=== PATIENT | male | born 1965 | race Caucasian/White ===

== ENCOUNTER 2023-03-11 08:32 | Outpatient (OUT) | payer BC, SELFPAY ==
[2023-03-12 10:59] LABS: PSA, Free 0.81 ng/mL
== END 2023-03-11 08:33 ==
LOC: LAB 08:36
PROVIDERS: PCP Family Medicine; Visit Provider Urology
DX: R97.20 Elevated prostate specific antigen [PSA] (principal)
CPT/HCPCS: 36415; 84402; 84403

== ENCOUNTER 2023-06-19 10:22 | Outpatient (OUT) | payer BC, SELFPAY ==
--- NOTE | 2023-06-19 10:28 | ECG_ITS ---
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
--- NOTE | 2023-06-19 10:54 | PM.PRESUREVA ---
History of Present Illness History of Present Illness Chief complaint: elevated PSA Narrative: Patient presents for preadmission testing. Please see HPI from Dr. Craig dated 06/08/2023. 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 He states he had a follow-up PET scan and there was a suspicious area on his prostate and he had an elevated PSA. Review of Systems ROS Narrative Please see ROS from Dr. Craig dated 06/08/2023. PFSH PFS Medical History (Updated 06/19/23 @ 10:38 by Amee Lu NP) Surgical History (Updated 06/19/23 @ 10:38 by Amee Lu NP) Family History (Updated 06/19/23 @ 10:38 by Amee Lu NP) Other Family history of hypertension Family history of prostate cancer Social History (Updated 06/19/23 @ 10:33 by Amee Lu NP) Within the past year, how often did you have a drink containing alcohol: 2-4 times a month Smoking status: Former smoker Highest level of school completed/degree received: high school graduate Meds Home Medications and Allergies Home Medications Medication Instructions Recorded Confirmed Type amlodipine 10 mg tablet 10 mg PO DAILY 06/19/23 06/19/23 History lisinopril 40 mg tablet 40 mg PO DAILY 06/19/23 06/19/23 History pravastatin 20 mg tablet 20 mg PO DAILY 06/19/23 06/19/23 History tamsulosin 0.4 mg capsule (Flomax) 0.4 mg PO DAILY 06/19/23 06/19/23 History Allergies Allergy/AdvReac Type Severity Reaction Status Date / Time No Known Drug Allergies Allergy Verified 06/19/23 10:29 Exam Narrative Exam Narrative: Constitutional: Awake, alert, comfortable, well-appearing, Very pleasant, nontoxic, interactive, vital signs as charted Head: Normocephalic, atraumatic Neck: Supple, normal appearance, normal range of motion, no meningeal signs, no lymphadenopathy Respiratory: No respiratory distress, breath sounds clear Cardiovascular: Regular rate and rhythm, strong and regular heart tones Abdomen: Nontender, normal bowel sounds, soft, no CVA tenderness Musculoskeletal: Normal gait, no swelling or edema Skin: No rashes or induration, no lesions, only visible skin inspected Neuro: No neurological deficits, normal sensation Psychiatric: Oriented ?3, normal affect Assessment and Plan Assessment and Plan (1) Elevated PSA: Plan MRI fusion transperineal prostate biopsy scheduled with Dr. Craig 06/28/2023.
[2023-06-19 11:30] LABS: Basophils Percent Auto 0.5 % (0.2-2.0); Eosinophils Absolute Auto 0.4 10^3/uL (0.0-0.7); Eosinophils Percent Auto 5.9 % (0.9-7.0); Hemoglobin 13.6 g/dL (14.0-18.0); Immature Granulocytes Abs Auto 0.01 10^3/uL (0.00-0.03); Immature Granulocytes Pct Auto 0.2 % (0.0-0.5); Lymphocytes Absolute Auto 0.9 10^3/uL (1.2-3.8); Lymphocytes Percent Auto 13.3 % (20.5-60.0); Mean Corpuscular Volume 85.3 fL (80.0-94.0); Mean Platelet Volume 8.8 fL (9.5-13.5); Monocytes Absolute Auto 0.6 10^3/uL (0.3-0.8); Neutrophils Absolute Auto 4.5 10^3/uL (1.4-6.5); Neutrophils Percent Auto 70.1 % (43.0-75.0); Platelet Count 181 10^3/uL (150-450); Red Blood Count 4.69 10^6/uL (4.70-6.10); Red Cell Distribution Width 13.7 % (11.0-15.0); White Blood Count 6.4 10^3/uL (4.0-11.0)
[2023-06-19 11:48] LABS: BUN Creatinine Ratio 18.7; Calcium 9.3 mg/dL (8.5-10.1); Carbon Dioxide 29.4 mmol/L (21.0-32.0); Chloride 102 mmol/L (98-107); Estimated GFR (African America >60 (>=60); Estimated GFR (Non-African Ame >60 (>=60); Glucose 94 mg/dL (74-106); Potassium 4.4 mmol/L (3.5-5.1); Sodium 135 mmol/L (136-145)
== END 2023-06-19 10:23 | disposition home or self-care (01) ==
PROVIDERS: PCP Family Medicine; Visit Provider Urology
DX: Z01.810 Encounter for preprocedural cardiovascular examination (principal); Z01.812 Encounter for preprocedural laboratory examination; R97.20 Elevated prostate specific antigen [PSA]; I10 Essential (primary) hypertension
CPT/HCPCS: 36415; 80048; 85025; 93005; G0463

== ENCOUNTER 2023-06-28 11:25 | Day surgery (SDC) | payer BC, SELFPAY ==
[2023-06-19 10:51] VITALS: BP 125/79; PULSE 63; RESP 18; TEMP 36.5; O2SAT 98; BMI 26.0
[2023-06-28] VITALS (8 sets, daily range): BP systolic 127–177; BP diastolic 73–107; PULSE 49–68; RESP 12–22; TEMP 36.1–36.5; O2SAT 98–100
[2023-06-28] MEDS: LACTATED RINGER'S SOLUTION 1,000 ML 50 ML IV (12:08)
[2023-06-28] MEDS: CEFAZOLIN SODIUM/DEXTROSE,ISO 2 GM/50 ML PIGGYBACK IV (13:11)
[2023-06-28] MEDS: LIDOCAINE HCL 1% 100 MG/10 ML MDV INJ (13:34)
[2023-06-28] MEDS: BACITRACIN OINTMENT 28.4 GM TUBE 1 APPLIC TOPICAL (13:53)
--- NOTE | 2023-06-28 14:02 | PM.URSON ---
Urology Surgery Operative Note Operative Note Procedure Date: 06/28/23 Time Out Performed: yes Pre-op Diagnosis: 1. Elevated PSA 2. Abnormal MRI Post-op Diagnosis: same as pre-op Procedures performed: 1. MRI fusion prostate biopsy, transperineal approach 2. Ultrasound for needle prostate biopsy, transperineal approach 3. Transrectal ultrasound of prostate and seminal vesicles 4. Nerve block of prostate Anesthesia: MAC (Dr. Burgos) Primary Surgeon: Norma Craig Complications: none Estimated blood loss (mL): 1 Findings: Scattered prostate calcifications, small cysts in the anterior and transition zones, as well as SV bases. No discrete hypoechoic lesions. CHRISTIANNE benign. Uneventful biopsy per below. Specimens: 1. Right posterior medial (2 cores) 2. Right posterior lateral (2 cores) 3. Right base (2 cores) 4. Right anterior lateral (2 cores) 5. Right anterior medial (2 cores) 6. Left anterior medial (2 cores) 7. Left anterior lateral (2 cores) 8. Left base (2 cores) 9. Left posterior lateral (2 cores) 10. Left posterior medial (2 cores) 11. TOLU 1- left peripheral zone (4 cores) Indications for Procedures: 58 year old male with history of elevated PSA 3.8, 16% free on 04/20/2022, repeat on 03/11/23 was 3.0, 27% free, PSA density 0.06. However MP-MRI prostate 05/16/23 showed PIRADS 4 lesion at the left peripheral zone, mid gland. Prostate volume 53 ml. CHRISTIANNE benign. After discussion of risks/benefits of management options and biopsy approaches, he elected to proceed with MRI fusion transperineal prostate biopsy. Risks were discussed to include but not limited to bleeding, pain, infection, damage to surrounding structures, hematuria, difficulty urinating, ecchymosis, swelling, injury from positioning, and need for additional procedures. Detailed description of Procedure: After informed consent was obtained, the patient was brought to the operating suite and transferred onto the operating table in supine position. Sequential compression devices were placed on bilateral lower extremities. He received the appropriate dose of preoperative IV antibiotics (Cefazolin 2 g) and MAC was induced. He was positioned in the dorsal lithotomy position with scrotum secured out of the perineum with tape, and the appropriate pressure points padded, prepped and draped in the usual fashion for this procedure. An operative timeout was performed confirming the patient's identity, procedure and safety checks. A digital rectal exam was performed noting mildly enlarged prostate, no firm nodules. The [employer] MRI fusion biopsy system was set up on the patient's right side for transperineal approach of prostate biopsy. A well lubricated biplane transrectal ultrasound probe was inserted into the rectum and the prostate was aligned. The gland was visualized fully in axial and sagittal views to allow for identification of anatomy, volume and location of the urethra as noted in findings. The skin followed by periprostatic local anesthetic lidocaine 1% was delivered. The Precision Point device was placed on the ultrasound probe for transperineal approach. After rendering of real-time images with the preoperative MRI prostate, the UroNav fusion biopsy system was used to target the region of interest. Four core needle biopsies were obtained from the region of interest. Thereafter two biopsies were obtained in a systematic fashion from 10 regions of the prostate including the medial and lateral aspects of the anterior and posterior prostate, as well as base of the right and left lobes. The ultrasound probe was removed and the perineum was cleaned and dressed with antibiotic ointment, fluffs and scrotal support. The patient was awakened from anesthesia and sent to PACU in stable condition. Plan: Void prior to discharge home. Follow up in 1-2 weeks for pathology review. Other Provider present: No Post Operative care instructions: see discharge instructions
--- NOTE | 2023-06-28 14:20 | PC.NURSE ---
has mesh panties on over dressing; no drainage
--- NOTE | 2023-06-28 14:26 | PC.NURSE ---
Voided clear yellow urine in urinal; c/o burning and urgency
--- NOTE | 2023-06-28 14:38 | PC.NURSE ---
scant amount pinish/ red drainage noted on rectal dressing
--- NOTE | 2023-06-28 15:07 | PC.NURSE ---
4X4'S AND CLEAN MESH PANTIES ON; NO ACTIVE DRAINAGE NOTED
== END 2023-06-28 15:09 | disposition home or self-care (01) ==
PROVIDERS: PCP Family Medicine; Visit Provider Urology
PROC: (CPT 55700; principal; 2023-06-28 12:30)
DX: R97.20 Elevated prostate specific antigen [PSA] (principal); I10 Essential (primary) hypertension; Z87.891 Personal history of nicotine dependence; N40.1 Benign prostatic hyperplasia with lower urinary tract symptoms; E78.5 Hyperlipidemia, unspecified; R35.1 Nocturia; R39.12 Poor urinary stream; Z80.42 Family history of malignant neoplasm of prostate; H91.90 Unspecified hearing loss, unspecified ear; R31.21 Asymptomatic microscopic hematuria; Z85.89 Personal history of malignant neoplasm of other organs and systems
CPT/HCPCS: 55700; 36415; 88305; J2704

== ENCOUNTER 2023-08-11 08:30 | Outpatient (OUT) | payer BC, SELFPAY ==
[2023-08-11 08:55] LABS: Basophils Percent Auto 0.6 % (0.2-2.0); Eosinophils Absolute Auto 0.3 10^3/uL (0.0-0.7); Eosinophils Percent Auto 5.8 % (0.9-7.0); Hematocrit 42.3 % (42.0-54.0); Hemoglobin 14.5 g/dL (14.0-18.0); Immature Granulocytes Abs Auto 0.01 10^3/uL (0.00-0.03); Immature Granulocytes Pct Auto 0.2 % (0.0-0.5); Lymphocytes Percent Auto 20.7 % (20.5-60.0); Mean Corpuscular HGB Conc 34.3 g/dL (29.9-35.2); Mean Corpuscular Hemoglobin 29.5 pg (25.9-34.0); Mean Corpuscular Volume 86.2 fL (80.0-94.0); Mean Platelet Volume 8.2 fL (9.5-13.5); Monocytes Absolute Auto 0.5 10^3/uL (0.3-0.8); Monocytes Percent Auto 11.4 % (1.7-12.0); Neutrophils Absolute Auto 2.8 10^3/uL (1.4-6.5); Neutrophils Percent Auto 61.3 % (43.0-75.0); Platelet Count 166 10^3/uL (150-450); Red Blood Count 4.91 10^6/uL (4.70-6.10); Red Cell Distribution Width 12.6 % (11.0-15.0); White Blood Count 4.6 10^3/uL (4.0-11.0)
[2023-08-11 09:52] LABS: Estimated Average Glucose 100 mg/dL; Glycohemoglobin A1C 5.1 % (4.5-6.2)
[2023-08-11 10:45] LABS: Alanine Aminotransferase 27 U/L (16-63); Albumin Globulin Ratio 1.3; Albumin Level 4.2 g/dL (3.4-5.0); Alkaline Phosphatase 72 U/L (46-116); Anion Gap 11.6; Aspartate Amino Transferase 16 U/L (15-37); BUN Creatinine Ratio 16.3; Bilirubin Total 0.7 mg/dL (0.2-1.0); Calcium 9.3 mg/dL (8.5-10.1); Carbon Dioxide 28.5 mmol/L (21.0-32.0); Chloride 103 mmol/L (98-107); Chol HDL Ratio 2.8; Cholesterol 188 mg/dL (<=200); Estimated GFR (African America >60 (>=60); Estimated GFR (Non-African Ame 57 (>=60); Globulin 3.3 g/dL; Glucose 96 mg/dL (74-106); HDL Cholesterol 67 mg/dL (40-60); Potassium 4.1 mmol/L (3.5-5.1); Sodium 139 mmol/L (136-145); Total Protein 7.5 g/dL (6.4-8.2); Triglycerides 64 mg/dL (<=150); VLDL CHOLESTEROL 12.8 mg/dL
[2023-08-11 11:02] LABS: Prostate Specific Antigen Scrn 3.97 ng/mL (<=4.00)
== END 2023-08-11 08:31 | disposition home or self-care (01) ==
PROVIDERS: PCP Family Medicine; Visit Provider Family Medicine
DX: R53.83 Other fatigue (principal); Z79.899 Other long term (current) drug therapy; E78.5 Hyperlipidemia, unspecified; R73.09 Other abnormal glucose; Z12.5 Encounter for screening for malignant neoplasm of prostate
CPT/HCPCS: 36415; 80053; 80061; 83036; 85025; G0103

== ENCOUNTER 2024-06-01 09:04 | Outpatient (OUT) | payer OTHER, SELFPAY ==
--- OUTSIDE RECORDS SUMMARY | 2024-06-01 09:11 | XMS_ITS | CCD ---
Author Organization [facility] Care Team Providers Care [employer] Bi Consultant Name Role Phone Naty Burton Primary Care Physician Naty Burton MD Primary Care Provider [phone] Demi CHEN, Yadi Unavailable Rian ROUSSEAU, Chiqui Oneill Unavailable Indio KELLEY, Elizabeth Unavailable Jason VICK, Vanesa Dowling Unavailable July Vanessa Unavailable Unavailable JOSEPHINE ., DR ALFONSO Attending Unavailable HOY ., DR ALFONSO Admitting Unavailable HOY ., DR ALFONSO Primary Care Unavailable HOY ., DR ALFONSO Consulting Unavailable WEST, DR FRANCINE Moran Consulting Unavailable HOY ., DR ALFONSO Consulting Unavailable HOY ., DR ALFONSO Attending Unavailable HOY ., DR ALFONSO Admitting Unavailable HOY ., DR ALFONSO Primary Care Unavailable MARCO ANTONIO Longoria, DR NICOLA Tran Attending Unavaila scooby Longoria, DR NICOLA Tran Admitting Unavaila scooby Longoria, DR NICOLA Tran Consulting Unavaila ble HOEdgar ., DR ALFONSO Primary Care Unavailable TIMMIS, DR KEDNALL Admitting Unavailable TIMMIS, DR KENDALL Consulting Unavailable TIMMIS, DR KENDALL Attending Unavailable HOY ., DR ALFONSO Primary Care Unavailable ZISANTANA, DR JULIO Gay Consulting Unavailable HOY ., DR ALFONSO Attending Unavailable HOY ., DR ALFONSO Admitting Unavailable HOY ., DR ALFONSO Primary Care Unavailable HOY ., DR ALFONSO Consulting Unavailable WEST, DR FRANCINE Moran Consulting Unavailable TIMMIS, DR KENDALL Consulting Unavailable TIMMIS, DR KENDALL Attending Unavailable TIMMIS, DR KENDALL Admitting Unavailable HOY ., DR ALFONSO Primary Care Unavailable LIZETT MILLER Consulting Unavailable PJ BARDALES Consulting Unavailable Naty Burton MD Primary Care Provider [phone] Naty Burton MD Primary Care Provider [phone] Galo CHEN, Yadi Unavailable [phone] MD Lee Esposito Attending Provider MD Naty Burton Primary Care Provider [phone] Galo CHEN, Yadi Unavailable [phone] Rian ROUSSEAU, Chiqui Oneill Unavailable Norma Craig Attending Unavailable Lue, Norma MVon Attending Unavailable LueNorma MVon Attending Unavailable LueNorma MVon Attending Unavailable LueNorma MVon Attending Unavailable Norma Craig Attending Unavailable Naty Burton MD Primary Care Provider [phone] Naty Burton MD Primary Care Provider [phone] MD Naty Burton Primary Care Provider [phone] NICANOR Gomez Attending Provider Vanesa Gomez Admitting Unavailable Vanesa Gomez Attending Unavailable Josephine, Naty M Primary Care Unavailable Lee Esposito Admitting Unavailable Lee Esposito Attending Unavailable Josephine, Naty M Primary Care Unavailable TIMMIS, ENOCH H Attending Unavailable TIMMIS, ENOCH H Attending Unavailable TIMMIS, ENOCH H Attending Unavailable TIMMIS, ENOCH H Attending Unavailable TIMMIS, ENOCH H Attending Unavailable TIMMIS, ENOCH H Attending Unavailable TIMMIS, ENOCH H Attending Unavailable TIMMIS, ENOCH H Attending Unavailable JOSEPHINE, NATY M Primary Care Unavailable KARAMLOU, ELIZABETH Referring Unavailable VANESA GOMEZ Attending Unavailable JOSEPHINE, NATY M Primary Care Unavailable KARAMLOU, ELIZABETH Referring Unavailable HOEdgar, NATY M Primary Care Unavailable TOM MEDINA Attending VANESA Lott Referring Unavailable JOSEPHINE, NATY M Primary Care Unavailable KARAMLOU, ELIZABETH Referring Unavailable VANESA GOMEZ Attending Unavailable KARAMLOU, ELIZABETH Attending Unavailable KARAMLOU, ELIZABETH Referring Unavailable HOY, NATY M Primary Care Unavailable KARAMLOU, ELIZABETH Referring Unavailable HOY, NATY M Primary Care Unavailable HOY, NATY M Primary Care Unavailable KARAMLOU, ELIZABETH Referring Unavailable CELESTINA HALLMAN Attending Unavailable HOY, NATY M Primary Care Unavailable KARAMLOU, ELIZABETH Referring Unavailable HOY, NATY M Primary Care Unavailable HOY, NATY M Primary Care Unavailable KARAMLOU, ELIZABETH Referring Unavailable HOY, NATY M Primary Care Unavailable KARAMLOU, ELIZABETH Referring Unavailable HOY, NATY M Primary Care Unavailable HOY, NATY M Primary Care Unavailable JASON, VANESA M Referring Unavailable HOY, NATY M Primary Care Unavailable KARAMLOU, ELIZABETH Referring Unavailable KARAMLOU, ELIZABETH Attending Unavailable HOY, NATY M Primary Care Unavailable KARAMLOU, ELIZABETH Referring Unavailable LOW, SEE-JEYSON Attending Unavailable LOW, SEE-JEYSON Admitting Unavailable HOY, NATY M Primary Care Unavailable LOW, SEE-JEYSON Referring Unavailable HOY, NATY M Primary Care Unavailable HOY, NATY M Primary Care Unavailable KARAMLOU, ELIZABETH Attending Unavailable HOY, NATY M Primary Care Unavailable KARAMLOU, ELIZABETH Referring Unavailable HOY, NATY M Primary Care Unavailable HOY, NATY M Primary Care Unavailable KARAMLOU, ELIZABETH Attending Unavailable KARAMLOU, ELIZABETH Referring Unavailable HOY, NATY M Primary Care Unavailable KARAMLOU, ELIZABETH Referring Unavailable HOY, NATY M Primary Care Unavailable RAS STARR Referring Unavailable HOY, NATY M Primary Care Unavailable HOY, NATY M Primary Care Unavailable HOY, NATY M Primary Care Unavailable KARAMLOU, ELIZABETH Attending Unavailable KARAMLOU, ELIZABETH Referring Unavailable HOY, NATY M Primary Care Unavailable KARAMLOU, ELIZABETH Referring Unavailable HOY, NATY M Primary Care Unavailable KARAMLOU, ELIZABETH Referring Unavailable HOY, NATY M Primary Care Unavailable Nino ESPOSITO Attending Unavailable HOY, NATY M Primary Care Unavailable HOY, NATY M Primary Care Unavailable KARAMLOU, ELIZABETH Referring Unavailable HOY, NATY M Primary Care Unavailable KARAMLOU, ELIZABETH Referring Unavailable HOY, NATY M Primary Care Unavailable KARAMLOU, ELIZABETH Referring Unavailable HOY, NATY M Primary Care Unavailable HOY, NATY M Primary Care Unavailable SUYAPAIRAU, ELIZABETH Attending Unavailable SUYAPALOU, ELIZABETH Referring Unavailable LOW, SHAZIA-JEYSON Referring Unavailable HOY, NATY M Primary Care Unavailable CARISSA REYES Attending Unavailable HOY, NATY M Primary Care Unavailable KARAMLOU, ELIZABETH Referring Unavailable HOY, NATY M Primary Care Unavailable KARAMLOU, ELIZABETH Referring Unavailable HOY, NATY M Primary Care Unavailable KAROLINA CATALAN Attending Unavailable RAS STARR Admitting Unavailable RAS STARR Attending Unavailable HOY, NATY M Primary Care Unavailable Allergies Allergy Classification Reported Allergen(s) Allergy Type Date of Onset Reaction(s) Facility (1 source) No Known Medication Allergies; Translations: [No Known Medication Allergies] Propensity to adverse reactions (disorder) [facility] Repository Medications Current Medications Medication Drug Class(es) Dates Sig (Normalized) Sig (Original) amLODIPine 10 mg oral tablet (20 sources) Dihydropyridine Calcium Channel Magi Start: 11-27-2022 take 1 tablet by mouth once daily amLODIPine (NORVASC) 10 mg tablet Take 10 mg by mouth once daily. 11/27/2022 Active Start: 11-04-2022 End: 12-21-2022 take 2 tablets by mouth once daily amLODIPine (NORVASC) 5 mg tablet Take 10 mg by mouth once daily. 0 11/04/2022 12/21/2022 Discontinued Comment on above: Take 10 mg by mouth once daily. enteric contrast (will be provided with radiology test) (2 sources) Start: 2023 End: 2023 enteric contrast (will be provided with radiology test) For CT CHESTABD/PEL W IVCON Routine order Administer, As Directed One Time Only, via Oral, Rectal, both Oral and Rectal, Enteric Tube, Stoma or Indwelling Catheter, Enteric Contrast as designated per enteric contrast guidelines 1 Each 0 03/26/2024 03/27/2024 Active hydrocortisone 5 mg oral tablet (10 sources) Corticosteroid Start: 2023 hydrocortisone (CORTEF) 5 mg tablet Take 10 mg upon waking in the morning and 5 mg at night (4-6 hours before bed) 90 tablet 2 03/28/2024 Active ibuprofen 200 mg oral tablet (20 sources) Nonsteroidal Anti-inflammatory Drug take 1 tablet by mouth every six hours as needed ibuprofen (MOTRIN) 200 mg tablet Take 200 mg by mouth every 6 hours as needed. Active Comment on above: Take 200 mg by mouth every 6 hours as needed. iv contrast (will be provided with radiology test) (6 sources) Start: 2023 End: 2023 inject 1 dose intravenously once iv contrast (will be provided with radiology test) MRI Brain Inject, intravenously, once for 1 dose.No IV access, insert saline lock prior to beginning of sedation, infusion, injection of imaging exam.Discontinue saline lock post exam. If Pt. has a central line or IVAD, may access for administration according to line specific nursing protocol.Once exam is complete flush line and de-access according to line specific nursing protocol in the MR contrast administration guidelines link 1 Each 0 03/26/2024 03/27/2024 Active Start: 03-26-2024 End: 03-27-2024 iv contrast (will be provide d with radiology test) CT Chest ABD/PEL-Inject, intravenously, once for 1 dose.No IV access, insert saline lock prior to the beginning of sedation, infusion, injection of imaging exam. Discontinue saline lock post exam. If Pt. has a central line or IVAD, may access for administration according to line specific nursing protocol. Once exam is complete flush line and de-access according to line specific nursing protocol in the CT contrast administration guidelines link. 1 Each 0 03/26/2024 03/27/2024 Active Start: 11-14-2023 End: 11-15-2023 iv contrast (will be provide d with radiology test) CT Chest W -Inject, intravenously, once for 1 dose.No IV access, insert saline lock prior to the beginning of sedation, infusion, injection of imaging exam. Discontinue saline lock post exam. If Pt. has a central line or IVAD, may access for administration according to line specific nursing protocol. Once exam is complete flush line and de-access according to line specific nursing protocol in the CT contrast administration guidelines link. 1 Each 0 11/14/2023 11/15/2023 Active Start: 04-18-2023 End: 04-19-2023 iv contrast (will be provide d with radiology test) MRI Prostate Inject, intravenously, once for 1 dose. No IV access, insert saline lock prior to the beginning of sedation, infusion, injection of imaging exam. Discontinue saline lock post exam. If Pt. has a central line or IVAD, may access for administration according to line specific nursing protocol. Once exam is complete flush line and de-access according to line specific nursing protocol in the MR contrast administration guidelines link. 1 Each 0 04/18/2023 04/19/2023 Comment on above: MRI Prostate Inject, intravenously, once for 1 dose. No IV access, insert saline lock prior to the beginning of sedation, infusion, injection of imaging exam. Discontinue saline lock post exam. If Pt. has a central line or IVAD, may access for administration according to line specific nursing protocol. Once exam is complete flush line and de-access according to line specific nursing protocol in the MR contrast administration guidelines link. CT Chest W -Inject, intravenously, once for 1 dose.No IV access, insert saline lock prior to the beginning of sedation, infusion, injection of imaging exam. Discontinue saline lock post exam. If Pt. has a central line or IVAD, may access for administration according to line specific nursing protocol. Once exam is complete flush line and de-access according to line specific nursing protocol in the CT contrast administration guidelines link. levothyroxine sodium 0.05 mg oral tablet (17 sources) l-Thyroxine Start: 12-13-19 24 End: 03-12-20 24 take 1 tablet by mouth once daily levothyroxine (SYNTHROID) 50 mcg tablet TAKE 1 TABLET BY MOUTH EVERY DAY 90 tablet 1 01/04/2024 Active Comment on above: Take 1 tablet by rudy once daily. lisinopril 40 mg oral tablet (20 sources) Angiotensin Converting Enzyme Inhibitor Start: 12-18-19 21 take 1 tablet by mouth once daily lisinopril (ZESTRIL, PRINIVIL) 40 mg tablet Take 40 mg by mouth once daily. 12/17/2020 Active Comment on above: Take by mouth. Take 40 mg by mouth once daily. ondansetron 8 mg oral tablet (20 sources) Serotonin-3 Receptor Antagonist Start: 09-29-20 23 take 1 tablet by mouth every eight hours as needed ondansetron (ZOFRAN) 8 mg tablet Take 1 tablet by mouth every 8 hours as needed for nausea/vomiting. 90 tablet 2 09/29/2023 Active Start: 11-03-2022 End: 01-27-2023 take 1 tablet by mouth every eight hours as needed ondansetron (ZOFRAN) 8 mg tablet Take 1 tablet by mouth every 8 hours as needed for nausea/vomiting. 90 tablet 2 11/03/2022 01/27/2023 Discontinued (Discontinued by Patient) Comment on above: Take 1 tablet by rudy th every 8 hours as needed for nausea/vomiting. pravastatin sodium 20 mg oral tablet (20 sources) HMG-CoA Reductase Inhibitor Start: 2020 take 1 tablet by mouth once daily pravastatin (PRAVACHOL) 20 mg tablet Take 20 mg by mouth once daily. 12/17/2020 Active Comment on above: Take by mouth. Take 20 mg by mouth once daily. prochlorperazine 10 mg oral tablet (20 sources) Phenothiazine Start: 2022 take 1 tablet by mouth every six hours as needed prochlorperazine (COMPAZINE) 10 mg tablet Take 1 tablet by mouth every 6 hours as needed. 100 tablet 2 09/29/2023 Active Start: 11-03-2022 End: 01-27-2023 take 1 tablet by mouth every six hours as needed prochlorperazine (COMPAZINE) 10 mg tablet Take 1 tablet by mouth every 6 hours as needed. 100 tablet 2 11/03/2022 01/27/2023 Discontinued (Discontinued by Patient) Comment on above: Take 1 tablet by rudy th every 6 hours as needed. tamsulosin hydrochloride 0.4 mg oral capsule (20 sources) alpha-Adrenergic Magi Start: 03-17-2023 tamsulosin (FLOMAX) 0.4 mg Take 0.4 mg by mouth. 03/17/2023 Active take 1 capsule by mo [facility] every twenty-four hours in the morning tamsulosin (Flomax) 0.4 MG 24 hr capsule Take 0.4 mg by mouth in the morning. 0 Active Comment on above: Take 0.4 mg by mouth . Completed/Discontinued Medications Medication Drug Class(es) Dates Sig (Normalized) Sig (Original) acetaminophen 500 mg oral tablet (8 sources) End: 11-03-2022 take 2 tablets by mouth every six hours as needed acetaminophen (TYLENOL) 500 mg tablet Take 1,000 mg by mouth every 6 hours as needed. 0 11/03/2022 Discontinued Comment on above: Take 1,000 mg by rudy th every 6 hours as needed. acetaminophen 21.7 mg/ml / HYDROcodone bitartrate 0.5 mg/ml oral solution (20 sources) Opioid Agonist Start: 01-02-2023 End: 01-27-2023 take 10 mL by mouth every six hours as needed for pain HYDROcodone-acetami nophen (HYCET) 7.5-325 mg/15 mL oral liquid Indications: Oropharnyx cancer (HCC) , Cancer related pain Take 10 mL by mouth every 6 hours as needed for pain. Take with stool softener. 300 mL 0 01/02/2023 01/27/2023 Discontinued (Discontinued by another Health Care Provider) Start: 11-14-2022 End: 01-13-2023 take 1 tablet by mouth every eight hours as needed for pain HYDROcodone-acetaminophen (NORCO) 5-325 mg per tablet Indications: Oropharnyx cancer (HCC) Take 1 tablet by mouth every 8 hours as needed for pain. 16 tablet 0 11/14/2022 01/13/2023 Discontinued Comment on above: Take 1 tablet by rudy th every 8 hours as needed for pain. Take 10 mL by mouth every 6 hours as needed for pain. Take with stool softener. diphenhydrAMINE 12.5 mg/5 mL lidocaine visc 2% MAALOX 200-200-20 mg/5 mL nystatin prednisoLONE 15 mg/5 mL oral liquid 1:1:1:1:1 (CPD) (20 sources) Start: End: take 10 mL by mouth every six hours as needed diphenhydrAMINE 12.5 mg/5 mL lidocaine visc 2% MAALOX 200-200-20 mg/5 mL nystatin prednisoLONE 15 mg/5 mL oral liquid 1:1:1:1:1 (CPD) Swish and swallow 10 mL by mouth every 6 hours as needed. 300 mL 1 01/09/2023 01/27/2023 Discontinued (Discontinued by Patient) Start: 01-09-2023 take 10 mL by mouth every six hours as needed diphenhydrAMINE 12.5 mg/5 mL lidocaine visc 2% MAALOX 200-200-20 mg/5 mL nystatin prednisoLONE 15 mg/5 mL oral liquid 1:1:1:1:1 (CPD) Swish and swallow 10 mL by mouth every 6 hours as needed. 300 mL 1 01/09/2023 Active Start: 12-21-2022 End: 01-07-2023 take 10 mL by mouth every six hours as needed diphenhydrAMINE 12.5 mg/5 mL lidocaine visc 2% MAALOX 200-200-20 mg/5 mL nystatin prednisoLONE 15 mg/5 mL oral liquid 1:1:1:1:1 (CPD) Take 10 mL by mouth every 6 hours as needed. Swish and swallow 300 mL 1 12/21/2022 01/07/2023 Discontinued Start: 12-21-2022 take 10 mL by mouth every six hours as needed diphenhydrAMINE 12.5 mg/5 mL lidocaine visc 2% MAALOX 200-200-20 mg/5 mL nystatin prednisoLONE 15 mg/5 mL oral liquid 1:1:1:1:1 (CPD) Take 10 mL by mouth every 6 hours as needed. Swish and swallow 300 mL 1 12/21/2022 Active Start: 12-07-2022 End: 12-21-2022 take 10 mL by mouth every six hours as needed diphenhydrAMINE 12.5 mg/5 mL lidocaine visc 2% MAALOX 200-200-20 mg/5 mL nystatin prednisoLONE 15 mg/5 mL oral liquid 1:1:1:1:1 (CPD) Take 10 mL by mouth every 6 hours as needed. Swish and swallow 300 mL 1 12/07/2022 12/21/2022 Discontinued Start: 12-07-2022 take 10 mL by mouth every six hours as needed diphenhydrAMINE 12.5 mg/5 mL lidocaine visc 2% MAALOX 200-200-20 mg/5 mL nystatin prednisoLONE 15 mg/5 mL oral liquid 1:1:1:1:1 (CPD) Take 10 mL by mouth every 6 hours as needed. Swish and swallow 300 mL 1 12/07/2022 Active Comment on above: Take 10 mL by mouth every 6 hours as needed. Swish and swallow Swish and swallow 10 mL by mouth every 6 hours as needed. doxazosin 4 mg oral tablet (20 sources) alpha-Adrenergic Magi Start: 08-30-2022 End: 04-18-2023 take 1 tablet by mouth once daily doxazosin (CARDURA) 4 mg tablet Take 4 mg by mouth once daily. 0 08/30/2022 04/18/2023 Discontinued (Changing Therapy/Dosage Form) Start: 08-24-2021 doxazosin 4 mg Tab 4 mg = 1 tab(s), Refills(s) 0 Start Date: 08/24/21 Status: Ordered Comment on above: Take 4 mg by mouth o nce daily. NaCl 0.9% 500 mL (1 source) Start: 03-26-2024 End: 03-26-2024 NaCl 0.9% 500 mL pembrolizumab 400 mg in NaCl 0.9% 74 mL (KEYTRUDA) (3 sources) Start: 05-08-2024 End: 05-08-2024 pembrolizumab 400 mg in NaCl 0.9% 74 mL (KEYTRUDA) Start: 03-26-2024 End: 03-26-2024 pembrolizumab 400 mg in NaCl 0.9% 74 mL (KEYTRUDA) Start: 02-13-2024 End: 02-13-2024 pembrolizumab 400 mg in NaCl 0.9% 74 mL (KEYTRUDA) Problems Active Problems Problem Classification Problem Date Documented Date Episodic/Chronic Cancer of head and neck (20 sources) Malignant tumor of oropharynx; Translations: [Malignant neoplasm of oropharynx, unspecified] Onset: 10-16-2022 Chronic Chronic kidney disease (6 sources) Chronic kidney disease stage 3; Translations: [Stage 3 chronic kidney disease, unspecified whether stage 3a or 3b CKD (HCC)] Onset: 05-14-2024 05-14-2024 Chronic Disorders of lipid metabolism (11 sources) Hyperlipidemia; Translations: [Hyperlipidemia, unspecified] Onset: 04-09-2023 Resolved: 04-09-2023 12-22-2020 Chronic Esophageal disorders (2 sources) Esophagitis; Translations: [Esophagitis] Episodic Essential hypertension (12 sources) Hypertensive disorder; Translations: [Essential (primary) hypertension] Onset: 10-28-2022 12-17-2020 Chronic Headache; including migraine (4 sources) Thunderclap headache; Translations: [Primary thunderclap headache] Onset: 03-26-2024 03-26-2024 Episodic Lymphadenitis (4 sources) Lymphadenopathy; Translations: [Enlarged lymph nodes, unspecified] Onset: 05-16-2024 05-13-2024 Episodic Malaise and fatigue (6 sources) Malaise and fatigue; Translations: [Other malaise] Onset: 03-26-2024 09-22-2023 Episodic Nutritional deficiencies (20 sources) Deficiency of macronutrients; Translations: [Unspecified severe protein-calorie malnutrition] Onset: 12-19-2022 Resolved: 04-09-2023 Chronic Other diseases of kidney and ureters (1 source) Urinary tract obstruction; Translations: [Other obstructive and reflux uropathy] Onset: 06-10-2022 Episodic Other ear and sense organ disorders (5 sources) Hearing loss; Translations: [Unspecified hearing loss, unspecified ear] Onset: 04-09-2023 12-22-2020 Chronic Other endocrine disorders (7 sources) Hypoadrenalism; Translations: [Unspecified adrenocortical insufficiency] Onset: 05-14-2024 05-10-2024 Chronic Other endocrine disorders (1 source) Unspecified adrenocortical insufficiency; Translations: [Adrenal insufficiency (HCC)] Onset: 05-10-2024 Chronic Other lower respiratory disease (5 sources) Nodule of lung; Translations: [Solitary pulmonary nodule] 08-03-2023 Episodic Other nervous system disorders (1 source) Pain due to neoplastic disease; Translations: [Neoplasm related pain (acute) (chronic)] Chronic Other skin disorders (4 sources) Localized swelling, mass and lump, neck; Translations: [LOCALIZED SWELLING MASS AND LUMP NECK] Onset: 09-26-2022 Episodic Residual codes; unclassified (3 sources) Family history of cancer; Translations: [Family history of malignant neoplasm of prostate] Onset: 06-10-2022 Episodic Screening and history of mental health and substance abuse codes (6 sources) Ex-smoker; Translations: [Personal history of nicotine dependence] Onset: 05-14-2024 05-14-2024 Episodic Secondary malignancies (1 source) Secondary and unspecified malignant neoplasm of lymph nodes of head, face and neck; Translations: [SEC AND UNS MAL MARIA DE JESUS NODES HEAD AND NCK] Onset: 10-28-2022 Chronic Secondary malignancies (3 sources) Metastasis to head and neck lymph node; Translations: [Secondary and unspecified malignant neoplasm of lymph nodes of head, face and neck] Onset: 02-24-2023 02-24-2023 Chronic Substance-related disorders (1 source) Nicotine dependence, cigarettes, uncomplicated; Translations: [NICOTINE DEPEND CIGARETTES UNCOMP] Onset: 10-28-2022 Chronic Thyroid disorders (7 sources) Acquired hypothyroidism; Translations: [Hypothyroidism, unspecified] Onset: 05-14-2024 05-10-2024 Chronic Unclassified (3 sources) Asymptomatic microscopic hematuria 08-24-2021 Unclassified (1 source) CONTACT W/AND (SUSP) EXPOS COVID-19; Translations: [CONTACT W/AND (SUSP) EXPOS COVID-19] Onset: 10-16-2022 Unclassified (1 source) Encounter for observation for other suspected diseases and conditions ruled out; Translations: [Encounter for observation for other suspected diseases and conditions ruled out] Onset: 05-16-2023 Past or Other Problems Problem Classification Problem Date Documented Da te Episodic/Chronic Genitourinary symptoms and ill-defined conditions (10 sources) Nocturia; Translations: [Poor stream of urine] Onset: 04-09-2023 Resolved: 04-09-2023 06-10-2022 Episodic Hyperplasia of prostate (9 sources) Benign prostatic hypertrophy with outflow obstruction; Translations: [Benign prostatic hyperplasia with lower urinary tract symptoms] Onset: 04-21-2022 Resolved: 04-09-2023 Chronic Neoplasms of unspecified nature or uncertain behavior (2 sources) Neoplasm of lung ; Translations: [Neoplasm of unspecified behavior of respiratory system] Onset: 09-22-2023 09-06-2023 Episodic Osteoarthritis (5 sources) Arthritis; Translations: [Unspecified osteoarthritis, unspecified site] Onset: 04-09-2023 Resolved: 04-09-2023 12-22-2020 Chronic Other and unspecified benign neoplasm (5 sources) Adenomatous polyp of colon ; Translations: [Benign neoplasm of colon, unspecified] Onset: 04-09-2023 Resolved: 04-09-2023 12-17-2020 Episodic Other ear and sense organ disorders (2 sources) Acute otitis externa; Translations: [Swimmer's ear, right ear] Onset: 05-12-2023 05-12-2023 Episodic Other lower respiratory disease (1 source) Solitary pulmonary nodule; Translations: [Pulmonary nodule] Onset: 08-24-2023 Episodic Other screening for suspected conditions (not mental disorders or infectious disease) (15 sources) Raised prostate specific antigen; Translations: [Elevated prostate specific antigen [PSA]] Onset: 04-20-2022 Resolved: 04-09-2023 Episodic Other skin disorders (2 sources) Mass of neck; Translations: [Localized swelling, mass and lump, neck] Onset: 02-24-2023 Resolved: 02-24-2023 02-24-2023 Episodic Other upper respiratory disease (1 source) Other diseases of bronchus, not elsewhere classified; Translations: [Bronchiolar disease] Onset: 08-30-2023 Episodic Residual codes; unclassified (6 sources) Family history of prostate cancer; Translations: [Family history of malignant neoplasm of prostate] Onset: 04-09-2023 Resolved: 04-09-2023 08-24-2021 Episodic Residual codes; unclassified (1 source) Family history of malignant neoplasm of prostate; Translations: [FAMILY HX MALIG NEOPLASM PROSTATE] Onset: 04-21-2022 Episodic Results Test Name Value Interpretation Reference Range Facil ity ANES POSTPROC EVALon 024 ANES POSTPROC EVAL HNO ID: [id number] Author: SHAUN SCHWAB MD Service: ? Author Type: Physician Type: Anesthesia Postprocedure Evaluation Filed: 05/21/2024 15:20 Note Text: POST ANESTHESIA EVALUATION NOTE : 1965 Procedure Summary Date: 05/21/24 Room / Location: [facility] / [facility] Anesthesia Start: 1041 Anesthesia Stop: 1141 Procedure: BRONCHOSCOPY,RIGID/FLEX IBLE W/ FLUORO,W/ENDOBRONCHIAL ULTRASOUND (EBUS) GUIDED TRANSTRACHEAL/ TRANSBRONCHIAL ASPIRATION/BIOPSY,1 OR 2 MEDIASTINAL AND/OR HILAR LYMPH NODE STATIONS/STRUCTURES (Bronchus) Diagnosis: Adenopathy (Adenopathy [R59.9]) Surgeons: Ras Starr MD Responsible Provider: Shaun Schwab MD Anesthesia Type: general ASA Status: 3 Anesthesia Type: general Airway Type: ETT Last Vitals Vitals Value Taken Time BP 168/96 05/21/24 1209 Temp 36 ?C (96.8 ?F) 05/21/24 1209 HR SpO2 50 05/21/24 1204 Resp 18 08/13/24 1209 SpO2 100 % 05/21/24 1209 Vitals shown include unfiled device data. Post Anesthesia Patient Status Patient Evaluation: PACU. PACU/ICU Patient Condition: stable. Anticipated Disposition: phase 2 then home. Neurological Status: aware and responsive. Pulmonary Status: breathing comfortably on room air Airway Control: returned to baseline unsupported. Cardiovascular Status: stable. Pain Management: clinically adequate Postoperative Hydration: acceptable. Intraoperative Events: no significant anesthesia events Post Operative Nausea/Vomiting Status: no significant post operative nausea or vomiting Recommendation: continue current plan of care. Anesthesia Observations No Documentation SIGNATURE: Shaun Schwab MD PATIENT NAME: Caitlin Elmore DATE: May 21, 2024 TIME: 3:19 PM CSN: [id number] [facility] ANES PRE-OPon 05-21-2024 ANES PRE-OP HNO ID: [id number] Author: SHAUN SCHWAB MD Service: ? Author Type: Physician Type: Anesthesia Preprocedure Evaluation Filed: 05/21/2024 09:55 Note Text: ANESTHESIOLOGY DAY OF SURGERY NOTE : 1965 Procedure Information Date/Time: 05/21/24 1030 Procedure: BRONCHOSCOPY,RIGID/FLEX IBLE W/ FLUORO,W/ENDOBRONCHIAL ULTRASOUND (EBUS) GUIDED TRANSTRACHEAL/ TRANSBRONCHIAL ASPIRATION/BIOPSY,1 OR 2 MEDIASTINAL AND/OR HILAR LYMPH NODE STATIONS/STRUCTURES (Bronchus) [facility] Surgeons: Ras Starr MD Estimated body mass index is 29.01 kg/m? as calculated from the following: Height as of 05/14/24: 180.3 cm (5' 11 ). Weight as of 05/14/24: 94.3 kg (208 lb). Most recent hematocrit and potassium results: Hematocrit 43.7 05/08/2024 Potassium 4.4 05/08/2024 Relevant Problems No relevant active problems I - PHYSICAL EVALUATION AIRWAY Patient intubated: No. Tracheostomy tube not present Mallampati: II. TM distance: <3 FB. Neck ROM: full ROM without neurological symptoms. Mouth opening: adequate. Short neck: no. Thick neck: no DENTAL Dental findings: teeth intact, missing tooth/teeth and chipped. Additional exam findings: no II - ANESTHESIA PLAN ASA Score: 3 Anesthetic Plan: general Airway type: ETT The patient is not a current smoker. NPO Status: adequate Anesthetic plan additional comments: Patient had radiation to neck and decreased TO distance. Unsure if intubated with benton or flexible scope in past. Discussed poss difficult intubation.. Beta Magi Administration of chronic beta magi medication not planned. Reasons for not administering beta magi perioperatively: other Monitoring Plan Monitoring plan: standard ASA. Post Procedure Analgesic Plan Postoperative analgesic plan: parenteral or oral opioids. Informed Consent Anesthetic risks, benefits, alternatives, personnel and consent discussed: yes. Patient / Responsible Constitution Party agrees to proceed: yes Patient / Surrogate agrees to blood products: Yes DNR status not reviewed with patient and/or family prior to surgery. Significant changes in the patient condition since the History and Physical, not otherwise documented in primary service progress note: no. Potential Anesthesia issues that may suggest increased risk of complications or contraindication to planned procedure: potential difficult intubation. Vitals Value Taken Time BP 160/94 05/21/24 0946 Pulse 46 05/21/24 0946 Resp 17 05/21/24 0946 Temp 36.1 ?C (97 ?F) 05/21/24 0946 SpO2 100 % 05/21/24 0946 No current facility-administered medications on file as of 05/21/2024. Outpatient Medications as of 05/21/2024 Medication Sig hydrocortisone (CORTEF) 5 mg tablet Take 10 mg upon waking in the morning and 5 mg at night (4-6 hours before bed) levothyroxine (SYNTHROID) 50 mcg tablet TAKE 1 TABLET BY MOUTH EVERY DAY tamsulosin (FLOMAX) 0.4 mg Take 0.4 mg by mouth. amLODIPine (NORVASC) 10 mg tablet Take 10 mg by mouth once daily. lisinopril (ZESTRIL, PRINIVIL) 40 mg tablet Take 40 mg by mouth once daily. pravastatin (PRAVACHOL) 20 mg tablet Take 20 mg by mouth once daily. ondansetron (ZOFRAN) 8 mg tablet Take 1 tablet by mouth every 8 hours as needed for nausea/vomiting. prochlorperazine (COMPAZINE) 10 mg tablet Take 1 tablet by mouth every 6 hours as needed. ibuprofen (MOTRIN) 200 mg tablet Take 200 mg by mouth every 6 hours as needed. I have interviewed and examined the patient. I have reviewed the medical record and/or the pre-anesthesia evaluation, pertinent labs, and test results. This contains updated information obtained within 48 hours of Surgery/Procedure. SIGNATURE: Shaun Schwab MD PATIENT NAME: Caitlin Elmore DATE: May 21, 2024 TIME: 9:53 AM CSN: [id number] [facility] CYTOLOGY NON-GYNon 4 ADEQUACY INTERPRETATION Normal [facility] Comment on above: Order Comment: Speci men Type: SPECIMEN OBTAINED BY ASPIRATION Ordering Facility: [facility] Address: [address] [place] [address] Result Comment: A: # 1,2,3,4 Necrosis B: #1,2,3 Non-diagnostic C: #1 Limited lymphoid sample #[address] Dean French / Adin Guevara Each letter in the above intra-procedural assessment refers to a unique site. The specific site is indicated in the final diagnosis portion of the report. Each number in this assessment references a discrete evaluation episode. Intra-procedural assessment performed at [facility], [address] [place] [address] Performed By: #### C YTONON #### [facility] CLIA [id number] [address] [place] [address] [place] CASE REPORT Normal [facility] Comment on above: Order Comment: Speci men Type: SPECIMEN OBTAINED BY ASPIRATION Ordering Facility: [facility] Address: [address] [place] [address] Result Comment: [facility] Cytology Report Case: [id number] Authorizing Provider: Ras Starr MD Collected: 05/21/2024 10:22 AM Ordering Location: [facility] Received: 05/21/2024 11:32 AM Endoscopy - ENDO Pathologist: Jason French MD Specimens: A) - Lymph Node, Transbronchial, 10R B) - Lymph Node, Transbronchial, 4L C) - Lymph Node, Transbronchial, Station 7 Performed By: #### C YTONON #### [facility] CLIA [id number] [address] [place] [address] [place] CLINICAL HISTORY Normal [facility] Comment on above: Order Comment: Speci men Type: SPECIMEN OBTAINED BY ASPIRATION Ordering Facility: [facility] Address: [address] [place] [address] Result Comment: Pre- op diagnosis: Adenopathy [R59.9] 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 Performed By: #### C YTONON #### [facility] CLIA [id number] [address] [place] [address] DIAGNOSIS COMMENT Normal [facility] Comment on above: Order Comment: Speci men Type: SPECIMEN OBTAINED BY ASPIRATION Ordering Facility: [facility] Address: [address] [place] [address] Result Comment: A. H istochemical stains with appropriate controls for AFB and GMS performed on cell block A are negative for mycobacterial and fungal organisms, respectively. B. The limited benign lymphoid sample is present on the ThinPrep slide and in the cell block only, which explains the discrepancy between the GIULIA and final diagnoses for part B. Performed By: #### C YTONON #### [facility] CLIA [id number] [address] [place] [address] FINAL DIAGNOSIS [facility] Comment on above: Order Comment: Speci men Type: SPECIMEN OBTAINED BY ASPIRATION Ordering Facility: [facility] Address: [address] [place] [address] Result Comment: A - Lymph Node, Transbronchial, Aspirate/Fine Needle Aspirate - 10R Negative for malignant cells. Not a lymphoid sample. Necrosis present (see comment). B - Lymph Node, Transbronchial, Aspirate/Fine Needle Aspirate - 4L Negative for malignant cells. Limited benign lymphoid sample (see comment). C - Lymph Node, Transbronchial, Aspirate/Fine Needle Aspirate - Station 7 Negative for malignant cells. Benign lymphoid sample. The following cell blocks were associated with this case: A1 Cell Block, Alcohol Fixed B1 Cell Block, Alcohol Fixed C1 Cell Block, Alcohol Fixed Performed By: #### C YTONON #### [facility] CLIA [id number] [address] [place] [address] FINAL PERFORMING LAB Normal [facility] Comment on above: Order Comment: Speci men Type: SPECIMEN OBTAINED BY ASPIRATION Ordering Facility: [facility] Address: [address] [place] [address] Result Comment: Tech nical component, counseling program leader screening performed at [facility], [address] [place] [address] CLIA# [id number] Diagnostic interpretation performed at [facility], [address] [place] [address] CLIA# [id number] Surgical Orderly: Jason Frnech M.D. Performed By: #### C YTONON #### [facility] CLIA [id number] [address] [place] [address] [place] GROSS DESCRIPTION Normal [facility] Comment on above: Order Comment: Speci men Type: SPECIMEN OBTAINED BY ASPIRATION Ordering Facility: [facility] Address: [address] [place] [address] Result Comment: A. L ymph Node, Transbronchial 35 cc hazy red CytoLyt with material. ThinPrep and Cell Block prepared and 8 smears (4 air dried and 4 fixed). B. Lymph Node, Transbronchial 35 cc clear red CytoLyt with material. ThinPrep and Cell Block prepared and 6 smears (3 air dried and 3 fixed). C. Lymph Node, Transbronchial 35 cc clear colorless CytoLyt with scant particles. ThinPrep and Cell Block prepared and 4 smears (2 air dried and 2 fixed). Performed By: #### C YTONON #### [facility] CLIA [id number] [address] [place] [address] [place] ORDER COMMENT Normal [facility] Comment on above: Order Comment: Speci men Type: SPECIMEN OBTAINED BY ASPIRATION Ordering Facility: [facility] Address: [address] [place] [address] Result Comment: Pre- op diagnosis: Adenopathy [R59.9] Performed By: #### C YTONON #### [facility] CLIA [id number] [address] [address] [place] NURSING PROGon 05-21-2024 NURSING PROG HNO ID: [id number] Author: YUE WILSON RN Service: ? Author Type: Registered Nurse Type: Nursing Progress Note Filed: 05/21/2024 12:35 Note Text: PATIENT EDUCATION TOPIC: PROCEDURE / SURGERY: Procedure/Surgery: EBUS PATIENT NAME: Caitlin Elmore PATIENT LOCATION: [facility] PO[facility] PO[facility] READINESS TO LEARN COGNITIVE ABILITY: Alert and oriented MOTIVATION TO LEARN: Interested FAMILY SUPPORT: High - Very involved in pt care INSTRUCTION PROVIDED TO: Patient and Spouse PATIENT LEARNS BEST BY: Written Instruction - Hand-outs FACTORS AFFECTING LEARNING: None PHYSICAL LIMITATIONS AFFECTING LEARNING: None LEARNING RESPONSE DIAGNOSIS: ADULT: Lymph node bx PATIENT/FAMILY RESPONSE: Verbalizes understanding of: POST-PROCEDURE INSTRUCTIONS-Correct actions to take to reduce post procedure complications METHOD OF INSTRUCTION: Individual instruction FOLLOW-UP PLAN: Patient instructed to call with any further issues INSTRUCTIONAL AIDS USED: NA SUPPLEMENTAL MATERIAL PROVIDED TO PATIENT: None REFERRAL (RECOMMENDATION): None Electronically Signed By: YUE WILSON [facility] NURSING PROG HNO ID: [id number] Author: SUJIT CLIFFORD RN Service: Nursing Author Type: Registered Nurse Type: Nursing Progress Note Filed: 05/21/2024 09:35 Note Text: PATIENT EDUCATION TOPIC: PROCEDURE / SURGERY: Procedure/Surgery: EBUS PATIENT NAME: Caitlin Elmore PATIENT LOCATION: [facility] PO[facility] READINESS TO LEARN COGNITIVE ABILITY: Alert and oriented MOTIVATION TO LEARN: Interested FAMILY SUPPORT: High - Very involved in pt care INSTRUCTION PROVIDED TO: Patient PATIENT LEARNS BEST BY: Individual Instruction FACTORS AFFECTING LEARNING: None PHYSICAL LIMITATIONS AFFECTING LEARNING: None LEARNING RESPONSE DIAGNOSIS: ADULT: PATIENT/FAMILY RESPONSE: Verbalizes understanding of: PRE-PROCEDURE INSTRUCTIONS-Correct action to take to follow pre-procedure instructions METHOD OF INSTRUCTION: Individual instruction FOLLOW-UP PLAN: Complete - No need for follow-up INSTRUCTIONAL AIDS USED: NA SUPPLEMENTAL MATERIAL PROVIDED TO PATIENT: None REFERRAL (RECOMMENDATION): None Electronically Signed By: Sujit Clifford [facility] SURGICAL PATHOLOGYon 024 ADDENDUM 1: [facility] Comment on above: Order Comment: Speci men Type: TISSUE SPECIMENOrdering Facility: [facility] Address: [address] [place] [address] Result Comment: GMS and AFB/Melissa stains were performed on the biopsy; no fungal or mycobacterial organisms were identified. Addendum electronically signed by Ricki Canales MD on 05/27/2024 at 2:05 PM Performed By: #### S ####[facility] [id number] [address] OF [place] CASE REPORT Normal [facility] Comment on above: Order Comment: Speci men Type: TISSUE SPECIMENOrdering Facility: [facility] Address: [address] [place] [address] Result Comment: Surg ical Pathology Report Case: [id number] Authorizing Provider: Ras Starr MD Collected: 05/21/2024 11:20 AM Ordering Location: [facility] Received: 05/21/2024 11:46 AM Endoscopy - ENDO Pathologist: Ricki Canales MD Specimen: Lymph Node, Biopsy, 10R Performed By: #### S ####[facility]IA [id number] [address] OF [place] CLINICAL HISTORY Normal [facility] Comment on above: Order Comment: Specavery perez Type: TISSUE SPECIMENOrdering Facility: [facility] Address: [address] [place] [address] Result Comment: Pre- op diagnosis: Adenopathy [R59.9] Nodular opacities in right lung measuring up to 1.6 cm worrisome for metastases, increased in size since 12/08/23 2. Mild right hilar lymphadenopathy, either stable or slightly smaller. Performed By: #### S ####[facility]IA [id number] [address] OF [place] DIAGNOSIS COMMENT Normal [facility] Comment on above: Order Comment: Richard perez Type: TISSUE SPECIMENOrdering Facility: [facility] Address: [address] [place] [address] Result Comment: A mi nute cluster of epithelial cells is noted, without prominent atypia, favored to represent bronchial cells. No definite malignancy is identified. No definite lymph node tissue or granuloma is demonstrated. GMS and AFB/Melissa stains will be performed and results will be reported in an addendum. Laboratory Developed Test (LDT) Disclaimer: Performance characteristics of immunohistochemical, immunofluorescent and chromogenic in-situ hybridization tests have been determined by the performing laboratory within [facility]???s [facility] Rodriguez Pathology and Laboratory Medicine Department ([facility], [facility], [facility], [facility], [facility], [facility], or [facility]) in a manner consistent with CLIA requirements. One or more of these tests have not been cleared or approved by the FDA. [facility] is regulated under CLIA as qualified to perform high-complexity testing. These tests are used for clinical purposes. They should not be regarded as investigational or for research. Positive and negative controls stain appropriately. Performed By: #### S ####[facility] [id number] [place] [address] [place] FINAL DIAGNOSIS Normal [facility] Comment on above: Order Comment: Speci men Type: TISSUE SPECIMENOrdering Facility: [facility] Address: [address] [place] [address] Result Comment: Lymp h node, 10R, biopsy: -Necrotic material and minute cluster of bland epithelial cells (see comment). Performed By: #### S ####[facility] [id number] [address] [place] FINAL PERFORMING LAB Normal [facility] Comment on above: Order Comment: Speci men Type: TISSUE SPECIMENOrdering Facility: [facility] Address: [address] [place] [address] Result Comment: Diag nostic interpretation performed at [facility], [address] [place] [address] CLIA# [id number] Surgical Orderly: Yasir Woods M.D. Performed By: #### S ####[facility] [id number] [place] [address] [place] GROSS DESCRIPTION Normal [facility] Comment on above: Order Comment: Speci men Type: TISSUE SPECIMENOrdering Facility: [facility] Address: [address] [place] [address] Result Comment: A. L ymph Node, Biopsy Received in formalin, labeled 10R TB BX, are multiple melara-red, soft and friable cylindrical tissue segments aggregating to 2.8 x 0.2 x <0.1 cm. Totally submitted in one cassette. CL May 21, 2024 3:16 PM. Gross examination performed at [facility], [address] [place] [address] Performed By: #### S ####[facility] [id number] [place] [address] [place] BIOAVAILABLE TESTOSTERONE, A DULT MALEon 05-17-2024 Albumin [Mass/Vol] 4.6 g/dL Normal 3.9-4.9 [facility] Comment on above: Order Comment: Speci men Type: BLOOD SPECIMENOrdering Facility: [facility] Address: [address] [place] [address] Performed By: #### 1 0501-5, 17151-3, SQBTESTM ####[facility] [id number] [place] [address] [place] Sex hormone binding globulin [Moles/Vol] 45 nmol/L Normal 14-82 [facility] Comment on above: Order Comment: Speci men Type: BLOOD SPECIMENOrdering Facility: [facility] Address: [address] [place] [address] Performed By: #### 1 0501-5, 58223-0, SQBTESTM ####[facility] [id number] [place] [address] [place] Testosterone [Mass/Vol] 613 ng/dL Normal 193-824 [facility] Comment on above: Order Comment: Speci men Type: BLOOD SPECIMENOrdering Facility: [facility] Address: [address] [place] [address] Result Comment: A te stosterone level in the 193-320 ng/dL range with associated clinical symptoms is considered low and may indicate hypogonadism (from [facility] [phone]:123-135). Results >320 ng/dL are considered normal. Performed By: #### 1 0501-5, 53130-7, SQBTESTM ####[facility] [id number] [place] [id number] [place] TSTBIO 283.2 ng/dL Normal 105.0-324.0 [facility] Comment on above: Order Comment: Speci men Type: BLOOD SPECIMENOrdering Facility: [facility] Address: [address] [place] [address] Performed By: #### 1 0501-5, 29059-4, SQBTESTM ####[facility]IA [id number] [place] [address] [place] TSTFRC 98.4 pg/mL Normal 38.0-120.0 [facility] Comment on above: Order Comment: Speci men Type: BLOOD SPECIMENOrdering Facility: [facility] Address: [address] [place] [address] Performed By: #### 1 0501-5, 82452-2, SQBTESTM ####[facility]IA [id number] [place] [address] [place] TSTFRP 1.6 % Normal 1.1-2.6 [facility] Comment on above: Order Comment: Speci men Type: BLOOD SPECIMENOrdering Facility: [facility] Address: [address] [place] [address] Performed By: #### 1 0501-5, 51554-5, SQBTESTM ####[facility]IA [id number] [place] [id number] [place] Alayna Joneson 05-17-20 24 Cortisol [Mass/Vol] 10.6 ug/dL Normal 4.8-19.5 [facility] Comment on above: Order Comment: Speci men Type: BLOOD SPECIMENOrdering Facility: [facility] Address: [address] [place] [address] Result Comment: Prov ided reference range is from 6-10 AM sample collection time.Cortisol Reference Range: 6-10 AM = 4.8-19.5 ug/dL, 4-8 PM = 2.5-11.9 ug/dL Performed By: #### 3 024-7, 2842-3, 2143-6 ####[facility] LABIA [id number] [place] [address] [place] FSH SerPl-aCncon 05-17-2024 Follitropin Qn 22.3 m[IU]/mL High 1.5-12.4 [facility] Comment on above: Order Comment: Speci men Type: BLOOD SPECIMENOrdering Facility: [facility] Address: [address] [place] [address] Performed By: #### 1 0501-5, 78458-6, SQBTESTM ####[facility]IA [id number] [place] [address] [place] INSULIN LIK GR FAC Ion 05-17 INSULIN LIK GR FAC 1 187 ng/mL Normal 56-203 [facility] Comment on above: Order Comment: Speci men Type: BLOOD SPECIMENOrdering Facility: [facility] Address: [address] [place] [address] Performed By: #### I LGF1 ####[facility] LABIA [id number] [place] [address] [place] LH SerPl-aCncon 05-17-2024 Lutropin Qn 13.7 m[IU]/mL High 1.8-10.8 [facility] Comment on above: Order Comment: Speci men Type: BLOOD SPECIMENOrdering Facility: [facility] Address: [address] [place] [address] Performed By: #### 1 0501-5, 68110-0, SQBTESTM ####[facility]IA [id number] [place] [address] [place] Prolactin [facility] Prolactin [Mass/Vol] 14.4 ng/mL Normal 4.0-15.2 [facility] Comment on above: Order Comment: Speci men Type: BLOOD SPECIMENOrdering Facility: [facility] Address: [address] [place] [address] Result Comment: Prol actin test is performed using the [employer] Electrochemiluminescence Immunoassay method. Results obtained with different methods or kits cannot be used interchangeably. Performed By: #### 3 024-7, 2842-3, 6 ####[facility] LABIA [id number] [place] [address] [place] T4 Free [facility] 024 Free T4 [Mass/Vol] 1.2 ng/dL Normal 0.9-1.7 [facility] Comment on above: Order Comment: Speci men Type: BLOOD SPECIMENOrdering Facility: [facility] Address: [address] [place] [address] Performed By: #### 3 024-7, 2842-3, 2143-03 ####[facility] LABIA [id number] [place] [address] [place] THYROID PEROXIDASE ANTIBODYo n 05-17-2024 TPO Ab Qn [IU]/mL Normal <5.6 [facility] Comment on above: Order Comment: Speci men Type: BLOOD SPECIMENOrdering Facility: [facility] Address: [address] [place] [address] Result Comment: Thyr oid Peroxidase Antibody test is used as an aid in diagnosis of autoimmune thyroid disease. Clinical correlation is required. Performed By: #### M ICRO ####[facility] LABIA [id number] [place] [address] [place] CNNURSEon 05-16-2024 CNNURSE Normal [facility] HISTORY PHYSICALon HISTORY PHYSICAL Normal [facility] CNOVon 05-10-2024 CNOV Normal [facility] CBC W Auto Differential pane l (Bld)on 05-08-2024 Basophils (Bld) [#/Vol] 0.04 10*3/uL Normal <0.11 [facility] Comment on above: Order Comment: Speci men Type: BLOOD SPECIMENOrdering Facility: [facility] Address: [address] [place] [address] Performed By: #### 5 7021-8 ####[facility] LABCLIA [id number] [place] [address] Basophils/100 WBC (Bld) 0.6 % Normal [facility] Comment on above: Order Comment: Speci men Type: BLOOD SPECIMENOrdering Facility: [facility] Address: [address] [place] [address] Performed By: #### 5 7021-8 ####[facility] LABCLIA [id number] [place] [address] Differential cell count method Nom (Bld) Auto Normal [facility] Comment on above: Order Comment: Speci men Type: BLOOD SPECIMENOrdering Facility: [facility] Address: [address] [place] [address] Performed By: #### 5 7021-8 ####[facility] LABCLIA [id number] [place] [address] Eosinophils (Bld) [#/Vol] 0.42 10*3/uL Normal <0.46 [facility] Comment on above: Order Comment: Speci men Type: BLOOD SPECIMENOrdering Facility: [facility] Address: [address] [place] [address] Performed By: #### 5 7021-8 ####[facility] LABCLIA [id number] [place] [address] Eosinophils/100 WBC (Bld) 6.0 % Normal [facility] Comment on above: Order Comment: Speci men Type: BLOOD SPECIMENOrdering Facility: [facility] Address: [address] [place] [address] Performed By: #### 5 7021-8 ####[facility] LABCLIA [id number] [place] [address] Erythrocyte distribution width (RBC) [Ratio] 12.6 % Normal 11.5-15.0 [facility] Comment on above: Order Comment: Speci men Type: BLOOD SPECIMENOrdering Facility: [facility] Address: [address] [place] [address] Performed By: #### 5 7021-8 ####[facility] LABCLIA [id number] [place] [address] Hematocrit (Bld) [Volume fraction] 43.7 % Normal 39.0-51.0 [facility] Comment on above: Order Comment: Speci men Type: BLOOD SPECIMENOrdering Facility: [facility] Address: [address] [place] [address] Performed By: #### 5 7021-8 ####[facility] LABCLIA [id number] [place] [address] Hemoglobin (Bld) [Mass/Vol] 14.9 g/dL Normal 13.0-17.0 [facility] Comment on above: Order Comment: Speci men Type: BLOOD SPECIMENOrdering Facility: [facility] Address: [address] [place] [address] Performed By: #### 5 7021-8 ####[facility] LABCLIA [id number] [place] [address] Immature granulocytes (Bld) [#/Vol] 0.03 10*3/uL Normal <0.10 [facility] Comment on above: Order Comment: Speci men Type: BLOOD SPECIMENOrdering Facility: [facility] Address: [address] [place] [address] Performed By: #### 5 7021-8 ####[facility] LABCLIA [id number] [place] [address] Immature granulocytes/100 WBC (Bld) 0.4 % Normal [facility] Comment on above: Order Comment: Speci men Type: BLOOD SPECIMENOrdering Facility: [facility] Address: [address] [place] [address] Performed By: #### 5 7021-8 ####[facility] LABCLIA [id number] [place] [address] Lymphocytes (Bld) [#/Vol] 1.16 10*3/uL Normal 1.00-4.00 [facility] Comment on above: Order Comment: Speci men Type: BLOOD SPECIMENOrdering Facility: [facility] Address: [address] [place] [address] Performed By: #### 5 7021-8 ####[facility] LABIA [id number] [place] [address] Lymphocytes/100 WBC (Bld) 16.5 % Normal [facility] Comment on above: Order Comment: Speci men Type: BLOOD SPECIMENOrdering Facility: [facility] Address: [address] [place] [address] Performed By: #### 5 7021-8 ####[facility] LABCLIA [id number] [place] [address] MCH (RBC) [Entitic mass] 29.6 pg Normal 26.0-34.0 [facility] Comment on above: Order Comment: Speci men Type: BLOOD SPECIMENOrdering Facility: [facility] Address: [address] [place] [address] Performed By: #### 5 7021-8 ####[facility] LABIA [id number] [place] [address] MCHC (RBC) [Mass/Vol] 34.1 g/dL Normal 30.5-36.0 [facility] Comment on above: Order Comment: Speci men Type: BLOOD SPECIMENOrdering Facility: [facility] Address: [address] [place] [address] Performed By: #### 5 7021-8 ####[facility] LABCLIA [id number] [place] [address] MCV (RBC) [Entitic vol] 86.9 fL Normal 80.0-100.0 [facility] Comment on above: Order Comment: Speci men Type: BLOOD SPECIMENOrdering Facility: [facility] Address: [address] [place] [address] Performed By: #### 5 7021-8 ####[facility] LABCLIA [id number] [place] [address] Monocytes (Bld) [#/Vol] 0.53 10*3/uL Normal <0.87 [facility] Comment on above: Order Comment: Speci men Type: BLOOD SPECIMENOrdering Facility: [facility] Address: [address] [place] [address] Performed By: #### 5 7021-8 ####[facility] LABCLIA [id number] [place] [address] Monocytes/100 WBC (Bld) 7.5 % Normal [facility] Comment on above: Order Comment: Speci men Type: BLOOD SPECIMENOrdering Facility: [facility] Address: [address] [place] [address] Performed By: #### 5 7021-8 ####[facility] LABCLIA [id number] [place] [address] Neutrophils (Bld) [#/Vol] 4.85 10*3/uL Normal 1.45-7.50 [facility] Comment on above: Order Comment: Speci men Type: BLOOD SPECIMENOrdering Facility: [facility] Address: [address] [place] [address] Performed By: #### 5 7021-8 ####[facility] LABCLIA [id number] [place] [address] Neutrophils/100 WBC (Bld) 69.0 % Normal [facility] Comment on above: Order Comment: Speci men Type: BLOOD SPECIMENOrdering Facility: [facility] Address: [address] [place] [address] Performed By: #### 5 7021-8 ####[facility] LABCLIA [id number] [place] [address] Nucleated RBC (Bld) [#/Vol] 10*3/uL Normal <0.01 [facility] Comment on above: Order Comment: Speci men Type: BLOOD SPECIMENOrdering Facility: [facility] Address: [address] [place] [address] Performed By: #### 5 7021-8 ####[facility] LABCLIA [id number] [place] [address] Nucleated RBC/100 WBC (Bld) [Ratio] 0.0 /100 WBC Normal [facility] Comment on above: Order Comment: Speci men Type: BLOOD SPECIMENOrdering Facility: [facility] Address: [address] [place] [address] Performed By: #### 5 7021-8 ####[facility] LABCLIA [id number] [place] [address] Platelet mean volume (Bld) [Entitic vol] 8.1 fL Low 9.0-12.7 [facility] Comment on above: Order Comment: Speci men Type: BLOOD SPECIMENOrdering Facility: [facility] Address: [address] [place] [address] Performed By: #### 5 7021-8 ####[facility] LABCLIA [id number] [place] [address] Platelets (Bld) [#/Vol] 161 10*3/uL Normal 150-400 [facility] Comment on above: Order Comment: Speci men Type: BLOOD SPECIMENOrdering Facility: [facility] Address: [address] [place] [address] Performed By: #### 5 7021-8 ####[facility] LABCLIA [id number] [place] [address] RBC (Bld) [#/Vol] 5.03 10*6/uL Normal 4.20-6.00 [facility] Comment on above: Order Comment: Speci men Type: BLOOD SPECIMENOrdering Facility: [facility] Address: [address] [place] [address] Performed By: #### 5 7021-8 ####[facility] LABCLIA [id number] [place] [address] WBC (Bld) [#/Vol] 7.03 10*3/uL Normal 3.70-11.00 [facility] Comment on above: Order Comment: Speci men Type: BLOOD SPECIMENOrdering Facility: [facility] Address: [address] [place] [address] Performed By: #### 5 7021-8 ####[facility] LABCLIA [id number] [place] [address] CNOVSPon 05-08-2024 CNOVSP Normal [facility] CNPNon 05-08-2024 CNPN Normal [facility] Comprehensive metabolic 2000 panelon 05-08-2024 Albumin [Mass/Vol] 4.7 g/dL Normal 3.9-4.9 [facility] Comment on above: Order Comment: Speci men Type: BLOOD SPECIMENOrdering Facility: [facility] Address: [address] [place] [address] Performed By: #### 2 4323-8 ####[facility] LABCLIA [id number] [place] [address] ALP [Catalytic activity/Vol] 84 U/L Normal 38-113 [facility] Comment on above: Order Comment: Speci men Type: BLOOD SPECIMENOrdering Facility: [facility] Address: [address] [place] [address] Performed By: #### 2 4323-8 ####[facility] LABCLIA [id number] [place] [address] ALT [Catalytic activity/Vol] 20 U/L Normal 10-54 [facility] Comment on above: Order Comment: Speci men Type: BLOOD SPECIMENOrdering Facility: [facility] Address: [address] [place], [place] [address] Performed By: #### 2 4323-8 ####[facility] LABCLIA [id number] [place] [address] Anion gap [Moles/Vol] 12 mmol/L Normal 8-15 [facility] Comment on above: Order Comment: Speci men Type: BLOOD SPECIMENOrdering Facility: [facility] Address: [address] [place] [address] Performed By: #### 2 4323-8 ####[facility] LABCLIA [id number] [place] [address] AST [Catalytic activity/Vol] 15 U/L Normal 14-40 [facility] Comment on above: Order Comment: Speci men Type: BLOOD SPECIMENOrdering Facility: [facility] Address: [address] [place] [address] Performed By: #### 2 4323-8 ####[facility] LABCLIA [id number] [place] [address] Bilirubin [Mass/Vol] 0.4 mg/dL Normal 0.2-1.3 [facility] Comment on above: Order Comment: Speci men Type: BLOOD SPECIMENOrdering Facility: [facility] Address: [address] [place] [address] Performed By: #### 2 4323-8 ####[facility] LABCLIA [id number] [place] [address] Calcium [Mass/Vol] 10.3 mg/dL High 8.5-10.2 [facility] Comment on above: Order Comment: Speci men Type: BLOOD SPECIMENOrdering Facility: [facility] Address: [address] [place] [address] Performed By: #### 2 4323-8 ####[facility] LABCLIA [id number] [place] [address] Chloride [Moles/Vol] 104 mmol/L Normal 98-107 [facility] Comment on above: Order Comment: Speci men Type: BLOOD SPECIMENOrdering Facility: [facility] Address: [address] [place] [address] Performed By: #### 2 4323-8 ####[facility] LABCLIA [id number] [place] [address] CO2 [Moles/Vol] 23 mmol/L Normal 22-30 [facility] Comment on above: Order Comment: Speci men Type: BLOOD SPECIMENOrdering Facility: [facility] Address: [address] [place] [address] Performed By: #### 2 4323-8 ####[facility] LABCLIA [id number] [place] [address] Creatinine [Mass/Vol] 1.50 mg/dL High 0.73-1.22 [facility] Comment on above: Order Comment: Speci men Type: BLOOD SPECIMENOrdering Facility: [facility] Address: [address] [place] [address] Performed By: #### 2 4323-8 ####[facility] LABCLIA [id number] [place] [address] Creatinine and Glomerular filtration rate.predicted panel (S/P/Bld) 54 mL/min/1.73m??? Low >=60 [facility] Comment on above: Order Comment: Speci men Type: BLOOD SPECIMENOrdering Facility: [facility] Address: [address] [place] [address] Result Comment: Torri mated Glomerular Filtration Rate (eGFR) is calculated using the 2020 CKD-EPI creatinine equation. This equation utilizes serum creatinine, sex, and age as parameters. The creatinine assay has traceable calibration to isotope dilution-mass spectrometry. Refer to KDIGO guidelines for clinical interpretation. In patients with unstable renal function, e.g. those with acute kidney injury, the eGFR may not accurately reflect actual GFR. Performed By: #### 2 4323-8 ####[facility] LABCLIA [id number] [place] [address] Glucose [Mass/Vol] 111 mg/dL High 74-99 [facility] Comment on above: Order Comment: Richard perez Type: BLOOD SPECIMENOrdering Facility: [facility] Address: [address] [place], [place] [address] Result Comment: The [place] Diabetes [employer] (ADA) provides guidance for cutoff values for fasting glucose and random glucose. The ADA defines fasting as no caloric intake for at least 8 hours. Fasting plasma glucose results between 100 to 125 mg/dL indicate increased risk for diabetes (prediabetes).Fasting plasma glucose results greater than or equal to 126 mg/dL meet the criteria for diagnosis of diabetes. In the absence of unequivocal hyperglycemia, results should be confirmed by repeat testing. In a patient with classic symptoms of hyperglycemia or hyperglycemic crisis, random plasma glucose results greater than or equal to 200 mg/dL meet the criteria for diagnosis of diabetes.Reference: Standards of Medical Care in Diabetes 2016, [place] [employer]. Diabetes Care. 2016.39(Suppl 1). Performed By: #### 2 4323-8 ####[facility] LABCLIA [id number] [place] [address] Potassium [Moles/Vol] 4.4 mmol/L Normal 3.7-5.1 [facility] Comment on above: Order Comment: Richard perez Type: BLOOD SPECIMENOrdering Facility: [facility] Address: [address] [place] [address] Performed By: #### 2 4323-8 ####[facility] LABIA [id number] [place] [address] Protein [Mass/Vol] 7.2 g/dL Normal 6.3-8.0 [facility] Comment on above: Order Comment: Richard perez Type: BLOOD SPECIMENOrdering Facility: [facility] Address: [address] [place] [address] Performed By: #### 2 4323-8 ####[facility] LABCLIA [id number] [place] [address] Sodium [Moles/Vol] 139 mmol/L Normal 136-144 [facility] Comment on above: Order Comment: Speci men Type: BLOOD SPECIMENOrdering Facility: [facility] Address: [address] [place] [address] Performed By: #### 2 4323-8 ####[facility] LABCLIA [id number] [place] [address] Urea nitrogen [Mass/Vol] 20 mg/dL Normal 9-24 [facility] Comment on above: Order Comment: Speci men Type: BLOOD SPECIMENOrdering Facility: [facility] Address: [address] [place] [address] Performed By: #### 2 4323-8 ####[facility] LABCLIA [id number] [place] [address] TSH SerPl-aCncon 05-08-2024 TSH Qn 5.160 m[IU]/L High 0.270-4.200 [facility] Comment on above: Order Comment: Speci men Type: BLOOD SPECIMENOrdering Facility: [facility] Address: [address] [place], [place] [address] Performed By: #### 3 016-3 ####[facility] LABCLIA [id number] [facility] [id number] [place] [address] [place] [address] ABD/PEL W IVCONon 024 CT ABD/PEL W IVCON Normal [facility] CT CHEST W IVCONon 4 CT CHEST W IVCON Normal [facility] MR head/brain wo/w conon MR head/brain wo/w con [facility] [address] [place] [address] MRI Report Signed Patient: Caitlin Elmore MR#: [id number] : 1965 Acct:[id number] Age/Sex: 58 / M ADM Date: 04/12/24 Loc: MR Room: Type: [facility] Attending Dr: Vanesa Gomez PA-C Copies to: VANESA GOMEZ PA-C Ordering Provider: VANESA GOMEZ PA-C Date of Service: 04/12/24 MR/MR head/brain wo/w con: G44.53 MRI BRAIN WITHOUT AND WITH INTRAVENOUS CONTRAST CLINICAL DATA: Left posterior headache and fatigue. Patient has lung cancer. COMPARISON: None Multiecho, multiplanar imaging of the brain was performed before and after intravenous administration of 19 mL of ProHance. The ventricles are normal in size and position. There are a few nonspecific foci of increased T2 and FLAIR signal within the subcortical white matter in the frontal region bilaterally. This might be minor microvascular disease. There are no additional areas of abnormal signal intensity or enhancement within the supra or infratentorial brain. There is no restricted diffusion to suggest a recent ischemic event. No extra-axial collections or mass effect are seen. There are borderline low-lying cerebellar tonsils. There is minimal ethmoid mucosal thickening. The remaining imaged paranasal sinuses are clear. There are few mastoid air cells on the left with associated increased T2 signal. MR/MR head/brain wo/w con IMPRESSION: MINOR NONSPECIFIC WHITE MATTER CHANGE. NO ACUTE INTRACRANIAL FINDINGS OR METASTATIC DISEASE. Impression dictated by: Fior Gómez M.D.04/12/2024 10:29 AM Dictation Location: [place] [address] Transcribed By: [facility] 04/12/24 1029 Dictated By: Fior Gómez MD 04/12/24 1019 Signed By: 04/12/24 1029 Normal [facility] Corticotropin (P) [Mass/Vol] on 03-27-2024 Interpretation and review of laboratory results Normal [facility] - Chemistry and C hemistry - challengeon 03-27-2024 Corticotropin (P) [Mass/Vol] 10.6 pg/mL 7.2 - 63.3 pg/mL [facility] Comment on above: ACTH Reference Range : 7-10 am: 7.2 - 63.3 pg/mL [facility] Plas-mCncon 03-26-2024 Corticotropin (P) [Mass/Vol] 10.6 pg/mL Normal 7.2-63.3 [facility] Comment on above: Order Comment: Speci men Type: BLOOD SPECIMENOrdering Facility: [facility] Address: [address] [place] [address] Result Comment: ACTH Reference Range: 7-10 am: 7.2 - 63.3 pg/mL Performed By: #### 2 141-0 ####[facility] LABCLIA [id number] [address] [place] CBC W Auto Differential pane l (Bld)on 03-26-2024 Basophils (Bld) [#/Vol] 0.05 10*3/uL Normal <0.11 [facility] Comment on above: Order Comment: Speci men Type: BLOOD SPECIMENOrdering Facility: [facility] Address: [address] [place] [address] Performed By: #### 5 7021-8 ####[facility] LABCLIA [id number] [place] [address] Basophils/100 WBC (Bld) 0.7 % Normal [facility] Comment on above: Order Comment: Speci men Type: BLOOD SPECIMENOrdering Facility: [facility] Address: [address] [place] [address] Performed By: #### 5 7021-8 ####[facility] LABCLIA [id number] [place] [address] Differential cell count method Nom (Bld) Auto Normal [facility] Comment on above: Order Comment: Speci men Type: BLOOD SPECIMENOrdering Facility: [facility] Address: [address] [place] [address] Performed By: #### 5 7021-8 ####[facility] LABCLIA [id number] [place] [address] Eosinophils (Bld) [#/Vol] 0.59 10*3/uL High <0.46 [facility] Comment on above: Order Comment: Speci men Type: BLOOD SPECIMENOrdering Facility: [facility] Address: [address] [place] [address] Performed By: #### 5 7021-8 ####[facility] LABCLIA [id number] [place] [address] Eosinophils/100 WBC (Bld) 7.7 % Normal [facility] Comment on above: Order Comment: Speci men Type: BLOOD SPECIMENOrdering Facility: [facility] Address: [address] [place] [address] Performed By: #### 5 7021-8 ####[facility] LABCLIA [id number] [place] [address] Erythrocyte distribution width (RBC) [Ratio] 12.1 % Normal 11.5-15.0 [facility] Comment on above: Order Comment: Speci men Type: BLOOD SPECIMENOrdering Facility: [facility] Address: [address] [place] [address] Performed By: #### 5 7021-8 ####[facility] LABCLIA [id number] [place] [address] Hematocrit (Bld) [Volume fraction] 37.5 % Low 39.0-51.0 [facility] Comment on above: Order Comment: Speci men Type: BLOOD SPECIMENOrdering Facility: [facility] Address: [address] [place] [address] Performed By: #### 5 7021-8 ####[facility] LABCLIA [id number] [place] [address] Hemoglobin (Bld) [Mass/Vol] 13.0 g/dL Normal 13.0-17.0 [facility] Comment on above: Order Comment: Speci men Type: BLOOD SPECIMENOrdering Facility: [facility] Address: [address] [place] [address] Performed By: #### 5 7021-8 ####[facility] LABCLIA [id number] [place] [address] Immature granulocytes (Bld) [#/Vol] 0.03 10*3/uL Normal <0.10 [facility] Comment on above: Order Comment: Speci men Type: BLOOD SPECIMENOrdering Facility: [facility] Address: [address] [place] [address] Performed By: #### 5 7021-8 ####[facility] LABCLIA [id number] [place] [address] Immature granulocytes/100 WBC (Bld) 0.4 % Normal [facility] Comment on above: Order Comment: Speci men Type: BLOOD SPECIMENOrdering Facility: [facility] Address: [address] [place] [address] Performed By: #### 5 7021-8 ####[facility] LABCLIA [id number] [place] [address] Lymphocytes (Bld) [#/Vol] 1.41 10*3/uL Normal 1.00-4.00 [facility] Comment on above: Order Comment: Speci men Type: BLOOD SPECIMENOrdering Facility: [facility] Address: [address] [place] [address] Performed By: #### 5 7021-8 ####[facility] LABCLIA [id number] [place] [address] Lymphocytes/100 WBC (Bld) 18.3 % Normal [facility] Comment on above: Order Comment: Speci men Type: BLOOD SPECIMENOrdering Facility: [facility] Address: [address] [place] [address] Performed By: #### 5 7021-8 ####[facility] LABCLIA [id number] [place] [address] MCH (RBC) [Entitic mass] 30.3 pg Normal 26.0-34.0 [facility] Comment on above: Order Comment: Speci men Type: BLOOD SPECIMENOrdering Facility: [facility] Address: [address] [place] [address] Performed By: #### 5 7021-8 ####[facility] LABCLIA [id number] [place] [address] MCHC (RBC) [Mass/Vol] 34.7 g/dL Normal 30.5-36.0 [facility] Comment on above: Order Comment: Speci men Type: BLOOD SPECIMENOrdering Facility: [facility] Address: [address] [place] [address] Performed By: #### 5 7021-8 ####[facility] LABCLIA [id number] [place] [address] MCV (RBC) [Entitic vol] 87.4 fL Normal 80.0-100.0 [facility] Comment on above: Order Comment: Speci men Type: BLOOD SPECIMENOrdering Facility: [facility] Address: [address] [place] [address] Performed By: #### 5 7021-8 ####[facility] LABCLIA [id number] [place] [address] Monocytes (Bld) [#/Vol] 0.78 10*3/uL Normal <0.87 [facility] Comment on above: Order Comment: Speci men Type: BLOOD SPECIMENOrdering Facility: [facility] Address: [address] [place] [address] Performed By: #### 5 7021-8 ####[facility] LABCLIA [id number] [place] [address] Monocytes/100 WBC (Bld) 10.1 % Normal [facility] Comment on above: Order Comment: Speci men Type: BLOOD SPECIMENOrdering Facility: [facility] Address: [address] [place] [address] Performed By: #### 5 7021-8 ####[facility] LABCLIA [id number] [place] [address] Neutrophils (Bld) [#/Vol] 4.83 10*3/uL Normal 1.45-7.50 [facility] Comment on above: Order Comment: Speci men Type: BLOOD SPECIMENOrdering Facility: [facility] Address: [address] [place] [address] Performed By: #### 5 7021-8 ####[facility] LABCLIA [id number] [place] [address] Neutrophils/100 WBC (Bld) 62.8 % Normal [facility] Comment on above: Order Comment: Speci men Type: BLOOD SPECIMENOrdering Facility: [facility] Address: [address] [place] [address] Performed By: #### 5 7021-8 ####[facility] LABCLIA [id number] [place] [address] Nucleated RBC (Bld) [#/Vol] 10*3/uL Normal <0.01 [facility] Comment on above: Order Comment: Speci men Type: BLOOD SPECIMENOrdering Facility: [facility] Address: [address] [place] [address] Performed By: #### 5 7021-8 ####[facility] LABCLIA [id number] [place] [address] Nucleated RBC/100 WBC (Bld) [Ratio] 0.0 /100 WBC Normal [facility] Comment on above: Order Comment: Speci men Type: BLOOD SPECIMENOrdering Facility: [facility] Address: [address] [place] [address] Performed By: #### 5 7021-8 ####[facility] LABCLIA [id number] [place] [address] Platelet mean volume (Bld) [Entitic vol] 8.2 fL Low 9.0-12.7 [facility] Comment on above: Order Comment: Speci men Type: BLOOD SPECIMENOrdering Facility: [facility] Address: [address] [place] [address] Performed By: #### 5 7021-8 ####[facility] LABCLIA [id number] [place] [address] Platelets (Bld) [#/Vol] 150 10*3/uL Normal 150-400 [facility] Comment on above: Order Comment: Speci men Type: BLOOD SPECIMENOrdering Facility: [facility] Address: [address] [place] [address] Performed By: #### 5 7021-8 ####[facility] LABIA [id number] [place] [address] RBC (Bld) [#/Vol] 4.29 10*6/uL Normal 4.20-6.00 [facility] Comment on above: Order Comment: Speci men Type: BLOOD SPECIMENOrdering Facility: [facility] Address: [address] [place] [address] Performed By: #### 5 7021-8 ####[facility] [id number] [place] [address] WBC (Bld) [#/Vol] 7.69 10*3/uL Normal 3.70-11.00 [facility] Comment on above: Order Comment: Speci men Type: BLOOD SPECIMENOrdering Facility: [facility] Address: [address] [place] [address] Performed By: #### 5 7021-8 ####[facility] [id number] [place] [address] CNOVSPon 03-26-2024 CNOVSP Normal [facility] Comprehensive metabolic 2000 panelon 03-26-2024 Albumin [Mass/Vol] 4.6 g/dL Normal 3.9-4.9 [facility] Comment on above: Order Comment: Speci men Type: BLOOD SPECIMENOrdering Facility: [facility] Address: [address] [place] [address] Performed By: #### 2 4323-8 ####[facility] [id number] [place] [address] ALP [Catalytic activity/Vol] 74 U/L Normal 38-113 [facility] Comment on above: Order Comment: Speci men Type: BLOOD SPECIMENOrdering Facility: [facility] Address: [address] [place] [address] Performed By: #### 2 4323-8 ####[facility] LABCLIA [id number] [place] [address] ALT [Catalytic activity/Vol] 12 U/L Normal 10-54 [facility] Comment on above: Order Comment: Speci men Type: BLOOD SPECIMENOrdering Facility: [facility] Address: [address] [place] [address] Performed By: #### 2 4323-8 ####[facility] LABCLIA [id number] [place] [address] Anion gap [Moles/Vol] 7 mmol/L Low 8-15 [facility] Comment on above: Order Comment: Speci men Type: BLOOD SPECIMENOrdering Facility: [facility] Address: [address] [place] [address] Performed By: #### 2 4323-8 ####[facility] LABCLIA [id number] [place] [address] AST [Catalytic activity/Vol] 12 U/L Low 14-40 [facility] Comment on above: Order Comment: Speci men Type: BLOOD SPECIMENOrdering Facility: [facility] Address: [address] [place] [address] Performed By: #### 2 4323-8 ####[facility] LABCLIA [id number] [place] [address] Bilirubin [Mass/Vol] 0.5 mg/dL Normal 0.2-1.3 [facility] Comment on above: Order Comment: Speci men Type: BLOOD SPECIMENOrdering Facility: [facility] Address: [address] [place] [address] Performed By: #### 2 4323-8 ####[facility] LABCLIA [id number] [place] [address] Calcium [Mass/Vol] 10.2 mg/dL Normal 8.5-10.2 [facility] Comment on above: Order Comment: Speci men Type: BLOOD SPECIMENOrdering Facility: [facility] Address: [address] [place] [address] Performed By: #### 2 4323-8 ####[facility] LABCLIA [id number] [place] [address] Chloride [Moles/Vol] 101 mmol/L Normal 98-107 [facility] Comment on above: Order Comment: Speci men Type: BLOOD SPECIMENOrdering Facility: [facility] Address: [address] [place] [address] Performed By: #### 2 4323-8 ####[facility] LABCLIA [id number] [place] [address] CO2 [Moles/Vol] 28 mmol/L Normal 22-30 [facility] Comment on above: Order Comment: Speci men Type: BLOOD SPECIMENOrdering Facility: [facility] Address: [address] [place] [address] Performed By: #### 2 4323-8 ####[facility] LABCLIA [id number] [place] [address] Creatinine [Mass/Vol] 1.64 mg/dL High 0.73-1.22 [facility] Comment on above: Order Comment: Speci men Type: BLOOD SPECIMENOrdering Facility: [facility] Address: [address] [place], [place] [address] Performed By: #### 2 4323-8 ####[facility] LABCLIA [id number] [place] [address] Creatinine and Glomerular filtration rate.predicted panel (S/P/Bld) 48 mL/min/1.73m??? Low >=60 [facility] Comment on above: Order Comment: Speci men Type: BLOOD SPECIMENOrdering Facility: [facility] Address: [address] [place] [address] Result Comment: Torri mated Glomerular Filtration Rate (eGFR) is calculated using the 2020 CKD-EPI creatinine equation. This equation utilizes serum creatinine, sex, and age as parameters. The creatinine assay has traceable calibration to isotope dilution-mass spectrometry. Refer to KDIGO guidelines for clinical interpretation. In patients with unstable renal function, e.g. those with acute kidney injury, the eGFR may not accurately reflect actual GFR. Performed By: #### 2 4323-8 ####[facility] LABCLIA [id number] [place] [address] Glucose [Mass/Vol] 103 mg/dL High 74-99 [facility] Comment on above: Order Comment: Richard perez Type: BLOOD SPECIMENOrdering Facility: [facility] Address: [address] [place] [address] Result Comment: The [place] [employer] (ADA) provides guidance for cutoff values for fasting glucose and random glucose. The ADA defines fasting as no caloric intake for at least 8 hours. Fasting plasma glucose results between 100 to 125 mg/dL indicate increased risk for diabetes (prediabetes).Fasting plasma glucose results greater than or equal to 126 mg/dL meet the criteria for diagnosis of diabetes. In the absence of unequivocal hyperglycemia, results should be confirmed by repeat testing. In a patient with classic symptoms of hyperglycemia or hyperglycemic crisis, random plasma glucose results greater than or equal to 200 mg/dL meet the criteria for diagnosis of diabetes.Reference: Standards of Medical Care in Diabetes 2016, [place] [employer]. Diabetes Care. 2016.39(Suppl 1). Performed By: #### 2 4323-8 ####[facility] LABCLIA [id number] [place] [address] Potassium [Moles/Vol] 4.2 mmol/L Normal 3.7-5.1 [facility] Comment on above: Order Comment: Richard perez Type: BLOOD SPECIMENOrdering Facility: [facility] Address: [address] [id number] Performed By: #### 2 4323-8 ####[facility] LABCLIA [id number] [place] [address] Protein [Mass/Vol] 7.0 g/dL Normal 6.3-8.0 [facility] Comment on above: Order Comment: Speci men Type: BLOOD SPECIMENOrdering Facility: [facility] Address: [address] [place] [address] Performed By: #### 2 4323-8 ####[facility] LABCLIA [id number] [place] [address] Sodium [Moles/Vol] 136 mmol/L Normal 136-144 [facility] Comment on above: Order Comment: Speci men Type: BLOOD SPECIMENOrdering Facility: [facility] Address: [address] [place] [address] Performed By: #### 2 4323-8 ####[facility] LABCLIA [id number] [place] [address] Urea nitrogen [Mass/Vol] 27 mg/dL High 9-24 [facility] Comment on above: Order Comment: Speci men Type: BLOOD SPECIMENOrdering Facility: [facility] Address: [address] [place] [address] Performed By: #### 2 4323-8 ####[facility] LABCLIA [id number] [place] [address] Cortann Desireel-miladyson 03-26-20 24 Cortisol [Mass/Vol] 4.0 ug/dL Low 4.8-19.5 [facility] Comment on above: Order Comment: Speci men Type: BLOOD SPECIMENOrdering Facility: [facility] Address: [address] [place] [address] Result Comment: Prov ided reference range is from 6-10 AM sample collection time.Cortisol Reference Range: 6-10 AM = 4.8-19.5 ug/dL, 4-8 PM = 2.5-11.9 ug/dL Performed By: #### 2 143-6 ####[facility] LABCLIA [id number] [place] [address] [place] TSH SerPl-aCncon 03-26-2024 TSH Qn 4.480 m[IU]/L High 0.270-4.200 [facility] Comment on above: Order Comment: Speci men Type: BLOOD SPECIMENOrdering Facility: [facility] Address: [address] [place] [address] Performed By: #### 3 016-3 ####[facility] LABCLIA [id number] [address] [place] CNPNon 03-12-2024 CNPN Normal [facility] CBC W Auto Differential pane l (Bld)on 02-13-2024 Basophils (Bld) [#/Vol] 0.04 10*3/uL [facility] Basophils/100 WBC (Bld) 0.8 % [facility] Differential cell count method Nom (Bld) Auto [facility] Eosinophils (Bld) [#/Vol] 0.56 10*3/uL High [facility] Eosinophils/100 WBC (Bld) 10.6 % [facility] Erythrocyte distribution width (RBC) [Ratio] 12.9 % 11.5 - 15.0 % [facility] Hematocrit (Bld) [Volume fraction] 41.1 % 39.0 - 51.0 % [facility] Hemoglobin (Bld) [Mass/Vol] 14.1 g/dL 13.0 - 17.0 g/dL [facility] Immature granulocytes (Bld) [#/Vol] NINF [facility] Immature granulocytes/100 WBC (Bld) 0.4 % [facility] Interpretation and review of laboratory results Abnormal [facility] Lymphocytes (Bld) [#/Vol] 1.02 10*3/uL [facility] Lymphocytes/100 WBC (Bld) 19.3 % [facility] MCH (RBC) [Entitic mass] 29.6 pg 26.0 - 34.0 pg [facility] MCHC (RBC) [Mass/Vol] 34.3 g/dL 30.5 - 36.0 g/dL [facility] MCV (RBC) [Entitic vol] 86.3 fL 80.0 - 100.0 fL [facility] Monocytes (Bld) [#/Vol] 0.52 10*3/uL [facility] Monocytes/100 WBC (Bld) 9.8 % [facility] Neutrophils (Bld) [#/Vol] 3.12 10*3/uL [facility] Neutrophils/100 WBC (Bld) 59.1 % [facility] Nucleated RBC (Bld) [#/Vol] NINF [facility] Nucleated RBC/100 WBC (Bld) [Ratio] 0.0 % /100 WBC [facility] Platelet mean volume (Bld) [Entitic vol] 8.8 fL Low 9.0 - 12.7 fL [facility] Platelets (Bld) [#/Vol] 165 10*3/uL [facility] RBC (Bld) [#/Vol] 4.76 10*6/uL 4.20 - 6.00 m/uL [facility] WBC (Bld) [#/Vol] 5.28 10*3/uL [facility] Basophils (Bld) [#/Vol] 0.04 10*3/uL Normal <0.11 [facility] Comment on above: Order Comment: Speci men Type: BLOOD SPECIMENOrdering Facility: [facility] Address: [address] [place] [address] Performed By: #### 5 7021-8 ####[facility] LABCLIA [id number] [place] [address] Basophils/100 WBC (Bld) 0.8 % Normal [facility] Comment on above: Order Comment: Speci men Type: BLOOD SPECIMENOrdering Facility: [facility] Address: [address] [place] [address] Performed By: #### 5 7021-8 ####[facility] LABCLIA [id number] [place] [address] Differential cell count method Nom (Bld) Auto Normal [facility] Comment on above: Order Comment: Speci men Type: BLOOD SPECIMENOrdering Facility: [facility] Address: [address] [place] [address] Performed By: #### 5 7021-8 ####[facility] LABCLIA [id number] [place] [address] Eosinophils (Bld) [#/Vol] 0.56 10*3/uL High <0.46 [facility] Comment on above: Order Comment: Speci men Type: BLOOD SPECIMENOrdering Facility: [facility] Address: [address] [place] [address] Performed By: #### 5 7021-8 ####[facility] LABCLIA [id number] [place] [address] Eosinophils/100 WBC (Bld) 10.6 % Normal [facility] Comment on above: Order Comment: Speci men Type: BLOOD SPECIMENOrdering Facility: [facility] Address: [address] [place] [address] Performed By: #### 5 7021-8 ####[facility] LABCLIA [id number] [place] [address] Erythrocyte distribution width (RBC) [Ratio] 12.9 % Normal 11.5-15.0 [facility] Comment on above: Order Comment: Speci men Type: BLOOD SPECIMENOrdering Facility: [facility] Address: [address] [place] [address] Performed By: #### 5 7021-8 ####[facility] LABCLIA [id number] [place] [address] Hematocrit (Bld) [Volume fraction] 41.1 % Normal 39.0-51.0 [facility] Comment on above: Order Comment: Speci men Type: BLOOD SPECIMENOrdering Facility: [facility] Address: [address] [place] [address] Performed By: #### 5 7021-8 ####[facility] LABCLIA [id number] [place] [address] Hemoglobin (Bld) [Mass/Vol] 14.1 g/dL Normal 13.0-17.0 [facility] Comment on above: Order Comment: Speci men Type: BLOOD SPECIMENOrdering Facility: [facility] Address: [address] [place] [address] Performed By: #### 5 7021-8 ####[facility] LABCLIA [id number] [place] [address] Immature granulocytes (Bld) [#/Vol] 10*3/uL Normal <0.10 [facility] Comment on above: Order Comment: Speci men Type: BLOOD SPECIMENOrdering Facility: [facility] Address: [address] [place] [address] Performed By: #### 5 7021-8 ####[facility] LABCLIA [id number] [place] [address] Immature granulocytes/100 WBC (Bld) 0.4 % Normal [facility] Comment on above: Order Comment: Speci men Type: BLOOD SPECIMENOrdering Facility: [facility] Address: [address] [place] [address] Performed By: #### 5 7021-8 ####[facility] LABCLIA [id number] [place] [address] Lymphocytes (Bld) [#/Vol] 1.02 10*3/uL Normal 1.00-4.00 [facility] Comment on above: Order Comment: Speci men Type: BLOOD SPECIMENOrdering Facility: [facility] Address: [address] [place] [address] Performed By: #### 5 7021-8 ####[facility] LABCLIA [id number] [place] [address] Lymphocytes/100 WBC (Bld) 19.3 % Normal [facility] Comment on above: Order Comment: Speci men Type: BLOOD SPECIMENOrdering Facility: [facility] Address: [address] [place] [address] Performed By: #### 5 7021-8 ####[facility] LABCLIA [id number] [place] [address] MCH (RBC) [Entitic mass] 29.6 pg Normal 26.0-34.0 [facility] Comment on above: Order Comment: Speci men Type: BLOOD SPECIMENOrdering Facility: [facility] Address: [address] [place] [address] Performed By: #### 5 7021-8 ####[facility] LABCLIA [id number] [place] [address] MCHC (RBC) [Mass/Vol] 34.3 g/dL Normal 30.5-36.0 [facility] Comment on above: Order Comment: Speci men Type: BLOOD SPECIMENOrdering Facility: [facility] Address: [address] [place] [address] Performed By: #### 5 7021-8 ####[facility] LABCLIA [id number] [place] [address] MCV (RBC) [Entitic vol] 86.3 fL Normal 80.0-100.0 [facility] Comment on above: Order Comment: Speci men Type: BLOOD SPECIMENOrdering Facility: [facility] Address: [address] [place] [address] Performed By: #### 5 7021-8 ####[facility] LABCLIA [id number] [place] [address] Monocytes (Bld) [#/Vol] 0.52 10*3/uL Normal <0.87 [facility] Comment on above: Order Comment: Speci men Type: BLOOD SPECIMENOrdering Facility: [facility] Address: [address] [place] [address] Performed By: #### 5 7021-8 ####[facility] LABCLIA [id number] [place] [address] Monocytes/100 WBC (Bld) 9.8 % Normal [facility] Comment on above: Order Comment: Speci men Type: BLOOD SPECIMENOrdering Facility: [facility] Address: [address] [place] [address] Performed By: #### 5 7021-8 ####[facility] LABCLIA [id number] [place] [address] Neutrophils (Bld) [#/Vol] 3.12 10*3/uL Normal 1.45-7.50 [facility] Comment on above: Order Comment: Speci men Type: BLOOD SPECIMENOrdering Facility: [facility] Address: [address] [place] [address] Performed By: #### 5 7021-8 ####[facility] LABCLIA [id number] [place] [address] Neutrophils/100 WBC (Bld) 59.1 % Normal [facility] Comment on above: Order Comment: Speci men Type: BLOOD SPECIMENOrdering Facility: [facility] Address: [address] [place] [address] Performed By: #### 5 7021-8 ####[facility] LABCLIA [id number] [place] [address] Nucleated RBC (Bld) [#/Vol] 10*3/uL Normal <0.01 [facility] Comment on above: Order Comment: Speci men Type: BLOOD SPECIMENOrdering Facility: [facility] Address: [address] [place] [address] Performed By: #### 5 7021-8 ####[facility] LABCLIA [id number] [place] [address] Nucleated RBC/100 WBC (Bld) [Ratio] 0.0 /100 WBC Normal [facility] Comment on above: Order Comment: Speci men Type: BLOOD SPECIMENOrdering Facility: [facility] Address: [address] [place] [address] Performed By: #### 5 7021-8 ####[facility] LABIA [id number] [place] [address] Platelet mean volume (Bld) [Entitic vol] 8.8 fL Low 9.0-12.7 [facility] Comment on above: Order Comment: Speci men Type: BLOOD SPECIMENOrdering Facility: [facility] Address: [address] [place] [address] Performed By: #### 5 7021-8 ####[facility] LABCLIA [id number] [place] [address] Platelets (Bld) [#/Vol] 165 10*3/uL Normal 150-400 [facility] Comment on above: Order Comment: Speci men Type: BLOOD SPECIMENOrdering Facility: [facility] Address: [address] [place] [address] Performed By: #### 5 7021-8 ####[facility] LABIA [id number] [place] [address] RBC (Bld) [#/Vol] 4.76 10*6/uL Normal 4.20-6.00 [facility] Comment on above: Order Comment: Speci men Type: BLOOD SPECIMENOrdering Facility: [facility] Address: [address] [place] [address] Performed By: #### 5 7021-8 ####[facility] LABIA [id number] [place] [address] WBC (Bld) [#/Vol] 5.28 10*3/uL Normal 3.70-11.00 [facility] Comment on above: Order Comment: Speci men Type: BLOOD SPECIMENOrdering Facility: [facility] Address: [address] [place] [address] Performed By: #### 5 7021-8 ####[facility] LABCLIA [id number] [place] [address] Comprehensive metabolic 2000 panelOrdered By: Rosemarie Douglas on 02-13-2024 Albumin [Mass/Vol] 4.7 g/dL 3.9 - 4.9 g/dL [facility] ALP [Catalytic activity/Vol] 82 U/L 38 - 113 U/L [facility] ALT [Catalytic activity/Vol] 14 U/L 10 - 54 U/L [facility] Anion gap [Moles/Vol] 10 mmol/L 9 - 18 mmol/L [facility] AST [Catalytic activity/Vol] 14 U/L 14 - 40 U/L [facility] Bilirubin [Mass/Vol] 0.4 mg/dL 0.2 - 1.3 mg/dL [facility] Calcium [Mass/Vol] 9.9 mg/dL 8.5 - 10.2 mg/dL [facility] Chloride [Moles/Vol] 103 mmol/L 97 - 105 mmol/L [facility] CO2 [Moles/Vol] 25 mmol/L 22 - 30 mmol/L [facility] Creatinine [Mass/Vol] 1.26 mg/dL High 0.73 - 1.22 mg/dL [facility] GFR/1.73 sq M.predicted among non-blacks MDRD (S/P/Bld) [Vol rate/Area] 67 mL/min/{1.73_m2} - PINF [facility] Comment on above: Estimated Glomerular Filtration Rate (eGFR) is calculated using the 2020 CKD-EPI creatinine equation. This equation utilizes serum creatinine, sex, and age as parameters. The creatinine assay has traceable calibration to isotope dilution-mass spectrometry. Refer to KDIGO guidelines for clinical interpretation. In patients with unstable renal function, e.g. those with acute kidney injury, the eGFR may not accurately reflect actual GFR. Glucose [Mass/Vol] 105 mg/dL High 74 - 99 mg/dL [facility] Comment on above: The [place] Di[employer] Association (ADA) provides guidance for cutoff values for fasting glucose and random glucose. The ADA defines fasting as no caloric intake for at least 8 hours. Fasting plasma glucose results between 100 to 125 mg/dL indicate increased risk for diabetes (prediabetes). Fasting plasma glucose results greater than or equal to 126 mg/dL meet the criteria for diagnosis of diabetes. In the absence of unequivocal hyperglycemia, results should be confirmed by repeat testing. In a patient with classic symptoms of hyperglycemia or hyperglycemic crisis, random plasma glucose results greater than or equal to 200 mg/dL meet the criteria for diagnosis of diabetes. Reference: Standards of Medical Care in Diabetes 2016, [place] [employer]. Diabetes Care. 2016.39(Suppl 1). Interpretation and review of laboratory results Abnormal [facility] Potassium [Moles/Vol] 4.3 mmol/L 3.7 - 5.1 mmol/L [facility] Protein [Mass/Vol] 7.1 g/dL 6.3 - 8.0 g/dL [facility] Sodium [Moles/Vol] 138 mmol/L 136 - 144 mmol/L [facility] Urea nitrogen [Mass/Vol] 19 mg/dL 9 - 24 mg/dL [facility] Comprehensive metabolic 2000 panelon 02-13-2024 Albumin [Mass/Vol] 4.7 g/dL Normal 3.9-4.9 [facility] Comment on above: Order Comment: Speci men Type: BLOOD SPECIMENOrdering Facility: [facility] Address: [address] [place] [address] Performed By: #### 2 4323-8 ####[facility] LABCLIA [id number] [place] [address] ALP [Catalytic activity/Vol] 82 U/L Normal 38-113 [facility] Comment on above: Order Comment: Speci men Type: BLOOD SPECIMENOrdering Facility: [facility] Address: [address] [place] [address] Performed By: #### 2 4323-8 ####[facility] LABCLIA [id number] [place] [address] ALT [Catalytic activity/Vol] 14 U/L Normal 10-54 [facility] Comment on above: Order Comment: Speci men Type: BLOOD SPECIMENOrdering Facility: [facility] Address: [address] [place] [address] Performed By: #### 2 4323-8 ####[facility] LABCLIA [id number] [place] [address] Anion gap [Moles/Vol] 10 mmol/L Normal 9-18 [facility] Comment on above: Order Comment: Speci men Type: BLOOD SPECIMENOrdering Facility: [facility] Address: [address] [place] [address] Performed By: #### 2 4323-8 ####[facility] LABCLIA [id number] [place] [address] AST [Catalytic activity/Vol] 14 U/L Normal 14-40 [facility] Comment on above: Order Comment: Speci men Type: BLOOD SPECIMENOrdering Facility: [facility] Address: [address] [place] [address] Performed By: #### 2 4323-8 ####[facility] LABCLIA [id number] [place] [address] Bilirubin [Mass/Vol] 0.4 mg/dL Normal 0.2-1.3 [facility] Comment on above: Order Comment: Speci men Type: BLOOD SPECIMENOrdering Facility: [facility] Address: [address] [place] [address] Performed By: #### 2 4323-8 ####[facility] LABCLIA [id number] [place] [address] Calcium [Mass/Vol] 9.9 mg/dL Normal 8.5-10.2 [facility] Comment on above: Order Comment: Speci men Type: BLOOD SPECIMENOrdering Facility: [facility] Address: [address] [place] [address] Performed By: #### 2 4323-8 ####[facility] LABCLIA [id number] [place] [address] Chloride [Moles/Vol] 103 mmol/L Normal 97-105 [facility] Comment on above: Order Comment: Speci men Type: BLOOD SPECIMENOrdering Facility: [facility] Address: [address] [place] [address] Performed By: #### 2 4323-8 ####[facility] LABCLIA [id number] [place] [address] CO2 [Moles/Vol] 25 mmol/L Normal 22-30 [facility] Comment on above: Order Comment: Speci men Type: BLOOD SPECIMENOrdering Facility: [facility] Address: [address] [place] [address] Performed By: #### 2 4323-8 ####[facility] LABCLIA [id number] [place] [address] Creatinine [Mass/Vol] 1.26 mg/dL High 0.73-1.22 [facility] Comment on above: Order Comment: Richard perez Type: BLOOD SPECIMENOrdering Facility: [facility] Address: [address] [place] [address] Performed By: #### 2 4323-8 ####[facility] LABCLIA [id number] [place] [address] Creatinine and Glomerular filtration rate.predicted panel (S/P/Bld) 67 mL/min/1.73m??? Normal >=60 [facility] Comment on above: Order Comment: Richard perez Type: BLOOD SPECIMENOrdering Facility: [facility] Address: [address] [place] [address] Result Comment: Torri mated Glomerular Filtration Rate (eGFR) is calculated using the 2020 CKD-EPI creatinine equation. This equation utilizes serum creatinine, sex, and age as parameters. The creatinine assay has traceable calibration to isotope dilution-mass spectrometry. Refer to KDIGO guidelines for clinical interpretation. In patients with unstable renal function, e.g. those with acute kidney injury, the eGFR may not accurately reflect actual GFR. Performed By: #### 2 4323-8 ####[facility] LABCLIA [id number] [place] [address] Glucose [Mass/Vol] 105 mg/dL High 74-99 [facility] Comment on above: Order Comment: Richard perez Type: BLOOD SPECIMENOrdering Facility: [facility] Address: [address] [place] [address] Result Comment: The [place] Diabetes Association (ADA) provides guidance for cutoff values for fasting glucose and random glucose. The ADA defines fasting as no caloric intake for at least 8 hours. Fasting plasma glucose results between 100 to 125 mg/dL indicate increased risk for diabetes (prediabetes).Fasting plasma glucose results greater than or equal to 126 mg/dL meet the criteria for diagnosis of diabetes. In the absence of unequivocal hyperglycemia, results should be confirmed by repeat testing. In a patient with classic symptoms of hyperglycemia or hyperglycemic crisis, random plasma glucose results greater than or equal to 200 mg/dL meet the criteria for diagnosis of diabetes.Reference: Standards of Medical Care in Diabetes 2016, [place] [employer]. Diabetes Care. 2016.39(Suppl 1). Performed By: #### 2 4323-8 ####[facility] LABCLIA [id number] [place] [address] Potassium [Moles/Vol] 4.3 mmol/L Normal 3.7-5.1 [facility] Comment on above: Order Comment: Speci men Type: BLOOD SPECIMENOrdering Facility: [facility] Address: [address] [place] [address] Performed By: #### 2 4323-8 ####[facility] LABCLIA [id number] [place] [address] Protein [Mass/Vol] 7.1 g/dL Normal 6.3-8.0 [facility] Comment on above: Order Comment: Speci men Type: BLOOD SPECIMENOrdering Facility: [facility] Address: [address] [place] [address] Performed By: #### 2 4323-8 ####[facility] LABCLIA [id number] [place] [address] Sodium [Moles/Vol] 138 mmol/L Normal 136-144 [facility] Comment on above: Order Comment: Speci men Type: BLOOD SPECIMENOrdering Facility: [facility] Address: [address] [place] [address] Performed By: #### 2 4323-8 ####[facility] LABCLIA [id number] [place] [address] Urea nitrogen [Mass/Vol] 19 mg/dL Normal 9-24 [facility] Comment on above: Order Comment: Speci men Type: BLOOD SPECIMENOrdering Facility: [facility] Address: [address] [place] [address] Performed By: #### 2 4323-8 ####[facility] LABCLIA [id number] [place] [id number] TSH BLDon 02-13-2024 TSH Qn 4.720 m[IU]/L High [facility] TSH Qnon 02-13-2024 Interpretation and review of laboratory results Abnormal [facility] TSH SerPl-aCncon 02-13-2024 TSH Qn 4.720 m[IU]/L High 0.270-4.200 [facility] Comment on above: Order Comment: Speci men Type: BLOOD SPECIMENOrdering Facility: [facility] Address: [address] [place] [address] Performed By: #### 3 016-3 ####[facility] LABCLIA [id number] [place] [address] [place] CBC W Auto Differential pane l (Bld)on 01-02-2024 Basophils (Bld) [#/Vol] 0.04 10*3/uL Normal <0.11 [facility] Comment on above: Order Comment: Speci men Type: BLOOD SPECIMENOrdering Facility: [facility] Address: [address] [place] [address] Performed By: #### 5 7021-8 ####[facility] LABIA [id number] [place] [id number] Basophils/100 WBC (Bld) 0.9 % Normal [facility] Comment on above: Order Comment: Speci men Type: BLOOD SPECIMENOrdering Facility: [facility] Address: [address] [place] [address] Performed By: #### 5 7021-8 ####[facility] LABCLIA [id number] [place] [address] Differential cell count method Nom (Bld) Auto Normal [facility] Comment on above: Order Comment: Speci men Type: BLOOD SPECIMENOrdering Facility: [facility] Address: [address] [place] [address] Performed By: #### 5 7021-8 ####[facility] LABCLIA [id number] [place] [address] Eosinophils (Bld) [#/Vol] 0.22 10*3/uL Normal <0.46 [facility] Comment on above: Order Comment: Speci men Type: BLOOD SPECIMENOrdering Facility: [facility] Address: [address] [place] [address] Performed By: #### 5 7021-8 ####[facility] LABCLIA [id number] [place] [address] Eosinophils/100 WBC (Bld) 4.9 % Normal [facility] Comment on above: Order Comment: Speci men Type: BLOOD SPECIMENOrdering Facility: [facility] Address: [address] [place] [address] Performed By: #### 5 7021-8 ####[facility] LABCLIA [id number] [place] [address] Erythrocyte distribution width (RBC) [Ratio] 14.4 % Normal 11.5-15.0 [facility] Comment on above: Order Comment: Speci men Type: BLOOD SPECIMENOrdering Facility: [facility] Address: [address] [place] [address] Performed By: #### 5 7021-8 ####[facility] LABCLIA [id number] [place] [address] Hematocrit (Bld) [Volume fraction] 39.2 % Normal 39.0-51.0 [facility] Comment on above: Order Comment: Speci men Type: BLOOD SPECIMENOrdering Facility: [facility] Address: [address] [place] [address] Performed By: #### 5 7021-8 ####[facility] LABCLIA [id number] [place] [address] Hemoglobin (Bld) [Mass/Vol] 13.4 g/dL Normal 13.0-17.0 [facility] Comment on above: Order Comment: Speci men Type: BLOOD SPECIMENOrdering Facility: [facility] Address: [address] [place] [address] Performed By: #### 5 7021-8 ####[facility] LABCLIA [id number] [place] [address] Immature granulocytes (Bld) [#/Vol] 10*3/uL Normal <0.10 [facility] Comment on above: Order Comment: Speci men Type: BLOOD SPECIMENOrdering Facility: [facility] Address: [address] [place] [address] Performed By: #### 5 7021-8 ####[facility] LABCLIA [id number] [place] [address] Immature granulocytes/100 WBC (Bld) 0.4 % Normal [facility] Comment on above: Order Comment: Speci men Type: BLOOD SPECIMENOrdering Facility: [facility] Address: [address] [place] [address] Performed By: #### 5 7021-8 ####[facility] LABCLIA [id number] [place] [address] Lymphocytes (Bld) [#/Vol] 0.85 10*3/uL Low 1.00-4.00 [facility] Comment on above: Order Comment: Speci men Type: BLOOD SPECIMENOrdering Facility: [facility] Address: [address] [place] [address] Performed By: #### 5 7021-8 ####[facility] LABCLIA [id number] [place] [address] Lymphocytes/100 WBC (Bld) 19.0 % Normal [facility] Comment on above: Order Comment: Speci men Type: BLOOD SPECIMENOrdering Facility: [facility] Address: [address] [place] [address] Performed By: #### 5 7021-8 ####[facility] LABCLIA [id number] [place] [address] MCH (RBC) [Entitic mass] 29.3 pg Normal 26.0-34.0 [facility] Comment on above: Order Comment: Speci men Type: BLOOD SPECIMENOrdering Facility: [facility] Address: [address] [place] [address] Performed By: #### 5 7021-8 ####[facility] LABCLIA [id number] [place] [address] MCHC (RBC) [Mass/Vol] 34.2 g/dL Normal 30.5-36.0 [facility] Comment on above: Order Comment: Speci men Type: BLOOD SPECIMENOrdering Facility: [facility] Address: [address] [place] [address] Performed By: #### 5 7021-8 ####[facility] LABCLIA [id number] [place] [address] MCV (RBC) [Entitic vol] 85.6 fL Normal 80.0-100.0 [facility] Comment on above: Order Comment: Speci men Type: BLOOD SPECIMENOrdering Facility: [facility] Address: [address] [place] [address] Performed By: #### 5 7021-8 ####[facility] LABCLIA [id number] [place] [address] Monocytes (Bld) [#/Vol] 0.71 10*3/uL Normal <0.87 [facility] Comment on above: Order Comment: Speci men Type: BLOOD SPECIMENOrdering Facility: [facility] Address: [address] [place] [address] Performed By: #### 5 7021-8 ####[facility] LABCLIA [id number] [place] [address] Monocytes/100 WBC (Bld) 15.8 % Normal [facility] Comment on above: Order Comment: Speci men Type: BLOOD SPECIMENOrdering Facility: [facility] Address: [address] [place] [address] Performed By: #### 5 7021-8 ####[facility] LABCLIA [id number] [place] [address] Neutrophils (Bld) [#/Vol] 2.64 10*3/uL Normal 1.45-7.50 [facility] Comment on above: Order Comment: Speci men Type: BLOOD SPECIMENOrdering Facility: [facility] Address: [address] [place] [address] Performed By: #### 5 7021-8 ####[facility] LABCLIA [id number] [place] [address] Neutrophils/100 WBC (Bld) 59.0 % Normal [facility] Comment on above: Order Comment: Speci men Type: BLOOD SPECIMENOrdering Facility: [facility] Address: [address] [place] [address] Performed By: #### 5 7021-8 ####[facility] LABCLIA [id number] [place] [address] Nucleated RBC (Bld) [#/Vol] 10*3/uL Normal <0.01 [facility] Comment on above: Order Comment: Speci men Type: BLOOD SPECIMENOrdering Facility: [facility] Address: [address] [place] [address] Performed By: #### 5 7021-8 ####[facility] LABCLIA [id number] [place] [address] Nucleated RBC/100 WBC (Bld) [Ratio] 0.0 /100 WBC Normal [facility] Comment on above: Order Comment: Speci men Type: BLOOD SPECIMENOrdering Facility: [facility] Address: [address] [place] [address] Performed By: #### 5 7021-8 ####[facility] LABIA [id number] [place] [address] Platelet mean volume (Bld) [Entitic vol] 8.9 fL Low 9.0-12.7 [facility] Comment on above: Order Comment: Speci men Type: BLOOD SPECIMENOrdering Facility: [facility] Address: [address] [place] [address] Performed By: #### 5 7021-8 ####[facility] LABIA [id number] [place] [address] Platelets (Bld) [#/Vol] 119 10*3/uL Low 150-400 [facility] Comment on above: Order Comment: Speci men Type: BLOOD SPECIMENOrdering Facility: [facility] Address: [address] [place] [address] Performed By: #### 5 7021-8 ####[facility] LABIA [id number] [place] [address] RBC (Bld) [#/Vol] 4.58 10*6/uL Normal 4.20-6.00 [facility] Comment on above: Order Comment: Speci men Type: BLOOD SPECIMENOrdering Facility: [facility] Address: [address] [place] [address] Performed By: #### 5 7021-8 ####[facility] LABIA [id number] [place] [address] WBC (Bld) [#/Vol] 4.48 10*3/uL Normal 3.70-11.00 [facility] Comment on above: Order Comment: Speci men Type: BLOOD SPECIMENOrdering Facility: [facility] Address: [address] [place] [address] Performed By: #### 5 7021-8 ####[facility] LABIA [id number] [place] [address] CNOVSPon 01-02-2024 CNOVSP Normal [facility] Comprehensive metabolic 2000 panelon 01-02-2024 Albumin [Mass/Vol] 4.8 g/dL Normal 3.9-4.9 [facility] Comment on above: Order Comment: Speci men Type: BLOOD SPECIMENOrdering Facility: [facility] Address: [address] [place] [address] Performed By: #### 2 4323-8 ####[facility] LABCLIA [id number] [place] [address] ALP [Catalytic activity/Vol] 84 U/L Normal 38-113 [facility] Comment on above: Order Comment: Speci men Type: BLOOD SPECIMENOrdering Facility: [facility] Address: [address] [place] [address] Performed By: #### 2 4323-8 ####[facility] LABCLIA [id number] [place] [address] ALT [Catalytic activity/Vol] 15 U/L Normal 10-54 [facility] Comment on above: Order Comment: Speci men Type: BLOOD SPECIMENOrdering Facility: [facility] Address: [address] [place] [address] Performed By: #### 2 4323-8 ####[facility] LABCLIA [id number] [place] [address] Anion gap [Moles/Vol] 11 mmol/L Normal 9-18 [facility] Comment on above: Order Comment: Speci men Type: BLOOD SPECIMENOrdering Facility: [facility] Address: [address] [place] [address] Performed By: #### 2 4323-8 ####[facility] LABCLIA [id number] [place] [address] AST [Catalytic activity/Vol] 14 U/L Normal 14-40 [facility] Comment on above: Order Comment: Speci men Type: BLOOD SPECIMENOrdering Facility: [facility] Address: [address] [place] [address] Performed By: #### 2 4323-8 ####[facility] LABCLIA [id number] [place] [address] Bilirubin [Mass/Vol] 0.5 mg/dL Normal 0.2-1.3 [facility] Comment on above: Order Comment: Speci men Type: BLOOD SPECIMENOrdering Facility: [facility] Address: [address] [place] [address] Performed By: #### 2 4323-8 ####[facility] LABCLIA [id number] [place] [address] Calcium [Mass/Vol] 10.1 mg/dL Normal 8.5-10.2 [facility] Comment on above: Order Comment: Speci men Type: BLOOD SPECIMENOrdering Facility: [facility] Address: [address] [place] [address] Performed By: #### 2 4323-8 ####[facility] LABCLIA [id number] [place] [address] Chloride [Moles/Vol] 104 mmol/L Normal 97-105 [facility] Comment on above: Order Comment: Speci men Type: BLOOD SPECIMENOrdering Facility: [facility] Address: [address] [place] [address] Performed By: #### 2 4323-8 ####[facility] LABCLIA [id number] [place] [address] CO2 [Moles/Vol] 25 mmol/L Normal 22-30 [facility] Comment on above: Order Comment: Speci men Type: BLOOD SPECIMENOrdering Facility: [facility] Address: [address] [place] [address] Performed By: #### 2 4323-8 ####[facility] LABCLIA [id number] [place] [address] Creatinine [Mass/Vol] 1.39 mg/dL High 0.73-1.22 [facility] Comment on above: Order Comment: Speci men Type: BLOOD SPECIMENOrdering Facility: [facility] Address: [address] [place] [address] Performed By: #### 2 4323-8 ####[facility] LABCLIA [id number] [place] [address] Creatinine and Glomerular filtration rate.predicted panel (S/P/Bld) 59 mL/min/1.73m??? Low >=60 [facility] Comment on above: Order Comment: Richard perez Type: BLOOD SPECIMENOrdering Facility: [facility] Address: [address] [place] [address] Result Comment: Torri mated Glomerular Filtration Rate (eGFR) is calculated using the 2020 CKD-EPI creatinine equation. This equation utilizes serum creatinine, sex, and age as parameters. The creatinine assay has traceable calibration to isotope dilution-mass spectrometry. Refer to KDIGO guidelines for clinical interpretation. In patients with unstable renal function, e.g. those with acute kidney injury, the eGFR may not accurately reflect actual GFR. Performed By: #### 2 4323-8 ####[facility] LABCLIA [id number] [place] [address] Glucose [Mass/Vol] 72 mg/dL Low 74-99 [facility] Comment on above: Order Comment: Richard perez Type: BLOOD SPECIMENOrdering Facility: [facility] Address: [address] [place] [address] Result Comment: The [place] [employer] (ADA) provides guidance for cutoff values for fasting glucose and random glucose. The ADA defines fasting as no caloric intake for at least 8 hours. Fasting plasma glucose results between 100 to 125 mg/dL indicate increased risk for diabetes (prediabetes).Fasting plasma glucose results greater than or equal to 126 mg/dL meet the criteria for diagnosis of diabetes. In the absence of unequivocal hyperglycemia, results should be confirmed by repeat testing. In a patient with classic symptoms of hyperglycemia or hyperglycemic crisis, random plasma glucose results greater than or equal to 200 mg/dL meet the criteria for diagnosis of diabetes.Reference: Standards of Medical Care in Diabetes 2016, [place] [employer]. Diabetes Care. 2016.39(Suppl 1). Performed By: #### 2 4323-8 ####[facility] LABCLIA [id number] [place] [address] Potassium [Moles/Vol] 4.2 mmol/L Normal 3.7-5.1 [facility] Comment on above: Order Comment: Richard perez Type: BLOOD SPECIMENOrdering Facility: [facility] Address: [address] [place] [address] Performed By: #### 2 4323-8 ####[facility] LABCLIA [id number] [place] [address] Protein [Mass/Vol] 7.2 g/dL Normal 6.3-8.0 [facility] Comment on above: Order Comment: Speci men Type: BLOOD SPECIMENOrdering Facility: [facility] [facility] Address: [address] [place] [address] Performed By: #### 2 4323-8 ####[facility] LABCLIA [id number] [place] [address] Sodium [Moles/Vol] 140 mmol/L Normal 136-144 [facility] Comment on above: Order Comment: Speci men Type: BLOOD SPECIMENOrdering Facility: [facility] Address: [address] [place] [address] Performed By: #### 2 4323-8 ####[facility] LABCLIA [id number] [place] [address] Urea nitrogen [Mass/Vol] 17 mg/dL Normal 9-24 [facility] Comment on above: Order Comment: Speci men Type: BLOOD SPECIMENOrdering Facility: [facility] Address: [address] [place] [address] Performed By: #### 2 4323-8 ####[facility] LABCLIA [id number] [place] [address] TSH SerPl-aCncon 01-02-2024 TSH Qn 7.450 m[IU]/L High 0.270-4.200 [facility] Comment on above: Order Comment: Speci men Type: BLOOD SPECIMENOrdering Facility: [facility] Address: [address] [place] [address] Performed By: #### 3 016-3 ####[facility] LABCLIA [id number] [facility] [id number] STATES OF [facility] 12-13-2023 CNPN Normal [facility] CBC W Auto Differential pane l (Bld)on 12-12-2023 Basophils (Bld) [#/Vol] 0.04 10*3/uL Normal <0.11 [facility] Comment on above: Order Comment: Speci men Type: BLOOD SPECIMENOrdering Facility: [facility] Address: [address] [place] [address] Performed By: #### 5 7021-8 ####[facility] LABCLIA [id number] [place] [address] Basophils/100 WBC (Bld) 0.9 % Normal [facility] Comment on above: Order Comment: Speci men Type: BLOOD SPECIMENOrdering Facility: [facility] Address: [address] [place] [address] Performed By: #### 5 7021-8 ####[facility] LABCLIA [id number] [place] [address] Differential cell count method Nom (Bld) Auto Normal [facility] Comment on above: Order Comment: Speci men Type: BLOOD SPECIMENOrdering Facility: [facility] Address: [address] [place] [address] Performed By: #### 5 7021-8 ####[facility] LABCLIA [id number] [place] [address] Eosinophils (Bld) [#/Vol] 0.28 10*3/uL Normal <0.46 [facility] Comment on above: Order Comment: Speci men Type: BLOOD SPECIMENOrdering Facility: [facility] Address: [address] [place] [address] Performed By: #### 5 7021-8 ####[facility] LABCLIA [id number] [place] [address] Eosinophils/100 WBC (Bld) 6.0 % Normal [facility] Comment on above: Order Comment: Speci men Type: BLOOD SPECIMENOrdering Facility: [facility] Address: [address] [place] [address] Performed By: #### 5 7021-8 ####[facility] LABCLIA [id number] [place] [address] Erythrocyte distribution width (RBC) [Ratio] 15.0 % Normal 11.5-15.0 [facility] Comment on above: Order Comment: Speci men Type: BLOOD SPECIMENOrdering Facility: [facility] Address: [address] [place] [address] Performed By: #### 5 7021-8 ####[facility] LABCLIA [id number] [place] [address] Hematocrit (Bld) [Volume fraction] 38.8 % Low 39.0-51.0 [facility] Comment on above: Order Comment: Speci men Type: BLOOD SPECIMENOrdering Facility: [facility] Address: [address] [place] [address] Performed By: #### 5 7021-8 ####[facility] LABCLIA [id number] [place] [address] Hemoglobin (Bld) [Mass/Vol] 13.2 g/dL Normal 13.0-17.0 [facility] Comment on above: Order Comment: Speci men Type: BLOOD SPECIMENOrdering Facility: [facility] Address: [address] [place] [address] Performed By: #### 5 7021-8 ####[facility] LABCLIA [id number] [place] [address] Immature granulocytes (Bld) [#/Vol] 10*3/uL Normal <0.10 [facility] Comment on above: Order Comment: Speci men Type: BLOOD SPECIMENOrdering Facility: [facility] Address: [address] [place] [address] Performed By: #### 5 7021-8 ####[facility] LABIA [id number] [place] [address] Immature granulocytes/100 WBC (Bld) 0.2 % Normal [facility] Comment on above: Order Comment: Speci men Type: BLOOD SPECIMENOrdering Facility: [facility] Address: [address] [place] [address] Performed By: #### 5 7021-8 ####[facility] LABCLIA [id number] [place] [address] Lymphocytes (Bld) [#/Vol] 0.80 10*3/uL Low 1.00-4.00 [facility] Comment on above: Order Comment: Speci men Type: BLOOD SPECIMENOrdering Facility: [facility] Address: [address] [place] [address] Performed By: #### 5 7021-8 ####[facility] LABCLIA [id number] [place] [address] Lymphocytes/100 WBC (Bld) 17.1 % Normal [facility] Comment on above: Order Comment: Speci men Type: BLOOD SPECIMENOrdering Facility: [facility] Address: [address] [place] [address] Performed By: #### 5 7021-8 ####[facility] LABCLIA [id number] [place] [address] MCH (RBC) [Entitic mass] 29.6 pg Normal 26.0-34.0 [facility] Comment on above: Order Comment: Speci men Type: BLOOD SPECIMENOrdering Facility: [facility] Address: [address] [place] [address] Performed By: #### 5 7021-8 ####[facility] LABCLIA [id number] [place] [address] MCHC (RBC) [Mass/Vol] 34.0 g/dL Normal 30.5-36.0 [facility] Comment on above: Order Comment: Speci men Type: BLOOD SPECIMENOrdering Facility: [facility] Address: [address] [place] [address] Performed By: #### 5 7021-8 ####[facility] LABCLIA [id number] [place] [address] MCV (RBC) [Entitic vol] 87.0 fL Normal 80.0-100.0 [facility] Comment on above: Order Comment: Speci men Type: BLOOD SPECIMENOrdering Facility: [facility] Address: [address] [place] [address] Performed By: #### 5 7021-8 ####[facility] LABCLIA [id number] [place] [address] Monocytes (Bld) [#/Vol] 0.50 10*3/uL Normal <0.87 [facility] Comment on above: Order Comment: Speci men Type: BLOOD SPECIMENOrdering Facility: [facility] Address: [address] [place] [address] Performed By: #### 5 7021-8 ####[facility] LABCLIA [id number] [place] [address] Monocytes/100 WBC (Bld) 10.7 % Normal [facility] Comment on above: Order Comment: Speci men Type: BLOOD SPECIMENOrdering Facility: [facility] Address: [address] [place] [address] Performed By: #### 5 7021-8 ####[facility] LABCLIA [id number] [place] [address] Neutrophils (Bld) [#/Vol] 3.04 10*3/uL Normal 1.45-7.50 [facility] Comment on above: Order Comment: Speci men Type: BLOOD SPECIMENOrdering Facility: [facility] Address: [address] [place] [address] Performed By: #### 5 7021-8 ####[facility] LABCLIA [id number] [place] [address] Neutrophils/100 WBC (Bld) 65.1 % Normal [facility] Comment on above: Order Comment: Speci men Type: BLOOD SPECIMENOrdering Facility: [facility] Address: [address] [place] [address] Performed By: #### 5 7021-8 ####[facility] LABCLIA [id number] [place] [address] Nucleated RBC (Bld) [#/Vol] 10*3/uL Normal <0.01 [facility] Comment on above: Order Comment: Speci men Type: BLOOD SPECIMENOrdering Facility: [facility] Address: [address] [place] [address] Performed By: #### 5 7021-8 ####[facility] LABCLIA [id number] [place] [address] Nucleated RBC/100 WBC (Bld) [Ratio] 0.0 /100 WBC Normal [facility] Comment on above: Order Comment: Speci men Type: BLOOD SPECIMENOrdering Facility: [facility] Address: [address] [place] [address] Performed By: #### 5 7021-8 ####[facility] LABCLIA [id number] [place] [address] Platelet mean volume (Bld) [Entitic vol] 7.8 fL Low 9.0-12.7 [facility] Comment on above: Order Comment: Speci men Type: BLOOD SPECIMENOrdering Facility: [facility] Address: [address] [place] [address] Performed By: #### 5 7021-8 ####[facility] LABCLIA [id number] [place] [address] Platelets (Bld) [#/Vol] 144 10*3/uL Low 150-400 [facility] Comment on above: Order Comment: Speci men Type: BLOOD SPECIMENOrdering Facility: [facility] Address: [address] [place] [address] Performed By: #### 5 7021-8 ####[facility] LABCLIA [id number] [place] [address] RBC (Bld) [#/Vol] 4.46 10*6/uL Normal 4.20-6.00 [facility] Comment on above: Order Comment: Speci men Type: BLOOD SPECIMENOrdering Facility: [facility] Address: [address] [place] [address] Performed By: #### 5 7021-8 ####[facility] LABIA [id number] [place] [address] WBC (Bld) [#/Vol] 4.67 10*3/uL Normal 3.70-11.00 [facility] Comment on above: Order Comment: Speci men Type: BLOOD SPECIMENOrdering Facility: [facility] Address: [address] [place] [address] Performed By: #### 5 7021-8 ####[facility] LABIA [id number] [place] [address] CNOVSPon 12-12-2023 CNOVSP Normal [facility] Comprehensive metabolic 2000 panelon 12-12-2023 Albumin [Mass/Vol] 4.6 g/dL Normal 3.9-4.9 [facility] Comment on above: Order Comment: Speci men Type: BLOOD SPECIMENOrdering Facility: [facility] Address: [address] [place] [address] Performed By: #### 2 4323-8 ####[facility] LABIA [id number] [place] [address] ALP [Catalytic activity/Vol] 83 U/L Normal 38-113 [facility] Comment on above: Order Comment: Speci men Type: BLOOD SPECIMENOrdering Facility: [facility] Address: [address] [place] [address] Performed By: #### 2 4323-8 ####[facility] LABCLIA [id number] [place] [address] ALT [Catalytic activity/Vol] 16 U/L Normal 10-54 [facility] Comment on above: Order Comment: Speci men Type: BLOOD SPECIMENOrdering Facility: [facility] Address: [address] [place], [place] [address] Performed By: #### 2 4323-8 ####[facility] LABCLIA [id number] [place] [address] Anion gap [Moles/Vol] 11 mmol/L Normal 9-18 [facility] Comment on above: Order Comment: Speci men Type: BLOOD SPECIMENOrdering Facility: [facility] Address: [address] [place], [place] [address] Performed By: #### 2 4323-8 ####[facility] LABCLIA [id number] [place] [address] AST [Catalytic activity/Vol] 16 U/L Normal 14-40 [facility] Comment on above: Order Comment: Speci men Type: BLOOD SPECIMENOrdering Facility: [facility] Address: [address] [place] [address] Performed By: #### 2 4323-8 ####[facility] LABCLIA [id number] [place] [address] Bilirubin [Mass/Vol] 0.4 mg/dL Normal 0.2-1.3 [facility] Comment on above: Order Comment: Speci men Type: BLOOD SPECIMENOrdering Facility: [facility] Address: [address] [place], [place] [address] Performed By: #### 2 4323-8 ####[facility] LABCLIA [id number] [place] [address] Calcium [Mass/Vol] 9.9 mg/dL Normal 8.5-10.2 [facility] Comment on above: Order Comment: Speci men Type: BLOOD SPECIMENOrdering Facility: [facility] Address: [address] [place], [place] [address] Performed By: #### 2 4323-8 ####[facility] LABCLIA [id number] [place] [address] Chloride [Moles/Vol] 105 mmol/L Normal 97-105 [facility] Comment on above: Order Comment: Speci men Type: BLOOD SPECIMENOrdering Facility: [facility] Address: [address] [place] [address] Performed By: #### 2 4323-8 ####[facility] LABCLIA [id number] [place] [address] CO2 [Moles/Vol] 26 mmol/L Normal 22-30 [facility] Comment on above: Order Comment: Speci men Type: BLOOD SPECIMENOrdering Facility: [facility] Address: [address] [place] [address] Performed By: #### 2 4323-8 ####[facility] LABCLIA [id number] [place] [address] Creatinine [Mass/Vol] 1.37 mg/dL High 0.73-1.22 [facility] Comment on above: Order Comment: Speci men Type: BLOOD SPECIMENOrdering Facility: [facility] Address: [address] [place] [address] Performed By: #### 2 4323-8 ####[facility] LABCLIA [id number] [place] [address] Creatinine and Glomerular filtration rate.predicted panel (S/P/Bld) 60 mL/min/1.73m??? Normal >=60 [facility] Comment on above: Order Comment: Speci men Type: BLOOD SPECIMENOrdering Facility: [facility] Address: [address] [place] [address] Result Comment: Torri mated Glomerular Filtration Rate (eGFR) is calculated using the 2020 CKD-EPI creatinine equation. This equation utilizes serum creatinine, sex, and age as parameters. The creatinine assay has traceable calibration to isotope dilution-mass spectrometry. Refer to KDIGO guidelines for clinical interpretation. In patients with unstable renal function, e.g. those with acute kidney injury, the eGFR may not accurately reflect actual GFR. Performed By: #### 2 4323-8 ####[facility] LABCLIA [id number] [place] [address] Glucose [Mass/Vol] 113 mg/dL High 74-99 [facility] Comment on above: Order Comment: Speci men Type: BLOOD SPECIMENOrdering Facility: [facility] Address: [address] [place] [address] Result Comment: The [place] [employer] (ADA) provides guidance for cutoff values for fasting glucose and random glucose. The ADA defines fasting as no caloric intake for at least 8 hours. Fasting plasma glucose results between 100 to 125 mg/dL indicate increased risk for diabetes (prediabetes).Fasting plasma glucose results greater than or equal to 126 mg/dL meet the criteria for diagnosis of diabetes. In the absence of unequivocal hyperglycemia, results should be confirmed by repeat testing. In a patient with classic symptoms of hyperglycemia or hyperglycemic crisis, random plasma glucose results greater than or equal to 200 mg/dL meet the criteria for diagnosis of diabetes.Reference: Standards of Medical Care in Diabetes 2016, [place] [employer]. Diabetes Care. 2016.39(Suppl 1). Performed By: #### 2 4323-8 ####[facility] LABCLIA [id number] [place] [address] Potassium [Moles/Vol] 4.3 mmol/L Normal 3.7-5.1 [facility] Comment on above: Order Comment: Speci men Type: BLOOD SPECIMENOrdering Facility: [facility] Address: [address] [place] [address] Performed By: #### 2 4323-8 ####[facility] LABCLIA [id number] [place] [address] Protein [Mass/Vol] 7.1 g/dL Normal 6.3-8.0 [facility] Comment on above: Order Comment: Speci men Type: BLOOD SPECIMENOrdering Facility: [facility] Address: [address] [place], [place] [address] Performed By: #### 2 4323-8 ####[facility] LABCLIA [id number] [place] [address] Sodium [Moles/Vol] 142 mmol/L Normal 136-144 [facility] Comment on above: Order Comment: Speci men Type: BLOOD SPECIMENOrdering Facility: [facility] Address: [address] [place] [address] Performed By: #### 2 4323-8 ####[facility] LABCLIA [id number] [place] [address] Urea nitrogen [Mass/Vol] 20 mg/dL Normal 9-24 [facility] Comment on above: Order Comment: Speci men Type: BLOOD SPECIMENOrdering Facility: [facility] Address: [address] [place], [place] [address] [address] Performed By: #### 2 4323-8 ####[facility] LABCLIA [id number] [place] [address] TSH SerPl-aCncon 12-12-2023 TSH Qn 14.400 m[IU]/L High 0.270-4.200 [facility] Comment on above: Order Comment: Speci men Type: BLOOD SPECIMENOrdering Facility: [facility] Address: [address] [place], [place] [address] [address] Performed By: #### 3 016-3 ####[facility] LABCLIA [id number] [facility] [place] [address] [place] CREATININE BLDOrdered By: Karan Nava on 12-08-2023 Creatinine [Mass/Vol] 1.31 mg/dL High 0.73 - 1.22 mg/dL [facility] GFR/1.73 sq M.predicted among non-blacks MDRD (S/P/Bld) [Vol rate/Area] 63 mL/min/{1.73_m2} - PINF [facility] Comment on above: Estimated Glomerular Filtration Rate (eGFR) is calculated using the 2020 CKD-EPI creatinine equation. This equation utilizes serum creatinine, sex, and age as parameters. The creatinine assay has traceable calibration to isotope dilution-mass spectrometry. Refer to KDIGO guidelines for clinical interpretation. In patients with unstable renal function, e.g. those with acute kidney injury, the eGFR may not accurately reflect actual GFR. Interpretation and review of laboratory results Abnormal [facility] CREATININE BLDon 12-08-2023 Creatinine [Mass/Vol] 1.31 mg/dL High 0.73-1.22 [facility] Comment on above: Order Comment: Speci men Type: BLOOD SPECIMENOrdering Facility: [facility] Address: [address] [place] [address] Performed By: #### C RET1 ####[facility] LABCLIA [id number] [place] [address] Creatinine and Glomerular filtration rate.predicted panel (S/P/Bld) 63 mL/min/1.73m??? Normal >=60 [facility] Comment on above: Order Comment: Speci men Type: BLOOD SPECIMENOrdering Facility: [facility] Address: [address] [place] [address] Result Comment: Torri mated Glomerular Filtration Rate (eGFR) is calculated using the 2020 CKD-EPI creatinine equation. This equation utilizes serum creatinine, sex, and age as parameters. The creatinine assay has traceable calibration to isotope dilution-mass spectrometry. Refer to KDIGO guidelines for clinical interpretation. In patients with unstable renal function, e.g. those with acute kidney injury, the eGFR may not accurately reflect actual GFR. Performed By: #### C RET1 ####[facility] LABCLIA [id number] [place] [address] CT ABD/PEL W IVCONon 024 CT ABD/PEL W IVCON Normal [facility] CT CHEST W IVCONon 4 CT CHEST W IVCON Normal [facility] CNPNon 11-15-2023 CNPN Normal [facility] CBC W Auto Differential pane l (Bld)on 11-14-2023 Basophils (Bld) [#/Vol] 0.05 10*3/uL Normal <0.11 [facility] Comment on above: Order Comment: Speci men Type: BLOOD SPECIMENOrdering Facility: [facility] Address: [address] [place] [address] Performed By: #### 5 7021-8 ####[facility] LABCLIA [id number] [place] [address] Basophils/100 WBC (Bld) 1.0 % Normal [facility] Comment on above: Order Comment: Speci men Type: BLOOD SPECIMENOrdering Facility: [facility] Address: [address] [place] [address] Performed By: #### 5 7021-8 ####[facility] LABCLIA [id number] [place] [address] Differential cell count method Nom (Bld) Auto Normal [facility] Comment on above: Order Comment: Speci men Type: BLOOD SPECIMENOrdering Facility: [facility] Address: [address] [place] [address] Performed By: #### 5 7021-8 ####[facility] LABCLIA [id number] [place] [address] Eosinophils (Bld) [#/Vol] 0.21 10*3/uL Normal <0.46 [facility] Comment on above: Order Comment: Speci men Type: BLOOD SPECIMENOrdering Facility: [facility] Address: [address] [place] [address] Performed By: #### 5 7021-8 ####[facility] LABCLIA [id number] [place] [address] Eosinophils/100 WBC (Bld) 4.1 % Normal [facility] Comment on above: Order Comment: Speci men Type: BLOOD SPECIMENOrdering Facility: [facility] Address: [address] [place] [address] Performed By: #### 5 7021-8 ####[facility] LABCLIA [id number] [place] [address] Erythrocyte distribution width (RBC) [Ratio] 13.7 % Normal 11.5-15.0 [facility] Comment on above: Order Comment: Speci men Type: BLOOD SPECIMENOrdering Facility: [facility] Address: [address] [place] [address] Performed By: #### 5 7021-8 ####[facility] LABCLIA [id number] [place] [address] Hematocrit (Bld) [Volume fraction] 40.4 % Normal 39.0-51.0 [facility] Comment on above: Order Comment: Speci men Type: BLOOD SPECIMENOrdering Facility: [facility] Address: [address] [place] [address] Performed By: #### 5 7021-8 ####[facility] LABCLIA [id number] [place] [address] Hemoglobin (Bld) [Mass/Vol] 13.7 g/dL Normal 13.0-17.0 [facility] Comment on above: Order Comment: Speci men Type: BLOOD SPECIMENOrdering Facility: [facility] Address: [address] [place] [address] Performed By: #### 5 7021-8 ####[facility] LABCLIA [id number] [place] [address] Immature granulocytes (Bld) [#/Vol] 10*3/uL Normal <0.10 [facility] Comment on above: Order Comment: Speci men Type: BLOOD SPECIMENOrdering Facility: [facility] Address: [address] [place] [address] Performed By: #### 5 7021-8 ####[facility] LABCLIA [id number] [place] [address] Immature granulocytes/100 WBC (Bld) 0.4 % Normal [facility] Comment on above: Order Comment: Speci men Type: BLOOD SPECIMENOrdering Facility: [facility] Address: [address] [place] [address] Performed By: #### 5 7021-8 ####[facility] LABCLIA [id number] [place] [address] Lymphocytes (Bld) [#/Vol] 0.99 10*3/uL Low 1.00-4.00 [facility] Comment on above: Order Comment: Speci men Type: BLOOD SPECIMENOrdering Facility: [facility] Address: [address] [place] [address] Performed By: #### 5 7021-8 ####[facility] LABCLIA [id number] [place] [address] Lymphocytes/100 WBC (Bld) 19.3 % Normal [facility] Comment on above: Order Comment: Speci men Type: BLOOD SPECIMENOrdering Facility: [facility] Address: [address] [place] [address] Performed By: #### 5 7021-8 ####[facility] [facility] [id number] [place] [address] MCH (RBC) [Entitic mass] 28.7 pg Normal 26.0-34.0 [facility] Comment on above: Order Comment: Speci men Type: BLOOD SPECIMENOrdering Facility: [facility] Address: [address] [place] [address] Performed By: #### 5 7021-8 ####[facility]CLIA [id number] [place] [address] MCHC (RBC) [Mass/Vol] 33.9 g/dL Normal 30.5-36.0 [facility] Comment on above: Order Comment: Speci men Type: BLOOD SPECIMENOrdering Facility: [facility] Address: [address] [place] [address] Performed By: #### 5 7021-8 ####[facility]CLIA [id number] [place] [address] MCV (RBC) [Entitic vol] 84.7 fL Normal 80.0-100.0 [facility] Comment on above: Order Comment: Speci men Type: BLOOD SPECIMENOrdering Facility: [facility] Address: [address] [place] [address] Performed By: #### 5 7021-8 ####[facility]CLIA [id number] [place] [address] Monocytes (Bld) [#/Vol] 0.63 10*3/uL Normal <0.87 [facility] Comment on above: Order Comment: Speci men Type: BLOOD SPECIMENOrdering Facility: [facility] Address: [address] [place] [address] Performed By: #### 5 7021-8 ####[facility]CLIA [id number] [place] [address] Monocytes/100 WBC (Bld) 12.3 % Normal [facility] Comment on above: Order Comment: Speci men Type: BLOOD SPECIMENOrdering Facility: [facility] Address: [address] [place] [address] Performed By: #### 5 7021-8 ####[facility] [id number] [place] [address] Neutrophils (Bld) [#/Vol] 3.22 10*3/uL Normal 1.45-7.50 [facility] Comment on above: Order Comment: Speci men Type: BLOOD SPECIMENOrdering Facility: [facility] Address: [address] [place] [address] Performed By: #### 5 7021-8 ####[facility] [id number] [place] [address] Neutrophils/100 WBC (Bld) 62.9 % Normal [facility] Comment on above: Order Comment: Speci men Type: BLOOD SPECIMENOrdering Facility: [facility] Address: [address] [place] [address] Performed By: #### 5 7021-8 ####[facility] LABIA [id number] [place] [address] Nucleated RBC (Bld) [#/Vol] 10*3/uL Normal <0.01 [facility] Comment on above: Order Comment: Speci men Type: BLOOD SPECIMENOrdering Facility: [facility] Address: [address] [place] [address] Performed By: #### 5 7021-8 ####[facility] [id number] [place] [address] Nucleated RBC/100 WBC (Bld) [Ratio] 0.0 /100 WBC Normal [facility] Comment on above: Order Comment: Speci men Type: BLOOD SPECIMENOrdering Facility: [facility] Address: [address] [place] [address] Performed By: #### 5 7021-8 ####[facility]CLIA [id number] [place] [address] Platelet mean volume (Bld) [Entitic vol] 8.1 fL Low 9.0-12.7 [facility] Comment on above: Order Comment: Speci men Type: BLOOD SPECIMENOrdering Facility: [facility] Address: [address] [place] [address] Performed By: #### 5 7021-8 ####[facility]CLIA [id number] [place] [address] Platelets (Bld) [#/Vol] 156 10*3/uL Normal 150-400 [facility] Comment on above: Order Comment: Speci men Type: BLOOD SPECIMENOrdering Facility: [facility] Address: [address] [place] [address] Performed By: #### 5 7021-8 ####[facility] [id number] [place] [address] RBC (Bld) [#/Vol] 4.77 10*6/uL Normal 4.20-6.00 [facility] Comment on above: Order Comment: Speci men Type: BLOOD SPECIMENOrdering Facility: [facility] Address: [address] [place] [address] Performed By: #### 5 7021-8 ####[facility]CL[facility] [id number] [place] [address] WBC (Bld) [#/Vol] 5.12 10*3/uL Normal 3.70-11.00 [facility] Comment on above: Order Comment: Speci men Type: BLOOD SPECIMENOrdering Facility: [facility] Address: [address] [place] [address] Performed By: #### 5 7021-8 ####[facility] [id number] [place] [address] CNOVSPon 11-14-2023 CNOVSP Normal [facility] metabolic 2000 panelon 11-14-2023 Albumin [Mass/Vol] 4.7 g/dL Normal 3.9-4.9 [facility] Comment on above: Order Comment: Speci men Type: BLOOD SPECIMENOrdering Facility: [facility] Address: [address] [place] [address] Performed By: #### 2 4323-8 ####[facility]CL[facility] [id number] [place] [address] ALP [Catalytic activity/Vol] 93 U/L Normal 38-113 [facility] Comment on above: Order Comment: Speci men Type: BLOOD SPECIMENOrdering Facility: [facility] Address: [address] [place] [address] Performed By: #### 2 4323-8 ####[facility] [id number] [place] [address] ALT [Catalytic activity/Vol] 20 U/L Normal 10-54 [facility] Comment on above: Order Comment: Speci men Type: BLOOD SPECIMENOrdering Facility: [facility] Address: [address] [place] [address] Performed By: #### 2 4323-8 ####[facility]CLIA [id number] [place] [address] Anion gap [Moles/Vol] 9 mmol/L Normal 9-18 [facility] Comment on above: Order Comment: Speci men Type: BLOOD SPECIMENOrdering Facility: [facility] Address: [address] [place] [address] Performed By: #### 2 4323-8 ####[facility]CL[facility] [id number] [place] [address] AST [Catalytic activity/Vol] 15 U/L Normal 14-40 [facility] Comment on above: Order Comment: Speci men Type: BLOOD SPECIMENOrdering Facility: [facility] Address: [address] [place] [address] Performed By: #### 2 4323-8 ####[facility]CL[facility] [id number] [place] [address] Bilirubin [Mass/Vol] 0.3 mg/dL Normal 0.2-1.3 [facility] Comment on above: Order Comment: Speci men Type: BLOOD SPECIMENOrdering Facility: [facility] Address: [address] [place] [address] Performed By: #### 2 4323-8 ####[facility]CL[facility] [id number] [place] [address] Calcium [Mass/Vol] 10.6 mg/dL High 8.5-10.2 [facility] Comment on above: Order Comment: Speci men Type: BLOOD SPECIMENOrdering Facility: [facility] Address: [address] [place] [address] Performed By: #### 2 4323-8 ####[facility]CL[facility] [id number] [place] [address] Chloride [Moles/Vol] 102 mmol/L Normal 97-105 [facility] Comment on above: Order Comment: Speci men Type: BLOOD SPECIMENOrdering Facility: [facility] Address: [address] [place] [address] Performed By: #### 2 4323-8 ####[facility]CL[facility] [id number] [place] [address] CO2 [Moles/Vol] 27 mmol/L Normal 22-30 [facility] Comment on above: Order Comment: Speci men Type: BLOOD SPECIMENOrdering Facility: [facility] Address: [address] [place] [address] Performed By: #### 2 4323-8 ####[facility]CLIA [id number] [place] [address] Creatinine [Mass/Vol] 1.44 mg/dL High 0.73-1.22 [facility] Comment on above: Order Comment: Speci men Type: BLOOD SPECIMENOrdering Facility: [facility] Address: [address] [place] [address] Performed By: #### 2 4323-8 ####[facility]CLIA [id number] [place] [address] Creatinine and Glomerular filtration rate.predicted panel (S/P/Bld) 57 mL/min/1.73m??? Low >=60 [facility] Comment on above: Order Comment: Speci men Type: BLOOD SPECIMENOrdering Facility: [facility] Address: [address] [place] [address] Result Comment: Torri mated Glomerular Filtration Rate (eGFR) is calculated using the 2020 CKD-EPI creatinine equation. This equation utilizes serum creatinine, sex, and age as parameters. The creatinine assay has traceable calibration to isotope dilution-mass spectrometry. Refer to KDIGO guidelines for clinical interpretation. In patients with unstable renal function, e.g. those with acute kidney injury, the eGFR may not accurately reflect actual GFR. Performed By: #### 2 4323-8 ####[facility]CLIA [id number] [place] [address] Glucose [Mass/Vol] 103 mg/dL High 74-99 [facility] Comment on above: Order Comment: Speci men Type: BLOOD SPECIMENOrdering Facility: [facility] Address: [address] [place] [address] Result Comment: The [place] [employer] (ADA) provides guidance for cutoff values for fasting glucose and random glucose. The ADA defines fasting as no caloric intake for at least 8 hours. Fasting plasma glucose results between 100 to 125 mg/dL indicate increased risk for diabetes (prediabetes).Fasting plasma glucose results greater than or equal to 126 mg/dL meet the criteria for diagnosis of diabetes. In the absence of unequivocal hyperglycemia, results should be confirmed by repeat testing. In a patient with classic symptoms of hyperglycemia or hyperglycemic crisis, random plasma glucose results greater than or equal to 200 mg/dL meet the criteria for diagnosis of diabetes.Reference: Standards of Medical Care in Diabetes 2016, [place] [employer]. Diabetes Care. 2016.39(Suppl 1). Performed By: #### 2 4323-8 ####[facility]CLIA [id number] [place] [address] Potassium [Moles/Vol] 4.3 mmol/L Normal 3.7-5.1 [facility] Comment on above: Order Comment: Speci men Type: BLOOD SPECIMENOrdering Facility: [facility] Address: [address] [place] [address] Performed By: #### 2 4323-8 ####[facility]CLIA [id number] [place] [address] Protein [Mass/Vol] 7.2 g/dL Normal 6.3-8.0 [facility] Comment on above: Order Comment: Speci men Type: BLOOD SPECIMENOrdering Facility: [facility] Address: [address] [place] [address] Performed By: #### 2 4323-8 ####[facility]CLIA [id number] [place] [address] Sodium [Moles/Vol] 138 mmol/L Normal 136-144 [facility] Comment on above: Order Comment: Speci men Type: BLOOD SPECIMENOrdering Facility: [facility] Address: [address] [place] [address] Performed By: #### 2 4323-8 ####[facility]CLIA [id number] [place] [address] Urea nitrogen [Mass/Vol] 20 mg/dL Normal 9-24 [facility] Comment on above: Order Comment: Speci men Type: BLOOD SPECIMENOrdering Facility: [facility] Address: [address] [place] [address] Performed By: #### 2 4323-8 ####[facility]CLIA [id number] [place] [address] TSH SerPl-aCncon 11-14-2023 TSH Qn 4.340 m[IU]/L High 0.270-4.200 [facility] Comment on above: Order Comment: Speci men Type: BLOOD SPECIMENOrdering Facility: [facility] Address: [address] [place] [address] Performed By: #### 3 016-3 ####[facility] LABCLIA [id number] [place] [address] [place] CBC W Auto Differential pane l (Bld)on 10-20-2023 Basophils (Bld) [#/Vol] 0.04 10*3/uL Normal <0.11 [facility] Comment on above: Order Comment: Speci men Type: BLOOD SPECIMENOrdering Facility: [facility] Address: [address] [place] [address] Performed By: #### 5 7021-8 ####[facility]CLIA [id number] [place] [address] Basophils/100 WBC (Bld) 0.5 % Normal [facility] Comment on above: Order Comment: Speci men Type: BLOOD SPECIMENOrdering Facility: [facility] Address: [address] [place] [address] Performed By: #### 5 7021-8 ####[facility]CLIA [id number] [place] [address] Differential cell count method Nom (Bld) Auto Normal [facility] Comment on above: Order Comment: Speci men Type: BLOOD SPECIMENOrdering Facility: [facility] Address: [address] [place] [address] Performed By: #### 5 7021-8 ####[facility]CLIA [id number] [place] [address] Eosinophils (Bld) [#/Vol] 0.25 10*3/uL Normal <0.46 [facility] Comment on above: Order Comment: Speci men Type: BLOOD SPECIMENOrdering Facility: [facility] Address: [address] [place] [address] Performed By: #### 5 7021-8 ####[facility]CLIA [id number] [place] [address] Eosinophils/100 WBC (Bld) 2.9 % Normal [facility] Comment on above: Order Comment: Speci men Type: BLOOD SPECIMENOrdering Facility: [facility] Address: [address] [place] [address] Performed By: #### 5 7021-8 ####[facility]CLIA [id number] [place] [address] Erythrocyte distribution width (RBC) [Ratio] 12.1 % Normal 11.5-15.0 [facility] Comment on above: Order Comment: Speci men Type: BLOOD SPECIMENOrdering Facility: [facility] Address: [address] [place] [address] Performed By: #### 5 7021-8 ####[facility] LABCLIA [id number] [place] [address] Hematocrit (Bld) [Volume fraction] 40.1 % Normal 39.0-51.0 [facility] Comment on above: Order Comment: Speci men Type: BLOOD SPECIMENOrdering Facility: [facility] Address: [address] [place] [address] Performed By: #### 5 7021-8 ####[facility]CLIA [id number] [place] [address] Hemoglobin (Bld) [Mass/Vol] 13.6 g/dL Normal 13.0-17.0 [facility] Comment on above: Order Comment: Speci men Type: BLOOD SPECIMENOrdering Facility: [facility] Address: [address] [place] [address] Performed By: #### 5 7021-8 ####[facility] LABCLIA [id number] [place] [address] Immature granulocytes (Bld) [#/Vol] 0.03 10*3/uL Normal <0.10 [facility] Comment on above: Order Comment: Speci men Type: BLOOD SPECIMENOrdering Facility: [facility] Address: [address] [place] [address] Performed By: #### 5 7021-8 ####[facility] LABCLIA [id number] [place] [address] Immature granulocytes/100 WBC (Bld) 0.4 % Normal [facility] Comment on above: Order Comment: Speci men Type: BLOOD SPECIMENOrdering Facility: [facility] Address: [address] [place] [address] Performed By: #### 5 7021-8 ####[facility] LABCLIA [id number] [place] [address] Lymphocytes (Bld) [#/Vol] 1.09 10*3/uL Normal 1.00-4.00 [facility] Comment on above: Order Comment: Speci men Type: BLOOD SPECIMENOrdering Facility: [facility] Address: [address] [place] [address] Performed By: #### 5 7021-8 ####[facility] LABCLIA [id number] [place] [address] Lymphocytes/100 WBC (Bld) 12.8 % Normal [facility] Comment on above: Order Comment: Speci men Type: BLOOD SPECIMENOrdering Facility: [facility] Address: [address] [place] [address] Performed By: #### 5 7021-8 ####[facility]CLIA [id number] [place] [address] MCH (RBC) [Entitic mass] 28.2 pg Normal 26.0-34.0 [facility] Comment on above: Order Comment: Speci men Type: BLOOD SPECIMENOrdering Facility: [facility] Address: [address] [place] [address] Performed By: #### 5 7021-8 ####[facility]CLIA [id number] [place] [address] MCHC (RBC) [Mass/Vol] 33.9 g/dL Normal 30.5-36.0 [facility] Comment on above: Order Comment: Speci men Type: BLOOD SPECIMENOrdering Facility: [facility] Address: [address] [place] [address] Performed By: #### 5 7021-8 ####[facility] LABIA [id number] [place] [address] MCV (RBC) [Entitic vol] 83.2 fL Normal 80.0-100.0 [facility] Comment on above: Order Comment: Speci men Type: BLOOD SPECIMENOrdering Facility: [facility] Address: [address] [place] [address] Performed By: #### 5 7021-8 ####[facility] LABIA [id number] [place] [address] Monocytes (Bld) [#/Vol] 0.96 10*3/uL High <0.87 [facility] Comment on above: Order Comment: Speci men Type: BLOOD SPECIMENOrdering Facility: [facility] Address: [address] [place] [address] Performed By: #### 5 7021-8 ####[facility] LABIA [id number] [place] [address] Monocytes/100 WBC (Bld) 11.3 % Normal [facility] Comment on above: Order Comment: Speci men Type: BLOOD SPECIMENOrdering Facility: [facility] Address: [address] [place] [address] Performed By: #### 5 7021-8 ####[facility]CLIA [id number] [place] [address] Neutrophils (Bld) [#/Vol] 6.15 10*3/uL Normal 1.45-7.50 [facility] Comment on above: Order Comment: Speci men Type: BLOOD SPECIMENOrdering Facility: [facility] Address: [address] [place] [address] Performed By: #### 5 7021-8 ####[facility] LABCLIA [id number] [place] [address] Neutrophils/100 WBC (Bld) 72.1 % Normal [facility] Comment on above: Order Comment: Speci men Type: BLOOD SPECIMENOrdering Facility: [facility] Address: [address] [place] [address] Performed By: #### 5 7021-8 ####[facility] LABCLIA [id number] [place] [address] Nucleated RBC (Bld) [#/Vol] 10*3/uL Normal <0.01 [facility] Comment on above: Order Comment: Speci men Type: BLOOD SPECIMENOrdering Facility: [facility] Address: [address] [place] [address] Performed By: #### 5 7021-8 ####[facility] LABIA [id number] [place] [address] Nucleated RBC/100 WBC (Bld) [Ratio] 0.0 /100 WBC Normal [facility] Comment on above: Order Comment: Speci men Type: BLOOD SPECIMENOrdering Facility: [facility] Address: [address] [place] [address] Performed By: #### 5 7021-8 ####[facility] LABIA [id number] [place] [address] Platelet mean volume (Bld) [Entitic vol] 7.9 fL Low 9.0-12.7 [facility] Comment on above: Order Comment: Speci men Type: BLOOD SPECIMENOrdering Facility: [facility] Address: [address] [place] [address] Performed By: #### 5 7021-8 ####[facility] LABIA [id number] [place] [address] Platelets (Bld) [#/Vol] 149 10*3/uL Low 150-400 [facility] Comment on above: Order Comment: Speci men Type: BLOOD SPECIMENOrdering Facility: [facility] Address: [address] [place] [address] Performed By: #### 5 7021-8 ####[facility] LABIA [id number] [place] [address] RBC (Bld) [#/Vol] 4.82 10*6/uL Normal 4.20-6.00 [facility] Comment on above: Order Comment: Speci men Type: BLOOD SPECIMENOrdering Facility: [facility] Address: [address] [place] [address] Performed By: #### 5 7021-8 ####[facility] LABIA [id number] [place] [address] WBC (Bld) [#/Vol] 8.52 10*3/uL Normal 3.70-11.00 [facility] Comment on above: Order Comment: Speci men Type: BLOOD SPECIMENOrdering Facility: [facility] Address: [address] [place] [address] Performed By: #### 5 7021-8 ####[facility] LABIA [id number] [place] [address] CNOVSPon 10-20-2023 CNOVSP Normal [facility] Comprehensive metabolic 2000 panelon 10-20-2023 Albumin [Mass/Vol] 4.5 g/dL Normal 3.9-4.9 [facility] Comment on above: Order Comment: Speci men Type: BLOOD SPECIMENOrdering Facility: [facility] Address: [address] [place] [address] Performed By: #### 2 4323-8 ####[facility] LABCLIA [id number] [place] [address] ALP [Catalytic activity/Vol] 105 U/L Normal 38-113 [facility] Comment on above: Order Comment: Speci men Type: BLOOD SPECIMENOrdering Facility: [facility] Address: [address] [place] [address] Performed By: #### 2 4323-8 ####[facility] LABCLIA [id number] [place] [address] ALT [Catalytic activity/Vol] 13 U/L Normal 10-54 [facility] Comment on above: Order Comment: Speci men Type: BLOOD SPECIMENOrdering Facility: [facility] Address: [address] [place] [address] Performed By: #### 2 4323-8 ####[facility] LABCLIA [id number] [place] [address] Anion gap [Moles/Vol] 8 mmol/L Low 9-18 [facility] Comment on above: Order Comment: Speci men Type: BLOOD SPECIMENOrdering Facility: [facility] Address: [address] [place] [address] Performed By: #### 2 4323-8 ####[facility] LABCLIA [id number] [place] [address] AST [Catalytic activity/Vol] 13 U/L Low 14-40 [facility] Comment on above: Order Comment: Speci men Type: BLOOD SPECIMENOrdering Facility: [facility] Address: [address] [place] [address] Performed By: #### 2 4323-8 ####[facility] LABCLIA [id number] [place] [address] Bilirubin [Mass/Vol] 0.2 mg/dL Normal 0.2-1.3 [facility] Comment on above: Order Comment: Speci men Type: BLOOD SPECIMENOrdering Facility: [facility] Address: [address] [place] [address] Performed By: #### 2 4323-8 ####[facility] LABCLIA [id number] [place] [address] Calcium [Mass/Vol] 9.9 mg/dL Normal 8.5-10.2 [facility] Comment on above: Order Comment: Speci men Type: BLOOD SPECIMENOrdering Facility: [facility] Address: [address] [place] [address] Performed By: #### 2 4323-8 ####[facility] LABCLIA [id number] [place] [address] Chloride [Moles/Vol] 105 mmol/L Normal 97-105 [facility] Comment on above: Order Comment: Speci men Type: BLOOD SPECIMENOrdering Facility: [facility] Address: [address] [place] [address] Performed By: #### 2 4323-8 ####[facility] LABCLIA [id number] [place] [address] CO2 [Moles/Vol] 26 mmol/L Normal 22-30 [facility] Comment on above: Order Comment: Speci men Type: BLOOD SPECIMENOrdering Facility: [facility] Address: [address] [place] [address] Performed By: #### 2 4323-8 ####[facility] LABCLIA [id number] [place] [address] Creatinine [Mass/Vol] 1.35 mg/dL High 0.73-1.22 [facility] Comment on above: Order Comment: Speci men Type: BLOOD SPECIMENOrdering Facility: [facility] Address: [address] [place] [address] Performed By: #### 2 4323-8 ####[facility] LABCLIA [id number] [place] [address] Creatinine and Glomerular filtration rate.predicted panel (S/P/Bld) 61 mL/min/1.73m??? Normal >=60 [facility] Comment on above: Order Comment: Richard eprez Type: BLOOD SPECIMENOrdering Facility: [facility] Address: [address] [place] [address] Result Comment: Torri mated Glomerular Filtration Rate (eGFR) is calculated using the 2020 CKD-EPI creatinine equation. This equation utilizes serum creatinine, sex, and age as parameters. The creatinine assay has traceable calibration to isotope dilution-mass spectrometry. Refer to KDIGO guidelines for clinical interpretation. In patients with unstable renal function, e.g. those with acute kidney injury, the eGFR may not accurately reflect actual GFR. Performed By: #### 2 4323-8 ####[facility] LABCLIA [id number] [place] [address] Glucose [Mass/Vol] 107 mg/dL High 74-99 [facility] Comment on above: Order Comment: Richard perez Type: BLOOD SPECIMENOrdering Facility: [facility] Address: [address] [place] [address] Result Comment: The [place] Diabetes Association (ADA) provides guidance for cutoff values for fasting glucose and random glucose. The ADA defines fasting as no caloric intake for at least 8 hours. Fasting plasma glucose results between 100 to 125 mg/dL indicate increased risk for diabetes (prediabetes).Fasting plasma glucose results greater than or equal to 126 mg/dL meet the criteria for diagnosis of diabetes. In the absence of unequivocal hyperglycemia, results should be confirmed by repeat testing. In a patient with classic symptoms of hyperglycemia or hyperglycemic crisis, random plasma glucose results greater than or equal to 200 mg/dL meet the criteria for diagnosis of diabetes.Reference: Standards of Medical Care in Diabetes 2016, [place] [employer]. Diabetes Care. 2016.39(Suppl 1). Performed By: #### 2 4323-8 ####[facility] LABCLIA [id number] [place] [address] Potassium [Moles/Vol] 4.7 mmol/L Normal 3.7-5.1 [facility] Comment on above: Order Comment: Speci men Type: BLOOD SPECIMENOrdering Facility: [facility] Address: [address] [place] [address] Performed By: #### 2 4323-8 ####[facility] LABCLIA [id number] [place] [address] Protein [Mass/Vol] 7.2 g/dL Normal 6.3-8.0 [facility] Comment on above: Order Comment: Speci men Type: BLOOD SPECIMENOrdering Facility: [facility] Address: [address] [place] [address] Performed By: #### 2 4323-8 ####[facility] LABCLIA [id number] [place] [address] Sodium [Moles/Vol] 139 mmol/L Normal 136-144 [facility] Comment on above: Order Comment: Speci men Type: BLOOD SPECIMENOrdering Facility: [facility] Address: [address] [place] [address] Performed By: #### 2 4323-8 ####[facility] LABCLIA [id number] [place] [address] Urea nitrogen [Mass/Vol] 17 mg/dL Normal 9-24 [facility] Comment on above: Order Comment: Speci men Type: BLOOD SPECIMENOrdering Facility: [facility] Address: [address] [place] [address] Performed By: #### 2 4323-8 ####[facility] LABCLIA [id number] [place] [address] TSH SerPl-aCncon 10-20-2023 TSH Qn 2.570 m[IU]/L Normal 0.270-4.200 [facility] Comment on above: Order Comment: Speci men Type: BLOOD SPECIMENOrdering Facility: [facility] Address: [address] [place] [address] Performed By: #### 3 016-3 ####[facility] LABCLIA [id number] [facility] [id number] [place] CNPNon 09-29-2023 CNPN Normal [facility] CBC W Auto Differential pane l (Bld)on 09-26-2023 Basophils (Bld) [#/Vol] 0.04 10*3/uL <0.11 k/uL [facility] Basophils/100 WBC (Bld) 0.8 % [facility] Differential cell count method Nom (Bld) Auto [facility] Eosinophils (Bld) [#/Vol] 0.21 10*3/uL <0.46 k/uL [facility] Eosinophils/100 WBC (Bld) 4.1 % [facility] Erythrocyte distribution width (RBC) [Ratio] 12.4 % 11.5 - 15.0 % [facility] Hematocrit (Bld) [Volume fraction] 42.3 % 39.0 - 51.0 % [facility] Hemoglobin (Bld) [Mass/Vol] 14.7 g/dL 13.0 - 17.0 g/dL [facility] Immature granulocytes (Bld) [#/Vol] <0.10 k/uL [facility] Immature granulocytes/100 WBC (Bld) 0.2 % [facility] Lymphocytes (Bld) [#/Vol] 0.97 10*3/uL Low 1.00 - 4.00 k/uL [facility] Lymphocytes/100 WBC (Bld) 18.9 % [facility] MCH (RBC) [Entitic mass] 28.7 pg 26.0 - 34.0 pg [facility] MCHC (RBC) [Mass/Vol] 34.8 g/dL 30.5 - 36.0 g/dL [facility] MCV (RBC) [Entitic vol] 82.6 fL 80.0 - 100.0 fL [facility] Monocytes (Bld) [#/Vol] 0.53 10*3/uL <0.87 k/uL [facility] Monocytes/100 WBC (Bld) 10.3 % [facility] Neutrophils (Bld) [#/Vol] 3.37 10*3/uL 1.45 - 7.50 k/uL [facility] Neutrophils/100 WBC (Bld) 65.7 % [facility] Nucleated RBC (Bld) [#/Vol] <0.01 k/uL [facility] Nucleated RBC/100 WBC (Bld) [Ratio] 0.0 /100 WBC [facility] Platelet mean volume (Bld) [Entitic vol] 8.3 fL Low 9.0 - 12.7 fL [facility] Platelets (Bld) [#/Vol] 185 10*3/uL 150 - 400 k/uL [facility] RBC (Bld) [#/Vol] 5.12 10*6/uL 4.20 - 6.00 m/uL [facility] WBC (Bld) [#/Vol] 5.13 10*3/uL 3.70 - 11.00 k/u L [facility] Basophils (Bld) [#/Vol] 0.04 10*3/uL Normal <0.11 [facility] Comment on above: Order Comment: Speci men Type: BLOOD SPECIMENOrdering Facility: [facility] Address: [address] [place] [address] Performed By: #### 5 7021-8 ####[facility] LABCLIA [id number] [place] [address] Basophils/100 WBC (Bld) 0.8 % Normal [facility] Comment on above: Order Comment: Speci men Type: BLOOD SPECIMENOrdering Facility: [facility] Address: [address] [place] [address] Performed By: #### 5 7021-8 ####[facility] LABCLIA [id number] [place] [address] Differential cell count method Nom (Bld) Auto Normal [facility] Comment on above: Order Comment: Speci men Type: BLOOD SPECIMENOrdering Facility: [facility] Address: [address] [place] [address] Performed By: #### 5 7021-8 ####[facility] LABCLIA [id number] [place] [address] Eosinophils (Bld) [#/Vol] 0.21 10*3/uL Normal <0.46 [facility] Comment on above: Order Comment: Speci men Type: BLOOD SPECIMENOrdering Facility: [facility] Address: [address] [place] [address] Performed By: #### 5 7021-8 ####[facility] LABCLIA [id number] [place] [address] Eosinophils/100 WBC (Bld) 4.1 % Normal [facility] Comment on above: Order Comment: Speci men Type: BLOOD SPECIMENOrdering Facility: [facility] Address: [address] [place] [address] Performed By: #### 5 7021-8 ####[facility] LABCLIA [id number] [place] [address] Erythrocyte distribution width (RBC) [Ratio] 12.4 % Normal 11.5-15.0 [facility] Comment on above: Order Comment: Speci men Type: BLOOD SPECIMENOrdering Facility: [facility] Address: [address] [place] [address] Performed By: #### 5 7021-8 ####[facility] LABCLIA [id number] [place] [address] Hematocrit (Bld) [Volume fraction] 42.3 % Normal 39.0-51.0 [facility] Comment on above: Order Comment: Speci men Type: BLOOD SPECIMENOrdering Facility: [facility] Address: [address] [place] [address] Performed By: #### 5 7021-8 ####[facility] LABCLIA [id number] [place] [address] Hemoglobin (Bld) [Mass/Vol] 14.7 g/dL Normal 13.0-17.0 [facility] Comment on above: Order Comment: Speci men Type: BLOOD SPECIMENOrdering Facility: [facility] Address: [address] [place] [address] Performed By: #### 5 7021-8 ####[facility] LABCLIA [id number] [place] [address] Immature granulocytes (Bld) [#/Vol] 10*3/uL Normal <0.10 [facility] Comment on above: Order Comment: Speci men Type: BLOOD SPECIMENOrdering Facility: [facility] Address: [address] [place] [address] Performed By: #### 5 7021-8 ####[facility] LABCLIA [id number] [place] [address] Immature granulocytes/100 WBC (Bld) 0.2 % Normal [facility] Comment on above: Order Comment: Speci men Type: BLOOD SPECIMENOrdering Facility: [facility] Address: [address] [place] [address] Performed By: #### 5 7021-8 ####[facility] LABCLIA [id number] [place] [address] Lymphocytes (Bld) [#/Vol] 0.97 10*3/uL Low 1.00-4.00 [facility] Comment on above: Order Comment: Speci men Type: BLOOD SPECIMENOrdering Facility: [facility] Address: [address] [place] [address] Performed By: #### 5 7021-8 ####[facility] LABCLIA [id number] [place] [address] Lymphocytes/100 WBC (Bld) 18.9 % Normal [facility] Comment on above: Order Comment: Speci men Type: BLOOD SPECIMENOrdering Facility: [facility] Address: [address] [place] [address] Performed By: #### 5 7021-8 ####[facility] LABCLIA [id number] [place] [address] MCH (RBC) [Entitic mass] 28.7 pg Normal 26.0-34.0 [facility] Comment on above: Order Comment: Speci men Type: BLOOD SPECIMENOrdering Facility: [facility] Address: [address] [place] [address] Performed By: #### 5 7021-8 ####[facility] LABCLIA [id number] [place] [address] MCHC (RBC) [Mass/Vol] 34.8 g/dL Normal 30.5-36.0 [facility] Comment on above: Order Comment: Speci men Type: BLOOD SPECIMENOrdering Facility: [facility] Address: [address] [place] [address] Performed By: #### 5 7021-8 ####[facility] LABCLIA [id number] [place] [address] MCV (RBC) [Entitic vol] 82.6 fL Normal 80.0-100.0 [facility] Comment on above: Order Comment: Speci men Type: BLOOD SPECIMENOrdering Facility: [facility] Address: [address] [place] [address] Performed By: #### 5 7021-8 ####[facility] LABCLIA [id number] [place] [address] Monocytes (Bld) [#/Vol] 0.53 10*3/uL Normal <0.87 [facility] Comment on above: Order Comment: Speci men Type: BLOOD SPECIMENOrdering Facility: [facility] Address: [address] [place] [address] Performed By: #### 5 7021-8 ####[facility] LABCLIA [id number] [place] [address] Monocytes/100 WBC (Bld) 10.3 % Normal [facility] Comment on above: Order Comment: Speci men Type: BLOOD SPECIMENOrdering Facility: [facility] Address: [address] [place] [address] Performed By: #### 5 7021-8 ####[facility] LABCLIA [id number] [place] [address] Neutrophils (Bld) [#/Vol] 3.37 10*3/uL Normal 1.45-7.50 [facility] Comment on above: Order Comment: Speci men Type: BLOOD SPECIMENOrdering Facility: [facility] Address: [address] [place] [address] Performed By: #### 5 7021-8 ####[facility] LABCLIA [id number] [place] [address] Neutrophils/100 WBC (Bld) 65.7 % Normal [facility] Comment on above: Order Comment: Speci men Type: BLOOD SPECIMENOrdering Facility: [facility] Address: [address] [place] [address] Performed By: #### 5 7021-8 ####[facility] LABCLIA [id number] [place] [address] Nucleated RBC (Bld) [#/Vol] 10*3/uL Normal <0.01 [facility] Comment on above: Order Comment: Speci men Type: BLOOD SPECIMENOrdering Facility: [facility] Address: [address] [place] [address] Performed By: #### 5 7021-8 ####[facility] LABCLIA [id number] [place] [address] Nucleated RBC/100 WBC (Bld) [Ratio] 0.0 /100 WBC Normal [facility] Comment on above: Order Comment: Speci men Type: BLOOD SPECIMENOrdering Facility: [facility] Address: [address] [place] [address] Performed By: #### 5 7021-8 ####[facility] LABCLIA [id number] [place] [address] Platelet mean volume (Bld) [Entitic vol] 8.3 fL Low 9.0-12.7 [facility] Comment on above: Order Comment: Speci men Type: BLOOD SPECIMENOrdering Facility: [facility] Address: [address] [place] [address] Performed By: #### 5 7021-8 ####[facility] LABIA [id number] [place] [address] Platelets (Bld) [#/Vol] 185 10*3/uL Normal 150-400 [facility] Comment on above: Order Comment: Speci men Type: BLOOD SPECIMENOrdering Facility: [facility] Address: [address] [place] [id number] Performed By: #### 5 7021-8 ####[facility] LABIA [id number] [place] [address] RBC (Bld) [#/Vol] 5.12 10*6/uL Normal 4.20-6.00 [facility] Comment on above: Order Comment: Speci men Type: BLOOD SPECIMENOrdering Facility: [facility] Address: [address] [place] [id number] Performed By: #### 5 7021-8 ####[facility] LABIA [id number] [place] [address] WBC (Bld) [#/Vol] 5.13 10*3/uL Normal 3.70-11.00 [facility] Comment on above: Order Comment: Speci men Type: BLOOD SPECIMENOrdering Facility: [facility] Address: [address] [place], [place] [address] Performed By: #### 5 7021-8 ####[facility] LABIA [id number] [place] [address] CNNURSEon 09-26-2023 CNNURSE Normal [facility] CNOVSPon 09-26-2023 CNOVSP Normal [facility] Comprehensive metabolic 2000 panelon 09-26-2023 Albumin [Mass/Vol] 4.7 g/dL 3.9 - 4.9 g/dL [facility] ALP [Catalytic activity/Vol] 86 U/L 38 - 113 U/L [facility] ALT [Catalytic activity/Vol] 15 U/L 10 - 54 U/L [facility] Anion gap [Moles/Vol] 10 mmol/L 9 - 18 mmol/L [facility] AST [Catalytic activity/Vol] 16 U/L 14 - 40 U/L [facility] Bilirubin [Mass/Vol] 0.4 mg/dL 0.2 - 1.3 mg/dL [facility] Calcium [Mass/Vol] 10.6 mg/dL High 8.5 - 10.2 mg/dL [facility] Chloride [Moles/Vol] 104 mmol/L 97 - 105 mmol/L [facility] CO2 [Moles/Vol] 28 mmol/L 22 - 30 mmol/L [facility] Creatinine [Mass/Vol] 1.39 mg/dL High 0.73 - 1.22 mg/dL [facility] Estimated Glomerular Filtration Rate 59 mL/min/1.73m Low >=60 mL/min/1.73m [facility] Glucose [Mass/Vol] 94 mg/dL 74 - 99 mg/dL [facility] Potassium [Moles/Vol] 4.4 mmol/L 3.7 - 5.1 mmol/L [facility] Protein [Mass/Vol] 7.2 g/dL 6.3 - 8.0 g/dL [facility] Sodium [Moles/Vol] 142 mmol/L 136 - 144 mmol/L [facility] Urea nitrogen [Mass/Vol] 16 mg/dL 9 - 24 mg/dL [facility] Albumin [Mass/Vol] 4.7 g/dL Normal 3.9-4.9 [facility] Comment on above: Order Comment: Speci men Type: BLOOD SPECIMENOrdering Facility: [facility] Address: [address] [place] [address] Performed By: #### 2 4323-8 ####[facility] LABCLIA [id number] [place] [address] ALP [Catalytic activity/Vol] 86 U/L Normal 38-113 [facility] Comment on above: Order Comment: Speci men Type: BLOOD SPECIMENOrdering Facility: [facility] Address: [address] [place] [address] Performed By: #### 2 4323-8 ####[facility] LABCLIA [id number] [place] [address] ALT [Catalytic activity/Vol] 15 U/L Normal 10-54 [facility] Comment on above: Order Comment: Speci men Type: BLOOD SPECIMENOrdering Facility: [facility] Address: [address] [place] [address] Performed By: #### 2 4323-8 ####[facility] LABCLIA [id number] [place] [address] Anion gap [Moles/Vol] 10 mmol/L Normal 9-18 [facility] Comment on above: Order Comment: Speci men Type: BLOOD SPECIMENOrdering Facility: [facility] Address: [address] [place] [address] Performed By: #### 2 4323-8 ####[facility] LABCLIA [id number] [place] [address] AST [Catalytic activity/Vol] 16 U/L Normal 14-40 [facility] Comment on above: Order Comment: Speci men Type: BLOOD SPECIMENOrdering Facility: [facility] Address: [address] [place] [address] Performed By: #### 2 4323-8 ####[facility] LABCLIA [id number] [place] [address] Bilirubin [Mass/Vol] 0.4 mg/dL Normal 0.2-1.3 [facility] Comment on above: Order Comment: Speci men Type: BLOOD SPECIMENOrdering Facility: [facility] Address: [address] [place] [address] Performed By: #### 2 4323-8 ####[facility] LABCLIA [id number] [place] [address] Calcium [Mass/Vol] 10.6 mg/dL High 8.5-10.2 [facility] Comment on above: Order Comment: Speci men Type: BLOOD SPECIMENOrdering Facility: [facility] Address: [address] [place] [address] Performed By: #### 2 4323-8 ####[facility] LABCLIA [id number] [place] [address] Chloride [Moles/Vol] 104 mmol/L Normal 97-105 [facility] Comment on above: Order Comment: Speci men Type: BLOOD SPECIMENOrdering Facility: [facility] Address: [address] [place] [address] Performed By: #### 2 4323-8 ####[facility] LABCLIA [id number] [place] [address] CO2 [Moles/Vol] 28 mmol/L Normal 22-30 [facility] Comment on above: Order Comment: Speci men Type: BLOOD SPECIMENOrdering Facility: [facility] Address: [address] [place] [address] Performed By: #### 2 4323-8 ####[facility] LABCLIA [id number] [place] [address] Creatinine [Mass/Vol] 1.39 mg/dL High 0.73-1.22 [facility] Comment on above: Order Comment: Speci men Type: BLOOD SPECIMENOrdering Facility: [facility] Address: [address] [place] [address] Performed By: #### 2 4323-8 ####[facility] LABCLIA [id number] [place] [address] Creatinine and Glomerular filtration rate.predicted panel (S/P/Bld) 59 mL/min/1.73m??? Low >=60 [facility] Comment on above: Order Comment: Speci men Type: BLOOD SPECIMENOrdering Facility: [facility] Address: [address] [place] [address] Result Comment: Torri mated Glomerular Filtration Rate (eGFR) is calculated using the 2020 CKD-EPI creatinine equation. This equation utilizes serum creatinine, sex, and age as parameters. The creatinine assay has traceable calibration to isotope dilution-mass spectrometry. Refer to KDIGO guidelines for clinical interpretation. In patients with unstable renal function, e.g. those with acute kidney injury, the eGFR may not accurately reflect actual GFR. Performed By: #### 2 4323-8 ####[facility] LABCLIA [id number] [place] [address] Glucose [Mass/Vol] 94 mg/dL Normal 74-99 [facility] Comment on above: Order Comment: Speci men Type: BLOOD SPECIMENOrdering Facility: [facility] Address: [address] [place] [place] [id number] Result Comment: The [place] [employer] (ADA) provides guidance for cutoff values for fasting glucose and random glucose. The ADA defines fasting as no caloric intake for at least 8 hours. Fasting plasma glucose results between 100 to 125 mg/dL indicate increased risk for diabetes (prediabetes).Fasting plasma glucose results greater than or equal to 126 mg/dL meet the criteria for diagnosis of diabetes. In the absence of unequivocal hyperglycemia, results should be confirmed by repeat testing. In a patient with classic symptoms of hyperglycemia or hyperglycemic crisis, random plasma glucose results greater than or equal to 200 mg/dL meet the criteria for diagnosis of diabetes.Reference: Standards of Medical Care in Diabetes 2016, [place] [employer]. Diabetes Care. 2016.39(Suppl 1). Performed By: #### 2 4323-8 ####[facility] LABCLIA [id number] [place] [address] Potassium [Moles/Vol] 4.4 mmol/L Normal 3.7-5.1 [facility] Comment on above: Order Comment: Speci men Type: BLOOD SPECIMENOrdering Facility: [facility] Address: [address] [place] [address] Performed By: #### 2 4323-8 ####[facility] LABCLIA [id number] [place] [address] Protein [Mass/Vol] 7.2 g/dL Normal 6.3-8.0 [facility] Comment on above: Order Comment: Speci men Type: BLOOD SPECIMENOrdering Facility: [facility] Address: [address] [place] [address] Performed By: #### 2 4323-8 ####[facility] LABCLIA [id number] [place] [address] Sodium [Moles/Vol] 142 mmol/L Normal 136-144 [facility] Comment on above: Order Comment: Speci men Type: BLOOD SPECIMENOrdering Facility: [facility] Address: [address] [place] [address] Performed By: #### 2 4323-8 ####[facility] LABCLIA [id number] [place] [address] Urea nitrogen [Mass/Vol] 16 mg/dL Normal 9-24 [facility] Comment on above: Order Comment: Speci men Type: BLOOD SPECIMENOrdering Facility: [facility] Address: [address] [place] [address] Performed By: #### 2 4323-8 ####[facility] LABCLIA [id number] [place] [address] TSH BLDon 09-26-2023 TSH Qn 3.160 m[IU]/L 0.270 - 4.200 mIU/L [facility] TSH SerPl-aCncon 09-26-2023 TSH Qn 3.160 m[IU]/L Normal 0.270-4.200 [facility] Comment on above: Order Comment: Speci men Type: BLOOD SPECIMENOrdering Facility: [facility] Address: [address] [place] [address] Performed By: #### 3 016-3 ####[facility] LABCLIA [id number] [place] [address] [place] NM PET/CT SKULL-THIGH INITon 09-22-2023 NM PET/CT SKULL-THIGH INIT Normal [facility] CNPNon 09-21-2023 CNPN Normal [facility] CNPNon 09-13-2023 CNPN Normal [facility] CNOVSPon 09-06-2023 CNOVSP Normal [facility] ANES POSTPROC EVALon 023 ANES POSTPROC EVAL Normal [facility] ANES PRE-OPon 08-30-2023 ANES PRE-OP Normal [facility] BRONCHOSCOPYon 08-30-2023 [facility] Bronchoscopyon 08-30-2023 Bronchoscopy Normal [facility] CYTOLOGY NON-GYNon ADEQUACY INTERPRETATION Normal [facility] Comment on above: Order Comment: Speci men Type: SPECIMEN OBTAINED BY ASPIRATIONOrdering Facility: [facility] Address: [address] [place] [address] Result Comment: A: # 1,4 Positive for non-small cell carcinoma #2,3 Non-diagnosticB: #1 Lymphoid sample #2 Non-diagnosticC: #1 Non-diagnostic #2 Lymphoid sampleD: #1,2 Non-diagnosticE: #1,2 Non-diagnosticDr. Julissa Wall / Julissa Chase letter in the above intra-procedural assessment refers to a unique site. The specific site is indicated in the final diagnosis portion of the report. Each number in this assessment references a discrete evaluation episode.Intra-procedural assessment performed at [facility], [facility]0 [facility] 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 [facility] Comment on above: Order Comment: Speci men Type: SPECIMEN OBTAINED BY ASPIRATIONOrdering Facility: [facility] Address: [address] [place] [address] Performed By: #### C YTONON ####[facility] [id number] [place] [address] [place] NURSING PROGon 08-30-2023 NURSING PROG [facility] PD-L1 22C3on 08-30-2023 PD-L1 BY IMMUNOHISTOCHEMISTY [facility] Comment on above: Order Comment: Speci men Type: TISSUE SPECIMENOrdering Facility: [facility] Address: [address] [place] [address] Result Comment: PD-L 1 Biomarker Report Head and Neck Squamous cell carcinoma (22C3)Interpretation:Insufficient tumor present.Results:PD-L1 Combined Positive score (CPS): InsufficientCase Number: [id number] Analyzed: right lung biopsyBlock Number: [id number] criteria: CPS is determined by the number of PD-L1 staining cells (tumor cells, lymphocytes, macrophages) divided by total number of tumor cells evaluated, multiplied by 100.Methods:Immunohistochemistry was performed on formalin fixed paraffin-embedded tissue using the mouse monoclonal antibody 22C3 ([employer]; [place], [place]) followed by ultrasensitive bright field detection (Optiview with amplification [[employer], [place]]).The Food and Drug Administration granted approval to pembrolizumab for the first-line treatment of patients with metastatic or unresectable recurrent head and neck squamous cell carcinoma (HNSCC). Pembrolizumab was approved for use in combination with koyuk and fluorouracil (FU) for all patients and as a single agent for patients whose tumors express PD-L1 (Combined Positive Score [CPS] equal to or greater than 1).Laboratory Developed Test (LDT) Disclaimer:Performance characteristics of immunohistochemical, immunofluorescent and chromogenic in-situ hybridization tests have been determined by the performing laboratory within [facility]???s [facility] Pathology and [facility] [place] ([facility], [facility], [facility], [facility], [facility], [facility], or [facility]) in a manner consistent with CLIA requirements. One or more of these tests have not been cleared or approved by the FDA. [facility] is regulated under CLIA as qualified to perform high-complexity testing. These tests are used for clinical purposes. They should not be regarded as investigational or for research. Positive and negative controls stain appropriately.The diagnostic interpretation was performed at [facility], [address] [place] [address] CLIA# [id number] signed out by: Yue Ha MD, PhD Performed By: #### L [id number], S ####[facility] LABCLIA [id number] [address] [place]#### TOPTO ####[facility] LIMSCLIA [id number] [place] [address] [place] SURGICAL PATHOLOGYon 023 CASE REPORT [facility] Comment on above: Order Comment: Speci men Type: TISSUE SPECIMENOrdering Facility: [facility] Address: [address] [place] [address] Result Comment: Surg ical Pathology Report Case: [id number] Provider: Nila Alexander MD Collected: 08/30/2023 09:49 AMOrdering Location: Admitting Received: 08/30/2023 04:43 PMPathologist: Ricki Canales MDSpecimen: LUNG BIOPSY RIGHT, RUL nodule core BX Performed By: #### L [id number], S ####[facility] LABCLIA [id number] [place] [address] [place]#### TOPTO ####[facility] LIMSCL[facility] [id number] [place] [address] [place] Order Comment: Speci men Type: SPECIMEN OBTAINED BY ASPIRATIONOrdering Facility: [facility] Address: [address] [place] [address] Result Comment: [facility] Cytology Report Case: [id number] Provider: Nila Alexander MD Collected: 08/30/2023 09:00 AMOrdering Location: Admitting Received: 08/30/2023 11:28 AMPathologist: Jazmin Wall MDSpecimens: A) - TRANSBRONCHIAL FINE-NEEDLE ASPIRATION, RIGHT UPPER LOBE NODULE B) - EBUS TRANSBRONCHIAL FINE-NEEDLE ASPIRATION, 4L C) - EBUS TRANSBRONCHIAL FINE-NEEDLE ASPIRATION, STATION 7 D) - EBUS TRANSBRONCHIAL FINE-NEEDLE ASPIRATION, 11RS E) - EBUS TRANSBRONCHIAL FINE-NEEDLE ASPIRATION, 10R Performed By: #### C YTONON ####[facility] LABCLIA [id number] [place] [address] [place] CLINICAL HISTORY [facility] Comment on above: Order Comment: Speci men Type: TISSUE SPECIMENOrdering Facility: [facility] Address: [address] [place] [address] Performed By: #### L [id number], S ####[facility] LABCLIA [id number] [place] [address] [place]#### TOPTO ####[facility] LIM[facility]CL[facility] [id number] [place] [address] [place] DIAGNOSIS COMMENT [facility] Comment on above: Order Comment: Speci men Type: TISSUE SPECIMENOrdering Facility: [facility] Address: [address] [place] [address] Result Comment: Sect ions reveal minute detached fragments of squamous cell carcinoma with focal maturation/keratinization. Tumor cells are strongly and diffusely positive for p16 by immunohistochemistry. In situ hybridization for high risk HPV RNA was positive in the tumor cells. 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 One or more of these tests have not been cleared or approved by the FDA. [facility] is regulated under CLIA as qualified to perform high-complexity testing. These tests are used for clinical purposes. They should not be regarded as investigational or for research. Positive and negative controls stain appropriately. Performed By: #### L [id number], S ####[facility] LABCLIA [id number] [place] [address] [place]#### TOPTO ####[facility] LIMSCL[facility] [id number] [address] [place] Order Comment: Speci men Type: SPECIMEN OBTAINED BY ASPIRATIONOrdering Facility: [facility] Address: [address] [place] [address] Result Comment: Insu fficient material is present in the cell block from part A for additional testing. Please see the concurrent biopsy ([id number]) for results of p16 and HPV in situ hybridization. This case was reviewed in consultation with Dr. Canales who agrees with the diagnosis. Performed By: #### C YTONON ####[facility] LABCLIA [id number] [id number], [place] [address] [place] FINAL DIAGNOSIS [facility] Comment on above: Order Comment: Speci men Type: TISSUE SPECIMENOrdering Facility: [facility] Address: [address] [place] [address] Result Comment: Lung , right upper lobe, nodule, biopsy:-HPV-associated squamous cell carcinoma (see comment). Performed By: #### L [id number], S ####[facility] LABCLIA [id number] [address]#### [place] ####[facility] LIMSCLIA [id number] [address] STATES OF [facility] Order Comment: Speci men Type: SPECIMEN OBTAINED BY ASPIRATIONOrdering Facility: [facility] Address: [address] [place] [address] Result Comment: A - TRANSBRONCHIAL FINE-NEEDLE ASPIRATION - RIGHT UPPER LOBE NODULE Positive for malignant cells. Squamous cell carcinoma. (See comment.)B - EBUS TRANSBRONCHIAL FINE-NEEDLE ASPIRATION - 4L Negative for malignant cells. Benign lymphoid sampleC - EBUS TRANSBRONCHIAL FINE-NEEDLE ASPIRATION - STATION 7 Negative for malignant cells. Benign lymphoid sampleD - EBUS TRANSBRONCHIAL FINE-NEEDLE ASPIRATION - 11RS Negative for malignant cells. Not a lymphoid sampleE - EBUS TRANSBRONCHIAL FINE-NEEDLE ASPIRATION - 10R Negative for malignant cells. Benign limited lymphoid sampleThe following cell blocks were associated with this case:A1 Cell Block, Alcohol FixedB1 Cell Block, Alcohol FixedC1 Cell Block, Alcohol FixedD1 Cell Block, Alcohol FixedE1 Cell Block, Alcohol Fixed Performed By: #### C YTONON ####[facility] LABCLIA [id number] [address] OF [facility] FINAL PERFORMING LAB [facility] Comment on above: Order Comment: Speci men Type: TISSUE SPECIMENOrdering Facility: [facility] Address: [address] [place] [address] Result Comment: Diag nostic interpretation performed at [facility], [facility] [place] [address] CLIA# [id number] Director: Yasir Woods M.D. Performed By: #### L [id number], S ####[facility] LABCLIA [id number] [place] [address] [place]#### TOPTO ####[facility] LIM[facility] [id number] [place] [address] [place] Order Comment: Speci men Type: SPECIMEN OBTAINED BY ASPIRATIONOrdering Facility: [facility] Address: [address] [place] [address] Result Comment: Tech nical component, counseling program leader screening performed at [place] [address] CLIA# [id number] interpretation performed at [place] [address] CLIA# [id number] Director: Yasir Woods M.D. Performed By: #### C YTONON ####[facility] [id number] [address] OF [place] GROSS DESCRIPTION [facility] Comment on above: Order Comment: Speci men Type: TISSUE SPECIMENOrdering Facility: [facility] Address: [address] [place] [address] Result Comment: A. L KATHLEEN BIOPSY RIGHTReceived in formalin are multiple melara-brown, soft feathery segments of tissue aggregating to 0.3 x 0.1 x <0.1 cm. Totally submitted in one cassette. May not survive processing.[place] [address]. FFS 08/30/2023 8:53 PM Performed By: #### L [id number], S ####[facility] LABCLIA [id number] [place] [address] [place]#### [place] ####[facility] LIM[facility]CL[facility] [id number] [address] Order Comment: Speci men Type: SPECIMEN OBTAINED BY ASPIRATIONOrdering Facility: [facility] Address: [address] [place] [address] Result Comment: A. T RANSBRONCHIAL FINE-NEEDLE IKSEKEERLV26 cc clear light pink CytoLyt with material. ThinPrep and Cell Block prepared and 8 smears (4 air dried and 4 fixed).B. EBUS TRANSBRONCHIAL FINE-NEEDLE [id number] cc clear light pink CytoLyt with material. ThinPrep and Cell Block prepared and 4 smears (2 air dried and 2 fixed).C. EBUS TRANSBRONCHIAL FINE-NEEDLE WHONWPTPZS76 cc clear pink CytoLyt with material. ThinPrep and Cell Block prepared and 4 smears (2 air dried and 2 fixed).D. EBUS TRANSBRONCHIAL FINE-NEEDLE DZIZHWLWRU68 cc clear pink CytoLyt with material. ThinPrep and Cell Block prepared and 4 smears (2 air dried and 2 fixed).E. EBUS TRANSBRONCHIAL FINE-NEEDLE ALZEEYFWZX95 cc clear pink CytoLyt with material. ThinPrep and Cell Block prepared and 4 smears (2 air dried and 2 fixed). Performed By: #### C YTONON ####[facility] LABCLIA [id number] [address] TARGETED ONCOLOGY PANEL NEXT GENERATION SEQUENCING OTHERon 08-30-2023 TARGETED ONCOLOGY PANEL NEXT GENERATION SEQUENCING OTHER [facility] Comment on above: Order Comment: Speci men Type: TISSUE SPECIMENOrdering Facility: [facility] Address: [address] [place] [address] Result Comment: [facility] Targeted Oncology PanelLaboratory Accession Number: [id number] #: [id number] #: [id number] Type: FFPET% Tumor: 90CASE SUMMARY:A KRAS G12D and a PIK3CA E545K alteration were identified in thisspecimen. The extracted RNA from this specimen did not meet minimumsequencing quality metrics for reporting; as such, fusions andaberrant transcripts cannot be reported. This can be due to poorquality or low quantity of specimen derivatives. The sample DNA metquality metrics, and single nucleotide variants, indels and copynumber gains are reported. If clinically indicated, repeat testing ofan alternative specimen is recommended.*Unless otherwise stated, all assay hotspot regions have been tested(see EVALUATED GENES below) and only positive genes are reported.RESULTS:Single Nucleotide Variants/Indels:KRAS\X09\p.Xeb96Cab\X09\NM_033360.2:c.35G>A\X09\5 1.2% VAF, Depth 4267x, Ph4VFM4AM\X09\p.Mxf015Bne\X09\NM_006218.2:c.1633G>A\X09\21.7% VAF, Depth 5015x, Qh13Ibmd Number Gains: None DetectedRNA Fusions and Aberrant Transcripts: RNA QNS, please seeinterpretationVARIANT INTERPRETATIONS:KRAS p.Oss78Znb NM_033360.2:c.35G>AThe clinically significant G12D variant in KRAS was detected in thisspecimen. KRAS wagner-oncogene encodes for a small GTPase familyprotein, K-Shon, which plays bassett role cell proliferation regulation.KRAS hot spot mutations, especially in exon 2, and amplifications arecommon in colorectal, non-small cell lung and pancreatic cancers(PMID: 97580261, 09570218, 02998215).PIK3CA p.Hwd533Kgy NM_006218.2:c.1633G>AThe clinically significant E545K variant in PIK3CA was detected inthis specimen. PIK3CA encodes forphosphatidylinositol-4,5-bisphosphate 3-kinase catalytic subunit. Itpromotes cell proliferation via PI3K/AKT/mTOR signaling pathway.Activating mutations (PMID: 46263094) and amplification (PMID:39904890) leading to gain of function are observed in variety oftumors.Variants of uncertain significance detected:None DetectedRegions with coverage <100x:CTNNB1:NM_001904.3:Exon3 chr3:[id number] Range: 70-87;METHODOLOGY:Extracted nucleic acid from the specimen, both DNA and RNA, weresubjected to separate targeted amplification reactions, using [employer] primers designed by [employer] ([employer], [place], [place]). Hotspots and selected fusions in generegions listed below were sequenced using Illumina ([place], [place])2x150 paired-end cycle chemistry. A customized bioinformaticsanalytical platform was used for read alignment (Genome WlxdgDSLp26/hg19), variant identification and annotation. Single nucleotidevariants (SNVs), insertion, deletion (indels) and copy number gainvariants are detected by DNA sequencing. Select fusions and aberranttranscripts (EGFR vIII and MET exon 14 skipping transcripts) aredetected by RNA sequencing. Variants are classified according toestablished guidelines (1). Reported results include variants ofstrong or potential clinical significance and variants of unclearclinical significance. Benign population polymorphisms are notincluded in the report.Based on validation, the DNA testing delivered an average of >500xcoverage and >99% of targeted regions showed over 100x coverage. Aminimum coverage depth of 100 reads is required across the entireregion of interest; a list of low coverage areas is included in thereport as applicable. The test demonstrated 100% sensitivity and 100%specificity in identifying SNVs, indels and copy number gains. Thelower limit of detection of this assay is approximately 5% variantallele fraction (VAF) for SNV/indels and 6 copies or greater for copynumber gains. Variants below these thresholds may be reported at thediscretion of the molecular pathology professional staff if thetechnical quality of the sequencing is sufficient at that location andthe call is unequivocal.Based on validation, the RNA fusion testing averaged >150,000 totalreads. The test demonstrated 93% sensitivity and 100% specificity ingene fusion identification compared to NGS sequencing, and 69%sensitivity and 100% specificity compared to FISH of fusion drivers(unknown fusion partner). Overall sensitivity is 78% and accuracy is99%. The lower limit of detection is approximately 1% of totalsequencing reads.LIMITATIONS:Sequence changes outside the analyzed alterations hotspots, includingintronic and noncoding regions, will not be identified by this test.Insertions and deletions larger than 20 and 40 bp, respectively, maynot be identified by this test. Negative results from specimens forwhich the percentage of tumor cells is 10% or less should beinterpreted with caution. Although variant allele fraction is providedas a percentage, this is not a quantitative test. RNA fusionsinvolving alternative partners or breakpoints outside of the targetedregions cannot be detected by this test. This test does notdistinguish between somatic and inherited variants.Tumor heterogeneity, tumor burden, specimen degradation or otherlimitations of the technology may affect the sensitivity and limit ofdetection, either broadly across the regions of interest or forspecific regions and may lead to false negative results.For tumor tissue, fixation in neutral buffered formalin or alcohol ispreferred. Decalcification agents and fixation agents containing heavymetals (e.g., B5) or harsh acid or base components (e.g., Bouin'ssolution) can inhibit PCR reactions. Peripheral blood and bone marrowaspirate specimens should be collected in EDTA.Hotspots, copy number variants and selected fusions evaluated by thisassay can aid in the diagnostic and therapeutic assessment of avariety of tumor types, including non-small cell lung cancer,melanoma, colorectal cancer, prostate cancer, breast cancer,glioblastoma, thyroid cancer and others (2-12). This panel can alsoprovide focused tumor profiling for patients with locallyadvanced/metastatic disease, who are candidates for anti-cancertherapy, to identify uncommon but targetable alterations (13, 14).Clinical and histopathological correlation required.EVALUATED GENES:Gene Transcript Exon(s)ALKT1 NM_005163 3ALK NM_004304 21-25AR NM_000044 6, 8BRAF NM_004333 11, 15CDK4 NM_000075 3KGXTP6 NM_001904 3, 7-8DDR2 NM_006182 5EGFR NM_005228 3, 7, 12, 15, 18-21QXKB5 NM_004448 8, 17-01IBDA4 NM_001982 2-3, 6, 8-9ERBB4 NM_005235 18ESR1 NM_000125 8FGFR1 NM_023110 12-14, 16-74NXYU3 NM_000141 7-9, 12, 93RSCW8 NM_000142 7, 9, 14, 17ZUL76 NM_002067 4, 5GNAQ NM_002072 4, 5GNAS NM_080425 8H3-3A NM_002107 2H3-3B NM_005324 2HRAS NM_005343 2,3IDH1 NM_005896 4IDH2 NM_002168 4JAK1 NM_002227 14-16JAK2 NM_004972 14JAK3 NM_000215 11-12, 15KIT NM_000222 8-11, 13, 17KRAS NM_033360 2-9MCM3B1 NM_002755 2-3, 5KZE8D9 NM_030662 2MET NM_000245 14, 16, 19MTOR NM_004958 30, 39-40, 43, 47, 53NRAS NM_002524 2-4PDGFRA NM_006206 12, 14, 80DAQ9UJ NM_006218 2, 5-6, 8, 10, 14, 19, 21RAF1 NM_002880 7, 12RET NM_020975 11, 13, 15-16ROS1 NM_002944 36, 38SMO NM_005631 4, 6, 8-9TERT NM_198253 XrbizwwbFT36 NM_000546 5, 7, 8*Only hotspots within designated exons are covered, full exons are notsequenced.Genes reported for copy number gains: ALK, AR BRAF, CCND1, CDK4, CDK6,EGFR, ERBB2, FGFR1, FGFR2, FGFR3, FGFR4, KIT, KRAS, MET, MYC, MYCN,PDGFRA, NAR2BQDnvvswe detected in RNA:Gene Detected FusionsABL1 EML1::OPN4AYD6 MAGI3::CJD1HUC A2M::ALK, ACTG2::ALK, ALK::PTPN3, ATIC::ALK, R5vwz88::ALK, CARS::ALK, CLIP4::ALK, CLTC::ALK, DCTN1::ALK, EML4::ALK, LUD1TBD7::ALK, HIP1::ALK, KIF5B::ALK, KLC1::ALK, MEMO1::ALK, NCOA1::ALK, UOMCC7X::ALK, RANBBP2::ALK, IEY66N3_OPV71L::ALK, SMEK2::ALK, STRN::ALK, TFG::ALK, TPM1::ALK, TPM3::ALK, TPM4::ALK, TPR::ALK, TRAF1::ALK, VCL::ALKAXL AD::MBIPBRAF AGTRAP:BRAF, AKAP9::BRAF, CDC27::BRAF, GEN525P::BRAF, FCHSD1::BRAF, AEXL4047::BRAF, PAPSS1::BRAF, BSP08Z3::BRAF, SND1::BRAF, SFP5RO7::BRAF, TRIM24::BRAFEGFR EGFR vIII transcriptERBB2 WIPF2::SJBJ9ARL TCB47J6:ERG, TMPRSS2:ERGFGFR1 BAG4::FGFR1, ERLIN2::FGFR1, FGFR1::NAUM0APNG4 FGFR2::AFF3, FGFR2::BICC1, FGFR2::CASP7, FGFR2::CIT, FGFR2::DFYO8652_EMWT4, FGFR2::MGEA5, FGFR2::OFD1, FGFR2::TACC1, ZSH43Z6::MOVX9HMHF6 FGFR3::AES, FGFR3::ITDXA0G5, FGFR3::ELAVL3, FGFR3::VKSC8JUY MET Exon 14 Skipping, REAZF1Y7::MET, Q9lib43::MET, CAPZA2::MET, OXR1::MET, TFG::MET, TPR::MET, PTPRZ1::METNTRK1 BCAN::NTRK1, CD74::NTRK1, JORDI::NTRK1, GGU8TZ3::NTRK1, LMNA::NTRK1, MPRIP::NTRK1, NFASC::NTRK1, NTRK1::ACOE1A0, DTP900::NTRK1, SQSTM1::NTRK1, SSBP2::NTRK1, TFG::NTRK1, TPM3::NTRK1, TPR::WBPL4SIRP6 AFAP1::NTRK2, AGBL4::NTRK2, NACC2::NTRK2, QKI::NTRK2, SQSTM1::NTRK2, TRIM24::NTRK2, VCL::QXRJ9RFXU9 BTBD1::NTRK3, COX5A::NTRK3, ETV6::XRGB4ELDDVG SCAF11::PDGFRAPPARG PAX8::PPARGRAF1 R9NEXA6::RAF1, ESRP1::TWS0IGKK G70oog10::RELARET ACBD5::RET, AFAP1::RET, AKAP13::RET, CCDC6::RET, CUX1::RET, ERC1::RET, FKBP15::RET, GOLGA5::RET, HOOK3::RET, MVXV2141::RET, KIF5B::RET, KTN1::RET, NCOA4::RET, PCM1::RET, CMDYV0W::RET, RUFY2::RET, RMFRA6L::RET, DEX3RL3::RET, TRIM24::RET, TRIM27::RET, TRIM33::RETROS1 CCDC6:ROS1, CD74::ROS1, CEP85L::ROS1, CLIP1::ROS1, CLTC::ROS1, ERC1::ROS1, EZR::ROS1, COPC::ROS1, HLA_A::ROS1, KDELR2::ROS1, UODH6786::ROS1, LRIG3::ROS1, MSN::ROS1, MYO5A::ROS1, PPFIBP1::ROS1, PWWP2A::ROS1, SDC4::ROS1, OZH06L0::ROS1, TFG::ROS1, TPM3::ROS1, ZCCHC8::PKC8MLWPXQ0 TMPRSS2::ERG, TMPRSS2::ETV1, TMPRSS2::ETV4, TMPRSS2::GSL6WENAFSZJJL:1) Dariela MM, et al. Standards and Guidelines for the Interpretation andReporting of Sequence Variants in Cancer: A Joint ConsensusRecommendation of the Association for Molecular Pathology, [facility]'s Hospitalety of Clinical Oncology, and College of [place] Pathologists. JMol Diagn. 2017 Oct;19(1):4-23. doi: 10.1016/j.jmoldx.2016.10.002.PMID: 50777896; PMCID: QCL2240745.2) Kelli C, Davey SA, Chi AM. Recurrent gene fusions inprostate cancer. Charo Rev Cancer. 2008 Apr;8(7):497-511. doi:10.1038/ulw4336. Epub 2007Mar 27. PMID: 73928976; PMCID: EBF3492462.3) Jame GALICIA, René JEFFRIES. The genomic landscape of prostate cancer.Front Endocrinol ([facility]). 2011February 21;3:69. doi:10.3389/fendo.2012.51957. PMID: 57548855; IUG9148746.4) Juanito C, et al. Breast Cancer Genomics: Primary and Most CommonMetastases. Cancers ([facility]). 2021Mar 29;14(13):3046. doi:10.3390/juichco34753311. PMID: 08025262; PMCID: ELZ6850743.5) Los R, Z[place] ANJ, CJ. Fixed Route Bus Operator Oncogenes but Not as We KnowThem: Targetable Fusion Genes in Breast Cancer. Cancer Discov. 2018Dec;8(3):272-275. doi: 10.1158/9326-7686.CD-18-0091. PMID: 28301701;PMCID: ZRI0775810.6) Rylan A, Lenin J, Adolfo JW, Williams N, Chalo T, Westley CS. The GenomicLandscape of Thyroid Cancer Tumourigenesis and Implications forImmunotherapy. Cells. 2020February 06;10(5):1082. doi:10.3390/ylmde17328383. PMID: 03935010; PMCID: NYT5093072.7) Rena TOMAS, et al. Molecular Biomarkers for the Evaluation ofColorectal Cancer: Guideline From the [place] Society for ClinicalPathology, [employer] [place] [employer], Association for MolecularPathology, and the [place] Society of Clinical Oncology. J ClinOncol. 2017 February 06;35(13):0119-1990. doi: 10.1200/JCO.2016.71.9807.Epub 2016Nov 14. PMID: 77540868.8) Bhavna HERNANDEZ, et al. Updated Molecular Testing Guideline for theSelection of Lung Cancer Patients for Treatment With Targeted TyrosineKinase Inhibitors: Guideline From the College of AmericanPathologists, the International Association for the Study of LungCancer, and the Association for Molecular Pathology. Arch Pathol LabMed. 2018 Dec;142(3):321-346. doi: 10.5858/arpa.3867-3178-LO. Powr3924 Oct 30. PMID: 71606798.9) Cancer Genome [place] [facility]. Comprehensive genomiccharacterization defines human glioblastoma genes and core pathways.Nature. 2007 23;455(3701):1061-8. doi: 10.1038/yxotgy34604. Odqg8421 Jun 12. Erratum in: Nature. 2012Dec 06;494(0962):506. PMID:54961860; PMCID: TZU1828660.10) Eve SANCHEZ, Taryn Dowling. Glioblastoma Genomics: A Very ComplicatedStory. In: Cho S, photo editor. Glioblastoma [Internet].[place] ([place]): [employer]; 2016Jul 05. Chapter 1. PMID:86473496.11) Malcolm S, Ratna N, Dora H. Melanoma genomics: a walop-tc-jnq-artreview of practical clinical applications. Br J Dermatol. ;185(2):272-281. doi: 10.1111/bjd.68926. Ep2020Mar 14. PMID:71968041.12) Melani L, Sarai GARCIA. An update on molecular genetics ofgastrointestinal stromal tumours. J Clin Pathol. ;59(6):557-63. doi: 10.1136/jcp.2005.451788. PMID: 97241290; PMCID:UVV2712737.13) Adama ER, Holly M, Patrica PJB, Devang TL, Roseanna LL. Molecularprofiling for precision cancer therapies. Genome Med. 2019;12(1):8. doi: 10.1186/v76621-310-9867-4. PMID: 52395298; PMCID:OKB9850553.14) Jakub Dent et al. Somatic Genomic Testing in Patients WithMetastatic or Advanced Cancer: ASCO Provisional Clinical Opinion. JClin Oncol. 2021Jan 16;40(11):8822-9147. doi: 10.1200/JCO.21.74350.Ep2021Nov 25. Erratum in: J Clin Oncol. 2021Mar 28;40(18):2068.PMID: 17578797.DISCLAIMER:This test was developed and its performance characteristics determinedby [facility] ([facility]). It has not been cleared or approved bythe FDA. RT[facility] is regulated under CLIA as certified to perform high-complexity testing. This test is used for clinical purposes. It shouldnot be regarded as investigational or for research.Testing [place] [address]. CLIA Number: [id number] reviewed by Nava Feng, PhD, [facility] Performed By: #### L [id number], S ####[facility] LABCLIA [id number] [address] OF [place]#### [place] ####[facility] ILLUMINA LIMSCLIA [id number] [address] OF [facility] CNOVon 08-24-2023 CNOV Normal [facility] CT CHEST WO IVCONon 08-24-20 CT CHEST WO IVCON [facility] ECG COMPLETEon 08-24-2023 ECG COMPLETE Normal [facility] NURSING PROGon 08-22-2023 NURSING PROG Normal [facility] CNPNon 08-20-2023 CNPN Normal [facility] CNPNon 08-14-2023 CNPN Normal [facility] Pre-Certification Formon Pre-Certification Form [id number]#1.00T IFF Normal [facility] CBC W Auto Differential pane l (Bld)on 07-25-2023 Basophils (Bld) [#/Vol] 0.03 10*3/uL Normal <0.11 [facility] Comment on above: Order Comment: Speci men Type: BLOOD SPECIMENOrdering Facility: [facility] Address: [address] [place] [address] Performed By: #### 5 7021-8 ####[facility] LABCLIA [id number] [place] [address] Basophils/100 WBC (Bld) 0.4 % Normal [facility] Comment on above: Order Comment: Speci men Type: BLOOD SPECIMENOrdering Facility: [facility] Address: [address] [place] [address] Performed By: #### 5 7021-8 ####[facility] LABCLIA [id number] [place] [address] Differential cell count method Nom (Bld) Auto Normal [facility] Comment on above: Order Comment: Speci men Type: BLOOD SPECIMENOrdering Facility: [facility] Address: [address] [place] [address] Performed By: #### 5 7021-8 ####[facility] LABCLIA [id number] [place] [address] Eosinophils (Bld) [#/Vol] 0.30 10*3/uL Normal <0.46 [facility] Comment on above: Order Comment: Speci men Type: BLOOD SPECIMENOrdering Facility: [facility] Address: [address] [place] [address] Performed By: #### 5 7021-8 ####[facility] LABCLIA [id number] [place] [address] Eosinophils/100 WBC (Bld) 3.7 % Normal [facility] Comment on above: Order Comment: Speci men Type: BLOOD SPECIMENOrdering Facility: [facility] Address: [address] [place] [address] Performed By: #### 5 7021-8 ####[facility] LABCLIA [id number] [place] [address] Erythrocyte distribution width (RBC) [Ratio] 13.3 % Normal 11.5-15.0 [facility] Comment on above: Order Comment: Speci men Type: BLOOD SPECIMENOrdering Facility: [facility] Address: [address] [place] [address] Performed By: #### 5 7021-8 ####[facility] LABCLIA [id number] [place] [address] Hematocrit (Bld) [Volume fraction] 40.6 % Normal 39.0-51.0 [facility] Comment on above: Order Comment: Speci men Type: BLOOD SPECIMENOrdering Facility: [facility] Address: [address] [place] [address] Performed By: #### 5 7021-8 ####[facility] LABCLIA [id number] [place] [address] Hemoglobin (Bld) [Mass/Vol] 13.7 g/dL Normal 13.0-17.0 [facility] Comment on above: Order Comment: Speci men Type: BLOOD SPECIMENOrdering Facility: [facility] Address: [address] [place] [address] Performed By: #### 5 7021-8 ####[facility] LABCLIA [id number] [place] [address] Immature granulocytes (Bld) [#/Vol] 10*3/uL Normal <0.10 [facility] Comment on above: Order Comment: Speci men Type: BLOOD SPECIMENOrdering Facility: [facility] Address: [address] [place] [address] Performed By: #### 5 7021-8 ####[facility] LABCLIA [id number] [place] [address] Immature granulocytes/100 WBC (Bld) 0.2 % Normal [facility] Comment on above: Order Comment: Speci men Type: BLOOD SPECIMENOrdering Facility: [facility] Address: [address] [place] [address] Performed By: #### 5 7021-8 ####[facility] LABCLIA [id number] [place] [address] Lymphocytes (Bld) [#/Vol] 1.38 10*3/uL Normal 1.00-4.00 [facility] Comment on above: Order Comment: Speci men Type: BLOOD SPECIMENOrdering Facility: [facility] Address: [address] [place] [address] Performed By: #### 5 7021-8 ####[facility] LABCLIA [id number] [place] [address] Lymphocytes/100 WBC (Bld) 17.1 % Normal [facility] Comment on above: Order Comment: Speci men Type: BLOOD SPECIMENOrdering Facility: [facility] Address: [address] [place] [address] Performed By: #### 5 7021-8 ####[facility] LABIA [id number] [place] [address] MCH (RBC) [Entitic mass] 28.9 pg Normal 26.0-34.0 [facility] Comment on above: Order Comment: Speci men Type: BLOOD SPECIMENOrdering Facility: [facility] Address: [address] [place] [address] Performed By: #### 5 7021-8 ####[facility] LABIA [id number] [place] [address] MCHC (RBC) [Mass/Vol] 33.7 g/dL Normal 30.5-36.0 [facility] Comment on above: Order Comment: Speci men Type: BLOOD SPECIMENOrdering Facility: [facility] Address: [address] [place] [address] Performed By: #### 5 7021-8 ####[facility] LABIA [id number] [place] [address] MCV (RBC) [Entitic vol] 85.7 fL Normal 80.0-100.0 [facility] Comment on above: Order Comment: Speci men Type: BLOOD SPECIMENOrdering Facility: [facility] Address: [address] [place] [address] Performed By: #### 5 7021-8 ####[facility] LABIA [id number] [place] [address] Monocytes (Bld) [#/Vol] 0.62 10*3/uL Normal <0.87 [facility] Comment on above: Order Comment: Speci men Type: BLOOD SPECIMENOrdering Facility: [facility] Address: [address] [place], [place] [address] Performed By: #### 5 7021-8 ####[facility] LABCLIA [id number] [place] [address] Monocytes/100 WBC (Bld) 7.7 % Normal [facility] Comment on above: Order Comment: Speci men Type: BLOOD SPECIMENOrdering Facility: [facility] Address: [address] [place] [address] Performed By: #### 5 7021-8 ####[facility] LABCLIA [id number] [place] [address] Neutrophils (Bld) [#/Vol] 5.70 10*3/uL Normal 1.45-7.50 [facility] Comment on above: Order Comment: Speci men Type: BLOOD SPECIMENOrdering Facility: [facility] Address: [address] [place] [address] Performed By: #### 5 7021-8 ####[facility] LABCLIA [id number] [place] [address] Neutrophils/100 WBC (Bld) 70.9 % Normal [facility] Comment on above: Order Comment: Speci men Type: BLOOD SPECIMENOrdering Facility: [facility] Address: [address] [place] [address] Performed By: #### 5 7021-8 ####[facility] LABCLIA [id number] [place] [address] Nucleated RBC (Bld) [#/Vol] 10*3/uL Normal <0.01 [facility] Comment on above: Order Comment: Speci men Type: BLOOD SPECIMENOrdering Facility: [facility] Address: [address] [place] [address] Performed By: #### 5 7021-8 ####[facility] LABCLIA [id number] [place] [address] Nucleated RBC/100 WBC (Bld) [Ratio] 0.0 /100 WBC Normal [facility] Comment on above: Order Comment: Speci men Type: BLOOD SPECIMENOrdering Facility: [facility] Address: [address] [place] [address] Performed By: #### 5 7021-8 ####[facility] LABCLIA [id number] [place] [address] Platelet mean volume (Bld) [Entitic vol] 8.4 fL Low 9.0-12.7 [facility] Comment on above: Order Comment: Speci men Type: BLOOD SPECIMENOrdering Facility: [facility] Address: [address] [place] [address] Performed By: #### 5 7021-8 ####[facility] LABCLIA [id number] [place] [address] Platelets (Bld) [#/Vol] 167 10*3/uL Normal 150-400 [facility] Comment on above: Order Comment: Speci men Type: BLOOD SPECIMENOrdering Facility: [facility] Address: [address] [place] [address] Performed By: #### 5 7021-8 ####[facility] LABCLIA [id number] [place] [address] RBC (Bld) [#/Vol] 4.74 10*6/uL Normal 4.20-6.00 [facility] Comment on above: Order Comment: Speci men Type: BLOOD SPECIMENOrdering Facility: [facility] Address: [address] [place] [address] Performed By: #### 5 7021-8 ####[facility] LABCLIA [id number] [place] [address] WBC (Bld) [#/Vol] 8.05 10*3/uL Normal 3.70-11.00 [facility] Comment on above: Order Comment: Speci men Type: BLOOD SPECIMENOrdering Facility: [facility] Address: [address] [place] [address] Performed By: #### 5 7021-8 ####[facility] LABCLIA [id number] [place] [address] CNOVon 07-25-2023 CNOV Normal [facility] CNOVSPon 07-25-2023 CNOVSP Normal [facility] Comprehensive metabolic 2000 panelon 07-25-2023 Albumin [Mass/Vol] 4.7 g/dL Normal 3.9-4.9 [facility] Comment on above: Order Comment: Speci men Type: BLOOD SPECIMENOrdering Facility: [facility] Address: [address] [place] [address] Performed By: #### 2 4323-8 ####[facility] LABCLIA [id number] [place] [address] ALP [Catalytic activity/Vol] 82 U/L Normal 38-113 [facility] Comment on above: Order Comment: Speci men Type: BLOOD SPECIMENOrdering Facility: [facility] Address: [address] [place] [address] Performed By: #### 2 4323-8 ####[facility] LABCLIA [id number] [place] [address] ALT [Catalytic activity/Vol] 15 U/L Normal 10-54 [facility] Comment on above: Order Comment: Speci men Type: BLOOD SPECIMENOrdering Facility: [facility] Address: [address] [place] [address] Performed By: #### 2 4323-8 ####[facility] LABCLIA [id number] [place] [address] Anion gap [Moles/Vol] 11 mmol/L Normal 9-18 [facility] Comment on above: Order Comment: Speci men Type: BLOOD SPECIMENOrdering Facility: [facility] Address: [address] [place] [address] Performed By: #### 2 4323-8 ####[facility] LABCLIA [id number] [place] [address] AST [Catalytic activity/Vol] 15 U/L Normal 14-40 [facility] Comment on above: Order Comment: Speci men Type: BLOOD SPECIMENOrdering Facility: [facility] Address: [address] [place] [address] Performed By: #### 2 4323-8 ####[facility] LABCLIA [id number] [place] [address] Bilirubin [Mass/Vol] 0.3 mg/dL Normal 0.2-1.3 [facility] Comment on above: Order Comment: Speci men Type: BLOOD SPECIMENOrdering Facility: [facility] Address: [address] [place] [address] Performed By: #### 2 4323-8 ####[facility] LABCLIA [id number] [place] [address] Calcium [Mass/Vol] 10.8 mg/dL High 8.5-10.2 [facility] Comment on above: Order Comment: Speci men Type: BLOOD SPECIMENOrdering Facility: [facility] Address: [address] [place] [address] Result Comment: RECH ECKED JT Performed By: #### 2 4323-8 ####[facility] LABCLIA [id number] [place] [address] Chloride [Moles/Vol] 101 mmol/L Normal 97-105 [facility] Comment on above: Order Comment: Speci men Type: BLOOD SPECIMENOrdering Facility: [facility] Address: [address] [place] [address] Performed By: #### 2 4323-8 ####[facility] LABCLIA [id number] [place] [address] CO2 [Moles/Vol] 26 mmol/L Normal 22-30 [facility] Comment on above: Order Comment: Speci men Type: BLOOD SPECIMENOrdering Facility: [facility] Address: [address] [place] [address] Performed By: #### 2 4323-8 ####[facility] LABCLIA [id number] [place] [address] Creatinine [Mass/Vol] 1.66 mg/dL High 0.73-1.22 [facility] Comment on above: Order Comment: Richard perez Type: BLOOD SPECIMENOrdering Facility: [facility] Address: [address] [place] [address] Performed By: #### 2 4323-8 ####[facility] LABCLIA [id number] [place] [address] Creatinine and Glomerular filtration rate.predicted panel (S/P/Bld) 48 mL/min/1.73m??? Low >=60 [facility] Comment on above: Order Comment: Richard perez Type: BLOOD SPECIMENOrdering Facility: [facility] Address: [address] [place] [address] Result Comment: Torri mated Glomerular Filtration Rate (eGFR) is calculated using the 2020 CKD-EPI creatinine equation. This equation utilizes serum creatinine, sex, and age as parameters. The creatinine assay has traceable calibration to isotope dilution-mass spectrometry. Refer to KDIGO guidelines for clinical interpretation. In patients with unstable renal function, e.g. those with acute kidney injury, the eGFR may not accurately reflect actual GFR. Performed By: #### 2 4323-8 ####[facility] LABCLIA [id number] [place] [address] Glucose [Mass/Vol] 128 mg/dL High 74-99 [facility] Comment on above: Order Comment: Richard perez Type: BLOOD SPECIMENOrdering Facility: [facility] Address: [address] [place] [address] Result Comment: The [place] Diabetes Association (ADA) provides guidance for cutoff values for fasting glucose and random glucose. The ADA defines fasting as no caloric intake for at least 8 hours. Fasting plasma glucose results between 100 to 125 mg/dL indicate increased risk for diabetes (prediabetes).Fasting plasma glucose results greater than or equal to 126 mg/dL meet the criteria for diagnosis of diabetes. In the absence of unequivocal hyperglycemia, results should be confirmed by repeat testing. In a patient with classic symptoms of hyperglycemia or hyperglycemic crisis, random plasma glucose results greater than or equal to 200 mg/dL meet the criteria for diagnosis of diabetes.Reference: Standards of Medical Care in Diabetes 2016, [place] [employer]. Diabetes Care. 2016.39(Suppl 1). Performed By: #### 2 4323-8 ####[facility] LABCLIA [id number] [place] [address] Potassium [Moles/Vol] 4.1 mmol/L Normal 3.7-5.1 [facility] Comment on above: Order Comment: Speci men Type: BLOOD SPECIMENOrdering Facility: [facility] Address: [address] [place] [address] Performed By: #### 2 4323-8 ####[facility] LABIA [id number] [place] [address] Protein [Mass/Vol] 6.9 g/dL Normal 6.3-8.0 [facility] Comment on above: Order Comment: Speci men Type: BLOOD SPECIMENOrdering Facility: [facility] Address: [address] [place] [address] Performed By: #### 2 4323-8 ####[facility] LABCLIA [id number] [place] [address] Sodium [Moles/Vol] 138 mmol/L Normal 136-144 [facility] Comment on above: Order Comment: Speci men Type: BLOOD SPECIMENOrdering Facility: [facility] Address: [address] [place] [address] Performed By: #### 2 4323-8 ####[facility] LABCLIA [id number] [place] [address] Urea nitrogen [Mass/Vol] 24 mg/dL Normal 9-24 [facility] Comment on above: Order Comment: Speci men Type: BLOOD SPECIMENOrdering Facility: [facility] Address: [address] [place] [address] Performed By: #### 2 4323-8 ####[facility] LABCLIA [id number] [place] [address] Lab Reportson 07-21-2023 Lab Reports [id number]#1.00T IFF Normal [facility] CT CHEST WO IVCONon 07-18-20 CT [facility]CON [facility] 07-10-2023 Forms [id number]#1.00C D:127 Normal [facility] Ambulatory Visit Summaryon 0 07-07-2023 Ambulatory Visit Summary CAITLIN ELMORE :1965 Visit Date:07/07/2023 Ambulatory Visit Instructions Your Diagnosis Elevated PSA BPH with urinary obstruction Family history of prostate cancer in father Tests Performed Urnls Dip Stick Auto w/o Microscopy POC 17783 Your Care Team Attending Physician - Norma Craig MD Primary Care Physician - Naty [place] MD This Is Your Medications List tamsulosin (tamsulosin 0.4 mg Cap) Contact prescribing physician if questions or concerns amlodipine (amLODIPine 10 mg Tab) lisinopril (lisinopril 40 mg Tab) pravastatin (pravastatin 20 mg Tab) Procedures Performed Transrectal biopsy of prostate using ultrasound (US) guidance (09/16/2021), Colonoscopy, Tonsillectomy. Discharge Vitals Heart Rate (Peripheral) 62 Blood Pressure 132/84 Height 182 cm Height 72 in Weight 92 kg Weight 202.4 lb BMI 27.77 What to do next Scheduled Follow-Up Appointments 2022 9:00 AM EST With: Norma Craig MD Where: [facility] Normal [address] [address]- \.br\ You Need to Schedule the Following Appointments\.br\ Follow Up with Norma Craig MD, URL, URO When: \.br\ Where:\.br\ Medications\.br\ What How Much When Instructions\.br\ Unchanged tamsulosin (tamsulosin 0.4 mg Cap) 1 Capsules By Mouth Every day\.br\ Unchanged amlodipine (amLODIPine 10 mg Tab) By Mouth Every day Contact prescribing physician if questions or concerns \.br\ Unchanged lisinopril (lisinopril 40 mg Tab) 1 Tablets By Mouth Every day Contact prescribing physician if questions or concerns \.br\ Unchanged pravastatin (pravastatin 20 mg Tab) 1 Tablets By Mouth Every day Contact prescribing physician if questions or concerns \.br\ Test Results\.br\ Urnls Dip Stick Auto w/o Microscopy POC 15724 (07/07/2023)\.br\ Bilirubin Urine Dipstick - Negative\.br\ Blood Urine Dipstick - 3+ Large\.br\ Glucose Urine Dipstick - Negative\.br\ Ketones Urine Dipstick - Negative\.br\ Leukocytes Urine Dipstick - Negative\.br\ Nitrite Urine Dipstick - Negative\.br\ Protein Urine Dipstick - Negative\.br\ Specific [place] Urine Dipstick - 1.025\.br\ Urine Appearance Urine Dipstick - Clear\.br\ Urine Color Urine Dipstick - Yellow\.br\ Urobilinogen Urine Dipstick - Normal 0.2-1 EU/dl\.br\ pH Urine Dipstick - 5.5\.br\ Allergies\.br\ No Known Allergies\.br\ No Known Medication Allergies\.br\ Problems\.br\ Ongoing - Any problem that you are currently receiving treatment for.\.br\ Acquired deafness\.br\ Arthritis\.br\ Asymptomatic microscopic hematuria\.br\ BPH with urinary obstruction\.br\ Elevated PSA\.br\ Family history of prostate cancer\.br\ Family history of prostate cancer in father\.br\ Hyperlipidemia\.b r\ Hypertension\.br\ Nocturia\.br\ Tubulovillous adenoma of colon\.br\ Weak urine stream\.br\ Education Materials\.br\ Prostate Cancer Screening\.br\ \.br\ Prostate cancer screening is testing that is done to check for the presence of prostate cancer in men. The prostate gland is a walnut-sized gland that is located below the bladder and in front of the rectum in males. The function of the prostate is to add fluid to semen during ejaculation. Prostate cancer is one of the most common types of cancer in men.\.br\ Who should have prostate cancer screening?\.br\ Screening recommendations vary based on age and other risk factors, as well as between the professional organizations who make the recommendations.\ .br\ In general, screening is recommended if:\.br\ ? \.br\ You are age 50 to 70 and have an average risk for prostate cancer. You should talk with your health care provider about your need for screening and how often screening should be done. Because most prostate cancers are slow growing and will not cause , screening in this age group is generally reserved for men who have a 10- to 15-year life expectancy.\.br\ ? \.br\ You are younger than age 50, and you have these risk factors:\.br\ ? \.br\ Having a father, brother, or uncle who has been diagnosed with prostate cancer. The risk is higher if your family member's cancer occurred at an early age or if you have multiple family members with prostate cancer at an early age.\.br\ ? \.br\ Being a male who is Black or is of [place] or sub-Saharan descent.\.br\ In general, screening is not recommended if:\.br\ ? \.br\ You are younger than age 40.\.br\ ? \.br\ You are between the ages of 40 and 49 and you have no risk factors.\.br\ ? \.br\ You are 70 years of age or older. At this age, the risks that screening can cause are greater than the benefits that it may provide.\.br\ If you are at high risk for prostate cancer, your health care provider may recommend that you have screenings more often or that you start screening at a younger age.\.br\ How is screening for prostate cancer done?\.br\ The recommended prostate cancer screening test is a blood test called the prostate-specific antigen (PSA) test. PSA is a protein that is made in the prostate. As you age, your prostate naturally produces more PSA. Abnormally high PSA levels may be caused by:\.br\ ? \.br\ Prostate cancer.\.br\ ? \.br\ An enlarged prostate that is not caused by cancer (benign prostatic hyperplasia, or BPH). This condition is very common in older men.\.br\ ? \.br\ A prostate gland infection (prostatitis) or urinary tract infection.\.br\ ? \.br\ Certain medicines such as male hormones (like testosterone) or other medicines that raise testosterone levels.\.br\ A rectal exam may be done as part of prostate cancer screening to help provide information about the size of your prostate gland. When a rectal exam is performed, it should be done after the PSA level is drawn to avoid any effect on the results.\.br\ Depending on the PSA results, you may need more tests, such as:\.br\ ? \.br\ A physical exam to check the size of your prostate gland, if not done as part of screening.\.br\ ? \.br\ Blood and imaging tests.\.br\ ? \.br\ A procedure to remove tissue samples from your prostate gland for testing (biopsy). This is the only way to know for certain if you have prostate cancer.\.br\ What are the benefits of prostate cancer screening?\.br\ ? \.br\ Screening can help to identify cancer at an early stage, before symptoms start and when the cancer can be treated more easily.\.br\ ? \.br\ There is a small chance that screening may lower your risk of dying from prostate cancer. The chance is small because prostate cancer is a slow-growing cancer, and most men with prostate cancer from a different cause.\.br\ What are the risks of prostate cancer screening?\.br\ The main risk of prostate cancer screening is diagnosing and treating prostate cancer that would never have caused any symptoms or problems. This is called overdiagnosisand overtreatment. PSA screening cannot tell you if your PSA is high due to cancer or a different cause. A prostate biopsy is the only procedure to diagnose prostate cancer. Even the results of a biopsy may not tell you if your cancer needs to be treated. Slow-growing prostate cancer may not need any treatment other than monitoring, so diagnosing and treating it may cause unnecessary stress or other side effects.\.br\ Questions to ask your health care provider\.br\ ? \.br\ When should I start prostate cancer screening?\.br\ ? \.br\ What is my risk for prostate cancer?\.br\ ? \.br\ How often do I need screening?\.br\ ? \.br\ What type of screening tests do I need?\.br\ ? \.br\ How do I get my test results?\.br\ ? \.br\ What do my results mean?\.br\ ? \.br\ Do I need treatment?\.br\ Where to find more information\.br\ ? \.br\ The [place] [employer]: www.cancer.org\.b r\ ? \.br\ [place] [employer]: www.auanet.org\.b r\ Contact a health care provider if:\.br\ ? \.br\ You have difficulty urinating.\.br\ ? \.br\ You have pain when you urinate or ejaculate.\.br\ ? \.br\ You have blood in your urine or semen.\.br\ ? \.br\ You have pain in your back or in the area of your prostate.\.br\ Summary\.br\ ? \.br\ Prostate cancer is a common type of cancer in men. The prostate gland is located below the bladder and in front of the rectum. This gland adds fluid to semen during ejaculation.\.br\ ? \.br\ Prostate cancer screening may identify cancer at an early stage, when the cancer can be treated more easily and is less likely to have spread to other areas of the body.\.br\ ? \.br\ The prostate-specific [facility] Pathology Noteon 07-07-2023 Pathology Note [id number] CD:127 Normal [facility] Patient Educationon 07-07-20 23 Patient Education Oncology Prostate Cancer Screening Prostate cancer screening is testing that is done to check for the presence of prostate cancer in men. The prostate gland is a walnut-sized gland that is located below the bladder and in front of the rectum in males. The function of the prostate is to add fluid to semen during ejaculation. Prostate cancer is one of the most common types of cancer in men. Who should have prostate cancer screening? Screening recommendations vary based on age and other risk factors, as well as between the professional organizations who make the recommendations. In general, screening is recommended if: ? You are age 50 to 70 and have an average risk for prostate cancer. You should talk with your health care provider about your need for screening and how often screening should be done. Because most prostate cancers are slow growing and will not cause , screening in this age group is generally reserved for men who have a 10- to 15-year life expectancy. ? You are younger than age 50, and you have these risk factors: ? Having a father, brother, or uncle who has been diagnosed with prostate cancer. The risk is higher if your family member's cancer occurred at an early age or if you have multiple family members with prostate cancer at an early age. ? Being a male who is Black or is of [place] or sub-Saharan descent. In general, screening is not recommended if: ? You are younger than age 40. ? You are between the ages of 40 and 49 and you have no risk factors. ? You are 70 years of age or older. At this age, the risks that screening can cause are greater than the benefits that it may provide. If you are at high risk for prostate cancer, your health care provider may recommend that you have screenings more often or that you start screening at a younger age. How is screening for prostate cancer done? The recommended prostate cancer screening test is a blood test called the prostate-specific antigen (PSA) test. PSA is a protein that is made in the prostate. As you age, your prostate naturally produces more PSA. Abnormally high PSA levels may be caused by: ? Prostate cancer. ? An enlarged prostate that is not caused by cancer (benign prostatic hyperplasia, or BPH). This condition is very common in older men. ? A prostate gland infection (prostatitis) or urinary tract infection. ? Certain medicines such as male hormones (like testosterone) or other medicines that raise testosterone levels. A rectal exam may be done as part of prostate cancer screening to help provide information about the size of your prostate gland. When a rectal exam is performed, it should be done after the PSA level is drawn to avoid any effect on the results. Depending on the PSA results, you may need more tests, such as: ? A physical exam to check the size of your prostate gland, if not done as part of screening. ? Blood and imaging tests. ? A procedure to remove tissue samples from your prostate gland for testing (biopsy). This is the only way to know for certain if you have prostate cancer. What are the benefits of prostate cancer screening? ? Screening can help to identify cancer at an early stage, before symptoms start and when the cancer can be treated more easily. ? There is a small chance that screening may lower your risk of dying from prostate cancer. The chance is small because prostate cancer is a slow-growing cancer, and most men with prostate cancer from a different cause. What are the risks of prostate cancer screening? The main risk of prostate cancer screening is diagnosing and treating prostate cancer that would never have caused any symptoms or problems. This is called overdiagnosisand overtreatment. PSA screening cannot tell you if your PSA is high due to cancer or a different cause. A prostate biopsy is the only procedure to diagnose prostate cancer. Even the results of a biopsy may not tell you if your cancer needs to be treated. Slow-growing prostate cancer may not need any treatment other than monitoring, so diagnosing and treating it may cause unnecessary stress or other side effects. Questions to ask your health care provider ? When should I start prostate cancer screening? ? What is my risk for prostate cancer? ? How often do I need screening? ? What type of screening tests do I need? ? How do I get my test results? ? What do my results mean? ? Do I need treatment? Where to find more information ? The [place] [employer]: www.cancer.org ? [place] [employer]: www.auanet.org Contact a health care provider if: ? You have difficulty urinating. ? You have pain when you urinate or ejaculate. ? You have blood in your urine or semen. ? You have pain in your back or in the area of your prostate. Summary ? Prostate cancer is a common type of cancer in men. The prostate gland is located below the bladder and in front of the rectum. This gland adds flu (more content not included)... Normal [facility] Screenson 07-07-2023 Screens [id number] CD:127 Normal [facility] Screens [id number] D:127 Normal [facility] Urology Office/Clinic Noteon 07-07-2023 Urology Office/Clinic Note Chief Complaint Follow up to MRI fusion biopsy of prostate, review pathology report HPI Staff Caitlin is a 58 y.o. male here for PO MRI fusion TP biopsy. Previous Dx: asymptomatic microscopic hematuria, BPH w/ urinary obstruction, elevated PSA, family history of prostate cancer, nocturia, weak urine stream. S/P MRI fusion TP biopsy done on 06/28/23, TRUS/bx done on 09/16/21. IPSS SCORE 16. Pt states he's had improvement since starting Flomax medication, he is down to urinating 2x a night instead of 4x. PVR today 88ml. Dysuria: denies pain and burning Incomplete bladder emptying: denies Hematuria: last seen blood 2 days ago Frequency: 8-10x a day Urgency: denies Nocturia: 2x a night Stream: sometimes hesitancy, medium stream Leaking: denies Post void dripping: denies Wearing pads/ Depends: denies Urge incontinence: denies Stress incontinence: denies Incontinence without Sensory Awareness: denies Abdominal pain: denies Flank pain: denies History of Present Illness Tests reviewed: reviewed UA, op note, path I have reviewed the previous health record information and history for this patient from Dr. Craig. I have reviewed and verified the staff HPI to be accurate for this encounter. There have been no associated fever, chills, flank pain, or blood in the urine. Denies any urinary infections since last encounter. Review of Systems PHQ Score Initial Depression Screen Score: 0 ROS - Provider Constitutional: denies weight loss, denies hot flashes. Eyes: denies eye problems. Gastrointestinal: denies nausea, denies vomiting. Cardiovascular: denies chest pain or angina. Integumentary: no dryness Musculoskeletal: denies musculoskeletal symptoms. ENMT: denies otolaryngeal symptoms. Respiratory: no shortness of breath. Heme/Lymph: denies easy bleeding tendency, denies easy bruising tendency. Psychiatric: no confusion, no anxiety. Genitourinary: See HPI. Physical Exam Vitals & Measurements HR: 62(Peripheral) BP: 132/84 HT: 72 in HT: 182 cm WT: 92 kg WT: 202.4 lb BMI: 27.77 General Appearance: alert, no distress, well nourished, well developed male. Genitourinary: Flank Pain: none. Bladder: nonpalpable. Assessment/Plan 58 year old male with history of throat cancer here follow up of elevated PSA, abnormal PET scan and MRI s/p biopsy No hx of heart attack or stroke. Not taking anticoagulation Present w/ today SILVIANO 13 (12). 1. Elevated PSA (R97.20: Elevated prostate specific antigen [PSA]) PSA: 05/2020 - 2.7 & 17% 11/21/20 - 3.7 & 15% 06/21/21 - 3.6 & 13% 04/20/22 - 3.8 & 17% 03/11/23 - 3.0 & 27% TRUS/bx by Dr. Zaragoza 09/16/[address] León ordered PET scan due to throat cancer, prostate abnormality found so that's why MRI was ordered even though PSA improved MRI prostate 05/16/23 - lateral aspect left peripheral zone, mid gland measuring 12 x 5 mm. PI-RADS 4. No evidence of lymphadenopathy. 53 ml vol S/P MRI fusion TP biopsy 06/28/23 - All cores benign. No inflammation noted. UA today shows large blood, neg for infection. Expected after bx, will cont to monitor for resolution with time and healing. Reviewed path with pt. Follow up 1 yr with PSA FT or sooner if needed. Pt understands and agrees with plan. -Send tissue for confirm MDx. 2. BPH with urinary obstruction (N40.1: Benign prostatic hyperplasia with lower urinary tract symptoms) PVR today 88 ml. Taking Flomax 0.4 mg qPM. No SEs. IPSS 16 (12). Nocturia improved with alpha magi, from 4x to 2x/night. Discussed minimally invasive options for KNIGHT including Rezum or Urolift, depending on prostate size and shape. Educational pamphlets provided. Would need cysto prior to eval prostate. -Pt to call if he would like to schedule cysto. The risks and benefits for cystoscopy have been discussed. The risks include bleeding, infection, and irritation of the bladder and urinary channel, among others. The patient, after being informed of procedural details and after questions have been answered, wishes to proceed. Full informed consent has been obtained. Will order Local anesthesia. -Continue tamsulosin 3. Family history of prostate cancer in father (Z80.42: Family history of malignant neoplasm of prostate) Cont monitoring, see #1. Portions of this record may have been created with voice recognition artificial intelligence software, specifically [employer], [employer] and or [employer]. Substitutions may have occurred due to the inherent limitations of voice recognition and artificial intelligence software. I spent 25 minutes today with the patient: reviewing tests in preparation to see and discuss them with the patient, documenting clinical information in the electronic health records, and care coordination. Time was spent performing a medical exam and evaluation, counseling and educating the patient/family, and ordering tests in caring for the patient. Follow-up With When Contact Information (more content not included)... [facility] Comment on above: Result Comment: Elec tronically Signed By: Norma Craig MD\.br\Date and Time Signed: 07/07/23 16:54 EDT\.br\Electronically Co-Signed By: Pascale Koch\.br\Date and Time Co-Signed: 07/07/23 11:11 EDT Operative Reporton Operative Report [id number] D:127 [facility] Insurance Correspondenceon 0 06-28-2023 Insurance Correspondence [id number] CD:127 [facility] Lab Reportson 06-19-2023 Lab Reports [id number] :127 [facility] Ambulatory Visit Summaryon 0 06-08-2023 Ambulatory Visit Summary CAITLIN ELMORE :1965 Visit Date:06/08/2023 Ambulatory Visit Instructions Your Diagnosis BPH with urinary obstruction Elevated PSA Family history of prostate cancer Tests Performed Urnls Dip Stick Auto w/o Microscopy POC 31507 Your Care Team Attending Physician - Norma Craig MD Primary Care Physician - Naty Burton MD This Is Your Medications List tamsulosin (tamsulosin 0.4 mg Cap) Contact prescribing physician if questions or concerns amlodipine (amLODIPine 10 mg Tab) lisinopril (lisinopril 40 mg Tab) pravastatin (pravastatin 20 mg Tab) Procedures Performed Transrectal biopsy of prostate using ultrasound (US) guidance (09/16/2021), Colonoscopy, Tonsillectomy. Discharge Vitals Heart Rate (Peripheral) 54 Blood Pressure 149/99 Height 182 cm Height 72 in Weight 92 kg Weight 202.4 lb BMI 27.77 What to do next Scheduled Follow-Up Appointments Monday 10:00 AM EDT With: Rafa KELLEY, Norma Moran Where: [facility] [address] [place] [id number]- \.br\ You Need to Schedule the Following Appointments\.br\ Follow Up with Norma Craig MD, URL, URO When: \.br\ Where:\.br\ Medications\.br\ What How Much When Instructions\.br\ Unchanged tamsulosin (tamsulosin 0.4 mg Cap) 1 Capsules By Mouth Every day\.br\ Unchanged amlodipine (amLODIPine 10 mg Tab) By Mouth Every day Contact prescribing physician if questions or concerns \.br\ Unchanged lisinopril (lisinopril 40 mg Tab) 1 Tablets By Mouth Every day Contact prescribing physician if questions or concerns \.br\ Unchanged pravastatin (pravastatin 20 mg Tab) 1 Tablets By Mouth Every day Contact prescribing physician if questions or concerns \.br\ Test Results\.br\ Urnls Dip Stick Auto w/o Microscopy POC 77078 (06/08/2023)\.br\ Bilirubin Urine Dipstick - Negative\.br\ Blood Urine Dipstick - Negative\.br\ Glucose Urine Dipstick - Negative\.br\ Ketones Urine Dipstick - Negative\.br\ Leukocytes Urine Dipstick - Trace\.br\ Nitrite Urine Dipstick - Negative\.br\ Protein Urine Dipstick - Negative\.br\ Specific [place] Urine Dipstick - 1.020\.br\ Urine Appearance Urine Dipstick - Clear\.br\ Urine Color Urine Dipstick - Yellow\.br\ Urobilinogen Urine Dipstick - Normal 0.2-1 EU/dl\.br\ pH Urine Dipstick - 6.5\.br\ Allergies\.br\ No Known Allergies\.br\ No Known Medication Allergies\.br\ Problems\.br\ Ongoing - Any problem that you are currently receiving treatment for.\.br\ Acquired deafness\.br\ Arthritis\.br\ Asymptomatic microscopic hematuria\.br\ BPH with urinary obstruction\.br\ Elevated PSA\.br\ Family history of prostate cancer\.br\ Hyperlipidemia\.b r\ Hypertension\.br\ Nocturia\.br\ Tubulovillous adenoma of colon\.br\ Weak urine stream\.br\ Education Materials\.br\ Prostate Cancer Screening\.br\ \.br\ Prostate cancer screening is testing that is done to check for the presence of prostate cancer in men. The prostate gland is a walnut-sized gland that is located below the bladder and in front of the rectum in males. The function of the prostate is to add fluid to semen during ejaculation. Prostate cancer is one of the most common types of cancer in men.\.br\ Who should have prostate cancer screening?\.br\ Screening recommendations vary based on age and other risk factors, as well as between the professional organizations who make the recommendations.\ .br\ In general, screening is recommended if:\.br\ ? \.br\ You are age 50 to 70 and have an average risk for prostate cancer. You should talk with your health care provider about your need for screening and how often screening should be done. Because most prostate cancers are slow growing and will not cause , screening in this age group is generally reserved for men who have a 10- to 15-year life expectancy.\.br\ ? \.br\ You are younger than age 50, and you have these risk factors:\.br\ ? \.br\ Having a father, brother, or uncle who has been diagnosed with prostate cancer. The risk is higher if your family member's cancer occurred at an early age or if you have multiple family members with prostate cancer at an early age.\.br\ ? \.br\ Being a male who is Black or is of [place] or sub-Saharan descent.\.br\ In general, screening is not recommended if:\.br\ ? \.br\ You are younger than age 40.\.br\ ? \.br\ You are between the ages of 40 and 49 and you have no risk factors.\.br\ ? \.br\ You are 70 years of age or older. At this age, the risks that screening can cause are greater than the benefits that it may provide.\.br\ If you are at high risk for prostate cancer, your health care provider may recommend that you have screenings more often or that you start screening at a younger age.\.br\ How is screening for prostate cancer done?\.br\ The recommended prostate cancer screening test is a blood test called the prostate-specific antigen (PSA) test. PSA is a protein that is made in the prostate. As you age, your prostate naturally produces more PSA. Abnormally high PSA levels may be caused by:\.br\ ? \.br\ Prostate cancer.\.br\ ? \.br\ An enlarged prostate that is not caused by cancer (benign prostatic hyperplasia, or BPH). This condition is very common in older men.\.br\ ? \.br\ A prostate gland infection (prostatitis) or urinary tract infection.\.br\ ? \.br\ Certain medicines such as male hormones (like testosterone) or other medicines that raise testosterone levels.\.br\ A rectal exam may be done as part of prostate cancer screening to help provide information about the size of your prostate gland. When a rectal exam is performed, it should be done after the PSA level is drawn to avoid any effect on the results.\.br\ Depending on the PSA results, you may need more tests, such as:\.br\ ? \.br\ A physical exam to check the size of your prostate gland, if not done as part of screening.\.br\ ? \.br\ Blood and imaging tests.\.br\ ? \.br\ A procedure to remove tissue samples from your prostate gland for testing (biopsy). This is the only way to know for certain if you have prostate cancer.\.br\ What are the benefits of prostate cancer screening?\.br\ ? \.br\ Screening can help to identify cancer at an early stage, before symptoms start and when the cancer can be treated more easily.\.br\ ? \.br\ There is a small chance that screening may lower your risk of dying from prostate cancer. The chance is small because prostate cancer is a slow-growing cancer, and most men with prostate cancer from a different cause.\.br\ What are the risks of prostate cancer screening?\.br\ The main risk of prostate cancer screening is diagnosing and treating prostate cancer that would never have caused any symptoms or problems. This is called overdiagnosisand overtreatment. PSA screening cannot tell you if your PSA is high due to cancer or a different cause. A prostate biopsy is the only procedure to diagnose prostate cancer. Even the results of a biopsy may not tell you if your cancer needs to be treated. Slow-growing prostate cancer may not need any treatment other than monitoring, so diagnosing and treating it may cause unnecessary stress or other side effects.\.br\ Questions to ask your health care provider\.br\ ? \.br\ When should I start prostate cancer screening?\.br\ ? \.br\ What is my risk for prostate cancer?\.br\ ? \.br\ How often do I need screening?\.br\ ? \.br\ What type of screening tests do I need?\.br\ ? \.br\ How do I get my test results?\.br\ ? \.br\ What do my results mean?\.br\ ? \.br\ Do I need treatment?\.br\ Where to find more information\.br\ ? \.br\ The [place] [employer]: www.cancer.org\.b r\ ? \.br\ [place] [employer]: www.auanet.org\.b r\ Contact a health care provider if:\.br\ ? \.br\ You have difficulty urinating.\.br\ ? \.br\ You have pain when you urinate or ejaculate.\.br\ ? \.br\ You have blood in your urine or semen.\.br\ ? \.br\ You have pain in your back or in the area of your prostate.\.br\ Summary\.br\ ? \.br\ Prostate cancer is a common type of cancer in men. The prostate gland is located below the bladder and in front of the rectum. This gland adds fluid to semen during ejaculation.\.br\ ? \.br\ Prostate cancer screening may identify cancer at an early stage, when the cancer can be treated more easily and is less likely to have spread to other areas of the body.\.br\ ? \.br\ The prostate-specific antigen (PSA) test is the recommended screening test for [facility] Patient Educationon 06-08-20 Patient Education Oncology Prostate Cancer Screening Prostate cancer screening is testing that is done to check for the presence of prostate cancer in men. The prostate gland is a walnut-sized gland that is located below the bladder and in front of the rectum in males. The function of the prostate is to add fluid to semen during ejaculation. Prostate cancer is one of the most common types of cancer in men. Who should have prostate cancer screening? Screening recommendations vary based on age and other risk factors, as well as between the professional organizations who make the recommendations. In general, screening is recommended if: ? You are age 50 to 70 and have an average risk for prostate cancer. You should talk with your health care provider about your need for screening and how often screening should be done. Because most prostate cancers are slow growing and will not cause , screening in this age group is generally reserved for men who have a 10- to 15-year life expectancy. ? You are younger than age 50, and you have these risk factors: ? Having a father, brother, or uncle who has been diagnosed with prostate cancer. The risk is higher if your family member's cancer occurred at an early age or if you have multiple family members with prostate cancer at an early age. ? Being a male who is Black or is of [place] or sub-Saharan descent. In general, screening is not recommended if: ? You are younger than age 40. ? You are between the ages of 40 and 49 and you have no risk factors. ? You are 70 years of age or older. At this age, the risks that screening can cause are greater than the benefits that it may provide. If you are at high risk for prostate cancer, your health care provider may recommend that you have screenings more often or that you start screening at a younger age. How is screening for prostate cancer done? The recommended prostate cancer screening test is a blood test called the prostate-specific antigen (PSA) test. PSA is a protein that is made in the prostate. As you age, your prostate naturally produces more PSA. Abnormally high PSA levels may be caused by: ? Prostate cancer. ? An enlarged prostate that is not caused by cancer (benign prostatic hyperplasia, or BPH). This condition is very common in older men. ? A prostate gland infection (prostatitis) or urinary tract infection. ? Certain medicines such as male hormones (like testosterone) or other medicines that raise testosterone levels. A rectal exam may be done as part of prostate cancer screening to help provide information about the size of your prostate gland. When a rectal exam is performed, it should be done after the PSA level is drawn to avoid any effect on the results. Depending on the PSA results, you may need more tests, such as: ? A physical exam to check the size of your prostate gland, if not done as part of screening. ? Blood and imaging tests. ? A procedure to remove tissue samples from your prostate gland for testing (biopsy). This is the only way to know for certain if you have prostate cancer. What are the benefits of prostate cancer screening? ? Screening can help to identify cancer at an early stage, before symptoms start and when the cancer can be treated more easily. ? There is a small chance that screening may lower your risk of dying from prostate cancer. The chance is small because prostate cancer is a slow-growing cancer, and most men with prostate cancer from a different cause. What are the risks of prostate cancer screening? The main risk of prostate cancer screening is diagnosing and treating prostate cancer that would never have caused any symptoms or problems. This is called overdiagnosisand overtreatment. PSA screening cannot tell you if your PSA is high due to cancer or a different cause. A prostate biopsy is the only procedure to diagnose prostate cancer. Even the results of a biopsy may not tell you if your cancer needs to be treated. Slow-growing prostate cancer may not need any treatment other than monitoring, so diagnosing and treating it may cause unnecessary stress or other side effects. Questions to ask your health care provider ? When should I start prostate cancer screening? ? What is my risk for prostate cancer? ? How often do I need screening? ? What type of screening tests do I need? ? How do I get my test results? ? What do my results mean? ? Do I need treatment? Where to find more information ? The [place] [employer]: www.cancer.org ? [place] [employer]: www.auanet.org Contact a health care provider if: ? You have difficulty urinating. ? You have pain when you urinate or ejaculate. ? You have blood in your urine or semen. ? You have pain in your back or in the area of your prostate. Summary ? Prostate cancer is a common type of cancer in men. The prostate gland is located below the bladder and in front of the rectum. This gland adds flu (more content not included)... [facility] Screenson 06-08-2023 Screens [id number] CD:127 [facility] Urology Office/Clinic Noteon 06-08-2023 Urology Office/Clinic Note Chief Complaint fu to mri HPI Staff 58 yo male here for 1 week f/u to MRI. Previous DX: elevated PSA, PBH with obstruction, family hx of prostate ca. MRI prostate 05/16/23. Most recent PSA 03/11/23 - 3.0 and 27.0%. patient states his flomax is helping during the day but not at night, wants to know if he can start taking it before bed Dysuria: no Incomplete bladder emptying: no Hematuria: no Frequency: yes due to increased fluid intake from dry mouth Urgency: mild Nocturia: 3x Stream: good stream Leaking: no Post void dripping: no Wearing pads/ Depends: no Urge incontinence: no Stress incontinence: no Incontinence without Sensory Awareness: no Abdominal pain: no Flank pain: no Sexual complaints: no History of Present Illness Tests reviewed: Reviewed UA and MRI, external imaging I have reviewed the previous health record information and history for this patient from Dr. Craig and external providers I have reviewed and verified the staff HPI to be accurate for this encounter. There have been no associated fever, chills, flank pain, or blood in the urine. Denies any urinary infections since last encounter. Review of Systems PHQ Score Initial Depression Screen Score: 0 ROS - Provider Constitutional: denies weight loss, denies hot flashes. Eyes: denies eye problems. Gastrointestinal: denies nausea, denies vomiting. Cardiovascular: denies chest pain or angina. Integumentary: no dryness Musculoskeletal: denies musculoskeletal symptoms. ENMT: denies otolaryngeal symptoms. Respiratory: no shortness of breath. Heme/Lymph: denies easy bleeding tendency, denies easy bruising tendency. Psychiatric: no confusion, no anxiety. Genitourinary: See HPI. Physical Exam Vitals & Measurements HR: 54(Peripheral) BP: 149/99 HT: 72 in HT: 182 cm WT: 92 kg WT: 202.4 lb BMI: 27.77 General Appearance: alert, no distress, well nourished, well developed male. Genitourinary: Flank Pain: none. Bladder: nonpalpable. Assessment/Plan 58 year old male with history of throat cancer presented today for follow up of elevated PSA, abnormal PET scan and MRI. No hx of heart attack or stroke. Not taking anticoagulation Present w/ today Portions of this record may have been created with voice recognition artificial intelligence software, specifically [employer], [employer] and or [employer]. Substitutions may have occurred due to the inherent limitations of voice recognition and artificial intelligence software. 1. BPH with urinary obstruction (N40.1: Benign prostatic hyperplasia with lower urinary tract symptoms) Has taken Doxazosin in the past Doing well overall w/ his urination. Prostate volume 54 cc on US from 09/16/21. MRI prostate 05/16/23 53 ml vol IPSS 12 (23) SILVIANO 12 PVR last visit 31mL Denies known sleep apnea. No lower extremity edema Sxs improving during the day, but still getting up during the night. States he drinks more fluids due to throat cancer tx causing dry throat -Cont Tamsulosin, can try taking at bedtime, denies SE 2. Elevated PSA (R97.20: Elevated prostate specific antigen [PSA]) PSA: 03/11/23 - 3.0 & 27% 04/20/22 - 3.8, 16.6% 06/21/21 - 3.6, 13.1% 11/21/20 - 3.7 and 15% 05/2020 - 2.7 and 17% Trus/bx 09/16/21 by DLS no evidence of malignancy. CHRISTIANNE benign 03/17/23 Dr. León ordered PET scan due to throat cancer, prostate abnormality found so that's why MRI was ordered even though PSA improved MRI prostate 05/16/23 - lateral aspect left peripheral zone, mid gland measuring 12 x 5 mm. PI-RADS 4. No evidence of lymphadenopathy. UA today neg We discussed risks of MRI fusion prostate biopsy approaches including transrectal and transperineal. Risks of the procedure were discussed to include but not be limited to bleeding, pain, infection (higher, including sepsis with transrectal approach), difficulties with urination, injury to the urethra, prostate or bladder or surrounding tissues, injury from positioning on the table, swelling and bruising of the skin, and need for further procedures. Additional risks with anesthesia were discussed. Plan: -Patient elects to proceed with MRI fusion transperineal prostate biopsy under MAC. -Follow up in 1-2 weeks after bx to review path 3. Family history of prostate cancer (Z80.42: Family history of malignant neoplasm of prostate) Father and maternal uncle -Cont workup per #2 I spent 40 minutes today with the patient: reviewing tests in preparation to see and discuss them with the patient, obtaining and reviewing external separately obtained history, documenting clinical information in the electronic health records, and care coordination. Time was spent performing a medical exam and evaluation, counseling and educating the patient/family, and ordering procedures in caring for the patient. Follow-up With When Contact Information Norma Craig MD, URL, URO Additional Instructions: Schedule MRI fusi (more content not included)... [facility] Comment on above: Result Comment: Elec tronically Signed By: Norma Craig MD\.br\Date and Time Signed: 06/08/23 13:21 EDT\.br\Electronically Co-Signed By: Raisa Kruger\.br\Date and Time Co-Signed: 06/08/23 10:42 EDT\.br\Electronically Co-Signed By: Raisa Kruger\.br\Date and Time Co-Signed: 06/08/23 10:42 EDT RAD - MRI Reporton RAD - MRI Report [id number] D:127 [facility] MR prostate wo/w conon 05-17 MR prostate wo/w con [facility] [address] MRI Report Signed Patient: Caitlin Elmore MR#: [id number] : 1965 Acct:[id number] Age/Sex: 58 / M ADM Date: 05/16/23 Loc: Room: Type: [facility] Attending Dr: Lee Esposito MD Copies to: Nino Esposito MD Ordering Provider: Nino Esposito MD Date of Service: 05/16/23 MR/MR prostate wo/w con: ELEVATED PSA EXAMINATION: MR prostate wo/w con HISTORY: Elevated PSA. History of oropharyngeal cancer. COMPARISON: NONE TECHNIQUE: Multiparametric imaging of the prostate gland was performed with IV contrast. FINDINGS: Prostate Dimensions: 3.7 x 5.3 x 5.2 cm. Prostate Volume: 53 mm Peripheral Zone: Heterogenous inT2 signal suggestive of prior prostatitis. A focal area of T2 hypointensity is identified involving the lateral aspect of the left peripheral solid at the level of the mid gland measuring 12 x 5 mm with associated restricted diffusion and low ADC value. Please see series 5 image 20, series 7 50 image 20 and series 700 image 20. The left peripheral zone is asymmetrically smaller than the right. Central/Transitional Zone: BPH changes. Seminal Vesicles: Unremarkable Neurovascular bundles: Unremarkable. Lymphadenopathy: No evidence of lymphadenopathy. Bladder: No focal lesion. Bowel: The visualized bowel is without acute abnormality. Peritoneal Cavity: No free fluid. Bones: No suspicious bony lesion. MR/MR prostate wo/w con IMPRESSION: A focal area of T2 hypointensity is identified involving the lateral aspect of the left peripheral solid at the level of the mid gland measuring 12 x 5 mm with associated restricted diffusion and low ADC value. Please see series 5 image 20, series 7 50 image 20 and series 700 image 20. PI-RADS 4. Targeting of this area on biopsy is suggested. Impression dictated by: Ras Goddard Jr., D.O.05/17/2023 4:06 PM Dictation Location: [place] [address] Transcribed By: [facility] 05/17/23 1606 Dictated By: Ras Goddard Jr, DO 05/17/23 1022 Signed By: 05/17/23 1606 Normal [facility] Lab Reportson 05-01-2023 Lab Reports [id number] D:127 [facility] Patient Educationon 03-17-20 Patient Education Urology Benign Prostatic Hyperplasia Benign prostatic hyperplasia (BPH) is an enlarged prostate gland that is caused by the normal aging process. The prostate may get bigger as a man gets older. The condition is not caused by cancer. The prostate is a walnut-sized gland that is involved in the production of semen. It is located in front of the rectum and below the bladder. The bladder stores urine. The urethra carries stored urine out of the body. An enlarged prostate can press on the urethra. This can make it harder to pass urine. The buildup of urine in the bladder can cause infection. Back pressure and infection may progress to bladder damage and kidney (renal) failure. What are the causes? This condition is part of the normal aging process. However, not all men develop problems from this condition. If the prostate enlarges away from the urethra, urine flow will not be blocked. If it enlarges toward the urethra and compresses it, there will be problems passing urine. What increases the risk? This condition is more likely to develop in men older than 50 years. What are the signs or symptoms? Symptoms of this condition include: ? Getting up often during the night to urinate. ? Needing to urinate frequently during the day. ? Difficulty starting urine flow. ? Decrease in size and strength of your urine stream. ? Leaking (dribbling) after urinating. ? Inability to pass urine. This needs immediate treatment. ? Inability to completely empty your bladder. ? Pain when you pass urine. This is more common if there is also an infection. ? Urinary tract infection (UTI). How is this diagnosed? This condition is diagnosed based on your medical history, a physical exam, and your symptoms. Tests will also be done, such as: ? A post-void bladder scan. This measures any amount of urine that may remain in your bladder after you finish urinating. ? A digital rectal exam. In a rectal exam, your health care provider checks your prostate by putting a lubricated, gloved finger into your rectum to feel the back of your prostate gland. This exam detects the size of your gland and any abnormal lumps or growths. ? An exam of your urine (urinalysis). ? A prostate specific antigen (PSA) screening. This is a blood test used to screen for prostate cancer. ? An ultrasound. This test uses sound waves to electronically produce a picture of your prostate gland. Your health care provider may refer you to a specialist in kidney and prostate diseases (urologist). How is this treated? Once symptoms begin, your health care provider will monitor your condition (active surveillance or watchful waiting). Treatment for this condition will depend on the severity of your condition. Treatment may include: ? Observation and yearly exams. This may be the only treatment needed if your condition and symptoms are mild. ? Medicines to relieve your symptoms, including: ? Medicines to shrink the prostate. ? Medicines to relax the muscle of the prostate. ? Surgery in severe cases. Surgery may include: ? Prostatectomy. In this procedure, the prostate tissue is removed completely through an open incision or with a laparoscope or robotics. ? Transurethral resection of the prostate (TURP). In this procedure, a tool is inserted through the opening at the tip of the penis (urethra). It is used to cut away tissue of the inner core of the prostate. The pieces are removed through the same opening of the penis. This removes the blockage. ? Transurethral incision (TUIP). In this procedure, small cuts are made in the prostate. This lessens the prostate's pressure on the urethra. ? Transurethral microwave thermotherapy (TUMT). This procedure uses microwaves to create heat. The heat destroys and removes a small amount of prostate tissue. ? Transurethral needle ablation (TUNA). This procedure uses radio frequencies to destroy and remove a small amount of prostate tissue. ? Interstitial laser coagulation (ILC). This procedure uses a laser to destroy and remove a small amount of prostate tissue. ? Transurethral electrovaporization (TUVP). This procedure uses electrodes to destroy and remove a small amount of prostate tissue. ? Prostatic urethral lift. This procedure inserts an implant to push the lobes of the prostate away from the urethra. Follow these instructions at home: ? Take [id number] and prescription medicines only as told by your health care provider. ? Monitor your symptoms for any changes. Contact your health care provider with any changes. ? Avoid drinking large amounts of liquid before going to bed or out in public. ? Avoid or reduce how much caffeine or alcohol you drink. ? Give yourself time when you urinate. ? Keep all follow-up visits. This is important. Contact a health care provider if: ? You have unexplained back pain. ? Your symptoms do not get better with treatment. ? You develop side effects from the medicine (more content not included)... [facility] Reminderson 03-17-2023 Reminders - From: Ifrah Taylor To: EU - Recalls Lue; Sent: 03/17/2023 09:58:51 EDT Show up: 03/22/2023 09:58:00 EDT Subject: Reminder Message Reminder Message Please Remember to:_get PSA results from [facility]. If elevated, pt to schedule MRI of prostate. [facility] Screenson 03-17-2023 Screens [id number] CD:127 [facility] Screens [id number] D:127 [facility] Urology Office/Clinic Noteon 03-17-2023 Urology Office/Clinic Note Chief Complaint pt here for a 8 month f/u with FT HPI Staff Pt is a 57 yr old Male here today for a 8 month f/u for PSA f&T. Pts previous DX: asymptomatic microscopic hematuria, BPH with urinary obstruction, elevated PSA, family HX of prostate cancer, nocturia, weak urine stream. Pts currently taking doxazosin 4mg QD. S/P TRUS 09/16/21. pt states he had PSA drawn at [facility] on MondayMarch 11 but we cannot find results anywhere in the system. Dysuria: denies Incomplete bladder emptying: yes Hematuria: denies Frequency: denies Urgency: denies Nocturia: 5 or more times but pt states he does drink plenty of water Stream: sometimes weak, no stop start Leaking: denies Post void dripping: denies Wearing pads/ Depends: denies Urge incontinence: denies Stress incontinence: denies Incontinence without Sensory Awareness: denies Abdominal pain: denies Flank pain: denies Sexual complaints: _ History of Present Illness Tests reviewed: reviewed UA, PSA I have reviewed the previous health record information and history for this patient from FRANCISCO Magana and Dr. Zaragoza I have reviewed and verified the staff HPI to be accurate for this encounter. There have been no associated fever, chills, flank pain, or blood in the urine. Denies any urinary infections since last encounter. Review of Systems PHQ Score Initial Depression Screen Score: 0 ROS - Provider Constitutional: denies weight loss, denies hot flashes. Eyes: denies eye problems. Gastrointestinal: denies nausea, denies vomiting. Cardiovascular: denies chest pain or angina. Integumentary: no dryness Musculoskeletal: denies musculoskeletal symptoms. ENMT: denies otolaryngeal symptoms. Respiratory: no shortness of breath. Heme/Lymph: denies easy bleeding tendency, denies easy bruising tendency. Psychiatric: no confusion, no anxiety. Genitourinary: See HPI. Physical Exam Vitals & Measurements HR: 81(Peripheral) BP: 128/86 HT: 72 in HT: 182 cm WT: 92 kg WT: 202.4 lb BMI: 27.77 General Appearance: alert, no distress, well nourished, well developed male. Genitourinary: Flank Pain: none. Bladder: nonpalpable. Prostate: normal prostate, no hard nodule observed, nontender, moderately enlarged Assessment/Plan 1. Elevated PSA (R97.20: Elevated prostate specific antigen [PSA]) S/p trus/bx 09/16/21 - no evidence of malignancy. PSA: 04/20/22 - 3.8, 16.6% 06/21/21 - 3.6, 13.1% 11/21/20 - 3.7 and 15% 05/2020 - 2.7 and 17% PSA was done at [place] 03/11/23 but results are not available. Discussed w/ Pt proteinuria (100 mg/dL). Also had this at 06/10/22 OV. Does have HTN, no diabetes. Sees PCP once per year and advised to make sure he follows w/ PCP regularly for his HTN and renal optimization CHRISTIANNE benign. Today I reviewed the patients past history including voiding symptoms, PSA history and any prior prostate biopsy information that is available. We discussed the controversies that exist in the field of PSA based cancer testing and the absence of exact correlation of PSA data to the presence or absence of prostate cancer on biopsy. I discussed the production of PSA by the prostate gland as well as common causes of elevated serum PSA including infection, inflammation, BPH and prostate cancer. He understood that his PSA level may also be falsely elevated due to any manipulation/instrument ation around the time of a PSA draw. I discussed the absolute value of PSA as well as PSA velocity and age specific PSA and the implications with the patient. I gave the patient management options moving forward and explained the risks/benefits of each one: -Continue monitoring PSA with repeat in 6-12 months -Obtain additional biomarkers such as select MDX -Obtain prostate MRI to evaluate for suspicious lesions. He understands MRIs may miss malignancy in 12-16% of patients. Plan: -will follow-up on recent PSA from [place]. If rising, will call patient to schedule MRI prostate. -If PSA stable, follow up 6 months with repeat PSA F/T or sooner if needed. Pt understands and agrees with plan. 2. BPH with urinary obstruction (N40.1: Benign prostatic hyperplasia with lower urinary tract symptoms) Pt to stop doxazosin 4 mg for QD. Doing well overall w/ his urination. Prostate volume 54 cc on US from 09/16/21. IPSS 23, with nocturia being the most bothersome QoL 4 SILVIANO 17 PVR 31mL Discussed other medication options to help with urinary symptoms. Discussed stop drinking fluids 1-2 hours prior to bedtime. Nocturia has been occurring for years. Pt states frequency is more bothersome than urgency. Denies known sleep apnea. No lower extremity edema -Patient elects to start tamsulosin 0.4mg. Dc doxazosin. Discussed the medication side effects, and the patient will monitor closely for these, as well as for symptom improvement. If severe side effects occur, the medication should be stopped and the office notified. -Behavioral modifications, timed voiding and a (more content not included)... [facility] Comment on above: Result Comment: Elec tronically Signed By: Rafa KELLEY, Norma Moran\.br\Date and Time Signed: 03/17/23 12:24 EDT\.br\Electronically Co-Signed By: Ifrah Taylor\.br\Date and Time Co-Signed: 03/17/23 09:57 EDT Basic metabolic panel (Bld)o n 12-21-2022 Anion gap (Bld) [Moles/Vol] 13 mmol/L 0 - 15 mmol/L [facility] Calcium.ionized (Bld) [Moles/Vol] 1.28 mmol/L 1.12 - 1.32 mmol/L [facility] Chloride [Moles/Vol] 97 mmol/L Low 98 - 109 mmol/L [facility] CO2 [Moles/Vol] 28 mmol/L 24 - 29 mmol/L [facility] Creatinine [Mass/Vol] 1.30 mg/dL 0.60 - 1.30 mg/dL [facility] GFR/1.73 sq M.predicted among non-blacks MDRD (S/P/Bld) [Vol rate/Area] 64 mL/min/1.73m >=60 mL/min/1.73m [facility] Glucose [Mass/Vol] 98 mg/dL 70 - 105 mg/dL Cl [facility] Potassium [Moles/Vol] 3.9 mmol/L 3.5 - 4.9 mmol/L [facility] Sodium [Moles/Vol] 138 mmol/L 138 - 146 mmol/L [facility] Urea nitrogen [Mass/Vol] 22 mg/dL 8 - 26 mg/dL [facility] CBC W Auto Differential pane l (Bld)on 11-21-2022 Basophils (Bld) [#/Vol] 0.05 10*3/uL <0.11 k/uL [facility] Basophils/100 WBC (Bld) 0.7 % [facility] Differential cell count method Nom (Bld) Auto [facility] Eosinophils (Bld) [#/Vol] 0.73 10*3/uL High <0.46 k/uL [facility] Eosinophils/100 WBC (Bld) 10.2 % [facility] Erythrocyte distribution width (RBC) [Ratio] 12.2 % 11.5 - 15.0 % [facility] Hematocrit (Bld) [Volume fraction] 41.6 % 39.0 - 51.0 % [facility] Hemoglobin (Bld) [Mass/Vol] 13.9 g/dL 13.0 - 17.0 g/dL [facility] Immature granulocytes (Bld) [#/Vol] <0.10 k/uL [facility] Immature granulocytes/100 WBC (Bld) 0.3 % [facility] Lymphocytes (Bld) [#/Vol] 1.47 10*3/uL 1.00 - 4.00 k/uL [facility] Lymphocytes/100 WBC (Bld) 20.6 % [facility] MCH (RBC) [Entitic mass] 28.1 pg 26.0 - 34.0 pg [facility] MCHC (RBC) [Mass/Vol] 33.4 g/dL 30.5 - 36.0 g/dL [facility] MCV (RBC) [Entitic vol] 84.0 fL 80.0 - 100.0 fL [facility] Monocytes (Bld) [#/Vol] 0.57 10*3/uL <0.87 k/uL [facility] Monocytes/100 WBC (Bld) 8.0 % [facility] Neutrophils (Bld) [#/Vol] 4.29 10*3/uL 1.45 - 7.50 k/uL [facility] Neutrophils/100 WBC (Bld) 60.2 % [facility] Nucleated RBC (Bld) [#/Vol] <0.01 k/uL [facility] Nucleated RBC/100 WBC (Bld) [Ratio] 0.0 /100 WBC [facility] Platelet mean volume (Bld) [Entitic vol] 8.7 fL Low 9.0 - 12.7 fL [facility] Platelets (Bld) [#/Vol] 192 10*3/uL 150 - 400 k/uL [facility] RBC (Bld) [#/Vol] 4.95 10*6/uL 4.20 - 6.00 m/uL [facility] WBC (Bld) [#/Vol] 7.13 10*3/uL 3.70 - 11.00 k/u L [facility] Comprehensive metabolic 2000 panelon 11-21-2022 Albumin [Mass/Vol] 4.7 g/dL 3.9 - 4.9 g/dL [facility] ALP [Catalytic activity/Vol] 94 U/L 38 - 113 U/L [facility] ALT [Catalytic activity/Vol] 20 U/L 10 - 54 U/L [facility] Anion gap [Moles/Vol] 10 mmol/L 9 - 18 mmol/L [facility] AST [Catalytic activity/Vol] 15 U/L 14 - 40 U/L [facility] Bilirubin [Mass/Vol] 0.3 mg/dL 0.2 - 1.3 mg/dL [facility] Calcium [Mass/Vol] 10.1 mg/dL 8.5 - 10.2 mg/dL [facility] Chloride [Moles/Vol] 102 mmol/L 97 - 105 mmol/L [facility] CO2 [Moles/Vol] 26 mmol/L 22 - 30 mmol/L [facility] Creatinine [Mass/Vol] 1.15 mg/dL 0.73 - 1.22 mg/dL [facility] Estimated Glomerular Filtration Rate 75 mL/min/1.73m >=60 mL/min/1.73m [facility] Glucose [Mass/Vol] 91 mg/dL 74 - 99 mg/dL [facility] Potassium [Moles/Vol] 3.9 mmol/L 3.7 - 5.1 mmol/L [facility] Protein [Mass/Vol] 7.2 g/dL 6.3 - 8.0 g/dL [facility] Sodium [Moles/Vol] 138 mmol/L 136 - 144 mmol/L [facility] Urea nitrogen [Mass/Vol] 24 mg/dL 9 - 24 mg/dL [facility] Laboratory - Chemistry and C hemistry - challengeon 11-21-2022 Magnesium [Mass/Vol] 2.3 mg/dL 1.7 - 2.3 mg/dL [facility] CBC AUTO DIFFon 10-13-2022 BASO # 0.0 103/ul Normal 0.0-0.1 [facility] Comment on above: Performed By: #### C BC #### [facility] [address] [address] [address] Nima Ortiz Basophils/100 WBC (Bld) 0.5 % Normal 0.2-2.0 [facility] Comment on above: Performed By: #### C BC #### [facility] [address] [address] [address] Nima Ortiz EO # 0.7 103/ul Normal 0.0-0.7 [facility] Comment on above: Performed By: #### C BC #### [facility] [address] [address] [address] Nima Ortiz Eosinophils/100 WBC (Bld) 9.0 % Critically high 0.9-7.0 [facility] Comment on above: Performed By: #### C BC #### [facility] [address] [place] [address] Dr. Nima Ortiz Erythrocyte distribution width (RBC) [Ratio] 12.6 % Normal 11.0-15.0 [facility] Comment on above: Performed By: #### C BC #### [facility] [address] [address] [address] Nima Ortiz Hematocrit (Bld) [Volume fraction] 38.7 % Critically low 42.0-54.0 [facility] Comment on above: Performed By: #### C BC #### [facility] [address] [address] [address] Nima Ortiz Hemoglobin (Bld) [Mass/Vol] 12.7 g/dL Critically low 14.0-18.0 [facility] Comment on above: Performed By: #### C BC #### [facility] [address] [place] [address] Dr. Nima Ortiz IG # 0.02 10e3/ul Normal 0.00-0.03 [facility] Comment on above: Performed By: #### C BC #### [facility] [address] [place] [address] Dr. Nima Ortiz IG % 0.2 % Normal 0.0-0.5 [facility] Comment on above: Performed By: #### C BC #### [facility] [address] [place] [address] Dr. Nima Ortiz LYMPH # 1.7 103/ul Normal 1.2-3.8 [facility] Comment on above: Performed By: #### C BC #### [facility] [address] [place] [address] Dr. Nima Ortiz Lymphocytes/100 WBC (Bld) 21.4 % Normal 20.5-60.0 [facility] Comment on above: Performed By: #### C BC #### [facility] [address] [place] [address] Dr. Nima Ortiz MANUAL DIFF REQ NO Normal [facility] Comment on above: Performed By: #### C BC #### [facility] [address] [place] [address] Dr. Nima Ortiz MCH (RBC) [Entitic mass] 28.5 pg Normal 25.9-34.0 [facility] Comment on above: Performed By: #### C BC #### [facility] [address] [place] [address] Dr. Nima Ortiz MCHC (RBC) [Mass/Vol] 32.8 g/dL Normal 29.9-35.2 [facility] Comment on above: Performed By: #### C BC #### [facility] [address] [place] [address] Dr. Nima Ortiz MCV (RBC) [Entitic vol] 87.0 fL Normal 80.0-94.0 [facility] Comment on above: Performed By: #### C BC #### [facility] [address] [address] [address] Nima Ortiz MONO # 0.6 103/ul Normal 0.3-0.8 [facility] Comment on above: Performed By: #### C BC #### [facility] [address] [place] [address] Dr. Nima Ortiz Monocytes/100 WBC (Bld) 7.2 % Normal 1.7-12.0 [facility] Comment on above: Performed By: #### C BC #### [facility] [address] [place] [address] Dr. Nima Ortiz NEUT # 5.0 103/ul Normal 1.4-6.5 [facility] Comment on above: Performed By: #### C BC #### [facility] [address] [place] [address] Dr. Nima Ortiz Neutrophils/100 WBC (Bld) 61.7 % Normal 43.0-75.0 [facility] Comment on above: Performed By: #### C BC #### [facility] [address] [place] [address] Dr. Nima Ortiz Platelet mean volume (Bld) [Entitic vol] 8.7 fL Critically low 9.5-13.5 [facility] Comment on above: Performed By: #### C BC #### [facility] [address] [place] [address] Dr. Nima Ortiz PLT 189 103/ul Normal 150-450 [facility] Comment on above: Performed By: #### C BC #### [facility] [address] [place] [address] Dr. Nima Ortiz RBC 4.45 106/ul Critically low 4.70-6.10 [facility] Comment on above: Performed By: #### C BC #### [facility] [address] [place] [address] Dr. Nima Ortiz WBC 8.1 103/ul Normal 4.0-11.0 [facility] Comment on above: Performed By: #### C BC #### [facility] [address] [place] [address] NECK ST W CONon [address] W CON EXAMINATION: CT NECK ST W CON HISTORY: Primary malignant neoplasm of tongue COMPARISON: Ultrasound soft tissue head-neck 09/09/2022 TECHNIQUE: Axial, Coronal, and Sagittal CT images created with IV contrast. Dose reduction techniques were achieved by using automated exposure control and/or adjustment of mA and/or kV according to patient size and/or use of iterative reconstruction technique. FINDINGS: NASOPHARYNX: No asymmetry of the fossae of Rosenmuller and torus tubarius. ORAL CAVITY: No visible mass. OROPHARYNX: Large, slightly hyperdense mass within posterior right base of tongue, 4.5 x 2.9 x 2.7 cm. HYPOPHARYNX: No mass or other visible lesion. LARYNX: No mass or asymmetry of the vocal cords. SINUSES: No significant fluid or mucosal thickening. NECK GLADS: No visible abnormality of the parotid, submandibular, and thyroid glands. LYMPH NODES: Enlarged right parapharyngeal lymph node, level 2, 4.6 x 2.4 x 2.7 cm VASCULATURE: No suspicious abnormality. BONES: No significant osseous lesions. OTHER: No additional imaging findings. IMPRESSION: 1. Large posterior right tongue base mass consistent with history of neoplasm. No comparison studies. 2. Large right parapharyngeal/level 2 lymph node versus mass; also seen on prior ultrasound study and previously biopsied. Electronically authenticated by: JULIO RALPH Date: 2022-10-13 11:19 Normal [facility] SARS-CoV-2 (COVID-19) RNA SARAH+probe Ql (Unsp spec) Not detected Normal NOT DETECTED [facility] Comment on above: Result Comment: This test is not yet approved or cleared by the [place] FDA. When there are no FDA-approved or cleared tests available, and other criteria are met, FDA can make tests available under an emergency access mechanism called an Emergency Use Authorization (EUA). The EUA for this test is supported by the [place] of Health and Human Service's (HHS's) declaration that circumstances exist to justify the emergency use of in vitro diagnostics for the detection and/or diagnosis of the virus that causes COVID-19. This EUA will remain in effect (meaning this test can be used) for the duration of the COVID-19 declaration justifying emergency of IVDs, unless it is terminated or revoked by FDA (after which the test may no longer be used). When diagnostic testing is negative, the possibility of a false negative should be considered in the context of a patient's recent exposures and the presence of clinical signs and symptoms consistent with SARS-CoV-2. Performed By: #### C VDTBH #### [facility] [address] [place] [address] Dr. Nima Ortiz PROTIMEon 10-13-2022 INR Coag (PPP) [Relative time] 0.95 {INR} Normal [facility] Comment on above: Performed By: #### P T, PTT #### [facility] [address] [place] [address] Dr. Nima Ortiz INR GUIDELINES SEE BELOW Normal [facility] Comment on above: Result Comment: [place] RED INR: 2.0 - 3.0 CONDITIONS NOT LISTED BELOW 2.5 - 3.5 FOR PROSTHETIC HEART VALVE REPLACEMENT 2.5 - 3.5 RECURRENT THROMBOSIS Performed By: #### P T, PTT #### [facility] [address] [place] [address] Dr. Nima Ortiz PT Coag (PPP) [Time] 10.3 s Normal 9.0-11.6 [facility] Comment on above: Performed By: #### P T, PTT #### [facility] [address] [place], [place] [id number] Dr. Nima Ortiz PTTon 10-13-2022 aPTT Coag (Bld) [Time] 27.5 s Normal 22.3-36.2 [facility] Comment on above: Performed By: #### P T, PTT #### [facility] [address] [place], [place] [id number] Dr. Nima Ortiz US FINE NEEDLE ASP EXPon US FINE NEEDLE ASP EXP Begin Addendum #1 COLLECTED DATE/TIME: 09/19/2022 13:57 EST Final Diagnosis Report for [facility] [place] [place] (A/B) RIGHT NECK MASS, ULTRASOUND GUIDED FINE NEEDLE ASPIRATION: -RARE ISOLATED DEGENERATIVE ATYPICAL CELLS ARE PRESENT, SEE COMMENT. Result Name Results FLOW INTERPRETATION Comment No monoclonal B-cells and no atypical T-cell population detected, see comment. 09/22/[address] Burton (RADHA). Verified with office nurse that report was present (BM). Original Report EXAMINATION: US FINE NEEDLE ASP EXP HISTORY: Mass of neck COMPARISON: No relevant comparison available. TECHNIQUE: After obtaining informed consent, ultrasound-guided fine needle aspiration was performed in the usual sterile manner. FINDINGS: IMAGING: Ultrasound. BIOPSY NEEDLE: 2 inch 25-gauge LOCATION: Hypervascular 3.9 cm right neck mass SPECIMEN TYPE: 4 fine-needle aspirates. LOCAL ANESTHETIC: 3 mL 1% buffered lidocaine. COMPLICATIONS: None. LABORATORY: Prepared slide smears and washings for cell block evaluation. OTHER: Negative. PATHOLOGY: Pending. An addendum will be added when results are available. IMPRESSION: 1. Uneventful ultrasound guided fine needle aspiration (FNA). 2. Pathology results are pending. Normal [facility] LEUKEMIA/LYMPHOMA PROFILEon 09-21-2022 ANALYSIS AND GATING STRATEGY Comment Normal [facility] Comment on above: Result Comment: 8 co maikol analysis with 7-AAD, CD45/SSC gating Performed at: -Y Performed By: #### F LOWL #### [facility] [address] [place] [address] Dr. Nima Ortiz ASSESSMENT OF LEUKOCYTES Comment Normal [facility] Comment on above: Result Comment: No m onoclonal B cell population is detected. kappa:lambda ratio 1.6 CD4:CD8 ratio 4.2 Enrichment procedure is performed. Performed at: -Y Performed By: #### F LOWL #### [facility] [address] [place] [address] Dr. Nima Ortiz COMMENT Comment [facility] Comment on above: Result Comment: Each antibody in this assay was utilized to assess for potential abnormalities of studied cell populations or to characterize identified abnormalities. . This test was developed and its performance characteristics determined by [employer]. It has not been cleared or approved by the [place] Food and Drug Administration. . The FDA has determined that such clearance or approval is not necessary. This test is used for clinical purposes. It should not be regarded as investigational or for research. Performed at: TG Performed By: #### F LOWL #### [facility] [address] [place] [address] Dr. Nima Ortiz FLOW COMMENT Comment Normal [facility] Comment on above: Result Comment: Ther e is no immunophenotypic evidence of a B- cell clone or aberrant T-cell population. Certain large cell lymphoma, CD30 positive lymphoproliferative disorder/lymphoma and non-hematopoietic neoplasm cannot be excluded by flow cytometry analysis alone. In addition, the flow cytometry finding should be interpreted with caution due to decreased specimen viability. Correlation with morphologic finding is recommended for complete evaluation. Performed at: -Y Performed By: #### F LOWL #### [facility] [address] [place] [address] Dr. Nima Ortiz FLOW INTERPRETATION Comment Normal [facility] Comment on above: Result Comment: No m onoclonal B-cells and no atypical T-cell population detected, see comment Performed at: -Y Performed By: #### F LOWL #### [facility] [address] [place] [address] Dr. Nima Ortiz PHENOTYPE CHART Comment Normal [facility] Comment on above: Result Comment: CD3 Normal CD4 Normal CD5 Normal CD8 Normal CD10 Normal CD19 Normal CD20 Normal CD38 Normal CD45 Normal CD57 Normal KAPPA Normal LAMBDA Normal Performed at: -Y Performed By: #### F LOWL #### [facility] [address] [place] [address] Dr. Nima Ortiz RESULTING PATH NAME Comment Normal [facility] Comment on above: Result Comment: Irma Germain M.D. Ph.D Performed at: -Y Performed By: #### F LOWL #### [facility] [address] [place] [address] Dr. Nima Ortiz Specimen type Nom (Spec) Comment Normal [facility] Comment on above: Result Comment: Righ t Cervical (*includes neck) mass Performed at: -Y Performed By: #### F LOWL #### [facility] [address] [place] [address] Dr. Nima Ortiz VIABILITY Comment Normal [facility] Comment on above: Result Comment: 42% This sample is less than 50% viable, which does not meet the standard for routine analysis. Its analysis is being reported because it is an irreplaceable sample. Because of the diminished certainty for the validity of these results, they must be interpreted in the context of morphological and all other test results. Performed at: -Y Performed By: #### F LOWL #### [facility] [address] [place] [address] Dr[address] US [address] HEAD_NECKon 09-12-[address] HEAD_NECK EXAM: US ST HEAD_NEC K HISTORY: Mass of neck COMPARISON: None. TECHNIQUE: Grayscale and color ultrasound FINDINGS: Hypervascular hyperechogenic heterogeneous mass measuring 4.0 x 3.5 x 1.8 cm, oval in shape with mildly lobular contour corresponding to the patient's palpable abnormality superior to the carotid artery bifurcation and inferior to the submandibular gland IMPRESSION: 4 cm hypervascular heterogeneous mass of unknown etiology corresponding to the patient's palpable abnormality. This lesion is amenable to ultrasound-guided biopsy Electronically authenticated by: FRANCINE STARR Date: 2022-09-12 07:15 Normal [facility] INSULINon 08-08-2022 Insulin 8.5 uIU/mL Normal 2.6-24.9 [facility] Comment on above: Performed By: #### I NSULIN #### [facility] [address] [place] [address] Dr. Nima Ortiz CBC AUTO DIFFon 08-06-2022 BASO # 0.1 103/ul Normal 0.0-0.1 [facility] Comment on above: Performed By: #### C BC ####[facility] [address] [address]DrVon Ortiz Basophils/100 WBC (Bld) 0.6 % Normal 0.2-2.0 [facility] Comment on above: Performed By: #### C BC ####[facility] [address] [address]DrVon Ortiz EO # 0.8 103/ul Critically high 0.0-0.7 [facility] Comment on above: Performed By: #### C BC ####[facility] [address] [address]DrVon Ortiz Eosinophils/100 WBC (Bld) 7.9 % Critically high 0.9-7.0 [facility] Comment on above: Performed By: #### C BC ####[facility] [address] [address]Dr. Nima Ortiz Erythrocyte distribution width (RBC) [Ratio] 12.7 % Normal 11.0-15.0 [facility] Comment on above: Performed By: #### C BC ####[facility] [address] [place], [place] [address]Dr. Nima Ortiz Hematocrit (Bld) [Volume fraction] 45.2 % Normal 42.0-54.0 [facility] Comment on above: Performed By: #### C BC ####[facility] [address] [place], [place] [address]Dr. Nima Ortiz Hemoglobin (Bld) [Mass/Vol] 15.5 g/dL Normal 14.0-18.0 [facility] Comment on above: Performed By: #### C BC ####[facility] [address] [place], [place] [address]Dr. Nima Ortiz IG # 0.02 10e3/ul Normal 0.00-0.03 [facility] Comment on above: Performed By: #### C BC ####[facility] [address] [place], [place] [address]Dr. Nima Ortiz IG % 0.2 % Normal 0.0-0.5 [facility] Comment on above: Performed By: #### C BC ####[facility] [address] [place], [place] [address]DrVon Nima Ortiz LYMPH # 2.1 103/ul Normal 1.2-3.8 [facility] Comment on above: Performed By: #### C BC ####[facility] [address] [place], [place] [address]DrVon Nima Ortiz Lymphocytes/100 WBC (Bld) 22.0 % Normal 20.5-60.0 [facility] Comment on above: Performed By: #### C BC ####[facility] [address] [place], [place] [address]Dr. Nima Ortiz MANUAL DIFF REQ NO Normal [facility] Comment on above: Performed By: #### C BC ####[facility] [address] [id number]. Nima Ortiz MCH (RBC) [Entitic mass] 29.6 pg Normal 25.9-34.0 [facility] Comment on above: Performed By: #### C BC ####[facility] [address] [address]Dr. Nima Ortiz MCHC (RBC) [Mass/Vol] 34.3 g/dL Normal 29.9-35.2 [facility] Comment on above: Performed By: #### C BC ####[facility] [address] [address]Dr. Nima Angel MCV (RBC) [Entitic vol] 86.4 fL Normal 80.0-94.0 [facility] Comment on above: Performed By: #### C BC ####[facility] [address] [place], [place] [address]Dr. Nima Ortiz MONO # 0.6 103/ul Normal 0.3-0.8 [facility] Comment on above: Performed By: #### C BC ####[facility] [address] [place], [place] [address]Dr. Damarislore Ortiz Monocytes/100 WBC (Bld) 6.7 % Normal 1.7-12.0 [facility] Comment on above: Performed By: #### C BC ####[facility] [address] [place], [place] [address]Dr. Nima Angel NEUT # 5.9 103/ul Normal 1.4-6.5 [facility] Comment on above: Performed By: #### C BC ####[facility] [address] [place], [place] [address]DrVon Ortiz Neutrophils/100 WBC (Bld) 62.6 % Normal 43.0-75.0 [facility] Comment on above: Performed By: #### C BC ####[facility] [address] [place], [place] [address]DrVon Ortiz Platelet mean volume (Bld) [Entitic vol] 8.8 fL Critically low 9.5-13.5 [facility] Comment on above: Performed By: #### C BC ####[facility] [address] [id number]. Nima Ortiz PLT 189 103/ul Normal 150-450 [facility] Comment on above: Performed By: #### C BC ####[facility] [address] [id number]. Nima Ortiz RBC 5.23 106/ul Normal 4.70-6.10 [facility] Comment on above: Performed By: #### C BC ####[facility] [address] [id number]. Nima Ortiz WBC 9.5 103/ul Normal 4.0-11.0 [facility] Comment on above: Performed By: #### C BC ####[facility] [address] [id number]. Nima Ortiz FREE THYROXINE INDEX T7on FTI 2.75 Normal 1.30-4.50 [facility] Comment on above: Performed By: #### U WILDER, CMP, LIPID, T7, TSH ####[facility] [address] [id number]. Nima Ortiz T3U 34.0 % Normal 33.0-40.0 [facility] Comment on above: Performed By: #### U WILDER, CMP, LIPID, T7, TSH ####[facility] [address] [id number]. Nima Ortiz T4 [Mass/Vol] 8.10 ug/dL Normal 4.50-12.10 [facility] Comment on above: Performed By: #### U WILDER, CMP, LIPID, T7, TSH ####[facility] [address] [address]Dr. Nima Ortiz GLYCOHEMOGLOBIN A1Con 2021 ADA RECOMMENDATION SEE BELOW Normal [facility] Comment on above: Result Comment: ADA RECOMMENDED LIMIT 4.0 - 6.0 ADA THERAPEUTIC TARGET < 7.0 ACTION SUGGESTED > 7.0 Performed By: #### A 1C ####[facility] [address] [place] [id number]. Nima Ortiz Glucose [Mass/Vol] 100 mg/dL Normal [facility] Comment on above: Performed By: #### A 1C ####[facility] [address] [place] [id number]. Nima Ortiz HbA1c (Bld) [Mass fraction] 5.1 % Normal 4.5-6.2 [facility] Comment on above: Performed By: #### A 1C ####[facility] [address] [place] [id number]. Nima Ortiz IRONon 08-06-2022 Iron [Mass/Vol] 79.0 ug/dL Normal 65.0-175.0 [facility] Comment on above: Performed By: #### I DIAMANTE #### [facility] [address] [address] [address] Nima Ortiz LIPID PROFILEon 08-06-2022 CHOL-HDL RATIO NORM SEE BELOW Normal [facility] Comment on above: Result Comment: 3.3 - 4.4 LOW RISK 4.4 - 7.1 AVERAGE RISK 7.1 - 11.0 MODERATE RISK >11.0 HIGH RISK Performed By: #### U WILDER, CMP, LIPID, T7, TSH ####[facility] [address] [place] [id number]. Nima Ortiz Cholesterol [Mass/Vol] 164 mg/dL Normal <=200 [facility] Comment on above: Performed By: #### U WILDER, CMP, LIPID, T7, TSH ####[facility] [address] [place] [id number]. Nima Ortiz Cholesterol in HDL [Mass/Vol] 49 mg/dL Normal 40-60 [facility] Comment on above: Performed By: #### U WILDER, CMP, LIPID, T7, TSH ####[facility] [address] [place] [id number]. Nima Ortiz Cholesterol in LDL [Mass/Vol] 106.0 mg/dL Normal [facility] Comment on above: Performed By: #### U WILDER, CMP, LIPID, T7, TSH ####[facility] [address] [place] [id number]. Nima Ortiz Cholesterol.total/Ch olesterol in HDL [Mass ratio] 3.3 {ratio} Normal [facility] Comment on above: Performed By: #### U WILDER, CMP, LIPID, T7, TSH ####[facility] [address] [place] [id number]. Nima Ortiz HDL NORMAL > or = 60 mg/dl - LO W CARDIOVASCULAR RISK <40 mg/dl - HIGH CARDIOVASCULAR RISK Normal [facility] Comment on above: Performed By: #### U WILDER, CMP, LIPID, T7, TSH ####[facility] [address] [place] [id number]. Niam Ortiz LDL CALC NORMAL SEE BELOW Normal [facility] Comment on above: Result Comment: <100 mg/dl OPTIMAL 100 - 129 mg/dl NEAR OR ABOVE OPTIMAL 130 - 159 mg/dl BORDERLINE HIGH 160 - 189 mg/dl HIGH >190 mg/dl VERY HIGH Performed By: #### U WILDER, CMP, LIPID, T7, TSH ####[facility] [address] [place] [id number]. Nima Ortiz Triglyceride [Mass/Vol] 45 mg/dL Normal <=150 [facility] Comment on above: Performed By: #### U WIDLER, CMP, LIPID, T7, TSH ####[facility] [address] [place] [id number]. Nima Ortiz VLDL CALC 9.0 mg/dL Normal [facility] Comment on above: Performed By: #### U WILDER, CMP, LIPID, T7, TSH ####[facility] [address] [place] [phone]. Nima Ortiz PROF 14(COMP METB)on 022 Albumin [Mass/Vol] 4.0 g/dL Normal 3.4-5.0 [facility] Comment on above: Performed By: #### U WILDER, CMP, LIPID, T7, TSH ####[facility] [address] [place] [phone]. Nima Ortiz Albumin/Globulin [Mass ratio] 1.1 {ratio} Normal [facility] Comment on above: Performed By: #### U WILDER, CMP, LIPID, T7, TSH ####[facility] [address] [place] [address]Dr. Nima Ortiz ALP [Catalytic activity/Vol] 85 U/L Normal 46-116 [facility] Comment on above: Performed By: #### U WILDER, CMP, LIPID, T7, TSH ####[facility] [address] [place] [address]Dr. Nima Ortiz ALT [Catalytic activity/Vol] 26 U/L Normal 16-63 [facility] Comment on above: Performed By: #### U WILDER, CMP, LIPID, T7, TSH ####[facility] [address] [place] [address]Dr. Nima Ortiz Anion gap [Moles/Vol] 10.8 mmol/L Normal [facility] Comment on above: Performed By: #### U WILDER, CMP, LIPID, T7, TSH ####[facility] [address] [place], [place] [address]Dr. Nima Ortiz AST [Catalytic activity/Vol] 10 U/L Critically low 15-37 [facility] Comment on above: Performed By: #### U WILDER, CMP, LIPID, T7, TSH ####[facility] [address] [place] [address]Dr. Nima Ortiz Bilirubin [Mass/Vol] 0.5 mg/dL Normal 0.2-1.0 [facility] Comment on above: Performed By: #### U WILDER, CMP, LIPID, T7, TSH ####[facility] [address] [place] [address]Dr. Nima Ortiz Calcium [Mass/Vol] 9.3 mg/dL Normal 8.5-10.1 [facility] Comment on above: Performed By: #### U WILDER, CMP, LIPID, T7, TSH ####[facility] [address] [place] [address]Dr. Nima Ortiz Chloride [Moles/Vol] 101 mmol/L Normal 98-107 [facility] Comment on above: Performed By: #### U WILDER, CMP, LIPID, T7, TSH ####[facility] [address] [place] [phone]. Nima Ortiz CO2 [Moles/Vol] 30.4 mmol/L Normal 21.0-32.0 [facility] Comment on above: Performed By: #### U WILDER, CMP, LIPID, T7, TSH ####[facility] [address] [place] [address]Dr. Nima Ortiz Creatinine [Mass/Vol] 1.15 mg/dL Normal 0.70-1.30 [facility] Comment on above: Performed By: #### U WILDER, CMP, LIPID, T7, TSH ####[facility] [address] [place] [address]Dr. Damarislore Ortiz EGFR-AF COMORAN >60 Normal >=60 [facility] Comment on above: Performed By: #### U WILDER, CMP, LIPID, T7, TSH ####[facility] [address] [place], [place] [address]Dr. Nima Ortiz EGFR-NON AF COMORAN >60 Normal >=60 [facility] Comment on above: Performed By: #### U WILDER, CMP, LIPID, T7, TSH ####[facility] [address] [place], [place] [address]Dr. Damarislore Ortiz Globulin (S) [Mass/Vol] 3.8 g/dL Normal [facility] Comment on above: Performed By: #### U WILDER, CMP, LIPID, T7, TSH ####[facility] [address] [place] [address]Dr. Nima Ortiz Glucose [Mass/Vol] 109 mg/dL Critically high 74-106 [facility] Comment on above: Performed By: #### U WILDER, CMP, LIPID, T7, TSH ####[facility] [address] [place], [place] [address]Dr. Damarislore Ortiz Potassium [Moles/Vol] 4.2 mmol/L Normal 3.5-5.1 [facility] Comment on above: Performed By: #### U WILDER, CMP, LIPID, T7, TSH ####[facility] [address] [place], [place] [address]Dr. Nima Ortiz Protein [Mass/Vol] 7.8 g/dL Normal 6.4-8.2 [facility] Comment on above: Performed By: #### U WILDER, CMP, LIPID, T7, TSH ####[facility] [address] [place] [address]Dr. Nima Ortiz Sodium [Moles/Vol] 138 mmol/L Normal 136-145 [facility] Comment on above: Performed By: #### U WILDER, CMP, LIPID, T7, TSH ####[facility] [address] [place] [address]Dr. Nima Ortiz Urea nitrogen [Mass/Vol] 17.0 mg/dL Normal 7.0-18.0 [facility] Comment on above: Performed By: #### U WILDER, CMP, LIPID, T7, TSH ####[facility] [address] [place] [address]Dr. Nima Ortiz Urea nitrogen/Creatinine [Mass ratio] 14.8 mg/mg Normal [facility] Comment on above: Performed By: #### U WILDER, CMP, LIPID, T7, TSH ####[facility] [address] [place] [address]Dr. Nima Ortiz TSHon 08-06-2022 TSH 1.748 uIU/mL Normal 0.358-3.740 [facility] Comment on above: Performed By: #### U WILDER, CMP, LIPID, T7, TSH ####[facility] [address] [place] [address]Dr. Nima Ortiz URIC ACID SERUMon 08-06-2022 Urate [Mass/Vol] 5.1 mg/dL Normal 3.5-7.2 [facility] Comment on above: Performed By: #### U WILDER, CMP, LIPID, T7, TSH ####[facility] [address] [place], [place] [address]Dr. Nima Ortiz PSA, FREE AND TOTAL RATIOon 04-21-2022 % Free PSA 16.6 % Normal [facility] Comment on above: Result Comment: The table below lists the probability of prostate cancer for men with non-suspicious CHRISTIANNE results and total PSA between 4 and 10 ng/mL, by patient age (Saundra et al, KIT 1998, 279:1542). % Free PSA 50-64 yr 65-75 yr 0.00-10.00% 56% 55% 10.01-15.00% 24% 35% 15.01-20.00% 17% 23% 20.01-25.00% 10% 20% >25.00% 5% 9% Please note: Saundra et al did not make specific recommendations regarding the use of percent free PSA for any other population of men. Performed By: #### P SAFREE #### [facility] [address] [place] [address] Dr. Nima Ortiz Prostate specific Ag [Mass/Vol] 3.8 ng/mL Normal 0.0-4.0 [facility] Comment on above: Result Comment: Gay VILLELA methodology. . According to the [employer] [employer], Serum PSA should decrease and remain at undetectable levels after radical prostatectomy. The AUA defines biochemical recurrence as an initial PSA value 0.2 ng/mL or greater followed by a subsequent confirmatory PSA value 0.2 ng/mL or greater. Values obtained with different assay methods or kits cannot be used interchangeably. Results cannot be interpreted as absolute evidence of the presence or absence of malignant disease. Performed By: #### P SAFREE #### [facility] [address] [place] [address] Dr. Nima Ortiz PSA, Free 0.63 ng/mL Normal N/A [facility] Comment on above: Result Comment: Gay VILLELA methodology. Performed By: #### P SAFREE #### [facility] [address] [place] [address] Dr. Nima Ortiz Vital Signs Date Time Vital Sign Value Performing Clinician Facility 05-14-2024 14:28040 Body height 180.3 cm [facility] 05-14-2024 14:[id number] Body mass index (BMI) [Ratio] 29.01 kg/m2 [facility] 05-14-2024 14:[id number] Body weight 94.35 kg [facility] 05-10-2024 09:[id number] Body height 177.8 cm Tom Medina MD Work Phone: [facility] 05-10-2024 09:43-0400 Body mass index (BMI) [Ratio] 30.4 kg/m2 Tom Medina MD Work Phone: [facility] 05-10-2024 09:43-0400 Body weight 96.1 kg Tom Medina MD Work Phone: [facility] 05-10-2024 09:43-0400 Diastolic blood pressure 77 mm[Hg] Tom Medina MD Work Phone: [facility] 05-10-2024 09:43-0400 Heart rate 56 /min Tom Medina MD Work Phone: [facility] 05-10-2024 09:43-0400 SaO2% (BldA) [Mass fraction] 98 % Tom Medina MD Work Phone: [facility] 05-10-2024 09:43-0400 Systolic blood pressure 137 mm[Hg] Tom Medina MD Work Phone: [facility] 05-08-2024 13:28-0400 Body height 180 cm Elizabeth Borjas MD Work Phone: [facility] 05-08-2024 13:28-0400 Body mass index (BMI) [Ratio] 29.51 kg/m2 Elizabeth Borjas MD Work Phone: [facility] 05-08-2024 13:28-0400 Body temperature 97.81 [degF] Elizabeth Borjas MD Work Phone: [facility] 05-08-2024 13:28-0400 Body weight 95.6 kg Elizabeth Borjas MD Work Phone: [facility] 05-08-2024 13:28-0400 Diastolic blood pressure 90 mm[Hg] Elizabeth Borjas MD Work Phone: [facility] 05-08-2024 13:28-0400 Heart rate 74 /min Elizabeth Borjas MD Work Phone: [facility] 05-08-2024 13:28-0400 Respiratory rate 18 /min Elizabeth Borjas MD Work Phone: [facility] 05-08-2024 13:28-0400 SaO2% (BldA) [Mass fraction] 100 % Elizabeth Borjas MD Work Phone: [facility] 05-08-2024 13:28-0400 Systolic blood pressure 145 mm[Hg] Elizabeth Borjas MD Work Phone: [facility] 03-26-2024 13:33-0400 Body height 180 cm Vanesa Jason PA-C Work Phone: [facility] 03-26-2024 13:33-0400 Body mass index (BMI) [Ratio] 29.32 kg/m2 Vanesa Jason PA-C Work Phone: [facility] 03-26-2024 13:33-0400 Body temperature 97.7 [degF] Vanesa Jason PA-C Work Phone: [facility] 03-26-2024 13:33-0400 Body weight 95 kg Vanesa Jason PA-C Work Phone: [facility] 03-26-2024 13:33-0400 Diastolic blood pressure 73 mm[Hg] Vanesa Jason PA-C Work Phone: [facility] 03-26-2024 13:33-0400 Heart rate 87 /min Vanesa Jason PA-C Work Phone: [facility] 03-26-2024 13:33-0400 Respiratory rate 16 /min Vanesa Jason PA-C Work Phone: [facility] 03-26-2024 13:33-0400 SaO2% (BldA) [Mass fraction] 97 % Vanesa Jason PA-C Work Phone: [facility] 03-26-2024 13:33-0400 Systolic blood pressure 123 mm[Hg] Vanesa Gomez PA-C Work Phone: [facility] 02-13-2024 09:33-0400 Body mass index (BMI) [Ratio] 28.64 kg/m2 Chair Wes Work Phone: [facility] 02-13-2024 09:33-0400 Body temperature 97.5 [degF] Chair Harford Work Phone: [facility] 02-13-2024 09:33-0400 Body weight 92.8 kg Chair Wes Work Phone: [facility] 02-13-2024 09:33-0400 Diastolic blood pressure 88 mm[Hg] Chair Wes Work Phone: [facility] 02-13-2024 09:33-0400 Heart rate 53 /min Chair Wes Work Phone: [facility] 02-13-2024 09:33-0400 Respiratory rate 18 /min Chair Wes Work Phone: [facility] 02-13-2024 09:33-0400 SaO2% (BldA) [Mass fraction] 100 % Chair Wes Work Phone: [facility] 02-13-2024 09:33-0400 Systolic blood pressure 138 mm[Hg] Chair Wes Work Phone: [facility] 01-02-2024 09:14-0400 Body height 180 cm Celestina Hallman APRN.SIGNAL ENGINEER Work Phone: [facility] 01-02-2024 09:14-0400 Body temperature 97.2 [degF] Celestina Hallman APRN.SIGNAL ENGINEER Work Phone: [facility] 01-02-2024 09:14-0400 Body weight 92.53 kg Celestina Hallman APRN.CNP Work Phone: [facility] 01-02-2024 09:14-0400 Diastolic blood pressure 74 mm[Hg] Celestina Hallman APRN.SIGNAL ENGINEER Work Phone: [facility] 01-02-2024 09:14-0400 Heart rate 70 /min Celestina Hallman SUPERVISOR KENNEL.SIGNAL ENGINEER Work Phone: [facility] 01-02-2024 09:14-0400 Respiratory rate 18 /min Celestina Hallman SUPERVISOR KENNEL.SIGNAL ENGINEER Work Phone: [facility] 01-02-2024 09:14-0400 SaO2% (BldA) [Mass fraction] 98 % Celestina Hallman SUPERVISOR KENNEL.SIGNAL ENGINEER Work Phone: [facility] 01-02-2024 09:14-0400 Systolic blood pressure 136 mm[Hg] Celestina Hallman SUPERVISOR KENNEL.SIGNAL ENGINEER Work Phone: [facility] 12-12-2023 09:53-0500 Body height 180 cm Elizabeth Borjas MD Work Phone: [facility] 12-12-2023 09:53-0500 Body temperature 98.1 [degF] Elizabeth Borjas MD Work Phone: [facility] 12-12-2023 09:53-0500 Body weight 94.8 kg Elizabeth Borjas MD Work Phone: [facility] 12-12-2023 09:53-0500 Diastolic blood pressure 77 mm[Hg] Elizabeth Borjas MD Work Phone: [facility] 12-12-2023 09:53-0500 Heart rate 66 /min Elizabeth Borjas MD Work Phone: [facility] 12-12-2023 09:53-0500 Respiratory rate 16 /min Elizabeth Borjas MD Work Phone: [facility] 12-12-2023 09:53-0500 SaO2% (BldA) [Mass fraction] 99 % Elizabeth Borjas MD Work Phone: [facility] 12-12-2023 09:53-0500 Systolic blood pressure 132 mm[Hg] Elizabeth Borjas MD Work Phone: [facility] 11-17-2023 13:18-0500 Body height 182.9 cm Enoch Forbes MD Work Phone: [facility] 11-17-2023 13:18-0500 Body mass index (BMI) [Ratio] 27.8 kg/m2 Enoch Forbes MD Work Phone: [facility] 11-17-2023 13:18-0500 Body weight 92.99 kg Enoch Forbes MD Work Phone: [facility] 11-17-2023 13:18-0500 Diastolic blood pressure 78 mm[Hg] Enoch Forbes MD Work Phone: [facility] 11-17-2023 13:18-0500 Systolic blood pressure 124 mm[Hg] Enoch Forbes MD Work Phone: [facility] 11-14-2023 09:10-0500 Body height 180 cm Elizabeth Borjas MD Work Phone: [facility] 11-14-2023 09:10-0500 Body temperature 98.29 [degF] Elizabeth Borjas MD Work Phone: [facility] 11-14-2023 09:10-0500 Body weight 91.1 kg Elizabeth Borjas MD Work Phone: [facility] 11-14-2023 09:10-0500 Diastolic blood pressure 76 mm[Hg] Elizabeth Borjas MD Work Phone: [facility] 11-14-2023 09:10-0500 Heart rate 66 /min Elizabeth Borjas MD Work Phone: [facility] 11-14-2023 09:10-0500 Respiratory rate 16 /min Elizabeth Borjas MD Work Phone: [facility] 11-14-2023 09:10-0500 SaO2% (BldA) [Mass fraction] 97 % Elizabeth Borjas MD Work Phone: [facility] 11-14-2023 09:10-0500 Systolic blood pressure 135 mm[Hg] Elizabeth Borjas MD Work Phone: [facility] 09-26-2023 09:40-0500 Body height 180 cm Elizabeth Borjas MD Work Phone: [facility] 09-26-2023 09:40-0500 Body temperature 97.81 [degF] Elizabeth Borjas MD Work Phone: [facility] 09-26-2023 09:40-0500 Body weight 88.1 kg Elizabeth Borjas MD Work Phone: [facility] 09-26-2023 09:40-0500 Diastolic blood pressure 77 mm[Hg] Elizabeth Borjas MD Work Phone: [facility] 09-26-2023 09:40-0500 Heart rate 60 /min Elizabeth Borjas MD Work Phone: [facility] 09-26-2023 09:40-0500 Respiratory rate 16 /min Elizabeth Borjas MD Work Phone: [facility] 09-26-2023 09:40-0500 SaO2% (BldA) [Mass fraction] 98 % Elizabeth Borjas MD Work Phone: [facility] 09-26-2023 09:40-0500 Systolic blood pressure 146 mm[Hg] Elizabeth Borjas MD Work Phone: [facility] 09-06-2023 15:00-0500 Body height 184.6 cm Elizabeth Borjas MD Work Phone: [facility] 09-06-2023 15:00-0500 Body temperature 98.4 [degF] Elizabeth Borjas MD Work Phone: [facility] 09-06-2023 15:00-0500 Body weight 90.72 kg Elizabeth Borjas MD Work Phone: [facility] 09-06-2023 15:00-0500 Diastolic blood pressure 81 mm[Hg] Elizabeth Borjas MD Work Phone: [facility] 09-06-2023 15:00-0500 Heart rate 63 /min Elizabeth Borjas MD Work Phone: [facility] 09-06-2023 15:00-0500 Respiratory rate 18 /min Elizabeth Borjas MD Work Phone: [facility] 09-06-2023 15:00-0500 SaO2% (BldA) [Mass fraction] 97 % Elizabeth Borjas MD Work Phone: [facility] 09-06-2023 15:00-0500 Systolic blood pressure 144 mm[Hg] Elizabeth Borjas MD Work Phone: [facility] 08-30-2023 11:15-0500 Diastolic blood pressure 91 mm[Hg] Nila Alexander MD Work Phone: [facility] 08-30-2023 11:15-0500 Heart rate 64 /min Nila Alexander MD Work Phone: [facility] 08-30-2023 11:15-0500 Respiratory rate 18 /min Nila Alexander MD Work Phone: [facility] 08-30-2023 11:15-0500 SaO2% (BldA) [Mass fraction] 100 % Nila Alexander MD Work Phone: [facility] 08-30-2023 11:15-0500 Systolic blood pressure 163 mm[Hg] Nila Alexander MD Work Phone: [facility] 08-30-2023 10:49-0500 Body temperature 96.8 [degF] Nila Alexander MD Work Phone: [facility] 08-24-2023 09:49-0500 Body temperature 97.7 [degF] Carissa Reyes MD Work Phone: [facility] 08-24-2023 09:49-0500 Body weight 85.73 kg Carissa Reyes MD Work Phone: [facility] 08-24-2023 09:49-0500 Diastolic blood pressure 76 mm[Hg] Carissa Reyes MD Work Phone: [facility] 08-24-2023 09:49-0500 Heart rate 54 /min Carissa Reyes MD Work Phone: [facility] 08-24-2023 09:49-0500 Respiratory rate 16 /min Carissa Reyes MD Work Phone: [facility] 08-24-2023 09:49-0500 SaO2% (BldA) [Mass fraction] 99 % Carissa Reyes MD Work Phone: [facility] 08-24-2023 09:49-0500 Systolic blood pressure 124 mm[Hg] Carissa Reyes MD Work Phone: [facility] 07-25-2023 14:40-0400 Body height 184.6 cm Elizabeth Borjas MD Work Phone: [facility] 07-25-2023 14:40-0400 Body temperature 97.81 [degF] Elizabeth Borjas MD Work Phone: [facility] 07-25-2023 14:40-0400 Body weight 87.82 kg Elizabeth Borjas MD Work Phone: [facility] 07-25-2023 14:40-0400 Diastolic blood pressure 86 mm[Hg] Elizabeth Borjas MD Work Phone: [facility] 07-25-2023 14:40-0400 Heart rate 64 /min Elizabeth Borjas MD Work Phone: [facility] 07-25-2023 14:40-0400 Respiratory rate 16 /min Elizabeth Borjas MD Work Phone: [facility] 07-25-2023 14:40-0400 SaO2% (BldA) [Mass fraction] 99 % Elizabeth Borjas MD Work Phone: [facility] 07-25-2023 14:40-0400 Systolic blood pressure 144 mm[Hg] Elizabeth Borjas MD Work Phone: [facility] 07-07-2023 10:09-0400 Blood Pressure Location Norma Lue [facility] 07-07-2023 10:09-0400 Diastolic blood pressure 84 mm[Hg] Norma Lue [facility] 07-07-2023 10:09-0400 Heart rate 62 /min Norma Lue [facility] 07-07-2023 10:09-0400 Systolic blood pressure 132 mm[Hg] Norma Lue [facility] 06-08-2023 09:56-0400 Blood Pressure Location Norma Lue [facility] 06-08-2023 09:56-0400 Diastolic blood pressure 99 mm[Hg] Norma Lue [facility] 06-08-2023 09:56-0400 Heart rate 54 /min Norma Lue [facility] 06-08-2023 09:56-0400 Systolic blood pressure 149 mm[Hg] Norma Lue [facility] 04-18-2023 15:10-0400 Body temperature 98.01 [degF] SHELLIE Esposito MD Work Phone: [facility] 04-18-2023 15:10-0400 Body weight 83.01 kg SHELLIE Esposito MD Work Phone: [facility] 04-18-2023 15:10-0400 Diastolic blood pressure 74 mm[Hg] SHELLIE Esposito MD Work Phone: [facility] 04-18-2023 15:10-0400 Heart rate 51 /min SHELLIE Esposito MD Work Phone: [facility] 04-18-2023 15:10-0400 Respiratory rate 16 /min SHELLIE Esposito MD Work Phone: [facility] 04-18-2023 15:10-0400 Systolic blood pressure 138 mm[Hg] SHELLIE Esposito MD Work Phone: [facility] 04-18-2023 14:09-0400 Body height 184.6 cm Elizabeth Borjas MD Work Phone: [facility] 04-18-2023 14:09-0400 Body temperature 98.01 [degF] Elizabeth Borjas MD Work Phone: [facility] 04-18-2023 14:09-0400 Body weight 83.37 kg Elizabeth Borjas MD Work Phone: [facility] 04-18-2023 14:09-0400 Diastolic blood pressure 74 mm[Hg] Elizabeth Borjas MD Work Phone: [facility] 04-18-2023 14:09-0400 Heart rate 51 /min Elizabeth Borjas MD Work Phone: [facility] 04-18-2023 14:09-0400 Respiratory rate 16 /min Elizabeth Borjas MD Work Phone: [facility] 04-18-2023 14:09-0400 SaO2% (BldA) [Mass fraction] 99 % Elizabeth Borjas MD Work Phone: [facility] 04-18-2023 14:09-0400 Systolic blood pressure 138 mm[Hg] Elizabeth Borjas MD Work Phone: [facility] 03-02-2023 12:52-0400 Body temperature 97.5 [degF] SHELILE Esposito MD Work Phone: [facility] 03-02-2023 12:52-0400 Body weight 84.37 kg SHELLIE Esposito MD Work Phone: [facility] 03-02-2023 12:52-0400 Diastolic blood pressure 75 mm[Hg] SHELLIE Esposito MD Work Phone: [facility] 03-02-2023 12:52-0400 Heart rate 56 /min SHELLIE Esposito MD Work Phone: [facility] 03-02-2023 12:52-0400 Respiratory rate 18 /min SHELLIE Esposito MD Work Phone: [facility] 03-02-2023 12:52-0400 SaO2% (BldA) [Mass fraction] 99 % SHELLIE Esposito MD Work Phone: [facility] 03-02-2023 12:52-0400 Systolic blood pressure 133 mm[Hg] SHELLIE Esposito MD Work Phone: [facility] 01-27-2023 08:37-0400 Body temperature 97.3 [degF] SHELLIE Esposito MD Work Phone: [facility] 01-27-2023 08:37-0400 Body weight 83.01 kg SHELLIE Esposito MD Work Phone: [facility] 01-27-2023 08:37-0400 Diastolic blood pressure 74 mm[Hg] SHELLIE Esposito MD Work Phone: [facility] 01-27-2023 08:37-0400 Heart rate 55 /min SHELLIE Esposito MD Work Phone: [facility] 01-27-2023 08:37-0400 Respiratory rate 16 /min SHELLIE Esposito MD Work Phone: [facility] 01-27-2023 08:37-0400 SaO2% (BldA) [Mass fraction] 99 % SHELLIE Esposito MD Work Phone: [facility] 01-27-2023 08:37-0400 Systolic blood pressure 120 mm[Hg] SHELLIE Esposito MD Work Phone: [facility] 01-20-2023 13:19-0400 Body height 184.6 cm Vanesa Jason PA-C Work Phone: [facility] 01-20-2023 13:19-0400 Body temperature 97.59 [degF] Vanesa Jason PA-C Work Phone: [facility] 01-20-2023 13:19-0400 Body weight 82.92 kg Vanesa Jason PA-C Work Phone: [facility] 01-20-2023 13:19-0400 Diastolic blood pressure 66 mm[Hg] Vanesa Jason PA-C Work Phone: [facility] 01-20-2023 13:19-0400 Heart rate 71 /min Vanesa Jason PA-C Work Phone: [facility] 01-20-2023 13:19-0400 Respiratory rate 16 /min Vanesa Jason PA-C Work Phone: [facility] 01-20-2023 13:19-0400 SaO2% (BldA) [Mass fraction] 99 % Vanesa Jason PA-C Work Phone: [facility] 01-20-2023 13:19-0400 Systolic blood pressure 111 mm[Hg] Vanesa Jason PA-C Work Phone: [facility] 01-13-2023 11:43-0400 Body height 184.6 cm Vanesa Jason PA-C Work Phone: [facility] 01-13-2023 11:43-0400 Body temperature 97.9 [degF] Vanesa Jason PA-C Work Phone: [facility] 01-13-2023 11:43-0400 Body weight 81.01 kg Vanesa Jason PA-C Work Phone: [facility] 01-13-2023 11:43-0400 Diastolic blood pressure 68 mm[Hg] Vanesa Jason PA-C Work Phone: [facility] 01-13-2023 11:43-0400 Heart rate 70 /min Vanesa Jason PA-C Work Phone: [facility] 01-13-2023 11:43-0400 Respiratory rate 16 /min Vanesa Jason PA-C Work Phone: [facility] 01-13-2023 11:43-0400 SaO2% (BldA) [Mass fraction] 95 % Vanesa Jason PA-C Work Phone: [facility] 01-13-2023 11:43-0400 Systolic blood pressure 119 mm[Hg] Vanesa Jason PA-C Work Phone: [facility] 01-12-2023 13:23-0400 Body temperature 98.4 [degF] SHELLIE Esposito MD Work Phone: [facility] 01-12-2023 13:23-0400 Body weight 81.38 kg SHELLIE Esposito MD Work Phone: [facility] 01-12-2023 13:23-0400 Diastolic blood pressure 70 mm[Hg] SHELLIE Esposito MD Work Phone: [facility] 01-12-2023 13:23-0400 Heart rate 81 /min SHELLIE Esposito MD Work Phone: [facility] 01-12-2023 13:23-0400 Respiratory rate 18 /min SHELLIE Esposito MD Work Phone: [facility] 01-12-2023 13:23-0400 SaO2% (BldA) [Mass fraction] 99 % SHELLIE Esposito MD Work Phone: [facility] 01-12-2023 13:23-0400 Systolic blood pressure 132 mm[Hg] SHELLIE Esposito MD Work Phone: [facility] 01-11-2023 09:14-0400 Body height 184.6 cm Elizabeth Borjas MD Work Phone: [facility] 01-11-2023 09:14-0400 Body temperature 97.5 [degF] Elizabeth Borjas MD Work Phone: [facility] 01-11-2023 09:14-0400 Body weight 81.92 kg Elizabeth Borjas MD Work Phone: [facility] 01-11-2023 09:14-0400 Diastolic blood pressure 62 mm[Hg] Elizabeth Borjas MD Work Phone: [facility] 01-11-2023 09:14-0400 Heart rate 90 /min Elizabeth Borjas MD Work Phone: [facility] 01-11-2023 09:14-0400 Respiratory rate 16 /min Elizabeth Borjas MD Work Phone: [facility] 01-11-2023 09:14-0400 SaO2% (BldA) [Mass fraction] 93 % Elizabeth Borjas MD Work Phone: [facility] 01-11-2023 09:14-0400 Systolic blood pressure 104 mm[Hg] Elizabeth Borjas MD Work Phone: [facility] 01-02-2023 13:55-0400 Body temperature 97.9 [degF] SHELLIE Esposito MD Work Phone: [facility] 01-02-2023 13:55-0400 Body weight 83.01 kg SHELLIE Esposito MD Work Phone: [facility] 01-02-2023 13:55-0400 Diastolic blood pressure 69 mm[Hg] SHELLIE Esposito MD Work Phone: [facility] 01-02-2023 13:55-0400 Heart rate 80 /min SHELLIE Esposito MD Work Phone: [facility] 01-02-2023 13:55-0400 Respiratory rate 16 /min SHELLIE Esposito MD Work Phone: [facility] 01-02-2023 13:55-0400 SaO2% (BldA) [Mass fraction] 99 % SHELLIE Esposito MD Work Phone: [facility] 01-02-2023 13:55-0400 Systolic blood pressure 127 mm[Hg] SHELLIE Esposito MD Work Phone: [facility] 12-30-2022 14:00-0400 Body temperature 99.1 [degF] Chair Harford Work Phone: [facility] 12-30-2022 14:00-0400 Diastolic blood pressure 69 mm[Hg] Chair Wes Work Phone: [facility] 12-30-2022 14:00-0400 Heart rate 80 /min Chair Harford Work Phone: [facility] 12-30-2022 14:00-0400 Respiratory rate 16 /min Chair Harford Work Phone: [facility] 12-30-2022 14:00-0400 SaO2% (BldA) [Mass fraction] 100 % Chair Harford Work Phone: [facility] 12-30-2022 14:00-0400 Systolic blood pressure 124 mm[Hg] Chair Wes Work Phone: [facility] 12-26-2022 13:28-0400 Body temperature 97.81 [degF] SHELLIE Esposito MD Work Phone: [facility] 12-26-2022 13:28-0400 Body weight 83.83 kg SHELLIE Esposito MD Work Phone: [facility] 12-26-2022 13:28-0400 Diastolic blood pressure 79 mm[Hg] SHELLIE Esposito MD Work Phone: [facility] 12-26-2022 13:28-0400 Heart rate 78 /min SHELLIE Esposito MD Work Phone: [facility] 12-26-2022 13:28-0400 Respiratory rate 18 /min SHELLIE Esposito MD Work Phone: [facility] 12-26-2022 13:28-0400 SaO2% (BldA) [Mass fraction] 97 % SHELLIE Esposito MD Work Phone: [facility] 12-26-2022 13:28-0400 Systolic blood pressure 124 mm[Hg] SHELLIE Esposito MD Work Phone: [facility] 12-26-2022 13:15-0400 Body weight 83.[address] Work Phone: [facility] 12-21-2022 09:58-0400 Body height 184.6 cm Elizabeth Borjas MD Work Phone: [facility] 12-21-2022 09:58-0400 Body temperature 97.5 [degF] Elizabeth Borjas MD Work Phone: [facility] 12-21-2022 09:58-0400 Body weight 84.28 kg Elizabeth Borjas MD Work Phone: [facility] 12-21-2022 09:58-0400 Diastolic blood pressure 71 mm[Hg] Elizabeth Borjas MD Work Phone: [facility] 12-21-2022 09:58-0400 Heart rate 69 /min Elizabeth Borjas MD Work Phone: [facility] 12-21-2022 09:58-0400 Respiratory rate 18 /min Elizabeth Borjas MD Work Phone: [facility] 12-21-2022 09:58-0400 SaO2% (BldA) [Mass fraction] 97 % Elizabeth Borjas MD Work Phone: [facility] 12-21-2022 09:58-0400 Systolic blood pressure 116 mm[Hg] Elizabeth Borjas MD Work Phone: [facility] 12-15-2022 14:20-0500 Body temperature 97.59 [degF] Chair Harford Work Phone: [facility] 12-15-2022 14:20-0500 Diastolic blood pressure 72 mm[Hg] Chair Wes Work Phone: [facility] 12-15-2022 14:20-0500 Heart rate 59 /min Chair Wes Work Phone: [facility] 12-15-2022 14:20-0500 SaO2% (BldA) [Mass fraction] 97 % Chair Wes Work Phone: [facility] 12-15-2022 14:20-0500 Systolic blood pressure 135 mm[Hg] Chair Harford Work Phone: [facility] 12-14-2022 08:38-0500 Body height 184.6 cm Vanesa Jason PA-C Work Phone: [facility] 12-14-2022 08:38-0500 Body temperature 97.3 [degF] Vanesa Jason PA-C Work Phone: [facility] 12-14-2022 08:38-0500 Body weight 86.36 kg Vanesa Jason PA-C Work Phone: [facility] 12-14-2022 08:38-0500 Diastolic blood pressure 62 mm[Hg] Vanesa Jason PA-C Work Phone: [facility] 12-14-2022 08:38-0500 Heart rate 93 /min Vanesa Jason PA-C Work Phone: [facility] 12-14-2022 08:38-0500 Respiratory rate 16 /min Vanesa Jason PA-C Work Phone: [facility] 12-14-2022 08:38-0500 SaO2% (BldA) [Mass fraction] 99 % Vanesa Jason PA-C Work Phone: [facility] 12-14-2022 08:38-0500 Systolic blood pressure 110 mm[Hg] Vanesa Jason PA-C Work Phone: [facility] 12-12-2022 14:32-0500 Body temperature 97.7 [degF] SHELLIE Esposito MD Work Phone: [facility] 12-12-2022 14:32-0500 Body weight 87.36 kg SHELLIE Esposito MD Work Phone: [facility] 12-12-2022 14:32-0500 Heart rate 70 /min SHELLIE Esposito MD Work Phone: [facility] 12-12-2022 14:32-0500 Respiratory rate 18 /min SHELLIE Esposito MD Work Phone: [facility] 12-07-2022 10:12-0500 Body temperature 97.81 [degF] Vanesa Jason PA-C Work Phone: [facility] 12-07-2022 10:12-0500 Body weight 86.91 kg Vanesa Jason PA-C Work Phone: [facility] 12-07-2022 10:12-0500 Diastolic blood pressure 79 mm[Hg] Vanesa Jason PA-C Work Phone: [facility] 12-07-2022 10:12-0500 Heart rate 71 /min Vanesa Jason PA-C Work Phone: [facility] 12-07-2022 10:12-0500 Respiratory rate 16 /min Vanesa Jason PA-C Work Phone: [facility] 12-07-2022 10:12-0500 SaO2% (BldA) [Mass fraction] 99 % Vanesa Jason PA-C Work Phone: [facility] 12-07-2022 10:12-0500 Systolic blood pressure 130 mm[Hg] Vanesa Jason PA-C Work Phone: [facility] 12-05-2022 13:39-0500 Body temperature 96.21 [degF] SHELLIE Esposito MD Work Phone: [facility] 12-05-2022 13:39-0500 Body weight 89.36 kg SHELLIE Esposito MD Work Phone: [facility] 12-05-2022 13:39-0500 Diastolic blood pressure 83 mm[Hg] SHELLIE Esposito MD Work Phone: [facility] 12-05-2022 13:39-0500 Heart rate 67 /min SHELLIE Esposito MD Work Phone: [facility] 12-05-2022 13:39-0500 Respiratory rate 18 /min SHELLIE Esposito MD Work Phone: [facility] 12-05-2022 13:39-0500 SaO2% (BldA) [Mass fraction] 98 % SHELLIE Esposito MD Work Phone: [facility] 12-05-2022 13:39-0500 Systolic blood pressure 147 mm[Hg] SHELLIE Esposito MD Work Phone: [facility] 11-28-2022 11:52-0500 Body temperature 96.69 [degF] SHELLIE Esposito MD Work Phone: [facility] 11-28-2022 11:52-0500 Body weight 88.91 kg SHELLIE Esposito MD Work Phone: [facility] 11-28-2022 11:52-0500 Diastolic blood pressure 92 mm[Hg] SHELLIE Esposito MD Work Phone: [facility] 11-28-2022 11:52-0500 Heart rate 66 /min SHELLIE Esposito MD Work Phone: [facility] 11-28-2022 11:52-0500 Respiratory rate 18 /min SHELLIE Esposito MD Work Phone: [facility] 11-28-2022 11:52-0500 SaO2% (BldA) [Mass fraction] 98 % SHELLIE Esposito MD Work Phone: [facility] 11-28-2022 11:52-0500 Systolic blood pressure 149 mm[Hg] SHELLIE Esposito MD Work Phone: [facility] 11-21-2022 09:58-0500 Body height 184.6 cm Chair Harford Work Phone: [facility] 11-21-2022 09:14-0500 Body height 180.3 cm Vanesa Jason PA-C Work Phone: [facility] 11-21-2022 09:14-0500 Body temperature 97.39 [degF] Vanesa Jason PA-C Work Phone: [facility] 11-21-2022 09:14-0500 Body weight 92.08 kg Vanesa Jason PA-C Work Phone: [facility] 11-21-2022 09:14-0500 Diastolic blood pressure 87 mm[Hg] Vanesa Jason PA-C Work Phone: [facility] 11-21-2022 09:14-0500 Heart rate 67 /min Vanesa Jason PA-C Work Phone: [facility] 11-21-2022 09:14-0500 Respiratory rate 16 /min Vanesa Jason PA-C Work Phone: [facility] 11-21-2022 09:14-0500 SaO2% (BldA) [Mass fraction] 99 % Vanesa Jason PA-C Work Phone: [facility] 11-21-2022 09:14-0500 Systolic blood pressure 145 mm[Hg] Vanesa Jason PA-C Work Phone: [facility] 11-02-2022 10:54-0500 Body height 180.3 cm Elizabeth Borjas MD Work Phone: [facility] 11-02-2022 10:54-0500 Body temperature 97.59 [degF] Elizabeth Borjas MD Work Phone: [facility] 11-02-2022 10:54-0500 Body weight 92.63 kg Elizabeth Borjas MD Work Phone: [facility] 11-02-2022 10:54-0500 Diastolic blood pressure 95 mm[Hg] Elizabeth Borjas MD Work Phone: [facility] 11-02-2022 10:54-0500 Heart rate 70 /min Elizabeth Borjas MD Work Phone: [facility] 11-02-2022 10:54-0500 Respiratory rate 16 /min Elizabeth Borjas MD Work Phone: [facility] 11-02-2022 10:54-0500 SaO2% (BldA) [Mass fraction] 97 % Elizabeth Borjas MD Work Phone: [facility] 11-02-2022 10:54-0500 Systolic blood pressure 178 mm[Hg] Elizabeth Borjas MD Work Phone: [facility] 10-27-2022 09:07-0500 Body height 180.3 cm SHELLIE Esposito MD Work Phone: [facility] 10-27-2022 09:07-0500 Body temperature 97.7 [degF] SHELLIE Esposito MD Work Phone: [facility] 10-27-2022 09:07-0500 Body weight 92.08 kg SHELLIE Esposito MD Work Phone: [facility] 10-27-2022 09:07-0500 Diastolic blood pressure 103 mm[Hg] SHELLIE Esposito MD Work Phone: [facility] 10-27-2022 09:07-0500 Heart rate 60 /min SHELLIE Esposito MD Work Phone: [facility] 10-27-2022 09:07-0500 SaO2% (BldA) [Mass fraction] 98 % SHELLIE Esposito MD Work Phone: [facility] 10-27-2022 09:07-0500 Systolic blood pressure 174 mm[Hg] SHELLIE Esposito MD Work Phone: [facility] 06-10-2022 08:20-0400 Blood Pressure Location Shelly Velez [facility] 06-10-2022 08:20-0400 Diastolic blood pressure 89 mm[Hg] Shelly Kims [facility] 06-10-2022 08:20-0400 Heart rate 88 /min Shelly Kims [facility] 06-10-2022 08:20-0400 Systolic blood pressure 140 mm[Hg] Shelly Kims [facility] Encounters Encounter Date Encounter Type Care Provider Facility Start: 07-05-2024 ambulatory Norma Craig Facility:[facility] Start: 05-21-2024 End: 05-21-2024 ambulatory RAS STARR Facility:[facility] Start: 05-17-2024 End: 05-17-2024 ambulatory ENOCH FORBES Not Available Start: 05-17-2024 End: 05-17-2024 Preprocedural examination done Karolina Catalan MD Work Phone: [facility] Start: 05-17-2024 End: 05-17-2024 Telemedicine consultation with patient Karolina Catalan MD Work Phone: Pulmonology Start: 05-17-2024 End: 05-17-2024 ambulatory Karolina Catalan MD Work Phone: Pulmonology Comment on above: Lung nodule (Primary Dx); Preoperative examination Start: 05-16-2024 End: 05-16-2024 ambulatory NATY BURTON Facility:[facility] Start: 05-16-2024 End: 05-16-2024 Nursing evaluation of patient and report Ma Nurse Hilario Tafoya Work Phone: Hematology/Oncology Comment on above: Adenopathy Start: 05-14-2024 End: 05-14-2024 Admission to [facility] Pre Anesthesia Start: 05-14-2024 End: 05-14-2024 ambulatory NATY BURTON Facility:[facility] Start: 05-14-2024 Encounter for other preprocedural examination NATY BURTON [facility] Start: 05-14-2024 End: 05-14-2024 [facility] Start: 05-14-2024 End: 05-14-2024 Anesthesia consultation Negrita SINGH Work Phone: Pre Anesthesia Comment on above: Pre-op evaluation (P rimary Dx); 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); Former smoker; Hypothyroidism, unspecified type; Adrenal insufficiency (HCC); Primary hypertension; Hyperlipidemia, unspecified hyperlipidemia type; Stage 3 chronic kidney disease, unspecified whether stage 3a or 3b CKD (HCC) Lab results Start: 05-14-2024 E-mail encounter fro m caregiver Negrita SINGH Work Phone: Pre Anesthesia Start: 05-13-2024 ambulatory Ras rao MD Work Phone: Pulmonology Comment on above: Bronchoscopy Schedul ing Start: 05-10-2024 End: 05-10-2024 ambulatory NATY BURTON Facility:[facility] Start: 05-10-2024 End: 05-10-2024 Office consultation new/estab patient 60 min Tom Medina MD Work Phone: Endocrinology Comment on above: Acquired hypothyroid ism (Primary Dx); Adrenal insufficiency (HCC) Start: 05-08-2024 End: 05-27-2024 Telephone encounter Elizabeth Borjas MD Work Phone: [facility] Comment on above: Future Appointment Start: 05-08-2024 End: 05-08-2024 Patient encounter procedure Elizabeth Borjas MD Work Phone: Hematology/Oncology Start: 05-08-2024 End: 05-08-2024 ambulatory Elizabeth Borjas MD Work Phone: Hematology/Oncology Comment on above: Oropharnyx cancer (H CC) (Primary Dx) Start: 05-03-2024 End: 05-03-2024 ambulatory NATY BURTON Facility:[facility] Start: 04-19-2024 End: 04-19-2024 ambulatory ENOCH CHARLESMIS Not Available Start: 04-12-2024 End: 04-12-2024 Patient encounter procedure MD Naty Burton Work Phone: [facility] Work Phone: Start: 04-12-2024 End: 04-12-2024 ambulatory MD Naty Burton Work Phone: [facility] Work Phone: Start: 03-28-2024 ambulatory Elizabeth Borjas MD Work Phone: Hematology/Oncology Comment on above: [employer] Start: 03-26-2024 End: 03-26-2024 Office outpatient visit 25 minutes Vanesa Gomez PA-C Work Phone: Hematology/Oncology Comment on above: Oropharnyx cancer (H CC) (Primary Dx); Malaise and fatigue; Thunderclap headache Start: 03-26-2024 End: 03-26-2024 ambulatory Chair 16 Wes Work Phone: Hematology/Oncology Comment on above: Oropharnyx cancer (H CC) (Primary Dx); Malaise and fatigue; Thunderclap headache Start: 03-15-2024 End: 03-15-2024 ambulatory ENOCH CHARLESMIS Not Available Start: 03-12-2024 Telephone encounter Vanesa trevino PA-C Work Phone: Hematology/Oncology Comment on above: Lab Orders Start: 02-16-2024 End: 02-16-2024 ambulatory ENOCH So TIMMIS Not Available Start: 02-13-2024 End: 02-13-2024 ambulatory Chair 5 Wes Work Phone: Hematology/Oncology Comment on above: Oropharnyx cancer (H CC) (Primary Dx); 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) Start: 01-02-2024 End: 01-02-2024 Patient encounter procedure Celestina Hallman ROSANGELA Work Phone: [facility] Start: 01-02-2024 End: 01-02-2024 ambulatory Chair 5 Wes Work Phone: Hematology/Oncology Comment on above: 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); 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) Start: 12-15-2023 End: 12-15-2023 ambulatory ENOCH So TIMMIS Not Available Start: 12-13-2023 Telephone encounter Chiqui Modi RN Work Phone: Hematology/Oncology Comment on above: Care Coordination (T hyroid medication) Start: 12-12-2023 End: 12-12-2023 Patient encounter procedure Elizabeth Borjas MD Work Phone: [facility] Start: 12-12-2023 End: 12-12-2023 ambulatory Elizabeth Borjas MD Work Phone: Hematology/Oncology Comment on above: Oropharnyx cancer (H CC) (Primary Dx) Start: 12-08-2023 End: 12-08-2023 ambulatory NATY BURTON Facility:[facility] Start: 11-17-2023 Bamboo flowsheet [facility] Start: 11-17-2023 Bamboo flowscosme juarez MD [facility] Start: 11-17-2023 End: 11-17-2023 Office outpatient visit 15 minutes Enoch Forbes MD [facility] Comment on above: 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); 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) Start: 11-17-2023 End: 11-17-2023 ambulatory ENOCH H TIMMIS Not Available Start: 11-15-2023 Telephone encounter Elizabeth galicia MD Work Phone: Hematology/Oncology Comment on above: Orders Start: 11-14-2023 End: 11-14-2023 Patient encounter procedure Elizabeth Borjas MD Work Phone: [facility] Start: 11-14-2023 End: 11-14-2023 ambulatory Elizabeth Borjas MD Work Phone: Hematology/Oncology Comment on above: Oropharnyx cancer (H CC) (Primary Dx) Start: 10-20-2023 End: 10-20-2023 ambulatory NATY Dowling [facility] Facility:[facility] Start: 10-13-2023 End: 10-13-2023 ambulatory ENOCH FORBES Not Available Start: 09-26-2023 End: 09-27-2023 Nursing evaluation of patient and report Chiqui Modi RN Work Phone: Hematology/Oncology Comment on above: Oropharnyx cancer (H CC) (Primary Dx) Start: 09-26-2023 End: 09-26-2023 Patient encounter procedure Elizabeth Borjas MD Work Phone: [facility] Start: 09-26-2023 End: 09-27-2023 ambulatory Elizabeth Borjas MD Work Phone: Hematology/Oncology Comment on above: Oropharnyx cancer (H CC) (Primary Dx) Start: 09-22-2023 End: 09-22-2023 ambulatory NATY Dowling Edgar Facility:[facility] Start: 09-21-2023 Telephone encounter Elizabeth galicia MD Work Phone: Hematology/Oncology Comment on above: Lab Orders Start: 09-21-2023 End: 09-22-2023 ambulatory Norma Craig Facility:[facility] Start: 09-13-2023 Telephone encounter Poly Mcfadden Hematology/Oncology Comment on above: Appointment Start: 09-11-2023 ambulatory Elizabeth Borjas MD Work Phone: Hematology/Oncology Comment on above: Caitlin Elmore Start: 09-06-2023 End: 09-06-2023 ambulatory Elizabeth Borjas MD Work Phone: Hematology/Oncology Comment on above: Oropharnyx cancer (H CC) (Primary Dx); Neoplasm of lung Start: 09-06-2023 End: 09-06-2023 Patient encounter procedure Elizabeth Borjas MD Work Phone: [facility] Start: 08-30-2023 ambulatory NILA ALEXANDER Facility:[facility] Start: 08-30-2023 End: 08-30-2023 Subsequent hospital visit by physician Nila Alexander MD Work Phone: Admitting Comment on above: Bronchiolar disease [J98.09] Start: 08-25-2023 End: 08-25-2023 ambulatory ENOCH H TIMMIS Not Available Start: 08-24-2023 Encounter for other preprocedural examination NATY HOY [facility] Start: 08-24-2023 End: 08-25-2023 Patient encounter procedure Carissa Reyes MD Work Phone: Pulmonary Medicine Comment on above: Pulmonary nodule (Pr imary Dx); Oropharnyx cancer (HCC); 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); Preoperative examination Start: 08-24-2023 End: 08-25-2023 ambulatory CARISSA REYES Facility:[facility] Start: 08-24-2023 End: 08-25-2023 Preprocedural examination done Carissa Reyes MD Work Phone: [facility] Start: 08-24-2023 End: 08-24-2023 Subsequent hospital visit by physician Yamilet Main Ca Work Phone: Radiology Comment on above: Pulmonary nodule [R9 1.1] Start: 08-14-2023 Telephone encounter Elizabeth galicia MD Work Phone: [facility] Comment on above: Bronchoscopy Schedul ing Start: 08-03-2023 ambulatory Nila Alexander MD Work Phone: Pulmonary Medicine Comment on above: Bronchoscopy Schedul ing (Initial Bronch Request ) Nodules in my lung Start: 08-03-2023 Preprocedural examin ation done Nila Alexander MD Work Phone: [facility] Work Phone: Start: 07-25-2023 End: 07-25-2023 Patient encounter procedure Elizabeth Borjas MD Work Phone: [facility] Start: 07-25-2023 End: 07-25-2023 ambulatory Elizabeth Borjas MD Work Phone: Hematology/Oncology Comment on above: Oropharnyx cancer (H CC) (Primary Dx) Start: 07-18-2023 End: 07-18-2023 ambulatory NATY BURTON Facility:[facility] Start: 07-07-2023 End: 07-08-2023 ambulatory Norma Craig Facility:[facility] Start: 07-07-2023 End: 07-07-2023 Patient encounter procedure Norma Craig [facility] Start: 06-28-2023 End: 06-29-2023 ambulatory Norma Craig Facility:[id number] Start: 06-08-2023 End: 06-09-2023 ambulatory Norma Craig Facility:[facility] Start: 06-08-2023 End: 06-08-2023 Patient encounter procedure Norma Craig [facility] Start: 05-16-2023 End: 05-16-2023 Patient encounter procedure MD Naty Burton Work Phone: [facility] Work Phone: Start: 05-16-2023 End: 05-16-2023 ambulatory MD Naty Burton Work Phone: [facility] Work Phone: Start: 04-18-2023 End: 04-18-2023 ambulatory Elizabeth Borjas MD Work Phone: Hematology/Oncology Comment on above: Oropharnyx cancer (H CC) (Primary Dx) Start: 04-18-2023 End: 04-18-2023 Patient encounter procedure Elizabeth Borjas MD Work Phone: [facility] Comment on above: Encounter for observ ation for other suspected diseases and conditions ruled out (Primary Dx) Start: 03-17-2023 End: 03-18-2023 ambulatory Norma Craig Facility: [facility] Start: 03-02-2023 End: 03-02-2023 Patient encounter procedure Nino Esposito MD Work Phone: Radiation Oncology Comment on above: Oropharnyx cancer (H CC) (Primary Dx) Start: 01-27-2023 End: 01-27-2023 Patient encounter procedure Nino Esposito MD Work Phone: Radiation Oncology Comment on above: Oropharnyx cancer (H CC) (Primary Dx) Start: 01-20-2023 Telephone encounter Vanesa trevino PA-C Work Phone: Hematology/Oncology Comment on above: Results Start: 01-20-2023 End: 01-20-2023 ambulatory Vanesa Gomez PA-C Work Phone: Hematology/Oncology Comment on above: Oropharnyx cancer (H CC) (Primary Dx) Start: 01-20-2023 End: 01-20-2023 Patient encounter procedure Vanesa SINGH-C Work Phone: [facility] Start: 01-13-2023 End: 01-13-2023 ambulatory Vanesa Gomez PA-C Work Phone: Hematology/Oncology Comment on above: 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) 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); Oropharnyx cancer (HCC) Start: 01-13-2023 End: 01-13-2023 Patient encounter procedure Vanesa Gomez PA-C Work Phone: [facility] Start: 01-12-2023 End: 01-12-2023 Patient encounter procedure Nino Esposito MD Work Phone: Radiation Oncology Comment on above: Oropharnyx cancer (H CC) (Primary Dx) Start: 01-11-2023 End: 01-11-2023 ambulatory Elizabeth Borjas MD Work Phone: Hematology/Oncology Comment on above: 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) 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); Oropharnyx cancer (HCC) Start: 01-11-2023 End: 01-11-2023 Patient encounter procedure Elizabeth Borjas MD Work Phone: [facility] Start: 01-07-2023 Refill Elizabeth Borjas MD Work Phone: Hematology/Oncology Comment on above: Refill Request Start: 01-06-2023 End: 01-06-[address] Work Phone: [facility] Start: 01-06-2023 End: 01-06-2023 Nutrition therapy Yadi Simms RD Work Phone: Nutrition Therapy Comment on above: Nutrition Counseling Start: 01-06-2023 Patient encounter procedure Nino Esposito MD Work Phone: [facility] Start: 01-06-2023 Radiation Oncology Note Nino Esposito MD Work Phone: Radiation Oncology Comment on above: Completion Note Start: 01-02-2023 End: 01-02-2023 Patient encounter procedure Nino Esposito MD Work Phone: Radiation Oncology Comment on above: Oropharnyx cancer (H CC) (Primary Dx); Cancer related pain Start: 01-02-2023 Radiation Oncology Note Nino Esposito MD Work Phone: Radiation Oncology Comment on above: Treatment Planning Start: 12-30-2022 End: 12-30-2022 ambulatory Chair 21 [facility] Work Phone: Hematology/Oncology Comment on above: 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); Oropharnyx cancer (HCC) Start: 12-30-2022 Telephone encounter Elizabeth galicia MD Work Phone: Radiation Oncology Comment on above: Fatigue Start: 12-29-2022 Telephone encounter Chiqui Modi RN Work Phone: Hematology/Oncology Comment on above: Care Coordination (T oxicity check) Start: 12-26-2022 End: 12-26-[address] Work Phone: [facility] Start: 12-26-2022 End: 12-26-2022 Nutrition therapy Yadi Simms RD Work Phone: Nutrition Therapy Comment on above: Nutrition Counseling Start: 12-26-2022 End: 12-26-2022 Patient encounter procedure Nino Esposito MD Work Phone: Radiation Oncology Comment on above: Oropharnyx cancer (H CC) (Primary Dx) Start: 12-26-2022 Radiation Oncology Note Nino Esposito MD Work Phone: Radiation Oncology Comment on above: Simulation Note Treatment Planning Start: 12-21-2022 End: 12-21-2022 ambulatory Elizabeth Borjas MD Work Phone: Hematology/Oncology Comment on above: 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); Oropharnyx cancer (HCC) Start: 12-21-2022 End: 12-21-2022 Patient encounter procedure Elizabeth Borjas MD Work Phone: [facility] Start: 12-20-2022 Telephone encounter Chiqui Modi RN Work Phone: Hematology/Oncology Comment on above: Care Coordination (T oxicity check) Start: 12-19-2022 End: 12-19-[address] Work Phone: [facility] Comment on above: 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); Oropharnyx cancer (HCC) Start: 12-19-2022 End: 12-19-2022 Nutrition therapy Yadi Simms RD Work Phone: Nutrition Therapy Comment on above: Nutrition Assessment Start: 12-15-2022 End: 12-15-2022 Orders Only Nino Esposito MD Work Phone: Radiation Oncology Comment on above: 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); Oropharnyx cancer (HCC) Start: 12-14-2022 End: 12-14-2022 Nutrition therapy Yadi Simms RD Work Phone: Nutrition Therapy Comment on above: Nutrition Counseling Start: 12-14-2022 End: 12-14-2022 ambulatory Vanesa Gomez PA-C Work Phone: Hematology/Oncology Comment on above: Oropharnyx cancer (H CC) (Primary Dx); Esophagitis; Elevated prostate specific antigen (PSA) Oropharnyx cancer (H CC) (Primary Dx) Start: 12-14-2022 End: 12-14-2022 Patient encounter procedure Vanesa SINGH-C Work Phone: [facility] Start: 12-12-2022 End: 12-12-[address] Work Phone: [facility] Start: 12-12-2022 End: 12-12-2022 Nutrition therapy Yadi Simms RD Work Phone: Nutrition Therapy Comment on above: Nutrition Counseling Start: 12-12-2022 End: 12-12-2022 Patient encounter procedure Nino Esposito MD Work Phone: Radiation Oncology Comment on above: Oropharnyx cancer (H CC) (Primary Dx) Start: 12-07-2022 End: 12-07-2022 ambulatory Vanesa Gomez PA-C Work Phone: Hematology/Oncology Comment on above: Oropharnyx cancer (H CC) (Primary Dx); Esophagitis Oropharnyx cancer (H CC) (Primary Dx) Start: 12-07-2022 End: 12-07-2022 Patient encounter procedure Vanesa Gomez PA-C Work Phone: [facility] Start: 12-06-2022 End: 12-06-[address] Work Phone: [facility] Start: 12-06-2022 End: 12-06-2022 Nutrition therapy Yadi Simms RD Work Phone: Nutrition Therapy Comment on above: Nutrition Counseling Start: 12-06-2022 Telephone encounter Chiqui Modi RN Work Phone: Hematology/Oncology Comment on above: Care Coordination (T oxicity check) Start: 12-05-2022 End: 12-05-[address] Work Phone: [facility] Start: 12-05-2022 End: 12-05-2022 Nutrition therapy Yadi Simms RD Work Phone: Nutrition Therapy Comment on above: Nutrition Assessment Start: 12-05-2022 End: 12-05-2022 Patient encounter procedure Nino Esposito MD Work Phone: Radiation Oncology Comment on above: Oropharnyx cancer (H CC) (Primary Dx) Start: 11-29-2022 End: 11-29-[address] Work Phone: [facility] Start: 11-29-2022 End: 11-29-2022 Nutrition therapy Yadi Simms RD Work Phone: Nutrition Therapy Comment on above: Nutrition Counseling Start: 11-29-2022 End: 11-29-2022 ambulatory Chair Landno Harvey Work Phone: Hematology/Oncology Comment on above: Oropharnyx cancer (H CC) (Primary Dx) Start: 11-28-2022 End: 11-28-2022 Patient encounter procedure Nino Esposito MD Work Phone: Radiation Oncology Comment on above: Oropharnyx cancer (H CC) (Primary Dx) Start: 11-24-2022 Telephone encounter Chiqui Modi RN Work Phone: Hematology/Oncology Comment on above: Care Coordination (C 1D1 treatment follow up call) Start: 11-22-2022 Telephone encounter Financial Navigator Hilario Work Phone: Hematology/Oncology Comment on above: Benefits Investigati on Start: 11-21-2022 End: 11-21-2022 ambulatory Vanesa Gomez PA-C Work Phone: Hematology/Oncology Comment on above: Oropharnyx cancer (H CC) (Primary Dx) Start: 11-21-2022 End: 11-21-[address] Work Phone: [facility] Start: 11-21-2022 End: 11-21-2022 Nutrition therapy Yadi Simms RD Work Phone: Nutrition Therapy Comment on above: Nutrition Counseling Start: 11-21-2022 End: 11-21-2022 Patient encounter procedure Vanesa Gomez PA-C Work Phone: [facility] Start: 11-15-2022 Patient encounter procedure [facility] Provider [facility] Department Start: 11-15-2022 Telephone encounter Nino Esposito MD Work Phone: Radiation Oncology Comment on above: Patient Update Care Coordination (C hange in treatment date) Lab Orders Start: 11-14-2022 End: 11-14-2022 Patient encounter procedure Nino Esposito MD Work Phone: Radiation Oncology Comment on above: Oropharnyx cancer (H CC) (Primary Dx) Start: 11-14-2022 Radiation Oncology Note Nino Esposito MD Work Phone: Radiation Oncology Comment on above: Simulation Note Treatment Planning Start: 11-04-2022 End: 11-04-[address] Work Phone: [facility] Start: 11-04-2022 End: 11-04-2022 Nutrition therapy Yadi Simms RD Work Phone: Nutrition Therapy Comment on above: Nutrition Assessment Start: 11-03-2022 Telephone encounter Nancie ventura [facility] Work Phone: [facility] HB-3 Comment on above: Medication Authoriza tion (Ondansetron ) Appointment Start: 11-03-2022 End: 11-03-2022 Patient encounter procedure Nino Esposito MD Work Phone: Radiation Oncology Comment on above: Oropharnyx cancer (H CC) (Primary Dx) Start: 11-03-2022 End: 11-03-2022 Nursing evaluation of patient and report Chiqui Modi RN Work Phone: Hematology/Oncology Comment on above: Oropharnyx cancer (H CC) (Primary Dx) Start: 11-02-2022 End: 11-02-2022 ambulatory Elizabeth Borjas MD Work Phone: Hematology/Oncology Comment on above: Oropharnyx cancer (H CC); 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) Start: 11-02-2022 End: 11-02-2022 Patient encounter procedure Elizabeth Borjas MD Work Phone: [place] Start: 11-01-2022 Patient encounter procedure [facility] Provider [facility] Department Start: 10-31-2022 Telephone encounter Nino Esposito MD Work Phone: Radiation Oncology Comment on above: Patient Update Start: 10-27-2022 ambulatory Janene Miller LPN Radia tion Oncology Comment on above: Patient Education Start: 10-27-2022 End: 10-27-2022 Patient encounter procedure Nino Esposito MD Work Phone: Radiation Oncology Comment on above: Oropharnyx cancer (H CC) (Primary Dx) Start: 10-27-2022 Telephone encounter Nino Esposito MD Work Phone: Cancer [facility] Comment on above: Appointment Start: 10-18-2022 End: 10-18-[address] ENOCH FORBES Facility:[facility] Start: 10-16-2022 Encounter for preprocedural cardiovascular examination DR ENOCH FORBES [facility] Start: 10-16-2022 Encounter for preprocedural laboratory examination DR ENOCH FORBES [facility] Start: 10-13-2022 End: 10-14-[address] ENOCH FORBES Facility:[facility] Start: 10-13-2022 End: 10-14-2022 Encounter for preprocedural laboratory examination DR ENOCH FORBES Facility:[facility] Start: 09-19-2022 End: 09-19-[address] NATY BURTON . Facility:[facility] Start: 09-09-2022 End: 09-10-[address] NATY BURTON . Facility:[facility] Start: 08-10-2022 Encounter for genera l adult medical examination without abnormal findings DR NATY BURTON . [facility] Start: 08-06-2022 End: 08-07-[address] NATY BURTON . Facility:[facility] Start: 08-06-2022 End: 08-07-2022 Encounter for general adult medical examination without abnormal findings DR NATY BURTON . Facility:[facility] Start: 06-10-2022 End: 06-10-2022 Patient encounter procedure Shelly Velez [facility] Start: 04-20-2022 End: 04-21-[address] NICOLA Longoria Facility:[facility] Procedures Date Procedure Procedure Detail Performing Clinician Start: 04-12-2024 MRI of head MD Naty Burton Work Phone: Start: 03-26-2024 Adrenocorticotropic hormone acth Vanesa Gomez PA-C Work Phone: Start: 02-13-2024 Blood count complete auto&auto difrntl wbc Celestina Hallman SUPERVISOR KENNEL.SIGNAL ENGINEER Work Phone: Start: 08-30-2023 Brnchsc incl fluor gdnce dx w/cell washg spx [facility] Provider Start: 08-24-2023 Ct thorax w/o contrast material Nila Alexander MD Work Phone: Start: 11-21-2022 Blood count complete auto&auto difrntl wbc Vanesa Gomez PA-C Work Phone: Start: 09-16-2021 Transrectal biopsy of prostate using ultrasound guidance Shelly Da Silvamons Colonoscopy Shelly Avinashfrances s Tonsillectomy Albertmarietta Oleg duong Plan of Treatment Date Care Activity Detail Author Start: 12-08-2027 PROSTATE CANCER SCREENING DISCUSSION PROSTATE CANCER SCREENING DISCUSSION [facility] Start: 12-08-2027 Prostate specific antigen measurement Prostate Cancer Screening Discussion [facility] Start: 05-08-2027 [facility] Start: 03-26-2027 Diabetes Screening Diabetes Screen[facility] Start: 02-12-2027 Diabetes Screening Diabetes Screenin g [facility] Start: 01-01-2027 Diabetes Screening Diabetes Screenin g [facility] Start: 12-11-2026 Diabetes Screening Diabetes Screenin g [facility] Start: 11-14-2026 Diabetes Screening Diabetes Screenin g [facility] Start: 09-26-2026 Diabetes Screening Diabetes Screenin g [facility] Start: 07-25-2026 Diabetes Screening Diabetes Screenin g [facility] Start: 04-14-2026 DIABETES SCREEN DIABETES SCREEN [facility] Start: 01-20-2026 DIABETES SCREEN DIABETES SCREEN [facility] Start: 01-13-2026 DIABETES SCREEN DIABETES SCREEN [facility] Start: 01-11-2026 DIABETES SCREEN DIABETES SCREEN [facility] Start: 01-04-2026 DIABETES SCREEN DIABETES SCREEN [facility] Start: 12-28-2025 DIABETES SCREEN DIABETES SCREEN [facility] Start: 12-14-2025 DIABETES SCREEN DIABETES SCREEN [facility] Start: 12-07-2025 DIABETES SCREEN DIABETES SCREEN [facility] Start: 11-29-2025 DIABETES SCREEN DIABETES SCREEN [facility] Start: 11-21-2025 DIABETES SCREEN DIABETES SCREEN [facility] Start: 05-08-2025 Complete blood count Hemoglobin/Hilario tocrit [facility] Start: 05-08-2025 Creatinine measurement Serum Creatin ine [facility] Start: 05-03-2025 Screening for malign ant neoplasm of lung Lung Cancer Screening [facility] Start: 12-07-2024 Screening for malign ant neoplasm of lung Lung Cancer Screening [facility] Start: 08-24-2024 Influenza vaccination Lung Cancer [facility] Start: 08-02-2024 End: 08-02-2024 Patient encounter procedure 08/02/2024 2:40 PM EDT Office Visit Endocrinology [address] [place] [address] Tom Medina MD [address] [facility] [address] [place] [address] Return in about 1 month (around 06/10/2024). Endocrinology Comment on above: Return in about 1 mo nth (around 06/10/2024). Start: 07-18-2024 Influenza vaccination Lung Cancer [facility] Start: 06-20-2024 End: 06-20-2024 ambulatory Hematology/Oncology Comment on above: 6 week lab ANNY chemo tx Keytruda Start: 06-20-2024 End: 06-20-2024 Patient encounter procedure 06/20/2024 1:30 PM EDT Office Visit [facility] [address] [place] [address] [place] [address] 6 [facility] Comment on above: 6 week lab ANNY chemo tx Keytruda Start: 06-09-2024 Influenza vaccination [facility] Start: 06-07-2024 End: 06-07-2024 Patient encounter procedure 06/07/2024 1:40 PM EDT Office Visit Endocrinology [address] [place] [address] Tom Medina MD [address] [facility] [address] [place] [address] New Referral for Adrenal Insufficiency Endocrinology Comment on above: New Referral for Adr enal Insufficiency Start: 05-21-2024 End: 05-21-2024 Admission to same day surgery center 05/21/2024 10:30 AM EDT - 05/21/2024 12:00 PM EDT Surgery [facility] - ENDO [address] [place] [address] Ras Starr MD [address] [place] [address] BRONCHOSCOPY,RIGID/FLEX IBLE W/ FLUORO,W/ENDOBRONCHIAL ULTRASOUND (EBUS) GUIDED TRANSTRACHEAL/ TRANSBRONCHIAL ASPIRATION/BIOPSY,1 OR 2 MEDIASTINAL AND/OR HILAR LYMPH NODE STATIONS/STRUCTURES [facility] - ENDO Comment on above: BRONCHOSCOPY,RIGID/F LEXIBLE W/ FLUORO,W/ENDOBRONCHIAL ULTRASOUND (EBUS) GUIDED TRANSTRACHEAL/ TRANSBRONCHIAL ASPIRATION/BIOPSY,1 OR 2 MEDIASTINAL AND/OR HILAR LYMPH NODE STATIONS/STRUCTURES Start: 05-21-2024 End: 05-21-2024 [facility] ebus guided sampl 1/2 node station/strux BRONCHOSCOPY,RIGID/FLEX IBLE W/ FLUORO,W/ENDOBRONCHIAL ULTRASOUND (EBUS) GUIDED TRANSTRACHEAL/ TRANSBRONCHIAL ASPIRATION/BIOPSY,1 OR 2 MEDIASTINAL AND/OR HILAR LYMPH NODE STATIONS/STRUCTURES Adenopathy 05/21/2024 10:30 AM EDT [facility] Start: 05-21-2024 Subsequent hospital visit by physician [facility] - ENDO Comment on above: Adenopathy [R59.9] Start: 05-17-2024 End: 05-17-2024 ambulatory 05/17/2024 9:30 AM EDT [facility] [address] [place] [place] [address] [place] [address] [place] [address] H/P BRONCH 05/21 Pulmonology Comment on above: H/P BRONCH 05/21 Start: 05-17-2024 End: 05-17-2024 Patient encounter procedure 05/17/2024 8:30 AM EDT Office Visit [facility] [address] [place] [address] [place] [address] lab [facility] Comment on above: lab Start: 05-17-2024 End: 05-17-2024 ambulatory 05/17/2024 8:15 AM EDT Results Only [facility] [address] [place] [address] [facility] Start: 05-16-2024 End: 05-16-2024 Nursing evaluation of patient and report 05/16/2024 3:00 PM EDT Nurse Visit Hematology/Oncology [address] [place] [address] Mor Tafoya Nurse Hilario [address] [place] [address] ekg Hematology/Oncology Comment on above: ekg Start: 05-16-2024 End: 05-16-2024 Patient encounter procedure 05/16/2024 2:45 PM EDT Office Visit [facility] [address] [place] [address] lab [facility] Comment on above: lab Start: 05-11-2024 End: 06-10-2024 BIOAVAILABLE TESTOSTERONE, ADULT MALE BIOAVAILABLE TESTOSTERONE, ADULT MALE Lab Routine Adrenal insufficiency (HCC) Acquired hypothyroidism Expected: 05/11/2024, Expires: 06/10/2024 [facility] Work Phone: Comment on above: Expected: 05/11/2024 , Expires: 06/10/2024 Start: 05-11-2024 End: 06-10-2024 Cortisol [Mass/volume] in Serum or Plasma CORTISOL, SERUM Lab Routine Adrenal insufficiency (HCC) Acquired hypothyroidism Expected: 05/11/2024, Expires: 06/10/2024 [facility] Comment on above: Expected: 05/11/2024 , Expires: 06/10/2024 Start: 05-11-2024 End: 06-10-2024 Follitropin [Units/volume] in Serum or Plasma FOLLICLE STIMULATING HORMONE Lab Routine Adrenal insufficiency (HCC) Acquired hypothyroidism Expected: 05/11/2024, Expires: 06/10/2024 [facility] Comment on above: Expected: 05/11/2024 , Expires: 06/10/2024 Start: 05-11-2024 End: 06-10-2024 INSULIN LIK GR FAC I INSULIN LIK GR FAC I Lab Routine Adrenal insufficiency (HCC) Acquired hypothyroidism Expected: 05/11/2024, Expires: 06/10/2024 [facility] Comment on above: Expected: 05/11/2024 , Expires: 06/10/2024 Start: 05-11-2024 End: 06-10-2024 Lutropin [Units/volume] in Serum or Plasma LUTEINIZING HORMONE Lab Routine Adrenal insufficiency (HCC) Acquired hypothyroidism Expected: 05/11/2024, Expires: 06/10/2024 [facility] Comment on above: Expected: 05/11/2024 , Expires: 06/10/2024 Start: 05-11-2024 End: 06-10-2024 Prolactin [Mass/volume] in Serum or Plasma PROLACTIN Lab Routine Adrenal insufficiency (HCC) Acquired hypothyroidism Expected: 05/11/2024, Expires: 06/10/2024 [facility] Comment on above: Expected: 05/11/2024 , Expires: 06/10/2024 Start: 05-11-2024 End: 06-10-2024 Thyroxine (T4) free [Mass/volume] in Serum or Plasma T4 FREE/FREE THYROXINE Lab Routine Adrenal insufficiency (HCC) Acquired hypothyroidism Expected: 05/11/2024, Expires: 06/10/2024 [facility] Comment on above: Expected: 05/11/2024 , Expires: 06/10/2024 Start: 05-10-2024 End: 08-09-2024 THYROID PEROXIDASE ANTIBODY THYROID PEROXIDASE ANTIBODY Lab Routine Acquired hypothyroidism Expected: 05/10/2024, Expires: 08/09/2024 [facility] Comment on above: Expected: 05/10/2024 , Expires: 08/09/2024 Start: 05-10-2024 End: 05-10-2024 Patient encounter procedure 05/10/2024 10:00 AM EDT Office Visit Endocrinology [address] [place] [address] Tom Medina MD [address] [facility] [address] [place], [place] [id number] New Referral for Adrenal Insufficiency Endocrinology Comment on above: New Referral for Adr enal Insufficiency Start: 05-08-2024 End: 05-08-2024 Follow-up encounter Hematology/Oncology Comment on above: 6 week lab follow up and chemotx Keytruda Start: 05-08-2024 End: 05-08-2024 Patient encounter procedure 05/08/2024 1:15 PM EDT Office Visit [facility] [address] [place] [address] 6 week lab follow up and chemotx Keytruda [facility] Comment on above: 6 week lab follow up and chemotx Keytruda Start: 05-07-2024 End: 08-06-2024 CBC W Auto Differential panel - Blood COMPLETE BLOOD COUNT AND DIFFERENTIAL Lab 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 Expected: 05/07/2024 (Approximate), Expires: 08/06/2024 [facility] Comment on above: Expected: 05/07/2024 (Approximate), Expires: 08/06/2024 Start: 05-07-2024 End: 08-06-2024 Comprehensive metabolic 2000 panel - Serum or Plasma COMPREHENSIVE METABOLIC PANEL Lab 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 Expected: 05/07/2024 (Approximate), Expires: 08/06/2024 [facility] Work Phone: Comment on above: Expected: 05/07/2024 (Approximate), Expires: 08/06/2024 Start: 05-07-2024 End: 08-06-2024 Thyrotropin [Units/volume] in Serum or Plasma THYROID STIMULATING HORMONE Lab 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 Expected: 05/07/2024 (Approximate), Expires: 08/06/2024 [facility] Comment on above: Expected: 05/07/2024 (Approximate), Expires: 08/06/2024 Start: 05-03-2024 End: 05-03-2024 Patient encounter procedure 05/03/2024 7:45 AM EDT Appointment Radiology Pet CT [address] [place] [address] CT CAP W IV Radiology Pet CT Comment on above: CT CAP W IV Start: 03-26-2024 End: 06-25-2024 Cortisol [Mass/volume] in Serum or Plasma [facility] Comment on above: Expected: 03/26/2024 , Expires: 06/25/2024 Start: 03-26-2024 End: 03-26-2024 Follow-up encounter Hematology/Oncology Comment on above: 6 week lab follow up and chemotx Keytruda Start: 03-26-2024 End: 03-26-2024 Patient encounter procedure 03/26/2024 1:15 PM EDT Office Visit [facility] [address] [place] [address] [place] [address] 6 week lab follow up and chemotx Keytruda [facility] Comment on above: 6 week lab follow up and chemotx Keytruda Start: 03-12-2024 End: 06-11-2024 CBC W Auto Differential panel - Blood COMPLETE BLOOD COUNT AND DIFFERENTIAL Lab 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 Expected: 03/12/2024, Expires: 06/11/2024 [facility] Comment on above: Expected: 03/12/2024 , Expires: 06/11/2024 Start: 03-12-2024 End: 06-11-2024 Comprehensive metabolic 2000 panel - Serum or Plasma COMPREHENSIVE METABOLIC PANEL Lab 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 Expected: 03/12/2024, Expires: 06/11/2024 [facility] Work Phone: Comment on above: Expected: 03/12/2024 , Expires: 06/11/2024 Start: 03-12-2024 End: 06-11-2024 Thyrotropin [Units/volume] in Serum or Plasma THYROID STIMULATING HORMONE Lab 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 Expected: 03/12/2024, Expires: 06/11/2024 [facility] Comment on above: Expected: 03/12/2024 , Expires: 06/11/2024 Start: 01-19-2024 End: 01-19-2024 Patient encounter procedure 01/19/2024 1:30 PM EDT Office Visit [facility] [address] [place] [id number] Enoch Forbes MD [address] [facility] [address] [place], [place] [id number] [facility] JAV[facility] GALINDOSTEPHIECb Start: 01-02-2024 End: 04-02-2024 CBC W Auto Differential panel - Blood [facility] Work Phone: Comment on above: Expected: 01/02/2024 (Approximate), Expires: 04/02/2024 Expected: 01/02/2024 , Expires: 04/02/2024 Start: 01-02-2024 End: 04-02-2024 Comprehensive metabolic 2000 panel - Serum or Plasma [facility] Work Phone: Comment on above: Expected: 01/02/2024 (Approximate), Expires: 04/02/2024 Expected: 01/02/2024 , Expires: 04/02/2024 Start: 01-02-2024 End: 04-02-2024 Thyrotropin [Units/volume] in Serum or Plasma [facility] Work Phone: Comment on above: Expected: 01/02/2024 (Approximate), Expires: 04/02/2024 Expected: 01/02/2024 , Expires: 04/02/2024 Start: 12-15-2023 End: 12-15-2023 Patient encounter procedure 12/15/2023 2:20 PM EST Office Visit BRAD RODRIGUEZ [address] [facility] [address] [place] [id number] Enoch Forbes MD [address] [facility] [address] [place] [address] BRAD JAVIER GALINDOMEGA Start: 12-05-2023 End: 03-05-2024 CBC W Auto Differential panel - Blood CBC + DIFF Lab Routine Oropharnyx cancer (HCC) Expected: 12/05/2023 (Approximate), Expires: 03/05/2024 [facility] Work Phone: Comment on above: Expected: 12/05/2023 (Approximate), Expires: 03/05/2024 Start: 12-05-2023 End: 03-05-2024 Comprehensive metabolic 2000 panel - Serum or Plasma COMP METABOLIC PANEL Lab Routine Oropharnyx cancer (HCC) Expected: 12/05/2023 (Approximate), Expires: 03/05/2024 [facility] Work Phone: Comment on above: Expected: 12/05/2023 (Approximate), Expires: 03/05/2024 Start: 12-05-2023 End: 12-13-2024 Ct abdomen & pelvis w/contrast material CT ABD/PEL W IVCON Radiology Routine Oropharnyx cancer (HCC) Expected: 12/05/2023 (Approximate), Expires: 12/13/2024 [facility] Work Phone: Comment on above: Expected: 12/05/2023 (Approximate), Expires: 12/13/2024 Start: 12-05-2023 End: 12-13-2024 CT CHEST W IVCON CT CHEST W IVCON Radiology Routine Oropharnyx cancer (HCC) Expected: 12/05/2023 (Approximate), Expires: 12/13/2024 [facility] Work Phone: Comment on above: Expected: 12/05/2023 (Approximate), Expires: 12/13/2024 Start: 12-05-2023 End: 03-05-2024 Thyrotropin [Units/volume] in Serum or Plasma TSH BLD Lab Routine Oropharnyx cancer (HCC) Expected: 12/05/2023 (Approximate), Expires: 03/05/2024 [facility] Work Phone: Comment on above: Expected: 12/05/2023 (Approximate), Expires: 03/05/2024 Start: 11-17-2023 End: 11-17-2023 Patient encounter procedure 11/17/2023 1:30 PM EST Office Visit [facility] [address] [address] [place] [address] Enoch Forbes MD [address] [facility] [address] [place] [address] Arrived [facility] MATEOMEGA Comment on above: Arrived Start: 10-17-2023 End: 01-16-2024 CBC W Auto Differential panel - Blood CBC + DIFF Lab Routine Oropharnyx cancer (HCC) Expected: 10/17/2023 (Approximate), Expires: 01/16/2024 [facility] Work Phone: Comment on above: Expected: 10/17/2023 (Approximate), Expires: 01/16/2024 Start: 10-17-2023 End: 01-16-2024 Comprehensive metabolic 2000 panel - Serum or Plasma COMP METABOLIC PANEL Lab Routine Oropharnyx cancer (HCC) Expected: 10/17/2023 (Approximate), Expires: 01/16/2024 [facility] Work Phone: Comment on above: Expected: 10/17/2023 (Approximate), Expires: 01/16/2024 Start: 10-17-2023 End: 01-16-2024 Thyrotropin [Units/volume] in Serum or Plasma TSH BLD Lab Routine Oropharnyx cancer (HCC) Expected: 10/17/2023 (Approximate), Expires: 01/16/2024 [facility] Work Phone: Comment on above: Expected: 10/17/2023 (Approximate), Expires: 01/16/2024 Start: 10-09-2023 Behavioral Health Screening Behavioral Health Screening [facility] Start: 10-09-2023 Depression Assessment Depression Ass essment [facility] Start: 08-03-2023 End: 09-01-2024 Ct thorax w/o contrast material CT CHEST WO IVCON Radiology Routine Pulmonary nodule Preoperative examination Expected: 08/03/2023, Expires: 09/01/2024 [facility] Work Phone: Comment on above: Expected: 08/03/2023 , Expires: 09/01/2024 Start: 07-19-2023 End: 09-18-2023 CBC W Auto Differential panel - Blood CBC + DIFF Lab Routine Oropharnyx cancer (HCC) Expected: 07/19/2023 (Approximate), Expires: 09/18/2023 [facility] Work Phone: Comment on above: Expected: 07/19/2023 (Approximate), Expires: 09/18/2023 Start: 07-19-2023 End: 09-18-2023 Comprehensive metabolic 2000 panel - Serum or Plasma COMP METABOLIC PANEL Lab Routine Oropharnyx cancer (HCC) Expected: 07/19/2023 (Approximate), Expires: 09/18/2023 [facility] Work Phone: Comment on above: Expected: 07/19/2023 (Approximate), Expires: 09/18/2023 Start: 07-19-2023 End: 05-17-2024 Ct thorax w/o contrast material CT CHEST WO IVCON Radiology Routine Oropharnyx cancer (HCC) Expected: 07/19/2023 (Approximate), Expires: 05/17/2024 [facility] Work Phone: Comment on above: Expected: 07/19/2023 (Approximate), Expires: 05/17/2024 Start: 06-09-2023 Influenza vaccination C [facility] Start: 05-16-2023 MR Prostate WO and W contrast IV [facility] Start: 05-16-2023 MR prostate wo/w con MR prostate wo/ w con [facility] Start: 03-31-2023 End: 05-31-2023 CBC W Auto Differential panel - Blood CBC + DIFF Lab Routine Oropharnyx cancer (HCC) Expected: 03/31/2023 (Approximate), Expires: 05/31/2023 [facility] Work Phone: Comment on above: Expected: 03/31/2023 (Approximate), Expires: 05/31/2023 Start: 03-31-2023 End: 05-31-2023 Comprehensive metabolic 2000 panel - Serum or Plasma COMP METABOLIC PANEL Lab Routine Oropharnyx cancer (HCC) Expected: 03/31/2023 (Approximate), Expires: 05/31/2023 [facility] Work Phone: Comment on above: Expected: 03/31/2023 (Approximate), Expires: 05/31/2023 Start: 03-31-2023 End: 02-19-2024 NM PET/CT SKULL-THIGH SUBSEQUENT NM PET/CT SKULL-THIGH SUBSEQUENT Radiology Routine Oropharnyx cancer (HCC) Expected: 03/31/2023 (Approximate), Expires: 02/19/2024 [facility] Work Phone: Comment on above: Expected: 03/31/2023 (Approximate), Expires: 02/19/2024 Start: 01-13-2023 End: 03-15-2023 Basic metabolic 2000 panel - Serum or Plasma BASIC METABOLIC PNL Lab Routine 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) Expected: 01/13/2023, Expires: 03/15/2023 [facility] Work Phone: Comment on above: Expected: 01/13/2023 , Expires: 03/15/2023 Start: 01-13-2023 End: 03-15-2023 CBC W Auto Differential panel - Blood CBC + DIFF Lab Routine 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) Expected: 01/13/2023, Expires: 03/15/2023 [facility] Work Phone: Comment on above: Expected: 01/13/2023 , Expires: 03/15/2023 Start: 01-13-2023 End: 03-15-2023 Comprehensive metabolic 2000 panel - Serum or Plasma COMP METABOLIC PANEL Lab Routine 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) Expected: 01/13/2023, Expires: 03/15/2023 [facility] Work Phone: Comment on above: Expected: 01/13/2023 , Expires: 03/15/2023 Start: 01-13-2023 End: 03-15-2023 Magnesium [Mass/volume] in Serum or Plasma MAGNESIUM BLD Lab Routine 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) Expected: 01/13/2023, Expires: 03/15/2023 [facility] Work Phone: Comment on above: Expected: 01/13/2023 , Expires: 03/15/2023 Start: 12-28-2022 End: 02-27-2023 CBC W Auto Differential panel - Blood CBC + DIFF Lab Routine Oropharnyx cancer (HCC) Expected: 12/28/2022 (Approximate), Expires: 02/27/2023 [facility] Work Phone: Comment on above: Expected: 12/28/2022 (Approximate), Expires: 02/27/2023 Start: 12-28-2022 End: 02-27-2023 Comprehensive metabolic 2000 panel - Serum or Plasma COMP METABOLIC PANEL Lab Routine Oropharnyx cancer (HCC) Expected: 12/28/2022 (Approximate), Expires: 02/27/2023 [facility] Work Phone: Comment on above: Expected: 12/28/2022 (Approximate), Expires: 02/27/2023 Start: 12-28-2022 End: 02-27-2023 Magnesium [Mass/volume] in Serum or Plasma MAGNESIUM BLD Lab Routine Oropharnyx cancer (HCC) Expected: 12/28/2022 (Approximate), Expires: 02/27/2023 [facility] Work Phone: Comment on above: Expected: 12/28/2022 (Approximate), Expires: 02/27/2023 Start: 12-14-2022 End: 02-13-2023 CBC W Auto Differential panel - Blood CBC + DIFF Lab Routine Oropharnyx cancer (HCC) Esophagitis Expected: 12/14/2022, Expires: 02/13/2023 [facility] Work Phone: Comment on above: Expected: 12/14/2022 , Expires: 02/13/2023 Start: 12-14-2022 End: 02-13-2023 Comprehensive metabolic 2000 panel - Serum or Plasma COMP METABOLIC PANEL Lab Routine Oropharnyx cancer (HCC) Esophagitis Expected: 12/14/2022, Expires: 02/13/2023 [facility] Work Phone: Comment on above: Expected: 12/14/2022 , Expires: 02/13/2023 Start: 12-14-2022 End: 02-13-2023 Magnesium [Mass/volume] in Serum or Plasma MAGNESIUM BLD Lab Routine Oropharnyx cancer (HCC) Esophagitis Expected: 12/14/2022, Expires: 02/13/2023 [facility] Work Phone: Comment on above: Expected: 12/14/2022 , Expires: 02/13/2023 Start: 12-07-2022 End: 02-06-2023 CBC W Auto Differential panel - Blood CBC + DIFF Lab Routine Oropharnyx cancer (HCC) Expected: 12/07/2022, Expires: 02/06/2023 [facility] Work Phone: Comment on above: Expected: 12/07/2022 , Expires: 02/06/2023 Start: 12-07-2022 End: 02-06-2023 Comprehensive metabolic 2000 panel - Serum or Plasma COMP METABOLIC PANEL Lab Routine Oropharnyx cancer (HCC) Expected: 12/07/2022, Expires: 02/06/2023 [facility] Work Phone: Comment on above: Expected: 12/07/2022 , Expires: 02/06/2023 Start: 12-07-2022 End: 02-06-2023 Magnesium [Mass/volume] in Serum or Plasma MAGNESIUM BLD Lab Routine Oropharnyx cancer (HCC) Expected: 12/07/2022, Expires: 02/06/2023 [facility] Work Phone: Comment on above: Expected: 12/07/2022 , Expires: 02/06/2023 Start: 11-15-2022 End: 01-15-2023 CBC W Auto Differential panel - Blood CBC + DIFF Lab Routine Oropharnyx cancer (HCC) Expected: 11/15/2022, Expires: 01/15/2023 [facility] Work Phone: Comment on above: Expected: 11/15/2022 , Expires: 01/15/2023 Start: 11-15-2022 End: 01-15-2023 Comprehensive metabolic 2000 panel - Serum or Plasma COMP METABOLIC PANEL Lab Routine Oropharnyx cancer (HCC) Expected: 11/15/2022, Expires: 01/15/2023 [facility] Work Phone: Comment on above: Expected: 11/15/2022 , Expires: 01/15/2023 Start: 11-15-2022 End: 01-15-2023 Magnesium [Mass/volume] in Serum or Plasma MAGNESIUM BLD Lab Routine Oropharnyx cancer (HCC) Expected: 11/15/2022, Expires: 01/15/2023 [facility] Work Phone: Comment on above: Expected: 11/15/2022 , Expires: 01/15/2023 Start: 10-09-2022 DEPRESSION ASSESSMENT DEPRESSION ASS ESSMENT [facility] Start: 06-09-2022 Influenza vaccination INFLUENZA (#1) [facility] Start: 10-29-2021 COVID-19 VACCINE (3 - Booster for Pfizer series) COVID-19 VACCINE (3 - Booster for Pfizer series) [facility] Start: 10-01-2021 COVID-19 VACCINE (3 - Pfizer risk series) COVID-19 VACCINE (3 - Pfizer risk series) [facility] Start: 2021 PROSTATE CANCER SCREENING DISCUSSION PROSTATE CANCER SCREENING DISCUSSION [facility] Start: 2016 Influenza vaccination LUNG CANCER SC REENING [facility] Start: 2016 SHINGRIX VACCINE (1 of 2) SHINGRIX VACCINE (1 of 2) [facility] Start: 2011 COLOGUARD (FIT-DNA) COLOGUARD (FIT-D NA) [facility] Start: 2011 Colonoscopy COLONOSCOPY [facility] Start: 2011 COLORECTAL CANCER SCREENING COLORECTAL CANCER SCREENING [facility] Start: [address] COLONOGRAPHY [facility] Start: 2011 DIABETES SCREEN DIABETES SCREEN [facility] Start: 2011 FECAL OCCULT BLOOD FECAL OCCULT BLOO D [facility] Start: 2011 Screening for malign ant neoplasm of colon [facility] Start: 2011 SIGMOIDOSCOPY [facility]COPY [facility] Start: 2001 Lipid 1996 panel - Serum or Plasma Lipid Screening [facility] Start: 2001 Lipid panel Lipid Screening [facility] Start: 2001 LIPID SCREEN LIPID SCREEN [facility] Start: 1985 Hepatitis B Vaccine (1 of 3 - 19+ 3-dose series) Hepatitis B Vaccine (1 of 3 - 19+ 3-dose series) [facility] Start: 1985 SHINGRIX VACCINE (1 of 2) SHINGRIX VACCINE (1 of 2) [facility] Start: 1985 Urine microalbumin profile [facility] Start: 1984 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 Disease Visit Annual PCP Team Chronic Disease Visit [facility] Start: 1984 Anxiety Screening Anxiety Screening [facility] Start: 1984 BP Controlled (<130/80) BP Controlle d (<130/80) [facility] Start: 1984 Depression Screening Depression Scre ening [facility] Start: 1984 HEPATITIS C SCREENING HEPATITIS C [facility] Start: 1984 Hepatitis C screening Hepatitis C [facility] Start: 1984 HIV SCREENING HIV SCREENING [facility] Start: 1984 HIV screening HIV Screening [facility] Start: 1972 PNEUMOCOCCAL (1 - PCV) PNEUMOCOCCAL (1 - PCV) [facility] Start: 1972 Pneumococcal vaccination [facility] Start: 1966 HEPATITIS B (1 of 3 - 3-dose series) HEPATITIS B (1 of 3 - 3-dose series) [facility] Start: 1966 Hepatitis B Vaccine (1 of 3 - 3-dose series) Hepatitis B Vaccine (1 of 3 - 3-dose series) [facility] Start: 1966 Screening for malign ant neoplasm of colon [facility] ebus guided sampl 1/2 node station/strux BRONCHOSCOPY,RIGID/FLEX IBLE W/ FLUORO,W/ENDOBRONCHIAL ULTRASOUND (EBUS) GUIDED TRANSTRACHEAL/ TRANSBRONCHIAL ASPIRATION/BIOPSY,1 OR 2 MEDIASTINAL AND/OR HILAR LYMPH NODE STATIONS/STRUCTURES Adenopathy [facility] End: 04-25-2025 CT Abdomen and Pelvis W contrast IV CT ABD/PEL W IVCON Radiology 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 Thunderclap headache 1 Occurrences starting 03/26/2024 until 04/25/2025 [facility] Comment on above: 1 Occurrences starti ng 03/26/2024 until 04/25/2025 End: 04-25-2025 CT Chest W contrast IV CT CHEST W IVCON Radiology 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 Thunderclap headache 1 Occurrences starting 03/26/2024 until 04/25/2025 [facility] Comment on above: 1 Occurrences starti ng 03/26/2024 until 04/25/2025 CT SIM PLANNING RADIATION ONCOLOGY CT SIM PLANNING RADIATION ONCOLOGY Radiology Routine Oropharnyx cancer (HCC) Ordered: 11/09/2022 [facility] Work Phone: Comment on above: Ordered: 11/09/2022 CT SIM PLANNING RADIATION ONCOLOGY CT SIM PLANNING RADIATION ONCOLOGY Radiology Routine Oropharnyx cancer (HCC) Ordered: 11/14/2022 [facility] Work Phone: Comment on above: Ordered: 11/14/2022 CYTOLOGY NON-BULB GRADER [facility] Work Phone: Comment on above: Release Upon Orderin g for 1 Occurrences starting 08/30/2023, 1 completed End: 08-03-2024 ECG COMPLETE ECG COMPLETE ECG STAT Preoperative examination 1 Occurrences starting 08/03/2023 until 08/03/2024 [facility] Work Phone: Comment on above: 1 Occurrences starti ng 08/03/2023 until 08/03/2024 End: 05-13-2025 ECG COMPLETE ECG COMPLETE ECG Routine Adenopathy 1 Occurrences starting 05/13/2024 until 05/13/2025 [facility] Work Phone: Comment on above: 1 Occurrences starti ng 05/13/2024 until 05/13/2025 End: 04-25-2025 MR Brain WO and W contrast IV MRI BRAIN WO/W IVCON Radiology Routine Thunderclap headache 1 Occurrences starting 03/26/2024 until 04/25/2025 [facility] Comment on above: 1 Occurrences starti ng 03/26/2024 until 04/25/2025 End: 05-17-2024 MRI PROSTATE WO/W IVCON MRI PROSTATE WO/W IVCON Radiology Routine Encounter for observation for other suspected diseases and conditions ruled out 1 Occurrences starting 04/18/2023 until 05/17/2024 [facility] Work Phone: Comment on above: 1 Occurrences starti ng 04/18/2023 until 05/17/2024 End: 11-26-[address] attenuation skull base mid-thigh NM PET/CT SKULL-THIGH INITIAL Radiology Routine Oropharnyx cancer (HCC) 1 Occurrences starting 10/27/2022 until 11/26/2023 [facility] Work Phone: Comment on above: 1 Occurrences starti ng 10/27/2022 until 11/26/2023 End: 10-05-[address] attenuation skull base mid-thigh NM PET/CT SKULL-THIGH INITIAL Radiology Routine Neoplasm of lung 1 Occurrences starting 09/06/2023 until 10/05/2024 [facility] Work Phone: Comment on above: 1 Occurrences starti ng 09/06/2023 until 10/05/2024 SURGICAL PATHOLOGY [facility] Work Phone: Comment on above: Release Upon Orderin g for 1 Occurrences starting 08/30/2023, 1 completed [facility] Immunizations Immunization Date Immunization Notes Care Provider Moises linder 11-17-2022 influenza nasal, unspecified formulation Elizabeth Borjas MD Work Phone: [facility] 11-17-2022 influenza virus vaccine, unspecified formulation Norma Craig [facility] 11-17-2022 influenza, injectabl e, quadrivalent, preservative free Yadi Simms RD Work Phone: [facility] 10-09-2021 SARS-CoV-2 mRNA (tozinameran 5y-11y) vaccine Shelly Velez [facility] Comment on above: Result Comment: 3 va ccines 09-03-2021 SARS-CoV-2 (COVID-19 ) mRNA BNT-162b2 vax Norma Lue [facility] 08-06-2021 SARS-CoV-2 (COVID-19 ) mRNA BNT-162b2 vax Norma Lue [facility] Comment on above: Result Comment: 2022: [id number] Payers Date Payer Category Payer Managed Care HMO (unspecified) AET[employer] AETNA [id number] 2023-Present [address] [place] [address] HMO [id number] 2023 Private Health Insurance AETNA A ETNA POS [id number] 2023-Present [phone] [address] [place] [address] POS [id number] 2023 Private Health Insurance [id number] 2023 Self-pay [id number] 2022 Unknown ANTHEM BLUE ACCE SS PPO [id number] 2022-Present [phone] [address] [place] [address] PPO [id number] 2022 Unknown [id number] 1965 Unknown [id number] 2.16.840.1.597540.3.579. 2.593 1966 Unknown [id number] 2.16.840.1.464722.3.579. 2.593 1966 Unknown [id number] 2.16.840.1.234059.3.579. 2.593 1966 Unknown [id number] 2.16.840.1.254735.3.579. 2.593 1966 Unknown [id number] 2.16.840.1.163968.3.579. 2.593 1966 Unknown [id number] 2.16.840.1.134632.3.579. 2.593 1966 Unknown [id number] 2.16.840.1.332768.3.579. 2.727 1966 Unknown [id number] 2.16.840.1.829326.3.579. 2.727 1966 Unknown [id number] 2.16.840.1.569935.3.579. 2.727 1966 Unknown [id number] 2.16.840.1.216179.3.579. 2.727 1966 Unknown [id number] 2.16.840.1.461103.3.579. 2.727 1966 Unknown [id number] 2.16.840.1.250276.3.579. 2.727 1966 Unknown [id number] 2.16.840.1.062914.3.579. 2.1259 1966 Unknown [id number] 2.16.840.1.815303.3.579. 2.1259 1966 Unknown [id number] 2.16.840.1.218873.3.579. 2.1258 1966 Unknown [id number] 2.16.840.1.622300.3.579. 2.1258 1966 Unknown [id number] 2.16.840.1.382646.3.579. 2.1258 1966 Unknown [id number] 2.16.840.1.915932.3.579. 2.1258 1966 Unknown [id number] 2.16.840.1.736938.3.579. 2.1258 1966 Unknown [id number] 2.16.840.1.198178.3.579. 2.1259 1959 Unknown [id number] Unknown Shiro CHAPARRO [id number] Unknown [id number] 2.16.840.1.029961.3.579. 2.531 Unknown [id number] 2.16.840.1.201141.3.579. 2.531 Social History Date Type Detail Facility Start: 06-10-2022 Tobacco smoking status Never smoked tobacco (finding) [facility] Tobacco smoking status Never [facility] Start: 03-02-2023 End: 04-18-2023 Sex Assigned At Male [facility] Start: 10-27-2022 End: 11-29-2022 Tobacco smoking status NHIS Ex-smoker [facility] Start: 10-13-1987 End: 10-13-2022 History of tobacco use Current smoker [facility] Start: 10-13-1987 End: 10-13-2022 History of tobacco use Cigarette Smoker [facility] Start: 10-27-2022 End: 03-02-2023 Cigarettes smoked current (pack per day) - Reported 1 [facility] Start: 10-27-2022 End: 11-29-2022 Tobacco use and exposure Former smokeless tobacco user [facility] Start: 10-27-2022 End: 05-08-2024 Alcohol intake Current drinker of alcohol (finding) [facility] Start: 10-27-2022 Alcohol Comment occ [facility] Start: 1965 Sex Assigned At Male [facility] History of tobacco use Passive smoker [facility] Start: 10-26-2022 Gender identity Identifies as male gender (finding) [facility] Start: 10-26-2022 Sexual orientation Heterosexual (finding) [facility] End: 10-09-1987 History of tobacco use Snuff User [facility] How many standard drinks containing alcohol do you have on a typical day? 1 or 2 [facility] How often do you hav e 6 or more drinks on 1 occasion? Less than monthly [facility] Start: 04-14-2023 Alcohol Comment caffeine intake: 3-4 cups per day [facility] Functional Status Date Assessment Result Facility 07-07-2023 Functional Status Yes [facility] 06-08-2023 Functional Status N/A [facility] 06-10-2022 Functional Status N/A [facility] Clinical Notes 06-10-2022 to 05-21-2024 Karolina Catalan MD - 05/17/2024 9:30 AM Dorys Chand MA - 05/16/2024 2:58 PM Dorys Chand MA - 05/16/2024 2:58 PM EDTPatient InstructionsPatient Instructions Note Date & Type Note Facility 05-21-2024 Note HNO ID: [id number] Author: MANUEL HOWELL APRN.NEWS PRODUCER Service: Anesthesiology Author Type: Nurse Engine Service Repairer Type: Anesthesia Procedure Notes Filed: 05/21/2024 10:54 Note Text: ANESTHESIOLOGY PROCEDURE NOTE Airway General Information Procedure Start Time/Medication Administration: 05/21/2024 10:45 AM Procedure End Time: 05/21/2024 10:45 AM Patient location during procedure: OR Timeout Performed Pre-procedure: timeout performed Consent Obtained: Yes Patient 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 SIGNATURE: Manuel Howell APRN.NEWS PRODUCER PATIENT NAME: Caitlin Elmore DATE: May 21, 2024 TIME: 10:54 AM CSN: [id number] [facility] 05-21-2024 Note [facility] Patient Name: Caitlin Elmore Procedure Date: 05/21/2024 10:41 AM Date of : 1965 Admit Type: Ambulatory Age: 59 Room: [facility] Room 2 Gender: Male Attending MD: Ras Starr MD, [id number] Procedure: Bronchoscopy Indications: Mediastinal adenopathy Providers: Ras Starr MD (Doctor), Donna Raines RN (Assisting Nurse), Ana Wolf RN (Assisting Nurse) Referring MD: Requesting Physician: Elizabeth Borjas Patient Profile: Refer to note in patient chart for documentation of history and physical. Medicines: General Anesthesia, See the Anesthesia note for documentation of the administered medications Complications: No immediate complications Procedure: Pre-Anesthesia Assessment: - A History and Physical has been performed. Patient meds and allergies have been reviewed. The risks and benefits of the procedure and the sedation options and risks were discussed with the patient. All questions were answered and informed consent was obtained. Patient identification and proposed procedure were verified prior to the procedure by the physician, the nurse and the anesthesiologist in the procedure room. Mental Status Examination: normal. Airway Examination: normal oropharyngeal airway. Respiratory Examination: clear to auscultation. CV Examination: regular rate and rhythm. ASA Grade Assessment: III - A patient with severe systemic disease. After reviewing the risks and benefits, the patient was deemed in satisfactory condition to undergo the procedure. The anesthesia plan was to use general anesthesia. Immediately prior to administration of medications, the patient was re-assessed for adequacy to receive sedatives. The heart rate, respiratory rate, oxygen saturations, blood pressure, adequacy of pulmonary ventilation, and response to care were monitored throughout the procedure. The physical status of the patient was re-assessed after the procedure. After obtaining informed consent, the Bronchoscope was introduced through the mouth, via laryngeal mask airway and advanced to the tracheobronchial tree. the Bronchoscope was introduced through the mouth, via laryngeal mask airway and advanced to the tracheobronchial tree. The procedure was accomplished without difficulty. The patient tolerated the procedure well. Findings: The laryngeal mask airway is in good position. The vocal cords appear normal. The subglottic space is normal. The trachea is of normal caliber. The catrachita is sharp. The tracheobronchial tree was examined to at least the first subsegmental level. Bronchial mucosa and anatomy are normal; there are no endobronchial lesions, and no secretions. Once the airway inspection was completed, the standard bronchoscope was withdrawn and the convex probe endobronchial ultrasound (EBUS) bronchoscope was inserted through the same route. Lymph Nodes: The following lymph nodes were evaluated and/or sampled. Lymph node sizing was performed via endobronchial ultrasound. Sampling by transbronchial needle aspiration was also performed using an Olympus ViziShot 22 gauge needle and sent for routine cytology. - The 10R (hilar) node was 16 mm by EBUS, [address] and PET scan was not done. Eight samples with the needle were obtained. - The 7 (subcarinal) node was 7 mm by EBUS, [address] and PET scan was not done. Three samples with the needle were obtained. - The 4L (lower paratracheal) node was 4 mm by EBUS, [address] and non-hypermetabolic via PET scan. Four samples with the needle were obtained. - The 11Rs (superior interlobar) node was 4 mm by EBUS and PET scan was not done. Sampling was not done due to size criteria (less than 5 mm). - The 11Ri (inferior interlobar) node was 4 mm by EBUS, [address] and PET scan was not done. Sampling was not done due to size criteria (less than 5 mm). - The 4R (lower paratracheal) node was 4.5 mm by EBUS, [address] and PET scan was not done. Sampling was not done due to size criteria (less than 5 mm). - The 4R (lower paratracheal) node was 3 mm by EBUS and [address]. Sampling was not done due to size criteria (less than 5 mm). Lymph Nodes: Rapid On-Site Evaluation (GIULIA): Preliminary cytology was suggestive of necrotic tissue (final results are pending) in the right hilar region (level 10R). Preliminary cytology was suggestive of benign-appearing lymphoid tissue (final results are pending) in the subcarinal mediastinum (level 7). Cytology was preliminarily non-diagnostic in the left lower paratracheal region (level 4L). Impression: - Mediastinal adenopathy - Lymph node sizing and sampling was performed. - Rapid On-Site Evaluation (GIULIA): Preliminary cytology was suggestive suggestive of necrotic tissue in node level 10R, suggestive of benign-appearing lymphoid tissue in node level 7, and preliminary cytology was non- (more content not included)... [facility] 05-17-2024 History of Present illness Narrative Pre-Bronchoscopy H&P CONSULTATION PCP: Naty Burton MD No ref. provider found Chief Complaint: Pre-bronchoscopy evaluation I have communicated my name and active licensure. The patient's identity and physical location were verified at the time of this visit. Either the patient or their legal technical sales representatives has been informed of the risks and benefits of -- and alternatives to -- treatment through a remote evaluation and consents to proceed with the evaluation remotely. HPI: Caitlin Elmore is a 59 year old who presents today for the evaluation of past medical history prior to proceeding with bronchoscopy. 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 Most recent chest CT scan showed continue nodular opacities in the R lung with mild R hilar lymphadenopathy. After discussion at tumor board, there are plans for EBUS and if hilar nodes are negative, plan for SBRT of his pulmonary nodules. Note that he had a bronchoscopy in 08/2023. He denies any respiratory or anesthesia-related issues during this procedure. Pulmonary risk factors: - Advanced obstructive/restrictive lung disease: no - Recent pulmonary exacerbation (whether hospitalized or not) in the past 30 days: no - Moderate or greater pulmonary hypertension: no - History of severe obstructive sleep apnea: no - History of difficult intubation: no- fiberoptically intubated with 8,5 ETT for bronchoscopy in 08/2023, but able to obtain grade I view with Benton, anterior airway. - Patients with prior history of lung resection: no - Patients with prior history of spontaneous pneumothorax: no Patient is negative for cardiac/vascular comorbidities (ie poorly controlled hypertension, known CAD, unrepaired/moderate or greater valvular abnormalities, poorly controlled/unstable arrhythmias, unrepaired congenital heart disease, recent cardiac/vascular stents, active heart failure, severe carotid disease, aortic aneurysm, pulmonary hypertension, implanted cardiac devices such as defibrillators and pacemakers). Nor is the patient on anticoagulant therapy, or GLP-1 agonsits (ie Ozempic, Mounjaro, Trulicity, etc); SGLT2 inhibitors (ie -flozin drugs - Jardiance, etc) Patient is negative for neurological risk factors (ie History of stroke or traumatic brain injury with residual deficit, history of stroke or TIA (recovered) that is not yet deemed stable by neurology, advanced dementia, any neurologic impairment requiring assistance with 1 or more basic ADL s, poorly-controlled seizure disorder, etc) Patient has a history of radiation for his oral cancer. He notes some possible mild issues with range of motion of the neck. Otherwise no airway compromise risk factors. Able to look up and rotate head from [id number]. ECOG PERFORMANCE STATUS: 0- Fully active, able to carry on all pre-disease performance w/o restriction. BMI: 29.01 kg/m2 PAST MEDICAL HISTORY No date: Hard of hearing No date: HTN (hypertension) No date: Hypercholesteremia PAST SURGICAL HISTORY No date: BIOPSY OF ORAL TISSUE SOFT 09/2023: BRONCHOSCOPY W/PLACEMENT TRACHEAL STENT No date: PAST SURGICAL HISTORY OF; Right Comment: mastoidectomy and incus repair No date: TONSILLECTOMY & ADENOIDECTOMY <AGE 13 Social History Tobacco Use Smoking status: Former Packs/day: 1.00 Years: 35.00 Additional pack years: 0.00 Total pack years: 35.00 Types: Cigarettes Quit date: 10/13/2022 Years since quittin.5 Passive exposure: Past Smokeless tobacco: Former Vaping Use Vaping Use: Never used Substance Use Topics Alcohol use: Yes Comment: occ Drug use: Not Currently Types: Marijuana FAMILY HISTORY Problem Relation Age of Onset Prostate Cancer Father Thyroid Cancer Sister Anesthesia Problems No Family History Malig Hyperthermia No Family History Allergies: ALLERGIES No Known Allergies Current Medications: hydrocortisone (CORTEF) 5 mg tablet Take 10 mg upon waking in the morning and 5 mg at night (4-6 hours before bed) levothyroxine (SYNTHROID) 50 mcg tablet TAKE 1 TABLET BY MOUTH EVERY DAY ondansetron (ZOFRAN) 8 mg tablet Take 1 tablet by mouth every 8 hours as needed for nausea/vomiting. prochlorperazine (COMPAZINE) 10 mg tablet Take 1 tablet by mouth every 6 hours as needed. tamsulosin (FLOMAX) 0.4 mg Take 0.4 mg by mouth. amLODIPine (NORVASC) 10 mg tablet Take 10 mg by mouth once daily. lisinopril (ZESTRIL, PRINIVIL) 40 mg tablet Take 40 mg by mouth once daily. pravastatin (PRAVACHOL) 20 mg tablet Take 20 mg by mouth once daily. ibuprofen (MOTRIN) 200 mg tablet Take 200 mg by mouth every 6 hours as needed. Imaging: Reviewed by me. Last CT Chest - Impression Only CT CHEST W IVCON Exam End: 05/03/2024 8:57 AM (Final result) Impression: IMPRESSION: 1. Nodular opacities in right lung measuring up to 1.6 cm worrisome for metastases, increased in size since 12/08/23 2. Mild right hilar lymphadenopathy, either stable or slightly smaller.. ... Lab data: Reviewed Hemoglobin (g/dL) Date Value 05/08/2024 14.9 Hematocrit (%) Date Value 05/08/2024 43.7 WBC (k/uL) Date Value 05/08/2024 7.03 Platelet Count (k/uL) Date Value 05/08/2024 161 CMP: Glucose 111 05/08/2024 BUN 20 05/08/2024 Creatinine, Whole Blood (iSTAT) 1.50 05/08/2024 Sodium 139 05/08/2024 Potassium 4.4 05/08/2024 Chloride 104 05/08/2024 CO2 23 05/08/2024 Protein, Total 7.2 05/08/2024 Albumin 4.7 05/08/2024 Calcium, Total 10.3 05/08/2024 Alkaline Phosphatase 84 05/08/2024 Bilirubin, Total 0.4 05/08/2024 AST 15 05/08/2024 ALT 20 05/08/2024 No textual results found for the specified procedure(s). EKG RESULTS: Recent Results (from the past 8760 hour(s)) ECG COMPLETE Collection Time: 05/16/24 2:53 PM Result Value Ventricular Rate 66 Atrial Rate 66 P-R Interval 174 QRS Duration 82 QT Interval 426 QTC Calculation (Bazett) 446 Calculated P Ephraim 61 Calculated R Ephraim -5 Calculated T Ephraim 45 Impression NORMAL SINUS RHYTHM NORMAL ECG ROS-negative for chest pain, dyspnea, cough, wheezing or use of inhalers/nebulizers. Immunization History Administered Date(s) Administered COVID-19 original vaccine, age 12+ yr, monovalent ([employer] - PURPLE TOP) 08/06/2021 09/03/2021 influenza (IIV4) vaccine, age 6 mo - 64 yr, quadrivalent, PF (AFLURIA, FLUARIX, FLULAVAL, FLUZONE) 11/17/2022 influenza (LAIV) vaccine, nasal, unspecified formulation 11/17/2022 influenza vaccine, unspecified formulation 11/17/2022 There were no vitals taken for this visit. Physical Exam General: Alert, in no distress on video visit. Unable to assess Mallampati score due to the nature of the visit- was noted to be III at recent anesthesia preoperative evaluation. Impression/Plan: Mr. 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 #1 Yfad-sa-[id number] SCC s/p chemotherapy + XRT with metastatic lung nodules, on pembrolizumab #2 Former smoker, 35 pack years, quit in 2022 #3 Hypertension #4 Hyperlipidemia After review today, Mr. Elmore is medically optimized for the upcoming procedure. He has also been seen with an anesthesia provider this week who agrees. Karolina Catalan MD May 17, 2024, 9:30 AM I spent a total of 30 minutes on the date of the service which included preparing to see the patient, [id number] patient care, and completing clinical documentation. documented in this encounter [facility] 05-17-2024 Note HNO ID: [id number] Author: KAROLINA CATALAN MD Service: ? Author Type: Physician Type: Progress Notes Filed: 05/17/2024 10:00 Note Text: Pre-Bronchoscopy HANDP CONSULTATION PCP: Naty Butron MD No ref. provider found Chief Complaint: Pre-bronchoscopy evaluation I have communicated my name and active licensure. The patient's identity and physical location were verified at the time of this visit. Either the patient or their legal technical sales representatives has been informed of the risks and benefits of -- and alternatives to -- treatment through a remote evaluation and consents to proceed with the evaluation remotely. HPI: Caitlin Elmore is a 59 year old who presents today for the evaluation of past medical history prior to proceeding with bronchoscopy. Briefly, he has a past medical history significant for [id number] SCC s/p cisplatin and XRT 9727-1227 with recurrent in lung s/p robotic bronchoscopic biopsy in 08/2023 s/p carbo/Taxol and pembrolizumab, currently on pembrolizumab monotherapy. Most recent chest CT scan showed continue nodular opacities in the R lung with mild R hilar lymphadenopathy. After discussion at tumor board, there are plans for EBUS and if hilar nodes are negative, plan for SBRT of his pulmonary nodules. Note that he had a bronchoscopy in 08/2023. He denies any respiratory or anesthesia-related issues during this procedure. Pulmonary risk factors: - Advanced obstructive/restrictive lung disease: no - Recent pulmonary exacerbation (whether hospitalized or not) in the past 30 days: no - Moderate or greater pulmonary hypertension: no - History of severe obstructive sleep apnea: no - History of difficult intubation: no- fiberoptically intubated with 8,5 ETT for bronchoscopy in 08/2023, but able to obtain grade I view with Benton, anterior airway. - Patients with prior history of lung resection: no - Patients with prior history of spontaneous pneumothorax: no Patient is negative for cardiac/vascular comorbidities (ie poorly controlled hypertension, known CAD, unrepaired/moderate or greater valvular abnormalities, poorly controlled/unstable arrhythmias, unrepaired congenital heart disease, recent cardiac/vascular stents, active heart failure, severe carotid disease, aortic aneurysm, pulmonary hypertension, implanted cardiac devices such as defibrillators and pacemakers). Nor is the patient on anticoagulant therapy, or GLP-1 agonsits (ie Ozempic, Mounjaro, Trulicity, etc); SGLT2 inhibitors (ie ?-flozin? drugs - Jardiance, etc) Patient is negative for neurological risk factors (ie History of stroke or traumatic brain injury with residual deficit, history of stroke or TIA (recovered) that is not yet deemed stable by neurology, advanced dementia, any neurologic impairment requiring assistance with 1 or more basic ADL?s, poorly-controlled seizure disorder, etc) Patient has a history of radiation for his oral cancer. He notes some possible mild issues with range of motion of the neck. Otherwise no airway compromise risk factors. Able to look up and rotate head from [id number]. ECOG PERFORMANCE STATUS: 0- Fully active, able to carry on all pre-disease performance w/o restriction. BMI: 29.01 kg/m2 PAST MEDICAL HISTORY No date: Hard of hearing No date: HTN (hypertension) No date: Hypercholesteremia PAST SURGICAL HISTORY No date: BIOPSY OF ORAL TISSUE SOFT 09/2023: BRONCHOSCOPY W/PLACEMENT TRACHEAL STENT No date: PAST SURGICAL HISTORY OF; Right Comment: mastoidectomy and incus repair No date: TONSILLECTOMY AND ADENOIDECTOMY Social History Tobacco Use Smoking status: Former Packs/day: 1.00 Years: 35.00 Additional pack years: 0.00 Total pack years: 35.00 Types: Cigarettes Quit date: 10/13/2022 Years since quittin.5 Passive exposure: Past Smokeless tobacco: Former Vaping Use Vaping Use: Never used Substance Use Topics Alcohol use: Yes Comment: occ Drug use: Not Currently Types: Marijuana FAMILY HISTORY Problem Relation Age of Onset Prostate Cancer Father Thyroid Cancer Sister Anesthesia Problems No Family History Malig Hyperthermia No Family History Allergies: ALLERGIES No Known Allergies Current Medications: hydrocortisone (CORTEF) 5 mg tablet Take 10 mg upon waking in the morning and 5 mg at night (4-6 hours before bed) levothyroxine (SYNTHROID) 50 mcg tablet TAKE 1 TABLET BY MOUTH EVERY DAY ondansetron (ZOFRAN) 8 mg tablet Take 1 tablet by mouth every 8 hours as needed for nausea/vomiting. prochlorperazine (COMPAZINE) 10 mg tablet Take 1 tablet by mouth every 6 hours as needed. tamsulosin (FLOMAX) 0.4 mg Take 0.4 mg by mouth. amLODIPine (NORVASC) 10 mg tablet Take 10 mg by mouth once daily. lisinopril (ZESTRIL, PRINIVIL) 40 mg tablet Take 40 mg by mouth once daily. pravastatin (PRAVACHOL) 20 mg tablet Take 20 mg by mouth once daily. ibuprofen (MOTRIN) 200 mg tablet Take 200 mg by mouth every 6 ho (more content not included)... [facility] 05-16-2024 Nurse Note EKG performed as ordered, transmitted electronically to [facility] main. Dorys Dutton MA [facility] 05-16-2024 Nurse Note EKG performed as ordered, transmitted electronically to [facility] main. Dorys Dutton MA documented in this encounter [facility] 05-14-2024 Instructions Negrita Gaffney PA - 05/14/2024 2:38 PM EDT Images from the original note were not included. [facility] PATIENT PREOPERATIVE INSTRUCTIONS Ras Starr MD has scheduled you for your procedure at this surgery center: [facility]: [phone] --[id number] [id number]. Please check in on the 1st floor at registration desk 6. Please read below carefully for your personalized instructions. Dietary Restrictions: - No solid food after midnight. - You may have 12 ounces of clear liquids (water, clear juices such as apple juice or gatorade, carbonated beverages, clear tea, black coffee, jello) until 2 hours before scheduled arrival at facility. Medications: Unless instructed differently below, stay on all of your medications until your surgery. If you start any new medications after today's visit, please contact your surgeon. Pre-Surgery Med Instructions Medication Instructions hydrocortisone (CORTEF) 5 mg tablet Continue. levothyroxine (SYNTHROID) 50 mcg tablet Continue. ondansetron (ZOFRAN) 8 mg tablet Continue. prochlorperazine (COMPAZINE) 10 mg tablet Continue. tamsulosin (FLOMAX) 0.4 mg Continue. amLODIPine (NORVASC) 10 mg tablet Continue. lisinopril (ZESTRIL, PRINIVIL) 40 mg tablet Do not take for 24 hours prior to surgery pravastatin (PRAVACHOL) 20 mg tablet Continue. ibuprofen (MOTRIN) 200 mg tablet Stop 7 days before surgery If you take any medications for erectile dysfunction-Cialis (Tadalafil), Levitra, Staxyn (Vardenafil) Viagra (Sildenenafil please do not take these for 48 hours before surgery. If you start any new medications after today's visit, please contact the surgeon's office. Blood Thinning Medications: - Stop NSAIDS (Ibuprofen, Advil, Aleve, Motrin, Celebrex, Mobic, etc.) 7 days before surgery, as directed by your surgeon. - Stop Aspirin 7 days before surgery, as directed by your surgeon. - Stop Vitamin E, ALL multi-vitamins, herbals and dietary supplements 7 days before surgery. - You may take Tylenol (Acetaminophen) or any of your pain medications that do not contain aspirin or NSAIDS as needed. Important Reminders: - If you use CPAP/BIPAP, bring the machine with you to the surgery center. - Candy, mints, and tobacco products are NOT permitted the morning of surgery. - Hearing aids, dentures and glasses may be worn the morning of surgery. - NO jewelry, body piercings, makeup, hairpins or contacts are to be worn the day of surgery. If you develop symptoms such as a fever, cold, or flu, or have other changes to your health within TWO DAYS of scheduled surgery or the morning of surgery, please contact the surgery center above. Personal Belongings: -Please have photo ID and insurance cards. -If you do not have a copy of advance directives on file with us, please bring a copy with you on the day of surgery. - Leave ALL valuables and money at home or with family members. For Outpatient Procedures: - YOU MUST HAVE A RESPONSIBLE CRANE SERVICE TECHNICIAN TAKE YOU HOME. A KNITTING MACHINE OPERATOR OR LANGUAGE THERAPIST CANNOT BE MADE A RESPONSIBLE CRANE SERVICE TECHNICIAN. - We recommend that a responsible person stays with you overnight to take care of you. - You cannot stay in a hotel alone after outpatient surgery. You will not be permitted to have your surgery, if you do not have someone to take care of you. Arrival Time for Surgery: - The Surgery Center or hospital where you are having surgery will call the afternoon before surgery (or Monday for Monday surgery) with a scheduled arrival time. - If you have not heard by 4 pm, please contact the surgery center above. Please be aware that emergency situations arise, which may delay or change your surgical time. If this happens, we will notify you as soon as possible and regret any inconvenience. If you already have an Advance Directive, please fax a copy to [phone] or email to for it to be added to your chart. If you do not have an Advance Directive, you can find the appropriate form and more information at [email or web address]. We recommend that you complete the Advance Directive form found on the website and bring it with you the day of your surgery. It can be witnessed and scanned into your chart that day. FRANCISCO Burnett documented in this encounter [facility] 05-14-2024 History and physical note Images from the original note were not included. [facility] Pre-Anesthesia Consultation Clinic HISTORY AND PHYSICAL EXAMINATION SERVICE DATE: 05/14/2024 SERVICE TIME: 2:50 PM PRIMARY CARE PHYSICIAN: Naty Burton MD Assessment Patient has the following medical conditions which may affect kalani-operative course: 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) S/p chemo and RT. Takes Keytruda. Follows with heme/onc, last seen in 05/08/24. Former smoker Quit smoking in 10/2022. ~ 35 pack years. Denies CP or SOB. Reports a chronic cough. Hypothyroidism Takes Synthroid. Seen by endocrinology on 05/10/24. TSH Date Value Ref Range Status 05/08/2024 5.160 (H) 0.270 - 4.200 mIU/L Final Adrenal insufficiency (HCC) Takes hydrocortisone. Seen by endocrinology on 05/10/24. HTN (hypertension) Takes amlodipine and lisinopril. Denies CP, SOB, or palpitations. HLD (hyperlipidemia) Takes pravastatin. Denies CP. CKD (chronic kidney disease) Stable. Roberts Activity Status Index: METS: Walk indoors, such as around the house (1.75 METs) Do light work around the house, such as dusting or washing dishes (2.70 METs) Take care of self; that is eating, dressing, bathing, using the toilet (2.75 METs) Walk a block or two on level ground (2.75 METs) Do moderate work around the house, such as vacuuming, sweeping floors, or carrying in groceries (3.50 METs) Do yardwork, such as raking leaves, weeding, or pushing a power mower (4.50 METs) Have sexual relations (5.25 METs) Climb a flight of stairs or walk up a hill (5.50 METs) DASI Score: 28.7 Patient denies any chest pain or undue shortness of breath with the above physical activity. STOP-Bang Score: Snores loudly Has or is being treated for high blood pressure Patient over 50 years old Male patient Denies feeling tired, fatigued, or sleepy during the daytime Has not been observed to stop breathing or choking/gasping during sleep BMI less than or equal to 35 kg/m^2 Does not have a large neck STOP-Bang Score: 4 [id number] Score: Hypertension history: Yes [id number] Score: ANESTHESIA FINDINGS: Intubation History: No history of difficult intubation Significant Anesthesia Considerations: none Airway History: No history of difficult airway I - PHYSICAL EVALUATION AIRWAY Patient intubated: No. Tracheostomy tube not present Mallampati: III. TM distance: >3 FB. Neck ROM: full ROM without neurological symptoms. Mouth opening: adequate. Short neck: no. Thick neck: no Hassan present: yes Lip Bite Test: II Microretrognathia/Micronagthia/Re cessed Chin: No DENTAL Dental findings: missing tooth/teeth. Dentures, lower: partial. II - ANESTHESIA PLAN Anesthetic plan additional comments: *PACC/TCI - anesthesia choice. Beta Magi Monitoring Plan Post Procedure Analgesic Plan Prepared for Surgery: optimally prepared for surgery. EKG reviewed from 08/2023. CBC & CMP reviewed from 05/08/24. CONSULTS: Planned Anesthetic: anesthesia choice The Following Tests/Procedures Have Been Initiated: No orders of the defined types were placed in this encounter. This is a virtual visit using Supercircuits video visit. It required patient-provider interaction for the medical decision making as documented below. REASON FOR VISIT: Caitlin Elmore is a 59 year old male who is scheduled for Procedure(s): BRONCHOSCOPY,RIGID/FLEXIBLE W/ FLUORO,W/ENDOBRONCHIAL ULTRASOUND (EBUS) GUIDED TRANSTRACHEAL/ TRANSBRONCHIAL ASPIRATION/BIOPSY,1 OR 2 MEDIASTINAL AND/OR HILAR LYMPH NODE STATIONS/STRUCTURES (N/A) at the request of Dr. Ras Starr for consultation. My final recommendation will be communicated back to the requesting physician by way of shared medical record or letter. Subjective The patient has the following: ACTIVE PROBLEM LIST Malignant Neoplasm of Base of Tongue (Hcc) Oropharnyx Cancer (Hcc) Severe Protein-Calorie Malnutrition (Hcc) Former Smoker Hypothyroidism Adrenal Insufficiency (Hcc) Htn (Hypertension) Hld (Hyperlipidemia) Ckd (Chronic Kidney Disease) COVID-19 Immunization Status Overdue - Covid-19 Vaccine (3 - Pfizer risk series) Overdue since 10/01/2021 09/03/2021 Imm Admin: COVID-19 original vaccine, age 12+ yr, monovalent (PFIZER-BIONTECH - PURPLE TOP) 08/06/2021 Imm Admin: COVID-19 original vaccine, age 12+ yr, monovalent (PFIZER-BIONTECH - PURPLE TOP) CHIEF COMPLAINT: Pre-anesthesia consultation HPI: 59 year old year old male presents today for a pre-anesthesia consultation for the above procedure. Patient has a h/o oral cancer and is scheduled for a bronchoscopy to rule out metastasis. Denies fever or chills. This is a virtual visit. The visit was conducted using Supercircuits video visit. It required patient-provider interaction for the medical decision making as documented below. I have communicated my name and active licensure. The patient's identity and physical location were verified at the time of this visit. Either the patient or their legal technical sales representatives has been informed of the risks and benefits of and alternatives to treatment through a remote evaluation and consents to proceed with the evaluation remotely. REVIEW OF SYSTEMS: General: No weight loss, malaise or fevers. Neurological: No history of TIA's, stroke, IMPROVEMENT ENGINEER tumor, impaired sensorium, hemiplegia, paraplegia or quadraplegia. No neurological symptoms or problems. Respiratory: See HPI. Former smoker Positive for: current cough. Negative for: dyspnea. Cardiovascular: Positive for: hyperlipidemia and hypertension GI: No history of GI symptoms or problems. No history of esophageal varices, recent ascites, or ETOH greater than 2 drinks per day. : CKD Endocrine: Positive for: hypothyroidism and steroid for chronic problem. Hematology: No history of bleeding or clotting disorder. Patient is not taking anti-coagulation or platelet medications. No history of hematological symptoms or problems. Oncology: No history of CA metastasis, chemo within 30 days, or radiotherapy within 90 days. No history of oncological symptoms or problems. Psych: No history of psychiatric symptoms or problems. Musculoskeletal: Positive for: joint pain. Skin: Negative for lesions, rash and itching. PAST MEDICAL HISTORY No date: Hard of hearing No date: HTN (hypertension) No date: Hypercholesteremia PAST SURGICAL HISTORY No date: BIOPSY OF ORAL TISSUE SOFT 09/2023: BRONCHOSCOPY W/PLACEMENT TRACHEAL STENT No date: PAST SURGICAL HISTORY OF; Right Comment: mastoidectomy and incus repair No date: TONSILLECTOMY & ADENOIDECTOMY FAMILY HISTORY Problem Relation Age of Onset Prostate Cancer Father Thyroid Cancer Sister Anesthesia Problems No Family History Malig Hyperthermia No Family History Social History Tobacco Use Smoking status: Former Packs/day: 1.00 Years: 35.00 Additional pack years: 0.00 Total pack years: 35.00 Types: Cigarettes Quit date: 10/13/2022 Years since quittin.5 Passive exposure: Past Smokeless tobacco: Former Vaping Use Vaping Use: Never used Substance Use Topics Alcohol use: Yes Comment: occ Drug use: Not Currently Types: Marijuana Prior to Admission medications as of 05/14/24 1430 Medication Sig Last Dose Taking hydrocortisone (CORTEF) 5 mg tablet Take 10 mg upon waking in the morning and 5 mg at night (4-6 hours before bed) Taking Yes levothyroxine (SYNTHROID) 50 mcg tablet TAKE 1 TABLET BY MOUTH EVERY DAY Taking Yes ondansetron (ZOFRAN) 8 mg tablet Take 1 tablet by mouth every 8 hours as needed for nausea/vomiting. Taking Yes prochlorperazine (COMPAZINE) 10 mg tablet Take 1 tablet by mouth every 6 hours as needed. Taking Yes tamsulosin (FLOMAX) 0.4 mg Take 0.4 mg by mouth. Taking Yes amLODIPine (NORVASC) 10 mg tablet Take 10 mg by mouth once daily. Taking Yes lisinopril (ZESTRIL, PRINIVIL) 40 mg tablet Take 40 mg by mouth once daily. Taking Yes pravastatin (PRAVACHOL) 20 mg tablet Take 20 mg by mouth once daily. Taking Yes ibuprofen (MOTRIN) 200 mg tablet Take 200 mg by mouth every 6 hours as needed. Taking Yes No medication comments found. ALLERGIES No Known Allergies Objective PHYSICAL EXAM: (if completed, exam performed via video enabled technology) General: alert and oriented and obese. Skin: No apparent rashes.. HEENT: EOM intact. Cardiovascular: Self palpated radial pulse, regular when counted aloud by patient. Respiratory: Adequate non-labored breathing. Equal chest rise and fall bilaterally.. Abdomen: Extremities: No obvious deformities.. Neurological: No obvious deficits. Normal cognition. Grossly normal motor skills.. PAIN ASSESSMENT: VITALS: Ht 5' 11 (1.80m) Wt 208 lb (94.3kg) BMI 29.02 kg/(m^2). Diagnostic tests reviewed for today's visit: Lab Value Units Date High Low HB 14.9 g/dL 05/08/2024 17.0 13.0 HCT 43.7 % 05/08/2024 51.0 39.0 WBC 7.03 k/uL 05/08/2024 11.00 3.70 PLT 161 k/uL 05/08/2024 400 150 NA 139 mmol/L 05/08/2024 144 136 K 4.4 mmol/L 05/08/2024 5.1 3.7 GLUC 111 mg/dL 05/08/2024 99 74 BUN 20 mg/dL 05/08/2024 24 9 CREAT 1.50 mg/dL 05/08/2024 1.22 0.73 PTSEC No results within date range. INR No results within date range. APTT No results within date range. ALT 20 U/L 05/08/2024 54 10 AST 15 U/L 05/08/2024 40 14 TBILI 0.4 mg/dL 05/08/2024 1.3 0.2 TSH 5.160 mIU/L 05/08/2024 4.200 0.270 Lab Value Units Date High Low HCGQT No results within date range. UHCG No results within date range. HCG, BODY* No results within date range. Lab Value Units Date High Low ABORHD No results within date range. ABSCREEN No results within date range. No results found for: HBA1C Recent Results (from the past 8760 hour(s)) ECG COMPLETE Collection Time: 08/24/23 10:39 AM Result Value Ventricular Rate 52 Atrial Rate 52 P-R Interval 148 QRS Duration 86 QT Interval 452 QTC Calculation (Bazett) 420 Calculated P Ephraim 64 Calculated R Ephraim 23 Calculated T Ephraim 43 Impression SINUS BRADYCARDIA OTHERWISE NORMAL ECG Confirmed by SAHARA GARCIA M.D. ([id number]) on 08/29/2023 2:56:05 PM No results found for this or any previous visit (from the past 88809 hour(s)). Instructions Given to Patient: Instructions located in the after visit summary. Patient given verbal and written preop instructions and voices comprehension and compliance. SIGNATURE: FRANCISCO Burnett PATIENT NAME: Caitlin Elmore DATE: May 14, 2024 TIME: 11:09 AM PAGER/CONTACT #: [facility] 05-14-2024 History and physical note Images from the original note were not included. [facility] HISTORY AND PHYSICAL EXAMINATION SERVICE DATE: 05/14/2024 SERVICE TIME: 2:50 PM PRIMARY CARE PHYSICIAN: aNty Burton MD Assessment Patient has the following medical conditions which may affect kalani-operative course: 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) S/p chemo and RT. Takes Keytruda. Follows with heme/onc, last seen in 05/08/24. Former smoker Quit smoking in 10/2022. ~ 35 pack years. Denies CP or SOB. Reports a chronic cough. Hypothyroidism Takes Synthroid. Seen by endocrinology on 05/10/24. TSH Date Value Ref Range Status 05/08/2024 5.160 (H) 0.270 - 4.200 mIU/L Final Adrenal insufficiency (HCC) Takes hydrocortisone. Seen by endocrinology on 05/10/24. HTN (hypertension) Takes amlodipine and lisinopril. Denies CP, SOB, or palpitations. HLD (hyperlipidemia) Takes pravastatin. Denies CP. CKD (chronic kidney disease) Stable. Roberts Activity Status Index: METS: Walk indoors, such as around the house (1.75 METs) Do light work around the house, such as dusting or washing dishes (2.70 METs) Take care of self; that is eating, dressing, bathing, using the toilet (2.75 METs) Walk a block or two on level ground (2.75 METs) Do moderate work around the house, such as vacuuming, sweeping floors, or carrying in groceries (3.50 METs) Do yardwork, such as raking leaves, weeding, or pushing a power mower (4.50 METs) Have sexual relations (5.25 METs) Climb a flight of stairs or walk up a hill (5.50 METs) DASI Score: 28.7 Patient denies any chest pain or undue shortness of breath with the above physical activity. STOP-Bang Score: Snores loudly Has or is being treated for high blood pressure Patient over 50 years old Male patient Denies feeling tired, fatigued, or sleepy during the daytime Has not been observed to stop breathing or choking/gasping during sleep BMI less than or equal to 35 kg/m^2 Does not have a large neck STOP-Bang Score: 4 [id number] Score: Hypertension history: Yes [id number] Score: ANESTHESIA FINDINGS: Intubation History: No history of difficult intubation Significant Anesthesia Considerations: none Airway History: No history of difficult airway I - PHYSICAL EVALUATION AIRWAY Patient intubated: No. Tracheostomy tube not present Mallampati: III. TM distance: >3 FB. Neck ROM: full ROM without neurological symptoms. Mouth opening: adequate. Short neck: no. Thick neck: no Hassan present: yes Lip Bite Test: II Microretrognathia/Micronagthia/Re cessed Chin: No DENTAL Dental findings: missing tooth/teeth. Dentures, lower: partial. II - ANESTHESIA PLAN Anesthetic plan additional comments: *PACC/TCI - anesthesia choice. Beta Magi Monitoring Plan Post Procedure Analgesic Plan Prepared for Surgery: optimally prepared for surgery. EKG reviewed from 08/2023. CBC & CMP reviewed from 05/08/24. CONSULTS: Planned Anesthetic: anesthesia choice The Following Tests/Procedures Have Been Initiated: No orders of the defined types were placed in this encounter. This is a virtual visit using Supercircuits video visit. It required patient-provider interaction for the medical decision making as documented below. REASON FOR VISIT: Caitlin Elmore is a 59 year old male who is scheduled for Procedure(s): BRONCHOSCOPY,RIGID/FLEXIBLE W/ FLUORO,W/ENDOBRONCHIAL ULTRASOUND (EBUS) GUIDED TRANSTRACHEAL/ TRANSBRONCHIAL ASPIRATION/BIOPSY,1 OR 2 MEDIASTINAL AND/OR HILAR LYMPH NODE STATIONS/STRUCTURES (N/A) at the request of Dr. Rsa Starr for consultation. My final recommendation will be communicated back to the requesting physician by way of shared medical record or letter. Subjective The patient has the following: ACTIVE PROBLEM LIST Malignant Neoplasm of Base of Tongue (Hcc) Oropharnyx Cancer (Hcc) Severe Protein-Calorie Malnutrition (Hcc) Former Smoker Hypothyroidism Adrenal Insufficiency (Hcc) Htn (Hypertension) Hld (Hyperlipidemia) Ckd (Chronic Kidney Disease) COVID-19 Immunization Status Overdue - Covid-19 Vaccine (3 - Pfizer risk series) Overdue since 10/01/2021 09/03/2021 Imm Admin: COVID-19 original vaccine, age 12+ yr, monovalent (PFIZER-BIONTECH - PURPLE TOP) 08/06/2021 Imm Admin: COVID-19 original vaccine, age 12+ yr, monovalent (PFIZER-BIONTECH - PURPLE TOP) CHIEF COMPLAINT: Pre-anesthesia consultation HPI: 59 year old year old male presents today for a pre-anesthesia consultation for the above procedure. Patient has a h/o oral cancer and is scheduled for a bronchoscopy to rule out metastasis. Denies fever or chills. This is a virtual visit. The visit was conducted using Supercirc[employer] video visit. It required patient-provider interaction for the medical decision making as documented below. I have communicated my name and active licensure. The patient's identity and physical location were verified at the time of this visit. Either the patient or their legal technical sales representatives has been informed of the risks and benefits of and alternatives to treatment through a remote evaluation and consents to proceed with the evaluation remotely. REVIEW OF SYSTEMS: General: No weight loss, malaise or fevers. Neurological: No history of TIA's, stroke, IMPROVEMENT ENGINEER tumor, impaired sensorium, hemiplegia, paraplegia or quadraplegia. No neurological symptoms or problems. Respiratory: See HPI. Former smoker Positive for: current cough. Negative for: dyspnea. Cardiovascular: Positive for: hyperlipidemia and hypertension GI: No history of GI symptoms or problems. No history of esophageal varices, recent ascites, or ETOH greater than 2 drinks per day. : CKD Endocrine: Positive for: hypothyroidism and steroid for chronic problem. Hematology: No history of bleeding or clotting disorder. Patient is not taking anti-coagulation or platelet medications. No history of hematological symptoms or problems. Oncology: No history of CA metastasis, chemo within 30 days, or radiotherapy within 90 days. No history of oncological symptoms or problems. Psych: No history of psychiatric symptoms or problems. Musculoskeletal: Positive for: joint pain. Skin: Negative for lesions, rash and itching. PAST MEDICAL HISTORY No date: Hard of hearing No date: HTN (hypertension) No date: Hypercholesteremia PAST SURGICAL HISTORY No date: BIOPSY OF ORAL TISSUE SOFT 09/2023: BRONCHOSCOPY W/PLACEMENT TRACHEAL STENT No date: PAST SURGICAL HISTORY OF; Right Comment: mastoidectomy and incus repair No date: TONSILLECTOMY & ADENOIDECTOMY <AGE 13 FAMILY HISTORY Problem Relation Age of Onset Prostate Cancer Father Thyroid Cancer Sister Anesthesia Problems No Family History Malig Hyperthermia No Family History Social History Tobacco Use Smoking status: Former Packs/day: 1.00 Years: 35.00 Additional pack years: 0.00 Total pack years: 35.00 Types: Cigarettes Quit date: 10/13/2022 Years since quittin.5 Passive exposure: Past Smokeless tobacco: Former Vaping Use Vaping Use: Never used Substance Use Topics Alcohol use: Yes Comment: occ Drug use: Not Currently Types: Marijuana Prior to Admission medications as of 05/14/24 1430 Medication Sig Last Dose Taking hydrocortisone (CORTEF) 5 mg tablet Take 10 mg upon waking in the morning and 5 mg at night (4-6 hours before bed) Taking Yes levothyroxine (SYNTHROID) 50 mcg tablet TAKE 1 TABLET BY MOUTH EVERY DAY Taking Yes ondansetron (ZOFRAN) 8 mg tablet Take 1 tablet by mouth every 8 hours as needed for nausea/vomiting. Taking Yes prochlorperazine (COMPAZINE) 10 mg tablet Take 1 tablet by mouth every 6 hours as needed. Taking Yes tamsulosin (FLOMAX) 0.4 mg Take 0.4 mg by mouth. Taking Yes amLODIPine (NORVASC) 10 mg tablet Take 10 mg by mouth once daily. Taking Yes lisinopril (ZESTRIL, PRINIVIL) 40 mg tablet Take 40 mg by mouth once daily. Taking Yes pravastatin (PRAVACHOL) 20 mg tablet Take 20 mg by mouth once daily. Taking Yes ibuprofen (MOTRIN) 200 mg tablet Take 200 mg by mouth every 6 hours as needed. Taking Yes No medication comments found. ALLERGIES No Known Allergies Objective PHYSICAL EXAM: (if completed, exam performed via video enabled technology) General: alert and oriented and obese. Skin: No apparent rashes.. HEENT: EOM intact. Cardiovascular: Self palpated radial pulse, regular when counted aloud by patient. Respiratory: Adequate non-labored breathing. Equal chest rise and fall bilaterally.. Abdomen: Extremities: No obvious deformities.. Neurological: No obvious deficits. Normal cognition. Grossly normal motor skills.. PAIN ASSESSMENT: VITALS: Ht 5' 11 (1.80m) Wt 208 lb (94.3kg) BMI 29.02 kg/(m^2). Diagnostic tests reviewed for today's visit: Lab Value Units Date High Low HB 14.9 g/dL 05/08/2024 17.0 13.0 HCT 43.7 % 05/08/2024 51.0 39.0 WBC 7.03 k/uL 05/08/2024 11.00 3.70 PLT 161 k/uL 05/08/2024 400 150 NA 139 mmol/L 05/08/2024 144 136 K 4.4 mmol/L 05/08/2024 5.1 3.7 GLUC 111 mg/dL 05/08/2024 99 74 BUN 20 mg/dL 05/08/2024 24 9 CREAT 1.50 mg/dL 05/08/2024 1.22 0.73 PTSEC No results within date range. INR No results within date range. APTT No results within date range. ALT 20 U/L 05/08/2024 54 10 AST 15 U/L 05/08/2024 40 14 TBILI 0.4 mg/dL 05/08/2024 1.3 0.2 TSH 5.160 mIU/L 05/08/2024 4.200 0.270 Lab Value Units Date High Low HCGQT No results within date range. UHCG No results within date range. HCG, BODY* No results within date range. Lab Value Units Date High Low ABORHD No results within date range. ABSCREEN No results within date range. No results found for: HBA1C Recent Results (from the past 8760 hour(s)) ECG COMPLETE Collection Time: 08/24/23 10:39 AM Result Value Ventricular Rate 52 Atrial Rate 52 P-R Interval 148 QRS Duration 86 QT Interval 452 QTC Calculation (Bazett) 420 Calculated P Ephraim 64 Calculated R Ephraim 23 Calculated T Ephraim 43 Impression SINUS BRADYCARDIA OTHERWISE NORMAL ECG Confirmed by SAHARA GARCIA M.D. ([id number]) on 08/29/2023 2:56:05 PM No results found for this or any previous visit (from the past 57012 hour(s)). Instructions Given to Patient: Instructions located in the after visit summary. Patient given verbal and written preop instructions and voices comprehension and compliance. SIGNATURE: FRANCISCO Burnett PATIENT NAME: Caitlin Elmore DATE: May 14, 2024 TIME: 11:09 AM PAGER/CONTACT #: documented in this encounter [facility] 05-14-2024 Note HNO ID: [id number] Author: ?, ?, ? Service: ? Author Type: ? 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 Author Type: Physician Type: Progress Notes Filed: 05/13/2024 18:44 Note Text: Bronchoscopy Request: Please schedule patient for the following: Bronchoscopy Procedures: EBUS Pre-Procedure visit required: Yes Visit type: New Consultation Anticipated Procedure Date: 05/21/24 Physician Performing Bronchoscopy: Dr. Starr Needs Labs: No Needs EKG: Yes Needs CT: No Does the pt need cardiac clearance? No Is patient on anticoagulants/anti-plt therapy? No Is patient on GLP-1 agonsits (ie Ozempic, Mounjaro, Trulicity, etc)? No Is patient on SGLT2 inhibitors (?-flozin? drugs - Jardiance, etc)? No IF YES TO EITHER OF ABOVE TWO QUESTIONS PLEASE REFER TO [facility] ANESTHESIA GUIDANCE ON HOLDING Diagnosis/Reason for Bronchoscopy: Patient with hx two RUL squamous cell (thought metastatic oracl cancer), treated with Carbo/Taxol/pembro. His CT with the same 2 nodules growing and case discussed at . Plan for EBUS and if hilar node is negative consider SBRT to the 2 pulmonary lesions. (EBUS only of nodes) Referred by: [place] Reviewed by: CLARICE Starr MD May 13, 2024 6:37 PM [facility] 05-13-2024 History of Present illness Narrative Bronchoscopy Request: Please schedule patient for the following: Bronchoscopy Procedures: EBUS Pre-Procedure visit required: Yes Visit type: New Consultation Anticipated Procedure Date: 05/21/24 Physician Performing Bronchoscopy: Dr. Starr Needs Labs: No Needs EKG: Yes Needs CT: No Does the pt need cardiac clearance? No Is patient on anticoagulants/anti-plt therapy? No Is patient on GLP-1 agonsits (ie Ozempic, Mounjaro, Trulicity, etc)? No Is patient on SGLT2 inhibitors ( -flozin drugs - Jardiance, etc)? No IF YES TO EITHER OF ABOVE TWO QUESTIONS PLEASE REFER TO [facility] ANESTHESIA GUIDANCE ON HOLDING Diagnosis/Reason for Bronchoscopy: Patient with hx two RUL squamous cell (thought metastatic oracl cancer), treated with Carbo/Taxol/pembro. His CT with the same 2 nodules growing and case discussed at [facility]. Plan for EBUS and if hilar node is negative consider SBRT to the 2 pulmonary lesions. (EBUS only of nodes) Referred by: [place] Reviewed by: CLARICE Starr MD May 13, 2024 6:37 PM documented in this encounter [facility] 05-10-2024 Instructions Tom eMdina MD - 05/10/2024 10:36 AM EDT Skip afternoon dose of hydrocortisone and come to the lab around 7:30 AM for a cortisol test. Take the hydrocortisone morning dose after blood draw. documented in this encounter [facility] 05-10-2024 Note [facility] 05-10-2024 History of Present illness Narrative ENDOCRINOLOGY REASON FOR CONSULTATION: Adrenal insufficiency The patient is referred by Vanesa Gomez. My recommendations will be sent to the referring physician/provider either by letter or shared electronic medical record. HISTORY HPI: Caitlin Elmore is a 59 year old male who comes in here for evaluation of adrenal insufficiency. Pt started to feel exhausted since end of February 2024. 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 Last dose was on 05/08/24. From Oncology note: Concurrent Cisplatin and XRT 11/21/2021- XRTY completed 01/06/2023 and last dose of chemo 12/21/2022 ( Total [place] dose= 200 mg/m2). Recurrence in the Lung Biopsy proven 08/2023: PDL-1 insufficient and KRAS G12A, PIK3CA ( Targeted Oncology only due to sample). Carbo/Taxol ad Pembro 09/26/2023-12/11/2023 ( Cycle 4) With response. Pembro monotherapy. TSH elevation was initially detected on 11/14/23 and was confirmed over time. Pt was started on LT4 50 mcg on 01/04/24. Cortisol was checked once at 2:17 PM and it was 4.0 Pt was started on hydrocortisone on 03/28/24, 10 mg at 7 AM and 5 mg around 6 PM. May missed a couple of times the evening dose without feeling different. Pt received dexamethasone infusions, 10 mg, grossly once a month, form 11/21/22 to 12/12/23. Pt gets very tired when he works physically. He feels OK on not working days. He feels more tired around 3-4 PM. No changes in vision. Peripheral vision is good. No significant headaches. Does not wear rings. No changes in shoe size. No increased sweating. Decreased sex drive since 2021, before starting chemo. No growth or tenderness on breasts. -Sister with thyroid cancer. REVIEW OF SYSTEMS: CONSTITUTIONAL: Per HPI. HEENT: No frequent or severe headaches. EYES: No blurry vision. No diplopia. CARDIOVASCULAR: No significant chest pain. No palpitations. No ankle edema. PULMONARY: No significant dyspnea. GASTROINTESTINAL: Frequent heartburn, mostly at night. He takes Roll Aids for it. No significant constipation or diarrhea. GENITOURINARY: Nocturia average: 3-4. No new urinary complaints. No significant incontinence. NEUROLOGIC: No tremor. No numbness of concern. MUSCULOSKELETAL: No significant joint or muscle pain. No swelling. MENTAL HEALTH: No concerns regarding depression or anxiety. INTEGUMENTARY: No new skin changes. ENDOCRINE: Per HPI PAST MEDICAL HISTORY No date: Hard of hearing No date: HTN (hypertension) No date: Hypercholesteremia PAST SURGICAL HISTORY No date: PAST SURGICAL HISTORY OF; Right Comment: mastoidectomy and incus repair No date: TONSILLECTOMY & ADENOIDECTOMY <AGE 13 Social History Tobacco Use Smoking status: Former Packs/day: 1.00 Years: 35.00 Additional pack years: 0.00 Total pack years: 35.00 Types: Cigarettes Quit date: 10/13/2022 Years since quittin.5 Passive exposure: Past Smokeless tobacco: Former Vaping Use Vaping Use: Never used Substance Use Topics Alcohol use: Yes Comment: occ Drug use: Not Currently Types: Marijuana FAMILY HISTORY Problem Relation Age of Onset Prostate Cancer Father Thyroid Cancer Sister Current Outpatient Medications Medication Sig hydrocortisone (CORTEF) 5 mg tablet Take 10 mg upon waking in the morning and 5 mg at night (4-6 hours before bed) levothyroxine (SYNTHROID) 50 mcg tablet TAKE 1 TABLET BY MOUTH EVERY DAY ondansetron (ZOFRAN) 8 mg tablet Take 1 tablet by mouth every 8 hours as needed for nausea/vomiting. prochlorperazine (COMPAZINE) 10 mg tablet Take 1 tablet by mouth every 6 hours as needed. tamsulosin (FLOMAX) 0.4 mg Take 0.4 mg by mouth. amLODIPine (NORVASC) 10 mg tablet Take 10 mg by mouth once daily. lisinopril (ZESTRIL, PRINIVIL) 40 mg tablet Take 40 mg by mouth once daily. pravastatin (PRAVACHOL) 20 mg tablet Take 20 mg by mouth once daily. ibuprofen (MOTRIN) 200 mg tablet Take 200 mg by mouth every 6 hours as needed. No current facility-administered medications for this visit. ALLERGIES No Known Allergies PHYSICAL EXAM: BP 137/77 (BP Site: Left Arm, BP Position: Sitting, BP Cuff Size: Large Adult) Pulse (!) 56 Ht 177.8 cm (5' 10 ) Wt 96.1 kg (211 lb 13.8 oz) SpO2 98% BMI 30.40 kg/m Body mass index is 30.4 kg/m . Appearance: Well appearing, in no acute distress. HEENT: Anicteric sclerae. Non-injected conjunctivae. Normal visual abarca.EOMI. Neck: No visible goiter. No thyromegaly. No lymphadenopathy Heart: RRR. No detectable murmur, gallop, or rub. Lungs: Clear to auscultation. No wheezing, rhonchi or rales. Extremities: No deformities. No edema. Neuro: Alert, speaking coherently. No involuntary motions. Good proximal strength. Skin: Normal temperature. No rash. LABS RESULTS: Latest Ref [facility] 09/26/2023 9:34 AM 10/20/2023 8:20 AM 11/14/2023 8:57 AM 12/12/2023 8:59 AM 01/02/2024 9:10 AM 02/13/2024 9:57 AM 03/26/2024 1:29 PM 03/26/2024 2:17 PM 05/08/2024 1:26 PM TSH 0.270 - 4.200 mIU/L 3.160 2.570 4.340 (H) 14.400 (H) 7.450 (H) 4.720 (H) 4.480 (H) 5.160 (H) ACTH 7.2 - 63.3 pg/mL 10.6 Cortisol 4.8 - 19.5 ug/dL 4.0 (L) IMAGING: CT abdomen/pelvis (12/08/23): Adrenals: No mass. ASSESSMENT & PLAN: Caitiln Elmore is a 59 year old male here for evaluation of adrenal insufficiency. (E03.9) Acquired hypothyroidism (primary encounter diagnosis) Comment: Associated with pembrolizumab. Test suggest a higher LT4 dose is required, but will not increase it until evaluation for adrenal insufficiency is completed. Plan: BIOAVAILABLE TESTOSTERONE, ADULT MALE, LUTEINIZING HORMONE, FOLLICLE STIMULATING HORMONE, PROLACTIN, T4 FREE/FREE THYROXINE, CORTISOL, SERUM, INSULIN LIK GR FAC I, THYROID PEROXIDASE ANTIBODY (E27.40) Adrenal insufficiency (HCC) Comment: Possibile adrenal insufficiency. Plan to skip one dose of hydrocortisone PM and check AM cortisol. If cortisol <10, plan to do Cosyntropin stimulatin test. Ia adrenal insufficieny confirmed, would adjust hydrocortisone; (weight adjusted dose would be 22. 5 mg per day). Will assess other pituitary function indicators, knowing that hypophysitis related to pembrolizumab is rare. Plan: CONSULT TO ENDOCRINOLOGY, BIOAVAILABLE TESTOSTERONE, ADULT MALE, LUTEINIZING HORMONE, FOLLICLE STIMULATING HORMONE, PROLACTIN, T4 FREE/FREE THYROXINE, CORTISOL, SERUM, INSULIN LIK GR FAC I Return to office: 3 months MD vidya Flores documented in this encounter [facility] 05-08-[address] Elizabeth Borjas is referring CLARICE to Dr. Starr for EBUS. Thank you! [facility] 05-08-[address] Elizabeth Borjas is referring CLARICE to Dr. Starr for EBUS. Thank you! documented in this encounter [facility] 05-08-2024 Note [facility] 05-08-2024 History of Present illness Narrative Images from the original note were not included. [place] PATIENT NAME: Caitlin Elmore [facility] NO.: [id number] ATTENDING PHYSICIAN: Elizabeth Borjas MD DATE OF SERVICE: May 08, 2024 Some of the elements of this note have been copied from my previous progress note dated 12/12/2023. All the information has been reviewed carefully. Dear Dr. Carrillo referring provider defined for this encounter. here is an update on a follow up visit on male Caitlin Elmore at the clinic May 08, 2024 Diagnosis: HPV positive BOT SCC Treatment History: Concurrent Cisplatin and XRT 11/21/2021- XRTY completed 01/06/2023 and last dose of chemo 12/21/2022 ( Total [place] dose= 200 mg/m2) Recurrence in the Lung Biopsy proven 08/2023: PDL-1 insufficient and KRAS G12A, PIK3CA ( Targeted Oncology only due to sample) Carbo/Taxol ad Pembro 09/26/2023-12/11/2023 ( Cycle 4) With response, Pembro monotherapy HPI: Caitlin Elmore is a 59 year old year old male here for follow up. Doing well outside of mild arthralgia. Denies any nausea and or abdominal pain and or diarrhea. Denies any skin rash and or cough PAST MEDICAL HISTORY No date: Hard of hearing No date: HTN (hypertension) No date: Hypercholesteremia Social History Tobacco Use Smoking status: Former Packs/day: 1.00 Years: 35.00 Additional pack years: 0.00 Total pack years: 35.00 Types: Cigarettes Quit date: 10/13/2022 Years since quittin.5 Passive exposure: Past Smokeless tobacco: Former Vaping Use Vaping Use: Never used Substance Use Topics Alcohol use: Yes Comment: occ Drug use: Not Currently Types: Marijuana FAMILY HISTORY Problem Relation Age of Onset Prostate Cancer Father Thyroid Cancer Sister Past medical, social and family history reviewed without any changes. REVIEW OF SYSTEMS GENERAL: No weight loss, malaise or fevers. No night sweats. HEENT: Negative for headaches, No changes in hearing or vision, no nose bleeds or other nasal problems. RESPIRATORY: Negative for cough, wheezing and shortness of breath CARDIOVASCULAR: Negative for chest pain, leg swelling and palpitations GI: Negative for abdominal discomfort, blood in stools or black stools and change in bowel habits : Negative for dysuria, frequency and incontinence MUSCULOSKELETAL: Negative for joint pain or swelling, back pain, and muscle pain. SKIN: Negative for lesions, rash, and itching. HEMATOLOGY/LYMPHOLOGY Negative for prolonged bleeding, bruising easily, and swollen nodes. NEURO: Negative for numbness or tingling of hands/feet. No weakness. PHYSICAL EXAMINATION: BP 145/90 Pulse 74 Temp (Src) 97.8 (Temporal) Resp 18 Ht 5' 10.866 (1.80m) Wt 210 lb 12.2 oz (95.6kg) SpO2 100% BMI 29.51 kg/(m^2). Wt 90.4 kg (199 lb 6.4 oz) BMI 26.54 kg/m2 Last 3 Encounter Wt Readings: Date: Wt: 11/29/2022 90.4 kg (199 lb 6.4 oz) 11/28/2022 88.9 kg (196 lb) 11/21/2022 92.1 kg (203 lb) General appearance:ECOG PERFORMANCE STATUS: 1- Restricted in physically strenuous activity. Carries out light duty. Patient in NAD. Skin: Skin color, texture, turgor normal. No rashes or lesions. Eyes: Anicteric sclera. Pupils are equally round and reactive to light. Extraocular movements are intact. Lymph Nodes: Cervical node on the L decreased in size Oropharynx: Lips, mucosa, and tongue normal. Back: No pain to percussion. Negative SLR test Lungs clear to auscultation, No wheezing or rhonchi Heart: RRR without murmur, gallop, or rubs. Abdomen soft, non-tender. No masses, organomegaly Extremities: No deformities. No edema Neuro: Gait and speech normal. Reflexes normal and symmetric. Muscular strength intact. Sensation grossly intact. Rectal: Deferred : Deferred LABS: Glucose (mg/dL) Date Value 03/26/2024 103 Potassium (mmol/L) Date Value 03/26/2024 4.2 Sodium (mmol/L) Date Value 03/26/2024 136 Chloride (mmol/L) Date Value 03/26/2024 101 CO2 (mmol/L) Date Value 03/26/2024 28 Creatinine (mg/dL) Date Value 03/26/2024 1.64 BUN (mg/dL) Date Value 03/26/2024 27 Anion Gap (mmol/L) Date Value 03/26/2024 7 Calcium, Total (mg/dL) Date Value 03/26/2024 10.2 Protein, Total (g/dL) Date Value 03/26/2024 7.0 Albumin (g/dL) Date Value 03/26/2024 4.6 Bilirubin, Total (mg/dL) Date Value 03/26/2024 0.5 Alkaline Phosphatase (U/L) Date Value 03/26/2024 74 AST (U/L) Date Value 03/26/2024 12 ALT (U/L) Date Value 03/26/2024 12 WBC Date Value Ref Range Status 05/08/2024 7.03 3.70 - 11.00 k/uL Final RBC Date Value Ref Range Status 05/08/2024 5.03 4.20 - 6.00 m/uL Final Hemoglobin Date Value Ref Range Status 05/08/2024 14.9 13.0 - 17.0 g/dL Final Hematocrit Date Value Ref Range Status 05/08/2024 43.7 39.0 - 51.0 % Final MCV Date Value Ref Range Status 05/08/2024 86.9 80.0 - 100.0 fL Final MCH Date Value Ref Range Status 05/08/2024 29.6 26.0 - 34.0 pg Final MCHC Date Value Ref Range Status 05/08/2024 34.1 30.5 - 36.0 g/dL Final RDW-CV Date Value Ref Range Status 05/08/2024 12.6 11.5 - 15.0 % Final Platelet Count Date Value Ref Range Status 05/08/2024 161 150 - 400 k/uL Final MPV Date Value Ref Range Status 05/08/2024 8.1 (L) 9.0 - 12.7 fL Final Abs Neut Date Value Ref Range Status 05/08/2024 4.85 1.45 - 7.50 k/uL Final Lymphocytes % Date Value Ref Range Status 05/08/2024 16.5 % Final Abs Lymph Date Value Ref Range Status 05/08/2024 1.16 1.00 - 4.00 k/uL Final Monocytes % Date Value Ref Range Status 05/08/2024 7.5 % Final Abs Gates Date Value Ref Range Status 05/08/2024 0.53 <0.87 k/uL Final Eosin% Date Value Ref Range Status 01/11/2023 5.0 % Final Abs Eosin Date Value Ref Range Status 05/08/2024 0.42 <0.46 k/uL Final Basophils % Date Value Ref Range Status 05/08/2024 0.6 % Final Abs Baso Date Value Ref Range Status 05/08/2024 0.04 <0.11 k/uL Final PATH: L BOT mass Biopsy 10/18/2022: 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 KRAS [id number].[id number]>A 51.2% VAF, Depth 4267x, Ex2 PIK3CA p.[id number].[id number]>A 21.7% VAF, Depth 5015x, Ex10 PDL-1 Insufficient IMAGING: CT Neck 10/2022: PET 11/2022: 1. Neck: Intensely hypermetabolic right oropharyngeal region mass compatible with neoplastic process. Hypermetabolic right cervical lymphadenopathy suspicious for metastatic lymphadenopathy. 2. Chest: No evidence of FDG avid neoplastic process 3. Abdomen and pelvis: No evidence of FDG avid metastases Increased activity in the prostatic region correlation with PSA is suggested. 4. Skeleton: No hypermetabolic osseous lesions PET Scan 04/2023 1. NECK: * Interval resolution of intense uptake in the right tongue base. * Resolution of FDG avid cervical lymphadenopathy. 2. CHEST: * New subcentimeter right upper lobe pulmonary nodules, too small to accurately assess for FDG uptake. Differential includes infection/inflammation or metastasis. Attention on follow-up recommended. * No FDG avid lymphadenopathy. 3. ABDOMEN/PELVIS: * Similar appearance of focal FDG uptake in the left prostate gland. This is concerning for primary prostatic malignancy. Correlation with MRI prostate without and with IV contrast is recommended. * Otherwise, no FDG avid lymphadenopathy. 4. EXTREMITIES/SKELETON: * No suspicious FDG avid osseous lesion. CT Chest 07/2023: 1. Since 04/14/2023, multiple enlarging right lung nodules, suspicious for metastases. 2. No progressive lymphadenopathy. PET Scan 09/2023: 1. HEAD and NECK: No evidence of focal uptake to suggest FDG avid neoplastic process.. 2. CHEST: Right upper lobe lung nodule increased in size and metabolic activity, associated with new right hilar FDG avid hilar lymphadenopathy most suspicious for neoplastic process. Slightly more prominent nodules in the right lung with mild uptake are also seen.. 3. ABDOMEN/PELVIS: No evidence of focal uptake to suggest FDG avid neoplastic process.. 4. EXTREMITIES/SKELETON: No evidence of focal uptake to suggest FDG avid neoplastic process.. CT Scan of the Chest and Abdomen and Pelvis 11/2023: 1. Improvement in the previously seen pulmonary nodules when compared to the chest CT from 08/24/2023 and the PET/CT from 09/22/2023 as described above. There is a mild to moderately enlarged right hilar lymph node measuring 2.3 x 1.6 cm which demonstrated FDG avidity on the prior PET/CT. Comparison to the prior studies is limited due to the lack of intravenous contrast on the prior exams. However, this node appears likely to be enlarged and is suspicious for progression of metastatic adenopathy. 1. No evidence of metastatic disease in the abdomen or pelvis. 2. Enlargement of the prostate gland. CT Scan of the Chest and Abdomen and Pelvis 04/2024: 1. Nodular opacities in right lung measuring up to 1.6 cm worrisome for metastases, increased in size since 12/08/23 2. Mild right hilar lymphadenopathy, either stable or slightly smaller.. 1. No evidence of intra-abdominal/pelvic metastases. No interval change since 12/08/23. 2. Nonspecific subcentimeter hepatic foci, stable Assessment and Plan: Caitlin Elmore is a 59 year old year old male here for follow up. 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 PET with response 04/2023. 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 PET reviewed withj progression of saul disease. Insufficient tumor for PDL-1 and will start Carbo/Taxol and Pembro today. Discussed adverse events and also IRAE and he agrees and Started Carbo/Taxol and Pembro 09/26/2023. He had a response and after 4 cycles of chemo he has been on Pembro since 01/02/2024. His CT with the same 2 nodules growing and case discussed at TB. Plan for EBUS and if hilar node is negative consider SBRT to the 2 pulmonary lesions 2. PET positive in the prostate and he follows urology 3. CRI- Stable See back in 6 weeks and in the meantime plan for EBUS and if hilar node negative SBRT, refer to Dr. Erickson at [facility] as discussed in the [facility] Thank you for the kind referral. If there are any questions and or concerns please do not hesitate to contact me at [phone]. Elizabeth Borjas MD Hematology/Medical Oncology [facility] I spent a total of 30 minutes on the date of the service which included preparing to see the patient, [id number] patient care, completing clinical documentation, obtaining and/or reviewing separately obtained history, performing a medically appropriate examination, counseling and educating the patient/family/caregiver, and ordering medications, tests, or procedures. CC: Naty Burton MD documented in this encounter [facility] 05-03-2024 Note [facility] 05-03-2024 Note [facility] 03-28-2024 Telephone encounter Note Tiff- I see you have been working on this with [facility] patient. Wanted to keep you in the loop. I will also forward to front end driver to schedule. PSS: Can we now refer him to [facility] endocrinology? Gabriella Mason RN [facility] 03-28-2024 Miscellaneous Notes Tiff- I see you have been working on this with [facility] patient. Wanted to keep you in the loop. I will also forward to front end driver to schedule. PSS: Can we now refer him to [facility] endocrinology? Gabriella Mason, RN documented in this encounter [facility] 03-26-2024 Note HNO ID: [id number] Author: PRIMO SCOTT RN Service: ? 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 500 ml NS IV orders given. 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 500 ml NS IV orders given. Primo Scott RN documented in this encounter [facility] 03-26-2024 Nurse Note Patient is getting completely exhausted when he works x3-4 weeks. Patient is getting headaches in back of head has happened 3-4x it is a sharp pain lasting for about 5 seconds. Dorys Dutton MA [facility] 03-26-2024 Nurse Note Patient is getting completely exhausted when he works x3-4 weeks. Patient is getting headaches in back of head has happened 3-4x it is a sharp pain lasting for about 5 seconds. Dorys Dutton MA documented in this encounter [facility] 03-26-2024 Note [facility] 03-26-2024 History of Present illness Narrative Images from the original note were not included. [place] PATIENT NAME: [facility] NO.: [id number] ATTENDING PHYSICIAN: Elizabeth Borjas MD DATE OF SERVICE: March 26, 2024 (Elements copied from the note dated January 02, 2024, have been reviewed and updated where appropriate, and all reflect current assessment and medical decision making during today's encounter, March 26, 2024) CC: Follow up Diagnosis: HPV positive BOT SCC. Treatment History: Concurrent Cisplatin and XRT 11/21/2021- XRTY completed 01/06/2023 and last dose of chemo 12/21/2022 ( Total [place] dose= 200 mg/m2). Recurrence in the Lung Biopsy proven 08/2023: PDL-1 insufficient and KRAS G12A, PIK3CA ( Targeted Oncology only due to sample). Carbo/Taxol ad Pembro 09/26/2023-12/11/2023 ( Cycle 4) With response. Pembro monotherapy. Q 6 week dosing as of February 2024 HPI: CLARICE returns for follow up. Over the last 3 weeks he has noticed terrible exhaustion when he does even 30 minutes of physical work. He feels like he just needs to take a nap. He does not feel exhausted when he is at home doing regular activities. It only happens when he is working. Denies any shortness of breath or cough. He also has had sharp shooting pain to the left posterior head. It lasts a few seconds. It is very painful. Denies any vision changes, ataxia or dizziness. Otherwise feels well. No diarrhea. PAST MEDICAL HISTORY Diagnosis Date Hard of hearing HTN (hypertension) Hypercholesteremia Social History Tobacco Use Smoking status: Former Packs/day: 1.00 Years: 35.00 Additional pack years: 0.00 Total pack years: 35.00 Types: Cigarettes Quit date: 10/13/2022 Years since quittin.4 Passive exposure: Past Smokeless tobacco: Former Vaping Use Vaping Use: Never used Substance Use Topics Alcohol use: Yes Comment: occ Drug use: Not Currently Types: Marijuana FAMILY HISTORY Problem Relation Age of Onset Prostate Cancer Father Thyroid Cancer Sister Past medical, social and family history reviewed without any changes. REVIEW OF SYSTEMS General: No weight loss, malaise or fevers. No night sweats. +fatigue and headaches HEENT: Negative for headaches, No changes in hearing or vision, no nose bleeds or other nasal problems. Respiratory: Negative for cough, wheezing and shortness of breath. Cardiovascular: Negative for chest pain, leg swelling and palpitations. GI: Negative for abdominal discomfort, blood in stools or black stools and change in bowel habits. : Negative for dysuria, frequency and incontinence. Musculoskeletal: Negative for joint pain or swelling, back pain, and muscle pain. Skin: Negative for lesions, rash and itching. Hematology/Lymphology; Negative for prolonged bleeding, bruising easily, and swollen nodes. Neuro: Negative for numbness or tingling of hands/feet. No weakness. PHYSICAL EXAMINATION: BP 123/73 Pulse 87 Temp (Src) 97.7 (Temporal) Resp 16 Ht 5' 10.866 (1.80m) Wt 209 lb 7 oz (95.0kg) SpO2 97% BMI 29.32 kg/(m^2). ECOG 0 Exam limited to gross visualization where appropriate. Gen.: This is an age-appropriate patient in no acute distress. Head: Appears atraumatic with no visible lesions. Eyes: Pupils equally round and reactive to light, extraocular muscles are intact. Neck: Supple. Respiratory: Appears to be respiring comfortably. Neurologic: Nonfocal to gross visualization. Alert and oriented 3. Psychiatric: No evidence of inappropriate anxiety or depression. Skin: Visible areas of skin without rash, lesions, wounds or petechiae. LABS: Glucose (mg/dL) Date Value 03/26/2024 103 Potassium (mmol/L) Date Value 03/26/2024 4.2 Sodium (mmol/L) Date Value 03/26/2024 136 Chloride (mmol/L) Date Value 03/26/2024 101 CO2 (mmol/L) Date Value 03/26/2024 28 Creatinine (mg/dL) Date Value 03/26/2024 1.64 BUN (mg/dL) Date Value 03/26/2024 27 Anion Gap (mmol/L) Date Value 03/26/2024 7 Calcium, Total (mg/dL) Date Value 03/26/2024 10.2 Protein, Total (g/dL) Date Value 03/26/2024 7.0 Albumin (g/dL) Date Value 03/26/2024 4.6 Bilirubin, Total (mg/dL) Date Value 03/26/2024 0.5 Alkaline Phosphatase (U/L) Date Value 03/26/2024 74 AST (U/L) Date Value 03/26/2024 12 ALT (U/L) Date Value 03/26/2024 12 WBC Date Value Ref Range Status 03/26/2024 7.69 3.70 - 11.00 k/uL Final RBC Date Value Ref Range Status 03/26/2024 4.29 4.20 - 6.00 m/uL Final Hemoglobin Date Value Ref Range Status 03/26/2024 13.0 13.0 - 17.0 g/dL Final Hematocrit Date Value Ref Range Status 03/26/2024 37.5 (L) 39.0 - 51.0 % Final MCV Date Value Ref Range Status 03/26/2024 87.4 80.0 - 100.0 fL Final MCH Date Value Ref Range Status 03/26/2024 30.3 26.0 - 34.0 pg Final MCHC Date Value Ref Range Status 03/26/2024 34.7 30.5 - 36.0 g/dL Final RDW-CV Date Value Ref Range Status 03/26/2024 12.1 11.5 - 15.0 % Final Platelet Count Date Value Ref Range Status 03/26/2024 150 150 - 400 k/uL Final MPV Date Value Ref Range Status 03/26/2024 8.2 (L) 9.0 - 12.7 fL Final Abs Neut Date Value Ref Range Status 03/26/2024 4.83 1.45 - 7.50 k/uL Final Lymphocytes % Date Value Ref Range Status 03/26/2024 18.3 % Final Abs Lymph Date Value Ref Range Status 03/26/2024 1.41 1.00 - 4.00 k/uL Final Monocytes % Date Value Ref Range Status 03/26/2024 10.1 % Final Abs Gates Date Value Ref Range Status 03/26/2024 0.78 <0.87 k/uL Final Eosin% Date Value Ref Range Status 01/11/2023 5.0 % Final Abs Eosin Date Value Ref Range Status 03/26/2024 0.59 (H) <0.46 k/uL Final Basophils % Date Value Ref Range Status 03/26/2024 0.7 % Final Abs Baso Date Value Ref Range Status 03/26/2024 0.05 <0.11 k/uL Final PATH: L BOT mass Biopsy 10/18/2022: 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 KRAS [id number].[id number]>A 51.2% VAF, Depth 4267x, Ex2 PIK3CA [id number].[id number]>A 21.7% VAF, Depth 5015x, Ex10 PDL-1 Insufficient IMAGING: CT Neck 10/2022: PET 11/2022: 1. Neck: Intensely hypermetabolic right oropharyngeal region mass compatible with neoplastic process. Hypermetabolic right cervical lymphadenopathy suspicious for metastatic lymphadenopathy. 2. Chest: No evidence of FDG avid neoplastic process 3. Abdomen and pelvis: No evidence of FDG avid metastases Increased activity in the prostatic region correlation with PSA is suggested. 4. Skeleton: No hypermetabolic osseous lesions PET Scan 04/2023 1. NECK: * Interval resolution of intense uptake in the right tongue base. * Resolution of FDG avid cervical lymphadenopathy. 2. CHEST: * New subcentimeter right upper lobe pulmonary nodules, too small to accurately assess for FDG uptake. Differential includes infection/inflammation or metastasis. Attention on follow-up recommended. * No FDG avid lymphadenopathy. 3. ABDOMEN/PELVIS: * Similar appearance of focal FDG uptake in the left prostate gland. This is concerning for primary prostatic malignancy. Correlation with MRI prostate without and with IV contrast is recommended. * Otherwise, no FDG avid lymphadenopathy. 4. EXTREMITIES/SKELETON: * No suspicious FDG avid osseous lesion. CT Chest 07/2023: 1. Since 04/14/2023, multiple enlarging right lung nodules, suspicious for metastases. 2. No progressive lymphadenopathy. PET Scan 09/2023: 1. HEAD and NECK: No evidence of focal uptake to suggest FDG avid neoplastic process.. 2. CHEST: Right upper lobe lung nodule increased in size and metabolic activity, associated with new right hilar FDG avid hilar lymphadenopathy most suspicious for neoplastic process. Slightly more prominent nodules in the right lung with mild uptake are also seen.. 3. ABDOMEN/PELVIS: No evidence of focal uptake to suggest FDG avid neoplastic process.. 4. EXTREMITIES/SKELETON: No evidence of focal uptake to suggest FDG avid neoplastic process.. CT Scan of the Chest and Abdomen and Pelvis 11/2023: 1. Improvement in the previously seen pulmonary nodules when compared to the chest CT from 08/24/2023 and the PET/CT from 09/22/2023 as described above. There is a mild to moderately enlarged right hilar lymph node measuring 2.3 x 1.6 cm which demonstrated FDG avidity on the prior PET/CT. Comparison to the prior studies is limited due to the lack of intravenous contrast on the prior exams. However, this node appears likely to be enlarged and is suspicious for progression of metastatic adenopathy. 1. No evidence of metastatic disease in the abdomen or pelvis. 2. Enlargement of the prostate gland. Assessment and Plan: Caitlin Elmore is a 58 year old year old male here for follow up and treatment. 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 PET with response 04/2023. 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 PET reviewed withj progression of saul disease. Insufficient tumor for PDL-1 and started Carbo/Taxol and Pembro 09/2023. Post response to cycle 3 and completed 4 cycles of therapy. Then continued with Pembro only every 6 weeks. Labs reviewed and stable. Will proceed with Pembro today and return in 6 weeks. Will get restaging CT scans before his next visit. Fatigue-will check ACTH and cortisol and TSH level today 3. PET positive in the prostate and he follows urology. 4. CRI- slightly worse today, hydrate and will recheck 5. Headaches--MRI brain ordered Vanesa Gomez PA-C CC: Naty Burton MD I spent a total of 31 minutes on the date of the service which included preparing to see the patient, [id number] patient care, completing clinical documentation, performing a medically appropriate examination, counseling and educating the patient/family/caregiver, ordering medications, tests, or procedures, independently interpreting results (not separately reported), and communicating results to the patient/family/caregiver. documented in this encounter [facility] 03-12-2024 Telephone encounter Note Patient has an appt on 03/26/24. Would you like labs, if so place orders. Dorys Dutton MA [facility] 03-12-2024 Miscellaneous Notes Patient has an appt on 03/26/24. Would you like labs, if so place orders. Dorys Dutton MA documented in this encounter [facility] 01-02-2024 Note [facility] 01-02-2024 History of Present illness Narrative Images from the original note were not included. [place] PATIENT NAME: Caitlin Elmore [facility] NO.: [id number] ATTENDING PHYSICIAN: Elizabeth Borjas MD DATE OF SERVICE: January 02, 2024 Some of the elements of this note have been copied from my previous progress note dated . All the information has been reviewed carefully. Dear Dr. Carrillo referring provider defined for this encounter. Here is an update on a follow up visit on male Caitlin Elmore at the clinic December 12, 2023. Diagnosis: HPV positive BOT SCC. Treatment History: Concurrent Cisplatin and XRT 11/21/2021- XRTY completed 01/06/2023 and last dose of chemo 12/21/2022 ( Total [place] dose= 200 mg/m2). Recurrence in the Lung Biopsy proven 08/2023: PDL-1 insufficient and KRAS G12A, PIK3CA ( Targeted Oncology only due to sample). Carbo/Taxol ad Pembro 09/26/2023-12/11/2023 ( Cycle 4) With response. Pembro monotherapy. HPI: Caitlin Elmore is a 58 year old year old male here for follow up and continued treatment. He develops a cough during treatment. He denies any skin rashes. No nausea, vomiting, diarrhea or abdominal pain. He denies cough, shortness of breath and other pulmonary complaints. No fevers, chills, night sweats or signs/symptoms of infection. No bleeding or abnormal bruising. PAST MEDICAL HISTORY Diagnosis Date Hard of hearing HTN (hypertension) Hypercholesteremia Social History Tobacco Use Smoking status: Former Packs/day: 1.00 Years: 35.00 Additional pack years: 0.00 Total pack years: 35.00 Types: Cigarettes Quit date: 10/13/2022 Years since quittin.2 Passive exposure: Past Smokeless tobacco: Former Vaping Use Vaping Use: Never used Substance Use Topics Alcohol use: Yes Comment: occ Drug use: Not Currently Types: Marijuana FAMILY HISTORY Problem Relation Age of Onset Prostate Cancer Father Thyroid Cancer Sister Past medical, social and family history reviewed without any changes. REVIEW OF SYSTEMS General: No weight loss, malaise or fevers. No night sweats. HEENT: Negative for headaches, No changes in hearing or vision, no nose bleeds or other nasal problems. Respiratory: Negative for cough, wheezing and shortness of breath. Cardiovascular: Negative for chest pain, leg swelling and palpitations. GI: Negative for abdominal discomfort, blood in stools or black stools and change in bowel habits. : Negative for dysuria, frequency and incontinence. Musculoskeletal: Negative for joint pain or swelling, back pain, and muscle pain. Skin: Negative for lesions, rash and itching. Hematology/Lymphology; Negative for prolonged bleeding, bruising easily, and swollen nodes. Neuro: Negative for numbness or tingling of hands/feet. No weakness. PHYSICAL EXAMINATION: BP 136/74 Pulse 70 Temp (Src) 97.2 (Temporal) Resp 18 Ht 5' 10.866 (1.80m) Wt 204 lb (92.5kg) SpO2 98% BMI 28.56 kg/(m^2). ECOG 0 Exam limited to gross visualization where appropriate. Gen.: This is an age-appropriate patient in no acute distress. Head: Appears atraumatic with no visible lesions. Eyes: Pupils equally round and reactive to light, extraocular muscles are intact. Neck: Supple. Respiratory: Appears to be respiring comfortably. Neurologic: Nonfocal to gross visualization. Alert and oriented 3. Psychiatric: No evidence of inappropriate anxiety or depression. Skin: Visible areas of skin without rash, lesions, wounds or petechiae. LABS: Glucose (mg/dL) Date Value 01/02/2024 72 Potassium (mmol/L) Date Value 01/02/2024 4.2 Sodium (mmol/L) Date Value 01/02/2024 140 Chloride (mmol/L) Date Value 01/02/2024 104 CO2 (mmol/L) Date Value 01/02/2024 25 Creatinine (mg/dL) Date Value 01/02/2024 1.39 BUN (mg/dL) Date Value 01/02/2024 17 Anion Gap (mmol/L) Date Value 01/02/2024 11 Calcium, Total (mg/dL) Date Value 01/02/2024 10.1 Protein, Total (g/dL) Date Value 01/02/2024 7.2 Albumin (g/dL) Date Value 01/02/2024 4.8 Bilirubin, Total (mg/dL) Date Value 01/02/2024 0.5 Alkaline Phosphatase (U/L) Date Value 01/02/2024 84 AST (U/L) Date Value 01/02/2024 14 ALT (U/L) Date Value 01/02/2024 15 WBC Date Value Ref Range Status 01/02/2024 4.48 3.70 - 11.00 k/uL Final RBC Date Value Ref Range Status 01/02/2024 4.58 4.20 - 6.00 m/uL Final Hemoglobin Date Value Ref Range Status 01/02/2024 13.4 13.0 - 17.0 g/dL Final Hematocrit Date Value Ref Range Status 01/02/2024 39.2 39.0 - 51.0 % Final MCV Date Value Ref Range Status 01/02/2024 85.6 80.0 - 100.0 fL Final MCH Date Value Ref Range Status 01/02/2024 29.3 26.0 - 34.0 pg Final MCHC Date Value Ref Range Status 01/02/2024 34.2 30.5 - 36.0 g/dL Final RDW-CV Date Value Ref Range Status 01/02/2024 14.4 11.5 - 15.0 % Final Platelet Count Date Value Ref Range Status 01/02/2024 119 (L) 150 - 400 k/uL Final MPV Date Value Ref Range Status 01/02/2024 8.9 (L) 9.0 - 12.7 fL Final Abs Neut Date Value Ref Range Status 01/02/2024 2.64 1.45 - 7.50 k/uL Final Lymphocytes % Date Value Ref Range Status 01/02/2024 19.0 % Final Abs Lymph Date Value Ref Range Status 01/02/2024 0.85 (L) 1.00 - 4.00 k/uL Final Monocytes % Date Value Ref Range Status 01/02/2024 15.8 % Final Abs Gates Date Value Ref Range Status 01/02/2024 0.71 <0.87 k/uL Final Eosin% Date Value Ref Range Status 01/11/2023 5.0 % Final Abs Eosin Date Value Ref Range Status 01/02/2024 0.22 <0.46 k/uL Final Basophils % Date Value Ref Range Status 01/02/2024 0.9 % Final Abs Baso Date Value Ref Range Status 01/02/2024 0.04 <0.11 k/uL Final PATH: L BOT mass Biopsy 10/18/2022: 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 KRAS [id number].[id number]>A 51.2% VAF, Depth 4267x, Ex2 PIK3CA [id number].[id number]>A 21.7% VAF, Depth 5015x, Ex10 PDL-1 Insufficient IMAGING: CT Neck 10/2022: PET 11/2022: 1. Neck: Intensely hypermetabolic right oropharyngeal region mass compatible with neoplastic process. Hypermetabolic right cervical lymphadenopathy suspicious for metastatic lymphadenopathy. 2. Chest: No evidence of FDG avid neoplastic process 3. Abdomen and pelvis: No evidence of FDG avid metastases Increased activity in the prostatic region correlation with PSA is suggested. 4. Skeleton: No hypermetabolic osseous lesions PET Scan 04/2023 1. NECK: * Interval resolution of intense uptake in the right tongue base. * Resolution of FDG avid cervical lymphadenopathy. 2. CHEST: * New subcentimeter right upper lobe pulmonary nodules, too small to accurately assess for FDG uptake. Differential includes infection/inflammation or metastasis. Attention on follow-up recommended. * No FDG avid lymphadenopathy. 3. ABDOMEN/PELVIS: * Similar appearance of focal FDG uptake in the left prostate gland. This is concerning for primary prostatic malignancy. Correlation with MRI prostate without and with IV contrast is recommended. * Otherwise, no FDG avid lymphadenopathy. 4. EXTREMITIES/SKELETON: * No suspicious FDG avid osseous lesion. CT Chest 07/2023: 1. Since 04/14/2023, multiple enlarging right lung nodules, suspicious for metastases. 2. No progressive lymphadenopathy. PET Scan 09/2023: 1. HEAD and NECK: No evidence of focal uptake to suggest FDG avid neoplastic process.. 2. CHEST: Right upper lobe lung nodule increased in size and metabolic activity, associated with new right hilar FDG avid hilar lymphadenopathy most suspicious for neoplastic process. Slightly more prominent nodules in the right lung with mild uptake are also seen.. 3. ABDOMEN/PELVIS: No evidence of focal uptake to suggest FDG avid neoplastic process.. 4. EXTREMITIES/SKELETON: No evidence of focal uptake to suggest FDG avid neoplastic process.. CT Scan of the Chest and Abdomen and Pelvis 11/2023: 1. Improvement in the previously seen pulmonary nodules when compared to the chest CT from 08/24/2023 and the PET/CT from 09/22/2023 as described above. There is a mild to moderately enlarged right hilar lymph node measuring 2.3 x 1.6 cm which demonstrated FDG avidity on the prior PET/CT. Comparison to the prior studies is limited due to the lack of intravenous contrast on the prior exams. However, this node appears likely to be enlarged and is suspicious for progression of metastatic adenopathy. 1. No evidence of metastatic disease in the abdomen or pelvis. 2. Enlargement of the prostate gland. Assessment and Plan: Caitlin Elmore is a 58 year old year old male here for follow up and treatment. 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 PET with response 04/2023. 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 PET reviewed withj progression of saul disease. Insufficient tumor for PDL-1 and will start Carbo/Taxol and Pembro today. Discussed adverse events and also IRAE and he agrees and Started Carbo/Taxol and Pembro 09/26/2023. Post response to cycle 3 and here for cycle 4 of therapy. Will drop chemo and in 3 weeks he has elected for q 6 weeks Pembro. 2. PET positive in the prostate and he follows urology. 3. CRI- Stable. Treatment today. Will change pembrolizumab to every 6 weeks. See back in 3 weeks for chemo and will switch pembro to q 6 weeks Thank you for the kind referral. If there are any questions and or concerns please do not hesitate to contact Janusz Baugh [phone]. Celestina Hallman APRN.SIGNAL ENGINEER Hematology/Medical Oncology [facility] CC: Naty Burton MD I spent a total of 30 minutes on the date of the service which included preparing to see the patient, [id number] patient care, completing clinical documentation, obtaining and/or reviewing separately obtained history, performing a medically appropriate examination, counseling and educating the patient/family/caregiver, ordering medications, tests, or procedures, independently interpreting results (not separately reported), and communicating results to the patient/family/caregiver. documented in this encounter [facility] 12-13-2023 Miscellaneous Notes Pt notified and would like the script to go to [facility] in [place]. Please sign pending script Chiqui Modi RN ----- Message from Elizabeth Borjas MD sent at 12/12/2023 8:11 PM EST ----- Please have patientstart synthroid at 50 mcg/day documented in this encounter [facility] 12-12-2023 Note [facility] 12-12-2023 History of Present illness Narrative Images from the original note were not included. [place] [id number] ATTENDING PHYSICIAN: Elizabeth Borjas MD DATE OF SERVICE: December 12, 2023 Some of the elements of this note have been copied from my previous progress note dated . All the information has been reviewed carefully. Dear Dr. Carrillo referring provider defined for this encounter. here is an update on a follow up visit on male Caitlin Elmore at the clinic December 12, 2023 Diagnosis: HPV positive BOT SCC Treatment History: Concurrent Cisplatin and XRT 11/21/2021- XRTY completed 01/06/2023 and last dose of chemo 12/21/2022 ( Total [place] dose= 200 mg/m2) Recurrence in the Lung Biopsy proven 08/2023: PDL-1 insufficient and KRAS G12A, PIK3CA ( Targeted Oncology only due to sample) Carbo/Taxol ad Pembro 09/26/2023-12/11/2023 ( Cycle 4) With response, Pembro monotherapy HPI: Caitlin Elmore is a 58 year old year old male here for follow up. Doing well outside of mild arthralgia. Denies any nausea and or abdominal pain and or diarrhea. Denies any skin rash an xor cough PAST MEDICAL HISTORY Diagnosis Date Hard of hearing HTN (hypertension) Hypercholesteremia Social History Tobacco Use Smoking status: Former Packs/day: 1.00 Years: 35.00 Additional pack years: 0.00 Total pack years: 35.00 Types: Cigarettes Quit date: 10/13/2022 Years since quittin.1 Passive exposure: Past Smokeless tobacco: Former Vaping Use Vaping Use: Never used Substance Use Topics Alcohol use: Yes Comment: occ Drug use: Not Currently Types: Marijuana FAMILY HISTORY Problem Relation Age of Onset Prostate Cancer Father Thyroid Cancer Sister Past medical, social and family history reviewed without any changes. REVIEW OF SYSTEMS GENERAL: No weight loss, malaise or fevers. No night sweats. HEENT: Negative for headaches, No changes in hearing or vision, no nose bleeds or other nasal problems. RESPIRATORY: Negative for cough, wheezing and shortness of breath CARDIOVASCULAR: Negative for chest pain, leg swelling and palpitations GI: Negative for abdominal discomfort, blood in stools or black stools and change in bowel habits : Negative for dysuria, frequency and incontinence MUSCULOSKELETAL: Negative for joint pain or swelling, back pain, and muscle pain. SKIN: Negative for lesions, rash, and itching. HEMATOLOGY/LYMPHOLOGY Negative for prolonged bleeding, bruising easily, and swollen nodes. NEURO: Negative for numbness or tingling of hands/feet. No weakness. PHYSICAL EXAMINATION: BP 132/77 Pulse 66 Temp (Src) 98.1 (Temporal) Resp 16 Ht 5' 10.866 (1.80m) Wt 208 lb 15.9 oz (94.8kg) SpO2 99% BMI 29.26 kg/(m^2). Wt 90.4 kg (199 lb 6.4 oz) BMI 26.54 kg/m2 Last 3 Encounter Wt Readings: Date: Wt: 11/29/2022 90.4 kg (199 lb 6.4 oz) 11/28/2022 88.9 kg (196 lb) 11/21/2022 92.1 kg (203 lb) General appearance:ECOG PERFORMANCE STATUS: 1- Restricted in physically strenuous activity. Carries out light duty. Patient in NAD. Skin: Skin color, texture, turgor normal. No rashes or lesions. Eyes: Anicteric sclera. Pupils are equally round and reactive to light. Extraocular movements are intact. Lymph Nodes: Cervical node on the L decreased in size Oropharynx: Lips, mucosa, and tongue normal. Back: No pain to percussion. Negative SLR test Lungs clear to auscultation, No wheezing or rhonchi Heart: RRR without murmur, gallop, or rubs. Abdomen soft, non-tender. No masses, organomegaly Extremities: No deformities. No edema Neuro: Gait and speech normal. Reflexes normal and symmetric. Muscular strength intact. Sensation grossly intact. Rectal: Deferred : Deferred LABS: Glucose (mg/dL) Date Value 12/12/2023 113 Potassium (mmol/L) Date Value 12/12/2023 4.3 Sodium (mmol/L) Date Value 12/12/2023 142 Chloride (mmol/L) Date Value 12/12/2023 105 CO2 (mmol/L) Date Value 12/12/2023 26 Creatinine (mg/dL) Date Value 12/12/2023 1.37 BUN (mg/dL) Date Value 12/12/2023 20 Anion Gap (mmol/L) Date Value 12/12/2023 11 Calcium, Total (mg/dL) Date Value 12/12/2023 9.9 Protein, Total (g/dL) Date Value 12/12/2023 7.1 Albumin (g/dL) Date Value 12/12/2023 4.6 Bilirubin, Total (mg/dL) Date Value 12/12/2023 0.4 Alkaline Phosphatase (U/L) Date Value 12/12/2023 83 AST (U/L) Date Value 12/12/2023 16 ALT (U/L) Date Value 12/12/2023 16 WBC Date Value Ref Range Status 12/12/2023 4.67 3.70 - 11.00 k/uL Final RBC Date Value Ref Range Status 12/12/2023 4.46 4.20 - 6.00 m/uL Final Hemoglobin Date Value Ref Range Status 12/12/2023 13.2 13.0 - 17.0 g/dL Final Hematocrit Date Value Ref Range Status 12/12/2023 38.8 (L) 39.0 - 51.0 % Final MCV Date Value Ref Range Status 12/12/2023 87.0 80.0 - 100.0 fL Final MCH Date Value Ref Range Status 12/12/2023 29.6 26.0 - 34.0 pg Final MCHC Date Value Ref Range Status 12/12/2023 34.0 30.5 - 36.0 g/dL Final RDW-CV Date Value Ref Range Status 12/12/2023 15.0 11.5 - 15.0 % Final Platelet Count Date Value Ref Range Status 12/12/2023 144 (L) 150 - 400 k/uL Final MPV Date Value Ref Range Status 12/12/2023 7.8 (L) 9.0 - 12.7 fL Final Abs Neut Date Value Ref Range Status 12/12/2023 3.04 1.45 - 7.50 k/uL Final Lymphocytes % Date Value Ref Range Status 12/12/2023 17.1 % Final Abs Lymph Date Value Ref Range Status 12/12/2023 0.80 (L) 1.00 - 4.00 k/uL Final Monocytes % Date Value Ref Range Status 12/12/2023 10.7 % Final Abs Gates Date Value Ref Range Status 12/12/2023 0.50 <0.87 k/uL Final Eosin% Date Value Ref Range Status 01/11/2023 5.0 % Final Abs Eosin Date Value Ref Range Status 12/12/2023 0.28 <0.46 k/uL Final Basophils % Date Value Ref Range Status 12/12/2023 0.9 % Final Abs Baso Date Value Ref Range Status 12/12/2023 0.04 <0.11 k/uL Final PATH: L BOT mass Biopsy 10/18/2022: 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 KRAS [id number].[id number]>A 51.2% VAF, Depth 4267x, Ex2 PIK3CA [id number].[id number]>A 21.7% VAF, Depth 5015x, Ex10 PDL-1 Insufficient IMAGING: CT Neck 10/2022: PET 11/2022: 1. Neck: Intensely hypermetabolic right oropharyngeal region mass compatible with neoplastic process. Hypermetabolic right cervical lymphadenopathy suspicious for metastatic lymphadenopathy. 2. Chest: No evidence of FDG avid neoplastic process 3. Abdomen and pelvis: No evidence of FDG avid metastases Increased activity in the prostatic region correlation with PSA is suggested. 4. Skeleton: No hypermetabolic osseous lesions PET Scan 04/2023 1. NECK: * Interval resolution of intense uptake in the right tongue base. * Resolution of FDG avid cervical lymphadenopathy. 2. CHEST: * New subcentimeter right upper lobe pulmonary nodules, too small to accurately assess for FDG uptake. Differential includes infection/inflammation or metastasis. Attention on follow-up recommended. * No FDG avid lymphadenopathy. 3. ABDOMEN/PELVIS: * Similar appearance of focal FDG uptake in the left prostate gland. This is concerning for primary prostatic malignancy. Correlation with MRI prostate without and with IV contrast is recommended. * Otherwise, no FDG avid lymphadenopathy. 4. EXTREMITIES/SKELETON: * No suspicious FDG avid osseous lesion. CT Chest 07/2023: 1. Since 04/14/2023, multiple enlarging right lung nodules, suspicious for metastases. 2. No progressive lymphadenopathy. PET Scan 09/2023: 1. HEAD and NECK: No evidence of focal uptake to suggest FDG avid neoplastic process.. 2. CHEST: Right upper lobe lung nodule increased in size and metabolic activity, associated with new right hilar FDG avid hilar lymphadenopathy most suspicious for neoplastic process. Slightly more prominent nodules in the right lung with mild uptake are also seen.. 3. ABDOMEN/PELVIS: No evidence of focal uptake to suggest FDG avid neoplastic process.. 4. EXTREMITIES/SKELETON: No evidence of focal uptake to suggest FDG avid neoplastic process.. CT Scan of the Chest and Abdomen and Pelvis 11/2023: 1. Improvement in the previously seen pulmonary nodules when compared to the chest CT from 08/24/2023 and the PET/CT from 09/22/2023 as described above. There is a mild to moderately enlarged right hilar lymph node measuring 2.3 x 1.6 cm which demonstrated FDG avidity on the prior PET/CT. Comparison to the prior studies is limited due to the lack of intravenous contrast on the prior exams. However, this node appears likely to be enlarged and is suspicious for progression of metastatic adenopathy. 1. No evidence of metastatic disease in the abdomen or pelvis. 2. Enlargement of the prostate gland. Assessment and Plan: Caitlin Elmore is a 58 year old year old male here for follow up. 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 PET with response 04/2023. 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 PET reviewed withj progression of saul disease. Insufficient tumor for PDL-1 and will start Carbo/Taxol and Pembro today. Discussed adverse events and also IRAE and he agrees and Started Carbo/Taxol and Pembro 09/26/2023. Post response to cycle 3 and here for cycle 4 of therapy. Will drop chemo and in 3 weeks he has elected for q 6 weeks Pembro. 2. PET positive in the prostate and he follows urology 3. CRI- Stable See back in 3 weeks for chemo and will switch pembro to q 6 weeks Thank you for the kind referral. If there are any questions and or concerns please do not hesitate to contact me at [phone]. Elizabeth Borjas MD Hematology/Medical Oncology [facility] spent a total of 30 minutes on the date of the service which included preparing to see the patient, [id number] patient care, completing clinical documentation, obtaining and/or reviewing separately obtained history, performing a medically appropriate examination, counseling and educating the patient/family/caregiver, and ordering medications, tests, or procedures. CC: Naty Burton MD documented in this encounter [facility] 12-08-2023 Note [facility] 12-08-2023 Note [facility] 11-17-2023 History of Present illness Narrative Subjective Patient ID: Олег Elmore is a 58 y.o. male who presents for Cancer (1 month check) Review of Systems All other systems reviewed and are negative. 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) 02/24/2023 Squamous cell cancer of tongue (CMS/HCC) 02/24/2023 Hypertension (CMS/HCC) 02/24/2023 Hearing loss 04/09/2023 Acute swimmer's ear of right side 05/12/2023 Resolved Ambulatory Problems Diagnosis Date Noted Mass of neck 02/24/2023 Adenomatous polyp of colon 04/09/2023 Arthritis 04/09/2023 Asymptomatic microscopic hematuria 04/09/2023 Benign prostatic hyperplasia with urinary obstruction 04/09/2023 Family history of malignant neoplasm of prostate 04/09/2023 High prostate specific antigen (PSA) 04/09/2023 Hyperlipidemia (CMS/HCC) 04/09/2023 Poor urinary stream 04/09/2023 Severe protein-calorie malnutrition (CMS/HCC) 12/19/2022 Past Medical History: Diagnosis Date BPH (benign prostatic hyperplasia) Colon polyp Ear problems 1973 HL (hearing loss) 1973 Mass in neck Nocturia Personal history of irradiation [id number] Tongue cancer (CMS/HCC) Past Surgical History: Procedure Laterality Date ADENOIDECTOMY 1975 LARYNGOSCOPY 10/18/2022 w/ biopsy, Timmis MASTOID SURGERY TONSILLECTOMY 1972 TYMPANOSTOMY TUBE PLACEMENT 1973 No Known Allergies Current Outpatient Medications on File Prior to Visit Medication Sig Dispense Refill amLODIPine (Norvasc) 10 MG tablet Take 10 mg by mouth in the morning. lisinopril 40 MG tablet Take 40 mg by mouth in the morning. pravastatin (Pravachol) 20 MG tablet Take 20 mg by mouth in the morning. tamsulosin (Flomax) 0.4 MG 24 hr capsule Take 0.4 mg by mouth in the morning. No current facility-administered medications on file prior to visit. 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 Monthly appts till 10/2024 documented in this encounter [facility] 11-15-2023 Telephone encounter Note Please sign pended Cre for upcoming CT-pt on nephrotoxic chemo. Thank You! Julia Braswell RN [facility] 11-15-2023 Miscellaneous Notes Please sign pended Cre for upcoming CT-pt on nephrotoxic chemo. Thank You! Julia Braswell RN documented in this encounter [facility] 11-14-2023 Note [facility] 11-14-2023 History of Present illness Narrative Images from the original note were not included. [employer] PATIENT NAME: Caitlin Elmore [facility] NO.: [id number] ATTENDING PHYSICIAN: Elizabeth Borjas MD DATE OF SERVICE: November 14, 2023 Some of the elements of this note have been copied from my previous progress note dated 09/26/2023. All the information has been reviewed carefully. Dear Dr. Carrillo referring provider defined for this encounter. here is an update on a follow up visit on male Caitlin Elmore at the clinic November 14, 2023 Diagnosis: HPV positive BOT SCC Treatment History: Concurrent Cisplatin and XRT 11/21/2021- XRTY completed 01/06/2023 and last dose of chemo 12/21/2022 ( Total [place] dose= 200 mg/m2) Recurrence in the Lung Biopsy proven 08/2023: PDL-1 insufficient and KRAS G12A, PIK3CA ( Targeted Oncology only due to sample) Carbo/Taxol ad Pembro 09/26/2023 HPI: Caitlin Elmore is a 58 year old year old male here for follow up. He has tolerated therapy well and denies any fevers and or chills. Denies any SOB and or cough and or diarrhea. Also denies any rashes. Denies any neuropathy as well. Going to a [place] next week, PAST MEDICAL HISTORY Diagnosis Date Hard of hearing HTN (hypertension) Hypercholesteremia Social History Tobacco Use Smoking status: Former Packs/day: 1.00 Years: 35.00 Additional pack years: 0.00 Total pack years: 35.00 Types: Cigarettes Quit date: 10/13/2022 Years since quittin.0 Passive exposure: Past Smokeless tobacco: Former Vaping Use Vaping Use: Never used Substance Use Topics Alcohol use: Yes Comment: occ Drug use: Not Currently Types: Marijuana FAMILY HISTORY Problem Relation Age of Onset Prostate Cancer Father Thyroid Cancer Sister Past medical, social and family history reviewed without any changes. REVIEW OF SYSTEMS GENERAL: No weight loss, malaise or fevers. No night sweats. HEENT: Negative for headaches, No changes in hearing or vision, no nose bleeds or other nasal problems. RESPIRATORY: Negative for cough, wheezing and shortness of breath CARDIOVASCULAR: Negative for chest pain, leg swelling and palpitations GI: Negative for abdominal discomfort, blood in stools or black stools and change in bowel habits : Negative for dysuria, frequency and incontinence MUSCULOSKELETAL: Negative for joint pain or swelling, back pain, and muscle pain. SKIN: Negative for lesions, rash, and itching. HEMATOLOGY/LYMPHOLOGY Negative for prolonged bleeding, bruising easily, and swollen nodes. NEURO: Negative for numbness or tingling of hands/feet. No weakness. PHYSICAL EXAMINATION: BP 135/76 Pulse 66 Temp (Src) 98.3 (Temporal) Resp 16 Ht 5' 10.866 (1.80m) Wt 200 lb 13.4 oz (91.1kg) SpO2 97% BMI 28.12 kg/(m^2). Wt 90.4 kg (199 lb 6.4 oz) BMI 26.54 kg/m2 Last 3 Encounter Wt Readings: Date: Wt: 11/29/2022 90.4 kg (199 lb 6.4 oz) 11/28/2022 88.9 kg (196 lb) 11/21/2022 92.1 kg (203 lb) General appearance:ECOG PERFORMANCE STATUS: 1- Restricted in physically strenuous activity. Carries out light duty. Patient in NAD. Skin: Skin color, texture, turgor normal. No rashes or lesions. Eyes: Anicteric sclera. Pupils are equally round and reactive to light. Extraocular movements are intact. Lymph Nodes: Cervical node on the L decreased in size Oropharynx: Lips, mucosa, and tongue normal. Back: No pain to percussion. Negative SLR test Lungs clear to auscultation, No wheezing or rhonchi Heart: RRR without murmur, gallop, or rubs. Abdomen soft, non-tender. No masses, organomegaly Extremities: No deformities. No edema Neuro: Gait and speech normal. Reflexes normal and symmetric. Muscular strength intact. Sensation grossly intact. Rectal: Deferred : Deferred LABS: Glucose (mg/dL) Date Value 10/20/2023 107 Potassium (mmol/L) Date Value 10/20/2023 4.7 Sodium (mmol/L) Date Value 10/20/2023 139 Chloride (mmol/L) Date Value 10/20/2023 105 CO2 (mmol/L) Date Value 10/20/2023 26 Creatinine (mg/dL) Date Value 10/20/2023 1.35 BUN (mg/dL) Date Value 10/20/2023 17 Anion Gap (mmol/L) Date Value 10/20/2023 8 Calcium, Total (mg/dL) Date Value 10/20/2023 9.9 Protein, Total (g/dL) Date Value 10/20/2023 7.2 Albumin (g/dL) Date Value 10/20/2023 4.5 Bilirubin, Total (mg/dL) Date Value 10/20/2023 0.2 Alkaline Phosphatase (U/L) Date Value 10/20/2023 105 AST (U/L) Date Value 10/20/2023 13 ALT (U/L) Date Value 10/20/2023 13 WBC Date Value Ref Range Status 11/14/2023 5.12 3.70 - 11.00 k/uL Final RBC Date Value Ref Range Status 11/14/2023 4.77 4.20 - 6.00 m/uL Final Hemoglobin Date Value Ref Range Status 11/14/2023 13.7 13.0 - 17.0 g/dL Final Hematocrit Date Value Ref Range Status 11/14/2023 40.4 39.0 - 51.0 % Final MCV Date Value Ref Range Status 11/14/2023 84.7 80.0 - 100.0 fL Final MCH Date Value Ref Range Status 11/14/2023 28.7 26.0 - 34.0 pg Final MCHC Date Value Ref Range Status 11/14/2023 33.9 30.5 - 36.0 g/dL Final RDW-CV Date Value Ref Range Status 11/14/2023 13.7 11.5 - 15.0 % Final Platelet Count Date Value Ref Range Status 11/14/2023 156 150 - 400 k/uL Final MPV Date Value Ref Range Status 11/14/2023 8.1 (L) 9.0 - 12.7 fL Final Abs Neut Date Value Ref Range Status 11/14/2023 3.22 1.45 - 7.50 k/uL Final Lymphocytes % Date Value Ref Range Status 11/14/2023 19.3 % Final Abs Lymph Date Value Ref Range Status 11/14/2023 0.99 (L) 1.00 - 4.00 k/uL Final Monocytes % Date Value Ref Range Status 11/14/2023 12.3 % Final Abs Gates Date Value Ref Range Status 11/14/2023 0.63 <0.87 k/uL Final Eosin% Date Value Ref Range Status 01/11/2023 5.0 % Final Abs Eosin Date Value Ref Range Status 11/14/2023 0.21 <0.46 k/uL Final Basophils % Date Value Ref Range Status 11/14/2023 1.0 % Final Abs Baso Date Value Ref Range Status 11/14/2023 0.05 <0.11 k/uL Final PATH: L BOT mass Biopsy 10/18/2022: 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 KRAS [id number].[id number]>A 51.2% VAF, Depth 4267x, Ex2 PIK3CA [id number]>A 21.7% VAF, Depth 5015x, Ex10 PDL-1 Insufficient IMAGING: CT Neck 10/2022: PET 11/2022: 1. Neck: Intensely hypermetabolic right oropharyngeal region mass compatible with neoplastic process. Hypermetabolic right cervical lymphadenopathy suspicious for metastatic lymphadenopathy. 2. Chest: No evidence of FDG avid neoplastic process 3. Abdomen and pelvis: No evidence of FDG avid metastases Increased activity in the prostatic region correlation with PSA is suggested. 4. Skeleton: No hypermetabolic osseous lesions PET Scan 04/2023 1. NECK: * Interval resolution of intense uptake in the right tongue base. * Resolution of FDG avid cervical lymphadenopathy. 2. CHEST: * New subcentimeter right upper lobe pulmonary nodules, too small to accurately assess for FDG uptake. Differential includes infection/inflammation or metastasis. Attention on follow-up recommended. * No FDG avid lymphadenopathy. 3. ABDOMEN/PELVIS: * Similar appearance of focal FDG uptake in the left prostate gland. This is concerning for primary prostatic malignancy. Correlation with MRI prostate without and with IV contrast is recommended. * Otherwise, no FDG avid lymphadenopathy. 4. EXTREMITIES/SKELETON: * No suspicious FDG avid osseous lesion. CT Chest 07/2023: 1. Since 04/14/2023, multiple enlarging right lung nodules, suspicious for metastases. 2. No progressive lymphadenopathy. PET Scan 09/2023: 1. HEAD and NECK: No evidence of focal uptake to suggest FDG avid neoplastic process.. 2. CHEST: Right upper lobe lung nodule increased in size and metabolic activity, associated with new right hilar FDG avid hilar lymphadenopathy most suspicious for neoplastic process. Slightly more prominent nodules in the right lung with mild uptake are also seen.. 3. ABDOMEN/PELVIS: No evidence of focal uptake to suggest FDG avid neoplastic process.. 4. EXTREMITIES/SKELETON: No evidence of focal uptake to suggest FDG avid neoplastic process.. Assessment and Plan: Caitlin Elmore is a 58 year old year old male here for follow up. 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 PET with response 04/2023. 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 PET reviewed withj progression of saul disease. Insufficient tumor for PDL-1 and will start Carbo/Taxol and Pembro today. Discussed adverse events and also IRAE and he agrees and Started Carbo/Taxol and Pembro 09/26/2023. He is here for cycle 3 and will plan on imaging after this cycle to assess response 2. PET positive in the prostate and he follows urology 3. CRI- Stable See back in 3 weeks for chemo and also repeat imaging Thank you for the kind referral. If there are any questions and or concerns please do not hesitate to contact me at [phone]. Elizabeth Borjas MD Hematology/Medical Oncology [facility] spent a total of 30 minutes on the date of the service which included preparing to see the patient, [id number] patient care, completing clinical documentation, obtaining and/or reviewing separately obtained history, performing a medically appropriate examination, counseling and educating the patient/family/caregiver, and ordering medications, tests, or procedures. CC: Naty Burton MD documented in this encounter [facility] 10-20-2023 Note [facility] 09-26-2023 Note [facility] 09-26-2023 History of Present illness Narrative ONCOLOGY PATIENT EDUCATION NOTE TOPIC: Chemotherapy Immunotherapy, Medications: carboplatin, taxol, pembrolizumab READINESS TO LEARN: COGNITIVE ABILITY: Alert and oriented MOTIVATION TO LEARN: Interested FAMILY SUPPORT: High - Very involved in pt care INSTRUCTION PROVIDED TO: Patient and Spouse INSTRUCTION PROVIDED BY: Nurse Coordinator PATIENT LEARNS BEST BY: Multiple Methods FACTORS AFFECTING LEARNING: None PHYSICAL LIMITATIONS AFFECTING LEARNING: None LEARNING RESPONSE DIAGNOSIS: oropharyngeal cancer METHOD OF INSTRUCTION: Individual instruction Written instruction - handouts Verbal instruction PATIENT/FAMILY RESPONSE: Verbalizes understanding of: CHEMOTHERAPY-Regimen, toxicity and side effects INFECTION MANAGEMENT-Signs and symptoms of an infection and importance of contacting the physician MEDICAL REGIMEN-Importance of following prescribed medical regimen MEDICATION PRESCRIBED-Accurate knowledge of prescribed medication prior to discharge MEDICATION ROUTE-Correct route for administration of the prescribed medication MEDICATION SIDE EFFECTS-Side effects associated with the medication that warrant a call to the physician PATIENT SAFETY PRINCIPLES SYMPTOM MANAGEMENT-Correct actions to take to manage symptoms associated with his/her disease/illness WORSENING CONDITION-Signs and symptoms of a worsening condition that warrant a call to the physician Information received as demonstrated by interest and questions FOLLOW UP PLAN: Patient instructed to call with any further issues Recommend - Recommend continued instruction and follow up as directed Follow up phone call. Contact information given. SUPPLEMENTAL MATERIAL: Written material was provided at this visit with the following information: - Chemotherapy Immunotherapy education was provided by a pharmacist NO teams message sent to pharmacy pool but no one showed up to education. - Side effect management information was provided/discussed including but not limited to: abdominal discomfort, anemia, appetite changes, arthralgia, bowel habit changes, chest pain, diet, electrolyte disturbances, fatigue, fluid retention, hair loss, headache, hypersensitivity reaction, infection, kidney toxicity, myalgia, nausea/vomitting, neutropenia, peripheral neuropathy, rash, risk for DVT, shortness of breath, skin changes, taste changes, thrombocytopenia, pneumonitis, gastritis, colitis, hepatitis, thyroiditis YES - Provided important phone numbers and contacts during and after hours. YES - Provided information on symptoms that require immediate assistance. YES - Provided Chemotherapy Immunotherapy when to call handouts YES - Preventing infection. YES - Treatment schedule and confirmation of appointment times. YES - Available support groups. NA - The importance of contraception during the course of chemotherapy NA - Neutropenic fever protocol discussed with patient, which included the importance of reporting any fever of 100.4F (38.0C) or greater to the healthcare team as noted on the provided wallet card and/or magnet. YES - Pt has antiemetics at home if needed -Pt has My [employer] binder at home from previous education Time Spent: 20 minutes REFERRAL (RECOMMENDATION): N/A Chiqui Modi RN documented in this encounter [facility] 09-26-2023 Note [facility] 09-26-2023 History of Present illness Narrative Images from the original note were not included. Antonio PATIENT NAME: Caitlin Elmore CLINIC NO.: [id number] ATTENDING PHYSICIAN: Elizabeth Borjas MD DATE OF SERVICE: September 26, 2023 Some of the elements of this note have been copied from my previous progress note dated 09/06/2023. All the information has been reviewed carefully. Dear Dr. Carrillo referring provider defined for this encounter. here is an update on a follow up visit on male Caitlin Elmore at the clinic September 26, 2023 Diagnosis: HPV positive BOT SCC Treatment History: Concurrent Cisplatin and XRT 11/21/2021- XRTY completed 01/06/2023 and last dose of chemo 12/21/2022 ( Total [place] dose= 200 mg/m2) Recurrence in the Lung Biopsy proven 08/2023: PDL-1 insufficient and KRAS G12A, PIK3CA ( Targeted Oncology only due to sample) HPI: Caitlin Elmore is a 58 year old year old male here for follow up. He is feeling well and denies any fevers and or chills. His case was discussed at the Pulmonary [facility] and the consensus was systemic therapy at this time PAST MEDICAL HISTORY Diagnosis Date Hard of hearing HTN (hypertension) Hypercholesteremia Social History Tobacco Use Smoking status: Former Packs/day: 1.00 Years: 35.00 Additional pack years: 0.00 Total pack years: 35.00 Types: Cigarettes Quit date: 10/13/2022 Years since quittin.9 Passive exposure: Past Smokeless tobacco: Former Vaping Use Vaping Use: Never used Substance Use Topics Alcohol use: Yes Comment: occ Drug use: Not Currently Types: Marijuana FAMILY HISTORY Problem Relation Age of Onset Prostate Cancer Father Thyroid Cancer Sister Past medical, social and family history reviewed without any changes. REVIEW OF SYSTEMS GENERAL: No weight loss, malaise or fevers. No night sweats. HEENT: Negative for headaches, No changes in hearing or vision, no nose bleeds or other nasal problems. RESPIRATORY: Negative for cough, wheezing and shortness of breath CARDIOVASCULAR: Negative for chest pain, leg swelling and palpitations GI: Negative for abdominal discomfort, blood in stools or black stools and change in bowel habits : Negative for dysuria, frequency and incontinence MUSCULOSKELETAL: Negative for joint pain or swelling, back pain, and muscle pain. SKIN: Negative for lesions, rash, and itching. HEMATOLOGY/LYMPHOLOGY Negative for prolonged bleeding, bruising easily, and swollen nodes. NEURO: Negative for numbness or tingling of hands/feet. No weakness. PHYSICAL EXAMINATION: BP 146/77 Pulse 60 Temp (Src) 97.8 (Temporal) Resp 16 Ht 5' 10.866 [verified by 2 caregivers. no shoes[ (1.80m) Wt 194 lb 3.6 oz (88.1kg) SpO2 98% BMI 27.19 kg/(m^2). Wt 90.4 kg (199 lb 6.4 oz) BMI 26.54 kg/m2 Last 3 Encounter Wt Readings: Date: Wt: 11/29/2022 90.4 kg (199 lb 6.4 oz) 11/28/2022 88.9 kg (196 lb) 11/21/2022 92.1 kg (203 lb) General appearance:ECOG PERFORMANCE STATUS: 1- Restricted in physically strenuous activity. Carries out light duty. Patient in NAD. Skin: Skin color, texture, turgor normal. No rashes or lesions. Eyes: Anicteric sclera. Pupils are equally round and reactive to light. Extraocular movements are intact. Lymph Nodes: Cervical node on the L decreased in size Oropharynx: Lips, mucosa, and tongue normal. Back: No pain to percussion. Negative SLR test Lungs clear to auscultation, No wheezing or rhonchi Heart: RRR without murmur, gallop, or rubs. Abdomen soft, non-tender. No masses, organomegaly Extremities: No deformities. No edema Neuro: Gait and speech normal. Reflexes normal and symmetric. Muscular strength intact. Sensation grossly intact. Rectal: Deferred : Deferred LABS: Glucose (mg/dL) Date Value 07/25/2023 128 Potassium (mmol/L) Date Value 07/25/2023 4.1 Sodium (mmol/L) Date Value 07/25/2023 138 Chloride (mmol/L) Date Value 07/25/2023 101 CO2 (mmol/L) Date Value 07/25/2023 26 Creatinine (mg/dL) Date Value 07/25/2023 1.66 BUN (mg/dL) Date Value 07/25/2023 24 Anion Gap (mmol/L) Date Value 07/25/2023 11 Calcium, Total (mg/dL) Date Value 07/25/2023 10.8 Protein, Total (g/dL) Date Value 07/25/2023 6.9 Albumin (g/dL) Date Value 07/25/2023 4.7 Bilirubin, Total (mg/dL) Date Value 07/25/2023 0.3 Alkaline Phosphatase (U/L) Date Value 07/25/2023 82 AST (U/L) Date Value 07/25/2023 15 ALT (U/L) Date Value 07/25/2023 15 WBC Date Value Ref Range Status 09/26/2023 5.13 3.70 - 11.00 k/uL Final RBC Date Value Ref Range Status 09/26/2023 5.12 4.20 - 6.00 m/uL Final Hemoglobin Date Value Ref Range Status 09/26/2023 14.7 13.0 - 17.0 g/dL Final Hematocrit Date Value Ref Range Status 09/26/2023 42.3 39.0 - 51.0 % Final MCV Date Value Ref Range Status 09/26/2023 82.6 80.0 - 100.0 fL Final MCH Date Value Ref Range Status 09/26/2023 28.7 26.0 - 34.0 pg Final MCHC Date Value Ref Range Status 09/26/2023 34.8 30.5 - 36.0 g/dL Final RDW-CV Date Value Ref Range Status 09/26/2023 12.4 11.5 - 15.0 % Final Platelet Count Date Value Ref Range Status 09/26/2023 185 150 - 400 k/uL Final MPV Date Value Ref Range Status 09/26/2023 8.3 (L) 9.0 - 12.7 fL Final Abs Neut Date Value Ref Range Status 09/26/2023 3.37 1.45 - 7.50 k/uL Final Lymphocytes % Date Value Ref Range Status 09/26/2023 18.9 % Final Abs Lymph Date Value Ref Range Status 09/26/2023 0.97 (L) 1.00 - 4.00 k/uL Final Monocytes % Date Value Ref Range Status 09/26/2023 10.3 % Final Abs Gates Date Value Ref Range Status 09/26/2023 0.53 <0.87 k/uL Final Eosinophils % Date Value Ref Range Status 09/26/2023 4.1 % Final Abs Eosin Date Value Ref Range Status 09/26/2023 0.21 <0.46 k/uL Final Basophils % Date Value Ref Range Status 09/26/2023 0.8 % Final Abs Baso Date Value Ref Range Status 09/26/2023 0.04 <0.11 k/uL Final PATH: L BOT mass Biopsy 10/18/2022: 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 KRAS [id number].[id number]>A 51.2% VAF, Depth 4267x, Ex2 PIK3CA [id number]>A 21.7% VAF, Depth 5015x, Ex10 PDL-1 Insufficient IMAGING: CT Neck 10/2022: PET 11/2022: 1. Neck: Intensely hypermetabolic right oropharyngeal region mass compatible with neoplastic process. Hypermetabolic right cervical lymphadenopathy suspicious for metastatic lymphadenopathy. 2. Chest: No evidence of FDG avid neoplastic process 3. Abdomen and pelvis: No evidence of FDG avid metastases Increased activity in the prostatic region correlation with PSA is suggested. 4. Skeleton: No hypermetabolic osseous lesions PET Scan 04/2023 1. NECK: * Interval resolution of intense uptake in the right tongue base. * Resolution of FDG avid cervical lymphadenopathy. 2. CHEST: * New subcentimeter right upper lobe pulmonary nodules, too small to accurately assess for FDG uptake. Differential includes infection/inflammation or metastasis. Attention on follow-up recommended. * No FDG avid lymphadenopathy. 3. ABDOMEN/PELVIS: * Similar appearance of focal FDG uptake in the left prostate gland. This is concerning for primary prostatic malignancy. Correlation with MRI prostate without and with IV contrast is recommended. * Otherwise, no FDG avid lymphadenopathy. 4. EXTREMITIES/SKELETON: * No suspicious FDG avid osseous lesion. CT Chest 07/2023: 1. Since 04/14/2023, multiple enlarging right lung nodules, suspicious for metastases. 2. No progressive lymphadenopathy. PET Scan 09/2023: 1. HEAD and NECK: No evidence of focal uptake to suggest FDG avid neoplastic process.. 2. CHEST: Right upper lobe lung nodule increased in size and metabolic activity, associated with new right hilar FDG avid hilar lymphadenopathy most suspicious for neoplastic process. Slightly more prominent nodules in the right lung with mild uptake are also seen.. 3. ABDOMEN/PELVIS: No evidence of focal uptake to suggest FDG avid neoplastic process.. 4. EXTREMITIES/SKELETON: No evidence of focal uptake to suggest FDG avid neoplastic process.. Assessment and Plan: Caitlin Elmore is a 58 year old year old male here for follow up. 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 PET with response 04/2023. 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 PET reviewed withj progression of saul disease. Insufficient tumor for PDL-1 and will start Carbo/Taxol and Pembro today. Discussed adverse events and also IRAE and he agrees and wishes to proceed.. 2. PET positive in the prostate and he follows urology 3. CRI- Stable See back in 2 weeks for cycle 2. Thank you for the kind referral. If there are any questions and or concerns please do not hesitate to contact me at [phone]. Elizabeth Borjas MD Hematology/Medical Oncology [facility] I spent a total of 30 minutes on the date of the service which included preparing to see the patient, [id number] patient care, completing clinical documentation, obtaining and/or reviewing separately obtained history, performing a medically appropriate examination, counseling and educating the patient/family/caregiver, and ordering medications, tests, or procedures. CC: Naty Burton MD documented in this encounter [facility] 09-22-2023 Note [facility] 09-22-2023 Note [facility] [facility]23 Miscellaneous Notes Pt is a New Start for 09/26. No labs are ordered. Anegla Ortega documented in this encounter [facility] 09-13-2023 Miscellaneous Notes Patient has been scheduled and will receive these appointments on his MyChart. Thanks! Ellyn Jessicasultana Elizabeth Borjas MD I spoke to them tonight and will need education for chemo and start chemo right after his PET PSS: Please call pt to schedule per Amish note above. Thank you, Poly Doran RN documented in this encounter [facility] 09-12-2023 Note [facility] 09-09-2023 Note HNO ID: [id number] Author: Note, Interface Service: ? Author Type: ? Type: Progress Notes Filed: 09/09/2023 5:51 AM Note Text: Epic Scheduled Downtime: 09/09/2023 1:00:00 AM to 09/09/2023 5:38:00 AM [facility] 09-06-2023 Note [facility] 09-06-2023 History of Present illness Narrative Images from the original note were not included. Antonio PATIENT NAME: Caitlin Elmore [facility] NO.: [id number] ATTENDING PHYSICIAN: Elizabeth Borjas MD DATE OF SERVICE: September 06, 2023 Some of the elements of this note have been copied from my previous progress note dated 07/25/2023. All the information has been reviewed carefully. Dear Dr. Carrillo referring provider defined for this encounter. here is an update on a follow up visit on male Caitlin Elmore at the clinic September 06, 2023 Diagnosis: HPV positive BOT SCC Treatment History: Concurrent Cisplatin and XRT 11/21/2021- XRTY completed 01/06/2023 and last dose of chemo 12/21/2022 ( Total [place] dose= 200 mg/m2) HPI: Caitlin Elmore is a 58 year old year old male here for follow up. He is doing well and did undergo a bronchospoc biopsy of the RUL nodule and an EBUS and saul sampling. The RUL nodule was positive for p16 positive Squamous cell lung cancer and all the LN biopsies were negative. He is doing well post biopsy and denies any LATIF and or fevers and or chills. PAST MEDICAL HISTORY Diagnosis Date Hard of hearing HTN (hypertension) Hypercholesteremia Social History Tobacco Use Smoking status: Former Packs/day: 1.00 Years: 35.00 Additional pack years: 0.00 Total pack years: 35.00 Types: Cigarettes Quit date: 10/13/2022 Years since quittin.8 Passive exposure: Past Smokeless tobacco: Former Vaping Use Vaping Use: Never used Substance Use Topics Alcohol use: Yes Comment: occ Drug use: Not Currently Types: Marijuana FAMILY HISTORY Problem Relation Age of Onset Prostate Cancer Father Thyroid Cancer Sister Past medical, social and family history reviewed without any changes. REVIEW OF SYSTEMS GENERAL: No weight loss, malaise or fevers. No night sweats. HEENT: Negative for headaches, No changes in hearing or vision, no nose bleeds or other nasal problems. RESPIRATORY: Negative for cough, wheezing and shortness of breath CARDIOVASCULAR: Negative for chest pain, leg swelling and palpitations GI: Negative for abdominal discomfort, blood in stools or black stools and change in bowel habits : Negative for dysuria, frequency and incontinence MUSCULOSKELETAL: Negative for joint pain or swelling, back pain, and muscle pain. SKIN: Negative for lesions, rash, and itching. HEMATOLOGY/LYMPHOLOGY Negative for prolonged bleeding, bruising easily, and swollen nodes. NEURO: Negative for numbness or tingling of hands/feet. No weakness. PHYSICAL EXAMINATION: There were no vitals taken for this visit. Wt 90.4 kg (199 lb 6.4 oz) BMI 26.54 kg/m2 Last 3 Encounter Wt Readings: Date: Wt: 11/29/2022 90.4 kg (199 lb 6.4 oz) 11/28/2022 88.9 kg (196 lb) 11/21/2022 92.1 kg (203 lb) General appearance:ECOG PERFORMANCE STATUS: 1- Restricted in physically strenuous activity. Carries out light duty. Patient in NAD. Skin: Skin color, texture, turgor normal. No rashes or lesions. Eyes: Anicteric sclera. Pupils are equally round and reactive to light. Extraocular movements are intact. Lymph Nodes: Cervical node on the L decreased in size Oropharynx: Lips, mucosa, and tongue normal. Back: No pain to percussion. Negative SLR test Lungs clear to auscultation, No wheezing or rhonchi Heart: RRR without murmur, gallop, or rubs. Abdomen soft, non-tender. No masses, organomegaly Extremities: No deformities. No edema Neuro: Gait and speech normal. Reflexes normal and symmetric. Muscular strength intact. Sensation grossly intact. Rectal: Deferred : Deferred LABS: Glucose (mg/dL) Date Value 07/25/2023 128 Potassium (mmol/L) Date Value 07/25/2023 4.1 Sodium (mmol/L) Date Value 07/25/2023 138 Chloride (mmol/L) Date Value 07/25/2023 101 CO2 (mmol/L) Date Value 07/25/2023 26 Creatinine (mg/dL) Date Value 07/25/2023 1.66 BUN (mg/dL) Date Value 07/25/2023 24 Anion Gap (mmol/L) Date Value 07/25/2023 11 Calcium, Total (mg/dL) Date Value 07/25/2023 10.8 Protein, Total (g/dL) Date Value 07/25/2023 6.9 Albumin (g/dL) Date Value 07/25/2023 4.7 Bilirubin, Total (mg/dL) Date Value 07/25/2023 0.3 Alkaline Phosphatase (U/L) Date Value 07/25/2023 82 AST (U/L) Date Value 07/25/2023 15 ALT (U/L) Date Value 07/25/2023 15 WBC Date Value Ref Range Status 07/25/2023 8.05 3.70 - 11.00 k/uL Final RBC Date Value Ref Range Status 07/25/2023 4.74 4.20 - 6.00 m/uL Final Hemoglobin Date Value Ref Range Status 07/25/2023 13.7 13.0 - 17.0 g/dL Final Hematocrit Date Value Ref Range Status 07/25/2023 40.6 39.0 - 51.0 % Final MCV Date Value Ref Range Status 07/25/2023 85.7 80.0 - 100.0 fL Final MCH Date Value Ref Range Status 07/25/2023 28.9 26.0 - 34.0 pg Final MCHC Date Value Ref Range Status 07/25/2023 33.7 30.5 - 36.0 g/dL Final RDW-CV Date Value Ref Range Status 07/25/2023 13.3 11.5 - 15.0 % Final Platelet Count Date Value Ref Range Status 07/25/2023 167 150 - 400 k/uL Final MPV Date Value Ref Range Status 07/25/2023 8.4 (L) 9.0 - 12.7 fL Final Abs Neut Date Value Ref Range Status 07/25/2023 5.70 1.45 - 7.50 k/uL Final Lymphocytes % Date Value Ref Range Status 07/25/2023 17.1 % Final Abs Lymph Date Value Ref Range Status 07/25/2023 1.38 1.00 - 4.00 k/uL Final Monocytes % Date Value Ref Range Status 07/25/2023 7.7 % Final Abs Gates Date Value Ref Range Status 07/25/2023 0.62 <0.87 k/uL Final Eosinophils % Date Value Ref Range Status 07/25/2023 3.7 % Final Abs Eosin Date Value Ref Range Status 07/25/2023 0.30 <0.46 k/uL Final Basophils % Date Value Ref Range Status 07/25/2023 0.4 % Final Abs Baso Date Value Ref Range Status 07/25/2023 0.03 <0.11 k/uL Final PATH: L BOT mass Biopsy 10/18/2022: 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 IMAGING: CT Neck 10/2022: PET 11/2022: 1. Neck: Intensely hypermetabolic right oropharyngeal region mass compatible with neoplastic process. Hypermetabolic right cervical lymphadenopathy suspicious for metastatic lymphadenopathy. 2. Chest: No evidence of FDG avid neoplastic process 3. Abdomen and pelvis: No evidence of FDG avid metastases Increased activity in the prostatic region correlation with PSA is suggested. 4. Skeleton: No hypermetabolic osseous lesions PET Scan 04/2023 1. NECK: * Interval resolution of intense uptake in the right tongue base. * Resolution of FDG avid cervical lymphadenopathy. 2. CHEST: * New subcentimeter right upper lobe pulmonary nodules, too small to accurately assess for FDG uptake. Differential includes infection/inflammation or metastasis. Attention on follow-up recommended. * No FDG avid lymphadenopathy. 3. ABDOMEN/PELVIS: * Similar appearance of focal FDG uptake in the left prostate gland. This is concerning for primary prostatic malignancy. Correlation with MRI prostate without and with IV contrast is recommended. * Otherwise, no FDG avid lymphadenopathy. 4. EXTREMITIES/SKELETON: * No suspicious FDG avid osseous lesion. CT Chest 07/2023: 1. Since 04/14/2023, multiple enlarging right lung nodules, suspicious for metastases. 2. No progressive lymphadenopathy. Assessment and Plan: Caitlin Elmore is a 58 year old year old male here for follow up. 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 PET with response 04/2023. CTY Chest 07/2023 with pulmonary nodules and biopsy c/w metastatic disease oropharyngeal cancer. Will arrange for a PET scan and NGS and PDL-1 has been ordered as well and will discuss plan in TB as well. 2. PET positive in the prostate and he follows urology 3. CRI- Stable Will arrange PET and discuss with TB and await molecular studies Thank you for the kind referral. If there are any questions and or concerns please do not hesitate to contact me at [phone]. Elizabeth Borjas MD Hematology/Medical Oncology [facility] spent a total of 30 minutes on the date of the service which included preparing to see the patient, [id number] patient care, completing clinical documentation, obtaining and/or reviewing separately obtained history, performing a medically appropriate examination, counseling and educating the patient/family/caregiver, and ordering medications, tests, or procedures. CC: Naty Burton MD documented in this encounter [facility] 08-30-2023 Nurse Note POST OP LEARNING RESPONSE INSTRUCTION PROVIDED TO: Patient and family member METHOD OF INSTRUCTION: Individual instruction Written instruction - handouts PATIENT / FAMILY RESPONSE: Verbalizes understanding of: POST-PROCEDURE INSTRUCTIONS-Correct actions to take to reduce post procedure complications FOLLOW-UP PLAN: Patient instructed to call with any further issues SUPPLEMENTAL MATERIAL: None REFERRAL (RECOMMENDATION): None Electronically Signed By: CHRIS Aguilar In department: Bronchoscopy AMBULATORY PATIENT EDUCATION TOPIC: Bronchoscopy Pre-procedure instructions READINESS TO LEARN COGNITIVE ABILITY: Alert and oriented MOTIVATION TO LEARN: Interested FAMILY SUPPORT: Unable to assess - Family not present INSTRUCTION PROVIDED TO: Patient PATIENT LEARNS BEST BY: Undecided FACTORS AFFECTING LEARNING: None PHYSICAL LIMITATIONS AFFECTING LEARNING: None LEARNING RESPONSE DIAGNOSIS: Lung Disease METHOD OF INSTRUCTION: Individual instruction Verbal instruction PATIENT / FAMILY RESPONSE: Verbalizes understanding of: POST-PROCEDURE INSTRUCTIONS-Correct actions to take to reduce post procedure complications PRE-PROCEDURE INSTRUCTIONS-Correct action to take to follow pre-procedure instructions FOLLOW-UP PLAN: Complete - No need for follow-up Patient instructed to call with any further issues SUPPLEMENTAL MATERIAL: None REFERRAL (RECOMMENDATION): None documented in this encounter [facility] 08-30-2023 Note [facility] 08-24-2023 Note [facility] 08-24-2023 History of Present illness Narrative Images from the original note were not included. INTERVENTIONAL PULMONARY MEDICINE CONSULTATION PLEASE DO NOT REMOVE FROM THE CHART OR MODIFY PRINTED COPY Patient Name: Caitlin Elmore PRIMARY CARE PHYSICIAN: Naty Burton MD REFERRING PHYSICIAN: Elizabeth Borjas MD Consultation requested by Dr. Elizabeth Borjas for an opinion regarding lung nodules. My final recommendations/evaluation will be communicated back to the requesting physician by way of shared medical record or letter via [place] mail. CHIEF COMPLAINT: Lung nodules HISTORY OF PRESENT ILLNESS: Caitlin Elmore is a 58 year old male, BMI 25.16 kg/m2, with a history of SCC of the BOT s/p chemo/XRT who presents for evaluation of lung nodules. 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 S/p concurrent cisplatin (11/21/22-12/21/22) and RT w 70Gy in 35fx's (11/21/22-01/06/23). PET/CT on 04/14/23 with complete radiographic and metabolic response BOT and cervical LAD. New <1 cm RUL nodules below PET resolution. + focal uptake in prostate. 07/18/23 CT chest showed interval increase in nodules measuring 0.7 cm (previously 0.5 cm) and 1cm (0.6 cm) in the RUL and a RML nodule measuring 0.8 cm (0.5 cm). Today, patient denies any respiratory symptoms. He quit smoking in October. He denies any chest pain or exertional symptoms. He denies prior issues with general anesthesia. PAST MEDICAL HISTORY Diagnosis Date Hard of hearing HTN (hypertension) Hypercholesteremia PAST SURGICAL HISTORY Procedure Laterality Date PAST SURGICAL HISTORY OF Right mastoidectomy and incus repair TONSILLECTOMY & ADENOIDECTOMY <AGE 13 FAMILY HISTORY Problem Relation Age of Onset Prostate Cancer Father Thyroid Cancer Sister Social History Tobacco Use Smoking status: Former Packs/day: 1.00 Years: 35.00 Additional pack years: 0.00 Total pack years: 35.00 Types: Cigarettes Quit date: 10/13/2022 Years since quittin.8 Passive exposure: Past Smokeless tobacco: Former Vaping Use Vaping Use: Never used Substance Use Topics Alcohol use: Yes Comment: occ Drug use: Not Currently Types: Marijuana ALLERGIES: ALLERGIES No Known Allergies CURRENT OUTPATIENT MEDICATIONS: tamsulosin (FLOMAX) 0.4 mg Take 0.4 mg by mouth. amLODIPine (NORVASC) 10 mg tablet Take 10 mg by mouth once daily. lisinopril (ZESTRIL, PRINIVIL) 40 mg tablet Take 40 mg by mouth once daily. pravastatin (PRAVACHOL) 20 mg tablet Take 20 mg by mouth once daily. ibuprofen (MOTRIN) 200 mg tablet Take 200 mg by mouth every 6 hours as needed. REVIEW OF SYSTEMS GENERAL:No weight loss, malaise or fevers., SEE HPI HEENT:Negative for frequent or significant headaches, No changes in hearing or vision, no nose bleeds or other nasal problems NECK:Negative for lumps, goiter, pain and significant neck swelling RESPIRATORY: See HPI CARDIOVASCULAR: Negative for chest pain, leg swelling or palpitations. GASTROINTESTINAL: Negative for abdominal discomfort, blood in stools or black stools or change in bowel habits GENITOURINARY: Not reviewed BULB GRADER: NA MUSCULOSKELETAL: Negative for joint pain or swelling, back pain or muscle pain. NEUROLOGIC:Negative for focal numbness or weakness, headaches and dizziness or syncope. SKIN:Negative for lesions, rash, and itching. PSYCHIATRIC: Negative for sleep disturbance, mood disorder and recent psychosocial stressors. HEMATOLOGIC/LYMPHATIC/IMMUNOLOGIC :Negative for prolonged bleeding, bruising easily or swollen nodes. ENDOCRINE: Negative for cold or heat intolerance, polyuria, polydipsia and goiter. The remainder of the ROS was negative. PHYSICAL EXAMINATION: VITAL SIGNS: BP 124/76 Pulse 54 Temp (Src) 97.7 (Temporal) Resp 16 Wt 189 lb (85.7kg) SpO2 99% Physical Exam: GEN: No acute distress, breathing comfortably on RA HEAD: Normocephalic EYES: Pupils equal, round reactive to light ENT: Moist mucous membranes LYMPH: No submandibular, cervical, supraclavicular, axillary, or epitrochlear lymphadenopathy present CV: Regular rate and rhythm PULM: Clear to auscultation bilaterally, no wheeze/rhonchi ABD: Normoactive bowel sounds, non-tender to palpation EXT: Warm and well perfuse, no lower extremity edema SKIN: No rashes on observable skin NEURO: Alert and oriented, sensation grossly intact LAST LAB RESULTS: Personally reviewed. Pertinent below. Hg 13.7 Plt 167 Cr 1.66 K 4.1 IMAGING/STUDIES: Personally reviewed, agree with radiologist interpretation as below: 08/24/23 CT-chest IMPRESSION: A few bilateral pulmonary nodules with the largest up to 10 mm in size without significant change since prior exam, though increased in size since 04/14/2023. New cavitation developing within the 8 mm right upper lobe nodule. These nodules were not FDG avid on prior PET/CT which remain indeterminant and suspicious for metastatic disease. No thoracic lymphadenopathy. 04/14/23 PET-CT 1. NECK: * Interval resolution of intense uptake in the right tongue base. * Resolution of FDG avid cervical lymphadenopathy. 2. CHEST: * New subcentimeter right upper lobe pulmonary nodules, too small to accurately assess for FDG uptake. Differential includes infection/inflammation or metastasis. Attention on follow-up recommended. * No FDG avid lymphadenopathy. 3. ABDOMEN/PELVIS: * Similar appearance of focal FDG uptake in the left prostate gland. This is concerning for primary prostatic malignancy. Correlation with MRI prostate without and with IV contrast is recommended. * Otherwise, no FDG avid lymphadenopathy. 4. EXTREMITIES/SKELETON: * No suspicious FDG avid osseous lesion. IMPRESSIONS: # SCC of the BOT # Multiple pulmonary nodules Patient with high risk for primary lung maligancy given smoking history as well as metastatic SCC. Higher concern for metastatic disease given multiple nodules. Discussed indepth the role, risks and benefits of biopsy which the patient is infavor or. RECOMMENDATION/PLAN: - No contraindication to undergoing general anesthesia apparent - Preop ECG obtained, no new labs needed - Written informed consent obtained - Bronch scheduled for 08/29 Written and verbal health teaching given to patient, patient verbalizes understanding and agrees with treatment plan. Patient seen and discussed with Dr. Reyes. Electronically Signed: Avel De Anda MD August 24, 2023 9:55 AM STAFF: Patient seen and examined with IP fellow. Agree with fellows note as outlined above. Patient has a history of tongue cancer with multiple lung nodules which are probably secondary to metastatic disease. Agree with proceeding with a diagnostic bronchoscopy and sampling of the lung nodules. He understands the risks and benefits and is agreeable with proceeding at this time. Carissa Reyes MD September 09, 2023 12:59 PM documented in this encounter [facility] 08-24-2023 History of Present illness Narrative Radiology Service Progress Note PATIENT NAME: Caitlin Elmore DATE OF SERVICE: August 24, 2023 TIME: 9:03 AM PATIENT IDENTITY VERIFICATION COMPLETED USING TWO (2) IDENTIFIERS: Name and Date of confirmed by patient verbally and Name and Date of confirmed by identification band. FALL SCREENING: Has the patient had 2 falls in the last year or 1 fall with injury or currently using an Ambulatory Assistive Device (Walker, Cane, Wheelchair, Crutches, etc.)? No PATIENT GENDER DATA: Male PATIENT RELEVANT IMPLANT DATA REVIEWED: Yes RADIOLOGY DEPARTMENT: CT; Exam(s) Completed: Chest PERIPHERAL IV DATA: Not applicable SIGNED BY: RT Biju(R) August 24, 2023 9:03 AM documented in this encounter [facility] 08-24-2023 Note [facility] 08-18-2023 Miscellaneous Notes Admin took a call from Clarissa, spouse of pt, checking in on bronchoscopy scheduling. Patient sent [facility] message again regarding scheduling. Ellyn Mullins Good Morning, This patient was cleared to schedule on 08/04. Can you please provide an update? Thank you! Ellyn Mullins documented in this encounter [facility] 08-15-2023 Miscellaneous Notes Images from the original note were not included. Per note from other encounter: Nila Alexander MD You; Pul Bronch Scheduling Pool; Nay Maguire, ONELIA 16 minutes ago (12:49 PM) [facility], thanks for following up. I think my team is working on it. To bronch scheduling team: This may be a somewhat challenging. Please make sure to get preop SuperD CT chest a few days before scheduled bronch. Please inform the person who s doing the bronch (when he is on schedule) to map out to any potentially accessible nodule. Thanks. Shazia Knapp Patient is still not scheduled for bronch. Sending message to bronch pool for update. Ellyn Mullins Can we schedule him to see me a wek after his bronch please. Thanks Thanks Pt has been cleared for bronch through insurance and they will be reaching out to pt to schedule consult. Chiqui Modi, RN I have requested a Bronch and please keep an eye on it documented in this encounter [facility] 08-04-2023 Note [facility] 08-03-2023 Note [facility] 08-03-2023 History of Present illness Narrative Bronchoscopy Request: Please schedule patient for the following: Outpatient Visit: New Consult with Staff: Patient Choice (Virtual or In-Person) and IP Fellow Clinic (if available): Patient [facility] (Virtual or In-Person) Bronchoscopy Procedures: Robotic Bronchoscopy Auris (CLARICE/SS/MM/FA) Robotic Bronchoscopy ION (TG/CG/LL/AM/MA/SL/SS/CLARICE/SG/BB/FA ) Diagnosis/Reason for Bronchoscopy: Lung nodule sampling only Timing: Next available Time Allotment/Tier: TIER 2: 2 HOUR Physician Performing Bronchoscopy:Dr. Camarena, Dr. Loredo, Dr. Reyes, Dr. Starr, Dr. Guzmán, Dr Corona, Lefty, Dr. Jarrett, Dr. Howe , Dr. Alexander, Dr. Vital, and Dr. 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 Discussed in tumor board where we agreed to get a superD CT, map it on the navigation system and see which one we can get to. Consultation request/referral by: Elizabeth Borjas MD Reviewed by: MD Nila Chambers MD August 03, 2023 4:55 PM Addendum: CBC with diff: WBC 8.05 07/25/2023 RBC 4.74 07/25/2023 Hemoglobin 13.7 07/25/2023 Hematocrit 40.6 07/25/2023 MCV 85.7 07/25/2023 MCH 28.9 07/25/2023 MCHC 33.7 07/25/2023 RDW-CV 13.3 07/25/2023 Platelet Count 167 07/25/2023 MPV 8.4 07/25/2023 Neutrophils % 70.9 07/25/2023 Lymphocytes % 17.1 07/25/2023 Monocytes % 7.7 07/25/2023 Basophils % 0.4 07/25/2023 Abs Neut (Segs + Bands) 5.70 07/25/2023 Abs Gates 0.62 07/25/2023 Abs Eosin 0.30 07/25/2023 Abs Baso 0.03 07/25/2023 Potassium Date Value Ref Range Status 07/25/2023 4.1 3.7 - 5.1 mmol/L Final 04/14/2023 4.3 3.7 - 5.1 mmol/L Final 01/20/2023 3.9 3.7 - 5.1 mmol/L Final Sodium Date Value Ref Range Status 07/25/2023 138 136 - 144 mmol/L Final 04/14/2023 139 136 - 144 mmol/L Final 01/20/2023 138 136 - 144 mmol/L Final BUN Date Value Ref Range Status 07/25/2023 24 9 - 24 mg/dL Final Creatinine Date Value Ref Range Status 07/25/2023 1.66 (H) 0.73 - 1.22 mg/dL Final documented in this encounter [facility] 07-25-2023 Note [facility] 07-25-2023 Note [facility] 07-25-2023 History of Present illness Narrative Images from the original note were not included. PATIENT NAME: [facility] NO.: [id number] ATTENDING PHYSICIAN: Elizabeth Borjas MD DATE OF SERVICE: July 25, 2023 Some of the elements of this note have been copied from my previous progress note dated 04/18/2023. All the information has been reviewed carefully. Dear Dr. Carrillo referring provider defined for this encounter. here is an update on a follow up visit on male Caitlin Elmore at the clinic July 25, 2023 Diagnosis: HPV positive BOT SCC Treatment History: Concurrent Cisplatin and XRT 11/21/2021- XRTY completed 01/06/2023 and last dose of chemo 12/21/2022 ( Total [place] dose= 200 mg/m2) HPI: Caitlin Elmore is a 58 year old year old male here for follow up. Doing well and swallowing well and denies any fevers and or chills. Denies any SOB and or cough, slight Xerostomia PAST MEDICAL HISTORY Diagnosis Date Hard of hearing HTN (hypertension) Hypercholesteremia Social History Tobacco Use Smoking status: Former Packs/day: 1.00 Years: 35.00 Additional pack years: 0.00 Total pack years: 35.00 Types: Cigarettes Quit date: 10/13/2022 Years since quittin.7 Passive exposure: Past Smokeless tobacco: Former Vaping Use Vaping Use: Never used Substance Use Topics Alcohol use: Yes Comment: occ Drug use: Not Currently Types: Marijuana FAMILY HISTORY Problem Relation Age of Onset Prostate Cancer Father Thyroid Cancer Sister Past medical, social and family history reviewed without any changes. REVIEW OF SYSTEMS GENERAL: No weight loss, malaise or fevers. No night sweats. HEENT: Negative for headaches, No changes in hearing or vision, no nose bleeds or other nasal problems. RESPIRATORY: Negative for cough, wheezing and shortness of breath CARDIOVASCULAR: Negative for chest pain, leg swelling and palpitations GI: Negative for abdominal discomfort, blood in stools or black stools and change in bowel habits : Negative for dysuria, frequency and incontinence MUSCULOSKELETAL: Negative for joint pain or swelling, back pain, and muscle pain. SKIN: Negative for lesions, rash, and itching. HEMATOLOGY/LYMPHOLOGY Negative for prolonged bleeding, bruising easily, and swollen nodes. NEURO: Negative for numbness or tingling of hands/feet. No weakness. PHYSICAL EXAMINATION: BP 144/86 Pulse 64 Temp (Src) 97.8 (Temporal) Resp 16 Ht 6' .677 (1.85m) Wt 193 lb 9.6 oz (87.8kg) SpO2 99% BMI 25.77 kg/(m^2). Wt 90.4 kg (199 lb 6.4 oz) BMI 26.54 kg/m2 Last 3 Encounter Wt Readings: Date: Wt: 11/29/2022 90.4 kg (199 lb 6.4 oz) 11/28/2022 88.9 kg (196 lb) 11/21/2022 92.1 kg (203 lb) General appearance:ECOG PERFORMANCE STATUS: 1- Restricted in physically strenuous activity. Carries out light duty. Patient in NAD. Skin: Skin color, texture, turgor normal. No rashes or lesions. Eyes: Anicteric sclera. Pupils are equally round and reactive to light. Extraocular movements are intact. Lymph Nodes: Cervical node on the L decreased in size Oropharynx: Lips, mucosa, and tongue normal. Back: No pain to percussion. Negative SLR test Lungs clear to auscultation, No wheezing or rhonchi Heart: RRR without murmur, gallop, or rubs. Abdomen soft, non-tender. No masses, organomegaly Extremities: No deformities. No edema Neuro: Gait and speech normal. Reflexes normal and symmetric. Muscular strength intact. Sensation grossly intact. Rectal: Deferred : Deferred LABS: Glucose (mg/dL) Date Value 07/25/2023 128 Potassium (mmol/L) Date Value 07/25/2023 4.1 Sodium (mmol/L) Date Value 07/25/2023 138 Chloride (mmol/L) Date Value 07/25/2023 101 CO2 (mmol/L) Date Value 07/25/2023 26 Creatinine (mg/dL) Date Value 07/25/2023 1.66 BUN (mg/dL) Date Value 07/25/2023 24 Anion Gap (mmol/L) Date Value 07/25/2023 11 Calcium, Total (mg/dL) Date Value 04/14/2023 9.8 Protein, Total (g/dL) Date Value 07/25/2023 6.9 Albumin (g/dL) Date Value 07/25/2023 4.7 Bilirubin, Total (mg/dL) Date Value 07/25/2023 0.3 Alkaline Phosphatase (U/L) Date Value 07/25/2023 82 AST (U/L) Date Value 07/25/2023 15 ALT (U/L) Date Value 07/25/2023 15 WBC Date Value Ref Range Status 07/25/2023 8.05 3.70 - 11.00 k/uL Final RBC Date Value Ref Range Status 07/25/2023 4.74 4.20 - 6.00 m/uL Final Hemoglobin Date Value Ref Range Status 07/25/2023 13.7 13.0 - 17.0 g/dL Final Hematocrit Date Value Ref Range Status 07/25/2023 40.6 39.0 - 51.0 % Final MCV Date Value Ref Range Status 07/25/2023 85.7 80.0 - 100.0 fL Final MCH Date Value Ref Range Status 07/25/2023 28.9 26.0 - 34.0 pg Final MCHC Date Value Ref Range Status 07/25/2023 33.7 30.5 - 36.0 g/dL Final RDW-CV Date Value Ref Range Status 07/25/2023 13.3 11.5 - 15.0 % Final Platelet Count Date Value Ref Range Status 07/25/2023 167 150 - 400 k/uL Final MPV Date Value Ref Range Status 07/25/2023 8.4 (L) 9.0 - 12.7 fL Final Abs Neut Date Value Ref Range Status 07/25/2023 5.70 1.45 - 7.50 k/uL Final Lymphocytes % Date Value Ref Range Status 07/25/2023 17.1 % Final Abs Lymph Date Value Ref Range Status 07/25/2023 1.38 1.00 - 4.00 k/uL Final Monocytes % Date Value Ref Range Status 07/25/2023 7.7 % Final Abs Gates Date Value Ref Range Status 07/25/2023 0.62 <0.87 k/uL Final Eosinophils % Date Value Ref Range Status 07/25/2023 3.7 % Final Abs Eosin Date Value Ref Range Status 07/25/2023 0.30 <0.46 k/uL Final Basophils % Date Value Ref Range Status 07/25/2023 0.4 % Final Abs Baso Date Value Ref Range Status 07/25/2023 0.03 <0.11 k/uL Final PATH: L BOT mass Biopsy 10/18/2022: 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 IMAGING: CT Neck 10/2022: PET 11/2022: 1. Neck: Intensely hypermetabolic right oropharyngeal region mass compatible with neoplastic process. Hypermetabolic right cervical lymphadenopathy suspicious for metastatic lymphadenopathy. 2. Chest: No evidence of FDG avid neoplastic process 3. Abdomen and pelvis: No evidence of FDG avid metastases Increased activity in the prostatic region correlation with PSA is suggested. 4. Skeleton: No hypermetabolic osseous lesions PET Scan 04/2023 1. NECK: * Interval resolution of intense uptake in the right tongue base. * Resolution of FDG avid cervical lymphadenopathy. 2. CHEST: * New subcentimeter right upper lobe pulmonary nodules, too small to accurately assess for FDG uptake. Differential includes infection/inflammation or metastasis. Attention on follow-up recommended. * No FDG avid lymphadenopathy. 3. ABDOMEN/PELVIS: * Similar appearance of focal FDG uptake in the left prostate gland. This is concerning for primary prostatic malignancy. Correlation with MRI prostate without and with IV contrast is recommended. * Otherwise, no FDG avid lymphadenopathy. 4. EXTREMITIES/SKELETON: * No suspicious FDG avid osseous lesion. CT Chest 07/2023: 1. Since 04/14/2023, multiple enlarging right lung nodules, suspicious for metastases. 2. No progressive lymphadenopathy. Assessment and Plan: Caitlin Elmore is a 58 year old year old male here for follow up. 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 PET with response 04/2023 2. PET positive in the prostate and he follows urology 3. CRI- Stable 4. Pulmonary nodule-growth on CT 07/2023, present at [facility] next week and assess next best plan, difficult to biopsy and we may need to repeat the imaging studies but the nodule are concverning Await TB recs and will determine follow up Thank you for the kind referral. If there are any questions and or concerns please do not hesitate to contact me at [phone]. Elizabeth Borjas MD Hematology/Medical Oncology [facility] spent a total of 30 minutes on the date of the service which included preparing to see the patient, [id number] patient care, completing clinical documentation, obtaining and/or reviewing separately obtained history, performing a medically appropriate examination, counseling and educating the patient/family/caregiver, and ordering medications, tests, or procedures. CC: Naty Burton MD documented in this encounter [facility] 07-18-2023 Note [facility] 07-07-2023 Hospital Discharge instructions Patient Education 07/07/2023 11:02:41 Prostate Cancer Screening Prostate Cancer Screening Prostate cancer screening is testing that is done to check for the presence of prostate cancer in men. The prostate gland is a walnut-sized gland that is located below the bladder and in front of the rectum in males. The function of the prostate is to add fluid to semen during ejaculation. Prostate cancer is one of the most common types of cancer in men. Who should have prostate cancer screening? Screening recommendations vary based on age and other risk factors, as well as between the professional organizations who make the recommendations. In general, screening is recommended if: You are age 50 to 70 and have an average risk for prostate cancer. You should talk with your health care provider about your need for screening and how often screening should be done. Because most prostate cancers are slow growing and will not cause , screening in this age group is generally reserved for men who have a 10- to 15-year life expectancy. You are younger than age 50, and you have these risk factors: ?Having a father, brother, or uncle who has been diagnosed with prostate cancer. The risk is higher if your family member's cancer occurred at an early age or if you have multiple family members with prostate cancer at an early age. ?Being a male who is Black or is of [place] or sub-Saharan descent. In general, screening is not recommended if: You are younger than age 40. You are between the ages of 40 and 49 and you have no risk factors. You are 70 years of age or older. At this age, the risks that screening can cause are greater than the benefits that it may provide. If you are at high risk for prostate cancer, your health care provider may recommend that you have screenings more often or that you start screening at a younger age. How is screening for prostate cancer done? The recommended prostate cancer screening test is a blood test called the prostate-specific antigen (PSA) test. PSA is a protein that is made in the prostate. As you age, your prostate naturally produces more PSA. Abnormally high PSA levels may be caused by: Prostate cancer. An enlarged prostate that is not caused by cancer (benign prostatic hyperplasia, or BPH). This condition is very common in older men. A prostate gland infection (prostatitis) or urinary tract infection. Certain medicines such as male hormones (like testosterone) or other medicines that raise testosterone levels. A rectal exam may be done as part of prostate cancer screening to help provide information about the size of your prostate gland. When a rectal exam is performed, it should be done after the PSA level is drawn to avoid any effect on the results. Depending on the PSA results, you may need more tests, such as: A physical exam to check the size of your prostate gland, if not done as part of screening. Blood and imaging tests. A procedure to remove tissue samples from your prostate gland for testing (biopsy). This is the only way to know for certain if you have prostate cancer. What are the benefits of prostate cancer screening? Screening can help to identify cancer at an early stage, before symptoms start and when the cancer can be treated more easily. There is a small chance that screening may lower your risk of dying from prostate cancer. The chance is small because prostate cancer is a slow-growing cancer, and most men with prostate cancer from a different cause. What are the risks of prostate cancer screening? The main risk of prostate cancer screening is diagnosing and treating prostate cancer that would never have caused any symptoms or problems. This is called overdiagnosisand overtreatment. PSA screening cannot tell you if your PSA is high due to cancer or a different cause. A prostate biopsy is the only procedure to diagnose prostate cancer. Even the results of a biopsy may not tell you if your cancer needs to be treated. Slow-growing prostate cancer may not need any treatment other than monitoring, so diagnosing and treating it may cause unnecessary stress or other side effects. Questions to ask your health care provider When should I start prostate cancer screening? What is my risk for prostate cancer? How often do I need screening? What type of screening tests do I need? How do I get my test results? What do my results mean? Do I need treatment? Where to find more information The [place] [employer]: www.cancer.org [employer] [employer]: www.auanet.org Contact a health care provider if: You have difficulty urinating. You have pain when you urinate or ejaculate. You have blood in your urine or semen. You have pain in your back or in the area of your prostate. Summary Prostate cancer is a common type of cancer in men. The prostate gland is located below the bladder and in front of the rectum. This gland adds fluid to semen during ejaculation. Prostate cancer screening may identify cancer at an early stage, when the cancer can be treated more easily and is less likely to have spread to other areas of the body. The prostate-specific antigen (PSA) test is the recommended screening test for prostate cancer, but it has associated risks. Discuss the risks and benefits of prostate cancer screening with your health care provider. If you are age 70 or older, the risks that screening can cause are greater than the benefits that it may provide. This information is not intended to replace advice given to you by your health care provider. Make sure you discuss any questions you have with your health care provider. Document Revised: 03/21/2022 Document Reviewed: 03/21/2022 [employer] Patient Education 2022 [employer]. Follow Up Care 06/08/2023 10:56:53 With:Rafa KELLEY, RENU Ibarra, URO Address: When: Unknown [facility] 06-08-2023 Hospital Discharge instructions Patient Education 06/08/2023 10:40:12 Prostate Cancer Screening Prostate Cancer Screening Prostate cancer screening is testing that is done to check for the presence of prostate cancer in men. The prostate gland is a walnut-sized gland that is located below the bladder and in front of the rectum in males. The function of the prostate is to add fluid to semen during ejaculation. Prostate cancer is one of the most common types of cancer in men. Who should have prostate cancer screening? Screening recommendations vary based on age and other risk factors, as well as between the professional organizations who make the recommendations. In general, screening is recommended if: You are age 50 to 70 and have an average risk for prostate cancer. You should talk with your health care provider about your need for screening and how often screening should be done. Because most prostate cancers are slow growing and will not cause , screening in this age group is generally reserved for men who have a 10- to 15-year life expectancy. You are younger than age 50, and you have these risk factors: ?Having a father, brother, or uncle who has been diagnosed with prostate cancer. The risk is higher if your family member's cancer occurred at an early age or if you have multiple family members with prostate cancer at an early age. ?Being a male who is Black or is of [place] or sub-Saharan descent. In general, screening is not recommended if: You are younger than age 40. You are between the ages of 40 and 49 and you have no risk factors. You are 70 years of age or older. At this age, the risks that screening can cause are greater than the benefits that it may provide. If you are at high risk for prostate cancer, your health care provider may recommend that you have screenings more often or that you start screening at a younger age. How is screening for prostate cancer done? The recommended prostate cancer screening test is a blood test called the prostate-specific antigen (PSA) test. PSA is a protein that is made in the prostate. As you age, your prostate naturally produces more PSA. Abnormally high PSA levels may be caused by: Prostate cancer. An enlarged prostate that is not caused by cancer (benign prostatic hyperplasia, or BPH). This condition is very common in older men. A prostate gland infection (prostatitis) or urinary tract infection. Certain medicines such as male hormones (like testosterone) or other medicines that raise testosterone levels. A rectal exam may be done as part of prostate cancer screening to help provide information about the size of your prostate gland. When a rectal exam is performed, it should be done after the PSA level is drawn to avoid any effect on the results. Depending on the PSA results, you may need more tests, such as: A physical exam to check the size of your prostate gland, if not done as part of screening. Blood and imaging tests. A procedure to remove tissue samples from your prostate gland for testing (biopsy). This is the only way to know for certain if you have prostate cancer. What are the benefits of prostate cancer screening? Screening can help to identify cancer at an early stage, before symptoms start and when the cancer can be treated more easily. There is a small chance that screening may lower your risk of dying from prostate cancer. The chance is small because prostate cancer is a slow-growing cancer, and most men with prostate cancer from a different cause. What are the risks of prostate cancer screening? The main risk of prostate cancer screening is diagnosing and treating prostate cancer that would never have caused any symptoms or problems. This is called overdiagnosisand overtreatment. PSA screening cannot tell you if your PSA is high due to cancer or a different cause. A prostate biopsy is the only procedure to diagnose prostate cancer. Even the results of a biopsy may not tell you if your cancer needs to be treated. Slow-growing prostate cancer may not need any treatment other than monitoring, so diagnosing and treating it may cause unnecessary stress or other side effects. Questions to ask your health care provider When should I start prostate cancer screening? What is my risk for prostate cancer? How often do I need screening? What type of screening tests do I need? How do I get my test results? What do my results mean? Do I need treatment? Where to find more information The [place] [employer]: www.cancer.org [employer]: www.auanet.org Contact a health care provider if: You have difficulty urinating. You have pain when you urinate or ejaculate. You have blood in your urine or semen. You have pain in your back or in the area of your prostate. Summary Prostate cancer is a common type of cancer in men. The prostate gland is located below the bladder and in front of the rectum. This gland adds fluid to semen during ejaculation. Prostate cancer screening may identify cancer at an early stage, when the cancer can be treated more easily and is less likely to have spread to other areas of the body. The prostate-specific antigen (PSA) test is the recommended screening test for prostate cancer, but it has associated risks. Discuss the risks and benefits of prostate cancer screening with your health care provider. If you are age 70 or older, the risks that screening can cause are greater than the benefits that it may provide. This information is not intended to replace advice given to you by your health care provider. Make sure you discuss any questions you have with your health care provider. Document Revised: 03/21/2022 Document Reviewed: 03/21/2022 [employer] Patient Education 2022 [employer] 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 INTERVAL HISTORY: Overall doing better. Swallowing stable without pain. Taste improving. Energy level improving. Denies headache visual change otalgia or other new problem. PET/CT 04/14/2023: 1. NECK: * Interval resolution of intense uptake in the right tongue base. * Resolution of FDG avid cervical lymphadenopathy. 2. CHEST: * New subcentimeter right upper lobe pulmonary nodules, too small to accurately assess for FDG uptake. Differential includes infection/inflammation or metastasis. Attention on follow-up recommended. * No FDG avid lymphadenopathy. 3. ABDOMEN/PELVIS: * Similar appearance of focal FDG uptake in the left prostate gland. This is concerning for primary prostatic malignancy. Correlation with MRI prostate without and with IV contrast is recommended. * Otherwise, no FDG avid lymphadenopathy. 4. EXTREMITIES/SKELETON: * No suspicious FDG avid osseous lesion. ALLERGIES No Known Allergies MEDICATIONS: tamsulosin (FLOMAX) 0.4 mg Take 0.4 mg by mouth. amLODIPine (NORVASC) 10 mg tablet Take 10 mg by mouth once daily. lisinopril (ZESTRIL, PRINIVIL) 40 mg tablet Take 40 mg by mouth once daily. pravastatin (PRAVACHOL) 20 mg tablet Take 20 mg by mouth once daily. ibuprofen (MOTRIN) 200 mg tablet Take 200 mg by mouth every 6 hours as needed. REVIEW OF SYSTEMS: GENERAL: SEE HPI. HEENT: SEE HPI. NECK: Negative for masses in the neck. RESPIRATORY: Negative for cough or shortness of breath. CARDIAC: Negative for chest pain, palpitations, murmurs, or syncopal episodes. GI: Negative for nausea, vomiting, diarrhea, constipation, blood per rectum, or melena. : Negative for dysuria, hematuria, urgency, frequency or incontinence. MUSCULOSKELETAL: Negative for limitations in movement, pain, or swelling. NEURO: Negative for dizziness, headache, weakness or numbness. HEMATOLOGIC: Negative for bleeding or easy bruising. SKIN: Negative, except for mild to moderate irritation bilateral neck PHYSICAL EXAM: VS: BP 138/74 Pulse (!) 51 Temp 36.7 C (98 F) Resp 16 Wt 83 kg (183 lb) BMI 24.36 kg/m KPS: 100 General Appearance: Alert and oriented. No acute distress. HEENT: NCAT. Sclera anicteric. PERRL. EOMI. Oral cavity and oropharynx: No obvious lesions or suspicious areas seen. Neck: Normal ROM. No palpable cervical or supraclavicular adenopathy. Neck mobility: Good Tongue mobility: Good Skin: No rash. Mild hyperpigmentation notable. 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 Radiographically no evidence of persistent or recurrent disease. He continues close surveillance with Dr. Forbes. I will plan to see patient back in 3 months for further follow-up. Signed by: Nino Esposito MD cc: Naty Dowling [facility] [address] [place] [phone] documented in this encounter [facility] 04-18-2023 History of Present illness Narrative Images from the original note were not included. [id number] ATTENDING PHYSICIAN: Elizabeth Borjas MD DATE OF SERVICE: April 18, 2023 Some of the elements of this note have been copied from my previous progress note dated 01/11/2023. All the information has been reviewed carefully. Dear No referring provider defined for this encounter. here is an update on a follow up visit on male Caitlin Elmore at the clinic January 11, 2023 Diagnosis: HPV positive BOT SCC Treatment History: Concurrent Cisplatin and XRT 11/21/2021- XRTY completed 01/06/2023 and last dose of chemo 12/21/2022 ( Total [place] dose= 200 mg/m2) HPI: Caitlin Elmore is a 58 year old year old male here for follow up. Doing well and swallowing well and denies any fevers and or chills. Denies any SOB and or cough PAST MEDICAL HISTORY Diagnosis Date Hard of hearing HTN (hypertension) Hypercholesteremia Social History Tobacco Use Smoking status: Former Packs/day: 1.00 Years: 35.00 Total pack years: 35.00 Types: Cigarettes Quit date: 10/13/2022 Years since quittin.5 Passive exposure: Past Smokeless tobacco: Former Vaping Use Vaping Use: Never used Substance Use Topics Alcohol use: Yes Comment: occ Drug use: Not Currently Types: Marijuana FAMILY HISTORY Problem Relation Age of Onset Prostate Cancer Father Thyroid Cancer Sister Past medical, social and family history reviewed without any changes. REVIEW OF SYSTEMS GENERAL: No weight loss, malaise or fevers. No night sweats. HEENT: Negative for headaches, No changes in hearing or vision, no nose bleeds or other nasal problems. RESPIRATORY: Negative for cough, wheezing and shortness of breath CARDIOVASCULAR: Negative for chest pain, leg swelling and palpitations GI: Negative for abdominal discomfort, blood in stools or black stools and change in bowel habits : Negative for dysuria, frequency and incontinence MUSCULOSKELETAL: Negative for joint pain or swelling, back pain, and muscle pain. SKIN: Negative for lesions, rash, and itching. HEMATOLOGY/LYMPHOLOGY Negative for prolonged bleeding, bruising easily, and swollen nodes. NEURO: Negative for numbness or tingling of hands/feet. No weakness. PHYSICAL EXAMINATION: BP 138/74 Pulse 51 Temp (Src) 98 (Temporal) Resp 16 Ht 6' .677 (1.85m) Wt 183 lb 12.8 oz (83.4kg) SpO2 99% BMI 24.47 kg/(m^2). Wt 90.4 kg (199 lb 6.4 oz) BMI 26.54 kg/m2 Last 3 Encounter Wt Readings: Date: Wt: 11/29/2022 90.4 kg (199 lb 6.4 oz) 11/28/2022 88.9 kg (196 lb) 11/21/2022 92.1 kg (203 lb) General appearance:ECOG PERFORMANCE STATUS: 1- Restricted in physically strenuous activity. Carries out light duty. Patient in NAD. Skin: Skin color, texture, turgor normal. No rashes or lesions. Eyes: Anicteric sclera. Pupils are equally round and reactive to light. Extraocular movements are intact. Lymph Nodes: Cervical node on the L decreased in size Oropharynx: Lips, mucosa, and tongue normal. Back: No pain to percussion. Negative SLR test Lungs clear to auscultation, No wheezing or rhonchi Heart: RRR without murmur, gallop, or rubs. Abdomen soft, non-tender. No masses, organomegaly Extremities: No deformities. No edema Neuro: Gait and speech normal. Reflexes normal and symmetric. Muscular strength intact. Sensation grossly intact. Rectal: Deferred : Deferred LABS: Glucose (mg/dL) Date Value 04/14/2023 102 Potassium (mmol/L) Date Value 04/14/2023 4.3 Sodium (mmol/L) Date Value 04/14/2023 139 Chloride (mmol/L) Date Value 04/14/2023 105 CO2 (mmol/L) Date Value 04/14/2023 27 Creatinine (mg/dL) Date Value 04/14/2023 1.25 BUN (mg/dL) Date Value 04/14/2023 17 Anion Gap (mmol/L) Date Value 04/14/2023 7 Calcium, Total (mg/dL) Date Value 04/14/2023 9.8 Protein, Total (g/dL) Date Value 04/14/2023 6.6 Albumin (g/dL) Date Value 04/14/2023 4.3 Bilirubin, Total (mg/dL) Date Value 04/14/2023 0.3 Alkaline Phosphatase (U/L) Date Value 04/14/2023 86 AST (U/L) Date Value 04/14/2023 15 ALT (U/L) Date Value 04/14/2023 16 WBC Date Value Ref Range Status 04/14/2023 4.79 3.70 - 11.00 k/uL Final RBC Date Value Ref Range Status 04/14/2023 4.25 4.20 - 6.00 m/uL Final Hemoglobin Date Value Ref Range Status 04/14/2023 12.5 (L) 13.0 - 17.0 g/dL Final Hematocrit Date Value Ref Range Status 04/14/2023 36.3 (L) 39.0 - 51.0 % Final MCV Date Value Ref Range Status 04/14/2023 85.4 80.0 - 100.0 fL Final MCH Date Value Ref Range Status 04/14/2023 29.4 26.0 - 34.0 pg Final MCHC Date Value Ref Range Status 04/14/2023 34.4 30.5 - 36.0 g/dL Final RDW-CV Date Value Ref Range Status 04/14/2023 11.9 11.5 - 15.0 % Final Platelet Count Date Value Ref Range Status 04/14/2023 169 150 - 400 k/uL Final MPV Date Value Ref Range Status 04/14/2023 8.8 (L) 9.0 - 12.7 fL Final Abs Neut Date Value Ref Range Status 04/14/2023 3.03 1.45 - 7.50 k/uL Final Lymphocytes % Date Value Ref Range Status 04/14/2023 16.5 % Final Abs Lymph Date Value Ref Range Status 04/14/2023 0.79 (L) 1.00 - 4.00 k/uL Final Monocytes % Date Value Ref Range Status 04/14/2023 9.2 % Final Abs Gates Date Value Ref Range Status 04/14/2023 0.44 <0.87 k/uL Final Eosinophils % Date Value Ref Range Status 04/14/2023 10.0 % Final Abs Eosin Date Value Ref Range Status 04/14/2023 0.48 (H) <0.46 k/uL Final Basophils % Date Value Ref Range Status 04/14/2023 0.8 % Final Abs Baso Date Value Ref Range Status 04/14/2023 0.04 <0.11 k/uL Final PATH: L BOT mass Biopsy 10/18/2022: 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 IMAGING: CT Neck 10/2022: PET 11/2022: 1. Neck: Intensely hypermetabolic right oropharyngeal region mass compatible with neoplastic process. Hypermetabolic right cervical lymphadenopathy suspicious for metastatic lymphadenopathy. 2. Chest: No evidence of FDG avid neoplastic process 3. Abdomen and pelvis: No evidence of FDG avid metastases Increased activity in the prostatic region correlation with PSA is suggested. 4. Skeleton: No hypermetabolic osseous lesions PET Scan 04/2023 1. NECK: * Interval resolution of intense uptake in the right tongue base. * Resolution of FDG avid cervical lymphadenopathy. 2. CHEST: * New subcentimeter right upper lobe pulmonary nodules, too small to accurately assess for FDG uptake. Differential includes infection/inflammation or metastasis. Attention on follow-up recommended. * No FDG avid lymphadenopathy. 3. ABDOMEN/PELVIS: * Similar appearance of focal FDG uptake in the left prostate gland. This is concerning for primary prostatic malignancy. Correlation with MRI prostate without and with IV contrast is recommended. * Otherwise, no FDG avid lymphadenopathy. 4. EXTREMITIES/SKELETON: * No suspicious FDG avid osseous lesion. Assessment and Plan: Caitlin Elmore is a 57 year old year old male here for follow up. 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 PET with response 04/2023 2. PET positive in the prostate and he does see urology will communicate with them 3. CRI- Stable 4. Pulmonary nodule- repeat CT in 3 months See back in 3 months for labs and repeat CT Thank you for the kind referral. If there are any questions and or concerns please do not hesitate to contact me at [phone]. Elizabeth Borjas MD Hematology/Medical Oncology [facility] spent a total of 30 minutes on the date of the service which included preparing to see the patient, [id number] patient care, completing clinical documentation, obtaining and/or reviewing separately obtained history, performing a medically appropriate examination, counseling and educating the patient/family/caregiver, and ordering medications, tests, or procedures. 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 INTERVAL HISTORY: Patient states he is doing well. Taste still altered although somewhat improved. No new problems. ALLERGIES No Known Allergies MEDICATIONS: amLODIPine (NORVASC) 10 mg tablet Take 10 mg by mouth once daily. lisinopril (ZESTRIL, PRINIVIL) 40 mg tablet Take 40 mg by mouth once daily. doxazosin (CARDURA) 4 mg tablet Take 4 mg by mouth once daily. pravastatin (PRAVACHOL) 20 mg tablet Take 20 mg by mouth once daily. ibuprofen (MOTRIN) 200 mg tablet Take 200 mg by mouth every 6 hours as needed. REVIEW OF SYSTEMS: GENERAL: SEE HPI. HEENT: SEE HPI. NECK: Negative for masses in the neck. RESPIRATORY: Negative for cough or shortness of breath. CARDIAC: Negative for chest pain, palpitations, murmurs, or syncopal episodes. GI: Negative for nausea, vomiting, diarrhea, constipation, blood per rectum, or melena. : Negative for dysuria, hematuria, urgency, frequency or incontinence. MUSCULOSKELETAL: Negative for limitations in movement, pain, or swelling. NEURO: Negative for dizziness, headache, weakness or numbness. HEMATOLOGIC: Negative for bleeding or easy bruising. SKIN: Negative, except for mild to moderate irritation bilateral neck PHYSICAL EXAM: VS: BP 133/75 Pulse (!) 56 Temp 36.4 C (97.5 F) Resp 18 Wt 84.4 kg (186 lb) SpO2 99% BMI 24.76 kg/m KPS: 100 General Appearance: Alert and oriented. No acute distress. HEENT: NCAT. Sclera anicteric. PERRL. EOMI. Oral cavity and oropharynx: Evidence of mild improved mucositis posterior oropharynx posterior tongue no ulceration no Neck: Normal ROM. No palpable cervical or supraclavicular adenopathy. 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 No clinical evidence of persistent disease. He is scheduled for PET scan on . Plan to see him back after this. He continues close surveillance with Dr. Forbes. 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 INTERVAL HISTORY: Patient states he is doing better still with mild to moderate dysphagia, moderate altered taste, oropharyngeal pain is improved. Denies dyspnea. Still with moderate fatigue. ALLERGIES No Known Allergies MEDICATIONS: amLODIPine (NORVASC) 10 mg tablet Take 10 mg by mouth once daily. lisinopril (ZESTRIL, PRINIVIL) 40 mg tablet Take 40 mg by mouth once daily. doxazosin (CARDURA) 4 mg tablet Take 4 mg by mouth once daily. pravastatin (PRAVACHOL) 20 mg tablet Take 20 mg by mouth once daily. ibuprofen (MOTRIN) 200 mg tablet Take 200 mg by mouth every 6 hours as needed. diphenhydrAMINE 12.5 mg/5 mL lidocaine visc 2% MAALOX 200-200-20 mg/5 mL nystatin prednisoLONE 15 mg/5 mL oral liquid 1:1:1:1:1 (CPD) Swish and swallow 10 mL by mouth every 6 hours as needed. HYDROcodone-acetaminophen (HYCET) 7.5-325 mg/15 mL oral liquid Take 10 mL by mouth every 6 hours as needed for pain. Take with stool softener. prochlorperazine (COMPAZINE) 10 mg tablet Take 1 tablet by mouth every 6 hours as needed. ondansetron (ZOFRAN) 8 mg tablet Take 1 tablet by mouth every 8 hours as needed for nausea/vomiting. REVIEW OF SYSTEMS: GENERAL: SEE HPI. HEENT: SEE HPI. NECK: Negative for masses in the neck. RESPIRATORY: Negative for cough or shortness of breath. CARDIAC: Negative for chest pain, palpitations, murmurs, or syncopal episodes. GI: Negative for nausea, vomiting, diarrhea, constipation, blood per rectum, or melena. : Negative for dysuria, hematuria, urgency, frequency or incontinence. MUSCULOSKELETAL: Negative for limitations in movement, pain, or swelling. NEURO: Negative for dizziness, headache, weakness or numbness. HEMATOLOGIC: Negative for bleeding or easy bruising. SKIN: Negative, except for mild to moderate irritation bilateral neck PHYSICAL EXAM: VS: BP 120/74 Pulse (!) 55 Temp 36.3 C (97.3 F) Resp 16 Wt 83 kg (183 lb) SpO2 99% BMI 24.36 kg/m KPS: 100 General Appearance: Alert and oriented. No acute distress. HEENT: NCAT. Sclera anicteric. PERRL. EOMI. Oral cavity and oropharynx: Evidence of mild improved mucositis posterior oropharynx posterior tongue no ulceration no Neck: Normal ROM. No palpable cervical or supraclavicular adenopathy. 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 No clinical evidence of persistent or recurrent disease. Recommend posttreatment PET scan 12 weeks from completion of treatment. Close surveillance with Dr. Forbes. Signed by: Nino Esposito MD cc: Naty Dowling Josephine [address] [place] [address] [place] [phone] Nino Esposito [address] [place] [address] [place] [id number] documented in this encounter [facility] 01-20-2023 Miscellaneous Notes Pt states he has a urologist appointment in two weeks. Chiqui Modi RN Please call patient and advise that now that he is done with his treatment, he should see Urology regarding the abnormal prostate on PET scan and the elevated PSA. Please schedule. Vanesa Gomez PA-C documented in this encounter [facility] 01-20-2023 History of Present illness Narrative Images from the original note were not included. PATIENT NAME: Caitlin Elmore [facility] NO.: [id number] ATTENDING PHYSICIAN: Elizabeth Borjas MD DATE OF SERVICE: January 20, 2023 (Elements copied from my note dated January 13 2023, have been reviewed and updated where appropriate, and all reflect current assessment and medical decision making during today's encounter, January 20, 2023) CC: Follow up Diagnosis: HPV positive BOT SCC Treatment History: Concurrent Cisplatin and XRT 11/21/2021- XRT completed 01/06/2023 and last dose of chemo 12/21/2022 ( Total [place] dose= 200 mg/m2) HPI: Mr. Elmore returns for follow up. Tongue pain is down to a 2-3 out of 10. Eating better. Drinking well. Taste is still off at times. Seeing Dr. Forbes next week. PAST MEDICAL HISTORY Diagnosis Date Hard of hearing HTN (hypertension) Hypercholesteremia Social History Tobacco Use Smoking status: Former Packs/day: 1.00 Years: 35.00 Pack years: 35.00 Types: Cigarettes Quit date: 10/13/2022 Years since quittin.2 Passive exposure: Past Smokeless tobacco: Former Vaping Use Vaping Use: Never used Substance Use Topics Alcohol use: Yes Comment: occ Drug use: Not Currently Types: Marijuana FAMILY HISTORY Problem Relation Age of Onset Prostate Cancer Father Thyroid Cancer Sister Past medical, social and family history reviewed without any changes. REVIEW OF SYSTEMS GENERAL: No weight loss, malaise or fevers. No night sweats. HEENT: Negative for headaches, No changes in hearing or vision, no nose bleeds or other nasal problems.+tongue pain RESPIRATORY: Negative for cough, wheezing and shortness of breath CARDIOVASCULAR: Negative for chest pain, leg swelling and palpitations GI: Negative for abdominal discomfort, blood in stools or black stools and change in bowel habits : Negative for dysuria, frequency and incontinence MUSCULOSKELETAL: Negative for joint pain or swelling, back pain, and muscle pain. SKIN: Negative for lesions, rash, and itching. HEMATOLOGY/LYMPHOLOGY Negative for prolonged bleeding, bruising easily, and swollen nodes. NEURO: Negative for numbness or tingling of hands/feet. No weakness. PHYSICAL EXAMINATION: BP 111/66 Pulse 71 Temp (Src) 97.6 (Temporal) Resp 16 Ht 6' .677 (1.85m) Wt 182 lb 12.8 oz (82.9kg) SpO2 99% BMI 24.33 kg/(m^2). ECOG PERFORMANCE STATUS: 1- Restricted in physically strenuous activity. Carries out light duty. General: Alert and oriented, no distress, pleasant and cooperative. Heart: Regular, normal S1 and S2, no murmurs, rubs, or gallops Lungs: Clear to auscultation bilaterally Abdomen: Benign Extremities: Feet/ankles without edema, posterior tibial pulses full and symmetrical LABS: Glucose (mg/dL) Date Value 01/13/2023 111 Potassium (mmol/L) Date Value 01/13/2023 3.9 Sodium (mmol/L) Date Value 01/13/2023 136 Chloride (mmol/L) Date Value 01/13/2023 99 CO2 (mmol/L) Date Value 01/13/2023 29 Creatinine (mg/dL) Date Value 01/13/2023 1.20 BUN (mg/dL) Date Value 01/13/2023 22 Anion Gap (mmol/L) Date Value 01/13/2023 8 Calcium, Total (mg/dL) Date Value 01/13/2023 10.2 Protein, Total (g/dL) Date Value 01/11/2023 6.5 Albumin (g/dL) Date Value 01/11/2023 4.0 Bilirubin, Total (mg/dL) Date Value 01/11/2023 0.4 Alkaline Phosphatase (U/L) Date Value 01/11/2023 63 AST (U/L) Date Value 01/11/2023 9 ALT (U/L) Date Value 01/11/2023 14 WBC Date Value Ref Range Status 01/20/2023 3.92 3.70 - 11.00 k/uL Final RBC Date Value Ref Range Status 01/20/2023 3.36 (L) 4.20 - 6.00 m/uL Final Hemoglobin Date Value Ref Range Status 01/20/2023 10.0 (L) 13.0 - 17.0 g/dL Final Hematocrit Date Value Ref Range Status 01/20/2023 29.4 (L) 39.0 - 51.0 % Final MCV Date Value Ref Range Status 01/20/2023 87.5 80.0 - 100.0 fL Final MCH Date Value Ref Range Status 01/20/2023 29.8 26.0 - 34.0 pg Final MCHC Date Value Ref Range Status 01/20/2023 34.0 30.5 - 36.0 g/dL Final RDW-CV Date Value Ref Range Status 01/20/2023 16.3 (H) 11.5 - 15.0 % Final Platelet Count Date Value Ref Range Status 01/20/2023 176 150 - 400 k/uL Final MPV Date Value Ref Range Status 01/20/2023 7.9 (L) 9.0 - 12.7 fL Final Abs Neut Date Value Ref Range Status 01/20/2023 2.81 1.45 - 7.50 k/uL Final Lymphocytes % Date Value Ref Range Status 01/20/2023 11.0 % Final Abs Lymph Date Value Ref Range Status 01/20/2023 0.43 (L) 1.00 - 4.00 k/uL Final Monocytes % Date Value Ref Range Status 01/20/2023 14.5 % Final Abs Gates Date Value Ref Range Status 01/20/2023 0.57 <0.87 k/uL Final Eosinophils % Date Value Ref Range Status 01/20/2023 0.8 % Final Abs Eosin Date Value Ref Range Status 01/20/2023 0.03 <0.46 k/uL Final Basophils % Date Value Ref Range Status 01/20/2023 0.5 % Final Abs Baso Date Value Ref Range Status 01/20/2023 <0.03 <0.11 k/uL Final PATH: L BOT mass Biopsy 10/18/2022: 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 IMAGING: CT Neck 10/2022: PET 11/2022: 1. Neck: Intensely hypermetabolic right oropharyngeal region mass compatible with neoplastic process. Hypermetabolic right cervical lymphadenopathy suspicious for metastatic lymphadenopathy. 2. Chest: No evidence of FDG avid neoplastic process 3. Abdomen and pelvis: No evidence of FDG avid metastases Increased activity in the prostatic region correlation with PSA is suggested. 4. Skeleton: No hypermetabolic osseous lesions Assessment and Plan: Caitlin Elmore is a 57 year old year old male here for follow up. 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 2. PET positive in the prostate area and will get PSA and will address after completion of therapy and will arrange for a referral 3. Arrange for PET scan in 10-12 weeks with a follow up 4. Follow up on patient's CMP from today 5. Anemia-likely chemo induced, monitor for now Vanesa Gomez PA-C CC: Naty Burton MD documented in this encounter [facility] 01-13-2023 History of Present illness Narrative Vanesa Gomez would like to notify patient that his creat is better. Would like to see him in 1 week with labs and IVF. Encourage patient to take 60oz of water daily. Treatment nurse notified and will make patient aware. documented in this encounter [facility] 01-13-2023 History of Present illness Narrative Images from the original note were not included. PATIENT NAME: Caitlin Elmore [facility] NO.: [id number] ATTENDING PHYSICIAN: Elizabeth Borjas MD DATE OF SERVICE: January 13, 2023 (Elements copied from Dr. Borjas's note dated January 11, 2023, have been reviewed and updated where appropriate, and all reflect current assessment and medical decision making during today's encounter, January 13, 2023) CC: Follow up and fluids Diagnosis: HPV positive BOT SCC Treatment History: Concurrent Cisplatin and XRT 11/21/2021- XRTY completed 01/06/2023 and last dose of chemo 12/21/2022 ( Total [place] dose= 200 mg/m2) HPI: Mr. Elmore returns for follow up. He still reports tongue pain. He is eating and drinking fairly well. BMX and hycet do help. He reports drinking about 40 ounces of water a day. PAST MEDICAL HISTORY Diagnosis Date Hard of hearing HTN (hypertension) Hypercholesteremia Social History Tobacco Use Smoking status: Former Packs/day: 1.00 Years: 35.00 Pack years: 35.00 Types: Cigarettes Quit date: 10/13/2022 Years since quittin.2 Passive exposure: Past Smokeless tobacco: Former Vaping Use Vaping Use: Never used Substance Use Topics Alcohol use: Yes Comment: occ Drug use: Not Currently Types: Marijuana FAMILY HISTORY Problem Relation Age of Onset Prostate Cancer Father Thyroid Cancer Sister Past medical, social and family history reviewed without any changes. REVIEW OF SYSTEMS GENERAL: No weight loss, malaise or fevers. No night sweats. HEENT: Negative for headaches, No changes in hearing or vision, no nose bleeds or other nasal problems.+tongue pain RESPIRATORY: Negative for cough, wheezing and shortness of breath CARDIOVASCULAR: Negative for chest pain, leg swelling and palpitations GI: Negative for abdominal discomfort, blood in stools or black stools and change in bowel habits : Negative for dysuria, frequency and incontinence MUSCULOSKELETAL: Negative for joint pain or swelling, back pain, and muscle pain. SKIN: Negative for lesions, rash, and itching. HEMATOLOGY/LYMPHOLOGY Negative for prolonged bleeding, bruising easily, and swollen nodes. NEURO: Negative for numbness or tingling of hands/feet. No weakness. PHYSICAL EXAMINATION: BP 119/68 Pulse 70 Temp (Src) 97.9 (Temporal) Resp 16 Ht 6' .677 (1.85m) Wt 178 lb 9.6 oz (81.0kg) SpO2 95% BMI 23.77 kg/(m^2). ECOG PERFORMANCE STATUS: 1- Restricted in physically strenuous activity. Carries out light duty. PHYSICAL EXAMINATION General: Alert and oriented, no distress, pleasant and cooperative. Heart: Regular, normal S1 and S2, no murmurs, rubs, or gallops Lungs: Clear to auscultation bilaterally Abdomen: Benign Extremities: Feet/ankles without edema, posterior tibial pulses full and symmetrical Skin: skin to neck is erythematous, no desquamation noted LABS: Glucose (mg/dL) Date Value 01/13/2023 111 Potassium (mmol/L) Date Value 01/13/2023 3.9 Sodium (mmol/L) Date Value 01/13/2023 136 Chloride (mmol/L) Date Value 01/13/2023 99 CO2 (mmol/L) Date Value 01/13/2023 29 Creatinine (mg/dL) Date Value 01/13/2023 1.20 BUN (mg/dL) Date Value 01/13/2023 22 Anion Gap (mmol/L) Date Value 01/13/2023 8 Calcium, Total (mg/dL) Date Value 01/13/2023 10.2 Protein, Total (g/dL) Date Value 01/11/2023 6.5 Albumin (g/dL) Date Value 01/11/2023 4.0 Bilirubin, Total (mg/dL) Date Value 01/11/2023 0.4 Alkaline Phosphatase (U/L) Date Value 01/11/2023 63 AST (U/L) Date Value 01/11/2023 9 ALT (U/L) Date Value 01/11/2023 14 WBC Date Value Ref Range Status 01/13/2023 3.23 (L) 3.70 - 11.00 k/uL Final RBC Date Value Ref Range Status 01/13/2023 3.93 (L) 4.20 - 6.00 m/uL Final Hemoglobin Date Value Ref Range Status 01/13/2023 11.3 (L) 13.0 - 17.0 g/dL Final Hematocrit Date Value Ref Range Status 01/13/2023 33.6 (L) 39.0 - 51.0 % Final MCV Date Value Ref Range Status 01/13/2023 85.5 80.0 - 100.0 fL Final MCH Date Value Ref Range Status 01/13/2023 28.8 26.0 - 34.0 pg Final MCHC Date Value Ref Range Status 01/13/2023 33.6 30.5 - 36.0 g/dL Final RDW-CV Date Value Ref Range Status 01/13/2023 15.5 (H) 11.5 - 15.0 % Final Platelet Count Date Value Ref Range Status 01/13/2023 139 (L) 150 - 400 k/uL Final MPV Date Value Ref Range Status 01/13/2023 8.0 (L) 9.0 - 12.7 fL Final Abs Neut Date Value Ref Range Status 01/13/2023 2.52 1.45 - 7.50 k/uL Final Lymphocytes % Date Value Ref Range Status 01/13/2023 8.4 % Final Abs Lymph Date Value Ref Range Status 01/13/2023 0.27 (L) 1.00 - 4.00 k/uL Final Monocytes % Date Value Ref Range Status 01/13/2023 11.8 % Final Abs Gates Date Value Ref Range Status 01/13/2023 0.38 <0.87 k/uL Final Eosinophils % Date Value Ref Range Status 01/13/2023 1.2 % Final Abs Eosin Date Value Ref Range Status 01/13/2023 0.04 <0.46 k/uL Final Basophils % Date Value Ref Range Status 01/13/2023 0.3 % Final Abs Baso Date Value Ref Range Status 01/13/2023 <0.03 <0.11 k/uL Final PATH: L BOT mass Biopsy 10/18/2022: 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 IMAGING: CT Neck 10/2022: PET 11/2022: 1. Neck: Intensely hypermetabolic right oropharyngeal region mass compatible with neoplastic process. Hypermetabolic right cervical lymphadenopathy suspicious for metastatic lymphadenopathy. 2. Chest: No evidence of FDG avid neoplastic process 3. Abdomen and pelvis: No evidence of FDG avid metastases Increased activity in the prostatic region correlation with PSA is suggested. 4. Skeleton: No hypermetabolic osseous lesions Assessment and Plan: Caitlin Elmore is a 57 year old year old male here for follow up. 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 2. PET positive in the prostate area and will get PSA and will address after completion of therapy and will need referral 3. Follow nutrition and monitor weight 4. 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 INTERVAL HISTORY: Patient with some continued difficulty with dysphagia, and swallowing. Has had IV fluid rehydration a couple times in the last week with significant improvement. He feels that he has improved over the last couple days. Denies fever. Denies headache. ALLERGIES No Known Allergies MEDICATIONS: diphenhydrAMINE 12.5 mg/5 mL lidocaine visc 2% MAALOX 200-200-20 mg/5 mL nystatin prednisoLONE 15 mg/5 mL oral liquid 1:1:1:1:1 (CPD) Swish and swallow 10 mL by mouth every 6 hours as needed. HYDROcodone-acetaminophen (HYCET) 7.5-325 mg/15 mL oral liquid Take 10 mL by mouth every 6 hours as needed for pain. Take with stool softener. amLODIPine (NORVASC) 10 mg tablet Take 10 mg by mouth once daily. prochlorperazine (COMPAZINE) 10 mg tablet Take 1 tablet by mouth every 6 hours as needed. ondansetron (ZOFRAN) 8 mg tablet Take 1 tablet by mouth every 8 hours as needed for nausea/vomiting. lisinopril (ZESTRIL, PRINIVIL) 40 mg tablet Take 40 mg by mouth once daily. doxazosin (CARDURA) 4 mg tablet Take 4 mg by mouth once daily. pravastatin (PRAVACHOL) 20 mg tablet Take 20 mg by mouth once daily. ibuprofen (MOTRIN) 200 mg tablet Take 200 mg by mouth every 6 hours as needed. REVIEW OF SYSTEMS: GENERAL: SEE HPI. HEENT: SEE HPI. NECK: Negative for masses in the neck. RESPIRATORY: Negative for cough or shortness of breath. CARDIAC: Negative for chest pain, palpitations, murmurs, or syncopal episodes. GI: Negative for nausea, vomiting, diarrhea, constipation, blood per rectum, or melena. : Negative for dysuria, hematuria, urgency, frequency or incontinence. MUSCULOSKELETAL: Negative for limitations in movement, pain, or swelling. NEURO: Negative for dizziness, headache, weakness or numbness. HEMATOLOGIC: Negative for bleeding or easy bruising. SKIN: Negative, except for mild to moderate irritation bilateral neck PHYSICAL EXAM: VS: BP 132/70 Pulse 81 Temp 36.9 C (98.4 F) Resp 18 Wt 81.4 kg (179 lb 6.4 oz) SpO2 99% BMI 23.88 kg/m KPS: 100 General Appearance: Alert and oriented. No acute distress. HEENT: NCAT. Sclera anicteric. PERRL. EOMI. Oral cavity and oropharynx: Evidence of mucositis posterior oropharynx posterior tongue no ulceration no exudate somewhat limited tongue mobility, overall improved Neck: Normal ROM. No palpable cervical or supraclavicular adenopathy. 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 By exam and by imaging during treatment he does appear to have had a significant response to treatment. He has persistent mucositis and dysphagia but this is improving. Continue conservative care including IV hydration as necessary. Plan to see patient back in 1 to 2 weeks for further follow-up. Patient will have continued follow-up with Dr. Forbes Signed by: Nino Esposito MD cc: Naty Burton [address] [place] [address] [place] [address] Nino Esposito [address] [place] [address] [place] [id number] documented in this encounter [facility] 01-11-2023 History of Present illness Narrative Images from the original note were not included. PATIENT NAME: Caitlin Elmore [facility] NO.: [id number] ATTENDING PHYSICIAN: Elizabeth Borjas MD DATE OF SERVICE: January 11, 2023 Some of the elements of this note have been copied from my previous progress note dated 12/21/2022. All the information has been reviewed carefully. Dear No referring provider defined for this encounter. here is an update on a follow up visit on male Caitlin Elmore at the clinic January 11, 2023 Diagnosis: HPV positive BOT SCC Treatment History: Concurrent Cisplatin and XRT 11/21/2021- XRTY completed 01/06/2023 and last dose of chemo 12/21/2022 ( Total [place] dose= 200 mg/m2) HPI: Caitlin Elmore is a 57 year old year old male here for follow up. Increased mouth pain and also trying to eat and drink as much as he can. Denies any fevers and or chills. Denies any diarrhea PAST MEDICAL HISTORY Diagnosis Date Hard of hearing HTN (hypertension) Hypercholesteremia Social History Tobacco Use Smoking status: Former Packs/day: 1.00 Years: 35.00 Pack years: 35.00 Types: Cigarettes Quit date: 10/13/2022 Years since quittin.2 Passive exposure: Past Smokeless tobacco: Former Vaping Use Vaping Use: Never used Substance Use Topics Alcohol use: Yes Comment: occ Drug use: Not Currently Types: Marijuana FAMILY HISTORY Problem Relation Age of Onset Prostate Cancer Father Thyroid Cancer Sister Past medical, social and family history reviewed without any changes. REVIEW OF SYSTEMS GENERAL: No weight loss, malaise or fevers. No night sweats. HEENT: Negative for headaches, No changes in hearing or vision, no nose bleeds or other nasal problems. RESPIRATORY: Negative for cough, wheezing and shortness of breath CARDIOVASCULAR: Negative for chest pain, leg swelling and palpitations GI: Negative for abdominal discomfort, blood in stools or black stools and change in bowel habits : Negative for dysuria, frequency and incontinence MUSCULOSKELETAL: Negative for joint pain or swelling, back pain, and muscle pain. SKIN: Negative for lesions, rash, and itching. HEMATOLOGY/LYMPHOLOGY Negative for prolonged bleeding, bruising easily, and swollen nodes. NEURO: Negative for numbness or tingling of hands/feet. No weakness. PHYSICAL EXAMINATION: BP 104/62 Pulse 90 Temp (Src) 97.5 (Temporal) Resp 16 Ht 6' .677 (1.85m) Wt 180 lb 9.6 oz (81.9kg) SpO2 93% BMI 24.04 kg/(m^2). Wt 90.4 kg (199 lb 6.4 oz) BMI 26.54 kg/m2 Last 3 Encounter Wt Readings: Date: Wt: 11/29/2022 90.4 kg (199 lb 6.4 oz) 11/28/2022 88.9 kg (196 lb) 11/21/2022 92.1 kg (203 lb) General appearance:ECOG PERFORMANCE STATUS: 1- Restricted in physically strenuous activity. Carries out light duty. Patient in NAD. Skin: Skin color, texture, turgor normal. No rashes or lesions. Eyes: Anicteric sclera. Pupils are equally round and reactive to light. Extraocular movements are intact. Lymph Nodes: Cervical node on the L decreased in size Oropharynx: Lips, mucosa, and tongue normal. Back: No pain to percussion. Negative SLR test Lungs clear to auscultation, No wheezing or rhonchi Heart: RRR without murmur, gallop, or rubs. Abdomen soft, non-tender. No masses, organomegaly Extremities: No deformities. No edema Neuro: Gait and speech normal. Reflexes normal and symmetric. Muscular strength intact. Sensation grossly intact. Rectal: Deferred : Deferred LABS: Glucose (mg/dL) Date Value 01/11/2023 141 Potassium (mmol/L) Date Value 01/11/2023 3.9 Sodium (mmol/L) Date Value 01/11/2023 137 Chloride (mmol/L) Date Value 01/11/2023 100 CO2 (mmol/L) Date Value 01/11/2023 31 Creatinine (mg/dL) Date Value 01/11/2023 1.38 BUN (mg/dL) Date Value 01/11/2023 26 Anion Gap (mmol/L) Date Value 01/11/2023 6 Calcium, Total (mg/dL) Date Value 01/11/2023 10.1 Protein, Total (g/dL) Date Value 01/11/2023 6.5 Albumin (g/dL) Date Value 01/11/2023 4.0 Bilirubin, Total (mg/dL) Date Value 01/11/2023 0.4 Alkaline Phosphatase (U/L) Date Value 01/11/2023 63 AST (U/L) Date Value 01/11/2023 9 ALT (U/L) Date Value 01/11/2023 14 WBC Date Value Ref Range Status 01/11/2023 1.85 (L) 3.70 - 11.00 k/uL Preliminary RBC Date Value Ref Range Status 01/11/2023 3.91 (L) 4.20 - 6.00 m/uL Preliminary Hemoglobin Date Value Ref Range Status 01/11/2023 11.2 (L) 13.0 - 17.0 g/dL Preliminary Hematocrit Date Value Ref Range Status 01/11/2023 33.1 (L) 39.0 - 51.0 % Preliminary MCV Date Value Ref Range Status 01/11/2023 84.7 80.0 - 100.0 fL Preliminary MCH Date Value Ref Range Status 01/11/2023 28.6 26.0 - 34.0 pg Preliminary MCHC Date Value Ref Range Status 01/11/2023 33.8 30.5 - 36.0 g/dL Preliminary RDW-CV Date Value Ref Range Status 01/11/2023 15.1 (H) 11.5 - 15.0 % Preliminary Platelet Count Date Value Ref Range Status 01/11/2023 111 (L) 150 - 400 k/uL Preliminary MPV Date Value Ref Range Status 01/11/2023 8.3 (L) 9.0 - 12.7 fL Preliminary Abs Neut (Segs + Bands) Date Value Ref Range Status 01/04/2023 1.44 (L) 1.45 - 7.50 k/uL Final Lymphocytes % Date Value Ref Range Status 01/04/2023 7.0 % Final Abs Lymph (Normal + Reactive) Date Value Ref Range Status 01/04/2023 0.13 (L) 1.00 - 4.00 k/uL Final Monocytes % Date Value Ref Range Status 01/04/2023 13.0 % Final Abs Gates Date Value Ref Range Status 01/04/2023 0.25 <0.87 k/uL Final Eosin% Date Value Ref Range Status 01/04/2023 4.0 % Final Abs Eosin Date Value Ref Range Status 01/04/2023 0.08 <0.46 k/uL Final Basophils % Date Value Ref Range Status 01/04/2023 0.0 % Final Abs Baso Date Value Ref Range Status 01/04/2023 0.00 <0.11 k/uL Final PATH: L BOT mass Biopsy 10/18/2022: 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 IMAGING: CT Neck 10/2022: PET 11/2022: 1. Neck: Intensely hypermetabolic right oropharyngeal region mass compatible with neoplastic process. Hypermetabolic right cervical lymphadenopathy suspicious for metastatic lymphadenopathy. 2. Chest: No evidence of FDG avid neoplastic process 3. Abdomen and pelvis: No evidence of FDG avid metastases Increased activity in the prostatic region correlation with PSA is suggested. 4. Skeleton: No hypermetabolic osseous lesions Assessment and Plan: Caitlin Elmore is a 57 year old year old male here for follow up. 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 2. PET positive in the prostate area and will get PSA and will addres after completion of therapy and will need referral 3. Follow nutrition and monitor weight 4. IV Hydration today and also on Monday monitor creat Thank you for the kind referral. If there are any questions and or concerns please do not hesitate to contact me at [phone]. Elizabeth Borjas MD Hematology/Medical Oncology [facility] spent a total of 30 minutes on the date of the service which included preparing to see the patient, [id number] patient care, completing clinical documentation, obtaining and/or reviewing separately obtained history, performing a medically appropriate examination, counseling and educating the patient/family/caregiver, and ordering medications, tests, or procedures. CC: Naty Burton MD documented in this encounter [facility] 01-09-2023 Miscellaneous Notes Pharmacist Refill Authorization Review Name: Caitlin Elmore Date: 01/09/2023 Time: 8:53 AM Refill authorization request(s) received and reviewed under effective consult agreement. Upon review, did confirm that an active patient-provider relationship exists and that the prescriber is a participating physician under the consult agreement. Last office visit in this department: Visit date not found Last [facility] visit in this department: Visit date not found Next appointment in this department: 01/11/2023 Elizabeth Borjas MD The medication(s) fall under the following categories: Category 3: Medication(s) does not qualify for pharmacist renewal due to no consent present. Renewal request sent to provider for review. Requested Prescriptions Pending Prescriptions Disp Refills diphenhydrAMINE 12.5 mg/5 mL lidocaine visc 2% MAALOX 200-200-20 mg/5 mL nystatin prednisoLONE 15 mg/5 mL oral liquid 1:1:1:1:1 (CPD) 300 mL 1 Sig: Take 10 mL by mouth every 6 hours as needed. Swish and swallow Number of refills approved in this encounter: 0 Number of refills forwarded to provider for review: 1 Number of refills denied in this encounter: 0 Sang Cisneros RPh documented in this encounter [facility] 01-06-2023 History of Present illness Narrative Oncology Nutrition Therapy Progress Note RECOMMENDED MALNUTRITION DIAGNOSIS: SEVERE PROTEIN-CALORIE MALNUTRITION per APRIL Fortune on 12/19/2022 Some elements copied from my note on 12/26/2022, have been updated and all reflect current decision making from today, 01/06/2023 Nutrition Intervention: -continue small frequent meals and snacks -continue soft, easy to swallow foods if able to tolerate -continue supplementation -boost VHC; goal of 2x per day -ok to increase usage if intakes of solids decrease -encouraged adequate hydration -continue calorie/protein boosting techniques Nutrition Monitoring & Evaluation: -PO Intake -Wt status -BM's -Supplement tolerance/acceptance -Biochemical Markers -Plan of care Date of last encounter: December 26, 2022 Patient met goal(s): Yes Patient's symptoms are: Oral: taste changes and painful swallowing Behavioral: altered appetite Pt presents for nutrition counseling follow up. Pt completed RT today and has completed all cycles of cisplatin. Pt denies any current chewing/swallowing issues, but does c/o pain with swallowing. Pt reporting varied appetite, but states he is able to still tolerate some soft solids such as eggs and hamburger mac/cheese. He is taking ONS and trying to drink plenty of fluids. Pt aware he can request IVF through nursing and physician if he feels he needs it. READINESS TO LEARN Cognitive ability: Alert and oriented Motivation to learn: Interested Family support: High - Very involved in pt care Instruction provided to: Patient and family member Patient learns best by: Individual Instruction Factors affecting learning: None Physical limitations affecting learning: None Educational materials provided: none this visit Need for Follow up: will continue to follow Referred by: Biju LOW Billing Type: Re-assess/15 min 1 unit Billed Time: 15 minutes Signed by: Yadi Simms, MS, RDN, LD documented in this encounter [facility] 01-06-2023 History of Present illness Narrative [facility] Radiation Oncology Department RADIATION ONCOLOGY - COMPLETION NOTE PATIENT: CAITLIN ELMOREDOB: 1965 DATES OF TREATMENT: 11/21/22-01/06/23 DIAGNOSIS: Oropharyngeal cancer, right base of tongue,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 CLINICAL SUMMARY: The patient received concurrent weekly chemotherapy. He tolerated radiation with mild to moderate mucositis and radiation related dermatitis with weitght loss requiring replanning after 4 weeks. The patient was able to complete treatment as intended without break interruption or modification of prescription plan. Cone beam CT showed excellent tumor response during the course of treatment. The disease response will be assessed in clinic. The patient will be seen again in 2 weeks for post radiation follow-up. Staff Physician Alex Esposito M.D. / MARGIE 32:38 PM Electronically Signed cc: Dr. 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 COURSE: definitive and concurrent chemotherapy Current dose: 5200 cGy in 26 fx Planned dose: 7000 cGy in 35 fx SUBJECTIVE: Swallowing discomfort mostly in the tiny area. Somewhat worse than last week. Still able to eat. Taste is off. Did require IV fluids last week. PHYSICAL EXAM: 01/02/23 1355 BP: 127/69 Pulse: 80 Resp: 16 Temp: 36.6 C (97.9 F) SpO2: 99% Weight: 83 kg (183 lb) KPS: 100 General Appearance: Alert and oriented. No acute distress. Mild patchy erythema posterior oropharynx, no exudate or ulceration no obvious tumor or mass. Still with tongue asymmetry level 2 lymph node not palpable IMAGING/LAB RESULTS: Hemoglobin (g/dL) Date Value 12/28/2022 12.0 Hematocrit (%) Date Value 12/28/2022 35.5 WBC (k/uL) Date Value 12/28/2022 3.77 Platelet Count (k/uL) Date Value 12/28/2022 58 TOXICITY ASSESSMENT (CTC v4.0): Fatigue:grade 1 - Fatigue relieved by rest Radiation Dermatitis: grade 1 Mucositis: Grade 2 Treatment chart checked: Yes Patient treatment site reviewed and verified:Yes Port films reviewed and current:Yes Medications started: None ASSESSMENT/PLAN: Clinically stable. Showing good response. Continue supportive care. He sees medical oncology to see if further chemotherapy can be given depending on platelet count. Toxicity within expected parameters. Continue radiation treatment as planned. Nino Esposito MD documented in this encounter [facility] 01-02-2023 History of Present illness Narrative CAITLIN ELMORE [id number] 01/02/2023 [facility] Department of Radiation Oncology Treatment Planning Note Choose an item. Choose an item. Addendum to the 12/26/2022 treatment planning. Patient has lost weight sponsors had changed and dose analysis showed a replan as necessary. Repeat CT was done and treatment planning position. Patient was recontoured every plan. Please see 12/26/2022 treatment planning. ]] Electronically Signed Alex Esposito M.D. :24 PM Addendum to the 12/26/2022 treatment planning. Patient has lost weight sponsors had changed and dose analysis showed a replan as necessary. Repeat CT was done and treatment planning position. Patient was recontoured every plan. Please see 12/26/2022 treatment planning. documented in this encounter [facility] 12-30-2022 Miscellaneous Notes Hydration orders placed Vanesa Gomez PA-C Олег Dixon is here for radiation therapy and would like to have IV fluids today. He said he's feeling real run down . He said he is having some difficulty swallowing-food feels like it's getting stuck. He denies pain with swallowing. He said he is eating soft foods, chewing well, and drinks 2 high calorie Boost per day. He said he felt lightheaded this a.m. but not at this moment. VS: BP 118/71, HR 86, T 98.7, R 16, SpO2 96% RA resting. Vanesa will you please enter hydration orders if you are in agreement? Thanks Janene Miller LPN documented in this encounter [facility] 12-29-2022 Miscellaneous Notes TOXICITY CHECK SYMPTOM ASSESSMENT The patient is on Cisplatin with RT Headache: No Visual Changes: No Dizziness: Yes patient states he was dizzy on Monday and Monday, but this has resolved. Do you have any periods of confusion? No Mood changes: No Mouth or throat pain: Yes pt states no changes in his ear/neck/throat/tongue pain. Takes Motrin when needed but this isn't very often, maybe once every few days. Appetite: no changes in appetite, appetite good Taste changes: No Nausea: No takes an antiemetic every morning Vomiting: No Heartburn: No. Weight gain/loss: No Episodes of palpitations/chest discomfort/pressure/pain No Shortness of breath: No Cough: Yes; productive clear sputum Diarrhea: no Constipation: no Bladder/Urinary Changes: None Pain: as mentioned above Fever: No Chills: No Cold sensitivity: No Numbness/weakness: No Edema: No Skin changes: No Itching: No Yellowing of skin or eyes: No Musculoskeletal/joint changes/issues No Bleeding issues: No Activity Level (0-100%): 50% Do you need to take naps? Yes; Do you wake up feeling rested? Yes Does the patient need interventions or same day appointment:No Reinforced CURRENT treatment education based on current and anticipated symptoms. Discussed port/line care and patient verbalizes understanding: Yes Patient instructed to contact office or after hours Hematology/Oncology fellow for: temperature ? 100.4; questions or concerns. Patient verbalized understanding of when to seek medical attention and after hours number protocol. 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 COURSE: definitive and concurrent chemotherapy Current dose: 5200 cGy in 26 fx Planned dose: 7000 cGy in 35 fx SUBJECTIVE: Having some right ear discomfort 3 out of 10. Still some swallowing discomfort 2 out of 10. Thicker saliva. PHYSICAL EXAM: 12/26/22 1328 BP: 124/79 Pulse: 78 Resp: 18 Temp: 36.6 C (97.8 F) TempSrc: Oral SpO2: 97% Weight: 83.8 kg (184 lb 12.8 oz) KPS: 100 General Appearance: Alert and oriented. No acute distress. Mild patchy erythema posterior oropharynx, no exudate or ulceration no obvious tumor or mass. Neck palpable right level 2 smaller IMAGING/LAB RESULTS: Hemoglobin (g/dL) Date Value 12/21/2022 12.9 Hematocrit (%) Date Value 12/21/2022 38.0 WBC (k/uL) Date Value 12/21/2022 6.27 Platelet Count (k/uL) Date Value 12/21/2022 85 TOXICITY ASSESSMENT (CTC v4.0): Fatigue:grade 1 - Fatigue relieved by rest Radiation Dermatitis: grade 1 Mucositis: Grade 1 Treatment chart checked: Yes Patient treatment site reviewed and verified:Yes Port films reviewed and current:Yes Medications started: None ASSESSMENT/PLAN: Clinically stable. ConeBeam CT shows tumor is continuing to respond. Cone beam CT however shows decreased girth of the neck, replanning CT scan done today. Toxicity within expected parameters. Continue radiation treatment as planned. Nino Esposito MD documented in this encounter [facility] 12-26-2022 History of Present illness Narrative Oncology Nutrition Therapy Progress Note RECOMMENDED MALNUTRITION DIAGNOSIS: SEVERE PROTEIN-CALORIE MALNUTRITION per APRIL Fortune on 12/19/2022 Some elements copied from my note on 12/19/2022, have been updated and all reflect current decision making from today, 12/26/2022 Nutrition Intervention: -aim for small frequent meals/snacks -try every 3 hours -reviewed tips for taste changes -discussed easy to swallow foods -discussed supplementation -trial boost VHC; goal of 2 per day -mix with ice cream if desired -incorporate calorie/protein boosting techniques -encouraged adequate hydration Nutrition Monitoring & Evaluation: -PO Intake -Wt status -BM's -Supplement tolerance/acceptance -Biochemical Markers -Plan of care Date of last encounter: December 19, 2022 Patient met goal(s): Partially Patient's symptoms are: Oral: taste changes and painful swallowing Behavioral: altered appetite Weight Concerns: weight loss Pt presents for nutrition counseling follow up. Pt currently being treated with RT, Cisplatin. Pt c/o pain and discomfort with swallowing. Pt c/o some mild nausea the day after chemotherapy, but states this is not interfering with po intakes. Pt denies any V/D/C. Appetite and intakes appear varied. Pt is consuming B, L, D and supplementing with one Boost VHC and one Boost Plus per day mixed with ice cream. Suggested pt utilize boost VHC twice per day instead to ensure supplementing with adequate calorie/protein intakes to maintain weight. Pt verbalized understanding. READINESS TO LEARN Cognitive ability: Alert and oriented Motivation to learn: Interested Family support: High - Very involved in pt care Instruction provided to: Patient and family member Patient learns best by: Multiple Methods Factors affecting learning: None Physical limitations affecting learning: None Educational materials provided: none this visit Need for Follow up: will continue to follow Referred by: Biju LOW Billing Type: Re-assess/15 min 1 unit Billed Time: 15 minutes Signed by: Yadi Simms MS, RDN, LD documented in this encounter [facility] 12-26-2022 History of Present illness Narrative CAITLIN ELMORE [id number] 12/26/2022 [facility] Radiation Oncology Department SIMULATION NOTE DATE OF SIMULATION: 12/26/2022 THERAPIST: Chani Cerna MACHINE: [email or web address] DIAGNOSIS: Malignant neoplasm of base of [id number] AREA: H&N CONTRAST: None Consent in Epic: Yes PATIENT POSITION: Supine. FIXATION DEVICE: In order to achieve accurate and reproducible treatments, the patient is immobilized with ORFIT AIO A time-out was conducted and recorded by the therapist. CT scan was completed for target localization and planning. Field arrangement will be determined after plan has been completed. The patient is scheduled for a verification simulation on the treatment machine to ensure proper set-up and field arrangement is correct prior to the first treatment of primary and boost abarca if applicable. Patient education will be completed per nursing. Electronically Signed Alex Esposito M.D. / NRS 33:42 PM documented in this encounter [facility] 12-26-2022 History of Present illness Narrative CAITLIN ELMORE [id number] 12/26/2022 [facility] Department of Radiation Oncology Treatment Planning Note For reasons stated in the consult note, Caitlin Elmore is a candidate for radiation therapy. Based on review and interpretation of the relevant diagnostic studies together with the exam findings, Caitlin Elmore was simulated on 12/26/2022 at which time the target volume and/or requisite abarca were delineated, as indicated in the simulation note, to be treated according to the prescription. The treatment target and organs at risk were contoured on the simulation scan using the fused PET /. Special consideration to these and other structures was given in light of the potential for increased toxicities of combined chemoradiation, re-treatment of a previously irradiated site/treatment of multiple sites concurrently/presence of pacemaker/presence of prosthesis in treatment field/hyperfractionation/stereota ctic body radiation therapy (SBRT). After reviewing multiple treatment plans with dosimetry, the best plan was approved to deliver the prescribed course of radiation to the target area using inverse planning to allow for the best isodose distribution, treating to the 97.1% isodose line with 6MV and 3 abarca. Custom MLC asym jaws for IMRT were the treatment devices used to shape/modify the beams. Limiting dose to normal tissue was confirmed upon review of the calculated dose volume histogram. IMRT planning was used because it best met the dose/volume constraints for the organs at risk for this patient, better than what could be achieved using conventional or 3D planning. The specific dose requirements for the PTV, organs at risk and dose-volume histograms are contained in this treatment plan and/or elsewhere in the medical record. A completed summary of this plan dated 12/28/22 incorporated herein by reference includes dose, beam arrangements, energy, blocking, isodose distribution, and/or ports and DVH. Electronically Signed Alex Esposito M.D. 33:21 PM documented in this encounter [facility] 12-21-2022 History of Present illness Narrative Images from the original note were not included. PATIENT NAME: Caitlin Elmore [facility] NO.: [id number] ATTENDING PHYSICIAN: Elizabeth Borjas MD DATE OF SERVICE: December 21, 2022 Some of the elements of this note have been copied from my previous progress note dated 11/29/2022. All the information has been reviewed carefully. Dear No referring provider defined for this encounter. here is an update on a follow up visit on male Caitlin Elmroe at the clinic December 21, 2022 Diagnosis: HPV positive BOT SCC Treatment History: Concurrent Cisplatin and XRT 11/21/2021 HPI: Caitlin Elmore is a 57 year old year old male here for follow up. Tolerating therapy well and trying to eat and denies any major pain issues and denies any diarrhea. Denies any neuropathy PAST MEDICAL HISTORY Diagnosis Date Hard of hearing HTN (hypertension) Hypercholesteremia Social History Tobacco Use Smoking status: Former Packs/day: 1.00 Years: 35.00 Pack years: 35.00 Types: Cigarettes Quit date: 10/13/2022 Years since quittin.1 Passive exposure: Past Smokeless tobacco: Former Vaping Use Vaping Use: Never used Substance Use Topics Alcohol use: Yes Comment: occ Drug use: Not Currently Types: Marijuana FAMILY HISTORY Problem Relation Age of Onset Prostate Cancer Father Thyroid Cancer Sister Past medical, social and family history reviewed without any changes. REVIEW OF SYSTEMS GENERAL: No weight loss, malaise or fevers. No night sweats. HEENT: Negative for headaches, No changes in hearing or vision, no nose bleeds or other nasal problems. RESPIRATORY: Negative for cough, wheezing and shortness of breath CARDIOVASCULAR: Negative for chest pain, leg swelling and palpitations GI: Negative for abdominal discomfort, blood in stools or black stools and change in bowel habits : Negative for dysuria, frequency and incontinence MUSCULOSKELETAL: Negative for joint pain or swelling, back pain, and muscle pain. SKIN: Negative for lesions, rash, and itching. HEMATOLOGY/LYMPHOLOGY Negative for prolonged bleeding, bruising easily, and swollen nodes. NEURO: Negative for numbness or tingling of hands/feet. No weakness. PHYSICAL EXAMINATION: BP 116/71 Pulse 69 Temp (Src) 97.5 (Temporal) Resp 18 Ht 6' .677 (1.85m) Wt 185 lb 12.8 oz (84.3kg) SpO2 97% BMI 24.73 kg/(m^2). Wt 90.4 kg (199 lb 6.4 oz) BMI 26.54 kg/m2 Last 3 Encounter Wt Readings: Date: Wt: 11/29/2022 90.4 kg (199 lb 6.4 oz) 11/28/2022 88.9 kg (196 lb) 11/21/2022 92.1 kg (203 lb) General appearance:ECOG PERFORMANCE STATUS: 1- Restricted in physically strenuous activity. Carries out light duty. Patient in NAD. Skin: Skin color, texture, turgor normal. No rashes or lesions. Eyes: Anicteric sclera. Pupils are equally round and reactive to light. Extraocular movements are intact. Lymph Nodes: Cervical node on the L decreased in size Oropharynx: Lips, mucosa, and tongue normal. Back: No pain to percussion. Negative SLR test Lungs clear to auscultation, No wheezing or rhonchi Heart: RRR without murmur, gallop, or rubs. Abdomen soft, non-tender. No masses, organomegaly Extremities: No deformities. No edema Neuro: Gait and speech normal. Reflexes normal and symmetric. Muscular strength intact. Sensation grossly intact. Rectal: Deferred : Deferred LABS: Glucose (mg/dL) Date Value 12/14/2022 169 Potassium (mmol/L) Date Value 12/14/2022 4.2 Sodium (mmol/L) Date Value 12/14/2022 136 Chloride (mmol/L) Date Value 12/14/2022 97 CO2 (mmol/L) Date Value 12/14/2022 30 Creatinine (mg/dL) Date Value 12/14/2022 1.30 Creatinine, Whole Blood (iSTAT) (mg/dL) Date Value 12/21/2022 1.30 BUN (mg/dL) Date Value 12/14/2022 21 Anion Gap (mmol/L) Date Value 12/14/2022 9 Calcium, Total (mg/dL) Date Value 12/14/2022 10.2 Protein, Total (g/dL) Date Value 12/14/2022 7.1 Albumin (g/dL) Date Value 12/14/2022 4.5 Bilirubin, Total (mg/dL) Date Value 12/14/2022 0.3 Alkaline Phosphatase (U/L) Date Value 12/14/2022 88 AST (U/L) Date Value 12/14/2022 16 ALT (U/L) Date Value 12/14/2022 19 WBC Date Value Ref Range Status 12/21/2022 6.27 3.70 - 11.00 k/uL Final RBC Date Value Ref Range Status 12/21/2022 4.61 4.20 - 6.00 m/uL Final Hemoglobin Date Value Ref Range Status 12/21/2022 12.9 (L) 13.0 - 17.0 g/dL Final Hematocrit Date Value Ref Range Status 12/21/2022 38.0 (L) 39.0 - 51.0 % Final MCV Date Value Ref Range Status 12/21/2022 82.4 80.0 - 100.0 fL Final MCH Date Value Ref Range Status 12/21/2022 28.0 26.0 - 34.0 pg Final MCHC Date Value Ref Range Status 12/21/2022 33.9 30.5 - 36.0 g/dL Final RDW-CV Date Value Ref Range Status 12/21/2022 12.2 11.5 - 15.0 % Final Platelet Count Date Value Ref Range Status 12/21/2022 85 (L) 150 - 400 k/uL Final Comment: No clot detected. MPV Date Value Ref Range Status 12/21/2022 8.4 (L) 9.0 - 12.7 fL Final Abs Neut Date Value Ref Range Status 12/21/2022 5.22 1.45 - 7.50 k/uL Final Lymphocytes % Date Value Ref Range Status 12/21/2022 4.5 % Final Abs Lymph Date Value Ref Range Status 12/21/2022 0.28 (L) 1.00 - 4.00 k/uL Final Monocytes % Date Value Ref Range Status 12/21/2022 9.4 % Final Abs Gates Date Value Ref Range Status 12/21/2022 0.59 <0.87 k/uL Final Eosinophils % Date Value Ref Range Status 12/21/2022 2.1 % Final Abs Eosin Date Value Ref Range Status 12/21/2022 0.13 <0.46 k/uL Final Basophils % Date Value Ref Range Status 12/21/2022 0.5 % Final Abs Baso Date Value Ref Range Status 12/21/2022 0.03 <0.11 k/uL Final PATH: L BOT mass Biopsy 10/18/2022: 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 IMAGING: CT Neck 10/2022: PET 11/2022: 1. Neck: Intensely hypermetabolic right oropharyngeal region mass compatible with neoplastic process. Hypermetabolic right cervical lymphadenopathy suspicious for metastatic lymphadenopathy. 2. Chest: No evidence of FDG avid neoplastic process 3. Abdomen and pelvis: No evidence of FDG avid metastases Increased activity in the prostatic region correlation with PSA is suggested. 4. Skeleton: No hypermetabolic osseous lesions Assessment and Plan: Caitlin Elmore is a 57 year old year old male here for follow up. 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 See back next week 2. PET positive in the prostate area and will get PSA and will addres after completion of therapy and will need referral 3. Follow nutrition and monitor weight Thank you for the kind referral. If there are any questions and or concerns please do not hesitate to contact me at [phone]. Elizabeth Borjas MD Hematology/Medical Oncology [facility] spent a total of 30 minutes on the date of the service which included preparing to see the patient, [id number] patient care, completing clinical documentation, obtaining and/or reviewing separately obtained history, performing a medically appropriate examination, counseling and educating the patient/family/caregiver, and ordering medications, tests, or procedures. CC: Naty Burton MD documented in this encounter [facility] 12-20-2022 Miscellaneous Notes TOXICITY CHECK SYMPTOM ASSESSMENT The patient is on Cisplatin with radiation Headache: No Dizziness: No Mouth or throat pain: Yes pt continues with a little bit of ear/throat pain, also with a new tongue pain in the middle of his tongue that he describes as a muscle pain that he notices more as the day goes on. States Dr Esposito is aware. Appetite: no changes in appetite, appetite good Taste changes: No Nausea: Yes at times for the first couple of days after treatment. Vomiting: No Heartburn: No. Weight gain/loss: Yes pt met with urban and regional planner yesterday and he feels that this has helped tremendously. Episodes of palpitations/chest discomfort/pressure/pain No Shortness of breath: No Cough: No Diarrhea: no Constipation: no Bladder/Urinary Changes: None Pain: as mentioned above Fever: No Chills: No Cold sensitivity: No Numbness/weakness: No Edema: No Skin changes: No Itching: No Yellowing of skin or eyes: No Musculoskeletal/joint changes/issues No Bleeding issues: No Activity Level (0-100%): 50% Do you need to take naps? Sometimes a few days after treatment Does the patient need interventions or same day appointment:No Reinforced CURRENT treatment education based on current and anticipated symptoms. Discussed port/line care and patient verbalizes understanding: Yes Patient instructed to contact office or after hours Hematology/Oncology fellow for: temperature ? 100.4; questions or concerns. Patient verbalized understanding of when to seek medical attention and after hours number protocol. Chiqui Modi, RN documented in this encounter [facility] 12-19-2022 History of Present illness Narrative Oncology Nutrition Therapy Reassessment RECOMMENDED MALNUTRITION DIAGNOSIS: SEVERE PROTEIN-CALORIE MALNUTRITION In the context of Acute Illness or Injury based on: Unintentional Weight Loss: >2% over 1 week Insufficient Energy Intake: less than or equal to 50% for greater than or equal to 5 days Some elements copied from my note on 12/14/2022, have been updated and all reflect current decision making from today, 12/19/2022 Nutrition Diagnosis: Increased protein and energy needs related to hypermetabolic disease process as evidenced by need for weight maintenance and preservation of muscle mass. Nutrition Intervention: -aim for small frequent meals/snacks -try every 3 hours -include protein source with each meal/snack -reviewed tips for taste changes -discussed easy to swallow foods -discussed supplementation -boost plus 2-3 times per day -trial boost VHC -mix with ice cream -incorporate calorie/protein boosting techniques -encouraged adequate hydration Nutrition Monitoring & Evaluation: .-PO Intake -Wt status -BM's -Supplement tolerance/acceptance -Biochemical Markers -Plan of care Date of last encounter: December 14, 2022 Patient met goal(s): Partially Patient's symptoms are: Oral: taste changes and painful swallowing Behavioral: altered appetite Weight Concerns: weight loss Pt presents for nutrition counseling for oropharynx cancer. Pt's is present today. Pt is currently being treated with RT, Cisplatin. Pt denies any chewing/swallowing issues, does note some pain with swallowing. Pt denies current N/V/D/C. Pt reporting decreased intakes over the past week due to taste changes, some pain with swallowing, and phlegm. Pt with some difficulty with recall and describing symptoms, but states he has been consuming more soups, pudding, and ice cream. Reviewed importance of adequate calorie/protein intakes and preserving lean muscle mass. Reviewed weight loss, intakes, and malnutrition findings. Suggested pt eat more frequently and consume more protein containing foods. Reviewed interventions above, problem solved with pt on ways to meet recommendations, and answered all of patient and family's questions. Thank you for allowing me to participate in the care of this pt. Readiness to Learn: Cognitive ability: Alert and oriented Motivation to learn: Interested Family support: High - Very involved in pt care Instruction provided to: Patient and family member Patient learns best by: Multiple Methods Factors affecting learning: None Physical limitations affecting learning: None Educational materials provided: High Calorie/High Protein Guidelines, Taste Changes Anthropometrics: Height: Last 1 Encounter Ht Readings: Date: Ht: 12/14/2022 184.6 cm (6' 0.68 ) Current weight: Last 1 Encounter Wt Readings: Date: Wt: 12/19/2022 83.9 kg (185 lb) Estimated body mass index is 24.63 kg/m as calculated from the following: Height as of 12/14/22: 184.6 cm (6' 0.68 ). Weight as of an earlier encounter on 12/19/22: 83.9 kg (185 lb). Resting Metabolic Rate: 1721 Weight Loss: 3.5kg (4%) x 1 week- significant Dosing Weight: 83.9 kg Estimated kilocalorie needs: 2517 kilocalories determined by 30 kcal/kg Estimated protein needs: 84-109 grams determined by 1.0-1.3 g/kg Dosing weight Estimated fluid needs: ~2500 milliliters based on 1 mL per kcal (unless otherwise noted) Nutrition Focused Physical Exam: Unable to perform exam due to potential for patient discomfort (physical/emotional), will re-attempt during reassessment. Potential Signs of Inflammation: chronic condition Allergies: Patient has no known allergies. Medications: Current Outpatient Medications Medication Sig Dispense Refill diphenhydrAMINE 12.5 mg/5 mL lidocaine visc 2% MAALOX 200-200-20 mg/5 mL nystatin prednisoLONE 15 mg/5 mL oral liquid 1:1:1:1:1 (CPD) Take 10 mL by mouth every 6 hours as needed. Swish and swallow 300 mL 1 amLODIPine (NORVASC) 5 mg tablet Take 10 mg by mouth once daily. HYDROcodone-acetaminophen (NORCO) 5-325 mg per tablet Take 1 tablet by mouth every 8 hours as needed for pain. 16 tablet 0 prochlorperazine (COMPAZINE) 10 mg tablet Take 1 tablet by mouth every 6 hours as needed. 100 tablet 2 ondansetron (ZOFRAN) 8 mg tablet Take 1 tablet by mouth every 8 hours as needed for nausea/vomiting. 90 tablet 2 lisinopril (ZESTRIL, PRINIVIL) 40 mg tablet Take 40 mg by mouth once daily. doxazosin (CARDURA) 4 mg tablet Take 4 mg by mouth once daily. pravastatin (PRAVACHOL) 20 mg tablet Take 20 mg by mouth once daily. ibuprofen (MOTRIN) 200 mg tablet Take 200 mg by mouth every 6 hours as needed. No current facility-administered medications for this visit. Need for Follow up: will continue to follow Referred by: Biju LOW Billing Type: Re-assess/15 min 2 units Time Spent with Patient: 30 minutes Signed by: Yadi Simms MS, RDN, LD documented in this encounter [facility] 12-14-2022 History of Present illness Narrative Pt requests to return on Tuesday 12/19 for IVF, GINETTE Mays gives ok to add to schedule for Monday and IVF orders. Request sent to [facility] to add to schedule. Primo Scott RN documented in this encounter [facility] 12-14-2022 History of Present illness Narrative Images from the original note were not included. PATIENT NAME: [facility] NO.: [id number] ATTENDING PHYSICIAN: Elizabeth Borjas MD DATE OF SERVICE: December 14, 2022 (Elements copied from my note dated December 07, 2022, have been reviewed and updated where appropriate, and all reflect current assessment and medical decision making during today's encounter, December 14, 2022) CC: Follow up and treatment Diagnosis: HPV positive BOT SCC Treatment History: Concurrent Cisplatin and XRT 11/21/2021 HPI: CLARICE returns for continuation of his chemotherapy with radiation. Right side of tongue sore. Swallowing hurts sometimes. MMW is helping. Some nausea but only vomited once after drinking a lot of water. No hearing loss, but some ringing in ears for about 15 seconds on occasion. Overall feeling well. PAST MEDICAL HISTORY Diagnosis Date Hard of hearing HTN (hypertension) Hypercholesteremia Social History Tobacco Use Smoking status: Former Packs/day: 1.00 Years: 35.00 Pack years: 35.00 Types: Cigarettes Quit date: 10/13/2022 Years since quittin.1 Passive exposure: Past Smokeless tobacco: Former Vaping Use Vaping Use: Never used Substance Use Topics Alcohol use: Yes Comment: occ Drug use: Not Currently Types: Marijuana FAMILY HISTORY Problem Relation Age of Onset Prostate Cancer Father Thyroid Cancer Sister Past medical, social and family history reviewed without any changes. REVIEW OF SYSTEMS GENERAL: No weight loss, malaise or fevers. No night sweats. HEENT: Negative for headaches, No changes in hearing or vision, no nose bleeds or other nasal problems. Occasional tinnitus Oropharynx: mild esophagitis RESPIRATORY: Negative for cough, wheezing and shortness of breath CARDIOVASCULAR: Negative for chest pain, leg swelling and palpitations GI: Negative for abdominal discomfort, blood in stools or black stools and change in bowel habits : Negative for dysuria, frequency and incontinence MUSCULOSKELETAL: Negative for joint pain or swelling, back pain, and muscle pain. SKIN: Negative for lesions, rash, and itching. HEMATOLOGY/LYMPHOLOGY Negative for prolonged bleeding, bruising easily, and swollen nodes. NEURO: Negative for numbness or tingling of hands/feet. No weakness. PHYSICAL EXAMINATION: BP 110/62 Pulse 93 Temp (Src) 97.3 (Temporal) Resp 16 Ht 6' .677 (1.85m) Wt 190 lb 6.4 oz (86.4kg) SpO2 99% BMI 25.34 kg/(m^2). ECOG PERFORMANCE STATUS: 1- Restricted in physically strenuous activity. Carries out light duty. General: Alert and oriented, no distress, pleasant and cooperative. Oropharynx: no ulcers or mucositis on exam Heart: Regular, normal S1 and S2, no murmurs, rubs, or gallops Lungs: Clear to auscultation bilaterally Abdomen: Benign Extremities: Feet/ankles without edema, posterior tibial pulses full and symmetrical LABS: Glucose (mg/dL) Date Value 12/14/2022 169 Potassium (mmol/L) Date Value 12/14/2022 4.2 Sodium (mmol/L) Date Value 12/14/2022 136 Chloride (mmol/L) Date Value 12/14/2022 97 CO2 (mmol/L) Date Value 12/14/2022 30 Creatinine (mg/dL) Date Value 12/14/2022 1.30 BUN (mg/dL) Date Value 12/14/2022 21 Anion Gap (mmol/L) Date Value 12/14/2022 9 Calcium, Total (mg/dL) Date Value 12/14/2022 10.2 Protein, Total (g/dL) Date Value 12/14/2022 7.1 Albumin (g/dL) Date Value 12/14/2022 4.5 Bilirubin, Total (mg/dL) Date Value 12/14/2022 0.3 Alkaline Phosphatase (U/L) Date Value 12/14/2022 88 AST (U/L) Date Value 12/14/2022 16 ALT (U/L) Date Value 12/14/2022 19 WBC Date Value Ref Range Status 12/14/2022 4.66 3.70 - 11.00 k/uL Final RBC Date Value Ref Range Status 12/14/2022 4.86 4.20 - 6.00 m/uL Final Hemoglobin Date Value Ref Range Status 12/14/2022 13.5 13.0 - 17.0 g/dL Final Hematocrit Date Value Ref Range Status 12/14/2022 40.0 39.0 - 51.0 % Final MCV Date Value Ref Range Status 12/14/2022 82.3 80.0 - 100.0 fL Final MCH Date Value Ref Range Status 12/14/2022 27.8 26.0 - 34.0 pg Final MCHC Date Value Ref Range Status 12/14/2022 33.8 30.5 - 36.0 g/dL Final RDW-CV Date Value Ref Range Status 12/14/2022 12.1 11.5 - 15.0 % Final Platelet Count Date Value Ref Range Status 12/14/2022 116 (L) 150 - 400 k/uL Final MPV Date Value Ref Range Status 12/14/2022 8.5 (L) 9.0 - 12.7 fL Final Abs Neut Date Value Ref Range Status 12/14/2022 3.71 1.45 - 7.50 k/uL Final Lymphocytes % Date Value Ref Range Status 12/14/2022 7.1 % Final Abs Lymph Date Value Ref Range Status 12/14/2022 0.33 (L) 1.00 - 4.00 k/uL Final Monocytes % Date Value Ref Range Status 12/14/2022 9.2 % Final Abs Gates Date Value Ref Range Status 12/14/2022 0.43 <0.87 k/uL Final Eosinophils % Date Value Ref Range Status 12/14/2022 3.2 % Final Abs Eosin Date Value Ref Range Status 12/14/2022 0.15 <0.46 k/uL Final Basophils % Date Value Ref Range Status 12/14/2022 0.6 % Final Abs Baso Date Value Ref Range Status 12/14/2022 0.03 <0.11 k/uL Final PATH: L BOT mass Biopsy 10/18/2022: 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 IMAGING: CT Neck 10/2022: PET 11/2022: 1. Neck: Intensely hypermetabolic right oropharyngeal region mass compatible with neoplastic process. Hypermetabolic right cervical lymphadenopathy suspicious for metastatic lymphadenopathy. 2. Chest: No evidence of FDG avid neoplastic process 3. Abdomen and pelvis: No evidence of FDG avid metastases Increased activity in the prostatic region correlation with PSA is suggested. 4. Skeleton: No hypermetabolic osseous lesions Assessment and Plan: Caitlin Elmore is a 57 year old year old male here for follow up. 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 Tolerating well. Proceed with week 4 of treatment and see us in 1 week Mild esophagitis--MMW prescribed. 3. PET positive in the prostate area and PSA elevated at 3.16. Will address after completion of therapy. Will need a referal to upon completion of chemo/rads Vanesa Gomez PA-C CC: Naty Burton MD documented in this encounter [facility] 12-14-2022 History of Present illness Narrative Oncology Nutrition Therapy Progress Note RECOMMENDED MALNUTRITION DIAGNOSIS: NO MALNUTRITION IDENTIFIED per APRIL Fortune on 11/04/2022 Some elements copied from my note on 12/06/2022, have been updated and all reflect current decision making from today, 12/14/2022 Nutrition Intervention: -continue small frequent meals and snacks -continue adjusting textures due to painful swallowing -reviewed tips for taste changes -encouraged use of sauces, marinades, seasonings -discussed supplementation -continue boost plus; goal of 1 per day -encouraged adequate hydaration Nutrition Monitoring & Evaluation: -PO Intake -Wt status -BM's -Supplement tolerance/acceptance -Biochemical Markers -Plan of care Date of last encounter: December 06, 2022 Patient met goal(s): Yes Patient's symptoms are: Oral: taste changes and painful swallowing Pt presents for nutrition counseling follow up. Pt currently being treated with RT, Cisplatin. Pt c/o painful swallowing, but states it is not interfering with oral intakes. Pt denies any current N/V/D/C. Pt's weight is fluctuating, but no significant changes noted. Pt endorses good appetite. States despite pain and taste changes he is eating well. He is adjusting textures and experimenting with various flavors to make eating more enjoyable. Reviewed above interventions, problem solved with pt on ways to meet recommendations, and answered all of patient's questions. READINESS TO LEARN Cognitive ability: Alert and oriented Motivation to learn: Interested Family support: High - Very involved in pt care Instruction provided to: Patient Patient learns best by: Multiple Methods Factors affecting learning: None Physical limitations affecting learning: None Educational materials provided: none this visit Need for Follow up: will continue to follow Referred by: Biju LOW Billing Type: Re-assess/15 min 1 unit Billed Time: 15 minutes Signed by: Yadi Simms MS, RDN, RAYSA documented in this encounter [facility] 12-12-2022 History of Present illness Narrative Oncology Nutrition Therapy Progress Note Attempted to see patient for scheduled follow up. Unable to see as patient had already left after radiation appointments. Will attempt to follow up with patient on Thursday 12/14 during chemotherapy. 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 COURSE: definitive and concurrent chemotherapy Current dose: 3200 cGy in 16 fx Planned dose: 7000 cGy in 35 fx SUBJECTIVE: Doing well. Increased dysphagia. Still eating and drinking well. PHYSICAL EXAM: 12/12/22 1432 Pulse: 70 Resp: 18 Temp: 36.5 C (97.7 F) Weight: 87.4 kg (192 lb 9.6 oz) KPS: 100 General Appearance: Alert and oriented. No acute distress. Mild patchy erythema posterior oropharynx, no exudate or ulceration Neck palpable right level 2 smaller IMAGING/LAB RESULTS: Hemoglobin (g/dL) Date Value 12/07/2022 13.8 Hematocrit (%) Date Value 12/07/2022 41.3 WBC (k/uL) Date Value 12/07/2022 7.18 Platelet Count (k/uL) Date Value 12/07/2022 158 TOXICITY ASSESSMENT (CTC v4.0): Fatigue:grade 1 - Fatigue relieved by rest Radiation Dermatitis: grade 0 - No symptoms Treatment chart checked: Yes Patient treatment site reviewed and verified:Yes Port films reviewed and current:Yes Medications started: None ASSESSMENT/PLAN: Clinically stable. ConeBeam CT shows tumor is responding. Toxicity within expected parameters. Continue radiation treatment as planned. Nino Esposito MD documented in this encounter [facility] 12-07-2022 History of Present illness Narrative Images from the original note were not included. PATIENT NAME: Caitlin Elmore [facility] NO.: [id number] ATTENDING PHYSICIAN: Elizabeth Borjas MD DATE OF SERVICE: December 07, 2022 (Elements copied from Dr. Borjas's note dated November 29, 2022, have been reviewed and updated where appropriate, and all reflect current assessment and medical decision making during today's encounter, December 07, 2022) CC: Follow up and treatment Diagnosis: HPV positive BOT SCC Treatment History: Concurrent Cisplatin and XRT 11/21/2021 HPI: CLARICE returns for follow up. Treatment is going well he says. He is starting to get a sore throat and dry gums. He says that everything tastes terrible and he has to force himself to eat. Still with fatigue as well. Drinking fluids. Some nausea relieved with antiemetics. No neuropathy. No diarrhea or vomiting. PAST MEDICAL HISTORY Diagnosis Date Hard of hearing HTN (hypertension) Hypercholesteremia Social History Tobacco Use Smoking status: Former Packs/day: 1.00 Years: 35.00 Pack years: 35.00 Types: Cigarettes Quit date: 10/13/2022 Years since quittin.1 Passive exposure: Past Smokeless tobacco: Former Vaping Use Vaping Use: Never used Substance Use Topics Alcohol use: Yes Comment: occ Drug use: Not Currently Types: Marijuana FAMILY HISTORY Problem Relation Age of Onset Prostate Cancer Father Thyroid Cancer Sister Past medical, social and family history reviewed without any changes. REVIEW OF SYSTEMS GENERAL: No weight loss, malaise or fevers. No night sweats. HEENT: Negative for headaches, No changes in hearing or vision, no nose bleeds or other nasal problems. Oropharynx: mild esophagitis RESPIRATORY: Negative for cough, wheezing and shortness of breath CARDIOVASCULAR: Negative for chest pain, leg swelling and palpitations GI: Negative for abdominal discomfort, blood in stools or black stools and change in bowel habits : Negative for dysuria, frequency and incontinence MUSCULOSKELETAL: Negative for joint pain or swelling, back pain, and muscle pain. SKIN: Negative for lesions, rash, and itching. HEMATOLOGY/LYMPHOLOGY Negative for prolonged bleeding, bruising easily, and swollen nodes. NEURO: Negative for numbness or tingling of hands/feet. No weakness. PHYSICAL EXAMINATION: BP 130/79 Pulse 71 Temp (Src) 97.8 (Temporal) Resp 16 Wt 191 lb 9.6 oz (86.9kg) SpO2 99% ECOG PERFORMANCE STATUS: 1- Restricted in physically strenuous activity. Carries out light duty. General: Alert and oriented, no distress, pleasant and cooperative. Heart: Regular, normal S1 and S2, no murmurs, rubs, or gallops Lungs: Clear to auscultation bilaterally Abdomen: Benign Extremities: Feet/ankles without edema, posterior tibial pulses full and symmetrical LABS: Glucose (mg/dL) Date Value 12/07/2022 98 Potassium (mmol/L) Date Value 12/07/2022 4.6 Sodium (mmol/L) Date Value 12/07/2022 139 Chloride (mmol/L) Date Value 12/07/2022 101 CO2 (mmol/L) Date Value 12/07/2022 26 Creatinine (mg/dL) Date Value 12/07/2022 1.21 BUN (mg/dL) Date Value 12/07/2022 20 Anion Gap (mmol/L) Date Value 12/07/2022 12 Calcium, Total (mg/dL) Date Value 12/07/2022 10.3 Protein, Total (g/dL) Date Value 12/07/2022 7.5 Albumin (g/dL) Date Value 12/07/2022 4.6 Bilirubin, Total (mg/dL) Date Value 12/07/2022 0.4 Alkaline Phosphatase (U/L) Date Value 12/07/2022 103 AST (U/L) Date Value 12/07/2022 13 ALT (U/L) Date Value 12/07/2022 17 WBC Date Value Ref Range Status 12/07/2022 7.18 3.70 - 11.00 k/uL Final RBC Date Value Ref Range Status 12/07/2022 4.98 4.20 - 6.00 m/uL Final Hemoglobin Date Value Ref Range Status 12/07/2022 13.8 13.0 - 17.0 g/dL Final Hematocrit Date Value Ref Range Status 12/07/2022 41.3 39.0 - 51.0 % Final MCV Date Value Ref Range Status 12/07/2022 82.9 80.0 - 100.0 fL Final MCH Date Value Ref Range Status 12/07/2022 27.7 26.0 - 34.0 pg Final MCHC Date Value Ref Range Status 12/07/2022 33.4 30.5 - 36.0 g/dL Final RDW-CV Date Value Ref Range Status 12/07/2022 11.9 11.5 - 15.0 % Final Platelet Count Date Value Ref Range Status 12/07/2022 158 150 - 400 k/uL Final MPV Date Value Ref Range Status 12/07/2022 8.5 (L) 9.0 - 12.7 fL Final Abs Neut Date Value Ref Range Status 12/07/2022 5.42 1.45 - 7.50 k/uL Final Lymph% Date Value Ref Range Status 12/07/2022 8.4 % Final Abs Lymph Date Value Ref Range Status 12/07/2022 0.60 (L) 1.00 - 4.00 k/uL Final Gates% Date Value Ref Range Status 12/07/2022 11.1 % Final Abs Gates Date Value Ref Range Status 12/07/2022 0.80 <0.87 k/uL Final Eosin% Date Value Ref Range Status 12/07/2022 4.0 % Final Abs Eosin Date Value Ref Range Status 12/07/2022 0.29 <0.46 k/uL Final Baso% Date Value Ref Range Status 12/07/2022 0.6 % Final Abs Baso Date Value Ref Range Status 12/07/2022 0.04 <0.11 k/uL Final PATH: L BOT mass Biopsy 10/18/2022: 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 IMAGING: CT Neck 10/2022: PET 11/2022: 1. Neck: Intensely hypermetabolic right oropharyngeal region mass compatible with neoplastic process. Hypermetabolic right cervical lymphadenopathy suspicious for metastatic lymphadenopathy. 2. Chest: No evidence of FDG avid neoplastic process 3. Abdomen and pelvis: No evidence of FDG avid metastases Increased activity in the prostatic region correlation with PSA is suggested. 4. Skeleton: No hypermetabolic osseous lesions Assessment and Plan: Caitlin Elmore is a 57 year old year old male here for follow up. 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 Toelrating well. Proceed with week 3 and see us back next week. Mild esophagitis--MMW prescribed. 3. PET positive in the prostate area and will get PSA and will addres after completion of therapy and will need referral Vanesa Gomez PA-C CC: Naty Burton MD documented in this encounter [facility] 12-06-2022 History of Present illness Narrative Oncology Nutrition Therapy Progress Note RECOMMENDED MALNUTRITION DIAGNOSIS: NO MALNUTRITION IDENTIFIED per APRIL Fortune on 11/04/2022 Some elements copied from my note on 11/29/2022, have been updated and all reflect current decision making from today, 12/06/2022 Nutrition Intervention: -continue small frequent meals and snacks -reviewed adjusting textures as swallowing becomes painful -reviewed tips for taste changes -encouraged use of sauces, marinades, seasonings -discussed supplementation -continue boost plus; goal of 1 per day -encouraged adequate hydaration Nutrition Monitoring & Evaluation: -PO Intake -Wt status -BM's -Supplement tolerance/acceptance -Biochemical Markers -Plan of care Date of last encounter: November 29, 2022 Patient met goal(s): Partially Patient's symptoms are: Oral: taste changes Pt presents for nutrition counseling follow up. Pt currently being treated with RT, weekly cisplatin. Pt denies any current chewing/swallowing issues. Pt denies any current N/V/D/C. Pt's weight remains stable since initial encounter. Pt endorses good appetite and intakes. Pt states he is still able to consume all textures despite some reported mild pain with swallowing. Pt states he did start using ONS to help supplement intakes. Reinforced tips for taste changes and problem solved with pt on ways to meet recommendations. Pt verbalized understanding. READINESS TO LEARN Cognitive ability: Alert and oriented Motivation to learn: Interested Family support: High - Very involved in pt care Instruction provided to: Patient and family member Patient learns best by: Multiple Methods Factors affecting learning: None Physical limitations affecting learning: None Educational materials provided: Taste Changes Need for Follow up: will continue to follow Referred by: Biju LOW Billing Type: Re-assess/15 min 1 unit Billed Time: 15 minutes Signed by: Yadi Simms MS, RDN, LD documented in this encounter [facility] 12-06-2022 Miscellaneous Notes TOXICITY CHECK SYMPTOM ASSESSMENT The patient is on weekly Cisplatin with radiation Headache: No Dizziness: No Do you have any periods of confusion? No Mood changes: No Mouth or throat pain: Yes pt states his throat and ear pain from his tumor had gotten better, but is back now but not as bad as it was initially. Appetite: no changes in appetite, appetite good Taste changes: Yes pt states everything tastes terrible. Nausea: Yes pt states he has nausea for 2-3 days after treatment, then subsides. Antiemetics do help Vomiting: No Heartburn: No. Weight gain/loss: No Episodes of palpitations/chest discomfort/pressure/pain No Shortness of breath: No Cough: No Diarrhea: no Constipation: no constipation at this time. Is taking a stool softener daily to regulate bowels. Bladder/Urinary Changes: None Pain: noted above Fever: No Chills: No Cold sensitivity: No Numbness/weakness: No Edema: No Skin changes: No Itching: No Yellowing of skin or eyes: No Musculoskeletal/joint changes/issues No Bleeding issues: No Activity Level (0-100%): 50% Do you need to take naps? No Does the patient need interventions or same day appointment:No Reinforced CURRENT treatment education based on current and anticipated symptoms. Discussed port/line care and patient verbalizes understanding: Yes Patient instructed to contact office or after hours Hematology/Oncology fellow for: temperature ? 100.4; questions or concerns. Patient verbalized understanding of when to seek medical attention and after hours number protocol. Chiqui Modi RN documented in this encounter [facility] 12-05-2022 History of Present illness Narrative Oncology Nutrition Therapy Reassessment Attempted to see patient for scheduled follow up. However, patient had already left after radiation appointments. Will have PSS team attempt to reach out to patient to schedule for another day this week. 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 COURSE: definitive and concurrent chemotherapy Current dose: 2200 cGy in 11 fx Planned dose: 7000 cGy in 35 fx SUBJECTIVE: Doing well. He has experienced altered taste, more of a sore throat with swallowing still able to eat well. Some increased fatigue but is still working full-time. PHYSICAL EXAM: 12/05/22 1339 BP: 147/83 Pulse: 67 Resp: 18 Temp: (!) 35.7 C (96.2 F) SpO2: 98% Weight: 89.4 kg (197 lb) KPS: 100 General Appearance: Alert and oriented. No acute distress. Mild patchy erythema posterior oropharynx Neck palpable right level 2 stable IMAGING/LAB RESULTS: Hemoglobin (g/dL) Date Value 11/29/2022 13.5 Hematocrit (%) Date Value 11/29/2022 39.9 WBC (k/uL) Date Value 11/29/2022 7.07 Platelet Count (k/uL) Date Value 11/29/2022 204 TOXICITY ASSESSMENT (CTC v4.0): Fatigue:grade 1 - Fatigue relieved by rest Radiation Dermatitis: grade 0 - No symptoms Treatment chart checked: Yes Patient treatment site reviewed and verified:Yes Port films reviewed and current:Yes Medications started: None ASSESSMENT/PLAN: Clinically stable. ConeBeam CT shows tumor is responding. Toxicity within expected parameters. Continue radiation treatment as planned. Nino Esposito MD documented in this encounter [facility] 11-29-2022 History of Present illness Narrative Oncology Nutrition Therapy Progress Note RECOMMENDED MALNUTRITION DIAGNOSIS: NO MALNUTRITION IDENTIFIED per APRIL Fortune on 11/04/2022 Some elements copied from my note on 11/21/2022, have been updated and all reflect current decision making from today, 11/29/2022 Nutrition Intervention: -aim for small frequent meals and snacks -include protein source at each meal and snack -briefly reviewed adjusting textures as swallowing becomes painful -briefly reviewed tips for taste changes -discussed supplementation -currently not indicated -encouraged adequate hydaration Nutrition Monitoring & Evaluation: -PO Intake -Wt status -BM's -Supplement tolerance/acceptance -Biochemical Markers -Plan of care Date of last encounter: November 21, 2022 Patient met goal(s): Yes Patient's symptoms are: Oral: taste changes Pt presents for nutrition counseling follow up. Pt's sister present. Pt currently being treated with RT, weekly cisplatin. Pt denies any current chewing/swallowing issues. However, pt does note he feels he is starting to have some mild pain in throat, states this is not interfering with his intakes. Pt denies any current N/V/D/C. Pt endorses good appetite. States he is eating frequently throughout the day. Pt also states he is drinking plenty of fluids. Reviewed interventions above and problem solved ways to meet recommendations. Pt verbalized understanding. READINESS TO LEARN Cognitive ability: Alert and oriented Motivation to learn: Interested Family support: High - Very involved in pt care Instruction provided to: Patient and sister Patient learns best by: Multiple Methods Factors affecting learning: None Physical limitations affecting learning: None Educational materials provided: Taste Changes Need for Follow up: will continue to follow Referred by: Biju LOW Billing Type: Re-assess/15 min 1 unit Billed Time: 15 minutes Signed by: Yadi Simms MS, TYSHAWN, RAYSA documented in this encounter [facility] 11-28-2022 History of Present illness Narrative Radiation Oncology - On Treatment Review (OTR) Note PATIENT NAME: Caitlin Elmore PATIENT DIAGNOSIS: Oropharyngeal cancer, right base of tongue,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 COURSE: definitive and concurrent chemotherapy Current dose: 1200 cGy in 6 fx Planned dose: 7000 cGy in 35 fx SUBJECTIVE: Doing well. Has had decrease in tongue pain. No other new issues. PHYSICAL EXAM: There were no vitals filed for this visit. KPS: 100 General Appearance: Alert and oriented. No acute distress. Neck palpable right level 2 somewhat smaller IMAGING/LAB RESULTS: Hemoglobin (g/dL) Date Value 11/21/2022 13.9 Hematocrit (%) Date Value 11/21/2022 41.6 WBC (k/uL) Date Value 11/21/2022 7.13 Platelet Count (k/uL) Date Value 11/21/2022 192 TOXICITY ASSESSMENT (CTC v4.0): Fatigue:grade 1 - Fatigue relieved by rest Radiation Dermatitis: grade 0 - No symptoms Treatment chart checked: Yes Patient treatment site reviewed and verified:Yes Port films reviewed and current:Yes Medications started: None ASSESSMENT/PLAN: Clinically stable. Toxicity within expected parameters. Continue radiation treatment as planned. Nino Esposito MD documented in this encounter [facility] 11-24-2022 Miscellaneous Notes CYCLE 1/DAY 1 POST TREATMENT CALL Today's date: November 24, 2022 Treatment Regimen: weekly Cisplatin with RT C1D1 Date: 11/21/22 Called patient to follow-up on symptom management. Spoke with patient SYMPTOM ASSESSMENT Neuro: None CV/Resp: None GI/: Appetite: no changes in appetite, appetite good, Nausea pt states he seems to have nausea around 4 am, takes his antiemetic and gets good relief, Fluid intake: good, and Constipation: yes, last BM today pt states he began taking a stool softener on Monday which has helped. Integument: None Activity: Patient reported decreased energy level Activity Level (0-100%): 50% Pain: pt has pain in throat/ear from his tumor. Pt states he takes oxy at bedtime which helps his pain and he's able to sleep. Pt takes motrin/tylenol throughout the day as needed which helps. He notes he hasn't taken this as often the last couple of days. Fever: No Chills: No Any new referrals needed? No Reinforced CURRENT treatment education based on current and anticipated symptoms. Discussed port/line care and patient verbalizes understanding: Yes Patient instructed to contact office or after hours Hematology/Oncology fellow for: temperature ? 100.4; questions or concerns. Patient verbalized understanding of when to seek medical attention and after hours number protocol. Chiqui Modi RN documented in this encounter [facility] 11-22-2022 Miscellaneous Notes 1st report of treatment-Benefit investigation complete. Spoke with patient's spouse Clarissa today. Patient is active with [employer] [facility] 80%, $1500 deductible has $0 remaining, $7000 OOP has $3015 remaining. Estimate shows patient financial responsibility is $198 for each chemo treatment in 2022 until oop max is reached. Explained to Clarissa that he will more than likely meet his OOP very soon since he is also getting radiation. She stated understanding. I told her I could watch for possible avel openings to help out but she states she knows they will be over income limits so will just call after he is done with all treatments to arrange payment plan. She states that they also have a cancer policy with [employer] to help with expenses. I sent her my contact info as well as phone number to reach out to Jessica Zack LINARES) that can help set payments up for them. She was appreciative of the information given. Est Reference #[id number] documented in this encounter [facility] 11-21-2022 History of Present illness Narrative SOCIAL WORK FOLLOW UP NOTE: [facility] Date of service:11/21/22 Caitlin Elmore is being seen for a follow up social work visit. Today's visit includes: patient TOPICS ADDRESSED: coping/support PLAN: Continue follow up as needed Assigned SW listed in Care Team tab: Yes SW met with the above listed Patient in the infusion room. Today is the Patient's first chemotherapy. SW introduced herself and explained the role of an Oncology SW. A handout listing the services this SW provides was given as well as contact information to reach this SW. Patient denied any immediate needs, questions or concerns. Patient mentioned that his was here earlier, but needed to leave for a little bit. SW will remain available and will follow up as appropriate. KETURAH Pritchard documented in this encounter [facility] 11-21-2022 History of Present illness Narrative Oncology Nutrition Therapy Progress Note RECOMMENDED MALNUTRITION DIAGNOSIS: NO MALNUTRITION IDENTIFIED per APRIL Frotune on 11/04/2022 Some elements copied from my note on 11/04/2022, have been updated and all reflect current decision making from today, 11/21/2022 Nutrition Intervention: -continue current meal structure of 3-4 meals/day -include lean protein source at each meal -briefly reviewed potential nutrition related side effects of treatment -swallowing difficulty, taste changes -encouraged adequate hydration Nutrition Monitoring & Evaluation: -PO Intake -Wt status -BM's -Supplement tolerance/acceptance -Biochemical Markers -Plan of care Date of last encounter: November 04, 2022 Patient met goal(s): Yes Patient's symptoms are: None Pt presents for nutrition counseling follow up. Pt is starting treatment today with RT and weekly cisplatin. Pt denies any current chewing/swallowing issues. Pt denies any current N/V/D/C. Pt's weight is stable since initial encounter. Appetite appears good. Intakes are good. Briefly reviewed interventions above with pt. Currently pt denies any nutrition questions or concerns and understands he will have weekly follow ups with dietitian during treatment. READINESS TO LEARN Cognitive ability: Alert and oriented Motivation to learn: Interested Family support: Unable to assess - Family not present Instruction provided to: Patient Patient learns best by: Multiple Methods Factors affecting learning: None Physical limitations affecting learning: None Educational materials provided: none this visit Need for Follow up: will continue to follow Referred by: Biju LOW Billing Type: Re-assess/15 min 1 unit Billed Time: 15 minutes Signed by: Yadi Simms MS, RDN, LD documented in this encounter [facility] 11-21-2022 History of Present illness Narrative Images from the original note were not included. PATIENT NAME: [facility] NO.: [id number] ATTENDING PHYSICIAN: Elizabeth Borjas MD DATE OF SERVICE: November 21, 2022 (Elements copied from Dr. Borjas's note dated November 02, 2022, have been reviewed and updated where appropriate, and all reflect current assessment and medical decision making during today's encounter, November 21, 2022) CHIEF COMPLAINT: I have throat cancer Diagnosis: Tongue base biopsy 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 Treatment: Concurrent Cisplatin and XRT started 11/21/2022 HPI: Mr. Elmore returns with his today to start Cisplatin concurrent with radiation for his newly diagnosed SCC of the tongue. He has received education and is ready to start therapy. PMH: BPH and HTN Direct Laryngoscopy 10/18/2022: Findings from the procedure demonstrated a hard mass in the right base of tongue difficult to visualize due to patient's narrow palate and small mouth. Biopsies were obtained. Current Outpatient Medications Medication Sig amLODIPine (NORVASC) 5 mg tablet Take 10 mg by mouth once daily. HYDROcodone-acetaminophen (NORCO) 5-325 mg per tablet Take 1 tablet by mouth every 8 hours as needed for pain. prochlorperazine (COMPAZINE) 10 mg tablet Take 1 tablet by mouth every 6 hours as needed. ondansetron (ZOFRAN) 8 mg tablet Take 1 tablet by mouth every 8 hours as needed for nausea/vomiting. lisinopril (ZESTRIL, PRINIVIL) 40 mg tablet Take 40 mg by mouth once daily. doxazosin (CARDURA) 4 mg tablet Take 4 mg by mouth once daily. pravastatin (PRAVACHOL) 20 mg tablet Take 20 mg by mouth once daily. ibuprofen (MOTRIN) 200 mg tablet Take 200 mg by mouth every 6 hours as needed. No current facility-administered medications for this visit. ALLERGIES No Known Allergies PAST MEDICAL HISTORY Diagnosis Date Hard of hearing HTN (hypertension) Hypercholesteremia PAST SURGICAL HISTORY Procedure Laterality Date PAST SURGICAL HISTORY OF Right mastoidectomy and incus repair TONSILLECTOMY & ADENOIDECTOMY <AGE 13 FAMILY HISTORY Problem Relation Age of Onset Prostate Cancer Father Thyroid Cancer Sister Social History Tobacco Use Smoking status: Former Packs/day: 1.00 Years: 35.00 Pack years: 35.00 Types: Cigarettes Quit date: 10/13/2022 Years since quittin.1 Smokeless tobacco: Former Vaping Use Vaping Use: Never used Substance Use Topics Alcohol use: Yes Comment: occ Drug use: Not Currently Types: Marijuana REVIEW OF SYSTEMS GENERAL: No weight loss, malaise or fevers. No night sweats. HEENT: Negative for headaches, No changes in hearing or vision, no nose bleeds or other nasal problems. RESPIRATORY: Negative for cough, wheezing and shortness of breath CARDIOVASCULAR: Negative for chest pain, leg swelling and palpitations GI: Negative for abdominal discomfort, blood in stools or black stools and change in bowel habits : Negative for dysuria, frequency and incontinence MUSCULOSKELETAL: Negative for joint pain or swelling, back pain, and muscle pain. SKIN: Negative for lesions, rash, and itching. HEMATOLOGY/LYMPHOLOGY Negative for prolonged bleeding, bruising easily, and swollen nodes. NEURO: Negative for numbness or tingling of hands/feet. No weakness. PHYSICAL EXAMINATION: BP 145/87 Pulse 67 Temp 36.3 C (97.4 F) (Temporal) Resp 16 Ht 180.3 cm (5' 10.98 ) Wt 92.1 kg (203 lb) SpO2 99% BMI 28.33 kg/m ECOG PERFORMANCE STATUS: 0- Fully active, able to carry on all pre-disease performance w/o restriction. General: Alert and oriented, no distress, pleasant and cooperative. Lungs: non-labored breathing Abdomen: Benign LABS: Glucose (mg/dL) Date Value 11/21/2022 91 Potassium (mmol/L) Date Value 11/21/2022 3.9 Sodium (mmol/L) Date Value 11/21/2022 138 Chloride (mmol/L) Date Value 11/21/2022 102 CO2 (mmol/L) Date Value 11/21/2022 26 Creatinine (mg/dL) Date Value 11/21/2022 1.15 BUN (mg/dL) Date Value 11/21/2022 24 Anion Gap (mmol/L) Date Value 11/21/2022 10 Calcium, Total (mg/dL) Date Value 11/21/2022 10.1 Protein, Total (g/dL) Date Value 11/21/2022 7.2 Albumin (g/dL) Date Value 11/21/2022 4.7 Bilirubin, Total (mg/dL) Date Value 11/21/2022 0.3 Alkaline Phosphatase (U/L) Date Value 11/21/2022 94 AST (U/L) Date Value 11/21/2022 15 ALT (U/L) Date Value 11/21/2022 20 WBC Date Value Ref Range Status 11/21/2022 7.13 3.70 - 11.00 k/uL Final RBC Date Value Ref Range Status 11/21/2022 4.95 4.20 - 6.00 m/uL Final Hemoglobin Date Value Ref Range Status 11/21/2022 13.9 13.0 - 17.0 g/dL Final Hematocrit Date Value Ref Range Status 11/21/2022 41.6 39.0 - 51.0 % Final MCV Date Value Ref Range Status 11/21/2022 84.0 80.0 - 100.0 fL Final MCH Date Value Ref Range Status 11/21/2022 28.1 26.0 - 34.0 pg Final MCHC Date Value Ref Range Status 11/21/2022 33.4 30.5 - 36.0 g/dL Final RDW-CV Date Value Ref Range Status 11/21/2022 12.2 11.5 - 15.0 % Final Platelet Count Date Value Ref Range Status 11/21/2022 192 150 - 400 k/uL Final MPV Date Value Ref Range Status 11/21/2022 8.7 (L) 9.0 - 12.7 fL Final Abs Neut Date Value Ref Range Status 11/21/2022 4.29 1.45 - 7.50 k/uL Final Lymph% Date Value Ref Range Status 11/21/2022 20.6 % Final Abs Lymph Date Value Ref Range Status 11/21/2022 1.47 1.00 - 4.00 k/uL Final Gates% Date Value Ref Range Status 11/21/2022 8.0 % Final Abs Gates Date Value Ref Range Status 11/21/2022 0.57 <0.87 k/uL Final Eosin% Date Value Ref Range Status 11/21/2022 10.2 % Final Abs Eosin Date Value Ref Range Status 11/21/2022 0.73 (H) <0.46 k/uL Final Baso% Date Value Ref Range Status 11/21/2022 0.7 % Final Abs Baso Date Value Ref Range Status 11/21/2022 0.05 <0.11 k/uL Final PATH: L BOT mass Biopsy 10/18/2022: 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 IMAGING: CT Neck 10/2022: PET/CT 11/11/2022 1. Neck: Intensely hypermetabolic right oropharyngeal region mass compatible with neoplastic process. Hypermetabolic right cervical lymphadenopathy suspicious for metastatic lymphadenopathy. 2. Chest: No evidence of FDG avid neoplastic process 3. Abdomen and pelvis: No evidence of FDG avid metastases Increased activity in the prostatic region correlation with PSA is suggested. 4. Skeleton: No hypermetabolic osseous lesions ASSESSMENT AND PLAN: Caitlin Elmore is a 57 year old year old male PMH HTN and BPH and a smoker with T3,N1,M0 BOT. Today we reviewed potential side effects of cisplatin therapy including renal disease, neurotoxicity, GI toxicity, hematologic toxicities. Patient has given informed consent and we will start treatment today. He will return in 1 week for labs and to continue treatment. Vanesa Gomez PA-C CC: DO Alex Brice MD Douglas M Hoy, MD documented in this encounter [facility] 11-15-2022 Miscellaneous Notes Mrs. Elmore notified of the appt 11/21/22 at 8:15. Janene Miller LPN New start has been rescheduled to 11/21/22 at 8:15. Chiqui Caceres RN notified and will have his chemo rescheduled to coordinate with his xrt. He should be done with his radiation tx by 9:00 that a.m. Thanks Janene Miller LPN Images from the original note were not included. Patient Update (Newest Message First) Nino Esposito MD Radt [facility]; Chiqui Modi, ONELIA; Elizabeth Borjas MD 23 minutes ago (8:55 AM) Would like to start next week due to significant growth in saul disease over past 3 I notified Fiona RT that Dr. Esposito would like to start Mr. Elmore's tx next week and she will notify nursing with a start date. Janene Miller LPN In review of PET scan and CT scan from yesterday comparing with October scans it does appear that patient's saul disease has grown considerably. Exam yesterday showed very good healing of right upper tooth extraction socket. No evidence of infection. Patient also developing increasing right otalgia (hydrocodone given). Given this I would strongly recommend starting next week as opposed to waiting 2 to 3 weeks. I think he has had enough time healing after extraction will be approximately 10 to 11 days. I discussed this with patient and he expresses understanding and will change his travel plans. I will coordinate with Dr. Borjas and anticipate starting on this upcoming Monday. Nino Esposito MD documented in this encounter [facility] 11-15-2022 Miscellaneous Notes Patient coming in on Monday11/21/22 for treatment visit New Start. Do you want labs? documented in this encounter [facility] 11-15-2022 Miscellaneous Notes Patient has been scheduled for RV and treatment with Vanesa following XRT same day. Ellyn Mullins Pt will be starting radiation on 11/21/22 at 815, should be done by 9. Can we please schedule labs, follow up, and treatment for him this morning as well. Thanks Chiqui Modi RN documented in this encounter [facility] 11-14-2022 Miscellaneous Notes Patient to begin XRT on 12/07. Per radiation, his chemo needs be scheduled after. Patient has been scheduled for RV and treatment same day. Ellyn Mullins ----- Message from Janene Miller LPN sent at 11/03/2022 10:55 AM EST ----- Regarding: chemo/radiation FYI--CLARICE needs to have dental extraction(s) which he will arrange with his dentist. Dr. Esposito plans to reschedule his SIM 1-2 days after extraction(s) and start treatment after CLARICE returns from vacation. Patient will notify our office of extraction date. We will need to coordinate chemo/radiation start date at his SIM appt. Thanks Karina documented in this encounter [facility] 11-14-2022 History of Present illness Narrative CAITLIN ELMORE [id number] 11/14/2022 [facility] Radiation Oncology Department SIMULATION NOTE DATE OF SIMULATION: 11/14/2022 THERAPIST: Nicole Amin MACHINE: [email or web address] DIAGNOSIS: Malignant neoplasm of base of [id number] AREA: H &N CONTRAST: IV 100CC omni via the RT AC Consent in Epic: Yes PATIENT POSITION: Supine. FIXATION DEVICE: In order to achieve accurate and reproducible treatments, the patient is immobilized with 5 POINT MASK, ORFIT AIO SYSTEM, CUSTOM MOUTH PIECE A time-out was conducted and recorded by the therapist. CT scan was completed for target localization and planning. Field arrangement will be determined after plan has been completed. The patient is scheduled for a verification simulation on the treatment machine to ensure proper set-up and field arrangement is correct prior to the first treatment of primary and boost abarca if applicable. Patient education will be completed per nursing. Electronically Signed Alex Esposito M.D. / CDT 34:53 PM documented in this encounter [facility] 11-14-2022 History of Present illness Narrative CAITLIN ELMORE [id number] 11/14/2022 [facility] Department of Radiation Oncology Treatment Planning Note For reasons stated in the consult note, Caitlin Elmore is a candidate for radiation therapy. Based on review and interpretation of the relevant diagnostic studies together with the exam findings, Caitlin Elmore was simulated on 11/14/2022 at which time the target volume and/or requisite abarca were delineated, as indicated in the simulation note, to be treated according to the prescription. The treatment target and organs at risk were contoured on the simulation scan Using the fused PET. Special consideration to these and other structures was given in light of the potential for increased toxicities of combined chemoradiation. After reviewing multiple treatment plans with dosimetry, the best plan was approved to deliver the prescribed course of radiation to the target area using inverse planning to allow for the best isodose distribution, treating to the 97.7% isodose line with 6MV and 3 abarca. Custom MLC for IMRT were the treatment device used to shape/modify the beams. Limiting dose to normal tissue was confirmed upon review of the calculated dose volume histogram. IMRT planning was used because it best met the dose/volume constraints for the organs at risk for this patient, better than what could be achieved using conventional or 3D planning. The specific dose requirements for the PTV, organs at risk and dose-volume histograms are contained in this treatment plan and/or elsewhere in the medical record. A completed summary of this plan dated 11-18-22 incorporated herein by reference includes dose, beam arrangements, energy, blocking, isodose distribution, and/or ports and DVH. Electronically Signed Zach Bryan M.D. 38:55 AM documented in this encounter [facility] 11-09-2022 History of Present illness Narrative Radiation Oncology - New Patient/Consult Note PATIENT NAME: Caitlin Elmore PATIENT : 1965 REQUESTING PROVIDER: Dr. Forbes Primary Site: Oropharynx/base of tongue Date of Diagnosis: October 18, 2022 Clinical Stage: T3 N1 M0 Pathologic Stage: NA DIAGNOSIS: Patient in for further follow-up and anticipated simulation for planning head and neck radiation. FOCUSED ROS: Dysphagia: No Mucositis: No Voice Changes:No Fatigue: No Nausea: No Vomitting: No Pain: Yes see HPI Taste: No Weight loss: Yes less than 10 pounds ALLERGIES No Known Allergies MEDICATIONS: prochlorperazine (COMPAZINE) 10 mg tablet Take 1 tablet by mouth every 6 hours as needed. ondansetron (ZOFRAN) 8 mg tablet Take 1 tablet by mouth every 8 hours as needed for nausea/vomiting. lisinopril (ZESTRIL, PRINIVIL) 40 mg tablet Take 40 mg by mouth once daily. doxazosin (CARDURA) 4 mg tablet Take 4 mg by mouth once daily. pravastatin (PRAVACHOL) 20 mg tablet Take 20 mg by mouth once daily. ibuprofen (MOTRIN) 200 mg tablet Take 200 mg by mouth every 6 hours as needed. PAST MEDICAL HISTORY Diagnosis Date Hard of hearing HTN (hypertension) Hypercholesteremia Prior radiation therapy, collagen vascular disease, or inflammatory bowel disease: No PAST SURGICAL HISTORY Procedure Laterality Date PAST SURGICAL HISTORY OF Right mastoidectomy and incus repair TONSILLECTOMY & ADENOIDECTOMY <AGE 13 FAMILY HISTORY Problem Relation Age of Onset Prostate Cancer Father Thyroid Cancer Sister Social History Tobacco Use Smoking status: Former Packs/day: 1.00 Years: 35.00 Pack years: 35.00 Types: Cigarettes Quit date: 10/13/2022 Years since quittin.0 Smokeless tobacco: Former Vaping Use Vaping Use: Never used Substance Use Topics Alcohol use: Yes Comment: occ Drug use: Not Currently Types: Marijuana COMPLETE REVIEW OF SYSTEMS: GENERAL: feeling well without fatigue, no recent change in weight NECK: See HPI RESPIRATORY: no cough, no wheezing or shortness of breath GI: normal appetite, tolerating PO well, BMs normal, and no abdominal pain MUSCULOSKELETAL: denies any painful or swollen joints, no muscle aches SKIN: no rash NEURO: no numbness or paresthesias and no weakness of the extremities As noted in HPI PHYSICAL EXAM: KPS: 100 General Appearance: Alert and oriented. No acute distress. 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 He has been evaluated by medical oncology, concurrent cisplatin recommended. He has seen his dentist however and unfortunately has at least 1 tooth that needs extracted prior to radiation. Discussed with dentist today. Plan to have extraction within the next week, simulation shortly after that treatment within 10 to 14 days depending on healing from extraction . Signed by: Nino Espsoito MD cc: Naty Burton MD [address] [place] [id number] Enoch Forbes MD [address] [facility] [id number] documented in this encounter [facility] 11-04-2022 History of Present illness Narrative Oncology Nutrition Therapy Initial Assessment This visit was performed as a telehealth visit due to the COVID-19 pandemic as an effort to protect patients and minimize exposure. Consent from patient received to conduct visit virtually/telehealth. It required patient-provider interaction for the medical decision making as documented below. RECOMMENDED MALNUTRITION DIAGNOSIS: NO MALNUTRITION IDENTIFIED Reason for visit: concurrent chemoradiation Nutrition Diagnosis: Increased protein and energy needs related to hypermetabolic disease process as evidenced by need for weight maintenance and preservation of muscle mass. Nutrition Intervention: -continue current meal structure of 3-4 meals/day -include lean protein source at each meal -briefly reviewed potential nutrition related side effects of treatment -swallowing difficulty, taste changes -discussed possible need for PEG tube if unable to tolerate po -encouraged adequate hydration -briefly discussed supplementation -not indicated at this time -provider contact information provided for further questions/concerns Nutrition Monitoring & Evaluation: -PO Intake -Wt status -BM's -Supplement tolerance/acceptance -Biochemical Markers -Plan of care Patient's symptoms are: None Pt presents for nutrition counseling for oropharynx cancer. Pt has not started treatment as of yet. Per notes, it appears patient will need dental extraction prior to beginning radiation and cisplatin. Pt denies any chewing/swallowing issues, denies current N/V/D/C. Pt denies food allergies/intolerances. Appetite appears to be good, Intakes are good. Pt states he is currently eating like crazy. He is consuming 3-4 meals per day. 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 Reviewed with pt importance of adequate calorie/protein intakes and preserving lean muscle mass. Reviewed interventions above and problem solved ways to meet recommendations. Answered all of patient's questions. Thank you for allowing me to participate in the care of this pt. Readiness to Learn: Cognitive ability: Alert and oriented Motivation to learn: Interested Family support: Unable to assess - Family not present Instruction provided to: Patient Patient learns best by: Multiple Methods Factors affecting learning: None Physical limitations affecting learning: None Educational materials provided: none this visit Anthropometrics: Height: Last 1 Encounter Ht Readings: Date: Ht: 11/02/2022 180.3 cm (5' 10.98 ) Current weight: Last 1 Encounter Wt Readings: Date: Wt: 11/02/2022 92.6 kg (204 lb 3.2 oz) Estimated body mass index is 28.49 kg/m as calculated from the following: Height as of 11/02/22: 180.3 cm (5' 10.98 ). Weight as of 11/02/22: 92.6 kg (204 lb 3.2 oz). Resting Metabolic Rate: 1781 Weight Loss: 5.1kg )5.2%) x ~6-7 months per pt- not clinically significant UBW: 215# (97.7kg) this past summer Dosing Weight: 92.6 kg Estimated kilocalorie needs: 9235-8471 kilocalories determined by 25-30 kcal/kg Estimated protein needs: 93-111 grams determined by 1.0-1.2 g/kg Dosing weight Estimated fluid needs: ~6127-2227 milliliters based on 1 mL per kcal (unless otherwise noted) Nutrition Focused Physical Exam: Unable to perform exam due to patient unavailable, will re-attempt during reassessment. Potential Signs of Inflammation: chronic condition Allergies: Patient has no known allergies. Medications: Current Outpatient Medications Medication Sig Dispense Refill prochlorperazine (COMPAZINE) 10 mg tablet Take 1 tablet by mouth every 6 hours as needed. 100 tablet 2 ondansetron (ZOFRAN) 8 mg tablet Take 1 tablet by mouth every 8 hours as needed for nausea/vomiting. 90 tablet 2 lisinopril (ZESTRIL, PRINIVIL) 40 mg tablet Take 40 mg by mouth once daily. doxazosin (CARDURA) 4 mg tablet Take 4 mg by mouth once daily. pravastatin (PRAVACHOL) 20 mg tablet Take 20 mg by mouth once daily. ibuprofen (MOTRIN) 200 mg tablet Take 200 mg by mouth every 6 hours as needed. No current facility-administered medications for this visit. Need for Follow up: will continue to follow Referred by: Biju LOW Billing Type: Initial Assess/15 min 1 unit Time Spent with Patient: 15 minutes Signed by: Yadi Simms MS, RDLesa, LD documented in this encounter [facility] 11-03-2022 History of Present illness Narrative ONCOLOGY PATIENT EDUCATION NOTE TOPIC: Chemotherapy, Medications: Cisplatin READINESS TO LEARN: COGNITIVE ABILITY: Alert and oriented MOTIVATION TO LEARN: Interested FAMILY SUPPORT: High - Very involved in pt care INSTRUCTION PROVIDED TO: Patient and Spouse INSTRUCTION PROVIDED BY: Nurse Coordinator PATIENT LEARNS BEST BY: Multiple Methods FACTORS AFFECTING LEARNING: None PHYSICAL LIMITATIONS AFFECTING LEARNING: None LEARNING RESPONSE DIAGNOSIS: oropharyngeal cancer METHOD OF INSTRUCTION: Individual instruction Written instruction - handouts Verbal instruction PATIENT/FAMILY RESPONSE: Verbalizes understanding of: CHEMOTHERAPY-Regimen, toxicity and side effects INFECTION MANAGEMENT-Signs and symptoms of an infection and importance of contacting the physician MEDICAL REGIMEN-Importance of following prescribed medical regimen MEDICATION PRESCRIBED-Accurate knowledge of prescribed medication prior to discharge MEDICATION ROUTE-Correct route for administration of the prescribed medication MEDICATION SIDE EFFECTS-Side effects associated with the medication that warrant a call to the physician PATIENT SAFETY PRINCIPLES SYMPTOM MANAGEMENT-Correct actions to take to manage symptoms associated with his/her disease/illness WORSENING CONDITION-Signs and symptoms of a worsening condition that warrant a call to the physician Information received as demonstrated by interest and questions FOLLOW UP PLAN: Patient instructed to call with any further issues Recommend - Recommend continued instruction and follow up as directed Follow up phone call. Contact information given. SUPPLEMENTAL MATERIAL: Written material was provided at this visit with the following information: - Chemotherapy education was provided by a pharmacist YES - Side effect management information was provided/discussed including but not limited to: abdominal discomfort, anemia, appetite changes, arthralgia, bowel habit changes, chest pain, diet, electrolyte disturbances, fatigue, hair loss, headache, hypersensitivity reaction, infection, kidney toxicity, myalgia, nausea/vomitting, neutropenia, peripheral neuropathy, rash, risk for DVT, shortness of breath, skin changes, taste changes, thrombocytopenia YES - Provided important phone numbers and contacts during and after hours. YES - Provided information on symptoms that require immediate assistance. YES - Provided Chemotherapy when to call handouts YES - Preventing infection. YES - Treatment schedule and confirmation of appointment times. YES - Available support groups. YES - The importance of contraception during the course of chemotherapy YES - Prescriptions for anti-emetics or treatment prep was given: Compazine and Zofran. YES - A tour was given of the infusion suite with directions for the first day. YES - Neutropenic fever protocol discussed with patient, which included the importance of reporting any fever of 100.4F (38.0C) or greater to the healthcare team as noted on the provided wallet card and/or magnet. YES - [facility] Information. YES - Patient services information. YES Time Spent: 45 minutes REFERRAL (RECOMMENDATION): pt aware of services available here at our office. Chiqui Modi RN Surgical Orderly Pre Chemo Patient identified by name and date of . YES Confirmed date and time for chemotherapy ? YES TBD Other appointments (labs, imaging) discussed? 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 NO Described the infusion room and what to expect. (What to wear, what to bring [iPad, books] amount of time treatment can take, meals and CC options for food) YES Note: tour provided to pt and Discussed whether the patient can eat prior to labs and treatment. YES Who is driving you to and from treatment? Spouse Discussed why it is important to bring someone with you. No Resources discussed (music therapy, Art therapy, pet therapy, etc.) YES Education on chemotherapy (drug, side effects) discussed and that the patient will be receiving a C1D1 call within 7 days of treatment. YES Other topics discussed, interventions needed: pt will be having a sim today and will determine after that when treatment will begin. Chemotherapy will then be scheduled as well. Chiqui Modi RN Images from the original note were not included. [facility] Department of Pharmacy Oncology Pharmacy Medication Education Patient Name: Caitlin Elmore Primary Oncologist: elizabeth borjas Diagnosis: oropharnyx ca Caitlin Elmore is a 57 year old patient and spouse here today for medication education for IV CISPLATIN . Drug Interactions: Clinically significant interactions with chemotherapy, immunosuppression, or other standard of care treatment plan medications anticipated: No. There are no pertinent drug interactions identified. Patient was counseled accordingly. Allergies: Patient confirmed allergies documented in Epic are correct: Yes Was medication education provided?: Yes Medication Education: Administration and schedule: IV weekly Potential side effects discussed: anemia, appetite changes, bowel habit changes, electrolyte disturbances, fatigue, hearing impairment, infection, kidney toxicity, nausea/vomitting, neutropenia, thrombocytopenia PO chemo: Not applicable Was medication reconciliation performed?: Yes Changes made to medication list? Yes The following medications were updated within the home medication list: Medications UPDATED on home medication list: Sigs added to lisinopril and pravastin Medications DISCONTINUED from home medication list: APAp Current Outpatient Medications Medication Sig prochlorperazine (COMPAZINE) 10 mg tablet Take 1 tablet by mouth every 6 hours as needed. ondansetron (ZOFRAN) 8 mg tablet Take 1 tablet by mouth every 8 hours as needed for nausea/vomiting. lisinopril (ZESTRIL, PRINIVIL) 40 mg tablet Take 40 mg by mouth once daily. doxazosin (CARDURA) 4 mg tablet Take 4 mg by mouth once daily. pravastatin (PRAVACHOL) 20 mg tablet Take 20 mg by mouth once daily. ibuprofen (MOTRIN) 200 mg tablet Take 200 mg by mouth every 6 hours as needed. No current facility-administered medications for this visit. - Chemotherapy education was provided by a pharmacist NO - Provided important phone numbers and contacts during and after hours. YES - Provided information on symptoms that require immediate assistance. YES - Provided Chemotherapy when to call handouts YES - Preventing infection. YES - Treatment schedule and confirmation of appointment times. YES - Available support groups. NA - The importance of contraception during the course of chemotherapy NA - Prescriptions for anti-emetics or treatment prep was given: Compazine and Zofran. YES Thank you for allowing us to participate in the care of this patient. I spent 15 time (15 minute increments) with the patient Evon Santoyo RPh Pager: documented in this encounter [facility] 11-03-2022 Miscellaneous Notes Ambulatory Pharmacy Prior Authorization Note Provider Intervention Required?: No- Pharmacy completed on your behalf. Rx Plan: Other: [facility]: Ondansetron HCl 8MG tablets Cover My Meds [place]: [id number] Determination: Approved Prior Authorization/Case #: [id number] Prior Authorization Expiration: 11/03/2023 Time to PA Submission in CMM: 15 min Time to PA Determination in CMM: Same day Additional Information: For questions relating to this submission, please contact [facility] at [phone] documented in this encounter [facility] 11-02-2022 History of Present illness Narrative Images from the original note were not included. PATIENT NAME: Caitlin Elmore [facility] NO.: [id number] ATTENDING PHYSICIAN: Elizabeth Borjas MD DATE OF SERVICE: November 02, [address] Nino Esposito thank you for referring Mr. Caitlin Elmore for an opinion regarding BOT SCC, P16 positive . CHIEF COMPLAINT: I have throat cancer HPI: Caitlin Elmore is a 57 year old year old male with PMH sig for BPH and HTN, who is an active smoker who noticed a R sided neck node about 4 months ago and more recently developed sore throat. He was seen by Dr. Forbes and noted to have a R BOT mass. He had a CT 10/2022 which demonstrated: Large hyperdense mass posterior right base of tongue 4.5 x 2.9 x 2.9 cm. Enlarged right parapharyngeal lymph node, level 2 lymph node 4.6 x 2.4 x 2.7 cm Direct Laryngoscopy 10/18/2022: Findings from the procedure demonstrated a hard mass in the right base of tongue difficult to visualize due to patient's narrow palate and small mouth. Biopsies were obtained. Pathology demonstrating: Tongue base biopsy 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 Patient overall feels well and denies difficulty swallowing. Some otalgia. Denies any cough and or chest pain He is scheduled for dental extraction and also a PET scan. He is wondering if he can wait until he has completed a planned cruise in Mid Nov. Current Outpatient Medications Medication Sig lisinopril (ZESTRIL, PRINIVIL) 40 mg tablet Take by mouth. doxazosin (CARDURA) 4 mg tablet Take 4 mg by mouth once daily. pravastatin (PRAVACHOL) 20 mg tablet Take by mouth. acetaminophen (TYLENOL) 500 mg tablet Take 1,000 mg by mouth every 6 hours as needed. ibuprofen (MOTRIN) 200 mg tablet Take 200 mg by mouth every 6 hours as needed. No current facility-administered medications for this visit. ALLERGIES No Known Allergies PAST MEDICAL HISTORY Diagnosis Date Hard of hearing HTN (hypertension) Hypercholesteremia PAST SURGICAL HISTORY Procedure Laterality Date PAST SURGICAL HISTORY OF Right mastoidectomy and incus repair TONSILLECTOMY & ADENOIDECTOMY <AGE 13 FAMILY HISTORY Problem Relation Age of Onset Prostate Cancer Father Thyroid Cancer Sister Social History Tobacco Use Smoking status: Former Packs/day: 1.00 Years: 35.00 Pack years: 35.00 Types: Cigarettes Quit date: 10/13/2022 Years since quittin.0 Smokeless tobacco: Former Substance Use Topics Alcohol use: Yes Comment: occ Drug use: Not Currently Types: Marijuana REVIEW OF SYSTEMS GENERAL: No weight loss, malaise or fevers. No night sweats. HEENT: Negative for headaches, No changes in hearing or vision, no nose bleeds or other nasal problems. RESPIRATORY: Negative for cough, wheezing and shortness of breath CARDIOVASCULAR: Negative for chest pain, leg swelling and palpitations GI: Negative for abdominal discomfort, blood in stools or black stools and change in bowel habits : Negative for dysuria, frequency and incontinence MUSCULOSKELETAL: Negative for joint pain or swelling, back pain, and muscle pain. SKIN: Negative for lesions, rash, and itching. HEMATOLOGY/LYMPHOLOGY Negative for prolonged bleeding, bruising easily, and swollen nodes. NEURO: Negative for numbness or tingling of hands/feet. No weakness. PHYSICAL EXAMINATION: There were no vitals taken for this visit. There were no vitals taken for this visit. Last 3 Encounter Wt Readings: Date: Wt: 10/27/2022 92.1 kg (203 lb) General appearance:ECOG PERFORMANCE STATUS: 0- Fully active, able to carry on all pre-disease performance w/o restriction. Patient in NAD. Skin: Skin color, texture, turgor normal. No rashes or lesions. Eyes: Anicteric sclera. Pupils are equally round and reactive to light. Extraocular movements are intact. Breast: No palpable breast masses. No nipple change or discharge. Lymph Nodes: No cervical, supraclavicular, axillary or inguinal adenopathy. Oropharynx: Lips, mucosa, and tongue normal. Back: No pain to percussion. Negative SLR test Lungs clear to auscultation, No wheezing or rhonchi Heart: RRR without murmur, gallop, or rubs. Abdomen soft, non-tender. No masses, organomegaly Extremities: No deformities. No edema Neuro: Gait and speech normal. Reflexes normal and symmetric. Muscular strength intact. Sensation grossly intact. Rectal: Deferred : Deferred LABS: No results found for: GLUC, K, NA, CHLOR, CO2, CREAT, BUN, ANION, CA, TPROT, ALB, TBILI, ALKPHOS, AST, ALT No results found for: WBC, RBC, HB, HCT, MCV, MCH, MCHC, RDWCV, PLT, MPV, MPV, NEUT, ABSNEUT, LYMPHP, ABSLYMPH, MONOP, ABSMONO, EOSINP, ABSEOSIN, BASOP, ABSBASO PATH: L BOT mass Biopsy 10/18/2022: 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 IMAGING: CT Neck 10/2022: ASSESSMENT AND PLAN: Caitlin Elmore is a 57 year old year old male PMH Htn and BPH and a smoker with T3,N1,M0 BOT. Plan for concurrent therapy. We discussed the toxicity and rational for weekly cisplatin Will arrange for chemo teach Follow up with the PET Arrange chemo start with the start of radiation. Dear Dr. Nino Esposito, thank you for allowing me to participate in Mr Caitlin Elmore care, if there are any questions or concerns please do not hesitate to contact me at the number below. Elizabeth Borjas M.D. Hematology/Medical Oncology [facility] [phone] CC: DO Alex Brice MD Douglas M Hoy, MD documented in this encounter [facility] 11-01-2022 Miscellaneous Notes Information faxed as requested. Janene Miller LPN Please fax requested information to [phone]. Janene Miller LPN [facility] called back stating the dentist is requesting patient's diagnosis, recommended treatment, and field of radiation prior to signing off for radiation clearance. Please advise. Janene Miller LPN [facility] left a message requesting patient information including diagnosis and treatment abarca for CLARICE. I called back and left a message for someone to call back to get specific details of what they are looking for. Janene Miller LPN documented in this encounter [facility] 10-27-2022 Miscellaneous Notes Patient scheduled for dental evaluation at [facility] on 10/31 @ 1:30. Called patient to inform of appointment date & time. Dental evaluation form also faxed to office. Abbie Knowles documented in this encounter [facility] 10-27-2022 Nurse Note Radiation Therapy - Patient Education Note PATIENT NAME: Caitlin Elmore PATIENT October 27, 2022 [facility] FACILITY/LOCATION: [facility] READINESS TO LEARN Cognitive Ability: Alert and oriented Motivation to learn: Interested Family Support: High - Very involved in pt care Instruction provide to: Patient and Spouse Patient learns best by: Multiple Methods Factors effecting learning: None Physical limitations effecting learning: Sensory Deficit Hearing: Hard of Hearing LEARNING RESPONSE Diagnosis: Pt scheduled for simulation for radiation therapy to head and neck. Education Topic/Teaching Points: Radiation therapy, Side effects, and OTV: Method of instruction: Written instruction - handouts Verbal instruction Patient /Family response: Patient and family verbalized understanding of radiation treatments, side effects, OTV, and transportation. Follow-up plan: Recommend - Recommend continued instruction and follow up as directed Supplemental material: Informational handouts on Appetite, Esophagitis/Mucositis, Fatigue, Hair loss, Head and neck packet, Skin changes, Salt and soda rinses, and taste changes, managing swallowing difficulties, patient education binder. Referral (recommendation): Dietitian Was approved? No Signed by: Janene Miller LPN documented in this encounter [facility] 10-27-2022 History of Present illness Narrative Radiation Oncology - New Patient/Consult Note PATIENT NAME: Caitlin Elmore PATIENT : 1965 REQUESTING PROVIDER: Dr. 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 HPI: 57 year old male who presents with above diagnosis, for an opinion regarding the role of radiation therapy in the management of the patient's disease. Final recommendations will be communicated back to the requesting physician by way of the shared medical record, or letter to requesting physician via US mail. Patient presented with right-sided neck mass. No significant neck pain though did describe development of otalgia on the right side for approximately 6 weeks. Also developed some hemoptysis. Initial treatment with antibiotics without improvement. Ultrasound 09/09/2022 was done demonstrating a 4 x 3.5 x 1.8 cm hypervascular mass. He underwent FNA 09/22/2022 with degenerative atypical cells. He was seen by Dr. Forbes.. Found to have a right base of tongue mass. He underwent further evaluation including CT neck 10/13/2022 demonstrating: Large hyperdense mass posterior right base of tongue 4.5 x 2.9 x 2.9 cm. Enlarged right parapharyngeal lymph node, level 2 lymph node 4.6 x 2.4 x 2.7 cm. Patient was brought in for direct laryngoscopy and biopsy in 10/18/2022. Findings from the procedure demonstrated a hard mass in the right base of tongue difficult to visualize due to patient's narrow palate and small mouth. Biopsies were obtained. Pathology demonstrating: Tongue base biopsy 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 FOCUSED ROS: Dysphagia: No Mucositis: No Voice Changes:No Fatigue: No Nausea: No Vomitting: No Pain: Yes see HPI Taste: No Weight loss: Yes less than 10 pounds ALLERGIES No Known Allergies MEDICATIONS: lisinopril (ZESTRIL, PRINIVIL) 40 mg tablet Take by mouth. doxazosin (CARDURA) 4 mg tablet Take 4 mg by mouth once daily. pravastatin (PRAVACHOL) 20 mg tablet Take by mouth. acetaminophen (TYLENOL) 500 mg tablet Take 1,000 mg by mouth every 6 hours as needed. ibuprofen (MOTRIN) 200 mg tablet Take 200 mg by mouth every 6 hours as needed. PAST MEDICAL HISTORY Diagnosis Date Hard of hearing HTN (hypertension) Hypercholesteremia Prior radiation therapy, collagen vascular disease, or inflammatory bowel disease: No PAST SURGICAL HISTORY Procedure Laterality Date PAST SURGICAL HISTORY OF Right mastoidectomy and incus repair TONSILLECTOMY & ADENOIDECTOMY <AGE 13 FAMILY HISTORY Problem Relation Age of Onset Prostate Cancer Father Thyroid Cancer Sister Social History Tobacco Use Smoking status: Former Packs/day: 1.00 Years: 35.00 Pack years: 35.00 Types: Cigarettes Quit date: 10/13/2022 Years since quittin.0 Smokeless tobacco: Former Substance Use Topics Alcohol use: Yes Comment: occ Drug use: Not Currently Types: Marijuana COMPLETE REVIEW OF SYSTEMS: GENERAL: feeling well without fatigue, no recent change in weight NECK: See HPI RESPIRATORY: no cough, no wheezing or shortness of breath GI: normal appetite, tolerating PO well, BMs normal, and no abdominal pain MUSCULOSKELETAL: denies any painful or swollen joints, no muscle aches SKIN: no rash NEURO: no numbness or paresthesias and no weakness of the extremities As noted in HPI PHYSICAL EXAM: VS: BP 174/103 Pulse 60 Temp 36.5 C (97.7 F) Ht 180.3 cm (5' 11 ) Wt 92.1 kg (203 lb) SpO2 98% BMI 28.31 kg/m KPS: 100 General Appearance: Alert and oriented. No acute distress. HEENT: NCAT. Sclera anicteric. PERRL. EOMI. Oral cavity & oropharnyx: lips and gums normal, oral and pharyngeal mucosa moist, tongue appears slightly deviated to the right asymmetric towards the right no obvious lesions on visual exam however on bimanual exam very firm area posterior right tongue at the base of tongue region approaching midline no other significant lesions notable teeth appear to be an good health without active gingival changes. No trismus although somewhat small amount. Neck: High-level 2 firm 3 to 4 cm lymph node on the right no other palpable adenopathy Chest: No respiratory distress. Lungs clear to auscultation bilaterally. Heart: Regular rate and rhythm. Abdomen: Soft. Nontender. Nondistended. Musculoskeletal: No edema. Normal ROM in extremities. No bone or spine tenderness. Neuro: Speech fluent. Gait normal. No focal deficits. Skin: No rashes noted Hematologic: No signs of active bleeding. 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 Patient overall excellent performance status though with fairly large p16 positive base of tongue cancer. I do feel definitive radiation with concurrent chemotherapy is indicated. He does have p16 disease however does not qualify for current de-escalation trial. I do feel given size and extent of his disease that consideration of concurrent chemotherapy is warranted. The role of radiation including potential acute and long-term effects were discussed at length with patient and his . We will plan to coordinate treatment planning process with simulation to be scheduled soon. I do recommend further staging with PET scan. Recommend referral to dentist for least fluoride prophylactic trays and to assure no urgent dental work is needed. We will have him see medical oncology as well as dietitian. We did discuss potential need for PEG tube which could be done ahead of time or time should he needed due to weight loss etc. Patient will return early next week to initiate the planning process and will discuss medical oncology in terms of coordination of further care. He also may be a candidate for current [facility] head and neck study randomizing between weekly and every 3 week cis-[place] during radiation. That he should Signed by: Nino Esposito MD cc: Naty Burton MD [address] [place] [id number] Enoch Forbes MD [address] [place] [id number] documented in this encounter [facility] 10-18-2022 Note OPERATIVE NOTE OPERATION DATE: 10/18/2022 PRIMARY CARE PHYSICIAN: Naty Burton M.D. SURGEON: Enoch Forbes M.D. PREOPERATIVE DIAGNOSIS: Right neck mass and right tongue base mass. POSTOPERATIVE DIAGNOSIS: Squamous cell carcinoma of the right tongue base with metastasis to the neck. PROCEDURE: Direct laryngoscopy and biopsy: ANESTHESIA: General endotracheal. COMPLICATIONS: None. FINDINGS: Hard mass of the right tongue base, difficult to visualize do the patient's very narrow palate and small mouth. INDICATIONS: This 57-year-old man presented with a six week history of a mass of the right zone 2 neck. An ultrasound was initially obtained, which revealed a 4 cm zone 2 mass consistent with a metastasis. A CT scan was subsequently obtained, as part of the patient's pre-op evaluation, which I reviewed today, and shows a zone 2 mass consistent with the ultrasound, as well as a large mass of the deep right tongue base, extending across the midline. PROCEDURE: Patient identified in the holding area and taken back to the OR, where he was placed in the supine position. After induction of general endotracheal anesthesia, the table was turned, the shoulder placed, and a McIvor mouth gag inserted with care taken to avoid injury to the lips, teeth and tongue. Because of the size and depth of the patient's mass, the McIvor mouth gag was not able to expose the mass. Therefore, a rubber hooked mouth gag was used to open the mouth widely. The tongue was grasped and retracted anteriorly, and then using a 30 degree endoscope, the tongue base was visualized. Using upbiting cup forceps and upbiting sinus instruments, multiple biopsies were obtained of the patient's mass. Frozen section was obtained to ensure that an adequate specimen had been obtained, and on frozen section, squamous cell carcinoma was confirmed. The tumor will be processed and final pathology for papilloma virus. There was self-limited bleeding in the pharynx, which was suctioned and the patient was awakened and taken to the recovery room in good condition. CC: Alex Esposito M.D. [facility] 06-10-2022 Hospital Discharge instructions Patient Education 06/10/2022 08:42:02 Prostate Cancer Screening Prostate Cancer Screening The prostate is a walnut-sized gland that is located below the bladder and in front of the rectum in males. The function of the prostate (prostate gland) is to add fluid to semen during ejaculation. Prostate cancer is the second most common type of cancer in men. A screening test for cancer is a test that is done before cancer symptoms start. Screening can help to identify cancer at an early stage, when the cancer can be treated more easily. The recommended prostate cancer screening test is a blood test called the prostate-specific antigen (PSA) test. PSA is a protein that is made in the prostate. As you age, your prostate naturally produces more PSA. Abnormally high PSA levels may be caused by: Prostate cancer. An enlarged prostate that is not caused by cancer (benign prostatic hyperplasia, BPH). This condition is very common in older men. A prostate gland infection (prostatitis). Medicines to assist with hair growth, such as finasteride. Depending on the PSA results, you may need more tests, such as: A physical exam to check the size of your prostate gland. Blood and imaging tests. A procedure to remove tissue samples from your prostate gland for testing (biopsy). Who should have screening? Screening recommendations vary based on age. If you are younger than age 40, screening is not recommended. If you are age 40 54 and you have no risk factors, screening is not recommended. If you are younger than age 55, ask your health care provider if you need screening if you have one of these risk factors: ?Being of -[place]alese descent. ?Having a family history of prostate cancer. If you are age 55 69, talk with your health care provider about your need for screening and how often screening should be done. If you are older than age 70, screening is not recommended. This is because the risks that screening can cause are greater than the benefits that it may provide (risks outweigh the benefits). If you are at high risk for prostate cancer, your health care provider may recommend that you have screenings more often or start screening at a younger age. You may be at high risk if you: Are older than age 55. Are -N[place]alese. Have a father, brother, or uncle who has been diagnosed with prostate cancer. The risk may be higher if your family member's cancer occurred at an early age. What are the benefits of screening? There is a small chance that screening may lower your risk of dying from prostate cancer. The chance is small because prostate cancer is typically a slow-growing cancer, and most men with prostate cancer from a different cause. What are the risks of screening? The main risk of prostate cancer screening is diagnosing and treating prostate cancer that would never have caused any symptoms or problems (overdiagnosis and overtreatment). PSA screening cannot tell you if your PSA is high due to cancer or a different cause. A prostate biopsy is the only procedure to diagnose prostate cancer. Even the results of a biopsy may not tell you if your cancer needs to be treated. Slow-growing prostate cancer may not need any treatment other than monitoring, so diagnosing and treating it may cause unnecessary stress or other side effects. A prostate biopsy may also cause: Infection or fever. A false negative. This is a result that shows that you do not have prostate cancer when you actually do have prostate cancer. Questions to ask your health care provider When should I start prostate cancer screening? What is my risk for prostate cancer? How often do I need screening? What type of screening tests do I need? How do I get my test results? What do my results mean? Do I need treatment? Contact a health care provider if: You have difficulty urinating. You have pain when you urinate or ejaculate. You have blood in your urine or semen. You have pain in your back or in the area of your prostate. You have trouble getting or maintaining an erection (erectile dysfunction, ED). Summary Prostate cancer is a common type of cancer in men. The prostate (prostate gland) is located below the bladder and in front of the rectum. This gland adds fluid to semen during ejaculation. Prostate cancer screening may identify cancer at an early stage, when the cancer can be treated more easily. The prostate-specific antigen (PSA) test is the recommended screening test for prostate cancer. Discuss the risks and benefits of prostate cancer screening with your health care provider. If you are age 70 or older, screening is likely to lead to more risks than benefits (risks outweigh the benefits). This information is not intended to replace advice given to you by your health care provider. Make sure you discuss any questions you have with your health care provider. Document Released: 07/06/2018 Document Revised: 09/07/2018 Document Reviewed: 07/06/2018 [employer] Patient Education 2020 [employer]. Follow Up Care 05/30/2022 13:32:45 With:Shelly Cook, URL Address: When:Within 8 Month(s) Comments:F/U PSA (free and total), BPH, elevated PSA [facility] Evaluation + Plan note Future Appointments Appointment Date:02/10/2023 09:00:00 AM Scheduled Provider:Shelly Cook Location:[facility] Appointment Type:URO Office Visit Diagnostic Tests PendingPSA Free & Total 06/10/22 [facility] Evaluation + Plan note Future Appointments Appointment Date:07/07/2023 10:00:00 AM Scheduled Provider:Norma Craig MD Location:[facility] Appointment Type:URO Office Visit Appointment Date:09/21/2023 09:00:00 AM Scheduled Provider:Norma Craig MD Location:[facility] Appointment Type:URO Office Visit [facility] Evaluation + Plan note Future Appointments Appointment Date:09/21/2023 09:00:00 AM Scheduled Provider:Norma Craig MD Location:[facility] Appointment Type:URO Office Visit Appointment Date:07/05/2024 10:00:00 AM Scheduled Provider:Norma Craig MD Location:[facility] Appointment Type:URO Office Visit Diagnostic Tests PendingPSA Free & Total 07/07/23 [facility] Evaluation note Diagnosis Oropharnyx cancer (HCC)- [facility] Diagnosis 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 documented in this encounter [facility] note* Diagnosis Oropharnyx cancer (HCC)- Primary [facility] Diagnosis Oropharnyx cancer (HCC)- Primary documented in this encounter [facility] note* Diagnosis Oropharnyx cancer (HCC)- Primary documented in this encounter [facility] note* Diagnosis Oropharnyx cancer (HCC)- Primary documented in this encounter [facility] note* Diagnosis Oropharnyx cancer (HCC)- Primary documented in this encounter [facility] note* Diagnosis Oropharnyx cancer (HCC)- Primary documented in this encounter [facility] note* Diagnosis Oropharnyx cancer (HCC)- Primary documented in this encounter [facility] note* Diagnosis Oropharnyx cancer (HCC)- Primary documented in this encounter [facility] note* Diagnosis Oropharnyx cancer (HCC)- Primary documented in this encounter [facility] note* Diagnosis Oropharnyx cancer (HCC)- Primary documented in this encounter [facility] note* Diagnosis Oropharnyx cancer (HCC)- Primary documented in this encounter [facility] note* Diagnosis Oropharnyx cancer (HCC)- Primary documented in this encounter [facility] note* Diagnosis Oropharnyx cancer (HCC)- Primary documented in this encounter [facility] note* Diagnosis Oropharnyx cancer (HCC)- Primary Esophagitis Esophagitis, unspecified documented in this encounter [facility] note* Diagnosis Oropharnyx cancer (HCC)- Primary documented in this encounter [facility] note* Diagnosis Oropharnyx cancer (HCC)- Primary documented in this encounter [facility] note* Diagnosis Oropharnyx cancer (HCC)- Primary Esophagitis Esophagitis, unspecified Elevated prostate specific antigen (PSA) documented in this encounter [facility] note* Diagnosis Oropharnyx cancer (HCC)- Primary documented in this encounter [facility] note* Diagnosis O[facility]arnyx cancer (HCC)- [facility] 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 Oropharnyx cancer (HCC) [facility] Diagnosis [facility]arnyx cancer (HCC)- Primary [facility] Diagnosis Oropharnyx cancer (HCC)- Primary Severe protein-calorie malnutrition (HCC) Other severe protein-calorie malnutrition [facility] Diagnosis 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 Oropharnyx cancer (HCC) [facility] Diagnosis 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 Oropharnyx cancer (HCC) [facility] Diagnosis Oropharnyx cancer (HCC)- Primary Severe protein-calorie malnutrition (HCC) Other severe protein-calorie malnutrition [facility] Diagnosis Oropharnyx cancer (HCC)- Primary [facility] Diagnosis 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 Oropharnyx cancer (HCC) [facility] Diagnosis Oropharnyx cancer (HCC)- Primary Cancer related pain Neoplasm related pain (acute) (chronic) [facility]* Diagnosis Oropharnyx cancer (HCC)- Primary Severe protein-calorie malnutrition (HCC) Other severe protein-calorie malnutrition [facility]* Diagnosis 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 [facility]* Diagnosis 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 Oropharnyx cancer (HCC) [facility]* Diagnosis 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 [facility] Diagnosis 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 Oropharnyx cancer (HCC) [facility]* Diagnosis Oropharnyx cancer (HCC)- Primary documented in this encounter [facility] note* Diagnosis Elevated prostate specific antigen (PSA)- Primary documented in this encounter [facility] note* Diagnosis Oropharnyx cancer (HCC)- Primary documented in this encounter [facility] note* Diagnosis Oropharnyx cancer (HCC)- Primary documented in this encounter [facility] note* Diagnosis Encounter for observation for other suspected diseases and conditions ruled out- Primary documented in this encounter [facility] noteNo assessment [facility] Work [facility]: [facility]* Diagnosis Oropharnyx cancer (HCC)- Primary documented in this encounter [facility] note* Diagnosis Pulmonary nodule- Primary Solitary pulmonary nodule Preoperative examination Preoperative examination, unspecified documented in this encounter [facility] note* Diagnosis Pulmonary nodule Solitary pulmonary nodule Preoperative examination Preoperative examination, unspecified Bronchiolar disease Other diseases of trachea and bronchus documented in this encounter [facility] note* Diagnosis Lung nodule Solitary pulmonary nodule documented in this encounter [facility] note* 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 Neoplasm of unspecified nature of respiratory system documented in this encounter [facility] note* Diagnosis Pulmonary nodule- Primary Solitary pulmonary nodule 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 Preoperative examination Preoperative examination, unspecified documented in this encounter [facility] note* Diagnosis Oropharnyx cancer (HCC)- Primary 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 documented in this encounter [facility] note* Diagnosis Oropharnyx cancer (HCC)- Primary Malaise and fatigue Other malaise and fatigue documented in this encounter [facility] note* Diagnosis Oropharnyx cancer (HCC)- Primary Malaise and fatigue Other malaise and fatigue Thunderclap headache Headache documented in this encounter [facility] note* Diagnosis Oropharnyx cancer (HCC)- Primary Malaise and fatigue Other malaise and fatigue Thunderclap headache Headache documented in this encounter [facility] note* Diagnosis Oropharnyx cancer (HCC)- Primary documented in this encounter [facility] note* Diagnosis Oropharnyx cancer (HCC)- Primary 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 * Assessment & Plan Note - Negrita Gaffney PA - 05/14/2024 2:46 PM EDT Associated Problem(s): HLD (hyperlipidemia) Takes pravastatin. Denies CP. * Assessment & Plan Note - Negrita Gaffney PA - 05/14/2024 2:45 PM EDT Associated Problem(s): HTN (hypertension) Takes amlodipine and lisinopril. Denies CP, SOB, or palpitations. * Assessment & Plan Note - Negrita Gaffney PA - 05/14/2024 2:45 PM EDT Associated Problem(s): Adrenal insufficiency (HCC) Takes hydrocortisone. Seen by endocrinology on 05/10/24. * Assessment & Plan Note - Negrita Gaffney PA - 05/14/2024 2:44 PM EDT Associated Problem(s): Hypothyroidism Takes Synthroid. Seen by endocrinology on 05/10/24. TSH Date Value Ref Range Status 05/08/2024 5.160 (H) 0.270 - 4.200 mIU/L Final * Assessment & Plan Note - Negrita Gaffney PA - 05/14/2024 2:37 PM EDT Associated Problem(s): Former smoker Quit smoking in 10/2022. ~ 35 pack years. Denies CP or SOB. Reports a chronic cough. 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 Takes Keytruda. Follows with heme/onc, last seen in 05/08/24. [facility] Diagnosis Adenopathy Enlargement of lymph nodes Adenopathy Enlargement of lymph nodes [facility]* Diagnosis Lung nodule- Primary Solitary pulmonary nodule Preoperative examination Preoperative examination, unspecified Adenopathy Enlargement of lymph nodes [facility] Narrative No data available for this section [facility] Progress note No data available for this section [facility] Reason for referral (narrative)* Diagnostic Procedure Only (Routine) - Pending Review Specialty Diagnoses / Procedures Referred By Contac t Referred To Contact MOLECULAR & FUNCTIONAL IMAGING Diagnoses Oropharnyx cancer (HCC) Procedures NM PET/CT SKULL-THIGH SUBSEQUENT PET IMAGING CT ATTENUATION SKULL BASE MID-THIGH Vanesa Gomez PA-C [address] [place] [address] Molecular & Functional Imaging [address] [place], [place] [id number] Referral ID Status Reason Start Date Expiration Date Visits Requested Visits Authorized [id number] Pending Review Auto-Generat ed Referral 03/31/2023 02/19/2024 1 1 [facility] for referral (narrative)* Diagnostic Procedure Only (Routine) - Additional Clinical Info Needed Specialty Diagnoses / Procedures Referred By Contac t Referred To Contact MOLECULAR & FUNCTIONAL IMAGING Diagnoses Neoplasm of lung Procedures NM PET/CT SKULL-THIGH INITIAL PET IMAGING CT ATTENUATION SKULL BASE MID-THIGH Elizabeth Borjas MD [address] [place] [address] Molecular & Functional Imaging [address] [id number] Referral ID Status Reason Start Date Expiration Date Visits Requested Visits Authorized [id number] Additional Clinical Info Needed Auto-Generat ed Referral 10/05/2024 1 1 [facility] for referral (narrative)* Outpatient Procedure (Routine) - New Request Specialty Diagnoses / Procedures Referred By Contac t Referred To Contact [facility] VASCULAR IMOGENE Diagnoses Adenopathy Procedures ECG COMPLETE ECG ROUTINE ECG W/LEAST 12 LDS W/I&R Ras Starr MD [address] [place] [address] [address] Referral ID Status Reason Start Date Expiration Date Visits Requested Visits Authorized [id number] New Request Auto-Generat ed Referral 05/13/2024 05/13/2025 1 1 [facility] for visit Narrative* Outpatient Procedure (Routine) - Closed Specialty Diagnoses / Procedures Referred By Contac t Referred To Contact [facility] Diagnoses Adenopathy Procedures ECG COMPLETE ECG ROUTINE ECG W/LEAST 12 LDS W/I&R Ras Starr MD [address] [place] [address] [address] Referral ID Status Reason Start Date Expiration Date V isits Requested Visits Authorized [id number] Closed Auto-Generate d Referral 05/13/2024 05/13/2025 1 1 [facility] Reason for Referral Specialty Diagnoses / Procedures Referred By Contac t Referred To Contact Radiation Oncology Diagnoses Oropharnyx cancer (HCC) Procedures RAD/ONC CONSULT OFFICE/OUTPATIENT NEW HIGH MDM 60 MINUTES Elizabeth Borjsa MD [address] [place] [address] Referral ID Status Reason Start Date Expiration Date Visits Requested Visits Authorized [id number] Authorized PCP Requested Referral 05/08/2024 05/08/2025 1 1 Specialty Diagnoses / Procedures Referred By Contac t Referred To Contact CT IMAGING Diagnoses Pulmonary nodule Preoperative examination Procedures CT CHEST WO IVCON DIAGNOSTIC COMPUTED TOMOGRAPHY THORAX W/O CNTRST Nila Alexander MD [address] [place] [address] Ct [facility] [place] [address] Referral ID Status Reason Start Date Expiration Date Visits Requested Visits Authorized [id number] Pending Review Auto-Generat ed Referral 3 09/01/2024 1 1 Specialty Diagnoses / Procedures Referred By Contac t Referred [facility] Diagnoses Preoperative examination Procedures ECG COMPLETE ECG ROUTINE ECG W/LEAST 12 LDS W/I&R Nila Alexander MD [address] [place] [address] [place] [address] Referral ID Status Reason Start Date Expiration Date Visits Requested Visits Authorized [id number] Pending Review Auto-Generat ed Referral 3 08/02/2024 1 1 Specialty Diagnoses / Procedures Referred By Contac t Referred To Contact MR IMAGING Diagnoses Encounter for observation for other suspected diseases and conditions ruled out Procedures MRI PROSTATE WO/W IVCON MRI PELVIS W/O & W/CONTRAST MATERIAL Nino Esposito MD [address] [place] [id number] Mr Imaging Referral ID Status Reason Start Date Expiration Date Visits Requested Visits Authorized [id number] Pending Review Auto-Generat ed Referral 04/18/2023 05/17/2024 1 1 Specialty Diagnoses / Procedures Referred By Contac t Referred To Contact CT IMAGING Diagnoses Oropharnyx cancer (HCC) Procedures CT CHEST WO IVCON DIAGNOSTIC COMPUTED TOMOGRAPHY THORAX W/O Elizabeth Miller MD [address] [place] [id number] [address] Referral ID Status Reason Start Date Expiration Date Visits Requested Visits Authorized [id number] Authorized Auto-Generat ed Referral 05/17/2024 1 1 Specialty Diagnoses / Procedures Referred By Contac t Referred To Contact Urology Diagnoses Elevated prostate specific antigen (PSA) Procedures CONSULT TO UROLOGY OFFICE/OUTPATIENT [facility] 60-74 MINUTES Vanesa Gomez PA-C [address] [place] [address] Referral ID Status Reason Start Date Expiration Date Visits Requested Visits Authorized [id number] Authorized PCP Requested Referral 01/20/2023 01/20/2024 1 1 Specialty Diagnoses / Procedures Referred By Contac t Referred To Contact Diagnoses Oropharnyx cancer (HCC) Procedures CT SIM PLANNING RADIATION ONCOLOGY THER RAD SIMULAJ-AIDED FIELD SETTING COMPLEX Nino Esposito MD [address] [place] [address] [place] [address] Referral ID Status Reason Start Date Expiration Date Visits Requested Visits Authorized [id number] Pending Review PCP Requested Referral 11/09/2022 02/01/2023 1 1 Specialty Diagnoses / Procedures Referred By Contac t Referred To Contact Oncology Diagnoses Oropharnyx cancer (HCC) Procedures CONSULT TO ONCOLOGY OFFICE/OUTPATIENT [facility] 60-74 MINUTES Nino Esposito MD [address] [place] [address] [place] [address] Referral ID Status Reason Start Date Expiration Date Visits Requested Visits Authorized [id number] Authorized PCP Requested Referral 10/27/2022 10/27/2023 1 1 Specialty Diagnoses / [facility] To Contact MOLECULAR & FUNCTIONAL IMAGING Diagnoses Oropharnyx cancer (HCC) Procedures NM PET/CT SKULL-THIGH INITIAL PET IMAGING CT ATTENUATION SKULL BASE MID-THIGH Nino Esposito MD [address] [place] [address] Molecular & Functional Imaging [address] [place] [address] Referral ID Status Reason Start Date Expiration Date Visits Requested Visits Authorized [id number] Additional Clinical Info Needed Auto-Generat ed Referral 10/27/2022 11/26/2023 1 1 Medications Administered Section Inactive Administered Medications - up to 3 most recent administrations Medication Order MAR Action Action Date Dose Rate Site CISplatin 86 mg in NaCl 0.9% 1,136 mL (PLATINOL) 86 mg (40 mg/m2 2.15 m2 Treatment Plan BSA from Recorded weight), INTRAVENOUS, Administer over 1 Hours, ONCE, 1 dose, On Mon11/21/22 at 1100, Approx Total Volume: mL EXP: 0300 11/23/22 Hazardous Chemotherapy Drug: Use appropriate PPE. Antineoplastic Vesicant for concentrations greater than 0.4 mg/mL - Antineoplastic Irritant for concentrations less than 0.4 mg/mL. Protect from Light. New Bag/Syringe/Bottle 11/21/2022 11:58 AM EST 86 mg dexAMETHasone 10 mg/NS 50 mL (PYXIS) 10 mg ivpb (DECADRON) 10 mg, INTRAVENOUS, ONCE, 1 dose, On Mon11/21/22 at 1100, Refrigerate. New Bag/Syringe/Bottle 11/21/2022 11:03 AM EST 10 mg fosaprepitant 150 mg in NaCl 0.9% 250 mL (EMEND) 150 mg, INTRAVENOUS, Administer over 30 Minutes, ONCE, 1 dose, On Mon11/21/22 at 1100, Approximate Total Volume = 280 mL New Bag/Syringe/Bottle 11/21/2022 11:23 AM EST 150 mg NaCl 0.9% 500 mL INTRAVENOUS, at 500 mL/hr, Administer over 1 Hours, ONCE, 1 dose, On Mon11/21/22 at 1100 New Bag/Syringe/Bottle 11/21/2022 1:02 PM EST 500 mL/hr NaCl 0.9% iv bolus 1,000 mL 1,000 mL, INTRAVENOUS, at 500 mL/hr, Administer over 2 Hours, ONCE, 1 dose, On Mon11/21/22 at 1100 New Bag/Syringe/Bottle 11/21/2022 10:10 AM EST 1,000 mL 500 mL/hr ondansetron (PF) 8 mg injection (ZOFRAN) 8 mg, INTRAVENOUS, ONCE, 1 dose, On Mon11/21/22 at 1100 Given 11/21/2022 11:03 AM EST 8 mg Inactive Administered Medications - up to 3 most recent administrations Medication Order MAR Action Action Date Dose Rate Site CISplatin 86 mg in NaCl 0.9% 1,136 mL (PLATINOL) 86 mg (40 mg/m2 2.15 m2 Treatment Plan BSA from Recorded weight), INTRAVENOUS, Administer over 1 Hours, ONCE, 1 dose, On Mon11/29/22 at 1200, Approx Total Volume: _ EXP:_1800 11/30/22 Hazardous Chemotherapy Drug: Use appropriate PPE. Antineoplastic Vesicant for concentrations greater than 0.4 mg/mL - Antineoplastic Irritant for concentrations less than 0.4 mg/mL. Protect from Light. New Bag/Syringe/Bottle 11/29/2022 1:46 PM EST 86 mg dexAMETHasone 10 mg/NS 50 mL (PYXIS) 10 mg ivpb (DECADRON) 10 mg, INTRAVENOUS, ONCE, 1 dose, On Mon11/29/22 at 1200, Refrigerate. New Bag/Syringe/Bottle 11/29/2022 12:05 PM EST 10 mg fosaprepitant 150 mg in NaCl 0.9% 250 mL (EMEND) 150 mg, INTRAVENOUS, Administer over 30 Minutes, ONCE, 1 dose, On Mon11/29/22 at 1200, Approximate Total Volume = 280 mL New Bag/Syringe/Bottle 11/29/2022 12:24 PM EST 150 mg NaCl 0.9% 500 mL INTRAVENOUS, at 500 mL/hr, Administer over 1 Hours, ONCE, 1 dose, On Mon11/29/22 at 1200 New Bag/Syringe/Bottle 11/29/2022 3:04 PM EST 500 mL/hr NaCl 0.9% iv bolus 1,000 mL 1,000 mL, INTRAVENOUS, at 500 mL/hr, Administer over 2 Hours, ONCE, 1 dose, On Mon11/29/22 at 1200 New Bag/Syringe/Bottle 11/29/2022 11:55 AM EST 1,000 mL 500 mL/hr ondansetron (PF) 8 mg injection (ZOFRAN) 8 mg, INTRAVENOUS, ONCE, 1 dose, On Mon11/29/22 at 1200 Given 11/29/2022 12:05 PM EST 8 mg Inactive Administered Medications - up to 3 most recent administrations Medication Order MAR Action Action Date Dose Rate Site CISplatin 86 mg in NaCl 0.9% 1,136 mL (PLATINOL) 86 mg (40 mg/m2 2.15 m2 Treatment Plan BSA from Recorded weight), INTRAVENOUS, Administer over 1 Hours, ONCE, 1 dose, On Mon12/07/22 at 1130, Approx Total Volume: mL EXP:12/08/2022@1730 Hazardous Chemotherapy Drug: Use appropriate PPE. Antineoplastic Vesicant for concentrations greater than 0.4 mg/mL - Antineoplastic Irritant for concentrations less than 0.4 mg/mL. Protect from Light. New Bag/Syringe/Bottle 12/07/2022 12:51 PM EST 86 mg dexAMETHasone 10 mg/NS 50 mL (PYXIS) 10 mg ivpb (DECADRON) 10 mg, INTRAVENOUS, ONCE, 1 dose, On Mon12/07/22 at 1130, Refrigerate. New Bag/Syringe/Bottle 12/07/2022 11:32 AM EST 10 mg fosaprepitant 150 mg in NaCl 0.9% 250 mL (EMEND) 150 mg, INTRAVENOUS, Administer over 30 Minutes, ONCE, 1 dose, On Mon12/07/22 at 1130, Approximate Total Volume = 280 mL New Bag/Syringe/Bottle 12/07/2022 12:16 PM EST 150 mg NaCl 0.9% 500 mL INTRAVENOUS, at 500 mL/hr, Administer over 1 Hours, ONCE, 1 dose, On Mon12/07/22 at 1130 New Bag/Syringe/Bottle 12/07/2022 2:00 PM EST 500 mL/hr NaCl 0.9% iv bolus 1,000 mL 1,000 mL, INTRAVENOUS, at 999 mL/hr, Administer over 1 Hours, ONCE, 1 dose, On Mon12/07/22 at 1130 New Bag/Syringe/Bottle 12/07/2022 11:00 AM EST 1,000 mL 999 mL/hr ondansetron (PF) 8 mg injection (ZOFRAN) 8 mg, INTRAVENOUS, ONCE, 1 dose, On Mon12/07/22 at 1130 Given 12/07/2022 11:30 AM EST 8 mg Inactive Administered Medications - up to 3 most recent administrations Medication Order MAR Action Action Date Dose Rate Site CISplatin 86 mg in NaCl 0.9% 1,136 mL (PLATINOL) 86 mg (40 mg/m2 2.15 m2 Treatment Plan BSA from Recorded weight), INTRAVENOUS, Administer over 1 Hours, ONCE, 1 dose, On Mon12/14/22 at 0930, Approx Total Volume: mL EXP:12/15/22 1530 RT Hazardous Chemotherapy Drug: Use appropriate PPE. Antineoplastic Vesicant for concentrations greater than 0.4 mg/mL - Antineoplastic Irritant for concentrations less than 0.4 mg/mL. Protect from Light. New Bag/Syringe/Bottle 12/14/2022 11:33 AM EST 86 mg dexAMETHasone 10 mg/NS 50 mL (PYXIS) 10 mg ivpb (DECADRON) 10 mg, INTRAVENOUS, ONCE, 1 dose, On Mon12/14/22 at 0930, Refrigerate. New Bag/Syringe/Bottle 12/14/2022 10:24 AM EST 10 mg fosaprepitant 150 mg in NaCl 0.9% 250 mL (EMEND) 150 mg, INTRAVENOUS, Administer over 30 Minutes, ONCE, 1 dose, On Mon12/14/22 at 0930, Approximate Total Volume = 280 mL New Bag/Syringe/Bottle 12/14/2022 10:45 AM EST 150 mg NaCl 0.9% 500 mL INTRAVENOUS, at 500 mL/hr, Administer over 1 Hours, ONCE, 1 dose, On Mon12/14/22 at 0930 New Bag/Syringe/Bottle 12/14/2022 12:53 PM EST 500 mL/hr NaCl 0.9% iv bolus 1,000 mL 1,000 mL, INTRAVENOUS, at 500 mL/hr, Administer over 2 Hours, ONCE, 1 dose, On Mon12/14/22 at 0930 New Bag/Syringe/Bottle 12/14/2022 9:39 AM EST 1,000 mL 500 mL/hr ondansetron (PF) 8 mg injection (ZOFRAN) 8 mg, INTRAVENOUS, ONCE, 1 dose, On Mon12/14/22 at 0930 Given 12/14/2022 10:24 AM EST 8 mg Inactive Administered Medications - up to 3 most recent administrations Medication Order MAR Action Action Date Dose Rate Site NaCl 0.9% 1,000 mL INTRAVENOUS, at 999 mL/hr, Administer over 1 Hours, ONCE, 1 dose, On Laura 12/15/22 at 1430 New Bag/Syringe/Bottle 12/15/2022 2:20 PM EST 999 mL/hr Inactive Administered Medications - up to 3 most recent administrations Medication Order MAR Action Action Date Dose Rate Site NaCl 0.9% 1,000 mL INTRAVENOUS, at 999 mL/hr, Administer over 1 Hours, ONCE, 1 dose, On Mon12/19/22 at 1430 New Bag/Syringe/Bottle 12/19/2022 2:31 PM EDT 999 mL/hr ondansetron (PF) 8 mg injection (ZOFRAN) 8 mg, INTRAVENOUS, ONCE, 1 dose, On Mon12/19/22 at 1430, Administer 30 minutes prior to infusion. Given 12/19/2022 2:53 PM EDT 8 mg Inactive Administered Medications - up to 3 most recent administrations Medication Order MAR Action Action Date Dose Rate Site CISplatin 86 mg in NaCl 0.9% 1,136 mL (PLATINOL) 86 mg (40 mg/m2 2.15 m2 Treatment Plan BSA from Recorded weight), INTRAVENOUS, Administer over 1 Hours, ONCE, 1 dose, On Mon12/21/22 at 1100, EXP:12/22/2022@1715 Hazardous Chemotherapy Drug: Use appropriate PPE. Antineoplastic Vesicant for concentrations greater than 0.4 mg/mL - Antineoplastic Irritant for concentrations less than 0.4 mg/mL. Protect from Light. New Bag/Syringe/Bottle 12/21/2022 12:24 PM EDT 86 mg dexAMETHasone 10 mg/NS 50 mL (PYXIS) 10 mg ivpb (DECADRON) 10 mg, INTRAVENOUS, ONCE, 1 dose, On Mon12/21/22 at 1100, Refrigerate. New Bag/Syringe/Bottle 12/21/2022 11:51 AM EDT 10 mg fosaprepitant 150 mg in NaCl 0.9% 250 mL (EMEND) 150 mg, INTRAVENOUS, Administer over 30 Minutes, ONCE, 1 dose, On Mon12/21/22 at 1100, Approximate Total Volume = 280 mL New Bag/Syringe/Bottle 12/21/2022 11:20 AM EDT 150 mg NaCl 0.9% 500 mL INTRAVENOUS, at 500 mL/hr, Administer over 1 Hours, ONCE, 1 dose, On Mon12/21/22 at 1100 New Bag/Syringe/Bottle 12/21/2022 1:40 PM EDT 500 mL/hr NaCl 0.9% iv bolus 1,000 mL 1,000 mL, INTRAVENOUS, at 500 mL/hr, Administer over 2 Hours, ONCE, 1 dose, On Mon12/21/22 at 1100 New Bag/Syringe/Bottle 12/21/2022 10:40 AM EDT 1,000 mL 500 mL/hr ondansetron (PF) 8 mg injection (ZOFRAN) 8 mg, INTRAVENOUS, ONCE, 1 dose, On Mon12/21/22 at 1100 Given 12/21/2022 11:13 AM EDT 8 mg Inactive Administered Medications - up to 3 most recent administrations Medication Order MAR Action Action Date Dose Rate Site NaCl 0.9% 1,000 mL INTRAVENOUS, at 999 mL/hr, Administer over 1 Hours, ONCE, 1 dose, On Mon12/30/22 at 1500 New Bag/Syringe/Bottle 12/30/2022 2:01 PM EDT 999 mL/hr ondansetron (PF) 8 mg injection (ZOFRAN) 8 mg, INTRAVENOUS, ONCE, 1 dose, On Mon12/30/22 at 1500, Administer 30 minutes prior to infusion. Given 12/30/2022 2:48 PM EDT 8 mg Inactive Administered Medications - up to 3 most recent administrations Medication Order MAR Action Action Date Dose Rate Site NaCl 0.9% 1,000 mL INTRAVENOUS, at 999 mL/hr, Administer over 1 Hours, ONCE, 1 dose, On Mon01/11/23 at 1030 New Bag/Syringe/Bottle 01/11/2023 10:37 AM EDT 999 mL/hr Inactive Administered Medications - up to 3 most recent administrations Medication Order MAR Action Action Date Dose Rate Site NaCl 0.9% 1,000 mL INTRAVENOUS, at 999 mL/hr, Administer over 1 Hours, ONCE, 1 dose, On Mon01/13/23 at 1230 New Bag/Syringe/Bottle 01/13/2023 12:32 PM EDT 999 mL/hr Summary Purpose Family History No Family History Records Found No data available for this section No Family History Records FoundNo Family History Records FoundNo Family History Records FoundNo Family History Records FoundNo Family History Records Found Advance Directives No Advanced Directives Records Found Advance Directive Response Recorded Date/ Time Advance Directives No May 25, 2020 8:06am Chief Complaint and Reason for Visit Chief Complaint Z03.89 Chief Complaint G44.53 Additional Source Comments Care Team (unrecognized sect ion and content) [employer] Bi Consultant Relationship Specialty Start Date End Date Naty Burton MD [address] [place] [address] PCP - General Family Medicine 10/26/22 Microsoft Bi Consultant Relationship Specialty Start Date End Date Naty Burton MD [address] [place] [address] PCP - General Family Medicine 10/26/22 Microsoft Bi Consultant Relationship Specialty Start Date End Date Naty Burton MD [address] [place] [address] PCP - General Family Medicine 10/26/22 Microsoft Bi Consultant Relationship Specialty Start Date End Date Naty Burton MD [address] [place] [address] PCP - General Family Medicine 10/26/22 Microsoft Bi Consultant Relationship Specialty Start Date End Date Naty Burton MD [address] [place] [address] PCP - General Family Medicine 10/26/22 Microsoft Bi Consultant Relationship Specialty Start Date End Date Naty Burton MD [address] [place] [address] PCP - General Family Medicine 10/26/22 Microsoft Bi Consultant Relationship Specialty Start Date End Date Naty Burton MD [address] [place] [address] PCP - General Family Medicine 10/26/22 Microsoft Bi Consultant Relationship Specialty Start Date End Date Naty Burton MD [address] [place] [address] PCP - General Family Medicine 10/26/22 Yadi Simms, RD [address] [facility] [address] [place], [facility] Registered Dietitian Nutrition 11/04/22 Microsoft Bi Consultant Relationship Specialty Start Date End Date Naty Burton MD [address] [place] [address] PCP - General Family Medicine 10/26/22 Yadi Simms, RD [address] [facility] [place] [address] Registered Dietitian Nutrition 11/04/22 Microsoft Bi Consultant Relationship Specialty Start Date End Date Naty Burton MD [address] [place] [address] PCP - General Family Medicine 10/26/22 Yadi Simms, RD [address] [place] [address] Registered Dietitian Nutrition 11/04/22 Microsoft Bi Consultant Relationship Specialty Start Date End Date Naty Burton MD [address] [facility] [place] [address] PCP - General Family Medicine 10/26/22 Yadi Simms, RD [address] [place] [address] Registered Dietitian Nutrition 11/04/22 Microsoft Bi Consultant Relationship Specialty Start Date End Date Naty Burton MD [address] [facility] [place] [address] PCP - General Family Medicine 10/26/22 Yadi Simms, RD [address] [place] [address] Registered Dietitian Nutrition 11/04/22 Chiqui Modi, RN [address] [place] [address] Specialty Surgical Orderly Hematology/Oncology 11/15/22 Elizabeth Borjas MD [address] [facility] [place] [address] Physician Hematology/Oncology 11/15/22 Vanesa Gomez, PA-C [address] [place] [address] Physician Jet Blade Polisher Hematology/Oncology 11/15/22 Microsoft Bi Consultant Relationship Specialty Start Date End Date Naty Burton MD [address] [place] [address] PCP - General Family Medicine 10/26/22 Yadi Simms, APRIL [address] [place] [address] Registered Dietitian Nutrition 11/04/22 Chiqui Modi, RN [address] [place] [address] Specialty Surgical Orderly Hematology/Oncology 11/15/22 Elizabeth Borjas MD [address] [place] [address] Physician Hematology/Oncology 11/15/22 Vanesa Gomez, OLIMPIAC [address] [place] [address] Physician Jet Blade Polisher Hematology/Oncology 11/15/22 Microsoft Bi Consultant Relationship Specialty Start Date End Date Naty Burton MD [address] [place] [address] PCP - General Family Medicine 10/26/[address] [place] [address] Registered Dietitian Nutrition 11/04/22 Chiqui Modi, RN [address] [place] [address] Specialty Surgical Orderly Hematology/Oncology 11/15/22 Elizabeth Borjas MD [address] [place] [address] Physician Hematology/Oncology 11/15/22 Vanesa Gomez PAMaguiC [address] [place] [address] Physician Jet Blade Polisher Hematology/Oncology 11/15/22 Microsoft Bi Consultant Relationship Specialty Start Date End Date Naty Burton MD [address] [place] [address] PCP - General Family Medicine 10/26/22 Yadi Simms, APRIL [address] [place] [address] Registered Dietitian Nutrition 11/04/22 Chiqui Modi, RN [address] [place] [address] Specialty Surgical Orderly Hematology/Oncology 11/15/22 Elizabeth Borjas MD [address] [place] [address] Physician Hematology/Oncology 11/15/22 Vanesa Gomez, PA-C [address] [place] [address] Physician Jet Blade Polisher Hematology/Oncology 11/15/22 July Wiley, ROB Roving Can Tender 11/21/22 Microsoft Bi Consultant Relationship Specialty Start Date End Date Naty Burton MD [address] [place] [address] PCP - General Family Medicine 10/26/[address] [place] [address] Registered Dietitian Nutrition 11/04/22 Chiqui Modi, RN [address] [place] [address] Specialty Surgical Orderly Hematology/Oncology 11/15/22 Elizabeth Borjas MD [address] [place] [address] Physician Hematology/Oncology 11/15/22 Vanesa Gomez, PAMaguiC [address] [place] [address] Physician Jet Blade Polisher Hematology/Oncology 11/15/22 July Wiley, ROB Roving Can Tender 11/21/22 Microsoft Bi Consultant Relationship Specialty Start Date End Date Naty Burton MD [address] [facility] [place] [address] PCP - General Family Medicine 10/26/22 Yadi Simms, APRIL [address] [place] [address] Registered Dietitian Nutrition 11/04/22 Chiqui Modi, RN [address] [place] [address] Specialty Surgical Orderly Hematology/Oncology 11/15/22 Elizabeth Borjas MD [address] [place] [address] Physician Hematology/Oncology 11/15/22 Vanesa Gomez PA-C [address] [place] [address] Physician Jet Blade Polisher Hematology/Oncology 11/15/22 July Wiley LSW Roving Can Tender 11/21/22 Microsoft Bi Consultant Relationship Specialty Start Date End Date aNty Burton MD [address] [facility] [place] [address] PCP - General Family Medicine 10/26/22 Yadi Simms, APRIL [address] [place] [address] Registered Dietitian Nutrition 11/04/22 Chiqui Modi RN [address] [place] [address] Specialty Surgical Orderly Hematology/Oncology 11/15/22 Elizabeth Borjas MD [address] [facility] [place] [address] Physician Hematology/Oncology 11/15/22 Vanesa Gomez PA-C [address] [place] [address] Physician Jet Blade Polisher Hematology/Oncology 11/15/22 July Wiley LSW Roving Can Tender 11/21/22 Microsoft Bi Consultant Relationship Specialty Start Date End Date Naty Burton MD [address] [facility] [place] [address] PCP - General Family Medicine 10/26/22 Yadi Simms, RD [address] [facility] [place] [address] Registered Dietitian Nutrition 11/04/22 Chiqui Modi, RN [address] [facility] [place] [address] Specialty Surgical Orderly Hematology/Oncology 11/15/22 Elizabeth Borjas MD [address] [place] [address] Physician Hematology/Oncology 11/15/22 Vanesa Gomez PA-C [address] [facility] [place] [address] Physician Jet Blade Polisher Hematology/Oncology 11/15/22 July Wiley LSW Roving Can Tender 11/21/22 Microsoft Bi Consultant Relationship Specialty Start Date End Date Naty Burton MD [address] [facility] [place] [address] PCP - General Family Medicine 10/26/22 Yadi Simms, RD [address] [facility] [place] [address] Registered Dietitian Nutrition 11/04/22 Chiqui Modi, RN [address] [facility] [place] [address] Specialty Surgical Orderly Hematology/Oncology 11/15/22 Elizabeth Borjas MD [address] [facility] [place] [address] Physician Hematology/Oncology 11/15/22 Vanesa Gomez PA-C [address] [facility] [place] [address] Physician Jet Blade Polisher Hematology/Oncology 11/15/22 July Wiley [facility] Roving Can Tender 11/21/22 Microsoft Bi Consultant Relationship Specialty Start Date End Date Naty Burton MD [address] [facility] [place] [address] PCP - General Family Medicine 10/26/22 Yadi Simms, APRIL [address] [place] [address] Registered Dietitian Nutrition 11/04/22 Chiqui Modi, RN [address] [place] [address] Specialty Surgical Orderly Hematology/Oncology 11/15/22 Elizabeth Borjas MD [address] [place] [address] Physician Hematology/Oncology 11/15/22 Vanesa Gomez PA-C [address] [place] [address] Physician Jet Blade Polisher Hematology/Oncology 11/15/22 July Wiley [facility] Roving Can Tender 11/21/22 Microsoft Bi Consultant Relationship Specialty Start Date End Date Naty Burton MD [address] [facility] [place] [address] PCP - General Family Medicine 10/26/22 Yadi Simms, APRIL [address] [place] [address] Registered Dietitian Nutrition 11/04/22 Chiqui Modi RN [address] [place] [address] Specialty Surgical Orderly Hematology/Oncology 11/15/22 Elizabeth Borjas MD [address] [facility] [place] [address] Physician Hematology/Oncology 11/15/22 Vanesa Gomez PA-C [address] [facility] [place] [address] Physician Jet Blade Polisher Hematology/Oncology 11/15/22 July Wiley, SCREENING TECH Roving Can Tender 11/21/22 Microsoft Bi Consultant Relationship Specialty Start Date End Date Naty Burton MD [address] [facility] [place] [address] PCP - General Family Medicine 10/26/22 Yadi Simms, APRIL [address] [facility] [place] [address] Registered Dietitian Nutrition 11/04/22 Chiqui Modi, RN [address] [facility] [place] [address] Specialty Surgical Orderly Hematology/Oncology 11/15/22 Elizabeth Borjas MD [address] [place] [address] Physician Hematology/Oncology 11/15/22 Vanesa Gomez PA-C [address] [facility] [address] Physician Jet Blade Polisher Hematology/Oncology 11/15/22 July Wiley, SCREENING TECH Roving Can Tender 11/21/22 Microsoft Bi Consultant Relationship Specialty Start Date End Date Naty Burton MD [address] [place] [address] PCP - General Family Medicine 10/26/22 Yadi Simms, APRIL [address] [facility] [place] [address] Registered Dietitian Nutrition 11/04/22 Chiqui Modi, RN [address] [facility] [place] [address] Specialty Surgical Orderly Hematology/Oncology 11/15/22 Elizabeth Borjas MD [address] [address] Physician Hematology/Oncology 11/15/22 Vanesa Gomez PA-C [address] [facility] [address] Physician Jet Blade Polisher Hematology/Oncology 11/15/22 July Wiley LSW Roving Can Tender 11/21/22 Microsoft Bi Consultant Relationship Specialty Start Date End Date Naty Burton MD [address] [place] [address] PCP - General Family Medicine 10/26/22 Yadi Simms, RD [address] [facility] [place] [address] Registered Dietitian Nutrition 11/04/22 Chiqui Modi, RN [address] [facility] [place] [address] Specialty Surgical Orderly Hematology/Oncology 11/15/22 Elizabeth Borjas MD [address] [facility] [place] [address] Physician Hematology/Oncology 11/15/22 Vanesa Gomez, PA-C [address] [facility] [address] Physician Jet Blade Polisher Hematology/Oncology 11/15/22 July Wiley, SCREENING TECH Roving Can Tender 11/21/22 Microsoft Bi Consultant Relationship Specialty Start Date End Date Naty Burton MD [address] [facility] [place] [address] PCP - General Family Medicine 10/26/22 Yadi Simms, APRIL [address] [facility] [address] Registered Dietitian Nutrition 11/04/22 Chiqui Modi, RN [address] [facility] [address] Specialty Surgical Orderly Hematology/Oncology 11/15/22 Elizabeth Borjas MD [address] [facility] [place] [address] Physician Hematology/Oncology 11/15/22 Vanesa Gomez PA-C [address] [facility] [address] Physician Jet Blade Polisher Hematology/Oncology 11/15/22 July Wiley, SCREENING TECH Roving Can Tender 11/21/22 Microsoft Bi Consultant Relationship Specialty Start Date End Date Naty Burton MD [address] [place] [address] PCP - General Family Medicine 10/26/22 Yadi Simms, RD [address] [facility] [address] Registered Dietitian Nutrition 11/04/22 Chiqui Modi, RN [address] [facility] [address] Specialty Surgical Orderly Hematology/Oncology 11/15/22 Elizabeth Borjas MD [address] [facility] [place] [address] Physician Hematology/Oncology 11/15/22 Vanesa Gomez PA-C [address] [facility] [address] Physician Jet Blade Polisher Hematology/Oncology 11/15/22 July Wiley, [facility] Roving Can Tender 11/21/22 Microsoft Bi Consultant Relationship Specialty Start Date End Date Naty Burton MD [address] [place] [address] PCP - General Family Medicine 10/26/22 Yadi Simms, RD [address] [facility] [address] Registered Dietitian Nutrition 11/04/22 Chiqui Moid RN [address] [facility] [address] Specialty Surgical Orderly Hematology/Oncology 11/15/22 Elizabeth Borjas MD [address] [place] [address] Physician Hematology/Oncology 11/15/22 Vanesa Gomez, OLIMPIAC [address] [facility] [address] Physician Jet Blade Polisher Hematology/Oncology 11/15/22 July Wiley, ROB Roving Can Tender 11/21/22 Microsoft Bi Consultant Relationship Specialty Start Date End Date Naty Burton MD [address] [place] [address] PCP - General Family Medicine 10/26/22 Yadi Simms, APRIL [address] [facility] [address] Registered Dietitian Nutrition 11/04/22 Chiqui Modi, RN [address] [facility] [address] Specialty Surgical Orderly Hematology/Oncology 11/15/22 Elizabeth Borjas MD [address] [facility] [place] [address] Physician Hematology/Oncology 11/15/22 Vanesa Gomez PA-C [address] [facility] [address] Physician Jet Blade Polisher Hematology/Oncology 11/15/22 July Wiley, SCREENING TECH Roving Can Tender 11/21/22 Microsoft Bi Consultant Relationship Specialty Start Date End Date Naty Burton MD [address] [place] [address] PCP - General Family Medicine 10/26/22 Yadi Simms, APRIL [address] [facility] [address] Registered Dietitian Nutrition 11/04/22 Chiqui Modi, RN [address] [facility] [address] Specialty Surgical Orderly Hematology/Oncology 11/15/22 Elizabeth Borjas MD [address] [place] [address] Physician Hematology/Oncology 11/15/22 Vanesa Gomez PA-C [address] [place] [address] Physician Jet Blade Polisher Hematology/Oncology 11/15/22 July Wiley, ROB Roving Can Tender 11/21/22 Microsoft Bi Consultant Relationship Specialty Start Date End Date Naty Burton MD [address] [place] [address] PCP - General Family Medicine 10/26/[address] [place] [address] Registered Dietitian Nutrition 11/04/22 Chiqui Modi, RN [address] [place] [address] Specialty Surgical Orderly Hematology/Oncology 11/15/22 Elizabeth Borjas MD [address] [place] [address] Physician Hematology/Oncology 11/15/22 Vanesa Gomez PA-C [address] [place] [address] Physician Jet Blade Polisher Hematology/Oncology 11/15/22 July Wiley LSW Roving Can Tender 11/21/22 Microsoft Bi Consultant Relationship Specialty Start Date End Date Naty Burton MD [address] [place] [address] PCP - General Family Medicine 10/26/[address] [place] [address] Registered Dietitian Nutrition 11/04/22 Chiqui Modi RN [address] [place] [address] Specialty Surgical Orderly Hematology/Oncology 11/15/22 Elizabeth Borjas MD [address] [facility] [place] [address] Physician Hematology/Oncology 11/15/22 Vanesa Gomez, NICANOR [address] [facility] [address] Physician Jet Blade Polisher Hematology/Oncology 11/15/22 July Wiley, SCREENING TECH Roving Can Tender 11/21/22 Microsoft Bi Consultant Relationship Specialty Start Date End Date Naty Burton MD [address] [place] [address] PCP - General Family Medicine 10/26/22 Yadi Simms, APRIL [address] [facility] [address] Registered Dietitian Nutrition 11/04/22 Chiqui Modi RN [address] [facility] [address] Specialty Surgical Orderly Hematology/Oncology 11/15/22 Elizabeth Borjas MD [address] [address] Physician Hematology/Oncology 11/15/22 Vanesa Gomez PA-C [address] [facility] [address] Physician Jet Blade Polisher Hematology/Oncology 11/15/22 July Wiley LSW Roving Can Tender 11/21/22 Microsoft Bi Consultant Relationship Specialty Start Date End Date Naty Burton MD [address] [facility] [place] [address] PCP - General Family Medicine 10/26/22 Yadi Simms, APRIL [address] [facility] [address] Registered Dietitian Nutrition 11/04/22 Chiqui Modi RN [address] [facility] [place] [address] Specialty Surgical Orderly Hematology/Oncology 11/15/22 Elizabeth Borjas MD [address] [place] [address] Physician Hematology/Oncology 11/15/22 Vanesa Gomez, PAMaguiC [address] [facility] [address] Physician Jet Blade Polisher Hematology/Oncology 11/15/22 July Wiley, SCREENING TECH Roving Can Tender 11/21/22 Microsoft Bi Consultant Relationship Specialty Start Date End Date Naty Burton MD PCP - General Family Medicine 10/26/22 Yadi Simms, RD [address] [facility] [address] Registered Dietitian Nutrition 11/04/22 Chiqui Modi, RN [address] [place] [address] Specialty Surgical Orderly Hematology/Oncology 11/15/22 Elizabeth Borjas MD [address] [facility] [place] [address] Physician Hematology/Oncology 11/15/22 Vanesa Gomez, PAMaguiC [address] [facility] [address] Physician Jet Blade Polisher Hematology/Oncology 11/15/22 July Wiley, SCREENING TECH Roving Can Tender 11/21/22 Microsoft Bi Consultant Relationship Specialty Start Date End Date Naty Burton MD PCP - General Family Medicine 10/26/[address] [facility] [place] [address] Registered Dietitian Nutrition 11/04/22 Chiqui Modi, RN [address] [facility] [address] [place], [place] [id number] Specialty Surgical Orderly Hematology/Oncology 11/15/22 Elizabeth Borjas MD [address] [facility] [place] [address] Physician Hematology/Oncology 11/15/22 Vanesa Gomez PA-C [address] [facility] [place] [address] Physician Jet Blade Polisher Hematology/Oncology 11/15/22 July Wiley, SCREENING TECH Roving Can Tender 11/21/22 Microsoft Bi Consultant Relationship Specialty Start Date End Date Naty Burton MD PCP - General Family Medicine 10/26/22 Yadi Simms, APRIL [address] [facility] [place] [address] Registered Dietitian Nutrition 11/04/22 Chiqui Modi, RN [address] [place] [address] Specialty Surgical Orderly Hematology/Oncology 11/15/22 Elizabeth Borjas MD [address] [facility] [place] [place] [address] Physician Hematology/Oncology 11/15/22 Vanesa Gomez PA-C [address] [facility] [place] [address] Physician Jet Blade Polisher Hematology/Oncology 11/15/22 July Wiley, SCREENING TECH Roving Can Tender 11/21/22 Microsoft Bi Consultant Relationship Specialty Start Date End Date Naty Burton MD PCP - General Family Medicine 10/26/22 Yadi Simms, APRIL [address] [facility] [place] [address] Registered Dietitian Nutrition 11/04/22 Chiqui Modi, RN [address] [place] [address] Specialty Surgical Orderly Hematology/Oncology 11/15/22 Elizabeth Borjas MD [address] [facility] [place] [address] Physician Hematology/Oncology 11/15/22 Vanesa Gomez PA-C [address] [facility] [place] [address] Physician Jet Blade Polisher Hematology/Oncology 11/15/22 July Wiley, SCREENING TECH Roving Can Tender 11/21/22 Microsoft Bi Consultant Relationship Specialty Start Date End Date Naty Burton MD PCP - General Family Medicine 10/26/22 Yadi Simms, APRIL [address] [facility] [place] [address] Registered Dietitian Nutrition 11/04/22 Chiqui Modi, RN [address] [place] [address] Specialty Surgical Orderly Hematology/Oncology 11/15/22 Elizabeth Borjas MD [address] [facility] [place] [address] Physician Hematology/Oncology 11/15/22 Vanesa Gomez PA-C [address] [facility] [place] [address] Physician Jet Blade Polisher Hematology/Oncology 11/15/22 July Wiley, SCREENING TECH Roving Can Tender 11/21/22 Microsoft Bi Consultant Relationship Specialty Start Date End Date Naty Burton MD PCP - General Family Medicine 10/26/22 Yadi Simms, RD [address] [facility] [place] [address] Registered Dietitian Nutrition 11/04/22 Chiqui Modi RN [address] [place] [address] Specialty Surgical Orderly Hematology/Oncology 11/15/22 Elizabeth Borjas MD [address] [address] Physician Hematology/Oncology 11/15/22 Vanesa Gomez, PA-C [address] [facility] [place] [address] Physician Jet Blade Polisher Hematology/Oncology 11/15/22 July Wiley, [facility] Roving Can Tender 11/21/22 Microsoft Bi Consultant Relationship Specialty Start Date End Date Naty Burton MD PCP - General Family Medicine 10/26/22 Yadi Simms, RD [address] [place] [address] Registered Dietitian Nutrition 11/04/22 Chiqui Modi, RN [address] [facility] [place] [address] Specialty Surgical Orderly Hematology/Oncology 11/15/22 Elizabeth Borjas MD [address] [place] [address] Physician Hematology/Oncology 11/15/22 Vanesa Gomez, PA-C [address] [facility] [place] [address] Physician Jet Blade Polisher Hematology/Oncology 11/15/22 July Wiley, [facility] Roving Can Tender 11/21/22 Microsoft Bi Consultant Relationship Specialty Start Date End Date Naty Burton MD PCP - General Family Medicine 10/26/22 Yadi Simms, APRIL [address] [facility] [place] [address] Registered Dietitian Nutrition 11/04/22 Chiqui Modi, RN [address] [facility] [place] [address] Specialty Surgical Orderly Hematology/Oncology 11/15/22 Elizabeth Borjas MD [address] [place] [address] Physician Hematology/Oncology 11/15/22 Vanesa Gomez PA-C [address] [place] [address] Physician Jet Blade Polisher Hematology/Oncology 11/15/22 July Wiley, [facility] Roving Can Tender 11/21/22 Microsoft Bi Consultant Relationship Specialty Start Date End Date Naty Burton MD PCP - General Family Medicine 10/26/22 Yadi Simms, APRIL [address] [place] [address] Registered Dietitian Nutrition 11/04/22 Chiqui Modi, RN [address] [place] [address] Specialty Surgical Orderly Hematology/Oncology 11/15/22 Elizabeth Borjas MD [address] [place] [address] Physician Hematology/Oncology 11/15/22 Vanesa Gomez PA-C [address] [place] [address] Physician Jet Blade Polisher Hematology/Oncology 11/15/22 July Wiley, [facility] Roving Can Tender 11/21/22 Microsoft Bi Consultant Relationship Specialty Start Date End Date Naty Burton MD PCP - General Family Medicine 10/26/22 Yadi Simms, APRIL [address] [place] [address] Registered Dietitian Nutrition 11/04/22 Chiqui Modi, RN [address] [place] [address] Specialty Surgical Orderly Hematology/Oncology 11/15/22 Elizbaeth Borjas MD [address] [facility] [place] [address] Physician Hematology/Oncology 11/15/22 Vanesa Gomez PA-C [address] [facility] [place] [address] Physician Jet Blade Polisher Hematology/Oncology 11/15/22 July Wiley, ROB Roving Can Tender 11/21/22 Microsoft Bi Consultant Relationship Specialty Start Date End Date Naty Burton MD PCP - General Family Medicine 10/26/22 Yadi Simms, APRIL [address] [facility] [place] [address] Registered Dietitian Nutrition 11/04/22 Chiqui Modi, RN [address] [facility] [place] [address] Specialty Surgical Orderly Hematology/Oncology 11/15/22 Elizabeth Borjas MD [address] [facility] [address] [place] [address] Physician Hematology/Oncology 11/15/22 Vanesa Gomez PA-C [address] [facility] [place] [address] Physician Jet Blade Polisher Hematology/Oncology 11/15/22 July Wiley, SCREENING TECH Roving Can Tender 11/21/22 Microsoft Bi Consultant Relationship Specialty Start Date End Date Naty Burton MD PCP - General Family Medicine 10/26/[address] [facility] [place] [address] Registered Dietitian Nutrition 11/04/22 Chiqui Modi, RN [address] [facility] [place] [address] Specialty Surgical Orderly Hematology/Oncology 11/15/22 Elizabeth Borjas MD [address] [place] [address] Physician Hematology/Oncology 11/15/22 Vanesa Gomez PA-C [address] [facility] [place] [address] Physician Jet Blade Polisher Hematology/Oncology 11/15/22 July Wiley, ROB Roving Can Tender 11/21/22 Microsoft Bi Consultant Relationship Specialty Start Date End Date Naty Burton MD PCP - General Family Medicine 10/26/22 Yadi Simms, APRIL [address] [place] [address] Registered Dietitian Nutrition 11/04/22 Chiqui Modi, RN [address] [place] [address] Specialty Surgical Orderly Hematology/Oncology 11/15/22 Elizabeth Borjas MD [address] [place] [address] Physician Hematology/Oncology 11/15/22 Vanesa Gomez, PA-C [address] [place] [address] Physician Jet Blade Polisher Hematology/Oncology 11/15/22 July Wiley, SCREENING TECH Roving Can Tender 11/21/22 Microsoft Bi Consultant Relationship Specialty Start Date End Date Naty Burton MD PCP - General Family Medicine 10/26/[address] [place] [address] Registered Dietitian Nutrition 11/04/22 Chiqui Modi, RN [address] [place] [address] Specialty Surgical Orderly Hematology/Oncology 11/15/22 Elizabeth Borjas MD [address] [place] [address] Physician Hematology/Oncology 11/15/22 Vanesa Gomez PAMaguiC [address] [place] [address] Physician Jet Blade Polisher Hematology/Oncology 11/15/22 July Wiley, SCREENING TECH Roving Can Tender 11/21/22 Microsoft Bi Consultant Relationship Specialty Start Date End Date Naty Burton MD PCP - General Family Medicine 10/26/22 Yadi Simms, APRIL [address] [facility] [address] [place], [place] [id number] Registered Dietitian Nutrition 11/04/22 Chiqui Modi, RN [address] [facility] [place] [address] Specialty Surgical Orderly Hematology/Oncology 11/15/22 Elizabeth Borjas MD [address] [facility] [place] [address] Physician Hematology/Oncology 11/15/22 Vanesa Gomez, PA-C [address] [facility] [place] [address] Physician Jet Blade Polisher Hematology/Oncology 11/15/22 July Wiley, SCREENING TECH Roving Can Tender 11/21/22 Microsoft Bi Consultant Relationship Specialty Start Date End Date Naty Burton MD PCP - General Family Medicine 10/26/22 Yadi Simms, APRIL [address] [facility] [place] [address] Registered Dietitian Nutrition 11/04/22 Chiqui Modi RN [address] [facility] [address] Specialty Surgical Orderly Hematology/Oncology 11/15/22 Elizabeth Borjas MD [address] [place] [address] Physician Hematology/Oncology 11/15/22 Vanesa Gomez, PA-C [address] [facility] [address] Physician Jet Blade Polisher Hematology/Oncology 11/15/22 July Wiley, SCREENING TECH Roving Can Tender 11/21/22 Microsoft Bi Consultant Relationship Specialty Start Date End Date Naty Burton MD PCP - General Family Medicine 10/26/22 Yadi Simms, APRIL [address] [facility] [address] [place], [place] [address] Registered Dietitian Nutrition 11/04/22 Chiqui Modi, RN [address] [facility] [address] [address] [place], [place] [address]3970 Specialty Surgical Orderly Hematology/Oncology 11/15/22 Elizabeth Borjas MD [address] [facility] [place] [address] Physician Hematology/Oncology 11/15/22 Vanesa Gomez, PA-C [address] [place] [address] Physician Jet Blade Polisher Hematology/Oncology 11/15/22 July Wiley, [facility] Roving Can Tender 11/21/22 Microsoft Bi Consultant Relationship Specialty Start Date End Date Naty Burton MD PCP - General Family Medicine 10/26/22 Yadi Simms, APRIL [address] [place] [address] Registered Dietitian Nutrition 11/04/22 Chiqui Modi RN [address] [place] [address] Specialty Surgical Orderly Hematology/Oncology 11/15/22 Elizabeth Borjas MD [address] [place] [address] Physician Hematology/Oncology 11/15/22 Vanesa Gomez, PA-C [address] [place] [address] Physician Jet Blade Polisher Hematology/Oncology 11/15/22 July Wiley, ROB Roving Can Tender 11/21/22 Microsoft Bi Consultant Relationship Specialty Start Date End Date Naty Burton MD PCP - General Family Medicine 10/26/22 Yadi Simms, RD [address] [facility] [address] Registered Dietitian Nutrition 11/04/22 Chiqui Modi RN [address] [facility] [place] [address] Specialty Surgical Orderly Hematology/Oncology 11/15/22 Elizabeth Borjas MD [address] [facility] [place] [address] Physician Hematology/Oncology 11/15/22 Vanesa Gomez, PA-C [address] [facility] [address] Physician Jet Blade Polisher Hematology/Oncology 11/15/22 July Wiley, SCREENING TECH Roving Can Tender 11/21/22 Microsoft Bi Consultant Relationship Specialty Start Date End Date Naty Burton MD PCP - General Family Medicine 10/26/22 Yadi Simms, APRIL [address] [facility] [place] [address] Registered Dietitian Nutrition 11/04/22 Chiqui Modi RN [address] [facility] [place] [address] Specialty Surgical Orderly Hematology/Oncology 11/15/22 Elizabeth Borjas MD [address] [facility] [place] [address] Physician Hematology/Oncology 11/15/22 Vanesa Gomez, PA-C [address] [place] [address] Physician Jet Blade Polisher Hematology/Oncology 11/15/22 July Wiley [facility] Roving Can Tender 11/21/22 Microsoft Bi Consultant Relationship Specialty Start Date End Date Naty Burton MD PCP - General Family Medicine 10/26/[address] [facility] [address] [address] [place], [place] [id number] Registered Dietitian Nutrition 11/04/22 Chiqui Modi RN [address] [place], [place] [address]185370 Specialty Surgical Orderly Hematology/Oncology 11/15/22 Elizabeth Borjas MD [address] [facility] [place] [address] Physician Hematology/Oncology 11/15/22 Vanesa Gomez, PAMaguiC [address] [place] [address] Physician Jet Blade Polisher Hematology/Oncology 11/15/22 July Wiley [facility] Roving Can Tender 11/21/22 Microsoft Bi Consultant Relationship Specialty Start Date End Date Naty Burton MD PCP - General Family Medicine 10/26/[address] [place] [address] [place] [address] Registered Dietitian Nutrition 11/04/22 Chiqui Modi RN [address] [place] [address] Specialty Surgical Orderly Hematology/Oncology 11/15/22 Elizabeth Borjas MD [address] [place] [address] [place] [address] Physician Hematology/Oncology 11/15/22 Vanesa Gomez, PAAutumn [address] [place] [address] [place] [address] Physician Jet Blade Polisher Hematology/Oncology 11/15/22 July Wiley LSW Roving Can Tender 11/21/22 Microsoft Bi Consultant Relationship Specialty Start Date End Date Naty Burton MD PCP - General Family Medicine 10/26/[address] [facility] [address] Registered Dietitian Nutrition 11/04/22 Chiqui Modi, RN [address] [facility] [place] [address] Specialty Surgical Orderly Hematology/Oncology 11/15/22 Elizabeth Borjas MD [address] [facility] [place] [address] Physician Hematology/Oncology 11/15/22 Vanesa Gomez PA-C [address] [facility] [address] Physician Jet Blade Polisher Hematology/Oncology 11/15/22 July Wiley LSW Roving Can Tender 11/21/22 Team Status: Active Member Role Status Alin Burton MD Primary Care Provider Active Team Status: Inactive Member Role Status Alin Esposito MD Attending Provider Active Naty Burton MD Primary Care Provider Active Microsoft Bi Consultant Relationship Specialty Start Date End Date Naty Burton MD PCP - General Family Medicine 10/26/[address] [facility] [place] [address] Registered Dietitian Nutrition 11/04/22 Chiqui Modi, RN [address] [facility] [place] [address] Specialty Surgical Orderly Hematology/Oncology 11/15/22 Elizabeth Borjas MD [address] [place] [address] Physician Hematology/Oncology 11/15/22 Vanesa Gomez PA-C [address] [place] [address] Physician Jet Blade Polisher Hematology/Oncology 11/15/22 July Wiley LSW Roving Can Tender 11/21/22 Microsoft Bi Consultant Relationship Specialty Start Date End Date Naty Burton MD PCP - General Family Medicine 10/26/[address] [place] [address] Registered Dietitian Nutrition 11/04/22 Chiqui Modi RN [address] [facility] [place] [address] Specialty Surgical Orderly Hematology/Oncology 11/15/22 Elizabeth Borjas MD [address] [place] [address] Physician Hematology/Oncology 11/15/22 Vanesa Gomez PA-C [address] [place] [address] Physician Jet Blade Polisher Hematology/Oncology 11/15/22 July Wiley LSW Roving Can Tender 11/21/22 Microsoft Bi Consultant Relationship Specialty Start Date End Date Naty Burton MD PCP - General Family Medicine 10/26/[address] [place] [address] Registered Dietitian Nutrition 11/04/22 Chiqui Modi RN [address] [place] [address] Specialty Surgical Orderly Hematology/Oncology 11/15/22 Elizabeth Borjas MD [address] [place] [address] Physician Hematology/Oncology 11/15/22 Vanesa Gomez PA-C [address] [place] [address] Physician Jet Blade Polisher Hematology/Oncology 11/15/22 July Wiley LSW Roving Can Tender 11/21/22 Microsoft Bi Consultant Relationship Specialty Start Date End Date Naty Burton MD PCP - General Family Medicine 10/26/[address] [place] [address] Registered Dietitian Nutrition 11/04/22 Chiqui Modi RN [address] [place] [address] Specialty Surgical Orderly Hematology/Oncology 11/15/22 Elizabeth Borjas MD [address] [place] [address] Physician Hematology/Oncology 11/15/22 Vanesa Gomez PA-C [address] [place] [address] [place] [address] Physician Jet Blade Polisher Hematology/Oncology 11/15/22 July Wiley LSW Roving Can Tender 11/21/22 Microsoft Bi Consultant Relationship Specialty Start Date End Date Naty Burton MD PCP - General Family Medicine 10/26/[address] [place] [address] Registered Dietitian Nutrition 11/04/22 Chiqui Modi RN [address] [facility] [place] [address] Specialty Surgical Orderly Hematology/Oncology 11/15/22 Elizabeth Borjas MD [address] [facility] [place] [address] Physician Hematology/Oncology 11/15/22 Vanesa Gomez PA-C [address] [place] [address] Physician Jet Blade Polisher Hematology/Oncology 11/15/22 July Wiley, SCREENING TECH Roving Can Tender 11/21/22 Microsoft Bi Consultant Relationship Specialty Start Date End Date Naty Burton MD PCP - General Family Medicine 10/26/[address] [place] [address] Registered Dietitian Nutrition 11/04/22 Chiqui Modi RN [address] [place] [address] Specialty Surgical Orderly Hematology/Oncology 11/15/22 Elizabeth Borjas MD [address] [place], [place] [address]ry [facility] [place] [address] Physician Hematology/Oncology 11/15/22 Vanesa Gomez PA-C [address] [place] [address] Physician Jet Blade Polisher Hematology/Oncology 11/15/22 July Wiley, SCREENING TECH Roving Can Tender 11/21/22 Microsoft Bi Consultant Relationship Specialty Start Date End Date Naty Burton MD PCP - General Family Medicine 10/26/[address] [place] [address] Registered Dietitian Nutrition 11/04/22 Chiqui Modi, ONELIA [address] [place] [address] Specialty Surgical Orderly Hematology/Oncology 11/15/22 Elizabeth Borjas MD [address] [place] [address] Physician Hematology/Oncology 11/15/22 Vanesa Gomez PA-C [address] [place] [address] Physician Jet Blade Polisher Hematology/Oncology 11/15/22 July Wiley LSW Roving Can Tender 11/21/22 Microsoft Bi Consultant Relationship Specialty Start Date End Date Naty Burton MD PCP - General Family Medicine 10/26/[address] [facility] [place] [address] Registered Dietitian Nutrition 11/04/22 Chiqui Modi RN [address] [place] [address] Specialty Surgical Orderly Hematology/Oncology 11/15/22 Elizabeth Borjas MD [address] [place] [address] Physician Hematology/Oncology 11/15/22 Vanesa Gomez PA-C [address] [place] [address] Physician Jet Blade Polisher Hematology/Oncology 11/15/22 July Wiley LSW Roving Can Tender 11/21/22 Microsoft Bi Consultant Relationship Specialty Start Date End Date Naty Burton MD PCP - General Family Medicine 10/26/[address] [facility] [place] [address] Registered Dietitian Nutrition 11/04/22 Chiqui Modi, RN [address] [facility] [place] [address] Specialty Surgical Orderly Hematology/Oncology 11/15/22 Elizabeth Borjas MD [address] [facility] [place] [address] Physician Hematology/Oncology 11/15/22 Vanesa Gomez PA-C [address] [place], [place] [address]RY [facility] [place] [address] Physician Jet Blade Polisher Hematology/Oncology 11/15/22 July Wiley LSW Roving Can Tender 11/21/22 Microsoft Bi Consultant Relationship Specialty Start Date End Date Naty Burton MD PCP - General Family Medicine 10/26/[address] [facility] [place] [address] Registered Dietitian Nutrition 11/04/22 Chiqui Modi, RN [address] [facility] [place] [address] Specialty Surgical Orderly Hematology/Oncology 11/15/22 Elizabeth Borjas MD [address] [facility] [place] [address] Physician Hematology/Oncology 11/15/22 Vanesa Gomez PA-C [address] [place] [address] [place] [address] Physician Jet Blade Polisher Hematology/Oncology 11/15/22 July Wiley LSW Roving Can Tender 11/21/22 Microsoft Bi Consultant Relationship Specialty Start Date End Date Naty Burton MD [address] [facility] [place] [address] PCP - General Family Medicine 03/09/23 Microsoft Bi Consultant Relationship Specialty Start Date End Date Naty Burton MD [address] [facility] [place] [address] PCP - General Family Medicine 03/09/23 Microsoft Bi Consultant Relationship Specialty Start Date End Date Naty Burton MD PCP - General Family Medicine 10/26/[address] [place] [address] [place] [address] Registered Dietitian Nutrition 11/04/22 Chiqui Modi, RN [address] [place] [address] Specialty Surgical Orderly Hematology/Oncology 11/15/22 Elizabeth Borjas MD [address] [place] [address] [place], [facility] Physician Hematology/Oncology 11/15/22 Vanesa Gomez PA-C [address] [place] [address] [place] [address] Physician Jet Blade Polisher Hematology/Oncology 11/15/22 July Wiley LSW Roving Can Tender 11/21/22 Microsoft Bi Consultant Relationship Specialty Start Date End Date Naty Burton MD PCP - General Family Medicine 10/26/[address] [facility] [place] [address] Registered Dietitian Nutrition 11/04/22 Chiqui Modi, RN [address] [place] [address] Specialty Surgical Orderly Hematology/Oncology 11/15/22 Elizabeth Borjas MD [address] [place] [address] Physician Hematology/Oncology 11/15/22 Vanesa Gomez PA-C [address] [place] [address] Physician Jet Blade Polisher Hematology/Oncology 11/15/22 July Wiley LSW Roving Can Tender 11/21/22 Microsoft Bi Consultant Relationship Specialty Start Date End Date Naty Burton MD PCP - General Family Medicine 10/26/[address] [facility] [place] [address] Registered Dietitian Nutrition 11/04/22 Chiqui Modi RN [address] [facility] [place] [address] Specialty Surgical Orderly Hematology/Oncology 11/15/22 Elizabeth Borjas MD [address] [place] [address] Physician Hematology/Oncology 11/15/22 Vanesa Gomez PA-C [address] [facility] [place] [address] Physician Jet Blade Polisher Hematology/Oncology 11/15/22 July Wiley LSW Roving Can Tender 11/21/22 Microsoft Bi Consultant Relationship Specialty Start Date End Date Naty Burton MD PCP - General Family Medicine 10/26/[address] [facility] [place] [address] Registered Dietitian Nutrition 11/04/22 Chiqui Modi, RN [address] [facility] [place] [address] Specialty Surgical Orderly Hematology/Oncology 11/15/22 Elizabeth Borjas MD [address] [facility] [place] [address] Physician Hematology/Oncology 11/15/22 Vanesa Gomez PA-C [address] [facility] [place] [address] Physician Jet Blade Polisher Hematology/Oncology 11/15/22 July Wiley LSW Roving Can Tender 11/21/22 Microsoft Bi Consultant Relationship Specialty Start Date End Date Naty Burton MD PCP - General Family Medicine 10/26/[address] [facility] [place] [address] Registered Dietitian Nutrition 11/04/22 Chiqui Modi RN [address] [facility] [place] [address] Specialty Surgical Orderly Hematology/Oncology 11/15/22 Elizabeth Borjas MD [address] [facility] [place] [address] Physician Hematology/Oncology 11/15/22 Vanesa Gomez PA-C [address] [place] [address] [place] [address] Physician Jet Blade Polisher Hematology/Oncology 11/15/22 July Wiley, SCREENING TECH Roving Can Tender 11/21/22 Microsoft Bi Consultant Relationship Specialty Start Date End Date Naty Burton MD PCP - General Family Medicine 10/26/[address] [place] [address] Registered Dietitian Nutrition 11/04/22 Chiqui Modi RN [address] [place] [address] Specialty Surgical Orderly Hematology/Oncology 11/15/22 Elizabeth Borjas MD [address] [place] [address] [place] [address] Physician Hematology/Oncology 11/15/22 Vanesa Gomez PA-C [address] [place] [address] [place] [address] Physician Jet Blade Polisher Hematology/Oncology 11/15/22 July Wiley LSW Roving Can Tender 11/21/22 Team Status: Inactive Member Role Status Dates Naty Burton MD Primary Care Provider Active Start: April 12, 2024 End: April 12, 2024 Vanesa Gomez PA-C Attending Provider Active Start: April 12, 2024 End: April 12, 2024 Microsoft Bi Consultant Relationship Specialty Start Date End Date Naty Burton MD PCP - General Family Medicine 10/26/[address] [place] [address] Registered Dietitian Nutrition 11/04/22 Chiqui Modi RN [address] [place] [address] Specialty Surgical Orderly Hematology/Oncology 11/15/22 Elizabeth Borjas MD [address] [facility] [place] [address] Physician Hematology/Oncology 11/15/22 Vanesa Gomez PA-C [address] [place] [address] Physician Jet Blade Polisher Hematology/Oncology 11/15/22 July Wiley, SCREENING TECH Roving Can Tender 11/21/22 Microsoft Bi Consultant Relationship Specialty Start Date End Date Naty Burton MD PCP - General Family Medicine 10/26/[address] [place] [address] Registered Dietitian Nutrition 11/04/22 Chiqui Modi RN [address] [facility] [place] [address] Specialty Surgical Orderly Hematology/Oncology 11/15/22 Elizabeth Borjas MD [address] [facility] [place] [address] Physician Hematology/Oncology 11/15/22 Vanesa Gomez PA-C [address] [place] [address] Physician Jet Blade Polisher Hematology/Oncology 11/15/22 July Wiley, ROB Roving Can Tender 11/21/22 Microsoft Bi Consultant Relationship Specialty Start Date End Date Naty Burton MD PCP - General Family Medicine 10/26/[address] [place] [address] Registered Dietitian Nutrition 11/04/22 Chiqui Modi RN [address] [place] [address] Specialty Surgical Orderly Hematology/Oncology 11/15/22 Elizabeth Borjas MD [address] [facility] [place] [address] Physician Hematology/Oncology 11/15/22 Vanesa Gomez PA-C [address] [place] [address] Physician Jet Blade Polisher Hematology/Oncology 11/15/22 July Wiley LSW Roving Can Tender 11/21/22 Microsoft Bi Consultant Relationship Specialty Start Date End Date Naty Burton MD PCP - General Family Medicine 10/26/[address] [place] [address] Registered Dietitian Nutrition 11/04/22 Chiqui Modi RN [address] [place] [address] Specialty Surgical Orderly Hematology/Oncology 11/15/22 Elizabeth Borjas MD [address] [place] [address] [place] [address] Physician Hematology/Oncology 11/15/22 Vanesa Gomez PA-C [address] [place] [address] Physician Jet Blade Polisher Hematology/Oncology 11/15/22 July Wiley LSW Roving Can Tender 11/21/22 Microsoft Bi Consultant Relationship Specialty Start Date End Date Naty Burton MD PCP - General Family Medicine 10/26/[address] [facility] [address] Registered Dietitian Nutrition 11/04/22 Chiqui Modi RN [address] [facility] [address] Specialty Surgical Orderly Hematology/Oncology 11/15/22 Elizabeth Borjas MD [address] [place] [address] Physician Hematology/Oncology 11/15/22 Vanesa Gomez, PA-C [address] [place] [address] Physician Jet Blade Polisher Hematology/Oncology 11/15/22 July Wiley LSW Roving Can Tender 11/21/22 Microsoft Bi Consultant Relationship Specialty Start Date End Date Naty Burton MD PCP - General Family Medicine 10/26/[address] [place] [address] Registered Dietitian Nutrition 11/04/22 Chiqui Modi RN [address] [facility] [address] Specialty Surgical Orderly Hematology/Oncology 11/15/22 Elizabeth Borjas MD [address] [place] [address] Physician Hematology/Oncology 11/15/22 Vanesa Gomez, PA-C [address] [facility] [place] [address] Physician Jet Blade Polisher Hematology/Oncology 11/15/22 July Wiley, ROB Roving Can Tender 11/21/22 Microsoft Bi Consultant Relationship Specialty Start Date End Date Naty Burton MD PCP - General Family Medicine 10/26/[address] [place] [address] Registered Dietitian Nutrition 11/04/22 Chiqui Modi, RN [address] [facility] [place] [address] Specialty Surgical Orderly Hematology/Oncology 11/15/22 Elizabeth Borjas MD [address] [facility] [place] [address] Physician Hematology/Oncology 11/15/22 Vanesa Gomez PA-C [address] [place] [address] [place] [address] Physician Jet Blade Polisher Hematology/Oncology 11/15/22 July Wiley LSW Roving Can Tender 11/21/22 Microsoft Bi Consultant Relationship Specialty Start Date End Date Naty Burton MD PCP - General Family Medicine 10/26/[address] [place] [address] Registered Dietitian Nutrition 11/04/22 Chiqui Modi, RN [address] [facility] [place] [address] Specialty Surgical Orderly Hematology/Oncology 11/15/22 Elizabeth Borjas MD [address] [facility] [place] [address] Physician Hematology/Oncology 11/15/22 Vanesa Gomez PA-C [address] [place] [address] [place] [address] Physician Jet Blade Polisher Hematology/Oncology 11/15/22 July Wiley LSW Roving Can Tender 11/21/22 Microsoft Bi Consultant Relationship Specialty Start Date End Date Naty Burton MD PCP - General Family Medicine 10/26/[address] [place] [address] [place] [address] Registered Dietitian Nutrition 11/04/22 Chiqui Modi RN [address] [place] [address] [place] [address] Specialty Surgical Orderly Hematology/Oncology 11/15/22 Elizabeth Borjas MD [address] [place] [address] [place] [address] Physician Hematology/Oncology 11/15/22 Vanesa Gomez PA-C [address] [place] [address] [place] [address] Physician Jet Blade Polisher Hematology/Oncology 11/15/22 July Wiley LSW Roving Can Tender 11/21/22 Source Comments (unrecognize d section and content) In the event this informatio n is protected by the Federal Confidentiality of Alcohol and Drug Abuse Patient Records regulations: The Federal rules restrict any use of the information to criminally investigate or prosecute any alcohol or drug abuse patient.[facility] the event this information is protected by the Federal Confidentiality of Alcohol and Drug Abuse Patient Records regulations: The Federal rules restrict any use of the information to criminally investigate or prosecute any alcohol or drug abuse patient.[facility] the event this information is protected by the Federal Confidentiality of Alcohol and Drug Abuse Patient Records regulations: The Federal rules restrict any use of the information to criminally investigate or prosecute any alcohol or drug abuse patient.[facility] the event this information is protected by the Federal Confidentiality of Alcohol and Drug Abuse Patient Records regulations: The Federal rules restrict any use of the information to criminally investigate or prosecute any alcohol or drug abuse patient.[facility] the event this information is protected by the Federal Confidentiality of Alcohol and Drug Abuse Patient Records regulations: The Federal rules restrict any use of the information to criminally investigate or prosecute any alcohol or drug abuse patient.[facility]In the event this information is protected by the Federal Confidentiality of Alcohol and Drug Abuse Patient Records regulations: The Federal rules restrict any use of the information to criminally investigate or prosecute any alcohol or drug abuse patient.[facility]In the event this information is protected by the Federal Confidentiality of Alcohol and Drug Abuse Patient Records regulations: The Federal rules restrict any use of the information to criminally investigate or prosecute any alcohol or drug abuse patient.[facility]In the event this information is protected by the Federal Confidentiality of Alcohol and Drug Abuse Patient Records regulations: The Federal rules restrict any use of the information to criminally investigate or prosecute any alcohol or drug abuse patient.[facility]In the event this information is protected by the Federal Confidentiality of Alcohol and Drug Abuse Patient Records regulations: The Federal rules restrict any use of the information to criminally investigate or prosecute any alcohol or drug abuse patient.[facility]In the event this information is protected by the Federal Confidentiality of Alcohol and Drug Abuse Patient Records regulations: The Federal rules restrict any use of the information to criminally investigate or prosecute any alcohol or drug abuse patient.[facility]In the event this information is protected by the Federal Confidentiality of Alcohol and Drug Abuse Patient Records regulations: The Federal rules restrict any use of the information to criminally investigate or prosecute any alcohol or drug abuse patient.[facility]In the event this information is protected by the Federal Confidentiality of Alcohol and Drug Abuse Patient Records regulations: The Federal rules restrict any use of the information to criminally investigate or prosecute any alcohol or drug abuse patient.[facility]In the event this information is protected by the Federal Confidentiality of Alcohol and Drug Abuse Patient Records regulations: The Federal rules restrict any use of the information to criminally investigate or prosecute any alcohol or drug abuse patient.[facility]In the event this information is protected by the Federal Confidentiality of Alcohol and Drug Abuse Patient Records regulations: The Federal rules restrict any use of the information to criminally investigate or prosecute any alcohol or drug abuse patient.[facility]In the event this information is protected by the Federal Confidentiality of Alcohol and Drug Abuse Patient Records regulations: The Federal rules restrict any use of the information to criminally investigate or prosecute any alcohol or drug abuse patient.[facility] HospitalIn the event this information is protected by the Federal Confidentiality of Alcohol and Drug Abuse Patient Records regulations: The Federal rules restrict any use of the information to criminally investigate or prosecute any alcohol or drug abuse patient.[facility]In the event this information is protected by the Federal Confidentiality of Alcohol and Drug Abuse Patient Records regulations: The Federal rules restrict any use of the information to criminally investigate or prosecute any alcohol or drug abuse patient.[facility]In the event this information is protected by the Federal Confidentiality of Alcohol and Drug Abuse Patient Records regulations: The Federal rules restrict any use of the information to criminally investigate or prosecute any alcohol or drug abuse patient.[facility] HospitalIn the event this information is protected by the Federal Confidentiality of Alcohol and Drug Abuse Patient Records regulations: The Federal rules restrict any use of the information to criminally investigate or prosecute any alcohol or drug abuse patient.[facility] HospitalIn the event this information is protected by the Federal Confidentiality of Alcohol and Drug Abuse Patient Records regulations: The Federal rules restrict any use of the information to criminally investigate or prosecute any alcohol or drug abuse patient.[facility] HospitalIn the event this information is protected by the Federal Confidentiality of Alcohol and Drug Abuse Patient Records regulations: The Federal rules restrict any use of the information to criminally investigate or prosecute any alcohol or drug abuse patient.[facility] HospitalIn the event this information is protected by the Federal Confidentiality of Alcohol and Drug Abuse Patient Records regulations: The Federal rules restrict any use of the information to criminally investigate or prosecute any alcohol or drug abuse patient.[facility] HospitalIn the event this information is protected by the Federal Confidentiality of Alcohol and Drug Abuse Patient Records regulations: The Federal rules restrict any use of the information to criminally investigate or prosecute any alcohol or drug abuse patient.[facility]In the event this information is protected by the Federal Confidentiality of Alcohol and Drug Abuse Patient Records regulations: The Federal rules restrict any use of the information to criminally investigate or prosecute any alcohol or drug abuse patient.[facility]In the event this information is protected by the Federal Confidentiality of Alcohol and Drug Abuse Patient Records regulations: The Federal rules restrict any use of the information to criminally investigate or prosecute any alcohol or drug abuse patient.[facility]In the event this information is protected by the Federal Confidentiality of Alcohol and Drug Abuse Patient Records regulations: The Federal rules restrict any use of the information to criminally investigate or prosecute any alcohol or drug abuse patient.[facility]In the event this information is protected by the Federal Confidentiality of Alcohol and Drug Abuse Patient Records regulations: The Federal rules restrict any use of the information to criminally investigate or prosecute any alcohol or drug abuse patient.[facility]In the event this information is protected by the Federal Confidentiality of Alcohol and Drug Abuse Patient Records regulations: The Federal rules restrict any use of the information to criminally investigate or prosecute any alcohol or drug abuse patient.[facility]In the event this information is protected by the Federal Confidentiality of Alcohol and Drug Abuse Patient Records regulations: The Federal rules restrict any use of the information to criminally investigate or prosecute any alcohol or drug abuse patient.[facility] HospitalIn the event this information is protected by the Federal Confidentiality of Alcohol and Drug Abuse Patient Records regulations: The Federal rules restrict any use of the information to criminally investigate or prosecute any alcohol or drug abuse patient.[facility]In the event this information is protected by the Federal Confidentiality of Alcohol and Drug Abuse Patient Records regulations: The Federal rules restrict any use of the information to criminally investigate or prosecute any alcohol or drug abuse patient.[facility]In the event this information is protected by the Federal Confidentiality of Alcohol and Drug Abuse Patient Records regulations: The Federal rules restrict any use of the information to criminally investigate or prosecute any alcohol or drug abuse patient.[facility] HospitalIn the event this information is protected by the Federal Confidentiality of Alcohol and Drug Abuse Patient Records regulations: The Federal rules restrict any use of the information to criminally investigate or prosecute any alcohol or drug abuse patient.[facility]In the event this information is protected by the Federal Confidentiality of Alcohol and Drug Abuse Patient Records regulations: The Federal rules restrict any use of the information to criminally investigate or prosecute any alcohol or drug abuse patient.[facility] HospitalIn the event this information is protected by the Federal Confidentiality of Alcohol and Drug Abuse Patient Records regulations: The Federal rules restrict any use of the information to criminally investigate or prosecute any alcohol or drug abuse patient.[facility] HospitalIn the event this information is protected by the Federal Confidentiality of Alcohol and Drug Abuse Patient Records regulations: The Federal rules restrict any use of the information to criminally investigate or prosecute any alcohol or drug abuse patient.[facility] HospitalIn the event this information is protected by the Federal Confidentiality of Alcohol and Drug Abuse Patient Records regulations: The Federal rules restrict any use of the information to criminally investigate or prosecute any alcohol or drug abuse patient.[facility]In the event this information is protected by the Federal Confidentiality of Alcohol and Drug Abuse Patient Records regulations: The Federal rules restrict any use of the information to criminally investigate or prosecute any alcohol or drug abuse patient.[facility] HospitalIn the event this information is protected by the Federal Confidentiality of Alcohol and Drug Abuse Patient Records regulations: The Federal rules restrict any use of the information to criminally investigate or prosecute any alcohol or drug abuse patient.[facility]In the event this information is protected by the Federal Confidentiality of Alcohol and Drug Abuse Patient Records regulations: The Federal rules restrict any use of the information to criminally investigate or prosecute any alcohol or drug abuse patient.[facility] HospitalIn the event this information is protected by the Federal Confidentiality of Alcohol and Drug Abuse Patient Records regulations: The Federal rules restrict any use of the information to criminally investigate or prosecute any alcohol or drug abuse patient.[facility] HospitalIn the event this information is protected by the Federal Confidentiality of Alcohol and Drug Abuse Patient Records regulations: The Federal rules restrict any use of the information to criminally investigate or prosecute any alcohol or drug abuse patient.[facility] HospitalIn the event this information is protected by the Federal Confidentiality of Alcohol and Drug Abuse Patient Records regulations: The Federal rules restrict any use of the information to criminally investigate or prosecute any alcohol or drug abuse patient.[facility] HospitalIn the event this information is protected by the Federal Confidentiality of Alcohol and Drug Abuse Patient Records regulations: The Federal rules restrict any use of the information to criminally investigate or prosecute any alcohol or drug abuse patient.[facility] HospitalIn the event this information is protected by the Federal Confidentiality of Alcohol and Drug Abuse Patient Records regulations: The Federal rules restrict any use of the information to criminally investigate or prosecute any alcohol or drug abuse patient.[facility] HospitalIn the event this information is protected by the Federal Confidentiality of Alcohol and Drug Abuse Patient Records regulations: The Federal rules restrict any use of the information to criminally investigate or prosecute any alcohol or drug abuse patient.[facility] HospitalIn the event this information is protected by the Federal Confidentiality of Alcohol and Drug Abuse Patient Records regulations: The Federal rules restrict any use of the information to criminally investigate or prosecute any alcohol or drug abuse patient.[facility] HospitalIn the event this information is protected by the Federal Confidentiality of Alcohol and Drug Abuse Patient Records regulations: The Federal rules restrict any use of the information to criminally investigate or prosecute any alcohol or drug abuse patient.[facility] HospitalIn the event this information is protected by the Federal Confidentiality of Alcohol and Drug Abuse Patient Records regulations: The Federal rules restrict any use of the information to criminally investigate or prosecute any alcohol or drug abuse patient.[facility] HospitalIn the event this information is protected by the Federal Confidentiality of Alcohol and Drug Abuse Patient Records regulations: The Federal rules restrict any use of the information to criminally investigate or prosecute any alcohol or drug abuse patient.[facility] HospitalIn the event this information is protected by the Federal Confidentiality of Alcohol and Drug Abuse Patient Records regulations: The Federal rules restrict any use of the information to criminally investigate or prosecute any alcohol or drug abuse patient.[facility] HospitalIn the event this information is protected by the Federal Confidentiality of Alcohol and Drug Abuse Patient Records regulations: The Federal rules restrict any use of the information to criminally investigate or prosecute any alcohol or drug abuse patient.[facility] HospitalIn the event this information is protected by the Federal Confidentiality of Alcohol and Drug Abuse Patient Records regulations: The Federal rules restrict any use of the information to criminally investigate or prosecute any alcohol or drug abuse patient.[facility]In the event this information is protected by the Federal Confidentiality of Alcohol and Drug Abuse Patient Records regulations: The Federal rules restrict any use of the information to criminally investigate or prosecute any alcohol or drug abuse patient.[facility] HospitalIn the event this information is protected by the Federal Confidentiality of Alcohol and Drug Abuse Patient Records regulations: The Federal rules restrict any use of the information to criminally investigate or prosecute any alcohol or drug abuse patient.[facility] HospitalIn the event this information is protected by the Federal Confidentiality of Alcohol and Drug Abuse Patient Records regulations: The Federal rules restrict any use of the information to criminally investigate or prosecute any alcohol or drug abuse patient.[facility] HospitalIn the event this information is protected by the Federal Confidentiality of Alcohol and Drug Abuse Patient Records regulations: The Federal rules restrict any use of the information to criminally investigate or prosecute any alcohol or drug abuse patient.[facility] HospitalIn the event this information is protected by the Federal Confidentiality of Alcohol and Drug Abuse Patient Records regulations: The Federal rules restrict any use of the information to criminally investigate or prosecute any alcohol or drug abuse patient.[facility] HospitalIn the event this information is protected by the Federal Confidentiality of Alcohol and Drug Abuse Patient Records regulations: The Federal rules restrict any use of the information to criminally investigate or prosecute any alcohol or drug abuse patient.[facility] HospitalIn the event this information is protected by the Federal Confidentiality of Alcohol and Drug Abuse Patient Records regulations: The Federal rules restrict any use of the information to criminally investigate or prosecute any alcohol or drug abuse patient.[facility]In the event this information is protected by the Federal Confidentiality of Alcohol and Drug Abuse Patient Records regulations: The Federal rules restrict any use of the information to criminally investigate or prosecute any alcohol or drug abuse patient.[facility] HospitalIn the event this information is protected by the Federal Confidentiality of Alcohol and Drug Abuse Patient Records regulations: The Federal rules restrict any use of the information to criminally investigate or prosecute any alcohol or drug abuse patient.[facility] HospitalIn the event this information is protected by the Federal Confidentiality of Alcohol and Drug Abuse Patient Records regulations: The Federal rules restrict any use of the information to criminally investigate or prosecute any alcohol or drug abuse patient.[facility] HospitalIn the event this information is protected by the Federal Confidentiality of Alcohol and Drug Abuse Patient Records regulations: The Federal rules restrict any use of the information to criminally investigate or prosecute any alcohol or drug abuse patient.[facility] HospitalIn the event this information is protected by the Federal Confidentiality of Alcohol and Drug Abuse Patient Records regulations: The Federal rules restrict any use of the information to criminally investigate or prosecute any alcohol or drug abuse patient.[facility] HospitalIn the event this information is protected by the Federal Confidentiality of Alcohol and Drug Abuse Patient Records regulations: The Federal rules restrict any use of the information to criminally investigate or prosecute any alcohol or drug abuse patient.[facility] HospitalIn the event this information is protected by the Federal Confidentiality of Alcohol and Drug Abuse Patient Records regulations: The Federal rules restrict any use of the information to criminally investigate or prosecute any alcohol or drug abuse patient.[facility] HospitalIn the event this information is protected by the Federal Confidentiality of Alcohol and Drug Abuse Patient Records regulations: The Federal rules restrict any use of the information to criminally investigate or prosecute any alcohol or drug abuse patient.[facility] HospitalIn the event this information is protected by the Federal Confidentiality of Alcohol and Drug Abuse Patient Records regulations: The Federal rules restrict any use of the information to criminally investigate or prosecute any alcohol or drug abuse patient.[facility] HospitalIn the event this information is protected by the Federal Confidentiality of Alcohol and Drug Abuse Patient Records regulations: The Federal rules restrict any use of the information to criminally investigate or prosecute any alcohol or drug abuse patient.[facility] HospitalIn the event this information is protected by the Federal Confidentiality of Alcohol and Drug Abuse Patient Records regulations: The Federal rules restrict any use of the information to criminally investigate or prosecute any alcohol or drug abuse patient.[facility] HospitalIn the event this information is protected by the Federal Confidentiality of Alcohol and Drug Abuse Patient Records regulations: The Federal rules restrict any use of the information to criminally investigate or prosecute any alcohol or drug abuse patient.[facility] HospitalIn the event this information is protected by the Federal Confidentiality of Alcohol and Drug Abuse Patient Records regulations: The Federal rules restrict any use of the information to criminally investigate or prosecute any alcohol or drug abuse patient.[facility] HospitalIn the event this information is protected by the Federal Confidentiality of Alcohol and Drug Abuse Patient Records regulations: The Federal rules restrict any use of the information to criminally investigate or prosecute any alcohol or drug abuse patient.[facility] HospitalIn the event this information is protected by the Federal Confidentiality of Alcohol and Drug Abuse Patient Records regulations: The Federal rules restrict any use of the information to criminally investigate or prosecute any alcohol or drug abuse patient.[facility] HospitalIn the event this information is protected by the Federal Confidentiality of Alcohol and Drug Abuse Patient Records regulations: The Federal rules restrict any use of the information to criminally investigate or prosecute any alcohol or drug abuse patient.[facility] HospitalIn the event this information is protected by the Federal Confidentiality of Alcohol and Drug Abuse Patient Records regulations: The Federal rules restrict any use of the information to criminally investigate or prosecute any alcohol or drug abuse patient.[facility] HospitalIn the event this information is protected by the Federal Confidentiality of Alcohol and Drug Abuse Patient Records regulations: The Federal rules restrict any use of the information to criminally investigate or prosecute any alcohol or drug abuse patient.[facility] HospitalIn the event this information is protected by the Federal Confidentiality of Alcohol and Drug Abuse Patient Records regulations: The Federal rules restrict any use of the information to criminally investigate or prosecute any alcohol or drug abuse patient.[facility] HospitalIn the event this information is protected by the Federal Confidentiality of Alcohol and Drug Abuse Patient Records regulations: The Federal rules restrict any use of the information to criminally investigate or prosecute any alcohol or drug abuse patient.[facility] HospitalIn the event this information is protected by the Federal Confidentiality of Alcohol and Drug Abuse Patient Records regulations: The Federal rules restrict any use of the information to criminally investigate or prosecute any alcohol or drug abuse patient.[facility] HospitalIn the event this information is protected by the Federal Confidentiality of Alcohol and Drug Abuse Patient Records regulations: The Federal rules restrict any use of the information to criminally investigate or prosecute any alcohol or drug abuse patient.[facility] HospitalIn the event this information is protected by the Federal Confidentiality of Alcohol and Drug Abuse Patient Records regulations: The Federal rules restrict any use of the information to criminally investigate or prosecute any alcohol or drug abuse patient.[facility] HospitalIn the event this information is protected by the Federal Confidentiality of Alcohol and Drug Abuse Patient Records regulations: The Federal rules restrict any use of the information to criminally investigate or prosecute any alcohol or drug abuse patient.[facility] HospitalIn the event this information is protected by the Federal Confidentiality of Alcohol and Drug Abuse Patient Records regulations: The Federal rules restrict any use of the information to criminally investigate or prosecute any alcohol or drug abuse patient.[facility] HospitalIn the event this information is protected by the Federal Confidentiality of Alcohol and Drug Abuse Patient Records regulations: The Federal rules restrict any use of the information to criminally investigate or prosecute any alcohol or drug abuse patient.[facility] HospitalIn the event this information is protected by the Federal Confidentiality of Alcohol and Drug Abuse Patient Records regulations: The Federal rules restrict any use of the information to criminally investigate or prosecute any alcohol or drug abuse patient.[facility] HospitalIn the event this information is protected by the Federal Confidentiality of Alcohol and Drug Abuse Patient Records regulations: The Federal rules restrict any use of the information to criminally investigate or prosecute any alcohol or drug abuse patient.[facility] HospitalIn the event this information is protected by the Federal Confidentiality of Alcohol and Drug Abuse Patient Records regulations: The Federal rules restrict any use of the information to criminally investigate or prosecute any alcohol or drug abuse patient.[facility] HospitalIn the event this information is protected by the Federal Confidentiality of Alcohol and Drug Abuse Patient Records regulations: The Federal rules restrict any use of the information to criminally investigate or prosecute any alcohol or drug abuse patient.[facility] HospitalIn the event this information is protected by the Federal Confidentiality of Alcohol and Drug Abuse Patient Records regulations: The Federal rules restrict any use of the information to criminally investigate or prosecute any alcohol or drug abuse patient.[facility] HospitalIn the event this information is protected by the Federal Confidentiality of Alcohol and Drug Abuse Patient Records regulations: The Federal rules restrict any use of the information to criminally investigate or prosecute any alcohol or drug abuse patient.[facility] HospitalIn the event this information is protected by the Federal Confidentiality of Alcohol and Drug Abuse Patient Records regulations: The Federal rules restrict any use of the information to criminally investigate or prosecute any alcohol or drug abuse patient.[facility] HospitalIn the event this information is protected by the Federal Confidentiality of Alcohol and Drug Abuse Patient Records regulations: The Federal rules restrict any use of the information to criminally investigate or prosecute any alcohol or drug abuse patient.[facility] HospitalIn the event this information is protected by the Federal Confidentiality of Alcohol and Drug Abuse Patient Records regulations: The Federal rules restrict any use of the information to criminally investigate or prosecute any alcohol or drug abuse patient.[facility] HospitalIn the event this information is protected by the Federal Confidentiality of Alcohol and Drug Abuse Patient Records regulations: The Federal rules restrict any use of the information to criminally investigate or prosecute any alcohol or drug abuse patient.[facility] HospitalIn the event this information is protected by the Federal Confidentiality of Alcohol and Drug Abuse Patient Records regulations: The Federal rules restrict any use of the information to criminally investigate or prosecute any alcohol or drug abuse patient.[facility] HospitalIn the event this information is protected by the Federal Confidentiality of Alcohol and Drug Abuse Patient Records regulations: The Federal rules restrict any use of the information to criminally investigate or prosecute any alcohol or drug abuse patient.[facility] HospitalIn the event this information is protected by the Federal Confidentiality of Alcohol and Drug Abuse Patient Records regulations: The Federal rules restrict any use of the information to criminally investigate or prosecute any alcohol or drug abuse patient.[facility] HospitalIn the event this information is protected by the Federal Confidentiality of Alcohol and Drug Abuse Patient Records regulations: The Federal rules restrict any use of the information to criminally investigate or prosecute any alcohol or drug abuse patient.[facility] HospitalIn the event this information is protected by the Federal Confidentiality of Alcohol and Drug Abuse Patient Records regulations: The Federal rules restrict any use of the information to criminally investigate or prosecute any alcohol or drug abuse patient.[facility] HospitalIn the event this information is protected by the Federal Confidentiality of Alcohol and Drug Abuse Patient Records regulations: The Federal rules restrict any use of the information to criminally investigate or prosecute any alcohol or drug abuse patient.[facility] Reason for Visit (unrecogniz ed section and content) Reason Comments Head and Neck Cancer Specialty Diagnoses / Procedures Referred By Contac t Referred To Contact Radiation Oncology / RADIATION ONCOLOGY Diagnoses 1 Week Post XRT Last TX 01/06 Procedures EST POST 90 DAY RAD TX Nino Esposito MD [address] [place] [address] [place] [address] Nino Esposito MD [address] [place] [address] [place] [address] Referral ID Status Reason Start Date Expiration Date V isits Requested Visits Authorized [id number] Authorized 01/12/2023 10/08/2023 99 99 Reason Comments Post Radiation Treatment Follow Up Reason Comments oropharnyx cancer Specialty Diagnoses / Procedures Referred By Contac t Referred To Contact Diagnoses Oropharnyx cancer (HCC) Procedures CISPLATIN 10 MG INJECTION FOSAPREPITANT INJECTION Elizabeth Borjas MD [address] [place] [id number] [address] Treat [address] [place] [address] Referral ID Status Reason Start Date Expiration Date Visits Re quested Visits Authorized [id number] Closed 11/16/2022 12/29/2022 7 7 Reason Comments Patient Education Reason Comments Consult Reason Comments Patient Update Reason Comments Oropharnyx cancer New patient consult Specialty Diagnoses / Procedures Referred By Contac t Referred To Contact Oncology Diagnoses Oropharnyx cancer (HCC) Procedures CONSULT TO ONCOLOGY OFFICE/OUTPATIENT NEW HIGH MDM 60-74 MINUTES Nino Esposito MD [address] [place] [address] Referral ID Status Reason Start Date Expiration Date V isits Requested Visits Authorized [id number] Closed PCP Requested Referral 10/27/2022 10/27/2023 1 1 Reason Comments Medication Authorization Ondansetron Reason Comments First Time Treatment Education Reason Comments Nutrition Assessment Reason Onset Date Comments Simulation Request Form 11/03/2022 Reason Comments Appointment Reason Onset Date Comments Simulation Request Form 11/14/2022 Reason Comments Care Coordination Change in treatment date Reason Comments Nutrition Counseling Specialty Diagnoses / Procedures Referred By Contac t Referred To Contact Diagnoses Oropharnyx cancer (HCC) Procedures CISPLATIN 10 MG INJECTION FOSAPREPITANT INJECTION Elizabeth Borjas MD [address] [place] [address] Hilario Treat [address] [place] [address] Referral ID Status Reason Start Date Expiration Date V isits Requested Visits Authorized [id number] Authorized 11/16/2022 12/29/2022 7 7 Reason Comments Benefits Investigation Reason Comments Lab Orders Reason Comments Care Coordination C1D1 treatment follo w up call Reason Comments Radiotherapy On-treatment Visit Reason Comments Care Coordination Toxicity check Reason Comments Oropharnyx cancer (HCC) Reason Comments Oropharnyx cancer 1 week follow up Reason Comments oropharynx cancer Reason Comments Fatigue Reason Comments Refill Request Reason Comments oropharnyx cancer Brain Tumor Treatment visit Reason Comments Oropharnyx cancer OTV 1 week Reason Comments Results Reason Comments Head and Neck Cancer Reason Comments Oropharnyx cancer 3 month follow up Reason Onset Date Comments Bronchoscopy Scheduling 08/03/2023 Initial Bronch Request Reason Comments Bronchoscopy Scheduling Reason Comments Radiology CT Specialty Diagnoses / Procedures Referred By Contac t Referred To Contact CT IMAGING Diagnoses Pulmonary nodule Preoperative examination Procedures CT CHEST WO IVCON DIAGNOSTIC COMPUTED TOMOGRAPHY THORAX W/O Nila Cruz MD [address] [place] [address] [facility] [place] [address] Referral ID Status Reason Start Date Expiration Date V isits Requested Visits Authorized [id number] Closed Auto-Generate d Referral 08/03/2023 09/01/2024 1 1 Specialty Diagnoses / Procedures Referred By Jose glez Referred To Contact ADMITTING Diagnoses Bronchiolar disease Procedures [facility] INCL FLUOR GDNCE DX W/CELL WASHG SPX BRONCHOSCOPY [facility] H23 [address] [address] Referral ID Status Reason Start Date Expiration Date Visits Re quested Visits Authorized [id number] 1 1 Reason Comments Head and Neck Cancer Follow up Reason Comments New Reason Comments Oropharnyx cancer OTV Reason Comments Cancer 1 month check Reason Comments Oropharnyx cancer OTV Reason Comments Care Coordination Thyroid medication Specialty Diagnoses / Procedures Referred By Jose glez Referred To Contact Diagnoses Oropharnyx cancer (HCC) Procedures INJ PEMBROLIZUMAB Elizabeth Borjas MD [address] [place] [phone] [address] [place] [address] Referral ID Status Reason Start Date Expiration Date V isits Requested Visits Authorized [id number] Authorized 12/14/2023 06/14/2024 99 99 Specialty Diagnoses / Procedures Referred By Jose glez Referred To Contact Diagnoses Oropharnyx cancer (HCC) Procedures INJ. [id number] 10 MCG CARBOPLATIN INJECTION PALONOSETRON HCL INJ PEMBROLIZUMAB FOSAPREPITANT INJECTION Elizabeth Borjas MD [address] [place] [phone] [address] Treat [address] [place] [address] Referral ID Status Reason Start Date Expiration Date V isits Requested Visits Authorized [id number] Closed Patient Cleared - Admin/Chairm an/Director advise to proceed or did not respond 09/12/2023 04/16/2024 99 99 Reason Comments Oropharnyx cancer Reason Comments Orders Reason Comments oropharynx cancer Treatment visit Reason Comments Consult Specialty Diagnoses / Procedures Referred By Contac t Referred To Contact Endocrinology Diagnoses Adrenal insufficiency (HCC) Procedures CONSULT TO ENDOCRINOLOGY OFFICE/OUTPATIENT [facility] 60 MINUTES Vanesa Gomez PA-C [address] [place] [address] [place] [address] Referral ID Status Reason Start Date Expiration Date V isits Requested Visits Authorized [id number] Closed PCP Requested Referral 03/28/2024 03/28/2025 1 1 Reason Comments Bronchoscopy Scheduling Reason Comments Pre-Op Visit Reason Comments Nodule Reason Comments Future Appointment (unrecognized sect ion and content) No Status Records FoundNo Status Records FoundNo Status Records FoundNo Status Records FoundNo Status Records FoundNo Status Records Found INFORMATION SOURCE (unrecogn ized section and content) DATE CREATED AUTHOR 12/17/2022 [facility] DATE CREATED AUTHOR AUTHOR'S ORGANIZ ATION 09/24/2023 [facility] DATE CREATED AUTHOR AUTHOR'S ORGANIZ ATION 04/25/2024 [facility] DATE CREATED AUTHOR AUTHOR'S ORGANIZ ATION 05/20/2024 [facility] EPIC DATE CREATED AUTHOR AUTHOR'S ORGANIZ ATION 05/28/2024 [facility] DATE CREATED AUTHOR AUTHOR'S ORGANIZ ATION 05/28/2024 [facility] Goals (unrecognized section and content) Goals may be documented in a n alternate section Inactive Administered Medications - up to 3 most recent administrations Administered Medications (un recognized section and content) Medication Order MAR Action Action Date Dose Rate Site pembrolizumab 200 mg in NaCl 0.9% 66 mL (KEYTRUDA) 200 mg, INTRAVENOUS, Administer over 30 Minutes, ONCE, 1 dose, On Mon01/02/24 at 1030, Approx Total Volume: 66 mL EXP: 01/02/2024 1615 RT Administer with 0.2 micron filter. New Bag/Syringe/Bottle 01/02/2024 10:47 AM EDT 200 mg FOR RECORDS PERTAINING TO PATIENTS WHO ARE OR HAVE BEEN ENROLLED IN A CHEMICAL DEPENDENCY/SUBSTANCEABUSE PROGRAM, SOME INFORMATION MAY BE OMITTED. This clinical summary was aggregated from multiple sources. Caution should be exercised in using it in the provision of clinical care. This summary normalizes information from multiple sources, and as a consequence, information in this document may materially change the coding, format and clinical context of patient data. In addition, data may be omitted in some cases. CLINICAL DECISIONS SHOULD BE BASED ON THE PRIMARY CLINICAL RECORDS. [facility] [employer] [facility]. provides no warranty or guarantee of the accuracy or completeness of information in this document.
[2024-06-01 10:02] LABS: Estimated Average Glucose 105 mg/dL; Glycohemoglobin A1C 5.3 % (4.5-6.2)
[2024-06-01 11:13] LABS: Chol HDL Ratio 2.9; Cholesterol 175 mg/dL (<=200); HDL Cholesterol 60 mg/dL (40-60); Triglycerides 45 mg/dL (<=150)
[2024-06-01 11:26] LABS: Prostate Specific Antigen Scrn 3.53 ng/mL (<=4.00)
== END 2024-06-01 09:05 | disposition home or self-care (01) ==
LOC: LAB 09:07
PROVIDERS: PCP Family Medicine; Visit Provider Family Medicine
DX: Z00.00 Encounter for general adult medical examination without abnormal findings (principal); E78.5 Hyperlipidemia, unspecified; Z12.5 Encounter for screening for malignant neoplasm of prostate; R73.09 Other abnormal glucose
CPT/HCPCS: 36415; 80061; 83036; G0103

== ENCOUNTER 2024-06-26 16:17 | Outpatient (OUT) | payer OTHER, SELFPAY ==
[2024-06-26 17:35] LABS: Prostate Specific Antigen Dx 3.79 ng/mL (<=4.00)
== END 2024-06-26 16:18 | disposition home or self-care (01) ==
PROVIDERS: PCP Family Medicine; Visit Provider Urology
DX: N40.1 Benign prostatic hyperplasia with lower urinary tract symptoms (principal)
CPT/HCPCS: 36415; 84153

== ENCOUNTER 2025-06-19 16:34 | Outpatient (OUT) | payer OTHER, SELFPAY ==
--- OUTSIDE RECORDS SUMMARY | 2025-06-19 17:21 | XMS_ITS | CCD ---
Author Organization [facility] CliniSymd Care Team Providers Care Can Stacker Name Role Phone Julian Burton Primary Care Physician Julian Burton MD Primary Care Provider [phone] Demi CHEN, Yadi Unavailable Rian ROUSSEAU, Chiqui Oneill Unavailable Indio KELLEY, Elizabeth Unavailable Selma VICK, Tremaine Dowling Unavailable [phone] July Vanessa Unavailable Unavailable JOSEPHINE ., DR [...] DR ALFONSO Primary Care Unavailable TIMMIS, DR KENDALL Admitting Unavailable TIMMIS, DR KENDALL Consulting Unavailable [...] MILLER Consulting Unavailable PJ BARDALES Consulting Unavailable Julian Burton MD Primary Care Provider Julian Burton MD Primary Care Provider [phone] Galo CHEN, Yadi Unavailable MD Lee Ivy Attending Provider MD Julian Burton Primary Care Provider [phone] Galo CHEN, Yadi Unavailable Rian ROUSSEAU, Chiqui Oneill Unavailable [phone] Julian Burton MD Primary Care Provider [phone] Julian Burton MD Primary Care Provider [phone] MD Julian Burton Primary Care Provider [phone] NICANOR Gomez Attending Provider Tremaine Gomez Admitting Unavailable Tremaine Gomez Attending Unavailable Hoy, Julian M Primary Care Unavailable Lee Ivy Admitting Unavailable Lee Ivy Attending Unavailable Hoy, Julian M Primary Care Unavailable HOY, JULIAN M Primary Care Unavailable KAROLINA CATALAN Attending Unavailable RAS STARR Admitting Unavailable RAS STARR Attending Unavailable HOY, JULIAN M Primary Care Unavailable Indio KELLEY, Elizabeth Unavailable Lakia Medina MD Unavailable Norma Craig Attending Unavailable Norma Craig Attending Unavailable Norma Craig Attending Unavailable Norma Craig Attending Unavailable Julian Burton MD Primary Care Provider [phone] TIMMIS, ENOCH H Attending Unavailable TIMMIS, ENOCH H Attending Unavailable TIMMIS, ENOCH H Attending Unavailable TIMMIS, ENOCH H Attending Unavailable TIMMIS, ENOCH H Attending Unavailable TIMMIS, ENOCH H Attending Unavailable TIMMIS, ENOCH H Attending Unavailable LAKIA MEDINA Referring Unavailable HOY, JULIAN M Primary Care Unavailable JOSE ANGEL ELLSWORTHORY M Referring Unavailable HOY, JULIAN M Primary Care Unavailable HOY, JULIAN M Primary Care Unavailable VIDETIC, TAYLA M Referring Unavailable KARAMLOU, ELIZABETH Referring Unavailable ABHYANKAR, LAKIA Attending Unavailable HOY, JULIAN M Primary Care Unavailable ABHYANKAR, LAKIA Referring Unavailable HOY, JULIAN M Primary Care Unavailable VIDETICTAYLA M Attending Unavailable VIDETIC, TAYLA M Referring Unavailable HOY, JULIAN M Primary Care Unavailable KARAMLOU, ELIZABETH Referring Unavailable HOY, JULIAN M Primary Care Unavailable KARAMLOU, ELIZABETH Referring Unavailable ABHYANKAR, LAKIA Attending Unavailable HOY, JULIAN M Primary Care Unavailable VIDETIC, TAYLA M Referring Unavailable HOY, JULIAN M Primary Care Unavailable KARAMLOU, ELIZABETH Referring Unavailable HOY, JULIAN M Primary Care Unavailable CHUCK JONES Attending Belen MCKEONY, JULIAN M Primary Care Unavailable KARAMLOU, ELIZABETH Referring Unavailable HOY, JULIAN M Primary Care Unavailable SELF Referring Unavailable HOY, JULIAN M Primary Care Unavailable KARAMLOU, ELIZABETH Referring Unavailable HOY, JULIAN M Primary Care Unavailable KARAMLOU, ELIZABETH Referring Unavailable ABHYANKAR, LAKIA Attending Unavailable HOY, JULIAN M Primary Care Unavailable KARAMLOU, ELIZABETH Referring Unavailable HOY, JULIAN M Primary Care Unavailable KARAMLOU, ELIZABETH Referring Unavailable ABHYANKAR, LAKIA Attending Unavailable HOY, JULIAN M Primary Care Unavailable KARAMLOU, ELIZABETH Referring Unavailable HOY, JULIAN M Primary Care Unavailable VIDETIC, TAYLA M Referring Unavailable HOY, JULIAN M Primary Care Unavailable ADELITATICTAYLA M Referring Unavailable VIDETICTAYLA M Attending Unavailable HOY, JULIAN M Primary Care Unavailable KARAMLOU, ELIZABETH Referring Unavailable HOY, JULIAN M Primary Care Unavailable KARAMLOU, ELIZABETH Referring Unavailable EVITAYFMAN, JI A Attending Unavailable HOY, JULIAN M Primary Care Unavailable VIDETIC, TAYLA M Referring Unavailable HOY, JULIAN M Primary Care Unavailable ABHYANKAR, LAKIA Referring Unavailable HOY, JULIAN M Primary Care Unavailable KARAMLOU, ELIZABETH Referring Unavailable HOY, JULIAN M Primary Care Unavailable CHUCK JONES Attending Belen BURTON, JULIAN M Primary Care Unavailable VIDETIC, TAYLA M Referring Unavailable HOY, JULIAN M Primary Care Unavailable VIDETIC, TAYLA M Referring Unavailable VIDETIC, TAYLA M Attending Unavailable HOY, JULIAN M Primary Care Unavailable HOY, JULIAN M Primary Care Unavailable KARAMLOU, ELIZABETH Referring Unavailable ABHYANKAR, LAKIA Attending Unavailable HOY, JULIAN M Primary Care Unavailable KARAMLOU, ELIZABETH Referring Unavailable CHUCK JONES Attending Belen savage HOY, JULIAN M Primary Care Unavailable ABHYANKAR, LAKIA Referring Unavailable HOY, JULIAN M Primary Care Unavailable VIDETIC, TAYLA M Attending Unavailable VIDETIC, TAYLA M Referring Unavailable HOY, JULIAN M Primary Care Unavailable KARAMLOU, ELIZABETH Referring Unavailable HOY, JULIAN M Primary Care Unavailable VIDETIC, TAYLA M Attending Unavailable HOY, JULIAN M Primary Care Unavailable HOY, JULIAN M Primary Care Unavailable KARAMLOU, ELIZABETH Referring Unavailable VICKY MAGUIRE Attending Unavailable KARAMLOU, ELIZABETH Referring Unavailable HOY, JULIAN M Primary Care Unavailable WHITNEY HALLMAN Attending Unavailable KARAMLOU, ELIZABETH Referring Unavailable HOY, JULIAN M Primary Care Unavailable VIDETIC, TAYLA M Attending Unavailable HOY, JULIAN M Primary Care Unavailable ABHYANKAR, LAKIA Referring Unavailable HOY, JULIAN M Primary Care Unavailable Allergies Allergy Classification Reported Allergen(s) Allergy Type Date of Onset Reaction(s) Facility (1 source) No Known Medication Allergies; Translations: [No Known Medication Allergies] Propensity to adverse reactions (disorder) [facility] Repository Medications Current Medications Medication Drug [...] Take 10 mg by mouth once daily. ciprofloxacin 3 mg/ml / dexamethasone 1 mg/ml otic suspension (2 sources) Corticosteroid, Quinolone Antimicrobial Start: 07-12-2024 End: 07-19-2024 ciprofloxacin-dexAMET Hasone (CiproDEX) otic suspension Indications: Chronic myringitis of right ear Administer 4 drops into affected ear(s) in the morning and 4 drops before bedtime. Do all this for 7 days. 7.5 mL 07/12/2024 07/19/2024 Active enteric contrast (will be provided with radiology test) (5 sources) Start: 10-31-2024 End: 11-01-2024 enteric contrast (will be provided with radiology test) For CT Chest Abdomen W IVCON order Administer, As Directed One Time Only, via Oral, Rectal, both Oral and Rectal, Enteric Tube, Stoma or Indwelling Catheter, Enteric Contrast as designated per enteric contrast guidelines 1 Each 10/31/2024 11/01/2024 Active Start: 03-26-2024 End: 03-27-2024 enteric contrast (will be pr ovided with radiology test) For CT CHESTABD/PEL W IVCON Routine order Administer, As Directed One Time Only, via Oral, Rectal, both Oral and Rectal, Enteric Tube, Stoma or Indwelling Catheter, Enteric Contrast as designated per enteric contrast guidelines 1 Each 0 03/26/2024 03/27/2024 Active famotidine 20 mg oral tablet (20 sources) Histamine-2 Receptor Antagonist Start: 01-10-2025 End: 01-19-2025 take 1 tablet by mouth twice daily famotidine (PEPCID) 20 mg tablet Indications: Gastroesophageal reflux disease, unspecified whether esophagitis present TAKE 1 TABLET BY MOUTH TWICE A DAY 180 tablet 1 01/19/2025 Active ibuprofen 200 mg oral tablet (20 sources) Nonsteroidal Anti-inflammatory Drug take 1 tablet by mouth every six hours as needed ibuprofen (MOTRIN) 200 mg tablet Take 200 mg by mouth every 6 hours as needed. Active Comment on above: Take 200 mg by mouth every 6 hours as needed. iv contrast (will be provided with radiology test) (11 sources) Start: 02-20-2025 End: 02-21-2025 iv contrast (will be provided with radiology test) CT Chest W -Inject, [...] the CT contrast administration guidelines link. 1 each 02/20/2025 02/21/2025 Active Start: 10-31-2024 End: 11-01-2024 iv contrast (will be provide d with radiology test) CT Chest Abdomen-Inject, intravenously, once for 1 dose.No IV access, [...] CT contrast administration guidelines link. 1 Each 10/31/2024 11/01/2024 Active Start: 03-26-2024 End: 03-27-2024 inject 1 dose intravenously once iv contrast [...] CT contrast administration guidelines link. levothyroxine sodium 0.1 mg oral tablet (20 sources) l-Thyroxine Start: 01-11-20 End: 05-28-20 take 1 tablet by mouth once daily levothyroxine (SYNTHROID) 100 mcg tablet Indications: Acquired hypothyroidism Take 1 tablet by mouth once daily. 90 tablet 3 05/28/2025 Active Start: 08-09-2024 End: 05-28-2025 take 1 tablet by mouth once daily levothyroxine (SYNTHROID) 88 mcg tablet Indications: Acquired hypothyroidism Take 1 tablet by mouth once daily. 90 tablet 1 08/09/2024 05/28/2025 Discontinued (Dosage adjustment) Start: 07-08-2024 End: 08-09-2024 take 1 tablet by mouth once daily levothyroxine (SYNTHROID) 50 mcg tablet take 1 tablet by mouth every day 90 tablet 1 07/09/2024 08/09/2024 Discontinued (Dosage adjustment) Start: 06-28-2024 take 1 tablet by rudy th once daily levothyroxine 50 mcg (0.05 mg) Tab 50 mcg = 1 tab(s), Oral, Daily, Refills(s) 0 Start Date: 06/28/24 Status: Ordered Start: 12-13-2023 End: 07-06-2024 take 1 tablet by mouth once daily levothyroxine (SYNTHROID) 50 mcg tablet TAKE 1 TABLET BY MOUTH EVERY DAY 90 tablet 1 01/04/2024 07/06/2024 Discontinued Comment on above: Take 1 tablet by rudy th once daily. lisinopril 40 mg oral tablet (20 sources) Angiotensin Converting Enzyme Inhibitor Start: take 1 tablet by mouth once daily lisinopril (ZESTRIL, PRINIVIL) 40 mg tablet Take 40 mg by mouth once daily. 12/17/2020 Active Comment on above: Take by mouth. Take 40 mg by mouth once daily. Ondansetron (20 sources) Serotonin-3 Receptor Antagonist Start: ondansetron Refills(s) 0 Start Date: 06/28/24 Status: Ordered Start: 09-29-2023 take 1 tablet by rudy th every eight hours as needed ondansetron (ZOFRAN) 8 mg tablet Take 1 tablet by mouth every 8 hours as needed for nausea/vomiting. 90 tablet 2 09/29/2023 9:21 AM EST 09/29/2023 Active Start: 11-03-2022 End: 01-27-2023 take 1 tablet by mouth every eight hours as needed ondansetron (ZOFRAN) 8 mg tablet Take 1 tablet by mouth every 8 hours as needed for nausea/vomiting. 90 tablet 2 11/03/2022 01/27/2023 Discontinued (Discontinued by Patient) Comment on above: Take 1 tablet by rudy th every 8 hours as needed for nausea/vomiting. Keytruda (20 sources) Programmed Receptor-1 Blocking Antibody Start: 06-28-2024 Keytruda mg, IV, q3wk, Refills(s) 0 Start Date: 06/28/24 Status: Ordered Start: 06-28-2024 pembrolizumab (KEYTRUDA INTRAVENOUS) Inject intravenously. 06/28/2024 Active pravastatin sodium 20 mg oral tablet (20 sources) HMG-CoA Reductase Inhibitor Start: 12-17-2020 take 1 tablet by mouth once daily pravastatin (PRAVACHOL) 20 mg tablet Take 20 mg by mouth once daily. 12/17/2020 Active Comment on above: Take by mouth. Take 20 mg by mouth once daily. prochlorperazine 10 mg oral tablet (20 sources) Phenothiazine Start: 06-28-2024 take 1 mg by mouth three times daily prochlorperazine 10 mg Tab mg tab(s), Oral, TID, Refills(s) 0 Start Date: 06/28/24 Status: Ordered Start: 09-29-2023 take 1 tablet by rudy th every six hours as needed prochlorperazine (COMPAZINE) 10 mg tablet Take 1 tablet by mouth every 6 hours as needed. 100 tablet 2 09/29/2023 9:21 AM EST 09/29/2023 Active Start: 11-03-2022 End: 01-27-2023 take 1 tablet by mouth every six hours as needed prochlorperazine (COMPAZINE) 10 mg tablet Take 1 tablet by mouth every 6 hours as needed. 100 tablet 2 11/03/2022 01/27/2023 Discontinued (Discontinued by Patient) Comment on above: Take 1 tablet by rudy th every 6 hours as needed. tadalafil 5 mg oral tablet (17 sources) Phosphodiesterase 5 Inhibitor Start: 4 End: 5 take 1 tablet by mouth once daily Cialis 5 mg oral tablet 5 mg = 1 tab(s), Oral, Daily, X 30 day(s), # 30 tab(s), Refills(s) 11, Pharmacy: [facility]/pharmacy #[id number], 182, cm, 06/28/24 15:07:00 EDT, Height/Length Dosing, 96, kg, 06/28/24 15:07:00 EDT, Weight Dosing Start Date: 06/28/24 Stop Date: 06/23/25 Status: Ordered take 1 tablet by rudy th every twenty-four hours as needed tadalafil (Cialis) 10 MG tablet Take 10 mg by mouth Daily as needed for erectile dysfunction Active tamsulosin hydrochloride 0.4 mg oral capsule (20 sources) alpha-Adrenergic Magi Start: 06-28-2024 End: 06-23-2025 take 2 capsules by mouth once daily tamsulosin 0.4 mg Cap 0.8 mg = 2 cap(s), Oral, Daily, X 30 day(s), # 60 cap(s), Refills(s) 11, Pharmacy: [facility]/pharmacy #[id number], 182, cm, 06/28/24 15:07:00 EDT, Height/Length Dosing, 96, kg, 06/28/24 15:07:00 EDT, Weight Dosing Start Date: 06/28/24 Stop Date: 06/23/25 Status: Ordered Start: 03-17-2023 tamsulosin (FL OMAX) 0.4 mg Take 0.4 mg by mouth. 03/17/2023 Active take 1 capsule by mo [facility] every twenty-four hours in the morning tamsulosin (Flomax) 0.4 MG 24 hr capsule Take 0.4 mg by mouth in the morning. Active Comment on above: Take 0.4 mg [...] Take 4 mg by mouth once daily. 08/30/2022 04/18/2023 Discontinued (Changing Therapy/Dosage Form) Start: 08-24-2021 doxazosin 4 mg Tab 4 mg = 1 tab(s), Refills(s) 0 Start Date: 08/24/21 Status: Ordered Comment on above: Take 4 mg by mouth o nce daily. hydrocortisone 5 mg oral tablet (20 sources) Corticosteroid Start: 03-28-2024 End: 06-11-2024 hydrocortisone (CORTEF) 5 mg tablet Take 10 mg upon waking in the morning and 5 mg at night (4-6 hours before bed) 90 tablet 2 03/28/2024 06/11/2024 Discontinued (Discontinued by another Health Care Provider) End: 05-02-2025 take 1 tablet by mouth once daily in the evening hydrocortisone (Cortef) 5 MG tablet Take 5 mg by mouth Daily 2 tabs in AM, 1 tab PM 05/02/2025 Discontinued (Therapy completed) NaCl 0.9% 500 mL (1 source) Start: 03-26-2024 End: 03-26-2024 NaCl 0.9% 500 mL pembrolizumab 400 mg in NaCl 0.9% 74 mL (KEYTRUDA) (12 sources) Start: 05-29-2025 End: 05-29-2025 400 mg, INTRAVENOUS, Adminis ter over 30 Minutes, ONCE, 1 dose, On Mon05/29/25 at 1000, EXP: 06/02/2025 0950 Refrigerated Administer with 0.2 micron filter. Start: 04-18-2025 End: 04-18-2025 400 mg, INTRAVENOUS, Adminis ter over 30 Minutes, ONCE, 1 dose, On Mon04/18/25 at 1400, EXP: 04/18/25 @ 1815 RT Administer with 0.2 micron filter. Start: 03-07-2025 End: 03-07-2025 400 mg, INTRAVENOUS, Adminis ter over 30 Minutes, ONCE, 1 dose, On Mon03/07/25 at 1430, EXP: 03/11/2025 1435 Refrigerated Administer with 0.2 micron filter. Start: 01-24-2025 End: 01-24-2025 400 mg, INTRAVENOUS, Adminis ter over 30 Minutes, ONCE, 1 dose, On Mon01/24/25 at 1400, EXP: 01/28/2025 1350 Refrigerated Administer with 0.2 micron filter. Start: 12-13-2024 End: 12-13-2024 400 mg, INTRAVENOUS, Adminis ter over 30 Minutes, ONCE, 1 dose, On Mon12/13/24 at 1430, EXP: 12/17/2024 1415 Refrigerated Administer with 0.2 micron filter. Start: 11-01-2024 End: 11-01-2024 400 mg, INTRAVENOUS, Adminis ter over 30 Minutes, ONCE, 1 dose, On Mon11/01/24 at 1400, EXP: 11/05/2024 1400 RT Administer with 0.2 micron filter. Start: 09-13-2024 End: 09-13-2024 400 mg, INTRAVENOUS, Adminis ter over 30 Minutes, ONCE, 1 dose, On Mon09/13/24 at 1400, EXP: 09/17/2024 1350 RT Administer with 0.2 micron filter. Start: 08-02-2024 End: 08-02-2024 400 mg, INTRAVENOUS, Adminis ter over 30 Minutes, ONCE, 1 dose, On Mon08/02/24 at 1330, EXP 191908/02/24 Administer with 0.2 micron filter. Start: 06-20-2024 End: 06-20-2024 400 mg, INTRAVENOUS, Adminis ter over 30 Minutes, ONCE, 1 dose, On Mon06/20/24 at 1430, EXP: 06/24/2024 1430 RT Administer with 0.2 micron filter. Start: 05-08-2024 End: 05-08-2024 pembrolizumab 400 mg in NaCl 0.9% 74 mL (KEYTRUDA) Start: 03-26-2024 End: 03-26-2024 pembrolizumab 400 mg in NaCl 0.9% 74 mL (KEYTRUDA) Start: 02-13-2024 End: 02-13-2024 pembrolizumab 400 mg in NaCl 0.9% 74 mL (KEYTRUDA) 125 ml sodium chloride 9 mg/ml prefilled syringe (2 sources) Start: 12-13-2024 End: 12-13-2024 10-20 mL, INTRAVENOUS, DI RECTED NEEDED, Starting on Mon12/13/24 at 1409, Until Mon12/13/24 at 1708, See Administration Instructions, IVADS not in use should be accessed and flushed once every 4 to 6 weeks with 10 mL of 0.9% NaCl. Upon IVAD de-access or post blood draw the IVAD should be flushed with 20 mL of 0.9% NaCl using push/pause method. Normal saline flush every 12 weeks when not being used. Start: 09-13-2024 End: 09-13-2024 500-999 mL/hr, INTRAVENOUS, NEEDED, 1 dose, Starting on Mon09/13/24 at 1340, Until Mon09/13/24 at 1443, Hypotension (titrate to maintain SBP greater than 100), Administer per hypersensitivity/anaphylaxis grading in nursing communication Problems Active Problems Problem Classification Problem Date Documented Da te Episodic/Chronic Cancer of bronchus; lung (13 sources) Malignant tumor of lung; Translations: [Malignant neoplasm of unspecified part of unspecified bronchus or lung] Onset: 5 06-28-2024 Chronic Cancer of head and neck (20 sources) Malignant tumor of oropharynx; Translations: [Malignant neoplasm of oropharynx, unspecified] Onset: 3 Chronic Cancer; other respiratory and intrathoracic (2 sources) Malignant neoplasm of lower respiratory tract 02-20-2025 Chronic Chronic kidney disease (20 sources) Chronic kidney disease stage 3; Translations: [Stage 3 chronic kidney disease, unspecified whether stage 3a or 3b CKD (HCC)] Onset: 4 05-14-2024 Chronic Disorders of lipid metabolism (20 sources) Hyperlipidemia; Translations: [Hyperlipidemia, unspecified] Onset: 3 Resolved: 3 12-22-2020 Chronic Esophageal disorders (2 sources) Gastroesophageal reflux disease; Translations: [Gastro-esophageal reflux disease without esophagitis] 01-10-2025 Chronic Esophageal disorders (2 sources) Esophagitis; Translations: [Esophagitis] Episodic Essential hypertension (20 sources) Hypertensive disorder; Translations: [Essential (primary) hypertension] Onset: 3 12-17-2020 Chronic Headache; including migraine (4 sources) Thunderclap headache; Translations: [Primary thunderclap headache] Onset: 4 03-26-2024 Episodic Hyperplasia of prostate (20 sources) Benign prostatic hypertrophy with outflow obstruction; Translations: [Benign prostatic hyperplasia with lower urinary tract symptoms] Onset: 2 Resolved: 3 Chronic Lymphadenitis (3 sources) Lymphadenopathy; Translations: [Enlarged lymph nodes, unspecified] Onset: 4 05-13-2024 Episodic Nutritional deficiencies (20 sources) Deficiency of macronutrients; Translations: [Unspecified severe protein-calorie malnutrition] Onset: 3 Resolved: 3 Chronic Osteoarthritis (20 sources) Arthritis; Translations: [Unspecified osteoarthritis, unspecified site] Onset: 3 Resolved: 3 12-22-2020 Chronic Other diseases of kidney and ureters (1 source) Urinary tract obstruction; Translations: [Other obstructive and reflux uropathy] Onset: 2 Episodic Other ear and sense organ disorders (20 sources) Hearing loss; Translations: [Unspecified hearing loss, unspecified ear] Onset: 3 12-22-2020 Chronic Other ear and sense organ disorders (2 sources) Chronic right myringitis; Translations: [Chronic myringitis, right ear] 07-12-2024 Chronic Other endocrine disorders (20 sources) Hypoadrenalism; Translations: [Unspecified adrenocortical insufficiency] Onset: 4 05-10-2024 Chronic Other endocrine disorders (1 source) Unspecified adrenocortical insufficiency; Translations: [Adrenal insufficiency (HCC)] Onset: 4 Chronic Other gastrointestinal disorders (1 source) Oral phase dysphagia; Translations: [Dysphagia, oral phase] 05-29-2025 Episodic Other gastrointestinal disorders (1 source) Dysphagia, oral phase; Translations: [Oral phase dysphagia] Onset: 5 Episodic Other lower respiratory disease (5 sources) Nodule of lung; Translations: [Solitary pulmonary nodule] 08-03-2023 Episodic Other lower respiratory disease (1 source) Cough; Translations: [Subacute cough] 05-29-2025 Episodic Other nervous system disorders (1 source) Pain due to neoplastic disease; Translations: [Neoplasm related pain (acute) (chronic)] Chronic Other screening for suspected conditions (not mental disorders or infectious disease) (20 sources) Raised prostate specific antigen; Translations: [Elevated prostate specific antigen [PSA]] Onset: 2 Resolved: 3 Episodic Other skin disorders (4 sources) Localized swelling, mass and lump, neck; Translations: [LOCALIZED SWELLING MASS AND LUMP NECK] Onset: 2 Episodic Residual codes; unclassified (4 sources) Family history of cancer; Translations: [Family history of malignant neoplasm of prostate] Onset: 2 Episodic Residual codes; unclassified (2 sources) Patient encounter status; Translations: [Encounter for immunotherapy] 11-01-2024 Episodic Residual codes; unclassified (1 source) H/O: radiation exposure; Translations: [Personal history of irradiation] 05-29-2025 Episodic Residual codes; unclassified (1 source) Personal history of irradiation; Translations: [Personal history of irradiation] Onset: 5 Episodic Secondary malignancies (1 source) Secondary and unspecified malignant neoplasm of lymph nodes of head, face and neck; Translations: [SEC AND UNS MAL MARIA DE JESUS NODES HEAD AND NCK] Onset: 3 Chronic Secondary malignancies (20 sources) Metastasis to head and neck lymph node; Translations: [Secondary and unspecified malignant neoplasm of lymph nodes of head, face and neck] Onset: 3 02-24-2023 Chronic Secondary malignancies (10 sources) Secondary malignant neoplasm of right lung; Translations: [Secondary malignant neoplasm of right lung] 06-11-2024 Chronic Secondary malignancies (4 sources) Secondary malignant neoplasm of chest wall; Translations: [Secondary malignant neoplasm of other specified sites] 10-31-2024 Chronic Secondary malignancies (1 source) Secondary malignant neoplasm of other specified sites; Translations: [Secondary malignant neoplasm of chest wall (HCC)] Onset: 5 Chronic Secondary malignancies (1 source) Secondary malignant neoplasm of right lung; Translations: [Secondary malignant neoplasm of right lung (HCC)] Onset: 4 Chronic Substance-related disorders (1 source) Nicotine dependence, cigarettes, uncomplicated; Translations: [NICOTINE DEPEND CIGARETTES UNCOMP] Onset: 3 Chronic Thyroid disorders (20 sources) Acquired hypothyroidism; Translations: [Hypothyroidism, unspecified] Onset: 4 05-10-2024 Chronic Unclassified (5 sources) Asymptomatic microscopic hematuria 08-24-2021 Unclassified (1 source) CONTACT W/AND (SUSP) EXPOS COVID-19; Translations: [CONTACT W/AND (SUSP) EXPOS COVID-19] Onset: 3 Unclassified (1 source) Encounter for observation for other suspected diseases and conditions ruled out; Translations: [Encounter for observation for other suspected diseases and conditions ruled out] Onset: 3 Unclassified (1 source) Subacute cough; Translations: [Subacute cough] Onset: 5 Unclassified (1 source) Encounter for immunotherapy; Translations: [Encounter for immunotherapy] Onset: 5 Unclassified (1 source) Patient Education Onset: 4 Past or Other Problems Problem Classification Problem Date Documented Da te Episodic/Chronic Cancer of prostate (17 sources) History of malignant neoplasm of prostate; Translations: [Personal history of malignant neoplasm of prostate] Onset: 02-14-2024 02-14-2024 Episodic Genitourinary symptoms and ill-defined conditions (20 sources) Nocturia; Translations: [Poor stream of urine] Onset: 04-09-2023 Resolved: 04-09-2023 06-10-2022 Episodic Malaise and fatigue (12 sources) Malaise and fatigue; Translations: [Other malaise] Onset: 01-24-2025 09-22-2023 Episodic Neoplasms of unspecified nature or uncertain behavior (5 sources) Neoplasm of lung ; Translations: [Neoplasm of unspecified behavior of respiratory system] Onset: 10-31-2024 09-06-2023 Episodic Other and unspecified benign neoplasm (20 sources) Adenomatous polyp of colon ; Translations: [Benign neoplasm of colon, unspecified] Onset: 04-09-2023 Resolved: 04-09-2023 12-17-2020 Episodic Other and unspecified benign neoplasm (17 sources) Polyp of colon; Translations: [Polyp of colon] Onset: 02-14-2024 02-14-2024 Episodic Other ear and sense organ disorders (19 sources) Acute otitis externa; Translations: [Swimmer's ear, right ear] Onset: 05-12-2023 05-12-2023 Episodic Other ear and sense organ disorders (17 sources) Ear problem; Translations: [Unspecified disorder of ear, unspecified ear] Onset: 02-14-2024 02-14-2024 Episodic Other ear and sense organ disorders (19 sources) Otorrhea; Translations: [Otorrhea, right ear] Onset: 04-19-2024 04-19-2024 Episodic Other skin disorders (20 sources) Mass of neck; Translations: [Localized swelling, mass and lump, neck] Onset: 02-24-2023 Resolved: 02-24-2023 02-24-2023 Episodic Residual codes; unclassified (20 sources) Family history of prostate cancer; Translations: [Family history of malignant neoplasm of prostate] Onset: 04-09-2023 Resolved: 04-09-2023 08-24-2021 Episodic Residual codes; unclassified (1 source) Family history of malignant neoplasm of prostate; Translations: [FAMILY HX MALIG NEOPLASM PROSTATE] Onset: 04-21-2022 Episodic Screening and history of mental health and substance abuse codes (20 sources) Ex-smoker; Translations: [Personal history of nicotine dependence] Onset: 05-14-2024 05-14-2024 Episodic Results Test Name Value Interpretation Reference Range Facil ity CNOVon 06-05-2025 CNOV Normal [facility] CBC W Auto Differential pane l (Bld)on 05-29-2025 Basophils (Bld) [#/Vol] 0.08 10*3/uL [facility] Basophils/100 WBC (Bld) 0.8 % [facility] Differential cell count method Nom (Bld) Auto [facility] Eosinophils (Bld) [#/Vol] 1.65 10*3/uL High [facility] Eosinophils/100 WBC (Bld) 17.1 % [facility] Erythrocyte distribution width (RBC) [Ratio] 13.2 % 11.5 - 15.0 % [facility] Hematocrit (Bld) [Volume fraction] 39.9 % 39.0 - 51.0 % [facility] Hemoglobin (Bld) [Mass/Vol] 13.1 g/dL 13.0 - 17.0 g/dL [facility] Immature granulocytes (Bld) [#/Vol] 0.07 10*3/uL [facility] Immature granulocytes/100 WBC (Bld) 0.7 % [facility] Interpretation and review of laboratory results Abnormal [facility] Lymphocytes (Bld) [#/Vol] 1.29 10*3/uL [facility] Lymphocytes/100 WBC (Bld) 13.4 % [facility] MCH (RBC) [Entitic mass] 26.7 pg 26.0 - 34.0 pg [facility] MCHC (RBC) [Mass/Vol] 32.8 g/dL 30.5 - 36.0 g/dL [facility] MCV (RBC) [Entitic vol] 81.4 fL 80.0 - 100.0 fL [facility] Monocytes (Bld) [#/Vol] 0.74 10*3/uL NINF [facility] Monocytes/100 WBC (Bld) 7.7 % [facility] Neutrophils (Bld) [#/Vol] 5.82 10*3/uL [facility] Neutrophils/100 WBC (Bld) 60.3 % [facility] Nucleated RBC (Bld) [#/Vol] NINF [facility] Nucleated RBC/100 WBC (Bld) [Ratio] 0.0 % /100 WBC [facility] Platelet mean volume (Bld) [Entitic vol] 8.3 fL Low 9.0 - 12.7 fL [facility] Platelets (Bld) [#/Vol] 226 10*3/uL [facility] RBC (Bld) [#/Vol] 4.90 10*6/uL 4.20 - 6.00 m/uL [facility] WBC (Bld) [#/Vol] 9.65 10*3/uL [facility] Basophils (Bld) [#/Vol] 0.08 10*3/uL Normal <0.11 [facility] Comment on above: Order Comment: Speci men Type: BLOOD SPECIMENOrdering Facility: [facility] Address: [address] [place] [address] Performed By: #### 5 7021-8 ####[facility] LABCLIA [id number] [place] [address] Basophils/100 WBC (Bld) 0.8 % Normal [facility] Comment on above: Order Comment: Speci men Type: BLOOD SPECIMENOrdering Facility: [facility] Address: [address] [place] [address] Performed By: #### 5 7021-8 ####[facility] LABCLIA [id number] [place] [address] Differential cell count method Nom (Bld) Auto Normal [facility] Comment on above: Order Comment: Speci men Type: BLOOD SPECIMENOrdering Facility: [facility] Address: [address] [place] [address] Performed By: #### 5 7021-8 ####[facility] LABCLIA [id number] [place] [address] Eosinophils (Bld) [#/Vol] 1.65 10*3/uL High <0.46 [facility] Comment on above: Order Comment: Speci men Type: BLOOD SPECIMENOrdering Facility: [facility] Address: [address] [place] [address] Performed By: #### 5 7021-8 ####[facility] LABCLIA [id number] [place] [address] Eosinophils/100 WBC (Bld) 17.1 % Normal [facility] Comment on above: Order Comment: Speci men Type: BLOOD SPECIMENOrdering Facility: [facility] Address: [address] [place] [address] Performed By: #### 5 7021-8 ####[facility] LABCLIA [id number] [place] [address] Erythrocyte distribution width (RBC) [Ratio] 13.2 % Normal 11.5-15.0 [facility] Comment on above: Order Comment: Speci men Type: BLOOD SPECIMENOrdering Facility: [facility] Address: [address] [place] [address] Performed By: #### 5 7021-8 ####[facility] LABCLIA [id number] [place] [address] Hematocrit (Bld) [Volume fraction] 39.9 % Normal 39.0-51.0 [facility] Comment on above: Order Comment: Speci men Type: BLOOD SPECIMENOrdering Facility: [facility] Address: [address] [place] [address] Performed By: #### 5 7021-8 ####[facility] LABIA [id number] [place] [address] Hemoglobin (Bld) [Mass/Vol] 13.1 g/dL Normal 13.0-17.0 [facility] Comment on above: Order Comment: Speci men Type: BLOOD SPECIMENOrdering Facility: [facility] Address: [address] [place] [address] Performed By: #### 5 7021-8 ####[facility] LABCLIA [id number] [place] [address] Immature granulocytes (Bld) [#/Vol] 0.07 10*3/uL Normal <0.10 [facility] Comment on above: Order Comment: Speci men Type: BLOOD SPECIMENOrdering Facility: [facility] Address: [address] [place] [address] Performed By: #### 5 7021-8 ####[facility] LABCLIA [id number] [place] [address] Immature granulocytes/100 WBC (Bld) 0.7 % Normal [facility] Comment on above: Order Comment: Speci men Type: BLOOD SPECIMENOrdering Facility: [facility] Address: [address] [place] [address] Performed By: #### 5 7021-8 ####[facility] LABCLIA [id number] [place] [address] Lymphocytes (Bld) [#/Vol] 1.29 10*3/uL Normal 1.00-4.00 [facility] Comment on above: Order Comment: Speci men Type: BLOOD SPECIMENOrdering Facility: [facility] Address: [address] [place] [address] Performed By: #### 5 7021-8 ####[facility] LABCLIA [id number] [place] [address] Lymphocytes/100 WBC (Bld) 13.4 % Normal [facility] Comment on above: Order Comment: Speci men Type: BLOOD SPECIMENOrdering Facility: [facility] Address: [address] [place] [address] Performed By: #### 5 7021-8 ####[facility] LABCLIA [id number] [place] [address] MCH (RBC) [Entitic mass] 26.7 pg Normal 26.0-34.0 [facility] Comment on above: Order Comment: Speci men Type: BLOOD SPECIMENOrdering Facility: [facility] Address: [address] [place] [address] Performed By: #### 5 7021-8 ####[facility] LABCLIA [id number] [place] [address] MCHC (RBC) [Mass/Vol] 32.8 g/dL Normal 30.5-36.0 [facility] Comment on above: Order Comment: Speci men Type: BLOOD SPECIMENOrdering Facility: [facility] Address: [address] [place] [address] Performed By: #### 5 7021-8 ####[facility] LABIA [id number] [place] [address] MCV (RBC) [Entitic vol] 81.4 fL Normal 80.0-100.0 [facility] Comment on above: Order Comment: Speci men Type: BLOOD SPECIMENOrdering Facility: [facility] Address: [address] [place] [address] Performed By: #### 5 7021-8 ####[facility] LABIA [id number] [place] [address] Monocytes (Bld) [#/Vol] 0.74 10*3/uL Normal <0.87 [facility] Comment on above: Order Comment: Speci men Type: BLOOD SPECIMENOrdering Facility: [facility] Address: [address] [place] [address] Performed By: #### 5 7021-8 ####[facility] LABIA [id number] [place] [address] Monocytes/100 WBC (Bld) 7.7 % Normal [facility] Comment on above: Order Comment: Speci men Type: BLOOD SPECIMENOrdering Facility: [facility] Address: [address] [place] [address] Performed By: #### 5 7021-8 ####[facility] LABCLIA [id number] [place] [address] Neutrophils (Bld) [#/Vol] 5.82 10*3/uL Normal 1.45-7.50 [facility] Comment on above: Order Comment: Speci men Type: BLOOD SPECIMENOrdering Facility: [facility] Address: [address] [place] [address] Performed By: #### 5 7021-8 ####[facility] LABCLIA [id number] [place] [address] Neutrophils/100 WBC (Bld) 60.3 % Normal [facility] Comment on above: Order Comment: Speci men Type: BLOOD SPECIMENOrdering Facility: [facility] Address: [address] [place] [address] Performed By: #### 5 7021-8 ####[facility] LABCLIA [id number] [place] [address] Nucleated RBC (Bld) [#/Vol] 10*3/uL Normal <0.01 [facility] Comment on above: Order Comment: Speci men Type: BLOOD SPECIMENOrdering Facility: [facility] Address: [address] [place] [address] Performed By: #### 5 7021-8 ####[facility] LABCLIA [id number] [place] [address] Nucleated RBC/100 WBC (Bld) [Ratio] 0.0 /100 WBC Normal [facility] Comment on above: Order Comment: Speci men Type: BLOOD SPECIMENOrdering Facility: [facility] Address: [address] [place] [address] Performed By: #### 5 7021-8 ####[facility] LABIA [id number] [place] [address] Platelet mean volume (Bld) [Entitic vol] 8.3 fL Low 9.0-12.7 [facility] Comment on above: Order Comment: Speci men Type: BLOOD SPECIMENOrdering Facility: [facility] Address: [address] [place] [address] Performed By: #### 5 7021-8 ####[facility] LABCLIA [id number] [place] [address] Platelets (Bld) [#/Vol] 226 10*3/uL Normal 150-400 [facility] Comment on above: Order Comment: Speci men Type: BLOOD SPECIMENOrdering Facility: [facility] Address: [address] [place] [address] Performed By: #### 5 7021-8 ####[facility] LABCLIA [id number] [place] [address] RBC (Bld) [#/Vol] 4.90 10*6/uL Normal 4.20-6.00 [facility] Comment on above: Order Comment: Speci men Type: BLOOD SPECIMENOrdering Facility: [facility] Address: [address] [place] [address] Performed By: #### 5 7021-8 ####[facility] LABIA [id number] [place] [address] WBC (Bld) [#/Vol] 9.65 10*3/uL Normal 3.70-11.00 [facility] Comment on above: Order Comment: Speci men Type: BLOOD SPECIMENOrdering Facility: [facility] Address: [address] [place] [address] Performed By: #### 5 7021-8 ####[facility] LABIA [id number] [place] [address] CNOVSPon 05-29-2025 CNOVSP Normal [facility] CNPNon 05-29-2025 CNPN Normal [facility] CORTISOL, SERUMon 05-29-2025 Cortisol [Mass/Vol] 13.1 ug/dL 4.8 - 19.5 ug/dL [facility] Comment on above: Provided reference r dru is from 6-10 AM sample collection time. Cortisol Reference Range: 6-10 AM = 4.8-19.5 ug/dL, 4-8 PM = 2.5-11.9 ug/dL CT CHEST W IVCONon CT CHEST W IVCON Normal [facility] metabolic 2000 panelOrdered By: Boo Nava on 05-29-2025 Albumin [Mass/Vol] 4.1 g/dL 3.9 - 4.9 g/dL [facility] ALP [Catalytic activity/Vol] 110 U/L 38 - 113 U/L [facility] ALT [Catalytic activity/Vol] 9 U/L Low 10 - 54 U/L [facility] Anion gap [Moles/Vol] 10 mmol/L 8 - 15 mmol/L [facility] AST [Catalytic activity/Vol] 12 U/L Low 14 - 40 U/L [facility] Bilirubin [Mass/Vol] 0.2 mg/dL 0.2 - 1.3 mg/dL [facility] Calcium [Mass/Vol] 9.9 mg/dL 8.5 - 10.2 mg/dL [facility] Chloride [Moles/Vol] 105 mmol/L 98 - 107 mmol/L [facility] CO2 [Moles/Vol] 24 mmol/L 22 - 30 mmol/L [facility] Creatinine [Mass/Vol] 1.38 mg/dL High 0.73 - 1.22 mg/dL [facility] GFR/1.73 sq M.predicted among non-blacks MDRD (S/P/Bld) [Vol rate/Area] 59 mL/min/{1.73_m2} Low - PINF [facility] Comment on above: Estimated Glomerular Filtration Rate [...] not accurately reflect actual GFR. Glucose [Mass/Vol] 110 mg/dL High 74 - 99 mg/dL [facility] Comment on above: The [place] Diab[employer] Association (ADA) provides guidance for [...] Standards of Medical Care in Diabetes 2016, [place] [employer]. Diabetes Care. 2016.39(Suppl 1). Interpretation and review of laboratory results Abnormal [facility] Potassium [Moles/Vol] 4.1 mmol/L 3.7 - 5.1 mmol/L [facility] Protein [Mass/Vol] 6.7 g/dL 6.3 - 8.0 g/dL [facility] Sodium [Moles/Vol] 139 mmol/L 136 - 144 mmol/L [facility] Urea nitrogen [Mass/Vol] 19 mg/dL 9 - 24 mg/dL [facility] Comprehensive metabolic 2000 panelon 05-29-2025 Albumin [Mass/Vol] 4.1 g/dL Normal 3.9-4.9 [facility] Comment on above: Order Comment: Speci men Type: BLOOD SPECIMENOrdering Facility: [facility] Address: [address] [place] [address] Performed By: #### 2 4323-8 ####[facility] LABCLIA [id number] [place] [address] ALP [Catalytic activity/Vol] 110 U/L Normal 38-113 [facility] Comment on above: Order Comment: Speci men Type: BLOOD SPECIMENOrdering Facility: [facility] Address: [address] [id number] Performed By: #### 2 4323-8 ####[facility] LABCLIA [id number] [place] [address] ALT [Catalytic activity/Vol] 9 U/L Low 10-54 [facility] Comment on above: Order Comment: Speci men Type: BLOOD SPECIMENOrdering Facility: [facility] Address: [address] [id number] Performed By: #### 2 4323-8 ####[facility] LABCLIA [id number] [place] [address] Anion gap [Moles/Vol] 10 mmol/L Normal 8-15 [facility] Comment on above: Order Comment: Speci men Type: BLOOD SPECIMENOrdering Facility: [facility] Address: [address] [place] [address] Performed By: #### 2 4323-8 ####[facility] LABCLIA [id number] [place] [address] AST [Catalytic activity/Vol] 12 U/L Low 14-40 [facility] Comment on above: Order Comment: Speci men Type: BLOOD SPECIMENOrdering Facility: [facility] Address: [address] [place] [address] Performed By: #### 2 4323-8 ####[facility] LABCLIA [id number] [place] [address] Bilirubin [Mass/Vol] 0.2 mg/dL Normal 0.2-1.3 [facility] Comment on above: Order Comment: Speci men Type: BLOOD SPECIMENOrdering Facility: [facility] Address: [address] [place] [address] Performed By: #### 2 4323-8 ####[facility] LABCLIA [id number] [place] [address] Calcium [Mass/Vol] 9.9 mg/dL Normal 8.5-10.2 [facility] Comment on above: Order Comment: Speci men Type: BLOOD SPECIMENOrdering Facility: [facility] Address: [address] [place] [address] Performed By: #### 2 4323-8 ####[facility] LABCLIA [id number] [place] [address] Chloride [Moles/Vol] 105 mmol/L Normal 98-107 [facility] Comment on above: Order Comment: Speci men Type: BLOOD SPECIMENOrdering Facility: [facility] Address: [address] [place] [address] Performed By: #### 2 4323-8 ####[facility] LABCLIA [id number] [place] [address] CO2 [Moles/Vol] 24 mmol/L Normal 22-30 [facility] Comment on above: Order Comment: Speci men Type: BLOOD SPECIMENOrdering Facility: [facility] Address: [address] [place] [address] Performed By: #### 2 4323-8 ####[facility] LABCLIA [id number] [place] [address] Creatinine [Mass/Vol] 1.38 mg/dL High 0.73-1.22 [facility] Comment on above: Order Comment: Speci men Type: BLOOD SPECIMENOrdering Facility: [facility] Address: [address] [place] [address] Performed By: #### 2 4323-8 ####[facility] LABCLIA [id number] [place] [address] eGFRcr SerPlBld CKD-EPI 2020 59 mL/min/1.73m??? Low >=60 [facility] Comment on above: Order Comment: Speci men Type: BLOOD SPECIMENOrdering Facility: [facility] Address: [address] [place] [address] Result Comment: Torri mated Glomerular Filtration Rate [...] actual GFR. Performed By: #### 2 4323-8 ####[facility] LABCLIA [id number] [place] [address] Glucose [Mass/Vol] 110 mg/dL High 74-99 [facility] Comment on above: Order Comment: Speci men Type: BLOOD SPECIMENOrdering Facility: [facility] Address: [address] [place], [place] [id number] Result Comment: The [place] Diabetes Association (ADA) provides guidance for cutoff [...] Standards of Medical Care in Diabetes 2016, [place] [employer]. Diabetes Care. 2016.39(Suppl 1). Performed By: #### 2 4323-8 ####[facility] LABCLIA [id number] [place] [address] Potassium [Moles/Vol] 4.1 mmol/L Normal 3.7-5.1 [facility] Comment on above: Order Comment: Speci men Type: BLOOD SPECIMENOrdering Facility: [facility] Address: [address] [place] [address] Performed By: #### 2 4323-8 ####[facility] LABCLIA [id number] [place] [address] Protein [Mass/Vol] 6.7 g/dL Normal 6.3-8.0 [facility] Comment on above: Order Comment: Speci men Type: BLOOD SPECIMENOrdering Facility: [facility] Address: [address] [place], [place] [address] Performed By: #### 2 4323-8 ####[facility] LABCLIA [id number] [place] [address] Sodium [Moles/Vol] 139 mmol/L Normal 136-144 [facility] Comment on above: Order Comment: Speci men Type: BLOOD SPECIMENOrdering Facility: [facility] Address: [address] [place], [place] [address] Performed By: #### 2 4323-8 ####[facility] LABCLIA [id number] [place] [address] Urea nitrogen [Mass/Vol] 19 mg/dL Normal 9-24 [facility] Comment on above: Order Comment: Speci men Type: BLOOD SPECIMENOrdering Facility: [facility] Address: [address] [place] [address] Performed By: #### 2 4323-8 ####[facility] LABCLIA [id number] [place] [address] Alayna Ramírezl-Uyenncon 05-29-20 25 Cortisol [Mass/Vol] 13.1 ug/dL Normal 4.8-19.5 [facility] Comment on above: Order Comment: Speci men Type: BLOOD SPECIMENOrdering Facility: [facility] Address: [address] [place] [address] Result Comment: Prov ided reference range is from 6-10 AM sample collection time.Cortisol Reference Range: 6-10 AM = 4.8-19.5 ug/dL, 4-8 PM = 2.5-11.9 ug/dL Performed By: #### 2 143-6, 3016-3 ####[facility] LABCLIA [id number] [place] [address] [place] HbA1c (Bld)on 05-29-2025 Average glucose Estimated from glycated hemoglobin (Bld) [Mass/Vol] 114 mg/dL [facility] Comment on above: eAG: (Estimated aver age glucose) is a calculated value from HgbA1c and is primary care sales representative of the average blood glucose level in the last 2-3 month period. HbA1c (Bld) [Mass fraction] 5.6 % 4.3 - 5.6 % [facility] Comment on above: [place] Diabetes As sociation guidelines indicate that patients with HgbA1c in the range 5.7-6.4% are at increased risk for development of diabetes, and intervention by lifestyle modification may be beneficial. HgbA1c greater or equal to 6.5% is considered diagnostic of diabetes. [facility] Average glucose Estimated from glycated hemoglobin (Bld) [Mass/Vol] 114 mg/dL Normal [facility] Comment on above: Order Comment: Speci men Type: BLOOD SPECIMENOrdering Facility: [facility] Address: [address] [place] [address] Result Comment: eAG: (Estimated average glucose) is a calculated value from HgbA1c and is primary care sales representative of the average blood glucose level in the last 2-3 month period. Performed By: #### 5 5454-3 ####[facility] LABCLIA [id number] [place] [address] [place] HbA1c (Bld) [Mass fraction] 5.6 % Normal 4.3-5.6 [facility] Comment on above: Order Comment: Richard perez Type: BLOOD SPECIMENOrdering Facility: [facility] Address: [address] [place] [address] Result Comment: [place] Diabetes Association guidelines indicate that patients with HgbA1c in the range 5.7-6.4% are at increased risk for development of diabetes, and intervention by lifestyle modification may be beneficial. HgbA1c greater or equal to 6.5% is considered diagnostic of diabetes. Performed By: #### 5 5454-3 ####[facility] LABCLIA [id number] [address] [place] No Panel Informationon 05-29 Interpretation and review of laboratory results Normal [facility] THYROID STIMULATING HORMONEo n 05-29-2025 TSH Qn 2.890 m[IU]/L [facility] TSH SerPl-aCncon 05-29-2025 TSH Qn 2.890 m[IU]/L Normal 0.270-4.200 [facility] Comment on above: Order Comment: Richard perez Type: BLOOD SPECIMENOrdering Facility: [facility] Address: [address] [place] [address] Performed By: #### 2 143-6, 3016-3 ####[facility] LABCLIA [id number] [address] [place] CNPNon 05-06-2025 CNPN Normal [facility] CBC W Auto Differential pane l (Bld)on 04-18-2025 Basophils (Bld) [#/Vol] 0.04 10*3/uL [facility] Basophils/100 WBC (Bld) 0.4 % [facility] Differential cell count method Nom (Bld) Auto [facility] Eosinophils (Bld) [#/Vol] 2.18 10*3/uL High [facility] Eosinophils/100 WBC (Bld) 24.2 % [facility] Erythrocyte distribution width (RBC) [Ratio] 13.8 % 11.5 - 15.0 % [facility] Hematocrit (Bld) [Volume fraction] 36.4 % Low 39.0 - 51.0 % [facility] Hemoglobin (Bld) [Mass/Vol] 12 g/dL Low 13.0 - 17.0 g/dL [facility] Immature granulocytes (Bld) [#/Vol] [facility] Immature granulocytes/100 WBC (Bld) 0.2 % [facility] Interpretation and review of laboratory results Abnormal [facility] Lymphocytes (Bld) [#/Vol] 1.14 10*3/uL [facility] Lymphocytes/100 WBC (Bld) 12.7 % [facility] MCH (RBC) [Entitic mass] 27 pg 26.0 - 34.0 pg [facility] MCHC (RBC) [Mass/Vol] 33 g/dL 30.5 - 36.0 g/dL [facility] MCV (RBC) [Entitic vol] 81.8 fL 80.0 - 100.0 fL [facility] Monocytes (Bld) [#/Vol] 0.63 10*3/uL [facility] Monocytes/100 WBC (Bld) 7 % [facility] Neutrophils (Bld) [#/Vol] 5 10*3/uL [facility] Neutrophils/100 WBC (Bld) 55.5 % [facility] Nucleated RBC (Bld) [#/Vol] [facility] Nucleated RBC/100 WBC (Bld) [Ratio] 0 % /100 WBC [facility] Platelet mean volume (Bld) [Entitic vol] 8.4 fL Low 9.0 - 12.7 fL [facility] Platelets (Bld) [#/Vol] 192 10*3/uL [facility] RBC (Bld) [#/Vol] 4.45 10*6/uL 4.20 - 6.00 m/uL [facility] WBC (Bld) [#/Vol] 9.01 10*3/uL [facility] Basophils (Bld) [#/Vol] 0.04 10*3/uL Normal <0.11 [facility] Comment on above: Order Comment: Speci men Type: BLOOD SPECIMENOrdering Facility: [facility] Address: [address] [place] [address] Performed By: #### 5 7021-8 ####[facility] LABCLIA [id number] [place] [address] Basophils/100 WBC (Bld) 0.4 % Normal [facility] Comment on above: Order Comment: Speci men Type: BLOOD SPECIMENOrdering Facility: [facility] Address: [address] [place] [address] Performed By: #### 5 7021-8 ####[facility] LABCLIA [id number] [place] [address] Differential cell count method Nom (Bld) Auto Normal [facility] Comment on above: Order Comment: Speci men Type: BLOOD SPECIMENOrdering Facility: [facility] Address: [address] [place] [address] Performed By: #### 5 7021-8 ####[facility] LABCLIA [id number] [place] [address] Eosinophils (Bld) [#/Vol] 2.18 10*3/uL High <0.46 [facility] Comment on above: Order Comment: Speci men Type: BLOOD SPECIMENOrdering Facility: [facility] Address: [address] [place] [address] Performed By: #### 5 7021-8 ####[facility] LABCLIA [id number] [place] [address] Eosinophils/100 WBC (Bld) 24.2 % Normal [facility] Comment on above: Order Comment: Speci men Type: BLOOD SPECIMENOrdering Facility: [facility] Address: [address] [place] [address] Performed By: #### 5 7021-8 ####[facility] LABCLIA [id number] [place] [address] Erythrocyte distribution width (RBC) [Ratio] 13.8 % Normal 11.5-15.0 [facility] Comment on above: Order Comment: Speci men Type: BLOOD SPECIMENOrdering Facility: [facility] Address: [address] [place] [address] Performed By: #### 5 7021-8 ####[facility] LABCLIA [id number] [place] [address] Hematocrit (Bld) [Volume fraction] 36.4 % Low 39.0-51.0 [facility] Comment on above: Order Comment: Speci men Type: BLOOD SPECIMENOrdering Facility: [facility] Address: [address] [place] [address] Performed By: #### 5 7021-8 ####[facility] LABCLIA [id number] [place] [address] Hemoglobin (Bld) [Mass/Vol] 12.0 g/dL Low 13.0-17.0 [facility] Comment on above: Order Comment: Speci men Type: BLOOD SPECIMENOrdering Facility: [facility] Address: [address] [place] [address] Performed By: #### 5 7021-8 ####[facility] LABCLIA [id number] [place] [address] Immature granulocytes (Bld) [#/Vol] 10*3/uL Normal <0.10 [facility] Comment on above: Order Comment: Speci men Type: BLOOD SPECIMENOrdering Facility: [facility] Address: [address] [place] [address] Performed By: #### 5 7021-8 ####[facility] LABCLIA [id number] [place] [address] Immature granulocytes/100 WBC (Bld) 0.2 % Normal [facility] Comment on above: Order Comment: Speci men Type: BLOOD SPECIMENOrdering Facility: [facility] Address: [address] [place] [address] Performed By: #### 5 7021-8 ####[facility] LABCLIA [id number] [place] [address] Lymphocytes (Bld) [#/Vol] 1.14 10*3/uL Normal 1.00-4.00 [facility] Comment on above: Order Comment: Speci men Type: BLOOD SPECIMENOrdering Facility: [facility] Address: [address] [place] [address] Performed By: #### 5 7021-8 ####[facility] LABCLIA [id number] [place] [address] Lymphocytes/100 WBC (Bld) 12.7 % Normal [facility] Comment on above: Order Comment: Speci men Type: BLOOD SPECIMENOrdering Facility: [facility] Address: [address] [place] [address] Performed By: #### 5 7021-8 ####[facility] LABCLIA [id number] [place] [address] MCH (RBC) [Entitic mass] 27.0 pg Normal 26.0-34.0 [facility] Comment on above: Order Comment: Speci men Type: BLOOD SPECIMENOrdering Facility: [facility] Address: [address] [place] [address] Performed By: #### 5 7021-8 ####[facility] LABIA [id number] [place] [address] MCHC (RBC) [Mass/Vol] 33.0 g/dL Normal 30.5-36.0 [facility] Comment on above: Order Comment: Speci men Type: BLOOD SPECIMENOrdering Facility: [facility] Address: [address] [place] [address] Performed By: #### 5 7021-8 ####[facility] LABCLIA [id number] [place] [address] MCV (RBC) [Entitic vol] 81.8 fL Normal 80.0-100.0 [facility] Comment on above: Order Comment: Speci men Type: BLOOD SPECIMENOrdering Facility: [facility] Address: [address] [place] [address] Performed By: #### 5 7021-8 ####[facility] LABCLIA [id number] [place] [address] Monocytes (Bld) [#/Vol] 0.63 10*3/uL Normal <0.87 [facility] Comment on above: Order Comment: Speci men Type: BLOOD SPECIMENOrdering Facility: [facility] Address: [address] [place] [address] Performed By: #### 5 7021-8 ####[facility] LABCLIA [id number] [place] [address] Monocytes/100 WBC (Bld) 7.0 % Normal [facility] Comment on above: Order Comment: Speci men Type: BLOOD SPECIMENOrdering Facility: [facility] Address: [address] [place] [address] Performed By: #### 5 7021-8 ####[facility] LABCLIA [id number] [place] [address] Neutrophils (Bld) [#/Vol] 5.00 10*3/uL Normal 1.45-7.50 [facility] Comment on above: Order Comment: Speci men Type: BLOOD SPECIMENOrdering Facility: [facility] Address: [address] [place] [address] Performed By: #### 5 7021-8 ####[facility] LABCLIA [id number] [place] [address] Neutrophils/100 WBC (Bld) 55.5 % Normal [facility] Comment on above: Order Comment: Speci men Type: BLOOD SPECIMENOrdering Facility: [facility] Address: [address] [place] [address] Performed By: #### 5 7021-8 ####[facility] LABCLIA [id number] [place] [address] Nucleated RBC (Bld) [#/Vol] 10*3/uL Normal <0.01 [facility] Comment on above: Order Comment: Speci men Type: BLOOD SPECIMENOrdering Facility: [facility] Address: [address] [place] [address] Performed By: #### 5 7021-8 ####[facility] LABCLIA [id number] [place] [address] Nucleated RBC/100 WBC (Bld) [Ratio] 0.0 /100 WBC Normal [facility] Comment on above: Order Comment: Speci men Type: BLOOD SPECIMENOrdering Facility: [facility] Address: [address] [place] [address] Performed By: #### 5 7021-8 ####[facility] LABCLIA [id number] [place] [address] Platelet mean volume (Bld) [Entitic vol] 8.4 fL Low 9.0-12.7 [facility] Comment on above: Order Comment: Speci men Type: BLOOD SPECIMENOrdering Facility: [facility] Address: [address] [place] [address] Performed By: #### 5 7021-8 ####[facility] LABCLIA [id number] [place] [address] Platelets (Bld) [#/Vol] 192 10*3/uL Normal 150-400 [facility] Comment on above: Order Comment: Speci men Type: BLOOD SPECIMENOrdering Facility: [facility] Address: [address] [place] [address] Performed By: #### 5 7021-8 ####[facility] LABCLIA [id number] [place] [address] RBC (Bld) [#/Vol] 4.45 10*6/uL Normal 4.20-6.00 [facility] Comment on above: Order Comment: Speci men Type: BLOOD SPECIMENOrdering Facility: [facility] Address: [address] [place] [address] Performed By: #### 5 7021-8 ####[facility] LABCLIA [id number] [place] [address] WBC (Bld) [#/Vol] 9.01 10*3/uL Normal 3.70-11.00 [facility] Comment on above: Order Comment: Speci men Type: BLOOD SPECIMENOrdering Facility: [facility] Address: [address] [place], [place] [address] [address] Performed By: #### 5 7021-8 ####[facility] LABCLIA [id number] [place] [address] Comprehensive metabolic 2000 panelOrdered By: Boo Nava on 04-18-2025 Albumin [Mass/Vol] 4.1 g/dL 3.9 - 4.9 g/dL [facility] ALP [Catalytic activity/Vol] 99 U/L 38 - 113 U/L [facility] ALT [Catalytic activity/Vol] 9 U/L Low 10 - 54 U/L [facility] Anion gap [Moles/Vol] 10 mmol/L 8 - 15 mmol/L [facility] AST [Catalytic activity/Vol] 11 U/L Low 14 - 40 U/L [facility] Bilirubin [Mass/Vol] 0.3 mg/dL 0.2 - 1.3 mg/dL [facility] Calcium [Mass/Vol] 9.6 mg/dL 8.5 - 10.2 mg/dL [facility] Chloride [Moles/Vol] 104 mmol/L 98 - 107 mmol/L [facility] CO2 [Moles/Vol] 24 mmol/L 22 - 30 mmol/L [facility] Creatinine [Mass/Vol] 1.61 mg/dL High 0.73 - 1.22 mg/dL [facility] GFR/1.73 sq M.predicted among non-blacks MDRD (S/P/Bld) [Vol rate/Area] 49 mL/min/{1.73_m2} Low - PINF [facility] Comment on above: Estimated Glomerular Filtration Rate [...] not accurately reflect actual GFR. Glucose [Mass/Vol] 114 mg/dL High 74 - 99 mg/dL [facility] Comment on above: The [place] Diabete s Association (ADA) provides guidance for [...] Standards of Medical Care in Diabetes 2016, [place] Diabetes Association. Diabetes Care. 2016.39(Suppl 1). Interpretation and review of laboratory results Abnormal [facility] Potassium [Moles/Vol] 3.9 mmol/L 3.7 - 5.1 mmol/L [facility] Protein [Mass/Vol] 6.6 g/dL 6.3 - 8.0 g/dL [facility] Sodium [Moles/Vol] 138 mmol/L 136 - 144 mmol/L [facility] Urea nitrogen [Mass/Vol] 19 mg/dL 9 - 24 mg/dL [facility] Comprehensive metabolic 2000 panelon 04-18-2025 Albumin [Mass/Vol] 4.1 g/dL Normal 3.9-4.9 [facility] Comment on above: Order Comment: Speci men Type: BLOOD SPECIMENOrdering Facility: [facility] Address: [address] [place] [address] Performed By: #### 2 4323-8 ####[facility] LABCLIA [id number] [place] [address] ALP [Catalytic activity/Vol] 99 U/L Normal 38-113 [facility] Comment on above: Order Comment: Speci men Type: BLOOD SPECIMENOrdering Facility: [facility] Address: [address] [place] [address] Performed By: #### 2 4323-8 ####[facility] LABCLIA [id number] [place] [address] ALT [Catalytic activity/Vol] 9 U/L Low 10-54 [facility] Comment on above: Order Comment: Speci men Type: BLOOD SPECIMENOrdering Facility: [facility] Address: [address] [place] [address] Performed By: #### 2 4323-8 ####[facility] LABCLIA [id number] [place] [address] Anion gap [Moles/Vol] 10 mmol/L Normal 8-15 [facility] Comment on above: Order Comment: Speci men Type: BLOOD SPECIMENOrdering Facility: [facility] Address: [address] [place] [address] Performed By: #### 2 4323-8 ####[facility] LABCLIA [id number] [place] [address] AST [Catalytic activity/Vol] 11 U/L Low 14-40 [facility] Comment on above: Order Comment: Speci men Type: BLOOD SPECIMENOrdering Facility: [facility] Address: [address] [place] [address] Performed By: #### 2 4323-8 ####[facility] LABCLIA [id number] [place] [address] Bilirubin [Mass/Vol] 0.3 mg/dL Normal 0.2-1.3 [facility] Comment on above: Order Comment: Speci men Type: BLOOD SPECIMENOrdering Facility: [facility] Address: [address] [place] [address] Performed By: #### 2 4323-8 ####[facility] LABCLIA [id number] [place] [address] Calcium [Mass/Vol] 9.6 mg/dL Normal 8.5-10.2 [facility] Comment on above: Order Comment: Speci men Type: BLOOD SPECIMENOrdering Facility: [facility] Address: [address] [place] [address] Performed By: #### 2 4323-8 ####[facility] LABCLIA [id number] [place] [address] Chloride [Moles/Vol] 104 mmol/L Normal 98-107 [facility] Comment on above: Order Comment: Speci men Type: BLOOD SPECIMENOrdering Facility: [facility] Address: [address] [place] [address] Performed By: #### 2 4323-8 ####[facility] LABCLIA [id number] [place] [address] CO2 [Moles/Vol] 24 mmol/L Normal 22-30 [facility] Comment on above: Order Comment: Speci men Type: BLOOD SPECIMENOrdering Facility: [facility] Address: [address] [place] [address] Performed By: #### 2 4323-8 ####[facility] LABCLIA [id number] [place] [address] Creatinine [Mass/Vol] 1.61 mg/dL High 0.73-1.22 [facility] Comment on above: Order Comment: Speci men Type: BLOOD SPECIMENOrdering Facility: [facility] Address: [address] [place] [address] Performed By: #### 2 4323-8 ####[facility] LABCLIA [id number] [place] [address] Creatinine and Glomerular filtration rate.predicted panel (S/P/Bld) 49 mL/min/1.73m??? Low >=60 [facility] Comment on above: Order Comment: Richard perez Type: BLOOD SPECIMENOrdering Facility: [facility] Address: [address] [place] [address] Result Comment: Torri mated Glomerular Filtration Rate [...] actual GFR. Performed By: #### 2 4323-8 ####[facility] LABCLIA [id number] [place] [address] Glucose [Mass/Vol] 114 mg/dL High 74-99 [facility] Comment on above: Order Comment: Richard perez Type: BLOOD SPECIMENOrdering Facility: [facility] Address: [address] [place] [address] Result Comment: The [place] Diabetes Association (ADA) provides guidance for cutoff [...] Standards of Medical Care in Diabetes 2016, [place] Diabetes Association. Diabetes Care. 2016.39(Suppl 1). Performed By: #### 2 4323-8 ####[facility] LABCLIA [id number] [place] [address] Potassium [Moles/Vol] 3.9 mmol/L Normal 3.7-5.1 [facility] Comment on above: Order Comment: Speci men Type: BLOOD SPECIMENOrdering Facility: [facility] Address: [address] [place] [address] Performed By: #### 2 4323-8 ####[facility] LABCLIA [id number] [place] [address] Protein [Mass/Vol] 6.6 g/dL Normal 6.3-8.0 [facility] Comment on above: Order Comment: Speci men Type: BLOOD SPECIMENOrdering Facility: [facility] Address: [address] [place] [address] Performed By: #### 2 4323-8 ####[facility] LABCLIA [id number] [place] [address] Sodium [Moles/Vol] 138 mmol/L Normal 136-144 [facility] Comment on above: Order Comment: Speci men Type: BLOOD SPECIMENOrdering Facility: [facility] Address: [address] [place] [address] Performed By: #### 2 4323-8 ####[facility] LABCLIA [id number] [place] [address] Urea nitrogen [Mass/Vol] 19 mg/dL Normal 9-24 [facility] Comment on above: Order Comment: Speci men Type: BLOOD SPECIMENOrdering Facility: [facility] Address: [address] [place] [address] Performed By: #### 2 4323-8 ####[facility] LABCLIA [id number] [place] [address] Cortis Brea-Orestes 04-18-20 25 Cortisol [Mass/Vol] 8.9 ug/dL Normal 4.8-19.5 [facility] Comment on above: Order Comment: Speci men Type: BLOOD SPECIMENOrdering Facility: [facility] Address: [address] [place] [address] Result Comment: Prov ided reference range is from 6-10 AM sample collection time.Cortisol Reference Range: 6-10 AM = 4.8-19.5 ug/dL, 4-8 PM = 2.5-11.9 ug/dL Performed By: #### 3 016-3, 6 ####[facility] LABIA [id number] [address] [address] [place] HbA1c (Bld)on 04-18-2025 Average glucose Estimated from glycated hemoglobin (Bld) [Mass/Vol] 97 mg/dL Normal [facility] Comment on above: Order Comment: Speci men Type: BLOOD SPECIMENOrdering Facility: [facility] Address: [address] [place] [address] Result Comment: eAG: (Estimated average glucose) is a calculated value from HgbA1c and is primary care sales representative of the average blood glucose level in the last 2-3 month period. Performed By: #### 5 5454-3 ####[facility] LABIA [id number] [address] [place] HbA1c (Bld) [Mass fraction] 5.0 % Normal 4.3-5.6 [facility] Comment on above: Order Comment: Sharondai men Type: BLOOD SPECIMENOrdering Facility: [facility] Address: [address] [place] [address] Result Comment: [place] Diabetes Association guidelines indicate that patients with HgbA1c in the range 5.7-6.4% are at increased risk for development of diabetes, and intervention by lifestyle modification may be beneficial. HgbA1c greater or equal to 6.5% is considered diagnostic of diabetes. Performed By: #### 5 5454-3 ####[facility] LABIA [id number] [address] [address] [place] TSH SerPl-aCncon 04-18-2025 TSH Qn 2.470 m[IU]/L Normal 0.270-4.200 [facility] Comment on above: Order Comment: Speci men Type: BLOOD SPECIMENOrdering Facility: [facility] Address: [address] [place] [address] Performed By: #### 3 016-3, 2143-03 ####[facility] LABCLIA [id number] [place] [id number] [place] CBC W Auto Differential pane l (Bld)on 03-07-2025 Basophils (Bld) [#/Vol] 0.04 10*3/uL Normal <0.11 [facility] Comment on above: Order Comment: Speci men Type: BLOOD SPECIMENOrdering Facility: [facility] Address: [address] [place] [address] Performed By: #### 5 7021-8 ####[facility] LABCLIA [id number] [place] [address] Basophils/100 WBC (Bld) 0.4 % Normal [facility] Comment on above: Order Comment: Speci men Type: BLOOD SPECIMENOrdering Facility: [facility] Address: [address] [place] [address] Performed By: #### 5 7021-8 ####[facility] LABCLIA [id number] [place] [address] Differential cell count method Nom (Bld) Auto Normal [facility] Comment on above: Order Comment: Speci men Type: BLOOD SPECIMENOrdering Facility: [facility] Address: [address] [place] [address] Performed By: #### 5 7021-8 ####[facility] LABCLIA [id number] [place] [address] Eosinophils (Bld) [#/Vol] 0.68 10*3/uL High <0.46 [facility] Comment on above: Order Comment: Speci men Type: BLOOD SPECIMENOrdering Facility: [facility] Address: [address] [place] [address] Performed By: #### 5 7021-8 ####[facility] LABCLIA [id number] [place] [address] Eosinophils/100 WBC (Bld) 7.4 % Normal [facility] Comment on above: Order Comment: Speci men Type: BLOOD SPECIMENOrdering Facility: [facility] Address: [address] [place] [address] Performed By: #### 5 7021-8 ####[facility] LABCLIA [id number] [place] [address] Erythrocyte distribution width (RBC) [Ratio] 13.3 % Normal 11.5-15.0 [facility] Comment on above: Order Comment: Speci men Type: BLOOD SPECIMENOrdering Facility: [facility] Address: [address] [place] [address] Performed By: #### 5 7021-8 ####[facility] LABCLIA [id number] [place] [address] Hematocrit (Bld) [Volume fraction] 40.1 % Normal 39.0-51.0 [facility] Comment on above: Order Comment: Speci men Type: BLOOD SPECIMENOrdering Facility: [facility] Address: [address] [place] [address] Performed By: #### 5 7021-8 ####[facility] LABCLIA [id number] [place] [address] Hemoglobin (Bld) [Mass/Vol] 12.9 g/dL Low 13.0-17.0 [facility] Comment on above: Order Comment: Speci men Type: BLOOD SPECIMENOrdering Facility: [facility] Address: [address] [place] [address] Performed By: #### 5 7021-8 ####[facility] LABCLIA [id number] [place] [address] Immature granulocytes (Bld) [#/Vol] 0.03 10*3/uL Normal <0.10 [facility] Comment on above: Order Comment: Speci men Type: BLOOD SPECIMENOrdering Facility: [facility] Address: [address] [place] [address] Performed By: #### 5 7021-8 ####[facility] LABCLIA [id number] [place] [address] Immature granulocytes/100 WBC (Bld) 0.3 % Normal [facility] Comment on above: Order Comment: Speci men Type: BLOOD SPECIMENOrdering Facility: [facility] Address: [address] [place] [address] Performed By: #### 5 7021-8 ####[facility] LABCLIA [id number] [place] [address] Lymphocytes (Bld) [#/Vol] 1.45 10*3/uL Normal 1.00-4.00 [facility] Comment on above: Order Comment: Speci men Type: BLOOD SPECIMENOrdering Facility: [facility] Address: [address] [place] [address] Performed By: #### 5 7021-8 ####[facility] LABCLIA [id number] [place] [address] Lymphocytes/100 WBC (Bld) 15.9 % Normal [facility] Comment on above: Order Comment: Speci men Type: BLOOD SPECIMENOrdering Facility: [facility] Address: [address] [place] [address] Performed By: #### 5 7021-8 ####[facility] LABCLIA [id number] [place] [address] MCH (RBC) [Entitic mass] 26.9 pg Normal 26.0-34.0 [facility] Comment on above: Order Comment: Speci men Type: BLOOD SPECIMENOrdering Facility: [facility] Address: [address] [place] [address] Performed By: #### 5 7021-8 ####[facility] LABIA [id number] [place] [address] MCHC (RBC) [Mass/Vol] 32.2 g/dL Normal 30.5-36.0 [facility] Comment on above: Order Comment: Speci men Type: BLOOD SPECIMENOrdering Facility: [facility] Address: [address] [place] [address] Performed By: #### 5 7021-8 ####[facility] LABCLIA [id number] [place] [address] MCV (RBC) [Entitic vol] 83.7 fL Normal 80.0-100.0 [facility] Comment on above: Order Comment: Speci men Type: BLOOD SPECIMENOrdering Facility: [facility] Address: [address] [place] [address] Performed By: #### 5 7021-8 ####[facility] LABCLIA [id number] [place] [address] Monocytes (Bld) [#/Vol] 0.68 10*3/uL Normal <0.87 [facility] Comment on above: Order Comment: Speci men Type: BLOOD SPECIMENOrdering Facility: [facility] Address: [address] [place] [address] Performed By: #### 5 7021-8 ####[facility] LABCLIA [id number] [place] [address] Monocytes/100 WBC (Bld) 7.4 % Normal [facility] Comment on above: Order Comment: Speci men Type: BLOOD SPECIMENOrdering Facility: [facility] Address: [address] [place] [address] Performed By: #### 5 7021-8 ####[facility] LABCLIA [id number] [place] [address] Neutrophils (Bld) [#/Vol] 6.26 10*3/uL Normal 1.45-7.50 [facility] Comment on above: Order Comment: Speci men Type: BLOOD SPECIMENOrdering Facility: [facility] Address: [address] [place] [address] Performed By: #### 5 7021-8 ####[facility] LABCLIA [id number] [place] [address] Neutrophils/100 WBC (Bld) 68.6 % Normal [facility] Comment on above: Order Comment: Speci men Type: BLOOD SPECIMENOrdering Facility: [facility] Address: [address] [place] [address] Performed By: #### 5 7021-8 ####[facility] LABCLIA [id number] [place] [address] Nucleated RBC (Bld) [#/Vol] 10*3/uL Normal <0.01 [facility] Comment on above: Order Comment: Speci men Type: BLOOD SPECIMENOrdering Facility: [facility] Address: [address] [place] [address] Performed By: #### 5 7021-8 ####[facility] LABCLIA [id number] [place] [address] Nucleated RBC/100 WBC (Bld) [Ratio] 0.0 /100 WBC Normal [facility] Comment on above: Order Comment: Speci men Type: BLOOD SPECIMENOrdering Facility: [facility] Address: [address] [place] [address] Performed By: #### 5 7021-8 ####[facility] LABCLIA [id number] [place] [address] Platelet mean volume (Bld) [Entitic vol] 8.2 fL Low 9.0-12.7 [facility] Comment on above: Order Comment: Speci men Type: BLOOD SPECIMENOrdering Facility: [facility] Address: [address] [place] [address] Performed By: #### 5 7021-8 ####[facility] LABIA [id number] [place] [address] Platelets (Bld) [#/Vol] 225 10*3/uL Normal 150-400 [facility] Comment on above: Order Comment: Speci men Type: BLOOD SPECIMENOrdering Facility: [facility] Address: [address] [place] [address] Performed By: #### 5 7021-8 ####[facility] LABCLIA [id number] [place] [address] RBC (Bld) [#/Vol] 4.79 10*6/uL Normal 4.20-6.00 [facility] Comment on above: Order Comment: Speci men Type: BLOOD SPECIMENOrdering Facility: [facility] Address: [address] [place] [address] Performed By: #### 5 7021-8 ####[facility] LABCLIA [id number] [place] [address] WBC (Bld) [#/Vol] 9.14 10*3/uL Normal 3.70-11.00 [facility] Comment on above: Order Comment: Speci men Type: BLOOD SPECIMENOrdering Facility: [facility] Address: [address] [place] [address] Performed By: #### 5 7021-8 ####[facility] LABCLIA [id number] [place] [address] CNOVSPon 03-07-2025 CNOVSP Normal [facility] metabolic 2000 panelon 03-07-2025 Albumin [Mass/Vol] 4.4 g/dL Normal 3.9-4.9 [facility] Comment on above: Order Comment: Speci men Type: BLOOD SPECIMENOrdering Facility: [facility] Address: [address] [place] [address] Performed By: #### 2 4323-8 ####[facility] LABCLIA [id number] [place] [address] ALP [Catalytic activity/Vol] 97 U/L Normal 38-113 [facility] Comment on above: Order Comment: Speci men Type: BLOOD SPECIMENOrdering Facility: [facility] Address: [address] [place], [place] [address] Performed By: #### 2 4323-8 ####[facility] LABCLIA [id number] [place] [address] ALT [Catalytic activity/Vol] 10 U/L Normal 10-54 [facility] Comment on above: Order Comment: Speci men Type: BLOOD SPECIMENOrdering Facility: [facility] Address: [address] [place] [address] Performed By: #### 2 4323-8 ####[facility] LABCLIA [id number] [place] [address] Anion gap [Moles/Vol] 9 mmol/L Normal 8-15 [facility] Comment on above: Order Comment: Speci men Type: BLOOD SPECIMENOrdering Facility: [facility] Address: [address] [place] [address] Performed By: #### 2 4323-8 ####[facility] LABCLIA [id number] [place] [address] AST [Catalytic activity/Vol] 11 U/L Low 14-40 [facility] Comment on above: Order Comment: Speci men Type: BLOOD SPECIMENOrdering Facility: [facility] Address: [address] [place] [address] Performed By: #### 2 4323-8 ####[facility] LABCLIA [id number] [place] [address] Bilirubin [Mass/Vol] 0.3 mg/dL Normal 0.2-1.3 [facility] Comment on above: Order Comment: Speci men Type: BLOOD SPECIMENOrdering Facility: [facility] Address: [address] [place] [address] Performed By: #### 2 4323-8 ####[facility] LABCLIA [id number] [place] [address] Calcium [Mass/Vol] 10.2 mg/dL Normal 8.5-10.2 [facility] Comment on above: Order Comment: Speci men Type: BLOOD SPECIMENOrdering Facility: [facility] Address: [address] [place] [address] Performed By: #### 2 4323-8 ####[facility] LABCLIA [id number] [place] [address] Chloride [Moles/Vol] 100 mmol/L Normal 98-107 [facility] Comment on above: Order Comment: Speci men Type: BLOOD SPECIMENOrdering Facility: [facility] Address: [address] [place] [address] Performed By: #### 2 4323-8 ####[facility] LABCLIA [id number] [place] [address] CO2 [Moles/Vol] 26 mmol/L Normal 22-30 [facility] Comment on above: Order Comment: Speci men Type: BLOOD SPECIMENOrdering Facility: [facility] Address: [address] [place] [address] Performed By: #### 2 4323-8 ####[facility] LABCLIA [id number] [place] [address] Creatinine [Mass/Vol] 1.27 mg/dL High 0.73-1.22 [facility] Comment on above: Order Comment: Speci men Type: BLOOD SPECIMENOrdering Facility: [facility] Address: [address] [place] [address] Performed By: #### 2 4323-8 ####[facility] LABCLIA [id number] [place] [address] Creatinine and Glomerular filtration rate.predicted panel (S/P/Bld) 65 mL/min/1.73m??? Normal >=60 [facility] Comment on above: Order Comment: Speci men Type: BLOOD SPECIMENOrdering Facility: [facility] Address: [address] [place] [address] Result Comment: Torri mated Glomerular Filtration Rate [...] actual GFR. Performed By: #### 2 4323-8 ####[facility] LABCLIA [id number] [place] [address] Glucose [Mass/Vol] 100 mg/dL High 74-99 [facility] Comment on above: Order Comment: Speci men Type: BLOOD SPECIMENOrdering Facility: [facility] Address: [address] [place], [place] [address] Result Comment: The [place] Diabetes Association (ADA) provides guidance for cutoff [...] Standards of Medical Care in Diabetes 2016, [place] [employer]. Diabetes Care. 2016.39(Suppl 1). Performed By: #### 2 4323-8 ####[facility] LABCLIA [id number] [place] [address] Potassium [Moles/Vol] 4.8 mmol/L Normal 3.7-5.1 [facility] Comment on above: Order Comment: Speci men Type: BLOOD SPECIMENOrdering Facility: [facility] Address: [address] [place] [address] Performed By: #### 2 4323-8 ####[facility] LABCLIA [id number] [place] [address] Protein [Mass/Vol] 7.0 g/dL Normal 6.3-8.0 [facility] Comment on above: Order Comment: Sharondai men Type: BLOOD SPECIMENOrdering Facility: [facility] Address: [address] [place] [address] Performed By: #### 2 4323-8 ####[facility] LABCLIA [id number] [place] [address] Sodium [Moles/Vol] 135 mmol/L Low 136-144 [facility] Comment on above: Order Comment: Speci men Type: BLOOD SPECIMENOrdering Facility: [facility] Address: [address] [place] [address] Performed By: #### 2 4323-8 ####[facility] LABCLIA [id number] [place] [address] Urea nitrogen [Mass/Vol] 23 mg/dL Normal 9-24 [facility] Comment on above: Order Comment: Speci men Type: BLOOD SPECIMENOrdering Facility: [facility] Address: [address] [place] [address] Performed By: #### 2 4323-8 ####[facility] LABCLIA [id number] [place] [address] Cortann Ramírezl-Karissaon 03-07-20 25 Cortisol [Mass/Vol] 6.8 ug/dL Normal 4.8-19.5 [facility] Comment on above: Order Comment: Speci men Type: BLOOD SPECIMENOrdering Facility: [facility] Address: [address] [place] [address] Result Comment: Prov ided reference range is from 6-10 AM sample collection time.Cortisol Reference Range: 6-10 AM = 4.8-19.5 ug/dL, 4-8 PM = 2.5-11.9 ug/dL Performed By: #### 3 016-3, 2143-6 ####[facility] LABCLIA [id number] [place] [address] [place] HbA1c (Bld)on 03-07-2025 Average glucose Estimated from glycated hemoglobin (Bld) [Mass/Vol] 100 mg/dL Normal [facility] Comment on above: Order Comment: Speci men Type: BLOOD SPECIMENOrdering Facility: [facility] Address: [address] [place] [address] Result Comment: eAG: (Estimated average glucose) is a calculated value from HgbA1c and is primary care sales representative of the average blood glucose level in the last 2-3 month period. Performed By: #### 5 5454-3 ####[facility] LABIA [id number] [place] [address] [place] HbA1c (Bld) [Mass fraction] 5.1 % Normal 4.3-5.6 [facility] Comment on above: Order Comment: Speci men Type: BLOOD SPECIMENOrdering Facility: [facility] Address: [address] [place] [address] Result Comment: [place] Diabetes Association guidelines indicate that patients with HgbA1c in the range 5.7-6.4% are at increased risk for development of diabetes, and intervention by lifestyle modification may be beneficial. HgbA1c greater or equal to 6.5% is considered diagnostic of diabetes. Performed By: #### 5 5454-3 ####[facility] LABIA [id number] [place] [address] [place] TSH SerPl-aCncon 03-07-2025 TSH Qn 4.570 m[IU]/L High 0.270-4.200 [facility] Comment on above: Order Comment: Speci men Type: BLOOD SPECIMENOrdering Facility: [facility] Address: [address] [place] [address] Performed By: #### 3 016-3, 2143-6 ####[facility] LABIA [id number] [place] [address] [place] CNOVon 02-20-2025 CNOV Normal [facility] CT ABDOMEN W IVCONon 025 CT ABDOMEN W IVCON Normal [facility] CT Abdomen W contrast Marcie 0 02-20-2025 IMPRESSION: No significant change from prior exam. No metastasis in the abdomen. School Occupational Therapist: JALEN Transcribe Date/Time: Feb 20 2025 9:17A Dictated by : JING RENST MD This examination was interpreted and the report reviewed and electronically signed by: JING ERNST MD on Feb 20 2025 9:25AM [facility] DIVISION OF RADIOLOGY * * *Final Report* * * DATE OF EXAM: Feb 20 2025 8:58AM [facility] 0533 - CT ABDOMEN W IVCON / PROCEDURE REASON: multiple diagnoses * * * * Physician Interpretation * * * * EXAMINATION: CT ABDOMEN WITH IV CONTRAST CLINICAL HISTORY: Oropharnyx cancer TECHNIQUE: CT of the abdomen was performed using standard technique, scanning from just above the dome of the diaphragm to the iliac crest. MQ: CTAbdW_4 Contrast: IV: 100 ml of Omnipaque 350 Oral: 450 ml of Omni 240 10-25ml diluted with water CT Radiation dose: Integrated Dose-length product (DLP) for this visit = 669 mGy*cm. CT Dose Reduction Employed: Automated exposure control (AEC) COMPARISON: CT 05/03/2024 RESULT: Liver: Ill-defined subcentimeter low-density lesion in segment 5 (2:45), too small to characterize but unchanged and likely benign. Biliary: No bile duct dilation. No calcified gallstones. Spleen: No mass. No splenomegaly. Pancreas: No mass or duct dilation. Adrenals:No mass. 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 Small bilateral probable cysts. No hydronephrosis. GI tract: No dilation or wall thickening. Lymph nodes: No abdominal lymphadenopathy. Mesentery/Peritoneum: No ascites or mass. Retroperitoneum: No mass. Vasculature: - Abdominal aorta: Atherosclerotic calcifications without aneurysm. - Celiac and SMA: Patent without stenosis. - Portal venous system (SMV, splenic vein, portal vein and branches): Patent. - Hepatic veins: Patent. Bones/Soft Tissues: No acute findings. Lower thorax: A chest CT performed will be reported separately. Localizer images: No additional findings. DIVISION OF RADIOLOGY Provider, [facility] - 02/20/2025 * * *Final Report* * * DATE OF EXAM: Feb 20 2025 8:58AM [facility] 0533 - CT ABDOMEN W IVCON / PROCEDURE REASON: multiple diagnoses * * * * Physician Interpretation * * * * EXAMINATION: CT ABDOMEN WITH IV CONTRAST CLINICAL HISTORY: Oropharnyx cancer TECHNIQUE: CT of the abdomen was performed using standard technique, scanning from just above the dome of the diaphragm to the iliac crest. MQ: CTAbdW_4 Contrast: IV: 100 ml of Omnipaque 350 Oral: 450 ml of Omni 240 10-25ml diluted with water CT Radiation dose: Integrated Dose-length product (DLP) for this visit = 669 mGy*cm. CT Dose Reduction Employed: Automated exposure control (AEC) COMPARISON: CT 05/03/2024 RESULT: Liver: Ill-defined subcentimeter low-density lesion in segment 5 (2:45), too small to characterize but unchanged and likely benign. Biliary: No bile duct dilation. No calcified gallstones. Spleen: No mass. No splenomegaly. Pancreas: No mass or duct dilation. Adrenals:No mass. 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 Small bilateral probable cysts. No hydronephrosis. GI tract: No dilation or wall thickening. Lymph nodes: No abdominal lymphadenopathy. Mesentery/Peritoneum: No ascites or mass. Retroperitoneum: No mass. Vasculature: - Abdominal aorta: Atherosclerotic calcifications without aneurysm. - Celiac and SMA: Patent without stenosis. - Portal venous system (SMV, splenic vein, portal vein and branches): Patent. - Hepatic veins: Patent. Bones/Soft Tissues: No acute findings. Lower thorax: A chest CT performed will be reported separately. Localizer images: No additional findings. IMPRESSION IMPRESSION: No significant change from prior exam. No metastasis in the abdomen. School Occupational Therapist: JALEN Transcribe Date/Time: Feb 20 2025 9:17A Dictated by : JING ERNST MD This examination was interpreted and the report reviewed and electronically signed by: JING ERNST MD on Feb 20 2025 9:25AM EST [facility] CT CHEST W IVCONon CT CHEST W IVCON Invalid Interpretation Code [facility] CT Chest W contrast IVOrdere d By: [facility] Provider on 02-20-2025 Interpretation and review of laboratory results Abnormal [facility] Radiology Result ACTIONABLE Abnormal [facility] Comment on above: This report contains an incidental or actionable finding. This finding may be a new finding separate from the reason your provider ordered the imaging test or it may be an already known finding that needs additional or continued follow-up. Because of this incidental or actionable finding, you may need another test (imaging or a different type of test). Please contact your provider for the next steps. [facility] CT Chest W contrast Marcie IMPRESSION: 1. New right upper lobe mass obscuring the prior treated pulmonary nodules and obstructing the right anterior segmental bronchus, suspicious for recurrence. However, a component of evolving post radiation change cannot be completely excluded. PET/CT could be considered (approximately 8 months after SBRT). 2. Increase in size of mediastinal lymph nodes and prior right apical partially calcified granuloma. Differential diagnoses include metastases, nonspecific reactive change with infectious/inflammatory process, immune check inhibitor related sarcoid-like reaction. Attention on follow-up is recommended. ACTIONABLE RESULT: FOLLOW-UP Acuity: Actionable Findings: Thoracic-Lung nodules Routing code: [id number] Recommendation: PET/CT Time Frame: At the discretion of the clinical team. COMMUNICATION: Results will be communicated with the ordering provider via [employer] staff message or phone message by [employer] within 2 business days of report finalization. 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 S/p lung SBRT 07/05/2024 Single isocenter for 2 lung lesions: 3400 cGy in 1 fx ? Concurrent Cisplatin and XRT 11/21/2021- XRTY completed 01/06/2023 and last dose of chemo 12/21/2022 (Total Hoopa dose= 200 mg/m2) 2. Recurrence in the Lung Biopsy proven 08/2023: PDL-1 insufficient and KRAS G12A, PIK3CA (Targeted Oncology only due to sample) 3. Carbo/Taxol ad P[place]bro 09/26/2023-12/11/2023 (Cycle 4) with response, Pembro monotherapy Technique: Spiral CT acquisition of the chest from the thoracic inlet to the upper abdomen following IV contrast. MQ: CTCW_6 Contrast: 100 mL Omnipaque [address] Radiation dose: Integrated Dose-length product (DLP) for this visit = 669 mGy*cm CT Dose Reduction Employed: Automated exposure control (AEC) Comparison: Chest CT dated 10/31/2024 RESULT: Limitations: None. Lines, tubes, and devices: None. Lung parenchyma and airways: New 6.3 x 5.1 cm right upper lobe mass obstructing the anterior segmental bronchus on image 79, resulting in post obstructive atelectasis/pneumonia. The prior treated pulmonary nodules are obscured by the mass. There are architectural distortion and groundglass opacities adjacent to the mass, likely related to prior radiation related change. Increase in size of prior right apical partially calcified granuloma with a new adjacent noncalcified component measuring 0.7 cm. Additional scattered micronodules are unchanged. No Mild biapical scarring, likely post inflammatory.. No endotracheal or central endobronchial lesion is identified. Pleural space: No pleural effusion or thickening. No pneumothorax. Lower neck, lymph nodes, and mediastinum: The imaged thyroid gland is normal. There are multiple enlarged thoracic lymph nodes including a 1.1 cm right paratracheal lymph node on image 70, previously 0.7 cm, a 1.3 cm subcarinal lymph node on image 86, previously 1.2 cm. Small hiatal hernia Heart, pericardium, and thoracic vessels: The thoracic aorta and main pulmonary artery are normal in caliber. The cardiac chambers are normal in size. Moderate coronary artery atherosclerotic calcifications are noted, although the study is not optimized for coronary assessment. No pericardial effusion or thickening. Mild atherosclerotic calcifications of the thoracic aorta and arch vessels. Bones and soft tissues: Degenerative changes are seen. Upper abdomen: No acute abnormality in the imaged upper abdomen. Localizer images: No additional findings. DIVISION OF RADIOLOGY Provider, 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 S/p lung SBRT 07/05/2024 Single isocenter for 2 lung lesions: 3400 cGy in 1 fx ? Concurrent Cisplatin and XRT 11/21/2021- XRTY completed 01/06/2023 and last dose of chemo 12/21/2022 (Total Hoopa dose= 200 mg/m2) 2. Recurrence in the Lung Biopsy proven 08/2023: PDL-1 insufficient and KRAS G12A, PIK3CA (Targeted Oncology only due to sample) 3. Carbo/Taxol ad Pembro 09/26/2023-12/11/2023 (Cycle 4) with response, Pembro monotherapy Technique: Spiral CT acquisition of the chest from the thoracic inlet to the upper abdomen following IV contrast. MQ: CTCW_6 Contrast: 100 mL Omnipaque [address] Radiation dose: Integrated Dose-length product (DLP) for this visit = 669 mGy*cm CT Dose Reduction Employed: Automated exposure control (AEC) Comparison: Chest CT dated 10/31/2024 RESULT: Limitations: None. Lines, tubes, and devices: None. Lung parenchyma and airways: New 6.3 x 5.1 cm right upper lobe mass obstructing the anterior segmental bronchus on image 79, resulting in post obstructive atelectasis/pneumonia. The prior treated pulmonary nodules are obscured by the mass. There are architectural distortion and groundglass opacities adjacent to the mass, likely related to prior radiation related change. Increase in size of prior right apical partially calcified granuloma with a new adjacent noncalcified component measuring 0.7 cm. Additional scattered micronodules are unchanged. No Mild biapical scarring, likely post inflammatory.. No endotracheal or central endobronchial lesion is identified. Pleural space: No pleural effusion or thickening. No pneumothorax. Lower neck, lymph nodes, and mediastinum: The imaged thyroid gland is normal. There are multiple enlarged thoracic lymph nodes including a 1.1 cm right paratracheal lymph node on image 70, previously 0.7 cm, a 1.3 cm subcarinal lymph node on image 86, previously 1.2 cm. Small hiatal hernia Heart, pericardium, and thoracic vessels: The thoracic aorta and main pulmonary artery are normal in caliber. The cardiac chambers are normal in size. Moderate coronary artery atherosclerotic calcifications are noted, although the study is not optimized for coronary assessment. No pericardial effusion or thickening. Mild atherosclerotic calcifications of the thoracic aorta and arch vessels. Bones and soft tissues: Degenerative changes are seen. Upper abdomen: No acute abnormality in the imaged upper abdomen. Localizer images: No additional findings. IMPRESSION IMPRESSION: 1. New right upper lobe mass obscuring the prior treated pulmonary nodules and obstructing the right anterior segmental bronchus, suspicious for recurrence. However, a component of evolving post radiation change cannot be completely excluded. PET/CT could be considered (approximately 8 months after SBRT). 2. Increase in size of mediastinal lymph nodes and prior right apical partially calcified granuloma. Differential diagnoses include metastases, nonspecific reactive change with infectious/inflammatory process, immune check inhibitor related sarcoid-like reaction. Attention on follow-up is recommended. ACTIONABLE RESULT: FOLLOW-UP Acuity: Actionable Findings: Thoracic-Lung nodules Routing code: RI_[id number] Recommendation: PET/CT Time Frame: At the discretion of the clinical team. COMMUNICATION: Results will be communicated with the ordering provider via Mint staff message or phone message by [employer] within 2 business days of report finalization. --END OF FINDING-- School Occupational Therapist: JALEN Transcribe Date/Time: Feb 20 2025 9:25A Dictated by : TIERRA PARK MD This examination was interpreted and the report reviewed and electronically signed by: TIERRA PARK MD on Feb 20 2025 9:49AM EST [facility] No Panel Informationon 02-20 Radiology Study observation (narrative) [facility] ACTH Plas-mCncon 02-03-2025 Corticotropin (P) [Mass/Vol] 5.8 pg/mL Low 7.2-63.3 [facility] Comment on above: Order Comment: Richard perez Type: BLOOD SPECIMENOrdering Facility: [facility] Address: [address] [place] [address] Result Comment: ACTH Reference Range: 7-10 am: 7.2 - 63.3 pg/mL Performed By: #### 2 141-0 ####[facility] LABCLIA [id number] [place] [address] [place] Cortis SerPl-mCncon 02-04-20 25 Cortisol [Mass/Vol] 25.4 ug/dL High 4.8-19.5 [facility] Comment on above: Order Comment: Speci men Type: BLOOD SPECIMENOrdering Facility: [facility] Address: [address] [place] [address] Result Comment: Prov ided reference range is from 6-10 AM sample collection time.Cortisol Reference Range: 6-10 AM = 4.8-19.5 ug/dL, 4-8 PM = 2.5-11.9 ug/dL Performed By: #### 2 143-6 ####[facility] LABCLIA [id number] [place] [address] [place] Cortisol [Mass/Vol] 22.5 ug/dL High 4.8-19.5 [facility] Comment on above: Order Comment: Speci men Type: BLOOD SPECIMENOrdering Facility: [facility] Address: [address] [place] [address] Result Comment: Prov ided reference range is from 6-10 AM sample collection time.Cortisol Reference Range: 6-10 AM = 4.8-19.5 ug/dL, 4-8 PM = 2.5-11.9 ug/dL Performed By: #### 2 143-6 ####[facility] LABCLIA [id number] [address] [place] Cortisol [Mass/Vol] 12.0 ug/dL Normal 4.8-19.5 [facility] Comment on above: Order Comment: Speci men Type: BLOOD SPECIMENOrdering Facility: [facility] Address: [address] [place] [address] Result Comment: Prov ided reference range is from 6-10 AM sample collection time.Cortisol Reference Range: 6-10 AM = 4.8-19.5 ug/dL, 4-8 PM = 2.5-11.9 ug/dL Performed By: #### 2 143-6 ####[facility] LABCLIA [id number] [place] [address] [place] CBC W Auto Differential pane l (Bld)on 01-24-2025 Basophils (Bld) [#/Vol] 0.04 10*3/uL [facility] Basophils/100 WBC (Bld) 0.6 % [facility] Differential cell count method Nom (Bld) Auto [facility] Eosinophils (Bld) [#/Vol] 0.4 10*3/uL [facility] Eosinophils/100 WBC (Bld) 5.6 % [facility] Erythrocyte distribution width (RBC) [Ratio] 12.2 % 11.5 - 15.0 % [facility] Hematocrit (Bld) [Volume fraction] 35.9 % Low 39.0 - 51.0 % [facility] Hemoglobin (Bld) [Mass/Vol] 11.9 g/dL Low 13.0 - 17.0 g/dL [facility] Immature granulocytes (Bld) [#/Vol] [facility] Immature granulocytes/100 WBC (Bld) 0.3 % [facility] Interpretation and review of laboratory results Abnormal [facility] Lymphocytes (Bld) [#/Vol] 0.98 10*3/uL Low [facility] Lymphocytes/100 WBC (Bld) 13.7 % [facility] MCH (RBC) [Entitic mass] 27.8 pg 26.0 - 34.0 pg [facility] MCHC (RBC) [Mass/Vol] 33.1 g/dL 30.5 - 36.0 g/dL [facility] MCV (RBC) [Entitic vol] 83.9 fL 80.0 - 100.0 fL [facility] Monocytes (Bld) [#/Vol] 0.47 10*3/uL [facility] Monocytes/100 WBC (Bld) 6.6 % [facility] Neutrophils (Bld) [#/Vol] 5.25 10*3/uL [facility] Neutrophils/100 WBC (Bld) 73.2 % [facility] Nucleated RBC (Bld) [#/Vol] [facility] Nucleated RBC/100 WBC (Bld) [Ratio] 0 % /100 WBC [facility] Platelet mean volume (Bld) [Entitic vol] 7.8 fL Low 9.0 - 12.7 fL [facility] Platelets (Bld) [#/Vol] 225 10*3/uL [facility] RBC (Bld) [#/Vol] 4.28 10*6/uL 4.20 - 6.00 m/uL [facility] WBC (Bld) [#/Vol] 7.16 10*3/uL [facility] Basophils (Bld) [#/Vol] 0.04 10*3/uL Normal <0.11 [facility] Comment on above: Order Comment: Speci men Type: BLOOD SPECIMENOrdering Facility: [facility] Address: [address] [place] [address] Performed By: #### 5 7021-8 ####[facility] LABCLIA [id number] [place] [address] Basophils/100 WBC (Bld) 0.6 % Normal [facility] Comment on above: Order Comment: Speci men Type: BLOOD SPECIMENOrdering Facility: [facility] Address: [address] [place] [address] Performed By: #### 5 7021-8 ####[facility] LABCLIA [id number] [place] [address] Differential cell count method Nom (Bld) Auto Normal [facility] Comment on above: Order Comment: Speci men Type: BLOOD SPECIMENOrdering Facility: [facility] Address: [address] [place] [address] Performed By: #### 5 7021-8 ####[facility] LABCLIA [id number] [place] [address] Eosinophils (Bld) [#/Vol] 0.40 10*3/uL Normal <0.46 [facility] Comment on above: Order Comment: Speci men Type: BLOOD SPECIMENOrdering Facility: [facility] Address: [address] [place] [address] Performed By: #### 5 7021-8 ####[facility] LABCLIA [id number] [place] [address] Eosinophils/100 WBC (Bld) 5.6 % Normal [facility] Comment on above: Order Comment: Speci men Type: BLOOD SPECIMENOrdering Facility: [facility] Address: [address] [place] [address] Performed By: #### 5 7021-8 ####[facility] LABCLIA [id number] [place] [address] Erythrocyte distribution width (RBC) [Ratio] 12.2 % Normal 11.5-15.0 [facility] Comment on above: Order Comment: Speci men Type: BLOOD SPECIMENOrdering Facility: [facility] Address: [address] [place] [address] Performed By: #### 5 7021-8 ####[facility] LABCLIA [id number] [place] [address] Hematocrit (Bld) [Volume fraction] 35.9 % Low 39.0-51.0 [facility] Comment on above: Order Comment: Speci men Type: BLOOD SPECIMENOrdering Facility: [facility] Address: [address] [place] [address] Performed By: #### 5 7021-8 ####[facility] LABCLIA [id number] [place] [address] Hemoglobin (Bld) [Mass/Vol] 11.9 g/dL Low 13.0-17.0 [facility] Comment on above: Order Comment: Speci men Type: BLOOD SPECIMENOrdering Facility: [facility] Address: [address] [place] [address] Performed By: #### 5 7021-8 ####[facility] LABCLIA [id number] [place] [address] Immature granulocytes (Bld) [#/Vol] 10*3/uL Normal <0.10 [facility] Comment on above: Order Comment: Speci men Type: BLOOD SPECIMENOrdering Facility: [facility] Address: [address] [place] [address] Performed By: #### 5 7021-8 ####[facility] LABCLIA [id number] [place] [address] Immature granulocytes/100 WBC (Bld) 0.3 % Normal [facility] Comment on above: Order Comment: Speci men Type: BLOOD SPECIMENOrdering Facility: [facility] Address: [address] [place] [address] Performed By: #### 5 7021-8 ####[facility] LABCLIA [id number] [place] [address] Lymphocytes (Bld) [#/Vol] 0.98 10*3/uL Low 1.00-4.00 [facility] Comment on above: Order Comment: Speci men Type: BLOOD SPECIMENOrdering Facility: [facility] Address: [address] [place] [address] Performed By: #### 5 7021-8 ####[facility] LABCLIA [id number] [place] [address] Lymphocytes/100 WBC (Bld) 13.7 % Normal [facility] Comment on above: Order Comment: Speci men Type: BLOOD SPECIMENOrdering Facility: [facility] Address: [address] [place] [address] Performed By: #### 5 7021-8 ####[facility] LABCLIA [id number] [place] [address] MCH (RBC) [Entitic mass] 27.8 pg Normal 26.0-34.0 [facility] Comment on above: Order Comment: Speci men Type: BLOOD SPECIMENOrdering Facility: [facility] Address: [address] [place] [address] Performed By: #### 5 7021-8 ####[facility] LABCLIA [id number] [place] [address] MCHC (RBC) [Mass/Vol] 33.1 g/dL Normal 30.5-36.0 [facility] Comment on above: Order Comment: Speci men Type: BLOOD SPECIMENOrdering Facility: [facility] Address: [address] [place] [address] Performed By: #### 5 7021-8 ####[facility] LABCLIA [id number] [place] [address] MCV (RBC) [Entitic vol] 83.9 fL Normal 80.0-100.0 [facility] Comment on above: Order Comment: Speci men Type: BLOOD SPECIMENOrdering Facility: [facility] Address: [address] [place] [address] Performed By: #### 5 7021-8 ####[facility] LABCLIA [id number] [place] [address] Monocytes (Bld) [#/Vol] 0.47 10*3/uL Normal <0.87 [facility] Comment on above: Order Comment: Speci men Type: BLOOD SPECIMENOrdering Facility: [facility] Address: [address] [place] [address] Performed By: #### 5 7021-8 ####[facility] LABIA [id number] [place] [address] Monocytes/100 WBC (Bld) 6.6 % Normal [facility] Comment on above: Order Comment: Speci men Type: BLOOD SPECIMENOrdering Facility: [facility] Address: [address] [place] [address] Performed By: #### 5 7021-8 ####[facility] LABCLIA [id number] [place] [address] Neutrophils (Bld) [#/Vol] 5.25 10*3/uL Normal 1.45-7.50 [facility] Comment on above: Order Comment: Speci men Type: BLOOD SPECIMENOrdering Facility: [facility] Address: [address] [place] [address] Performed By: #### 5 7021-8 ####[facility] LABIA [id number] [place] [address] Neutrophils/100 WBC (Bld) 73.2 % Normal [facility] Comment on above: Order Comment: Speci men Type: BLOOD SPECIMENOrdering Facility: [facility] Address: [address] [place] [address] Performed By: #### 5 7021-8 ####[facility] LABCLIA [id number] [place] [address] Nucleated RBC (Bld) [#/Vol] 10*3/uL Normal <0.01 [facility] Comment on above: Order Comment: Speci men Type: BLOOD SPECIMENOrdering Facility: [facility] Address: [address] [place] [address] Performed By: #### 5 7021-8 ####[facility] LABCLIA [id number] [place] [address] Nucleated RBC/100 WBC (Bld) [Ratio] 0.0 /100 WBC Normal [facility] Comment on above: Order Comment: Speci men Type: BLOOD SPECIMENOrdering Facility: [facility] Address: [address] [place] [address] Performed By: #### 5 7021-8 ####[facility] LABCLIA [id number] [place] [address] Platelet mean volume (Bld) [Entitic vol] 7.8 fL Low 9.0-12.7 [facility] Comment on above: Order Comment: Speci men Type: BLOOD SPECIMENOrdering Facility: [facility] Address: [address] [place] [address] Performed By: #### 5 7021-8 ####[facility] LABCLIA [id number] [place] [address] Platelets (Bld) [#/Vol] 225 10*3/uL Normal 150-400 [facility] Comment on above: Order Comment: Speci men Type: BLOOD SPECIMENOrdering Facility: [facility] Address: [address] [place] [address] Performed By: #### 5 7021-8 ####[facility] LABCLIA [id number] [place] [address] RBC (Bld) [#/Vol] 4.28 10*6/uL Normal 4.20-6.00 [facility] Comment on above: Order Comment: Speci men Type: BLOOD SPECIMENOrdering Facility: [facility] Address: [address] [place] [address] Performed By: #### 5 7021-8 ####[facility] LABCLIA [id number] [place] [address] WBC (Bld) [#/Vol] 7.16 10*3/uL Normal 3.70-11.00 [facility] Comment on above: Order Comment: Speci men Type: BLOOD SPECIMENOrdering Facility: [facility] Address: [address] [place] [address] Performed By: #### 5 7021-8 ####[facility] LABCLIA [id number] [place] [address] Comprehensive metabolic 2000 panelOrdered By: Rosemarie Douglas on 01-24-2025 Albumin [Mass/Vol] 3.8 g/dL Low 3.9 - 4.9 g/dL [facility] ALP [Catalytic activity/Vol] 112 U/L 38 - 113 U/L [facility] ALT [Catalytic activity/Vol] 15 U/L 10 - 54 U/L [facility] Anion gap [Moles/Vol] 10 mmol/L 8 - 15 mmol/L [facility] AST [Catalytic activity/Vol] 13 U/L Low 14 - 40 U/L [facility] Bilirubin [Mass/Vol] 0.2 mg/dL 0.2 - 1.3 mg/dL [facility] Calcium [Mass/Vol] 9.9 mg/dL 8.5 - 10.2 mg/dL [facility] Chloride [Moles/Vol] 100 mmol/L 98 - 107 mmol/L [facility] CO2 [Moles/Vol] 24 mmol/L 22 - 30 mmol/L [facility] Creatinine [Mass/Vol] 1.38 mg/dL High 0.73 - 1.22 mg/dL [facility] GFR/1.73 sq M.predicted among non-blacks MDRD (S/P/Bld) [Vol rate/Area] 59 mL/min/{1.73_m2} Low - PINF [facility] Comment on above: Estimated Glomerular Filtration Rate [...] not accurately reflect actual GFR. Glucose [Mass/Vol] 173 mg/dL High 74 - 99 mg/dL [facility] Comment on above: The [place] [employer] (ADA) provides guidance for [...] Standards of Medical Care in Diabetes 2016, [place] [employer]. Diabetes Care. 2016.39(Suppl 1). Interpretation and review of laboratory results Abnormal [facility] Potassium [Moles/Vol] 3.7 mmol/L 3.7 - 5.1 mmol/L [facility] Protein [Mass/Vol] 7 g/dL 6.3 - 8.0 g/dL [facility] Sodium [Moles/Vol] 134 mmol/L Low 136 - 144 mmol/L [facility] Urea nitrogen [Mass/Vol] 22 mg/dL 9 - 24 mg/dL [facility] Comprehensive metabolic 2000 panelon 01-24-2025 Albumin [Mass/Vol] 3.8 g/dL Low 3.9-4.9 [facility] Comment on above: Order Comment: Speci men Type: BLOOD SPECIMENOrdering Facility: [facility] Address: [address] [place] [address] Performed By: #### 2 4323-8 ####[facility] LABCLIA [id number] [place] [address] ALP [Catalytic activity/Vol] 112 U/L Normal 38-113 [facility] Comment on above: Order Comment: Speci men Type: BLOOD SPECIMENOrdering Facility: [facility] Address: [address] [place] [address] Performed By: #### 2 4323-8 ####[facility] LABCLIA [id number] [place] [address] ALT [Catalytic activity/Vol] 15 U/L Normal 10-54 [facility] Comment on above: Order Comment: Speci men Type: BLOOD SPECIMENOrdering Facility: [facility] Address: [address] [place] [address] Performed By: #### 2 4323-8 ####[facility] LABCLIA [id number] [place] [address] Anion gap [Moles/Vol] 10 mmol/L Normal 8-15 [facility] Comment on above: Order Comment: Speci men Type: BLOOD SPECIMENOrdering Facility: [facility] Address: [address] [place] [address] Performed By: #### 2 4323-8 ####[facility] LABCLIA [id number] [place] [address] AST [Catalytic activity/Vol] 13 U/L Low 14-40 [facility] Comment on above: Order Comment: Speci men Type: BLOOD SPECIMENOrdering Facility: [facility] Address: [address] [place] [address] Performed By: #### 2 4323-8 ####[facility] LABCLIA [id number] [place] [address] Bilirubin [Mass/Vol] 0.2 mg/dL Normal 0.2-1.3 [facility] Comment on above: Order Comment: Speci men Type: BLOOD SPECIMENOrdering Facility: [facility] Address: [address] [place] [address] Performed By: #### 2 4323-8 ####[facility] LABCLIA [id number] [place] [address] Calcium [Mass/Vol] 9.9 mg/dL Normal 8.5-10.2 [facility] Comment on above: Order Comment: Speci men Type: BLOOD SPECIMENOrdering Facility: [facility] Address: [address] [place] [address] Performed By: #### 2 4323-8 ####[facility] LABCLIA [id number] [place] [address] Chloride [Moles/Vol] 100 mmol/L Normal 98-107 [facility] Comment on above: Order Comment: Speci men Type: BLOOD SPECIMENOrdering Facility: [facility] Address: [address] [place] [address] Performed By: #### 2 4323-8 ####[facility] LABCLIA [id number] [place] [address] CO2 [Moles/Vol] 24 mmol/L Normal 22-30 [facility] Comment on above: Order Comment: Speci men Type: BLOOD SPECIMENOrdering Facility: [facility] Address: [address] [place] [address] Performed By: #### 2 4323-8 ####[facility] LABCLIA [id number] [place] [address] Creatinine [Mass/Vol] 1.38 mg/dL High 0.73-1.22 [facility] Comment on above: Order Comment: Speci men Type: BLOOD SPECIMENOrdering Facility: [facility] Address: [address] [place] [address] Performed By: #### 2 4323-8 ####[facility] LABIA [id number] [place] [address] Creatinine and Glomerular filtration rate.predicted panel (S/P/Bld) 59 mL/min/1.73m??? Low >=60 [facility] Comment on above: Order Comment: Speci men Type: BLOOD SPECIMENOrdering Facility: [facility] Address: [address] [place] [address] Result Comment: Torri mated Glomerular Filtration Rate [...] actual GFR. Performed By: #### 2 4323-8 ####[facility] LABCLIA [id number] [place] [address] Glucose [Mass/Vol] 173 mg/dL High 74-99 [facility] Comment on above: Order Comment: Richard perez Type: BLOOD SPECIMENOrdering Facility: [facility] Address: [address] [place] [address] Result Comment: The [place] Diabetes Association (ADA) provides guidance for cutoff [...] Standards of Medical Care in Diabetes 2016, [place] [employer]. Diabetes Care. 2016.39(Suppl 1). Performed By: #### 2 4323-8 ####[facility] LABCLIA [id number] [place] [address] Potassium [Moles/Vol] 3.7 mmol/L Normal 3.7-5.1 [facility] Comment on above: Order Comment: Richard perez Type: BLOOD SPECIMENOrdering Facility: [facility] Address: [address] [id number] Performed By: #### 2 4323-8 ####[facility] LABCLIA [id number] [place] [address] Protein [Mass/Vol] 7.0 g/dL Normal 6.3-8.0 [facility] Comment on above: Order Comment: Speci men Type: BLOOD SPECIMENOrdering Facility: [facility] Address: [address] [place] [address] Performed By: #### 2 4323-8 ####[facility] LABCLIA [id number] [place] [address] Sodium [Moles/Vol] 134 mmol/L Low 136-144 [facility] Comment on above: Order Comment: Speci men Type: BLOOD SPECIMENOrdering Facility: [facility] Address: [address] [place] [address] Performed By: #### 2 4323-8 ####[facility] LABCLIA [id number] [place] [address] Urea nitrogen [Mass/Vol] 22 mg/dL Normal 9-24 [facility] Comment on above: Order Comment: Speci men Type: BLOOD SPECIMENOrdering Facility: [facility] Address: [address] [place] [address] Performed By: #### 2 4323-8 ####[facility] LABCLIA [id number] [place] [address] Mattann Brea-Orestes 01-25-20 25 Cortisol [Mass/Vol] 8.1 ug/dL Normal 4.8-19.5 [facility] Comment on above: Order Comment: Speci men Type: BLOOD SPECIMENOrdering Facility: [facility] Address: [address] [place] [address] Result Comment: Prov ided reference range is from 6-10 AM sample collection time.Cortisol Reference Range: 6-10 AM = 4.8-19.5 ug/dL, 4-8 PM = 2.5-11.9 ug/dL Performed By: #### 3 016-3, 2143-6 ####[facility] LABCLIA [id number] [place] [id number] [place] HbA1c (Bld)on 01-24-2025 Average glucose Estimated from glycated hemoglobin (Bld) [Mass/Vol] 111 mg/dL Normal [facility] Comment on above: Order Comment: Speci men Type: BLOOD SPECIMENOrdering Facility: [facility] Address: [address] [place] [address] Result Comment: eAG: (Estimated average glucose) is a calculated value from HgbA1c and is primary care sales representative of the average blood glucose level in the last 2-3 month period. Performed By: #### 5 5454-3 ####[facility] LABCLIA [id number] [place] [address] [place] HbA1c (Bld) [Mass fraction] 5.5 % Normal 4.3-5.6 [facility] Comment on above: Order Comment: Speci men Type: BLOOD SPECIMENOrdering Facility: [facility] Address: [address] [place] [address] Result Comment: [place] Diabetes Association guidelines indicate that patients with HgbA1c in the range 5.7-6.4% are at increased risk for development of diabetes, and intervention by lifestyle modification may be beneficial. HgbA1c greater or equal to 6.5% is considered diagnostic of diabetes. Performed By: #### 5 5454-3 ####[facility] LABCLIA [id number] [place] [address] [place] TSH SerPl-aCncon 01-24-2025 TSH Qn 3.820 m[IU]/L Normal 0.270-4.200 [facility] Comment on above: Order Comment: Speci men Type: BLOOD SPECIMENOrdering Facility: [facility] Address: [address] [place] [address] Performed By: #### 3 016-3, 2143-6 ####[facility] LABCLIA [id number] [place] [id number] [place] CNPNon 01-15-2025 CNPN Normal [facility] CNOVon 01-10-2025 CNOV Normal [facility] CBC W Auto Differential pane l (Bld)on 12-13-2024 Basophils (Bld) [#/Vol] 0.04 10*3/uL Normal <0.11 [facility] Comment on above: Order Comment: Speci men Type: BLOOD SPECIMENOrdering Facility: [facility] Address: [address] [place] [address] Performed By: #### 5 7021-8 ####[facility] LABCLIA [id number] [place] [address] Basophils/100 WBC (Bld) 0.6 % Normal [facility] Comment on above: Order Comment: Speci men Type: BLOOD SPECIMENOrdering Facility: [facility] Address: [address] [place] [address] Performed By: #### 5 7021-8 ####[facility] LABCLIA [id number] [place] [address] Differential cell count method Nom (Bld) Auto Normal [facility] Comment on above: Order Comment: Speci men Type: BLOOD SPECIMENOrdering Facility: [facility] Address: [address] [place] [address] Performed By: #### 5 7021-8 ####[facility] LABCLIA [id number] [place] [address] Eosinophils (Bld) [#/Vol] 0.46 10*3/uL High <0.46 [facility] Comment on above: Order Comment: Speci men Type: BLOOD SPECIMENOrdering Facility: [facility] Address: [address] [place] [address] Performed By: #### 5 7021-8 ####[facility] LABCLIA [id number] [place] [address] Eosinophils/100 WBC (Bld) 7.3 % Normal [facility] Comment on above: Order Comment: Speci men Type: BLOOD SPECIMENOrdering Facility: [facility] Address: [address] [place] [address] Performed By: #### 5 7021-8 ####[facility] LABCLIA [id number] [place] [address] Erythrocyte distribution width (RBC) [Ratio] 13.0 % Normal 11.5-15.0 [facility] Comment on above: Order Comment: Speci men Type: BLOOD SPECIMENOrdering Facility: [facility] Address: [address] [place] [address] Performed By: #### 5 7021-8 ####[facility] LABCLIA [id number] [place] [address] Hematocrit (Bld) [Volume fraction] 41.3 % Normal 39.0-51.0 [facility] Comment on above: Order Comment: Speci men Type: BLOOD SPECIMENOrdering Facility: [facility] Address: [address] [place] [address] Performed By: #### 5 7021-8 ####[facility] LABIA [id number] [place] [address] Hemoglobin (Bld) [Mass/Vol] 14.1 g/dL Normal 13.0-17.0 [facility] Comment on above: Order Comment: Speci men Type: BLOOD SPECIMENOrdering Facility: [facility] Address: [address] [place] [address] Performed By: #### 5 7021-8 ####[facility] LABCLIA [id number] [place] [address] Immature granulocytes (Bld) [#/Vol] 10*3/uL Normal <0.10 [facility] Comment on above: Order Comment: Speci men Type: BLOOD SPECIMENOrdering Facility: [facility] Address: [address] [place] [address] Performed By: #### 5 7021-8 ####[facility] LABIA [id number] [place] [address] Immature granulocytes/100 WBC (Bld) 0.2 % Normal [facility] Comment on above: Order Comment: Speci men Type: BLOOD SPECIMENOrdering Facility: [facility] Address: [address] [place] [address] Performed By: #### 5 7021-8 ####[facility] LABCLIA [id number] [place] [address] Lymphocytes (Bld) [#/Vol] 1.21 10*3/uL Normal 1.00-4.00 [facility] Comment on above: Order Comment: Speci men Type: BLOOD SPECIMENOrdering Facility: [facility] Address: [address] [place] [address] Performed By: #### 5 7021-8 ####[facility] LABCLIA [id number] [place] [address] Lymphocytes/100 WBC (Bld) 19.3 % Normal [facility] Comment on above: Order Comment: Speci men Type: BLOOD SPECIMENOrdering Facility: [facility] Address: [address] [place] [address] Performed By: #### 5 7021-8 ####[facility] LABCLIA [id number] [place] [address] MCH (RBC) [Entitic mass] 29.0 pg Normal 26.0-34.0 [facility] Comment on above: Order Comment: Speci men Type: BLOOD SPECIMENOrdering Facility: [facility] Address: [address] [place] [address] Performed By: #### 5 7021-8 ####[facility] LABCLIA [id number] [place] [address] MCHC (RBC) [Mass/Vol] 34.1 g/dL Normal 30.5-36.0 [facility] Comment on above: Order Comment: Speci men Type: BLOOD SPECIMENOrdering Facility: [facility] Address: [address] [place] [address] Performed By: #### 5 7021-8 ####[facility] LABCLIA [id number] [place] [address] MCV (RBC) [Entitic vol] 84.8 fL Normal 80.0-100.0 [facility] Comment on above: Order Comment: Speci men Type: BLOOD SPECIMENOrdering Facility: [facility] Address: [address] [place] [address] Performed By: #### 5 7021-8 ####[facility] LABCLIA [id number] [place] [address] Monocytes (Bld) [#/Vol] 0.68 10*3/uL Normal <0.87 [facility] Comment on above: Order Comment: Speci men Type: BLOOD SPECIMENOrdering Facility: [facility] Address: [address] [place] [address] Performed By: #### 5 7021-8 ####[facility] LABCLIA [id number] [place] [address] Monocytes/100 WBC (Bld) 10.8 % Normal [facility] Comment on above: Order Comment: Speci men Type: BLOOD SPECIMENOrdering Facility: [facility] Address: [address] [place] [address] Performed By: #### 5 7021-8 ####[facility] LABCLIA [id number] [place] [address] Neutrophils (Bld) [#/Vol] 3.87 10*3/uL Normal 1.45-7.50 [facility] Comment on above: Order Comment: Speci men Type: BLOOD SPECIMENOrdering Facility: [facility] Address: [address] [place] [address] Performed By: #### 5 7021-8 ####[facility] LABCLIA [id number] [place] [address] Neutrophils/100 WBC (Bld) 61.8 % Normal [facility] Comment on above: Order Comment: Speci men Type: BLOOD SPECIMENOrdering Facility: [facility] Address: [address] [place] [address] Performed By: #### 5 7021-8 ####[facility] LABCLIA [id number] [place] [address] Nucleated RBC (Bld) [#/Vol] 10*3/uL Normal <0.01 [facility] Comment on above: Order Comment: Speci men Type: BLOOD SPECIMENOrdering Facility: [facility] Address: [address] [place] [address] Performed By: #### 5 7021-8 ####[facility] LABCLIA [id number] [place] [address] Nucleated RBC/100 WBC (Bld) [Ratio] 0.0 /100 WBC Normal [facility] Comment on above: Order Comment: Speci men Type: BLOOD SPECIMENOrdering Facility: [facility] Address: [address] [place] [address] Performed By: #### 5 7021-8 ####[facility] LABCLIA [id number] [place] [address] Platelet mean volume (Bld) [Entitic vol] 7.7 fL Low 9.0-12.7 [facility] Comment on above: Order Comment: Speci men Type: BLOOD SPECIMENOrdering Facility: [facility] Address: [address] [place] [address] Performed By: #### 5 7021-8 ####[facility] LABCLIA [id number] [place] [address] Platelets (Bld) [#/Vol] 176 10*3/uL Normal 150-400 [facility] Comment on above: Order Comment: Speci men Type: BLOOD SPECIMENOrdering Facility: [facility] Address: [address] [place] [address] Performed By: #### 5 7021-8 ####[facility] LABCLIA [id number] [place] [address] RBC (Bld) [#/Vol] 4.87 10*6/uL Normal 4.20-6.00 [facility] Comment on above: Order Comment: Speci men Type: BLOOD SPECIMENOrdering Facility: [facility] Address: [address] [place] [address] Performed By: #### 5 7021-8 ####[facility] LABCLIA [id number] [place] [address] WBC (Bld) [#/Vol] 6.27 10*3/uL Normal 3.70-11.00 [facility] Comment on above: Order Comment: Speci men Type: BLOOD SPECIMENOrdering Facility: [facility] Address: [address] [place] [address] Performed By: #### 5 7021-8 ####[facility] LABIA [id number] [place] [address] CNOVSPon 12-13-2024 CNOVSP Normal [facility] Comprehensive metabolic 2000 panelon 12-13-2024 Albumin [Mass/Vol] 4.3 g/dL Normal 3.9-4.9 [facility] Comment on above: Order Comment: Speci men Type: BLOOD SPECIMENOrdering Facility: [facility] Address: [address] [place] [address] Performed By: #### 2 4323-8 ####[facility] LABIA [id number] [place] [address] ALP [Catalytic activity/Vol] 80 U/L Normal 38-113 [facility] Comment on above: Order Comment: Speci men Type: BLOOD SPECIMENOrdering Facility: [facility] Address: [address] [place] [address] Performed By: #### 2 4323-8 ####[facility] LABCLIA [id number] [place] [address] ALT [Catalytic activity/Vol] 12 U/L Normal 10-54 [facility] Comment on above: Order Comment: Speci men Type: BLOOD SPECIMENOrdering Facility: [facility] Address: [address] [place] [address] Performed By: #### 2 4323-8 ####[facility] LABCLIA [id number] [place] [address] Anion gap [Moles/Vol] 9 mmol/L Normal 8-15 [facility] Comment on above: Order Comment: Speci men Type: BLOOD SPECIMENOrdering Facility: [facility] Address: [address] [place] [address] Performed By: #### 2 4323-8 ####[facility] LABCLIA [id number] [place] [address] AST [Catalytic activity/Vol] 11 U/L Low 14-40 [facility] Comment on above: Order Comment: Speci men Type: BLOOD SPECIMENOrdering Facility: [facility] Address: [address] [place] [address] Performed By: #### 2 4323-8 ####[facility] LABCLIA [id number] [place] [address] Bilirubin [Mass/Vol] 0.3 mg/dL Normal 0.2-1.3 [facility] Comment on above: Order Comment: Speci men Type: BLOOD SPECIMENOrdering Facility: [facility] Address: [address] [place] [address] Performed By: #### 2 4323-8 ####[facility] LABCLIA [id number] [place] [address] Calcium [Mass/Vol] 9.1 mg/dL Normal 8.5-10.2 [facility] Comment on above: Order Comment: Speci men Type: BLOOD SPECIMENOrdering Facility: [facility] Address: [address] [place] [address] Performed By: #### 2 4323-8 ####[facility] LABCLIA [id number] [place] [address] Chloride [Moles/Vol] 101 mmol/L Normal 98-107 [facility] Comment on above: Order Comment: Speci men Type: BLOOD SPECIMENOrdering Facility: [facility] Address: [address] [place], [place] [address] Performed By: #### 2 4323-8 ####[facility] LABCLIA [id number] [place] [address] CO2 [Moles/Vol] 25 mmol/L Normal 22-30 [facility] Comment on above: Order Comment: Speci men Type: BLOOD SPECIMENOrdering Facility: [facility] Address: [address] [place] [address] Performed By: #### 2 4323-8 ####[facility] LABCLIA [id number] [place] [address] Creatinine [Mass/Vol] 1.37 mg/dL High 0.73-1.22 [facility] Comment on above: Order Comment: Speci men Type: BLOOD SPECIMENOrdering Facility: [facility] Address: [address] [place] [address] Performed By: #### 2 4323-8 ####[facility] LABCLIA [id number] [place] [address] Creatinine and Glomerular filtration rate.predicted panel (S/P/Bld) 60 mL/min/1.73m??? Normal >=60 [facility] Comment on above: Order Comment: Speci men Type: BLOOD SPECIMENOrdering Facility: [facility] Address: [address] [place] [address] Result Comment: Torri mated Glomerular Filtration Rate [...] actual GFR. Performed By: #### 2 4323-8 ####[facility] LABCLIA [id number] [place] [address] Glucose [Mass/Vol] 93 mg/dL Normal 74-99 [facility] Comment on above: Order Comment: Speci men Type: BLOOD SPECIMENOrdering Facility: [facility] Address: [address] [place] [address] Result Comment: The [place] Diabetes Association (ADA) provides guidance for cutoff [...] Standards of Medical Care in Diabetes 2016, [place] [employer]. Diabetes Care. 2016.39(Suppl 1). Performed By: #### 2 4323-8 ####[facility] LABCLIA [id number] [place] [address] Potassium [Moles/Vol] 4.1 mmol/L Normal 3.7-5.1 [facility] Comment on above: Order Comment: Sharondai men Type: BLOOD SPECIMENOrdering Facility: [facility] Address: [address] [place] [address] Performed By: #### 2 4323-8 ####[facility] LABCLIA [id number] [place] [address] Protein [Mass/Vol] 6.6 g/dL Normal 6.3-8.0 [facility] Comment on above: Order Comment: Speci men Type: BLOOD SPECIMENOrdering Facility: [facility] Address: [address] [place] [address] Performed By: #### 2 4323-8 ####[facility] LABCLIA [id number] [place] [address] Sodium [Moles/Vol] 135 mmol/L Low 136-144 [facility] Comment on above: Order Comment: Speci men Type: BLOOD SPECIMENOrdering Facility: [facility] Address: [address] [place] [address] Performed By: #### 2 4323-8 ####[facility] LABCLIA [id number] [place] [address] Urea nitrogen [Mass/Vol] 21 mg/dL Normal 9-24 [facility] Comment on above: Order Comment: Speci men Type: BLOOD SPECIMENOrdering Facility: [facility] Address: [address] [place] [address] Performed By: #### 2 4323-8 ####[facility] LABCLIA [id number] [place] [address] Cortann Desireel-mCncon 12-14-19 25 Cortisol [Mass/Vol] 5.8 ug/dL Normal 4.8-19.5 [facility] Comment on above: Order Comment: Speci men Type: BLOOD SPECIMENOrdering Facility: [facility] Address: [address] [place] [address] Result Comment: Prov ided reference range is from 6-10 AM sample collection time.Cortisol Reference Range: 6-10 AM = 4.8-19.5 ug/dL, 4-8 PM = 2.5-11.9 ug/dL Performed By: #### 3 016-3, 2143-6 ####[facility] LABCLIA [id number] [place] [address] [place] HbA1c (Bld)on 12-13-2024 Average glucose Estimated from glycated hemoglobin (Bld) [Mass/Vol] 103 mg/dL Normal [facility] Comment on above: Order Comment: Speci men Type: BLOOD SPECIMENOrdering Facility: [facility] Address: [address] [place] [address] Result Comment: eAG: (Estimated average glucose) is a calculated value from HgbA1c and is primary care sales representative of the average blood glucose level in the last 2-3 month period. Performed By: #### 5 5454-3 ####[facility] LABCLIA [id number] [place] [id number] [place] HbA1c (Bld) [Mass fraction] 5.2 % Normal 4.3-5.6 [facility] Comment on above: Order Comment: Speci men Type: BLOOD SPECIMENOrdering Facility: [facility] Address: [address] [place] [address] Result Comment: [place] Diabetes Association guidelines indicate that patients with HgbA1c in the range 5.7-6.4% are at increased risk for development of diabetes, and intervention by lifestyle modification may be beneficial. HgbA1c greater or equal to 6.5% is considered diagnostic of diabetes. Performed By: #### 5 [id number] ####[facility] LABIA [id number] [place] [address] [place] TSH SerPl-aCncon 12-13-2024 TSH Qn 4.070 m[IU]/L Normal 0.270-4.200 [facility] Comment on above: Order Comment: Speci men Type: BLOOD SPECIMENOrdering Facility: [facility] Address: [address] [place] [address] Performed By: #### 3 016-3, 2143-6 ####[facility] LABIA [id number] [place] [address] [place] BIOAVAILABLE TESTOSTERONE, A DULT MALEon 11-01-2024 Albumin [Mass/Vol] 4.8 g/dL Normal 3.9-4.9 [facility] Comment on above: Order Comment: Speci men Type: BLOOD SPECIMENOrdering Facility: [facility] Address: [address] [place] [address] Performed By: #### S QBTESTM ####[facility] LABCLIA [id number] [place] [address] [place] Sex hormone binding globulin [Moles/Vol] 54 nmol/L Normal 14-82 [facility] Comment on above: Order Comment: Speci men Type: BLOOD SPECIMENOrdering Facility: [facility] Address: [address] [place] [address] Performed By: #### S QBTESTM ####[facility] LABCLIA [id number] [place] [address] [place] Testosterone [Mass/Vol] 594 ng/dL Normal 193-824 [facility] Comment on above: Order Comment: Speci men Type: BLOOD SPECIMENOrdering Facility: [facility] Address: [address] [place] [address] Result Comment: A te stosterone level in the 193-320 ng/dL range with associated clinical symptoms is considered low and may indicate hypogonadism (from [facility] 2010 363:123-135). Results >320 ng/dL are considered normal. Performed By: #### S QBTESTM ####[facility] LABCLIA [id number] [place] [address] [place] TSTBIO 247.4 ng/dL Normal 105.0-324.0 [facility] Comment on above: Order Comment: Speci men Type: BLOOD SPECIMENOrdering Facility: [facility] Address: [address] [place] [address] Performed By: #### S QBTESTM ####[facility] LABCLIA [id number] [place] [address] [place] TSTFRC 82.5 pg/mL Normal 38.0-120.0 [facility] Comment on above: Order Comment: Speci men Type: BLOOD SPECIMENOrdering Facility: [facility] Address: [address] [place] [address] Performed By: #### S QBTESTM ####[facility] LABCLIA [id number] [place] [address] [place] TSTFRP 1.4 % Normal 1.1-2.6 [facility] Comment on above: Order Comment: Speci men Type: BLOOD SPECIMENOrdering Facility: [facility] Address: [address] [place] [address] Performed By: #### S QBTESTM ####[facility] LABCLIA [id number] [place] [address] [place] CBC W Auto Differential pane l (Bld)on 11-01-2024 Basophils (Bld) [#/Vol] 0.05 10*3/uL Normal <0.11 [facility] Comment on above: Order Comment: Speci men Type: BLOOD SPECIMENOrdering Facility: [facility] Address: [address] [place] [address] Performed By: #### 5 7021-8 ####[facility] LABCLIA [id number] [place] [address] Basophils/100 WBC (Bld) 0.7 % Normal [facility] Comment on above: Order Comment: Speci men Type: BLOOD SPECIMENOrdering Facility: [facility] Address: [address] [place] [address] Performed By: #### 5 7021-8 ####[facility] LABCLIA [id number] [place] [address] Differential cell count method Nom (Bld) Auto Normal [facility] Comment on above: Order Comment: Speci men Type: BLOOD SPECIMENOrdering Facility: [facility] Address: [address] [place] [address] Performed By: #### 5 7021-8 ####[facility] LABCLIA [id number] [place] [address] Eosinophils (Bld) [#/Vol] 0.48 10*3/uL High <0.46 [facility] Comment on above: Order Comment: Speci men Type: BLOOD SPECIMENOrdering Facility: [facility] Address: [address] [place] [address] Performed By: #### 5 7021-8 ####[facility] LABCLIA [id number] [place] [address] Eosinophils/100 WBC (Bld) 6.5 % Normal [facility] Comment on above: Order Comment: Speci men Type: BLOOD SPECIMENOrdering Facility: [facility] Address: [address] [place] [address] Performed By: #### 5 7021-8 ####[facility] LABCLIA [id number] [place] [address] Erythrocyte distribution width (RBC) [Ratio] 12.6 % Normal 11.5-15.0 [facility] Comment on above: Order Comment: Speci men Type: BLOOD SPECIMENOrdering Facility: [facility] Address: [address] [place] [address] Performed By: #### 5 7021-8 ####[facility] LABCLIA [id number] [place] [address] Hematocrit (Bld) [Volume fraction] 44.2 % Normal 39.0-51.0 [facility] Comment on above: Order Comment: Speci men Type: BLOOD SPECIMENOrdering Facility: [facility] Address: [address] [place] [address] Performed By: #### 5 7021-8 ####[facility] LABCLIA [id number] [place] [address] Hemoglobin (Bld) [Mass/Vol] 15.1 g/dL Normal 13.0-17.0 [facility] Comment on above: Order Comment: Speci men Type: BLOOD SPECIMENOrdering Facility: [facility] Address: [address] [place] [address] Performed By: #### 5 7021-8 ####[facility] LABIA [id number] [place] [address] Immature granulocytes (Bld) [#/Vol] 10*3/uL Normal <0.10 [facility] Comment on above: Order Comment: Speci men Type: BLOOD SPECIMENOrdering Facility: [facility] Address: [address] [place] [address] Performed By: #### 5 7021-8 ####[facility] LABCLIA [id number] [place] [address] Immature granulocytes/100 WBC (Bld) 0.3 % Normal [facility] Comment on above: Order Comment: Speci men Type: BLOOD SPECIMENOrdering Facility: [facility] Address: [address] [place] [address] Performed By: #### 5 7021-8 ####[facility] LABCLIA [id number] [place] [address] Lymphocytes (Bld) [#/Vol] 1.29 10*3/uL Normal 1.00-4.00 [facility] Comment on above: Order Comment: Speci men Type: BLOOD SPECIMENOrdering Facility: [facility] Address: [address] [place] [address] Performed By: #### 5 7021-8 ####[facility] LABCLIA [id number] [place] [address] Lymphocytes/100 WBC (Bld) 17.5 % Normal [facility] Comment on above: Order Comment: Speci men Type: BLOOD SPECIMENOrdering Facility: [facility] Address: [address] [place] [address] Performed By: #### 5 7021-8 ####[facility] LABCLIA [id number] [place] [address] MCH (RBC) [Entitic mass] 29.3 pg Normal 26.0-34.0 [facility] Comment on above: Order Comment: Speci men Type: BLOOD SPECIMENOrdering Facility: [facility] Address: [address] [place] [address] Performed By: #### 5 7021-8 ####[facility] LABCLIA [id number] [place] [address] MCHC (RBC) [Mass/Vol] 34.2 g/dL Normal 30.5-36.0 [facility] Comment on above: Order Comment: Speci men Type: BLOOD SPECIMENOrdering Facility: [facility] Address: [address] [place] [address] Performed By: #### 5 7021-8 ####[facility] LABCLIA [id number] [place] [address] MCV (RBC) [Entitic vol] 85.8 fL Normal 80.0-100.0 [facility] Comment on above: Order Comment: Speci men Type: BLOOD SPECIMENOrdering Facility: [facility] Address: [address] [place] [address] Performed By: #### 5 7021-8 ####[facility] LABCLIA [id number] [place] [address] Monocytes (Bld) [#/Vol] 0.68 10*3/uL Normal <0.87 [facility] Comment on above: Order Comment: Speci men Type: BLOOD SPECIMENOrdering Facility: [facility] Address: [address] [place] [address] Performed By: #### 5 7021-8 ####[facility] LABIA [id number] [place] [address] Monocytes/100 WBC (Bld) 9.2 % Normal [facility] Comment on above: Order Comment: Speci men Type: BLOOD SPECIMENOrdering Facility: [facility] Address: [address] [place] [address] Performed By: #### 5 7021-8 ####[facility] LABCLIA [id number] [place] [address] Neutrophils (Bld) [#/Vol] 4.84 10*3/uL Normal 1.45-7.50 [facility] Comment on above: Order Comment: Speci men Type: BLOOD SPECIMENOrdering Facility: [facility] Address: [address] [place] [address] Performed By: #### 5 7021-8 ####[facility] LABCLIA [id number] [place] [address] Neutrophils/100 WBC (Bld) 65.8 % Normal [facility] Comment on above: Order Comment: Speci men Type: BLOOD SPECIMENOrdering Facility: [facility] Address: [address] [place] [address] Performed By: #### 5 7021-8 ####[facility] LABCLIA [id number] [place] [address] Nucleated RBC (Bld) [#/Vol] 10*3/uL Normal <0.01 [facility] Comment on above: Order Comment: Speci men Type: BLOOD SPECIMENOrdering Facility: [facility] Address: [address] [place] [address] Performed By: #### 5 7021-8 ####[facility] LABCLIA [id number] [place] [address] Nucleated RBC/100 WBC (Bld) [Ratio] 0.0 /100 WBC Normal [facility] Comment on above: Order Comment: Speci men Type: BLOOD SPECIMENOrdering Facility: [facility] Address: [address] [place] [address] Performed By: #### 5 7021-8 ####[facility] LABCLIA [id number] [place] [address] Platelet mean volume (Bld) [Entitic vol] 8.4 fL Low 9.0-12.7 [facility] Comment on above: Order Comment: Speci men Type: BLOOD SPECIMENOrdering Facility: [facility] Address: [address] [place] [address] Performed By: #### 5 7021-8 ####[facility] LABCLIA [id number] [place] [address] Platelets (Bld) [#/Vol] 172 10*3/uL Normal 150-400 [facility] Comment on above: Order Comment: Speci men Type: BLOOD SPECIMENOrdering Facility: [facility] Address: [address] [place] [address] Performed By: #### 5 7021-8 ####[facility] LABCLIA [id number] [place] [address] RBC (Bld) [#/Vol] 5.15 10*6/uL Normal 4.20-6.00 [facility] Comment on above: Order Comment: Speci men Type: BLOOD SPECIMENOrdering Facility: [facility] Address: [address] [place] [address] Performed By: #### 5 7021-8 ####[facility] LABIA [id number] [place] [address] WBC (Bld) [#/Vol] 7.36 10*3/uL Normal 3.70-11.00 [facility] Comment on above: Order Comment: Speci men Type: BLOOD SPECIMENOrdering Facility: [facility] Address: [address] [place] [address] Performed By: #### 5 7021-8 ####[facility] LABIA [id number] [place] [address] CNOVSPon 11-01-2024 CNOVSP Normal [facility] Comprehensive metabolic 2000 panelon 11-01-2024 Albumin [Mass/Vol] 4.8 g/dL Normal 3.9-4.9 [facility] Comment on above: Order Comment: Speci men Type: BLOOD SPECIMENOrdering Facility: [facility] Address: [address] [place] [address] Performed By: #### 2 4323-8 ####[facility] LABIA [id number] [place] [address] ALP [Catalytic activity/Vol] 86 U/L Normal 38-113 [facility] Comment on above: Order Comment: Speci men Type: BLOOD SPECIMENOrdering Facility: [facility] Address: [address] [place] [address] Performed By: #### 2 4323-8 ####[facility] LABCLIA [id number] [place] [address] ALT [Catalytic activity/Vol] 19 U/L Normal 10-54 [facility] Comment on above: Order Comment: Speci men Type: BLOOD SPECIMENOrdering Facility: [facility] Address: [address] [place], [place] [address] Performed By: #### 2 4323-8 ####[facility] LABCLIA [id number] [place] [address] Anion gap [Moles/Vol] 8 mmol/L Normal 8-15 [facility] Comment on above: Order Comment: Speci men Type: BLOOD SPECIMENOrdering Facility: [facility] Address: [address] [place] [address] Performed By: #### 2 4323-8 ####[facility] LABCLIA [id number] [place] [address] AST [Catalytic activity/Vol] 12 U/L Low 14-40 [facility] Comment on above: Order Comment: Speci men Type: BLOOD SPECIMENOrdering Facility: [facility] Address: [address] [place] [address] Performed By: #### 2 4323-8 ####[facility] LABCLIA [id number] [place] [address] Bilirubin [Mass/Vol] 0.4 mg/dL Normal 0.2-1.3 [facility] Comment on above: Order Comment: Speci men Type: BLOOD SPECIMENOrdering Facility: [facility] Address: [address] [place] [address] Performed By: #### 2 4323-8 ####[facility] LABCLIA [id number] [place] [address] Calcium [Mass/Vol] 10.0 mg/dL Normal 8.5-10.2 [facility] Comment on above: Order Comment: Speci men Type: BLOOD SPECIMENOrdering Facility: [facility] Address: [address] [place] [address] Performed By: #### 2 4323-8 ####[facility] LABCLIA [id number] [place] [address] Chloride [Moles/Vol] 101 mmol/L Normal 98-107 [facility] Comment on above: Order Comment: Speci men Type: BLOOD SPECIMENOrdering Facility: [facility] Address: [address] [place] [address] Performed By: #### 2 4323-8 ####[facility] LABCLIA [id number] [place] [address] CO2 [Moles/Vol] 28 mmol/L Normal 22-30 [facility] Comment on above: Order Comment: Speci men Type: BLOOD SPECIMENOrdering Facility: [facility] Address: [address] [place] [address] Performed By: #### 2 4323-8 ####[facility] LABCLIA [id number] [place] [address] Creatinine [Mass/Vol] 1.48 mg/dL High 0.73-1.22 [facility] Comment on above: Order Comment: Speci men Type: BLOOD SPECIMENOrdering Facility: [facility] Address: [address] [place] [address] Performed By: #### 2 4323-8 ####[facility] LABCLIA [id number] [place] [address] Creatinine and Glomerular filtration rate.predicted panel (S/P/Bld) 55 mL/min/1.73m??? Low >=60 [facility] Comment on above: Order Comment: Speci men Type: BLOOD SPECIMENOrdering Facility: [facility] Address: [address] [place] [address] Result Comment: Torri mated Glomerular Filtration Rate [...] actual GFR. Performed By: #### 2 4323-8 ####[facility] LABCLIA [id number] [place] [address] Glucose [Mass/Vol] 99 mg/dL Normal 74-99 [facility] Comment on above: Order Comment: Richard perez Type: BLOOD SPECIMENOrdering Facility: [facility] Address: [address] [place] [address] Result Comment: The [place] Diabetes Association (ADA) provides guidance for cutoff [...] Standards of Medical Care in Diabetes 2016, [place] [employer] Association. Diabetes Care. 2016.39(Suppl 1). Performed By: #### 2 4323-8 ####[facility] LABCLIA [id number] [place] [address] Potassium [Moles/Vol] 4.0 mmol/L Normal 3.7-5.1 [facility] Comment on above: Order Comment: Richard perez Type: BLOOD SPECIMENOrdering Facility: [facility] Address: [address] [place] [address] Performed By: #### 2 4323-8 ####[facility] LABCLIA [id number] [place] [address] Protein [Mass/Vol] 7.2 g/dL Normal 6.3-8.0 [facility] Comment on above: Order Comment: Richard perez Type: BLOOD SPECIMENOrdering Facility: [facility] Address: [address] [place] [address] Performed By: #### 2 4323-8 ####[facility] LABCLIA [id number] [place] [address] Sodium [Moles/Vol] 137 mmol/L Normal 136-144 [facility] Comment on above: Order Comment: Speci men Type: BLOOD SPECIMENOrdering Facility: [facility] Address: [address] [place] [address] Performed By: #### 2 4323-8 ####[facility] LABCLIA [id number] [place] [address] Urea nitrogen [Mass/Vol] 22 mg/dL Normal 9-24 [facility] Comment on above: Order Comment: Speci men Type: BLOOD SPECIMENOrdering Facility: [facility] Address: [address] [place] [address] Performed By: #### 2 4323-8 ####[facility] LABCLIA [id number] [place] [address] Cortis SerPl-mCncon 11-01-19 Cortisol [Mass/Vol] 6.7 ug/dL Normal 4.8-19.5 [facility] Comment on above: Order Comment: Speci men Type: BLOOD SPECIMENOrdering Facility: [facility] Address: [address] [place] [address] Result Comment: Prov ided reference range is from 6-10 AM sample collection time.Cortisol Reference Range: 6-10 AM = 4.8-19.5 ug/dL, 4-8 PM = 2.5-11.9 ug/dL Performed By: #### 3 016-3, 2143-6 ####[facility] LABCLIA [id number] [place] [address] [place] FSH SerPl-aCncon 11-01-2024 Follitropin Qn 20.1 m[IU]/mL High 1.5-12.4 [facility] Comment on above: Order Comment: Speci men Type: BLOOD SPECIMENOrdering Facility: [facility] Address: [address] [place] [address] Performed By: #### 1 5067-2, 3024-7, 2842-3, 83165-9 ####[facility] LABCLIA [id number] [address] [place] HbA1c (Bld)on 11-01-2024 Average glucose Estimated from glycated hemoglobin (Bld) [Mass/Vol] 103 mg/dL Normal [facility] Comment on above: Order Comment: Richard [facility] Type: BLOOD SPECIMENOrdering Facility: [facility] Address: [address] [place] [address] Result Comment: eAG: (Estimated average glucose) is a calculated value from HgbA1c and is primary care sales representative of the average blood glucose level in the last 2-3 month period. Performed By: #### 5 5454-3 ####[facility] LABIA [id number] [address] [facility] HbA1c (Bld) [Mass fraction] 5.2 % Normal 4.3-5.6 [facility] Comment on above: Order Comment: Richard [facility] Type: BLOOD SPECIMENOrdering Facility: [facility] Address: [address] [place] [address] Result Comment: [place] Diabetes Association guidelines indicate that patients with HgbA1c in the range 5.7-6.4% are at increased risk for development of diabetes, and intervention by lifestyle modification may be beneficial. HgbA1c greater or equal to 6.5% is considered diagnostic of diabetes. Performed By: #### 5 5454-3 ####[facility] LABIA [id number] [place] [address] [place] LH SerPl-aCncon 11-01-2024 Lutropin Qn 12.7 m[IU]/mL High 1.8-10.8 [facility] Comment on above: Order Comment: Sharondaavery [facility] Type: BLOOD SPECIMENOrdering Facility: [facility] Address: [address] [place] [address] Performed By: #### 1 5067-2, 3024-7, 2842-3, 59132-5 ####[facility] LABCLIA [id number] [place] [address] [place] Prolactin SerPl-mCncon 11-01 Prolactin [Mass/Vol] 9.0 ng/mL Normal 4.1-25.1 [facility] Comment on above: Order Comment: Speci men Type: BLOOD SPECIMENOrdering Facility: [facility] Address: [address] [place] [address] Result Comment: Prol actin test is performed using the [employer] Electrochemiluminescence Immunoassay method. Results obtained with different methods or kits cannot be used interchangeably. Performed By: #### 1 5067-2, 3024-7, 2842-3, 80459-6 ####[facility] [id number] [place] [address] [place] T4 Free SerPl-mCncon 025 Free T4 [Mass/Vol] 1.5 ng/dL Normal 0.9-1.7 [facility] Comment on above: Order Comment: Speci men Type: BLOOD SPECIMENOrdering Facility: [facility] Address: [address] [place] [address] Performed By: #### 1 5067-2, 3024-7, 2842-3, 61729-9 ####[facility] LABIA [id number] [place] [address] [place] TSH SerPl-aCncon 11-01-2024 TSH Qn 4.700 m[IU]/L High 0.270-4.200 [facility] Comment on above: Order Comment: Speci men Type: BLOOD SPECIMENOrdering Facility: [facility] Address: [address] [place] [address] Performed By: #### 3 016-3, 2143-6 ####[facility] LABIA [id number] [place] [address] [place] CNOVon 10-31-2024 CNOV Normal [facility] CT CHEST WO IVCONon 10-31-19 CT CHEST WO IVCON Normal [facility] CT Chest WO contraston 10-31 IMPRESSION: 1. Interval decrease in size of treated right upper lobe nodules, superior lesion demonstrating more pronounced decrease in size. The more inferiorly located nodule demonstrates trilaterally ablation and measures smaller than treatment planning CT dated 06/28/2024 but remains larger than 05/03/2024 exam. Consider close follow-up. 2. New opacities are noted mostly in the right upper lobe, probably treatment related (radiation pneumonitis?), Although there are more localized opacities visible as well. Elongated mucous plugging of right upper lobe anterior segment bronchus presumed. 3. Difficult to assess hilar region lymph nodes. Some of the mediastinal lymph nodes may measure similar to 06/28/2024 exam but are slightly larger compared to 05/03/2024 exam. Attention on follow-up recommended. Presumed prior granulomatous infection. School Occupational Therapist: JALEN Transcribe Date/Time: Oct 31 2024 10:58A Dictated by : ELISEO DORSEY MD This examination was interpreted and the report reviewed and electronically signed by: ELISEO DORSEY MD on Oct 31 2024 11:22AM [facility] DIVISION OF RADIOLOGY * * *Final Report* * * DATE OF EXAM: Oct 31 2024 10:31AM [facility] 0541 - CT CHEST WO IVCON / PROCEDURE REASON: Neoplasm of lung * * * * Physician Interpretation * * * * EXAMINATION: CHEST CT WITHOUT CONTRAST CLINICAL HISTORY: 59-year-old male former 35 pack year smoker, quit 2022; former smokeless tobacco user; occasional EtOH, marijuana not currently; HPV positive BOT SCC ; Oligoprogressive 2 RUL lung metastases, from previously treated H&N cancer. Treatment History: - 1. Concurrent Cisplatin and XRT 11/21/2021- XRTY completed 01/06/2023 and last dose of chemo 12/21/2022 (Total [place] dose= 200 mg/m2) - 2 . Recurrence in the Lung Biopsy proven 08/2023: PDL-1 insufficient and KRAS G12A, PIK3CA (Targeted Oncology only due to sample) - 3. Carbo/Taxol ad Pembro 09/26/2023-12/11/2023 (Cycle 4) with response, Pembro monotherapy ; status post right upper lung SBRT 3400 cGy in 1 fx, 07/05/2024 Technique: Spiral CT acquisition of the chest from the thoracic inlet to the upper abdomen without contrast. MQ: CTCWO_6 CT Radiation dose: Integrated Dose-length product (DLP) for this visit = 302 mGy*cm CT Dose Reduction Employed: Automated exposure control (AEC) Comparison: 05/03/2024, treatment planning CT dated 06/28/2024 RESULT: Limitations: Minimal cardiac pulsation related motion noted. Gre Instructor (topogram) images: No additional findings. Lines, tubes, and devices: None. Lung parenchyma: On lung windows, mostly clear central airways aside from elongated mucous plugging of anterior segment bronchus, image 79 series 3, new since 05/03/2024 (pretreatment) CT. Within right upper lobe, 7 x 9 mm nodular lesion is seen, diminished in size and probably intrinsic attenuation, previously 17 x 14 mm on 06/28/2024, and 16 x 13 mm on 05/03/2024 exam. More inferiorly, probably associated with lateral subsegment distribution of anterior segment, trilobed nodule measuring 12 x 14 mm is noted on image 84, and measured 17 x 19 mm on 06/28/[address] (was about 9 x 10 mm on 05/03/2024 exam). There are new localized opacities noted posteriorly within right upper lobe images 83, 87, along with subtle groundglass attenuation opacities, and are presumably related to post radiation changes. New part solid nodule less likely. No other new nodular lesions appreciated. Minimal biapical subpleural stranding/scarring. Calcified granuloma right apex. Pleural space: No pleural effusion. No pneumothorax. Lower neck, lymph nodes, and mediastinum: Visualized portions of the thyroid appear stable and mildly atrophic. No progressive axillary or supraclavicular lymphadenopathy meeting size criteria noted. Intrathoracically, no progressive intrathoracic lymphadenopathy meeting size criteria noted. Minimally calcified right lower paratracheal and hilar lymph nodes suspected, images 82-86 series 4. 10 mm subcarinal lymph node noted on image 88, probably similar to 06/28/2024, although it may be slightly larger compared to 05/03/2024 exam. Multiple subcentimeter subaortic level and prevascular level lymph nodes noted. Distal retroesophageal 8mm lymph node noted on image 167, previously about 7-8mm. Heart, pericardium, and thoracic vessels: Focal atherosclerotic calcifications of the aorta and its branches noted. Ascending aorta is 40 mm, borderline dilated. Pulmonary trunk is 31 mm, or lying dilated. LAD, circumflex and right coronary artery calcifications noted, overall mild-moderate. Normal heart size noted. No pericardial effusion. Stable esophagus noted. Question tiny hiatal hernia. Bones and soft tissues: Chest wall soft tissue structures are stable. Minimal retroareolar glandular tissues noted. On bone window images, bones appear mildly osteopenic. Mild-moderate degenerative changes of the spine. Subtle posttraumatic changes of bilateral ribs and right clavicle. Upper abdomen: Debris-filled distended stomach noted. Otherwise stable unenhanced upper abdominal structures. DIVISION OF RADIOLOGY Provider, [facility] - 10/31/2024 * * *Final Report* * * DATE OF EXAM: Oct 31 2024 10:31AM CAC 0541 - CT CHEST WO IVCON / PROCEDURE REASON: Neoplasm of lung * * * * Physician Interpretation * * * * EXAMINATION: CHEST CT WITHOUT CONTRAST CLINICAL HISTORY: 59-year-old male former 35 pack year smoker, quit 2022; former smokeless tobacco user; occasional EtOH, marijuana not currently; HPV positive BOT SCC ; Oligoprogressive 2 RUL lung metastases, from previously treated H&N cancer. Treatment History: - 1. Concurrent Cisplatin and XRT 11/21/2021- XRTY completed 01/06/2023 and last dose of chemo 12/21/2022 (Total Hoopa dose= 200 mg/m2) - 2 . Recurrence in the Lung Biopsy proven 08/2023: PDL-1 insufficient and KRAS G12A, PIK3CA (Targeted Oncology only due to sample) - 3. Carbo/Taxol ad Pembro 09/26/2023-12/11/2023 (Cycle 4) with response, Pembro monotherapy ; status post right upper lung SBRT 3400 cGy in 1 fx, 07/05/2024 Technique: Spiral CT acquisition of the chest from the thoracic inlet to the upper abdomen without contrast. MQ: CTCWO_6 CT Radiation dose: Integrated Dose-length product (DLP) for this visit = 302 mGy*cm CT Dose Reduction Employed: Automated exposure control (AEC) Comparison: 05/03/2024, treatment planning CT dated 06/28/2024 RESULT: Limitations: Minimal cardiac pulsation related motion noted. Gre Instructor (topogram) images: No additional findings. Lines, tubes, and devices: None. Lung parenchyma: On lung windows, mostly clear central airways aside from elongated mucous plugging of anterior segment bronchus, image 79 series 3, new since 05/03/2024 (pretreatment) CT. Within right upper lobe, 7 x 9 mm nodular lesion is seen, diminished in size and probably intrinsic attenuation, previously 17 x 14 mm on 06/28/2024, and 16 x 13 mm on 05/03/2024 exam. More inferiorly, probably associated with lateral subsegment distribution of anterior segment, trilobed nodule measuring 12 x 14 mm is noted on image 84, and measured 17 x 19 mm on 06/28/[address] (was about 9 x 10 mm on 05/03/2024 exam). There are new localized opacities noted posteriorly within right upper lobe images 83, 87, along with subtle groundglass attenuation opacities, and are presumably related to post radiation changes. New part solid nodule less likely. No other new nodular lesions appreciated. Minimal biapical subpleural stranding/scarring. Calcified granuloma right apex. Pleural space: No pleural effusion. No pneumothorax. Lower neck, lymph nodes, and mediastinum: Visualized portions of the thyroid appear stable and mildly atrophic. No progressive axillary or supraclavicular lymphadenopathy meeting size criteria noted. Intrathoracically, no progressive intrathoracic lymphadenopathy meeting size criteria noted. Minimally calcified right lower paratracheal and hilar lymph nodes suspected, images 82-86 series 4. 10 mm subcarinal lymph node noted on image 88, probably similar to 06/28/2024, although it may be slightly larger compared to 05/03/2024 exam. Multiple subcentimeter subaortic level and prevascular level lymph nodes noted. Distal retroesophageal 8mm lymph node noted on image 167, previously about 7-8mm. Heart, pericardium, and thoracic vessels: Focal atherosclerotic calcifications of the aorta and its branches noted. Ascending aorta is 40 mm, borderline dilated. Pulmonary trunk is 31 mm, or lying dilated. LAD, circumflex and right coronary artery calcifications noted, overall mild-moderate. Normal heart size noted. No pericardial effusion. Stable esophagus noted. Question tiny hiatal hernia. Bones and soft tissues: Chest wall soft tissue structures are stable. Minimal retroareolar glandular tissues noted. On bone window images, bones appear mildly osteopenic. Mild-moderate degenerative changes of the spine. Subtle posttraumatic changes of bilateral ribs and right clavicle. Upper abdomen: Debris-filled distended stomach noted. Otherwise stable unenhanced upper abdominal structures. IMPRESSION IMPRESSION: 1. Interval decrease in size of treated right upper lobe nodules, superior lesion demonstrating more pronounced decrease in size. The more inferiorly located nodule demonstrates trilaterally ablation and measures smaller than treatment planning CT dated 06/28/2024 but remains larger than 05/03/2024 exam. Consider close follow-up. 2. New opacities are noted mostly in the right upper lobe, probably treatment related (radiation pneumonitis?), Although there are more localized opacities visible as well. Elongated mucous plugging of right upper lobe anterior segment bronchus presumed. 3. Difficult to assess hilar region lymph nodes. Some of the mediastinal lymph nodes may measure similar to 06/28/2024 exam but are slightly larger compared to 05/03/2024 exa (more content not included)... [facility] [place] Radiology Study observation (narrative) [facility] CT Chest WO contrastOrdered By: [facility] Provider on 10-31-2024 [facility] CBC W Auto Differential pane l (Bld)on 09-13-2024 Basophils (Bld) [#/Vol] 0.04 10*3/uL Normal <0.11 [facility] Comment on above: Order Comment: Speci men Type: BLOOD SPECIMENOrdering Facility: [facility] Address: [address] [place] [address] Performed By: #### 5 7021-8 ####[facility] LABCLIA [id number] [place] [address] Basophils/100 WBC (Bld) 0.7 % Normal [facility] Comment on above: Order Comment: Speci men Type: BLOOD SPECIMENOrdering Facility: [facility] Address: [address] [place] [address] Performed By: #### 5 7021-8 ####[facility] LABCLIA [id number] [place] [address] Differential cell count method Nom (Bld) Auto Normal [facility] Comment on above: Order Comment: Speci men Type: BLOOD SPECIMENOrdering Facility: [facility] Address: [address] [place] [address] Performed By: #### 5 7021-8 ####[facility] LABCLIA [id number] [place] [address] Eosinophils (Bld) [#/Vol] 0.39 10*3/uL Normal <0.46 [facility] Comment on above: Order Comment: Speci men Type: BLOOD SPECIMENOrdering Facility: [facility] Address: [address] [place] [address] Performed By: #### 5 7021-8 ####[facility] LABCLIA [id number] [place] [address] Eosinophils/100 WBC (Bld) 6.5 % Normal [facility] Comment on above: Order Comment: Speci men Type: BLOOD SPECIMENOrdering Facility: [facility] Address: [address] [place] [address] Performed By: #### 5 7021-8 ####[facility] LABCLIA [id number] [place] [address] Erythrocyte distribution width (RBC) [Ratio] 12.6 % Normal 11.5-15.0 [facility] Comment on above: Order Comment: Speci men Type: BLOOD SPECIMENOrdering Facility: [facility] Address: [address] [place] [address] Performed By: #### 5 7021-8 ####[facility] LABCLIA [id number] [place] [address] Hematocrit (Bld) [Volume fraction] 44.6 % Normal 39.0-51.0 [facility] Comment on above: Order Comment: Speci men Type: BLOOD SPECIMENOrdering Facility: [facility] Address: [address] [place] [address] Performed By: #### 5 7021-8 ####[facility] LABCLIA [id number] [place] [address] Hemoglobin (Bld) [Mass/Vol] 15.3 g/dL Normal 13.0-17.0 [facility] Comment on above: Order Comment: Speci men Type: BLOOD SPECIMENOrdering Facility: [facility] Address: [address] [place] [address] Performed By: #### 5 7021-8 ####[facility] LABCLIA [id number] [place] [address] Immature granulocytes (Bld) [#/Vol] 10*3/uL Normal <0.10 [facility] Comment on above: Order Comment: Speci men Type: BLOOD SPECIMENOrdering Facility: [facility] Address: [address] [place] [address] Performed By: #### 5 7021-8 ####[facility] LABCLIA [id number] [place] [address] Immature granulocytes/100 WBC (Bld) 0.3 % Normal [facility] Comment on above: Order Comment: Speci men Type: BLOOD SPECIMENOrdering Facility: [facility] Address: [address] [place] [address] Performed By: #### 5 7021-8 ####[facility] LABCLIA [id number] [place] [address] Lymphocytes (Bld) [#/Vol] 1.07 10*3/uL Normal 1.00-4.00 [facility] Comment on above: Order Comment: Speci men Type: BLOOD SPECIMENOrdering Facility: [facility] Address: [address] [place] [address] Performed By: #### 5 7021-8 ####[facility] LABCLIA [id number] [place] [address] Lymphocytes/100 WBC (Bld) 17.9 % Normal [facility] Comment on above: Order Comment: Speci men Type: BLOOD SPECIMENOrdering Facility: [facility] Address: [address] [place] [address] Performed By: #### 5 7021-8 ####[facility] LABCLIA [id number] [place] [address] MCH (RBC) [Entitic mass] 29.3 pg Normal 26.0-34.0 [facility] Comment on above: Order Comment: Speci men Type: BLOOD SPECIMENOrdering Facility: [facility] Address: [address] [place] [address] Performed By: #### 5 7021-8 ####[facility] LABCLIA [id number] [place] [address] MCHC (RBC) [Mass/Vol] 34.3 g/dL Normal 30.5-36.0 [facility] Comment on above: Order Comment: Speci men Type: BLOOD SPECIMENOrdering Facility: [facility] Address: [address] [place] [address] Performed By: #### 5 7021-8 ####[facility] LABIA [id number] [place] [address] MCV (RBC) [Entitic vol] 85.3 fL Normal 80.0-100.0 [facility] Comment on above: Order Comment: Speci men Type: BLOOD SPECIMENOrdering Facility: [facility] Address: [address] [place] [address] Performed By: #### 5 7021-8 ####[facility] LABIA [id number] [place] [address] Monocytes (Bld) [#/Vol] 0.60 10*3/uL Normal <0.87 [facility] Comment on above: Order Comment: Speci men Type: BLOOD SPECIMENOrdering Facility: [facility] Address: [address] [place] [address] Performed By: #### 5 7021-8 ####[facility] LABCLIA [id number] [place] [address] Monocytes/100 WBC (Bld) 10.0 % Normal [facility] Comment on above: Order Comment: Speci men Type: BLOOD SPECIMENOrdering Facility: [facility] Address: [address] [place] [address] Performed By: #### 5 7021-8 ####[facility] LABCLIA [id number] [place] [address] Neutrophils (Bld) [#/Vol] 3.86 10*3/uL Normal 1.45-7.50 [facility] Comment on above: Order Comment: Speci men Type: BLOOD SPECIMENOrdering Facility: [facility] Address: [address] [place] [address] Performed By: #### 5 7021-8 ####[facility] LABCLIA [id number] [place] [address] Neutrophils/100 WBC (Bld) 64.6 % Normal [facility] Comment on above: Order Comment: Speci men Type: BLOOD SPECIMENOrdering Facility: [facility] Address: [address] [place] [address] Performed By: #### 5 7021-8 ####[facility] LABCLIA [id number] [place] [address] Nucleated RBC (Bld) [#/Vol] 10*3/uL Normal <0.01 [facility] Comment on above: Order Comment: Speci men Type: BLOOD SPECIMENOrdering Facility: [facility] Address: [address] [place] [address] Performed By: #### 5 7021-8 ####[facility] LABIA [id number] [place] [address] Nucleated RBC/100 WBC (Bld) [Ratio] 0.0 /100 WBC Normal [facility] Comment on above: Order Comment: Speci men Type: BLOOD SPECIMENOrdering Facility: [facility] Address: [address] [place] [address] Performed By: #### 5 7021-8 ####[facility] LABCLIA [id number] [place] [address] Platelet mean volume (Bld) [Entitic vol] 8.2 fL Low 9.0-12.7 [facility] Comment on above: Order Comment: Speci men Type: BLOOD SPECIMENOrdering Facility: [facility] Address: [address] [place] [address] Performed By: #### 5 7021-8 ####[facility] LABCLIA [id number] [place] [address] Platelets (Bld) [#/Vol] 172 10*3/uL Normal 150-400 [facility] Comment on above: Order Comment: Speci men Type: BLOOD SPECIMENOrdering Facility: [facility] Address: [address] [place] [address] Performed By: #### 5 7021-8 ####[facility] LABCLIA [id number] [place] [address] RBC (Bld) [#/Vol] 5.23 10*6/uL Normal 4.20-6.00 [facility] Comment on above: Order Comment: Speci men Type: BLOOD SPECIMENOrdering Facility: [facility] Address: [address] [place] [address] Performed By: #### 5 7021-8 ####[facility] LABCLIA [id number] [place] [address] WBC (Bld) [#/Vol] 5.98 10*3/uL Normal 3.70-11.00 [facility] Comment on above: Order Comment: Speci men Type: BLOOD SPECIMENOrdering Facility: [facility] Address: [address] [place] [address] Performed By: #### 5 7021-8 ####[facility] LABCLIA [id number] [place] [address] CNOVSPon 09-13-2024 CNOVSP Normal [facility] metabolic 2000 panelon 09-13-2024 Albumin [Mass/Vol] 4.6 g/dL Normal 3.9-4.9 [facility] Comment on above: Order Comment: Speci men Type: BLOOD SPECIMENOrdering Facility: [facility] Address: [address] [place] [address] Performed By: #### 2 4323-8 ####[facility] LABCLIA [id number] [place] [address] ALP [Catalytic activity/Vol] 89 U/L Normal 38-113 [facility] Comment on above: Order Comment: Speci men Type: BLOOD SPECIMENOrdering Facility: [facility] Address: [address] [place] [address] Performed By: #### 2 4323-8 ####[facility] LABCLIA [id number] [place] [address] ALT [Catalytic activity/Vol] 19 U/L Normal 10-54 [facility] Comment on above: Order Comment: Speci men Type: BLOOD SPECIMENOrdering Facility: [facility] Address: [address] [place] [address] Performed By: #### 2 4323-8 ####[facility] LABCLIA [id number] [place] [address] Anion gap [Moles/Vol] 10 mmol/L Normal 8-15 [facility] Comment on above: Order Comment: Speci men Type: BLOOD SPECIMENOrdering Facility: [facility] Address: [address] [place] [address] Performed By: #### 2 4323-8 ####[facility] LABCLIA [id number] [place] [address] AST [Catalytic activity/Vol] 18 U/L Normal 14-40 [facility] Comment on above: Order Comment: Speci men Type: BLOOD SPECIMENOrdering Facility: [facility] Address: [address] [place] [address] Performed By: #### 2 4323-8 ####[facility] LABCLIA [id number] [place] [address] Bilirubin [Mass/Vol] 0.4 mg/dL Normal 0.2-1.3 [facility] Comment on above: Order Comment: Speci men Type: BLOOD SPECIMENOrdering Facility: [facility] Address: [address] [place] [address] Performed By: #### 2 4323-8 ####[facility] LABCLIA [id number] [place] [address] Calcium [Mass/Vol] 9.4 mg/dL Normal 8.5-10.2 [facility] Comment on above: Order Comment: Speci men Type: BLOOD SPECIMENOrdering Facility: [facility] Address: [address] [place] [address] Performed By: #### 2 4323-8 ####[facility] LABCLIA [id number] [place] [address] Chloride [Moles/Vol] 106 mmol/L Normal 98-107 [facility] Comment on above: Order Comment: Speci men Type: BLOOD SPECIMENOrdering Facility: [facility] Address: [address] [place] [address] Performed By: #### 2 4323-8 ####[facility] LABCLIA [id number] [place] [address] CO2 [Moles/Vol] 24 mmol/L Normal 22-30 [facility] Comment on above: Order Comment: Speci men Type: BLOOD SPECIMENOrdering Facility: [facility] Address: [address] [place] [address] Performed By: #### 2 4323-8 ####[facility] LABCLIA [id number] [place] [address] Creatinine [Mass/Vol] 1.21 mg/dL Normal 0.73-1.22 [facility] Comment on above: Order Comment: Richard perez Type: BLOOD SPECIMENOrdering Facility: [facility] Address: [address] [id number] Performed By: #### 2 4323-8 ####[facility] LABCLIA [id number] [place] [address] Creatinine and Glomerular filtration rate.predicted panel (S/P/Bld) 69 mL/min/1.73m??? Normal >=60 [facility] Comment on above: Order Comment: Richard ana Type: BLOOD SPECIMENOrdering Facility: [facility] Address: [address] [place] [address] Result Comment: Torri mated Glomerular Filtration Rate [...] actual GFR. Performed By: #### 2 4323-8 ####[facility] LABCLIA [id number] [place] [address] Glucose [Mass/Vol] 101 mg/dL High 74-99 [facility] Comment on above: Order Comment: Richard ana Type: BLOOD SPECIMENOrdering Facility: [facility] Address: [address] [id number] Result Comment: The [place] [employer] (ADA) provides guidance for cutoff [...] Standards of Medical Care in Diabetes 2016, [place] [employer]. Diabetes Care. 2016.39(Suppl 1). Performed By: #### 2 4323-8 ####[facility] LABCLIA [id number] [place] [address] Potassium [Moles/Vol] 4.0 mmol/L Normal 3.7-5.1 [facility] Comment on above: Order Comment: Speci men Type: BLOOD SPECIMENOrdering Facility: [facility] Address: [address] [place] [address] Performed By: #### 2 4323-8 ####[facility] LABCLIA [id number] [place] [address] Protein [Mass/Vol] 7.0 g/dL Normal 6.3-8.0 [facility] Comment on above: Order Comment: Speci men Type: BLOOD SPECIMENOrdering Facility: [facility] Address: [address] [place] [address] Performed By: #### 2 4323-8 ####[facility] LABCLIA [id number] [place] [address] Sodium [Moles/Vol] 140 mmol/L Normal 136-144 [facility] Comment on above: Order Comment: Speci men Type: BLOOD SPECIMENOrdering Facility: [facility] Address: [address] [place] [address] Performed By: #### 2 4323-8 ####[facility] LABCLIA [id number] [place] [address] Urea nitrogen [Mass/Vol] 15 mg/dL Normal 9-24 [facility] Comment on above: Order Comment: Speci men Type: BLOOD SPECIMENOrdering Facility: [facility] Address: [address] [place] [address] Performed By: #### 2 4323-8 ####[facility] LABCLIA [id number] [place] [address] Cortis Desireel-Karissaon 12-06-20 24 Cortisol [Mass/Vol] 6.9 ug/dL Normal 4.8-19.5 [facility] Comment on above: Order Comment: Richard perez Type: BLOOD SPECIMENOrdering Facility: [facility] Address: [address] [place] [address] Result Comment: Prov ided reference range is from 6-10 AM sample collection time.Cortisol Reference Range: 6-10 AM = 4.8-19.5 ug/dL, 4-8 PM = 2.5-11.9 ug/dL Performed By: #### 3 016-3, 2143-6 ####[facility] LABCLIA [id number] [address] HbA1c (Bld)on 09-13-2024 Average glucose Estimated from glycated hemoglobin (Bld) [Mass/Vol] 97 mg/dL Normal [facility] Comment on above: Order Comment: Richard perez Type: BLOOD SPECIMENOrdering Facility: [facility] Address: [address] [place] [address] Result Comment: eAG: (Estimated average glucose) is a calculated value from HgbA1c and is primary care sales representative of the average blood glucose level in the last 2-3 month period. Performed By: #### 5 5454-3 ####[facility] LABCLIA [id number] [address] HbA1c (Bld) [Mass fraction] 5.0 % Normal 4.3-5.6 [facility] Comment on above: Order Comment: Sharondaavery perez Type: BLOOD SPECIMENOrdering Facility: [facility] Address: [address] [place] [address] Result Comment: [place] Diabetes Association guidelines indicate that patients with HgbA1c in the range 5.7-6.4% are at increased risk for development of diabetes, and intervention by lifestyle modification may be beneficial. HgbA1c greater or equal to 6.5% is considered diagnostic of diabetes. Performed By: #### 5 5454-3 ####[facility] LABCLIA [id number] [address] [place] TSH SerPl-aCncon 09-13-2024 TSH Qn 3.930 m[IU]/L Normal 0.270-4.200 [facility] Comment on above: Order Comment: Speci men Type: BLOOD SPECIMENOrdering Facility: [facility] Address: [address] [place] [address] Performed By: #### 3 016-3, 2143-6 ####[facility] LABCLIA [id number] [address] [place] CNOVon 08-09-2024 CNOV Normal [facility] CBC W Auto Differential pane l (Bld)on 08-02-2024 Basophils (Bld) [#/Vol] 0.05 10*3/uL Normal <0.11 [facility] Comment on above: Order Comment: Speci men Type: BLOOD SPECIMENOrdering Facility: [facility] Address: [address] [place] [address] Performed By: #### 5 7021-8 ####[facility] LABCLIA [id number] [place] [address] Basophils/100 WBC (Bld) 0.9 % Normal [facility] Comment on above: Order Comment: Speci men Type: BLOOD SPECIMENOrdering Facility: [facility] Address: [address] [place] [address] Performed By: #### 5 7021-8 ####[facility] LABCLIA [id number] [place] [address] Differential cell count method Nom (Bld) Auto Normal [facility] Comment on above: Order Comment: Speci men Type: BLOOD SPECIMENOrdering Facility: [facility] Address: [address] [place] [address] Performed By: #### 5 7021-8 ####[facility] LABCLIA [id number] [place] [address] Eosinophils (Bld) [#/Vol] 0.33 10*3/uL Normal <0.46 [facility] Comment on above: Order Comment: Speci men Type: BLOOD SPECIMENOrdering Facility: [facility] Address: [address] [place] [address] Performed By: #### 5 7021-8 ####[facility] LABCLIA [id number] [place] [address] Eosinophils/100 WBC (Bld) 5.7 % Normal [facility] Comment on above: Order Comment: Speci men Type: BLOOD SPECIMENOrdering Facility: [facility] Address: [address] [place] [address] Performed By: #### 5 7021-8 ####[facility] LABCLIA [id number] [place] [address] Erythrocyte distribution width (RBC) [Ratio] 12.9 % Normal 11.5-15.0 [facility] Comment on above: Order Comment: Speci men Type: BLOOD SPECIMENOrdering Facility: [facility] Address: [address] [place] [address] Performed By: #### 5 7021-8 ####[facility] LABCLIA [id number] [place] [address] Hematocrit (Bld) [Volume fraction] 42.7 % Normal 39.0-51.0 [facility] Comment on above: Order Comment: Speci men Type: BLOOD SPECIMENOrdering Facility: [facility] Address: [address] [place] [address] Performed By: #### 5 7021-8 ####[facility] LABCLIA [id number] [place] [address] Hemoglobin (Bld) [Mass/Vol] 14.8 g/dL Normal 13.0-17.0 [facility] Comment on above: Order Comment: Speci men Type: BLOOD SPECIMENOrdering Facility: [facility] Address: [address] [place] [address] Performed By: #### 5 7021-8 ####[facility] LABCLIA [id number] [place] [address] Immature granulocytes (Bld) [#/Vol] 10*3/uL Normal <0.10 [facility] Comment on above: Order Comment: Speci men Type: BLOOD SPECIMENOrdering Facility: [facility] Address: [address] [place] [address] Performed By: #### 5 7021-8 ####[facility] LABCLIA [id number] [place] [address] Immature granulocytes/100 WBC (Bld) 0.3 % Normal [facility] Comment on above: Order Comment: Speci men Type: BLOOD SPECIMENOrdering Facility: [facility] Address: [address] [place] [address] Performed By: #### 5 7021-8 ####[facility] LABCLIA [id number] [place] [address] Lymphocytes (Bld) [#/Vol] 1.01 10*3/uL Normal 1.00-4.00 [facility] Comment on above: Order Comment: Speci men Type: BLOOD SPECIMENOrdering Facility: [facility] Address: [address] [place] [address] Performed By: #### 5 7021-8 ####[facility] LABCLIA [id number] [place] [address] Lymphocytes/100 WBC (Bld) 17.5 % Normal [facility] Comment on above: Order Comment: Speci men Type: BLOOD SPECIMENOrdering Facility: [facility] Address: [address] [place] [address] Performed By: #### 5 7021-8 ####[facility] LABIA [id number] [place] [address] MCH (RBC) [Entitic mass] 29.4 pg Normal 26.0-34.0 [facility] Comment on above: Order Comment: Speci men Type: BLOOD SPECIMENOrdering Facility: [facility] Address: [address] [place] [address] Performed By: #### 5 7021-8 ####[facility] LABCLIA [id number] [place] [address] MCHC (RBC) [Mass/Vol] 34.7 g/dL Normal 30.5-36.0 [facility] Comment on above: Order Comment: Speci men Type: BLOOD SPECIMENOrdering Facility: [facility] Address: [address] [place] [address] Performed By: #### 5 7021-8 ####[facility] LABCLIA [id number] [place] [address] MCV (RBC) [Entitic vol] 84.9 fL Normal 80.0-100.0 [facility] Comment on above: Order Comment: Speci men Type: BLOOD SPECIMENOrdering Facility: [facility] Address: [address] [place] [address] Performed By: #### 5 7021-8 ####[facility] LABCLIA [id number] [place] [address] Monocytes (Bld) [#/Vol] 0.56 10*3/uL Normal <0.87 [facility] Comment on above: Order Comment: Speci men Type: BLOOD SPECIMENOrdering Facility: [facility] Address: [address] [place] [address] Performed By: #### 5 7021-8 ####[facility] LABCLIA [id number] [place] [address] Monocytes/100 WBC (Bld) 9.7 % Normal [facility] Comment on above: Order Comment: Speci men Type: BLOOD SPECIMENOrdering Facility: [facility] Address: [address] [place] [address] Performed By: #### 5 7021-8 ####[facility] LABCLIA [id number] [place] [address] Neutrophils (Bld) [#/Vol] 3.81 10*3/uL Normal 1.45-7.50 [facility] Comment on above: Order Comment: Speci men Type: BLOOD SPECIMENOrdering Facility: [facility] Address: [address] [place] [address] Performed By: #### 5 7021-8 ####[facility] LABCLIA [id number] [place] [address] Neutrophils/100 WBC (Bld) 65.9 % Normal [facility] Comment on above: Order Comment: Speci men Type: BLOOD SPECIMENOrdering Facility: [facility] Address: [address] [place] [address] Performed By: #### 5 7021-8 ####[facility] LABCLIA [id number] [place] [address] Nucleated RBC (Bld) [#/Vol] 10*3/uL Normal <0.01 [facility] Comment on above: Order Comment: Speci men Type: BLOOD SPECIMENOrdering Facility: [facility] Address: [address] [place] [address] Performed By: #### 5 7021-8 ####[facility] LABCLIA [id number] [place] [address] Nucleated RBC/100 WBC (Bld) [Ratio] 0.0 /100 WBC Normal [facility] Comment on above: Order Comment: Speci men Type: BLOOD SPECIMENOrdering Facility: [facility] Address: [address] [place] [address] Performed By: #### 5 7021-8 ####[facility] LABCLIA [id number] [place] [address] Platelet mean volume (Bld) [Entitic vol] 8.4 fL Low 9.0-12.7 [facility] Comment on above: Order Comment: Speci men Type: BLOOD SPECIMENOrdering Facility: [facility] Address: [address] [place] [address] Performed By: #### 5 7021-8 ####[facility] LABCLIA [id number] [place] [address] Platelets (Bld) [#/Vol] 157 10*3/uL Normal 150-400 [facility] Comment on above: Order Comment: Speci men Type: BLOOD SPECIMENOrdering Facility: [facility] Address: [address] [place] [address] Performed By: #### 5 7021-8 ####[facility] LABCLIA [id number] [place] [address] RBC (Bld) [#/Vol] 5.03 10*6/uL Normal 4.20-6.00 [facility] Comment on above: Order Comment: Speci men Type: BLOOD SPECIMENOrdering Facility: [facility] Address: [address] [place] [address] Performed By: #### 5 7021-8 ####[facility] LABIA [id number] [place] [address] WBC (Bld) [#/Vol] 5.78 10*3/uL Normal 3.70-11.00 [facility] Comment on above: Order Comment: Speci men Type: BLOOD SPECIMENOrdering Facility: [facility] Address: [address] [place] [address] Performed By: #### 5 7021-8 ####[facility] LABCLIA [id number] [place] [address] CNOVSPon 08-02-2024 CNOVSP Normal [facility] Comprehensive metabolic 2000 panelon 08-02-2024 Albumin [Mass/Vol] 4.7 g/dL Normal 3.9-4.9 [facility] Comment on above: Order Comment: Speci men Type: BLOOD SPECIMENOrdering Facility: [facility] Address: [address] [place] [address] Performed By: #### 2 4323-8 ####[facility] LABCLIA [id number] [place] [address] ALP [Catalytic activity/Vol] 79 U/L Normal 38-113 [facility] Comment on above: Order Comment: Speci men Type: BLOOD SPECIMENOrdering Facility: [facility] Address: [address] [place] [address] Performed By: #### 2 4323-8 ####[facility] LABCLIA [id number] [place] [address] ALT [Catalytic activity/Vol] 20 U/L Normal 10-54 [facility] Comment on above: Order Comment: Speci men Type: BLOOD SPECIMENOrdering Facility: [facility] Address: [address] [place] [address] Performed By: #### 2 4323-8 ####[facility] LABCLIA [id number] [place] [address] Anion gap [Moles/Vol] 13 mmol/L Normal 8-15 [facility] Comment on above: Order Comment: Speci men Type: BLOOD SPECIMENOrdering Facility: [facility] Address: [address] [place] [address] Performed By: #### 2 4323-8 ####[facility] LABCLIA [id number] [place] [address] AST [Catalytic activity/Vol] 21 U/L Normal 14-40 [facility] Comment on above: Order Comment: Speci men Type: BLOOD SPECIMENOrdering Facility: [facility] Address: [address] [place] [address] Performed By: #### 2 4323-8 ####[facility] LABCLIA [id number] [place] [address] Bilirubin [Mass/Vol] 0.4 mg/dL Normal 0.2-1.3 [facility] Comment on above: Order Comment: Speci men Type: BLOOD SPECIMENOrdering Facility: [facility] Address: [address] [place] [address] Performed By: #### 2 4323-8 ####[facility] LABCLIA [id number] [place] [address] Calcium [Mass/Vol] 9.6 mg/dL Normal 8.5-10.2 [facility] Comment on above: Order Comment: Speci men Type: BLOOD SPECIMENOrdering Facility: [facility] Address: [address] [place] [address] Performed By: #### 2 4323-8 ####[facility] LABCLIA [id number] [place] [address] Chloride [Moles/Vol] 101 mmol/L Normal 98-107 [facility] Comment on above: Order Comment: Speci men Type: BLOOD SPECIMENOrdering Facility: [facility] Address: [address] [place] [address] Performed By: #### 2 4323-8 ####[facility] LABCLIA [id number] [place] [address] CO2 [Moles/Vol] 24 mmol/L Normal 22-30 [facility] Comment on above: Order Comment: Speci men Type: BLOOD SPECIMENOrdering Facility: [facility] Address: [address] [place] [address] Performed By: #### 2 4323-8 ####[facility] LABCLIA [id number] [place] [address] Creatinine [Mass/Vol] 1.67 mg/dL High 0.73-1.22 [facility] Comment on above: Order Comment: Speci men Type: BLOOD SPECIMENOrdering Facility: [facility] Address: [address] [place] [address] Performed By: #### 2 4323-8 ####[facility] LABCLIA [id number] [place] [address] Creatinine and Glomerular filtration rate.predicted panel (S/P/Bld) 47 mL/min/1.73m??? Low >=60 [facility] Comment on above: Order Comment: Speci men Type: BLOOD SPECIMENOrdering Facility: [facility] Address: [address] [id number] Result Comment: Torri mated Glomerular Filtration Rate [...] actual GFR. Performed By: #### 2 4323-8 ####[facility] LABCLIA [id number] [place] [address] Glucose [Mass/Vol] 93 mg/dL Normal 74-99 [facility] Comment on above: Order Comment: Richard perez Type: BLOOD SPECIMENOrdering Facility: [facility] Address: [address] [place] [address] Result Comment: The [place] Diabetes Association (ADA) provides guidance for cutoff [...] Standards of Medical Care in Diabetes 2016, [place] Diabetes Association. Diabetes Care. 2016.39(Suppl 1). Performed By: #### 2 4323-8 ####[facility] LABCLIA [id number] [place] [address] Potassium [Moles/Vol] 4.3 mmol/L Normal 3.7-5.1 [facility] Comment on above: Order Comment: Richard perez Type: BLOOD SPECIMENOrdering Facility: [facility] Address: [address] [id number] Performed By: #### 2 4323-8 ####[facility] LABCLIA [id number] [place] [address] Protein [Mass/Vol] 7.3 g/dL Normal 6.3-8.0 [facility] Comment on above: Order Comment: Speci men Type: BLOOD SPECIMENOrdering Facility: [facility] Address: [address] [place] [address] Performed By: #### 2 4323-8 ####[facility] LABCLIA [id number] [place] [address] Sodium [Moles/Vol] 138 mmol/L Normal 136-144 [facility] Comment on above: Order Comment: Speci men Type: BLOOD SPECIMENOrdering Facility: [facility] Address: [address] [place] [address] Performed By: #### 2 4323-8 ####[facility] LABCLIA [id number] [place] [address] Urea nitrogen [Mass/Vol] 26 mg/dL High 9-24 [facility] Comment on above: Order Comment: Speci men Type: BLOOD SPECIMENOrdering Facility: [facility] Address: [address] [place] [address] Performed By: #### 2 4323-8 ####[facility] LABCLIA [id number] [place] [address] Cortis Desireel-Karissaon 08-02-20 24 Cortisol [Mass/Vol] 8.3 ug/dL Normal 4.8-19.5 [facility] Comment on above: Order Comment: Speci men Type: BLOOD SPECIMENOrdering Facility: [facility] Address: [address] [place] [address] Result Comment: Prov ided reference range is from 6-10 AM sample collection time.Cortisol Reference Range: 6-10 AM = 4.8-19.5 ug/dL, 4-8 PM = 2.5-11.9 ug/dL Performed By: #### 2 143-6, 3016-3 ####[facility] LABCLIA [id number] [place] [address] [place] HbA1c (Bld)on 08-02-2024 Average glucose Estimated from glycated hemoglobin (Bld) [Mass/Vol] 100 mg/dL Normal [facility] Comment on above: Order Comment: Richard perez Type: BLOOD SPECIMENOrdering Facility: [facility] Address: [address] [place] [address] Result Comment: eAG: (Estimated average glucose) is a calculated value from HgbA1c and is primary care sales representative of the average blood glucose level in the last 2-3 month period. Performed By: #### 5 5454-3 ####[facility] [id number] [place] [address] [place] HbA1c (Bld) [Mass fraction] 5.1 % Normal 4.3-5.6 [facility] Comment on above: Order Comment: Rihcard perez Type: BLOOD SPECIMENOrdering Facility: [facility] Address: [address] [place] [address] Result Comment: [place] Diabetes Association guidelines indicate that patients with HgbA1c in the range 5.7-6.4% are at increased risk for development of diabetes, and intervention by lifestyle modification may be beneficial. HgbA1c greater or equal to 6.5% is considered diagnostic of diabetes. Performed By: #### 5 5454-3 ####[facility] [id number] [place] [address] [place] TSH SerPl-aCncon 08-02-2024 TSH Qn 8.640 m[IU]/L High 0.270-4.200 [facility] Comment on above: Order Comment: Richard perez Type: BLOOD SPECIMENOrdering Facility: [facility] Address: [address] [place] [address] Performed By: #### 2 143-6, 3016-3 ####[facility] [id number] [address] [place] CNOVon 07-05-2024 CNOV Normal [facility] Ambulatory Visit Summaryon 0 06-28-2024 Ambulatory Visit Summary Ambulatory Visit Summary CAITLIN ELMORE :1965 Visit Date:06/28/2024 Ambulatory Visit Instructions Your Diagnosis Elevated PSA BPH with urinary obstruction Family history of prostate cancer in father Throat cancer Your Care Team Attending Physician - Norma Craig MD Primary Care Physician - Julian Burton MD This Is Your Medications List tamsulosin (tamsulosin 0.4 mg Cap) Contact prescribing physician if questions or concerns amlodipine (amLODIPine 10 mg Tab) levothyroxine (levothyroxine 50 mcg (0.05 mg) Tab) lisinopril (lisinopril 40 mg Tab) ondansetron pembrolizumab (Keytruda) pravastatin (pravastatin 20 mg Tab) prochlorperazine (prochlorperazine 10 mg Tab) Procedures Performed MRI-US fusion guided prostate biopsy (06/28/2023), Transrectal biopsy of prostate using ultrasound (US) guidance (09/16/2021), Colonoscopy, Tonsillectomy. Discharge Vitals Heart Rate (Peripheral) 64 Respiratory Rate 16 Blood Pressure 138/96 Height 182 cm Height 72 in Weight 96.0 kg Weight 211.2 lb BMI 28.98 What to do next Scheduled Follow-Up Appointments Monday 3:00 PM EDT With: Norma Craig MD Where: [facility] [address] [place] [address]- You Need to Schedule the Following Appointments Follow Up with Norma Craig MD, URL, [facility] When: Where: Medications What How Much When Instructions Unchanged tamsulosin (tamsulosin 0.4 mg Cap) 1 Capsules By Mouth Every day Unchanged amlodipine (amLODIPine 10 mg Tab) By Mouth Every day Contact prescribing physician if questions or concerns Unchanged levothyroxine (levothyroxine 50 mcg (0.05 mg) Tab) 1 Tablets By Mouth Every day Contact prescribing physician if questions or concerns Unchanged lisinopril (lisinopril 40 mg Tab) 1 Tablets By Mouth Every day Contact prescribing physician if questions or concerns Unchanged ondansetron Contact prescribing physician if questions or concerns Unchanged pembrolizumab (Keytruda) Intravenous Every 3 weeks Contact prescribing physician if questions or concerns Unchanged pravastatin (pravastatin 20 mg Tab) 1 Tablets By Mouth Every day Contact prescribing physician if questions or concerns Unchanged prochlorperazine (prochlorperazine 10 mg Tab) By Mouth 3 times a day Contact prescribing physician if questions or concerns Allergies No Known Allergies No Known Medication Allergies Problems Ongoing - Any problem that you are currently receiving treatment for. Acquired deafness Arthritis Asymptomatic microscopic hematuria BPH with urinary obstruction Elevated PSA Family history of prostate cancer in father Hyperlipidemia Hypertension Lung cancer Nocturia Throat cancer Tubulovillous adenoma of colon Weak urine stream Patient Survey You may receive a survey via text or e-mail asking about your office visit. Please share your experience with us by completing your survey. We appreciate your feedback and thank you for choosing us for your care. Education Materials Prostate Cancer Screening Prostate cancer screening is [...] that you start screening at a younger (more content not included)... Normal [facility] CNNURSEon 06-28-2024 CNNURSE Normal [facility] Urology Office/Clinic Noteon 06-28-2024 Urology Office/Clinic Note Urology Office/Clinic Note Chief Complaint 1 year follow up HPI Staff 1 yr with PSA. Previous Dx: elevated PSA, BPH with obstruction, fam hx of prostate ca in father. S/p MRI fusion TP biopsy 06/28/23. MRI prostate 05/16/23. TRUS/bx by Dr. Zaragoza 09/16/21. *Flomax 0.4 mg qPM. PSA: 04/20/22 - 3.8 & 17% 03/11/23 - 3.0 & 27% 06/26/24 - 3.79 Dysuria: denies pain or burning Incomplete bladder emptying: sometimes Hematuria: denies visible blood Frequency: denies Urgency: denies Nocturia: 3x Stream: weak stream, some hesitancy at night Leaking: denies Post void dripping: denies Wearing pads/ Depends: denies Urge incontinence: denies Stress incontinence: denies Incontinence without Sensory Awareness: denies Abdominal pain: denies Flank pain: denies Sexual complaints: denies History of Present Illness Tests reviewed: reviewed UA, PSA I have reviewed the previous health record information and history for this patient from Dr. Craig. I have reviewed and verified the staff HPI to be accurate for this encounter. Review of Systems PHQ Score Initial Depression Screen Score: 0 SCORE ROS - Provider Constitutional: denies weight loss, [...] HPI. Physical Exam Vitals & Measurements HR: 64(Peripheral) RR: 16 BP: 138/96 HT: 72 in HT: 182 cm WT: 96.0 kg WT: 211.2 lb BMI: 28.98 General Appearance: alert, no distress, well nourished, well developed male. Assessment/Plan 59 year old male with history of throat cancer here follow up of elevated PSA, abnormal PET scan and MRI s/p biopsy. No hx of heart attack or stroke. Not taking anticoagulation. SILVIANO 1 (13). 1. Elevated PSA (R97.20: Elevated prostate specific antigen [PSA]) PSA: 05/2020 - 2.7 & 17% 11/21/20 - 3.7 & 15% 06/21/21 - 3.6 & 13% 04/20/22 - 3.8 & 17% 03/11/23 - 3.0 & 27% 06/26/24 - 3.8 TRUS/bx by Dr. Zaragoza 09/16/[address] León ordered PET scan due to throat cancer, prostate abnormality found so that's why MRI was ordered even though PSA improved [1]. MRI prostate 05/16/23 - lateral aspect left peripheral zone, mid gland measuring 12 x 5 mm. PI-RADS 4. No evidence of lymphadenopathy. 53 ml vol. S/P MRI fusion TP biopsy 06/28/23 - All cores benign. No inflammation noted. Confirm MDx - 24% likelihood of prostate ca on repeat bx. 19% of /=G7. PSA stable overall. Will cont to monitor. Reviewed confirm mdx results with pt. If PSA were to continuously or exponentially rise, consider repeat MRI and bx. -Follow up 1 yr with PSA F&T or sooner if needed. Pt understands and agrees with plan. 2. 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 Taking Flomax 0.4 mg qPM. No SEs. IPSS 20 (16). Offered Finasteride to help shrink prostate and provide sx relief vs daily low dose cialis (erections will also benefit) vs prostate procedure. Pt elects to try cialis. -Increase Flomax to 0.8 mg qd. If experiencing dizziness/lightheadednes s, decrease to 0.4 mg. If he is still having voiding issues with 0.8 mg, try cialis below. -Try Cialis 5 mg qd. SEs, priapism discussed. Rx sent to [facility]. 3. Family history of prostate cancer in father (Z80.42: Family history of malignant neoplasm of prostate) Cont monitoring, see #1. 4. 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 Gets fatigue from ca tx. Going to receive radiation. Follows with Dr. Ivy. Follow-up With When Contact Information Rafa KELLEY, Norma Moran, URL, URO Additional Instructions: 1 yr with PSA F&T Patient Education Prostate Cancer Screening I, Pascale Koch, personally scribed for Dr. Craig on 06/28/2024 15:32:47. . Documentation recorded by the scribe, Pascale Koch, accurately reflects the services(s) I performed and decisions made by me. Authenticated by Dr. Craig on 06/28/2024 16:09:28. Problem List/Past Medical History Ongoing Acquired deafness Arthritis Asymptomatic microscopic hematuria BPH with urinary obstruction Elevated PSA Family history of prostate cancer in father Hyperlipidemia Hypertension Lung cancer Nocturia Throat cancer Tubulovillous adenoma of colon Weak urine stream Historical No qualifying data Procedure/Surgical History MRI-US fusion guided prostate biopsy (06/28/2023), Transrectal biopsy of prostate using ultrasound (US) guidance (09/16/2021), Colonoscopy, Tonsillectomy. Medi (more content not included)... Normal [facility] Comment on above: Result Comment: Elec tronically Signed By: Norma Craig MD\.br\Date and Time Signed: 06/28/24 16:09 EDT\.br\Electronically Co-Signed By: Pascale Koch\.br\Date and Time Co-Signed: 06/28/24 15:33 EDT CBC W Auto Differential pane l (Bld)on 06-20-2024 Basophils (Bld) [#/Vol] 0.05 10*3/uL Normal <0.11 [facility] Comment on above: Order Comment: Speci men Type: BLOOD SPECIMENOrdering Facility: [facility] Address: [address] [place] [address] Performed By: #### 5 7021-8 ####[facility] LABCLIA [id number] [place] [address] Basophils/100 WBC (Bld) 0.8 % Normal [facility] Comment on above: Order Comment: Speci men Type: BLOOD SPECIMENOrdering Facility: [facility] Address: [address] [place] [address] Performed By: #### 5 7021-8 ####[facility] LABCLIA [id number] [place] [address] Differential cell count method Nom (Bld) Auto Normal [facility] Comment on above: Order Comment: Speci men Type: BLOOD SPECIMENOrdering Facility: [facility] Address: [address] [place] [address] Performed By: #### 5 7021-8 ####[facility] LABCLIA [id number] [place] [address] Eosinophils (Bld) [#/Vol] 0.44 10*3/uL Normal <0.46 [facility] Comment on above: Order Comment: Speci men Type: BLOOD SPECIMENOrdering Facility: [facility] Address: [address] [place] [address] Performed By: #### 5 7021-8 ####[facility] LABCLIA [id number] [place] [address] Eosinophils/100 WBC (Bld) 6.8 % Normal [facility] Comment on above: Order Comment: Speci men Type: BLOOD SPECIMENOrdering Facility: [facility] Address: [address] [place] [address] Performed By: #### 5 7021-8 ####[facility] LABCLIA [id number] [place] [address] Erythrocyte distribution width (RBC) [Ratio] 12.1 % Normal 11.5-15.0 [facility] Comment on above: Order Comment: Speci men Type: BLOOD SPECIMENOrdering Facility: [facility] Address: [address] [place] [address] Performed By: #### 5 7021-8 ####[facility] LABCLIA [id number] [place] [address] Hematocrit (Bld) [Volume fraction] 39.4 % Normal 39.0-51.0 [facility] Comment on above: Order Comment: Speci men Type: BLOOD SPECIMENOrdering Facility: [facility] Address: [address] [place] [address] Performed By: #### 5 7021-8 ####[facility] LABCLIA [id number] [place] [address] Hemoglobin (Bld) [Mass/Vol] 13.8 g/dL Normal 13.0-17.0 [facility] Comment on above: Order Comment: Speci men Type: BLOOD SPECIMENOrdering Facility: [facility] Address: [address] [place] [address] Performed By: #### 5 7021-8 ####[facility] LABCLIA [id number] [place] [address] Immature granulocytes (Bld) [#/Vol] 10*3/uL Normal <0.10 [facility] Comment on above: Order Comment: Speci men Type: BLOOD SPECIMENOrdering Facility: [facility] Address: [address] [place] [address] Performed By: #### 5 7021-8 ####[facility] LABCLIA [id number] [place] [address] Immature granulocytes/100 WBC (Bld) 0.2 % Normal [facility] Comment on above: Order Comment: Speci men Type: BLOOD SPECIMENOrdering Facility: [facility] Address: [address] [place] [address] Performed By: #### 5 7021-8 ####[facility] LABCLIA [id number] [place] [address] Lymphocytes (Bld) [#/Vol] 1.44 10*3/uL Normal 1.00-4.00 [facility] Comment on above: Order Comment: Speci men Type: BLOOD SPECIMENOrdering Facility: [facility] Address: [address] [place] [address] Performed By: #### 5 7021-8 ####[facility] LABCLIA [id number] [place] [address] Lymphocytes/100 WBC (Bld) 22.2 % Normal [facility] Comment on above: Order Comment: Speci men Type: BLOOD SPECIMENOrdering Facility: [facility] Address: [address] [place] [address] Performed By: #### 5 7021-8 ####[facility] LABCLIA [id number] [place] [address] MCH (RBC) [Entitic mass] 29.4 pg Normal 26.0-34.0 [facility] Comment on above: Order Comment: Speci men Type: BLOOD SPECIMENOrdering Facility: [facility] Address: [address] [place] [address] Performed By: #### 5 7021-8 ####[facility] LABCLIA [id number] [place] [address] MCHC (RBC) [Mass/Vol] 35.0 g/dL Normal 30.5-36.0 [facility] Comment on above: Order Comment: Speci men Type: BLOOD SPECIMENOrdering Facility: [facility] Address: [address] [place] [address] Performed By: #### 5 7021-8 ####[facility] LABIA [id number] [place] [address] MCV (RBC) [Entitic vol] 83.8 fL Normal 80.0-100.0 [facility] Comment on above: Order Comment: Speci men Type: BLOOD SPECIMENOrdering Facility: [facility] Address: [address] [place] [address] Performed By: #### 5 7021-8 ####[facility] LABCLIA [id number] [place] [address] Monocytes (Bld) [#/Vol] 0.58 10*3/uL Normal <0.87 [facility] Comment on above: Order Comment: Speci men Type: BLOOD SPECIMENOrdering Facility: [facility] Address: [address] [place] [address] Performed By: #### 5 7021-8 ####[facility] LABCLIA [id number] [place] [address] Monocytes/100 WBC (Bld) 8.9 % Normal [facility] Comment on above: Order Comment: Speci men Type: BLOOD SPECIMENOrdering Facility: [facility] Address: [address] [place] [address] Performed By: #### 5 7021-8 ####[facility] LABCLIA [id number] [place] [address] Neutrophils (Bld) [#/Vol] 3.97 10*3/uL Normal 1.45-7.50 [facility] Comment on above: Order Comment: Speci men Type: BLOOD SPECIMENOrdering Facility: [facility] Address: [address] [place] [address] Performed By: #### 5 7021-8 ####[facility] LABCLIA [id number] [place] [address] Neutrophils/100 WBC (Bld) 61.1 % Normal [facility] Comment on above: Order Comment: Speci men Type: BLOOD SPECIMENOrdering Facility: [facility] Address: [address] [place] [address] Performed By: #### 5 7021-8 ####[facility] LABCLIA [id number] [place] [address] Nucleated RBC (Bld) [#/Vol] 10*3/uL Normal <0.01 [facility] Comment on above: Order Comment: Speci men Type: BLOOD SPECIMENOrdering Facility: [facility] Address: [address] [place] [address] Performed By: #### 5 7021-8 ####[facility] LABCLIA [id number] [place] [address] Nucleated RBC/100 WBC (Bld) [Ratio] 0.0 /100 WBC Normal [facility] Comment on above: Order Comment: Speci men Type: BLOOD SPECIMENOrdering Facility: [facility] Address: [address] [place] [address] Performed By: #### 5 7021-8 ####[facility] LABIA [id number] [place] [address] Platelet mean volume (Bld) [Entitic vol] 8.0 fL Low 9.0-12.7 [facility] Comment on above: Order Comment: Speci men Type: BLOOD SPECIMENOrdering Facility: [facility] Address: [address] [place] [address] Performed By: #### 5 7021-8 ####[facility] LABIA [id number] [place] [address] Platelets (Bld) [#/Vol] 191 10*3/uL Normal 150-400 [facility] Comment on above: Order Comment: Speci men Type: BLOOD SPECIMENOrdering Facility: [facility] Address: [address] [place] [address] Performed By: #### 5 7021-8 ####[facility] LABIA [id number] [place] [address] RBC (Bld) [#/Vol] 4.70 10*6/uL Normal 4.20-6.00 [facility] Comment on above: Order Comment: Speci men Type: BLOOD SPECIMENOrdering Facility: [facility] Address: [address] [place] [address] Performed By: #### 5 7021-8 ####[facility] LABCLIA [id number] [place] [address] WBC (Bld) [#/Vol] 6.49 10*3/uL Normal 3.70-11.00 [facility] Comment on above: Order Comment: Speci men Type: BLOOD SPECIMENOrdering Facility: [facility] Address: [address] [place] [address] Performed By: #### 5 7021-8 ####[facility] LABCLIA [id number] [place] [address] CNOVSPon 06-20-2024 CNOVSP Normal [facility] metabolic 2000 panelon 06-20-2024 Albumin [Mass/Vol] 4.6 g/dL Normal 3.9-4.9 [facility] Comment on above: Order Comment: Speci men Type: BLOOD SPECIMENOrdering Facility: [facility] Address: [address] [place] [address] Performed By: #### 2 4323-8 ####[facility] LABCLIA [id number] [place] [address] ALP [Catalytic activity/Vol] 86 U/L Normal 38-113 [facility] Comment on above: Order Comment: Speci men Type: BLOOD SPECIMENOrdering Facility: [facility] Address: [address] [place] [address] Performed By: #### 2 4323-8 ####[facility] LABCLIA [id number] [place] [address] ALT [Catalytic activity/Vol] 11 U/L Normal 10-54 [facility] Comment on above: Order Comment: Speci men Type: BLOOD SPECIMENOrdering Facility: [facility] Address: [address] [place] [address] Performed By: #### 2 4323-8 ####[facility] LABCLIA [id number] [place] [address] Anion gap [Moles/Vol] 12 mmol/L Normal 8-15 [facility] Comment on above: Order Comment: Speci men Type: BLOOD SPECIMENOrdering Facility: [facility] Address: [address] [place] [address] Performed By: #### 2 4323-8 ####[facility] LABCLIA [id number] [place] [address] AST [Catalytic activity/Vol] 14 U/L Normal 14-40 [facility] Comment on above: Order Comment: Speci men Type: BLOOD SPECIMENOrdering Facility: [facility] Address: [address] [place] [address] Performed By: #### 2 4323-8 ####[facility] LABCLIA [id number] [place] [address] Bilirubin [Mass/Vol] 0.3 mg/dL Normal 0.2-1.3 [facility] Comment on above: Order Comment: Speci men Type: BLOOD SPECIMENOrdering Facility: [facility] Address: [address] [place] [address] Performed By: #### 2 4323-8 ####[facility] LABCLIA [id number] [place] [address] Calcium [Mass/Vol] 10.6 mg/dL High 8.5-10.2 [facility] Comment on above: Order Comment: Speci men Type: BLOOD SPECIMENOrdering Facility: [facility] Address: [address] [place] [address] Performed By: #### 2 4323-8 ####[facility] LABCLIA [id number] [place] [address] Chloride [Moles/Vol] 102 mmol/L Normal 98-107 [facility] Comment on above: Order Comment: Speci men Type: BLOOD SPECIMENOrdering Facility: [facility] Address: [address] [place] [address] Performed By: #### 2 4323-8 ####[facility] LABCLIA [id number] [place] [address] CO2 [Moles/Vol] 26 mmol/L Normal 22-30 [facility] Comment on above: Order Comment: Speci men Type: BLOOD SPECIMENOrdering Facility: [facility] Address: [address] [place] [address] Performed By: #### 2 4323-8 ####[facility] LABCLIA [id number] [place] [address] Creatinine [Mass/Vol] 1.39 mg/dL High 0.73-1.22 [facility] Comment on above: Order Comment: Speci men Type: BLOOD SPECIMENOrdering Facility: [facility] Address: [address] [place] [address] Performed By: #### 2 4323-8 ####[facility] LABIA [id number] [place] [address] Creatinine and Glomerular filtration rate.predicted panel (S/P/Bld) 59 mL/min/1.73m??? Low >=60 [facility] Comment on above: Order Comment: Speci men Type: BLOOD SPECIMENOrdering Facility: [facility] Address: [address] [place] [address] Result Comment: Torri mated Glomerular Filtration Rate [...] actual GFR. Performed By: #### 2 4323-8 ####[facility] LABIA [id number] [place] [address] Glucose [Mass/Vol] 96 mg/dL Normal 74-99 [facility] Comment on above: Order Comment: Speci men Type: BLOOD SPECIMENOrdering Facility: [facility] Address: [address], [place] [address] Result Comment: The [place] Diabetes Association (ADA) provides guidance for cutoff [...] Standards of Medical Care in Diabetes 2016, [place] [employer]. Diabetes Care. 2016.39(Suppl 1). Performed By: #### 2 4323-8 ####[facility] LABCLIA [id number] [place] [address] Potassium [Moles/Vol] 4.6 mmol/L Normal 3.7-5.1 [facility] Comment on above: Order Comment: Speci men Type: BLOOD SPECIMENOrdering Facility: [facility] Address: [address] [place] [address] Performed By: #### 2 4323-8 ####[facility] LABCLIA [id number] [place] [address] Protein [Mass/Vol] 7.4 g/dL Normal 6.3-8.0 [facility] Comment on above: Order Comment: Speci men Type: BLOOD SPECIMENOrdering Facility: [facility] Address: [address] [place] [address] Performed By: #### 2 4323-8 ####[facility] LABCLIA [id number] [place] [address] Sodium [Moles/Vol] 140 mmol/L Normal 136-144 [facility] Comment on above: Order Comment: Speci men Type: BLOOD SPECIMENOrdering Facility: [facility] Address: [address] [place] [address] Performed By: #### 2 4323-8 ####[facility] LABCLIA [id number] [place] [address] Urea nitrogen [Mass/Vol] 18 mg/dL Normal 9-24 [facility] Comment on above: Order Comment: Speci men Type: BLOOD SPECIMENOrdering Facility: [facility] Address: [address] [place] [address] Performed By: #### 2 4323-8 ####[facility] LABCLIA [id number] [place] [address] Cortann Ramírezl-mCncon 06-20-20 24 Cortisol [Mass/Vol] 5.7 ug/dL Normal 4.8-19.5 [facility] Comment on above: Order Comment: Speci men Type: BLOOD SPECIMENOrdering Facility: [facility] Address: [address] [place] [address] Result Comment: Prov ided reference range is from 6-10 AM sample collection time.Cortisol Reference Range: 6-10 AM = 4.8-19.5 ug/dL, 4-8 PM = 2.5-11.9 ug/dL Performed By: #### 2 143-6, 3016-3 ####[facility] LABCLIA [id number] [place] [address] [place] HbA1c (Bld)on 06-20-2024 Average glucose Estimated from glycated hemoglobin (Bld) [Mass/Vol] 114 mg/dL Normal [facility] Comment on above: Order Comment: Speci men Type: BLOOD SPECIMENOrdering Facility: [facility] Address: [address] [place] [address] Result Comment: eAG: (Estimated average glucose) is a calculated value from HgbA1c and is primary care sales representative of the average blood glucose level in the last 2-3 month period. Performed By: #### 5 5454-3 ####[facility] LABCLIA [id number] [place] [address] [place] HbA1c (Bld) [Mass fraction] 5.6 % Normal 4.3-5.6 [facility] Comment on above: Order Comment: Speci men Type: BLOOD SPECIMENOrdering Facility: [facility] Address: [address] [place] [address] Result Comment: [place] Diabetes Association guidelines indicate that patients with HgbA1c in the range 5.7-6.4% are at increased risk for development of diabetes, and intervention by lifestyle modification may be beneficial. HgbA1c greater or equal to 6.5% is considered diagnostic of diabetes. Performed By: #### 5 5454-3 ####[facility] LABCLIA [id number] [place] [address] [place] TSH SerPl-aCncon 06-20-2024 TSH Qn 5.520 m[IU]/L High 0.270-4.200 [facility] Comment on above: Order Comment: Richard perez Type: BLOOD SPECIMENOrdering Facility: [facility] Address: [address] [place] [address] Performed By: #### 2 143-6, 3016-3 ####[facility] LABCLIA [id number] [place] [address] [place] CNPNon 06-17-2024 CNPN Normal [facility] CNOVon 06-11-2024 CNOV Normal [facility] ANES POSTPROC EVALon 024 ANES POSTPROC EVAL HNO ID: [id number] Author: SHAUN SCHWAB MD Service: ? Author Type: Physician Type: Anesthesia Postprocedure Evaluation Filed: 05/21/2024 15:20 Note Text: POST ANESTHESIA EVALUATION NOTE : 1965 Procedure Summary Date: 05/21/24 Room / Location: GI02 / [facility] Anesthesia Start: 1041 Anesthesia Stop: 1141 Procedure: BRONCHOSCOPY,RIGID/FLEXI BLE W/ FLUORO,W/ENDOBRONCHIAL ULTRASOUND (EBUS) GUIDED TRANSTRACHEAL/ TRANSBRONCHIAL [...] HR SpO2 50 05/21/24 1204 Resp 18 05/21/24 1209 SpO2 100 % 05/21/24 1209 Vitals [...] May 21, 2024 TIME: 3:19 PM CSN: [id number] [facility] ANES PRE-OPon 05-21-2024 ANES PRE-OP HNO ID: [id number] Author: SHAUN SCHWAB MD Service: ? Author Type: Physician Type: Anesthesia Preprocedure Evaluation Filed: 05/21/2024 09:55 Note Text: ANESTHESIOLOGY DAY OF SURGERY NOTE : 1965 Procedure Information Date/Time: 05/21/24 1030 Procedure: BRONCHOSCOPY,RIGID/FLEXI BLE W/ FLUORO,W/ENDOBRONCHIAL ULTRASOUND (EBUS) GUIDED TRANSTRACHEAL/ TRANSBRONCHIAL [...] and consent discussed: yes. Patient / Responsible Republican agrees to proceed: yes Patient / Surrogate [...] May 21, 2024 TIME: 9:53 AM CSN: [id number] [facility] CYTOLOGY NON-GYNon 4 ADEQUACY INTERPRETATION [facility] Comment on above: Order Comment: Speci men Type: SPECIMEN OBTAINED BY [facility] Ordering Facility: [facility] Address: [address] [place] [address] Result Comment: A: # 1,2,3,4 Necrosis B: #1,2,3 Non-diagnostic C: #1 Limited lymphoid sample #[address] Dean French / Adin Guevara Each letter in the above intra-procedural assessment refers to a unique site. The specific site is indicated in the final diagnosis portion of the report. Each number in this assessment references a discrete evaluation episode. Intra-[place] [address] Performed By: #### C YTONOLesa #### [facility] CLIA [id number] [address] [place] [address] [place] [facility] CASE REPORT Normal [facility] Comment on above: Order Comment: Speci men Type: SPECIMEN OBTAINED BY [facility] Ordering Facility: [facility] Address: [address] [place] [address] Result Comment: [facility] Cytology Report Case: [id number] Authorizing Provider: Ras Starr MD Collected: 05/21/2024 10:22 AM Ordering Location: [facility] Received: 05/21/2024 11:32 AM Endoscopy - ENDO Pathologist: Jason French MD Specimens: A) - Lymph Node, Transbronchial, 10R B) - Lymph Node, Transbronchial, 4L C) - Lymph Node, Transbronchial, Station 7 Performed By: #### C YTONON #### [facility] CLIA [id number] [address] [place] [address] CLINICAL HISTORY Normal [facility] Comment on above: Order Comment: Speci men Type: SPECIMEN OBTAINED BY [employer] Ordering Facility: [facility] Address: [address] [place] [address] Result Comment: Pre- op diagnosis: Adenopathy [R59.9] 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 Performed By: #### C YTONON #### [facility] CLIA [id number] [address] [place] [address] DIAGNOSIS COMMENT [facility] Comment on above: Order Comment: Speci men Type: SPECIMEN OBTAINED BY ASPIRATION Ordering Facility: [facility] Address: [address] [place] [address] Result Comment: A. H istochemical stains with appropriate controls for AFB and GMS performed on cell block A are negative for mycobacterial and fungal organisms, respectively. B. The limited benign lymphoid sample is present on the ThinPrep slide and in the cell block only, which explains the discrepancy between the GIULIA and final diagnoses for part B. Performed By: #### C YTONON #### [facility] CLIA [id number] [address] [place] [address] FINAL DIAGNOSIS [facility] Comment on above: Order Comment: Speci men Type: SPECIMEN OBTAINED BY ASPIRATION Ordering Facility: [facility] Address: [address] [place] [address] Result Comment: A - Lymph Node, Transbronchial, [...] Fixed Performed By: #### C YTONON #### [facility] CLIA [id number] [address] [place] [address] OF [facility] FINAL PERFORMING LAB Normal [facility] Comment on above: Order Comment: Speci men Type: SPECIMEN OBTAINED BY ASPIRATION Ordering Facility: [facility] Address: [address] [place] [address] Result Comment: Tech nical component, starting sheet tank operator screening performed at [facility], [address] [place] [address] CLIA# [id number] Diagnostic interpretation performed at [facility], [address] [place] [address] CLIA# [id number] Medicine Tech: Jason French M.D. Performed By: #### C YTONON #### [facility] CLIA [id number] [address] [place] [address] GROSS DESCRIPTION [facility] Comment on above: Order Comment: Speci men Type: SPECIMEN OBTAINED BY ASPIRATION Ordering Facility: [facility] Address: [address] [place] [address] Result Comment: A. L ymph Node, Transbronchial [...] fixed). Performed By: #### C YTONON #### [facility] CLIA [id number] [address] [place] [address] [place] ORDER COMMENT Normal [facility] Comment on above: Order Comment: Speci men Type: SPECIMEN OBTAINED BY ASPIRATION Ordering Facility: [facility] Address: [address] [place] [address] Result Comment: Pre- op diagnosis: Adenopathy [R59.9] Performed By: #### C YTONOLesa #### [facility] CLIA [id number] [address] [place] [address] NURSING PROGon 05-21-2024 NURSING PROG HNO ID: [id number] Author: UYE WILSON RN Service: ? Author Type: Registered [...] (RECOMMENDATION): None Electronically Signed By: YUE WILSON [facility] NURSING PROG HNO ID: [id number] Author: SUJIT CLIFFORD RN Service: Nursing Author [...] (RECOMMENDATION): None Electronically Signed By: Sujit Clifford [facility] SURGICAL PATHOLOGYon 024 ADDENDUM 1: Normal [facility] Comment on above: Order Comment: Speci men Type: TISSUE SPECIMENOrdering Facility: [facility] Address: [address] [place] [address] Result Comment: GMS and AFB/Melissa stains were performed on the biopsy; no fungal or mycobacterial organisms were identified. Addendum electronically signed by Ricki Canales MD on 05/27/2024 at 2:05 PM Performed By: #### S ####[facility] [id number] [address] OF [place] CASE REPORT Normal [facility] Comment on above: Order Comment: Speci men Type: TISSUE SPECIMENOrdering Facility: [facility] Address: [address] [place] [address] Result Comment: [facility] Pathology Report Case: [id number] Authorizing Provider: Ras Starr MD Collected: 05/21/2024 11:20 AM Ordering Location: [facility] Received: 05/21/2024 11:46 AM Endoscopy - ENDO Pathologist: Ricki Canales MD Specimen: Lymph Node, Biopsy, 10R Performed By: #### S ####[facility] LABIA [id number] [address] [place] CLINICAL HISTORY Normal [facility] Comment on above: Order Comment: Speci men Type: TISSUE SPECIMENOrdering Facility: [facility] Address: [address] [place] [address] Result Comment: Pre- op diagnosis: Adenopathy [R59.9] Nodular opacities in right lung measuring up to 1.6 cm worrisome for metastases, increased in size since 12/08/23 2. Mild right hilar lymphadenopathy, either stable or slightly smaller. Performed By: #### S ####[facility] LABIA [id number] [address] OF [place] DIAGNOSIS COMMENT [facility] Comment on above: Order Comment: Speci men Type: TISSUE SPECIMENOrdering Facility: [facility] Address: [address] [place] [address] Result Comment: A mi nute cluster of [...] been determined by the performing laboratory within [facility]???s Bayron Bajwa [facility] Pathology and Laboratory Medicine Department ([facility], [facility], [facility], [facility], [facility], [facility], or [facility][1]) in a manner consistent with CLIA requirements. One or more of these tests have not been cleared or approved by the FDA. [facility] is regulated under CLIA as qualified to perform high-complexity testing. These tests are used for clinical purposes. They should not be regarded as investigational or for research. Positive and negative controls stain appropriately. Performed By: #### S ####[facility] [id number] [address] FINAL DIAGNOSIS Normal [facility] Comment on above: Order Comment: Speci men Type: TISSUE SPECIMENOrdering Facility: [facility] Address: [address] [place] [address] Result Comment: Lymp h node, 10R, biopsy: -Necrotic material and minute cluster of bland epithelial cells (see comment). Performed By: #### S ####[facility] [id number] [address] FINAL PERFORMING LAB [facility] Comment on above: Order Comment: Speci men Type: TISSUE SPECIMENOrdering Facility: [facility] Address: [address] [place] [address] Result Comment: Diag nostic interpretation performed at [facility], [address] [place] [address] CLIA# [id number] Medicine Tech: Yasir Woods M.D. Performed By: #### S ####[facility] [id number] [address] [place] GROSS DESCRIPTION [facility] Comment on above: Order Comment: Speci men Type: TISSUE SPECIMENOrdering Facility: [facility] Address: [address] [place] [address] Result Comment: A. L ymph Node, Biopsy Received in formalin, labeled 10R TB BX, are multiple melara-red, soft and friable cylindrical tissue segments aggregating to 2.8 x 0.2 x <0.1 cm. Totally submitted in one cassette. CL May 21, 2024 3:16 PM. Gross examination performed at [facility], [address] [place] [address] Performed By: #### S ####[facility] LABIA [id number] [address] [place] Abdomen and Pelvis W cont rast Marcie 05-03-2024 IMPRESSION: 1. No evidence of intra-abdominal/pelvic metastases. No interval change since 12/08/23. 2. Nonspecific subcentimeter hepatic foci, stable. Transcribe Date/Time: May 03 2024 6:14P Dictated by: DAVID LEY MD This examination was interpreted and the report reviewed and electronically signed by: DAVID LEY MD on May 03 2024 6:24PM EST Thank you for allowing us to participate in the care of your patient. Should there be any questions regarding this interpretation, please call [phone]. If you are unable to reach us at the number above, please feel free to contact [facility] eRadiology at [phone]. DIVISION OF RADIOLOGY * * *Final Report* * * DATE OF EXAM: May 03 2024 8:40AM [facility] 0530 - CT ABD/PEL W IVCON / PROCEDURE REASON: multiple diagnoses * * * * Physician Interpretation * * * * RESULT: EXAMINATION: CT ABDOMEN AND PELVIS WITH IV CONTRAST CLINICAL HISTORY: Oropharyngeal cancer TECHNIQUE: CT of the abdomen and pelvis was performed using standard technique, scanning from just above the dome of the diaphragm to the symphysis pubis. MQ: CTAP_3 Contrast: IV: 150 ml of Omnipaque 300 Oral: 500 ml of Omni 240 10-25ml diluted with water CT Radiation dose: Integrated Dose-length product (DLP) for this visit = 1021 mGy*cm. CT Dose Reduction Employed: Automated exposure control (AEC) COMPARISON: 12/08/23. RESULT: Liver: Nonspecific 8 mm enhancing focus in the right hepatic lobe (3:38), stable. Punctate 4 mm hepatic hypodensity (3:39), stable. No new hepatic abnormalities. Biliary: No bile duct dilation. Gallbladder is unremarkable. Spleen: No mass. No splenomegaly. Pancreas: No mass or duct dilation. Adrenals: No mass. Kidneys: 2 cm lipid-containing subcapsular focus in the left kidney may represent interdigitation of perinephric fat or angiomyolipoma, stable. Subcentimeter bilateral renal cysts. No suspicious enhancing renal mass. GI tract: No dilation or wall thickening. Lymph nodes: No abdominal or pelvic lymphadenopathy. Mesentery/Peritoneum: No ascites or mass. Retroperitoneum: No mass. Vasculature: - Abdominal aorta and iliac arteries: Atherosclerotic calcifications without aneurysm. - Celiac and SMA: Patent without stenosis. - Portal venous system (SMV, splenic vein, portal vein and branches): Patent. - Hepatic veins: Incompletely opacified, likely due to early phase of enhancement. Pelvis: No mass, ascites or fluid collection. Diffuse thickening of the urinary bladder wall. Bones/Soft Tissues: No suspicious lytic or blastic osseous lesions. Lower thorax: A chest CT performed will be reported separately. Localizer images: No additional findings. DIVISION OF RADIOLOGY Provider, [facility] - 05/03/2024 * * *Final Report* * * DATE OF EXAM: May 03 2024 8:40AM [facility] 0530 - CT ABD/PEL W IVCON / PROCEDURE REASON: multiple diagnoses * * * * Physician Interpretation * * * * RESULT: EXAMINATION: CT ABDOMEN AND PELVIS WITH IV CONTRAST CLINICAL HISTORY: Oropharyngeal cancer TECHNIQUE: CT of the abdomen and pelvis was performed using standard technique, scanning from just above the dome of the diaphragm to the symphysis pubis. MQ: CTAP_3 Contrast: IV: 150 ml of Omnipaque 300 Oral: 500 ml of Omni 240 10-25ml diluted with water CT Radiation dose: Integrated Dose-length product (DLP) for this visit = 1021 mGy*cm. CT Dose Reduction Employed: Automated exposure control (AEC) COMPARISON: 12/08/23. RESULT: Liver: Nonspecific 8 mm enhancing focus in the right hepatic lobe (3:38), stable. Punctate 4 mm hepatic hypodensity (3:39), stable. No new hepatic abnormalities. Biliary: No bile duct dilation. Gallbladder is unremarkable. Spleen: No mass. No splenomegaly. Pancreas: No mass or duct dilation. Adrenals: No mass. Kidneys: 2 cm lipid-containing subcapsular focus in the left kidney may represent interdigitation of perinephric fat or angiomyolipoma, stable. Subcentimeter bilateral renal cysts. No suspicious enhancing renal mass. GI tract: No dilation or wall thickening. Lymph nodes: No abdominal or pelvic lymphadenopathy. Mesentery/Peritoneum: No ascites or mass. Retroperitoneum: No mass. Vasculature: - Abdominal aorta and iliac arteries: Atherosclerotic calcifications without aneurysm. - Celiac and SMA: Patent without stenosis. - Portal venous system (SMV, splenic vein, portal vein and branches): Patent. - Hepatic veins: Incompletely opacified, likely due to early phase of enhancement. Pelvis: No mass, ascites or fluid collection. Diffuse thickening of the urinary bladder wall. Bones/Soft Tissues: No suspicious lytic or blastic osseous lesions. Lower thorax: A chest CT performed will be reported separately. Localizer images: No additional findings. IMPRESSION IMPRESSION: 1. No evidence of intra-abdominal/pelvic metastases. No interval change since 12/08/23. 2. Nonspecific subcentimeter hepatic foci, stable. Transcribe Date/Time: May 03 2024 6:14P Dictated by: DAVID LEY MD This examination was interpreted and the report reviewed and electronically signed by: DAVID LEY MD on May 03 2024 6:24PM EST Thank you for allowing us to participate in the care of your patient. Should there be any questions regarding this interpretation, please call [phone]. If you are unable to reach us at the number above, please feel free to contact [facility] eRadiology at [phone]. [facility] CT Abdomen and Pelvis W cont rast IVOrdered By: [facility] Provider on 05-03-2024 [facility] CT Chest W contrast Marcie IMPRESSION: 1. Nodular opacities in right lung measuring up to 1.6 cm worrisome for metastases, increased in size since 12/08/23 2. Mild right hilar lymphadenopathy, either stable or slightly smaller.. Transcribe Date/Time: May 03 2024 5:55P Dictated by: DAVID LEY MD This examination was interpreted and the report reviewed and electronically signed by: DAVID LEY MD on May 03 2024 6:23PM EST Thank you for allowing us to participate in the care of your patient. Should there be any questions regarding this interpretation, please call [phone]. If you are unable to reach us at the number above, please feel free to contact [facility] eRadiology at [phone]. DIVISION OF RADIOLOGY * * *Final Report* * * DATE OF EXAM: May 03 2024 8:40AM [facility] 0539 - CT CHEST W IVCON / PROCEDURE REASON: multiple diagnoses * * * * Physician Interpretation * * * * RESULT: EXAMINATION: CHEST CT WITH CONTRAST CLINICAL HISTORY: Oropharyngeal cancer Technique: Spiral CT acquisition of the chest from the thoracic inlet to the upper abdomen following IV contrast. MQ: CTCW_6 Contrast: 150 mL Omnipaque [address] Radiation dose: Integrated Dose-length product (DLP) for this visit = 1021 mGy*cm CT Dose Reduction Employed: Automated exposure control (AEC) Comparison: 12/08/23 RESULT: Limitations: None. Lines, tubes, and devices: None. Lung parenchyma and airways: Multiple airspace opacities. For example: * 1.6 cm right upper lobe nodular opacity (4:64), previously a cluster of nodular opacities measuring less than 5 mm, increased in size * 1.1 cm right upper lobe (4:87), previously 3 mm, increased in size Calcified granuloma is noted in the right upper lobe. No focal consolidation. The central airways are patent. Pleural space: No pleural effusion. No pleural thickening. Lower neck, lymph nodes, and mediastinum: The imaged thyroid gland is normal. Mild right hilar lymphadenopathy measuring 1.4 cm short axis (3:87), previously 1.6 cm, either stable or slightly smaller.. Heart, pericardium, and thoracic vessels: The thoracic aorta and main pulmonary artery are normal in caliber. The cardiac chambers are normal in size. Atherosclerotic coronary artery calcifications are noted. No pericardial effusion or thickening. Bones and soft tissues: No new osseous abnormalities. Upper abdomen: Please refer to the abdomen CT scan report for the abdomen findings. Localizer images: No additional findings. DIVISION OF RADIOLOGY Provider, Vincent Flores - 05/03/2024 * * *Final Report* * * DATE OF EXAM: May 03 2024 8:40AM [facility] 0539 - CT CHEST W IVCON / PROCEDURE REASON: multiple diagnoses * * * * Physician Interpretation * * * * RESULT: EXAMINATION: CHEST CT WITH CONTRAST CLINICAL HISTORY: Oropharyngeal cancer Technique: Spiral CT acquisition of the chest from the thoracic inlet to the upper abdomen following IV contrast. MQ: CTCW_6 Contrast: 150 mL Omnipaque [address] Radiation dose: Integrated Dose-length product (DLP) for this visit = 1021 mGy*cm CT Dose Reduction Employed: Automated exposure control (AEC) Comparison: 12/08/23 RESULT: Limitations: None. Lines, tubes, and devices: None. Lung parenchyma and airways: Multiple airspace opacities. For example: * 1.6 cm right upper lobe nodular opacity (4:64), previously a cluster of nodular opacities measuring less than 5 mm, increased in size * 1.1 cm right upper lobe (4:87), previously 3 mm, increased in size Calcified granuloma is noted in the right upper lobe. No focal consolidation. The central airways are patent. Pleural space: No pleural effusion. No pleural thickening. Lower neck, lymph nodes, and mediastinum: The imaged thyroid gland is normal. Mild right hilar lymphadenopathy measuring 1.4 cm short axis (3:87), previously 1.6 cm, either stable or slightly smaller.. Heart, pericardium, and thoracic vessels: The thoracic aorta and main pulmonary artery are normal in caliber. The cardiac chambers are normal in size. Atherosclerotic coronary artery calcifications are noted. No pericardial effusion or thickening. Bones and soft tissues: No new osseous abnormalities. Upper abdomen: Please refer to the abdomen CT scan report for the abdomen findings. Localizer images: No additional findings. IMPRESSION IMPRESSION: 1. Nodular opacities in right lung measuring up to 1.6 cm worrisome for metastases, increased in size since 12/08/23 2. Mild right hilar lymphadenopathy, either stable or slightly smaller.. Transcribe Date/Time: May 03 2024 5:55P Dictated by: DAVID LEY MD This examination was interpreted and the report reviewed and electronically signed by: DAVID LEY MD on May 03 2024 6:23PM EST Thank you for allowing us to participate in the care of your patient. Should there be any questions regarding this interpretation, please call [phone]. If you are unable to reach us at the number above, please feel free to contact [facility] eRadiology at [phone]. [facility] No Panel Informationon 05-03 Radiology Study observation (narrative) [facility] MR head/brain wo/w conon MR head/brain wo/w con [facility] [place] [address] MRI Report Signed Patient: Caitlin Elmore MR#: [id number] : 1965 Acct:[id number] Age/Sex: 58 / M ADM Date: 04/12/24 Loc: MR Room: Type: [facility] Attending Dr: Tremaine Gomez PA-C Copies to: TREMAINE GOMEZ PA-C Ordering Provider: TREMAINE GOMEZ PA-C Date of Service: 04/12/24 MR/MR [...] Fior Gómez M.D.04/12/2024 10:29 AM Dictation Location: [place] [address] Transcribed By: OLIMPIA 04/12/24 1029 Dictated By: Fior Gómez MD 04/12/24 1019 Signed By: 04/12/24 1029 Normal [facility] Physician [facility] Corticotropin (P) [Mass/Vol] on 03-27-2024 Interpretation and review of laboratory results Normal [facility] Laboratory - Chemistry and C hemistry - challengeon 03-27-2024 Corticotropin (P) [Mass/Vol] 10.6 pg/mL 7.2 - 63.3 pg/mL [facility] Comment on above: ACTH Reference Range : 7-10 am: 7.2 - 63.3 pg/mL CBC W Auto Differential pane l (Bld)on 02-13-2024 Basophils (Bld) [#/Vol] 0.04 10*3/uL [facility] Basophils/100 WBC (Bld) 0.8 % [facility] Differential cell count method Nom (Bld) Auto [facility] Eosinophils (Bld) [#/Vol] 0.56 10*3/uL High [facility] Eosinophils/100 WBC (Bld) 10.6 % [facility] Erythrocyte distribution width (RBC) [Ratio] 12.9 % 11.5 - 15.0 % [facility] Hematocrit (Bld) [Volume fraction] 41.1 % 39.0 - 51.0 % [facility] Hemoglobin (Bld) [Mass/Vol] 14.1 g/dL 13.0 - 17.0 g/dL [facility] Immature granulocytes (Bld) [#/Vol] BANNERF [facility] Immature granulocytes/100 WBC (Bld) 0.4 % [facility] Interpretation and review of laboratory results Abnormal [facility] Lymphocytes (Bld) [#/Vol] 1.02 10*3/uL [facility] Lymphocytes/100 WBC (Bld) 19.3 % [facility] MCH (RBC) [Entitic mass] 29.6 pg 26.0 - 34.0 pg [facility] MCHC (RBC) [Mass/Vol] 34.3 g/dL 30.5 - 36.0 g/dL [facility] MCV (RBC) [Entitic vol] 86.3 fL 80.0 - 100.0 fL [facility] Monocytes (Bld) [#/Vol] 0.52 10*3/uL NINF [facility] Monocytes/100 WBC (Bld) 9.8 % [facility] Neutrophils (Bld) [#/Vol] 3.12 10*3/uL [facility] Neutrophils/100 WBC (Bld) 59.1 % [facility] Nucleated RBC (Bld) [#/Vol] NINF [facility] Nucleated RBC/100 WBC (Bld) [Ratio] 0.0 % /100 WBC [facility] Platelet mean volume (Bld) [Entitic vol] 8.8 fL Low 9.0 - 12.7 fL [facility] Platelets (Bld) [#/Vol] 165 10*3/uL [facility] RBC (Bld) [#/Vol] 4.76 10*6/uL 4.20 - 6.00 m/uL [facility] WBC (Bld) [#/Vol] 5.28 10*3/uL [facility] Comprehensive metabolic 2000 panelOrdered By: Rosemarie Douglas on 02-13-2024 Albumin [Mass/Vol] 4.7 g/dL 3.9 - 4.9 g/dL [facility] ALP [Catalytic activity/Vol] 82 U/L 38 - 113 U/L [facility] ALT [Catalytic activity/Vol] 14 U/L 10 - 54 U/L [facility] Anion gap [Moles/Vol] 10 mmol/L 9 - 18 mmol/L [facility] AST [Catalytic activity/Vol] 14 U/L 14 - 40 U/L [facility] Bilirubin [Mass/Vol] 0.4 mg/dL 0.2 - 1.3 mg/dL [facility] Calcium [Mass/Vol] 9.9 mg/dL 8.5 - 10.2 mg/dL [facility] Chloride [Moles/Vol] 103 mmol/L 97 - 105 mmol/L [facility] CO2 [Moles/Vol] 25 mmol/L 22 - 30 mmol/L [facility] Creatinine [Mass/Vol] 1.26 mg/dL High 0.73 - 1.22 mg/dL [facility] GFR/1.73 sq M.predicted among non-blacks MDRD (S/P/Bld) [Vol rate/Area] 67 mL/min/{1.73_m2} - PINF [facility] Comment on above: Estimated Glomerular Filtration Rate [...] 105 mg/dL High 74 - 99 mg/dL [facility] Comment on above: The [place] [employer] (ADA) provides guidance for [...] Standards of Medical Care in Diabetes 2016, [place] [employer]. [employer]. 2016.39(Suppl 1). Interpretation and review of laboratory results Abnormal [facility] [place] Potassium [Moles/Vol] 4.3 mmol/L 3.7 - 5.1 mmol/L [facility] [place] Protein [Mass/Vol] 7.1 g/dL 6.3 - 8.0 g/dL [facility] Sodium [Moles/Vol] 138 mmol/L 136 - 144 mmol/L [facility] [place] Urea nitrogen [Mass/Vol] 19 mg/dL 9 - 24 mg/dL [facility] TSH BLDon 02-13-2024 TSH Qn 4.720 m[IU]/L High [facility] [place] TSH Qnon 02-13-2024 Interpretation and review of laboratory results Abnormal [facility] CT Abdomen and Pelvis W cont rast Marcie 12-08-2023 IMPRESSION: 1. No evidence of metastatic disease in the abdomen or pelvis. 2. Enlargement of the prostate gland. Transcribe Date/Time: Dec 08 2023 10:17A Dictated by: SIRI RUELAS MD This examination was interpreted and the report reviewed and electronically signed by: SIRI RUELAS MD on Dec 08 2023 10:35AM EST Thank you for allowing us to participate in the care of your patient. Should there be any questions regarding this interpretation, please call [phone]. If you are unable to reach us at the number above, please feel free to contact [facility] at [phone]. DIVISION OF RADIOLOGY * * *Final Report* * * DATE OF EXAM: Dec 08 2023 9:16AM [facility] 0530 - CT ABD/PEL W IVCON / PROCEDURE REASON: Oropharnyx cancer (HCC) * * * * Physician Interpretation * * * * RESULT: EXAMINATION: CT ABDOMEN AND PELVIS WITH IV CONTRAST CLINICAL HISTORY: History of head and neck cancer. TECHNIQUE: CT of the abdomen and pelvis was performed using standard technique, scanning from just above the dome of the diaphragm to the symphysis pubis. MQ: CTAP_3 Contrast: IV: 150 ml of Omnipaque 300 Oral: 500 ml of Omni 240 10-25ml diluted with water CT Radiation dose: Integrated Dose-length product (DLP) for this visit = 983 mGy*cm. CT Dose Reduction Employed: Automated exposure control (AEC) COMPARISON: PET CT from 09/22/2023 RESULT: Liver: Subcentimeter hypodense lesion in segment 5 of the liver on slice 39 of series 3 which is too small to characterize but may represent a small cyst or hemangioma. Biliary: No bile duct dilation. Gallbladder is unremarkable. Spleen: No mass. No splenomegaly. Pancreas: No mass or duct dilation. Adrenals: No mass. Kidneys: Small subcentimeter hypodense renal lesions which are too small to adequately characterize but likely represent cysts. Along the lateral mid pole of the left kidney, there is a 2.3 x 1.4 similar area of subcapsular fat which could be due to either a benign renal angiomyolipoma or cortical scarring with interposition of adjacent perinephric fat. GI tract: Small hiatal hernia. Very short segment intussusception involving jejunum in left upper quadrant of the abdomen. Short segment intussusceptions are usually transient and not clinical significance. No bowel obstruction. Lymph nodes: No abdominal or pelvic lymphadenopathy. Mesentery/Peritoneum: No ascites or mass. Pelvis: Enlargement of the prostate gland. Bones/Soft Tissues: No significant finding. Lower thorax: A chest CT performed will be reported separately. Gre Instructor (topogram) images: No additional findings. DIVISION OF RADIOLOGY Provider, [facility] - 12/08/2023 * * *Final Report* * * DATE OF EXAM: Dec 08 2023 9:16AM [facility] 0530 - CT ABD/PEL W IVCON / PROCEDURE REASON: Oropharnyx cancer (HCC) * * * * Physician Interpretation * * * * RESULT: EXAMINATION: CT ABDOMEN AND PELVIS WITH IV CONTRAST CLINICAL HISTORY: History of head and neck cancer. TECHNIQUE: CT of the abdomen and pelvis was performed using standard technique, scanning from just above the dome of the diaphragm to the symphysis pubis. MQ: CTAP_3 Contrast: IV: 150 ml of Omnipaque 300 Oral: 500 ml of Omni 240 10-25ml diluted with water CT Radiation dose: Integrated Dose-length product (DLP) for this visit = 983 mGy*cm. CT Dose Reduction Employed: Automated exposure control (AEC) COMPARISON: PET CT from 09/22/2023 RESULT: Liver: Subcentimeter hypodense lesion in segment 5 of the liver on slice 39 of series 3 which is too small to characterize but may represent a small cyst or hemangioma. Biliary: No bile duct dilation. Gallbladder is unremarkable. Spleen: No mass. No splenomegaly. Pancreas: No mass or duct dilation. Adrenals: No mass. Kidneys: Small subcentimeter hypodense renal lesions which are too small to adequately characterize but likely represent cysts. Along the lateral mid pole of the left kidney, there is a 2.3 x 1.4 similar area of subcapsular fat which could be due to either a benign renal angiomyolipoma or cortical scarring with interposition of adjacent perinephric fat. GI tract: Small hiatal hernia. Very short segment intussusception involving jejunum in left upper quadrant of the abdomen. Short segment intussusceptions are usually transient and not clinical significance. No bowel obstruction. Lymph nodes: No abdominal or pelvic lymphadenopathy. Mesentery/Peritoneum: No ascites or mass. Pelvis: Enlargement of the prostate gland. Bones/Soft Tissues: No significant finding. Lower thorax: A chest CT performed will be reported separately. Gre Instructor (topogram) images: No additional findings. IMPRESSION IMPRESSION: 1. No evidence of metastatic disease in the abdomen or pelvis. 2. Enlargement of the prostate gland. Transcribe Date/Time: Dec 08 2023 10:17A Dictated by: SIRI RUELAS MD This examination was interpreted and the report reviewed and electronically signed by: SIRI RUELAS MD on Dec 08 2023 10:35AM EST Thank you for allowing us to participate in the care of your patient. Should there be any questions regarding this interpretation, please call [phone]. If you are unable to reach us at the number above, please feel free to contact [facility] [place] eRadiology at [phone]. [facility] CT Chest W contrast Marcie IMPRESSION: 1. Improvement in the previously seen pulmonary [...] is suspicious for progression of metastatic adenopathy. Transcribe Date/Time: Dec 08 2023 10:42A Dictated by: SIRI RUELAS MD This examination was interpreted and the report reviewed and electronically signed by: SIRI RUELAS MD on Dec 08 2023 11:01AM EST Thank you for allowing us to participate in the care of your patient. Should there be any questions regarding this interpretation, please call [phone]. If you are unable to reach us at the number above, please feel free to contact [facility] [place] eRadiology at [phone]. DIVISION OF RADIOLOGY * * *Final Report* * * DATE OF EXAM: Dec 08 2023 9:16AM [facility] 0539 - CT CHEST W IVCON / PROCEDURE REASON: Oropharnyx cancer (HCC) * * * * Physician Interpretation * * * * RESULT: EXAMINATION: CHEST CT WITH CONTRAST CLINICAL HISTORY: Head and neck cancer with known FDG avid pulmonary nodules and right hilar adenopathy. Technique: Spiral CT acquisition of the chest from the thoracic inlet to the upper abdomen following IV contrast. MQ: CTCW_6 Contrast: 150 mL Omnipaque [address] Radiation dose: Integrated Dose-length product (DLP) for this visit = 983 mGy*cm CT Dose Reduction Employed: Automated exposure control (AEC) Comparison: PET CT from 09/22/[address] without contrast from 08/24/2023 RESULT: Limitations: None. Lines, tubes, and devices: None. Lung parenchyma and airways: Benign calcified granuloma in the right upper lobe. Clustered small subcentimeter pulmonary nodules in the anterior right upper lobe on slice 60 of series 4, the largest of which measures 3 mm in size. This is at site of the previously seen solid 10 mm nodule on the chest CT from 08/24/2023. The previously seen 8 mm nodule in the posterior right upper lobe is now markedly decreased in size and measures 3 mm in size 83 of series 4. The previously seen 7 mm right middle lobe pulmonary nodule is no longer visualized. No new or enlarging pulmonary nodules. There is minimal paramedian groundglass consolidation in the right upper lobe which may be due to posttreatment change. Pleural space: No pleural effusion. No pleural thickening. Lower neck, lymph nodes, and mediastinum: No suspicious axillary lymphadenopathy. Partially calcified mildly enlarged right hilar lymph node measuring 2.3 x 1.6 cm. This is difficult to compare to the prior exams due to the lack of intravenous contrast on the prior studies. However, it is possible that this is increased in size when compared to the prior exams. Multiple small subcentimeter nonspecific mediastinal lymph nodes. Heart, pericardium, and thoracic vessels: Trace pericardial effusion. Moderate coronary artery calcification. Bones and soft tissues: Stable nonspecific sclerosis along the right lateral seventh rib. There is no definite FDG avidity in this region on the prior PET/CT. Upper abdomen: A CT of the abdomen and pelvis was performed and will be reported separately. Gre Instructor (topogram) images: No additional findings. DIVISION OF RADIOLOGY Provider, [facility] - 12/08/2023 * * *Final Report* * * DATE OF EXAM: Dec 08 2023 9:16AM [facility] 0539 - CT CHEST W IVCON / PROCEDURE REASON: Oropharnyx cancer (HCC) * * * * Physician Interpretation * * * * RESULT: EXAMINATION: CHEST CT WITH CONTRAST CLINICAL HISTORY: Head and neck cancer with known FDG avid pulmonary nodules and right hilar adenopathy. Technique: Spiral CT acquisition of the chest from the thoracic inlet to the upper abdomen following IV contrast. MQ: CTCW_6 Contrast: 150 mL Omnipaque [address] Radiation dose: Integrated Dose-length product (DLP) for this visit = 983 mGy*cm CT Dose Reduction Employed: Automated exposure control (AEC) Comparison: PET CT from 09/22/[address] without contrast from 08/24/2023 RESULT: Limitations: None. Lines, tubes, and devices: None. Lung parenchyma and airways: Benign calcified granuloma in the right upper lobe. Clustered small subcentimeter pulmonary nodules in the anterior right upper lobe on slice 60 of series 4, the largest of which measures 3 mm in size. This is at site of the previously seen solid 10 mm nodule on the chest CT from 08/24/2023. The previously seen 8 mm nodule in the posterior right upper lobe is now markedly decreased in size and measures 3 mm in size 83 of series 4. The previously seen 7 mm right middle lobe pulmonary nodule is no longer visualized. No new or enlarging pulmonary nodules. There is minimal paramedian groundglass consolidation in the right upper lobe which may be due to posttreatment change. Pleural space: No pleural effusion. No pleural thickening. Lower neck, lymph nodes, and mediastinum: No suspicious axillary lymphadenopathy. Partially calcified mildly enlarged right hilar lymph node measuring 2.3 x 1.6 cm. This is difficult to compare to the prior exams due to the lack of intravenous contrast on the prior studies. However, it is possible that this is increased in size when compared to the prior exams. Multiple small subcentimeter nonspecific mediastinal lymph nodes. Heart, pericardium, and thoracic vessels: Trace pericardial effusion. Moderate coronary artery calcification. Bones and soft tissues: Stable nonspecific sclerosis along the right lateral seventh rib. There is no definite FDG avidity in this region on the prior PET/CT. Upper abdomen: A CT of the abdomen and pelvis was performed and will be reported separately. Gre Instructor (topogram) images: No additional findings. IMPRESSION IMPRESSION: 1. Improvement in the previously seen pulmonary [...] is suspicious for progression of metastatic adenopathy. Transcribe Date/Time: Dec 08 2023 10:42A Dictated by: SIRI RUELAS MD This examination was interpreted and the report reviewed and electronically signed by: SIRI RUELAS MD on Dec 08 2023 11:01AM EST Thank you for allowing us to participate in the care of your patient. Should there be any questions regarding this interpretation, please call [phone]. If you are unable to reach us at the number above, please feel free to contact [facility] [place] eRadiology at [phone]. [facility] CT Chest W contrast IVOrdere d By: [facility] Provider on 12-08-2023 [facility] [place] Laboratory - Chemistry and C hemistry - challengeOrdered By: Boo Nava on 12-08-2023 Creatinine [Mass/Vol] 1.31 mg/dL High 0.73 - 1.22 mg/dL [facility] [place] GFR/1.73 sq M.predicted among non-blacks MDRD (S/P/Bld) [Vol rate/Area] 63 mL/min/{1.73_m2} - PINF [facility] [place] Comment on above: Estimated Glomerular Filtration Rate (eGFR) is calculated using the 2020 CKD-EPI creatinine equation. This equation utilizes serum creatinine, sex, and age as parameters. The creatinine assay has traceable calibration to isotope dilution-mass spectrometry. Refer to KDIGO guidelines for clinical interpretation. In patients with unstable renal function, e.g. those with acute kidney injury, the eGFR may not accurately reflect actual GFR. No Panel InformationOrdered By: Boo Nava on 12-08-2023 Interpretation and review of laboratory results Abnormal [facility] No Panel Informationon 12-07 Radiology Study observation (narrative) [facility] [place] CBC W Auto Differential pane l (Bld)on 09-26-2023 Basophils (Bld) [#/Vol] 0.04 10*3/uL <0.11 k/uL [facility] [place] Basophils/100 WBC (Bld) 0.8 % [facility] [place] Differential cell count method Nom (Bld) Auto [facility] [place] Eosinophils (Bld) [#/Vol] 0.21 10*3/uL <0.46 k/uL [facility] [place] Eosinophils/100 WBC (Bld) 4.1 % [facility] [place] Erythrocyte distribution width (RBC) [Ratio] 12.4 % 11.5 - 15.0 % [facility] [place] Hematocrit (Bld) [Volume fraction] 42.3 % 39.0 - 51.0 % [facility] [place] Hemoglobin (Bld) [Mass/Vol] 14.7 g/dL 13.0 - 17.0 g/dL [facility] [place] Immature granulocytes (Bld) [#/Vol] <0.10 k/uL [facility] [place] Immature granulocytes/100 WBC (Bld) 0.2 % [facility] [place] Lymphocytes (Bld) [#/Vol] 0.97 10*3/uL Low 1.00 - 4.00 k/uL [facility] [place] Lymphocytes/100 WBC (Bld) 18.9 % [facility] [place] MCH (RBC) [Entitic mass] 28.7 pg 26.0 - 34.0 pg [facility] MCHC (RBC) [Mass/Vol] 34.8 g/dL 30.5 - 36.0 g/dL [facility] [place] MCV (RBC) [Entitic vol] 82.6 fL 80.0 - 100.0 fL [facility] [place] Monocytes (Bld) [#/Vol] 0.53 10*3/uL <0.87 k/uL [facility] [place] Monocytes/100 WBC (Bld) 10.3 % [facility] Neutrophils (Bld) [#/Vol] 3.37 10*3/uL 1.45 - 7.50 k/uL [facility] [place] Neutrophils/100 WBC (Bld) 65.7 % [facility] [place] Nucleated RBC (Bld) [#/Vol] <0.01 k/uL [facility] [place] Nucleated RBC/100 WBC (Bld) [Ratio] 0.0 /100 WBC [facility] [place] Platelet mean volume (Bld) [Entitic vol] 8.3 fL Low 9.0 - 12.7 fL [facility] [place] Platelets (Bld) [#/Vol] 185 10*3/uL 150 - 400 k/uL [facility] [place] RBC (Bld) [#/Vol] 5.12 10*6/uL 4.20 - 6.00 m/uL [facility] [place] WBC (Bld) [#/Vol] 5.13 10*3/uL 3.70 - 11.00 k/u L [facility] [place] Comprehensive metabolic 2000 panelon 09-26-2023 Albumin [Mass/Vol] 4.7 g/dL 3.9 - 4.9 g/dL [facility] ALP [Catalytic activity/Vol] 86 U/L 38 - 113 U/L [facility] ALT [Catalytic activity/Vol] 15 U/L 10 - 54 U/L [facility] [place] Anion gap [Moles/Vol] 10 mmol/L 9 - 18 mmol/L [facility] [place] AST [Catalytic activity/Vol] 16 U/L 14 - 40 U/L [facility] [place] Bilirubin [Mass/Vol] 0.4 mg/dL 0.2 - 1.3 mg/dL [facility] [place] Calcium [Mass/Vol] 10.6 mg/dL High 8.5 - 10.2 mg/dL [facility] [place] Chloride [Moles/Vol] 104 mmol/L 97 - 105 mmol/L [facility] CO2 [Moles/Vol] 28 mmol/L 22 - 30 mmol/L [facility] Creatinine [Mass/Vol] 1.39 mg/dL High 0.73 - 1.22 mg/dL [facility] [place] Estimated Glomerular Filtration Rate 59 mL/min/1.73m Low >=60 mL/min/1.73m [facility] [place] Glucose [Mass/Vol] 94 mg/dL 74 - 99 mg/dL [facility] Potassium [Moles/Vol] 4.4 mmol/L 3.7 - 5.1 mmol/L [facility] [place] Protein [Mass/Vol] 7.2 g/dL 6.3 - 8.0 g/dL [facility] Sodium [Moles/Vol] 142 mmol/L 136 - 144 mmol/L [facility] [place] Urea nitrogen [Mass/Vol] 16 mg/dL 9 - 24 mg/dL [facility] [place] TSH BLDon 09-26-2023 TSH Qn 3.160 m[IU]/L 0.270 - 4.200 mIU/L [facility] PET+CT Guidance for localiza tion of tumor of Skull base to mid-thigh-- W [id number] Marcie 09-25-2023 IMPRESSION: 1. HEAD and NECK: No evidence of [...] uptake to suggest FDG avid neoplastic process.. Transcribe Date/Time: Sep 25 2023 12:55P Dictated by: TAMIKA CHIU MD This examination was interpreted and the report reviewed and electronically signed by: TAMIKA CHIU MD on Sep 25 2023 1:07PM EST Thank you for allowing us to participate in the care of your patient. Should there be any questions regarding this interpretation, please call [phone]. If you are unable to reach us at the number above, please feel free to contact [facility] eRadiology at [phone]. DIVISION OF RADIOLOGY * * *Final Report* * * DATE OF EXAM: Sep 22 2023 10:54AM NRN [id number] - NM PET/CT SKULL-THIGH INIT / PROCEDURE REASON: Neoplasm of lung * * * * Physician Interpretation * * * * RESULT: [REGIONAL] BODY PET-CT SCAN CLINICAL HISTORY: 58 years old Male with Neoplasm of lung . INDICATION: Initial treatment strategy. TECHNIQUE: PET-CT scan: Approximately 60 minutes following the IV administration of 11.0mCi of F-18 FDG), PET and non contrast CT images were acquired from the skull base through proximal thigh. PET images were reconstructed with and without attenuation correction using attenuation coefficients. The blood glucose level before FDG injection is 92 mg/dL CT Radiation dose: Integrated Dose-length product (DLP) for this visit = 230 mGy*cm. CT Dose Reduction Employed: Automatic exposure control used (AED) COMPARISON: FDG PET-CT: 04/14/2023 CORRELATION: CT chest 08/24/2023 RESULTS: Liver SUV max 3.0 Mediastinal blood pool SUV max 2.5 Topogram review: Unremarkable, no acute findings. No retained foreign body. Head and Neck: No evidence of focal uptake to suggest FDG avid neoplastic process in the limited scanned region. No FDG avid cervical lymphadenopathy. No significant anatomical abnormality to the limits of low dose noncontrast CT scan. Chest: New FDG avid right hilar lymphadenopathy 1.7 x 1.5 cm with SUV max 11.2. Interval increase in size in the right upper lobe nodule now 1.2 x 1.1 cm with SUV max 3.6 previously 0.6 cm with SUV max 1.3 More prominent cavitary lesion in the right upper lobe (4:123) 0.8 cm with SUV max 3.0. Right lower lobe nodule 0.6 cm previously 0.5 cm now with SUV max 1.7 previously 1.1. Abdomen and Pelvis: No evidence of focal uptake to suggest FDG avid neoplastic process. No FDG avid mesenteric, retroperitoneal, pelvic, or inguinal lymphadenopathy. No significant anatomical abnormality to the limits of low dose noncontrast CT scan. Extremities/Skeleton: No evidence of focal uptake to suggest FDG avid neoplastic process. No FDG avid osseous lesions. Mild degenerative changes noted. No significant anatomical abnormality to the limits of low dose noncontrast CT scan. DIVISION OF RADIOLOGY Provider, [facility] - 09/25/2023 * * *Final Report* * * DATE OF EXAM: Sep 22 2023 10:54AM NRN [id number] - NM PET/CT SKULL-THIGH INIT / PROCEDURE REASON: Neoplasm of lung * * * * Physician Interpretation * * * * RESULT: [REGIONAL] BODY PET-CT SCAN CLINICAL HISTORY: 58 years old Male with Neoplasm of lung . INDICATION: Initial treatment strategy. TECHNIQUE: PET-CT scan: Approximately 60 minutes following the IV administration of 11.0mCi of F-18 FDG), PET and non contrast CT images were acquired from the skull base through proximal thigh. PET images were reconstructed with and without attenuation correction using attenuation coefficients. The blood glucose level before FDG injection is 92 mg/dL CT Radiation dose: Integrated Dose-length product (DLP) for this visit = 230 mGy*cm. CT Dose Reduction Employed: Automatic exposure control used (AED) COMPARISON: FDG PET-CT: 04/14/2023 CORRELATION: CT chest 08/24/2023 RESULTS: Liver SUV max 3.0 Mediastinal blood pool SUV max 2.5 Topogram review: Unremarkable, no acute findings. No retained foreign body. Head and Neck: No evidence of focal uptake to suggest FDG avid neoplastic process in the limited scanned region. No FDG avid cervical lymphadenopathy. No significant anatomical abnormality to the limits of low dose noncontrast CT scan. Chest: New FDG avid right hilar lymphadenopathy 1.7 x 1.5 cm with SUV max 11.2. Interval increase in size in the right upper lobe nodule now 1.2 x 1.1 cm with SUV max 3.6 previously 0.6 cm with SUV max 1.3 More prominent cavitary lesion in the right upper lobe (4:123) 0.8 cm with SUV max 3.0. Right lower lobe nodule 0.6 cm previously 0.5 cm now with SUV max 1.7 previously 1.1. Abdomen and Pelvis: No evidence of focal uptake to suggest FDG avid neoplastic process. No FDG avid mesenteric, retroperitoneal, pelvic, or inguinal lymphadenopathy. No significant anatomical abnormality to the limits of low dose noncontrast CT scan. Extremities/Skeleton: No evidence of focal uptake to suggest FDG avid neoplastic process. No FDG avid osseous lesions. Mild degenerative changes noted. No significant anatomical abnormality to the limits of low dose noncontrast CT scan. IMPRESSION IMPRESSION: 1. HEAD and NECK: No evidence of [...] uptake to suggest FDG avid neoplastic process.. Transcribe Date/Time: Sep 25 2023 12:55P Dictated by: TAMIKA CHIU MD This examination was interpreted and the report reviewed and electronically signed by: TAMIKA CHIU MD on Sep 25 2023 1:07PM EST Thank you for allowing us to participate in the care of your patient. Should there be any questions regarding this interpretation, please call [phone]. If you are unable to reach us at the number above, please feel free to contact [facility] eRadiology at [phone]. [facility] PET+CT Guidance for localiza tion of tumor of Skull base to mid-thigh-- W 18F-FDG IVOrdered By: Ccf Provider on 09-25-2023 [facility] GLUCOSE, BLOOD (POC)on 09-22 Glucose [Mass/Vol] 92 mg/dL 74 - 99 mg/dL [facility] Comment on above: Location:[facility], [address] [place] [address] , [place], [place], [address] The Accu-Chek Inform II glucose meter has not been approved for testing on patients receiving intensive medical intervention or therapy and results from this point of care glucose test should not be used for patient management decisions in these cases. Inaccurate results may also occur from other interfering factors, such as N-acetylcysteine (blood concentrations of greater than 5mg/dL), galactose, extremes of hematocrit (<10 or >65), or high doses of ascorbic acid (vitamin C) greater than 3mg/dL. Consider alternate testing mechanisms (e.g. core lab, blood gas instrument) in the above situations. [facility] PET+CT Guidance for localiza tion of tumor of Skull base to mid-thigh-- W 18F-FDG Marcie 09-22-2023 Radiology Study observation (narrative) [facility] BRONCHOSCOPYon 08-30-2023 [facility] CT CHEST WO IVCONon 08-24-20 23 [facility] Pre-Certification Formon Pre-Certification Form [id number] F Normal [facility] CT Chest WO contraston 07-18 IMPRESSION: 1. Since 04/14/2023, multiple enlarging right lung nodules, suspicious for metastases. 2. No progressive lymphadenopathy. Transcribe Date/Time: Jul 18 2023 3:31P Dictated by: BARRY BRANHAM MD This examination was interpreted and the report reviewed and electronically signed by: BARRY BRANHAM MD on Jul 18 2023 4:02PM EST Thank you for allowing us to participate in the care of your patient. Should there be any questions regarding this interpretation, please call [phone]. If you are unable to reach us at the number above, please feel free to contact [facility] eRadiology at [phone]. DIVISION OF RADIOLOGY * * *Final Report* * * DATE OF EXAM: Jul 18 2023 1:36PM [facility] 0541 - CT CHEST WO IVCON / PROCEDURE REASON: Oropharnyx cancer (HCC) * * * * Physician Interpretation * * * * RESULT: EXAMINATION: CHEST CT WITHOUT CONTRAST CLINICAL HISTORY: Oropharyngeal cancer Technique: Spiral CT acquisition of the chest from the thoracic inlet to the upper abdomen without contrast. MQ: CTCWO_6 CT Radiation dose: Integrated Dose-length product (DLP) for this visit = 256 mGy*cm CT Dose Reduction Employed: Automated exposure control (AEC) Comparison: PET/CT 04/14/2023 and 11/11/2022 RESULT: Limitations: None. Lines, tubes, and devices: None. Lung parenchyma and airways: A right apical calcified granuloma is unchanged. No new airspace consolidation. The central tracheobronchial tree is patent. There are multiple enlarging pulmonary nodules, detailed as follows: - An anterior right upper lobe nodule on series 4, image 71 measures 1 x 0.7 cm (previously 0.6 x 0.4 cm). - A right upper lobe nodule on series 4, image 84 measures 0.6 x 0.7 cm (previously 0.3 x 0.5 cm). - A right middle lobe nodule on series 4, image 106 measures 0.8 x 0.6 cm (previously 0.4 x 0.5 cm). Pleural space: No pleural effusion. No pleural thickening. Lower neck, lymph nodes, and mediastinum: There is a small hiatal hernia. The imaged thyroid is unremarkable. No supraclavicular, axillary, mediastinal or hilar lymphadenopathy. Scattered subcentimeter short axis mediastinal lymph nodes are unchanged and nonspecific. Calcified right hilar lymph nodes are compatible with prior granulomas disease. Heart, pericardium, and thoracic vessels: The thoracic aorta and main pulmonary artery are normal in caliber. The cardiac chambers are normal in size. Coronary artery atherosclerotic calcifications are noted, although the study is not optimized for coronary assessment. No pericardial effusion or thickening. Bones and soft tissues: Degenerative change involves the thoracic spine. No destructive lytic or blastic osseous abnormality. Upper abdomen: No abnormality in the imaged upper abdomen. Gre Instructor (topogram) images: No additional findings. DIVISION OF RADIOLOGY Provider, [facility] - 07/18/2023 * * *Final Report* * * DATE OF EXAM: Jul 18 2023 1:36PM [facility] 0541 - CT CHEST WO IVCON / PROCEDURE REASON: Oropharnyx cancer (HCC) * * * * Physician Interpretation * * * * RESULT: EXAMINATION: CHEST CT WITHOUT CONTRAST CLINICAL HISTORY: Oropharyngeal cancer Technique: Spiral CT acquisition of the chest from the thoracic inlet to the upper abdomen without contrast. MQ: CTCWO_6 CT Radiation dose: Integrated Dose-length product (DLP) for this visit = 256 mGy*cm CT Dose Reduction Employed: Automated exposure control (AEC) Comparison: PET/CT 04/14/2023 and 11/11/2022 RESULT: Limitations: None. Lines, tubes, and devices: None. Lung parenchyma and airways: A right apical calcified granuloma is unchanged. No new airspace consolidation. The central tracheobronchial tree is patent. There are multiple enlarging pulmonary nodules, detailed as follows: - An anterior right upper lobe nodule on series 4, image 71 measures 1 x 0.7 cm (previously 0.6 x 0.4 cm). - A right upper lobe nodule on series 4, image 84 measures 0.6 x 0.7 cm (previously 0.3 x 0.5 cm). - A right middle lobe nodule on series 4, image 106 measures 0.8 x 0.6 cm (previously 0.4 x 0.5 cm). Pleural space: No pleural effusion. No pleural thickening. Lower neck, lymph nodes, and mediastinum: There is a small hiatal hernia. The imaged thyroid is unremarkable. No supraclavicular, axillary, mediastinal or hilar lymphadenopathy. Scattered subcentimeter short axis mediastinal lymph nodes are unchanged and nonspecific. Calcified right hilar lymph nodes are compatible with prior granulomas disease. Heart, pericardium, and thoracic vessels: The thoracic aorta and main pulmonary artery are normal in caliber. The cardiac chambers are normal in size. Coronary artery atherosclerotic calcifications are noted, although the study is not optimized for coronary assessment. No pericardial effusion or thickening. Bones and soft tissues: Degenerative change involves the thoracic spine. No destructive lytic or blastic osseous abnormality. Upper abdomen: No abnormality in the imaged upper abdomen. Gre Instructor (topogram) images: No additional findings. IMPRESSION IMPRESSION: 1. Since 04/14/2023, multiple enlarging right lung nodules, suspicious for metastases. 2. No progressive lymphadenopathy. Transcribe Date/Time: Jul 18 2023 3:31P Dictated by: BARRY BRANHAM MD This examination was interpreted and the report reviewed and electronically signed by: BARRY BRANHAM MD on Jul 18 2023 4:02PM EST Thank you for allowing us to participate in the care of your patient. Should there be any questions regarding this interpretation, please call [phone]. If you are unable to reach us at the number above, please feel free to contact [facility] eRadiology at [phone]. [facility] Radiology Study observation (narrative) [facility] CT Chest WO contrastOrdered By: Ccf Provider on 07-18-2023 [facility] Formson 07-10-2023 Forms [id number]: 127 Normal [facility] Ambulatory Visit Summaryon 0 07-07-2023 Ambulatory Visit Summary CAITLIN ELMORE :1965 Visit Date:07/07/2023 Ambulatory Visit Instructions Your Diagnosis Elevated PSA BPH with urinary obstruction Family history of prostate cancer in father Tests Performed Urnls Dip Stick Auto w/o Microscopy POC 62027 Your Care Team Attending Physician - Norma Craig MD Primary Care Physician - Julian Burton MD This Is Your Medications List [...] Norma Craig MD Where: [facility] Servando Normal [address] [place] [address]- \.br\ You Need to Schedule the Following Appointments\.br\ Follow Up with Rafa KELLEY, Norma Moran, URL, URO When: \.br\ Where:\.br\ Medications\.br\ What [...] Urnls Dip Stick Auto w/o Microscopy POC 84859 (07/07/2023)\.br\ Bilirubin Urine Dipstick - Negative\.br\ Blood Urine Dipstick - 3+ Large\.br\ Glucose Urine Dipstick - Negative\.br\ Ketones Urine Dipstick - Negative\.br\ Leukocytes Urine Dipstick - Negative\.br\ Nitrite Urine Dipstick - Negative\.br\ Protein Urine Dipstick - Negative\.br\ Specific [place] Urine Dipstick - 1.025\.br\ Urine Appearance Urine [...] to find more information\.br\ ? \.br\ The [place] [employer]: www.cancer.org\.b r\ ? \.br\ [place] [employer]: www.auanet.org\.b r\ Contact a health [...] of the body.\.br\ ? \.br\ The prostate-specific [facility] Patient Educationon 07-07-20 23 Patient Education [...] Where to find more information ? The [place] [employer]: www.cancer.org ? [place] [employer] Association: www.auanet.org Contact a health care [...] adds flu (more content not included)... Normal [facility] Screenson 07-07-2023 Screens [id number] :127 Normal [facility] Screens [id number]: 127 Normal [facility] Urology Office/Clinic Noteon 07-07-2023 Urology Office/Clinic [...] with voice recognition artificial intelligence software, specifically [employer] and or [employer]. Substitutions may have occurred due to the [...] When Contact Information (more content not included)... Normal [facility] Comment on above: Result Comment: Elec tronically Signed By: Norma Craig MD\.br\Date and Time Signed: 07/07/23 16:54 EDT\.br\Electronically Co-Signed By: Pascale Koch\.br\Date and Time Co-Signed: 07/07/23 11:11 EDT MR prostate wo/w conon 05-17 MR prostate wo/w con [facility] [place] [address] MRI Report Signed Patient: Caitlin Elmore MR#: [id number] : 1965 Acct:[id number] Age/Sex: 58 / M ADM Date: 05/16/23 Loc: Room: Type: [facility] Attending Dr: Lee Ivy MD Copies to: Nino Ivy MD Ordering Provider: Nino Ivy MD Date of Service: 05/16/23 MR/MR prostate [...] suggested. Impression dictated by: Ras Goddard Jr., D.OVon05/17/2023 4:06 PM Dictation Location: [place] [address] Transcribed By: [facility] 05/17/23 1606 Dictated By: Ras Goddard Jr, DO 05/17/23 1022 Signed By: 05/17/23 1606 Normal [facility] CBC W Auto Differential pane l (Bld)on 04-14-2023 Basophils (Bld) [#/Vol] 0.04 10*3/uL [facility] Basophils/100 WBC (Bld) 0.8 % [facility] Differential cell count method Nom (Bld) Auto [facility] Eosinophils (Bld) [#/Vol] 0.48 10*3/uL High [facility] Eosinophils/100 WBC (Bld) 10.0 % [facility] Erythrocyte distribution width (RBC) [Ratio] 11.9 % 11.5 - 15.0 % [facility] Hematocrit (Bld) [Volume fraction] 36.3 % Low 39.0 - 51.0 % [facility] Hemoglobin (Bld) [Mass/Vol] 12.5 g/dL Low 13.0 - 17.0 g/dL [facility] Immature granulocytes (Bld) [#/Vol] BANNERF [facility] Immature granulocytes/100 WBC (Bld) 0.2 % [facility] Interpretation and review of laboratory results Abnormal [facility] Lymphocytes (Bld) [#/Vol] 0.79 10*3/uL Low [facility] Lymphocytes/100 WBC (Bld) 16.5 % [facility] MCH (RBC) [Entitic mass] 29.4 pg 26.0 - 34.0 pg [facility] MCHC (RBC) [Mass/Vol] 34.4 g/dL 30.5 - 36.0 g/dL [facility] MCV (RBC) [Entitic vol] 85.4 fL 80.0 - 100.0 fL [facility] Monocytes (Bld) [#/Vol] 0.44 10*3/uL BANNERF [facility] Monocytes/100 WBC (Bld) 9.2 % [facility] Neutrophils (Bld) [#/Vol] 3.03 10*3/uL [facility] Neutrophils/100 WBC (Bld) 63.3 % [facility] Nucleated RBC (Bld) [#/Vol] NINF [facility] Nucleated RBC/100 WBC (Bld) [Ratio] 0.0 % /100 WBC [facility] Platelet mean volume (Bld) [Entitic vol] 8.8 fL Low 9.0 - 12.7 fL [facility] Platelets (Bld) [#/Vol] 169 10*3/uL [facility] RBC (Bld) [#/Vol] 4.25 10*6/uL 4.20 - 6.00 m/uL [facility] WBC (Bld) [#/Vol] 4.79 10*3/uL [facility] Comprehensive metabolic 2000 panelOrdered By: Boo Nava on 04-14-2023 Albumin [Mass/Vol] 4.3 g/dL 3.9 - 4.9 g/dL [facility] ALP [Catalytic activity/Vol] 86 U/L 38 - 113 U/L [facility] ALT [Catalytic activity/Vol] 16 U/L 10 - 54 U/L [facility] Anion gap [Moles/Vol] 7 mmol/L Low 9 - 18 mmol/L [facility] AST [Catalytic activity/Vol] 15 U/L 14 - 40 U/L [facility] Bilirubin [Mass/Vol] 0.3 mg/dL 0.2 - 1.3 mg/dL [facility] Calcium [Mass/Vol] 9.8 mg/dL 8.5 - 10.2 mg/dL [facility] Chloride [Moles/Vol] 105 mmol/L 97 - 105 mmol/L [facility] CO2 [Moles/Vol] 27 mmol/L 22 - 30 mmol/L [facility] Creatinine [Mass/Vol] 1.25 mg/dL High 0.73 - 1.22 mg/dL [facility] GFR/1.73 sq M.predicted among non-blacks MDRD (S/P/Bld) [Vol rate/Area] 67 mL/min/{1.73_m2} - PINF [facility] Comment on above: Estimated Glomerular Filtration Rate [...] not accurately reflect actual GFR. Glucose [Mass/Vol] 102 mg/dL High 74 - 99 mg/dL [facility] Comment on above: The [place] Diabete s Association (ADA) provides guidance for [...] Standards of Medical Care in Diabetes 2016, [place] [employer] Association. Diabetes Care. 2016.39(Suppl 1). Interpretation and review of laboratory results Abnormal [facility] Potassium [Moles/Vol] 4.3 mmol/L 3.7 - 5.1 mmol/L [facility] Protein [Mass/Vol] 6.6 g/dL 6.3 - 8.0 g/dL [facility] Sodium [Moles/Vol] 139 mmol/L 136 - 144 mmol/L [facility] Urea nitrogen [Mass/Vol] 17 mg/dL 9 - 24 mg/dL [facility] GLUCOSE, BLOOD (POC)on 04-14 Glucose [Mass/Vol] 94 mg/dL 74 - 99 mg/dL [facility] Comment on above: Location:[facility], [address] , [place], [place], [address] The Accu-Chek Inform II glucose meter has not been approved for testing on patients receiving intensive medical intervention or therapy and results from this point of care glucose test should not be used for patient management decisions in these cases. Inaccurate results may also occur from other interfering factors, such as N-acetylcysteine (blood concentrations of greater than 5mg/dL), galactose, extremes of hematocrit (<10 or >65), or high doses of ascorbic acid (vitamin C) greater than 3mg/dL. Consider alternate testing mechanisms (e.g. core lab, blood gas instrument) in the above situations. [facility] PET+CT Guidance for localiza tion of tumor of Skull base to mid-thigh-- W 18F-FDG Marcie 04-14-2023 IMPRESSION: 1. NECK: * Interval resolution of intense [...] * No suspicious FDG avid osseous lesion. Transcribe Date/Time: Apr 14 2023 10:35A Dictated by: ELOY BRUNNER, DO This examination was interpreted and the report reviewed and electronically signed by: GREGORY HERNANDEZ MD on Apr 14 2023 12:00PM EST Thank you for allowing us to participate in the care of your patient. Should there be any questions regarding this interpretation, please call [phone]. If you are unable to reach us at the number above, please feel free to contact [facility] eRadiology at [phone]. 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 INDICATION: Study performed for subsequent treatment strategy. TECHNIQUE: F18-FDG administered IV was followed about 60 minutes later by PET imaging from eyes to proximal thighs. Free breathing low dose CT was performed without contrast for attenuation correction and anatomic localization. Blood glucose before FDG injection: 94 mg/dL FDG radionuclide dose: 9.[address] Dose-Length Product (DLP): 229 mGy*cm. CT Dose Reduction Employed: Automated exposure control COMPARISON: FDG PET/CT 11/11/2022 CORRELATION: None. RESULT: -Mediastinum blood pool activity: Max SUV 2.1 -Background liver activity: Max SUV 2.7 HEAD AND NECK: Interval resolution of intense uptake in the right lung base. Physiologic uptake otherwise noted in the visualized brain, extraocular muscles, parapharyngeal soft tissues, vocal cords, and salivary glands. Lymph nodes: No FDG avid cervical lymphadenopathy or mass. Thyroid: No FDG avid lesion. CHEST: Lungs and Tracheobronchial Tree: No new FDG avid consolidation. 6 mm right upper lobe nodule (image 58) and 4 mm right upper lobe nodule (image 74) are new from prior. Note that PET/CT is not sensitive for pulmonary nodules smaller than 8 mm. Calcified granuloma in the right upper lobe. Pleura: No FDG avid pleural effusion or pleural mass. Mediastinum and Lymph Nodes: No FDG avid mediastinal mass, mediastinal, or hilar lymphadenopathy. Calcified mediastinal lymph nodes, likely sequela of remote granulomatous disease. Heart and Great Vessels: Physiologic blood pool and myocardial activity. Multivessel coronary calcifications noted, though this study was not optimized for coronary assessment. Chest Wall and Axilla: No FDG avid axillary lymphadenopathy. ABDOMEN AND PELVIS: Physiologic uptake in the and GI tracts. Liver: No FDG avid lesion. Biliary: Unremarkable gallbladder. Spleen: No FDG avid lesion. No splenomegaly. Pancreas: No FDG avid lesion. Adrenals: No FDG avid lesion. Kidneys: No FDG avid lesions, calculi, or hydronephrosis. GI tract: No dilated bowel or focal suspicious FDG avid lesion. Lymph Nodes: No FDG avid abdominal or pelvic lymphadenopathy. Mesentery/Peritoneum: No ascites or FDG avid mass. Vasculature: Mild atherosclerotic calcification. No abdominal aortic or iliac artery aneurysm. Pelvis: Again noted is focal FDG uptake in the left prostate with Max SUV 11.3 (previously 14.2). Prostatic calcifications. No ascites. BONES AND EXTREMITIES: No suspicious FDG avid or destructive osseous lesion. Degenerative osseous changes. Gre Instructor (topogram) images: No additional findings. DIVISION OF RADIOLOGY Provider, 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 INDICATION: Study performed for subsequent treatment strategy. TECHNIQUE: F18-FDG administered IV was followed about 60 minutes later by PET imaging from eyes to proximal thighs. Free breathing low dose CT was performed without contrast for attenuation correction and anatomic localization. Blood glucose before FDG injection: 94 mg/dL FDG radionuclide dose: 9.[address] Dose-Length Product (DLP): 229 mGy*cm. CT Dose Reduction Employed: Automated exposure control COMPARISON: FDG PET/CT 11/11/2022 CORRELATION: None. RESULT: -Mediastinum blood pool activity: Max SUV 2.1 -Background liver activity: Max SUV 2.7 HEAD AND NECK: Interval resolution of intense uptake in the right lung base. Physiologic uptake otherwise noted in the visualized brain, extraocular muscles, parapharyngeal soft tissues, vocal cords, and salivary glands. Lymph nodes: No FDG avid cervical lymphadenopathy or mass. Thyroid: No FDG avid lesion. CHEST: Lungs and Tracheobronchial Tree: No new FDG avid consolidation. 6 mm right upper lobe nodule (image 58) and 4 mm right upper lobe nodule (image 74) are new from prior. Note that PET/CT is not sensitive for pulmonary nodules smaller than 8 mm. Calcified granuloma in the right upper lobe. Pleura: No FDG avid pleural effusion or pleural mass. Mediastinum and Lymph Nodes: No FDG avid mediastinal mass, mediastinal, or hilar lymphadenopathy. Calcified mediastinal lymph nodes, likely sequela of remote granulomatous disease. Heart and Great Vessels: Physiologic blood pool and myocardial activity. Multivessel coronary calcifications noted, though this study was not optimized for coronary assessment. Chest Wall and Axilla: No FDG avid axillary lymphadenopathy. ABDOMEN AND PELVIS: Physiologic uptake in the and GI tracts. Liver: No FDG avid lesion. Biliary: Unremarkable gallbladder. Spleen: No FDG avid lesion. No splenomegaly. Pancreas: No FDG avid lesion. Adrenals: No FDG avid lesion. Kidneys: No FDG avid lesions, calculi, or hydronephrosis. GI tract: No dilated bowel or focal suspicious FDG avid lesion. Lymph Nodes: No FDG avid abdominal or pelvic lymphadenopathy. Mesentery/Peritoneum: No ascites or FDG avid mass. Vasculature: Mild atherosclerotic calcification. No abdominal aortic or iliac artery aneurysm. Pelvis: Again noted is focal FDG uptake in the left prostate with Max SUV 11.3 (previously 14.2). Prostatic calcifications. No ascites. BONES AND EXTREMITIES: No suspicious FDG avid or destructive osseous lesion. Degenerative osseous changes. Gre Instructor (topogram) images: No additional findings. IMPRESSION IMPRESSION: 1. NECK: * Interval resolution of intense [...] * No suspicious FDG avid osseous lesion. Transcribe Date/Time: Apr 14 2023 10:35A Dictated by: ELOY BRUNNER DO This examination was interpreted and the report reviewed and electronically signed by: GREGORY HERNANDEZ MD on Apr 14 2023 12:00PM EST Thank you for allowing us to participate in the care of your patient. Should there be any questions regarding this interpretation, please call [phone]. If you are unable to reach us at the number above, please feel free to contact [facility] eRadiology at [phone]. [facility] Radiology Study observation (narrative) [facility] PET+CT Guidance for localiza tion of tumor of Skull base to mid-thigh-- W 18F-FDG IVOrdered By: Ccf Provider on 04-14-2023 [facility] Basic metabolic panel (Bld)o n 12-21-2022 Anion gap (Bld) [Moles/Vol] 13 mmol/L 0 - 15 mmol/L [facility] Calcium.ionized (Bld) [Moles/Vol] 1.28 mmol/L 1.12 - 1.32 mmol/L [facility] Chloride [Moles/Vol] 97 mmol/L Low 98 - 109 mmol/L [facility] CO2 [Moles/Vol] 28 mmol/L 24 - 29 mmol/L [facility] Creatinine [Mass/Vol] 1.30 mg/dL 0.60 - 1.30 mg/dL [facility] GFR/1.73 sq M.predicted among non-blacks MDRD (S/P/Bld) [Vol rate/Area] 64 mL/min/1.73m >=60 mL/min/1.73m [facility] Glucose [Mass/Vol] 98 mg/dL 70 - 105 mg/dL [facility] Potassium [Moles/Vol] 3.9 mmol/L 3.5 - 4.9 mmol/L [facility] Sodium [Moles/Vol] 138 mmol/L 138 - 146 mmol/L [facility] Urea nitrogen [Mass/Vol] 22 mg/dL 8 - 26 mg/dL [facility] CBC W Auto Differential pane l (Bld)on 11-21-2022 Basophils (Bld) [#/Vol] 0.05 10*3/uL <0.11 k/uL [facility] Basophils/100 WBC (Bld) 0.7 % [facility] Differential cell count method Nom (Bld) Auto [facility] Eosinophils (Bld) [#/Vol] 0.73 10*3/uL High <0.46 k/uL [facility] Eosinophils/100 WBC (Bld) 10.2 % [facility] Erythrocyte distribution width (RBC) [Ratio] 12.2 % 11.5 - 15.0 % [facility] Hematocrit (Bld) [Volume fraction] 41.6 % 39.0 - 51.0 % [facility] Hemoglobin (Bld) [Mass/Vol] 13.9 g/dL 13.0 - 17.0 g/dL [facility] Immature granulocytes (Bld) [#/Vol] <0.10 k/uL [facility] Immature granulocytes/100 WBC (Bld) 0.3 % [facility] Lymphocytes (Bld) [#/Vol] 1.47 10*3/uL 1.00 - 4.00 k/uL [facility] Lymphocytes/100 WBC (Bld) 20.6 % [facility] MCH (RBC) [Entitic mass] 28.1 pg 26.0 - 34.0 pg [facility] MCHC (RBC) [Mass/Vol] 33.4 g/dL 30.5 - 36.0 g/dL [facility] MCV (RBC) [Entitic vol] 84.0 fL 80.0 - 100.0 fL [facility] Monocytes (Bld) [#/Vol] 0.57 10*3/uL <0.87 k/uL [facility] Monocytes/100 WBC (Bld) 8.0 % [facility] Neutrophils (Bld) [#/Vol] 4.29 10*3/uL 1.45 - 7.50 k/uL [facility] Neutrophils/100 WBC (Bld) 60.2 % [facility] Nucleated RBC (Bld) [#/Vol] <0.01 k/uL [facility] Nucleated RBC/100 WBC (Bld) [Ratio] 0.0 /100 WBC [facility] Platelet mean volume (Bld) [Entitic vol] 8.7 fL Low 9.0 - 12.7 fL [facility] Platelets (Bld) [#/Vol] 192 10*3/uL 150 - 400 k/uL [facility] RBC (Bld) [#/Vol] 4.95 10*6/uL 4.20 - 6.00 m/uL [facility] WBC (Bld) [#/Vol] 7.13 10*3/uL 3.70 - 11.00 k/u L [facility] Comprehensive metabolic 2000 panelon 11-21-2022 Albumin [Mass/Vol] 4.7 g/dL 3.9 - 4.9 g/dL [facility] ALP [Catalytic activity/Vol] 94 U/L 38 - 113 U/L [facility] ALT [Catalytic activity/Vol] 20 U/L 10 - 54 U/L [facility] Anion gap [Moles/Vol] 10 mmol/L 9 - 18 mmol/L [facility] AST [Catalytic activity/Vol] 15 U/L 14 - 40 U/L [facility] Bilirubin [Mass/Vol] 0.3 mg/dL 0.2 - 1.3 mg/dL [facility] Calcium [Mass/Vol] 10.1 mg/dL 8.5 - 10.2 mg/dL [facility] Chloride [Moles/Vol] 102 mmol/L 97 - 105 mmol/L [facility] CO2 [Moles/Vol] 26 mmol/L 22 - 30 mmol/L [facility] Creatinine [Mass/Vol] 1.15 mg/dL 0.73 - 1.22 mg/dL [facility] Estimated Glomerular Filtration Rate 75 mL/min/1.73m >=60 mL/min/1.73m [facility] Glucose [Mass/Vol] 91 mg/dL 74 - 99 mg/dL [facility] Potassium [Moles/Vol] 3.9 mmol/L 3.7 - 5.1 mmol/L [facility] Protein [Mass/Vol] 7.2 g/dL 6.3 - 8.0 g/dL [facility] Sodium [Moles/Vol] 138 mmol/L 136 - 144 mmol/L [facility] Urea nitrogen [Mass/Vol] 24 mg/dL 9 - 24 mg/dL [facility] Laboratory - Chemistry and C hemistry - challengeon 11-21-2022 Magnesium [Mass/Vol] 2.3 mg/dL 1.7 - 2.3 mg/dL [facility] PET+CT Guidance for localiza tion of tumor of Skull base to mid-thigh-- W 18F-FDG Marcie 11-12-2022 IMPRESSION: 1. Neck: Intensely hypermetabolic right oropharyngeal region mass compatible with neoplastic process. Hypermetabolic right cervical lymphadenopathy suspicious for metastatic lymphadenopathy. 2. Chest: No evidence of FDG avid neoplastic process 3. Abdomen and pelvis: No evidence of FDG avid metastases Increased activity in the prostatic region correlation with PSA is suggested. 4. Skeleton: No hypermetabolic osseous lesions Transcribe Date/Time: Nov 11 2022 5:07P Dictated by: LUDMILA NIETO MD This examination was interpreted and the report reviewed and electronically signed by: LUDMILA NIETO MD on Nov 12 2022 11:50AM EST Thank you for allowing us to participate in the care of your patient. Should there be any questions regarding this interpretation, please call [phone]. If you are unable to reach us at the number above, please feel free to [facility] [phone]. DIVISION OF RADIOLOGY * * *Final Report* * * DATE OF EXAM: Nov 11 2022 3:32PM NRN [id number] - NM PET/CT SKULL-THIGH INIT / PROCEDURE REASON: Oropharnyx cancer (HCC) * * * * Physician Interpretation * * * * RESULT: FDG PET/CT SCAN: CLINICAL HISTORY: Oropharyngeal cancer. INDICATION: Initial treatment strategy. TECHNIQUE: 13.2 mCi 18-FDG IV, followed about 1 hour later by PET imaging from top of the skull to proximal femur. Non contrast CT was performed for attenuation correction and anatomic localization purposes. CT Dose-Length Product (DLP): 256 mGy*cm. CT Dose Reduction Employed: Yes BLOOD GLUCOSE: 74 mg/dL Correlation: CT neck 10/13/2022 RESULT: HEAD AND NECK: Likely physiological activity in the oral cavity, tonsillar regions, salivary glands, visualized brain. Intensely increased uptake with soft tissue asymmetry involving the right oropharynx in the tonsillar, tongue base/vallecular regions extending to the left on the posterior aspect and inferior aspect (max SUV 25). Smaller region of increased uptake in the left tonsillar region (Max SUV 11.5). Hypermetabolic right level 2 lymph node conglomerate measures about 2.5 x 3 cm (max SUV 21). slight asymmetric uptake in the left nasopharyngeal region is possibly inflammatory. CHEST: There is no hypermetabolic hilar or mediastinal lymphadenopathy. There is no hypermetabolic axillary lymphadenopathy. Calcified right hilar lymph node. Calcified granuloma in the right upper lobe. There are no hypermetabolic foci in the lungs. ABDOMEN AND PELVIS: The liver is slightly heterogeneous activity but no focal lesions are identified. There are no hypermetabolic foci in the liver, spleen, adrenals. There is no hypermetabolic abdominal or pelvic lymphadenopathy. Physiologic activity is noted in the liver, renal collecting system, bladder and bowel. Increased activity in the prostatic region. Correlation with PSA suggested. SKELETON: There are no hypermetabolic osseous lesions. Gre Instructor (topogram) images:No additional findings. DIVISION OF RADIOLOGY Provider, [facility] - 11/12/2022 * * *Final Report* * * DATE OF EXAM: Nov 11 2022 3:32PM NRN [id number] - NM PET/CT SKULL-THIGH INIT / PROCEDURE REASON: Oropharnyx cancer (HCC) * * * * Physician Interpretation * * * * RESULT: FDG PET/CT SCAN: CLINICAL HISTORY: Oropharyngeal cancer. INDICATION: Initial treatment strategy. TECHNIQUE: 13.2 mCi 18-FDG IV, followed about 1 hour later by PET imaging from top of the skull to proximal femur. Non contrast CT was performed for attenuation correction and anatomic localization purposes. CT Dose-Length Product (DLP): 256 mGy*cm. CT Dose Reduction Employed: Yes BLOOD GLUCOSE: 74 mg/dL Correlation: CT neck 10/13/2022 RESULT: HEAD AND NECK: Likely physiological activity in the oral cavity, tonsillar regions, salivary glands, visualized brain. Intensely increased uptake with soft tissue asymmetry involving the right oropharynx in the tonsillar, tongue base/vallecular regions extending to the left on the posterior aspect and inferior aspect (max SUV 25). Smaller region of increased uptake in the left tonsillar region (Max SUV 11.5). Hypermetabolic right level 2 lymph node conglomerate measures about 2.5 x 3 cm (max SUV 21). slight asymmetric uptake in the left nasopharyngeal region is possibly inflammatory. CHEST: There is no hypermetabolic hilar or mediastinal lymphadenopathy. There is no hypermetabolic axillary lymphadenopathy. Calcified right hilar lymph node. Calcified granuloma in the right upper lobe. There are no hypermetabolic foci in the lungs. ABDOMEN AND PELVIS: The liver is slightly heterogeneous activity but no focal lesions are identified. There are no hypermetabolic foci in the liver, spleen, adrenals. There is no hypermetabolic abdominal or pelvic lymphadenopathy. Physiologic activity is noted in the liver, renal collecting system, bladder and bowel. Increased activity in the prostatic region. Correlation with PSA suggested. SKELETON: There are no hypermetabolic osseous lesions. Gre Instructor (topogram) images:No additional findings. IMPRESSION IMPRESSION: 1. Neck: Intensely hypermetabolic right oropharyngeal region mass compatible with neoplastic process. Hypermetabolic right cervical lymphadenopathy suspicious for metastatic lymphadenopathy. 2. Chest: No evidence of FDG avid neoplastic process 3. Abdomen and pelvis: No evidence of FDG avid metastases Increased activity in the prostatic region correlation with PSA is suggested. 4. Skeleton: No hypermetabolic osseous lesions Transcribe Date/Time: Nov 11 2022 5:07P Dictated by: LUDMILA NIETO MD This examination was interpreted and the report reviewed and electronically signed by: LUDMILA NIETO MD on Nov 12 2022 11:50AM EST Thank you for allowing us to participate in the care of your patient. Should there be any questions regarding this interpretation, please call [phone]. If you are unable to reach us at the number above, please feel free to contact [facility] eRadiology at [phone]. [facility] PET+CT Guidance for localiza tion of tumor of Skull base to mid-thigh-- W 18F-FDG IVOrdered By: Ccf Provider on 11-12-2022 [facility] GLUCOSE, BLOOD (POC)on 11-11 Glucose [Mass/Vol] 74 mg/dL 74 - 99 mg/dL [facility] Comment on above: Location:[facility], [address] [place] [address] , [place], [place], [address] The Accu-Chek Inform II glucose meter has not been approved for testing on patients receiving intensive medical intervention or therapy and results from this point of care glucose test should not be used for patient management decisions in these cases. Inaccurate results may also occur from other interfering factors, such as N-acetylcysteine (blood concentrations of greater than 5mg/dL), galactose, extremes of hematocrit (<10 or >65), or high doses of ascorbic acid (vitamin C) greater than 3mg/dL. Consider alternate testing mechanisms (e.g. core lab, blood gas instrument) in the above situations. [facility] PET+CT Guidance for localiza tion of tumor of Skull base to mid-thigh-- W 18F-FDG Marcie 11-11-2022 Radiology Study observation (narrative) [facility] CBC AUTO DIFFon 10-13-2022 BASO # 0.0 103/ul Normal 0.0-0.1 [facility] Comment on above: Performed By: #### C BC #### [facility] [address] [address] [address] Nima Ortiz Basophils/100 WBC (Bld) 0.5 % Normal 0.2-2.0 [facility] Comment on above: Performed By: #### C BC #### [facility] [address] [place] [address] Dr. Nima Ortiz EO # 0.7 103/ul Normal 0.0-0.7 [facility] Comment on above: Performed By: #### C BC #### [facility] [address] [address] [address] iNma Ortiz Eosinophils/100 WBC (Bld) 9.0 % Critically high 0.9-7.0 [facility] Comment on above: Performed By: #### C BC #### [facility] [address] [place] [address] Dr. Nima Ortiz Erythrocyte distribution width (RBC) [Ratio] 12.6 % Normal 11.0-15.0 [facility] Comment on above: Performed By: #### C BC #### [facility] [address] [place] [address] Dr. Nima Ortiz Hematocrit (Bld) [Volume fraction] 38.7 % Critically low 42.0-54.0 [facility] Comment on above: Performed By: #### C BC #### [facility] [address] [place] [address] Dr. Nima Ortiz Hemoglobin (Bld) [Mass/Vol] 12.7 g/dL Critically low 14.0-18.0 [facility] Comment on above: Performed By: #### C BC #### [facility] [address] [place] [address] Dr. Nima Ortiz IG # 0.02 10e3/ul Normal 0.00-0.03 [facility] Comment on above: Performed By: #### C BC #### [facility] [address] [place] [address] Dr. Nima Ortiz IG % 0.2 % Normal 0.0-0.5 [facility] Comment on above: Performed By: #### C BC #### [facility] [address] [place] [address] Dr. Nima Ortiz LYMPH # 1.7 103/ul Normal 1.2-3.8 [facility] Comment on above: Performed By: #### C BC #### [facility] [address] [place] [address] Dr. Nima Ortiz Lymphocytes/100 WBC (Bld) 21.4 % Normal 20.5-60.0 [facility] Comment on above: Performed By: #### C BC #### [facility] [address] [place] [address] Dr. Nima Ortiz MANUAL DIFF REQ NO Normal [facility] Comment on above: Performed By: #### C BC #### [facility] [address] [place] [address] Dr. Nima Ortiz MCH (RBC) [Entitic mass] 28.5 pg Normal 25.9-34.0 [facility] Comment on above: Performed By: #### C BC #### [facility] [address] [place] [address] Dr. Nima Ortiz MCHC (RBC) [Mass/Vol] 32.8 g/dL Normal 29.9-35.2 [facility] Comment on above: Performed By: #### C BC #### [facility] [address] [place] [address] Dr. Nima Ortiz MCV (RBC) [Entitic vol] 87.0 fL Normal 80.0-94.0 [facility] Comment on above: Performed By: #### C BC #### [facility] [address] [place] [address] Dr. Nima Ortiz MONO # 0.6 103/ul Normal 0.3-0.8 [facility] Comment on above: Performed By: #### C BC #### [facility] [address] [place] [address] Dr. Nima Ortiz Monocytes/100 WBC (Bld) 7.2 % Normal 1.7-12.0 [facility] Comment on above: Performed By: #### C BC #### [facility] [address] [place] [address] Dr. Nima Ortiz NEUT # 5.0 103/ul Normal 1.4-6.5 [facility] Comment on above: Performed By: #### C BC #### [facility] [address] [place] [address] Dr. Nima Ortiz Neutrophils/100 WBC (Bld) 61.7 % Normal 43.0-75.0 [facility] Comment on above: Performed By: #### C BC #### [facility] [address] [place] [address] Dr. Nima Ortiz Platelet mean volume (Bld) [Entitic vol] 8.7 fL Critically low 9.5-13.5 [facility] Comment on above: Performed By: #### C BC #### [facility] [address] [place] [address] Dr. Nima Ortiz PLT 189 103/ul Normal 150-450 [facility] Comment on above: Performed By: #### C BC #### [facility] [address] [place] [address] Dr. Nima Ortiz RBC 4.45 106/ul Critically low 4.70-6.10 [facility] Comment on above: Performed By: #### C BC #### [facility] [address] [place] [address] Dr. Nima Ortiz WBC 8.1 103/ul Normal 4.0-11.0 [facility] Comment on above: Performed By: #### C BC #### [facility] [address] [place] [address] NECK ST W [...] JULIO RALPH Date: 2022-10-13 11:19 Normal [facility] Covid-19 PCR (CVDTB)on SARS-CoV-2 (COVID-19) RNA SARAH+probe Ql (Unsp spec) Not detected Normal NOT DETECTED [facility] Comment on above: Result Comment: This test is not yet approved or cleared by the [place] FDA. When there are no FDA-approved or cleared tests available, and other criteria are met, FDA can make tests available under an emergency access mechanism called an Emergency Use Authorization (EUA). The EUA for this test is supported by the Institutional Custodian of Health and Human Service's (HHS's) declaration [...] SARS-CoV-2. Performed By: #### C VDTBH #### [facility] [address] [place] [address] Dr. Nima Ortiz PROTIMEon 10-13-2022 INR Coag (PPP) [Relative time] 0.95 {INR} Normal [facility] Comment on above: Performed By: #### P T, PTT #### [facility] [address] [place] [address] Dr. Nima Ortiz INR GUIDELINES SEE BELOW Normal [facility] Comment on above: Result Comment: WILFREDO RED INR: 2.0 - 3.0 CONDITIONS NOT LISTED BELOW 2.5 - 3.5 FOR PROSTHETIC HEART VALVE REPLACEMENT 2.5 - 3.5 RECURRENT THROMBOSIS Performed By: #### P T, PTT #### [facility] [address] [place] [address] Dr. Nima Ortiz PT Coag (PPP) [Time] 10.3 s Normal 9.0-11.6 [facility] Comment on above: Performed By: #### P T, PTT #### [facility] [address] [place] [address] Dr. Nima Ortiz PTTon 10-13-2022 aPTT Coag (Bld) [Time] 27.5 s Normal 22.3-36.2 [facility] Comment on above: Performed By: #### P T, PTT #### [facility] [address] [place] [address] Dr. Nima Ortiz US FINE NEEDLE ASP EXPon US FINE NEEDLE ASP EXP Begin Addendum #1 COLLECTED DATE/TIME: 09/19/2022 13:57 EST Final Diagnosis Report for [facility], [place] (A/B) RIGHT NECK MASS, ULTRASOUND GUIDED [...] (FNA). 2. Pathology results are pending. Normal [facility] LEUKEMIA/LYMPHOMA PROFILEon 09-21-2022 ANALYSIS AND GATING STRATEGY Comment Normal [facility] Comment on above: Result Comment: 8 co maikol analysis with 7-AAD, CD45/SSC gating Performed at: -Y Performed By: #### F LOWL #### [facility] [address] [place] [address] Dr. Nima Ortiz ASSESSMENT OF LEUKOCYTES Comment Normal [facility] Comment on above: Result Comment: No m onoclonal B cell population is detected. kappa:lambda ratio 1.6 CD4:CD8 ratio 4.2 Enrichment procedure is performed. Performed at: -Y Performed By: #### F LOWL #### [facility] [address] [address] [address] Nima Ortiz COMMENT Comment [facility] Comment on above: Result Comment: Each antibody in this assay was utilized to assess for potential abnormalities of studied cell populations or to characterize identified abnormalities. . This test was developed and its performance characteristics determined by [employer]. It has not been cleared or approved by the [place] Food and Drug Administration. . The FDA has determined that such clearance or approval is not necessary. This test is used for clinical purposes. It should not be regarded as investigational or for research. Performed at: TG Performed By: #### F LOWL #### [facility] [address] [place] [address] Dr. Nima Ortiz FLOW COMMENT Comment Normal [facility] Comment on above: Result Comment: Ther e [...] -Y Performed By: #### F LOWL #### [facility] [address] [place] [address] Dr. Nima Ortiz FLOW INTERPRETATION Comment Normal [facility] Comment on above: Result Comment: No m onoclonal B-cells and no atypical T-cell population detected, see comment Performed at: -Y Performed By: #### F LOWL #### [facility] [address] [place] [address] Dr. Nima Ortiz PHENOTYPE CHART Comment Normal [facility] Comment on above: Result Comment: CD3 Normal CD4 Normal CD5 Normal CD8 Normal CD10 Normal CD19 Normal CD20 Normal CD38 Normal CD45 Normal CD57 Normal KAPPA Normal LAMBDA Normal Performed at: -Y Performed By: #### F LOWL #### [facility] [address] [place] [address] Dr. Nima Ortiz RESULTING PATH NAME Comment Normal [facility] Comment on above: Result Comment: Irma Germain M.D. Ph.D Performed at: -Y Performed By: #### F LOWL #### [facility] [facility] [address] [place] [address] Dr. Nima Ortiz Specimen type Nom (Spec) Comment Normal [facility] Comment on above: Result Comment: Righ t Cervical (*includes neck) mass Performed at: -Y Performed By: #### F LOWL #### [facility] [address] [place] [address] Dr. Nima Ortiz VIABILITY Comment Normal [facility] Comment on above: Result Comment: 42% This [...] -Y Performed By: #### F LOWL #### [facility] [address] [place] [address] Dr. N[address] US ST HEAD_NECKon 09-12-2022 [...] FRANCINE STARR Date: 2022-09-12 07:15 Normal [facility] INSULINon 08-08-2022 Insulin 8.5 uIU/mL Normal 2.6-24.9 [facility] Comment on above: Performed By: #### I NSULIN #### [facility] [address] [place] [address] Dr. Nima Ortiz CBC AUTO DIFFon 08-06-2022 BASO # 0.1 103/ul Normal 0.0-0.1 [facility] Comment on above: Performed By: #### C BC ####[facility] [address] [place] [address]Dr. Nima Ortiz Basophils/100 WBC (Bld) 0.6 % Normal 0.2-2.0 [facility] Comment on above: Performed By: #### C BC ####[facility] [address] [place] [address]DrVon Ortiz EO # 0.8 103/ul Critically high 0.0-0.7 [facility] Comment on above: Performed By: #### C BC ####[facility] [address] [place] [address]DrVon Ortiz Eosinophils/100 WBC (Bld) 7.9 % Critically high 0.9-7.0 [facility] Comment on above: Performed By: #### C BC ####[facility] [address] [place] [address]Dr. Nima Ortiz Erythrocyte distribution width (RBC) [Ratio] 12.7 % Normal 11.0-15.0 [facility] Comment on above: Performed By: #### C BC ####[facility] [address] [place], [place] [address]Dr. Nima Ortiz Hematocrit (Bld) [Volume fraction] 45.2 % Normal 42.0-54.0 [facility] Comment on above: Performed By: #### C BC ####[facility] [address] [place], [place] [address]Dr. Nima Ortiz Hemoglobin (Bld) [Mass/Vol] 15.5 g/dL Normal 14.0-18.0 [facility] Comment on above: Performed By: #### C BC ####[facility] [address] [place], [place] [address]Dr. Nima Ortiz IG # 0.02 10e3/ul Normal 0.00-0.03 [facility] Comment on above: Performed By: #### C BC ####[facility] [address] [place], [place] [address]Dr. Nima Ortiz IG % 0.2 % Normal 0.0-0.5 [facility] Comment on above: Performed By: #### C BC ####[facility] [address] [place], [place] [address]Dr. Nima Ortiz LYMPH # 2.1 103/ul Normal 1.2-3.8 [facility] Comment on above: Performed By: #### C BC ####[facility] [address] [place], [place] [address]Dr. Nima Ortiz Lymphocytes/100 WBC (Bld) 22.0 % Normal 20.5-60.0 [facility] Comment on above: Performed By: #### C BC ####[facility] [address] [place], [place] [address]Dr. Nima Ortiz MANUAL DIFF REQ NO Normal [facility] Comment on above: Performed By: #### C BC ####[facility] [address] [place] [id number]. Nima Ortiz MCH (RBC) [Entitic mass] 29.6 pg Normal 25.9-34.0 [facility] Comment on above: Performed By: #### C BC ####[facility] [address] [place] [id number]. Nima Ortiz MCHC (RBC) [Mass/Vol] 34.3 g/dL Normal 29.9-35.2 [facility] Comment on above: Performed By: #### C BC ####[facility] [address] [place] [id number]. Nima Angel MCV (RBC) [Entitic vol] 86.4 fL Normal 80.0-94.0 [facility] Comment on above: Performed By: #### C BC ####[facility] [address] [place], [place] [address]Dr. Nima Ortiz MONO # 0.6 103/ul Normal 0.3-0.8 [facility] Comment on above: Performed By: #### C BC ####[facility] [address] [place] [address]Dr. Damarisphilipp Ortiz Monocytes/100 WBC (Bld) 6.7 % Normal 1.7-12.0 [facility] Comment on above: Performed By: #### C BC ####[facility] [address] [place], [place] [address]Dr. Nima Ortiz NEUT # 5.9 103/ul Normal 1.4-6.5 [facility] Comment on above: Performed By: #### C BC ####[facility] [address] [place], [place] [address]Dr. Nima Ortiz Neutrophils/100 WBC (Bld) 62.6 % Normal 43.0-75.0 [facility] Comment on above: Performed By: #### C BC ####[facility] [address] [place], [place] [address]Dr. Nima Ortiz Platelet mean volume (Bld) [Entitic vol] 8.8 fL Critically low 9.5-13.5 [facility] Comment on above: Performed By: #### C BC ####[facility] [address] [place] [id number]. Nima Ortiz PLT 189 103/ul Normal 150-450 [facility] Comment on above: Performed By: #### C BC ####[facility] [address] [place], [place] [address]Bs. Nima Ortiz RBC 5.23 106/ul Normal 4.70-6.10 [facility] Comment on above: Performed By: #### C BC ####[facility] [address] [place] [id number]. Nima Ortiz WBC 9.5 103/ul Normal 4.0-11.0 [facility] Comment on above: Performed By: #### C BC ####[facility] [address] [place] [id number]. Nima Ortiz FREE THYROXINE INDEX T7on FTI 2.75 Normal 1.30-4.50 [facility] Comment on above: Performed By: #### U WILDER, CMP, LIPID, T7, TSH ####[facility] [address] [place] [id number]. Nima Ortiz T3U 34.0 % Normal 33.0-40.0 [facility] Comment on above: Performed By: #### U WILDER, CMP, LIPID, T7, TSH ####[facility] [address] [place] [id number]. Nima Ortiz T4 [Mass/Vol] 8.10 ug/dL Normal 4.50-12.10 [facility] Comment on above: Performed By: #### U WILDER, CMP, LIPID, T7, TSH ####[facility] [address] [place] [id number]. Nima Ortiz GLYCOHEMOGLOBIN A1Con 2021 ADA RECOMMENDATION SEE BELOW Normal [facility] Comment on above: Result Comment: ADA RECOMMENDED LIMIT 4.0 - 6.0 ADA THERAPEUTIC TARGET < 7.0 ACTION SUGGESTED > 7.0 Performed By: #### A 1C ####[facility] [address] [place] [address]JrVon Ortiz Glucose [Mass/Vol] 100 mg/dL Normal [facility] Comment on above: Performed By: #### A 1C ####[facility] [address] [place] [address]DrVon Ortiz HbA1c (Bld) [Mass fraction] 5.1 % Normal 4.5-6.2 [facility] Comment on above: Performed By: #### A 1C ####[facility] [address] [place] [address]DrVon Ortiz IRONon 08-06-2022 Iron [Mass/Vol] 79.0 ug/dL Normal 65.0-175.0 [facility] Comment on above: Performed By: #### I DIAMANTE #### [facility] [address] [place] [address] [address] Nima Ortiz LIPID PROFILEon 08-06-2022 CHOL-HDL RATIO NORM SEE BELOW Normal [facility] Comment on above: Result Comment: 3.3 - 4.4 LOW RISK 4.4 - 7.1 AVERAGE RISK 7.1 - 11.0 MODERATE RISK >11.0 HIGH RISK Performed By: #### U WILDER, CMP, LIPID, T7, TSH ####[facility] [address] [place] [address]Dr. Nima Ortiz Cholesterol [Mass/Vol] 164 mg/dL Normal <=200 [facility] Comment on above: Performed By: #### U WILDER, CMP, LIPID, T7, TSH ####[facility] [address] [place] [phone] Ortiz Cholesterol in HDL [Mass/Vol] 49 mg/dL Normal 40-60 [facility] Comment on above: Performed By: #### U WILDER, CMP, LIPID, T7, TSH ####[facility] [address] [place] [phone] Ortiz Cholesterol in LDL [Mass/Vol] 106.0 mg/dL Normal [facility] Comment on above: Performed By: #### U WILDER, CMP, LIPID, T7, TSH ####[facility] [address] [place] [phone]. Nima Ortiz Cholesterol.total/C holesterol in HDL [Mass ratio] 3.3 {ratio} Normal [facility] Comment on above: Performed By: #### U WILDER, CMP, LIPID, T7, TSH ####[facility] [address] [place] [address]Dr. Nima Ortiz HDL NORMAL > or = 60 mg/dl - LO W CARDIOVASCULAR RISK <40 mg/dl - HIGH CARDIOVASCULAR RISK Normal [facility] Comment on above: Performed By: #### U WILDER, CMP, LIPID, T7, TSH ####[facility] [address] [place] [address]Dr. Nima Ortiz LDL CALC NORMAL SEE BELOW Normal [facility] Comment on above: Result Comment: <100 mg/dl OPTIMAL 100 - 129 mg/dl NEAR OR ABOVE OPTIMAL 130 - 159 mg/dl BORDERLINE HIGH 160 - 189 mg/dl HIGH >190 mg/dl VERY HIGH Performed By: #### U WILDER, CMP, LIPID, T7, TSH ####[facility] [address] [place] [address]Dr. Nima Ortiz Triglyceride [Mass/Vol] 45 mg/dL Normal <=150 [facility] Comment on above: Performed By: #### U WILDER, CMP, LIPID, T7, TSH ####[facility] [address] [place] [address]Dr. Nima Ortiz VLDL CALC 9.0 mg/dL Normal [facility] Comment on above: Performed By: #### U WILDER, CMP, LIPID, T7, TSH ####[facility] [address] [place] [address]Dr. Nima Ortiz PROF 14(COMP METB)on 022 Albumin [Mass/Vol] 4.0 g/dL Normal 3.4-5.0 [facility] Comment on above: Performed By: #### U WILDER, CMP, LIPID, T7, TSH ####[facility] [address] [place] [address]Dr. Nima Ortiz Albumin/Globulin [Mass ratio] 1.1 {ratio} Normal [facility] Comment on above: Performed By: #### U WILDER, CMP, LIPID, T7, TSH ####[facility] [address] [place] [address]Dr. Nima Ortiz ALP [Catalytic activity/Vol] 85 U/L Normal 46-116 [facility] Comment on above: Performed By: #### U WILDER, CMP, LIPID, T7, TSH ####[facility] [address] [place] [address]Dr. Nima Ortiz ALT [Catalytic activity/Vol] 26 U/L Normal 16-63 [facility] Comment on above: Performed By: #### U WILDER, CMP, LIPID, T7, TSH ####[facility] [address] [place] [address]Dr. Nima Ortiz Anion gap [Moles/Vol] 10.8 mmol/L Normal [facility] Comment on above: Performed By: #### U WILDER, CMP, LIPID, T7, TSH ####[facility] [address] [place], [place] [address]Dr. Nima Ortiz AST [Catalytic activity/Vol] 10 U/L Critically low 15-37 [facility] Comment on above: Performed By: #### U WILDER, CMP, LIPID, T7, TSH ####[facility] [address] [place], [place] [address]Dr. Nima Ortiz Bilirubin [Mass/Vol] 0.5 mg/dL Normal 0.2-1.0 [facility] Comment on above: Performed By: #### U WILDER, CMP, LIPID, T7, TSH ####[facility] [address] [place], [place] [address]Dr. Nima Ortiz Calcium [Mass/Vol] 9.3 mg/dL Normal 8.5-10.1 [facility] Comment on above: Performed By: #### U WILDER, CMP, LIPID, T7, TSH ####[facility] [address] [place], [place] [address]Dr. Nima Ortiz Chloride [Moles/Vol] 101 mmol/L Normal 98-107 [facility] Comment on above: Performed By: #### U WILDER, CMP, LIPID, T7, TSH ####[facility] [address] [place] [address]Dr. Nima Ortiz CO2 [Moles/Vol] 30.4 mmol/L Normal 21.0-32.0 [facility] Comment on above: Performed By: #### U WILDER, CMP, LIPID, T7, TSH ####[facility] [address] [place] [address]Dr. Nima Ortiz Creatinine [Mass/Vol] 1.15 mg/dL Normal 0.70-1.30 [facility] Comment on above: Performed By: #### U WILDER, CMP, LIPID, T7, TSH ####[facility] [address] [place] [address]Dr. Nima Ortiz EGFR-AF FIJIAN >60 Normal >=60 [facility] Comment on above: Performed By: #### U WILDER, CMP, LIPID, T7, TSH ####[facility] [address] [place], [place] [address]Dr. Nima Angel EGFR-NON AF FIJIAN >60 Normal >=60 [facility] Comment on above: Performed By: #### U WILDER, CMP, LIPID, T7, TSH ####[facility] [address] [place], [place] [address]Dr. Nima Ortiz Globulin (S) [Mass/Vol] 3.8 g/dL Normal [facility] Comment on above: Performed By: #### U WILDER, CMP, LIPID, T7, TSH ####[facility] [address] [place] [address]Dr. Nima Ortiz Glucose [Mass/Vol] 109 mg/dL Critically high 74-106 [facility] Comment on above: Performed By: #### U WILDER, CMP, LIPID, T7, TSH ####[facility] [address] [place] [address]Dr. Nima Ortiz Potassium [Moles/Vol] 4.2 mmol/L Normal 3.5-5.1 [facility] Comment on above: Performed By: #### U WILDER, CMP, LIPID, T7, TSH ####[facility] [address] [place] [address]Dr. Nima Ortiz Protein [Mass/Vol] 7.8 g/dL Normal 6.4-8.2 [facility] Comment on above: Performed By: #### U WILDER, CMP, LIPID, T7, TSH ####[facility] [address] [place] [address]Dr. Nima Ortiz Sodium [Moles/Vol] 138 mmol/L Normal 136-145 [facility] Comment on above: Performed By: #### U WILDER, CMP, LIPID, T7, TSH ####[facility] [address] [place] [id number]. Nima Ortiz Urea nitrogen [Mass/Vol] 17.0 mg/dL Normal 7.0-18.0 [facility] Comment on above: Performed By: #### U WILDER, CMP, LIPID, T7, TSH ####[facility] [address] [place] [address]Dr. Nima Ortiz Urea nitrogen/Creatinine [Mass ratio] 14.8 mg/mg Normal [facility] Comment on above: Performed By: #### U WILDER, CMP, LIPID, T7, TSH ####[facility] [address] [place] [id number]. Nima Ortiz TSHon 08-06-2022 TSH 1.748 uIU/mL Normal 0.358-3.740 [facility] Comment on above: Performed By: #### U WILDER, CMP, LIPID, T7, TSH ####[facility] [address] [place] [address]Dr. Nima Ortiz URIC ACID SERUMon 08-06-2022 Urate [Mass/Vol] 5.1 mg/dL Normal 3.5-7.2 [facility] Comment on above: Performed By: #### U WILDER, CMP, LIPID, T7, TSH ####[facility] [address] [place] [address]Dr. Nima Ortiz PSA, FREE AND TOTAL RATIOon 04-21-2022 % Free PSA 16.6 % Normal [facility] Comment on above: Result Comment: The table [...] men. Performed By: #### P SAFREE #### [facility] [address] [place], [place] [address] Dr. Nima Ortiz Prostate specific Ag [Mass/Vol] 3.8 ng/mL Normal 0.0-4.0 [facility] Comment on above: Result Comment: Gay VILLELA methodology. . According to the [employer], Serum PSA should decrease and [...] disease. Performed By: #### P SAFREE #### [facility] [address] [place] [id number] [address] Nima Ortiz PSA, Free 0.63 ng/mL Normal N/A [facility] Comment on above: Result Comment: Gay mcmanus ECLSIMRAN methodology. Performed By: #### P SAFREE #### [facility] [address] [place], [place] [address] Dr. Nima Ortiz Vital Signs Date Time Vital Sign Value Performing Clinician Facility 06-05-2025 11:22-0400 Body mass index (BMI) [Ratio] 27.93 kg/m2 Tayla Ellsworth MD Work Phone: [facility] [place] 06-05-2025 11:22-040 Body temperature 98.1 [degF] Tayla Ellsworth MD Work Phone: [facility] [place] 06-05-2025 11:22-0400 Body weight 89.6 kg Tayla Ellsworth MD Work Phone: [facility] 06-05-2025 11:22-0400 Diastolic blood pressure 71 mm[Hg] Tayla Ellsworth MD Work Phone: [facility] [place] 06-05-2025 11:22-0400 Heart rate 62 /min Tayla Ellsworth MD Work Phone: [facility] [place] 06-05-2025 11:22-0400 Respiratory rate 20 /min Tayla Ellsworth MD Work Phone: [facility] [place] 06-05-2025 11:22-0400 SaO2% (BldA) [Mass fraction] 100 % Tayla Ellsworth MD Work Phone: [facility] [place] 06-05-2025 11:22-0400 Systolic blood pressure 129 mm[Hg] Tayla Ellsworth MD Work Phone: [facility] [place] 05-29-2025 08:47-0400 Body height 179.1 cm Lakia Medina MD Work Phone: [facility] [place] 05-29-2025 08:47-0400 Body mass index (BMI) [Ratio] 27.9 kg/m2 Lakia Medina MD Work Phone: [facility] [place] 05-29-2025 08:47-0400 Body temperature 97.11 [degF] Lakia Medina MD Work Phone: [facility] [place] 05-29-2025 08:47-0400 Body weight 89.5 kg Lakia Medina MD Work Phone: [facility] [place] 05-29-2025 08:47-0400 Diastolic blood pressure 78 mm[Hg] Lakia Medina MD Work Phone: [facility] [place] 05-29-2025 08:47-0400 Heart rate 68 /min Lakia Medina MD Work Phone: [facility] [place] 05-29-2025 08:47-0400 Respiratory rate 16 /min Lakia Medina MD Work Phone: [facility] [place] 05-29-2025 08:47-0400 SaO2% (BldA) [Mass fraction] 99 % Lakia Medina MD Work Phone: [facility] [place] 05-29-2025 08:47-0400 Systolic blood pressure 128 mm[Hg] Lakia Medina MD Work Phone: [facility] [place] 05-02-2025 13:01-0400 Body height 180.3 cm Enoch Forbes MD Work Phone: [facility] 05-02-2025 13:01-0400 Body mass index (BMI) [Ratio] 27.89 kg/m2 Enoch Forbes MD Work Phone: [facility] 05-02-2025 13:01-0400 Body weight 90.72 kg Enoch Forbes MD Work Phone: [facility] 05-02-2025 13:01-0400 Diastolic blood pressure 73 mm[Hg] Enoch Forbes MD Work Phone: [facility] 05-02-2025 13:01-0400 Heart rate 65 /min Enoch Forbes MD Work Phone: [facility] 05-02-2025 13:01-0400 Systolic blood pressure 130 mm[Hg] Enoch Forbes MD Work Phone: [facility] 04-18-2025 13:06-0400 Body temperature 98.71 [degF] Chair [place] Work Phone: [facility] [place] 04-18-2025 13:06-0400 Diastolic blood pressure 71 mm[Hg] Chair [place] Work Phone: [facility] [place] 04-18-2025 13:06-0400 Heart rate 77 /min Chair [place] Work Phone: [facility] [place] 04-18-2025 13:06-0400 Respiratory rate 16 /min Chair [place] Work Phone: [facility] [place] 04-18-2025 13:06-0400 SaO2% (BldA) [Mass fraction] 98 % Chair [place] Work Phone: [facility] [place] 04-18-2025 13:06-0400 Systolic blood pressure 117 mm[Hg] Chair Harvey Work Phone: [facility] [place] 03-07-2025 13:46-0400 Body mass index (BMI) [Ratio] 28 kg/m2 Lakia Medina MD Work Phone: [facility] [place] 03-07-2025 13:46-0400 Body temperature 97.2 [degF] Lakia Medina MD Work Phone: [facility] [place] 03-07-2025 13:46-0400 Body weight 89.8 kg Lakia Medina MD Work Phone: [facility] [place] 03-07-2025 13:46-0400 Diastolic blood pressure 79 mm[Hg] Lakia Medina MD Work Phone: [facility] [place] 03-07-2025 13:46-0400 Heart rate 79 /min Lakia Medina MD Work Phone: [facility] [place] 03-07-2025 13:46-0400 Respiratory rate 16 /min Lakia Medina MD Work Phone: [facility] [place] 03-07-2025 13:46-0400 SaO2% (BldA) [Mass fraction] 97 % Lakia Medina MD Work Phone: [facility] [place] 03-07-2025 13:46-0400 Systolic blood pressure 124 mm[Hg] Lakia Medina MD Work Phone: [facility] [place] 02-20-2025 10:13-0400 Body mass index (BMI) [Ratio] 27.9 kg/m2 Tayla Ellsworth MD Work Phone: [facility] [place] 02-20-2025 10:13-0400 Body temperature 97.7 [degF] Tayla Ellsworth MD Work Phone: [facility] [place] 02-20-2025 10:13-0400 Body weight 89.5 kg Tayla Ellsworth MD Work Phone: [facility] [place] 02-20-2025 10:13-0400 Diastolic blood pressure 71 mm[Hg] Tayla Ellsworth MD Work Phone: [facility] [place] 02-20-2025 10:13-0400 Heart rate 84 /min Talya Ellsworth MD Work Phone: [facility] [place] 02-20-2025 10:13-0400 Respiratory rate 20 /min Tayla Ellsworth MD Work Phone: [facility] [place] 02-20-2025 10:13-0400 SaO2% (BldA) [Mass fraction] 100 % Tayla Ellsworth MD Work Phone: [facility] [place] 02-20-2025 10:13-0400 Systolic blood pressure 126 mm[Hg] Tayla Ellsworth MD Work Phone: [facility] [place] 01-31-2025 13:08-0400 Body height 180.3 cm Enoch Forbes MD Work Phone: [facility] 01-31-2025 13:08-0400 Body mass index (BMI) [Ratio] 27.75 kg/m2 Enoch Forbes MD Work Phone: [facility] 01-31-2025 13:08-0400 Body weight 90.27 kg Enoch Forbes MD Work Phone: [facility] 01-31-2025 13:08-0400 Diastolic blood pressure 80 mm[Hg] Enoch Forbes MD Work Phone: [facility] 01-31-2025 13:08-0400 Heart rate 73 /min Enoch Forbes MD Work Phone: [facility] 01-31-2025 13:08-0400 Systolic blood pressure 129 mm[Hg] Enoch Forbes MD Work Phone: [facility] 01-24-2025 13:16-0400 Body temperature 97.3 [degF] Chair Harvey Work Phone: [place] [address]-18-2025 13:16-0400 Diastolic blood pressure 61 mm[Hg] Chair [place] Work Phone: [facility] [place] 01-24-2025 13:16-0400 Heart rate 75 /min Chair [place] Work Phone: [facility] [place] 01-24-2025 13:16-0400 Respiratory rate 16 /min Chair Servando Work Phone: [facility] [place] 01-24-2025 13:16-0400 SaO2% (BldA) [Mass fraction] 96 % Chair Servando Work Phone: [facility] [place] 01-24-2025 13:16-0400 Systolic blood pressure 100 mm[Hg] Chair [place] Work Phone: [facility] [place] 01-10-2025 11:20-0400 Body mass index (BMI) [Ratio] 29.15 kg/m2 Chuck Jones MD Work Phone: [facility] [place] 01-10-2025 11:20-0400 Body weight 93.5 kg Chuck Jones MD Work Phone: [facility] [facility] [place] 01-10-2025 11:20-0400 Diastolic blood pressure 56 mm[Hg] Chuck Jones MD Work Phone: [facility] [place] Comment on above: manual, checked with dinemap : 01-10-2025 11:20-0400 Heart rate 89 /min Chuck Jones MD Work Phone: [facility] [place] 01-10-2025 11:20-0400 Systolic blood pressure 98 mm[Hg] Chuck Jones MD Work Phone: [facility] [place] Comment on above: manual, checked with dinemap : 97/57 12-13-2024 13:26-0500 Diastolic blood pressure 81 mm[Hg] Lakia Medina MD Work Phone: [facility] [place] 12-13-2024 13:26-0500 Systolic blood pressure 127 mm[Hg] Lakia Medina MD Work Phone: [facility] [place] 12-13-2024 13:25-0500 Body mass index (BMI) [Ratio] 30.77 kg/m2 Lakia Medina MD Work Phone: [facility] [place] 12-13-2024 13:25-0500 Body temperature 97 [degF] Lakia Medina MD Work Phone: [facility] [place] 12-13-2024 13:25-0500 Body weight 98.7 kg Lakia Medina MD Work Phone: [facility] [place] 12-13-2024 13:25-0500 Heart rate 66 /min Lakia Medina MD Work Phone: [facility] [place] 12-13-2024 13:25-0500 Respiratory rate 16 /min Lakia Medina MD Work Phone: [facility] [place] 12-13-2024 13:25-0500 SaO2% (BldA) [Mass fraction] 97 % Lakia Medina MD Work Phone: [facility] [place] 11-01-2024 13:04-0500 Body height 179.1 cm Vicky Maguire KIER OPERATOR.FINE ARTS CHAIR Work Phone: [facility] [place] Comment on above: verified with 2 caregivers. 11-01-2024 13:04-0500 Body mass index (BMI) [Ratio] 29.27 kg/m2 Vicky Maguire KIER OPERATOR.FINE ARTS CHAIR Work Phone: [facility] [place] 11-01-2024 13:04-0500 Body temperature 97.81 [degF] Vicky Maria Guadalupe KIER OPERATOR.FINE ARTS CHAIR Work Phone: [facility] [place] 11-01-2024 13:04-0500 Body weight 93.9 kg Vicky Maguire KIER OPERATOR.FINE ARTS CHAIR Work Phone: [facility] [place] 11-01-2024 13:04-0500 Diastolic blood pressure 70 mm[Hg] Vicky Maguire KIER OPERATOR.FINE ARTS CHAIR Work Phone: [facility] [place] 11-01-2024 13:04-0500 Heart rate 59 /min Vicky Maria Guadalupe KIER OPERATOR.FINE ARTS CHAIR Work Phone: [facility] [place] 11-01-2024 13:04-0500 Respiratory rate 16 /min Vicky Maria Guadalupe KIER OPERATOR.FINE ARTS CHAIR Work Phone: [facility] [place] 11-01-2024 13:04-0500 SaO2% (BldA) [Mass fraction] 99 % Vicky Maria Guadalupe KIER OPERATOR.FINE ARTS CHAIR Work Phone: [facility] [place] 11-01-2024 13:04-0500 Systolic blood pressure 113 mm[Hg] Vicky Maria Guadalupe KIER OPERATOR.FINE ARTS CHAIR Work Phone: [facility] [place] 11-01-2024 09:30-0500 Body height 180.3 cm Enoch Forbes MD Work Phone: [facility] 11-01-2024 09:30-0500 Body mass index (BMI) [Ratio] 29.01 kg/m2 Enoch Forbes MD Work Phone: [facility] 11-01-2024 09:30-0500 Body weight 94.35 kg Encoh Forbes MD Work Phone: [facility] 11-01-2024 09:30-0500 Diastolic blood pressure 79 mm[Hg] Enoch Forbes MD Work Phone: [facility] 11-01-2024 09:30-0500 Heart rate 64 /min Enoch Forbes MD Work Phone: [facility] 11-01-2024 09:30-0500 Systolic blood pressure 127 mm[Hg] Enoch Forbes MD Work Phone: [facility] 10-31-2024 11:13-0500 Body mass index (BMI) [Ratio] 29.96 kg/m2 Tayla Ellsworth MD Work Phone: [facility] [place] 10-31-2024 11:13-0500 Body temperature 97.9 [degF] Tayla Ellsworth MD Work Phone: [facility] [place] 10-31-2024 11:13-0500 Body weight 94.7 kg Tayla Ellsworth MD Work Phone: [facility] [place] 10-31-2024 11:13-0500 Diastolic blood pressure 70 mm[Hg] Tayla Ellsworth MD Work Phone: [facility] [place] 10-31-2024 11:13-0500 Heart rate 73 /min Tayla Ellsworth MD Work Phone: [facility] [place] 10-31-2024 11:13-0500 Respiratory rate 18 /min Tayla Ellsworth MD Work Phone: [facility] [place] 10-31-2024 11:13-0500 SaO2% (BldA) [Mass fraction] 96 % Tayla Ellsworth MD Work Phone: [facility] [place] 10-31-2024 11:13-0500 Systolic blood pressure 125 mm[Hg] Tayla Ellsworth MD Work Phone: [facility] [place] 09-20-2024 12:58-0500 Body height 182.9 cm Enoch Forbes MD Work Phone: [facility] 09-20-2024 12:58-0500 Body mass index (BMI) [Ratio] 28.21 kg/m2 Enoch Forbes MD Work Phone: [facility] 09-20-2024 12:58-0500 Body weight 94.35 kg Enoch Forbes MD Work Phone: [facility] 09-20-2024 12:58-0500 Diastolic blood pressure 76 mm[Hg] Enoch Forbes MD Work Phone: [facility] 09-20-2024 12:58-0500 Systolic blood pressure 146 mm[Hg] Enoch Forbes MD Work Phone: [facility] 09-13-2024 13:30-0500 Body temperature 97.5 [degF] Chair Harvey Work Phone: [facility] [place] 09-13-2024 13:30-0500 Diastolic blood pressure 74 mm[Hg] Chair [place] Work Phone: [facility] [place] 09-13-2024 13:30-0500 Heart rate 58 /min Chair [place] Work Phone: [facility] [place] 09-13-2024 13:30-0500 Respiratory rate 16 /min Chair Servando Work Phone: [facility] [place] 09-13-2024 13:30-0500 Systolic blood pressure 134 mm[Hg] Chair [place] Work Phone: [facility] [place] 09-13-2024 12:56-0500 Body height 177.8 cm Whitney Hallman APRN.FINE ARTS CHAIR Work Phone: [facility] [place] 09-13-2024 12:56-0500 Body mass index (BMI) [Ratio] 30.05 kg/m2 Whitney Hallman APRN.FINE ARTS CHAIR Work Phone: [facility] [place] 09-13-2024 12:56-0500 Body temperature 97.3 [degF] Whitney Hallman APRN.FINE ARTS CHAIR Work Phone: [facility] [place] 09-13-2024 12:56-0500 Body weight 95 kg Whitney Hallman APRN.FINE ARTS CHAIR Work Phone: [facility] [place] 09-13-2024 12:56-0500 Diastolic blood pressure 75 mm[Hg] Whitney Hallman APRN.FINE ARTS CHAIR Work Phone: [facility] [place] 09-13-2024 12:56-0500 Heart rate 66 /min Whitney Hallman APRN.FINE ARTS CHAIR Work Phone: [facility] [place] 09-13-2024 12:56-0500 Respiratory rate 16 /min Whitney Hallman APRN.FINE ARTS CHAIR Work Phone: [facility] [place] 09-13-2024 12:56-0500 SaO2% (BldA) [Mass fraction] 99 % Whitney Hallman APRN.FINE ARTS CHAIR Work Phone: [facility] [place] 09-13-2024 12:56-0500 Systolic blood pressure 123 mm[Hg] Whitney Hallman APRN.CNP Work Phone: [facility] [place] 08-20-2024 13:06-0500 Body height 180.3 cm Enoch Forbes MD Work Phone: [facility] 08-20-2024 13:06-0500 Body mass index (BMI) [Ratio] 29.15 kg/m2 Enoch Forbes MD Work Phone: [facility] 08-20-2024 13:06-0500 Body weight 94.8 kg Enoch Forbes MD Work Phone: [facility] 08-20-2024 13:06-0500 Diastolic blood pressure 68 mm[Hg] Enoch Forbes MD Work Phone: [facility] 08-20-2024 13:06-0500 Systolic blood pressure 118 mm[Hg] Enoch Forbes MD Work Phone: [facility] 08-09-2024 14:25-0400 Body height 177.8 cm Chuck Jones MD Work Phone: [facility] [place] 08-09-2024 14:25-0400 Body mass index (BMI) [Ratio] 30.11 kg/m2 Chuck Jones MD Work Phone: [facility] [place] 08-09-2024 14:25-0400 Body weight 95.2 kg Chuck Jones MD Work Phone: [facility] [place] 08-09-2024 14:25-0400 Diastolic blood pressure 71 mm[Hg] Chuck Jones MD Work Phone: [facility] [place] 08-09-2024 14:25-0400 Heart rate 56 /min Chuck Jones MD Work Phone: [facility] [place] 08-09-2024 14:25-0400 SaO2% (BldA) [Mass fraction] 98 % Chuck Jones MD Work Phone: [facility] [place] 08-09-2024 14:25-0400 Systolic blood pressure 125 mm[Hg] Chuck Jones MD Work Phone: [facility] [place] 08-02-2024 12:45-0400 Body height 180.3 cm Lakia Medina MD Work Phone: [facility] [place] 08-02-2024 12:45-0400 Body mass index (BMI) [Ratio] 29.13 kg/m2 Lakia Medina MD Work Phone: [facility] [place] 08-02-2024 12:45-0400 Body temperature 97.7 [degF] Lakia Medina MD Work Phone: [facility] [place] 08-02-2024 12:45-0400 Body weight 94.7 kg Lakia Medina MD Work Phone: [facility] [place] 08-02-2024 12:45-0400 Diastolic blood pressure 88 mm[Hg] Lakia Medina MD Work Phone: [facility] [place] 08-02-2024 12:45-0400 Heart rate 66 /min Lakia Medina MD Work Phone: [facility] [place] 08-02-2024 12:45-0400 Respiratory rate 16 /min Lakia Medina MD Work Phone: [facility] [place] 08-02-2024 12:45-0400 SaO2% (BldA) [Mass fraction] 99 % Lakia Medina MD Work Phone: [facility] [place] 08-02-2024 12:45-0400 Systolic blood pressure 136 mm[Hg] Lakia Medina MD Work Phone: [facility] [place] 07-12-2024 13:19-0400 Body height 180.3 cm Enoch Forbes MD Work Phone: [facility] 07-12-2024 13:19-0400 Body mass index (BMI) [Ratio] 29.57 kg/m2 Enoch Forbes MD Work Phone: [facility] 07-12-2024 13:19-0400 Body weight 96.16 kg Enoch Forbes MD Work Phone: [facility] 07-12-2024 13:19-0400 Diastolic blood pressure 88 mm[Hg] Enoch Forbes MD Work Phone: [facility] 07-12-2024 13:19-0400 Systolic blood pressure 138 mm[Hg] Enoch Forbes MD Work Phone: [facility] 07-05-2024 14:25-0400 Body mass index (BMI) [Ratio] 29 kg/m2 Tayla Ellsworth MD Work Phone: [facility] [place] 07-05-2024 14:25-040 Body temperature 97.59 [degF] Tayla Ellsworth MD Work Phone: [facility] [place] 07-05-2024 14:25-0400 Body weight 94.26 kg Tayla Ellsworth MD Work Phone: [facility] [place] Comment on above: shoes on 07-05-2024 14:25-0400 Diastolic blood pressure 73 mm[Hg] Tayla Ellsworth MD Work Phone: [facility] [place] 07-05-2024 14:25-0400 Heart rate 58 /min Tayla Ellsworth MD Work Phone: [facility] [place] 07-05-2024 14:25-0400 Respiratory rate 16 /min Tayla Ellsworth MD Work Phone: [facility] [place] 07-05-2024 14:25-0400 SaO2% (BldA) [Mass fraction] 100 % Tayla Ellsworth MD Work Phone: [facility] [place] Comment on above: RA 07-05-2024 14:25-0400 Systolic blood pressure 134 mm[Hg] Tayla Ellsworth MD Work Phone: [facility] [place] 06-28-2024 15:03-0400 Blood Pressure Location Norma Craig [facility] 06-28-2024 15:03-0400 Diastolic blood pressure 96 mm[Hg] Norma Lue [facility] 06-28-2024 15:03-0400 Heart rate 64 /min Norma Lue [facility] 06-28-2024 15:03-0400 Respiratory rate 16 /min Norma Lue [facility] 06-28-2024 15:03-0400 Systolic blood pressure 138 mm[Hg] Norma Lue [facility] 06-28-2024 09:11-0400 Body mass index (BMI) [Ratio] 28.97 kg/m2 Nurse Main Work Phone: [facility] [place] 06-28-2024 09:11-0400 Body temperature 97.5 [degF] Nurse Main Work Phone: [facility] [place] 06-28-2024 09:11-0400 Body weight 94.17 kg Nurse Main Work Phone: [facility] [place] Comment on above: Shoes on 06-28-2024 09:11-0400 Diastolic blood pressure 83 mm[Hg] Nurse Main Work Phone: [facility] [place] 06-28-2024 09:11-0400 Heart rate 53 /min Nurse Main Work Phone: [facility] [place] 06-28-2024 09:11-0400 Respiratory rate 18 /min Nurse Main Work Phone: [facility] [place] 06-28-2024 09:11-0400 SaO2% (BldA) [Mass fraction] 99 % Nurse Main Work Phone: [facility] [place] Comment on above: RA 06-28-2024 09:11-0400 Systolic blood pressure 144 mm[Hg] Nurse Main Work Phone: [facility] [place] 06-20-2024 13:36-0400 Body height 180.3 cm Lakia Medina MD Work Phone: [facility] [place] 06-20-2024 13:36-0400 Body mass index (BMI) [Ratio] 29.47 kg/m2 Lakia Medina MD Work Phone: [facility] [place] 06-20-2024 13:36-0400 Body temperature 97.7 [degF] Lakia Medina MD Work Phone: [facility] [place] 06-20-2024 13:36-0400 Body weight 95.8 kg Lakia Medina MD Work Phone: [facility] [place] 06-20-2024 13:36-0400 Diastolic blood pressure 87 mm[Hg] Lakia Medina MD Work Phone: [facility] [place] 06-20-2024 13:36-0400 Heart rate 64 /min Lakia Medina MD Work Phone: [facility] [place] 06-20-2024 13:36-0400 Respiratory rate 16 /min Lakia Medina MD Work Phone: [facility] [place] 06-20-2024 13:36-0400 SaO2% (BldA) [Mass fraction] 99 % Lakia Medina MD Work Phone: [facility] [place] 06-20-2024 13:36-0400 Systolic blood pressure 144 mm[Hg] Lakia Medina MD Work Phone: [facility] [place] 06-11-2024 14:11-0400 Body mass index (BMI) [Ratio] 29.01 kg/m2 Tayla Ellsworth MD Work Phone: [facility] [place] 06-11-2024 14:11-0400 Body temperature 98.01 [degF] Tayla Ellsworth MD Work Phone: [facility] [place] 06-11-2024 14:11-0400 Body weight 94.35 kg Tayla Ellsworth MD Work Phone: [facility] [place] 06-11-2024 14:11-0400 Diastolic blood pressure 81 mm[Hg] Tayla Ellsworth MD Work Phone: [facility] [place] 06-11-2024 14:11-0400 Heart rate 68 /min Tayla Ellsworth MD Work Phone: [facility] [place] 06-11-2024 14:11-0400 Respiratory rate 18 /min Tayla Ellsworth MD Work Phone: [facility] [place] 06-11-2024 14:11-0400 SaO2% (BldA) [Mass fraction] 100 % Tayla Ellsworth MD Work Phone: [facility] [place] 06-11-2024 14:11-0400 Systolic blood pressure 124 mm[Hg] Tayla Ellsworth MD Work Phone: [facility] [place] 05-14-2024 14:28-0400 Body height 180.3 cm [facility] 05-14-2024 14:28-0400 Body mass index (BMI) [Ratio] 29.01 kg/m2 [facility] 05-14-2024 14:28-0400 Body weight 94.35 kg [facility] 05-10-2024 09:43-0400 Body height 177.8 cm Chuck Jones MD Work Phone: [facility] [place] 05-10-2024 09:43-0400 Body mass index (BMI) [Ratio] 30.4 kg/m2 Chuck Jones MD Work Phone: [facility] [place] 05-10-2024 09:43-0400 Body weight 96.1 kg Chuck Jones MD Work Phone: [facility] [place] 05-10-2024 09:43-0400 Diastolic blood pressure 77 mm[Hg] Chuck Jones MD Work Phone: [facility] [place] 05-10-2024 09:43-0400 Heart rate 56 /min Chuck Jones MD Work Phone: [facility] [place] 05-10-2024 09:43-0400 SaO2% (BldA) [Mass fraction] 98 % Chuck Jones MD Work Phone: [facility] [place] 05-10-2024 09:43-0400 Systolic blood pressure 137 mm[Hg] Chuck Jones MD Work Phone: [facility] [place] 05-08-2024 13:28-0400 Body height 180 cm Elizabeth Borjas MD Work Phone: [facility] [place] 05-08-2024 13:28-0400 Body mass index (BMI) [Ratio] 29.51 kg/m2 Elizabeth Borjas MD Work Phone: [facility] [place] 05-08-2024 13:28-0400 Body temperature 97.81 [degF] Elizabeth Borjas MD Work Phone: [facility] [place] 05-08-2024 13:28-0400 Body weight 95.6 kg Elizabeth Borjas MD Work Phone: [facility] [place] 05-08-2024 13:28-0400 Diastolic blood pressure 90 mm[Hg] Elizabeth Borjas MD Work Phone: [facility] [place] 05-08-2024 13:28-0400 Heart rate 74 /min Elizabeth Borjas MD Work Phone: [facility] [place] 05-08-2024 13:28-0400 Respiratory rate 18 /min Elizabeth Borjas MD Work Phone: [facility] [place] 05-08-2024 13:28-0400 SaO2% (BldA) [Mass fraction] 100 % Elizabeth Borjas MD Work Phone: [facility] [place] 05-08-2024 13:28-0400 Systolic blood pressure 145 mm[Hg] Elizabeth Borjas MD Work Phone: [facility] [place] 03-26-2024 13:33-0400 Body height 180 cm Tremaine Gomez PA-C Work Phone: [facility] [place] 03-26-2024 13:33-0400 Body mass index (BMI) [Ratio] 29.32 kg/m2 Tremaine Selma PA-C Work Phone: [facility] [place] 03-26-2024 13:33-0400 Body temperature 97.7 [degF] Tremaine Selma PA-C Work Phone: [facility] [place] 03-26-2024 13:33-0400 Body weight 95 kg Tremaine Selma PA-C Work Phone: [facility] [place] 03-26-2024 13:33-0400 Diastolic blood pressure 73 mm[Hg] Tremaine Selma PA-C Work Phone: [facility] [place] 03-26-2024 13:33-0400 Heart rate 87 /min Tremaine Selma PA-C Work Phone: [facility] [place] 03-26-2024 13:33-0400 Respiratory rate 16 /min Tremaine Selma PA-C Work Phone: [facility] [place] 03-26-2024 13:33-0400 SaO2% (BldA) [Mass fraction] 97 % Tremaine Selma PA-C Work Phone: [facility] [place] 03-26-2024 13:33-0400 Systolic blood pressure 123 mm[Hg] Tremaine Selma PA-C Work Phone: [facility] [place] 02-13-2024 09:33-0400 Body mass index (BMI) [Ratio] 28.64 kg/m2 Chair Servando Work Phone: [facility] [place] 02-13-2024 09:33-0400 Body temperature 97.5 [degF] Chair [place] Work Phone: [facility] [place] 02-13-2024 09:33-0400 Body weight 92.8 kg Chair [place] Work Phone: [facility] [place] 02-13-2024 09:33-0400 Diastolic blood pressure 88 mm[Hg] Chair Serv[place] Work Phone: [facility] [place] 02-13-2024 09:33-0400 Heart rate 53 /min Chair [place] Work Phone: [facility] [place] 02-13-2024 09:33-0400 Respiratory rate 18 /min Chair [place] Work Phone: [facility] [place] 02-13-2024 09:33-0400 SaO2% (BldA) [Mass fraction] 100 % Chair [place] Work Phone: [facility] [place] 02-13-2024 09:33-0400 Systolic blood pressure 138 mm[Hg] Chair [place] Work Phone: [facility] [place] 01-02-2024 09:14-0400 Body height 180 cm Whitney Hallman APRN.FINE ARTS CHAIR Work Phone: [facility] [place] 01-02-2024 09:14-0400 Body temperature 97.2 [degF] Whitney Hallman APRN.FINE ARTS CHAIR Work Phone: [facility] [place] 01-02-2024 09:14-0400 Body weight 92.53 kg Whitney Hallman APRN.FINE ARTS CHAIR Work Phone: [facility] [place] 01-02-2024 09:14-0400 Diastolic blood pressure 74 mm[Hg] Whitney Hallman APRN.FINE ARTS CHAIR Work Phone: [facility] [place] 01-02-2024 09:14-0400 Heart rate 70 /min Whitney Hallman APRN.FINE ARTS CHAIR Work Phone: [facility] [place] 01-02-2024 09:14-0400 Respiratory rate 18 /min Whitney Hallman APRN.FINE ARTS CHAIR Work Phone: [facility] [place] 01-02-2024 09:14-0400 SaO2% (BldA) [Mass fraction] 98 % Whitney Hallman APRN.FINE ARTS CHAIR Work Phone: [facility] [place] 01-02-2024 09:14-0400 Systolic blood pressure 136 mm[Hg] Whitney Hallman APRN.FINE ARTS CHAIR Work Phone: [facility] [place] 12-12-2023 09:53-0500 Body height 180 cm Elizabeth Borjas MD Work Phone: [facility] [place] 12-12-2023 09:53-0500 Body temperature 98.1 [degF] Elizabeth Borjas MD Work Phone: [facility] [place] 12-12-2023 09:53-0500 Body weight 94.8 kg Elizabeth Borjas MD Work Phone: [facility] [place] 12-12-2023 09:53-0500 Diastolic blood pressure 77 mm[Hg] Elizabeth Borjas MD Work Phone: [facility] [facility] [place] 12-12-2023 09:53-0500 Heart rate 66 /min Elizabeth Borjas MD Work Phone: [facility] [place] 12-12-2023 09:53-0500 Respiratory rate 16 /min Elizabeth Borjas MD Work Phone: [facility] [place] 12-12-2023 09:53-0500 SaO2% (BldA) [Mass fraction] 99 % Elizabeth Borjas MD Work Phone: [facility] [place] 12-12-2023 09:53-0500 Systolic blood pressure 132 mm[Hg] Elizabeth Borjas MD Work Phone: [facility] [place] 11-17-2023 13:18-0500 Body height 182.9 cm Enoch Forbes MD Work Phone: [facility] 11-17-2023 13:18-0500 Body mass index (BMI) [Ratio] 27.8 kg/m2 Enoch Forbes MD Work Phone: [facility] 11-17-2023 13:18-0500 Body weight 92.99 kg Enoch Forbes MD Work Phone: [facility] 11-17-2023 13:18-0500 Diastolic blood pressure 78 mm[Hg] Enoch Forbes MD Work Phone: [facility] 11-17-2023 13:18-0500 Systolic blood pressure 124 mm[Hg] Enoch Forbes MD Work Phone: [facility] 11-14-2023 09:10-0500 Body height 180 cm Elizabeth Borjas MD Work Phone: [facility] [place] 11-14-2023 09:10-0500 Body temperature 98.29 [degF] Elizabeth Borjas MD Work Phone: [facility] [place] 11-14-2023 09:10-0500 Body weight 91.1 kg Elizabeth Borjas MD Work Phone: [facility] [place] 11-14-2023 09:10-0500 Diastolic blood pressure 76 mm[Hg] Elizabeth Borjas MD Work Phone: [facility] [place] 11-14-2023 09:10-0500 Heart rate 66 /min Elizabeth Borjas MD Work Phone: [facility] [place] 11-14-2023 09:10-0500 Respiratory rate 16 /min Elizabeth Borjas MD Work Phone: [facility] [place] 11-14-2023 09:10-0500 SaO2% (BldA) [Mass fraction] 97 % Elizabeth Borjas MD Work Phone: [facility] [place] 11-14-2023 09:10-0500 Systolic blood pressure 135 mm[Hg] Elizabeth Borjas MD Work Phone: [facility] [place] 09-26-2023 09:40-0500 Body height 180 cm Elizabeth Borjas MD Work Phone: [facility] [place] 09-26-2023 09:40-0500 Body temperature 97.81 [degF] Elizabeth Borjas MD Work Phone: [facility] [place] 09-26-2023 09:40-0500 Body weight 88.1 kg Elizabeth Borjas MD Work Phone: [facility] [place] 09-26-2023 09:40-0500 Diastolic blood pressure 77 mm[Hg] Elizabeth Borjas MD Work Phone: [facility] [place] 09-26-2023 09:40-0500 Heart rate 60 /min Elizabeth Borjas MD Work Phone: [facility] [place] 09-26-2023 09:40-0500 Respiratory rate 16 /min Elizabeth Borjas MD Work Phone: [facility] [place] 09-26-2023 09:40-0500 SaO2% (BldA) [Mass fraction] 98 % Elizabeth Borjas MD Work Phone: [facility] [place] 09-26-2023 09:40-0500 Systolic blood pressure 146 mm[Hg] Elizabeth Borjas MD Work Phone: [facility] [place] 09-06-2023 15:00-0500 Body height 184.6 cm Elizabeth Borjas MD Work Phone: [facility] [place] 09-06-2023 15:00-0500 Body temperature 98.4 [degF] Elizabeth Borjas MD Work Phone: [facility] [place] 09-06-2023 15:00-0500 Body weight 90.72 kg Elizabeth Borjas MD Work Phone: [facility] [place] 09-06-2023 15:00-0500 Diastolic blood pressure 81 mm[Hg] Elizabeth Borjas MD Work Phone: [facility] [place] 09-06-2023 15:00-0500 Heart rate 63 /min Elizabeth Borjas MD Work Phone: [facility] [place] 09-06-2023 15:00-0500 Respiratory rate 18 /min Elizabeth Borjas MD Work Phone: [facility] [place] 09-06-2023 15:00-0500 SaO2% (BldA) [Mass fraction] 97 % Elizabeth Borjas MD Work Phone: [facility] [place] 09-06-2023 15:00-0500 Systolic blood pressure 144 mm[Hg] Elizabeth Borjas MD Work Phone: [facility] [place] 08-30-2023 11:15-0500 Diastolic blood pressure 91 mm[Hg] Elke Alexander MD Work Phone: [facility] [place] 08-30-2023 11:15-0500 Heart rate 64 /min Elke Alexander MD Work Phone: [facility] [place] 08-30-2023 11:15-0500 Respiratory rate 18 /min Elke Alexander MD Work Phone: [facility] [place] 08-30-2023 11:15-0500 SaO2% (BldA) [Mass fraction] 100 % Elke Alexander MD Work Phone: [facility] [place] 08-30-2023 11:15-0500 Systolic blood pressure 163 mm[Hg] Elke Alexander MD Work Phone: [facility] [place] 08-30-2023 10:49-0500 Body temperature 96.8 [degF] Elke Alexander MD Work Phone: [facility] [place] 08-24-2023 09:49-0500 Body temperature 97.7 [degF] Carissa Alvarez MD Work Phone: [facility] [place] 08-24-2023 09:49-0500 Body weight 85.73 kg Carissa Alvarez MD Work Phone: [facility] [place] 08-24-2023 09:49-0500 Diastolic blood pressure 76 mm[Hg] Carissa Alvarez MD Work Phone: [facility] [place] 08-24-2023 09:49-0500 Heart rate 54 /min Carissa Alvarez MD Work Phone: [facility] [place] 08-24-2023 09:49-0500 Respiratory rate 16 /min Carissa Alvarez MD Work Phone: [facility] [place] 08-24-2023 09:49-0500 SaO2% (BldA) [Mass fraction] 99 % Carissa Alvarez MD Work Phone: [facility] [place] 08-24-2023 09:49-0500 Systolic blood pressure 124 mm[Hg] Carissa Alvarez MD Work Phone: [facility] [place] 07-25-2023 14:40-0400 Body height 184.6 cm Elizabeth Borjas MD Work Phone: [facility] [place] 07-25-2023 14:40-0400 Body temperature 97.81 [degF] Elizabeth Borjas MD Work Phone: [facility] [place] 07-25-2023 14:40-0400 Body weight 87.82 kg Elizabeth Borjas MD Work Phone: [facility] [place] 07-25-2023 14:40-0400 Diastolic blood pressure 86 mm[Hg] Elizabeth Borjas MD Work Phone: [facility] [place] 07-25-2023 14:40-0400 Heart rate 64 /min Elizabeth Borjas MD Work Phone: [facility] [place] 07-25-2023 14:40-0400 Respiratory rate 16 /min Elizabeth Borjas MD Work Phone: [facility] [place] 07-25-2023 14:40-0400 SaO2% (BldA) [Mass fraction] 99 % Elizabeth Borjas MD Work Phone: [facility] [place] 07-25-2023 14:40-0400 Systolic blood pressure 144 mm[Hg] Elizabeth Borjas MD Work Phone: [facility] [place] 07-07-2023 10:09-0400 Blood Pressure Location Norma Lue [facility] 07-07-2023 10:09-0400 Diastolic blood pressure 84 mm[Hg] Norma Lue [facility] 07-07-2023 10:09-0400 Heart rate 62 /min Norma Lue [facility] 07-07-2023 10:09-0400 Systolic blood pressure 132 mm[Hg] Norma Lue [facility] 06-08-2023 09:56-0400 Blood Pressure Location Norma L[facility] 06-08-2023 09:56-0400 Diastolic blood pressure 99 mm[Hg] Norma Lue [facility] 06-08-2023 09:56-0400 Heart rate 54 /min Norma Lue [facility] 06-08-2023 09:56-0400 Systolic blood pressure 149 mm[Hg] Norma Lue [facility] 04-18-2023 15:10-0400 Body temperature 98.01 [degF] SHELLIE Ivy MD Work Phone: [facility] [place] 04-18-2023 15:10-0400 Body weight 83.01 kg SHELLIE Ivy MD Work Phone: [facility] [place] 04-18-2023 15:10-0400 Diastolic blood pressure 74 mm[Hg] SHELLIE Ivy MD Work Phone: [facility] [place] 04-18-2023 15:10-0400 Heart rate 51 /min SHELLIE Ivy MD Work Phone: [facility] [place] 04-18-2023 15:10-0400 Respiratory rate 16 /min SHELLIE Ivy MD Work Phone: [facility] [place] 04-18-2023 15:10-0400 Systolic blood pressure 138 mm[Hg] SHELLIE Ivy MD Work Phone: [facility] [place] 04-18-2023 14:09-0400 Body height 184.6 cm Elizabeth Borjas MD Work Phone: [facility] [place] 04-18-2023 14:09-0400 Body temperature 98.01 [degF] Elizabeth Borjas MD Work Phone: [facility] [place] 04-18-2023 14:09-0400 Body weight 83.37 kg Elizabeth Borjas MD Work Phone: [facility] [place] 04-18-2023 14:09-0400 Diastolic blood pressure 74 mm[Hg] Elizabeth Borjas MD Work Phone: [facility] [place] 04-18-2023 14:09-0400 Heart rate 51 /min Elizabeth Borjas MD Work Phone: [facility] [place] 04-18-2023 14:09-0400 Respiratory rate 16 /min Elizabeth Borjas MD Work Phone: [facility] [place] 04-18-2023 14:09-0400 SaO2% (BldA) [Mass fraction] 99 % Elizabeth Borjas MD Work Phone: [facility] [place] 04-18-2023 14:09-0400 Systolic blood pressure 138 mm[Hg] Elizabeth Borjas MD Work Phone: [facility] [place] 03-02-2023 12:52-0400 Body temperature 97.5 [degF] SHELLIE Ivy MD Work Phone: [facility] [place] 03-02-2023 12:52-0400 Body weight 84.37 kg SHELLIE Ivy MD Work Phone: [facility] [place] 03-02-2023 12:52-0400 Diastolic blood pressure 75 mm[Hg] SHELLIE Ivy MD Work Phone: [facility] [place] 03-02-2023 12:52-0400 Heart rate 56 /min SHELLIE Ivy MD Work Phone: [facility] [place] 03-02-2023 12:52-0400 Respiratory rate 18 /min SHELLIE Ivy MD Work Phone: [facility] [place] 03-02-2023 12:52-0400 SaO2% (BldA) [Mass fraction] 99 % SHELLIE Ivy MD Work Phone: [facility] [place] 03-02-2023 12:52-0400 Systolic blood pressure 133 mm[Hg] SHELLIE Ivy MD Work Phone: [facility] [place] 01-27-2023 08:37-0400 Body temperature 97.3 [degF] SHELLIE Ivy MD Work Phone: [facility] [place] 01-27-2023 08:37-0400 Body weight 83.01 kg SHELLIE Ivy MD Work Phone: [facility] [place] 01-27-2023 08:37-0400 Diastolic blood pressure 74 mm[Hg] SHELLIE Ivy MD Work Phone: [facility] [place] 01-27-2023 08:37-0400 Heart rate 55 /min SHELLIE Ivy MD Work Phone: [facility] [place] 01-27-2023 08:37-0400 Respiratory rate 16 /min SHELLIE Ivy MD Work Phone: [facility] [place] 01-27-2023 08:37-0400 SaO2% (BldA) [Mass fraction] 99 % SHELLIE Ivy MD Work Phone: [facility] [place] 01-27-2023 08:37-0400 Systolic blood pressure 120 mm[Hg] SHELLIE Ivy MD Work Phone: [facility] [place] 01-20-2023 13:19-0400 Body height 184.6 cm Tremaine Mckinneyer PA-C Work Phone: [facility] [place] 01-20-2023 13:19-0400 Body temperature 97.59 [degF] Tremaine Mckinneyer PA-C Work Phone: [facility] [place] 01-20-2023 13:19-0400 Body weight 82.92 kg Tremaine Mckinneyer PA-C Work Phone: [facility] [place] 01-20-2023 13:19-0400 Diastolic blood pressure 66 mm[Hg] Tremaine Mckinneyer PA-C Work Phone: [facility] [place] 01-20-2023 13:19-0400 Heart rate 71 /min Tremaine Selma PA-C Work Phone: [facility] [place] 01-20-2023 13:19-0400 Respiratory rate 16 /min Tremaine Selma PA-C Work Phone: [facility] [place] 01-20-2023 13:19-0400 SaO2% (BldA) [Mass fraction] 99 % Tremaine Selma PA-C Work Phone: [facility] [place] 01-20-2023 13:19-0400 Systolic blood pressure 111 mm[Hg] Tremaine Selma PA-C Work Phone: [facility] [place] 01-13-2023 11:43-0400 Body height 184.6 cm Tremaine Selma PA-C Work Phone: [facility] [place] 01-13-2023 11:43-0400 Body temperature 97.9 [degF] Tremaine Selma PA-C Work Phone: [facility] [place] 01-13-2023 11:43-0400 Body weight 81.01 kg Tremaine Selma PA-C Work Phone: [facility] [place] 01-13-2023 11:43-0400 Diastolic blood pressure 68 mm[Hg] Tremaien Selma PA-C Work Phone: [facility] [place] 01-13-2023 11:43-0400 Heart rate 70 /min Tremaine Selma PA-C Work Phone: [facility] [place] 01-13-2023 11:43-0400 Respiratory rate 16 /min Tremaine Selma PA-C Work Phone: [facility] [place] 01-13-2023 11:43-0400 SaO2% (BldA) [Mass fraction] 95 % Tremaine Selma PA-C Work Phone: [facility] [place] 01-13-2023 11:43-0400 Systolic blood pressure 119 mm[Hg] Tremaine Selma PA-C Work Phone: [facility] [place] 01-12-2023 13:23-0400 Body temperature 98.4 [degF] SHELLIE Ivy MD Work Phone: [facility] [place] 01-12-2023 13:23-0400 Body weight 81.38 kg SHELLIE Ivy MD Work Phone: [facility] [place] 01-12-2023 13:23-0400 Diastolic blood pressure 70 mm[Hg] SHELLIE Ivy MD Work Phone: [facility] [place] 01-12-2023 13:23-0400 Heart rate 81 /min SHELLIE Ivy MD Work Phone: [facility] [place] 01-12-2023 13:23-0400 Respiratory rate 18 /min SHELLIE Ivy MD Work Phone: [facility] [place] 01-12-2023 13:23-0400 SaO2% (BldA) [Mass fraction] 99 % SHELLIE Ivy MD Work Phone: [facility] [place] 01-12-2023 13:23-0400 Systolic blood pressure 132 mm[Hg] SHELLIE Ivy MD Work Phone: [facility] [place] 01-11-2023 09:14-0400 Body height 184.6 cm Elizabeth Borjas MD Work Phone: [facility] [place] 01-11-2023 09:14-0400 Body temperature 97.5 [degF] Elizabeth Borjas MD Work Phone: [facility] [place] 01-11-2023 09:14-0400 Body weight 81.92 kg Elizabeth Borjas MD Work Phone: [facility] [place] 01-11-2023 09:14-0400 Diastolic blood pressure 62 mm[Hg] Elizabeth Borjas MD Work Phone: [facility] [place] 01-11-2023 09:14-0400 Heart rate 90 /min Elizabeth Borjas MD Work Phone: [facility] [place] 01-11-2023 09:14-0400 Respiratory rate 16 /min Elizabeth Borjas MD Work Phone: [facility] [place] 01-11-2023 09:14-0400 SaO2% (BldA) [Mass fraction] 93 % Elizabeth Borjas MD Work Phone: [facility] [place] 01-11-2023 09:14-0400 Systolic blood pressure 104 mm[Hg] Elizabeth Borjas MD Work Phone: [facility] [place] 01-02-2023 13:55-0400 Body temperature 97.9 [degF] SHELLIE Ivy MD Work Phone: [facility] [place] 01-02-2023 13:55-0400 Body weight 83.01 kg SHELLIE Ivy MD Work Phone: [facility] [place] 01-02-2023 13:55-0400 Diastolic blood pressure 69 mm[Hg] NA Biju KELLEY Work Phone: [facility] [place] 01-02-2023 13:55-0400 Heart rate 80 /min SHELLIE Ivy MD Work Phone: [facility] [place] 01-02-2023 13:55-0400 Respiratory rate 16 /min SHELLIE Ivy MD Work Phone: [facility] [place] 01-02-2023 13:55-0400 SaO2% (BldA) [Mass fraction] 99 % SHELLIE Ivy MD Work Phone: [facility] [place] 01-02-2023 13:55-0400 Systolic blood pressure 127 mm[Hg] SHELLIE Ivy MD Work Phone: [facility] [place] 12-30-2022 14:00-0400 Body temperature 99.1 [degF] Chair Servando Work Phone: [facility] [place] 12-30-2022 14:00-0400 Diastolic blood pressure 69 mm[Hg] Chair Servando Work Phone: [facility] [place] 12-30-2022 14:00-0400 Heart rate 80 /min Chair Servando Work Phone: [facility] [place] 12-30-2022 14:00-0400 Respiratory rate 16 /min Chair Servando Work Phone: [facility] [place] 12-30-2022 14:00-0400 SaO2% (BldA) [Mass fraction] 100 % Chair Servando Work Phone: [facility] [place] 12-30-2022 14:00-0400 Systolic blood pressure 124 mm[Hg] Chair Servando Work Phone: [facility] [place] 12-26-2022 13:28-0400 Body temperature 97.81 [degF] NA Biju KELLEY Work Phone: [facility] [place] 12-26-2022 13:28-0400 Body weight 83.83 kg SHELLIE Ivy MD Work Phone: [facility] [place] 12-26-2022 13:28-0400 Diastolic blood pressure 79 mm[Hg] SHELLIE Ivy MD Work Phone: [facility] [place] 12-26-2022 13:28-0400 Heart rate 78 /min SHELILE Ivy MD Work Phone: [facility] [place] 12-26-2022 13:28-0400 Respiratory rate 18 /min SHELLIE Ivy MD Work Phone: [facility] [place] 12-26-2022 13:28-0400 SaO2% (BldA) [Mass fraction] 97 % SHELLIE Ivy MD Work Phone: [facility] [place] 12-26-2022 13:28-0400 Systolic blood pressure 124 mm[Hg] SHELLIE Ivy MD Work Phone: [facility] [place] 12-26-2022 13:15-0400 Body weight 83.[address] Work Phone: [facility] [place] 12-21-2022 09:58-0400 Body height 184.6 cm Elizabeth Borjas MD Work Phone: [facility] [place] 12-21-2022 09:58-0400 Body temperature 97.5 [degF] Elizabeth Borjas MD Work Phone: [facility] [place] 12-21-2022 09:58-0400 Body weight 84.28 kg Elizabeth Borjas MD Work Phone: [facility] [place] 12-21-2022 09:58-0400 Diastolic blood pressure 71 mm[Hg] Elizabeth Borjas MD Work Phone: [facility] [place] 12-21-2022 09:58-0400 Heart rate 69 /min Elizabeth Borjas MD Work Phone: [facility] [place] 12-21-2022 09:58-0400 Respiratory rate 18 /min Elizabeth Borjas MD Work Phone: [facility] [place] 12-21-2022 09:58-0400 SaO2% (BldA) [Mass fraction] 97 % Elizabeth Borjas MD Work Phone: [facility] [place] 12-21-2022 09:58-0400 Systolic blood pressure 116 mm[Hg] Elizabeth Borjas MD Work Phone: [facility] [place] 12-15-2022 14:20-0500 Body temperature 97.59 [degF] Chair [place] Work Phone: [facility] [place] 12-15-2022 14:20-0500 Diastolic blood pressure 72 mm[Hg] Chair Servando Work Phone: [facility] [place] 12-15-2022 14:20-0500 Heart rate 59 /min Chair [place] Work Phone: [facility] [place] 12-15-2022 14:20-0500 SaO2% (BldA) [Mass fraction] 97 % Chair [place] Work Phone: [facility] [place] 12-15-2022 14:20-0500 Systolic blood pressure 135 mm[Hg] Chair [place] Work Phone: [facility] [place] 12-14-2022 08:38-0500 Body height 184.6 cm Tremaine Selma PA-C Work Phone: [facility] [place] 12-14-2022 08:38-0500 Body temperature 97.3 [degF] Tremaine Selma PA-C Work Phone: [facility] [place] 12-14-2022 08:38-0500 Body weight 86.36 kg Tremaine Selma PA-C Work Phone: [facility] [place] 12-14-2022 08:38-0500 Diastolic blood pressure 62 mm[Hg] Tremaine Selma PA-C Work Phone: [facility] [place] 12-14-2022 08:38-0500 Heart rate 93 /min Tremaine Selma PA-C Work Phone: [facility] [place] 12-14-2022 08:38-0500 Respiratory rate 16 /min Tremaine Selma PA-C Work Phone: [facility] [place] 12-14-2022 08:38-0500 SaO2% (BldA) [Mass fraction] 99 % Tremaine Selma PA-C Work Phone: [facility] [place] 12-14-2022 08:38-0500 Systolic blood pressure 110 mm[Hg] Tremaine Selma PA-C Work Phone: [facility] [place] 12-12-2022 14:32-0500 Body temperature 97.7 [degF] SHELLIE Ivy MD Work Phone: [facility] [place] 12-12-2022 14:32-0500 Body weight 87.36 kg SHELLIE Ivy MD Work Phone: [facility] [place] 12-12-2022 14:32-0500 Heart rate 70 /min SHELLIE Ivy MD Work Phone: [facility] [facility] [place] 12-12-2022 14:32-0500 Respiratory rate 18 /min SHELLIE Ivy MD Work Phone: [facility] [place] 12-07-2022 10:12-0500 Body temperature 97.81 [degF] Tremaine Selma PA-C Work Phone: [facility] [place] 12-07-2022 10:12-0500 Body weight 86.91 kg Tremaine Selma PA-C Work Phone: [facility] [place] 12-07-2022 10:12-0500 Diastolic blood pressure 79 mm[Hg] Tremaine Selma PA-C Work Phone: [facility] [place] 12-07-2022 10:12-0500 Heart rate 71 /min Tremaine Selma PA-C Work Phone: [facility] [place] 12-07-2022 10:12-0500 Respiratory rate 16 /min Tremaine Selma PA-C Work Phone: [facility] [place] 12-07-2022 10:12-0500 SaO2% (BldA) [Mass fraction] 99 % Tremaine Selma PA-C Work Phone: [facility] [place] 12-07-2022 10:12-0500 Systolic blood pressure 130 mm[Hg] Tremaine Selma PA-C Work Phone: [facility] [place] 12-05-2022 13:39-0500 Body temperature 96.21 [degF] SHELLIE Ivy MD Work Phone: [facility] [place] 12-05-2022 13:39-0500 Body weight 89.36 kg SHELLIE Ivy MD Work Phone: [facility] [place] 12-05-2022 13:39-0500 Diastolic blood pressure 83 mm[Hg] SHELLIE Ivy MD Work Phone: [facility] [place] 12-05-2022 13:39-0500 Heart rate 67 /min SHELLIE Ivy MD Work Phone: [facility] [place] 12-05-2022 13:39-0500 Respiratory rate 18 /min SHELLIE Ivy MD Work Phone: [facility] [place] 12-05-2022 13:39-0500 SaO2% (BldA) [Mass fraction] 98 % SHELLIE Ivy MD Work Phone: [facility] [place] 12-05-2022 13:39-0500 Systolic blood pressure 147 mm[Hg] SHELLIE Ivy MD Work Phone: [facility] [place] 11-28-2022 11:52-0500 Body temperature 96.69 [degF] SHELLIE Ivy MD Work Phone: [facility] [place] 11-28-2022 11:52-0500 Body weight 88.91 kg SHELLIE Ivy MD Work Phone: [facility] [place] 11-28-2022 11:52-0500 Diastolic blood pressure 92 mm[Hg] SHELLIE Ivy MD Work Phone: [facility] [place] 11-28-2022 11:52-0500 Heart rate 66 /min SHELLIE Ivy MD Work Phone: [facility] [place] 11-28-2022 11:52-0500 Respiratory rate 18 /min SHELLIE Ivy MD Work Phone: [facility] [place] 11-28-2022 11:52-0500 SaO2% (BldA) [Mass fraction] 98 % SHELLIE Ivy MD Work Phone: [facility] [place] 11-28-2022 11:52-0500 Systolic blood pressure 149 mm[Hg] SHELLIE Ivy MD Work Phone: [facility] [place] 11-21-2022 09:58-0500 Body height 184.6 cm Chair Harvey Work Phone: [facility] [place] 11-21-2022 09:14-0500 Body height 180.3 cm Tremaine Mckinneyer PA-C Work Phone: [facility] [place] 11-21-2022 09:14-0500 Body temperature 97.39 [degF] Tremaine Mckinneyer PA-C Work Phone: [facility] [place] 11-21-2022 09:14-0500 Body weight 92.08 kg Tremaine Selma PA-C Work Phone: [facility] [place] 11-21-2022 09:14-0500 Diastolic blood pressure 87 mm[Hg] Tremaine Mckinneyer PA-C Work Phone: [facility] [place] 11-21-2022 09:14-0500 Heart rate 67 /min Tremaine Selma PA-C Work Phone: [facility] [place] 11-21-2022 09:14-0500 Respiratory rate 16 /min Tremaine Selma PA-C Work Phone: [facility] [place] 11-21-2022 09:14-0500 SaO2% (BldA) [Mass fraction] 99 % Tremaine Selma PA-C Work Phone: [facility] [place] 11-21-2022 09:14-0500 Systolic blood pressure 145 mm[Hg] Tremaine Selma PA-C Work Phone: [facility] [place] 11-02-2022 10:54-0500 Body height 180.3 cm Elizabeth Borjas MD Work Phone: [facility] [place] 11-02-2022 10:54-0500 Body temperature 97.59 [degF] Elizabeth Borjas MD Work Phone: [facility] [place] 11-02-2022 10:54-0500 Body weight 92.63 kg Elizabeth Borjas MD Work Phone: [facility] [place] 11-02-2022 10:54-0500 Diastolic blood pressure 95 mm[Hg] Elizabeth Borjas MD Work Phone: [facility] [place] 11-02-2022 10:54-0500 Heart rate 70 /min Elizabeth Borjas MD Work Phone: [facility] [place] 11-02-2022 10:54-0500 Respiratory rate 16 /min Elizabeth Borjas MD Work Phone: [facility] [place] 11-02-2022 10:54-0500 SaO2% (BldA) [Mass fraction] 97 % Elizabeth Borjas MD Work Phone: [facility] [place] 11-02-2022 10:54-0500 Systolic blood pressure 178 mm[Hg] Elizabeth Borjas MD Work Phone: [facility] [place] 10-27-2022 09:07-0500 Body height 180.3 cm SHELLIE Ivy MD Work Phone: [facility] [place] 10-27-2022 09:07-0500 Body temperature 97.7 [degF] SHELLIE Ivy MD Work Phone: [facility] [place] 10-27-2022 09:07-0500 Body weight 92.08 kg SHELLIE Ivy MD Work Phone: [facility] [place] 10-27-2022 09:07-0500 Diastolic blood pressure 103 mm[Hg] SHELLIE Ivy MD Work Phone: [facility] [place] 10-27-2022 09:07-0500 Heart rate 60 /min SHELLIE Ivy MD Work Phone: [facility] [place] 10-27-2022 09:07-0500 SaO2% (BldA) [Mass fraction] 98 % SHELLIE Ivy MD Work Phone: [facility] [place] 10-27-2022 09:07-0500 Systolic blood pressure 174 mm[Hg] SHELLIE Ivy MD Work Phone: [facility] [place] 06-10-2022 08:20-0400 Blood Pressure Location Shelly Velez [facility] 06-10-2022 08:20-0400 Diastolic blood pressure 89 mm[Hg] Shelly Kims [facility] 06-10-2022 08:20-0400 Heart rate 88 /min Shelly Kims [facility] 06-10-2022 08:20-0400 Systolic blood pressure 140 mm[Hg] Shelly [place] [facility] Encounters Encounter Date Encounter Type Care Provider Facility Start: 06-27-2025 ambulatory Norma Craig Facility:[facility] Start: 06-05-2025 End: 06-05-2025 Patient encounter procedure Tayla Ellsworth MD Work Phone: Radiation Oncology Comment on above: Malignant neoplasm o f unspecified part of unspecified bronchus or lung (HCC) (Primary Dx) Start: 06-05-2025 End: 06-05-2025 ambulatory TAYLA ELLSWORTH Facility:[facility] Start: 05-29-2025 End: 06-03-2025 Telephone encounter Lakia Medina MD Work Phone: Cancer [facility]ts Comment on above: Results Start: 05-29-2025 End: 05-29-2025 ambulatory Chair Elbert Harvey Work Phone: Hematology/Oncology Comment on above: Oropharnyx cancer (H CC) (Primary Dx) Start: 05-29-2025 End: 05-29-2025 Office outpatient visit 25 minutes Lakia Medina MD Work Phone: Hematology/Oncology Comment on above: 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); Personal history of irradiation; Subacute cough; Oral phase dysphagia Start: 05-29-2025 End: 05-29-2025 ambulatory ELIZABETH DALEAshley Facility:[facility] Start: 05-29-2025 End: 05-29-2025 Subsequent hospital visit by physician Arrival Time Radiology Work Phone: Radiology [facility] Comment on above: Malignant neoplasm o f unspecified part of unspecified bronchus or lung (HCC) [C34.90] Start: 05-28-2025 End: 05-28-2025 Office outpatient visit 25 minutes Chuck Jones MD Work Phone: Endocrinology Comment on above: Acquired hypothyroid ism (Primary Dx); Abnormal FSH level; Abnormal LH level Start: 05-28-2025 End: 05-28-2025 ambulatory CHUCK JONES Facility:[facility] Start: 05-06-2025 End: 05-09-2025 Telephone encounter Lakia Medina MD Work Phone: Hematology/Oncology Comment on above: Forms/letter Start: 05-02-2025 End: 05-02-2025 Bamboo flowsheet [facility]noch Forbes MD [facility] Start: 05-02-2025 End: 05-02-2025 Bamboo flowsheet Enoch Forbes MD [facility] Start: 05-02-2025 End: 05-02-2025 Office outpatient visit 15 minutes [facility]noch Forbes MD [facility] Comment on above: 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) Start: 05-02-2025 End: 05-02-2025 ambulatory ENOCH FORBES Not Available Start: 04-18-2025 End: 04-18-2025 ambulatory Chair 14 Servando Work Phone: Hematology/Oncology Comment on above: Oropharnyx cancer (H CC) (Primary Dx); 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); Adrenal insufficiency (HCC); Malaise and fatigue Start: 03-07-2025 End: 03-07-2025 Office outpatient visit 40 minutes Lakia Medina MD Work Phone: Hematology/Oncology Comment on above: 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); Encounter for immunotherapy; Adrenal insufficiency (HCC); Oropharnyx cancer (HCC) Start: 03-07-2025 End: 03-07-2025 ambulatory Chair 16 Servando Work Phone: Hematology/Oncology Comment on above: Oropharnyx cancer (H CC) (Primary Dx) Start: 02-20-2025 End: 02-20-2025 Orders Only Tayla Ellsworth MD Work Phone: Radiation Oncology Comment on above: Malignant neoplasm o f unspecified part of unspecified bronchus or lung (HCC) (Primary Dx) 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); 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] Start: 02-04-2025 End: 04-06-2025 Follow-up encounter Chuck Jones MD Work Phone: Endocrinology Start: 02-03-2025 End: 02-03-2025 ambulatory SELF Facility:[facility] Start: 01-31-2025 End: 01-31-2025 Bamidalia Forbes MD Work Phone: [facility] RODRIGUE[facility] Start: 01-31-2025 End: 01-31-2025 Bamboo flowscosme Forbes MD Work Phone: [facility] RODRIGUE[facility] Start: 01-31-2025 End: 01-31-2025 ambulatory ENOCH FORBES Not Available Start: 01-31-2025 End: 01-31-2025 Office outpatient visit 15 minutes Enoch Forbes MD Work Phone: [facility] Comment on above: 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) Start: 01-24-2025 End: 01-24-2025 ambulatory Chair 14 Servando Work Phone: Hematology/Oncology Comment on above: Oropharnyx cancer (H CC) (Primary Dx); 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); Adrenal insufficiency (HCC); Malaise and fatigue Start: 01-17-2025 End: 01-19-2025 Refill Chuck Jones MD Work Phone: Endocrinology Comment on above: Med Change Request Start: 01-15-2025 End: 01-16-2025 Telephone encounter Chuck Jones MD Work Phone: Endocrinology Start: 01-10-2025 End: 01-10-2025 ambulatory CHUCK JONES Facility:[facility] Start: 01-10-2025 End: 01-10-2025 Office outpatient visit 25 minutes Chuck Jones MD Work Phone: Endocrinology Comment on above: Adrenal insufficienc y (HCC) (Primary Dx); Acquired hypothyroidism; Gastroesophageal reflux disease, unspecified whether esophagitis present Start: 12-13-2024 End: 12-13-2024 Office outpatient visit 15 minutes Lakia Medina MD Work Phone: Hematology/Oncology Comment on above: 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) Start: 12-13-2024 End: 12-13-2024 ambulatory Chair 16 Servando Work Phone: Hematology/Oncology Comment on above: Oropharnyx cancer (H CC) (Primary Dx) Start: 11-01-2024 End: 11-01-2024 Office outpatient visit 25 minutes Vicky Maguire APRN.FINE ARTS CHAIR Work Phone: Hematology/Oncology Comment on above: 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); Encounter for immunotherapy Start: 11-01-2024 End: 11-04-2024 ambulatory Chair 13 Servando Work Phone: Hematology/Oncology Comment on above: Oropharnyx cancer (H CC) (Primary Dx) Start: 11-01-2024 End: 11-01-2024 Office outpatient visit 15 minutes Enoch Forbes MD Work Phone: [facility] Comment on above: 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) Start: 11-01-2024 End: 11-01-2024 ambulatory ENOCH FORBES Not Available Start: 10-31-2024 End: 10-31-2024 Orders Only Tayla Ellsworth MD Work Phone: Radiation Oncology Comment on above: 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); Oropharnyx cancer (HCC); Secondary malignant neoplasm of right lung (HCC) Neoplasm of lung [D4 9.1] 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); Oropharnyx cancer (HCC) Start: 09-20-2024 End: 09-20-2024 Bamboo flowsheet Enoch Forbes MD Work Phone: [facility] RODRIGUEZ Start: 09-20-2024 End: 09-20-2024 Bamboo flowsheet Enoch Forbes MD Work Phone: [facility] Start: 09-20-2024 End: 09-20-2024 Office outpatient visit 15 minutes Enoch Forbes MD Work Phone: [facility] Comment on above: 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) Start: 09-20-2024 End: 09-20-2024 ambulatory ENOCH FORBES Not Available Start: 09-13-2024 End: 09-13-2024 Patient encounter procedure Whitney Hallman KIER OPERATOR.FINE ARTS CHAIR Work Phone: Hematology/Oncology Start: 09-13-2024 End: 09-16-2024 ambulatory Whitney Hallman KIER OPERATOR.FINE ARTS CHAIR Work Phone: Hematology/Oncology Comment on above: 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) Start: 08-20-2024 End: 08-20-2024 Bamboo flowsheet Enoch Forbes MD Work Phone: [facility] Start: 08-20-2024 End: 08-20-2024 Bamboo flowsheet Enoch Forbes MD Work Phone: [facility] Start: 08-20-2024 End: 08-20-2024 ambulatory ENOCH FORBES Not Available Start: 08-20-2024 End: 08-20-2024 Office outpatient visit 25 minutes Enoch Forbes MD Work Phone: [facility] Comment on above: Chronic otorrhea of right ear (Primary Dx); Squamous cell cancer of tongue (CMS/HCC) Start: 08-09-2024 End: 08-09-2024 ambulatory CHUCK JONES Facility:[facility] Start: 08-09-2024 End: 08-09-2024 Office outpatient visit 25 minutes Chuck Jones MD Work Phone: Endocrinology Comment on above: Acquired hypothyroid ism (Primary Dx); Abnormal FSH level; Abnormal LH level Start: 08-02-2024 End: 08-02-2024 Office outpatient visit 25 minutes Lakia Medina MD Work Phone: Hematology/Oncology Comment on above: 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); Chronic myringitis of right ear Start: 07-12-2024 End: 07-12-2024 ambulatory ENOCH FORBES Not Available Start: 07-06-2024 End: 07-07-2024 Patient encounter procedure Tayla Ellsworth MD Work Phone: Radiation Oncology Start: 07-06-2024 End: 07-07-2024 Radiation Oncology Note Tayla Ellsworth MD Work Phone: Radiation Oncology Comment on above: Completion Note Start: 07-05-2024 End: 07-09-2024 Refill Elizabeth Borjas MD Work Phone: Hematology/Oncology Comment on above: Refill Request Start: 07-05-2024 End: 07-05-2024 Orders Only Tayla Ellsworth MD Work Phone: Radiation Oncology Comment on above: Neoplasm of lung (Pr imary Dx) Oropharnyx cancer (H CC) (Primary Dx); Secondary malignant neoplasm of right lung (HCC) Start: 06-28-2024 End: 07-03-2024 Radiation Oncology Note Tayla Ellsworth MD Work Phone: Radiation Oncology Comment on above: Simulation Note Treatment Planning Start: 06-28-2024 End: 06-28-2024 ambulatory TAYLA ELLSWORTH Facility:[facility] Start: 06-28-2024 End: 07-03-2024 Patient encounter procedure Pulm Fct Lab Main 5 Work Phone: Pulmonary Medicine Comment on above: Spirometry Start: 06-28-2024 End: 06-28-2024 ambulatory TAYLA ELLSWORTH Facility:[facility] Start: 06-28-2024 End: 06-28-2024 ambulatory Norma Craig Facility:[facility] Start: 06-28-2024 End: 06-28-2024 Nursing evaluation of patient and report Nurse Radt Main Work Phone: Radiation Oncology Comment on above: Encounter for observ ation for other suspected diseases and conditions ruled out (Primary Dx) Start: 06-20-2024 End: 06-20-2024 Office outpatient visit 25 minutes Lakia Medina MD Work Phone: Hematology/Oncology Comment on above: 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); Oropharnyx cancer (HCC); Adrenal insufficiency (HCC) Start: 06-20-2024 End: 06-21-2024 ambulatory Chair 14 Servando Work Phone: Hematology/Oncology Comment on above: Oropharnyx cancer (H CC) (Primary Dx) Start: 06-17-2024 End: 06-17-2024 Telephone encounter Lakia Medina MD Work Phone: Hematology/Oncology Comment on above: Lab Orders Start: 06-13-2024 End: 06-14-2024 Orders Only Tayla Ellsworth MD Work Phone: Radiation Oncology Comment on above: 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); Oropharnyx cancer (HCC) Start: 06-11-2024 End: 06-11-2024 Orders Only Tayla Ellsworth MD Work Phone: Radiation Oncology Comment on above: Oropharnyx cancer (H CC) (Primary Dx); Secondary malignant neoplasm of right lung (HCC) Oropharnyx cancer (H CC) Start: 05-31-2024 End: 06-03-2024 ambulatory Elizabeth Borjas MD Work Phone: Hematology/Oncology Comment on above: Radiation Start: 05-21-2024 End: 05-21-2024 ambulatory RAS Dixon CICJANUARY Facility:[facility] Start: 05-17-2024 End: 05-17-2024 ambulatory ENOCH FORBES Not Available Start: 05-17-2024 End: 05-17-2024 Preprocedural examination done Karolina Catalan MD Work Phone: [facility] [place] Start: 05-17-2024 End: 05-17-2024 Telemedicine consultation with patient Karolina Catalan MD Work Phone: Pulmonology Start: 05-17-2024 End: 05-17-2024 ambulatory Karolina Catalan MD Work Phone: Pulmonology Comment on above: Lung nodule (Primary Dx); Preoperative examination Start: 05-16-2024 End: 05-16-2024 Nursing evaluation of patient and report Ma Nurse Hilario Tafoya Work Phone: Hematology/Oncology Comment on above: Adenopathy Start: 05-14-2024 End: 05-14-2024 [facility] Start: 05-14-2024 End: 05-14-2024 Preprocedural examination done Pac Virtual [facility] [place] Work Phone: Start: 05-14-2024 End: 05-14-2024 Anesthesia [...] Bronchoscopy Schedul ing Start: 05-10-2024 End: 05-10-2024 Office consultation new/estab patient 60 min Chuck Jones MD Work Phone: Endocrinology Comment on above: Acquired hypothyroid ism (Primary Dx); Adrenal insufficiency (HCC) Start: 05-08-2024 End: 05-27-2024 Telephone encounter Elizabeth Borjas MD Work Phone: Cancer Appts Comment on above: Future Appointment Start: 05-08-2024 End: 05-08-2024 ambulatory Elizabeth Borjas MD Work Phone: Hematology/Oncology Comment on above: Oropharnyx cancer (H CC) (Primary Dx) Start: 05-08-2024 End: 05-08-2024 Patient encounter procedure Elizabeth Borjas MD Work Phone: Hematology/Oncology Start: 05-03-2024 End: 05-03-2024 Subsequent hospital visit by physician Arrival Time Radiology Work Phone: Radiology [facility] Comment on above: 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] Start: 04-12-2024 End: 04-12-2024 Patient encounter procedure MD Julian Burton Work Phone: [facility] [employer] Work Phone: Start: 04-12-2024 End: 04-12-2024 ambulatory MD Julian Burton Work Phone: [facility] Work Phone: Start: 03-28-2024 ambulatory Elizabeth Borjas MD Work Phone: Hematology/Oncology Comment on above: [employer] Start: 03-26-2024 End: 03-26-2024 ambulatory Chair 16 Servando Work Phone: Hematology/Oncology Comment on above: Oropharnyx cancer (H CC) (Primary Dx); Malaise and fatigue; Thunderclap headache Start: 03-26-2024 End: 03-26-2024 Office outpatient visit 25 minutes Tremaine Gomez PA-C Work Phone: Hematology/Oncology Comment on above: Oropharnyx cancer (H CC) (Primary Dx); Malaise and fatigue; Thunderclap headache Start: 03-12-2024 Telephone encounter Tremaine trevino PA-C Work Phone: Hematology/Oncology Comment on above: Lab Orders Start: 02-13-2024 End: 02-13-2024 ambulatory Chair 5 Servando Work Phone: Hematology/Oncology Comment on above: Oropharnyx cancer (H CC) (Primary Dx); 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) Start: 01-02-2024 End: 01-02-2024 ambulatory Chair 5 Servando Work Phone: Hematology/Oncology Comment on above: 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); 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) Start: 01-02-2024 End: 01-02-2024 Patient encounter procedure Whitney Hallman APRN.CNP Work Phone: [facility] Start: 12-13-2023 Telephone encounter Chiqui Modi RN Work Phone: Hematology/Oncology Comment on above: Care Coordination (T hyroid medication) Start: 12-12-2023 End: 12-12-2023 ambulatory Elizabeth Borjas MD Work Phone: Hematology/Oncology Comment on above: Oropharnyx cancer (H CC) (Primary Dx) Start: 12-12-2023 End: 12-12-2023 Patient encounter procedure Elizabeth Borjas MD Work Phone: [facility] Start: 12-08-2023 End: 12-08-2023 Subsequent hospital visit by physician Arrival Time Radiology Work Phone: Radiology [facility] Comment on above: 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] Start: 11-17-2023 Bamboo flowsheet Enoch juarez MD Work Phone: [facility] JAVIER RODRIGUEZ Start: 11-17-2023 Bamboo flowsheet Enoch juarez MD Work Phone: [facility] ENT MICHAEL Start: 11-17-2023 End: 11-17-2023 Office outpatient visit 15 minutes Enoch Forbes MD Work Phone: [facility] Comment on above: 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); 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) Start: 11-15-2023 Telephone encounter Elizabeth galicia MD Work Phone: Hematology/Oncology Comment on above: Orders Start: 11-14-2023 End: 11-14-2023 ambulatory Elizabeth Borjas MD Work Phone: Hematology/Oncology Comment on above: Oropharnyx cancer (H CC) (Primary Dx) Start: 11-14-2023 End: 11-14-2023 Patient encounter procedure Elizabeth Borjas MD Work Phone: [employer] Start: 09-26-2023 End: 09-27-2023 Nursing evaluation of patient and report Chiqui Modi RN Work Phone: Hematology/Oncology Comment on above: Oropharnyx cancer (H CC) (Primary Dx) Start: 09-26-2023 End: 09-26-2023 ambulatory Elizabeth Borjas MD Work Phone: Hematology/Oncology Comment on above: Oropharnyx cancer (H CC) (Primary Dx) Start: 09-26-2023 End: 09-26-2023 Patient encounter procedure Elizabeth Borjas MD Work Phone: [facility] Start: 09-22-2023 End: 09-22-2023 Subsequent hospital visit by physician Arrival Time Radiology Work Phone: Radiology Pet CT Comment on above: Neoplasm of lung [D4 9.1] Start: 09-21-2023 Telephone encounter Elizabeth galicia MD Work Phone: Hematology/Oncology Comment on above: Lab Orders Start: 09-21-2023 End: 09-21-2023 ambulatory Norma Craig Facility:[facility] Start: 09-21-2023 End: 09-21-2023 Patient encounter procedure Norma Craig [facility] [place] Start: 09-13-2023 Telephone encounter Poly Mcfadden Hematology/Oncology Comment on above: Appointment Start: 09-11-2023 ambulatory Elizabeth Borjas MD Work Phone: Hematology/Oncology Comment on above: Caitlin Elmore Start: 09-06-2023 End: 09-06-2023 ambulatory Elizabeth Borjas MD Work Phone: Hematology/Oncology Comment on above: Oropharnyx cancer (H CC) (Primary Dx); Neoplasm of lung Start: 09-06-2023 End: 09-06-2023 Patient encounter procedure Elizabeth Borjas MD Work Phone: [facility] Start: 08-30-2023 End: 08-30-2023 Subsequent hospital visit by physician Elke Alexander MD Work Phone: Admitting Comment on above: Bronchiolar disease [J98.09] Start: 08-24-2023 End: 08-25-2023 Patient encounter procedure Carissa Alvarez MD Work Phone: Pulmonary Medicine Comment on above: Pulmonary nodule (Pr imary Dx); Oropharnyx cancer (HCC); 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); Preoperative examination Start: 08-24-2023 End: 08-25-2023 Preprocedural examination done Carissa Alvarez MD Work Phone: [facility] Start: 08-24-2023 End: 08-24-2023 Subsequent hospital visit by physician [facility] Work Phone: Radiology Comment on above: Pulmonary nodule [R9 1.1] Start: 08-14-2023 Telephone encounter Elizabeth galicia MD Work Phone: [facility] Comment on above: Bronchoscopy Schedul ing Start: 08-03-2023 ambulatory Ekle Alexander MD Work Phone: Pulmonary Medicine Comment on above: Bronchoscopy Schedul ing (Initial Bronch Request ) Nodules in my lung Start: 08-03-2023 Preprocedural examin ation done Elke Alexander MD Work Phone: [facility] [place] Work Phone: Start: 07-25-2023 End: 07-25-2023 ambulatory Elizabeth Borjas MD Work Phone: Hematology/Oncology Comment on above: Oropharnyx cancer (H CC) (Primary Dx) Start: 07-25-2023 End: 07-25-2023 Patient encounter procedure Elizabeth Borjas MD Work Phone: FIELDING Start: 07-18-2023 End: 07-18-2023 Subsequent hospital visit by physician Arrival Time Radiology Work Phone: Radiology Pet CT Comment on above: 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] Start: 07-07-2023 End: 07-07-2023 ambulatory Norma Craig Facility:[facility] [place] Start: 07-07-2023 End: 07-07-2023 Patient encounter procedure Norma Craig [facility] Start: 06-08-2023 End: 06-08-2023 Patient encounter procedure Norma Craig [facility] Start: 05-16-2023 End: 05-16-2023 Patient encounter procedure MD Julian Burton Work Phone: [facility] Work Phone: Start: 05-16-2023 End: 05-16-2023 ambulatory MD Julian Burton Work Phone: [facility] Work Phone: Start: 04-18-2023 End: 04-18-2023 ambulatory Elizabeth Borjas MD Work Phone: Hematology/Oncology Comment on above: Oropharnyx cancer (H CC) (Primary Dx) Start: 04-18-2023 End: 04-18-2023 Patient encounter procedure Elizabeth Borjas MD Work Phone: FIELDING Comment on above: Encounter for observ ation for other suspected diseases and conditions ruled out (Primary Dx) Start: 04-14-2023 End: 04-14-2023 Subsequent hospital visit by physician Arrival Time Radiology Work Phone: Radiology Pet CT Comment on above: 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] Start: 03-02-2023 End: 03-02-2023 Patient encounter procedure Nino Ivy MD Work Phone: Radiation Oncology Comment on above: Oropharnyx cancer (H CC) (Primary Dx) Start: 01-27-2023 End: 01-27-2023 Patient encounter procedure Nino Ivy MD Work Phone: Radiation Oncology Comment on above: Oropharnyx cancer (H CC) (Primary Dx) Start: 01-20-2023 Telephone encounter Tremaine trevino PAMaguiC Work Phone: Hematology/Oncology Comment on above: Results Start: 01-20-2023 End: 01-20-2023 ambulatory Tremaine DOANC Work Phone: Hematology/Oncology Comment on above: Oropharnyx cancer (H CC) (Primary Dx) Start: 01-20-2023 End: 01-20-2023 Patient encounter procedure Tremaine Gomez PA-C Work Phone: [facility] Start: 01-13-2023 End: 01-13-2023 ambulatory Tremaine M Selma VICK Work Phone: Hematology/Oncology Comment on above: 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) 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); Oropharnyx cancer (HCC) Start: 01-13-2023 End: 01-13-2023 Patient encounter procedure Tremaine M Selma VICK Work Phone: [facility] Start: 01-12-2023 End: 01-12-2023 Patient encounter procedure Nino Ivy MD Work Phone: Radiation Oncology Comment on above: Oropharnyx cancer (H CC) (Primary Dx) Start: 01-11-2023 End: 01-11-2023 ambulatory Elizabeth Borjas MD Work Phone: Hematology/Oncology Comment on above: 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) 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); Oropharnyx cancer (HCC) Start: 01-11-2023 End: 01-11-2023 Patient encounter procedure Elizabeth Borjas MD Work Phone: [facility] Start: 01-07-2023 Refill Elizabeth Borjas MD Work Phone: Hematology/Oncology Comment on above: Refill Request Start: 01-06-2023 End: 01-06-[address] Work Phone: [facility] Start: 01-06-2023 End: 01-06-2023 Nutrition therapy Yadi Simms RD Work Phone: Nutrition Therapy Comment on above: Nutrition Counseling Start: 01-06-2023 Patient encounter procedure Nino Ivy MD Work Phone: [facility] Start: 01-06-2023 Radiation Oncology Note Nino Ivy MD Work Phone: Radiation Oncology Comment on above: Completion Note Start: 01-02-2023 End: 01-02-2023 Patient encounter procedure Nino Ivy MD Work Phone: Radiation Oncology Comment on above: Oropharnyx cancer (H CC) (Primary Dx); Cancer related pain Start: 01-02-2023 Radiation Oncology Note Nino Ivy MD Work Phone: Radiation Oncology Comment on above: Treatment Planning Start: 12-30-2022 End: 12-30-2022 ambulatory Chair 21 Servando Work Phone: Hematology/Oncology Comment on above: 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); Oropharnyx cancer (HCC) Start: 12-30-2022 Telephone encounter Elizabeth galicia MD Work Phone: Radiation Oncology Comment on above: Fatigue Start: 12-29-2022 Telephone encounter Chiqui Modi RN Work Phone: Hematology/Oncology Comment on above: Care Coordination (T oxicity check) Start: 12-26-2022 End: 12-26-[address] Work Phone: [facility] Start: 12-26-2022 End: 12-26-2022 Nutrition therapy Yadi Simms RD Work Phone: Nutrition Therapy Comment on above: Nutrition Counseling Start: 12-26-2022 End: 12-26-2022 Patient encounter procedure Nino Ivy MD Work Phone: Radiation Oncology Comment on above: Oropharnyx cancer (H CC) (Primary Dx) Start: 12-26-2022 Radiation Oncology Note Nino Ivy MD Work Phone: Radiation Oncology Comment on above: Simulation Note Treatment Planning Start: 12-26-2022 End: 12-26-2022 Subsequent hospital visit by physician Nino Ivy MD Work Phone: Radiology Pet CT Start: 12-21-2022 End: 12-21-2022 ambulatory Elizabeth Borjas MD Work Phone: Hematology/Oncology Comment on above: 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); Oropharnyx cancer (HCC) Start: 12-21-2022 End: 12-21-2022 Patient encounter procedure Elizabeth Borjas MD Work Phone: [facility] Start: 12-20-2022 Telephone encounter Chiqui Modi RN Work Phone: Hematology/Oncology Comment on above: Care Coordination (T oxicity check) Start: 12-19-2022 End: 12-19-[address] Work Phone: [facility] Comment on above: 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); Oropharnyx cancer (HCC) Start: 12-19-2022 End: 12-19-2022 Nutrition therapy Yadi Simms RD Work Phone: Nutrition Therapy Comment on above: Nutrition Assessment Start: 12-15-2022 End: 12-15-2022 Orders Keegan Ivy MD Work Phone: Radiation Oncology Comment on above: 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); Oropharnyx cancer (HCC) Start: 12-14-2022 End: 12-14-2022 Nutrition therapy Yadi Simms RD Work Phone: Nutrition Therapy Comment on above: Nutrition Counseling Start: 12-14-2022 End: 12-14-2022 ambulatory Tremaine Gomez PA-C Work Phone: Hematology/Oncology Comment on above: Oropharnyx cancer (H CC) (Primary Dx); Esophagitis; Elevated prostate specific antigen (PSA) Oropharnyx cancer (H CC) (Primary Dx) Start: 12-14-2022 End: 12-14-2022 Patient encounter procedure Tremaine Gomez PA-C Work Phone: [facility] Start: 12-12-2022 End: 12-12-[address] Work Phone: [facility] Start: 12-12-2022 End: 12-12-2022 Nutrition therapy Yadi Simms RD Work Phone: Nutrition Therapy Comment on above: Nutrition Counseling Start: 12-12-2022 End: 12-12-2022 Patient encounter procedure Nino Ivy MD Work Phone: Radiation Oncology Comment on above: Oropharnyx cancer (H CC) (Primary Dx) Start: 12-07-2022 End: 12-07-2022 ambulatory Tremaine SINGH-C Work Phone: Hematology/Oncology Comment on above: Oropharnyx cancer (H CC) (Primary Dx); Esophagitis Oropharnyx cancer (H CC) (Primary Dx) Start: 12-07-2022 End: 12-07-2022 Patient encounter procedure Tremaine SINGH-C Work Phone: [facility] Start: 12-06-2022 End: 12-06-[address] Work Phone: [facility] Start: 12-06-2022 End: 12-06-2022 Nutrition therapy Yadi Simms RD Work Phone: Nutrition Therapy Comment on above: Nutrition Counseling Start: 12-06-2022 Telephone encounter Chiqui Modi RN Work Phone: Hematology/Oncology Comment on above: Care Coordination (T oxicity check) Start: 12-05-2022 End: 12-05-[address] Work Phone: [facility] Start: 12-05-2022 End: 12-05-2022 Nutrition therapy Yadi Simms RD Work Phone: Nutrition Therapy Comment on above: Nutrition Assessment Start: 12-05-2022 End: 12-05-2022 Patient encounter procedure Nino Ivy MD Work Phone: Radiation Oncology Comment on above: Oropharnyx cancer (H CC) (Primary Dx) Start: 11-29-2022 End: 11-29-[address] Work Phone: [facility] Start: 11-29-2022 End: 11-29-2022 Nutrition therapy Yadi Simms RD Work Phone: Nutrition Therapy Comment on above: Nutrition Counseling Start: 11-29-2022 End: 11-29-2022 ambulatory Chair Landon Harvey Work Phone: Hematology/Oncology Comment on above: Oropharnyx cancer (H CC) (Primary Dx) Start: 11-28-2022 End: 11-28-2022 Patient encounter procedure Nino Ivy MD Work Phone: Radiation Oncology Comment on above: Oropharnyx cancer (H CC) (Primary Dx) Start: 11-24-2022 Telephone encounter Chiqui Modi RN Work Phone: Hematology/Oncology Comment on above: Care Coordination (C 1D1 treatment follow up call) Start: 11-22-2022 Telephone encounter Financial Navigator Hilario Work Phone: Hematology/Oncology Comment on above: Benefits Investigati on Start: 11-21-2022 End: 11-21-2022 ambulatory Tremaine DOANC Work Phone: Hematology/Oncology Comment on above: Oropharnyx cancer (H CC) (Primary Dx) Start: 11-21-2022 End: 11-21-[address] Work Phone: [facility] Start: 11-21-2022 End: 11-21-2022 Nutrition therapy Yadi Simms RD Work Phone: Nutrition Therapy Comment on above: Nutrition Counseling Start: 11-21-2022 End: 11-21-2022 Patient encounter procedure Tremaine Gomez PA-C Work Phone: [facility] Start: 11-15-2022 Patient encounter procedure [facility] Provider [facility] Department Start: 11-15-2022 Telephone encounter Nino Ivy MD Work Phone: Radiation Oncology Comment on above: Patient Update Care Coordination (Zack jhonny in treatment date) Lab Orders Start: 11-14-2022 End: 11-14-2022 Patient encounter procedure Nino Ivy MD Work Phone: Radiation Oncology Comment on above: Oropharnyx cancer (H CC) (Primary Dx) Start: 11-14-2022 Radiation Oncology Note Nino Ivy MD Work Phone: Radiation Oncology Comment on above: Simulation Note Treatment Planning Start: 11-14-2022 End: 11-14-2022 Subsequent hospital visit by physician Nino Ivy MD Work Phone: Radiology Pet CT Start: 11-11-2022 End: 11-11-2022 Subsequent hospital visit by physician Arrival Time Radiology Work Phone: Radiology Pet CT Comment on above: 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] Start: 11-04-2022 End: 11-04-[address] Work Phone: [facility] Start: 11-04-2022 End: 11-04-20[address] Nutrition therapy Yadi Simms RD Work Phone: Nutrition Therapy Comment on above: Nutrition Assessment Start: 11-03-2022 Telephone encounter Nancie ventura [facility] Work Phone: [facility] HB-3 Comment on above: Medication Authoriza tion (Ondansetron ) Appointment Start: 11-03-2022 End: 11-03-2022 Patient encounter procedure Nino Ivy MD Work Phone: Radiation Oncology Comment on [...] encounter procedure Elizabeth Borjas MD Work Phone: [facility] Start: 11-01-2022 Patient encounter procedure [facility] Provider [facility] Department Start: 10-31-2022 Telephone encounter Nino Ivy MD Work Phone: Radiation Oncology Comment on above: Patient Update Start: 10-27-2022 ambulatory Janene Miller LPN Radia tion Oncology Comment on above: Patient Education Start: 10-27-2022 End: 10-27-2022 Patient encounter procedure Nino Ivy MD Work Phone: Radiation Oncology Comment on above: Oropharnyx cancer (H CC) (Primary Dx) Start: 10-27-2022 Telephone encounter G Alex Ivy MD Work Phone: Cancer Appts Comment on above: Appointment Start: 10-18-2022 End: 10-18-[address] ENOCH FORBES Facility:[facility] Start: 10-16-2022 Encounter for preprocedural cardiovascular examination DR ENOCH FORBES [facility] Start: 10-16-2022 Encounter for preprocedural laboratory examination DR ENOCH FORBES [facility] Start: 10-13-2022 End: 10-14-[address] ENOCH FORBES Facility:[facility] Start: 10-13-2022 End: 10-14-2022 Encounter for preprocedural laboratory examination DR ENOCH FORBES Facility:[facility] Start: 09-19-2022 End: 09-19-[address] JULIAN BURTON . Facility:[facility] Start: 09-09-2022 End: 09-10-[address] JULIAN BURTON . Facility:[facility] Start: 08-10-2022 Encounter for genera l adult medical examination without abnormal findings DR JULIAN BURTON . [facility] Start: 08-06-2022 End: 08-07-[address] JULIAN BURTON . Facility:[facility] Start: 08-06-2022 End: 08-07-2022 Encounter for general adult medical examination without abnormal findings DR JULIAN BURTON . Facility:[facility] Start: 06-10-2022 End: 06-10-2022 Patient encounter procedure Albertmorris Da Silvamons [facility] [place] Start: 04-20-2022 End: 04-21-[address] NICOLA Longoria Facility: Procedures Date Procedure Procedure Detail Performing Clinician Start: 05-29-2025 Blood count complete auto&auto difrntl wbc Lakia Medina MD Work Phone: Start: 04-18-2025 Blood count complete auto&auto difrntl wbc Lakia Medina MD Work Phone: Start: 02-20-2025 Ct abdomen w/contrast material Tayla Ellsworth MD Work Phone: Start: 02-20-2025 Ct thorax w/contrast material Tayla Ellsworth MD Work Phone: Start: 01-24-2025 Blood count complete auto&auto difrntl wbc Lakia Medina MD Work Phone: Start: 10-31-2024 Ct thorax w/o contrast material Tayla Ellsworth MD Work Phone: Start: 06-28-2024 Spmtry w/vc expiratory marcus w/wo mxml vol vntj Tayla Ellsworth MD Work Phone: Start: 05-03-2024 Ct abdomen & pelvis w/contrast material Tremaine Gomez PA-C Work Phone: Start: 05-03-2024 Ct thorax w/contrast material Tremaine trevino PA-C Work Phone: Start: 04-12-2024 MRI of head MD Julian Burton Work Phone: Start: 03-26-2024 Adrenocorticotropic hormone acth Trmeaine Dowling Selma PA-C Work Phone: Start: 02-13-2024 Blood count complete auto&auto difrntl wbc Whitney Tang ADAMES Work Phone: Start: 12-08-2023 Ct abdomen & pelvis w/contrast material Elizabeth oBrjas MD Work Phone: Start: 12-08-2023 Ct thorax w/contrast material Elizabeth galicia MD Work Phone: Start: 12-08-2023 CREATININE BLD Elizabeth Borjas MD Work Phone: Start: 09-22-[address] attenuation skull base mid-thigh Elizabeth Borjas MD Work Phone: Start: 09-22-2023 Gluc bld gluc mntr dev cleared fda spec home use [facility] Provider Start: 08-30-2023 Brnchsc incl fluor gdnce dx w/cell washg spx [facility] Provider Start: 08-24-2023 Ct thorax w/o contrast material Elke Alexander MD Work Phone: Start: 07-18-2023 Ct thorax w/o contrast material Elizabeth cheung MD Work Phone: Start: 06-28-2023 MRI-US fusion guided prostate biopsy Norma Craig Start: 04-14-[address] attenuation skull base mid-thigh Tremaine Mckinneyer PA-C Work Phone: Start: 04-14-2023 End: 04-14-2023 Blood count complete auto&auto difrntl wbc Tremaine Mckinneyer PA-C Work Phone: Start: 11-21-2022 Blood count complete auto&auto difrntl wbc Tremaine Dowling Selma PA-C Work Phone: Start: 11-11-[address] attenuation skull base mid-thigh Nino Ivy MD Work Phone: Start: 11-11-2022 Gluc bld gluc mntr dev cleared fda spec home use [facility] Provider Start: 09-16-2021 Transrectal biopsy of prostate using ultrasound guidance Philipprobi Rosie Colonoscopy Philipprobi Avinashfrances jassi Tonsillectomy Philipprobi Avinashgermaine rhoda Plan of Treatment Date Care Activity Detail Author Start: 05-29-2028 Diabetes Screening Diabetes Screenin g [facility] Start: 04-18-2028 Diabetes Screening Diabetes Screenin g [facility] [place] Start: 03-07-2028 Diabetes Screening Diabetes Screenin g [facility] Start: 01-25-2028 Diabetes Screening Diabetes Screenin g [facility] Start: 12-14-2027 Diabetes Screening Diabetes Screenin g [facility] Start: 12-08-2027 PROSTATE CANCER SCREENING DISCUSSION PROSTATE CANCER SCREENING DISCUSSION [facility] [place] Start: 12-08-2027 Prostate specific antigen measurement Prostate Cancer Screening Discussion [facility] Start: 11-01-2027 Diabetes Screening Diabetes Screenin g [facility] [place] Start: 09-13-2027 Diabetes Screening Diabetes Screenin g [facility] [place] Start: 08-02-2027 Diabetes Screening Diabetes Screenin g [facility] Start: 06-20-2027 Diabetes Screening Diabetes Screenin g [facility] Start: 05-08-2027 Diabetes Screening Diabetes Screenin g [facility] Start: 03-26-2027 Diabetes Screening Diabetes Screenin g [facility] [place] Start: 02-12-2027 Diabetes Screening Diabetes Screenin g [facility] [place] Start: 01-01-2027 Diabetes Screening Diabetes Screenin g [facility] Start: 12-11-2026 Diabetes Screening Diabetes Screenin g [facility] Start: 11-14-2026 Diabetes Screening Diabetes Screenin g [facility] Start: 09-26-2026 Diabetes Screening Diabetes Screenin g [facility] Start: 07-25-2026 Diabetes Screening Diabetes Screenin g [facility] Start: 05-29-2026 Complete blood count Hemoglobin/Hilario [facility] Start: 05-29-2026 Creatinine measurement Serum Creatin ine [facility] Start: 04-18-2026 Complete blood count Hemoglobin/Hilario [facility] Start: 04-18-2026 Creatinine measurement Serum Creatin ine [facility] Start: 04-14-2026 DIABETES SCREEN DIABETES SCREEN [facility] Start: 03-07-2026 BP Controlled (<130/80) BP Controlle d (<130/80) [facility] Start: 03-07-2026 Creatinine measurement Serum Creatin ine [facility] Start: 02-20-2026 BP Controlled (<130/80) BP Controlle d (<130/80) [facility] Start: 01-24-2026 Complete blood count Hemoglobin/Hilario tocrit [facility] Start: 01-24-2026 Creatinine measurement Serum Creatin ine [facility] Start: 01-20-2026 DIABETES SCREEN DIABETES SCREEN [facility] Start: 01-16-2026 End: 05-28-2026 BIOAVAILABLE TESTOSTERONE, ADULT MALE BIOAVAILABLE TESTOSTERONE, ADULT MALE Lab Routine Abnormal FSH level Expected: 01/16/2026, Expires: 05/28/2026 [facility] Comment on above: Expected: 01/16/2026 , Expires: 05/28/2026 Start: 01-16-2026 End: 05-28-2026 Follitropin [Units/volume] in Serum or Plasma FOLLICLE STIMULATING HORMONE Lab Routine Abnormal FSH level Expected: 01/16/2026, Expires: 05/28/2026 [facility] Work Phone: Comment on above: Expected: 01/16/2026 , Expires: 05/28/2026 Start: 01-16-2026 End: 05-28-2026 Lutropin [Units/volume] in Serum or Plasma LUTEINIZING HORMONE Lab Routine Abnormal FSH level Expected: 01/16/2026, Expires: 05/28/2026 [facility] Comment on above: Expected: 01/16/2026 , Expires: 05/28/2026 Start: 01-16-2026 End: 05-28-2026 Thyrotropin [Units/volume] in Serum or Plasma THYROID STIMULATING HORMONE Lab Routine Acquired hypothyroidism Expected: 01/16/2026, Expires: 05/28/2026 [facility] Comment on above: Expected: 01/16/2026 , Expires: 05/28/2026 Start: 01-13-2026 DIABETES SCREEN DIABETES SCREEN [facility] Start: 01-11-2026 DIABETES SCREEN DIABETES SCREEN [facility] Start: 01-10-2026 BP Controlled (<130/80) BP Controlle d (<130/80) [facility] Start: 01-04-2026 DIABETES SCREEN DIABETES SCREEN [facility] Start: 12-28-2025 DIABETES SCREEN DIABETES SCREEN [facility] Start: 12-14-2025 DIABETES SCREEN DIABETES SCREEN [facility] Start: 12-13-2025 Creatinine measurement Serum Creatin ine [facility] Start: 12-07-2025 DIABETES SCREEN DIABETES SCREEN [facility] Start: 11-29-2025 DIABETES SCREEN DIABETES SCREEN [facility] Start: 11-21-2025 DIABETES SCREEN DIABETES SCREEN [facility] Start: 11-01-2025 BP Controlled (<130/80) BP Controlle d (<130/80) [facility] Start: 11-01-2025 Complete blood count Hemoglobin/Hilario tocrit [facility] Start: 11-01-2025 Creatinine measurement Serum Creatin ine [facility] Start: 10-31-2025 BP Controlled (<130/80) BP Controlle d (<130/80) [facility] Start: 10-31-2025 Screening for malign ant neoplasm of lung Lung Cancer Screening [facility] Start: 09-13-2025 BP Controlled (<130/80) BP Controlle d (<130/80) [facility] Start: 09-13-2025 Creatinine measurement Serum Creatin ine [facility] Start: 08-22-2025 End: 08-22-2025 Follow-up encounter Hematology/Oncology Comment on above: 12 week follow up la b chemotx Keytruda Start: 08-22-2025 End: 08-22-2025 Patient encounter procedure 08/22/2025 1:15 PM EST Office Visit [facility] [address] [place] [address] [place] [address] lab [facility] Comment on above: lab Start: 08-09-2025 BP Controlled (<130/80) BP Controlle d (<130/80) [facility] [place] Start: 08-02-2025 Complete blood count Hemoglobin/Hilario tocrit [facility] [place] Start: 08-02-2025 Creatinine measurement Serum Creatin ine [facility] [place] Start: 08-01-2025 End: 08-01-2025 Patient encounter procedure 08/01/2025 1:00 PM EDT Office Visit NOMJassi RODRIGUEZ [address] [place] [address] Enoch Forbes MD 112 [facility] [address] [place] [address] NOMJassi RODRIGUEZ Start: 07-11-2025 End: 07-11-2025 ambulatory 07/11/2025 1:30 PM EDT Infusion Center Hematology/Oncology [address] [place] [address] chemotx Keytruda Hematology/Oncology Comment on above: chemotx Keytruda Start: 06-20-2025 Complete blood count Hemoglobin/Hilario tocrit [facility] [place] Start: 06-20-2025 Creatinine measurement Serum Creatin ine [facility] [place] Start: 06-09-2025 Influenza vaccination N [facility] Start: 06-05-2025 End: 06-05-2025 Patient encounter procedure Radiology Comment on above: C79.89 Start: 05-30-2025 End: 05-30-2025 Follow-up encounter Hematology/Oncology Comment on above: 12 week follow up la b chemotx Keytruda Start: 05-30-2025 End: 05-30-2025 Patient encounter procedure 05/30/2025 1:00 PM EDT Office Visit [facility] [address] [facility] [place] [address] 12 week follow up lab chemotx Keytruda [facility] Comment on above: 12 week follow up la b chemotx Keytruda Start: 05-29-2025 End: 05-29-2025 Follow-up encounter Hematology/Oncology Comment on above: 12 week follow up la b chemotx Keytruda Start: 05-29-2025 End: 05-29-2025 Patient encounter procedure 05/29/2025 8:15 AM EDT Appointment Radiology Pet CT [address] [facility] [place] [address] 12 week follow up lab chemotx Keytruda Radiology Pet CT Comment on above: 12 week follow up la b chemotx Keytruda Start: 05-28-2025 End: 05-28-2025 ambulatory 05/28/2025 1:00 PM EDT [facility] Endocrinology [address] [facility] [address] Chuck Jones MD [address] [address] Return in about 3 months (around 04/11/2025). Endocrinology Comment on above: Return in about 3 mo nths (around 04/11/2025). Start: 05-09-2025 End: 05-09-2025 Patient encounter procedure 05/09/2025 11:40 AM EDT Office Visit End[facility] [address] [facility] [place] [address] Chuck Jones MD [address] [address] Return in about 3 months (around 04/11/2025). Endocrinology Comment on above: Return in about 3 mo nths (around 04/11/2025). Start: 05-08-2025 Complete blood count Hemoglobin/Hilario tocrit [facility] [place] Start: 05-08-2025 Creatinine measurement Serum Creatin ine [facility] [place] Start: 05-03-2025 Screening for malign ant neoplasm of lung Lung Cancer Screening [facility] [place] Start: 05-02-2025 End: 05-02-2025 Patient encounter procedure 05/02/2025 1:00 PM EDT Office Visit [facility] JAVIER RODRIGUEZ [address] [facility] [address] [place] [address] Enoch Forbes MD 112 [facility] [address] [place] [address] Arrived NOMS JAVIER RODRIGUEZ Comment on above: Arrived Start: 04-18-2025 End: 04-18-2025 ambulatory 04/18/2025 1:30 PM EDT Infusion Center Hematology/Oncology [address] [place] [address] [place] [address] 6 week lab chemotx Keytruda Hematology/Oncology Comment on above: 6 week lab chemotx K eytruda Start: 04-08-2025 End: 04-11-2025 Thyrotropin [Units/volume] in Serum or Plasma THYROID STIMULATING HORMONE Lab Routine Acquired hypothyroidism Expected: 04/08/2025, Expires: 04/11/2025 [facility] Work Phone: Comment on above: Expected: 04/08/2025 , Expires: 04/11/2025 Start: 03-07-2025 End: 03-07-2025 Follow-up encounter Hematology/Oncology Comment on above: 12 week follow up la b chemotx Keytruda Start: 03-07-2025 End: 03-07-2025 Patient encounter procedure 03/07/2025 1:45 PM EDT Office Visit [facility] [address] [place] [address] 12 week follow up lab chemotx Keytruda [facility] Comment on above: 12 week follow up la b chemotx Keytruda Start: 02-20-2025 End: 02-20-2025 Patient encounter procedure 02/20/2025 10:30 AM EDT Office Visit Radiation Oncology [address] [place] [address] [place] [address] [place] [address] C79.89 Radiation Oncology Comment on above: C79.89 Start: 02-20-2025 End: 02-20-2025 Patient encounter procedure Radiology Comment on above: C79.89 Start: 02-03-2025 End: 02-03-2025 ambulatory 02/03/2025 8:00 AM EDT Infusion Center Infusion [address] [place], [place] [id number] STIM TEST Infusion Comment on above: STIM TEST Start: 01-24-2025 End: 01-24-2025 Follow-up encounter 01/24/2025 1:30 PM EDT Infusion Center Hematology/Oncology [address] [place] [address] 12 week follow up lab chemotx Keytruda Hematology/Oncology Comment on above: 12 week follow up la b chemotx Keytruda Start: 01-03-2025 End: 01-03-2025 Patient encounter procedure 01/03/2025 4:40 PM EDT Office Visit Endocrinology [address] [facility] [place] [address] Chuck Jones MD [address] [address] Follow up Endocrinology Comment on above: Follow up Start: 12-13-2024 End: 12-13-2024 ambulatory Hematology/Oncology Comment on above: 6 week lab chemotx K eytruda Start: 12-13-2024 End: 12-13-2024 Patient encounter procedure 12/13/2024 1:15 PM EST Office Visit [facility] [address] [place] [address] [place] [address] 6 week lab chemotx Keytruda [facility] Comment on above: 6 week lab chemotx K eytruda Start: 12-07-2024 Screening for malign ant neoplasm of lung Lung Cancer Screening [facility] [place] Start: 12-06-2024 End: 12-06-2024 Patient encounter procedure 12/06/2024 2:40 PM EST Office Visit Endocrinology [address] [place] [address] Chuck Jones MD [address] [address] Follow up Endocrinology Comment on above: Follow up Start: 11-01-2024 End: 11-01-2024 ambulatory Hematology/Oncology Comment on above: 7 week lab chemotx K eytruda Start: 11-01-2024 End: 11-01-2024 Patient encounter procedure BRAD RODRIGUEZ Comment on above: 7 week lab chemotx K eytruda Multiple providers Start: 10-31-2024 End: 10-31-2024 Patient encounter procedure Radiology Comment on above: Neoplasm of lung [D4 9.1] F/U Start: 10-14-2024 End: 08-09-2025 BIOAVAILABLE TESTOSTERONE, ADULT MALE BIOAVAILABLE TESTOSTERONE, ADULT MALE Lab Routine Abnormal FSH level Abnormal LH level Expected: 10/14/2024, Expires: 08/09/2025 [facility] Work Phone: Comment on above: Expected: 10/14/2024 , Expires: 08/09/2025 Start: 10-14-2024 End: 08-09-2025 Cortisol [Mass/volume] in Serum or Plasma CORTISOL, SERUM Lab Routine Abnormal FSH level Abnormal LH level Expected: 10/14/2024, Expires: 08/09/2025 [facility] [place] Comment on above: Expected: 10/14/2024 , Expires: 08/09/2025 Start: 10-14-2024 End: 08-09-2025 Follitropin [Units/volume] in Serum or Plasma FOLLICLE STIMULATING HORMONE Lab Routine Abnormal FSH level Abnormal LH level Expected: 10/14/2024, Expires: 08/09/2025 [facility] Comment on above: Expected: 10/14/2024 , Expires: 08/09/2025 Start: 10-14-2024 End: 08-09-2025 Lutropin [Units/volume] in Serum or Plasma LUTEINIZING HORMONE Lab Routine Abnormal FSH level Abnormal LH level Expected: 10/14/2024, Expires: 08/09/2025 [facility] Comment on above: Expected: 10/14/2024 , Expires: 08/09/2025 Start: 10-14-2024 End: 08-09-2025 Prolactin [Mass/volume] in Serum or Plasma PROLACTIN Lab Routine Abnormal FSH level Abnormal LH level Expected: 10/14/2024, Expires: 08/09/2025 [facility] Comment on above: Expected: 10/14/2024 , Expires: 08/09/2025 Start: 10-14-2024 End: 08-09-2025 Thyrotropin [Units/volume] in Serum or Plasma THYROID STIMULATING HORMONE Lab Routine Acquired hypothyroidism Abnormal FSH level Abnormal LH level Expected: 10/14/2024, Expires: 08/09/2025 [facility] Comment on above: Expected: 10/14/2024 , Expires: 08/09/2025 Start: 10-14-2024 End: 08-09-2025 Thyroxine (T4) free [Mass/volume] in Serum or Plasma T4 FREE/FREE THYROXINE Lab Routine Acquired hypothyroidism Abnormal FSH level Abnormal LH level Expected: 10/14/2024, Expires: 08/09/2025 [facility] Comment on above: Expected: 10/14/2024 , Expires: 08/09/2025 Start: 09-20-2024 End: 09-20-2024 Patient encounter procedure [facility] E[facility] MICHAEL Comment on above: Arrived Start: 09-13-2024 End: 09-13-2024 ambulatory Hematology/Oncology Comment on above: 6wk f/u chemo and la bsper patient wants fridays 6 week lab chemotx K eytruda Start: 09-13-2024 End: 09-13-2024 Patient encounter procedure 09/13/2024 12:45 PM EST Office Visit [facility] [address] [place] [address] [place] [address] 6 week lab chemotx Keytruda [facility] Comment on above: 6 week lab chemotx K eytruda Start: 09-10-2024 End: 09-10-2024 Patient encounter procedure 09/10/2024 9:20 AM EST Office Visit Endocrinology [address] [place] [address] Chuck Jones MD [address] [address] Return in about 1 month (around 06/10/2024). Endocrinology Comment on above: Return in about 1 mo nth (around 06/10/2024). Start: 08-24-2024 Influenza vaccination Lung Cancer [facility] Start: 08-20-2024 End: 08-20-2024 Patient encounter procedure 08/20/2024 1:00 PM EST Office Visit [facility] E[facility] [address] [facility] [address] [place] [id number] Enoch Forbes MD 112 [facility] [address] [place] [address] [facility] Start: 08-16-2024 End: 08-16-2024 Patient encounter procedure 08/16/2024 1:30 PM EST Office Visit [facility] JAVIER RODRIGUEZ [address] [facility] [address] [facility] [place] [address] Enoch Forbes MD 112 [facility] [address] [place] [address] NOMJassi RODRIGUEZ Start: 08-09-2024 End: 08-09-2024 Patient encounter procedure 08/09/2024 2:20 PM EDT Office Visit Endocrinology [address] [place] [address] Chuck Jones MD 57[address] [facility] [address] [place] [address] Return in about 1 month (around 06/10/2024). Endocrinology Comment on above: Return in about 1 mo nth (around 06/10/2024). Start: 08-02-2024 End: 08-02-2024 Patient encounter procedure 08/02/2024 2:40 PM EDT Office Visit Endocrinology [address] [place] [address] Chuck Jones MD [address] [address] Return in about 1 month (around 06/10/2024). Endocrinology Comment on above: Return in about 1 mo nth (around 06/10/2024). Start: 08-02-2024 End: 08-02-2024 ambulatory Hematology/Oncology Comment on above: 6wk f/u chemo and la bsper patient wants fridays 6 week lab ANNY chemo tx Keytruda Start: 08-02-2024 End: 08-02-2024 Patient encounter procedure 08/02/2024 12:45 PM EDT Office Visit [facility] [address] [place] [address] [place] [address] 6 week lab ANNY chemotx Keytruda [facility] Comment on above: 6 week lab ANNY chemo tx Keytruda Start: 07-18-2024 Influenza vaccination Lung Cancer Ct kathryn [facility] Start: 07-12-2024 End: 07-12-2024 Patient encounter procedure Endocrinology Comment on above: Return in about 1 mo nth (around 06/10/2024). 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] Start: 06-28-2024 End: 06-28-2024 Patient encounter procedure Radiation Oncology Comment on above: Location: SIMULATOR CT-1 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] SBRT RT LUNG *BODYFI X* consent done n/s Start: 06-28-2024 End: 06-28-2024 Nursing evaluation of patient and report 06/28/2024 9:00 AM EDT Nurse Visit Radiation Oncology [address] [place] [address] Main, Nurse Radt [address] [place] [address] Location: NURSING CA-LL Radiation Oncology Comment on above: Location: NURSING CA -LL Start: 06-20-2024 End: 06-20-2024 ambulatory Hematology/Oncology Comment on above: 6 week lab ANNY chemo tx Keytruda Start: 06-20-2024 End: 06-20-2024 Patient encounter procedure 06/20/2024 1:30 PM EDT Office Visit [facility] [address] [place] [address] [place] [address] 6 week lab ANNY chemotx Keytruda [facility] Comment on above: 6 week lab ANNY chemo tx Keytruda Start: 06-11-2024 End: 06-11-2024 Patient encounter procedure 06/11/2024 2:30 PM EDT Office Visit Radiation Oncology [address] [place] [address] [place] [address] [place] [address] 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] Radiation Oncology Comment on above: 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] Start: 06-09-2024 Covid-19 Vaccine ( season) Covid-19 Vaccine ( season) [facility] Start: 06-09-2024 Influenza vaccination [facility] [place] Start: 06-07-2024 End: 06-07-2024 Patient encounter procedure 06/07/2024 1:40 PM EDT Office Visit Endocrinology [address] [place] [address] Chuck Jones MD [address] [facility] [address] [place] [address] New Referral for Adrenal Insufficiency Endocrinology Comment on above: New Referral for Adr enal Insufficiency Start: 05-21-2024 End: 05-21-2024 Admission to same day surgery center 05/21/2024 10:30 AM EDT - 05/21/2024 12:00 PM EDT Surgery [facility] End[facility] - ENDO [address] [place] [address] Ras Starr MD [address] [place] [address] BRONCHOSCOPY,RIGID/FLEX IBLE W/ FLUORO,W/ENDOBRONCHIAL ULTRASOUND (EBUS) GUIDED TRANSTRACHEAL/ TRANSBRONCHIAL ASPIRATION/BIOPSY,1 OR 2 MEDIASTINAL AND/OR HILAR LYMPH NODE STATIONS/STRUCTURES [facility] Endoscopy - ENDO Comment on above: BRONCHOSCOPY,RIGID/F LEXIBLE W/ FLUORO,W/ENDOBRONCHIAL ULTRASOUND (EBUS) GUIDED TRANSTRACHEAL/ TRANSBRONCHIAL ASPIRATION/BIOPSY,1 OR 2 MEDIASTINAL AND/OR HILAR LYMPH NODE STATIONS/STRUCTURES Start: 05-21-2024 End: 05-21-2024 [facility] ebus guided sampl 1/2 node station/strux BRONCHOSCOPY,RIGID/FLEX IBLE W/ FLUORO,W/ENDOBRONCHIAL ULTRASOUND (EBUS) GUIDED TRANSTRACHEAL/ TRANSBRONCHIAL ASPIRATION/BIOPSY,1 OR 2 MEDIASTINAL AND/OR HILAR LYMPH NODE STATIONS/STRUCTURES Adenopathy 05/21/2024 10:30 AM EDT [facility] Start: 05-21-2024 Subsequent hospital visit by physician [facility] Endoscopy - ENDO Comment on above: Adenopathy [R59.9] Start: 05-17-2024 End: 05-17-2024 ambulatory 05/17/2024 9:30 AM EDT [facility] Pulmonology [address] [place] [address] [place] [address] [place] [address] H/P BRONCH 05/21 Pulmonology Comment on above: H/P BRONCH 05/21 Start: 05-17-2024 End: 05-17-2024 Patient encounter procedure 05/17/2024 8:30 AM EDT Office Visit [facility] [address] [place] [address] lab [facility] Comment on above: lab Start: 05-17-2024 End: 05-17-2024 ambulatory 05/17/2024 8:15 AM EDT Results Only [facility] [address] [place] [address] [facility] Start: 05-16-2024 End: 05-16-2024 Nursing evaluation of patient and report 05/16/2024 3:00 PM EDT Nurse Visit Hematology/Oncology [address] [facility] [place] [address] Mor Tafoya Nurse Hilario [address] [facility] [place] [address] ekg Hematology/Oncology Comment on above: ekg Start: 05-16-2024 End: 05-16-2024 Patient encounter procedure 05/16/2024 2:45 PM EDT Office Visit [facility] [address] [place] [address] lab [facility] Comment on above: lab Start: 05-11-2024 End: 06-10-2024 BIOAVAILABLE TESTOSTERONE, ADULT MALE BIOAVAILABLE TESTOSTERONE, ADULT MALE Lab Routine Adrenal insufficiency (HCC) Acquired hypothyroidism Expected: 05/11/2024, Expires: 06/10/2024 [facility] Work Phone: Comment on above: Expected: 05/11/2024 , Expires: 06/10/2024 Start: 05-11-2024 End: 06-10-2024 Cortisol [Mass/volume] in Serum or Plasma CORTISOL, SERUM Lab Routine Adrenal insufficiency (HCC) Acquired hypothyroidism Expected: 05/11/2024, Expires: 06/10/2024 [facility] Comment on above: Expected: 05/11/2024 , Expires: 06/10/2024 Start: 05-11-2024 End: 06-10-2024 Follitropin [Units/volume] in Serum or Plasma FOLLICLE STIMULATING HORMONE Lab Routine Adrenal insufficiency (HCC) Acquired hypothyroidism Expected: 05/11/2024, Expires: 06/10/2024 [facility] Comment on above: Expected: 05/11/2024 , Expires: 06/10/2024 Start: 05-11-2024 End: 06-10-2024 INSULIN LIK GR FAC I INSULIN LIK GR FAC I Lab Routine Adrenal insufficiency (HCC) Acquired hypothyroidism Expected: 05/11/2024, Expires: 06/10/2024 [facility] Comment on above: Expected: 05/11/2024 , Expires: 06/10/2024 Start: 05-11-2024 End: 06-10-2024 Lutropin [Units/volume] in Serum or Plasma LUTEINIZING HORMONE Lab Routine Adrenal insufficiency (HCC) Acquired hypothyroidism Expected: 05/11/2024, Expires: 06/10/2024 [facility] Comment on above: Expected: 05/11/2024 , Expires: 06/10/2024 Start: 05-11-2024 End: 06-10-2024 Prolactin [Mass/volume] in Serum or Plasma PROLACTIN Lab Routine Adrenal insufficiency (HCC) Acquired hypothyroidism Expected: 05/11/2024, Expires: 06/10/2024 [facility] Comment on above: Expected: 05/11/2024 , Expires: 06/10/2024 Start: 05-11-2024 End: 06-10-2024 Thyroxine (T4) free [Mass/volume] in Serum or Plasma T4 FREE/FREE THYROXINE Lab Routine Adrenal insufficiency (HCC) Acquired hypothyroidism Expected: 05/11/2024, Expires: 06/10/2024 [facility] Comment on above: Expected: 05/11/2024 , Expires: 06/10/2024 Start: 05-10-2024 End: 08-09-2024 THYROID PEROXIDASE ANTIBODY THYROID PEROXIDASE ANTIBODY Lab Routine Acquired hypothyroidism Expected: 05/10/2024, Expires: 08/09/2024 [facility] Comment on above: Expected: 05/10/2024 , Expires: 08/09/2024 Start: 05-10-2024 End: 05-10-2024 Patient encounter procedure 05/10/2024 10:00 AM EDT Office Visit Endocrinology [address] [place] [address] Chuck Jones MD [address] [facility] [address] [place] [address] New Referral for Adrenal Insufficiency Endocrinology Comment on above: New Referral for Adr enal Insufficiency Start: 05-08-2024 End: 05-08-2024 Follow-up encounter Hematology/Oncology Comment on above: 6 week lab follow up and chemotx Keytruda Start: 05-08-2024 End: 05-08-2024 Patient encounter procedure 05/08/2024 1:15 PM EDT Office Visit [facility] [address] [place] [address] [place] [address] 6 week lab follow up and chemotx Keytruda [facility] Comment on above: 6 week lab follow up and chemotx Keytruda Start: 05-07-2024 End: 08-06-2024 CBC W Auto Differential panel - Blood COMPLETE BLOOD COUNT AND DIFFERENTIAL Lab 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 Expected: 05/07/2024 (Approximate), Expires: 08/06/2024 [facility] Comment on above: Expected: 05/07/2024 (Approximate), Expires: 08/06/2024 Start: 05-07-2024 End: 08-06-2024 Comprehensive metabolic 2000 panel - Serum or Plasma COMPREHENSIVE METABOLIC PANEL Lab 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 Expected: 05/07/2024 (Approximate), Expires: 08/06/2024 [facility] Work Phone: Comment on above: Expected: 05/07/2024 (Approximate), Expires: 08/06/2024 Start: 05-07-2024 End: 08-06-2024 Thyrotropin [Units/volume] in Serum or Plasma THYROID STIMULATING HORMONE Lab 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 Expected: 05/07/2024 (Approximate), Expires: 08/06/2024 [facility] Comment on above: Expected: 05/07/2024 (Approximate), Expires: 08/06/2024 Start: 05-03-2024 End: 05-03-2024 Patient encounter procedure 05/03/2024 7:45 AM EDT Appointment Radiology Pet CT [address] [place] [address] [place] [address] CT CAP W IV Radiology Pet CT Comment on above: CT CAP W IV Start: 03-26-2024 End: 06-25-2024 Cortisol [Mass/volume] in Serum or Plasma [facility] Comment on above: Expected: 03/26/2024 , Expires: 06/25/2024 Start: 03-26-2024 End: 03-26-2024 Follow-up encounter Hematology/Oncology Comment on above: 6 week lab follow up and chemotx Keytruda Start: 03-26-2024 End: 03-26-2024 Patient encounter procedure 03/26/2024 1:15 PM EDT Office Visit [facility] [address] [place] [address] 6 week lab follow up and chemotx Keytruda [facility] Comment on above: 6 week lab follow up and chemotx Keytruda Start: 03-12-2024 End: 06-11-2024 CBC W Auto Differential panel - Blood COMPLETE BLOOD COUNT AND DIFFERENTIAL Lab 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 Expected: 03/12/2024, Expires: 06/11/2024 [facility] Comment on above: Expected: 03/12/2024 , Expires: 06/11/2024 Start: 03-12-2024 End: 06-11-2024 Comprehensive metabolic 2000 panel - Serum or Plasma COMPREHENSIVE METABOLIC PANEL Lab 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 Expected: 03/12/2024, Expires: 06/11/2024 [facility] Work Phone: Comment on above: Expected: 03/12/2024 , Expires: 06/11/2024 Start: 03-12-2024 End: 06-11-2024 Thyrotropin [Units/volume] in Serum or Plasma THYROID STIMULATING HORMONE Lab 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 Expected: 03/12/2024, Expires: 06/11/2024 [facility] Comment on above: Expected: 03/12/2024 , Expires: 06/11/2024 Start: 01-19-2024 End: 01-19-2024 Patient encounter procedure 01/19/2024 1:30 PM EDT Office Visit [facility] JAVIER RODRIGUEZ [address] [facility] [address] [place] [address] Enoch Forbes MD 112 [facility] [address] [place] [address] [facility] JAVIER RODRIGUEZ Start: 01-02-2024 End: 04-02-2024 CBC W Auto Differential panel - Blood [facility] Work Phone: Comment on above: Expected: 01/02/2024 (Approximate), Expires: 04/02/2024 Expected: 01/02/2024 , Expires: 04/02/2024 Start: 01-02-2024 End: 04-02-2024 Comprehensive metabolic 2000 panel - Serum or Plasma [facility] Work Phone: Comment on above: Expected: 01/02/2024 (Approximate), Expires: 04/02/2024 Expected: 01/02/2024 , Expires: 04/02/2024 Start: 01-02-2024 End: 04-02-2024 Thyrotropin [Units/volume] in Serum or Plasma [facility] Work Phone: Comment on above: Expected: 01/02/2024 (Approximate), Expires: 04/02/2024 Expected: 01/02/2024 , Expires: 04/02/2024 Start: 12-15-2023 End: 12-15-2023 Patient encounter procedure 12/15/2023 2:20 PM EST Office Visit [facility] [address] [facility] [address] [place] [address] Enoch Forbes MD [address] [facility] [address] [place] [address] [facility] Start: 12-05-2023 End: 03-05-2024 CBC W Auto Differential panel - Blood CBC + DIFF Lab Routine Oropharnyx cancer (HCC) Expected: 12/05/2023 (Approximate), Expires: 03/05/2024 [facility] Work Phone: Comment on above: Expected: 12/05/2023 (Approximate), Expires: 03/05/2024 Start: 12-05-2023 End: 03-05-2024 Comprehensive metabolic 2000 panel - Serum or Plasma COMP METABOLIC PANEL Lab Routine Oropharnyx cancer (HCC) Expected: 12/05/2023 (Approximate), Expires: 03/05/2024 [facility] Work Phone: Comment on above: Expected: 12/05/2023 (Approximate), Expires: 03/05/2024 Start: 12-05-2023 End: 12-13-2024 Ct abdomen & pelvis w/contrast material CT ABD/PEL W IVCON Radiology Routine Oropharnyx cancer (HCC) Expected: 12/05/2023 (Approximate), Expires: 12/13/2024 [facility] Work Phone: Comment on above: Expected: 12/05/2023 (Approximate), Expires: 12/13/2024 Start: 12-05-2023 End: 12-13-2024 CT CHEST W IVCON CT CHEST W IVCON Radiology Routine Oropharnyx cancer (HCC) Expected: 12/05/2023 (Approximate), Expires: 12/13/2024 [facility] Work Phone: Comment on above: Expected: 12/05/2023 (Approximate), Expires: 12/13/2024 Start: 12-05-2023 End: 03-05-2024 Thyrotropin [Units/volume] in Serum or Plasma TSH BLD Lab Routine Oropharnyx cancer (HCC) Expected: 12/05/2023 (Approximate), Expires: 03/05/2024 [facility] Work Phone: Comment on above: Expected: 12/05/2023 (Approximate), Expires: 03/05/2024 Start: 11-17-2023 End: 11-17-2023 Patient encounter procedure 11/17/2023 1:30 PM EST Office Visit [facility] [address] [facility] [address] [place] [address] Enoch Forbes MD [address] [facility] [address] [place] [address] Arrived [facility] Comment on above: Arrived Start: 10-17-2023 End: 01-16-2024 CBC W Auto Differential panel - Blood CBC + DIFF Lab Routine Oropharnyx cancer (HCC) Expected: 10/17/2023 (Approximate), Expires: 01/16/2024 [facility] Work Phone: Comment on above: Expected: 10/17/2023 (Approximate), Expires: 01/16/2024 Start: 10-17-2023 End: 01-16-2024 Comprehensive metabolic 2000 panel - Serum or Plasma COMP METABOLIC PANEL Lab Routine Oropharnyx cancer (HCC) Expected: 10/17/2023 (Approximate), Expires: 01/16/2024 [facility] Work Phone: Comment on above: Expected: 10/17/2023 (Approximate), Expires: 01/16/2024 Start: 10-17-2023 End: 01-16-2024 Thyrotropin [Units/volume] in Serum or Plasma TSH BLD Lab Routine Oropharnyx cancer (HCC) Expected: 10/17/2023 (Approximate), Expires: 01/16/2024 [facility] Work Phone: Comment on above: Expected: 10/17/2023 (Approximate), Expires: 01/16/2024 Start: 10-09-2023 Behavioral Health Screening Behavioral Health Screening [facility] Start: 10-09-2023 Depression Assessment Depression Ass essment [facility] Start: 08-03-2023 End: 09-01-2024 Ct thorax w/o contrast material CT CHEST WO IVCON Radiology Routine Pulmonary nodule Preoperative examination Expected: 08/03/2023, Expires: 09/01/2024 [facility] Work Phone: Comment on above: Expected: 08/03/2023 , Expires: 09/01/2024 Start: 07-19-2023 End: 09-18-2023 CBC W Auto Differential panel - Blood CBC + DIFF Lab Routine Oropharnyx cancer (HCC) Expected: 07/19/2023 (Approximate), Expires: 09/18/2023 [facility] Work Phone: Comment on above: Expected: 07/19/2023 (Approximate), Expires: 09/18/2023 Start: 07-19-2023 End: 09-18-2023 Comprehensive metabolic 2000 panel - Serum or Plasma COMP METABOLIC PANEL Lab Routine Oropharnyx cancer (HCC) Expected: 07/19/2023 (Approximate), Expires: 09/18/2023 [facility] Work Phone: Comment on above: Expected: 07/19/2023 (Approximate), Expires: 09/18/2023 Start: 07-19-2023 End: 05-17-2024 Ct thorax w/o contrast material CT CHEST WO IVCON Radiology Routine Oropharnyx cancer (HCC) Expected: 07/19/2023 (Approximate), Expires: 05/17/2024 [facility] Work Phone: Comment on above: Expected: 07/19/2023 (Approximate), Expires: 05/17/2024 Start: 06-09-2023 Influenza vaccination [facility] [place] Start: 05-16-2023 MR Prostate WO and W contrast IV [facility] Start: 05-16-2023 MR prostate wo/w con MR prostate wo/ w con [facility] Start: 03-31-2023 End: 05-31-2023 CBC W Auto Differential panel - Blood CBC + DIFF Lab Routine Oropharnyx cancer (HCC) Expected: 03/31/2023 (Approximate), Expires: 05/31/2023 [facility] Work Phone: Comment on above: Expected: 03/31/2023 (Approximate), Expires: 05/31/2023 Start: 03-31-2023 End: 05-31-2023 Comprehensive metabolic 2000 panel - Serum or Plasma COMP METABOLIC PANEL Lab Routine Oropharnyx cancer (HCC) Expected: 03/31/2023 (Approximate), Expires: 05/31/2023 [facility] Work Phone: Comment on above: Expected: 03/31/2023 (Approximate), Expires: 05/31/2023 Start: 03-31-2023 End: 02-19-2024 NM PET/CT SKULL-THIGH SUBSEQUENT NM PET/CT SKULL-THIGH SUBSEQUENT Radiology Routine Oropharnyx cancer (HCC) Expected: 03/31/2023 (Approximate), Expires: 02/19/2024 [facility] Work Phone: Comment on above: Expected: 03/31/2023 (Approximate), Expires: 02/19/2024 Start: 01-13-2023 End: 03-15-2023 Basic metabolic 2000 panel - Serum or Plasma BASIC METABOLIC PNL Lab Routine 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) Expected: 01/13/2023, Expires: 03/15/2023 [facility] Work Phone: Comment on above: Expected: 01/13/2023 , Expires: 03/15/2023 Start: 01-13-2023 End: 03-15-2023 CBC W Auto Differential panel - Blood CBC + DIFF Lab Routine 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) Expected: 01/13/2023, Expires: 03/15/2023 [facility] Work Phone: Comment on above: Expected: 01/13/2023 , Expires: 03/15/2023 Start: 01-13-2023 End: 03-15-2023 Comprehensive metabolic 2000 panel - Serum or Plasma COMP METABOLIC PANEL Lab Routine 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) Expected: 01/13/2023, Expires: 03/15/2023 [facility] Work Phone: Comment on above: Expected: 01/13/2023 , Expires: 03/15/2023 Start: 01-13-2023 End: 03-15-2023 Magnesium [Mass/volume] in Serum or Plasma MAGNESIUM BLD Lab Routine 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) Expected: 01/13/2023, Expires: 03/15/2023 [facility] Work Phone: Comment on above: Expected: 01/13/2023 , Expires: 03/15/2023 Start: 12-28-2022 End: 02-27-2023 CBC W Auto Differential panel - Blood CBC + DIFF Lab Routine Oropharnyx cancer (HCC) Expected: 12/28/2022 (Approximate), Expires: 02/27/2023 [facility] Work Phone: Comment on above: Expected: 12/28/2022 (Approximate), Expires: 02/27/2023 Start: 12-28-2022 End: 02-27-2023 Comprehensive metabolic 2000 panel - Serum or Plasma COMP METABOLIC PANEL Lab Routine Oropharnyx cancer (HCC) Expected: 12/28/2022 (Approximate), Expires: 02/27/2023 [facility] Work Phone: Comment on above: Expected: 12/28/2022 (Approximate), Expires: 02/27/2023 Start: 12-28-2022 End: 02-27-2023 Magnesium [Mass/volume] in Serum or Plasma MAGNESIUM BLD Lab Routine Oropharnyx cancer (HCC) Expected: 12/28/2022 (Approximate), Expires: 02/27/2023 [facility] Work Phone: Comment on above: Expected: 12/28/2022 (Approximate), Expires: 02/27/2023 Start: 12-14-2022 End: 02-13-2023 CBC W Auto Differential panel - Blood CBC + DIFF Lab Routine Oropharnyx cancer (HCC) Esophagitis Expected: 12/14/2022, Expires: 02/13/2023 [facility] Work Phone: Comment on above: Expected: 12/14/2022 , Expires: 02/13/2023 Start: 12-14-2022 End: 02-13-2023 Comprehensive metabolic 2000 panel - Serum or Plasma COMP METABOLIC PANEL Lab Routine Oropharnyx cancer (HCC) Esophagitis Expected: 12/14/2022, Expires: 02/13/2023 [facility] Work Phone: Comment on above: Expected: 12/14/2022 , Expires: 02/13/2023 Start: 12-14-2022 End: 02-13-2023 Magnesium [Mass/volume] in Serum or Plasma MAGNESIUM BLD Lab Routine Oropharnyx cancer (HCC) Esophagitis Expected: 12/14/2022, Expires: 02/13/2023 [facility] Work Phone: Comment on above: Expected: 12/14/2022 , Expires: 02/13/2023 Start: 12-07-2022 End: 02-06-2023 CBC W Auto Differential panel - Blood CBC + DIFF Lab Routine Oropharnyx cancer (HCC) Expected: 12/07/2022, Expires: 02/06/2023 [facility] Work Phone: Comment on above: Expected: 12/07/2022 , Expires: 02/06/2023 Start: 12-07-2022 End: 02-06-2023 Comprehensive metabolic 2000 panel - Serum or Plasma COMP METABOLIC PANEL Lab Routine Oropharnyx cancer (HCC) Expected: 12/07/2022, Expires: 02/06/2023 [facility] Work Phone: Comment on above: Expected: 12/07/2022 , Expires: 02/06/2023 Start: 12-07-2022 End: 02-06-2023 Magnesium [Mass/volume] in Serum or Plasma MAGNESIUM BLD Lab Routine Oropharnyx cancer (HCC) Expected: 12/07/2022, Expires: 02/06/2023 [facility] Work Phone: Comment on above: Expected: 12/07/2022 , Expires: 02/06/2023 Start: 11-15-2022 End: 01-15-2023 CBC W Auto Differential panel - Blood CBC + DIFF Lab Routine Oropharnyx cancer (HCC) Expected: 11/15/2022, Expires: 01/15/2023 [facility] Work Phone: Comment on above: Expected: 11/15/2022 , Expires: 01/15/2023 Start: 11-15-2022 End: 01-15-2023 Comprehensive metabolic 2000 panel - Serum or Plasma COMP METABOLIC PANEL Lab Routine Oropharnyx cancer (HCC) Expected: 11/15/2022, Expires: 01/15/2023 [facility] Work Phone: Comment on above: Expected: 11/15/2022 , Expires: 01/15/2023 Start: 11-15-2022 End: 01-15-2023 Magnesium [Mass/volume] in Serum or Plasma MAGNESIUM BLD Lab Routine Oropharnyx cancer (HCC) Expected: 11/15/2022, Expires: 01/15/2023 [facility] Work Phone: Comment on above: Expected: 11/15/2022 , Expires: 01/15/2023 Start: 10-09-2022 DEPRESSION ASSESSMENT DEPRESSION ASS ESSMENT [facility] Start: 06-09-2022 Influenza vaccination INFLUENZA (#1) [facility] Start: 10-29-2021 COVID-19 VACCINE (3 - Booster for Pfizer series) COVID-19 VACCINE (3 - Booster for Pfizer series) [facility] Start: 10-01-2021 COVID-19 VACCINE (3 - Pfizer risk series) COVID-19 VACCINE (3 - Pfizer risk series) [facility] Start: 2021 PROSTATE CANCER SCREENING DISCUSSION PROSTATE CANCER SCREENING DISCUSSION [facility] Start: 2016 Influenza vaccination LUNG CANCER SC REENING [facility] Start: 2016 SHINGRIX VACCINE (1 of 2) SHINGRIX VACCINE (1 of 2) [facility] Start: 2011 COLOGUARD (FIT-DNA) COLOGUARD (FIT-D NA) [facility] Start: 2011 Colonoscopy COLONOSCOPY [facility] Start: 2011 COLORECTAL CANCER SCREENING COLORECTAL CANCER SCREENING [facility] Start: [address] COLONOGRAPHY [facility] Start: 2011 DIABETES SCREEN DIABETES SCREEN [facility] Start: 2011 FECAL OCCULT BLOOD FECAL OCCULT BLOO D [facility] Start: 2011 Screening for malign ant neoplasm of colon [facility] Start: 2011 SIGMOIDOSCOPY SIGMOIDOSCOPY [facility] Start: 2001 Lipid 1996 panel - Serum or Plasma Lipid Screening [facility] Start: 2001 Lipid panel Lipid Screening [facility] Start: 2001 LIPID SCREEN LIPID SCREEN [facility] Start: 1985 Hepatitis B Vaccine (1 of 3 - 19+ 3-dose series) Hepatitis B Vaccine (1 of 3 - 19+ 3-dose series) [facility] Start: 1985 Pneumococcal Vaccine : 50+ (1 of 2 - PCV) Pneumococcal Vaccine: 50+ (1 of 2 - PCV) [facility] Start: 1985 SHINGRIX VACCINE (1 of 2) SHINGRIX VACCINE (1 of 2) [facility] Start: 1985 Urine microalbumin profile [facility] Start: 1984 Annual PCP Team Limnologist ladarius Disease Visit Annual PCP Team Chronic Disease Visit [facility] Start: 1984 Anxiety Screening Anxiety Screening [facility] Start: 1984 BP Controlled (<130/80) BP Controlle d (<130/80) [facility] Start: 1984 Depression Screening Depression Scre vinayak [facility] Start: 1984 HEPATITIS C SCREENING HEPATITIS C [facility] Start: 1984 Hepatitis C screening Hepatitis C [facility] Start: 1984 HIV SCREENING HIV SCREENING [facility] Start: 1984 HIV screening HIV Screening [facility] Start: 1972 PNEUMOCOCCAL (1 - PCV) PNEUMOCOCCAL (1 - PCV) [facility] Start: 1972 Pneumococcal vaccination [facility] Start: 1966 HEPATITIS B (1 of 3 - 3-dose series) HEPATITIS B (1 of 3 - 3-dose series) [facility] Start: 1966 Hepatitis B Vaccine (1 of 3 - 3-dose series) Hepatitis B Vaccine (1 of 3 - 3-dose series) [facility] Start: 1966 Screening for malign ant neoplasm of colon [facility] ebus guided sampl 1/2 node station/strux BRONCHOSCOPY,RIGID/FLEX IBLE W/ FLUORO,W/ENDOBRONCHIAL ULTRASOUND (EBUS) GUIDED TRANSTRACHEAL/ TRANSBRONCHIAL ASPIRATION/BIOPSY,1 OR 2 MEDIASTINAL AND/OR HILAR LYMPH NODE STATIONS/STRUCTURES Adenopathy [facility] End: 06-17-2025 CBC W Auto Differential panel - Blood COMPLETE BLOOD COUNT AND DIFFERENTIAL Lab Routine 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) Every 6 weeks for 9 Occurrences starting 06/17/2024 until 06/17/2025 [facility] Comment on above: Every 6 weeks for 9 Occurrences starting 06/17/2024 until 06/17/2025 End: 06-17-2025 Comprehensive metabolic 2000 panel - Serum or Plasma COMPREHENSIVE METABOLIC PANEL Lab Routine 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) Every 6 weeks for 9 Occurrences starting 06/17/2024 until 06/17/2025 [facility] Work Phone: Comment on above: Every 6 weeks for 9 Occurrences starting 06/17/2024 until 06/17/2025 End: 06-17-2025 Cortisol [Mass/volume] in Serum or Plasma CORTISOL, SERUM Lab Routine Adrenal insufficiency (HCC) 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) Every 6 weeks for 9 Occurrences starting 06/17/2024 until 06/17/2025 [facility] Comment on above: Every 6 weeks for 9 Occurrences starting 06/17/2024 until 06/17/2025 Cortisol [Mass/volum e] in Serum or Plasma CORTISOL, SERUM Lab Routine Adrenal insufficiency (HCC) 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) 01/24/2025 1:03 PM EDT [facility] Cortisol [Mass/volum e] in Serum or Plasma CORTISOL, SERUM Lab Routine Adrenal insufficiency (HCC) 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) 04/18/2025 1:06 PM EDT [facility] End: 04-25-2025 CT Abdomen and Pelvis W contrast IV CT ABD/PEL W IVCON Radiology 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 Thunderclap headache 1 Occurrences starting 03/26/2024 until 04/25/2025 [facility] Comment on above: 1 Occurrences starti ng 03/26/2024 until 04/25/2025 End: 11-30-2025 CT Abdomen W contrast IV CT ABDOMEN W IVCON Radiology 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) 1 Occurrences starting 10/31/2024 until 11/30/2025 [facility] Comment on above: 1 Occurrences starti ng 10/31/2024 until 11/30/2025 End: 04-25-2025 CT Chest W contrast IV CT CHEST W IVCON Radiology 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 Thunderclap headache 1 Occurrences starting 03/26/2024 until 04/25/2025 [facility] Comment on above: 1 Occurrences starti ng 03/26/2024 until 04/25/2025 End: 11-30-2025 CT Chest W contrast IV CT CHEST W IVCON Radiology 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) 1 Occurrences starting 10/31/2024 until 11/30/2025 [facility] Work Phone: Comment on above: 1 Occurrences starti ng 10/31/2024 until 11/30/2025 End: 03-22-2026 CT Chest W contrast IV CT CHEST W IVCON Radiology Routine Malignant neoplasm of unspecified part of unspecified bronchus or lung (HCC) 1 Occurrences starting 02/20/2025 until 03/22/2026 [facility] Work Phone: Comment on above: 1 Occurrences starti ng 02/20/2025 until 03/22/2026 CT Chest W contrast IV CT CHEST W IVCON Radiology Routine Malignant neoplasm of unspecified part of unspecified bronchus or lung (HCC) 05/29/2025 8:27 AM EDT [facility] Work Phone: End: 08-04-2025 CT Chest WO contrast CT CHEST WO IVCON Radiology Routine Neoplasm of lung 1 Occurrences starting 07/05/2024 until 08/04/2025 [facility] Work Phone: Comment on above: 1 Occurrences starti ng 07/05/2024 until 08/04/2025 End: 07-05-2026 CT Chest WO contrast CT CHEST WO IVCON Radiology Routine Malignant neoplasm of unspecified part of unspecified bronchus or lung (HCC) 1 Occurrences starting 06/05/2025 until 07/05/2026 [facility] Work Phone: Comment on above: 1 Occurrences starti ng 06/05/2025 until 07/05/2026 CT Guidance for radiation treatment of Unspecified body region CT SIM PLANNING RADIATION ONCOLOGY Radiology Routine 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) Ordered: 06/14/2024 [facility] Work Phone: Comment on above: Ordered: 06/14/2024 CT SIM PLANNING RADIATION ONCOLOGY CT SIM PLANNING RADIATION ONCOLOGY Radiology Routine Oropharnyx cancer (HCC) Ordered: 11/09/2022 [facility] Work Phone: Comment on above: Ordered: 11/09/2022 CT SIM PLANNING RADIATION ONCOLOGY CT SIM PLANNING RADIATION ONCOLOGY Radiology Routine Oropharnyx cancer (HCC) Ordered: 11/14/2022 [facility] Work Phone: Comment on above: Ordered: 11/14/2022 CYTOLOGY NON-FRUIT SORTER [facility] Work Phone: Comment on above: Release Upon Orderin g for 1 Occurrences starting 08/30/2023, 1 completed End: 08-03-2024 ECG COMPLETE ECG COMPLETE ECG STAT Preoperative examination 1 Occurrences starting 08/03/2023 until 08/03/2024 [facility] Work Phone: Comment on above: 1 Occurrences starti ng 08/03/2023 until 08/03/2024 End: 05-13-2025 ECG COMPLETE ECG COMPLETE ECG Routine Adenopathy 1 Occurrences starting 05/13/2024 until 05/13/2025 [facility] Work Phone: Comment on above: 1 Occurrences starti ng 05/13/2024 until 05/13/2025 End: 06-17-2025 Hemoglobin A1c in Blood HEMOGLOBIN A1C Lab Routine Adrenal insufficiency (HCC) Malaise and fatigue 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) Every 6 weeks for 9 Occurrences starting 06/17/2024 until 06/17/2025 [facility] Comment on above: Every 6 weeks for 9 Occurrences starting 06/17/2024 until 06/17/2025 Hemoglobin A1c in Blood HEMOGLOB IN A1C Lab Routine Adrenal insufficiency (HCC) Malaise and fatigue 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) 01/24/2025 1:03 PM EDT [facility] Work Phone: Hemoglobin A1c in Blood HEMOGLOB IN A1C Lab Routine Adrenal insufficiency (HCC) Malaise and fatigue 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) 04/18/2025 1:06 PM EDT [facility] Work Phone: End: 07-11-2025 LUNG DIFFUSION CAPACITY (DLCO) LUNG DIFFUSION CAPACITY (DLCO) PFT 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) 1 Occurrences starting 06/11/2024 until 07/11/2025 [facility] Comment on above: 1 Occurrences starti ng 06/11/2024 until 07/11/2025 LUNG DIFFUSION CAPAC ITY (DLCO) LUNG DIFFUSION CAPACITY (DLCO) PFT 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) 06/28/2024 11:59 AM EDT [facility] Work Phone: End: 04-25-2025 MR Brain WO and W contrast IV MRI BRAIN WO/W IVCON Radiology Routine Thunderclap headache 1 Occurrences starting 03/26/2024 until 04/25/2025 [facility] Comment on above: 1 Occurrences starti ng 03/26/2024 until 04/25/2025 End: 05-17-2024 MRI PROSTATE WO/W IVCON MRI PROSTATE WO/W IVCON Radiology Routine Encounter for observation for other suspected diseases and conditions ruled out 1 Occurrences starting 04/18/2023 until 05/17/2024 [facility] Work Phone: Comment on above: 1 Occurrences starti ng 04/18/2023 until 05/17/2024 End: 11-26-[address] attenuation skull base mid-thigh NM PET/CT SKULL-THIGH INITIAL Radiology Routine Oropharnyx cancer (HCC) 1 Occurrences starting 10/27/2022 until 11/26/2023 [facility] Work Phone: Comment on above: 1 Occurrences starti ng 10/27/2022 until 11/26/2023 End: 10-05-[address] attenuation skull base mid-thigh NM PET/CT SKULL-THIGH INITIAL Radiology Routine Neoplasm of lung 1 Occurrences starting 09/06/2023 until 10/05/2024 [facility] Work Phone: Comment on above: 1 Occurrences starti ng 09/06/2023 until 10/05/2024 End: 07-11-2025 SPIROMETRY BASELINE ONLY SPIROMETRY BASELINE ONLY PFT 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) 1 Occurrences starting 06/11/2024 until 07/11/2025 [facility] Work Phone: Comment on above: 1 Occurrences starti ng 06/11/2024 until 07/11/2025 SPIROMETRY BASELINE ONLY SPIROMETRY BASELINE ONLY PFT 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) 06/28/2024 11:59 AM EDT [facility] Work Phone: SURGICAL PATHOLOGY [facility] Work Phone: Comment on above: Release Upon Orderin g for 1 Occurrences starting 08/30/2023, 1 completed End: 06-17-2025 Thyrotropin [Units/volume] in Serum or Plasma THYROID STIMULATING HORMONE Lab Routine Malaise and fatigue 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) Every 6 weeks for 9 Occurrences starting 06/17/2024 until 06/17/2025 [facility] Comment on above: Every 6 weeks for 9 Occurrences starting 06/17/2024 until 06/17/2025 Thyrotropin [Units/volume] in Serum or Plasma THYROID STIMULATING HORMONE Lab Routine Malaise and fatigue 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) 01/24/2025 1:03 PM EDT [facility] Thyrotropin [Units/volume] in Serum or Plasma THYROID STIMULATING HORMONE Lab Routine Malaise and fatigue 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) 04/18/2025 1:06 PM EDT [facility] Immunizations Immunization Date Immunization Notes Care Provider [facility] 11-17-2022 influenza nasal, unspecified formulation Elizabeth Borjas MD Work Phone: [facility] 11-17-2022 influenza virus vaccine, unspecified formulation Norma Craig [facility] 11-17-2022 influenza, injectabl e, quadrivalent, preservative free Yadi Simms RD Work Phone: [facility] 10-09-2021 SARS-CoV-2 mRNA (toshaunaeran 5y-11y) vaccine Shelly Velez [facility] Comment on above: Result Comment: 3 va ccines 09-03-2021 SARS-CoV-2 (COVID-19 ) mRNA BNT-162b2 vax Norma Lue [facility] 08-06-2021 SARS-CoV-2 (COVID-19 ) mRNA BNT-162b2 vax Norma Lue [facility] Comment on above: Result Comment: 2022: [id number] Payers Date Payer Category Payer Unknown [id number] 2023 Managed Care HMO (unspecified) [id number] 2023 Private Health Insurance [id number] 2023 Private Health Insurance [id number] 2023 Self-pay [id number] 2022 Unknown [id number] [id number] 1966 Unknown [id number] 2.16.840.1.004836.3.579.2.593 1966 Unknown [id number] 2.16.840.1.874891.3.579.2.593 1966 Unknown [id number] 2.16.840.1.947451.3.579.2.593 1966 Unknown [id number] 2.16.840.1.175348.3.579.2.593 1966 Unknown [id number] 2.16.840.1.882676.3.579.2.593 1966 Unknown [id number] 2.16.840.1.979153.3.579.2.593 1966 Unknown [id number] 2.16.840.1.374238.3.579.2.72 1966 Unknown [id number] 2.16.840.1.041205.3.579.2.72 1966 Unknown [id number] 2.16.840.1.771738.3.579.2.72 1966 Unknown [id number] 2.16.840.1.361963.3.579.2.72 1966 Unknown [id number] 2.16840.1.820856.3.579.2.1258 1966 Unknown [id number] 2.16.840.1.597285.3.579.2.1258 1966 Unknown [id number] 2.16.840.1.813779.3.579.2.1258 1966 Unknown [id number] 2.16.840.1.430387.3.579.2.1258 1966 Unknown [id number] 2.16.840.1.287761.3.579.2.1258 1966 Unknown [id number] 2.16.840.1.682263.3.579.2.1258 1966 Unknown [id number] 2.16.840.1.652714.3.579.2.1259 1959 Unknown [id number] [address] [facility] [id number] Unknown [id number] 2.16.840.1.485786.3.579.2.531 Unknown [id number] 2.16.840.1.052995.3.579.2.531 Social History Date Type Detail Facility Start: 06-10-2022 Tobacco smoking status Never smoked tobacco (finding) [facility] Start: 09-09-2012 Tobacco smoking status Never [facility] Start: 03-02-2023 End: 04-18-2023 Sex Assigned At Male [facility] Start: 10-27-2022 End: 08-09-2024 Tobacco smoking status NHIS Ex-smoker [facility] [place] Start: 10-13-1987 End: 10-13-2022 History of tobacco use Current smoker [facility] Start: 10-13-1987 End: 10-13-2022 History of tobacco use Cigarette Smoker [facility] Start: 10-27-2022 End: 03-02-2023 Cigarettes smoked current (pack per day) - Reported 1 [facility] Start: 10-27-2022 End: 08-09-2024 Tobacco use and exposure Former smokeless tobacco user [facility] Start: 10-27-2022 End: 06-05-2025 Alcohol intake Current drinker of alcohol (finding) [facility] Start: 10-27-2022 Alcohol Comment occ [facility] Start: 1965 Sex Assigned At Male [facility] History of tobacco use Passive smoker [facility] Start: 10-26-2022 Gender identity Identifies as male gender (finding) [facility] Start: 10-26-2022 Sexual orientation Heterosexual (finding) [facility] End: 10-09-1987 History of tobacco use Snuff [...] Healthcare Functional Status Date Assessment Result Facility 06-28-2024 Functional Status N/A [facility] 07-07-2023 Functional Status Yes [facility] 06-08-2023 Functional Status N/A [facility] 06-10-2022 Functional Status N/A [facility] Clinical Notes 06-10-2022 to 06-05-2025 Tayla Ellsworth MD - 06/05/2025 11:30 AM Maddy Oliveira LPN - 06/05/2025 11:19 AM EDTTelephone Mari - Chiqui Modi RN - 06/03/2025 9:41 AM EDTPatient Instructions Note Date & Type Note Facility 06-05-2025 History of Present illness Narrative Radiation Oncology - Follow Up Note PATIENT NAME: Caitlin Emlore PATIENT DIAGNOSIS: Oligoprogressive 2 RUL lung metastases, from previously treated H&N cancer. S/p lung SBRT 07/05/2024 Single isocenter for 2 lung lesions: 3400 cGy in 1 fx ONCOLOGIC HX: 1. HPV positive BOT SCC Treatment History: 1. Concurrent Cisplatin and XRT 11/21/2021- XRTY completed 01/06/2023 and last dose of chemo 12/21/2022 (Total Hoopa dose= 200 mg/m2) 2. Recurrence in the Lung Biopsy proven 08/2023: PDL-1 insufficient and KRAS G12A, PIK3CA (Targeted Oncology only due to sample) 3. Carbo/Taxol ad Pembro 09/26/2023-12/11/2023 (Cycle 4) with response, Pembro monotherapy INTERVAL HISTORY: Patient presents today for follow up visit. He overall has been doing well, denies any SOB, no consitutional changes, still on surveillance from the systemic therapy perspective. He has good energy and appetite, still able to sleep well. Overall feels he is slowly better since last seen. He continues to have his chronic daily cough which has been present since the end of treatment. Coughing about every couple hours, intermittently productive. It is intermittent, worsened by laying flat. He has been sleeping sitting up. Most of the time the cough is non productive but he will occasionally bring up white sputum. He denies any associated SOB or chest pain. 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 Planning on taking trip to [facility] over the summer. May visit [place] later this month as his daughter is planning on moving there. RESULTS: 06/02/25 IMPRESSION: Slight decrease in size and increase of architectural distortion associated with the central right upper lobe mass and decrease in size of right apical nodule. Considerations as detailed in the body of the report. Slight decrease in size of small to borderline mediastinal hilar nodes. No other significant interval change. ALLERGIES No Known Allergies MEDICATIONS: levothyroxine (SYNTHROID) 100 mcg tablet Take 1 tablet by mouth once daily. famotidine (PEPCID) 20 mg tablet TAKE 1 TABLET BY MOUTH TWICE A DAY pembrolizumab (KEYTRUDA INTRAVENOUS) Inject intravenously. ondansetron (ZOFRAN) 8 mg tablet Take 1 [...] hours as needed. REVIEW OF SYSTEMS: GENERAL: Negative for weight loss, fevers, chills, or night sweats. HEENT: Negative for sudden vision or hearing changes. NECK: Negative for masses in the neck. [...] Negative for bleeding or easy bruising. SKIN: Negative for rashes or other skin changes. PHYSICAL EXAM: VS: BP 129/71 Pulse 62 Temp 36.7 C (98.1 F) (Temporal) Resp 20 Wt 89.6 kg (197 lb 8.5 oz) SpO2 100% BMI 27.93 kg/m KPS: 100 General Appearance: Alert and oriented. No acute distress. HEENT: NCAT. Sclera anicteric. PERRL. EOMI. Neck: Normal ROM. No palpable cervical or supraclavicular adenopathy. Chest: No respiratory distress. Lungs clear to auscultation bilaterally. Heart: Regular rate and rhythm. Abdomen: Soft. Nontender. Nondistended. Musculoskeletal: No edema. Normal ROM in extremities. No bone or spine tenderness. Neuro: Speech fluent. Gait normal. No focal deficits. Skin: No rashes noted Lymphatics: No palpable lymphadenopathy. TOXICITY ASSESSMENT CTC3: No ASSESSMENT/PLAN: Overall the patient has been doing well clinically. Continues on pembrolizumab with great tolerance.On last scans, report suggests scar/treatment effect vs. Cancer recurrence but favoring scar/treatment. Now with most recent CT chest 06/02/25, appears much more in line w/ post-treatment changes. Follow up prn as he will continue to get treatment and scans with Dr. Medina. Joshua Guaman, MS4 [facility] STAFF PHYSICAN NOTE OF PERSONAL INVOLVEMENT IN CARE I have personally participated in the bassett components of the case including a review of imaging and agree with the above findings Tayla Ellsworth MD cc: Julian Burton [facility] [place] [address] Lakia Medina MD Hematology/Oncology Additional intake questions: Has the patient had fever, nausea, vomiting, diarrhea, constipation, fatigue for > 1 week? No Does the patient have a decreased appetite? No Does patient want to see a Transition Lead? No (yes to any of above refer patient to schedulers for dietitian appointment) ) Does patient have any new or increased numbness or tingling of extremities? No Is patient interested in fertility information? No Does patient need any prescription refills? No Does patient have an advanced directive in place? No, Patient referred to [facility] documented in this encounter [facility] 06-05-2025 Note [facility] 06-05-2025 Note [facility] 06-03-2025 Telephone encounter Note Pt notified that CT is stable Chiqui Modi RN [facility] Work Phone: 06-03-2025 Miscellaneous Notes Pt notified that CT is stable Chiqui Modi RN Images from the original note were not included. documented in this encounter [facility] 05-29-2025 Telephone encounter Note Images from the original note were not included. [facility] 05-29-2025 Instructions Lakia Medina MD - 05/29/2025 9:21 AM EDT Proceed with Pembrolizumab today and q 6 weeks (prefer Monday's) No clinician in 6 weeks - labs and treatment only Call results of CT from Today (Alli Modi) RTC in 12 weeks for continued treatment Labs same day We discussed your recent imaging and treatment plan: - Your last scan showed a new upper lobe mass obscuring previously treated pulmonary nodules in the right anterior segment. Dr. Ellsworth believes this is likely a treatment effect rather than disease progression. - A CT scan was performed today, and we will compare it to your prior imaging. Chiqui, your direct care provider, will call you with the results before your next appointment with Dr. Ellsworth next week. We discussed your ongoing treatment with Keytruda: - You are tolerating Keytruda well without significant side effects such as itching or shortness of breath. - I have signed off on cycle 12 of your treatment today. Your next treatment appointment is scheduled for July 11. Please confirm this date with the front end java developer before leaving. We discussed your follow-up schedule: - You will return to the clinic in 6 weeks for labs and treatment only. - You will return to the clinic in 12 weeks (August 22) for continued treatment and follow-up. At that time, we will likely order another scan to assess your progress. We discussed your symptoms and side effects: - You reported coughing triggered by temperature changes (e.g., air conditioning or heat) but no soreness in your mouth or throat. - You mentioned a sensation in your neck related to prior radiation treatment, which is not unusual. - You are managing dry mouth and have adjusted your diet to accommodate changes in swallowing, such as avoiding dry foods like bread. Your lab results today were reviewed: - Kidney function has improved since your last visit. - Liver function and CBC results are normal. Please let us know if you experience any new or worsening symptoms, such as shortness of breath, persistent itching, or other concerns. We will continue to monitor your progress closely. documented in this encounter [facility] 05-29-2025 History of Present illness Narrative Images from the original note were not included. NAME: JuanjoseCaitlin CLINIC NO.: [id number] DATE OF SERVICE: May 29, 2025 (Sascha) Some elements in this clinic note that are critical to medical decision making have been carefully reviewed and included from a prior clinic note dated: March 07, 2025 (Sascha) Referring Provider: Elizabeth Borjas MD Additional Clinicians involved in Caitlin Elmore's care: Tayla Ellsworth DIAGNOSIS: HPV positive BOT SCC CASE SUMMARY / ASSESSMENT: 60 year old male here for follow up and treatment. BOT HPV positive locally advanced on concurrent therapy completed 01/06/2023 and received a total of 200 mg/m2 of nanwalek as well. PET with response 04/2023. CT [...] nodules growing and case discussed at TB. EBUS of hilar node was negative and so completed SBRT to the 2 pulmonary lesions end of June 2024. PET positive in the prostate and he follows urology CRI- Stable SUMMARIZED PLAN OF CARE: Proceed with Pembrolizumab today and q 6 weeks (prefer Monday's) No clinician in 6 weeks - labs and treatment only Call results of CT from Today (Alli Modi) RTC in 12 weeks for continued treatment Labs same day AI Assisted A/P: 1. 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) (C01) 2. Personal history of irradiation (Z92.3) Recent imaging showed a new upper lobe mass obscuring prior treated pulmonary nodules and obstructing the right anterior segmental bronchus; Dr. Ellsworth suspects this represents treatment effect rather than disease progression. Patient is currently receiving Keytruda, with no significant side effects reported. Labs show improved kidney function, normal liver function, and a normal CBC. - Continue Keytruda; cycle [address] administered today. - CT scan performed today; results to be communicated to patient prior to next oncology visit. - Follow-up with Dr. Ellsworth next week to review scan results. - Next treatment and labs in 6 weeks; return to clinic in 12 weeks for continued treatment. - Discussed scheduling preferences; next treatment visit scheduled for Monday, July 11, and next clinic visit for Monday, August 22. 3. Subacute cough (R05.2) 4. Oral phase dysphagia (R13.11) Cough is triggered by temperature changes; no oral pain reported. Patient experiences xerostomia and difficulty swallowing dry foods, likely secondary to prior radiation therapy. - Continue current management. CASE HISTORY: Reverse Chronological Order 05/29/2025 - CT Chest: pending 02/20/2025 - CT CAP: Chest: New right upper lobe mass obscuring the prior treated pulmonary nodules and obstructing the right anterior segmental bronchus, suspicious for recurrence. However, a component of evolving post radiation change cannot be completely excluded. PET/CT could be considered (approximately 8 months after SBRT). Increase in size of mediastinal lymph nodes and prior right apical partially calcified granuloma. Differential diagnoses include metastases, nonspecific reactive change with infectious/inflammatory process, immune check inhibitor related sarcoid-like reaction. Attention on follow-up is recommended. A/P: No significant change from prior exam. No metastasis in the abdomen. 10/31/2024 - CT Chest: Interval decrease in size of treated right upper lobe nodules, superior lesion demonstrating more pronounced decrease in size. The more inferiorly located nodule demonstrates trilaterally ablation and measures smaller than treatment planning CT dated 06/28/2024 but remains larger than 05/03/2024 exam. Consider close follow-up. New opacities are noted mostly in the right upper lobe, probably treatment related (radiation pneumonitis?), Although there are more localized opacities visible as well. Elongated mucous plugging of right upper lobe anterior segment bronchus presumed. Difficult to assess hilar region lymph nodes. Some of the mediastinal lymph nodes may measure similar to 06/28/2024 exam but are slightly larger compared to 05/03/2024 exam. Attention on follow-up recommended. Presumed prior granulomatous infection. 06/28/2024-07/05/2024 - Radiation to RUL lung 05/21/2024 - Bronchoscopy: Lymph node, 10R, biopsy: -Necrotic material and minute cluster of bland epithelial cells Comment: A minute cluster of epithelial cells is noted, without prominent atypia, favored to represent bronchial cells. No definite malignancy is identified. No definite lymph node tissue or granuloma is demonstrated. GMS and AFB/Melissa stains will be performed and results will be reported in an addendum. 04/2024 - CT CAP: Chest: Nodular opacities in right lung measuring up to 1.6 cm worrisome for metastases, increased in size since 12/08/23. Mild right hilar lymphadenopathy, either stable or slightly smaller. A/P: No evidence of intra-abdominal/pelvic metastases. No interval change since 12/08/23. Nonspecific subcentimeter hepatic foci, stable 01/02/2024-Current - Pembro monotherapy 11/2023 - CT CAP: Chest: Improvement in the previously seen pulmonary nodules [...] is suspicious for progression of metastatic adenopathy. A/P: No evidence of metastatic disease in the abdomen or pelvis. Enlargement of the prostate gland 09/26/2023-12/11/2023 - Carbo/Taxol + Pembro 4 cycles with response 09/2023 - PET/CT: CHEST: Right upper lobe lung nodule increased in size and metabolic activity, associated with new right hilar FDG avid hilar lymphadenopathy most suspicious for neoplastic process. Slightly more prominent nodules in the right lung with mild uptake are also seen. HEAD/NECK, ABDOMEN/PELVIS, & EXTREMITIES/SKELETON: No evidence of focal uptake to suggest FDG avid neoplastic process. 08/2023 - RUL biopsy: Lung, right upper lobe, nodule, biopsy: - HPV-associated squamous cell carcinoma (see comment). KRAS [id number]:c.35G>A 51.2% VAF, Depth 4267x, Ex2 PIK3CA p.[id number]:c.1633G>A 21.7% VAF, Depth 5015x, Ex10 PDL-1 Insufficient 07/2023 - CT Chest: Since 04/14/2023, multiple enlarging right lung nodules, suspicious for metastases. No progressive lymphadenopathy. 04/2023 - PET/CT: NECK: Interval resolution of intense uptake in the right tongue base. Resolution of FDG avid cervical lymphadenopathy. CHEST: New subcentimeter right upper lobe pulmonary nodules, too small to accurately assess for FDG uptake. Differential includes infection/inflammation or metastasis. Attention on follow-up recommended. No FDG avid lymphadenopathy. ABDOMEN/PELVIS: Similar appearance of focal FDG uptake in the left prostate gland. This is concerning for primary prostatic malignancy. Correlation with MRI prostate without and with IV contrast is recommended. Otherwise, no FDG avid lymphadenopathy. EXTREMITIES/SKELETON: No suspicious FDG avid osseous lesion. 11/2022 - PET/CT: NECK: Intensely hypermetabolic right oropharyngeal region mass compatible with neoplastic process. Hypermetabolic right cervical lymphadenopathy suspicious for metastatic lymphadenopathy. CHEST: No evidence of FDG avid neoplastic process ABDOMEN/PELVIS: No evidence of FDG avid metastases. Increased activity in the prostatic region correlation with PSA is suggested. 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 10/2022 - CT Neck: Large posterior right tongue base mass consistent with history of neoplasm. Large right parapharyngeal/level 2 lymph node versus mass; also seen on prior ultrasound study and previously biopsied 11/21/2021 - Concurrent Cisplatin + radiation - Cisplatin completed: 12/21/2021 (total nanwalek dose: 200mg/m2), radiation completed: 01/06/2022 HPI: Updated Visit, May 29, 2025: On 10/15/2021, patient was diagnosed with head and neck cancer, specifically base of tongue cancer, and is currently undergoing treatment with Keytruda. Recent imaging revealed a new upper lobe mass obscuring previously treated pulmonary nodules and obstructing the right anterior segmental bronchus. This was interpreted by Dr. Ellsworth as likely treatment effect rather than disease progression. A follow-up scan was performed today, and the patient is scheduled to see Dr. Ellsworth next week to discuss the results. Patient reports frequent coughing triggered by temperature changes, such as entering a vehicle with air conditioning or going outside in the heat. He describes a sensation in his neck as if it has been cooked by radiation but denies any soreness at the back or bottom of the mouth. He notes a decrease in salivary production, which has altered his eating habits, making it difficult to eat dry foods like sandwiches. He has adapted by consuming softer foods like spaghetti. He denies any side effects from Keytruda, such as itching or shortness of breath, and reports feeling fine overall. He continues to work every day and has no issues with vision aside from age-related changes. He recently celebrated his birthday and continues to engage in family activities, such as annual trips to [place]. (Today) - Imaging study: Results pending. - Laboratory tests: - Kidney function: Improved from previous - Liver function: Normal - CBC: Normal Imaging study (date not provided): Chaginogenesis scar tissue noted; new upper lobe mass obscuring previously treated pulmonary nodules with right anterior segmental obstruction, likely treatment-related rather than progressive disease. Updated Visit, March 07, 2025: CLARICE returns with his , Clarissa, for a follow up. We reviewed his recent CT images. Repeat CT Chest is scheduled for 06/05/[address] Ellsworth, consider obtaining 1 week prior while he is here for treatment. He is in agreement to continue single agent Keytruda, due for C10 today. Labs are stable, anemia is improving compared to last month. Email from Dr. Ellsworth: Scottie Zavala, I wanted to touch base with you about our mutual pt. I saw him for his sbrt follow up today and if you read the radiology report, you would think he has recurence. I actually like though they mentioned the possibility of radiation effects and based on my review of my plans for him and the way the target doses overlapper, my opinion is that the confluent changes are RT induced. I would just do repeat CT w contrast in 3-4 m and would NOT do a PET because it will be overly sensitive for the inflammation that is going on in there. You are seeing him on 03/07 for his next pembro so wanted to share with you before hand. Thanks Jose Angel Updated Visit, December 13, 2024: CLARICE returns to continue pembrolizumab. Recent CT of the chest shows decrease in size of lung nodules. He continues tolerating treatment well and offers no complaints today. Updated Visit, November 01, 2023: Caitlin returns today for consideration of maintenance Keytruda. He remains on pembrolizumab every 6 weeks with no complaints. He has had no significant medical changes. He denies any shortness of breath, rashes, diarrhea, nausea, vomiting, abdominal pain. Recent imaging is stable. Had a recent trip to [facility] in [place] with his family and getting ready to go on a cruise with his in December. Updated Visit, September 13, 2024: Caitlin Elmore returns for follow-up and continued treatment. He remains on pembrolizumab every 6 weeks and is tolerating it well. Since his last visit there has been no significant medical changes. He denies any side effects currently from treatment. He has an occasional cough with temperature changes. Otherwise, he states that his breathing is fine. He is feeling good. He denies nausea, vomiting, abdominal pain and diarrhea. No skin rashes. No fevers, chills, night sweats or signs/symptoms of infection. No bleeding or abnormal bruising. His appetite is good. He denies any difficulty swallowing. Overall he is doing well and wishes to proceed with treatment as planned. He is going on a family trip next month to the [facility]. Updated Visit, August 02, 2024: Doing well and tolerated RT well. Scans scheduled for October next year. Kidney function off a little due to decreased water intake. Encouraged him to improve on this. Initial Visit, June 20, 2024: Transition of Care Caitlin Elmore presents today to transition his care following Dr. Borjas's relocation. He is joined by his , Clarissa. Recent lymph node biopsy was negative for malignancy, positive for necrotic tissue. He will undergo one radiation treatment to lung nodules in about [address] Ellsworth. Continue pembrolizumab today and q 6 weeks. They have 5 children - ages 30-19. CLARICE is from [place], Clarissa is from [place]. May 08, 2024: Caitlin Elmore is a 59 year old year old male here for follow up. Doing well outside of mild arthralgia. Denies any nausea and or abdominal pain and or diarrhea. Denies any skin rash and or cough REVIEW OF SYSTEMS Per HPI and otherwise negative by full review of organ systems. Eyes: (-) vision changes Ears/Nose/Mouth/Throat: (-) oral pain Neck: (+) neck discomfort Respiratory: (+) cough, (-) shortness of breath Gastrointestinal: (+) difficulty eating Skin: (-) itching Psychiatric: (+) irritability ECOG PERFORMANCE STATUS: 1 PHYSICAL EXAMINATION: Vitals: BP 128/78 Pulse 68 Temp (Src) 97.1 (Temporal) Resp 16 Ht 5' 10.512 (1.79m) Wt 197 lb 5 oz (89.5kg) SpO2 99% BMI 27.90 kg/(m^2). Body surface area is 2.11 meters squared. Exam limited to gross visualization where appropriate. [...] skin without rash, lesions, wounds or petechiae. ALLERGIES: ALLERGIES No Known Allergies MEDICATIONS: levothyroxine (SYNTHROID) 100 mcg tablet Take 1 tablet by mouth once daily. famotidine (PEPCID) 20 mg tablet TAKE 1 TABLET BY MOUTH TWICE A DAY pembrolizumab (KEYTRUDA INTRAVENOUS) Inject intravenously. ondansetron (ZOFRAN) 8 mg tablet Take 1 [...] by mouth every 6 hours as needed. LABORATORY VALUES: WBC (k/uL) Date Value 05/29/2025 9.65 RBC (m/uL) Date Value 05/29/2025 4.90 Hemoglobin (g/dL) Date Value 05/29/2025 13.1 Hematocrit (%) Date Value 05/29/2025 39.9 MCV (fL) Date Value 05/29/2025 81.4 MCH (pg) Date Value 05/29/2025 26.7 MCHC (g/dL) Date Value 05/29/2025 32.8 RDW-CV (%) Date Value 05/29/2025 13.2 Platelet Count (k/uL) Date Value 05/29/2025 226 MPV (fL) Date Value 05/29/2025 8.3 (L) Glucose (mg/dL) Date Value 05/29/2025 110 (H) BUN (mg/dL) Date Value 05/29/2025 19 Creatinine (mg/dL) Date Value 05/29/2025 1.38 (H) Sodium (mmol/L) Date Value 05/29/2025 139 Potassium (mmol/L) Date Value 05/29/2025 4.1 Chloride (mmol/L) Date Value 05/29/2025 105 CO2 (mmol/L) Date Value 05/29/2025 24 Protein, Total (g/dL) Date Value 05/29/2025 6.7 Albumin (g/dL) Date Value 05/29/2025 4.1 Calcium, Total (mg/dL) Date Value 05/29/2025 9.9 Alkaline Phosphatase (U/L) Date Value 05/29/2025 110 Bilirubin, Total (mg/dL) Date Value 05/29/2025 0.2 AST (U/L) Date Value 05/29/2025 12 (L) ALT (U/L) Date Value 05/29/2025 9 (L) DIAGNOSIS: (C01) 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) (Z92.3) Personal history of irradiation (R05.2) Subacute cough (R13.11) Oral phase dysphagia PAST MEDICAL HISTORY Diagnosis Date Hard of hearing HTN (hypertension) Hypercholesteremia Oropharyngeal cancer (HCC) PAST SURGICAL HISTORY Procedure Laterality Date BIOPSY OF ORAL TISSUE SOFT BRONCHOSCOPY W/PLACEMENT TRACHEAL STENT 09/2023 PAST SURGICAL HISTORY OF Right mastoidectomy and incus repair TONSILLECTOMY & ADENOIDECTOMY <AGE 13 Social History Tobacco Use Smoking status: Former Current packs/day: 0.00 Average packs/day: 1 pack/day for 35.0 years (35.0 ttl pk-yrs) Types: Cigarettes Start date: 10/13/1987 Quit date: 10/13/2022 Years since quittin.6 Passive exposure: Past Smokeless tobacco: Former Vaping Use Vaping status: Never Used Substance Use Topics Alcohol use: Yes Comment: occ Drug use: Not Currently Types: Marijuana FAMILY HISTORY Problem Relation Age of Onset Prostate Cancer Father Thyroid Cancer Sister Anesthesia Problems No Family History Malig Hyperthermia No Family History I spent a total of 30 minutes on the date of service which included preparing to see the patient, [id number] patient care, completing clinical documentation, performing a medically appropriate examination, counseling and educating the patient/family/caregiver, ordering medications, tests, or procedures, independently interpreting results (not separately reported), communicating results to the patient/family/caregiver, and care coordination (not separately reported). Lakia Medina MD, CPE Hematology and Oncology Services Provided at: [place], [place] CC: MD Tayla Clarke documented in this encounter [facility] 05-29-2025 Note [facility] 05-29-2025 History of Present illness Narrative Radiology Service Progress Note PATIENT NAME: Caitlin Elmore DATE OF SERVICE: May 29, 2025 TIME: 8:11 AM PATIENT IDENTITY VERIFICATION COMPLETED USING TWO (2) IDENTIFIERS: Name and Date of confirmed by patient verbally. FALL SCREENING: Has the patient had 2 falls in the last year or 1 fall with injury or currently using an Ambulatory Assistive Device (Walker, Cane, Wheelchair, Crutches, etc.)? No PATIENT GENDER DATA: Assigned male at PATIENT RELEVANT IMPLANT DATA REVIEWED: Not Applicable PATIENT PRESENTS WITH 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 OR ATTACHED PRESIDENT & CEO: No RADIOLOGY DEPARTMENT: CT; Exam(s) Completed: Chest PERIPHERAL IV DATA: Site assessment: Clean,Dry and Intact, Site disposition Discontinued SIGNED BY: RT Ramila(R) May 29, 2025 8:11 AM Radiology Service Progress Note DATE OF SERVICE: May 29, 2025 TIME: 8:14 AM PATIENT WEIGHT: 198LBS PATIENT IDENTITY VERIFICATION COMPLETED USING TWO (2) STANDARD IDENTIFIERS: Name and Date of confirmed by patient verbally. FALL SCREENING: Has the patient had 2 falls in the last year or 1 fall with injury or currently using an Ambulatory Assistive Device (Walker, Cane, Wheelchair, Crutches, etc.)? No PATIENT GENDER DATA: Assigned male at ALLERGIES: Reviewed and unchanged CONTRAST ALLERGY: No EXAM: CT -CONTRAST INDUCED NEPHROPATHY RISK FACTORS: Not applicable CREATININE: Creatinine Date Value Ref Range Status 04/18/2025 1.61 (H) 0.73 - 1.22 mg/dL Final 03/07/2025 1.27 (H) 0.73 - 1.22 mg/dL Final 01/24/2025 1.38 (H) 0.73 - 1.22 mg/dL Final Estimated Glomerular Filtration Rate Date Value Ref Range Status 04/18/2025 49 (L) >=60 mL/min/1.73m Final Comment: Estimated Glomerular Filtration Rate (eGFR) is calculated using the 2020 CKD-EPI creatinine equation. This equation utilizes serum creatinine, sex, and age as parameters. The creatinine assay has traceable calibration to isotope dilution-mass spectrometry. Refer to KDIGO guidelines for clinical interpretation. In patients with unstable renal function, e.g. those with acute kidney injury, the eGFR may not accurately reflect actual GFR. P.O.C.T. RESULTS: POC done: Yes, See Lab Tab May 29, 2025 TREATMENT: N/A IV SITE: Ambulatory: A peripheral IV was started in the Right hand with a Angio cath: 20 gauge. IV SITE APPEARANCE: Clean,Dry and Intact SIGNATURE: Julia Braswell RN PATIENT NAME: Caitlin Elmore DATE: May 29, 2025 TIME: 8:14 AM documented in this encounter [facility] 05-29-2025 Note [facility] 05-29-2025 Note [facility] 05-28-2025 History of Present illness Narrative ENDOCRINOLOGY This is a virtual visit using [employer]. It required patient-provider interaction for the medical decision making as documented below. I have communicated my name and active licensure. The patient s identity and physical location were verified at the time of this visit. Either the patient or their legal primary care sales representative has been informed of the risks and benefits of -- and alternatives to -- treatment through a remote evaluation and consents to proceed with the evaluation remotely. The patient was referred by Tremaine Gomez. HISTORY HPI: Caitlin Elmore is a 60 year old male who comes in here on f/u for possible adrenal insufficiency, gonadotropins elevation, and TSH elevation associated with pembrolizumab use. - Pt started to feel exhausted since end of February 2024. 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 - From Oncology note: Concurrent Cisplatin and XRT 11/21/2021- XRTY completed 01/06/2023 and last dose of chemo 12/21/2022 (Total Hoopa dose= 200 mg/m2). Recurrence in the Lung Biopsy proven 08/2023: PDL-1 insufficient and KRAS G12A, PIK3CA ( Targeted Oncology only due to sample). Carbo/Taxol ad Pembro 09/26/2023-12/11/2023 ( Cycle 4) With response. Pembro monotherapy. - TSH elevation was initially detected on 11/14/23 and was confirmed over time. Pt was started on LT4 50 mcg on 01/04/24. - Cortisol was checked once at 2:17 PM and it was 4.0 Pt was started on hydrocortisone on 03/28/24, 10 mg at 7 AM and 5 mg around 6 PM. Pt may have missed a couple of times the evening dose without feeling different. - Pt received dexamethasone infusions, 10 mg, grossly once a month, from 11/21/22 to 12/12/23. No changes in vision. Peripheral vision is good. No significant headaches. No increased sweating. Decreased sex drive since 2021, before starting chemo. No growth or tenderness on breasts. Cortisol was 10.6 at 7:57 AM on 05/17/24, arguing against any significant adrenal insufficiency. After that, hydrocortisone was discontinued and Pt did not notice any difference as compared to when being on it. - Pt was getting very tired but today states he is feeling better after the increase in the dose of LT4. - Now on LT4 100 mcg. -Sister with thyroid cancer. Heartburn much better controlled after starting famotidine. No significant constipation or diarrhea. PAST MEDICAL HISTORY Diagnosis Date Hard of hearing HTN (hypertension) Hypercholesteremia Oropharyngeal cancer (HCC) PAST SURGICAL HISTORY Procedure Laterality Date BIOPSY OF ORAL TISSUE SOFT BRONCHOSCOPY W/PLACEMENT TRACHEAL STENT 09/2023 PAST SURGICAL HISTORY OF Right mastoidectomy and incus repair TONSILLECTOMY & ADENOIDECTOMY <AGE 13 Social History Tobacco Use Smoking status: Former Current packs/day: 0.00 Average packs/day: 1 pack/day for 35.0 years (35.0 ttl pk-yrs) Types: Cigarettes Start date: 10/13/1987 Quit date: 10/13/2022 Years since quittin.6 Passive exposure: Past Smokeless tobacco: Former Vaping Use Vaping status: Never Used Substance Use Topics Alcohol use: Yes Comment: occ Drug use: Not Currently Types: Marijuana FAMILY HISTORY Problem Relation Age of Onset Prostate Cancer Father Thyroid Cancer Sister Anesthesia Problems No Family History Malig Hyperthermia No Family History Current Outpatient Medications Medication Sig famotidine (PEPCID) 20 mg tablet TAKE 1 TABLET BY MOUTH TWICE A DAY levothyroxine (SYNTHROID) 100 mcg tablet Take 1 tablet by mouth once daily. pembrolizumab (KEYTRUDA INTRAVENOUS) Inject intravenously. levothyroxine (SYNTHROID) 88 mcg tablet Take 1 tablet by mouth once daily. ondansetron (ZOFRAN) 8 [...] visit. ALLERGIES No Known Allergies PHYSICAL EXAM: Appearance: Well appearing, in no acute distress. HEENT: Anicteric sclerae. Non-injected conjunctivae. Neuro: Alert, speaking coherently. No involuntary motions. Good proximal strength. LABS RESULTS: Latest Ref Rng 11/01/2024 12/13/2024 01/24/2025 02/03/2025 03/07/2025 04/18/2025 Albumin 3.9 - 4.9 g/dL 4.8 Sex Hormone Bind GLB 14 - 82 nmol/L 54 Testosterone 193 - 824 ng/dL 594 Testosterone, Free Calculation 38.0 - 120.0 pg/mL 82.5 Testosterone, Percent Free 1.1 - 2.6 % 1.4 Testosterone, Bioavailable 105.0 - 324.0 ng/dL 247.4 Prolactin 4.1 - 25.1 ng/mL 9.0 Free T4 0.9 - 1.7 ng/dL 1.5 Cortisol 4.8 - 19.5 ug/dL 6.7 5.8 8.1 25.4 (H) 6.8 8.9 Cortisol 22.5 (H) Cortisol 12.0 Insulin-like Growth Factor I 56 - 203 ng/mL THYROID PEROXIDASE ANTIBODY <5.6 IU/mL TSH 0.270 - 4.200 mIU/L 4.700 (H) 4.070 3.820 4.570 (H) 2.470 LH 1.8 - 10.8 mIU/mL 12.7 (H) FSH 1.5 - 12.4 mIU/mL 20.1 (H) ACTH 7.2 - 63.3 pg/mL 5.8 (L) IMAGING: CT abdomen/pelvis (12/08/23): Adrenals: No mass. ASSESSMENT & PLAN: Caitlin Elmore is a 60 year old male on f/u for primary hypothyroidism, and gonadotropins elevation. (E03.9) Acquired hypothyroidism (primary encounter diagnosis) Comment: Associated with pembrolizumab. On LT4 100 mcg daily. TSH normal in last test. Plan: levothyroxine (SYNTHROID) 100 mcg tablet, THYROID STIMULATING HORMONE, T4 FREE/FREE THYROXINE (R79.89) Abnormal FSH level Comment: With concomitant normal bioavailable testosterone. Suggests testicular damage. Will monitor levels with next test in 01/2026. . Plan: BIOAVAILABLE TESTOSTERONE, ADULT MALE, FOLLICLE STIMULATING HORMONE (R79.89) Abnormal LH level Comment: With concomitant normal bioavailable testosterone. Suggest some testicular damage. Will monitor levels, with next test in 1 year. Plan: BIOAVAILABLE TESTOSTERONE, ADULT MALE, LUTEINIZING HORMONE - Adrenal insufficiency has been ruled out. Pt still getting pembrolizumab, which has a low risk for adrenal insufficiency, but still increased compared to non users. (K21.9) Gastroesophageal reflux disease, unspecified whether esophagitis present Comment: Chronic. Doing much better with famotidine. Return to office: 8 months Chuck Jones MD documented in this encounter [facility] 05-28-2025 Note [facility] 05-09-2025 Telephone encounter Note Faxed to [employer] Jimmy Fairly at [phone]. [facility] 05-09-2025 [facility] [phone]. Letter sent to you Speedy: please dictate letter. 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 Also stating that his condition is stable with treatment. The form to fax back with letter is at [place] station. Thanks, Angela Ortega MA documented in this encounter [facility] 05-08-2025 Telephone encounter Note Letter sent to you T [facility] Work Phone: 05-07-2025 Telephone encounter Note Speedy: please dictate letter. 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 Also stating that his condition is stable with treatment. The form to fax back with letter is at [place] station. Thanks, Angela Ortega MA [facility] 05-02-2025 History of Present illness Narrative Subjective Patient ID: Caitlin Elmore is a 60 y.o. 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) 02/24/2023 Squamous cell cancer of tongue (HCC) 02/24/2023 Hypertension 02/24/2023 Hearing loss 04/09/2023 Acute swimmer's ear of right side 05/12/2023 Hypothyroid 12/15/2023 Arthritis 02/14/2024 Poor urinary stream 02/14/2024 Asymptomatic microscopic hematuria 02/14/2024 Benign prostatic hyperplasia with urinary obstruction 02/14/2024 Hyperlipidemia 02/14/2024 Adenomatous polyp of colon 02/14/2024 Hx of malignant neoplasm of prostate 02/14/2024 High prostate specific antigen (PSA) 02/14/2024 Severe protein-calorie malnutrition (HHS-HCC) 02/14/2024 Colon polyp 02/14/2024 Ear problems 02/14/2024 Mass in neck 02/14/2024 Chronic otorrhea of right ear 04/19/2024 Adrenal insufficiency (HCC) 05/14/2024 CKD (chronic kidney disease) 05/14/2024 Former smoker 05/14/2024 Lung cancer (HCC) 11/01/2024 Resolved Ambulatory Problems Diagnosis Date Noted Mass of neck 02/24/2023 Adenomatous polyp of colon 04/09/2023 Arthritis 04/09/2023 Asymptomatic microscopic hematuria 04/09/2023 Benign prostatic hyperplasia with urinary obstruction 04/09/2023 Family history of malignant neoplasm of prostate 04/09/2023 High prostate specific antigen (PSA) 04/09/2023 Hyperlipidemia 04/09/2023 Poor urinary stream 04/09/2023 Severe protein-calorie malnutrition (HHS-HCC) 12/19/2022 Past Medical History: Diagnosis Date BPH (benign prostatic hyperplasia) HL (hearing loss) 1973 Nocturia Personal history of irradiation [id number] Tongue cancer (HCC) Past Surgical History: Procedure Laterality Date ADENOIDECTOMY 1974 LARYNGOSCOPY 10/18/2022 w/ biopsy, Timmis MASTOID SURGERY TONSILLECTOMY 1972 TYMPANOSTOMY TUBE PLACEMENT 1973 No Known Allergies Current Outpatient Medications on File Prior to Visit Medication Sig Dispense Refill amLODIPine (Norvasc) 10 MG tablet Take 10 mg by mouth Daily famotidine (Pepcid) 20 MG tablet Take 20 mg by mouth in the morning and 20 mg before bedtime. ibuprofen 200 MG tablet Take by mouth levothyroxine (Synthroid, Levoxyl) 50 MCG tablet Take 50 mcg by mouth in the morning. Take before meals. (Patient taking differently: Take 100 mcg by mouth in the morning. Take before meals.) lisinopril 40 MG tablet Take 40 mg by mouth Daily pravastatin (Pravachol) 20 MG tablet Take 20 mg by mouth Daily tadalafil (Cialis) 10 MG tablet Take 10 mg by mouth Daily as needed for erectile dysfunction tamsulosin (Flomax) 0.4 MG 24 hr capsule Take 0.4 mg by mouth Daily [DISCONTINUED] hydrocortisone (Cortef) 5 MG tablet Take 5 mg by mouth Daily 2 tabs in AM, 1 tab PM No current facility-administered medications on file prior to visit. Objective Last Recorded Vitals Vitals: 05/02/25 1301 BP: 130/73 Pulse: 65 ENT Physical Exam Constitutional Appearance: patient appears well-developed and well-nourished, Oral Cavity/Oropharynx OC/OP comments: OC/OP/IDL - no mass or ulcer Neck Neck comments: Supple, FROM, No LAD Assessment/Plan Diagnoses and all orders for this visit: Squamous cell cancer of tongue (HCC) MEGHNA today. Quarterly appts till 10/2026 documented in this encounter [facility] 03-07-2025 Instructions Jackie Hoff - 03/07/2025 2:19 PM EDT Pembrolizumab today and q 6 weeks CTs as ordered by Dr. Ellsworth - 06/05/2025 at [facility] Consider rescheduling for 05/30/2025 to coordinate with RTC with me & treatment RTC in 12 weeks for continued treatment Labs same day documented in this encounter [facility] 03-07-2025 History of Present illness Narrative Images from the original note were not included. NAME: Caitlin Elmore [facility] NO.: [id number] DATE OF SERVICE: March 07, 2025 ([facility] Some elements in this clinic note that are critical to medical decision making have been carefully reviewed and included from a prior clinic note dated: December 13, 2024 ([facility]) Referring Provider: Elizabeth Borjas MD Additional Clinicians involved in Caitlin Elmore's care: Tayla Ellsworth DIAGNOSIS: HPV positive BOT SCC ASSESSMENT: 59 year old male here for follow up and treatment. BOT HPV positive locally advanced on concurrent therapy completed 01/06/2023 and received a total of 200 mg/m2 of [place] as well. PET with response 04/2023. CT [...] nodules growing and case discussed at . EBUS of hilar node was negative and so completed SBRT to the 2 pulmonary lesions end of June 2024. PET positive in the prostate and he follows urology CRI- Stable PLAN: Pembrolizumab today and q 6 weeks CTs as ordered by Dr. Ellsworth - 06/05/2025 at [facility] Consider rescheduling for 05/30/2025 to coordinate with RTC with sd & treatment RTC in 12 weeks for continued treatment Labs same day HPI: CASE HISTORY: Reverse Chronological Order 02/20/2025 - CT CAP: Chest: New right upper lobe mass obscuring the prior treated pulmonary nodules and obstructing the right anterior segmental bronchus, suspicious for recurrence. However, a component of evolving post radiation change cannot be completely excluded. PET/CT could be considered (approximately 8 months after SBRT). Increase in size of mediastinal lymph nodes and prior right apical partially calcified granuloma. Differential diagnoses include metastases, nonspecific reactive change with infectious/inflammatory process, immune check inhibitor related sarcoid-like reaction. Attention on follow-up is recommended. A/P: No significant change from prior exam. No metastasis in the abdomen. 10/31/2024 - CT Chest: Interval decrease in size of treated right upper lobe nodules, superior lesion demonstrating more pronounced decrease in size. The more inferiorly located nodule demonstrates trilaterally ablation and measures smaller than treatment planning CT dated 06/28/2024 but remains larger than 05/03/2024 exam. Consider close follow-up. New opacities are noted mostly in the right upper lobe, probably treatment related (radiation pneumonitis?), Although there are more localized opacities visible as well. Elongated mucous plugging of right upper lobe anterior segment bronchus presumed. Difficult to assess hilar region lymph nodes. Some of the mediastinal lymph nodes may measure similar to 06/28/2024 exam but are slightly larger compared to 05/03/2024 exam. Attention on follow-up recommended. Presumed prior granulomatous infection. 06/28/2024-07/05/2024 - Radiation to RUL lung 05/21/2024 - Bronchoscopy: Lymph node, 10R, biopsy: -Necrotic material and minute cluster of bland epithelial cells Comment: A minute cluster of epithelial cells is noted, without prominent atypia, favored to represent bronchial cells. No definite malignancy is identified. No definite lymph node tissue or granuloma is demonstrated. GMS and AFB/Melissa stains will be performed and results will be reported in an addendum. 04/2024 - CT CAP: Chest: Nodular opacities in right lung measuring up to 1.6 cm worrisome for metastases, increased in size since 12/08/23. Mild right hilar lymphadenopathy, either stable or slightly smaller. A/P: No evidence of intra-abdominal/pelvic metastases. No interval change since 12/08/23. Nonspecific subcentimeter hepatic foci, stable 01/02/2024-Current - Pembro monotherapy 11/2023 - CT CAP: Chest: Improvement in the previously seen pulmonary nodules [...] is suspicious for progression of metastatic adenopathy. A/P: No evidence of metastatic disease in the abdomen or pelvis. Enlargement of the prostate gland 09/26/2023-12/11/2023 - Carbo/Taxol + Pembro 4 cycles with response 09/2023 - PET/CT: CHEST: Right upper lobe lung nodule increased in size and metabolic activity, associated with new right hilar FDG avid hilar lymphadenopathy most suspicious for neoplastic process. Slightly more prominent nodules in the right lung with mild uptake are also seen. HEAD/NECK, ABDOMEN/PELVIS, & EXTREMITIES/SKELETON: No evidence of focal uptake to suggest FDG avid neoplastic process. 08/2023 - RUL biopsy: Lung, right upper lobe, nodule, biopsy: - HPV-associated squamous cell carcinoma (see comment). KRAS [id number].[id number]>A 51.2% VAF, Depth 4267x, Ex2 PIK3CA [id number].[id number]>A 21.7% VAF, Depth 5015x, Ex10 PDL-1 Insufficient 07/2023 - CT Chest: Since 04/14/2023, multiple enlarging right lung nodules, suspicious for metastases. No progressive lymphadenopathy. 04/2023 - PET/CT: NECK: Interval resolution of intense uptake in the right tongue base. Resolution of FDG avid cervical lymphadenopathy. CHEST: New subcentimeter right upper lobe pulmonary nodules, too small to accurately assess for FDG uptake. Differential includes infection/inflammation or metastasis. Attention on follow-up recommended. No FDG avid lymphadenopathy. ABDOMEN/PELVIS: Similar appearance of focal FDG uptake in the left prostate gland. This is concerning for primary prostatic malignancy. Correlation with MRI prostate without and with IV contrast is recommended. Otherwise, no FDG avid lymphadenopathy. EXTREMITIES/SKELETON: No suspicious FDG avid osseous lesion. 11/2022 - PET/CT: NECK: Intensely hypermetabolic right oropharyngeal region mass compatible with neoplastic process. Hypermetabolic right cervical lymphadenopathy suspicious for metastatic lymphadenopathy. CHEST: No evidence of FDG avid neoplastic process ABDOMEN/PELVIS: No evidence of FDG avid metastases. Increased activity in the prostatic region correlation with PSA is suggested. 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 10/2022 - CT Neck: Large posterior right tongue base mass consistent with history of neoplasm. Large right parapharyngeal/level 2 lymph node versus mass; also seen on prior ultrasound study and previously biopsied 11/21/2021 - Concurrent Cisplatin + radiation - Cisplatin completed: 12/21/2021 (total [place] dose: 200mg/m2), radiation completed: 01/06/2022 Updated Visit, March 07, 2025: CLARICE returns with his , Clarissa, for a follow up. We reviewed his recent CT images. Repeat CT Chest is scheduled for 06/05/[address] Ellsworth, consider obtaining 1 week prior while he is here for treatment. He is in agreement to continue single agent Keytruda, due for C10 today. Labs are stable, anemia is improving compared to last month. Email from Dr. Ellsworth: Scottie Zavala, I wanted to touch base with you about our mutual pt. I saw him for his sbrt follow up today and if you read the radiology report, you would think he has recurence. I actually like though they mentioned the possibility of radiation effects and based on my review of my plans for him and the way the target doses overlapper, my opinion is that the confluent changes are RT induced. I would just do repeat CT w contrast in 3-4 m and would NOT do a PET because it will be overly sensitive for the inflammation that is going on in there. You are seeing him on 03/07 for his next pembro so wanted to share with you before hand. Thanks Jose Angel Updated Visit, December 13, 2024: CLARICE returns to continue pembrolizumab. Recent CT of the chest shows decrease in size of lung nodules. He continues tolerating treatment well and offers no complaints today. Updated Visit, November 01, 2023: Caitlin returns today for consideration of maintenance Keytruda. He remains on pembrolizumab every 6 weeks with no complaints. He has had no significant medical changes. He denies any shortness of breath, rashes, diarrhea, nausea, vomiting, abdominal pain. Recent imaging is stable. Had a recent trip to [facility] in [place] with his family and getting ready to go on a cruise with his in December. Updated Visit, September 13, 2024: Caitlin Elmore returns for follow-up and continued treatment. He remains on pembrolizumab every 6 weeks and is tolerating it well. Since his last visit there has been no significant medical changes. He denies any side effects currently from treatment. He has an occasional cough with temperature changes. Otherwise, he states that his breathing is fine. He is feeling good. He denies nausea, vomiting, abdominal pain and diarrhea. No skin rashes. No fevers, chills, night sweats or signs/symptoms of infection. No bleeding or abnormal bruising. His appetite is good. He denies any difficulty swallowing. Overall he is doing well and wishes to proceed with treatment as planned. He is going on a family trip next month to the [facility]. Updated Visit, August 02, 2024: Doing well and tolerated RT well. Scans scheduled for October next year. Kidney function off a little due to decreased water intake. Encouraged him to improve on this. Initial Visit, June 20, 2024: Transition of Care Caitlin Elmore presents today to transition his care following Dr. Borjas's relocation. He is joined by his , Clarissa. Recent lymph node biopsy was negative for malignancy, positive for necrotic tissue. He will undergo one radiation treatment to lung nodules in about [address] Ellsworth. Continue pembrolizumab today and q 6 weeks. They have 5 children - ages 30-19. CLARICE is from [place], Clarissa is from [place]. May 08, 2024: Caitlin Elmore is a 59 year old year old male here for follow up. Doing well outside of mild arthralgia. Denies any nausea and or abdominal pain and or diarrhea. Denies any skin rash and or cough REVIEW OF SYSTEMS Per HPI and otherwise negative by full review of organ systems. ECOG PERFORMANCE STATUS: 1 PHYSICAL EXAMINATION: Vitals: BP 124/79 Pulse 79 Temp (Src) 97.2 (Temporal) Resp 16 Wt 197 lb 15.6 oz (89.8kg) SpO2 97% Body surface area is 2.11 meters squared. Exam limited to gross visualization where appropriate. [...] skin without rash, lesions, wounds or petechiae. ALLERGIES: ALLERGIES No Known Allergies MEDICATIONS: famotidine (PEPCID) 20 mg tablet^TAKE 1 TABLET BY MOUTH TWICE A DAY^Disp: 180 tablet^Rfl: 1 levothyroxine (SYNTHROID) 100 mcg tablet^Take 1 tablet by mouth once daily.^Disp: 90 tablet^Rfl: 3 pembrolizumab (KEYTRUDA INTRAVENOUS)^Inject intravenously.^Disp: ^Rfl: levothyroxine (SYNTHROID) 88 mcg tablet^Take 1 tablet by mouth once daily.^Disp: 90 tablet^Rfl: 1 ondansetron (ZOFRAN) 8 mg tablet^Take 1 tablet by mouth every 8 hours as needed for nausea/vomiting.^Disp: 90 tablet^Rfl: 2 prochlorperazine (COMPAZINE) 10 mg tablet^Take 1 tablet by mouth every 6 hours as needed.^Disp: 100 tablet^Rfl: 2 tamsulosin (FLOMAX) 0.4 mg^Take 0.4 mg by mouth.^Disp: ^Rfl: amLODIPine (NORVASC) 10 mg tablet^Take 10 mg by mouth once daily.^Disp: ^Rfl: lisinopril (ZESTRIL, PRINIVIL) 40 mg tablet^Take 40 mg by mouth once daily.^Disp: ^Rfl: pravastatin (PRAVACHOL) 20 mg tablet^Take 20 mg by mouth once daily.^Disp: ^Rfl: ibuprofen (MOTRIN) 200 mg tablet^Take 200 mg by mouth every 6 hours as needed.^Disp: ^Rfl: LABORATORY VALUES: WBC (k/uL) Date Value 03/07/2025 9.14 RBC (m/uL) Date Value 03/07/2025 4.79 Hemoglobin (g/dL) Date Value 03/07/2025 12.9 (L) Hematocrit (%) Date Value 03/07/2025 40.1 MCV (fL) Date Value 03/07/2025 83.7 MCH (pg) Date Value 03/07/2025 26.9 MCHC (g/dL) Date Value 03/07/2025 32.2 RDW-CV (%) Date Value 03/07/2025 13.3 Platelet Count (k/uL) Date Value 03/07/2025 225 MPV (fL) Date Value 03/07/2025 8.2 (L) Glucose (mg/dL) Date Value 03/07/2025 100 (H) BUN (mg/dL) Date Value 03/07/2025 23 Creatinine (mg/dL) Date Value 03/07/2025 1.27 (H) Sodium (mmol/L) Date Value 03/07/2025 135 (L) Potassium (mmol/L) Date Value 03/07/2025 4.8 Chloride (mmol/L) Date Value 03/07/2025 100 CO2 (mmol/L) Date Value 03/07/2025 26 Protein, Total (g/dL) Date Value 03/07/2025 7.0 Albumin (g/dL) Date Value 03/07/2025 4.4 Calcium, Total (mg/dL) Date Value 03/07/2025 10.2 Alkaline Phosphatase (U/L) Date Value 03/07/2025 97 Bilirubin, Total (mg/dL) Date Value 03/07/2025 0.3 AST (U/L) Date Value 03/07/2025 11 (L) ALT (U/L) Date Value 03/07/2025 10 DIAGNOSIS: (C01) 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) (primary encounter diagnosis) (Z29.89) Encounter for immunotherapy (E27.40) Adrenal insufficiency (HCC) (C10.9) Oropharnyx cancer (HCC) PAST MEDICAL HISTORY Diagnosis Date Hard of hearing HTN (hypertension) Hypercholesteremia Oropharyngeal cancer (HCC) PAST SURGICAL HISTORY Procedure Laterality Date BIOPSY OF ORAL TISSUE SOFT BRONCHOSCOPY W/PLACEMENT TRACHEAL STENT 09/2023 PAST SURGICAL HISTORY OF Right mastoidectomy and incus repair TONSILLECTOMY & ADENOIDECTOMY <AGE 13 Social History Tobacco Use Smoking status: Former Current packs/day: 0.00 Average packs/day: 1 pack/day for 35.0 years (35.0 ttl pk-yrs) Types: Cigarettes Start date: 10/13/1987 Quit date: 10/13/2022 Years since quittin.4 Passive exposure: Past Smokeless tobacco: Former Vaping Use Vaping status: Never Used Substance Use Topics Alcohol use: Yes Comment: occ Drug use: Not Currently Types: Marijuana FAMILY HISTORY Problem Relation Age of Onset Prostate Cancer Father Thyroid Cancer Sister Anesthesia Problems No Family History Malig Hyperthermia No Family History I spent a total of 40 minutes on the date of service which included preparing to see the patient, [id number] patient care, completing clinical documentation, performing a medically appropriate examination, counseling and educating the patient/family/caregiver, ordering medications, tests, or procedures, independently interpreting results (not separately reported), communicating results to the patient/family/caregiver, and care coordination (not separately reported). Lakia Medina MD, CPE Hematology and Oncology Services Provided at: [facility], [place], [place] Scribe Attestation: This note was scribed by Jackie Hoff on March 07, 2025 under the direction and supervision of Dr. Lakia Medina. I attest that all of the information documented is correct to the best of my knowledge. Provider Attestation: I, Lakia Medina MD, attest that all information documented by the above scribe is correct, and was supervised by me and under my direction. CC: MD Tayla Clarke documented in this encounter [facility] 03-07-2025 Note [facility] 02-20-2025 History of Present illness Narrative Radiation Oncology - Follow Up Note PATIENT NAME: Caitlin Elmore PATIENT DIAGNOSIS: Oligoprogressive 2 RUL lung metastases, from previously treated H&N cancer. S/p lung SBRT 07/05/2024 Single isocenter for 2 lung lesions: 3400 cGy in 1 fx ONCOLOGIC HX: 1. HPV positive BOT SCC Treatment History: 1. Concurrent Cisplatin and XRT 11/21/2021- XRTY completed 01/06/2023 and last dose of chemo 12/21/2022 (Total [place] dose= 200 mg/m2) 2. Recurrence in the Lung Biopsy proven 08/2023: PDL-1 insufficient and KRAS G12A, PIK3CA (Targeted Oncology only due to sample) 3. Carbo/Taxol ad Pembro 09/26/2023-12/11/2023 (Cycle 4) with response, Pembro monotherapy INTERVAL HISTORY: Patient presents today for follow up visit. He overall has been doing well, denies any SOB, no consitutional changes, still on surveillance from the systemic therapy perspective. He has good energy and appetite, still able to sleep well. He does report intermittent cough which has been present since the end of treatment. It is intermittent, worsened by laying flat. He has been sleeping sitting up. Most of the time the cough is non productive but he will occasionally bring up white sputum. He dies any associated SOB or chest pain. 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 Planning on taking trip to [facility] over the summer. May visit [facility] later this month as his daughter is planning on moving there. Results CT CHEST February 20, 2025 Impression IMPRESSION: 1. New right upper lobe mass obscuring the prior treated pulmonary nodules and obstructing the right anterior segmental bronchus, suspicious for recurrence. However, a component of evolving post radiation change cannot be completely excluded. PET/CT could be considered (approximately 8 months after SBRT). 2. Increase in size of mediastinal lymph nodes and prior right apical partially calcified granuloma. Differential diagnoses include metastases, nonspecific reactive change with infectious/inflammatory process, immune check inhibitor related sarcoid-like reaction. Attention on follow-up is recommended. CT ABDOMEN 02/20/2025 9:27 AM - Radiology, [place] In Impression IMPRESSION: No significant change from prior exam. No metastasis in the abdomen. ALLERGIES No Known Allergies MEDICATIONS: famotidine (PEPCID) 20 mg tablet TAKE 1 TABLET BY MOUTH TWICE A DAY levothyroxine (SYNTHROID) 100 mcg tablet Take 1 tablet by mouth once daily. pembrolizumab (KEYTRUDA INTRAVENOUS) Inject intravenously. levothyroxine (SYNTHROID) 88 mcg tablet Take 1 tablet by mouth once daily. ondansetron (ZOFRAN) 8 [...] hours as needed. REVIEW OF SYSTEMS: GENERAL: Negative for weight loss, fevers, chills, or night sweats. HEENT: Negative for sudden vision or hearing changes. NECK: Negative for masses in the neck. [...] Negative for bleeding or easy bruising. SKIN: Negative for rashes or other skin changes. PHYSICAL EXAM: VS: BP 126/71 Pulse 84 Temp 36.5 C (97.7 F) (Temporal) Resp 20 Wt 89.5 kg (197 lb 5 oz) SpO2 100% BMI 27.90 kg/m KPS: 100 General Appearance: Alert and oriented. No acute distress. HEENT: NCAT. Sclera anicteric. PERRL. EOMI. Neck: Normal ROM. No palpable cervical or supraclavicular adenopathy. Chest: No respiratory distress. Lungs clear to auscultation bilaterally. Heart: Regular rate and rhythm. Abdomen: Soft. Nontender. Nondistended. Musculoskeletal: No edema. Normal ROM in extremities. No bone or spine tenderness. Neuro: Speech fluent. Gait normal. No focal deficits. Skin: No rashes noted Lymphatics: No palpable lymphadenopathy. TOXICITY ASSESSMENT CTC3: No ASSESSMENT/PLAN: Overall the patient has been doing well clinically. We had a discussion of the results of his CT scan, and we spoke about how it is more likely scar/treatment effect vs. Cancer recurrence, but we will continue to watch and repeat scans in 3-[address] will be with IV contrast. Jada (Mino) Dequan Medical Student February 20, 2025 [facility] [place], [facility] NOTE OF PERSONAL INVOLVEMENT IN CARE I have personally participated in the bassett components of the case including a review of imaging and agree, with the following amendments: I personally reviewed the imaging and compared it to his simulation and treatment plans. In my opinion, the new development of a confluent R lung mass is most in keeping with progressing confluent radiation induced lung changes merging between the two treatment abarca. His clinical status supports this. We will see him in f/up with [address] chest w/ imaging. Tayla Ellsworth MD cc: Julian Burton [address] [place] [address] Lakia Medina MD Hematology/Oncology Additional intake questions: Has the patient had fever, nausea, vomiting, diarrhea, constipation, fatigue for > 1 week? No Does the patient have a decreased appetite? No Does patient want to see a Transition Lead? No (yes to any of above refer patient to schedulers for dietitian appointment) ) Does patient have any new or increased numbness or tingling of extremities? No Is patient interested in fertility information? No Does patient need any prescription refills? No Does patient have an advanced directive in place? No, Patient referred to Resource Center Electronically Signed By: Maddy Quach LPN Additional intake questions: documented in this encounter [facility] 02-20-2025 Note [facility] 02-20-2025 Note [facility] 02-20-2025 History of Present illness Narrative Radiology Service Progress Note DATE OF SERVICE: February 20, 2025 TIME: 7:54 AM PATIENT WEIGHT: 205 LBS PATIENT IDENTITY VERIFICATION COMPLETED USING TWO (2) STANDARD IDENTIFIERS: Name and Date of confirmed by patient verbally and Name and Date of confirmed by identification band. FALL SCREENING: Has the patient had 2 falls in the last year or 1 fall with injury or currently using an Ambulatory Assistive Device (Walker, Cane, Wheelchair, Crutches, etc.)? No PATIENT GENDER DATA: Assigned male at ALLERGIES: Reviewed and unchanged CONTRAST ALLERGY: No EXAM: CT -CONTRAST INDUCED NEPHROPATHY RISK FACTORS: Patient age > 60 years CREATININE: Creatinine Date Value Ref Range Status 01/24/2025 1.38 (H) 0.73 - 1.22 mg/dL Final 12/13/2024 1.37 (H) 0.73 - 1.22 mg/dL Final 11/01/2024 1.48 (H) 0.73 - 1.22 mg/dL Final Estimated Glomerular Filtration Rate Date Value Ref Range Status 01/24/2025 59 (L) >=60 mL/min/1.73m Final Comment: Estimated Glomerular Filtration Rate (eGFR) is calculated using the 2020 CKD-EPI creatinine equation. This equation utilizes serum creatinine, sex, and age as parameters. The creatinine assay has traceable calibration to isotope dilution-mass spectrometry. Refer to KDIGO guidelines for clinical interpretation. In patients with unstable renal function, e.g. those with acute kidney injury, the eGFR may not accurately reflect actual GFR. P.O.C.T. RESULTS: N/A February 20, 2025 TREATMENT: N/A IV SITE: Ambulatory: A peripheral IV was started in the Right antecubital site with a Angio cath: 22 gauge. IV SITE APPEARANCE: Clean,Dry and Intact SIGNATURE: Anabella Villagomez RN PATIENT NAME: Caitlin Elmore DATE: February 20, 2025 TIME: 7:54 AM Radiology Service Progress Note PATIENT NAME: Caitlin Elmore DATE OF SERVICE: February 20, 2025 TIME: 8:47 AM PATIENT IDENTITY VERIFICATION COMPLETED USING TWO (2) IDENTIFIERS: Name and Date of confirmed by patient verbally and Name and Date of confirmed by identification band. FALL SCREENING: Has the patient had 2 falls in the last year or 1 fall with injury or currently using an Ambulatory Assistive Device (Walker, Cane, Wheelchair, Crutches, etc.)? No PATIENT GENDER DATA: Assigned male at PATIENT RELEVANT IMPLANT DATA REVIEWED: Yes PATIENT PRESENTS WITH 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 OR ATTACHED PRESIDENT & CEO: No RADIOLOGY DEPARTMENT: CT; Exam(s) Completed: Abdomen and Chest PERIPHERAL IV DATA: Site assessment: Clean,Dry and Intact, Site disposition Discontinued SIGNED BY: AMARILIS Serrano RT(R) February 20, 2025 8:47 AM documented in this encounter [facility] 02-20-2025 Note [facility] 02-20-2025 Note [facility] 02-03-2025 Note [facility] 01-31-2025 History of Present illness Narrative Subjective Patient ID: Caitlin Elmore is a 59 y.o. 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) 02/24/2023 Squamous cell cancer of tongue (CMS/HCC) 02/24/2023 Hypertension (CMS/HCC) 02/24/2023 Hearing loss 04/09/2023 Acute swimmer's ear of right side 05/12/2023 Hypothyroid (CMS/HCC) 12/15/2023 Arthritis 02/14/2024 Poor urinary stream 02/14/2024 Asymptomatic microscopic hematuria 02/14/2024 Benign prostatic hyperplasia with urinary obstruction 02/14/2024 Hyperlipidemia (CMS/HCC) 02/14/2024 Adenomatous polyp of colon 02/14/2024 Hx of malignant neoplasm of prostate 02/14/2024 High prostate specific antigen (PSA) 02/14/2024 Severe protein-calorie malnutrition (CMS/HCC) 02/14/2024 Colon polyp 02/14/2024 Ear problems 02/14/2024 Mass in neck 02/14/2024 Chronic otorrhea of right ear 04/19/2024 Adrenal insufficiency (CMS/HCC) 05/14/2024 CKD (chronic kidney disease) 05/14/2024 Former smoker 05/14/2024 Lung cancer (CMS/HCC) 11/01/2024 Resolved Ambulatory Problems Diagnosis Date Noted Mass of neck 02/24/2023 Adenomatous polyp of colon 04/09/2023 Arthritis 04/09/2023 Asymptomatic microscopic hematuria 04/09/2023 Benign prostatic hyperplasia with urinary obstruction 04/09/2023 Family history of malignant neoplasm of prostate 04/09/2023 High prostate specific antigen (PSA) 04/09/2023 Hyperlipidemia (CMS/HCC) 04/09/2023 Poor urinary stream 04/09/2023 Severe protein-calorie malnutrition (CMS/HCC) 12/19/2022 Past Medical History: Diagnosis Date BPH (benign prostatic hyperplasia) HL (hearing loss) 1973 Nocturia Personal history of irradiation [id number] Tongue cancer (CMS/HCC) Past Surgical History: Procedure Laterality Date ADENOIDECTOMY 1975 LARYNGOSCOPY 10/18/2022 w/ biopsy, [place] MASTOID SURGERY TONSILLECTOMY 1972 TYMPANOSTOMY TUBE PLACEMENT 1973 No Known Allergies Current Outpatient Medications on File Prior to Visit Medication Sig Dispense Refill amLODIPine (Norvasc) 10 MG tablet Take 10 mg by mouth Daily hydrocortisone (Cortef) 5 MG tablet Take 5 mg by mouth Daily 2 tabs in AM, 1 tab PM ibuprofen 200 MG tablet Take by mouth levothyroxine (Synthroid, Levoxyl) 50 MCG tablet Take 50 mcg by mouth in the morning. Take before meals. (Patient taking differently: Take 100 mcg by mouth in the morning. Take before meals.) lisinopril 40 MG tablet Take 40 mg by mouth Daily pravastatin (Pravachol) 20 MG tablet Take 20 mg by mouth Daily tadalafil (Cialis) 10 MG tablet Take 10 mg by mouth Daily as needed for erectile dysfunction tamsulosin (Flomax) 0.4 MG 24 hr capsule Take 0.4 mg by mouth Daily No current facility-administered medications on file prior to visit. Objective Last Recorded Vitals Vitals: 01/31/25 1308 BP: 129/80 Pulse: 73 ENT Physical Exam Constitutional Appearance: patient appears well-developed and well-nourished, Oral Cavity/Oropharynx OC/OP comments: OC/OP/IDL - no mass or ulcer Neck Neck comments: Supple, FROM, No LAD Assessment/Plan Diagnoses and all orders for this visit: Squamous cell cancer of tongue (CMS/HCC) MEGHNA today. Quarterly appts till 10/2026 documented in this encounter [facility] 01-17-2025 Telephone encounter Note Images from the original note were not included. Pharmacy comment: REQUEST FOR 90 DAYS PRESCRIPTION. Most recent Endocrinology visit: Last encounter Visit on 01/10/2025 (with Chuck Jones) 05/10/2024 in [facility] with CHUCK JONES for Acquired hypothyroidism 08/09/2024 in [facility] with CHUCK JONES for Acquired hypothyroidism 01/10/2025 in [facility] with CHUCK JONES for Adrenal insufficiency (HCC) Upcoming Endocrinology Appointments - Next 365 Days Visit Type Date Time Department EST LILIYA PATIENT 05/09/2025 11:40 AM [facility] Requested Prescriptions Pending Prescriptions Disp Refills famotidine (PEPCID) 20 mg tablet [Pharmacy Med Name: FAMOTIDINE 20 MG TABLET] 180 tablet 1 Sig: TAKE 1 TABLET BY MOUTH TWICE A DAY Latest Ref Rng & Units 12/13/2024 11/01/2024 09/13/2024 Hemoglobin A1C Hemoglobin A1C 4.3 - 5.6 % 5.2 5.2 5.0 Latest Ref Rng & Units 12/13/2024 11/01/2024 09/13/2024 TSH TSH 0.270 - 4.200 mIU/L 4.070 4.700 3.930 Free T3: None on file in the last 12 months Latest Ref Rng & Units 11/01/2024 05/17/2024 FREE T4 Free T4 0.9 - 1.7 ng/dL 1.5 1.2 Thyroglobulin: None on file in the last 12 months Vitamin D: None on file in the last 12 months Latest Ref Rng & Units 12/13/2024 11/01/2024 09/13/2024 Hematocrit Hematocrit 39.0 - 51.0 % 41.3 44.2 44.6 Latest Ref Rng & Units 12/13/2024 11/01/2024 09/13/2024 Creatinine Creatinine 0.73 - 1.22 mg/dL 1.37 1.48 1.21 Latest Ref Rng & Units 12/13/2024 11/01/2024 09/13/2024 eGFR EGFR >=60 mL/min/1.73m 60 55 69 Latest Ref Rng & Units 12/13/2024 11/01/2024 09/13/2024 Potassium Potassium 3.7 - 5.1 mmol/L 4.1 4.0 4.0 Latest Ref Rng & Units 11/01/2024 05/17/2024 Testosterone Testosterone 193 - 824 ng/dL 594 613 Latest Ref Rng & Units 05/17/2024 IGF Insulin-like Growth Factor I 56 - 203 ng/mL 187 Latest Ref Rng & Units 11/01/2024 05/17/2024 Prolactin Prolactin 4.1 - 25.1 ng/mL 9.0 14.4 [facility] 01-17-2025 Miscellaneous Notes Images from the original note were not included. Pharmacy comment: REQUEST FOR 90 DAYS PRESCRIPTION. Most recent Endocrinology visit: Last encounter Visit on 01/10/2025 (with Chuck Jones) 05/10/2024 in [facility] with CHUCK JONES for Acquired hypothyroidism 08/09/2024 in [facility] with CHUCK JONES for Acquired hypothyroidism 01/10/2025 in [facility] with CHUCK JONES for Adrenal insufficiency (HCC) Upcoming Endocrinology Appointments - Next 365 Days Visit Type Date Time Department EST LILIYA PATIENT 05/09/2025 11:40 AM [facility] Requested Prescriptions Pending Prescriptions Disp Refills famotidine (PEPCID) 20 mg tablet [Pharmacy Med Name: FAMOTIDINE 20 MG TABLET] 180 tablet 1 Sig: TAKE 1 TABLET BY MOUTH TWICE A DAY Latest Ref Rng & Units 12/13/2024 11/01/2024 09/13/2024 Hemoglobin A1C Hemoglobin A1C 4.3 - 5.6 % 5.2 5.2 5.0 Latest Ref Rng & Units 12/13/2024 11/01/2024 09/13/2024 TSH TSH 0.270 - 4.200 mIU/L 4.070 4.700 3.930 Free T3: None on file in the last 12 months Latest Ref Rng & Units 11/01/2024 05/17/2024 FREE T4 Free T4 0.9 - 1.7 ng/dL 1.5 1.2 Thyroglobulin: None on file in the last 12 months Vitamin D: None on file in the last 12 months Latest Ref Rng & Units 12/13/2024 11/01/2024 09/13/2024 Hematocrit Hematocrit 39.0 - 51.0 % 41.3 44.2 44.6 Latest Ref Rng & Units 12/13/2024 11/01/2024 09/13/2024 Creatinine Creatinine 0.73 - 1.22 mg/dL 1.37 1.48 1.21 Latest Ref Rng & Units 12/13/2024 11/01/2024 09/13/2024 eGFR EGFR >=60 mL/min/1.73m 60 55 69 Latest Ref Rng & Units 12/13/2024 11/01/2024 09/13/2024 Potassium Potassium 3.7 - 5.1 mmol/L 4.1 4.0 4.0 Latest Ref Rng & Units 11/01/2024 05/17/2024 Testosterone Testosterone 193 - 824 ng/dL 594 613 Latest Ref Rng & Units 05/17/2024 IGF Insulin-like Growth Factor I 56 - 203 ng/mL 187 Latest Ref Rng & Units 11/01/2024 05/17/2024 Prolactin Prolactin 4.1 - 25.1 ng/mL 9.0 14.4 documented in this encounter [facility] [place] 01-16-2025 Telephone encounter Note Patient has been scheduled for his STIM Test [facility] [place] 01-16-2025 Miscellaneous Notes Patient has been scheduled for his STIM Test Patient will need assistance in scheduling Stim Test. Thank You documented in this encounter [facility] [place] 01-15-2025 Telephone encounter Note Patient will need assistance in scheduling Stim Test. Thank You [facility] [place] 01-10-2025 Instructions Chuck Jones MD - 01/10/2025 11:55 AM EDT Take levothyroxine on an empty stomach at least 30 minutes before breakfast or fluids other than water, and other medications. If taking multivitamins, calcium or iron, separate them by at least 4 hours form the time you take levothyroxine. If you ever miss a levothyroxine pill in the morning, take it later in the day (2 hour after a meal or half an hour or more before the next meal) or on the following morning. Use a pill box and make sure you take your full weekly dose. You will be called for the test to stimulate your adrenal glands and check the cortisol response. Famotidine 20 mg daily in the morning, at least 1 hour after levothyroxine. documented in this encounter [facility] [place] 01-10-2025 Note [facility] 01-10-2025 History of Present illness Narrative ENDOCRINOLOGY The patient was referred by Tremaine Gomez. HISTORY HPI: Caitlin Elmore is a 59 year old male who comes in here on f/u for possible adrenal insufficiency, gonadotropins elevation, and TSH elevation associated with pembrolizumab use. Pt started to feel exhausted since end of February 2024. 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 From Oncology note: Concurrent Cisplatin and XRT 11/21/2021- XRTY completed 01/06/2023 and last dose of chemo 12/21/2022 (Total Hoopa dose= 200 mg/m2). Recurrence in the Lung [...] infusions, 10 mg, grossly once a month, from 11/21/22 to 12/12/23. Pt gets very tired when he works physically. He feels OK on not working days. He feels more tired around noon-1 PM. No changes in vision. Peripheral vision is good. No significant headaches. Does not wear rings. No changes in shoe size. No increased sweating. Decreased sex drive since 2021, before starting chemo. No growth or tenderness on breasts. Cortisol was 10.6 at 7:57 AM on 05/17/24, arguing against any significant adrenal insufficiency. After that, hydrocortisone was discontinued and Pt did not notice any difference as compared when being on it. Now on LT4 88 mcg. -Sister with thyroid cancer. REVIEW OF SYSTEMS: GASTROINTESTINAL: Frequent heartburn, mostly at night. He takes Roll Aids for it. No significant constipation or diarrhea. GENITOURINARY: Nocturia average: 3-4. No new urinary complaints. No significant incontinence. PAST MEDICAL HISTORY Diagnosis Date Hard of hearing HTN (hypertension) Hypercholesteremia Oropharyngeal cancer (HCC) PAST SURGICAL HISTORY Procedure Laterality Date BIOPSY OF ORAL TISSUE SOFT BRONCHOSCOPY W/PLACEMENT TRACHEAL STENT 09/2023 PAST SURGICAL HISTORY OF Right mastoidectomy and incus repair TONSILLECTOMY & ADENOIDECTOMY <AGE 13 Social History Tobacco Use Smoking status: Former Current packs/day: 0.00 Average packs/day: 1 pack/day for 35.0 years (35.0 ttl pk-yrs) Types: Cigarettes Start date: 10/13/1987 Quit date: 10/13/2022 Years since quittin.2 Passive exposure: Past Smokeless tobacco: Former Vaping Use Vaping status: Never Used Substance Use Topics Alcohol use: Yes Comment: occ Drug use: Not Currently Types: Marijuana FAMILY HISTORY Problem Relation Age of Onset Prostate Cancer Father Thyroid Cancer Sister Anesthesia Problems No Family History Malig Hyperthermia No Family History Current Outpatient Medications Medication Sig pembrolizumab (KEYTRUDA INTRAVENOUS) Inject intravenously. levothyroxine (SYNTHROID) 88 mcg tablet Take 1 tablet by mouth once daily. ondansetron (ZOFRAN) 8 [...] ALLERGIES No Known Allergies PHYSICAL EXAM: BP 98/56 (BP Site: Left Arm, BP Position: Sitting, BP Cuff Size: Large Adult) Pulse 89 Wt 93.5 kg (206 lb 2.1 oz) BMI 29.15 kg/m Body mass index is 29.15 kg/m . Appearance: Well appearing, in no acute distress. HEENT: Anicteric sclerae. Non-injected conjunctivae. Heart: RRR. No detectable murmur, gallop, or rub. Extremities: No deformities. No edema. Neuro: Alert, speaking coherently. No involuntary motions. Good proximal strength. Skin: Normal temperature. No rash. LABS RESULTS: Latest Ref Rng 05/17/2024 06/20/2024 08/02/2024 09/13/2024 11/01/2024 12/13/2024 Albumin 3.9 - 4.9 g/dL 4.6 4.8 Sex Hormone Bind GLB 14 - 82 nmol/L 45 54 Testosterone 193 - 824 ng/dL 613 594 Testosterone, Free Calculation 38.0 - 120.0 pg/mL 98.4 82.5 Testosterone, Percent Free 1.1 - 2.6 % 1.6 1.4 Testosterone, Bioavailable 105.0 - 324.0 ng/dL 283.2 247.4 TSH 0.270 - 4.200 mIU/L 5.520 (H) 8.640 (H) 3.930 4.700 (H) 4.070 ACTH 7.2 - 63.3 pg/mL Cortisol 4.8 - 19.5 ug/dL 10.6 5.7 8.3 6.9 6.7 5.8 LH 1.8 - 10.8 mIU/mL 13.7 (H) 12.7 (H) FSH 1.5 - 12.4 mIU/mL 22.3 (H) 20.1 (H) Prolactin 4.1 - 25.1 ng/mL 14.4 9.0 Free T4 0.9 - 1.7 ng/dL 1.2 1.5 Insulin-like Growth Factor I 56 - 203 ng/mL 187 IMAGING: CT abdomen/pelvis (12/08/23): Adrenals: No mass. ASSESSMENT & PLAN: Caitlin Elmore is a 59 year old male on f/u for possible adrenal insufficiency, gonadotropins elevation, and TSH elevation associated with pembrolizumab use. (E03.9) Acquired hypothyroidism (primary encounter diagnosis) Comment: Associated with pembrolizumab. On LT4 to 88 mcg daily. TSH on upper normal level. Pt feels tired. Will aim for a mid normal TSH. Plan to increase LT4 to 100 mcg daily. Plan: levothyroxine (SYNTHROID) 100 mcg tablet, THYROID STIMULATING HORMONE, T4 FREE/FREE THYROXINE (R79.89) Abnormal FSH level Comment: With concomitant normal bioavailable testosterone. Suggests testicular damage. Will monitor levels with next text in 1 year. Plan: BIOAVAILABLE TESTOSTERONE, ADULT MALE, FOLLICLE STIMULATING HORMONE, THYROID STIMULATING HORMONE, T4 FREE/FREE THYROXINE, CORTISOL, SERUM (R79.89) Abnormal LH level Comment: With concomitant normal bioavailable testosterone. Suggest some testicular damage. Will monitor levels, with next test in 1 year. Plan: BIOAVAILABLE TESTOSTERONE, ADULT MALE, LUTEINIZING HORMONE (E27.40) Adrenal insufficiency (HCC) (primary encounter diagnosis) Comment: No evidence when tested in 05/2024. Pt still getting pembrolizumab, which has a low risk for adrenal insufficiency, but still increased compared to non users. Plan: Will do a Cosyntropin stimulation test. Therapy plan has been placed. (K21.9) Gastroesophageal reflux disease, unspecified whether esophagitis present Comment: Chronic. Taking calcium carbonate several times per week. We discussed possibility of trying famotidine instead. Pt agreed. Plan: famotidine (PEPCID AC) 20 mg tablet, every morning Return to office: 3 months Chuck Jones MD documented in this encounter [facility] [place] 12-13-2024 Instructions Jackie Hoff - 12/13/2024 1:47 PM EST Pembrolizumab today and every 6 weeks CTs as ordered by Dr. Ellsworth [facility] in 12 weeks for treatment Labs same day documented in this encounter [facility] [place] 12-13-2024 History of Present illness Narrative Images from the original note were not included. NAME: Caitlin Elmore [facility] NO.: [id number] DATE OF SERVICE: December 13, 2024 (Sascha) Some elements in this clinic note that are critical to medical decision making have been carefully reviewed and included from a prior clinic note dated: November 01, 2024 (Maria Guadalupe) Referring Provider: Elizabeth Borjas MD Additional Clinicians involved in Caitlin Elmore's care: DIAGNOSIS: HPV positive BOT SCC ASSESSMENT: 59 year old male here for follow up and treatment. BOT HPV positive locally advanced on concurrent therapy completed 01/06/2023 and received a total of 200 mg/m2 of nanwalek as well. PET with response 04/2023. CT [...] nodules growing and case discussed at . EBUSof hilar node was negative and so completed SBRT to the 2 pulmonary lesions end of June 2024. PET positive in the prostate and he follows urology CRI- Stable PLAN: Pembrolizumab today and every 6 weeks CTs ar ordered by Dr. Ellsworth RTC in 12 weeks for treatment Labs same day HPI: CASE HISTORY: Reverse Chronological Order 10/31/2024 - CT Chest: Interval decrease in size of treated right upper lobe nodules, superior lesion demonstrating more pronounced decrease in size. The more inferiorly located nodule demonstrates trilaterally ablation and measures smaller than treatment planning CT dated 06/28/2024 but remains larger than 05/03/2024 exam. Consider close follow-up. New opacities are noted mostly in the right upper lobe, probably treatment related (radiation pneumonitis?), Although there are more localized opacities visible as well. Elongated mucous plugging of right upper lobe anterior segment bronchus presumed. Difficult to assess hilar region lymph nodes. Some of the mediastinal lymph nodes may measure similar to 06/28/2024 exam but are slightly larger compared to 05/03/2024 exam. Attention on follow-up recommended. Presumed prior granulomatous infection. 06/28/2024-07/05/2024 - Radiation to RUL lung 05/21/2024 - Bronchoscopy: Lymph node, 10R, biopsy: -Necrotic material and minute cluster of bland epithelial cells Comment: A minute cluster of epithelial cells is noted, without prominent atypia, favored to represent bronchial cells. No definite malignancy is identified. No definite lymph node tissue or granuloma is demonstrated. GMS and AFB/Melissa stains will be performed and results will be reported in an addendum. 04/2024 - CT CAP: Chest: Nodular opacities in right lung measuring up to 1.6 cm worrisome for metastases, increased in size since 12/08/23. Mild right hilar lymphadenopathy, either stable or slightly smaller. A/P: No evidence of intra-abdominal/pelvic metastases. No interval change since 12/08/23. Nonspecific subcentimeter hepatic foci, stable 01/02/2024-Current - Pembro monotherapy 11/2023 - CT CAP: Chest: Improvement in the previously seen pulmonary nodules [...] is suspicious for progression of metastatic adenopathy. A/P: No evidence of metastatic disease in the abdomen or pelvis. Enlargement of the prostate gland 09/26/2023-12/11/2023 - Carbo/Taxol + Pembro 4 cycles with response 09/2023 - PET/CT: CHEST: Right upper lobe lung nodule increased in size and metabolic activity, associated with new right hilar FDG avid hilar lymphadenopathy most suspicious for neoplastic process. Slightly more prominent nodules in the right lung with mild uptake are also seen. HEAD/NECK, ABDOMEN/PELVIS, & EXTREMITIES/SKELETON: No evidence of focal uptake to suggest FDG avid neoplastic process. 08/2023 - RUL biopsy: Lung, right upper lobe, nodule, biopsy: - HPV-associated squamous cell carcinoma (see comment). KRAS [id number]:c.35G>A 51.2% VAF, Depth 4267x, Ex2 PIK3CA [id number].1633G>A 21.7% VAF, Depth 5015x, Ex10 PDL-1 Insufficient 07/2023 - CT Chest: Since 04/14/2023, multiple enlarging right lung nodules, suspicious for metastases. No progressive lymphadenopathy. 04/2023 - PET/CT: NECK: Interval resolution of intense uptake in the right tongue base. Resolution of FDG avid cervical lymphadenopathy. CHEST: New subcentimeter right upper lobe pulmonary nodules, too small to accurately assess for FDG uptake. Differential includes infection/inflammation or metastasis. Attention on follow-up recommended. No FDG avid lymphadenopathy. ABDOMEN/PELVIS: Similar appearance of focal FDG uptake in the left prostate gland. This is concerning for primary prostatic malignancy. Correlation with MRI prostate without and with IV contrast is recommended. Otherwise, no FDG avid lymphadenopathy. EXTREMITIES/SKELETON: No suspicious FDG avid osseous lesion. 11/2022 - PET/CT: NECK: Intensely hypermetabolic right oropharyngeal region mass compatible with neoplastic process. Hypermetabolic right cervical lymphadenopathy suspicious for metastatic lymphadenopathy. CHEST: No evidence of FDG avid neoplastic process ABDOMEN/PELVIS: No evidence of FDG avid metastases. Increased activity in the prostatic region correlation with PSA is suggested. 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 10/2022 - CT Neck: Large posterior right tongue base mass consistent with history of neoplasm. Large right parapharyngeal/level 2 lymph node versus mass; also seen on prior ultrasound study and previously biopsied 11/21/2021 - Concurrent Cisplatin + radiation - Cisplatin completed: 12/21/2021 (total nanwalek dose: 200mg/m2), radiation completed: 01/06/2022 Updated Visit, December 13, 2024: CLARICE returns to continue pembrolizumab. Recent CT of the chest shows decrease in size of lung nodules. He continues tolerating treatment well and offers no complaints today. Updated Visit, November 01, 2023: Caitlin returns today for consideration of maintenance Keytruda. He remains on pembrolizumab every 6 weeks with no complaints. He has had no significant medical changes. He denies any shortness of breath, rashes, diarrhea, nausea, vomiting, abdominal pain. Recent imaging is stable. Had a recent trip to [facility] in [place] with his family and getting ready to go on a cruise with his in December. Updated Visit, September 13, 2024: Caitlin Elmore returns for follow-up and continued treatment. He remains on pembrolizumab every 6 weeks and is tolerating it well. Since his last visit there has been no significant medical changes. He denies any side effects currently from treatment. He has an occasional cough with temperature changes. Otherwise, he states that his breathing is fine. He is feeling good. He denies nausea, vomiting, abdominal pain and diarrhea. No skin rashes. No fevers, chills, night sweats or signs/symptoms of infection. No bleeding or abnormal bruising. His appetite is good. He denies any difficulty swallowing. Overall he is doing well and wishes to proceed with treatment as planned. He is going on a family trip next month to the [facility]. Updated Visit, August 02, 2024: Doing well and tolerated RT well. Scans scheduled for October next year. Kidney function off a little due to decreased water intake. Encouraged him to improve on this. Initial Visit, June 20, 2024: Transition of Care Caitlin Elmore presents today to transition his care following Dr. Borjas's relocation. He is joined by his , Clarissa. Recent lymph node biopsy was negative for malignancy, positive for necrotic tissue. He will undergo one radiation treatment to lung nodules in about [address] Ellsworth. Continue pembrolizumab today and q 6 weeks. They have 5 children - ages 30-19. CLARICE is from [place], Clarissa is from [place]. May 08, 2024: Caitlin Elmore is a 59 year old year old male here for follow up. Doing well outside of mild arthralgia. Denies any nausea and or abdominal pain and or diarrhea. Denies any skin rash and or cough REVIEW OF SYSTEMS Per HPI and otherwise negative by full review of organ systems. ECOG PERFORMANCE STATUS: 1 PHYSICAL EXAMINATION: Vitals: BP 127/81 Pulse 66 Temp 97 Resp 16 Wt 217 lb 9.5 oz (98.7kg) SpO2 97% Body surface area is 2.22 meters squared. Exam limited to gross visualization where appropriate. [...] skin without rash, lesions, wounds or petechiae. ALLERGIES: ALLERGIES No Known Allergies MEDICATIONS: pembrolizumab (KEYTRUDA INTRAVENOUS) Inject intravenously. levothyroxine (SYNTHROID) 88 mcg tablet Take 1 tablet by mouth once daily. ondansetron (ZOFRAN) 8 [...] by mouth every 6 hours as needed. LABORATORY VALUES: WBC (k/uL) Date Value 12/13/2024 6.27 RBC (m/uL) Date Value 12/13/2024 4.87 Hemoglobin (g/dL) Date Value 12/13/2024 14.1 Hematocrit (%) Date Value 12/13/2024 41.3 MCV (fL) Date Value 12/13/2024 84.8 MCH (pg) Date Value 12/13/2024 29.0 MCHC (g/dL) Date Value 12/13/2024 34.1 RDW-CV (%) Date Value 12/13/2024 13.0 Platelet Count (k/uL) Date Value 12/13/2024 176 MPV (fL) Date Value 12/13/2024 7.7 (L) Glucose (mg/dL) Date Value 12/13/2024 93 BUN (mg/dL) Date Value 12/13/2024 21 Creatinine (mg/dL) Date Value 12/13/2024 1.37 (H) Sodium (mmol/L) Date Value 12/13/2024 135 (L) Potassium (mmol/L) Date Value 12/13/2024 4.1 Chloride (mmol/L) Date Value 12/13/2024 101 CO2 (mmol/L) Date Value 12/13/2024 25 Protein, Total (g/dL) Date Value 12/13/2024 6.6 Albumin (g/dL) Date Value 12/13/2024 4.3 Calcium, Total (mg/dL) Date Value 12/13/2024 9.1 Alkaline Phosphatase (U/L) Date Value 12/13/2024 80 Bilirubin, Total (mg/dL) Date Value 12/13/2024 0.3 AST (U/L) Date Value 12/13/2024 11 (L) ALT (U/L) Date Value 12/13/2024 12 DIAGNOSIS: (C01) 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) (primary encounter diagnosis) PAST MEDICAL HISTORY Diagnosis Date Hard of hearing HTN (hypertension) Hypercholesteremia PAST SURGICAL HISTORY Procedure Laterality Date BIOPSY OF ORAL TISSUE SOFT BRONCHOSCOPY W/PLACEMENT TRACHEAL STENT 09/2023 PAST SURGICAL HISTORY OF Right mastoidectomy and incus repair TONSILLECTOMY & ADENOIDECTOMY <AGE 13 Social History Tobacco Use Smoking status: Former Current packs/day: 0.00 Average packs/day: 1 pack/day for 35.0 years (35.0 ttl pk-yrs) Types: Cigarettes Start date: 10/13/1987 Quit date: 10/13/2022 Years since quittin.1 Passive exposure: Past Smokeless tobacco: Former Vaping Use Vaping status: Never Used Substance Use Topics Alcohol use: Yes Comment: occ Drug use: Not Currently Types: Marijuana FAMILY HISTORY Problem Relation Age of Onset Prostate Cancer Father Thyroid Cancer Sister Anesthesia Problems No Family History Malig Hyperthermia No Family History I spent a total of 20 minutes on the date of service which included preparing to see the patient, [id number] patient care, completing clinical documentation, performing a medically appropriate examination, counseling and educating the patient/family/caregiver, ordering medications, tests, or procedures, independently interpreting results (not separately reported), communicating results to the patient/family/caregiver, and care coordination (not separately reported). Lakia Medina MD, CPE Hematology and Oncology Services Provided at: [place], [place] Scribe Attestation: This note was scribed by Jackie Hoff on December 13, 2024 under the direction and supervision of Dr. Lakia Medina. I attest that all of the information documented is correct to the best of my knowledge. Provider Attestation: I, Lakia Medina MD, attest that all information documented by the above scribe is correct, and was supervised by me and under my direction. CC: Julian Burton MD [id number] [facility] [id number] documented in this encounter [facility] [place] 12-13-2024 Note [facility] 11-01-2024 History of Present illness Narrative Images from the original note were not included. NAME: Caitlin Elmore [facility] NO.: [id number] DATE OF SERVICE: November 01, 2024 (Maria Guadalupe) Some elements in this clinic note that are critical to medical decision making have been carefully reviewed and included from a prior clinic note dated: September 13, 2024 (Tang) Referring Provider: Elizabeth Borjas MD Additional Clinicians involved in Caitlin Elmore's care: DIAGNOSIS: HPV positive BOT SCC ASSESSMENT: 59 year old male here for follow up and treatment. BOT HPV positive locally advanced on concurrent therapy completed 01/06/2023 and received a total of 200 mg/m2 of nanwalek as well. PET with response 04/2023. CT [...] nodules growing and case discussed at TB. EBUSof hilar node was negative and so completed SBRT to the 2 pulmonary lesions end of June 2024. PET positive in the prostate and he follows urology CRI- Stable PLAN: Pembrolizumab today and every 6 weeks. RTC in 6 weeks for treatment Labs same day HPI: CASE HISTORY: Reverse Chronological Order CT Chest 10/31/2024: Interval decrease in size of treated right upper lobe nodules, superior lesion demonstrating more pronounced decrease in size. The more inferiorly located nodule demonstrates trilaterally ablation and measures smaller than treatment planning CT dated 06/28/2024 but remains larger than 05/03/2024 exam. Consider close follow-up. New opacities are noted mostly in the right upper lobe, probably treatment related (radiation pneumonitis?), Although there are more localized opacities visible as well. Elongated mucous plugging of right upper lobe anterior segment bronchus presumed. Difficult to assess hilar region lymph nodes. Some of the mediastinal lymph nodes may measure similar to 06/28/2024 exam but are slightly larger compared to 05/03/2024 exam. Attention on follow-up recommended. Presumed prior granulomatous infection. 06/28/2024-07/05/2024 - Radiation to RUL lung 05/21/2024 - Bronchoscopy: Lymph node, 10R, biopsy: -Necrotic material and minute cluster of bland epithelial cells Comment: A minute cluster of epithelial cells is noted, without prominent atypia, favored to represent bronchial cells. No definite malignancy is identified. No definite lymph node tissue or granuloma is demonstrated. GMS and AFB/Melissa stains will be performed and results will be reported in an addendum. 04/2024 - CT CAP: Chest: Nodular opacities in right lung measuring up to 1.6 cm worrisome for metastases, increased in size since 12/08/23. Mild right hilar lymphadenopathy, either stable or slightly smaller. A/P: No evidence of intra-abdominal/pelvic metastases. No interval change since 12/08/23. Nonspecific subcentimeter hepatic foci, stable 01/02/2024-Current - Pembro monotherapy 11/2023 - CT CAP: Chest: Improvement in the previously seen pulmonary nodules [...] is suspicious for progression of metastatic adenopathy. A/P: No evidence of metastatic disease in the abdomen or pelvis. Enlargement of the prostate gland 09/26/2023-12/11/2023 - Carbo/Taxol + Pembro 4 cycles with response 09/2023 - PET/CT: CHEST: Right upper lobe lung nodule increased in size and metabolic activity, associated with new right hilar FDG avid hilar lymphadenopathy most suspicious for neoplastic process. Slightly more prominent nodules in the right lung with mild uptake are also seen. HEAD/NECK, ABDOMEN/PELVIS, & EXTREMITIES/SKELETON: No evidence of focal uptake to suggest FDG avid neoplastic process. 08/2023 - RUL biopsy: Lung, right upper lobe, nodule, biopsy: - HPV-associated squamous cell carcinoma (see comment). KRAS p.[id number]:c.[id number]>A 51.2% VAF, Depth 4267x, Ex2 PIK3CA p.[id number]:c.1633G>A 21.7% VAF, Depth 5015x, Ex10 PDL-1 Insufficient 07/2023 - CT Chest: Since 04/14/2023, multiple enlarging right lung nodules, suspicious for metastases. No progressive lymphadenopathy. 04/2023 - PET/CT: NECK: Interval resolution of intense uptake in the right tongue base. Resolution of FDG avid cervical lymphadenopathy. CHEST: New subcentimeter right upper lobe pulmonary nodules, too small to accurately assess for FDG uptake. Differential includes infection/inflammation or metastasis. Attention on follow-up recommended. No FDG avid lymphadenopathy. ABDOMEN/PELVIS: Similar appearance of focal FDG uptake in the left prostate gland. This is concerning for primary prostatic malignancy. Correlation with MRI prostate without and with IV contrast is recommended. Otherwise, no FDG avid lymphadenopathy. EXTREMITIES/SKELETON: No suspicious FDG avid osseous lesion. 11/2022 - PET/CT: NECK: Intensely hypermetabolic right oropharyngeal region mass compatible with neoplastic process. Hypermetabolic right cervical lymphadenopathy suspicious for metastatic lymphadenopathy. CHEST: No evidence of FDG avid neoplastic process ABDOMEN/PELVIS: No evidence of FDG avid metastases. Increased activity in the prostatic region correlation with PSA is suggested. 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 10/2022 - CT Neck: Large posterior right tongue base mass consistent with history of neoplasm. Large right parapharyngeal/level 2 lymph node versus mass; also seen on prior ultrasound study and previously biopsied 11/21/2021 - Concurrent Cisplatin + radiation - Cisplatin completed: 12/21/2021 (total nanwalek dose: 200mg/m2), radiation completed: 01/06/2022 Updated Visit, November 01, 2023: Caitlin returns today for consideration of maintenance Keytruda. He remains on pembrolizumab every 6 weeks with no complaints. He has had no significant medical changes. He denies any shortness of breath, rashes, diarrhea, nausea, vomiting, abdominal pain. Recent imaging is stable. Had a recent trip to [facility] in [place] with his family and getting ready to go on a cruise with his in December. Updated Visit, September 13, 2024: Caitlin Elmore returns for follow-up and continued treatment. He remains on pembrolizumab every 6 weeks and is tolerating it well. Since his last visit there has been no significant medical changes. He denies any side effects currently from treatment. He has an occasional cough with temperature changes. Otherwise, he states that his breathing is fine. He is feeling good. He denies nausea, vomiting, abdominal pain and diarrhea. No skin rashes. No fevers, chills, night sweats or signs/symptoms of infection. No bleeding or abnormal bruising. His appetite is good. He denies any difficulty swallowing. Overall he is doing well and wishes to proceed with treatment as planned. He is going on a family trip next month to the [facility]. Updated Visit, August 02, 2024: Doing well and tolerated RT well. Scans scheduled for October next year. Kidney function off a little due to decreased water intake. Encouraged him to improve on this. Initial Visit, June 20, 2024: Transition of Care Caitlin Elmore presents today to transition his care as his previous provider left the practice. He is joined by his , Clarissa. Recent lymph node biopsy was negative for malignancy, positive for necrotic tissue. He will undergo one radiation treatment to lung nodules in about [address] Ellsworth. Continue pembrolizumab today and q 6 weeks. They have 5 children - ages 30-19. CLARICE is from [place], Clarissa is from [place]. May 08, 2024: Caitlin Elmore is a 59 year old year old male here for follow up. Doing well outside of mild arthralgia. Denies any nausea and or abdominal pain and or diarrhea. Denies any skin rash and or cough REVIEW OF SYSTEMS Per HPI and otherwise negative by full review of organ systems. ECOG PERFORMANCE STATUS: 1 PHYSICAL EXAMINATION: Vitals: BP 113/70 Pulse 59 Temp (Src) 97.8 (Oral) Resp 16 Ht 5' 10.512 [verified with 2 caregivers.[ (1.79m) Wt 207 lb 0.2 oz (93.9kg) SpO2 99% BMI 29.27 kg/(m^2). Body surface area is 2.16 meters squared. Exam limited to gross visualization where appropriate. [...] skin without rash, lesions, wounds or petechiae. ALLERGIES: ALLERGIES No Known Allergies MEDICATIONS: pembrolizumab (KEYTRUDA INTRAVENOUS) Inject intravenously. levothyroxine (SYNTHROID) 88 mcg tablet Take 1 tablet by mouth once daily. ondansetron (ZOFRAN) 8 [...] contrast (will be provided with radiology test) CT Chest Abdomen-Inject, intravenously, once for 1 dose.No IV access, [...] in the CT contrast administration guidelines link. enteric contrast (will be provided with radiology test) For CT Chest Abdomen W IVCON order Administer, As Directed One Time Only, via Oral, Rectal, both Oral and Rectal, Enteric Tube, Stoma or Indwelling Catheter, Enteric Contrast as designated per enteric contrast guidelines LABORATORY VALUES: WBC (k/uL) Date Value 11/01/2024 7.36 RBC (m/uL) Date Value 11/01/2024 5.15 Hemoglobin (g/dL) Date Value 11/01/2024 15.1 Hematocrit (%) Date Value 11/01/2024 44.2 MCV (fL) Date Value 11/01/2024 85.8 MCH (pg) Date Value 11/01/2024 29.3 MCHC (g/dL) Date Value 11/01/2024 34.2 RDW-CV (%) Date Value 11/01/2024 12.6 Platelet Count (k/uL) Date Value 11/01/2024 172 MPV (fL) Date Value 11/01/2024 8.4 (L) Glucose (mg/dL) Date Value 11/01/2024 99 BUN (mg/dL) Date Value 11/01/2024 22 Creatinine (mg/dL) Date Value 11/01/2024 1.48 (H) Sodium (mmol/L) Date Value 11/01/2024 137 Potassium (mmol/L) Date Value 11/01/2024 4.0 Chloride (mmol/L) Date Value 11/01/2024 101 CO2 (mmol/L) Date Value 11/01/2024 28 Protein, Total (g/dL) Date Value 11/01/2024 7.2 Albumin (g/dL) Date Value 11/01/2024 4.8 Calcium, Total (mg/dL) Date Value 11/01/2024 10.0 Alkaline Phosphatase (U/L) Date Value 11/01/2024 86 Bilirubin, Total (mg/dL) Date Value 11/01/2024 0.4 AST (U/L) Date Value 11/01/2024 12 (L) ALT (U/L) Date Value 11/01/2024 19 DIAGNOSIS: (C01) 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) (primary encounter diagnosis) (Z29.89) Encounter for immunotherapy PAST MEDICAL HISTORY Diagnosis Date Hard of hearing HTN (hypertension) Hypercholesteremia PAST SURGICAL HISTORY Procedure Laterality Date BIOPSY OF ORAL TISSUE SOFT BRONCHOSCOPY W/PLACEMENT TRACHEAL STENT 09/2023 PAST SURGICAL HISTORY OF Right mastoidectomy and incus repair TONSILLECTOMY & ADENOIDECTOMY <AGE 13 Social History Tobacco Use Smoking status: Former Current packs/day: 0.00 Average packs/day: 1 pack/day for 35.0 years (35.0 ttl pk-yrs) Types: Cigarettes Start date: 10/13/1987 Quit date: 10/13/2022 Years since quittin.0 Passive exposure: Past Smokeless tobacco: Former Vaping Use Vaping status: Never Used Substance Use Topics Alcohol use: Yes Comment: occ Drug use: Not Currently Types: Marijuana FAMILY HISTORY Problem Relation Age of Onset Prostate Cancer Father Thyroid Cancer Sister Anesthesia Problems No Family History Malig Hyperthermia No Family History . Vicky Maguire APRN, BUSINESS DEPARTMENT CHAIR-C, [facility] Provided at: [place], [place] CC: Julian Burton MD [address] [facility] [address] documented in this encounter [facility] 11-01-2024 Note [facility] 11-01-2024 History of Present illness Narrative Subjective Patient ID: Caitlin Elmore is a 59 y.o. 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) 02/24/2023 Squamous cell cancer of tongue (CMS/HCC) 02/24/2023 Hypertension (CMS/HCC) 02/24/2023 Hearing loss 04/09/2023 Acute swimmer's ear of right side 05/12/2023 Hypothyroid (CMS/HCC) 12/15/2023 Arthritis 02/14/2024 Poor urinary stream 02/14/2024 Asymptomatic microscopic hematuria 02/14/2024 Benign prostatic hyperplasia with urinary obstruction 02/14/2024 Hyperlipidemia (CMS/HCC) 02/14/2024 Adenomatous polyp of colon 02/14/2024 Hx of malignant neoplasm of prostate 02/14/2024 High prostate specific antigen (PSA) 02/14/2024 Severe protein-calorie malnutrition (CMS/HCC) 02/14/2024 Colon polyp 02/14/2024 Ear problems 02/14/2024 Mass in neck 02/14/2024 Chronic otorrhea of right ear 04/19/2024 Adrenal insufficiency (CMS/HCC) 05/14/2024 CKD (chronic kidney disease) 05/14/2024 Former smoker 05/14/2024 Lung cancer (CMS/HCC) 11/01/2024 Resolved Ambulatory Problems Diagnosis Date Noted Mass of neck 02/24/2023 Adenomatous polyp of colon 04/09/2023 Arthritis 04/09/2023 Asymptomatic microscopic hematuria 04/09/2023 Benign prostatic hyperplasia with urinary obstruction 04/09/2023 Family history of malignant neoplasm of prostate 04/09/2023 High prostate specific antigen (PSA) 04/09/2023 Hyperlipidemia (CMS/HCC) 04/09/2023 Poor urinary stream 04/09/2023 Severe protein-calorie malnutrition (CMS/HCC) 12/19/2022 Past Medical History: Diagnosis Date BPH (benign prostatic hyperplasia) HL (hearing loss) 1973 Nocturia Personal history of irradiation [id number] Tongue cancer (CMS/HCC) Past Surgical History: Procedure Laterality Date ADENOIDECTOMY 1974 LARYNGOSCOPY 10/18/2022 w/ flynn, Anu MASTOID SURGERY TONSILLECTOMY 1972 TYMPANOSTOMY TUBE PLACEMENT 1973 No Known Allergies Current Outpatient Medications on File Prior to Visit Medication Sig Dispense Refill amLODIPine (Norvasc) 10 MG tablet Take 10 mg by mouth in the morning. hydrocortisone (Cortef) 5 MG tablet Take 5 mg by mouth Daily 2 tabs in AM, 1 tab PM ibuprofen 200 MG tablet Take by mouth levothyroxine (Synthroid, Levoxyl) 50 MCG tablet Take 50 mcg by mouth in the morning. Take before meals. (Patient taking differently: Take 88 mcg by mouth in the morning. Take before meals.) lisinopril 40 MG tablet Take 40 mg by mouth in the morning. pravastatin (Pravachol) 20 MG tablet Take 20 mg by mouth in the morning. tadalafil (Cialis) 10 MG tablet Take 10 mg by mouth Daily as needed for erectile dysfunction tamsulosin (Flomax) 0.4 MG 24 hr capsule Take 0.4 mg by mouth in the morning. No current facility-administered medications on file prior to visit. Objective Last Recorded Vitals Vitals: 11/01/24 0930 BP: 127/79 Pulse: 64 ENT Physical Exam Constitutional Appearance: patient appears well-developed and well-nourished, Oral Cavity/Oropharynx OC/OP comments: OC/OP/IDL - no mass or ulcer Neck Neck comments: Supple, FROM, No LAD Assessment/Plan Diagnoses and all orders for this visit: Squamous cell cancer of tongue (CMS/HCC) MEGHNA today. Start quarterly appts documented in this encounter [facility] 10-31-2024 Note [facility] 10-31-2024 History of Present illness Narrative Radiation Oncology - Follow Up Note PATIENT NAME: Caitlin Elmore PATIENT DIAGNOSIS: Oligoprogressive 2 RUL lung metastases, from previously treated H&N cancer. S/p lung SBRT 07/05/2024 Single isocenter for 2 lung lesions: 3400 cGy in 1 fx ONCOLOGIC HX: 1. HPV positive BOT SCC Treatment History: 1. Concurrent Cisplatin and XRT 11/21/2021- XRTY completed 01/06/2023 and last dose of chemo 12/21/2022 (Total Hoopa dose= 200 mg/m2) 2. Recurrence in the Lung Biopsy proven 08/2023: PDL-1 insufficient and KRAS G12A, PIK3CA (Targeted Oncology only due to sample) 3. Carbo/Taxol ad Pembro 09/26/2023-12/11/2023 (Cycle 4) with response, Pembro monotherapy INTERVAL HISTORY: here on first follow up, doing well, no untoward issues post sbrt, no breathing changes, no consitutional changes, still on surveillance from the systemic therapy perspective. Results CT CHEST WO IVCON (Acc#[id number] -[facility]) (Order [id number]) Patient Info Patient Name Sex Caitlin Jorgensen ([id number]) Male 1965 10/31/2024 11:24 AM - Radiology, Oru In Impression IMPRESSION: 1. Interval decrease in size of treated right upper lobe nodules, superior lesion demonstrating more pronounced decrease in size. The more inferiorly located nodule demonstrates trilaterally ablation and measures smaller than treatment planning CT dated 06/28/2024 but remains larger than 05/03/2024 exam. Consider close follow-up. 2. New opacities are noted mostly in the right upper lobe, probably treatment related (radiation pneumonitis?), Although there are more localized opacities visible as well. Elongated mucous plugging of right upper lobe anterior segment bronchus presumed. 3. Difficult to assess hilar region lymph nodes. Some of the mediastinal lymph nodes may measure similar to 06/28/2024 exam but are slightly larger compared to 05/03/2024 exam. Attention on follow-up recommended. Presumed prior granulomatous infection. School Occupational Therapist: JALEN Transcribe Date/Time: Oct 31 2024 10:58A Dictated by : ELISEO DORSEY MD This examination was interpreted and the report reviewed and electronically signed by: ELISEO DORSEY MD on Oct 31 2024 11:22AM EST ALLERGIES No Known Allergies MEDICATIONS: pembrolizumab (KEYTRUDA INTRAVENOUS) Inject intravenously. levothyroxine (SYNTHROID) 88 mcg tablet Take 1 tablet by mouth once daily. ondansetron (ZOFRAN) 8 [...] hours as needed. REVIEW OF SYSTEMS: GENERAL: Negative for weight loss, fevers, chills, or night sweats. HEENT: Negative for sudden vision or hearing changes. NECK: Negative for masses in the neck. [...] Negative for bleeding or easy bruising. SKIN: Negative for rashes or other skin changes. PHYSICAL EXAM: VS: BP 125/70 Pulse 73 Temp 36.6 C (97.9 F) (Temporal) Resp 18 Wt 94.7 kg (208 lb 12.4 oz) SpO2 96% BMI 29.96 kg/m KPS: 100 General Appearance: Alert and oriented. No acute distress. HEENT: NCAT. Sclera anicteric. PERRL. EOMI. Neck: Normal ROM. No palpable cervical or supraclavicular adenopathy. Chest: No respiratory distress. Lungs clear to auscultation bilaterally. Heart: Regular rate and rhythm. Abdomen: Soft. Nontender. Nondistended. Musculoskeletal: No edema. Normal ROM in extremities. No bone or spine tenderness. Neuro: Speech fluent. Gait normal. No focal deficits. Skin: No rashes noted Lymphatics: No palpable lymphadenopathy. TOXICITY ASSESSMENT CTC3: No ASSESSMENT/PLAN: Clinically doing well. CT demonstrates excellent partial response in the treated tumors. We will see him again in 3--4 months for followup. Signed by: Tayla Ellsworth MD cc: Julian Burton [address] [phone] Additional intake questions: Has the patient had fever, nausea, vomiting, diarrhea, constipation, fatigue for > 1 week? No Does the patient have a decreased appetite? No Does patient want to see a Transition Lead? No (yes to any of above refer patient to schedulers for dietitian appointment) ) Does patient have any new or increased numbness or tingling of extremities? No Is patient interested in fertility information? NA Does patient need any prescription refills? No Does patient have an advanced directive in place? No Electronically Signed By: Winnie Newman LPN documented in this encounter [facility] 10-31-2024 History of Present illness Narrative Radiology Service Progress Note PATIENT NAME: Caitlin Elmore DATE OF SERVICE: October 31, 2024 TIME: 10:28 AM PATIENT IDENTITY VERIFICATION COMPLETED USING TWO (2) IDENTIFIERS: Name and Date of confirmed by patient verbally and Name and Date of confirmed by identification band. FALL SCREENING: Has the patient had 2 falls in the last year or 1 fall with injury or currently using an Ambulatory Assistive Device (Walker, Cane, Wheelchair, Crutches, etc.)? No PATIENT GENDER DATA: Assigned male at PATIENT RELEVANT IMPLANT DATA REVIEWED: Yes PATIENT PRESENTS WITH 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 OR ATTACHED PRESIDENT & CEO: No RADIOLOGY DEPARTMENT: CT; Exam(s) Completed: Chest PERIPHERAL IV DATA: Not applicable SIGNED BY: RT Cullen(R) October 31, 2024 10:28 AM documented in this encounter [facility] 10-31-2024 Note [facility] 09-20-2024 History of Present illness Narrative Subjective Patient ID: Caitlin Elmore is a 59 y.o. 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) 02/24/2023 Squamous cell cancer of tongue (CMS/HCC) 02/24/2023 Hypertension (CMS/HCC) 02/24/2023 Hearing loss 04/09/2023 Acute swimmer's ear of right side 05/12/2023 Hypothyroid (CMS/HCC) 12/15/2023 Arthritis 02/14/2024 Poor urinary stream 02/14/2024 Asymptomatic microscopic hematuria 02/14/2024 Benign prostatic hyperplasia with urinary obstruction 02/14/2024 Hyperlipidemia (CMS/HCC) 02/14/2024 Adenomatous polyp of colon 02/14/2024 Hx of malignant neoplasm of prostate 02/14/2024 High prostate specific antigen (PSA) 02/14/2024 Severe protein-calorie malnutrition (CMS/HCC) 02/14/2024 Colon polyp 02/14/2024 Ear problems 02/14/2024 Mass in neck 02/14/2024 Chronic otorrhea of right ear 04/19/2024 Resolved Ambulatory Problems Diagnosis Date Noted Mass of neck 02/24/2023 Adenomatous polyp of colon 04/09/2023 Arthritis 04/09/2023 Asymptomatic microscopic hematuria 04/09/2023 Benign prostatic hyperplasia with urinary obstruction 04/09/2023 Family history of malignant neoplasm of prostate 04/09/2023 High prostate specific antigen (PSA) 04/09/2023 Hyperlipidemia (CMS/HCC) 04/09/2023 Poor urinary stream 04/09/2023 Severe protein-calorie malnutrition (CMS/HCC) 12/19/2022 Past Medical History: Diagnosis Date BPH (benign prostatic hyperplasia) HL (hearing loss) 1973 Nocturia Personal history of irradiation [id number] Tongue cancer (CMS/HCC) Past Surgical History: Procedure Laterality Date ADENOIDECTOMY 1974 LARYNGOSCOPY 10/18/2022 w/ biopsy, Timmis MASTOID SURGERY TONSILLECTOMY 1972 TYMPANOSTOMY TUBE PLACEMENT 1973 No Known Allergies Current Outpatient Medications on File Prior to Visit Medication Sig Dispense Refill amLODIPine (Norvasc) 10 MG tablet Take 10 mg by mouth in the morning. hydrocortisone (Cortef) 5 MG tablet Take 5 mg by mouth Daily 2 tabs in AM, 1 tab PM ibuprofen 200 MG tablet Take by mouth levothyroxine (Synthroid, Levoxyl) 50 MCG tablet Take 50 mcg by mouth in the morning. Take before meals. (Patient taking differently: Take 88 mcg by mouth in the morning. Take before meals.) lisinopril 40 MG tablet Take 40 mg by mouth in the morning. pravastatin (Pravachol) 20 MG tablet Take 20 mg by mouth in the morning. tadalafil (Cialis) 10 MG tablet Take 10 mg by mouth Daily as needed for erectile dysfunction tamsulosin (Flomax) 0.4 MG 24 hr capsule Take 0.4 mg by mouth in the morning. No current facility-administered medications on file prior to visit. Objective Last Recorded Vitals Vitals: 09/20/24 1258 BP: 146/76 ENT Physical Exam Constitutional Appearance: patient appears well-developed and well-nourished, Oral Cavity/Oropharynx OC/OP comments: OC/OP/IDL - no mass or ulcer Neck Neck comments: Supple, FROM, No LAD Assessment/Plan Diagnoses and all orders for this visit: Squamous cell cancer of tongue (CMS/HCC) MEGHNA today. Start quarterly visits next week documented in this encounter [facility] 09-13-2024 Note [facility] 09-13-2024 History of Present illness Narrative Images from the original note were not included. NAME: Caitlin Elmore [facility] NO.: [id number] DATE OF SERVICE: September 13, 2024 (Tang) Some elements in this clinic note that are critical to medical decision making have been carefully reviewed and included from a prior clinic note dated: August 02, 2024 (Sascha) Referring Provider: Elizabeth Borjas MD Additional Clinicians involved in Caitlin Elmore's care: DIAGNOSIS: HPV positive BOT SCC ASSESSMENT: 59 year old male here for follow up and treatment. BOT HPV positive locally advanced on concurrent therapy completed 01/06/2023 and received a total of 200 mg/m2 of nanwalek as well. PET with response 04/2023. CT [...] nodules growing and case discussed at TB. EBUSof hilar node was negative and so completed SBRT to the 2 pulmonary lesions end of June 2024. PET positive in the prostate and he follows urology CRI- Stable PLAN: Pembrolizumab today Keep CT's in October [address] Ellsworth RTC in 7 weeks for treatment Labs same day HPI: CASE HISTORY: Reverse Chronological Order 06/28/2024-07/05/2024 - Radiation to RUL lung 05/21/2024 - Bronchoscopy: Lymph node, 10R, biopsy: -Necrotic material and minute cluster of bland epithelial cells Comment: A minute cluster of epithelial cells is noted, without prominent atypia, favored to represent bronchial cells. No definite malignancy is identified. No definite lymph node tissue or granuloma is demonstrated. GMS and AFB/Melissa stains will be performed and results will be reported in an addendum. 04/2024 - CT CAP: Chest: Nodular opacities in right lung measuring up to 1.6 cm worrisome for metastases, increased in size since 12/08/23. Mild right hilar lymphadenopathy, either stable or slightly smaller. A/P: No evidence of intra-abdominal/pelvic metastases. No interval change since 12/08/23. Nonspecific subcentimeter hepatic foci, stable 01/02/2024-Current - Pembro monotherapy 11/2023 - CT CAP: Chest: Improvement in the previously seen pulmonary nodules [...] is suspicious for progression of metastatic adenopathy. A/P: No evidence of metastatic disease in the abdomen or pelvis. Enlargement of the prostate gland 09/26/2023-12/11/2023 - Carbo/Taxol + Pembro 4 cycles with response 09/2023 - PET/CT: CHEST: Right upper lobe lung nodule increased in size and metabolic activity, associated with new right hilar FDG avid hilar lymphadenopathy most suspicious for neoplastic process. Slightly more prominent nodules in the right lung with mild uptake are also seen. HEAD/NECK, ABDOMEN/PELVIS, & EXTREMITIES/SKELETON: No evidence of focal uptake to suggest FDG avid neoplastic process. 08/2023 - RUL biopsy: Lung, right upper lobe, nodule, biopsy: - HPV-associated squamous cell carcinoma (see comment). KRAS p.[id number]:c.35G>A 51.2% VAF, Depth 4267x, Ex2 PIK3CA p.[id number]:c.1633G>A 21.7% VAF, Depth 5015x, Ex10 PDL-1 Insufficient 07/2023 - CT Chest: Since 04/14/2023, multiple enlarging right lung nodules, suspicious for metastases. No progressive lymphadenopathy. 04/2023 - PET/CT: NECK: Interval resolution of intense uptake in the right tongue base. Resolution of FDG avid cervical lymphadenopathy. CHEST: New subcentimeter right upper lobe pulmonary nodules, too small to accurately assess for FDG uptake. Differential includes infection/inflammation or metastasis. Attention on follow-up recommended. No FDG avid lymphadenopathy. ABDOMEN/PELVIS: Similar appearance of focal FDG uptake in the left prostate gland. This is concerning for primary prostatic malignancy. Correlation with MRI prostate without and with IV contrast is recommended. Otherwise, no FDG avid lymphadenopathy. EXTREMITIES/SKELETON: No suspicious FDG avid osseous lesion. 11/2022 - PET/CT: NECK: Intensely hypermetabolic right oropharyngeal region mass compatible with neoplastic process. Hypermetabolic right cervical lymphadenopathy suspicious for metastatic lymphadenopathy. CHEST: No evidence of FDG avid neoplastic process ABDOMEN/PELVIS: No evidence of FDG avid metastases. Increased activity in the prostatic region correlation with PSA is suggested. 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 10/2022 - CT Neck: Large posterior right tongue base mass consistent with history of neoplasm. Large right parapharyngeal/level 2 lymph node versus mass; also seen on prior ultrasound study and previously biopsied 11/21/2021 - Concurrent Cisplatin + radiation - Cisplatin completed: 12/21/2021 (total nanwalek dose: 200mg/m2), radiation completed: 01/06/2022 Updated Visit, September 13, 2024: Caitlin Elmore returns for follow-up and continued treatment. He remains on pembrolizumab every 6 weeks and is tolerating it well. Since his last visit there has been no significant medical changes. He denies any side effects currently from treatment. He has an occasional cough with temperature changes. Otherwise, he states that his breathing is fine. He is feeling good. He denies nausea, vomiting, abdominal pain and diarrhea. No skin rashes. No fevers, chills, night sweats or signs/symptoms of infection. No bleeding or abnormal bruising. His appetite is good. He denies any difficulty swallowing. Overall he is doing well and wishes to proceed with treatment as planned. He is going on a family trip next month to the [facility]. Updated Visit, August 02, 2024: Doing well and tolerated RT well. Scans scheduled for October next year. Kidney function off a little due to decreased water intake. Encouraged him to improve on this. Initial Visit, June 20, 2024: Transition of Care Caitlin Elmore presents today to transition his care as his previous provider left the practice. He is joined by his , Clarissa. Recent lymph node biopsy was negative for malignancy, positive for necrotic tissue. He will undergo one radiation treatment to lung nodules in about [address] Ellsworth. Continue pembrolizumab today and q 6 weeks. They have 5 children - ages 30-19. CLARICE is from [place], Clarissa is from [place]. May 08, 2024: Caitlin Elmore is a 59 year old year old male here for follow up. Doing well outside of mild arthralgia. Denies any nausea and or abdominal pain and or diarrhea. Denies any skin rash and or cough REVIEW OF SYSTEMS Per HPI and otherwise negative by full review of organ systems. ECOG PERFORMANCE STATUS: 1 PHYSICAL EXAMINATION: Vitals: BP 123/75 Pulse 66 Temp (Src) 97.3 (Temporal) Resp 16 Ht 5' 10 (1.78m) Wt 209 lb 7 oz (95.0kg) SpO2 99% BMI 30.05 kg/(m^2). Body surface area is 2.17 meters squared. Exam limited to gross visualization where appropriate. [...] skin without rash, lesions, wounds or petechiae. ALLERGIES: ALLERGIES No Known Allergies MEDICATIONS: pembrolizumab (KEYTRUDA INTRAVENOUS) Inject intravenously. levothyroxine (SYNTHROID) 88 mcg tablet Take 1 tablet by mouth once daily. ondansetron (ZOFRAN) 8 [...] by mouth every 6 hours as needed. LABORATORY VALUES: WBC (k/uL) Date Value 09/13/2024 5.98 RBC (m/uL) Date Value 09/13/2024 5.23 Hemoglobin (g/dL) Date Value 09/13/2024 15.3 Hematocrit (%) Date Value 09/13/2024 44.6 MCV (fL) Date Value 09/13/2024 85.3 MCH (pg) Date Value 09/13/2024 29.3 MCHC (g/dL) Date Value 09/13/2024 34.3 RDW-CV (%) Date Value 09/13/2024 12.6 Platelet Count (k/uL) Date Value 09/13/2024 172 MPV (fL) Date Value 09/13/2024 8.2 (L) Glucose (mg/dL) Date Value 09/13/2024 101 (H) BUN (mg/dL) Date Value 09/13/2024 15 Creatinine (mg/dL) Date Value 09/13/2024 1.21 Sodium (mmol/L) Date Value 09/13/2024 140 Potassium (mmol/L) Date Value 09/13/2024 4.0 Chloride (mmol/L) Date Value 09/13/2024 106 CO2 (mmol/L) Date Value 09/13/2024 24 Protein, Total (g/dL) Date Value 09/13/2024 7.0 Albumin (g/dL) Date Value 09/13/2024 4.6 Calcium, Total (mg/dL) Date Value 09/13/2024 9.4 Alkaline Phosphatase (U/L) Date Value 09/13/2024 89 Bilirubin, Total (mg/dL) Date Value 09/13/2024 0.4 AST (U/L) Date Value 09/13/2024 18 ALT (U/L) Date Value 09/13/2024 19 DIAGNOSIS: (C01) 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) (primary encounter diagnosis) PAST MEDICAL HISTORY Diagnosis Date Hard of hearing HTN (hypertension) Hypercholesteremia PAST SURGICAL HISTORY Procedure Laterality Date BIOPSY OF ORAL TISSUE SOFT BRONCHOSCOPY W/PLACEMENT TRACHEAL STENT 09/2023 PAST SURGICAL HISTORY OF Right mastoidectomy and incus repair TONSILLECTOMY & ADENOIDECTOMY <AGE 13 Social History Tobacco Use Smoking status: Former Current packs/day: 0.00 Average packs/day: 1 pack/day for 35.0 years (35.0 ttl pk-yrs) Types: Cigarettes Start date: 10/13/1987 Quit date: 10/13/2022 Years since quittin.9 Passive exposure: Past Smokeless tobacco: Former Vaping Use Vaping status: Never Used Substance Use Topics Alcohol use: Yes Comment: occ Drug use: Not Currently Types: Marijuana FAMILY HISTORY Problem Relation Age of Onset Prostate Cancer Father Thyroid Cancer Sister Anesthesia Problems No Family History Malig Hyperthermia No Family History I spent a total of 30 minutes on the date of the service which included preparing to see the patient, [id number] patient care, completing clinical documentation, obtaining and/or reviewing separately obtained history, performing a medically appropriate examination, counseling and educating the patient/family/caregiver, ordering medications, tests, or procedures, independently interpreting results (not separately reported), and communicating results to the patient/family/caregiver. Whitney Hallman APRN.CNP Hematology and Oncology Services Provided at: [place], [place] CC: Julian Burton MD [id number] [facility] [id number] documented in this encounter [facility] [place] 08-20-2024 History of Present illness Narrative Subjective Patient ID: Caitlin Elmore is a 59 y.o. 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) 02/24/2023 Squamous cell cancer of tongue (CMS/HCC) 02/24/2023 Hypertension (CMS/HCC) 02/24/2023 Hearing loss 04/09/2023 Acute swimmer's ear of right side 05/12/2023 Hypothyroid (CMS/HCC) 12/15/2023 Arthritis 02/14/2024 Poor urinary stream 02/14/2024 Asymptomatic microscopic hematuria 02/14/2024 Benign prostatic hyperplasia with urinary obstruction 02/14/2024 Hyperlipidemia (CMS/HCC) 02/14/2024 Adenomatous polyp of colon 02/14/2024 Hx of malignant neoplasm of prostate 02/14/2024 High prostate specific antigen (PSA) 02/14/2024 Severe protein-calorie malnutrition (CMS/HCC) 02/14/2024 Colon polyp 02/14/2024 Ear problems 02/14/2024 Mass in neck 02/14/2024 Chronic otorrhea of right ear 04/19/2024 Resolved Ambulatory Problems Diagnosis Date Noted Mass of neck 02/24/2023 Adenomatous polyp of colon 04/09/2023 Arthritis 04/09/2023 Asymptomatic microscopic hematuria 04/09/2023 Benign prostatic hyperplasia with urinary obstruction 04/09/2023 Family history of malignant neoplasm of prostate 04/09/2023 High prostate specific antigen (PSA) 04/09/2023 Hyperlipidemia (CMS/HCC) 04/09/2023 Poor urinary stream 04/09/2023 Severe protein-calorie malnutrition (CMS/HCC) 12/19/2022 Past Medical History: Diagnosis Date BPH (benign prostatic hyperplasia) HL (hearing loss) 1973 Nocturia Personal history of irradiation [id number] Tongue cancer (CMS/HCC) Past Surgical History: Procedure Laterality Date ADENOIDECTOMY 1974 LARYNGOSCOPY 10/18/2022 w/ biopsy, Timmis MASTOID SURGERY TONSILLECTOMY 1972 TYMPANOSTOMY TUBE PLACEMENT 1973 No Known Allergies Current Outpatient Medications on File Prior to Visit Medication Sig Dispense Refill amLODIPine (Norvasc) 10 MG tablet Take 10 mg by mouth in the morning. hydrocortisone (Cortef) 5 MG tablet Take 5 mg by mouth Daily 2 tabs in AM, 1 tab PM ibuprofen 200 MG tablet Take by mouth levothyroxine (Synthroid, Levoxyl) 50 MCG tablet Take 50 mcg by mouth in the morning. Take before meals. (Patient taking differently: Take 88 mcg by mouth in the morning. Take before meals.) lisinopril 40 MG tablet Take 40 mg by mouth in the morning. pravastatin (Pravachol) 20 MG tablet Take 20 mg by mouth in the morning. tadalafil (Cialis) 10 MG tablet Take 10 mg by mouth Daily as needed for erectile dysfunction tamsulosin (Flomax) 0.4 MG 24 hr capsule Take 0.4 mg by mouth in the morning. No current facility-administered medications on file prior to visit. Objective Last Recorded Vitals Vitals: 08/20/24 1306 BP: 118/68 ENT Physical Exam Constitutional Appearance: patient appears well-developed and well-nourished, Ear Ear comments: RT ear debrided. TM intact Oral Cavity/Oropharynx OC/OP comments: OC/OP/IDL - no mass or ulcer Neck Neck comments: Supple, FROM, No LAD Assessment/Plan Diagnoses and all orders for this visit: Chronic otorrhea of right ear Squamous cell cancer of tongue (CMS/HCC) RT ear debrided and infection resolved. Finish ciprodex. MEGHNA today. Monthly appts till 10/2024 documented in this encounter [facility] 08-09-2024 Instructions Chuck Jones MD - 08/09/2024 2:49 PM EDT Levothyroxine 88 mcg daily. Come to lab in October, before your appointment, before 8:00 AM. documented in this encounter [facility] [place] 08-09-2024 Note [facility] 08-09-2024 History of Present illness Narrative ENDOCRINOLOGY The patient was referred by Tremaine Gomez. HISTORY HPI: Caitlin Elmore is a 59 year old male who comes in here on f/u for possible adrenal insufficiency, gonadotropins elevation, and TSH elevation associated with pembrolizumab use. Pt started to feel exhausted since end of February 2024. 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 Last dose was on 05/08/24. From Oncology note: Concurrent Cisplatin and XRT 11/21/2021- XRTY completed 01/06/2023 and last dose of chemo 12/21/2022 (Total Hoopa dose= 200 mg/m2). Recurrence in the Lung [...] infusions, 10 mg, grossly once a month, from 11/21/22 to 12/12/23. Pt gets very tired when he works physically. He feels OK on not working days. He feels more tired around noon-1 PM. No changes in vision. Peripheral vision is good. No significant headaches. Does not wear rings. No changes in shoe size. No increased sweating. Decreased sex drive since 2021, before starting chemo. No growth or tenderness on breasts. Cortisol was 10.6 at 7:57 AM on 05/17/24, arguing against any significant adrenal insufficiency. After that, hydrocortisone was discontinued and Pt did not notice any difference as compared when being on it. He is still on LT4 50 mcg. Last TSH (06/02/24) was still elevated (8.6). -Sister with thyroid cancer. REVIEW OF SYSTEMS: [...] changes. ENDOCRINE: Per HPI PAST MEDICAL HISTORY Diagnosis Date Hard of hearing HTN (hypertension) Hypercholesteremia PAST SURGICAL HISTORY Procedure Laterality Date BIOPSY OF ORAL TISSUE SOFT BRONCHOSCOPY W/PLACEMENT TRACHEAL STENT 09/2023 PAST SURGICAL HISTORY OF Right mastoidectomy and incus repair TONSILLECTOMY & ADENOIDECTOMY <AGE 13 Social History Tobacco Use Smoking status: Former Current packs/day: 0.00 Average packs/day: 1 pack/day for 35.0 years (35.0 ttl pk-yrs) Types: Cigarettes Start date: 10/13/1987 Quit date: 10/13/2022 Years since quittin.8 Passive exposure: Past Smokeless tobacco: Former Vaping Use Vaping status: Never Used Substance Use Topics Alcohol use: Yes Comment: occ Drug use: Not Currently Types: Marijuana FAMILY HISTORY Problem Relation Age of Onset Prostate Cancer Father Thyroid Cancer Sister Anesthesia Problems No Family History Malig Hyperthermia No Family History Current Outpatient Medications Medication Sig pembrolizumab (KEYTRUDA INTRAVENOUS) Inject intravenously. levothyroxine (SYNTHROID) 50 mcg tablet take 1 tablet by mouth every day ondansetron (ZOFRAN) 8 mg tablet Take 1 [...] by mouth every 6 hours as needed. levothyroxine (SYNTHROID) 50 mcg tablet Take 1 tablet by mouth once daily. (Patient not taking: Reported on 08/09/2024) No current facility-administered medications for this visit. ALLERGIES No Known Allergies PHYSICAL EXAM: BP 125/71 (BP Site: Left Arm, BP Position: Sitting, BP Cuff Size: Large Adult) Pulse (!) 56 Ht 177.8 cm (5' 10 ) Wt 95.2 kg (209 lb 14.1 oz) SpO2 98% BMI 30.11 kg/m Body mass index is 30.11 kg/m . Appearance: Well appearing, in no [...] temperature. No rash. LABS RESULTS: Latest Ref Rng 02/13/2024 03/26/2024 05/08/2024 05/17/2024 06/20/2024 08/02/2024 Albumin 3.9 - 4.9 g/dL 4.6 Sex Hormone Bind GLB 14 - 82 nmol/L 45 Testosterone 193 - 824 ng/dL 613 Testosterone, Free Calculation 38.0 - 120.0 pg/mL 98.4 Testosterone, Percent Free 1.1 - 2.6 % 1.6 Testosterone, Bioavailable 105.0 - 324.0 ng/dL 283.2 TSH 0.270 - 4.200 mIU/L 4.720 (H) 4.480 (H) 5.160 (H) 5.520 (H) 8.640 (H) ACTH 7.2 - 63.3 pg/mL 10.6 Cortisol 4.8 - 19.5 ug/dL 4.0 (L) 10.6 5.7 8.3 LH 1.8 - 10.8 mIU/mL 13.7 (H) FSH 1.5 - 12.4 mIU/mL 22.3 (H) Prolactin 4.0 - 15.2 ng/mL 14.4 Free T4 0.9 - 1.7 ng/dL 1.2 Insulin-like Growth Factor I 56 - 203 ng/mL 187 IMAGING: CT abdomen/pelvis (12/08/23): Adrenals: No mass. ASSESSMENT & PLAN: Caitlin Elmore is a 59 year old male here for evaluation of adrenal insufficiency. (E03.9) Acquired hypothyroidism (primary encounter diagnosis) Comment: Associated with pembrolizumab. Now that adrenal insufficiency has been reasonably ruled out, plan to increase LT4 to 88 mcg daily. Plan: levothyroxine (SYNTHROID) 88 mcg tablet, THYROID STIMULATING HORMONE, T4 FREE/FREE THYROXINE (R79.89) Abnormal FSH level Comment: With concomitant normal bioavailable testosterone.Suggest some testicular damage. Will monitor levels, as well as those of other pituitary produced or controlled hormones. Plan: BIOAVAILABLE TESTOSTERONE, ADULT MALE, LUTEINIZING HORMONE, FOLLICLE STIMULATING HORMONE, PROLACTIN, THYROID STIMULATING HORMONE, T4 FREE/FREE THYROXINE, CORTISOL, SERUM (R79.89) Abnormal LH level Comment: With concomitant normal bioavailable testosterone.Suggest some testicular damage. Will monitor levels, as well as those of other pituitary produced or controlled hormones. Plan: BIOAVAILABLE TESTOSTERONE, ADULT MALE, LUTEINIZING HORMONE, FOLLICLE STIMULATING HORMONE, PROLACTIN, THYROID STIMULATING HORMONE, T4 FREE/FREE THYROXINE, CORTISOL, SERUM Return to office: 3 months Chuck Jones MD documented in this encounter [facility] 08-02-2024 Note HNO ID: [id number] Author: MIREYA LENTZ RN Service: ? Author Type: Registered Nurse Type: Progress Notes Filed: 08/02/2024 14:25 Note Text: [facility] aware of increased creatinine of 1.67. Pt is going to increase oral fluid intake. Mireya Lentz RN [facility] 08-02-2024 History of Present illness Narrative [facility] aware of increased creatinine of 1.67. Pt is going to increase oral fluid intake. Mireya Lentz RN documented in this encounter [facility] 08-02-2024 Instructions Lakia Medina MD - 08/02/2024 1:10 PM EDT Pembrolizumab today Keep CT's in October [address] Ellsworth RTC in 6 weeks for treatment (APPs ok) Labs same day documented in this encounter [facility] [place] 08-02-2024 History of Present illness Narrative Images from the original note were not included. NAME: Caitlin Elmore CLINIC NO.: [id number] DATE OF SERVICE: August 02, 2024 (Sascha) Some elements in this clinic note that are critical to medical decision making have been carefully reviewed and included from a prior clinic note dated: June 20, 2024 (Sascha) Referring Provider: Elizabeth Borjas MD Additional Clinicians involved in Caitlin Elmore's care: DIAGNOSIS: HPV positive BOT SCC ASSESSMENT: 59 year old male here for follow up. BOT HPV positive locally advanced on concurrent therapy completed 01/06/2023 and received a total of 200 mg/m2 of nanwalek as well. PET with response 04/2023. CT [...] nodules growing and case discussed at TB. EBUSof hilar node was negative and so completed SBRT to the 2 pulmonary lesions end of June 2024. PET positive in the prostate and he follows urology CRI- Stable PLAN: Pembrolizumab today Keep CT's in October [address] Ellsworth RTC in 6 weeks for treatment (APPs ok) Labs same day HPI: CASE HISTORY: Reverse Chronological Order 06/28/2024-07/05/2024 - Radiation to RUL lung 05/21/2024 - Bronchoscopy: Lymph node, 10R, biopsy: -Necrotic material and minute cluster of bland epithelial cells Comment: A minute cluster of epithelial cells is noted, without prominent atypia, favored to represent bronchial cells. No definite malignancy is identified. No definite lymph node tissue or granuloma is demonstrated. GMS and AFB/Melissa stains will be performed and results will be reported in an addendum. 04/2024 - CT CAP: Chest: Nodular opacities in right lung measuring up to 1.6 cm worrisome for metastases, increased in size since 12/08/23. Mild right hilar lymphadenopathy, either stable or slightly smaller. A/P: No evidence of intra-abdominal/pelvic metastases. No interval change since 12/08/23. Nonspecific subcentimeter hepatic foci, stable 01/02/2024-Current - Pembro monotherapy 11/2023 - CT CAP: Chest: Improvement in the previously seen pulmonary nodules [...] is suspicious for progression of metastatic adenopathy. A/P: No evidence of metastatic disease in the abdomen or pelvis. Enlargement of the prostate gland 09/26/2023-12/11/2023 - Carbo/Taxol + Pembro 4 cycles with response 09/2023 - PET/CT: CHEST: Right upper lobe lung nodule increased in size and metabolic activity, associated with new right hilar FDG avid hilar lymphadenopathy most suspicious for neoplastic process. Slightly more prominent nodules in the right lung with mild uptake are also seen. HEAD/NECK, ABDOMEN/PELVIS, & EXTREMITIES/SKELETON: No evidence of focal uptake to suggest FDG avid neoplastic process. 08/2023 - RUL biopsy: Lung, right upper lobe, nodule, biopsy: - HPV-associated squamous cell carcinoma (see comment). KRAS [id number].[id number]>A 51.2% VAF, Depth 4267x, Ex2 PIK3CA [id number].[id number]>A 21.7% VAF, Depth 5015x, Ex10 PDL-1 Insufficient 07/2023 - CT Chest: Since 04/14/2023, multiple enlarging right lung nodules, suspicious for metastases. No progressive lymphadenopathy. 04/2023 - PET/CT: NECK: Interval resolution of intense uptake in the right tongue base. Resolution of FDG avid cervical lymphadenopathy. CHEST: New subcentimeter right upper lobe pulmonary nodules, too small to accurately assess for FDG uptake. Differential includes infection/inflammation or metastasis. Attention on follow-up recommended. No FDG avid lymphadenopathy. ABDOMEN/PELVIS: Similar appearance of focal FDG uptake in the left prostate gland. This is concerning for primary prostatic malignancy. Correlation with MRI prostate without and with IV contrast is recommended. Otherwise, no FDG avid lymphadenopathy. EXTREMITIES/SKELETON: No suspicious FDG avid osseous lesion. 11/2022 - PET/CT: NECK: Intensely hypermetabolic right oropharyngeal region mass compatible with neoplastic process. Hypermetabolic right cervical lymphadenopathy suspicious for metastatic lymphadenopathy. CHEST: No evidence of FDG avid neoplastic process ABDOMEN/PELVIS: No evidence of FDG avid metastases. Increased activity in the prostatic region correlation with PSA is suggested. 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 10/2022 - CT Neck: Large posterior right tongue base mass consistent with history of neoplasm. Large right parapharyngeal/level 2 lymph node versus mass; also seen on prior ultrasound study and previously biopsied 11/21/2021 - Concurrent Cisplatin + radiation - Cisplatin completed: 12/21/2021 (total nanwalek dose: 200mg/m2), radiation completed: 01/06/2022 Updated Visit, August 02, 2024: Doing well and tolerated RT well. Scans scheduled for October next year. Kidney function off a little due to decreased water intake. Encouraged him to improve on this. Initial Visit, June 20, 2024: Transition of Care Caitlin Elmore presents today to transition his care as his previous provider left the practice. He is joined by his , Clarissa. Recent lymph node biopsy was negative for malignancy, positive for necrotic tissue. He will undergo one radiation treatment to lung nodules in about [address] Ellsworth. Continue pembrolizumab today and q 6 weeks. They have 5 children - ages 30-19. CLARICE is from [place], Clarissa is from [place]. May 08, 2024: Caitlin Elmore is a 59 year old year old male here for follow up. Doing well outside of mild arthralgia. Denies any nausea and or abdominal pain and or diarrhea. Denies any skin rash and or cough REVIEW OF SYSTEMS Per HPI and otherwise negative by full review of organ systems. ECOG PERFORMANCE STATUS: 1 PHYSICAL EXAMINATION: Vitals: BP 136/88 Pulse 66 Temp (Src) 97.7 (Temporal) Resp 16 Ht 5' 10.984 (1.80m) Wt 208 lb 12.4 oz (94.7kg) SpO2 99% BMI 29.13 kg/(m^2). Body surface area is 2.18 meters squared. Exam limited to gross visualization where appropriate. [...] skin without rash, lesions, wounds or petechiae. ALLERGIES: ALLERGIES No Known Allergies MEDICATIONS: levothyroxine (SYNTHROID) 50 mcg tablet take 1 tablet by mouth every day ondansetron (ZOFRAN) 8 mg tablet Take 1 [...] by mouth every 6 hours as needed. levothyroxine (SYNTHROID) 50 mcg tablet Take 1 tablet by mouth once daily. LABORATORY VALUES: WBC (k/uL) Date Value 08/02/2024 5.78 RBC (m/uL) Date Value 08/02/2024 5.03 Hemoglobin (g/dL) Date Value 08/02/2024 14.8 Hematocrit (%) Date Value 08/02/2024 42.7 MCV (fL) Date Value 08/02/2024 84.9 MCH (pg) Date Value 08/02/2024 29.4 MCHC (g/dL) Date Value 08/02/2024 34.7 RDW-CV (%) Date Value 08/02/2024 12.9 Platelet Count (k/uL) Date Value 08/02/2024 157 MPV (fL) Date Value 08/02/2024 8.4 (L) Glucose (mg/dL) Date Value 08/02/2024 93 BUN (mg/dL) Date Value 08/02/2024 26 (H) Creatinine (mg/dL) Date Value 08/02/2024 1.67 (H) Sodium (mmol/L) Date Value 08/02/2024 138 Potassium (mmol/L) Date Value 08/02/2024 4.3 Chloride (mmol/L) Date Value 08/02/2024 101 CO2 (mmol/L) Date Value 08/02/2024 24 Protein, Total (g/dL) Date Value 08/02/2024 7.3 Albumin (g/dL) Date Value 08/02/2024 4.7 Calcium, Total (mg/dL) Date Value 08/02/2024 9.6 Alkaline Phosphatase (U/L) Date Value 08/02/2024 79 Bilirubin, Total (mg/dL) Date Value 08/02/2024 0.4 AST (U/L) Date Value 08/02/2024 21 ALT (U/L) Date Value 08/02/2024 20 DIAGNOSIS: (C01) 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) (primary encounter diagnosis) PAST MEDICAL HISTORY Diagnosis Date Hard of hearing HTN (hypertension) Hypercholesteremia PAST SURGICAL HISTORY Procedure Laterality Date BIOPSY OF ORAL TISSUE SOFT BRONCHOSCOPY W/PLACEMENT TRACHEAL STENT 09/2023 PAST SURGICAL HISTORY OF Right mastoidectomy and incus repair TONSILLECTOMY & ADENOIDECTOMY <AGE 13 Social History Tobacco Use Smoking status: Former Current packs/day: 0.00 Average packs/day: 1 pack/day for 35.0 years (35.0 ttl pk-yrs) Types: Cigarettes Start date: 10/13/1987 Quit date: 10/13/2022 Years since quittin.8 Passive exposure: Past Smokeless tobacco: Former Vaping Use Vaping status: Never Used Substance Use Topics Alcohol use: Yes Comment: occ Drug use: Not Currently Types: Marijuana FAMILY HISTORY Problem Relation Age of Onset Prostate Cancer Father Thyroid Cancer Sister Anesthesia Problems No Family History Malig Hyperthermia No Family History I spent a total of 30 minutes on the date of the service which included preparing to see the patient, [id number] patient care, completing clinical documentation, obtaining and/or reviewing separately obtained history, performing a medically appropriate examination, counseling and educating the patient/family/caregiver, ordering medications, tests, or procedures, independently interpreting results (not separately reported), communicating results to the patient/family/caregiver, and care coordination (not separately reported). Lakia Medina MD, CPE Hematology and Oncology Services Provided at: [place], [place] CC: Julian Burton MD [address] [facility] [id number] documented in this encounter [facility] 08-02-2024 Note [facility] 07-12-2024 History of Present illness Narrative Subjective Patient ID: Caitlin Elmore is a 59 y.o. male who presents for Cancer (1 month check up Squamous cell cancer of tongue ) RT ear pain has recurred. Remote h/o RT tympanomastoidectomy and OCR. 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) 02/24/2023 Squamous cell cancer of tongue (CMS/HCC) 02/24/2023 Hypertension (CMS/HCC) 02/24/2023 Hearing loss 04/09/2023 Acute swimmer's ear of right side 05/12/2023 Hypothyroid (CMS/HCC) 12/15/2023 Arthritis 02/14/2024 Poor urinary stream 02/14/2024 Asymptomatic microscopic hematuria 02/14/2024 Benign prostatic hyperplasia with urinary obstruction 02/14/2024 Hyperlipidemia (CMS/HCC) 02/14/2024 Adenomatous polyp of colon 02/14/2024 Hx of malignant neoplasm of prostate 02/14/2024 High prostate specific antigen (PSA) 02/14/2024 Severe protein-calorie malnutrition (CMS/HCC) 02/14/2024 Colon polyp 02/14/2024 Ear problems 02/14/2024 Mass in neck 02/14/2024 Chronic otorrhea of right ear 04/19/2024 Resolved Ambulatory Problems Diagnosis Date Noted Mass of neck 02/24/2023 Adenomatous polyp of colon 04/09/2023 Arthritis 04/09/2023 Asymptomatic microscopic hematuria 04/09/2023 Benign prostatic hyperplasia with urinary obstruction 04/09/2023 Family history of malignant neoplasm of prostate 04/09/2023 High prostate specific antigen (PSA) 04/09/2023 Hyperlipidemia (CMS/HCC) 04/09/2023 Poor urinary stream 04/09/2023 Severe protein-calorie malnutrition (CMS/HCC) 12/19/2022 Past Medical History: Diagnosis Date BPH (benign prostatic hyperplasia) HL (hearing loss) 1974 Nocturia Personal history of irradiation [id number] Tongue cancer (CMS/HCC) Past Surgical History: Procedure Laterality Date ADENOIDECTOMY 1975 LARYNGOSCOPY 10/18/2022 w/ biopsy, Anu MASTOID SURGERY TONSILLECTOMY 1972 TYMPANOSTOMY TUBE PLACEMENT 1973 No Known Allergies Current Outpatient Medications on File Prior to Visit Medication Sig Dispense Refill amLODIPine (Norvasc) 10 MG tablet Take 10 mg by mouth in the morning. hydrocortisone (Cortef) 5 MG tablet Take 5 mg by mouth Daily 2 tabs in AM, 1 tab PM ibuprofen 200 MG tablet Take by mouth levothyroxine (Synthroid, Levoxyl) 50 MCG tablet Take 50 mcg by mouth in the morning. Take before meals. lisinopril 40 MG tablet Take 40 mg by mouth in the morning. pravastatin (Pravachol) 20 MG tablet Take 20 mg by mouth in the morning. tadalafil (Cialis) 10 MG tablet Take 10 mg by mouth Daily as needed for erectile dysfunction tamsulosin (Flomax) 0.4 MG 24 hr capsule Take 0.4 mg by mouth in the morning. No current facility-administered medications on file prior to visit. Objective Last Recorded Vitals Vitals: 07/12/24 1319 BP: 138/88 ENT Physical Exam Constitutional Appearance: patient appears well-developed and well-nourished, Ear Ear comments: RT - thickened squamous epithelium covering TM Oral Cavity/Oropharynx OC/OP comments: OC/OP/IDL - no mass or ulcer Neck Neck comments: Supple, FROM, No LAD Assessment/Plan Diagnoses and all orders for this visit: Squamous cell cancer of tongue (CMS/HCC) MEGHNA today. Monthly appts till 10/2024 Chronic myringitis of right ear - ciprofloxacin-dexAMETHasone (CiproDEX) otic suspension; Administer 4 drops into affected ear(s) in the morning and 4 drops before bedtime. Do all this for 7 days. Start drops 5 days before appt and F/U in Juan[place] to amose documented in this encounter [facility] 07-06-2024 History of Present illness Narrative CAITLIN ELMORE [id number] 07/06/2024 [facility] Department of Radiation Oncology [facility] RADIATION ONCOLOGY: COMPLETION NOTE DATE OF SIMULATION: 06/28/24 DATES OF TREATMENT: 07/05/24 UNIT: [employer] 2 AREA TREATED: RUL lung DIAGNOSIS: Oligoprogressive 2 RUL lung metastases, from previously treated H&N cancer. ONCOLOGIC HX: 1. HPV positive BOT SCC Treatment History: 1. Concurrent Cisplatin and XRT 11/21/2021- XRTY completed 01/06/2023 and last dose of chemo 12/21/2022 (Total Hoopa dose= 200 mg/m2) 2. Recurrence in the Lung Biopsy proven 08/2023: PDL-1 insufficient and KRAS G12A, PIK3CA (Targeted Oncology only due to sample) 3. Carbo/Taxol ad Pembro 09/26/2023-12/11/2023 (Cycle 4) with response, Pembro monotherapy CONCURRENT THERAPY: none DELIVERED DOSE: Single isocenter for 2 lung lesions: 3400 cGy in 1 fx of 3400 cGy/fx were delivered with 6 FFF MV photons via SBRT coplanar VMAT abarca prescribed to the 85.7%IDL. Motion management by breath hold using ABC device, CBCT for IGRET. ELAPSED TIME: 0 days. TOLERANCE: no treatment related side effects reported on completion RESPONSE: To be assessed in outpatient clinic. REMARKS: The patient will be seen again in follow up in 3m with CT chest and PFTs. Staff Physician Tayla Ellsworth M.D 42:51 PM Electronically Signed cc: Julian Burton [facility] [place] [address] Elizabeth Borjas [address] [place] [id number] documented in this encounter [facility] 07-06-2024 Note [facility] 07-05-2024 History of Present illness Narrative Radiation Oncology - On Treatment Review (OTR) Note PATIENT NAME: Caitlin Elmore PATIENT DIAGNOSIS:Oligoprogressive 2 RUL lung metastases, from previously treated H&N cancer. PROTOCOL: no COURSE: Definitive and SBRT AREA TREATED: RUL lung, single isocenter for 2 lesions Current dose: 3400 cGy in 1 fx Planned dose: 3400 cGy in 1 fx SUBJECTIVE: Mr. Elmore presents for OTV after completing treatment. Tolerated treatment well. Denies radiation related issues or concerns. Reviewed possible side effects and follow up plan. Above completed by Pepe Pulliam RN Last 5 Encounter Wt Readings: Date: Wt: 07/05/2024 94.3 kg (207 lb 12.8 oz) 06/28/2024 94.2 kg (207 lb 9.6 oz) 06/20/2024 95.8 kg (211 lb 3.2 oz) 06/11/2024 94.3 kg (208 lb) 05/14/2024 94.3 kg (208 lb) PHYSICAL EXAM: BP 134/73 Pulse (!) 58 Temp 36.4 C (97.6 F) (Oral) Resp 16 Wt 94.3 kg (207 lb 12.8 oz) SpO2 100% BMI 29.00 kg/m Area Assessed: Chest KPS: 100 General Appearance: Alert and oriented. No acute distress. Chest: No respiratory distress IMAGING/LAB RESULTS: None TOXICITY ASSESSMENT (CTC v4.0): Fatigue: grade 0 - No symptoms Weight loss: grade 0 - No weight loss Nausea:Grade 0 - No Symptoms Radiation Dermatitis:grade 0 - No symptoms Dysphagia: grade 0 - No symptoms Esophageal Pain: Grade 0 - No symptoms Dyspnea: grade 0 (No symptoms) ASSESSMENT/PLAN: Clinically stable. No signs of toxicity. The patient has completed radiotherapy and will be seen in follow-up in ~12 weeks. Acute and delayed side effects reviewed. Medication started: No STAFF NOTE: I have personally participated in the bassett components of the case and agree with the above findings: Treatment chart checked: YES Patient treatment site reviewed and verified: YES Setup images reviewed and current: YES RTC in with CT chest and PFTs Signed by: Tayla Ellsworth MD documented in this encounter [facility] 07-05-2024 Note [facility] 06-28-2024 Hospital Discharge instructions Patient Education 06/28/2024 13:59:30 Prostate Cancer Screening Prostate Cancer Screening Prostate [...] treatment? Where to find more information [employer] [place] [employer]: www.cancer.org [place] [employer]: www.auanet.org Contact a health care [...] provider. Document Revised: 03/21/2022 Document Reviewed: 03/21/2022 [employer] Patient Education 2023 Preedo. Follow Up Care 07/07/2023 11:12:59 With:Rafa KELLEY, RENU Ibarra, URO Address: When: Unknown [facility] 06-28-2024 Note Patient Education Oncology Prostate Cancer Screening Prostate [...] Where to find more information ? The [place] [employer]: www.cancer.org ? [place] [employer]: www.auanet.org Contact a health care [...] bladder and in front of the rectum. (more content not included)... [facility] 06-28-2024 Note HNO ID: [id number] Author: KAROL SIMMONS RRT Service: ? Author Type: Registered Resp Therapist Type: Progress Notes Filed: 06/28/2024 12:08 Note Text: PULM FUNCTION: Provider: Tayla Ellsworth MD Spirometry: 1 DLCO: 1 System: MC9 - [id number] [facility] 06-28-2024 History of Present illness Narrative PULM FUNCTION: Provider: Tayla Ellsworth MD Spirometry: 1 DLCO: 1 System: MC9 - [id number] documented in this encounter [facility] 06-28-2024 Note [facility] 06-28-2024 History of Present illness Narrative Radiation Therapy - Patient Education Note PATIENT NAME: Caitlin Elmore PATIENT June 28, 2024 [facility] [place]/LOCATION: [facility] READINESS TO LEARN Cognitive Ability: Alert and oriented Motivation to learn: Eager Interested Family Support: Unable to assess - Family not present Instruction provide to: Patient Patient learns best by: Individual Instruction Written Instruction - Hand-outs Verbal Instruction Factors effecting learning: None Physical limitations effecting learning: None LEARNING RESPONSE Diagnosis: Pt simulated today for radiation therapy to right lung. Education Topic/Teaching Points: Radiation therapy, Side effects, and OTV: Method of instruction: Individual instruction Written instruction/Handouts Verbal instruction Patient /Family response: Patient verbalized understanding of radiation treatments, side effects, OTV, and transportation. Follow-up plan: Patient instructed to call with any further issues Supplemental material: Informational handouts on SBRT lung. Referral (recommendation): None, Pt denied need for social work, van service, and interior decorator. Was PED reviewed? Yes Patient has an Onbody or Implanted device: No Signed by: Lizett Garner RN documented in this encounter [facility] 06-28-2024 History of Present illness Narrative CAITLIN ELMORE [id number] 06/28/2024 [facility] Department of Radiation Oncology [facility] RADIATION ONCOLOGY SIMULATION NOTE DATE OF SIMULATION: 06/28/2024 MACHINE: CT Simulator DIAGNOSIS: Oligoprogressive 2 RUL lung metastases, from previously treated H&N cancer. ONCOLOGIC HX: 1.HPV positive BOT SCC Treatment History: 1.Concurrent Cisplatin and XRT 11/21/2021- XRTY completed 01/06/2023 and last dose of chemo 12/21/2022 ( Total Hoopa dose= 200 mg/m2) 2.Recurrence in the Lung Biopsy proven 08/2023: PDL-1 insufficient and KRAS G12A, PIK3CA ( Targeted Oncology only due to sample) 3.Carbo/Taxol ad Pembro 09/26/2023-12/11/2023 ( Cycle 4) With response, Pembro monotherapy AREA: R lung PATIENT POSITION: Supine. BLOCKS: MLC will be used. FIXATION DEVICE: A time-out was conducted and recorded by the therapist. The patient was immobilized in a custom created bodyfix device and abc breathing device. In order to limit respiratory excursion the patient was trained in the use of the automatic breathing control (ABC) device to be treated during breath-hold. CT images were obtained during ABC mediated breath-hold. Two additional limited CT images were obtained during subsequent breath-holds in order to verify consistency of respiratory immobilization. The patient tolerated the procedure without difficulty. Images were transferred to dosimetry for initiation of treatment planning. Beam arrangement and treatment dose will be determined during planning. Electronically Signed TAYLA ELLSWORTH M.D. 0:57 AM documented in this encounter [facility] 06-28-2024 History of Present illness Narrative CAITLIN ELMORE [id number] 06/28/2024 [facility] Department of Radiation Oncology Treatment Planning Note For reasons stated in the consult note, Caitlin Elmore is a candidate for radiation therapy. Based on review and interpretation of the relevant diagnostic studies together with the exam findings, Caitlin Elmore was simulated on 06/28/2024 at which time the target volume and/or requisite abarca were delineated, as indicated in the simulation note, to be treated according to the prescription. CT images were taken during controlled breathing using a breath hold device. Multiple CT image sets were acquired and reviewed to assess respiratory reproducibility, which was incorporated in the internal target volume (ITV). Motion management allowed for design of patient specific planning target volume and reduced the radiation exposure to normal tissues. The treatment target and organs at risk were contoured on the simulation scan. Special consideration to these and other structures was given in light of the potential for increased toxicities of stereotactic body radiation therapy (SBRT). Pulmonary function testing was reviewed. After reviewing multiple treatment plans with dosimetry, the best plan was approved to deliver the prescribed course of radiation to the target area using inverse planning to allow for the best isodose distribution, treating to the 85.7% isodose line with 6FFF and 2 abarca. Custom MLC's for IMRT were the treatment devices used [...] A completed summary of this plan dated 07/02/2024 incorporated herein by reference includes dose, beam arrangements, energy, blocking, isodose distribution, and/or ports and DVH. Electronically Signed Tayla Ellsworth M.D. 1:33 AM documented in this encounter [facility] 06-28-2024 Note [facility] 06-28-2024 Note [facility] 06-20-2024 Instructions Jackie Hoff - 06/20/2024 2:11 PM EDT Pembrolizumab today Proceed with radiation per Dr. Ellsworth RTC with me in 6 weeks for treatment Labs same day documented in this encounter [facility] 06-20-2024 History of Present illness Narrative Images from the original note were not included. NAME: Caitlin Elmore [facility] NO.: [id number] DATE OF SERVICE: June 20, 2024 ([place]) Some elements in this clinic note that are critical to medical decision making have been carefully reviewed and included from a prior clinic note dated: May 08, 2024 ([place]) Referring Provider: Elizabeth Borjas MD Additional Clinicians involved in Caitlin Elmore's care: DIAGNOSIS: HPV positive BOT SCC ASSESSMENT: 59 year old male here for follow up. BOT HPV positive locally advanced on concurrent therapy completed 01/06/2023 and received a total of 200 mg/m2 of nanwalek as well. PET with response 04/2023. CT [...] consider SBRT to the 2 pulmonary lesions PET positive in the prostate and he follows urology CRI- Stable PLAN: Pembrolizumab today Proceed with radiation per Dr. Ellsworth RTC with me in 6 weeks for treatment Labs same day HPI: CASE HISTORY: Reverse Chronological Order 05/21/2024 - Bronchoscopy: Lymph node, 10R, biopsy: -Necrotic material and minute cluster of bland epithelial cells Comment: A minute cluster of epithelial cells is noted, without prominent atypia, favored to represent bronchial cells. No definite malignancy is identified. No definite lymph node tissue or granuloma is demonstrated. GMS and AFB/Melissa stains will be performed and results will be reported in an addendum. 04/2024 - CT CAP: Chest: Nodular opacities in right lung measuring up to 1.6 cm worrisome for metastases, increased in size since 12/08/23. Mild right hilar lymphadenopathy, either stable or slightly smaller. A/P: No evidence of intra-abdominal/pelvic metastases. No interval change since 12/08/23. Nonspecific subcentimeter hepatic foci, stable 01/02/2024-Current - Pembro monotherapy 11/2023 - CT CAP: Chest: Improvement in the previously seen pulmonary nodules [...] is suspicious for progression of metastatic adenopathy. A/P: No evidence of metastatic disease in the abdomen or pelvis. Enlargement of the prostate gland 09/26/2023-12/11/2023 - Carbo/Taxol + Pembro 4 cycles with response 09/2023 - PET/CT: CHEST: Right upper lobe lung nodule increased in size and metabolic activity, associated with new right hilar FDG avid hilar lymphadenopathy most suspicious for neoplastic process. Slightly more prominent nodules in the right lung with mild uptake are also seen. HEAD/NECK, ABDOMEN/PELVIS, & EXTREMITIES/SKELETON: No evidence of focal uptake to suggest FDG avid neoplastic process. 08/2023 - RUL biopsy: Lung, right upper lobe, nodule, biopsy: - HPV-associated squamous cell carcinoma (see comment). KRAS [id number]:c.35G>A 51.2% VAF, Depth 4267x, Ex2 PIK3CA [id number]:c.1633G>A 21.7% VAF, Depth 5015x, Ex10 PDL-1 Insufficient 07/2023 - CT Chest: Since 04/14/2023, multiple enlarging right lung nodules, suspicious for metastases. No progressive lymphadenopathy. 04/2023 - PET/CT: NECK: Interval resolution of intense uptake in the right tongue base. Resolution of FDG avid cervical lymphadenopathy. CHEST: New subcentimeter right upper lobe pulmonary nodules, too small to accurately assess for FDG uptake. Differential includes infection/inflammation or metastasis. Attention on follow-up recommended. No FDG avid lymphadenopathy. ABDOMEN/PELVIS: Similar appearance of focal FDG uptake in the left prostate gland. This is concerning for primary prostatic malignancy. Correlation with MRI prostate without and with IV contrast is recommended. Otherwise, no FDG avid lymphadenopathy. EXTREMITIES/SKELETON: No suspicious FDG avid osseous lesion. 11/2022 - PET/CT: NECK: Intensely hypermetabolic right oropharyngeal region mass compatible with neoplastic process. Hypermetabolic right cervical lymphadenopathy suspicious for metastatic lymphadenopathy. CHEST: No evidence of FDG avid neoplastic process ABDOMEN/PELVIS: No evidence of FDG avid metastases. Increased activity in the prostatic region correlation with PSA is suggested. 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 10/2022 - CT Neck: Large posterior right tongue base mass consistent with history of neoplasm. Large right parapharyngeal/level 2 lymph node versus mass; also seen on prior ultrasound study and previously biopsied 11/21/2021 - Concurrent Cisplatin + radiation - Cisplatin completed: 12/21/2021 (total nanwalek dose: 200mg/m2), radiation completed: 01/06/2022 Initial Visit, June 20, 2024: Transition of Care Caitlin Elmore presents today to transition his care as his previous provider left the practice. He is joined by his , Clarissa. Recent lymph node biopsy was negative for malignancy, positive for necrotic tissue. He will undergo one radiation treatment to lung nodules in about [address] Ellsworth. Continue pembrolizumab today and q 6 weeks. They have 5 children - ages 30-19. CLARICE is from [place], Clarissa is from [place]. May 08, 2024: Caitlin Elmore is a 59 year old year old male here for follow up. Doing well outside of mild arthralgia. Denies any nausea and or abdominal pain and or diarrhea. Denies any skin rash and or cough REVIEW OF SYSTEMS Per HPI and otherwise negative by full review of organ systems. ECOG PERFORMANCE STATUS: 1 PHYSICAL EXAMINATION: Vitals: BP 144/87 Pulse 64 Temp (Src) 97.7 (Temporal) Resp 16 Ht 5' 10.984 (1.80m) Wt 211 lb 3.2 oz (95.8kg) SpO2 99% BMI 29.47 kg/(m^2). Body surface area is 2.19 meters squared. Exam limited to gross visualization where appropriate. [...] skin without rash, lesions, wounds or petechiae. ALLERGIES: ALLERGIES No Known Allergies MEDICATIONS: levothyroxine (SYNTHROID) 50 mcg tablet TAKE 1 [...] by mouth every 6 hours as needed. LABORATORY VALUES: WBC (k/uL) Date Value 06/20/2024 6.49 RBC (m/uL) Date Value 06/20/2024 4.70 Hemoglobin (g/dL) Date Value 06/20/2024 13.8 Hematocrit (%) Date Value 06/20/2024 39.4 MCV (fL) Date Value 06/20/2024 83.8 MCH (pg) Date Value 06/20/2024 29.4 MCHC (g/dL) Date Value 06/20/2024 35.0 RDW-CV (%) Date Value 06/20/2024 12.1 Platelet Count (k/uL) Date Value 06/20/2024 191 MPV (fL) Date Value 06/20/2024 8.0 (L) Glucose (mg/dL) Date Value 06/20/2024 96 BUN (mg/dL) Date Value 06/20/2024 18 Creatinine (mg/dL) Date Value 06/20/2024 1.39 (H) Sodium (mmol/L) Date Value 06/20/2024 140 Potassium (mmol/L) Date Value 06/20/2024 4.6 Chloride (mmol/L) Date Value 06/20/2024 102 CO2 (mmol/L) Date Value 06/20/2024 26 Protein, Total (g/dL) Date Value 06/20/2024 7.4 Albumin (g/dL) Date Value 06/20/2024 4.6 Calcium, Total (mg/dL) Date Value 06/20/2024 10.6 (H) Alkaline Phosphatase (U/L) Date Value 06/20/2024 86 Bilirubin, Total (mg/dL) Date Value 06/20/2024 0.3 AST (U/L) Date Value 06/20/2024 14 ALT (U/L) Date Value 06/20/2024 11 DIAGNOSIS: (C01) 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) (primary encounter diagnosis) (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.9) 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) Adrenal insufficiency (HCC) PAST MEDICAL HISTORY Diagnosis Date Hard of hearing HTN (hypertension) Hypercholesteremia PAST SURGICAL HISTORY Procedure Laterality Date BIOPSY OF ORAL TISSUE SOFT BRONCHOSCOPY W/PLACEMENT TRACHEAL STENT 09/2023 PAST SURGICAL HISTORY OF Right mastoidectomy and incus repair TONSILLECTOMY & ADENOIDECTOMY <AGE 13 Social History Tobacco Use Smoking status: Former Current packs/day: 0.00 Average packs/day: 1 pack/day for 35.0 years (35.0 ttl pk-yrs) Types: Cigarettes Start date: 10/13/1987 Quit date: 10/13/2022 Years since quittin.6 Passive exposure: Past Smokeless tobacco: Former Vaping Use Vaping status: Never Used Substance Use Topics Alcohol use: Yes Comment: occ Drug use: Not Currently Types: Marijuana FAMILY HISTORY Problem Relation Age of Onset Prostate Cancer Father Thyroid Cancer Sister Anesthesia Problems No Family History Malig Hyperthermia No Family History I spent a total of 30 minutes on the date of the service which included preparing to see the patient, [id number] patient care, completing clinical documentation, obtaining and/or reviewing separately obtained history, performing a medically appropriate examination, counseling and educating the patient/family/caregiver, ordering medications, tests, or procedures, independently interpreting results (not separately reported), communicating results to the patient/family/caregiver, and care coordination (not separately reported). Lakia Medina MD, CPE Hematology and Oncology Services Provided at: [place], [place] Scribe Attestation: This note was scribed by Jackie Hoff on June 20, 2024 under the direction and supervision of Dr. Lakia Medina. I attest that all of the information documented is correct to the best of my knowledge. Provider Attestation: I, Lakia Medina MD, attest that all information documented by the above scribe is correct, and was supervised by me and under my direction. CC: Julian Burton MD [address] [facility] [id number] documented in this encounter [facility] 06-20-2024 Note [facility] 06-17-2024 Telephone encounter Note ANNY patient scheduled 06/20 needs lab orders. Tayler Silva MA [facility] 06-17-2024 Miscellaneous Notes ANNY patient scheduled 06/20 needs lab orders. Tayler Silva MA documented in this encounter [facility] [place] 06-13-2024 Evaluation note Diagnosis Oropharnyx cancer (HCC) Malaise and fatigue Other malaise and fatigue Thunderclap headache Headache Pre-op evaluation- Primary Preoperative examination, unspecified 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 Former smoker Personal history of tobacco use, presenting hazards to health Hypothyroidism, unspecified type Adrenal insufficiency (HCC) Glucocorticoid deficiency Primary hypertension Unspecified essential hypertension Hyperlipidemia, unspecified hyperlipidemia type Stage 3 chronic kidney disease, unspecified whether stage 3a or 3b CKD (HCC) documented in this encounter [facility] [place]09[facility]04[facility] of Present illness Narrative* Tayla Ellsworth MD - 06/12/2024 11:24 AM EDT Radiation Oncology - New Patient/Consult Note PATIENT NAME: Caitlin Elmore PATIENT REQUESTING PROVIDER: Elizabeth Borjas MD. DIAGNOSIS: 59 year old male with oligoprogressive R lung metasases, from previously treated H&Ncancer. Cancer Staging 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) Staging form: Lip and Oral Cavity, AJCC 8th Edition - Clinical stage from 11/02/2022: Stage III (cT3, cN1, cM0) - Signed by Elizabeth Borjas MD on 11/02/2022 HPI: 59 year old male who presents with above diagnosis, for an opinion regarding the role of radiation therapy in the management of the patient's disease. Final recommendations will be communicated back to the requesting physician by way of the shared medical record, or letter to requesting physician via US mail. Diagnosis: HPV positive BOT SCC Treatment History: Concurrent Cisplatin and XRT 11/21/2021- XRTY completed 01/06/2023 and last dose of chemo 12/21/2022 (Total Hoopa dose= 200 mg/m2) Recurrence in the Lung Biopsy proven 08/2023: PDL-1 insufficient and KRAS G12A, PIK3CA ( Targeted Oncology only due to sample) Carbo/Taxol ad Pembro 09/26/2023-12/11/2023 ( Cycle 4) With response, Pembro monotherapy The pt is seen today with his . He is seen at the request of his medical oncologist to discuss the role of lung SBRT in his care. He has a known hx of H&N cancer treated in [place] in 2021. Unfortunately he then developed a lung relapse. He has been on systemic therapy including IO with good control however now appears with two slowly progressing lung lesions consistent with oligometastases. He is clinically well, he has no respiratory issues, or chest complaints. He is fully recovered from his previous H&N therapy. He has no residual swallowing or oral issues. 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 He is able-bodied and conducts his work without issues. His case was discussed at a recent tumor board. Per 05/[address] Borjas: His CT with the same 2 nodules growing and case discussed at TB. Plan for EBUS and if hilar node is negative consider SBRT to the 2 pulmonary lesions Focused ROS: Fatigue: no Weight loss: None Appetite: excellent Nausea: no Shortness of breath: No Cough: No Hemoptysis: No Dysphagia: No Pain with swallowing: No ALLERGIES No Known Allergies MEDICATIONS: levothyroxine (SYNTHROID) 50 mcg tablet TAKE 1 [...] 6 hours as needed. PAST MEDICAL HISTORY No date: Hard of hearing No date: HTN (hypertension) No date: Hypercholesteremia Prior radiation therapy, collagen vascular disease, or inflammatory bowel disease: Yes, RADIATION ONCOLOGY - COMPLETION NOTE PATIENT: CAITLIN ELMORE : 1965 DATES OF TREATMENT: 11/21/22-01/06/23 DIAGNOSIS: Oropharyngeal [...] SUMMARY: The patient received concurrent weekly chemotherapy. Any implanted or external electric devices? No status: male PAST SURGICAL HISTORY No date: BIOPSY OF [...] Social History Tobacco Use Smoking status: Former Current packs/day: 0.00 Average packs/day: 1 pack/day for 35.0 years (35.0 ttl pk-yrs) Types: Cigarettes Start date: 10/13/1987 Quit date: 10/13/2022 Years since quittin.6 Passive exposure: Past Smokeless tobacco: Former Vaping Use Vaping status: Never Used Substance Use Topics Alcohol use: Yes Comment: occ Drug use: Not Currently Types: Marijuana COMPLETE REVIEW OF SYSTEMS: All other ROS: negative As noted in HPI PHYSICAL EXAM: VS: BP 124/81 Pulse 68 Temp 36.7 C (98 F) (Oral) Resp 18 Wt 94.3 kg (208 lb) SpO2 100% BMI 29.01 kg/m KPS: 100 General Appearance: Alert and oriented. No acute distress. HEENT: NCAT. Sclera anicteric. PERRL. EOMI. Neck: Normal ROM. No palpable cervical or supraclavicular adenopathy. Chest: No respiratory distress. Lungs clear to auscultation bilaterally. Heart: Regular rate and rhythm. Abdomen: Soft. Nontender. Nondistended. Musculoskeletal: No edema. Normal ROM in extremities. No bone or spine tenderness. Neuro: Speech fluent. Gait normal. No focal deficits. Skin: No rashes noted Lymphatics: No palpable lymphadenopathy. Hematologic: No signs of active bleeding. RADIOLOGY/LABORATORY DATA: 05/21/2024 11:47 AM - [facility] Results-Findings [facility] Patient Name: Caitlin Elmore Procedure Date: 05/21/2024 10:41 AM Date of : 1965 Admit Type: Ambulatory Age: 59 Room: [facility] Room 2 Gender: Male Attending MD: Ras Starr MD, [id number] Procedure: Bronchoscopy Indications: Mediastinal adenopathy Providers: Ras Starr MD (Doctor), Karol Raines RN (Assisting Nurse), Ana Wolf RN [...] aspiration was also performed using an Olympus IndaBoxiShot 22 gauge needle and sent for routine [...] node level 7, and preliminary cytology was non-diagnostic in node level 4L (final results are pending). Recommendation: - Await test results. SURGICAL PATHOLOGY: [id number] Order: [id number] Collected 05/21/2024 11:20 AM Status: Edited Result - FINAL Visible to patient: Yes (seen) Dx: Adenopathy 0 Result Notes Component FINAL DIAGNOSIS Lymph node, 10R, biopsy: -Necrotic material and minute cluster of bland epithelial cells (see comment). Diagnosis Comment VC A minute cluster of epithelial cells is noted, without prominent atypia, favored to represent bronchial cells. No definite malignancy is identified. No definite lymph node tissue or granuloma is demonstrated. GMS and AFB/Melissa stains will be performed and results will be reported in an addendum. CYTOLOGY NON-FRUIT SORTER: [id number] Order: [id number] Collected 05/21/2024 10:22 AM Status: Final result Visible to patient: Yes (seen) Dx: Adenopathy 0 Result Notes Component FINAL DIAGNOSIS A - Lymph Node, Transbronchial, Aspirate/Fine Needle [...] Alcohol Fixed C1 Cell Block, Alcohol Fixed Diagnosis Comment A. Histochemical stains with appropriate controls for AFB and GMS performed on cell block A are negative for mycobacterial and fungal organisms, respectively. B. The limited benign lymphoid sample is present on the ThinPrep slide and in the cell block only, which explains the discrepancy between the GIULIA and final diagnoses for part B. Results CT CHEST W IVCON (Acc#[id number]) (Order [id number]) Patient Info Patient Name Sex Caitlin Jorgensen ([id number]) Male 1965 05/03/2024 6:25 PM - Radiology, O[place] In Impression IMPRESSION: 1. Nodular opacities in right lung measuring up to 1.6 cm worrisome for metastases, increased in size since 12/08/23 2. Mild right hilar lymphadenopathy, either stable or slightly smaller.. Transcribe Date/Time: May 03 2024 5:55P Dictated by: DAVID LEY MD This examination was interpreted and the report reviewed and electronically signed by: DAVID LEY MD on May 03 2024 6:23PM EST Thank you for allowing us to participate in the care of your patient. Should there be any questions regarding this interpretation, please call [phone]. If you are unable to reach us at the number above, please feel free to contact [facility] at [phone]. Results-Findings * * *Final Report* * * DATE OF EXAM: May 03 2024 8:40AM [facility] [id number] - CT CHEST W IVCON / PROCEDURE REASON: multiple diagnoses * * * * Physician Interpretation * * * * RESULT: EXAMINATION: CHEST CT WITH CONTRAST CLINICAL HISTORY: Oropharyngeal cancer Technique: Spiral CT acquisition of the chest from the thoracic inlet to the upper abdomen following IV contrast. MQ: CTCW_6 Contrast: 150 mL Omnipaque [address] Radiation dose: Integrated Dose-length product (DLP) for this visit = 1021 mGy*cm CT Dose Reduction Employed: Automated exposure control (AEC) Comparison: 12/08/23 RESULT: Limitations: None. Lines, tubes, and devices: None. Lung parenchyma and airways: Multiple airspace opacities. For example: * 1.6 cm right upper lobe nodular opacity (4:64), previously a cluster of nodular opacities measuring less than 5 mm, increased in size * 1.1 cm right upper lobe (4:87), previously 3 mm, increased in size Calcified granuloma is noted in the right upper lobe. No focal consolidation. The central airways are patent. Pleural space: No pleural effusion. No pleural thickening. Lower neck, lymph nodes, and mediastinum: The imaged thyroid gland is normal. Mild right hilar lymphadenopathy measuring 1.4 cm short axis (3:87), previously 1.6 cm, either stable or slightly smaller.. Heart, pericardium, and thoracic vessels: The thoracic aorta and main pulmonary artery are normal in caliber. The cardiac chambers are normal in size. Atherosclerotic coronary artery calcifications are noted. No pericardial effusion or thickening. Bones and soft tissues: No new osseous abnormalities. Upper abdomen: Please refer to the abdomen CT scan report for the abdomen findings. Localizer images: No additional findings. MRI BRAIN 04/12/24- no evidence of metastases. ASSESSMENT AND PLAN: pt with previous hx of treated H&N cancer who then developed limited metastatic disease in the chest. He has been on CHT/IO with evidence of response but now with progressionin 2 RUL lung nodules and no evidence of disease otherwise. We discussed the paradigm of ablative therapy in the setting of continued maintenance IO to ablate clonal progression while maintaining theIO. In that regard, lung SBRT is employed to optimize benefits and minimize toxicity. We discussed the risks, beneftits, alternatives, side effects and personnel of stereotactic body radiation therapy to the two R lung sites with excellent chance of local control. That said, he was counseled that this may not impact future sites of distant failure We also reviewed the potential toxicity profile though the majority of patients with synchronous tumor treatments. will have no measurable toxicity from treatment including no statistically significant change in PFT's. Given the size and peripheral locations of the lesions I would recommend treatment to 34 Gy in 1 fraction to each. Lung SBRT literature provided. He wishes his care at [facility]. We also reviewed the fact that biopsy was not done on the individual lung lesions, however that based on CT and PET results the chances of this lesion representing lung malignancy is much greater than the minimal chance of treating an inflammatory lesion or other condition. Given the limited toxicity profile of treatment and high likelihood of a lung cancer we discussed the RBAP of proceeding with therapy at this point in comparison with an attempt at biopsy. The patient demonstrated his understanding of the pertinent issues and gave his informed consent toproceed. We will schedule simulation and initiation of radiation therapy in the upcomming days. 50 minutes was spent in consultation greater than 50% of which was direct counseling regarding treatment decisions and coordination of care. Baseline PFTs will be done prior to treatment. Signed by: Tayla Ellsworth MD cc: Julian M Josephine [facility] [place] [address] Elizabeth [facility] [id number] [facility] Telephone encounter Note * Telephone Encounter - Disha Salgado - 06/03/2024 1:04 PM EDT Caitlin you have been scheduled at [facility] 06-11-24. 2:15pm. Dr. Ellsworth does not see for your diagnosis. Thank you for your patience. [facility] [place]08-26-2024 Miscellaneous Notes* Telephone Encounter - Disha Salgado - 06/03/2024 1:04 PM EDT Caitlin you have been scheduled at [facility] 06-11-24. 2:15pm. Dr. Ellsworth does not see for your diagnosis. Thank you for your patience. [facility] [place]24 NoteHNO ID: [id number] Author: JING HOWELL APRN.BUSINESS DEAN Service: Anesthesiology Author Type: Nurse Director Human Services Type: Anesthesia Procedure Notes Filed: 05/21/2024 10:54 Note Text: ANESTHESIOLOGY PROCEDURE NOTE Airway General Information Procedure Start Time/Medication Administration: 05/21/2024 10:45 AM Procedure End Time: 05/21/2024 10:45 AM Patient location during procedure: OR Timeout Performed Pre-procedure: timeout performed Consent Obtained: Yes Patient identity confirmed: arm band, care team coordinator and patient Staffing BUSINESS DEAN: Jing Howell APRN.BUSINESS DEAN Performed by: BUSINESS DEAN Indications and Patient Condition Indications for airway management: anesthesia Preoxygenated: yes anesthesia circuit Patient position: sniffing Method: asleep Difficult Mask: No Final Airway Details Final airway type: supraglottic airway Number of attempts at approach: 1 Final Supraglottic Airway: IGEL Size 5 Seal Adequate: yes Airway not difficult Comments Teeth and lips in preanesthetic condition. SIGNATURE: Jing Howell APRN.CRNA PATIENT NAME: Caitlin Elmore DATE: May 21, 2024 TIME: 10:54 AM CSN: [id number] [facility]: Caitlin Elmore Procedure Date: 05/21/2024 10:41 AM Date of : 1965 Admit Type: Ambulatory Age: 59 Room: [facility] Room 2 Gender: Male Attending MD: Ras Starr MD, [id number] Procedure: Bronchoscopy Indications: Mediastinal adenopathy Providers: Ras Starr MD (Doctor), Karol Raines RN (Assisting Nurse), Ana Wolf RN [...] preliminary cytology was non- (more content not included)...[facility] [id number] History of Present illness Narrative* Karolina Catalan MD - 05/17/2024 9:30 AM EDT Pre-Bronchoscopy H&P CONSULTATION PCP: Julian Burton MD No ref. provider found Chief Complaint: Pre-bronchoscopy evaluation I have communicated my name and active licensure. The patient's identity and physical location wereverified at the time of this visit. Either the patient or their legal primary care sales representative has been informed of the risks and benefits of -- and alternatives to -- treatment through a remote evaluation andconsents to proceed with the evaluation remotely. HPI: Caitlin Elmore is a 59 year old who presents today for the evaluation of past medical history prior to proceeding with bronchoscopy. 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 Most recent chest CT scan showed continue nodular opacities in the R lung with mild R hilar lymphadenopathy. After discussion at tumor board, there are plans for EBUS and if hilar nodes are negative,plan for SBRT of his pulmonary nodules. Note [...] Ozempic, Mounjaro, Trulicity, etc); SGLT2 inhibitors (ie - flozin drugs - Jardiance, etc) Patient is negative for neurological risk factors (ie History of stroke or traumatic brain injury with residual deficit, history of stroke or TIA (recovered) that is not yet deemed stable by neurology, advanced dementia, any neurologic impairment requiring assistance with 1 or more basic ADL s, poorly- controlled seizure disorder, etc) Patient has a history of radiation for his oral cancer. He notes some possible mild issues with range of motion of the neck. Otherwise no airway compromise risk factors. Able to look up and rotate head from oide-oo-deom. ECOG PERFORMANCE STATUS: 0- Fully active, able [...] 426 QTC Calculation (Bazett) 446 Calculated P Newport 61 Calculated R Newport -5 Calculated T Newport 45 Impression NORMAL SINUS RHYTHM NORMAL ECG ROS-negative for chest pain, dyspnea, cough, wheezing or use of inhalers/nebulizers. 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 #1 Gxbv-wu-maiouz SCC s/p chemotherapy + XRT with metastatic [...] which included preparing to see the patient, oyrz-gh-csws patient care, and completing clinical documentation. [facility] in [facility] [place] NoteHNO ID: [id number] Author: KAROLINA CATALAN MD Service: ? Author Type: Physician Type: Progress Notes Filed: 05/17/2024 10:00 Note Text: Pre-Bronchoscopy HANDP CONSULTATION PCP: Julian Burton MD No ref. provider found Chief Complaint: Pre-bronchoscopy evaluation I have communicated my name and active licensure. The patient's identity and physical location were verified at the time of this visit. Either the patient or their legal primary care sales representative has been informed of the risks and benefits of -- and alternatives to -- treatment through a remote evaluation and consents to proceed with the evaluation remotely. HPI: Caitlin Elmore is a 59 year old who presents today for the evaluation of past medical history prior to proceeding with bronchoscopy. Briefly, he has a past medical history significant for notv-yx-yewsqa SCC s/p cisplatin and XRT 5888-1216 with recurrent in lung s/p robotic bronchoscopic [...] to look up and rotate head from ufxq-iw-mdbh. ECOG PERFORMANCE STATUS: 0- Fully active, able [...] mouth every 6 ho (more content not included)...[facility] [id number] Nurse Note* Dorys Dutton MA - 05/16/2024 2:58 PM EDT EKG performed as ordered, transmitted electronically to [facility] main. Dorys Dixon MA [facility] [place]08-08-2024 Nurse Note* Dorys Dutton MA - 05/16/2024 2:58 PM EDT EKG performed as ordered, transmitted electronically to [facility] main. Dorys Dixon MA documented in this encounter[facility] [place] Instructions* Patient Instructions* Negrita Gaffney PA - 05/14/2024 2:38 PM EDT Images from the original note were not included. [facility] PATIENT PREOPERATIVE INSTRUCTIONS Ras Starr MD has scheduled you for your procedure at this surgery center: [facility]: [phone] --[id number] [address]. Please check in on thet floor at registration desk 6. Please read [...] Procedures: - YOU MUST HAVE A RESPONSIBLE WEIGHT YARDAGE CHECKER TAKE YOU HOME. A [employer] RETAILER SALES CONSULTANT OR ON AIR TALENT CANNOT BE MADE A RESPONSIBLE WEIGHT YARDAGE CHECKER. - We recommend that a responsible person stays with you overnight to take care of you. - You cannot stay in a hotel alone after outpatient surgery. You will not be permitted to have yoursurgery, if you do not have someone to [...] Advance Directive, please fax a copy to [phone] or email to for it to be added to your chart. If you do not have an Advance Directive, you can find the appropriate form and more information at [email or web address]. We recommend that youcomplete the Advance Directive form found on the website and bring it with you the day of your surgery. It can be witnessed and scanned into your chart that day. FRANCISCO Burnett documented in this encounter[facility] [place] History and physical note * Negrita Gaffney PA - 05/14/2024 2:30 PM EDT Images from the original note were not included. [facility] HISTORY AND PHYSICAL EXAMINATION SERVICE DATE: 05/14/2024 SERVICE TIME: 2:50 PM PRIMARY CARE PHYSICIAN: Julian Burton MD Assessment Patient has the following [...] have a large neck STOP-Bang Score: 4 [id number] Score: Hypertension history: Yes [id number] Score: ANESTHESIA FINDINGS: Intubation History: No history of difficult intubation Significant Anesthesia Considerations: none Airway History: No history of difficult airway I - PHYSICAL EVALUATION AIRWAY Patient intubated: No. Tracheostomy tube not present Mallampati: III. TM distance: >3 FB. Neck ROM: full ROM without neurological symptoms. Mouth opening: adequate. Short neck: no. Thick neck: no Hassan present: yes Lip Bite Test: II Microretrognathia/Micronagthia/Recessed Chin: No DENTAL Dental findings: missing tooth/teeth. [...] encounter. This is a virtual visit using Wingz video visit. It required patient-provider interaction for themedical decision making as documented below. REASON FOR [...] COVID-19 original vaccine, age 12+ yr, monovalent (PFIZER- BIONTECH - PURPLE TOP) 08/06/2021 Imm Admin: COVID-19 original vaccine, age 12+ yr, monovalent (PFIZER- BIONTECH - PURPLE TOP) CHIEF COMPLAINT: Pre-anesthesia consultation HPI: 59 year old year old male presents today for a pre-anesthesia consultation for the above procedure. Patient has a h/o oral cancer and is scheduled for a bronchoscopy to rule out metastasis. Denies fever or chills. This is a virtual visit. The visit was conducted using Wingz video visit. It required patient-provider interaction for the medical decision making as documented below. I have communicated my name and active licensure. The patient's identity and physical location wereverified at the time of this visit. Either the patient or their legal primary care sales representative has been informed of the risks and benefits of and alternatives to treatment through a remote evaluation and consents to proceed with the evaluation remotely. REVIEW OF SYSTEMS: General: No weight loss, malaise or fevers. Neurological: No history of TIA's, stroke, NANNY/HOUSEHOLD MANAGER tumor, impaired sensorium, hemiplegia, paraplegia orquadraplegia. No neurological symptoms or problems. Respiratory: See [...] 452 QTC Calculation (Bazett) 420 Calculated P Newport 64 Calculated R Newport 23 Calculated T Newport 43 Impression SINUS BRADYCARDIA OTHERWISE NORMAL ECG Confirmed by SAHARA GARCIA M.D. ([id number]) on 08/29/2023 2:56:05 PM No results found for this or any previous visit (from the past 95970 hour(s)). Instructions Given to Patient: Instructions located in the after visit summary. Patient given verbal and written preop instructions and voices comprehension and compliance. SIGNATURE: FRANCISCO Burnett PATIENT NAME: Caitlin Elmore DATE: May 14, 2024 TIME: 11:09 AM PAGER/CONTACT #: [facility] [place]08-06-2024 History and physical note* Negrita Gaffney PA - 05/14/2024 2:30 PM EDT Images from the original note were not included. [facility]est[facility] HISTORY AND PHYSICAL EXAMINATION SERVICE DATE: 05/14/2024 SERVICE TIME: 2:50 PM PRIMARY CARE PHYSICIAN: Julian Burton MD Assessment Patient has the following [...] have a large neck STOP-Bang Score: 4 [id number] Score: Hypertension history: Yes [id number] Score: ANESTHESIA FINDINGS: Intubation History: No history of difficult intubation Significant Anesthesia Considerations: none Airway History: No history of difficult airway I - PHYSICAL EVALUATION AIRWAY Patient intubated: No. Tracheostomy tube not present Mallampati: III. TM distance: >3 FB. Neck ROM: full ROM without neurological symptoms. Mouth opening: adequate. Short neck: no. Thick neck: no Hassan present: yes Lip Bite Test: II Microretrognathia/Micronagthia/Recessed Chin: No DENTAL Dental findings: missing tooth/teeth. [...] encounter. This is a virtual visit using Wingz video visit. It required patient-provider interaction for themedical decision making as documented below. REASON FOR [...] COVID-19 original vaccine, age 12+ yr, monovalent (PFIZER- BIONTECH - PURPLE TOP) 08/06/2021 Imm Admin: COVID-19 original vaccine, age 12+ yr, monovalent (PFIZER- BIONTECH - PURPLE TOP) CHIEF COMPLAINT: Pre-anesthesia consultation HPI: 59 year old year old male presents today for a pre-anesthesia consultation for the above procedure. Patient has a h/o oral cancer and is scheduled for a bronchoscopy to rule out metastasis. Denies fever or chills. This is a virtual visit. The visit was conducted using MyChart video visit. It required patient-provider interaction for the medical decision making as documented below. I have communicated my name and active licensure. The patient's identity and physical location wereverified at the time of this visit. Either the patient or their legal primary care sales representative has been informed of the risks and benefits of and alternatives to treatment through a remote evaluation and consents to proceed with the evaluation remotely. REVIEW OF SYSTEMS: General: No weight loss, malaise or fevers. Neurological: No history of TIA's, stroke, NANNY/HOUSEHOLD MANAGER tumor, impaired sensorium, hemiplegia, paraplegia orquadraplegia. No neurological symptoms or problems. Respiratory: See [...] 452 QTC Calculation (Bazett) 420 Calculated P [place] 64 Calculated R [place] 23 Calculated T [place] 43 Impression SINUS BRADYCARDIA OTHERWISE NORMAL ECG Confirmed by SAHARA GARCIA M.D. ([id number]) on 08/29/2023 2:56:05 PM No results found for this or any previous visit (from the past 18257 hour(s)). Instructions Given to Patient: Instructions located in the after visit summary. Patient given verbal and written preop instructions and voices comprehension and compliance. SIGNATURE: FRANCISCO Burnett PATIENT NAME: Caitlin Elmore DATE: May 14, 2024 TIME: 11:09 AM PAGER/CONTACT #: documented in this encounterSelect Medical [facility] [place]08-[facility]24 NoteHNO ID: [id number] Author: ?, ?, ? Service: ? Author Type: ? 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 Author [...] CLARICE Starr MD May 13, 2024 6:37 [facility]08-05-2024 History of Present illness Narrative* Ras Starr MD - 05/13/2024 6:37 PM EDT Bronchoscopy Request: Please schedule patient for the [...] 13, 2024 6:37 PM documented in this encounterSelect Medical [facility], [place]08-02-2024 Instructions* Patient Instructions* Chuck Jones MD - 05/10/2024 10:36 AM EDT Skip afternoon dose of hydrocortisone and come to the lab around 7:30 AM for a cortisol test. Take the hydrocortisone morning dose after blood draw. documented in this encounterSelect Medical [facility], [place]08-02-2024 History of Present illness Narrative* Chuck Jones MD - 05/10/2024 9:52 AM EDT ENDOCRINOLOGY REASON FOR CONSULTATION: Adrenal insufficiency The patient is referred by Tremaine Gomez. My recommendations will be sent to the referring physician/provider either by letter or shared electronic medical record. HISTORY HPI: Caitlin Elmore is a 59 year old male who comes in here for evaluation of adrenal insufficiency. Pt started to feel exhausted since end of February 2024. 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 Last dose was on 05/08/24. From Oncology note: Concurrent Cisplatin and XRT 11/21/2021- XRTY completed 01/06/2023 and last dose of chemo 12/21/2022 ( Total Hoopa dose= 200 mg/m2). Recurrence in the Lung [...] Pt was started on hydrocortisone on 03/28/24, 10mg at 7 AM and 5 mg around [...] temperature. No rash. LABS RESULTS: Latest Ref Rng 09/26/2023 9:34 AM 10/20/2023 8:20 AM 11/14/2023 [...] (12/08/23): Adrenals: No mass. ASSESSMENT & PLAN: Caitlin Elmore is a 59 year old [...] 22. 5 mg per day). Will assess otherpituitary function indicators, knowing that hypophysitis related to pembrolizumab is rare. Plan: CONSULT TO ENDOCRINOLOGY, BIOAVAILABLE TESTOSTERONE, ADULT MALE, LUTEINIZING HORMONE, FOLLICLE STIMULATING HORMONE, PROLACTIN, T4 FREE/FREE THYROXINE, CORTISOL, SERUM, INSULIN LIK GR FAC I Return to office: 3 months MD vidya Flores documented in this encounterSelect Medical [facility], [place]07-31-2024 Telephone encounter Note * Telephone Encounter - Disha Salgado - 05/08/2024 2:[address] Elizabeth Borjas is referring CLARICE to Dr. Starr for EBUS. Thank you! [facility] [place]07-31-2024 Miscellaneous Notes* Telephone Encounter - ArauzDisha Salamanca - 05/08/2024 2:[address] Elizabeth Borjas is referring CLARICE to Dr. Starr for EBUS. Thank you! documented in this encounterSelect Medical [facility], [place]07-31-2024 History of Present illness Narrative* Elizabeth Borjas MD - 05/08/2024 1:44 PM EDT Images from the original note were not included. Racic PATIENT NAME: Caitlin Elmore [facility] NO.: [id number] ATTENDING PHYSICIAN: Elizabeth Borjas MD DATE OF [...] 01/06/2023 and last dose of chemo 12/21/2022 (Total Hoopa dose= 200 mg/m2) Recurrence in the Lung [...] Range Status 05/08/2024 7.5 % Final Abs [place] Date Value Ref Range Status 05/08/2024 0.53 [...] -HPV-associated squamous cell carcinoma (see comment). KRAS p.Sbm29Sae NM_[id number]:c.35G>A 51.2% VAF, Depth 4267x, Ex2 PIK3CA p.Spw039Ogr NM_[id number]:c.1633G>A 21.7% VAF, Depth 5015x, Ex10 PDL-1 [...] therapy completed 01/06/2023 and received a total of200 mg/m2 of nanwalek as well. PET with response 04/2023. CT [...] 01/02/2024. His CT with the same 2 nodulesgrowing and case discussed at TB. Plan for EBUS and if hilar node is negative consider SBRT to the 2 pulmonary lesions 2. PET positive in the prostate and he follows urology 3. CRI- Stable See back in 6 weeks and in the meantime plan for EBUS and if hilar node negative SBRT, refer to at [facility] as discussed in the TB Thank you for the kind referral. If there are any questions and or concerns please do not hesitate to contact me at [phone]. Elizabeth Borjas MD Hematology/Medical Oncology [facility] spent a total of 30 minutes on the date of the service which included preparing to see the patient, [id number] patient care, completing clinical documentation, obtaining and/or reviewing separately obtained history, performing a medically appropriate examination, counseling and educating the pat ient/family/caregiver, and ordering medications, tests, or procedures. CC: Julian Burton MD documented in this encounterSelect Medical [facility] [place]07-26-2024 History of Present illness Narrative* Julia Braswell RN - 05/03/2024 7:45 AM EDT Radiology Service Progress Note DATE OF SERVICE: May 03, 2024 TIME: 7:43 AM PATIENT WEIGHT: 208LBS PATIENT IDENTITY VERIFICATION COMPLETED USING TWO (2) STANDARD IDENTIFIERS: Name and Date of confirmed by patient verbally. FALL SCREENING: Has the patient had 2 falls in the last year or 1 fall with injury or currently using an Ambulatory Assistive Device (Walker, Cane, Wheelchair, Crutches, etc.)? No PATIENT GENDER DATA: Male ALLERGIES: Reviewed and unchanged CONTRAST ALLERGY: No EXAM: CT -CONTRAST INDUCED NEPHROPATHY RISK FACTORS: Patient age > 60 years CREATININE: Creatinine Date Value Ref Range Status 03/26/2024 1.64 (H) 0.73 - 1.22 mg/dL Final 02/13/2024 1.26 (H) 0.73 - 1.22 mg/dL Final 01/02/2024 1.39 (H) 0.73 - 1.22 mg/dL Final Estimated Glomerular Filtration Rate Date Value Ref Range Status 03/26/2024 48 (L) >=60 mL/min/1.73m Final Comment: Estimated Glomerular Filtration Rate (eGFR) is calculated using the 2020 CKD-EPI creatinine equation. This equation utilizes serum creatinine, sex, and age as parameters. The creatinine assay has traceable calibration to isotope dilution- mass spectrometry. Refer to KDIGO guidelines for clinical interpretation. In patients with unstable renal function, e.g. those with acute kidney injury, the eGFRmay not accurately reflect actual GFR. P.O.C.T. RESULTS: POC done: Yes, See Lab Tab May 03, 2024 TREATMENT: N/A IV SITE: Ambulatory: A peripheral IV was started in the Right antecubital site with a Angio cath: 20 gauge. IV SITE APPEARANCE: Clean,Dry and Intact SIGNATURE: Julia Braswell RN PATIENT NAME: Caitlin Elmore DATE: May 03, 2024 TIME: 7:43 AM * Kayy Kwon RT(R) - 05/03/2024 7:45 AM EDT Radiology Service Progress Note PATIENT NAME: Caitlin Elmore DATE OF SERVICE: May 03, 2024 TIME: 7:36 AM PATIENT IDENTITY VERIFICATION COMPLETED USING TWO (2) IDENTIFIERS: Name and Date of confirmedby patient verbally. FALL SCREENING: Has the patient had 2 falls in the last year or 1 fall with injury or currently using an Ambulatory Assistive Device (Walker, Cane, Wheelchair, Crutches, etc.)? No PATIENT GENDER DATA: Male PATIENT RELEVANT IMPLANT DATA REVIEWED: Not Applicable PATIENT PRESENTS WITH 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 OR ATTACHED PRESIDENT & CEO: No RADIOLOGY DEPARTMENT: CT; Exam(s) Completed: Chest Abdomen Pelvis PERIPHERAL IV DATA: Site assessment: Clean,Dry and Intact, Site disposition Discontinued SIGNED BY: RT Ramila(R) May 03, 2024 7:36 AM documented in this encounterSelect Medical [facility], [place]06-20-2024 Telephone encounter Note * Telephone Encounter - Gabriella Mason RN - 03/28/2024 1:49 PM EDT Tiff- I see you have been working on this with [facility] patient. Wanted to keep you in the loop. I will also forward to front end java developer to schedule. PSS: Can we now refer him to [facility] endocrinology? Gabriella Mason RN [facility] [place]06-20-2024 Miscellaneous Notes* Telephone Encounter - Gabriella Mason RN - 03/28/2024 1:49 PM EDT Tiff- I see you have been working on this with [facility] patient. Wanted to keep you in the loop. I will also forward to front end java developer to schedule. PSS: Can we now refer him to [facility] endocrinology? Gabriella Mason RN documented in this encounterSelect Medical [facility], [place]06-18-2024 History of Present illness Narrative* Lorena Scott RN - 03/26/2024 2:14 PM EDT GINETTE Mays made aware of increased BUN/biophysics scientist. 500 ml NS IV orders given. Lorena Scott, RN documented in this encounterSelect Medical [facility], [place]06-18-2024 Nurse Note* Dorys Matt MA - 03/26/2024 1:35 PM EDT Patient is getting completely exhausted when he works x3-4 weeks. Patient is getting headaches in back of head has happened 3-4x it is a sharp pain lasting for about 5 seconds. Dorys Dutton MA [facility] [place]06-18-2024 Nurse Note* Dorys Dutton MA - 03/26/2024 1:35 PM EDT Patient is getting completely exhausted when he works x3-4 weeks. Patient is getting headaches in back of head has happened 3-4x it is a sharp pain lasting for about 5 seconds. Dorys Dutton MA documented in this encounterSelect Medical [facility], [place]06-18-2024 History of Present illness Narrative* Tremaine Gomez PA-C - 03/26/2024 1:29 PM EDT Images from the original note were not included. Racic PATIENT NAME: [facility] NO.: [id number] ATTENDING PHYSICIAN: Elizabeth Borjas MD DATE OF [...] 01/06/2023 and last dose of chemo 12/21/2022 (Total Hoopa dose= 200 mg/m2). Recurrence in the Lung [...] take a nap. He does not feel exhaustedwhen he is at home doing regular activities. [...] Range Status 03/26/2024 10.1 % Final Abs [place] Date Value Ref Range Status 03/26/2024 0.78 [...] -HPV-associated squamous cell carcinoma (see comment). KRAS p.Wlw34Kui NM_[id number]:c.35G>A 51.2% VAF, Depth 4267x, Ex2 PIK3CA p.[id number] NM_006218.2:c.1633G>A 21.7% VAF, Depth 5015x, Ex10 PDL-1 [...] therapy completed 01/06/2023 and received a total of200 mg/m2 of nanwalek as well. PET with response 04/2023. 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 PET reviewed withj progression of saul disease. Insufficient tumor for PDL-1 and started Carbo/Taxol and Pembro 09/2023. Post response tocycle 3 and completed 4 cycles of therapy. [...] and will recheck 5. Headaches--MRI brain ordered Tremaine Gomez PA-C CC: Julian Burton MD I spent a total of 31 minutes on the date of the service which included preparing to see the patient, xqqh-yr-thqt patient care, completing clinical documentation, performing a medically appropriate examination, counseling and educating the patient/family/caregiver, ordering medications, tests, or p rocedures, independently interpreting results (not separately reported), and communicating results to the patient/family/caregiver. documented in this encounterSelect Medical [facility], [place]06-04-2024 Telephone encounter Note * Telephone Encounter - Dorys Dutton MA - 03/12/2024 12:51 PM EDT Patient has an appt on 03/26/24. Would you like labs, if so place orders. Dorys Dutton MA [facility] [place]06-04-2024 Miscellaneous Notes* Telephone Encounter - Dorys Matt MA - 03/12/2024 12:51 PM EDT Patient has an appt on 03/26/24. Would you like labs, if so place orders. Dorys Dutton MA documented in this encounterSelect Medical [facility], [place]03-26-2024 History of Present illness Narrative* Whitney Hallman APRN.FINE ARTS CHAIR - 01/02/2024 9:29 AM EDT Images from the original note were not included. Antonio PATIENT NAME: Caitlin Elmore [facility] NO.: [id number] ATTENDING PHYSICIAN: Elizabeth Borjas MD DATE OF SERVICE: January 02, 2024 Some of the elements of this note have been copied from my previous progress note dated . All the information has been reviewed carefully. Dear . No referring provider defined for this encounter. Here is an update on a follow up visit on male Caitlin Elmore at the clinic December 12, 2023. Diagnosis: HPV positive BOT SCC. Treatment History: Concurrent Cisplatin and XRT 11/21/2021- XRTY completed 01/06/2023 and last dose of chemo 12/21/2022 (Total Hoopa dose= 200 mg/m2). Recurrence in the Lung Biopsy proven 08/2023: PDL-1 insufficient and KRAS G12A, PIK3CA ( Targeted Oncology only due to sample). Carbo/Taxol ad Pembro 09/26/2023-12/11/2023 ( Cycle 4) With response. Pembro monotherapy. HPI: Caitlin Elmore is a 58 year old year old male here for follow up and continued treatment. He develops acough during treatment. He denies any skin rashes. No nausea, vomiting, diarrhea or abdominal pain.He denies cough, shortness of breath and other [...] Range Status 01/02/2024 15.8 % Final Abs [place] Date Value Ref Range Status 01/02/2024 0.71 [...] -HPV-associated squamous cell carcinoma (see comment). KRAS p.Rfp31Kwa NM_033360.2:c.35G>A 51.2% VAF, Depth 4267x, Ex2 PIK3CA p.Omw596Wqi NM_006218.2:c.1633G>A 21.7% VAF, Depth 5015x, Ex10 PDL-1 [...] therapy completed 01/06/2023 and received a total of200 mg/m2 of nanwalek as well. PET with response 04/2023. CT [...] concerns please do not hesitate to contact [facility] [phone]. Whitney Hallman APRN.FINE ARTS CHAIR Hematology/Medical Oncology [facility] CC: Julian Burton MD I spent a total of 30 minutes on the date of the service which included preparing to see the patient, pjah-xm-tqqz patient care, completing clinical documentation, obtaining and/or reviewing separately obtained history, performing a medically appropriate examination, counseling and educating the pat ient/family/caregiver, ordering medications, tests, or procedures, independently interpreting results (not separately reported), and communicating results to the patient/family/caregiver. documented in this encounterSelect Medical [facility] [place]03-06-2024 Miscellaneous Notes* Telephone Encounter - Chiqui Modi RN - 12/13/2023 8:18 AM EST Pt notified and would like the script to go to [facility] in [place]. Please sign pending script Chiqui Modi RN * Telephone Encounter - Chiqui Modi RN - 12/13/2023 8:12 AM EST ----- Message from Elizabeth Borjas MD sent at 12/12/2023 8:11 PM EST ----- Please have patientstart synthroid at 50 mcg/day documented in this encounterSelect Medical [facility] [place]03-05-2024 History of Present illness Narrative* Elizabeth Borjas MD - 12/12/2023 10:01 AM EST Images from the original note were not included. Antonio PATIENT NAME: Caitlin Elmore CLINIC NO.: [id number] ATTENDING PHYSICIAN: Elizabeth Borjas MD DATE OF [...] 01/06/2023 and last dose of chemo 12/21/2022 (Total Hoopa dose= 200 mg/m2) Recurrence in the Lung [...] Range Status 12/12/2023 10.7 % Final Abs [place] Date Value Ref Range Status 12/12/2023 0.50 [...] -HPV-associated squamous cell carcinoma (see comment). KRAS p.Uqp55Sky NM_033360.2:c.35G>A 51.2% VAF, Depth 4267x, Ex2 PIK3CA p.Hlk681Jpf NM_006218.2:c.1633G>A 21.7% VAF, Depth 5015x, Ex10 PDL-1 [...] therapy completed 01/06/2023 and received a total of200 mg/m2 of nanwalek as well. PET with response 04/2023. CT [...] do not hesitate to contact me at [phone]. Elizabeth Borjas MD Hematology/Medical Oncology [facility] spent a total of 30 minutes on the date of the service which included preparing to see the patient, xrez-ki-wyxd patient care, completing clinical documentation, obtaining and/or reviewing separately obtained history, performing a medically appropriate examination, counseling and educating the pat ient/family/caregiver, and ordering medications, tests, or procedures. CC: Julian Burton MD documented in this encounterSelect Medical [facility] [place]03-01-2024 History of Present illness Narrative* Kayy Kwon RT(R) - 12/08/2023 7:45 AM EST Radiology Service Progress Note PATIENT NAME: Caitlin Elmore DATE OF SERVICE: December 08, 2023 TIME: 8:27 AM PATIENT IDENTITY VERIFICATION COMPLETED USING TWO (2) IDENTIFIERS: Name and Date of confirmedby patient verbally. FALL SCREENING: Has the patient had 2 falls in the last year or 1 fall with injury or currently using an Ambulatory Assistive Device (Walker, Cane, Wheelchair, Crutches, etc.)? No PATIENT GENDER DATA: Male PATIENT RELEVANT IMPLANT DATA REVIEWED: Not Applicable PATIENT PRESENTS WITH 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 OR ATTACHED PRESIDENT & CEO: No RADIOLOGY DEPARTMENT: CT; Exam(s) Completed: Chest Abdomen Pelvis With IV and Oral contrast PERIPHERAL IV DATA: Site assessment: Clean,Dry and Intact, Site disposition Discontinued SIGNED BY: RT Ramila(R) December 08, 2023 8:27 AM * Julia Braswell RN - 12/08/2023 7:45 AM EST Radiology Service Progress Note DATE OF SERVICE: December 08, 2023 TIME: 8:34 AM PATIENT WEIGHT: 197LBS PATIENT IDENTITY VERIFICATION COMPLETED USING TWO (2) STANDARD IDENTIFIERS: Name and Date of confirmed by patient verbally. FALL SCREENING: Has the patient had 2 falls in the last year or 1 fall with injury or currently using an Ambulatory Assistive Device (Walker, Cane, Wheelchair, Crutches, etc.)? No PATIENT GENDER DATA: Male ALLERGIES: Reviewed and unchanged CONTRAST ALLERGY: No EXAM: CT -CONTRAST INDUCED NEPHROPATHY RISK FACTORS: Not applicable CREATININE: Creatinine Date Value Ref Range Status 12/08/2023 1.31 (H) 0.73 - 1.22 mg/dL Final 11/14/2023 1.44 (H) 0.73 - 1.22 mg/dL Final 10/20/2023 1.35 (H) 0.73 - 1.22 mg/dL Final Estimated Glomerular Filtration Rate Date Value Ref Range Status 12/08/2023 63 >=60 mL/min/1.73m Final Comment: Estimated Glomerular Filtration Rate (eGFR) is calculated using the 2020 CKD-EPI creatinine equation. This equation utilizes serum creatinine, sex, and age as parameters. The creatinine assay has traceable calibration to isotope dilution- mass spectrometry. Refer to KDIGO guidelines for clinical interpretation. In patients with unstable renal function, e.g. those with acute kidney injury, the eGFRmay not accurately reflect actual GFR. P.O.C.T. RESULTS: POC done: Yes, See Lab Tab December 08, 2023 TREATMENT: N/A IV SITE: Ambulatory: A peripheral IV was started in the Right antecubital site with a Angio cath: 20 gauge. IV SITE APPEARANCE: Clean,Dry and Intact SIGNATURE: Julia Braswell RN PATIENT NAME: Caitlin Elmore DATE: December 08, 2023 TIME: 8:34 AM documented in this encounterSelect Medical [facility] [place]02-09-2024 History of Present illness Narrative* Enoch Forbes MD - 11/17/2023 1:30 PM EST Subjective Patient ID: Олег Elmore is a [...] in neck Nocturia Personal history of irradiation [id number] Tongue cancer (CMS/HCC) Past Surgical History: Procedure Laterality Date ADENOIDECTOMY 1974 LARYNGOSCOPY 10/18/2022 w/ biopsy, Anu MASTOID SURGERY TONSILLECTOMY 1972 TYMPANOSTOMY TUBE PLACEMENT [...] Monthly appts till 10/2024 documented in this encounterCrossroads Regional Medical [id number] Telephone encounter Note* Telephone Encounter - Julia Braswell RN - 11/15/2023 2:16 PM EST Please sign pended Cre for upcoming CT-pt on nephrotoxic chemo. Thank You! Julia Braswell RN [facility] [place]02-07-2024 Miscellaneous Notes* Telephone Encounter - Julia Braswell RN - 11/15/2023 2:16 PM EST Please sign pended Cre for upcoming CT-pt on nephrotoxic chemo. Thank You! Julia Braswell RN documented in this encounterSelect Medical [facility] [place]02-06-2024 History of Present illness Narrative* Elizabeth Borjas MD - 11/14/2023 9:26 AM EST Images from the original note were not included. [facility] PATIENT NAME: Caitlin Elmore [facility] NO.: [id number] ATTENDING PHYSICIAN: Elizabeht Borjas MD DATE OF SERVICE: November 14, 2023 Some of the elements of this note have been copied from my previous progress note dated 09/26/2023.All the information has been reviewed carefully. Dear No referring provider defined for this encounter. here is an update on a follow up visit on male Caitlin Elmore at the clinic November 14, 2023 Diagnosis: HPV positive BOT SCC Treatment History: Concurrent Cisplatin and XRT 11/21/2021- XRTY completed 01/06/2023 and last dose of chemo 12/21/2022 (Total Hoopa dose= 200 mg/m2) Recurrence in the Lung [...] any neuropathy as well. Going to a cruise next week, PAST MEDICAL HISTORY Diagnosis Date [...] Range Status 11/14/2023 12.3 % Final Abs [place] Date Value Ref Range Status 11/14/2023 0.63 [...] -HPV-associated squamous cell carcinoma (see comment). KRAS p.[id number] NM_[id number]:c.35G>A 51.2% VAF, Depth 4267x, Ex2 PIK3CA p.Eld266Ijh NM_006218.2:c.1633G>A 21.7% VAF, Depth 5015x, Ex10 PDL-1 [...] therapy completed 01/06/2023 and received a total of200 mg/m2 of nanwalek as well. PET with response 04/2023. CT [...] do not hesitate to contact me at [phone]. Elizabeth Borjas MD Hematology/Medical Oncology [facility] spent a total of 30 minutes on the date of the service which included preparing to see the patient, tioi-wk-bnma patient care, completing clinical documentation, obtaining and/or reviewing separately obtained history, performing a medically appropriate examination, counseling and educating the pat ient/family/caregiver, and ordering medications, tests, or procedures. CC: Julian Burton MD documented in this encounterSelect [facility] [place] [facility] [place] History of Present illness Narrative* Chiqui Modi RN - 09/26/2023 9:00 PM EST ONCOLOGY PATIENT EDUCATION NOTE TOPIC: Chemotherapy Immunotherapy, [...] was provided/discussed including but not limited to: abdominaldiscomfort, anemia, appetite changes, arthralgia, bowel habit changes, chest pain, diet, electrolyte disturbances, fatigue, fluid retention, hair loss, headache, hypersensitivity reaction, infection,kidney toxicity, myalgia, nausea/vomitting, neutropenia, peripheral neuropathy, rash, risk for DVT,shortness of breath, skin changes, taste changes, thrombocytopenia, [...] patient, which included the importance of reporting anyfever of 100.4F (38.0C) or greater to the healthcare team as noted on the provided wallet card and/or magnet. YES - Pt has antiemetics at home if needed -Pt has My Journey binder at home from previous education Time Spent: 20 minutes REFERRAL (RECOMMENDATION): N/A Chiqui Modi RN documented in this encounterSelect Medical [place] [facility], [place]-[facility] History of Present illness Narrative* Elizabeth Borjas MD - 09/26/2023 9:48 AM EST Images from the original note were not included. Racic PATIENT NAME: Caitlin Elmore [facility] NO.: [id number] ATTENDING PHYSICIAN: Elizabeth Borjas MD DATE OF SERVICE: September 26, 2023 Some of the elements of this note have been copied from my previous progress note dated 09/06/2023.All the information has been reviewed carefully. Dear Dr. Carrillo referring provider defined for this encounter. here is an update on a follow up visit on male Caitlin Elmore at the clinic September 26, 2023 Diagnosis: HPV positive BOT SCC Treatment History: Concurrent Cisplatin and XRT 11/21/2021- XRTY completed 01/06/2023 and last dose of chemo 12/21/2022 (Total Hoopa dose= 200 mg/m2) Recurrence in the Lung [...] Range Status 09/26/2023 10.3 % Final Abs [place] Date Value Ref Range Status 09/26/2023 0.53 [...] -HPV-associated squamous cell carcinoma (see comment). KRAS p.Zoi12Oow [id number].[id number]>A 51.2% VAF, Depth 4267x, Ex2 PIK3CA p.Rez058Ous [id number]:c.1633G>A 21.7% VAF, Depth 5015x, Ex10 PDL-1 [...] therapy completed 01/06/2023 and received a total of200 mg/m2 of nanwalek as well. PET with response 04/2023. CT [...] do not hesitate to contact me at [phone]. Elizabeth Borjas MD Hematology/Medical Oncology [facility] spent a total of 30 minutes on the date of the service which included preparing to see the patient, utkh-gt-[id number] patient care, completing clinical documentation, obtaining and/or reviewing separately obtained history, performing a medically appropriate examination, counseling and educating the pat ient/family/caregiver, and ordering medications, tests, or procedures. CC: Julian Burton MD documented in this encounterSelect Medical [place] [facility] [place]-15-2023 History of Present illness Narrative* Julia Braswell RN - 09/22/2023 9:00 AM EST Radiology Service Progress Note DATE OF SERVICE: September 22, 2023 TIME: 9:20 AM PATIENT IDENTITY VERIFICATION COMPLETED USING TWO (2) STANDARD IDENTIFIERS: Name and Date of confirmed by patient verbally. FALL SCREENING: Has the patient had 2 falls in the last year or 1 fall with injury or currently using an Ambulatory Assistive Device (Walker, Cane, Wheelchair, Crutches, etc.)? No PATIENT GENDER DATA: Male EXAM: CT -CONTRAST INDUCED NEPHROPATHY RISK FACTORS: Not applicable CREATININE: Creatinine Date Value Ref Range Status 07/25/2023 1.66 (H) 0.73 - 1.22 mg/dL Final 04/14/2023 1.25 (H) 0.73 - 1.22 mg/dL Final 01/20/2023 1.29 (H) 0.73 - 1.22 mg/dL Final Estimated Glomerular Filtration Rate Date Value Ref Range Status 07/25/2023 48 (L) >=60 mL/min/1.73m Final Comment: Estimated Glomerular Filtration Rate (eGFR) is calculated using the 2020 CKD-EPI creatinine equation. This equation utilizes serum creatinine, sex, and age as parameters. The creatinine assay has traceable calibration to isotope dilution- mass spectrometry. Refer to KDIGO guidelines for clinical interpretation. In patients with unstable renal function, e.g. those with acute kidney injury, the eGFRmay not accurately reflect actual GFR. P.O.C.T. RESULTS: N/A September 22, 2023 TREATMENT: N/A IV SITE: Ambulatory: A peripheral IV was started in the Left antecubital site with a Angio cath: 22gauge. IV SITE APPEARANCE: Clean,Dry and Intact SIGNATURE: Julia Braswell RN PATIENT NAME: Caitlin Elmore DATE: September 22, 2023 TIME: 9:20 AM * Kayy Kwon RT(R) - 09/22/2023 9:00 AM EST RADIOLOGY SERVICE PROGRESS NOTE SERVICE DATE: 09/22/2023 SERVICE TIME: 9:27 AM PATIENT IDENTITY VERIFICATION COMPLETED USING TWO (2) STANDARD IDENTIFIERS: Name and Date of confirmed by patient verbally POST EXAM PIV STATUS: Discontinued PROCEDURE TYPE: NM INJECT: PET/CT BODY SCAN. 11.0 mCi F18 FDG. No other medications given.. ADMINISTRATION TIME: 920 PATIENT DISCHARGED TO: Ambulatory patient, left [place] department area. A Diagnostic radioactive procedure has taken place, with no further precautions necessary other than routine body substance precautions. More information regarding radiation safety can be found usingthis link: [email or web address] SIGNATURE: RT Ramila(Deidra) PATIENT NAME: Caitlin Elmore DATE: September 22, 2023 TIME: 9:27 AM PAGER/CONTACT #: documented in this encounterSelect Medical [place] [facility] [place]-14-2023 Miscellaneous Notes* Telephone Encounter - Angela Ortega - 09/21/2023 1:40 PM EST Pt is a New Start for 09/26. No labs are ordered. Angela Ortega documented in this encounterSelect Medical [place] [facility], [place]12-06-2023 Miscellaneous Notes* Telephone Encounter - Ellyn Mullins - 09/13/2023 8:47 AM EST Patient has been scheduled and will receive these appointments on his MyChart. Thanks! Ellyn Mullins * Telephone Encounter - Poly Doran RN - 09/13/2023 8:16 AM EST Elizabeth Borjas MD I spoke to them tonight and will need education for chemo and start chemo right after his PET PSS: Please call pt to schedule per Amish note above. Thank you, Poly Doran, RN documented in this encounterSelect Medical [place] [facility], [place]11-29-2023 History of Present illness Narrative* Elizabeth Borjas MD - 09/06/2023 3:01 PM EST Images from the original note were not included. Racic PATIENT NAME: Caitlin Elmore [facility] NO.: [id number] ATTENDING PHYSICIAN: Elizabeth Borjas MD DATE OF SERVICE: September 06, 2023 Some of the elements of this note have been copied from my previous progress note dated 07/25/2023.All the information has been reviewed carefully. Dear Dr. Carrillo referring provider defined for this encounter. here is an update on a follow up visit on male Caitlin Elmore at the clinic September 06, 2023 Diagnosis: HPV positive BOT SCC Treatment History: Concurrent Cisplatin and XRT 11/21/2021- XRTY completed 01/06/2023 and last dose of chemo 12/21/2022 (Total Hoopa dose= 200 mg/m2) HPI: Caitlin Elmore is [...] Range Status 07/25/2023 7.7 % Final Abs [place] Date Value Ref Range Status 07/25/2023 0.62 [...] therapy completed 01/06/2023 and received a total of200 mg/m2 of nanwalek as well. PET with response 04/2023. CTY Chest 07/2023 with pulmonary nodules and biopsy c/w metastatic disease oropharyngeal cancer. Will arrange for a PET scan and NGS and PDL-1has been ordered as well and will discuss plan in TB as well. 2. PET positive in the prostate and he follows urology 3. CRI- Stable Will arrange PET and discuss with TB and await molecular studies Thank you for the kind referral. If there are any questions and or concerns please do not hesitate to contact me at [phone]. Elizabeth Borjas MD Hematology/Medical Oncology [facility] spent a total of 30 minutes on the date of the service which included preparing to see the patient, bync-qz-oyvy patient care, completing clinical documentation, obtaining and/or reviewing separately obtained history, performing a medically appropriate examination, counseling and educating the pat ient/family/caregiver, and ordering medications, tests, or procedures. CC: Julian Burton MD documented in this encounterSelect Medical [place] [facility], [place]11-22-2023 Nurse Note* Dinesh Velez RN - 08/30/2023 11:29 AM EST POST OP LEARNING RESPONSE INSTRUCTION PROVIDED TO: Patient and family member METHOD OF INSTRUCTION: Individual instruction Written instruction - handouts PATIENT / FAMILY RESPONSE: Verbalizes understanding of: POST-PROCEDURE INSTRUCTIONS-Correct actionsto take to reduce post procedure complications FOLLOW-UP PLAN: Patient instructed to call with any further issues SUPPLEMENTAL MATERIAL: None REFERRAL (RECOMMENDATION): None Electronically Signed By: CHRIS Aguilar In department: Bronchoscopy * Holly Delacruz RN - 08/22/2023 3:06 PM EST AMBULATORY PATIENT EDUCATION TOPIC: Bronchoscopy Pre-procedure instructions [...] FAMILY RESPONSE: Verbalizes understanding of: POST-PROCEDURE INSTRUCTIONS-Correct actionsto take to reduce post procedure complications PRE-PROCEDURE INSTRUCTIONS-Correct action to take to follow pre-procedure instructions FOLLOW-UP PLAN: Complete - No need for follow-up Patient instructed to call with any further issues SUPPLEMENTAL MATERIAL: None REFERRAL (RECOMMENDATION): None documented in this encounterSelect Medical [place] [facility], [place]-16-2023 History of Present illness Narrative* Carissa Alvarez MD - 08/24/2023 9:55 AM EST Images from the original note were not included. INTERVENTIONAL PULMONARY MEDICINE CONSULTATION PLEASE DO NOT REMOVE FROM THE CHART OR MODIFY PRINTED COPY Patient Name: Caitlin Elmore PRIMARY CARE PHYSICIAN: Julian Burton MD REFERRING PHYSICIAN: Elizabeth Borjas MD [...] New <1 cm RUL nodules below PET res olution. + focal uptake in prostate. 07/18/23 CT [...] change in bowel habits GENITOURINARY: Not reviewed FRUIT SORTER: NA MUSCULOSKELETAL: Negative for joint pain or swelling, back pain or muscle pain. NEUROLOGIC:Negative for focal numbness or weakness, headaches and dizziness or syncope. SKIN:Negative for lesions, rash, and itching. PSYCHIATRIC: Negative for sleep disturbance, mood disorder and recent psychosocial stressors. HEMATOLOGIC/LYMPHATIC/IMMUNOLOGIC:Negative for prolonged bleeding, bruising easily or swollen [...] plan. Patient seen and discussed with Dr. Alvarez. Electronically Signed: Avel De Anda MD August 24, 2023 9:55 AM STAFF: Patient seen and examined with IP fellow. Agree with fellows note as outlined above. Patienthas a history of tongue cancer with multiple lung nodules which are probably secondary to metastatic disease. Agree with proceeding with a diagnostic bronchoscopy and sampling of the lung nodules. Heunderstands the risks and benefits and is agreeable with proceeding at this time. Carissa Alvarez MD September 09, 2023 12:59 PM documented in this encounterSelect Medical [place] [facility] [place]11-16-2023 History of Present illness Narrative* Nikko Douglas, RT(R) - 08/24/2023 9:15 AM EST Radiology Service Progress Note PATIENT NAME: Caitlin Elmore DATE OF SERVICE: August 24, 2023 TIME: 9:03 AM PATIENT IDENTITY VERIFICATION COMPLETED USING TWO (2) IDENTIFIERS: Name and Date of confirmedby patient verbally and Name and Date of [...] 24, 2023 9:03 AM documented in this encounterSelect Medical [place] [facility], [place]11-10-2023 Miscellaneous Notes* Telephone Encounter - Alondra Pang - 08/18/2023 3:18 PM EST Admin took a call from Clarissa, spouse of pt, checking in on bronchoscopy scheduling. * Telephone Encounter - Ellyn Mullins - 08/15/2023 10:59 AM EST Patient sent MC message again regarding scheduling. Ellyn Mullins * Telephone Encounter - Ellyn Mullins - 08/14/2023 8:29 AM EST Good Morning, This patient was cleared to schedule on 08/04. Can you please provide an update? Thank you! Ellyn Mullins documented in this encounterSelect Medical [place] [facility], [place]11-07-2023 Miscellaneous Notes* Telephone Encounter - Ellyn Mullins - 08/15/2023 1:08 PM EST Images from the original note were not included. Per note from other encounter: Elke Alexander MD You; Pulm Bronch Scheduling Pool; Nay Maguire RN 16 minutes ago (12:49 PM) Scottie, thanks for following up. I think my team is working on it. To bronch scheduling team: This may be a somewhat challenging. Please make sure to get preop SuperDCT chest a few days before scheduled bronch. Please inform the person who s doing the bronch (when he is on schedule) to map out to any potentially accessible nodule. Thanks. See Ra * Telephone Encounter - Ellyn Mullins - 08/14/2023 8:14 AM EST Patient is still not scheduled for bronch. Sending message to bronch pool for update. Ellyn Mullins * Telephone Encounter - Elizabeth Borjas MD - 08/09/2023 1:54 PM EDT Can we schedule him to see me a wek after his bronch please. Thanks * Telephone Encounter - Elizabeth Borjas MD - 08/09/2023 1:46 PM EDT Thanks * Telephone Encounter - Chiqui Modi RN - 08/09/2023 1:41 PM EDT Pt has been cleared for bronch through insurance and they will be reaching out to pt to schedule consult. Chiqui Modi RN * Telephone Encounter - Elizabeth Borjas MD - 08/03/2023 4:50 PM EDT I have requested a Bronch and please keep an eye on it documented in this encounterSelect Medical [place] [facility], [place]-26-2023 History of Present illness Narrative* Elke Alexander MD - 08/03/2023 4:55 PM EDT Bronchoscopy Request: Please schedule patient for the following: Outpatient Visit: New Consult with Staff: Patient Choice (Virtual or In-Person) and IP Fellow Clinic (if available): Patient Choice (Virtual or In-Person) Bronchoscopy Procedures: Robotic Bronchoscopy Auris (CLARICE/SS/MM/FA) Robotic Bronchoscopy ION (TG/CG/LL/AM/MA/SL/SS/CLARICE/SG/BB/FA) Diagnosis/Reason for Bronchoscopy: Lung nodule sampling only Timing: Next available Time Allotment/Tier: TIER 2: 2 HOUR Physician Performing Bronchoscopy:Dr. Camarena, Dr. Loredo, Dr. Reyes, Dr. Starr, Dr. Guzmán, Lefty Kaiser, Dr. Jarrett, Dr. Howe , Dr. Alexander, Dr. Vital, and Dr. 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 Discussed in tumor board where we agreed to get a superD CT, map it on the navigation system and see which one we can get to. Consultation request/referral by: Elizabeth Borjas MD Reviewed by: MD Elke Chambers MD August 03, 2023 4:55 PM [...] Neut (Segs + Bands) 5.70 07/25/2023 Abs [place] 0.62 07/25/2023 Abs Eosin 0.30 07/25/2023 Abs [...] - 1.22 mg/dL Final documented in this encounterSelect Medical [place] [facility] [place]-17-2023 History of Present illness Narrative* Elizabeth Borjas MD - 07/25/2023 2:55 PM EDT Images from the original note were not included. PATIENT NAME: Caitlin Elmore [facility] NO.: [id number] ATTENDING PHYSICIAN: Elizabeth Borjas MD DATE OF [...] 01/06/2023 and last dose of chemo 12/21/2022 (Total Hoopa dose= 200 mg/m2) HPI: Caitlin Elmore is [...] Range Status 07/25/2023 7.7 % Final Abs [place] Date Value Ref Range Status 07/25/2023 0.62 [...] therapy completed 01/06/2023 and received a total of200 mg/m2 of nanwalek as well. PET with response 04/2023 2. PET positive in the prostate and he follows urology 3. CRI- Stable 4. Pulmonary nodule-growth on CT 07/2023, present at [facility] next week and assess next best plan, difficult to biopsy and we may need to repeat the imaging studies but the nodule are concverning Await TB recs and will determine follow up Thank you for the kind referral. If there are any questions and or concerns please do not hesitate to contact me at [phone]. Elizabeth Borjas MD Hematology/Medical Oncology [facility] spent a total of 30 minutes on the date of the service which included preparing to see the patient, basi-fv-mask patient care, completing clinical documentation, obtaining and/or reviewing separately obtained history, performing a medically appropriate examination, counseling and educating the pat ient/family/caregiver, and ordering medications, tests, or procedures. CC: Juilan Burton MD documented in this encounterSelect Medical [place] [facility] [place]10-10-2023 History of Present illness Narrative* Kayy Kwon, RT(R) - 07/18/2023 1:15 PM EDT Radiology Service Progress Note PATIENT NAME: Caitlin Elmore DATE OF SERVICE: July 18, 2023 TIME: 1:34 PM PATIENT IDENTITY VERIFICATION COMPLETED USING TWO (2) IDENTIFIERS: Name and Date of confirmedby patient verbally. FALL SCREENING: Has the patient had 2 falls in the last year or 1 fall with injury or currently using an Ambulatory Assistive Device (Walker, Cane, Wheelchair, Crutches, etc.)? No PATIENT GENDER DATA: Male PATIENT RELEVANT IMPLANT DATA REVIEWED: Not Applicable RADIOLOGY DEPARTMENT: CT; Exam(s) Completed: Chest PERIPHERAL IV DATA: Not applicable SIGNED BY: RT Ramila(R) July 18, 2023 1:34 PM documented in this encounterSelect Medical [place] [facility], [place]-[facility]23 Hospital Discharge instructions Patient Education 07/07/2023 11:02:41 Prostate Cancer Screening Prostate Cancer Screening Prostate cancer screening is testing that is done to check for the presence of prostate cancer in men. The prostate gland is a walnut-sized gland that is located below the bladder and in front of therectum in males. The function of the prostate is to add fluid to semen during ejaculation. Prostatecancer is one of the most common types of cancer in men. Who should have prostate cancer screening? Screening recommendations vary based on age and other risk factors, as well as between the professional organizations who make the recommendations. In general, screening is recommended if: You are age 50 to 70 and have an average risk for prostate cancer. You should talk with your healthcare provider about your need for screening and [...] diagnosed with prostate cancer. The risk is higherif your family member's cancer occurred at an early age or if you have multiple family members withprostate cancer at an early age. ?Being a [...] is a blood test called the prostate-specific antigen(PSA) test. PSA is a protein that is [...] treatment? Where to find more information The [place] [employer]: www.cancer.org [place] [employer]: www.auanet.org Contact a health care [...] the recommended screening test for prostate cancer, butit has associated risks. Discuss the risks and [...] provider. Document Revised: 03/21/2022 Document Reviewed: 03/21/2022 [employer] Patient Education 2022 [employer]. Follow Up Care 06/08/2023 10:56:53 With:Rafa KELLEY, RENU Ibarra, URO Address: When: Unknown [facility] 08-31-2023 Hospital Discharge instructions Patient Education 06/08/2023 10:40:12 Prostate Cancer Screening Prostate Cancer Screening Prostate cancer screening is testing that is done to check for the presence of prostate cancer in men. The prostate gland is a walnut-sized gland that is located below the bladder and in front of therectum in males. The function of the prostate is to add fluid to semen during ejaculation. Prostatecancer is one of the most common types of cancer in men. Who should have prostate cancer screening? Screening recommendations vary based on age and other risk factors, as well as between the professional organizations who make the recommendations. In general, screening is recommended if: You are age 50 to 70 and have an average risk for prostate cancer. You should talk with your healthcare provider about your need for screening and [...] diagnosed with prostate cancer. The risk is higherif your family member's cancer occurred at an early age or if you have multiple family members withprostate cancer at an early age. ?Being a [...] is a blood test called the prostate-specific antigen(PSA) test. PSA is a protein that is [...] treatment? Where to find more information The [place] [employer]: www.cancer.org [place] [employer]: www.auanet.org Contact a health care [...] the recommended screening test for prostate cancer, butit has associated risks. Discuss the risks and [...] provider. Document Revised: 03/21/2022 Document Reviewed: 03/21/2022 [employer] Patient Education 2022 Preedo. Follow Up Care 05/31/2023 09:50:01 With:Rafa KELLEY, RENU Ibarra, URO Address: When: Unknown [facility] 07-11-2023 History of Present illness Narrative* Nino Ivy MD - 04/18/2023 2:45 PM EDT Radiation Oncology - Follow Up Note PATIENT [...] months for further follow-up. Signed by: Nino Ivy MD cc: Julian Burton [address] [place] [phone] documented in this encounterSelect Medical [place] [facility] [place]-2023 History of Present illness Narrative* Elizabeth Borjas MD - 04/18/2023 2:22 PM EDT Images from the original note were not included. PATIENT NAME: Caitlin Elmore [facility] NO.: [id number] ATTENDING PHYSICIAN: Elizabeth Borjas MD DATE OF [...] 01/06/2023 and last dose of chemo 12/21/2022 (Total Hoopa dose= 200 mg/m2) HPI: Caitlin Elmore is [...] 6' .677 (1.85m) Wt 183 lb 12.8 oz(83.4kg) SpO2 99% BMI 24.47 kg/(m^2). Wt 90.4 [...] Range Status 04/14/2023 9.2 % Final Abs [place] Date Value Ref Range Status 04/14/2023 0.44 [...] therapy completed 01/06/2023 and received a total of200 mg/m2 of nanwalek as well. PET with response 04/2023 2. [...] do not hesitate to contact me at [phone]. Elizabeth Borjas MD Hematology/Medical Oncology [facility] spent a total of 30 minutes on the date of the service which included preparing to see the patient, ulak-ji-hciy patient care, completing clinical documentation, obtaining and/or reviewing separately obtained history, performing a medically appropriate examination, counseling and educating the pat ient/family/caregiver, and ordering medications, tests, or procedures. CC: Julian Burton MD documented in this encounterSelect Medical [place] [facility] [place]07-07-2023 History of Present illness Narrative* Julia Braswell RN - 04/14/2023 8:00 AM EDT Radiology Service Progress Note DATE OF SERVICE: April 14, 2023 TIME: 8:22 AM PATIENT IDENTITY VERIFICATION COMPLETED USING TWO (2) STANDARD IDENTIFIERS: Name and Date of confirmed by patient verbally. FALL SCREENING: Has the patient had 2 falls in the last year or 1 fall with injury or currently using an Ambulatory Assistive Device (Walker, Cane, Wheelchair, Crutches, etc.)? No PATIENT GENDER DATA: Male EXAM: CT -CONTRAST INDUCED NEPHROPATHY RISK FACTORS: Not applicable CREATININE: Creatinine Date Value Ref Range Status 01/20/2023 1.29 (H) 0.73 - 1.22 mg/dL Final 01/13/2023 1.20 0.73 - 1.22 mg/dL Final 01/11/2023 1.38 (H) 0.73 - 1.22 mg/dL Final Estimated Glomerular Filtration Rate Date Value Ref Range Status 01/20/2023 65 >=60 mL/min/1.73m Final Comment: Estimated Glomerular Filtration Rate (eGFR) is calculated using the 2020 CKD-EPI creatinine equation. This equation utilizes serum creatinine, sex, and age as parameters. The creatinine assay has traceable calibration to isotope dilution- mass spectrometry. Refer to KDIGO guidelines for clinical interpretation. In patients with unstable renal function, e.g. those with acute kidney injury, the eGFRmay not accurately reflect actual GFR. P.O.C.T. RESULTS: POC done: Yes, See Lab Tab April 14, 2023 TREATMENT: N/A IV SITE: Ambulatory: A peripheral IV was started in the Left antecubital site with a Angio cath: 22gauge. IV SITE APPEARANCE: Clean,Dry and Intact SIGNATURE: Julia Braswell RN PATIENT NAME: Caitlin Elmore DATE: April 14, 2023 TIME: 8:22 AM * Kayy Kwon RT(R) - 04/14/2023 8:00 AM EDT RADIOLOGY SERVICE PROGRESS NOTE SERVICE DATE: 04/14/2023 SERVICE TIME: 8:32 AM PATIENT IDENTITY VERIFICATION COMPLETED USING TWO (2) STANDARD IDENTIFIERS: Name and Date of confirmed by patient verbally POST EXAM PIV STATUS: Discontinued PROCEDURE TYPE: NM INJECT: PET/CT HEAD, NECK, BODY SCAN. 9.0 mCi F18 FDG. No other medications given.. ADMINISTRATION TIME: 818 PATIENT DISCHARGED TO: Ambulatory patient, left [place] department area. A Diagnostic radioactive procedure has taken place, with no further precautions necessary other than routine body substance precautions. More information regarding radiation safety can be found usingthis link: [email or web address] SIGNATURE: RT Ramila(R) PATIENT NAME: Caitlin Elmore DATE: April 14, 2023 TIME: 8:32 AM PAGER/CONTACT #: documented in this encounter[facility] [place] [facility] [place] History of Present illness Narrative* Nino Ivy MD - 03/02/2023 12:51 PM EDT Radiation Oncology - Follow Up Note PATIENT [...] surveillance with Dr. Forbes. Signed by: Nino Ivy MD cc: Julian Burton [facility] [place] [phone] documented in this encounterSelect Medical [place] [facility], [place]-21-2023 History of Present illness Narrative* Nino Ivy MD - 01/27/2023 8:47 AM EDT Radiation Oncology - Follow Up Note PATIENT [...] better still with mild to moderate dysphagia, moderatealtered taste, oropharyngeal pain is improved. Denies dyspnea. [...] 10 mL by mouth every 6 hours asneeded for pain. Take with stool softener. prochlorperazine [...] PET scan 12 weeks from completion of treatment.Close surveillance with Dr. Forbes. Signed by: Nino Ivy MD cc: Julian Burton [address] [place] [address] [place] [phone] Nino Ivy [address] [place] [address] [place] [id number] documented in this encounterSelect Medical [place] [facility], [place]-14-2023 Miscellaneous Notes* Telephone Encounter - Chiqui Modi RN - 01/20/2023 3:36 PM EDT Pt states he has a urologist appointment in two weeks. Chiqui Modi RN * Telephone Encounter - Tremaine Gomez PA-C - 01/20/2023 1:49 PM EDT Please call patient and advise that now that he is done with his treatment, he should see Urology regarding the abnormal prostate on PET scan and the elevated PSA. Please schedule. Tremaine Gomez PA-C documented in this encounterSelect Medical [place] [facility], [place]04-14-2023 History of Present illness Narrative* Tremaine Gomez PA-C - 01/20/2023 1:30 PM EDT Images from the original note were not included. PATIENT NAME: Caitlin Elmore [facility] NO.: [id number] ATTENDING PHYSICIAN: Elizabeth Borjas MD DATE OF SERVICE: January 20, 2023 (Elements copied from my note dated January 13 2023, have been reviewed and updated where appropriate,and all reflect current assessment and medical decision making during today's encounter, January 20, 2023) CC: Follow up Diagnosis: HPV positive BOT SCC Treatment History: Concurrent Cisplatin and XRT 11/21/2021- XRT completed 01/06/2023 and last dose of chemo 12/21/2022 ( Total Hoopa dose= 200 mg/m2) HPI: Mr. Elmore returns [...] Range Status 01/20/2023 14.5 % Final Abs [place] Date Value Ref Range Status 01/20/2023 0.57 [...] therapy completed 01/06/2023 and received a total of200 mg/m2 of nanwalek as well. 2. PET positive in the prostate area and will get PSA and will address after completion of therapy and will arrange for a referral 3. Arrange for PET scan in 10-12 weeks with a follow up 4. Follow up on patient's CMP from today 5. Anemia-likely chemo induced, monitor for now Tremaine Gomez PA-C CC: Julian Burton MD documented in this encounterSelect Medical [place] [facility], [place]04-07-2023 History of Present illness Narrative* Gabriella Mason RN - 01/13/2023 12:05 PM EDT Tremaine Selma would like to notify patient that his creat is better. Would like to see him in 1 weekwith labs and IVF. Encourage patient to take 60oz of water daily. Treatment nurse notified and willmake patient aware. documented in this encounterSelect Medical [place] [facility], [place]04-07-2023 History of Present illness Narrative* Tremaine Gomez PA-C - 01/13/2023 12:00 PM EDT Images from the original note were not included. PATIENT NAME: Caitlin Elmore [facility] NO.: [id number] ATTENDING PHYSICIAN: Elizabeth Borjas MD DATE OF SERVICE: January 13, 2023 (Elements copied from Dr. Borjas's note dated January 11, 2023, have been reviewed and updated whereappropriate, and all reflect current assessment and medical decision making during today's encounter, January 13, 2023) CC: Follow up and fluids Diagnosis: HPV positive BOT SCC Treatment History: Concurrent Cisplatin and XRT 11/21/2021- XRTY completed 01/06/2023 and last dose of chemo 12/21/2022 (Total Hoopa dose= 200 mg/m2) HPI: Mr. Elmore returns [...] Range Status 01/13/2023 11.8 % Final Abs [place] Date Value Ref Range Status 01/13/2023 0.38 [...] therapy completed 01/06/2023 and received a total of200 mg/m2 of nanwalek as well. 2. PET positive in the prostate area and will get PSA and will address after completion of therapy and will need referral 3. Follow nutrition and monitor weight 4. IV Hydration today, creatinine improved, encouraged oral hydration at home, see him next week for labs and follow up Tremaine Gomez PA-C CC: Julian Burton MD documented in this encounterSelect Medical [place] [facility] [place]04-06-2023 History of Present illness Narrative* G Alex Ivy MD - 01/12/2023 2:21 PM EDT Radiation Oncology - Follow Up Note PATIENT [...] difficulty with dysphagia, and swallowing. Has had IVfluid rehydration a couple times in the last [...] 10 mL by mouth every 6 hours asneeded for pain. Take with stool softener. amLODIPine [...] Continue conservative care including IV hydration as necessary.Plan to see patient back in 1 to 2 weeks for further follow-up. Patient will have continued follow-up with Dr. Forbes Signed by: Nino Ivy MD cc: Julian Burton [address] [place] [phone] Nino Ivy [address] [place] [address] [place] [id number] documented in this encounterSelect Medical [place] [facility] [place]04-05-2023 History of Present illness Narrative* Elizabeth Borjas MD - 01/11/2023 9:50 AM EDT Images from the original note were not included. PATIENT NAME: Caitlin Elmore [facility] NO.: [id number] ATTENDING PHYSICIAN: Elizabeth Borjas MD DATE OF SERVICE: January 11, 2023 Some of the elements of this note have been copied from my previous progress note dated 12/21/2022. All the information has been reviewed carefully. Dear No referring provider defined for this encounter. here is an update on a follow up visit on gricelda Elmore at the clinic January 11, 2023 Diagnosis: HPV positive BOT SCC Treatment History: Concurrent Cisplatin and XRT 11/21/2021- XRTY completed 01/06/2023 and last dose of chemo 12/21/2022 (Total Hoopa dose= 200 mg/m2) HPI: Caitlin Elmore is [...] Range Status 01/04/2023 13.0 % Final Abs [place] Date Value Ref Range Status 01/04/2023 0.25 [...] therapy completed 01/06/2023 and received a total of200 mg/m2 of nanwalek as well. 2. PET positive in the prostate area and will get PSA and will addres after completion of therapy and will need referral 3. Follow nutrition and monitor weight 4. IV Hydration today and also on Monday monitor creat Thank you for the kind referral. If there are any questions and or concerns please do not hesitate to contact me at [phone]. Elizabeth Borjas MD Hematology/Medical Oncology [facility] spent a total of 30 minutes on the date of the service which included preparing to see the patient, igil-th-xnsc patient care, completing clinical documentation, obtaining and/or reviewing separately obtained history, performing a medically appropriate examination, counseling and educating the pat ient/family/caregiver, and ordering medications, tests, or procedures. CC: Julian Burton MD documented in this encounterSelect Medical [place] [facility] [place]04-03-2023 Miscellaneous Notes* Telephone Encounter - Sang Cisneros RP - 01/09/2023 8:52 AM EDT Pharmacist Refill Authorization Review Name: Caitlin Elmore Date: 01/09/2023 Time: 8:53 AM Refill authorization request(s) received and reviewed under effective consult agreement. Upon review, did confirm that an active patient-provider relationship exists and that the prescriber is a participating physician under the consult agreement. Last office visit in this department: Visit date not found Last distance health visit in this department: Visit date [...] 0 Sang Cisneros RPh documented in this encounterSelect Medical [place] [facility], [place]03-31-2023 History of Present illness Narrative* Yadi Simms RD - 01/06/2023 2:15 PM EDT Oncology Nutrition Therapy Progress Note RECOMMENDED MALNUTRITION [...] still tolerate some soft solids such as eggsand hamburger mac/cheese. He is taking ONS and [...] Simms MS, RDN, LD documented in this encounterSelect Medical [place] [facility], [place]03-31-2023 History of Present illness Narrative* G Alex Ivy MD - 01/06/2023 12:00 AM EDT [facility] Radiation Oncology Department RADIATION ONCOLOGY - COMPLETION NOTE PATIENT: LUIS ENRIQUE ELMORE: 1965 DATES OF TREATMENT: 11/21/22-01/06/23 DIAGNOSIS: Oropharyngeal [...] treatment as intended without break interruption or mo dification of prescription plan. Cone beam CT showed excellent tumor response during the course of treatment. The disease response will be assessed in clinic. The patient will be seen again in 2 weeks for post radiation follow-up. Staff Physician Alex Ivy M.D. / MARGIE :38 PM Electronically Signed cc: Dr. Josephine Borjas documented in this encounterSelect Medical [place] [facility], [place]03-27-2023 History of Present illness Narrative* Nino Ivy MD - 01/02/2023 2:03 PM EDT Radiation Oncology - On Treatment Review (OTR) [...] or ulceration no obvious tumor or mass. Stillwith tongue asymmetry level 2 lymph node not [...] parameters. Continue radiation treatment as planned. Nino Ivy MD documented in this encounterSelect Medical [place] [facility], [place]03-27-2023 History of Present illness Narrative* Nino Ivy MD - 01/02/2023 12:00 AM EDT CAITLIN ELMORE [id number] 01/02/2023 [facility] Department of Radiation Oncology Treatment Planning Note Choose an item. Choose an item. Addendum to the 12/26/2022 treatment planning. Patient has lost weight sponsors had changed and doseanalysis showed a replan as necessary. Repeat CT was done and treatment planning position. Patient was recontoured every plan. Please see 12/26/2022 treatment planning. ]] Electronically Signed Alex Ivy M.D. 32:24 PM Addendum to the 12/26/2022 treatment planning. Patient has lost weight sponsors had changed and doseanalysis showed a replan as necessary. Repeat CT was done and treatment planning position. Patient was recontoured every plan. Please see 12/26/2022 treatment planning. documented in this encounterSelect Medical [place] [facility] [place]03-24-2023 Miscellaneous Notes* Telephone Encounter - Tremaine Gomez PA-C - 12/30/2022 1:34 PM EDT Hydration orders placed Tremaine Gomez PA-C * Telephone Encounter - Janene Miller LPN - 12/30/2022 1:20 PM EDT Олег Dixon is here for radiation therapy [...] 98.7, R 16, SpO2 96% RA resting. Tremaine will you please enter hydration orders if you are in agreement? Thanks Janene Miller LPN documented in this encounterSelect Medical [place] [facility] [place]03-23-2023 Miscellaneous Notes* Telephone Encounter - Chiqui Modi RN - 12/29/2022 2:49 PM EDT TOXICITY CHECK SYMPTOM ASSESSMENT The patient is [...] protocol. Chiqui Modi RN documented in this encounterSelect Medical [place] [facility], [place]03-20-2023 History of Present illness Narrative* Nino Ivy MD - 12/26/2022 1:40 PM EDT Radiation Oncology - On Treatment Review (OTR) [...] 10. Still some swallowing discomfort 2 out of10. Thicker saliva. PHYSICAL EXAM: 12/26/22 1328 BP: [...] parameters. Continue radiation treatment as planned. Nino Ivy MD documented in this encounterSelect Medical [place] [facility] [place]03-20-2023 History of Present illness Narrative* Yadi Simms RD - 12/26/2022 1:14 PM EDT Oncology Nutrition Therapy Progress Note RECOMMENDED MALNUTRITION [...] Simms MS, RDN, LD documented in this encounterSelect Medical [place] [facility] [place]03-20-2023 History of Present illness Narrative* Nino Ivy MD - 12/26/2022 12:00 AM EDT CAITLIN ELMORE [id number] 12/26/2022 [facility] Radiation Oncology Department SIMULATION NOTE DATE OF SIMULATION: 12/26/2022 THERAPIST: Chani Cerna MACHINE: [employer] mCT DIAGNOSIS: Malignant neoplasm of base of [id number] AREA: H&N CONTRAST: None Consent in Epic: [...] be completed per nursing. Electronically Signed Alex Ivy M.D. / MARY 33:42 PM documented in this encounterSelect Medical [place] [facility] [place]03-20-2023 History of Present illness Narrative* Nino Ivy MD - 12/26/2022 12:00 AM EDT CAITLIN ELMORE [id number] 12/26/2022 [facility] Department of Radiation Oncology Treatment Planning Note [...] concurrently/presence of pacemaker/presence of prosthesis in treatment field/hyperfractionation/stereotactic body radiation therapy (SBRT). After reviewing multiple [...] using conventional or 3D planning. The specific doserequirements for the PTV, organs at risk and dose-volume histograms are contained in this treatmentplan and/or elsewhere in the medical record. A completed summary of this plan dated 12/28/22 incorporated herein by reference includes dose, beamarrangements, energy, blocking, isodose distribution, and/or ports and DVH. documented in this encounterSelect Medical [place] [facility] [place]03-15-2023 History of Present illness Narrative* Elizabeth Borjas MD - 12/21/2022 10:23 AM EDT Images from the original note were not included. PATIENT NAME: Caitlin Elmore [facility] NO.: [id number] ATTENDING PHYSICIAN: Elizabeth Borjas MD DATE OF SERVICE: December 21, 2022 Some of the elements of this note have been copied from my previous progress note dated 11/29/2022. All the information has been reviewed carefully. Dear Dr. Carrillo referring provider defined for this encounter. here is an update on a follow up visit on male Caitlin Elmore at the clinic December 21, 2022 Diagnosis: HPV positive BOT SCC Treatment History: Concurrent Cisplatin and XRT 11/21/2021 HPI: Caitlin Elmore is a 57 year old year old male here for follow up. Tolerating therapy well and trying to eat and denies any major pain issues and denies any diarrhea.Denies any neuropathy PAST MEDICAL HISTORY Diagnosis Date [...] Range Status 12/21/2022 9.4 % Final Abs [place] Date Value Ref Range Status 12/21/2022 0.59 [...] do not hesitate to contact me at [phone]. Elizabeth Borjas MD Hematology/Medical Oncology [facility] I spent a total of 30 minutes on the date of the service which included preparing to see the patient, aoxh-di-movd patient care, completing clinical documentation, obtaining and/or reviewing separately obtained history, performing a medically appropriate examination, counseling and educating the pat ient/family/caregiver, and ordering medications, tests, or procedures. CC: Julian Burton MD documented in this encounterSelect Medical [place] [facility] [place]03-14-2023 Miscellaneous Notes* Telephone Encounter - Chiqui Modi RN - 12/20/2022 3:49 PM EDT TOXICITY CHECK SYMPTOM ASSESSMENT The patient is on Cisplatin with radiation Headache: No Dizziness: No Mouth or throat pain: Yes pt continues with a little bit of ear/throat pain, also with a new tonguepain in the middle of his tongue that he describes as a muscle pain that he notices more as the daygoes on. States Dr Ivy is aware. Appetite: no changes in appetite, appetite good Taste changes: No Nausea: Yes at times for the first couple of days after treatment. Vomiting: No Heartburn: No. Weight gain/loss: Yes pt met with interior decorator yesterday and he feels that this has [...] protocol. Chiqui Modi RN documented in this encounterSelect Medical [place] [facility] [place]03-13-2023 History of Present illness Narrative* Yadi Simms, RD - 12/19/2022 2:22 PM EDT Oncology Nutrition Therapy Reassessment RECOMMENDED MALNUTRITION DIAGNOSIS: [...] plus 2-3 times per day -trial boost [facility] -mix with ice cream -incorporate calorie/protein boosting [...] Simms MS, RDN, LD documented in this encounterSelect Medical [place] [facility] [place]03-08-2023 History of Present illness Narrative* Lorena Scott RN - 12/14/2022 2:15 PM EST Pt requests to return on Tuesday 12/19 for IVF, GINETTE Mays gives ok to add to schedule for Mondayand IVF orders. Request sent to [facility] to add to schedule. Lorena Scott RN documented in this encounterSelect Medical [place] [facility] [place]03-08-2023 History of Present illness Narrative* Tremaine Gomez PA-C - 12/14/2022 9:00 AM EST Images from the original note were not included. PATIENT NAME: Caitlin [facility] NO.: [id number] ATTENDING PHYSICIAN: Elizabeth Borjas MD DATE OF [...] Range Status 12/14/2022 9.2 % Final Abs [place] Date Value Ref Range Status 12/14/2022 0.43 [...] a referal to upon completion of chemo/rads Tremaine Gomez PA-C CC: Julian Burton MD documented in this encounterSelect Medical [place] [facility] [place]03-08-2023 History of Present illness Narrative* Yadi Simms, RD - 12/14/2022 8:48 AM EST Oncology Nutrition Therapy Progress Note RECOMMENDED MALNUTRITION DIAGNOSIS: NO MALNUTRITION IDENTIFIED per J.Kaetzel, RD on 11/04/2022 Some elements copied from my [...] Simms MS, RDN, LD documented in this encounterSelect Medical [place] [facility] [place]03-06-2023 History of Present illness Narrative* Yadi Simms RD - 12/12/2022 2:49 PM EST Oncology Nutrition Therapy Progress Note Attempted to see patient for scheduled follow up. Unable to see as patient had already left after radiation appointments. Will attempt to follow up with patient on Thursday 12/14 during chemotherapy. Signed by: Yadi Simms MS, RDN, LD documented in this encounterSelect Medical [place] [facility] [place]03-06-2023 History of Present illness Narrative* Nino Ivy MD - 12/12/2022 2:37 PM EST Radiation Oncology - On Treatment Review (OTR) [...] CT shows tumor is responding. Toxicity within expectedparameters. Continue radiation treatment as planned. Nino Ivy MD documented in this encounterSelect Medical [place] [facility] [place]03-01-2023 History of Present illness Narrative* Tremaine Gomez PA-C - 12/07/2022 10:00 AM EST Images from the original note were not included. PATIENT NAME: Caitlin Elmore [facility] NO.: [id number] ATTENDING PHYSICIAN: Elizabeth Borjas MD DATE OF [...] 0.60 (L) 1.00 - 4.00 k/uL Final [place]% Date Value Ref Range Status 12/07/2022 11.1 % Final Abs [place] Date Value Ref Range Status 12/07/2022 0.80 [...] completion of therapy and will need referral Tremaine Gomez PA-C CC: Julian Burton MD documented in this encounterSelect Medical [place] [facility] [place]02-28-2023 History of Present illness Narrative* Yadi Simms RD - 12/06/2022 1:44 PM EST Oncology Nutrition Therapy Progress Note RECOMMENDED MALNUTRITION [...] Simms MS, RDN, LD documented in this encounterSelect Medical [place] [facility] [place]02-28-2023 Miscellaneous Notes* Telephone Encounter - Chiqui Modi RN - 12/06/2022 9:28 AM EST TOXICITY CHECK SYMPTOM ASSESSMENT The patient is [...] protocol. Chiqui Modi RN documented in this encounterSelect Medical [place] [facility] [place]02-27-2023 History of Present illness Narrative* Yadi Simms RD - 12/05/2022 2:15 PM EST Oncology Nutrition Therapy Reassessment Attempted to see patient for scheduled follow up. However, patient had already left after radiationappointments. Will have [facility] team attempt to reach out to patient to schedule for another day this week. Signed by: Yadi Simms MS, RDN, LD documented in this encounterSelect Medical [place] [facility] [place]02-27-2023 History of Present illness Narrative* Nino Ivy MD - 12/05/2022 2:10 PM EST Radiation Oncology - On Treatment Review (OTR) [...] CT shows tumor is responding. Toxicity within expectedparameters. Continue radiation treatment as planned. Nino Ivy MD documented in this encounterSelect Medical [place] [facility] [place]02-21-2023 History of Present illness Narrative* Yadi Simms RD - 11/29/2022 10:49 AM EST Oncology Nutrition Therapy Progress Note RECOMMENDED MALNUTRITION [...] Simms MS, RDN, LD documented in this encounterSelect Medical [place] [facility] [place]02-20-2023 History of Present illness Narrative* Nino Ivy MD - 11/28/2022 11:45 AM EST Radiation Oncology - On Treatment Review (OTR) [...] parameters. Continue radiation treatment as planned. Nino Ivy MD documented in this encounterSelect Medical [place] [facility] [place]02-16-2023 Miscellaneous Notes* Telephone Encounter - Chiqui Modi RN - 11/24/2022 9:57 AM EST CYCLE 1/DAY 1 POST TREATMENT CALL Today's [...] protocol. Chiqui Modi RN documented in this encounterSelect Medical [place] [facility], [place]02-14-2023 Miscellaneous Notes* Telephone Encounter - Julia Mckeon - 11/22/2022 4:59 PM EST 1st report of treatment-Benefit investigation complete. Spoke with patient's spouse Clarissa today. Patient is active with [employer], LOC 80%, $1500 deductible has $0 remaining, $7000 OOP has $3015 remaining. Estimate shows patient financial responsibility is $198 for each chemo treatment in 2022 until oop max is reached. Explained to Clarissa that he will more than likely meet his OOP very soon since he isalso getting radiation. She stated understanding. I told [...] well as phone number to [facility] ([facility]) that can help set payments up for them. She was appreciative of the information given. Est Reference #[id number] documented in this encounterSelect Medical [place] [facility] [place]02-13-2023 History of Present illness Narrative* ROB Pritchard - 11/21/2022 11:56 AM EST SOCIAL WORK FOLLOW UP NOTE: [facility] [...] as appropriate. KETURAH Pritchard documented in this encounterSelect Medical [place] [facility], [place]02-13-2023 History of Present illness Narrative* Yadi Simms RD - 11/21/2022 10:45 AM EST Oncology Nutrition Therapy Progress Note RECOMMENDED MALNUTRITION [...] Simms MS, TYSHAWN, RAYSA documented in this encounterSelect Medical [place] [facility] [place]02-13-2023 History of Present illness Narrative* Tremaine Gomez PA-C - 11/21/2022 9:12 AM EST Images from the original note were not included. PATIENT NAME: Caitlin Elmore [facility] NO.: [id number] ATTENDING PHYSICIAN: Elizabeth Borjas MD DATE OF [...] Cisplatin and XRT started 11/21/2022 HPI: Mr. Elmroe returns with his today to start Cisplatin [...] 11/21/2022 1.47 1.00 - 4.00 k/uL Final [place]% Date Value Ref Range Status 11/21/2022 8.0 % Final Abs [place] Date Value Ref Range Status 11/21/2022 0.57 [...] week for labs and to continue treatment. Tremaine Gomez PA-C CC: BiancaDO Alex Hart MD Douglas M Hoy, MD documented in this encounterSelect [facility] [place] [facility] [place] Miscellaneous Notes* Telephone Encounter - Janene Miller LPN - 11/15/2022 1:09 PM EST Mrs. Elmore notified of the appt 11/21/22 at 8:15. Janene Miller LPN * Telephone Encounter - Janene Miller LPN - 11/15/2022 9:31 AM EST New start has been rescheduled to 11/21/22 at 8:15. Chiqui Caceres RN notified and will have his chemo rescheduled to coordinate with his xrt. He should be done with his radiation tx by 9:00 that a.m. Thanks Janene Miller LPN * Telephone Encounter - Janene Miller LPN - 11/15/2022 9:23 AM EST Images from the original note were not included. Patient Update (Newest Message First) Nino Ivy MD [facility]; Chiqui Modi RN; Elizabeth Borjas MD 23 minutesago (8:55 AM) Would like to start next week due to significant growth in saul disease over past 3 * Telephone Encounter - Janene Miller LPN - 11/15/2022 9:22 AM EST I notified RT iFona that Dr. Ivy would like to start Mr. Elmore's tx next week and she will notify nursing with a start date. Janene Miller LPN * Telephone Encounter - Nino Ivy MD - 11/15/2022 8:52 AM EST In review of PET scan and CT [...] anticipate starting on this upcoming Monday. Nino Ivy MD documented in this encounterSelect Medical [place] [facility] [place]2023 Miscellaneous Notes* Telephone Encounter - Suri Zaragoza - 11/15/2022 11:19 AM EST Patient coming in on Monday11/21/22 for treatment visit New Start. Do you want labs? documented in this encounterSelect Medical [place] [facility] [place]-2023 Miscellaneous Notes* Telephone Encounter - Ellyn Mullins - 11/15/2022 10:10 AM EST Patient has been scheduled for RV and treatment with Tremaine following XRT same day. Ellyn Mullins * Telephone Encounter - Chiqui Modi RN - 11/15/2022 9:52 AM EST Pt will be starting radiation on 11/21/22 at 815, should be done by 9. Can we please schedule labs, follow up, and treatment for him this morning as well. Thanks Chiqui Modi RN documented in this encounterSelect Medical [place] [facility] [place]-2023 Miscellaneous Notes* Telephone Encounter - Ellyn Mullins - 11/14/2022 12:22 PM EST Patient to begin XRT on 12/07. Per radiation, his chemo needs be scheduled after. Patient has been scheduled for RV and treatment same day. Ellyn Mullins * Telephone Encounter - Ellny Mullins - 11/03/2022 11:07 AM EST ----- Message from Janene Miller LPN sent at 11/03/2022 10:55 AM EST ----- Regarding: chemo/radiation FYI--CLARICE needs to have dental extraction(s) which he will arrange with his dentist. Dr. Ivy plans to reschedule his SIM 1-2 days after extraction(s) and start treatment after CLARICE returns from vacation. Patient will notify our office of extraction date. We will need to coordinate chemo/radiation start date at his SIM appt. Thanks Karina documented in this encounterSelect Medical [place] [facility] [place]-2023 History of Present illness Narrative* G Alex Ivy MD - 11/14/2022 12:00 AM EST ELMORECAITLIN [id number] 11/14/2022 [facility] Radiation Oncology Department SIMULATION NOTE DATE OF SIMULATION: 11/14/2022 THERAPIST: Nicole Amin MACHINE: Dexetra DIAGNOSIS: Malignant neoplasm of base of [id number] AREA: H &N CONTRAST: IV 100CC omni [...] be completed per nursing. Electronically Signed Alex Ivy M.D. / CDT 34:53 PM documented in this encounterSelect Medical [place] [facility] [place]-2023 History of Present illness Narrative* Zach Bryan MD - 11/14/2022 12:00 AM EST CAITLIN ELMORE [id number] 11/14/2022 [facility] Department of Radiation Oncology Treatment Planning Note [...] using conventional or 3D planning. The specific doserequirements for the PTV, organs at risk and dose-volume histograms are contained in this treatmentplan and/or elsewhere in the medical record. A completed summary of this plan dated 11-18-22 incorporated herein by reference includes dose, beamarrangements, energy, blocking, isodose distribution, and/or ports and DVH. Electronically Signed Zach Bryan M.D. 38:55 AM documented in this encounterSelect Medical [place] [facility] [place]-03-2023 History of Present illness Narrative* Rehana Pulliam RN - 11/11/2022 1:30 PM EST Radiology Service Progress Note DATE OF SERVICE: November 11, 2022 TIME: 1:53 PM PATIENT WEIGHT: 201 LBS PATIENT IDENTITY VERIFICATION COMPLETED USING TWO (2) STANDARD IDENTIFIERS: Name and Date of confirmed by patient verbally. FALL SCREENING: Has the patient had 2 falls in the last year or 1 fall with injury or currently using an Ambulatory Assistive Device (Walker, Cane, Wheelchair, Crutches, etc.)? No PATIENT GENDER DATA: Male ALLERGIES: Reviewed and unchanged EXAM: CT -CONTRAST INDUCED NEPHROPATHY RISK FACTORS: Not applicable CREATININE: No results found for: CREAT, EGFROTH, EGFRAA P.O.C.T. RESULTS: POC done: Yes, See Lab Tab November 11, 2022 TREATMENT: N/A IV SITE: Ambulatory: A peripheral IV was started in the Left antecubital site with a Angio cath: 22gauge. IV SITE APPEARANCE: Clean,Dry and Intact SIGNATURE: Rehana Pulliam RN PATIENT NAME: Caitlin Elmore DATE: November 11, 2022 TIME: 1:53 PM * Kayy Kwon, RT(R) - 11/11/2022 1:30 PM EST RADIOLOGY SERVICE PROGRESS NOTE SERVICE DATE: 11/11/2022 SERVICE TIME: 2:04 PM PATIENT IDENTITY VERIFICATION COMPLETED USING TWO (2) STANDARD IDENTIFIERS: Name and Date of confirmed by patient verbally POST EXAM PIV STATUS: Discontinued PROCEDURE TYPE: NM INJECT: PET/CT BODY SCAN. 13.2 mCi F18 FDG. No other medications given.. ADMINISTRATION TIME: 1348 PATIENT DISCHARGED TO: Ambulatory patient, left [place] department area. A Diagnostic radioactive procedure has taken place, with no further precautions necessary other than routine body substance precautions. More information regarding radiation safety can be found usingthis link: [email or web address] SIGNATURE: RT Ramila(R) PATIENT NAME: Caitlin Elmore DATE: November 11, 2022 TIME: 2:04 PM PAGER/CONTACT #: documented in this encounterSelect Medical [place] [facility] [place]-01-2023 History of Present illness Narrative* G Alex Ivy MD - 11/09/2022 3:26 PM EST Radiation Oncology - New Patient/Consult Note PATIENT [...] healing from extraction . Signed by: Nino Ivy MD cc: Julian Burton MD [address] [place] [address] Enoch Forbes MD [address] [place] [phone] documented in this encounterSelect Medical [place] [facility], [place]01-27-2023 History of Present illness Narrative* Yadi Demi, RD - 11/04/2022 8:50 AM EST Oncology Nutrition Therapy Initial Assessment This visit was performed as a telehealth visit due to the COVID-19 pandemic as an effort to protectpatients and minimize exposure. Consent from patient received [...] Pt has not started treatment as of yet.Per notes, it appears patient will need dental extraction prior to beginning radiation and cisplatin. Pt denies any chewing/swallowing issues, denies current N/V/D/C. Pt denies food allergies/intolerances. Appetite appears to be good, Intakes are good. Pt states he is currently eating like crazy. He isconsuming 3-4 meals per day. 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 Reviewed with pt importance of adequate calorie/protein [...] Ht Readings: Date: Ht: 11/02/2022 180.3 cm (5 10.98 ) Current weight: Last 1 Encounter Wt Readings: Date: Wt: 11/02/2022 92.6 kg (204 lb 3.2 oz) Estimated body mass index is 28.49 kg/m as calculated from the following: Height as of 11/02/22: 180.3 cm (5 10.98 ). Weight as of 11/02/22: 92.6 kg (204 lb 3.2 oz). Resting Metabolic Rate: 1781 Weight Loss: 5.1kg )5.2%) x ~6-7 months per pt- not clinically significant UBW: 215# (97.7kg) this past summer Dosing Weight: 92.6 kg Estimated kilocalorie needs: 9711-5563 kilocalories determined by 25-30 kcal/kg Estimated protein needs: 93-111 grams determined by 1.0-1.2 g/kg Dosing weight Estimated fluid needs: ~2440-6755 milliliters based on 1 mL per kcal (unless otherwise noted) Nutrition Focused Physical Exam: Unable to perform exam due to patient unavailable, will re-attemptduring reassessment. Potential Signs of Inflammation: chronic condition [...] Simms MS, RDN, LD documented in this encounterSelect Medical [place] [facility], [place]01-26-2023 History of Present illness Narrative* Chiqui Modi RN - 11/03/2022 1:28 PM EST ONCOLOGY PATIENT EDUCATION NOTE TOPIC: Chemotherapy, Medications: [...] was provided/discussed including but not limited to: abdominaldiscomfort, anemia, appetite changes, arthralgia, bowel habit changes, chest pain, diet, electrolyte disturbances, fatigue, hair loss, headache, hypersensitivity reaction, infection, kidney toxicity,myalgia, nausea/vomitting, neutropenia, peripheral neuropathy, rash, risk for [...] patient, which included the importance of reporting anyfever of 100.4F (38.0C) or greater to the healthcare team as noted on the provided wallet card and/or magnet. YES - 4th Alfred Information. YES - Patient services information. YES Time Spent: 45 minutes REFERRAL (RECOMMENDATION): pt aware of services available here at our office. Chiqui Modi, RN Securities Dealer Pre Chemo Patient identified by name and date of . YES Confirmed date and time for chemotherapy ? YES TBD Other appointments (labs, imaging) discussed? 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 Chiqui Modi RN * Melissa Santoyo, [facility] - 11/03/2022 10:00 AM EST Images from the original note were not included. [facility] Department of Pharmacy Oncology Pharmacy Medication Education Patient Name: Caitlin Elmore Primary Oncologist: elizabeth borjas Diagnosis: oropharnyx ca Caitlin Elmore is a 57 year old patient and spouse here today for medication education for IV CISPLATIN. Drug Interactions: Clinically significant interactions with chemotherapy, immunosuppression, or other standard of caretreatment plan medications anticipated: No. There are no [...] minute increments) with the patient Evon Santoyo [facility] Pager: documented in this encounterSelect Medical [place] [facility], [place]01-26-2023 Miscellaneous Notes* Telephone Encounter - Nancie Oro RPh - 11/03/2022 10:27 AM EST Ambulatory Pharmacy Prior Authorization Note Provider Intervention Required?: No- Pharmacy completed on your behalf. Rx Plan: Other: [facility]: Ondansetron HCl 8MG tablets Cover My Meds [place]: [id number] Determination: Approved Prior Authorization/Case #: [id number] Prior Authorization Expiration: 11/03/2023 Time to PA Submission in CMM: 15 min Time to PA Determination in CMM: Same day Additional Information: For questions relating to this submission, please contact [facility] at [phone] documented in this encounterSelect Medical [place] [facility], [place]01-25-2023 History of Present illness Narrative* Elizabeth Borjas MD - 11/02/2022 10:54 AM EST Images from the original note were not included. PATIENT NAME: Caitlin Elmore CLINIC NO.: [id number] ATTENDING PHYSICIAN: Elizabeth Borjas MD DATE OF SERVICE: November 02, [address] Nino Ivy thank you for referring Mr. Caitlin Elmore for an opinion regarding BOT SCC,P16 positive . CHIEF COMPLAINT: I have throat [...] the start of radiation. Dear Dr. Nino Ivy, thank you for allowing me to participate in Mr Caitlin Elmore care, if there are any questions or concerns please do not hesitate to contact me at the number below. Elizabeth Borjas M.D. Hematology/Medical Oncology [facility] [phone] CC: DO Alex Brice MD Douglas M Hoy, MD documented in this encounterSelect Medical [place] [facility], [place]01-24-2023 Miscellaneous Notes* Telephone Encounter - Janene Miller LPN - 11/01/2022 9:23 AM EST Information faxed as requested. Janene Miller LPN * Telephone Encounter - Janene Miller LPN - 10/31/2022 4:14 PM EST Please fax requested information to [phone]. Janene Miller LPN * Telephone Encounter - Janene Miller LPN - 10/31/2022 3:56 PM EST [facility] called back stating the dentist is requesting patient's diagnosis, recommended treatment, and field of radiation prior to signing off for radiation clearance. Please advise. Janene Miller LPN * Telephone Encounter - Janene Miller LPN - 10/31/2022 2:[address] [facility] left a message requesting patient information including diagnosis and treatment abarca for CLARICE. I called back and left a message for someone to call back to get specific details of what they are looking for. Janene Miller LPN documented in this encounterSelect Medical [place] [facility], [place]01-19-2023 Miscellaneous Notes* Telephone Encounter - Abbie Knowles - 10/27/2022 10:59 AM EST Patient scheduled for dental evaluation at [facility] on 10/31 @ 1:30. Called patient to inform of appointment date & time. Dental evaluation form also faxed to office. Abbie Knowles documented in this encounterSelect Medical [place] [facility], [place]01-19-2023 Nurse Note* Janene Miller LPN - 10/27/2022 10:11 AM EST Radiation Therapy - Patient Education Note PATIENT NAME: Caitlin Elmore PATIENT October 27, 2022 [facility] [place]/LOCATION: [facility] READINESS TO LEARN Cognitive Ability: Alert [...] and family verbalized understanding of radiation treatments, sideeffects, OTV, and transportation. Follow-up plan: Recommend - Recommend continued instruction and follow up as directed Supplemental material: Informational handouts on Appetite, Esophagitis/Mucositis, Fatigue, Hair loss, Head and neck packet, Skin changes, Salt and soda rinses, and taste changes, managing swallowing difficulties, patient education binder. Referral (recommendation): Dietitian Was approved? No Signed by: Janene Miller LPN documented in this encounterSelect Medical [place] [facility] [place]01-19-2023 History of Present illness Narrative* Nino Ivy MD - 10/27/2022 9:00 AM EST Radiation Oncology - New Patient/Consult Note PATIENT [...] length with patient and his . We willplan to coordinate treatment planning process with simulation [...] done ahead of time or time should heneeded due to weight loss etc. Patient will return early next week to initiate the planning processand will discuss medical oncology in terms of coordination of further care. He also may be a candidate for current [facility] head and neck study randomizing between weekly and every 3 week cis-nanwalek during radiation. That he should Signed by: Nino Ivy MD cc: Julian Burton MD [address] [place] [address] Enoch Forbes MD [address] [facility] [id number] documented in this encounterSelect Medical [place] [facility], [place]01-10-2023 NoteOPERATIVE NOTE OPERATION DATE: 10/18/2022 PRIMARY CARE PHYSICIAN: Julian Burton M.D. SURGEON: Enoch Forbes M.D. PREOPERATIVE [...] recovery room in good condition. CC: Alex Ivy M.D.[facility]09-02-2022 Hospital Discharge instructions Patient Education 06/10/2022 08:42:02 [...] done before cancer symptoms start. Screening can helpto identify cancer at an early stage, when [...] if you need screening if you have oneof these risk factors: ?Being of -[place] descent. ?Having a family history of prostate [...] you: Are older than age 55. Are -[place]. Have a father, brother, or uncle who [...] not tell you if your cancer needs dioni treated. Slow-growing prostate cancer may not need [...] 07/06/2018 Document Revised: 09/07/2018 Document Reviewed: 07/06/2018 [employer] Patient Education [employer]yard Follow Up Care 05/30/2022 13:32:45 With:Shelly Cook, URL Address: When:Within 8 Month(s) Comments:F/U PSA (free and total), BPH, elevated PSA [facility] Evaluation + Plan note Future Appointments Appointment Date:02/10/2023 09:00:00 AM Scheduled Provider:Shelly Cook Location:[facility] Appointment Type:URO Office Visit Diagnostic Tests Pending * PSA Free & Total 06/10/22 [facility] Evaluation + Plan note Future Appointments Appointment Date:07/07/2023 10:00:00 AM Scheduled Provider:Norma Craig MD Location:[facility] Appointment Type:URO Office Visit Appointment Date:09/21/2023 09:00:00 AM Scheduled Provider:Norma Craig MD Location:[facility] Appointment Type:URO Office Visit [facility] Evaluation + Plan note Future Appointments Appointment Date:09/21/2023 09:00:00 AM Scheduled Provider:Norma Craig MD Location:[facility] Appointment Type:URO Office Visit Appointment Date:07/05/2024 10:00:00 AM Scheduled Provider:Norma Craig MD Location:[facility] Appointment Type:URO Office Visit Diagnostic Tests Pending * PSA Free & Total 07/07/23 [facility] Evaluation + Plan note Future Appointments Appointment Date:06/27/2025 03:00:00 PM Scheduled Provider:Norma Craig MD Location:[facility] Appointment Type:URO Office Visit Diagnostic Tests Pending * PSA Free & Total 06/28/24 [facility] Evaluation + Plan note Future Appointments Appointment Date:07/05/2024 10:00:00 AM Scheduled Provider:Norma Craig MD Location:[facility] Appointment Type:URO Office Visit [facility] [employer] Up note* Diagnosis Oropharnyx cancer (HCC)- Primary [facility] Diagnosis Oropharnyx cancer (HCC) Malignant neoplasm [...] ClinicEvaluation note* Diagnosis Oropharnyx cancer (HCC)- Primary Esophagitis Esophagitis, unspecified [facility]* Diagnosis Oropharnyx cancer (HCC)- Primary [facility]* Diagnosis Oropharnyx cancer (HCC)- Primary [facility]* Diagnosis Oropharnyx cancer (HCC)- Primary Esophagitis Esophagitis, unspecified Elevated prostate specific antigen (PSA) [facility]* Diagnosis Oropharnyx cancer (HCC)- Primary [facility]* Diagnosis Oropharnyx cancer (HCC)- Primary [facility]* Diagnosis 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 Oropharnyx cancer (HCC) [facility]* Diagnosis Oropharnyx cancer (HCC)- Primary [facility]* Diagnosis Oropharnyx cancer (HCC)- Primary Severe protein-calorie malnutrition (HCC) Other severe protein-calorie malnutrition [facility]* Diagnosis 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 Oropharnyx cancer (HCC) [facility]* Diagnosis Malignant neoplasm of base of [...] pain (acute) (chronic) [facility] Diagnosis Oropharnyx cancer (HCC)- Primary Severe protein-calorie malnutrition (HCC) Other severe protein-calorie malnutrition [facility]* Diagnosis 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 [facility]* Diagnosis 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 Oropharnyx cancer (HCC) documented [facility] encounter [facility]* Diagnosis 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 documented [facility]* Diagnosis 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 Oropharnyx cancer (HCC) [facility]* Diagnosis Oropharnyx cancer (HCC)- Primary documented in this encounter [facility] [place] [facility]* Diagnosis Elevated prostate specific antigen (PSA)- Primary documented in this encounter [facility] [place] [facility]* Diagnosis Oropharnyx cancer (HCC)- Primary [facility]* Diagnosis Oropharnyx cancer (HCC)- Primary [facility]* Diagnosis Encounter for observation for other suspected diseases and conditions ruled out- Primary documented [facility] noteNo assessment information availableRiverside [facility] Work Phone: Evaluation note* Diagnosis Oropharnyx cancer (HCC)- Primary [facility]* Diagnosis Pulmonary nodule- Primary Solitary pulmonary nodule Preoperative examination Preoperative examination, unspecified [facility]* Diagnosis Pulmonary nodule Solitary pulmonary nodule Preoperative examination Preoperative examination, unspecified Bronchiolar disease Other diseases of trachea and bronchus [facility]* Diagnosis Lung nodule Solitary pulmonary nodule [facility]* 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 Neoplasm of unspecified nature of respiratory system [facility]* Diagnosis Pulmonary nodule- Primary Solitary pulmonary nodule 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 Preoperative examination Preoperative examination, unspecified [facility] Diagnosis Oropharnyx cancer (HCC)- Primary [facility]* Diagnosis Oropharnyx cancer (HCC)- Primary [facility]* Diagnosis Oropharnyx cancer (HCC)- Primary Malaise and fatigue Other malaise and fatigue documented [facility]* Diagnosis Oropharnyx cancer (HCC)- Primary [facility]* Diagnosis 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) documented in this encounter [facility] note* Diagnosis Oropharnyx cancer (HCC)- Primary documented in this encounter [facility] note* Diagnosis Oropharnyx cancer (HCC)- [facility] Diagnosis 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 documented in this encounter [facility] note* Diagnosis 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 [facility] Diagnosis Oropharnyx cancer (HCC)- Primary Malaise and fatigue Other malaise and fatigue [facility] Diagnosis Oropharnyx cancer (HCC)- Primary Malaise and fatigue Other malaise and fatigue [place] headache Headache documented in this encounter [facility] note* Diagnosis Oropharnyx cancer (HCC)- Primary Malaise and fatigue Other malaise and fatigue [place] headache Headache documented in this encounter [facility] note* Diagnosis Oropharnyx cancer (HCC)- Primary [facility] Diagnosis Oropharnyx cancer (HCC)- Primary [facility] Diagnosis Acquired hypothyroidism- Primary Unspecified hypothyroidism Adrenal insufficiency (HCC) Glucocorticoid deficiency [facility]* Diagnosis Adenopathy- Primary Enlargement of lymph nodes [facility]* Diagnosis Pre-op evaluation- Primary Preoperative examination, [...] seen in 05/08/24. [facility] Diagnosis Adenopathy Enlargement of lymph nodes Adenopathy Enlargement of lymph nodes [facility] Diagnosis Lung nodule- Primary Solitary pulmonary nodule Preoperative examination Preoperative examination, unspecified Adenopathy Enlargement of lymph nodes [facility] Pre-op evaluation- Primary Preoperative examination, unspecified 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 Former smoker Personal history of tobacco use, presenting hazards to health Hypothyroidism, unspecified type Adrenal insufficiency (HCC) Glucocorticoid deficiency Primary hypertension Unspecified essential hypertension Hyperlipidemia, unspecified hyperlipidemia type Stage 3 chronic kidney disease, unspecified whether stage 3a or 3b CKD (HCC) 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) Secondary malignant neoplasm of lung [facility] Diagnosis Pre-op evaluation- Primary Preoperative examination, unspecified 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 Former smoker Personal history of tobacco use, presenting hazards to health Hypothyroidism, unspecified type Adrenal insufficiency (HCC) Glucocorticoid deficiency Primary hypertension Unspecified essential hypertension Hyperlipidemia, unspecified hyperlipidemia type Stage 3 chronic kidney disease, unspecified whether stage 3a or 3b CKD (HCC) Oropharnyx cancer (HCC) [facility] Diagnosis Pre-op evaluation- Primary Preoperative examination, unspecified 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 Former smoker Personal history of tobacco use, presenting hazards to health Hypothyroidism, unspecified type Adrenal insufficiency (HCC) Glucocorticoid deficiency Primary hypertension Unspecified essential hypertension Hyperlipidemia, unspecified hyperlipidemia type Stage 3 chronic kidney disease, unspecified whether stage 3a or 3b CKD (HCC) 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 Secondary malignant neoplasm of lung Oropharnyx cancer (HCC) [facility] Diagnosis Pre-op evaluation- Primary Preoperative examination, unspecified 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 Former smoker Personal history of tobacco use, presenting hazards to health Hypothyroidism, unspecified type Adrenal insufficiency (HCC) Glucocorticoid deficiency Primary hypertension Unspecified essential hypertension Hyperlipidemia, unspecified hyperlipidemia type Stage 3 chronic kidney disease, unspecified whether stage 3a or 3b CKD (HCC) Oropharnyx cancer (HCC)- Primary Adrenal insufficiency (HCC) Glucocorticoid deficiency Malaise and fatigue Other malaise and fatigue 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 documented in this encounter [facility] note* Diagnosis Pre-op evaluation- Primary Preoperative examination, unspecified 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 Former smoker Personal history of tobacco use, presenting hazards to health Hypothyroidism, unspecified type Adrenal insufficiency (HCC) Glucocorticoid deficiency Primary hypertension Unspecified essential hypertension Hyperlipidemia, unspecified hyperlipidemia type Stage 3 chronic kidney disease, unspecified whether stage 3a or 3b CKD (HCC) Oropharnyx cancer (HCC)- Primary [facility] Diagnosis Oropharnyx cancer (HCC) Pre-op evaluation- Primary Preoperative examination, unspecified 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 Former smoker Personal history of tobacco use, presenting hazards to health Hypothyroidism, unspecified type Adrenal insufficiency (HCC) Glucocorticoid deficiency Primary hypertension Unspecified essential hypertension Hyperlipidemia, unspecified hyperlipidemia type Stage 3 chronic kidney disease, unspecified whether stage 3a or 3b CKD (HCC) documented in this encounter [facility] note* Diagnosis Pre-op evaluation- Primary Preoperative examination, unspecified 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 Former smoker Personal history of tobacco use, presenting hazards to health Hypothyroidism, unspecified type Adrenal insufficiency (HCC) Glucocorticoid deficiency Primary hypertension Unspecified essential hypertension Hyperlipidemia, unspecified hyperlipidemia type Stage 3 chronic kidney disease, unspecified whether stage 3a or 3b CKD (HCC) 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 Oropharnyx cancer (HCC) Adrenal insufficiency (HCC) Glucocorticoid deficiency documented in this encounter [facility] note* Diagnosis Neoplasm of lung Neoplasm of unspecified nature of respiratory system Pre-op evaluation- Primary Preoperative examination, unspecified 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 Former smoker Personal history of tobacco use, presenting hazards to health Hypothyroidism, unspecified type Adrenal insufficiency (HCC) Glucocorticoid deficiency Primary hypertension Unspecified essential hypertension Hyperlipidemia, unspecified hyperlipidemia type Stage 3 chronic kidney disease, unspecified whether stage 3a or 3b CKD (HCC) documented in this encounter [facility] note* Diagnosis Oropharnyx cancer (HCC) Pre-op evaluation- Primary Preoperative examination, unspecified 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 Former smoker Personal history of tobacco use, presenting hazards to health Hypothyroidism, unspecified type Adrenal insufficiency (HCC) Glucocorticoid deficiency Primary hypertension Unspecified essential hypertension Hyperlipidemia, unspecified hyperlipidemia type Stage 3 chronic kidney disease, unspecified whether stage 3a or 3b CKD (HCC) documented in this encounter [facility] note* Diagnosis Oropharnyx cancer (HCC) Pre-op evaluation- Primary Preoperative examination, unspecified 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 Former smoker Personal history of tobacco use, presenting hazards to health Hypothyroidism, unspecified type Adrenal insufficiency (HCC) Glucocorticoid deficiency Primary hypertension Unspecified essential hypertension Hyperlipidemia, unspecified hyperlipidemia type Stage 3 chronic kidney disease, unspecified whether stage 3a or 3b CKD (HCC) documented in this encounter [facility] note* Diagnosis Pre-op evaluation- Primary Preoperative examination, unspecified 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 Former smoker Personal history of tobacco use, presenting hazards to health Hypothyroidism, unspecified type Adrenal insufficiency (HCC) Glucocorticoid deficiency Primary hypertension Unspecified essential hypertension Hyperlipidemia, unspecified hyperlipidemia type Stage 3 chronic kidney disease, unspecified whether stage 3a or 3b CKD (HCC) Encounter for observation for other suspected diseases and conditions ruled out- Primary documented in this encounter [facility] note* Diagnosis Pre-op evaluation- Primary Preoperative examination, unspecified 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 Former smoker Personal history of tobacco use, presenting hazards to health Hypothyroidism, unspecified type Adrenal insufficiency (HCC) Glucocorticoid deficiency Primary hypertension Unspecified essential hypertension Hyperlipidemia, unspecified hyperlipidemia type Stage 3 chronic kidney disease, unspecified whether stage 3a or 3b CKD (HCC) 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 Secondary malignant neoplasm of lung Oropharnyx cancer (HCC) documented in this encounter [facility] note* Diagnosis Pre-op evaluation- Primary Preoperative examination, unspecified 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 Former smoker Personal history of tobacco use, presenting hazards to health Hypothyroidism, unspecified type Adrenal insufficiency (HCC) Glucocorticoid deficiency Primary hypertension Unspecified essential hypertension Hyperlipidemia, unspecified hyperlipidemia type Stage 3 chronic kidney disease, unspecified whether stage 3a or 3b CKD (HCC) 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 Secondary malignant neoplasm of lung Oropharnyx cancer (HCC) documented in this encounter [facility] note* Diagnosis Oropharnyx cancer (HCC) Pre-op evaluation- Primary Preoperative examination, unspecified 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 Former smoker Personal history of tobacco use, presenting hazards to health Hypothyroidism, unspecified type Adrenal insufficiency (HCC) Glucocorticoid deficiency Primary hypertension Unspecified essential hypertension Hyperlipidemia, unspecified hyperlipidemia type Stage 3 chronic kidney disease, unspecified whether stage 3a or 3b CKD (HCC) documented in this encounter [facility] note* Diagnosis Pre-op evaluation- Primary Preoperative examination, unspecified 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 Former smoker Personal history of tobacco use, presenting hazards to health Hypothyroidism, unspecified type Adrenal insufficiency (HCC) Glucocorticoid deficiency Primary hypertension Unspecified essential hypertension Hyperlipidemia, unspecified hyperlipidemia type Stage 3 chronic kidney disease, unspecified whether stage 3a or 3b CKD (HCC) Neoplasm of lung- Primary Neoplasm of unspecified nature of respiratory system documented in this encounter [facility] note* Diagnosis Pre-op evaluation- Primary Preoperative examination, unspecified 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 Former smoker Personal history of tobacco use, presenting hazards to health Hypothyroidism, unspecified type Adrenal insufficiency (HCC) Glucocorticoid deficiency Primary hypertension Unspecified essential hypertension Hyperlipidemia, unspecified hyperlipidemia type Stage 3 chronic kidney disease, unspecified whether stage 3a or 3b CKD (HCC) 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) Secondary malignant neoplasm of lung [facility] Diagnosis 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- Primary Preoperative examination, unspecified 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 Former smoker Personal history of tobacco use, presenting hazards to health Hypothyroidism, unspecified type Adrenal insufficiency (HCC) Glucocorticoid deficiency Primary hypertension Unspecified essential hypertension Hyperlipidemia, unspecified hyperlipidemia type Stage 3 chronic kidney disease, unspecified whether stage 3a or 3b CKD (HCC) Oropharnyx cancer (HCC)- Primary [facility] Diagnosis Pre-op evaluation- Primary Preoperative examination, unspecified 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 Former smoker Personal history of tobacco use, presenting hazards to health Hypothyroidism, unspecified type Adrenal insufficiency (HCC) Glucocorticoid deficiency Primary hypertension Unspecified essential hypertension Hyperlipidemia, unspecified hyperlipidemia type Stage 3 chronic kidney disease, unspecified whether stage 3a or 3b CKD (HCC) 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 Adrenal insufficiency (HCC) Glucocorticoid deficiency Malaise and fatigue Other malaise and fatigue documented [facility] Diagnosis Pre-op evaluation- Primary Preoperative examination, unspecified 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 Former smoker Personal history of tobacco use, presenting hazards to health Hypothyroidism, unspecified type Adrenal insufficiency (HCC) Glucocorticoid deficiency Primary hypertension Unspecified essential hypertension Hyperlipidemia, unspecified hyperlipidemia type Stage 3 chronic kidney disease, unspecified whether stage 3a or 3b CKD (HCC) Acquired hypothyroidism- Primary Unspecified hypothyroidism Abnormal FSH level Unspecified endocrine disorder Abnormal LH level Unspecified endocrine disorder [facility] Diagnosis 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) [facility]- Primary Preoperative examination, unspecified 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 Former smoker Personal history of tobacco use, presenting hazards to health Hypothyroidism, unspecified type Adrenal insufficiency (HCC) Glucocorticoid deficiency Primary hypertension Unspecified essential hypertension Hyperlipidemia, unspecified hyperlipidemia type Stage 3 chronic kidney disease, unspecified whether stage 3a or 3b CKD (HCC) 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 [facility] Diagnosis Pre-op evaluation- Primary Preoperative examination, unspecified 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 Former smoker Personal history of tobacco use, presenting hazards to health Hypothyroidism, unspecified type Adrenal insufficiency (HCC) Glucocorticoid deficiency Primary hypertension Unspecified essential hypertension Hyperlipidemia, unspecified hyperlipidemia type Stage 3 chronic kidney disease, unspecified whether stage 3a or 3b CKD (HCC) Oropharnyx cancer (HCC)- Primary [facility] Diagnosis 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 [facility] Diagnosis Pre-op evaluation- Primary Preoperative examination, unspecified 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 Former smoker Personal history of tobacco use, presenting hazards to health Hypothyroidism, unspecified type Adrenal insufficiency (HCC) Glucocorticoid deficiency Primary hypertension Unspecified essential hypertension Hyperlipidemia, unspecified hyperlipidemia type Stage 3 chronic kidney disease, unspecified whether stage 3a or 3b CKD (HCC) 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 Secondary malignant neoplasm of other specified sites 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) Secondary malignant neoplasm of lung [facility] Diagnosis Pre-op evaluation- Primary Preoperative examination, unspecified 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 Former smoker Personal history of tobacco use, presenting hazards to health Hypothyroidism, unspecified type Adrenal insufficiency (HCC) Glucocorticoid deficiency Primary hypertension Unspecified essential hypertension Hyperlipidemia, unspecified hyperlipidemia type Stage 3 chronic kidney disease, unspecified whether stage 3a or 3b CKD (HCC) Neoplasm of lung Neoplasm of unspecified nature of respiratory system [facility] Diagnosis 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 [facility]- Primary Preoperative examination, unspecified 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 Former smoker Personal history of tobacco use, presenting hazards to health Hypothyroidism, unspecified type Adrenal insufficiency (HCC) Glucocorticoid deficiency Primary hypertension Unspecified essential hypertension Hyperlipidemia, unspecified hyperlipidemia type Stage 3 chronic kidney disease, unspecified whether stage 3a or 3b CKD (HCC) 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 Encounter for immunotherapy documented in this encounter [facility] note* Diagnosis Pre-op evaluation- Primary Preoperative examination, unspecified 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 Former smoker Personal history of tobacco use, presenting hazards to health Hypothyroidism, unspecified type Adrenal insufficiency (HCC) Glucocorticoid deficiency Primary hypertension Unspecified essential hypertension Hyperlipidemia, unspecified hyperlipidemia type Stage 3 chronic kidney disease, unspecified whether stage 3a or 3b CKD (HCC) Oropharnyx cancer (HCC)- Primary documented in this encounter [facility] note* Diagnosis Pre-op evaluation- Primary Preoperative examination, unspecified 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 Former smoker Personal history of tobacco use, presenting hazards to health Hypothyroidism, unspecified type Adrenal insufficiency (HCC) Glucocorticoid deficiency Primary hypertension Unspecified essential hypertension Hyperlipidemia, unspecified hyperlipidemia type Stage 3 chronic kidney disease, unspecified whether stage 3a or 3b CKD (HCC) 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 Secondary malignant neoplasm of lung Oropharnyx cancer (HCC) documented in this encounter [facility] note* Diagnosis Pre-op evaluation- Primary Preoperative examination, unspecified 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 Former smoker Personal history of tobacco use, presenting hazards to health Hypothyroidism, unspecified type Adrenal insufficiency (HCC) Glucocorticoid deficiency Primary hypertension Unspecified essential hypertension Hyperlipidemia, unspecified hyperlipidemia type Stage 3 chronic kidney disease, unspecified whether stage 3a or 3b CKD (HCC) Oropharnyx cancer (HCC)- Primary documented in this encounter [facility] note* Diagnosis Pre-op evaluation- Primary Preoperative examination, unspecified 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 Former smoker Personal history of tobacco use, presenting hazards to health Hypothyroidism, unspecified type Adrenal insufficiency (HCC) Glucocorticoid deficiency Primary hypertension Unspecified essential hypertension Hyperlipidemia, unspecified hyperlipidemia type Stage 3 chronic kidney disease, unspecified whether stage 3a or 3b CKD (HCC) 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 [facility] Diagnosis Pre-op evaluation- Primary Preoperative examination, unspecified 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 Former smoker Personal history of tobacco use, presenting hazards to health Hypothyroidism, unspecified type Adrenal insufficiency (HCC) Glucocorticoid deficiency Primary hypertension Unspecified essential hypertension Hyperlipidemia, unspecified hyperlipidemia type Stage 3 chronic kidney disease, unspecified whether stage 3a or 3b CKD (HCC) Adrenal insufficiency (HCC)- Primary Glucocorticoid deficiency Acquired hypothyroidism Unspecified hypothyroidism Gastroesophageal reflux disease, unspecified whether esophagitis present [facility] Diagnosis Pre-op evaluation- Primary Preoperative examination, unspecified 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 Former smoker Personal history of tobacco use, presenting hazards to health Hypothyroidism, unspecified type Adrenal insufficiency (HCC) Glucocorticoid deficiency Primary hypertension Unspecified essential hypertension Hyperlipidemia, unspecified hyperlipidemia type Stage 3 chronic kidney disease, unspecified whether stage 3a or 3b CKD (HCC) Gastroesophageal reflux disease, unspecified whether esophagitis present [facility] Diagnosis Pre-op evaluation- Primary Preoperative examination, unspecified 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 Former smoker Personal history of tobacco use, presenting hazards to health Hypothyroidism, unspecified type Adrenal insufficiency (HCC) Glucocorticoid deficiency Primary hypertension Unspecified essential hypertension Hyperlipidemia, unspecified hyperlipidemia type Stage 3 chronic kidney disease, unspecified whether stage 3a or 3b CKD (HCC) 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 Adrenal insufficiency (HCC) Glucocorticoid deficiency Malaise and fatigue Other malaise and fatigue [facility] Diagnosis Pre-op evaluation- Primary Preoperative examination, unspecified 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 Former smoker Personal history of tobacco use, presenting hazards to health Hypothyroidism, unspecified type Adrenal insufficiency (HCC) Glucocorticoid deficiency Primary hypertension Unspecified essential hypertension Hyperlipidemia, unspecified hyperlipidemia type Stage 3 chronic kidney disease, unspecified whether stage 3a or 3b CKD (HCC) Malignant neoplasm of unspecified part of unspecified bronchus or lung (HCC)- Primary [facility] Diagnosis Pre-op evaluation- Primary Preoperative examination, unspecified 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 Former smoker Personal history of tobacco use, presenting hazards to health Hypothyroidism, unspecified type Adrenal insufficiency (HCC) Glucocorticoid deficiency Primary hypertension Unspecified essential hypertension Hyperlipidemia, unspecified hyperlipidemia type Stage 3 chronic kidney disease, unspecified whether stage 3a or 3b CKD (HCC) 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 Secondary malignant neoplasm of lung Oropharnyx cancer (HCC) [facility] Diagnosis Pre-op evaluation- Primary Preoperative examination, unspecified 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 Former smoker Personal history of tobacco use, presenting hazards to health Hypothyroidism, unspecified type Adrenal insufficiency (HCC) Glucocorticoid deficiency Primary hypertension Unspecified essential hypertension Hyperlipidemia, unspecified hyperlipidemia type Stage 3 chronic kidney disease, unspecified whether stage 3a or 3b CKD (HCC) Secondary malignant neoplasm of chest wall (HCC) Secondary malignant neoplasm of other specified sites 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) Secondary malignant neoplasm of lung [facility] Diagnosis Pre-op evaluation- Primary Preoperative examination, unspecified 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 Former smoker Personal history of tobacco use, presenting hazards to health Hypothyroidism, unspecified type Adrenal insufficiency (HCC) Glucocorticoid deficiency Primary hypertension Unspecified essential hypertension Hyperlipidemia, unspecified hyperlipidemia type Stage 3 chronic kidney disease, unspecified whether stage 3a or 3b CKD (HCC) 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 Encounter for immunotherapy Adrenal insufficiency (HCC) Glucocorticoid deficiency Oropharnyx cancer (HCC) documented [facility] this encounter [facility] Diagnosis Pre-op evaluation- Primary Preoperative examination, unspecified 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 Former smoker Personal history of tobacco use, presenting hazards to health Hypothyroidism, unspecified type Adrenal insufficiency (HCC) Glucocorticoid deficiency Primary hypertension Unspecified essential hypertension Hyperlipidemia, unspecified hyperlipidemia type Stage 3 chronic kidney disease, unspecified whether stage 3a or 3b CKD (HCC) Oropharnyx cancer (HCC)- Primary [facility] this [facility] Diagnosis Pre-op evaluation- Primary Preoperative examination, unspecified 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 Former smoker Personal history of tobacco use, presenting hazards to health Hypothyroidism, unspecified type Adrenal insufficiency (HCC) Glucocorticoid deficiency Primary hypertension Unspecified essential hypertension Hyperlipidemia, unspecified hyperlipidemia type Stage 3 chronic kidney disease, unspecified whether stage 3a or 3b CKD (HCC) 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 Adrenal insufficiency (HCC) Glucocorticoid deficiency Malaise and fatigue Other malaise and fatigue documented in this encounter [facility] note* Diagnosis 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 documented in this encounter [facility] note* Diagnosis Pre-op evaluation- Primary Preoperative examination, unspecified 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 Former smoker Personal history of tobacco use, presenting hazards to health Hypothyroidism, unspecified type Adrenal insufficiency (HCC) Glucocorticoid deficiency Primary hypertension Unspecified essential hypertension Hyperlipidemia, unspecified hyperlipidemia type Stage 3 chronic kidney disease, unspecified whether stage 3a or 3b CKD (HCC) Acquired hypothyroidism- Primary Unspecified hypothyroidism Abnormal FSH level Unspecified endocrine disorder Abnormal LH level Unspecified endocrine disorder documented in this encounter [facility] note* Diagnosis Pre-op evaluation- Primary Preoperative examination, unspecified 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 Former smoker Personal history of tobacco use, presenting hazards to health Hypothyroidism, unspecified type Adrenal insufficiency (HCC) Glucocorticoid deficiency Primary hypertension Unspecified essential hypertension Hyperlipidemia, unspecified hyperlipidemia type Stage 3 chronic kidney disease, unspecified whether stage 3a or 3b CKD (HCC) 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 Personal history of irradiation Personal history of irradiation, presenting hazards to health Subacute cough Cough Oral phase dysphagia Dysphagia, oral phase documented in this encounter [facility] note* Diagnosis Pre-op evaluation- Primary Preoperative examination, unspecified 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 Former smoker Personal history of tobacco use, presenting hazards to health Hypothyroidism, unspecified type Adrenal insufficiency (HCC) Glucocorticoid deficiency Primary hypertension Unspecified essential hypertension Hyperlipidemia, unspecified hyperlipidemia type Stage 3 chronic kidney disease, unspecified whether stage 3a or 3b CKD (HCC) Oropharnyx cancer (HCC)- Primary documented in this encounter [facility] note* Diagnosis Pre-op evaluation- Primary Preoperative examination, unspecified 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 Former smoker Personal history of tobacco use, presenting hazards to health Hypothyroidism, unspecified type Adrenal insufficiency (HCC) Glucocorticoid deficiency Primary hypertension Unspecified essential hypertension Hyperlipidemia, unspecified hyperlipidemia type Stage 3 chronic kidney disease, unspecified whether stage 3a or 3b CKD (HCC) Malignant neoplasm of unspecified part of unspecified bronchus or lung (HCC) Malaise and fatigue Other malaise and fatigue 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 Adrenal insufficiency (HCC) Glucocorticoid deficiency documented in this encounter [facility] Diagnosis Pre-op evaluation- Primary Preoperative examination, unspecified 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 Former smoker Personal history of tobacco use, presenting hazards to health Hypothyroidism, unspecified type Adrenal insufficiency (HCC) Glucocorticoid deficiency Primary hypertension Unspecified essential hypertension Hyperlipidemia, unspecified hyperlipidemia type Stage 3 chronic kidney disease, unspecified whether stage 3a or 3b CKD (HCC) Malignant neoplasm of unspecified part of unspecified bronchus or lung (HCC)- Primary documented in this encounter [facility] course Narrative No data available for this section [facility] Discharge instructions No data available for this section [facility] note No data available for this section [facility] [place] Reason for referral (narrative)* Diagnostic Procedure Only (Routine) - Pending Review Specialty Diagnoses / Procedures Referred By Contkaryn t Referred To Contact MOLECULAR & FUNCTIONAL IMAGING Diagnoses Oropharnyx cancer (HCC) Procedures NM PET/CT SKULL-THIGH SUBSEQUENT PET IMAGING CT ATTENUATION SKULL BASE MID-THIGH Tremaine Gomez PA-C [address] [place] [address] [place] [address] Molecular & Functional Imaging [address] [place] [address] Referral ID Status Reason Start Date Expiration Date Visits Requested Visits Authorized [id number] Pending Review Auto-Generat ed Referral 03/31/2023 02/19/2024 1 1 [facility] for referral (narrative)* Diagnostic Procedure Only (Routine) - Additional Clinical Info Needed Specialty Diagnoses / Procedures Referred By Contac t Referred To Contact MOLECULAR & FUNCTIONAL IMAGING Diagnoses Neoplasm of lung Procedures NM PET/CT SKULL-THIGH INITIAL PET IMAGING CT ATTENUATION SKULL BASE MID-THIGH Elizabeth Borjas MD [address] [place] [address] Molecular & Functional Imaging [address] [id number] Referral ID Status Reason Start Date Expiration Date Visits Requested Visits Authorized [id number] Additional Clinical Info Needed Auto-Generat ed Referral 10/05/2024 1 1 [facility] for referral (narrative)* Outpatient Procedure (Routine) - New Request Specialty Diagnoses / Procedures [facility] To [facility] Diagnoses Adenopathy Procedures ECG COMPLETE ECG ROUTINE ECG W/LEAST 12 LDS W/I&R Ras Starr MD [address] [place] [address] [facility] [address] [place] [address] Referral ID Status Reason Start Date Expiration Date Visits Requested Visits Authorized [id number] New Request Auto-Generat ed Referral 05/13/2024 05/13/2025 1 1 [facility] for referral (narrative)* Outpatient Procedure (Routine) - New Request Specialty Diagnoses / Procedures [facility] Referred To Contact [facility] Diagnoses 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) Procedures LUNG DIFFUSION CAPACITY (DLCO) [place] [address] [place] [address] [facility] [address] [place] [address] Referral ID Status Reason Start Date Expiration Date Visits Requested Visits Authorized [id number] New Request Auto-Generat ed Referral 06/11/2024 07/11/2025 1 1 * Outpatient Procedure (Routine) - New Request Specialty Diagnoses / Procedures Referred By Jose glez Referred To Contact [facility] Diagnoses 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) Procedures SPIROMETRY BASELINE ONLY SPMTRY W/VC EXPIRATORY MARCUS W/[place] [address] [place] [address] [facility] [address] [place] [address] Referral ID Status Reason Start Date Expiration Date Visits Requested Visits Authorized [id number] New Request Auto-Generat ed Referral 06/11/2024 07/11/2025 1 1 [facility] for referral (narrative)* Diagnostic Procedure Only (Routine) - Closed Specialty Diagnoses / Procedures [facility] Referred To Contact MOLECULAR & FUNCTIONAL IMAGING Diagnoses Neoplasm of lung Procedures NM PET/CT SKULL-THIGH INITIAL PET IMAGING CT ATTENUATION SKULL BASE MID-THIGH Elizabeth Borjas MD [address] [place] [address] Molecular & Functional Imaging [address] [place] [address] Referral ID Status Reason Start Date Expiration Date V isits Requested Visits Authorized [id number] Closed Auto-Generate d Referral 09/07/2023 10/06/2023 1 1 [facility] for referral (narrative)* Diagnostic Procedure Only (Routine) - Closed Specialty Diagnoses / Procedures [facility] Referred To Contact MOLECULAR & FUNCTIONAL IMAGING Diagnoses Oropharnyx cancer (HCC) Procedures NM PET/CT SKULL-THIGH SUBSEQUENT PET IMAGING CT ATTENUATION SKULL BASE MID-THIGH Tremaine Gomez, NICANOR [address] [place] [address] Molecular & Functional Imaging [address] [id number] Referral ID Status Reason Start Date Expiration Date V isits Requested Visits Authorized [id number] Closed Auto-Generate d Referral 03/31/2023 04/29/2023 1 1 [facility] for referral (narrative)* Diagnostic Procedure Only (Routine) - Closed Specialty Diagnoses / Procedures [facility] Referred To Contact MOLECULAR & FUNCTIONAL IMAGING Diagnoses Oropharnyx cancer (HCC) Procedures NM PET/CT SKULL-THIGH INITIAL PET IMAGING CT ATTENUATION SKULL BASE MID-THIGH Nino Ivy MD [address] [place] [address] Molecular & Functional Imaging [address] [place] [address] Referral ID Status Reason Start Date Expiration Date V isits Requested Visits Authorized [id number] Closed Auto-Generate d Referral 10/28/2022 11/26/2022 1 1 [facility] for visit Narrative* Outpatient Procedure (Routine) - Closed Specialty Diagnoses / Procedures [facility] Diagnoses Adenopathy Procedures ECG COMPLETE ECG ROUTINE ECG W/LEAST 12 LDS W/I&R Ras Starr MD [address] [place] [address] [facility] [address] [place] [address] Referral ID Status Reason Start Date Expiration Date V isits Requested Visits Authorized [id number] Closed Auto-Generate d Referral 05/13/2024 05/13/2025 1 1 [facility] for visit Narrative* Donalds Prior Authorization (Routine) - Authorized Specialty Diagnoses / Procedures [facility] Referred To Contact Diagnoses Oropharnyx cancer (HCC) Procedures INJ PEMBROLIZUMAB Elizabeth Borjas MD [address] [place] [address] [place] [address] Phone: tel: fax: Hematology/Oncology [address] [place] [address] [place] [address] Phone: tel: fax: Referral ID Status Reason Start Date Expiration Date V isits Requested Visits Authorized [id number] Authorized 12/14/2023 10/08/2025 99 99 [facility] N[facility]* MRI/CT (Routine) - Closed Specialty Diagnoses / Procedures Referred By Contac t Referred To Contact CT IMAGING 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) Procedures CT ABDOMEN W IVCON CT ABDOMEN W/CONTRAST Tayla Ellsworth MD [address] [place] [address] Phone: tel: fax: [facility] [place] [address] Referral ID Status Reason Start Date Expiration Date V isits Requested Visits Authorized [id number] Closed Auto-Generate d Referral 02/20/2025 04/06/2025 2 2 [facility] Reason for Referral Specialty Diagnoses / Procedures Referred By Contac t Referred To Contact CT IMAGING 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) Procedures CT ABDOMEN W IVCON CT ABDOMEN W/CONTRAST Tayla Ellsworth MD [address] [place], [place] [id number] [facility] [place] [address] Referral ID Status Reason Start Date Expiration Date Visits Requested Visits Authorized [id number] Pending Review Auto-Generat ed Referral 10/31/2024 11/30/2025 1 1 Specialty Diagnoses / Procedures Referred By Contac t Referred To Contact CT IMAGING Diagnoses Secondary malignant neoplasm of chest wall (HCC) Procedures CT CHEST W IVCON DIAGNOSTIC COMPUTED TOMOGRAPHY THORAX W/CONTRAST Tayla Ellsworth MD [address] [place], [place] [address] Ct [facility] Referral ID Status Reason Start Date Expiration Date Visits Requested Visits Authorized [id number] Authorized Auto-Generat ed Referral 10/31/2024 11/30/2025 1 1 Specialty Diagnoses / Procedures Referred By Contac t Referred To Contact CT IMAGING Diagnoses Neoplasm of lung Procedures CT CHEST WO IVCON DIAGNOSTIC COMPUTED TOMOGRAPHY THORAX W/[place] [id number] [facility] [place] [address] Referral ID Status Reason Start Date Expiration Date Visits Requested Visits Authorized [id number] Authorized Auto-Generat ed Referral 07/05/2024 08/04/2025 1 1 Specialty Diagnoses / Procedures Referred By Contac t Referred To Contact Diagnoses 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) Procedures CT SIM PLANNING RADIATION ONCOLOGY THER RAD SIMULAJ-AIDED [place]ELD [place] [address] [place] [id number] Referral ID Status Reason Start Date Expiration Date Visits Requested Visits Authorized [id number] New Request PCP Requested Referral 06/14/2024 09/11/2024 1 1 Specialty Diagnoses / Procedures Referred By Contac t Referred To Contact Radiation Oncology Diagnoses Oropharnyx cancer (HCC) Procedures RAD/ONC CONSULT OFFICE/OUTPATIENT [facility] 60 MINUTES Elizabeth Borjas MD [address] [place] [address] Referral ID Status Reason Start Date Expiration Date Visits Requested Visits Authorized [id number] Authorized PCP Requested Referral 05/08/2024 05/08/2025 1 1 Specialty Diagnoses / Procedures Referred By Contac t Referred To Contact CT IMAGING Diagnoses Pulmonary nodule Preoperative examination Procedures CT CHEST WO IVCON DIAGNOSTIC COMPUTED TOMOGRAPHY THORAX W/O CNTRST Elke Alexander MD [phone] [facility] Referral ID Status Reason Start Date Expiration Date Visits Requested Visits Authorized [id number] Pending Review Auto-Generat ed Referral 09/01/2024 1 1 Specialty Diagnoses / Procedures Referred By Contac t Referred To Contact [facility] Diagnoses Preoperative examination Procedures ECG COMPLETE ECG ROUTINE ECG W/LEAST 12 LDS W/I&R Elke Alexander MD [address] [place] [address] [facility] [place] [address] [place] [address] Referral ID Status Reason Start Date Expiration Date Visits Requested Visits Authorized [id number] Pending Review Auto-Generat ed Referral 3 08/02/2024 1 1 Specialty Diagnoses / Procedures Referred By Contac t Referred To Contact MR IMAGING Diagnoses Encounter for observation for other suspected diseases and conditions ruled out Procedures MRI PROSTATE WO/W IVCON MRI PELVIS W/O & W/CONTRAST MATERIAL Nino Ivy MD [address] [place] [address] [place] [address] Mr Imaging Referral ID Status Reason Start Date Expiration Date Visits Requested Visits Authorized [id number] Pending Review Auto-Generat ed Referral 04/18/2023 05/17/2024 1 1 Specialty Diagnoses / Procedures Referred By Contac t Referred To Contact CT IMAGING Diagnoses Oropharnyx cancer (HCC) Procedures CT CHEST WO IVCON DIAGNOSTIC COMPUTED TOMOGRAPHY THORAX W/O CNTRST Elizabeth Borjas MD [address] [place] [address] [address] [address] Imaging Referral ID Status Reason Start Date Expiration Date Visits Requested Visits Authorized [id number] Authorized Auto-Generat ed Referral 3 05/17/2024 1 1 Specialty Diagnoses / Procedures Referred By Contac t Referred To Contact Urology Diagnoses Elevated prostate specific antigen (PSA) Procedures CONSULT TO UROLOGY OFFICE/OUTPATIENT NEW HIGH MDM 60-74 MINUTES Tremaine Gomez PA-C [address] [place] [address] [place] [address] Referral ID Status Reason Start Date Expiration Date Visits Requested Visits Authorized [id number] Authorized PCP Requested Referral 01/20/2023 01/20/2024 1 1 Specialty Diagnoses / Procedures Referred By Contac t Referred To Contact Diagnoses Oropharnyx cancer (HCC) Procedures CT SIM PLANNING RADIATION ONCOLOGY THER RAD SIMULAJ-AIDED FIELD SETTING COMPLEX Nino Ivy MD [address] [place] [address] [place] [address] Referral ID Status Reason Start Date Expiration Date Visits Requested Visits Authorized [id number] Pending Review PCP Requested Referral 11/09/2022 02/01/2023 1 1 Specialty Diagnoses / Procedures Referred By Contac t Referred To Contact Oncology Diagnoses Oropharnyx cancer (HCC) Procedures CONSULT TO ONCOLOGY OFFICE/OUTPATIENT [facility] 60-74 MINUTES Nino Ivy MD [address] [place] [address] [place] [address] Referral ID Status Reason Start Date Expiration Date Visits Requested Visits Authorized [id number] Authorized PCP Requested Referral 10/27/2022 10/27/2023 1 1 Specialty Diagnoses / Procedures Referred By Contac t Referred To Contact MOLECULAR & FUNCTIONAL IMAGING Diagnoses Oropharnyx cancer (HCC) Procedures NM PET/CT SKULL-THIGH INITIAL PET IMAGING CT ATTENUATION SKULL BASE MID-THIGH Nino Ivy MD [address] [place] [address] [place] [address] Molecular & Functional Imaging [address] [place] [address] Referral ID Status Reason Start Date Expiration Date Visits Requested Visits Authorized [id number] Additional Clinical Info Needed Auto-Generat ed Referral 10/27/2022 11/26/2023 1 1 Medications Administered Section Inactive Administered Medications - up to 3 most recent administrations Medication Order MAR Action Action Date Dose Rate Site CISplatin 86 mg in NaCl 0.9% 1,136 mL (PLATINOL) 86 mg (40 mg/m2 2.15 m2 Treatment Plan BSA from Recorded weight), INTRAVENOUS, Administer over 1 Hours, ONCE, 1 dose, On 11/21/22 at 1100, Approx Total Volume: mL EXP: [...] over 1 Hours, ONCE, 1 dose, On Mon12/15/22 at 1430 New Bag/Syringe/Bottle 12/15/2022 2:20 PM [...] History Records FoundNo Family History Records Found No data available for this section No Family History Records Found No data available for this section No Family History Records FoundNo Family History Records Found Advance Directives No Advanced Directives Records Found Advance Directive Response Recorded Date/ Time Advance Directives No May 25, 2020 8:06am Chief Complaint and Reason for Visit Chief Complaint Z03.89 Chief Complaint G44.53 Additional Source Comments Care Team (unrecognized sect ion and content) Can Stacker Relationship Specialty Start Date End Date Julian Burton MD [address] [phone] PCP - General Family Medicine 10/26/22 Can Stacker Relationship Specialty Start Date End Date Julian Burton MD [address] [phone] PCP - General Family Medicine 10/26/22 Can Stacker Relationship Specialty Start Date End Date Julian Burton MD [address] [place] [address] PCP - General Family Medicine 10/26/22 Can Stacker Relationship Specialty Start Date End Date Julian Burton MD [address] [id number] PCP - General Family Medicine 10/26/22 Can Stacker Relationship Specialty Start Date End Date Julian Burton MD [address] [facility] [place] [address] PCP - General Family Medicine 10/26/22 Can Stacker Relationship Specialty Start Date End Date Julian Burton MD [address] [facility] [place] [address] PCP - General Family Medicine 10/26/22 Can Stacker Relationship Specialty Start Date End Date Julian Burton MD [address] [facility] [place] [address] PCP - General Family Medicine 10/26/22 Can Stacker Relationship Specialty Start Date End Date Julian Burton MD [address] [facility] [place] [address] PCP - General Family Medicine 10/26/22 Yadi Simms, RD [address] [place] [address] Registered Dietitian Nutrition 11/04/22 Can Stacker Relationship Specialty Start Date End Date Julian Burton MD [address] [facility] [place] [address] PCP - General Family Medicine 10/26/22 Yadi Simms, RD [address] [place] [address] Registered Dietitian Nutrition 11/04/22 Can Stacker Relationship Specialty Start Date End Date Julian Burton MD [address] [facility] [place] [address] PCP - General Family Medicine 10/26/22 Yadi Simms, RD [address] [place] [address] Registered Dietitian Nutrition 11/04/22 Can Stacker Relationship Specialty Start Date End Date Julian Burton MD [address] [facility] [place] [address] PCP - General Family Medicine 10/26/22 Yadi Simsm, APRIL [address] [facility] [address] [address] Registered Dietitian Nutrition 11/04/22 Can Stacker Relationship Specialty Start Date End Date Julian Burton MD [address] [facility] [place] [address] PCP - General Family Medicine 10/26/[address] [facility] [place] [address] Registered Dietitian Nutrition 11/04/22 Chiqui Modi, RN [address] [facility] [place] [address] Specialty Securities Dealer Hematology/Oncology 11/15/22 Elizabeth Borjas MD [address] [facility] [place] [address] Physician Hematology/Oncology 11/15/22 Tremaine Gomez, PA-C [address] [facility] [place] [address] Physician Inshore Undersea Warfare Officer Hematology/Oncology 11/15/22 Can Stacker Relationship Specialty Start Date End Date Julian Burton MD [address] [facility] [place] [address] PCP - General Family Medicine 10/26/22 Yadi Simms, APRIL [address] [facility] [place] [address] Registered Dietitian Nutrition 11/04/22 Chiqui Modi, RN [address] [facility] ([place] [address] Specialty Securities Dealer Hematology/Oncology 11/15/22 Elizabeth Borjas MD [address] [place] [address] Physician Hematology/Oncology 11/15/22 Tremaine Gomez PA-C [address] [facility] [address] Physician Inshore Undersea Warfare Officer Hematology/Oncology 11/15/22 Can Stacker Relationship Specialty Start Date End Date Julian Burton MD [address] [place] [address] PCP - General Family Medicine 10/26/22 Yadi Simms, APRIL [address] [place] [place] [address] Registered Dietitian Nutrition 11/04/22 Chiqui Modi, RN [address] [place] [address] Specialty Securities Dealer Hematology/Oncology 11/15/22 Elizabeth Borjas MD [address] [place] [address] Physician Hematology/Oncology 11/15/22 Tremaine Gomez PA-C [address] [place] [address] Physician Inshore Undersea Warfare Officer Hematology/Oncology 11/15/22 Can Stacker Relationship Specialty Start Date End Date Julian Burton MD [address] [place] [address] PCP - General Family Medicine 10/26/22 Yadi Simms, APRIL [address] [place] [address] Registered Dietitian Nutrition 11/04/22 Chiqui Modi, RN [address] [place] [address] Specialty Securities Dealer Hematology/Oncology 11/15/22 Elizabeth Borjas MD [address] [place] [address] Physician Hematology/Oncology 11/15/22 Tremaine Gomez PA-C [address] [facility] [place] [address] Physician Inshore Undersea Warfare Officer Hematology/Oncology 11/15/22 July Wiley, ROB Truck Sales Representative 11/21/22 Can Stacker Relationship Specialty Start Date End Date Julian Burton MD [address] [place] [address] PCP - General Family Medicine 10/26/22 Yadi Simms, APRIL [address] [facility] [place] [address] Registered Dietitian Nutrition 11/04/22 Chiqui Modi, RN [address] [facility] ([place] [address] Specialty Securities Dealer Hematology/Oncology 11/15/22 Elizabeth Borjas MD [address] [place] [address] Physician Hematology/Oncology 11/15/22 Tremaine Gomez PA-C [address] [facility] [place] [address] Physician Inshore Undersea Warfare Officer Hematology/Oncology 11/15/22 July Wiley, [employer] Truck Sales Representative 11/21/22 Can Stacker Relationship Specialty Start Date End Date Julian Burton MD [address] [place] [address] PCP - General Family Medicine 10/26/[address] [facility] [place] [address] Registered Dietitian Nutrition 11/04/22 Chiqui Modi, RN [address] [facility] ([place] [address] Specialty Securities Dealer Hematology/Oncology 11/15/22 Elizabeth Borjas MD [address] [place] [address] Physician Hematology/Oncology 11/15/22 Tremaine Gomez PA-C [address] [place] [address] Physician Inshore Undersea Warfare Officer Hematology/Oncology 11/15/22 July Wiley, ROB Truck Sales Representative 11/21/22 Can Stacker Relationship Specialty Start Date End Date Julian Burton MD [address] [place] [address] PCP - General Family Medicine 10/26/[address] [place] [address] Registered Dietitian Nutrition 11/04/22 Chiqui Modi RN [address] [place] [address] Specialty Securities Dealer Hematology/Oncology 11/15/22 Elizabeth Borjas MD [address] [place] [address] Physician Hematology/Oncology 11/15/22 Tremaine Gomez PA-C [address] [place] [address] Physician Inshore Undersea Warfare Officer Hematology/Oncology 11/15/22 July Wiley, [employer] Truck Sales Representative 11/21/22 Can Stacker Relationship Specialty Start Date End Date Julian Burton MD [address] [facility] [place] [address] PCP - General Family Medicine 10/26/[address] [place] [address] Registered Dietitian Nutrition 11/04/22 Chiqui Modi RN [address] [place] [address] Specialty Securities Dealer Hematology/Oncology 11/15/22 Elizabeth Borjas MD [address] [facility] [place] [address] Physician Hematology/Oncology 11/15/22 Tremaine Gomez, OLIMPIAC [address] [facility] [place] [address] Physician Inshore Undersea Warfare Officer Hematology/Oncology 11/15/22 July Wiley, [employer] Truck Sales Representative 11/21/22 Can Stacker Relationship Specialty Start Date End Date Julian Burton MD [address] [place] [address] PCP - General Family Medicine 10/26/[address] [facility] [address] Registered Dietitian Nutrition 11/04/22 Chiqui Modi RN [address] [facility] [address] Specialty Securities Dealer Hematology/Oncology 11/15/22 Elizabeth Borjas MD [address] [place] [facility] [place] [address] Physician Hematology/Oncology 11/15/22 Tremaine Gomez PAAutumn [address] [facility] [address] Physician Inshore Undersea Warfare Officer Hematology/Oncology 11/15/22 July Wiley, [facility] Truck Sales Representative 11/21/22 Can Stacker Relationship Specialty Start Date End Date Julian Burton MD [address] [facility] [place] [address] PCP - General Family Medicine 10/26/[address] [facility] [address] Registered Dietitian Nutrition 11/04/22 Chiqui Modi RN [address] [place] [address] Specialty Securities Dealer Hematology/Oncology 11/15/22 Elizabeth Borjas MD [address] [place] [address] Physician Hematology/Oncology 11/15/22 Tremaine Gomez, PAMaguiC [address] [place] [address] Physician Inshore Undersea Warfare Officer Hematology/Oncology 11/15/22 July Wiley, [employer] Truck Sales Representative 11/21/22 Can Stacker Relationship Specialty Start Date End Date Julian Burton MD [address] [place] [address] PCP - General Family Medicine 10/26/[address] [place] [address] Registered Dietitian Nutrition 11/04/22 Chiqui Modi, RN [address] [place] [address] Specialty Securities Dealer Hematology/Oncology 11/15/22 Elizabeth Borjas MD [address] [place] [address] Physician Hematology/Oncology 11/15/22 Tremaine Gomez, PA-C [address] [place] [address] Physician Inshore Undersea Warfare Officer Hematology/Oncology 11/15/22 July Wiley LSW Truck Sales Representative 11/21/22 Can Stacker Relationship Specialty Start Date End Date Julian Burton MD [address] [place] [address] PCP - General Family Medicine 10/26/[address] [place] [address] Registered Dietitian Nutrition 11/04/22 Chiqui Modi RN [address] [place] [address] Specialty Securities Dealer Hematology/Oncology 11/15/22 Elizabeth Borjas MD [address] [place] [address] Physician Hematology/Oncology 11/15/22 Tremaine Gomez PA-C [address] [place] [address] Physician Inshore Undersea Warfare Officer Hematology/Oncology 11/15/22 July Wiley LSW Truck Sales Representative 11/21/22 Can Stacker Relationship Specialty Start Date End Date Julian Burton MD [address] [place] [address] PCP - General Family Medicine 10/26/[address] [place] [address] Registered Dietitian Nutrition 11/04/22 Chiqui Modi RN [address] [place] [address] Specialty Securities Dealer Hematology/Oncology 11/15/22 Elizabeth Borjas MD [address] [place] [address] Physician Hematology/Oncology 11/15/22 Tremaine Gomez, OLIMPIAC [address] [place] [place] [address] Physician Inshore Undersea Warfare Officer Hematology/Oncology 11/15/22 July Wiley LSW Truck Sales Representative 11/21/22 Can Stacker Relationship Specialty Start Date End Date Julian Burton MD [address] [place] [address] PCP - General Family Medicine 10/26/[address] [place] [address] Registered Dietitian Nutrition 11/04/22 Chiqui Modi, RN [address] [place] [place] [address] Specialty Securities Dealer Hematology/Oncology 11/15/22 Elizabeth Borjas MD [address] [place] [address] Physician Hematology/Oncology 11/15/22 Tremaine Gomez PA-C [address] [place] [address] Physician Inshore Undersea Warfare Officer Hematology/Oncology 11/15/22 July Wiley LSW Truck Sales Representative 11/21/22 Can Stacker Relationship Specialty Start Date End Date Julian Burton MD [address] [place] [address] PCP - General Family Medicine 10/26/22 Yadi Simms, APRIL [address] [place] [address] Registered Dietitian Nutrition 11/04/22 Chiqui Modi RN [address] [place] [address] Specialty Securities Dealer Hematology/Oncology 11/15/22 Elizabeth Borjas MD [address] [place] [address] Physician Hematology/Oncology 11/15/22 Tremaine Gomez, OLIMPIAC [address] [place] [address] Physician Inshore Undersea Warfare Officer Hematology/Oncology 11/15/22 July Wiley LSW Truck Sales Representative 11/21/22 Can Stacker Relationship Specialty Start Date End Date Julian Burton MD [address] [place] [address] PCP - General Family Medicine 10/26/22 Yadi Simms, APRIL [address] [place] [address] Registered Dietitian Nutrition 11/04/22 Chiqui Modi, RN [address] [place] [place] [address] Specialty Securities Dealer Hematology/Oncology 11/15/22 Elizabeth Borjas MD [address] [place] [address] Physician Hematology/Oncology 11/15/22 Tremaine Gomez, PA-C [address] [place] [address] Physician Inshore Undersea Warfare Officer Hematology/Oncology 11/15/22 July Wiley LSW Truck Sales Representative 11/21/22 Can Stacker Relationship Specialty Start Date End Date Julian Burton MD [address] [place] [address] PCP - General Family Medicine 10/26/22 Yadi Simms, APRIL [address] [place] [address] Registered Dietitian Nutrition 11/04/22 Chiqui Modi RN [address] [place] [address] Specialty Securities Dealer Hematology/Oncology 11/15/22 Elizabeth Borjas MD [address] [place] [address] Physician Hematology/Oncology 11/15/22 Tremaine Gomez, PA-C [address] [place] [address] Physician Inshore Undersea Warfare Officer Hematology/Oncology 11/15/22 July Wiley LSW Truck Sales Representative 11/21/22 Can Stacker Relationship Specialty Start Date End Date Julian Burton MD [address] [place] [address] PCP - General Family Medicine 10/26/22 Yadi Simms, APRIL [address] [place] [address] Registered Dietitian Nutrition 11/04/22 Chiqui Modi, RN [address] [place] [place] [address] Specialty Securities Dealer Hematology/Oncology 11/15/22 Elizabeth Borjas MD [address] [place] [address] Physician Hematology/Oncology 11/15/22 Tremaine Gomez, PA-C [address] [place] [address] Physician Inshore Undersea Warfare Officer Hematology/Oncology 11/15/22 July Wiley LSW Truck Sales Representative 11/21/22 Can Stacker Relationship Specialty Start Date End Date Julian Burton MD [address] [place] [address] PCP - General Family Medicine 10/26/22 Yadi Simms, APRIL [address] [place] [address] Registered Dietitian Nutrition 11/04/22 Chiqui Modi, RN [address] [place] [address] Specialty Securities Dealer Hematology/Oncology 11/15/22 Elizabeth Borjas MD [address] [place] [address] Physician Hematology/Oncology 11/15/22 Tremaine Gomez, PAMaguiC [address] [place] [address] Physician Inshore Undersea Warfare Officer Hematology/Oncology 11/15/22 July Wiley, ROB Truck Sales Representative 11/21/22 Can Stacker Relationship Specialty Start Date End Date Julian Burton MD [address] [place] [address] PCP - General Family Medicine 10/26/22 Yadi Simms, APRIL [address] [place] [address] Registered Dietitian Nutrition 11/04/22 Chiqui Modi, RN [address] [place] [place] [address] Specialty Securities Dealer Hematology/Oncology 11/15/22 Elizabeth Borjas MD [address] [place] [address] Physician Hematology/Oncology 11/15/22 Tremaine Gomez PA-C [address] [place] [address] Physician Inshore Undersea Warfare Officer Hematology/Oncology 11/15/22 July Wiley, ROB Truck Sales Representative 11/21/22 Can Stacker Relationship Specialty Start Date End Date Julian Burton MD [address] [facility] [place] [address] PCP - General Family Medicine 10/26/22 Yadi Simms, APRIL [address] [place] [address] Registered Dietitian Nutrition 11/04/22 Chiqui Modi RN [address] [place] [address] Specialty Securities Dealer Hematology/Oncology 11/15/22 Elizabeth Borjas MD [address] [place] [address] Physician Hematology/Oncology 11/15/22 Tremaine Gomez PA-C [address] [place] [address] Physician Inshore Undersea Warfare Officer Hematology/Oncology 11/15/22 July Wiley, ROB Truck Sales Representative 11/21/22 Can Stacker Relationship Specialty Start Date End Date Julian Burton MD [address] [facility] [place] [address] PCP - General Family Medicine 10/26/22 Yadi Simms, RD [address] [facility] [place] [address] Registered Dietitian Nutrition 11/04/22 Chiqui Modi, RN [address] [place] [address] Specialty Securities Dealer Hematology/Oncology 11/15/22 Elizabeth Borjas MD [address] [facility] [place] [address] Physician Hematology/Oncology 11/15/22 Tremaine Gomez PA-C [address] [facility] [address] Physician Inshore Undersea Warfare Officer Hematology/Oncology 11/15/22 July Wiley LSW Truck Sales Representative 11/21/22 Can Stacker Relationship Specialty Start Date End Date Julian Burton MD [address] [facility] [place] [address] PCP - General Family Medicine 10/26/22 Yadi Simms, RD [address] [facility] [place] [address] Registered Dietitian Nutrition 11/04/22 Chiqui Modi RN [address] [place] [address] Specialty Securities Dealer Hematology/Oncology 11/15/22 Elizabeth Borjas MD [address] [facility] [place] [address] Physician Hematology/Oncology 11/15/22 Tremaine Gomez PA-C [address] [facility] [address] Physician Inshore Undersea Warfare Officer Hematology/Oncology 11/15/22 July Wiley LSW Truck Sales Representative 11/21/22 Can Stacker Relationship Specialty Start Date End Date Julian Burton MD PCP - General Family Medicine 10/26/22 Yadi Simms, APRIL [address] [facility] [address] Registered Dietitian Nutrition 11/04/22 Chiqui Modi, RN [address] [place] [address] Specialty Securities Dealer Hematology/Oncology 11/15/22 Elizabeth Borjas MD [address] [facility] [place] [address] Physician Hematology/Oncology 11/15/22 Tremaine Gomez, PA-C [address] [facility] [address] Physician Inshore Undersea Warfare Officer Hematology/Oncology 11/15/22 July Wiley [employer] Truck Sales Representative 11/21/22 Can Stacker Relationship Specialty Start Date End Date Julian Burton MD PCP - General Family Medicine 10/26/[address] [facility] [address] Registered Dietitian Nutrition 11/04/22 Chiqui Modi, RN [address] [place] [address] Specialty Securities Dealer Hematology/Oncology 11/15/22 Elizabeth Borjas MD [address] [facility] [place] [address] Physician Hematology/Oncology 11/15/22 Tremaine Gomez, PA-C [address] [facility] [place] [address] Physician Inshore Undersea Warfare Officer Hematology/Oncology 11/15/22 July Wiley [employer] Truck Sales Representative 11/21/22 Can Stacker Relationship Specialty Start Date End Date Julian Burton MD PCP - General Family Medicine 10/26/22 Yadi Simms, APRIL [address] [facility] [address] [place], [place] [address] Registered Dietitian Nutrition 11/04/22 Chiqui Modi, RN [address] [place] [address] Specialty Securities Dealer Hematology/Oncology 11/15/22 Elizabeth Borjas MD [address] [facility] [place] [address] Physician Hematology/Oncology 11/15/22 Tremaine Gomez PAMaguiC [address] [place] [address] Physician Inshore Undersea Warfare Officer Hematology/Oncology 11/15/22 July Wiley, [employer] Truck Sales Representative 11/21/22 Can Stacker Relationship Specialty Start Date End Date Julian Burton MD PCP - General Family Medicine 10/26/22 Yadi Simms, APRIL [address] [place] [address] Registered Dietitian Nutrition 11/04/22 Chiqui Modi, RN [address] [place] [address] Specialty Securities Dealer Hematology/Oncology 11/15/22 Elizabeth Borjas MD [address] [facility] [place] [address] Physician Hematology/Oncology 11/15/22 Tremaine Gomez PAMaguiC [address] [place] [address] Physician Inshore Undersea Warfare Officer Hematology/Oncology 11/15/22 July Wiley, [employer] Truck Sales Representative 11/21/22 Can Stacker Relationship Specialty Start Date End Date Julian Burton MD PCP - General Family Medicine 10/26/[address] [place] [address] Registered Dietitian Nutrition 11/04/22 Chiqui Modi, RN [address] [place] [address] Specialty Securities Dealer Hematology/Oncology 11/15/22 Elizabeth Borjas MD [address] [place] [address] Physician Hematology/Oncology 11/15/22 Tremaine Gomez, PAMaguiC [address] [place] [address] Physician Inshore Undersea Warfare Officer Hematology/Oncology 11/15/22 July Wiley, [employer] Truck Sales Representative 11/21/22 Can Stacker Relationship Specialty Start Date End Date Julian Burton MD PCP - General Family Medicine 10/26/[address] [place] [address] Registered Dietitian Nutrition 11/04/22 Chiqui Modi, RN [address] [place] [address] Specialty Securities Dealer Hematology/Oncology 11/15/22 Elizabeth Borjas MD [address] [place] [address] Physician Hematology/Oncology 11/15/22 Tremaine Gomez PAMaguiC [address] [place] [address] Physician Inshore Undersea Warfare Officer Hematology/Oncology 11/15/22 July Wiley, [employer] Truck Sales Representative 11/21/22 Can Stacker Relationship Specialty Start Date End Date Julian Burton MD PCP - General Family Medicine 10/26/[address] [facility] [place] [address] Registered Dietitian Nutrition 11/04/22 Chiqui Modi, RN [address] [place] [address] Specialty Securities Dealer Hematology/Oncology 11/15/22 Elizabeth Borjas MD [address] [facility] [place] [address] Physician Hematology/Oncology 11/15/22 Tremaine Gomez PA-C [address] [facility] [place] [address] Physician Inshore Undersea Warfare Officer Hematology/Oncology 11/15/22 July Wiley, [employer] Truck Sales Representative 11/21/22 Can Stacker Relationship Specialty Start Date End Date Julian Burton MD PCP - General Family Medicine 10/26/[address] [facility] [address] Registered Dietitian Nutrition 11/04/22 Chiqui Modi, RN [address] [facility] [place] [address] Specialty Securities Dealer Hematology/Oncology 11/15/22 Elizabeth Borjas MD [address] [facility] [place] [address] Physician Hematology/Oncology 11/15/22 Tremaine Gomez PA-C [address] [facility] [place] [address] Physician Inshore Undersea Warfare Officer Hematology/Oncology 11/15/22 July Wiley, [employer] Truck Sales Representative 11/21/22 Can Stacker Relationship Specialty Start Date End Date Julian Burton MD PCP - General Family Medicine 10/26/[address] [place] [address] Registered Dietitian Nutrition 11/04/22 Chiqui Modi RN [address] [place] [address] Specialty Securities Dealer Hematology/Oncology 11/15/22 Elizabeth Borjas MD [address] [place] [address] Physician Hematology/Oncology 11/15/22 Tremaine Gomez, PA-C [address] [place] [address] Physician Inshore Undersea Warfare Officer Hematology/Oncology 11/15/22 July Wiley LSW Truck Sales Representative 11/21/22 Can Stacker Relationship Specialty Start Date End Date Julian Burton MD PCP - General Family Medicine 10/26/[address] [place] [address] Registered Dietitian Nutrition 11/04/22 Chiqui Modi RN [address] [place] [address] Specialty Securities Dealer Hematology/Oncology 11/15/22 Elizabeth Borjas MD [address] [place] [address] Physician Hematology/Oncology 11/15/22 Tremaine Gomez, PA-C [address] [place] [address] Physician Inshore Undersea Warfare Officer Hematology/Oncology 11/15/22 July Wiley LSW Truck Sales Representative 11/21/22 Can Stacker Relationship Specialty Start Date End Date Julian Burton MD PCP - General Family Medicine 10/26/[address] [place] [address] Registered Dietitian Nutrition 11/04/22 Chiqui Modi RN [address] [place] [address] Specialty Securities Dealer Hematology/Oncology 11/15/22 Elizabeth Borjas MD [address] [place] [address] Physician Hematology/Oncology 11/15/22 Tremaine Gomez PA-C [address] [place] [address] Physician Inshore Undersea Warfare Officer Hematology/Oncology 11/15/22 July Wiley LSW Truck Sales Representative 11/21/22 Can Stacker Relationship Specialty Start Date End Date Julian Burton MD PCP - General Family Medicine 10/26/[address] [address] [place] [address] Registered Dietitian Nutrition 11/04/22 Chiqui Modi RN [address] [place] [address] Specialty Securities Dealer Hematology/Oncology 11/15/22 Elizabeth Borjas MD [address] [place] [address] Physician Hematology/Oncology 11/15/22 Tremaine Gomez PA-C [address] [place] [address] Physician Inshore Undersea Warfare Officer Hematology/Oncology 11/15/22 July Wiley LSW Truck Sales Representative 11/21/22 Can Stacker Relationship Specialty Start Date End Date Julian Burton MD PCP - General Family Medicine 10/26/[address] [place] [address] Registered Dietitian Nutrition 11/04/22 Chiqui Modi, RN [address] [place] [address] Specialty Securities Dealer Hematology/Oncology 11/15/22 Elizabeth Borjas MD [address] [place] [address] Physician Hematology/Oncology 11/15/22 Tremaine Gomez, OLIMPIAC [address] [place] [address] Physician Inshore Undersea Warfare Officer Hematology/Oncology 11/15/22 July Wiley, ROB Truck Sales Representative 11/21/22 Can Stacker Relationship Specialty Start Date End Date Julian Burton MD PCP - General Family Medicine 10/26/[address] [place] [address] Registered Dietitian Nutrition 11/04/22 Chiqui Modi RN [address] [place] [address] Specialty Securities Dealer Hematology/Oncology 11/15/22 Elizabeth Borjas MD [address] [place] [address] Physician Hematology/Oncology 11/15/22 Tremaine Gomez PA-C [address] [place] [address] Physician Inshore Undersea Warfare Officer Hematology/Oncology 11/15/22 July Wiley LSW Truck Sales Representative 11/21/22 Can Stacker Relationship Specialty Start Date End Date Julian Burton MD PCP - General Family Medicine 10/26/[address] [place] [address] Registered Dietitian Nutrition 11/04/22 Chiqui Modi RN [address] [facility] [address] [address] Specialty Securities Dealer Hematology/Oncology 11/15/22 Elizabeth Borjas MD [address] [facility] [place] [address] Physician Hematology/Oncology 11/15/22 Tremaine Gomez PA-C [address] [facility] [address] [address] Physician Inshore Undersea Warfare Officer Hematology/Oncology 11/15/22 July Wiley, CLOTHING PRESSER Truck Sales Representative 11/21/22 Can Stacker Relationship Specialty Start Date End Date Julian Burton MD PCP - General Family Medicine 10/26/[address] [facility] [address] Registered Dietitian Nutrition 11/04/22 Chiqui Modi RN [address] [facility] [address] Specialty Securities Dealer Hematology/Oncology 11/15/22 Elizabeth Borjas MD [address] [facility] [place] [address] Physician Hematology/Oncology 11/15/22 Tremaine Gomez PA-C [address] [facility] [address] Physician Inshore Undersea Warfare Officer Hematology/Oncology 11/15/22 July Wiley, ROB Truck Sales Representative 11/21/22 Can Stacker Relationship Specialty Start Date End Date Julian Burton MD PCP - General Family Medicine 10/26/22 Yadi Simms, RD [address] [facility] [address] Registered Dietitian Nutrition 11/04/22 Chiqui Modi RN [address] [facility] [address] Specialty Securities Dealer Hematology/Oncology 11/15/22 Elizabeth Borjas MD [address] [facility] [place] [address] Physician Hematology/Oncology 11/15/22 Tremaine Gomez, PA-C [address] [place] [address] Physician Inshore Undersea Warfare Officer Hematology/Oncology 11/15/22 July Wiley LSW Truck Sales Representative 11/21/22 Can Stacker Relationship Specialty Start Date End Date Julian Burton MD PCP - General Family Medicine 10/26/[address] [place] [address] Registered Dietitian Nutrition 11/04/22 Chiqui Modi RN [address] [place] [address] Specialty Securities Dealer Hematology/Oncology 11/15/22 Elizabeth Borjas MD [address] [facility] [place] [address] Physician Hematology/Oncology 11/15/22 Tremaine Gomez, PA-C [address] [place] [address] Physician Inshore Undersea Warfare Officer Hematology/Oncology 11/15/22 July Wiley LSW Truck Sales Representative 11/21/22 Can Stacker Relationship Specialty Start Date End Date Julian Burton MD PCP - General Family Medicine 10/26/22 Yadi Simms, RD [address] [place] [address] Registered Dietitian Nutrition 11/04/22 Chiqui Modi RN [address] [place], [place] [address] Specialty Securities Dealer Hematology/Oncology 11/15/22 Elizabeth Borjas MD [address] [facility] [facility] [place] [address] Physician Hematology/Oncology 11/15/22 Tremaine Gomez, PAMaguiC [address] [facility] [place] [address] Physician Inshore Undersea Warfare Officer Hematology/Oncology 11/15/22 July Wiley, CLOTHING PRESSER Truck Sales Representative 11/21/22 Can Stacker Relationship Specialty Start Date End Date Julian Burton MD PCP - General Family Medicine 10/26/[address] [facility] [address] Registered Dietitian Nutrition 11/04/22 Chiqui Modi RN [address] [facility] [address] Specialty Securities Dealer Hematology/Oncology 11/15/22 Elizabeth Borjas MD [address] [facility] [place] [address] Physician Hematology/Oncology 11/15/22 Tremaine Gomez, PAMaguiC [address] [facility] [place] [address] Physician Inshore Undersea Warfare Officer Hematology/Oncology 11/15/22 July Wiley LSW Truck Sales Representative 11/21/22 Can Stacker Relationship Specialty Start Date End Date Julian Burton MD PCP - General Family Medicine 10/26/[address] [facility] [address] Registered Dietitian Nutrition 11/04/22 Chiqui Modi RN [address] [facility] [address] Specialty Securities Dealer Hematology/Oncology 11/15/22 Elizabeth Borjas MD [address] [facility] [place] [address] Physician Hematology/Oncology 11/15/22 Tremaine Gomez, NICANOR [address] [facility] [address] Physician Inshore Undersea Warfare Officer Hematology/Oncology 11/15/22 July Wiley, CLOTHING PRESSER Truck Sales Representative 11/21/22 Can Stacker Relationship Specialty Start Date End Date Julian Burton MD PCP - General Family Medicine 10/26/[address] [facility] [address] Registered Dietitian Nutrition 11/04/22 Chiqui Modi RN [address] [facility] [address] Specialty Securities Dealer Hematology/Oncology 11/15/22 Elizabeth Borjas MD [address] [facility] [place] [address] Physician Hematology/Oncology 11/15/22 Tremaine Gomez PA-C [address] [place] [address] Physician Inshore Undersea Warfare Officer Hematology/Oncology 11/15/22 July Wiley LSW Truck Sales Representative 11/21/22 Can Stacker Relationship Specialty Start Date End Date Julian Burton MD PCP - General Family Medicine 10/26/[address] [facility] [address] Registered Dietitian Nutrition 11/04/22 Chiqui Modi RN [address] [place] [address] Specialty Securities Dealer Hematology/Oncology 11/15/22 Elizabeth Borjas MD [address] [facility] [place] [address] Physician Hematology/Oncology 11/15/22 Tremaine Gomez PA-C [address] [place] [address] [place] [address] Physician Inshore Undersea Warfare Officer Hematology/Oncology 11/15/22 July Wiley LSW Truck Sales Representative 11/21/22 Team Status: Active Member Role Status Alin Burton MD Primary Care Provider Active Team Status: Inactive Member Role Status Alin Ivy MD Attending Provider Active Julian Burton MD Primary Care Provider Active Can Stacker Relationship Specialty Start Date End Date Julian Burton MD PCP - General Family Medicine 10/26/[address] [place] [address] [place] [address] Registered Dietitian Nutrition 11/04/22 Chiqui Modi RN [address] [place] [address] Specialty Securities Dealer Hematology/Oncology 11/15/22 Elizabeth Borjas MD [address] [place] [address] [place] [address] Physician Hematology/Oncology 11/15/22 Tremaine Gomez PA-C [address] [place] [address] [place] [address] Physician Inshore Undersea Warfare Officer Hematology/Oncology 11/15/22 July Wiley LSW Truck Sales Representative 11/21/22 Can Stacker Relationship Specialty Start Date End Date Julian Burton MD PCP - General Family Medicine 10/26/[address] [facility] [address] Registered Dietitian Nutrition 11/04/22 Chiqui Modi, ONELIA [address] [facility] [address] Specialty Securities Dealer Hematology/Oncology 11/15/22 Elizabeth Borjas MD [address] [facility] [place] [address] Physician Hematology/Oncology 11/15/22 Tremaine Gomez PA-C [address] [place] [address] Physician Inshore Undersea Warfare Officer Hematology/Oncology 11/15/22 July Wiley LSW Truck Sales Representative 11/21/22 Can Stacker Relationship Specialty Start Date End Date Julian Burton MD PCP - General Family Medicine 10/26/[address] [place] [address] Registered Dietitian Nutrition 11/04/22 Chiqui Modi RN [address] [facility] [address] Specialty Securities Dealer Hematology/Oncology 11/15/22 Elizabeth Borjas MD [address] [facility] [place] [address] Physician Hematology/Oncology 11/15/22 Tremaine Gomez PA-C [address] [facility] [address] Physician Inshore Undersea Warfare Officer Hematology/Oncology 11/15/22 July Wiley LSW Truck Sales Representative 11/21/22 Can Stacker Relationship Specialty Start Date End Date Juilan Burton MD PCP - General Family Medicine 10/26/[address] [facility] [address] Registered Dietitian Nutrition 11/04/22 Chiqui Modi, RN [address] [facility] [address] Specialty Securities Dealer Hematology/Oncology 11/15/22 Elizabeth Borjas MD [address] [facility] [place] [address] Physician Hematology/Oncology 11/15/22 Tremaine Gomez, PAMaguiC [address] [place] [address] [place] [address] Physician Inshore Undersea Warfare Officer Hematology/Oncology 11/15/22 July Wiley LSW Truck Sales Representative 11/21/22 Can Stacker Relationship Specialty Start Date End Date Julian Burton MD PCP - General Family Medicine 10/26/[address] [place], [place] [address]RY [facility] [place] [address] Registered Dietitian Nutrition 11/04/22 Chiqui Modi, RN [address] [facility] [address] [place], [place] [address] Specialty Securities Dealer Hematology/Oncology 11/15/22 Elizabeth Borjas MD [address] [facility] [facility] [place] [address] Physician Hematology/Oncology 11/15/22 Tremaine Gomez PA-C [address] [place] [address] Physician Inshore Undersea Warfare Officer Hematology/Oncology 11/15/22 July Wiley, CLOTHING PRESSER Truck Sales Representative 11/21/22 Can Stacker Relationship Specialty Start Date End Date Julian Burton MD PCP - General Family Medicine 10/26/[address] [place] [address] Registered Dietitian Nutrition 11/04/22 Chiqui Modi, RN [address] [place] [address] Specialty Securities Dealer Hematology/Oncology 11/15/22 Elizabeth Borjas MD [address] [place] [address] Physician Hematology/Oncology 11/15/22 Tremaine Gomez PA-C [address] [facility] [place] [address] Physician Inshore Undersea Warfare Officer Hematology/Oncology 11/15/22 July Wiley, CLOTHING PRESSER Truck Sales Representative 11/21/22 Can Stacker Relationship Specialty Start Date End Date Julian Burton MD PCP - General Family Medicine 10/26/[address] [place] [address] Registered Dietitian Nutrition 11/04/22 Chiqui Modi, RN [address] [facility] [place] [address] Specialty Securities Dealer Hematology/Oncology 11/15/22 Elizabeth Borjas MD [address] [facility] [place] [address] Physician Hematology/Oncology 11/15/22 Tremaine Gomez PA-C [address] [facility] [address] Physician Inshore Undersea Warfare Officer Hematology/Oncology 11/15/22 July Wiley LSW Truck Sales Representative 11/21/22 Can Stacker Relationship Specialty Start Date End Date Julian Burton MD PCP - General Family Medicine 10/26/[address] [facility] [address] Registered Dietitian Nutrition 11/04/22 Chiqui Modi RN [address] [facility] [address] Specialty Securities Dealer Hematology/Oncology 11/15/22 Elizabeth Borjas MD [address] [place] [address] Physician Hematology/Oncology 11/15/22 Tremaine Gomez PA-C [address] [facility] [address] Physician Inshore Undersea Warfare Officer Hematology/Oncology 11/15/22 July Wiley LSW Truck Sales Representative 11/21/22 Can Stacker Relationship Specialty Start Date End Date Julian Burton MD PCP - General Family Medicine 10/26/[address] [facility] [address] Registered Dietitian Nutrition 11/04/22 Chiqui Modi RN [address] [place] [address] Specialty Securities Dealer Hematology/Oncology 11/15/22 Elizabeth Borjas MD [address] [facility] [place] [address] Physician Hematology/Oncology 11/15/22 Tremaine Gomez PA-C [address] [place] [address] Physician Inshore Undersea Warfare Officer Hematology/Oncology 11/15/22 July Wiley LSW Truck Sales Representative 11/21/22 Can Stacker Relationship Specialty Start Date End Date Julian Burton MD PCP - General Family Medicine 10/26/[address] [place] [address] Registered Dietitian Nutrition 11/04/22 Chiqui Modi RN [address] [place] [address] Specialty Securities Dealer Hematology/Oncology 11/15/22 Elizabeth Borjas MD [address] [facility] [place] [address] Physician Hematology/Oncology 11/15/22 Tremaine Gomez PA-C [address] [place] [address] Physician Inshore Undersea Warfare Officer Hematology/Oncology 11/15/22 July Wiley LSW Truck Sales Representative 11/21/22 Can Stacker Relationship Specialty Start Date End Date Julian Burton MD [address] [place] [id number] PCP - General Family Medicine 03/09/23 Can Stacker Relationship Specialty Start Date End Date Julian Burton MD [address] [place] [address], [place] [address] PCP - General Family Medicine 03/09/23 Can Stacker Relationship Specialty Start Date End Date Julian Burton MD PCP - General Family Medicine 10/26/[address] [place] [address] Registered Dietitian Nutrition 11/04/22 Chiqui Modi, RN [address] [place] [address] Specialty Securities Dealer Hematology/Oncology 11/15/22 Elizabeth Borjas MD [address] [facility] [place] [address] Physician Hematology/Oncology 11/15/22 Tremaine Gomez, PA-C [address] [place] [address] Physician Inshore Undersea Warfare Officer Hematology/Oncology 11/15/22 July Wiley LSW Truck Sales Representative 11/21/22 Can Stacker Relationship Specialty Start Date End Date Julian Burton MD PCP - General Family Medicine 10/26/[address] [facility] [address] Registered Dietitian Nutrition 11/04/22 Chiqui Modi, RN [address] [facility] [address] Specialty Securities Dealer Hematology/Oncology 11/15/22 Elizabeth Borjas MD [address] [place] [address] Physician Hematology/Oncology 11/15/22 Tremaine Gomez PA-C [address] [place] [address] Physician Inshore Undersea Warfare Officer Hematology/Oncology 11/15/22 July Wiley LSW Truck Sales Representative 11/21/22 Can Stacker Relationship Specialty Start Date End Date Julian Burton MD PCP - General Family Medicine 10/26/[address] [place] [address] Registered Dietitian Nutrition 11/04/22 Chiqui Modi RN [address] [facility] [address] Specialty Securities Dealer Hematology/Oncology 11/15/22 Elizabeth Borjas MD [address] [place] [address] Physician Hematology/Oncology 11/15/22 Tremaine Gomez PA-C [address] [place] [address] Physician Inshore Undersea Warfare Officer Hematology/Oncology 11/15/22 July Wiley LSW Truck Sales Representative 11/21/22 Can Stacker Relationship Specialty Start Date End Date Julian Burton MD PCP - General Family Medicine 10/26/[address] [place] [address] Registered Dietitian Nutrition 11/04/22 Chiqui Modi RN [address] [place] [address] Specialty Securities Dealer Hematology/Oncology 11/15/22 Elizabeth Borjas MD [address] [place] [address] Physician Hematology/Oncology 11/15/22 Tremaine Gomez PA-C [address] [place] [address] Physician Inshore Undersea Warfare Officer Hematology/Oncology 11/15/22 July Wiley LSW Truck Sales Representative 11/21/22 Can Stacker Relationship Specialty Start Date End Date Julian Burton MD PCP - General Family Medicine 10/26/[address] [place] [address] Registered Dietitian Nutrition 11/04/22 Chiqui Modi RN [address] [place] [address] Specialty Securities Dealer Hematology/Oncology 11/15/22 Elizabeth Borjas MD [address] [place] [address] Physician Hematology/Oncology 11/15/22 Tremaine Gomez PA-C [address] [place] [address] [place] [address] Physician Inshore Undersea Warfare Officer Hematology/Oncology 11/15/22 July Wiley LSW Truck Sales Representative 11/21/22 Can Stacker Relationship Specialty Start Date End Date Julian Burton MD PCP - General Family Medicine 10/26/[address] [place] [address] [place] [address] Registered Dietitian Nutrition 11/04/22 Chiqui Modi RN [address] [place] [address] Specialty Securities Dealer Hematology/Oncology 11/15/22 Elizabeth Borjas MD [address] [facility] [place] [address] Physician Hematology/Oncology 11/15/22 Tremaine Gomez PA-C [address] [place] [address] [place] [address] Physician Inshore Undersea Warfare Officer Hematology/Oncology 11/15/22 July Wiley LSW Truck Sales Representative 11/21/22 Team Status: Inactive Member Role Status Dates Julian Burton MD Primary Care Provider Active Start: April 12, 2024 End: April 12, 2024 Tremaine Gomez PA-C Attending Provider Active Start: April 12, 2024 End: April 12, 2024 Can Stacker Relationship Specialty Start Date End Date Julian Burton MD PCP - General Family Medicine 10/26/[address] [place] [address] [place] [address] Registered Dietitian Nutrition 11/04/22 Chiqui Modi RN [address] [place] [address] Specialty Securities Dealer Hematology/Oncology 11/15/22 Elizabeth Borjas MD [address] [facility] [place] [address] Physician Hematology/Oncology 11/15/22 Tremaine Gomez PA-C [address] [place] [address] [place] [address] Physician Inshore Undersea Warfare Officer Hematology/Oncology 11/15/22 July Wiley LSW Truck Sales Representative 11/21/22 Can Stacker Relationship Specialty Start Date End Date Julian Burton MD PCP - General Family Medicine 10/26/[address] [facility] [place] [address] Registered Dietitian Nutrition 11/04/22 Chiqui Modi, RN [address] [facility] [place] [address] Specialty Securities Dealer Hematology/Oncology 11/15/22 Elizabeth Borjas MD [address] [facility] [place] [address] Physician Hematology/Oncology 11/15/22 Tremaine Gomez, PAMaguiC [address] [facility] [place] [address] Physician Inshore Undersea Warfare Officer Hematology/Oncology 11/15/22 July Wiley LSW Truck Sales Representative 11/21/22 Can Stacker Relationship Specialty Start Date End Date Julian Burton MD PCP - General Family Medicine 10/26/[address] [facility] [place] [address] Registered Dietitian Nutrition 11/04/22 Chiqui Modi, RN [address] [facility] [place] [address] Specialty Securities Dealer Hematology/Oncology 11/15/22 Elizabeth Borjas MD [address] [facility] [place] [address] Physician Hematology/Oncology 11/15/22 Tremaine Gomez PA-C [address] [place] [address] Physician Inshore Undersea Warfare Officer Hematology/Oncology 11/15/22 July Wiley, CLOTHING PRESSER Truck Sales Representative 11/21/22 Can Stacker Relationship Specialty Start Date End Date Julian Burton MD PCP - General Family Medicine 10/26/[address] [place] [address] Registered Dietitian Nutrition 11/04/22 Chiqui Modi, RN [address] [place] [address] Specialty Securities Dealer Hematology/Oncology 11/15/22 Elizabeth Borjas MD [address] [place] [address] Physician Hematology/Oncology 11/15/22 Tremaine Gomez PA-C [address] [place] [address] Physician Inshore Undersea Warfare Officer Hematology/Oncology 11/15/22 July Wiley LSW Truck Sales Representative 11/21/22 Can Stacker Relationship Specialty Start Date End Date Julian Burton MD PCP - General Family Medicine 10/26/[address] [place] [address] Registered Dietitian Nutrition 11/04/22 Chiqui Modi, RN [address] [facility] [place] [address] Specialty Securities Dealer Hematology/Oncology 11/15/22 Elizabeth Borjas MD [address] [facility] [place] [address] Physician Hematology/Oncology 11/15/22 Tremaine Gomez PA-C [address] [facility] [place] [address] Physician Inshore Undersea Warfare Officer Hematology/Oncology 11/15/22 July Wiley, CLOTHING PRESSER Truck Sales Representative 11/21/22 Can Stacker Relationship Specialty Start Date End Date Julian Burton MD PCP - General Family Medicine 10/26/[address] [facility] [place] [address] Registered Dietitian Nutrition 11/04/22 Chiqui Modi RN [address] [facility] [place] [address] Specialty Securities Dealer Hematology/Oncology 11/15/22 Elizabeth Borjas MD [address] [place] [address] Physician Hematology/Oncology 11/15/22 Tremaine Gomez PA-C [address] [facility] [place] [address] Physician Inshore Undersea Warfare Officer Hematology/Oncology 11/15/22 July Wiley LSW Truck Sales Representative 11/21/22 Can Stacker Relationship Specialty Start Date End Date Julian Burton MD PCP - General Family Medicine 10/26/[address] [facility] [place] [address] Registered Dietitian Nutrition 11/04/22 Chiqui Modi RN [address] [place] [address] Specialty Securities Dealer Hematology/Oncology 11/15/22 Elizabeth Borjas MD [address] [facility] [place] [address] Physician Hematology/Oncology 11/15/22 Tremaine Gomez PA-C [address] [place] [address] Physician Inshore Undersea Warfare Officer Hematology/Oncology 11/15/22 July Wiley LSW Truck Sales Representative 11/21/22 Can Stacker Relationship Specialty Start Date End Date Julian Burton MD PCP - General Family Medicine 10/26/[address] [place] [address] Registered Dietitian Nutrition 11/04/22 Chiqui Modi RN [address] [place] [address] Specialty Securities Dealer Hematology/Oncology 11/15/22 Elizabeth Borjas MD [address] [place] [address] [place] [address] Physician Hematology/Oncology 11/15/22 Tremaine Gomez PA-C [address] [place] [address] [place] [address] Physician Inshore Undersea Warfare Officer Hematology/Oncology 11/15/22 July Wiley LSW Truck Sales Representative 11/21/22 Can Stacker Relationship Specialty Start Date End Date Julian Burton MD PCP - General Family Medicine 10/26/[address] [place] [address] Registered Dietitian Nutrition 11/04/22 Chiqui Modi RN [address] [place] [address] Specialty Securities Dealer Hematology/Oncology 11/15/22 Elizabeth Borjas MD [address] [facility] [place] [address] Physician Hematology/Oncology 11/15/22 Tremaine Gomez, PAMaguiC [facility] [place] [address] Physician Inshore Undersea Warfare Officer Hematology/Oncology 11/15/22 July Wiley, CLOTHING PRESSER Truck Sales Representative 11/21/22 Can Stacker Relationship Specialty Start Date End Date Julian Burton MD PCP - General Family Medicine 10/26/[address] [place] [address] Registered Dietitian Nutrition 11/04/22 Chiqui Modi RN [address] [place] [address] Specialty Securities Dealer Hematology/Oncology 11/15/22 Elizabeth Borjas MD [address] [place] [address] [place] [address] Physician Hematology/Oncology 11/15/22 Tremaine Gomez PA-C [address] [place] [address] Physician Inshore Undersea Warfare Officer Hematology/Oncology 11/15/22 July Wiley, ROB Truck Sales Representative 11/21/22 Can Stacker Relationship Specialty Start Date End Date Julian Burton MD PCP - General Family Medicine 10/26/[address] [place] [address] Registered Dietitian Nutrition 11/04/22 Chiqui Modi, ONELIA [address] [facility] [address] Specialty Securities Dealer Hematology/Oncology 11/15/22 Elizabeth Borjas MD [address] [facility] [place] [address] Physician Hematology/Oncology 11/15/22 Tremaine Gomez, PA-C [address] [place] [address] [place] [address] Physician Inshore Undersea Warfare Officer Hematology/Oncology 11/15/22 July Wiley LSW Truck Sales Representative 11/21/22 Can Stacker Relationship Specialty Start Date End Date Julian Burton MD PCP - General Family Medicine 10/26/[address] [place] [address] Registered Dietitian Nutrition 11/04/22 Chiqui Modi RN [address] [facility] [address] Specialty Securities Dealer Hematology/Oncology 11/15/22 Elizabeth Borjas MD [address] [facility] [place] [address] Physician Hematology/Oncology 11/15/22 Tremaine Gomez PA-C [address] [place] [address] Physician Inshore Undersea Warfare Officer Hematology/Oncology 11/15/22 July Wiley LSW Truck Sales Representative 11/21/22 Can Stacker Relationship Specialty Start Date End Date Julian Burton MD PCP - General Family Medicine 10/26/[address] [place] [address] Registered Dietitian Nutrition 11/04/22 Chiqui Modi, RN [address] [facility] [place] [address] Specialty Securities Dealer Hematology/Oncology 11/15/22 Elizabeth Borjas MD [address] [place] [address] Physician Hematology/Oncology 11/15/22 Tremaine Gomez PAAutumn [address] [place] [address] [place] [address] Physician Inshore Undersea Warfare Officer Hematology/Oncology 11/15/22 July Wiley, CLOTHING PRESSER Truck Sales Representative 11/21/22 Can Stacker Relationship Specialty Start Date End Date Julian Burton MD PCP - General Family Medicine 10/26/[address] [place] [address] [place] [address] Registered Dietitian Nutrition 11/04/22 Chiqui Modi, RN [address] [facility] [place] [address] Specialty Securities Dealer Hematology/Oncology 11/15/22 Elizabeth Borjas MD [address] [facility] [place] [address] Physician Hematology/Oncology 11/15/22 Tremaine Gomez PA-C [address] [facility] [place] [address] Physician Inshore Undersea Warfare Officer Hematology/Oncology 11/15/22 July Wiley, CLOTHING PRESSER Truck Sales Representative 11/21/22 Can Stacker Relationship Specialty Start Date End Date Julian Burton MD PCP - General Family Medicine 10/26/[address] [facility] [address] Registered Dietitian Nutrition 11/04/22 Chiqui Modi, RN [address] [place] [address] Specialty Securities Dealer Hematology/Oncology 11/15/22 Elizabeth Borjas MD [address] [facility] [place] [address] Physician Hematology/Oncology 11/15/22 Tremaine Gomez PA-C [address] [facility] [address] Physician Inshore Undersea Warfare Officer Hematology/Oncology 11/15/22 July Wiley, CLOTHING PRESSER Truck Sales Representative 11/21/22 Can Stacker Relationship Specialty Start Date End Date Julian Burton MD PCP - General Family Medicine 10/26/[address] [place] [address] Registered Dietitian Nutrition 11/04/22 Chiqui Modi, RN [address] [place] [address] Specialty Securities Dealer Hematology/Oncology 11/15/22 Elizabeth Borjas MD [address] [place] [address] Physician Hematology/Oncology 11/15/22 Tremaine Gomez PA-C [address] [facility] [place] [address] Physician Inshore Undersea Warfare Officer Hematology/Oncology 11/15/22 July Wiley, CLOTHING PRESSER Truck Sales Representative 11/21/22 Can Stacker Relationship Specialty Start Date End Date Julian Burton MD PCP - General Family Medicine 10/26/[address] [facility] [address] Registered Dietitian Nutrition 11/04/22 Chiqui Modi RN [address] [facility] [address] Specialty Securities Dealer Hematology/Oncology 11/15/22 Elizabeth Borjas MD [address] [place] [address] Physician Hematology/Oncology 11/15/22 06/23/24 Tremaine Gomez PA-C [address] [place] [address] [place] [address] Physician Inshore Undersea Warfare Officer Hematology/Oncology 11/15/22 July Wiley, ROB Truck Sales Representative 11/21/22 Can Stacker Relationship Specialty Start Date End Date Julian Burton MD PCP - General Family Medicine 10/26/[address] [facility] [address] Registered Dietitian Nutrition 11/04/22 Chiqui Modi RN [address] [place] [address] Specialty Securities Dealer Hematology/Oncology 11/15/22 Elizabeth Borjas MD [address] [facility] [place] [address] Physician Hematology/Oncology 11/15/22 06/23/24 Tremaine Gomez PA-C [address] [place] [address] [place] [address] Physician Inshore Undersea Warfare Officer Hematology/Oncology 11/15/22 July Wiley LSW Truck Sales Representative 11/21/22 Can Stacker Relationship Specialty Start Date End Date Julian Burton MD PCP - General Family Medicine 10/26/[address] [place] [address] [place] [address] Registered Dietitian Nutrition 11/04/22 Chiqui Modi RN [address] [place] [address] Specialty Securities Dealer Hematology/Oncology 11/15/22 Elizabeth Borjas MD [address] [facility] [place] [address] Physician Hematology/Oncology 11/15/22 06/23/24 Tremaine Gomez PA-C [address] [place] [address] [place] [address] Physician Inshore Undersea Warfare Officer Hematology/Oncology 11/15/22 July Wiley LSW Truck Sales Representative 11/21/22 Can Stacker Relationship Specialty Start Date End Date Julian Burton MD PCP - General Family Medicine 10/26/[address] [facility] [place] [address] Registered Dietitian Nutrition 11/04/22 Chiqui Modi, RN [address] [facility] [address] Specialty Securities Dealer Hematology/Oncology 11/15/22 Tremaine Gomez PA-C [address] [place] [address] Physician Inshore Undersea Warfare Officer Hematology/Oncology 11/15/22 July Wiley LSW Truck Sales Representative 11/21/22 Lakia Medina MD [address] [place] [address] Physician Hematology/Oncology 06/24/24 Can Stacker Relationship Specialty Start Date End Date Julian Burton MD PCP - General Family Medicine 10/26/[address] [facility] [address] Registered Dietitian Nutrition 11/04/22 Chiqui Modi RN [address] [facility] [address] Specialty Securities Dealer Hematology/Oncology 11/15/22 Tremaine Gomez PA-C [address] [facility] [address] Physician Inshore Undersea Warfare Officer Hematology/Oncology 11/15/22 July Wiley LSW Truck Sales Representative 11/21/22 Lakia Medina MD [address] [facility] [place] [address] Physician Hematology/Oncology 06/24/24 Can Stacker Relationship Specialty Start Date End Date Julian Burton MD PCP - General Family Medicine 10/26/[address] [facility] [place] [address] Registered Dietitian Nutrition 11/04/22 Chiqui Modi, ONELIA [address] [place] [address] Specialty Securities Dealer Hematology/Oncology 11/15/22 Tremaine Gomez, OLIMPIAC [address] [place] [address] Physician Inshore Undersea Warfare Officer Hematology/Oncology 11/15/22 July Wiley, CLOTHING PRESSER Truck Sales Representative 11/21/22 Lakia Medina MD [address] [place] [address] Physician Hematology/Oncology 06/24/24 Can Stacker Relationship Specialty Start Date End Date Julian Burton MD PCP - General Family Medicine 10/26/[address] [place] [address] Registered Dietitian Nutrition 11/04/22 Chiqui Modi RN [address] [place] [address] Specialty Securities Dealer Hematology/Oncology 11/15/22 Tremaine Gomez, NICANOR [address] [place] [address] Physician Inshore Undersea Warfare Officer Hematology/Oncology 11/15/22 July Wiley, CLOTHING PRESSER Truck Sales Representative 11/21/22 Lakia Medina MD [address] [place] [address] [place] [address] Physician Hematology/Oncology 06/24/24 Can Stacker Relationship Specialty Start Date End Date Julian Burton MD PCP - General Family Medicine 10/26/[address] [place] [place] [address] Registered Dietitian Nutrition 11/04/22 Can Stacker Relationship Specialty Start Date End Date Julian Burton MD PCP - General Family Medicine 10/26/[address] [place] [address] [place] [address] Registered Dietitian Nutrition 11/04/22 Chiqui Modi, RN [address] [place] [address] Specialty Securities Dealer Hematology/Oncology 11/15/22 Elizabeth Borjas MD [address] [place] [address] [place] [address] Physician Hematology/Oncology 11/15/22 06/23/24 Tremaine Gomez, PA-C [address] [place] [address] [place] [address] Physician Inshore Undersea Warfare Officer Hematology/Oncology 11/15/22 July Wiley LSW Truck Sales Representative 11/21/22 Can Stacker Relationship Specialty Start Date End Date Julian Burton MD PCP - General Family Medicine 10/26/[address] [place] [address] Registered Dietitian Nutrition 11/04/22 Can Stacker Relationship Specialty Start Date End Date Julian Burton MD PCP - General Family Medicine 10/26/[address] [facility] [place] [address] Registered Dietitian Nutrition 11/04/22 Chiqui Modi, RN [address] [facility] [place] [address] Specialty Securities Dealer Hematology/Oncology 11/15/22 Tremaine Gomez, NICANOR [address] [facility] [place] [address] Physician Inshore Undersea Warfare Officer Hematology/Oncology 11/15/22 July Wiley, CLOTHING PRESSER Truck Sales Representative 11/21/22 Lakia Medina MD [address] [facility] [place] [address] Physician Hematology/Oncology 06/24/24 Can Stacker Relationship Specialty Start Date End Date Julian Burton MD PCP - General Family Medicine 10/26/[address] [facility] [address] Registered Dietitian Nutrition 11/04/22 Chiqui Modi RN [address] [facility] [address] Specialty Securities Dealer Hematology/Oncology 11/15/22 Tremaine Gomez, NICANOR [address] [facility] [place] [address] Physician Inshore Undersea Warfare Officer Hematology/Oncology 11/15/22 July Wiley, ROB Truck Sales Representative 11/21/22 Lakia Medina MD [address] [place] [address] [place] [address] Physician Hematology/Oncology 06/24/24 Can Stacker Relationship Specialty Start Date End Date Julian Burton MD PCP - General Family Medicine 10/26/[address] [place] [address] [place] [address] Registered Dietitian Nutrition 11/04/22 Chiqui Modi, RN [address] [place] [address] [place] [address] Specialty Securities Dealer Hematology/Oncology 11/15/22 Tremaine Gomez PA-C [address] [place] [address] [address] [place], [facility] Physician Inshore Undersea Warfare Officer Hematology/Oncology 11/15/22 July Wiley LSW Truck Sales Representative 11/21/22 Lakia Medina MD [address] [place] [address] [place] [address] Physician Hematology/Oncology 06/24/24 Can Stacker Relationship Specialty Start Date End Date Julian Burton MD [address] [place] [address] PCP - General Family Medicine 03/09/23 Can Stacker Relationship Specialty Start Date End Date Julian Burton MD [address] [place] [address] PCP - General Family Medicine 03/09/23 Can Stacker Relationship Specialty Start Date End Date Julian Burton MD PCP - General Family Medicine 10/26/[address] [facility] [place] [address] Registered Dietitian Nutrition 11/04/22 Chiqui Modi, RN [address] [facility] [address] Specialty Securities Dealer Hematology/Oncology 11/15/22 Tremaine Gomez PA-C [address] [facility] [place] [address] Physician Inshore Undersea Warfare Officer Hematology/Oncology 11/15/22 July Wiley, CLOTHING PRESSER Truck Sales Representative 11/21/22 Lakia Medina MD [address] [facility] [place] [address] Physician Hematology/Oncology 06/24/24 Can Stacker Relationship Specialty Start Date End Date Julian Burton MD PCP - General Family Medicine 10/26/[address] [facility] [place] [address] Registered Dietitian Nutrition 11/04/22 Chiqui Modi RN [address] [facility] [address] Specialty Securities Dealer Hematology/Oncology 11/15/22 Tremaine Gomez PA-C [address] [place] [address] Physician Inshore Undersea Warfare Officer Hematology/Oncology 11/15/22 July Wiley, CLOTHING PRESSER Truck Sales Representative 11/21/22 Lakia Medina MD [address] [place] [address] Physician Hematology/Oncology 06/24/24 Can Stacker Relationship Specialty Start Date End Date Julian Burton MD [address] [place] [address] PCP - General Family Medicine 03/09/23 Can Stacker Relationship Specialty Start Date End Date Julian Burton MD [address] [place] [address] PCP - General Family Medicine 03/09/23 Can Stacker Relationship Specialty Start Date End Date Julian Burton MD PCP - General Family Medicine 10/26/[address] [place] [address] [place], [facility] Registered Dietitian Nutrition 11/04/22 Chiqui Modi, ONELIA [address] [place] [address] [address] [place], [facility] Specialty Securities Dealer Hematology/Oncology 11/15/22 Tremaine Gomez, PAMaguiC [address] [place] [address] [address] [place], [facility] Physician Inshore Undersea Warfare Officer Hematology/Oncology 11/15/22 July Wiley LSW Truck Sales Representative 11/21/22 Lakia Medina MD [address] [place] [address] [address] [place], [facility] Physician Hematology/Oncology 06/24/24 Can Stacker Relationship Specialty Start Date End Date Julian Burton MD [address] [place] [address] PCP - General Family Medicine 03/09/23 Can Stacker Relationship Specialty Start Date End Date Julian Burton MD PCP - General Family Medicine 10/26/[address] [facility] [place] [address] Registered Dietitian Nutrition 11/04/22 Chiqui Modi, ONELIA [address] [facility] [address] Specialty Securities Dealer Hematology/Oncology 11/15/22 Tremaine Gomez PA-C [address] [facility] [place] [address] Physician Inshore Undersea Warfare Officer Hematology/Oncology 11/15/22 July Wiley, CLOTHING PRESSER Truck Sales Representative 11/21/22 Lakia Medina MD [address] [place] [address] [place] [address] Physician Hematology/Oncology 06/24/24 Can Stacker Relationship Specialty Start Date End Date Julian Burton MD PCP - General Family Medicine 10/26/[address] [facility] [place] [address] Registered Dietitian Nutrition 11/04/22 Chiqui Modi RN [address] [facility] [address] Specialty Securities Dealer Hematology/Oncology 11/15/22 Tremaine Gomez PA-C [address] [place] [address] Physician Inshore Undersea Warfare Officer Hematology/Oncology 11/15/22 July Wiley, CLOTHING PRESSER Truck Sales Representative 11/21/22 Lakia Medina MD [address] [facility] [address] Physician Hematology/Oncology 06/24/24 Can Stacker Relationship Specialty Start Date End Date Julian Burton MD PCP - General Family Medicine 10/26/[address] [facility] [place] [address] Registered Dietitian Nutrition 11/04/22 Chiqui Modi, RN [address] [facility] [address] Specialty Securities Dealer Hematology/Oncology 11/15/22 Tremaine Gomez, NICANOR [address] [facility] [place] [address] Physician Inshore Undersea Warfare Officer Hematology/Oncology 11/15/22 July Wiley CLOTHING PRESSER Truck Sales Representative 11/21/22 Lakia Medina MD [address] [facility] [address] Physician Hematology/Oncology 06/24/24 Can Stacker Relationship Specialty Start Date End Date Julian Burton MD PCP - General Family Medicine 10/26/[address] [facility] [address] Registered Dietitian Nutrition 11/04/22 Chiqui Modi, RN [address] [facility] [address] Specialty Securities Dealer Hematology/Oncology 11/15/22 Tremaine Gomez PAAutumn [address] [place] [address] Physician Inshore Undersea Warfare Officer Hematology/Oncology 11/15/22 July Wiley, CLOTHING PRESSER Truck Sales Representative 11/21/22 Lakia Medina MD [address] [facility] [address] Physician Hematology/Oncology 06/24/24 Can Stacker Relationship Specialty Start Date End Date Julian Burton MD PCP - General Family Medicine 10/26/[address] [facility] [address] Registered Dietitian Nutrition 11/04/22 Chiqui Modi RN [address] [facility] [address] Specialty Securities Dealer Hematology/Oncology 11/15/22 Tremaine Gomez PA-C [address] [place], [place] [address]RY [facility] [address] [place], [facility] Physician Inshore Undersea Warfare Officer Hematology/Oncology 11/15/22 July Wiley, CLOTHING PRESSER Truck Sales Representative 11/21/22 Lakia Medina MD [address] [facility] [address] Physician Hematology/Oncology 06/24/24 Can Stacker Relationship Specialty Start Date End Date Julian Burton MD [address] [place] [address], [place] [address] PCP - General Family Medicine 03/09/23 Can Stacker Relationship Specialty Start Date End Date Julian Burton MD PCP - General Family Medicine 10/26/[address] [facility] [place] [address] Registered Dietitian Nutrition 11/04/22 Chiqui Modi, ONELIA [address] [place] [place] [address] Specialty Securities Dealer Hematology/Oncology 11/15/22 Tremaine Gomez PA-C [address] [place] [address] Physician Inshore Undersea Warfare Officer Hematology/Oncology 11/15/22 July Wiley, CLOTHING PRESSER Truck Sales Representative 11/21/22 Lakia Medina MD [address] [place] [address] [place] [address] Physician Hematology/Oncology 06/24/24 Can Stacker Relationship Specialty Start Date End Date Julian Burton MD PCP - General Family Medicine 10/26/[address] [place] [address] Registered Dietitian Nutrition 11/04/22 Chiqui Modi, RN [address] [place] [address] Specialty Securities Dealer Hematology/Oncology 11/15/22 Tremiane Gomez PA-C [address] [place] [address] [place] [address] Physician Inshore Undersea Warfare Officer Hematology/Oncology 11/15/22 July Wiley, [facility] Truck Sales Representative 11/21/22 Lakia Medina MD [address] [place] [address] Physician Hematology/Oncology 06/24/24 Can Stacker Relationship Specialty Start Date End Date Julian Burton MD PCP - General Family Medicine 10/26/[address] [facility] [place] [address] Registered Dietitian Nutrition 11/04/22 Chiqui Modi, ONELIA [address] [facility] [address] Specialty Securities Dealer Hematology/Oncology 11/15/22 Tremaine Gomez PA-C [address] [place] [address] Physician Inshore Undersea Warfare Officer Hematology/Oncology 11/15/22 July Wiley, CLOTHING PRESSER Truck Sales Representative 11/21/22 Lakia Medina MD [address] [facility] [place] [address] Physician Hematology/Oncology 06/24/24 Can Stacker Relationship Specialty Start Date End Date Julian Burton MD PCP - General Family Medicine 10/26/[address] [facility] [place] [address] Registered Dietitian Nutrition 11/04/22 Chiqui Modi RN [address] [facility] [place] [address] Specialty Securities Dealer Hematology/Oncology 11/15/22 Tremaine Gomez PA-C [address] [place] [address] Physician Inshore Undersea Warfare Officer Hematology/Oncology 11/15/22 July Wiley, ROB Truck Sales Representative 11/21/22 Lakia Medina MD [address] [place], [place] [address] Physician Hematology/Oncology 06/24/24 Can Stacker Relationship Specialty Start Date End Date Julian Burton MD PCP - General Family Medicine 10/26/[address] [place], [place] [id number] Registered Dietitian Nutrition 11/04/22 Chiqui Modi, RN [address] [place] [address] Specialty Securities Dealer Hematology/Oncology 11/15/22 Tremaine Gomez, PAMaguiC [address] [place] [address] [place] [address] Physician Inshore Undersea Warfare Officer Hematology/Oncology 11/15/22 July Wiley [employer]OTHING PRESSER Truck Sales Representative 11/21/22 Lakia Medina MD [address] [place] [address] [place], [place] [id number] Physician Hematology/Oncology 06/24/24 Can Stacker Relationship Specialty Start Date End Date Julian Burton MD [address] [place] [address] PCP - General Family Medicine 04/28/25 Can Stacker Relationship Specialty Start Date End Date Julian Burton MD [address] [place] [address] PCP - General Family Medicine 04/28/25 Can Stacker Relationship Specialty Start Date End Date Julian Burton MD PCP - General Family Medicine 10/26/[address] [place] [address] Registered Dietitian Nutrition 11/04/22 Chiqui Modi, ONELIA [address] [place] [address] Specialty Securities Dealer Hematology/Oncology 11/15/22 Tremaine Gomez PA-C [address] [place] [address] [place] [address] Physician Inshore Undersea Warfare Officer Hematology/Oncology 11/15/22 July Wiley, CLOTHING PRESSER Truck Sales Representative 11/21/22 Lakia Medina MD [address] [place] [address] [place] [address] Physician Hematology/Oncology 06/24/24 Can Stacker Relationship Specialty Start Date End Date Julian Burton MD PCP - General Family Medicine 10/26/[address] [place] [address] [place] [address] Registered Dietitian Nutrition 11/04/22 Chiqui Modi RN [address] [place] [address] Specialty Securities Dealer Hematology/Oncology 11/15/22 Tremaine Gomez PA-C [address] [place] [address] [place] [address] Physician Inshore Undersea Warfare Officer Hematology/Oncology 11/15/22 July Wiley, CLOTHING PRESSER Truck Sales Representative 11/21/22 Lakia Medina MD [address] [place] [address] [place] [address] Physician Hematology/Oncology 06/24/24 Can Stacker Relationship Specialty Start Date End Date Julian Burton MD PCP - General Family Medicine 10/26/[address] [facility] [address] [place] [address] Registered Dietitian Nutrition 11/04/22 Chiqui Modi, RN [address] [place] [address] Specialty Securities Dealer Hematology/Oncology 11/15/22 Tremaine Gomez, OLIMPIAC [address] [place] [address] Physician Inshore Undersea Warfare Officer Hematology/Oncology 11/15/22 July Wiley, CLOTHING PRESSER Truck Sales Representative 11/21/22 Lakia Medina MD [address] [facility] [place] [address] Physician Hematology/Oncology 06/24/24 Can Stacker Relationship Specialty Start Date End Date Julian Burton MD PCP - General Family Medicine 10/26/[address] [facility] [address] [address] Registered Dietitian Nutrition 11/04/22 Chiqui Moid RN [address] [facility] [address] [address] Specialty Securities Dealer Hematology/Oncology 11/15/22 Tremaine Gomez PA-C [address] [place] [address] Physician Inshore Undersea Warfare Officer Hematology/Oncology 11/15/22 July Wiley, ROB Truck Sales Representative 11/21/22 Lakia Medina MD [address] [place] [address] (work) Physician Hematology/Oncology 06/24/24 Source Comments (unrecognize d section and content) In the event this informatio n is protected by the Federal Confidentiality of Alcohol and Drug Abuse Patient Records regulations: The Federal rules restrict any use of the information to criminally investigate or prosecute any alcohol or drug abuse patient.[facility], [place]In the event this information is protected by the Federal Confidentiality of Alcohol and Drug Abuse Patient Records regulations: The Federal rules restrict any use of the information to criminally investigate or prosecute any alcohol or drug abuse patient.[facility], [place]In the event this information is protected by the Federal Confidentiality of Alcohol and Drug Abuse Patient Records regulations: The Federal rules restrict any use of the information to criminally investigate or prosecute any alcohol or drug abuse patient.[facility], [place]woodIn the event this information is protected by the Federal Confidentiality of Alcohol and Drug Abuse Patient Records regulations: The Federal rules restrict any use of the information to criminally investigate or prosecute any alcohol or drug abuse patient.[facility], [place]woodIn the event this information is protected by the Federal Confidentiality of Alcohol and Drug Abuse Patient Records regulations: The Federal rules restrict any use of the information to criminally investigate or prosecute any alcohol or drug abuse patient.[facility], [place]woodIn the event this information is protected by the Federal Confidentiality of Alcohol and Drug Abuse Patient Records regulations: The Federal rules restrict any use of the information to criminally investigate or prosecute any alcohol or drug abuse patient.[facility], [place]woodIn the event this information is protected by the Federal Confidentiality of Alcohol and Drug Abuse Patient Records regulations: The Federal rules restrict any use of the information to criminally investigate or prosecute any alcohol or drug abuse patient.[facility], [place]woodIn the event this information is protected by the Federal Confidentiality of Alcohol and Drug Abuse Patient Records regulations: The Federal rules restrict any use of the information to criminally investigate or prosecute any alcohol or drug abuse patient.[facility], [place]woodIn the event this information is protected by the Federal Confidentiality of Alcohol and Drug Abuse Patient Records regulations: The Federal rules restrict any use of the information to criminally investigate or prosecute any alcohol or drug abuse patient.[facility], [place]woodIn the event this information is protected by the Federal Confidentiality of Alcohol and Drug Abuse Patient Records regulations: The Federal rules restrict any use of the information to criminally investigate or prosecute any alcohol or drug abuse patient.[facility], [place]woodIn the event this information is protected by the Federal Confidentiality of Alcohol and Drug Abuse Patient Records regulations: The Federal rules restrict any use of the information to criminally investigate or prosecute any alcohol or drug abuse patient.[facility], [place]woodIn the event this information is protected by the Federal Confidentiality of Alcohol and Drug Abuse Patient Records regulations: The Federal rules restrict any use of the information to criminally investigate or prosecute any alcohol or drug abuse patient.[facility], [place]woodIn the event this information is protected by the Federal Confidentiality of Alcohol and Drug Abuse Patient Records regulations: The Federal rules restrict any use of the information to criminally investigate or prosecute any alcohol or drug abuse patient.[facility], [place]woodIn the event this information is protected by the Federal Confidentiality of Alcohol and Drug Abuse Patient Records regulations: The Federal rules restrict any use of the information to criminally investigate or prosecute any alcohol or drug abuse patient.[facility], [place]woodIn the event this information is protected by the Federal Confidentiality of Alcohol and Drug Abuse Patient Records regulations: The Federal rules restrict any use of the information to criminally investigate or prosecute any alcohol or drug abuse patient.[facility], [place]woodIn the event this information is protected by the Federal Confidentiality of Alcohol and Drug Abuse Patient Records regulations: The Federal rules restrict any use of the information to criminally investigate or prosecute any alcohol or drug abuse patient.[facility], [place]woodIn the event this information is protected by the Federal Confidentiality of Alcohol and Drug Abuse Patient Records regulations: The Federal rules restrict any use of the information to criminally investigate or prosecute any alcohol or drug abuse patient.[facility], [place]woodIn the event this information is protected by the Federal Confidentiality of Alcohol and Drug Abuse Patient Records regulations: The Federal rules restrict any use of the information to criminally investigate or prosecute any alcohol or drug abuse patient.[facility], [place]woodIn the event this information is protected by the Federal Confidentiality of Alcohol and Drug Abuse Patient Records regulations: The Federal rules restrict any use of the information to criminally investigate or prosecute any alcohol or drug abuse patient.[facility], [place]woodIn the event this information is protected by the Federal Confidentiality of Alcohol and Drug Abuse Patient Records regulations: The Federal rules restrict any use of the information to criminally investigate or prosecute any alcohol or drug abuse patient.[facility], [place]woodIn the event this information is protected by the Federal Confidentiality of Alcohol and Drug Abuse Patient Records regulations: The Federal rules restrict any use of the information to criminally investigate or prosecute any alcohol or drug abuse patient.[facility], [place]woodIn the event this information is protected by the Federal Confidentiality of Alcohol and Drug Abuse Patient Records regulations: The Federal rules restrict any use of the information to criminally investigate or prosecute any alcohol or drug abuse patient.[facility], [place]woodIn the event this information is protected by the Federal Confidentiality of Alcohol and Drug Abuse Patient Records regulations: The Federal rules restrict any use of the information to criminally investigate or prosecute any alcohol or drug abuse patient.[facility], [place]woodIn the event this information is protected by the Federal Confidentiality of Alcohol and Drug Abuse Patient Records regulations: The Federal rules restrict any use of the information to criminally investigate or prosecute any alcohol or drug abuse patient.[facility], [place]woodIn the event this information is protected by the Federal Confidentiality of Alcohol and Drug Abuse Patient Records regulations: The Federal rules restrict any use of the information to criminally investigate or prosecute any alcohol or drug abuse patient.[facility], [place]woodIn the event this information is protected by the Federal Confidentiality of Alcohol and Drug Abuse Patient Records regulations: The Federal rules restrict any use of the information to criminally investigate or prosecute any alcohol or drug abuse patient.[facility], [place]woodIn the event this information is protected by the Federal Confidentiality of Alcohol and Drug Abuse Patient Records regulations: The Federal rules restrict any use of the information to criminally investigate or prosecute any alcohol or drug abuse patient.[facility], [place]woodIn the event this information is protected by the Federal Confidentiality of Alcohol and Drug Abuse Patient Records regulations: The Federal rules restrict any use of the information to criminally investigate or prosecute any alcohol or drug abuse patient.[facility], [place]woodIn the event this information is protected by the Federal Confidentiality of Alcohol and Drug Abuse Patient Records regulations: The Federal rules restrict any use of the information to criminally investigate or prosecute any alcohol or drug abuse patient.[facility], [place]woodIn the event this information is protected by the Federal Confidentiality of Alcohol and Drug Abuse Patient Records regulations: The Federal rules restrict any use of the information to criminally investigate or prosecute any alcohol or drug abuse patient.[facility], [place]woodIn the event this information is protected by the Federal Confidentiality of Alcohol and Drug Abuse Patient Records regulations: The Federal rules restrict any use of the information to criminally investigate or prosecute any alcohol or drug abuse patient.[facility], [place]woodIn the event this information is protected by the Federal Confidentiality of Alcohol and Drug Abuse Patient Records regulations: The Federal rules restrict any use of the information to criminally investigate or prosecute any alcohol or drug abuse patient.[facility], [place]woodIn the event this information is protected by the Federal Confidentiality of Alcohol and Drug Abuse Patient Records regulations: The Federal rules restrict any use of the information to criminally investigate or prosecute any alcohol or drug abuse patient.[facility], [place]woodIn the event this information is protected by the Federal Confidentiality of Alcohol and Drug Abuse Patient Records regulations: The Federal rules restrict any use of the information to criminally investigate or prosecute any alcohol or drug abuse patient.[facility], [place]woodIn the event this information is protected by the Federal Confidentiality of Alcohol and Drug Abuse Patient Records regulations: The Federal rules restrict any use of the information to criminally investigate or prosecute any alcohol or drug abuse patient.[facility], [place]woodIn the event this information is protected by the Federal Confidentiality of Alcohol and Drug Abuse Patient Records regulations: The Federal rules restrict any use of the information to criminally investigate or prosecute any alcohol or drug abuse patient.[facility], [place]woodIn the event this information is protected by the Federal Confidentiality of Alcohol and Drug Abuse Patient Records regulations: The Federal rules restrict any use of the information to criminally investigate or prosecute any alcohol or drug abuse patient.[facility], [place]woodIn the event this information is protected by the Federal Confidentiality of Alcohol and Drug Abuse Patient Records regulations: The Federal rules restrict any use of the information to criminally investigate or prosecute any alcohol or drug abuse patient.[facility], [place]woodIn the event this information is protected by the Federal Confidentiality of Alcohol and Drug Abuse Patient Records regulations: The Federal rules restrict any use of the information to criminally investigate or prosecute any alcohol or drug abuse patient.[facility], [place]woodIn the event this information is protected by the Federal Confidentiality of Alcohol and Drug Abuse Patient Records regulations: The Federal rules restrict any use of the information to criminally investigate or prosecute any alcohol or drug abuse patient.[facility], [place]woodIn the event this information is protected by the Federal Confidentiality of Alcohol and Drug Abuse Patient Records regulations: The Federal rules restrict any use of the information to criminally investigate or prosecute any alcohol or drug abuse patient.[facility], [place]woodIn the event this information is protected by the Federal Confidentiality of Alcohol and Drug Abuse Patient Records regulations: The Federal rules restrict any use of the information to criminally investigate or prosecute any alcohol or drug abuse patient.[facility], [place]woodIn the event this information is protected by the Federal Confidentiality of Alcohol and Drug Abuse Patient Records regulations: The Federal rules restrict any use of the information to criminally investigate or prosecute any alcohol or drug abuse patient.[facility], [place]woodIn the event this information is protected by the Federal Confidentiality of Alcohol and Drug Abuse Patient Records regulations: The Federal rules restrict any use of the information to criminally investigate or prosecute any alcohol or drug abuse patient.[facility], [place]woodIn the event this information is protected by the Federal Confidentiality of Alcohol and Drug Abuse Patient Records regulations: The Federal rules restrict any use of the information to criminally investigate or prosecute any alcohol or drug abuse patient.[facility], [place]woodIn the event this information is protected by the Federal Confidentiality of Alcohol and Drug Abuse Patient Records regulations: The Federal rules restrict any use of the information to criminally investigate or prosecute any alcohol or drug abuse patient.[facility], [place]woodIn the event this information is protected by the Federal Confidentiality of Alcohol and Drug Abuse Patient Records regulations: The Federal rules restrict any use of the information to criminally investigate or prosecute any alcohol or drug abuse patient.[facility], [place]woodIn the event this information is protected by the Federal Confidentiality of Alcohol and Drug Abuse Patient Records regulations: The Federal rules restrict any use of the information to criminally investigate or prosecute any alcohol or drug abuse patient.[facility], [place]woodIn the event this information is protected by the Federal Confidentiality of Alcohol and Drug Abuse Patient Records regulations: The Federal rules restrict any use of the information to criminally investigate or prosecute any alcohol or drug abuse patient.[facility], [place]woodIn the event this information is protected by the Federal Confidentiality of Alcohol and Drug Abuse Patient Records regulations: The Federal rules restrict any use of the information to criminally investigate or prosecute any alcohol or drug abuse patient.[facility], [place]woodIn the event this information is protected by the Federal Confidentiality of Alcohol and Drug Abuse Patient Records regulations: The Federal rules restrict any use of the information to criminally investigate or prosecute any alcohol or drug abuse patient.[facility], [place]woodIn the event this information is protected by the Federal Confidentiality of Alcohol and Drug Abuse Patient Records regulations: The Federal rules restrict any use of the information to criminally investigate or prosecute any alcohol or drug abuse patient.[facility], [place]woodIn the event this information is protected by the Federal Confidentiality of Alcohol and Drug Abuse Patient Records regulations: The Federal rules restrict any use of the information to criminally investigate or prosecute any alcohol or drug abuse patient.[facility], [place]woodIn the event this information is protected by the Federal Confidentiality of Alcohol and Drug Abuse Patient Records regulations: The Federal rules restrict any use of the information to criminally investigate or prosecute any alcohol or drug abuse patient.[facility], [place]woodIn the event this information is protected by the Federal Confidentiality of Alcohol and Drug Abuse Patient Records regulations: The Federal rules restrict any use of the information to criminally investigate or prosecute any alcohol or drug abuse patient.[facility], [place]In the event this information is protected by the Federal Confidentiality of Alcohol and Drug Abuse Patient Records regulations: The Federal rules restrict any use of the information to criminally investigate or prosecute any alcohol or drug abuse patient.[facility], [place]woodIn the event this information is protected by the Federal Confidentiality of Alcohol and Drug Abuse Patient Records regulations: The Federal rules restrict any use of the information to criminally investigate or prosecute any alcohol or drug abuse patient.[facility], [place]woodIn the event this information is protected by the Federal Confidentiality of Alcohol and Drug Abuse Patient Records regulations: The Federal rules restrict any use of the information to criminally investigate or prosecute any alcohol or drug abuse patient.[facility], [place]woodIn the event this information is protected by the Federal Confidentiality of Alcohol and Drug Abuse Patient Records regulations: The Federal rules restrict any use of the information to criminally investigate or prosecute any alcohol or drug abuse patient.[facility], [place]In the event this information is protected by the Federal Confidentiality of Alcohol and Drug Abuse Patient Records regulations: The Federal rules restrict any use of the information to criminally investigate or prosecute any alcohol or drug abuse patient.[facility], [place]In the event this information is protected by the Federal Confidentiality of Alcohol and Drug Abuse Patient Records regulations: The Federal rules restrict any use of the information to criminally investigate or prosecute any alcohol or drug abuse patient.[facility], [place]woodIn the event this information is protected by the Federal Confidentiality of Alcohol and Drug Abuse Patient Records regulations: The Federal rules restrict any use of the information to criminally investigate or prosecute any alcohol or drug abuse patient.[facility], [place]woodIn the event this information is protected by the Federal Confidentiality of Alcohol and Drug Abuse Patient Records regulations: The Federal rules restrict any use of the information to criminally investigate or prosecute any alcohol or drug abuse patient.[facility], BeachwoodIn the event this information is protected by the Federal Confidentiality of Alcohol and Drug Abuse Patient Records regulations: The Federal rules restrict any use of the information to criminally investigate or prosecute any alcohol or drug abuse patient.[facility], [place]In the event this information is protected by the Federal Confidentiality of Alcohol and Drug Abuse Patient Records regulations: The Federal rules restrict any use of the information to criminally investigate or prosecute any alcohol or drug abuse patient.[facility], [place]In the event this information is protected by the Federal Confidentiality of Alcohol and Drug Abuse Patient Records regulations: The Federal rules restrict any use of the information to criminally investigate or prosecute any alcohol or drug abuse patient.[facility], [place]In the event this information is protected by the Federal Confidentiality of Alcohol and Drug Abuse Patient Records regulations: The Federal rules restrict any use of the information to criminally investigate or prosecute any alcohol or drug abuse patient.[facility], [place]In the event this information is protected by the Federal Confidentiality of Alcohol and Drug Abuse Patient Records regulations: The Federal rules restrict any use of the information to criminally investigate or prosecute any alcohol or drug abuse patient.[facility], [place]In the event this information is protected by the Federal Confidentiality of Alcohol and Drug Abuse Patient Records regulations: The Federal rules restrict any use of the information to criminally investigate or prosecute any alcohol or drug abuse patient.[facility], [place]In the event this information is protected by the Federal Confidentiality of Alcohol and Drug Abuse Patient Records regulations: The Federal rules restrict any use of the information to criminally investigate or prosecute any alcohol or drug abuse patient.[facility], [place]In the event this information is protected by the Federal Confidentiality of Alcohol and Drug Abuse Patient Records regulations: The Federal rules restrict any use of the information to criminally investigate or prosecute any alcohol or drug abuse patient.[facility], [place]In the event this information is protected by the Federal Confidentiality of Alcohol and Drug Abuse Patient Records regulations: The Federal rules restrict any use of the information to criminally investigate or prosecute any alcohol or drug abuse patient.[facility], [place]In the event this information is protected by the Federal Confidentiality of Alcohol and Drug Abuse Patient Records regulations: The Federal rules restrict any use of the information to criminally investigate or prosecute any alcohol or drug abuse patient.[facility], [place]In the event this information is protected by the Federal Confidentiality of Alcohol and Drug Abuse Patient Records regulations: The Federal rules restrict any use of the information to criminally investigate or prosecute any alcohol or drug abuse patient.[facility], [place]In the event this information is protected by the Federal Confidentiality of Alcohol and Drug Abuse Patient Records regulations: The Federal rules restrict any use of the information to criminally investigate or prosecute any alcohol or drug abuse patient.[facility], [place]In the event this information is protected by the Federal Confidentiality of Alcohol and Drug Abuse Patient Records regulations: The Federal rules restrict any use of the information to criminally investigate or prosecute any alcohol or drug abuse patient.[facility], [place]In the event this information is protected by the Federal Confidentiality of Alcohol and Drug Abuse Patient Records regulations: The Federal rules restrict any use of the information to criminally investigate or prosecute any alcohol or drug abuse patient.[facility], [place]In the event this information is protected by the Federal Confidentiality of Alcohol and Drug Abuse Patient Records regulations: The Federal rules restrict any use of the information to criminally investigate or prosecute any alcohol or drug abuse patient.[facility], [place]In the event this information is protected by the Federal Confidentiality of Alcohol and Drug Abuse Patient Records regulations: The Federal rules restrict any use of the information to criminally investigate or prosecute any alcohol or drug abuse patient.[facility], [place]In the event this information is protected by the Federal Confidentiality of Alcohol and Drug Abuse Patient Records regulations: The Federal rules restrict any use of the information to criminally investigate or prosecute any alcohol or drug abuse patient.[facility], [place]In the event this information is protected by the Federal Confidentiality of Alcohol and Drug Abuse Patient Records regulations: The Federal rules restrict any use of the information to criminally investigate or prosecute any alcohol or drug abuse patient.[facility], [place]In the event this information is protected by the Federal Confidentiality of Alcohol and Drug Abuse Patient Records regulations: The Federal rules restrict any use of the information to criminally investigate or prosecute any alcohol or drug abuse patient.[facility], [place]In the event this information is protected by the Federal Confidentiality of Alcohol and Drug Abuse Patient Records regulations: The Federal rules restrict any use of the information to criminally investigate or prosecute any alcohol or drug abuse patient.[facility], [place]In the event this information is protected by the Federal Confidentiality of Alcohol and Drug Abuse Patient Records regulations: The Federal rules restrict any use of the information to criminally investigate or prosecute any alcohol or drug abuse patient.[facility], [place]In the event this information is protected by the Federal Confidentiality of Alcohol and Drug Abuse Patient Records regulations: The Federal rules restrict any use of the information to criminally investigate or prosecute any alcohol or drug abuse patient.[facility], [place]In the event this information is protected by the Federal Confidentiality of Alcohol and Drug Abuse Patient Records regulations: The Federal rules restrict any use of the information to criminally investigate or prosecute any alcohol or drug abuse patient.[facility], [place]In the event this information is protected by the Federal Confidentiality of Alcohol and Drug Abuse Patient Records regulations: The Federal rules restrict any use of the information to criminally investigate or prosecute any alcohol or drug abuse patient.[facility], [place]In the event this information is protected by the Federal Confidentiality of Alcohol and Drug Abuse Patient Records regulations: The Federal rules restrict any use of the information to criminally investigate or prosecute any alcohol or drug abuse patient.[facility], [place]In the event this information is protected by the Federal Confidentiality of Alcohol and Drug Abuse Patient Records regulations: The Federal rules restrict any use of the information to criminally investigate or prosecute any alcohol or drug abuse patient.[facility], [place]In the event this information is protected by the Federal Confidentiality of Alcohol and Drug Abuse Patient Records regulations: The Federal rules restrict any use of the information to criminally investigate or prosecute any alcohol or drug abuse patient.[facility], [place]In the event this information is protected by the Federal Confidentiality of Alcohol and Drug Abuse Patient Records regulations: The Federal rules restrict any use of the information to criminally investigate or prosecute any alcohol or drug abuse patient.[facility], [place]In the event this information is protected by the Federal Confidentiality of Alcohol and Drug Abuse Patient Records regulations: The Federal rules restrict any use of the information to criminally investigate or prosecute any alcohol or drug abuse patient.[facility], [place]In the event this information is protected by the Federal Confidentiality of Alcohol and Drug Abuse Patient Records regulations: The Federal rules restrict any use of the information to criminally investigate or prosecute any alcohol or drug abuse patient.[facility], [place]In the event this information is protected by the Federal Confidentiality of Alcohol and Drug Abuse Patient Records regulations: The Federal rules restrict any use of the information to criminally investigate or prosecute any alcohol or drug abuse patient.[facility], [place]In the event this information is protected by the Federal Confidentiality of Alcohol and Drug Abuse Patient Records regulations: The Federal rules restrict any use of the information to criminally investigate or prosecute any alcohol or drug abuse patient.[facility], [place]In the event this information is protected by the Federal Confidentiality of Alcohol and Drug Abuse Patient Records regulations: The Federal rules restrict any use of the information to criminally investigate or prosecute any alcohol or drug abuse patient.[facility], [place]In the event this information is protected by the Federal Confidentiality of Alcohol and Drug Abuse Patient Records regulations: The Federal rules restrict any use of the information to criminally investigate or prosecute any alcohol or drug abuse patient.[facility], [place]In the event this information is protected by the Federal Confidentiality of Alcohol and Drug Abuse Patient Records regulations: The Federal rules restrict any use of the information to criminally investigate or prosecute any alcohol or drug abuse patient.[facility], [place]In the event this information is protected by the Federal Confidentiality of Alcohol and Drug Abuse Patient Records regulations: The Federal rules restrict any use of the information to criminally investigate or prosecute any alcohol or drug abuse patient.[facility], [place]In the event this information is protected by the Federal Confidentiality of Alcohol and Drug Abuse Patient Records regulations: The Federal rules restrict any use of the information to criminally investigate or prosecute any alcohol or drug abuse patient.[facility], [place]In the event this information is protected by the Federal Confidentiality of Alcohol and Drug Abuse Patient Records regulations: The Federal rules restrict any use of the information to criminally investigate or prosecute any alcohol or drug abuse patient.[facility], [place]In the event this information is protected by the Federal Confidentiality of Alcohol and Drug Abuse Patient Records regulations: The Federal rules restrict any use of the information to criminally investigate or prosecute any alcohol or drug abuse patient.[facility], [place]In the event this information is protected by the Federal Confidentiality of Alcohol and Drug Abuse Patient Records regulations: The Federal rules restrict any use of the information to criminally investigate or prosecute any alcohol or drug abuse patient.[facility], [place]In the event this information is protected by the Federal Confidentiality of Alcohol and Drug Abuse Patient Records regulations: The Federal rules restrict any use of the information to criminally investigate or prosecute any alcohol or drug abuse patient.[facility], [place]In the event this information is protected by the Federal Confidentiality of Alcohol and Drug Abuse Patient Records regulations: The Federal rules restrict any use of the information to criminally investigate or prosecute any alcohol or drug abuse patient.[facility], [place]In the event this information is protected by the Federal Confidentiality of Alcohol and Drug Abuse Patient Records regulations: The Federal rules restrict any use of the information to criminally investigate or prosecute any alcohol or drug abuse patient.[facility], [place]In the event this information is protected by the Federal Confidentiality of Alcohol and Drug Abuse Patient Records regulations: The Federal rules restrict any use of the information to criminally investigate or prosecute any alcohol or drug abuse patient.[facility], [place]In the event this information is protected by the Federal Confidentiality of Alcohol and Drug Abuse Patient Records regulations: The Federal rules restrict any use of the information to criminally investigate or prosecute any alcohol or drug abuse patient.[facility], [place]In the event this information is protected by the Federal Confidentiality of Alcohol and Drug Abuse Patient Records regulations: The Federal rules restrict any use of the information to criminally investigate or prosecute any alcohol or drug abuse patient.[facility], [place]In the event this information is protected by the Federal Confidentiality of Alcohol and Drug Abuse Patient Records regulations: The Federal rules restrict any use of the information to criminally investigate or prosecute any alcohol or drug abuse patient.[facility], [place]In the event this information is protected by the Federal Confidentiality of Alcohol and Drug Abuse Patient Records regulations: The Federal rules restrict any use of the information to criminally investigate or prosecute any alcohol or drug abuse patient.[facility], [place]In the event this information is protected by the Federal Confidentiality of Alcohol and Drug Abuse Patient Records regulations: The Federal rules restrict any use of the information to criminally investigate or prosecute any alcohol or drug abuse patient.[facility], [place]In the event this information is protected by the Federal Confidentiality of Alcohol and Drug Abuse Patient Records regulations: The Federal rules restrict any use of the information to criminally investigate or prosecute any alcohol or drug abuse patient.[facility], [place]In the event this information is protected by the Federal Confidentiality of Alcohol and Drug Abuse Patient Records regulations: The Federal rules restrict any use of the information to criminally investigate or prosecute any alcohol or drug abuse patient.[facility], [place]In the event this information is protected by the Federal Confidentiality of Alcohol and Drug Abuse Patient Records regulations: The Federal rules restrict any use of the information to criminally investigate or prosecute any alcohol or drug abuse patient.[facility], [place]In the event this information is protected by the Federal Confidentiality of Alcohol and Drug Abuse Patient Records regulations: The Federal rules restrict any use of the information to criminally investigate or prosecute any alcohol or drug abuse patient.[facility], [place]In the event this information is protected by the Federal Confidentiality of Alcohol and Drug Abuse Patient Records regulations: The Federal rules restrict any use of the information to criminally investigate or prosecute any alcohol or drug abuse patient.[facility], [place]In the event this information is protected by the Federal Confidentiality of Alcohol and Drug Abuse Patient Records regulations: The Federal rules restrict any use of the information to criminally investigate or prosecute any alcohol or drug abuse patient.[facility], [place]In the event this information is protected by the Federal Confidentiality of Alcohol and Drug Abuse Patient Records regulations: The Federal rules restrict any use of the information to criminally investigate or prosecute any alcohol or drug abuse patient.[facility], [place]In the event this information is protected by the Federal Confidentiality of Alcohol and Drug Abuse Patient Records regulations: The Federal rules restrict any use of the information to criminally investigate or prosecute any alcohol or drug abuse patient.[facility], [place]In the event this information is protected by the Federal Confidentiality of Alcohol and Drug Abuse Patient Records regulations: The Federal rules restrict any use of the information to criminally investigate or prosecute any alcohol or drug abuse patient.[facility], [place]In the event this information is protected by the Federal Confidentiality of Alcohol and Drug Abuse Patient Records regulations: The Federal rules restrict any use of the information to criminally investigate or prosecute any alcohol or drug abuse patient.[facility], [place]In the event this information is protected by the Federal Confidentiality of Alcohol and Drug Abuse Patient Records regulations: The Federal rules restrict any use of the information to criminally investigate or prosecute any alcohol or drug abuse patient.[facility], [place]In the event this information is protected by the Federal Confidentiality of Alcohol and Drug Abuse Patient Records regulations: The Federal rules restrict any use of the information to criminally investigate or prosecute any alcohol or drug abuse patient.[facility], [place]In the event this information is protected by the Federal Confidentiality of Alcohol and Drug Abuse Patient Records regulations: The Federal rules restrict any use of the information to criminally investigate or prosecute any alcohol or drug abuse patient.[facility], [place]In the event this information is protected by the Federal Confidentiality of Alcohol and Drug Abuse Patient Records regulations: The Federal rules restrict any use of the information to criminally investigate or prosecute any alcohol or drug abuse patient.[facility], [place]In the event this information is protected by the Federal Confidentiality of Alcohol and Drug Abuse Patient Records regulations: The Federal rules restrict any use of the information to criminally investigate or prosecute any alcohol or drug abuse patient.[facility], [place]In the event this information is protected by the Federal Confidentiality of Alcohol and Drug Abuse Patient Records regulations: The Federal rules restrict any use of the information to criminally investigate or prosecute any alcohol or drug abuse patient.[facility], [place]In the event this information is protected by the Federal Confidentiality of Alcohol and Drug Abuse Patient Records regulations: The Federal rules restrict any use of the information to criminally investigate or prosecute any alcohol or drug abuse patient.[facility], [place]In the event this information is protected by the Federal Confidentiality of Alcohol and Drug Abuse Patient Records regulations: The Federal rules restrict any use of the information to criminally investigate or prosecute any alcohol or drug abuse patient.[facility], [place]In the event this information is protected by the Federal Confidentiality of Alcohol and Drug Abuse Patient Records regulations: The Federal rules restrict any use of the information to criminally investigate or prosecute any alcohol or drug abuse patient.[facility], [place]In the event this information is protected by the Federal Confidentiality of Alcohol and Drug Abuse Patient Records regulations: The Federal rules restrict any use of the information to criminally investigate or prosecute any alcohol or drug abuse patient.[facility], [place]In the event this information is protected by the Federal Confidentiality of Alcohol and Drug Abuse Patient Records regulations: The Federal rules restrict any use of the information to criminally investigate or prosecute any alcohol or drug abuse patient.[facility], [place]In the event this information is protected by the Federal Confidentiality of Alcohol and Drug Abuse Patient Records regulations: The Federal rules restrict any use of the information to criminally investigate or prosecute any alcohol or drug abuse patient.[facility], [place]In the event this information is protected by the Federal Confidentiality of Alcohol and Drug Abuse Patient Records regulations: The Federal rules restrict any use of the information to criminally investigate or prosecute any alcohol or drug abuse patient.[facility], [place]In the event this information is protected by the Federal Confidentiality of Alcohol and Drug Abuse Patient Records regulations: The Federal rules restrict any use of the information to criminally investigate or prosecute any alcohol or drug abuse patient.[facility], [place]In the event this information is protected by the Federal Confidentiality of Alcohol and Drug Abuse Patient Records regulations: The Federal rules restrict any use of the information to criminally investigate or prosecute any alcohol or drug abuse patient.[facility], [place]In the event this information is protected by the Federal Confidentiality of Alcohol and Drug Abuse Patient Records regulations: The Federal rules restrict any use of the information to criminally investigate or prosecute any alcohol or drug abuse patient.[facility], [place]woodIn the event this information is protected by the Federal Confidentiality of Alcohol and Drug Abuse Patient Records regulations: The Federal rules restrict any use of the information to criminally investigate or prosecute any alcohol or drug abuse patient.[facility], [place]woodIn the event this information is protected by the Federal Confidentiality of Alcohol and Drug Abuse Patient Records regulations: The Federal rules restrict any use of the information to criminally investigate or prosecute any alcohol or drug abuse patient.[facility], [place]woodIn the event this information is protected by the Federal Confidentiality of Alcohol and Drug Abuse Patient Records regulations: The Federal rules restrict any use of the information to criminally investigate or prosecute any alcohol or drug abuse patient.[facility], [place]woodIn the event this information is protected by the Federal Confidentiality of Alcohol and Drug Abuse Patient Records regulations: The Federal rules restrict any use of the information to criminally investigate or prosecute any alcohol or drug abuse patient.[facility], [place]wood[place] the event this information is protected by the Federal Confidentiality of Alcohol and Drug Abuse Patient Records regulations: The Federal rules restrict any use of the information to criminally investigate or prosecute any alcohol or drug abuse patient.[facility], [place]wood[place] the event this information is protected by the Federal Confidentiality of Alcohol and Drug Abuse Patient Records regulations: The Federal rules restrict any use of the information to criminally investigate or prosecute any alcohol or drug abuse patient.[facility] [place] the event this information is protected by the Federal Confidentiality of Alcohol and Drug Abuse Patient Records regulations: The Federal rules restrict any use of the information to criminally investigate or prosecute any alcohol or drug abuse patient.[facility] [place]woodIn the event this information is protected by the Federal Confidentiality of Alcohol and Drug Abuse Patient Records regulations: The Federal rules restrict any use of the information to criminally investigate or prosecute any alcohol or drug abuse patient.[facility] [place]woodIn the event this information is protected by the Federal Confidentiality of Alcohol and Drug Abuse Patient Records regulations: The Federal rules restrict any use of the information to criminally investigate or prosecute any alcohol or drug abuse patient.[facility] [place]woodIn the event this information is protected by the Federal Confidentiality of Alcohol and Drug Abuse Patient Records regulations: The Federal rules restrict any use of the information to criminally investigate or prosecute any alcohol or drug abuse patient.[facility] [place]woodIn the event this information is protected by the Federal Confidentiality of Alcohol and Drug Abuse Patient Records regulations: The Federal rules restrict any use of the information to criminally investigate or prosecute any alcohol or drug abuse patient.[facility] [place]woodIn the event this information is protected by the Federal Confidentiality of Alcohol and Drug Abuse Patient Records regulations: The Federal rules restrict any use of the information to criminally investigate or prosecute any alcohol or drug abuse patient.[facility] [place]woodIn the event this information is protected by the Federal Confidentiality of Alcohol and Drug Abuse Patient Records regulations: The Federal rules restrict any use of the information to criminally investigate or prosecute any alcohol or drug abuse patient.[facility], [place]woodIn the event this information is protected by the Federal Confidentiality of Alcohol and Drug Abuse Patient Records regulations: The Federal rules restrict any use of the information to criminally investigate or prosecute any alcohol or drug abuse patient.[facility], [place]woodIn the event this information is protected by the Federal Confidentiality of Alcohol and Drug Abuse Patient Records regulations: The Federal rules restrict any use of the information to criminally investigate or prosecute any alcohol or drug abuse patient.[facility], [place]woodIn the event this information is protected by the Federal Confidentiality of Alcohol and Drug Abuse Patient Records regulations: The Federal rules restrict any use of the information to criminally investigate or prosecute any alcohol or drug abuse patient.[facility], [place]woodIn the event this information is protected by the Federal Confidentiality of Alcohol and Drug Abuse Patient Records regulations: The Federal rules restrict any use of the information to criminally investigate or prosecute any alcohol or drug abuse patient.[facility], [place]woodIn the event this information is protected by the Federal Confidentiality of Alcohol and Drug Abuse Patient Records regulations: The Federal rules restrict any use of the information to criminally investigate or prosecute any alcohol or drug abuse patient.[facility], [place]woodIn the event this information is protected by the Federal Confidentiality of Alcohol and Drug Abuse Patient Records regulations: The Federal rules restrict any use of the information to criminally investigate or prosecute any alcohol or drug abuse patient.[facility] [place] Reason for Visit (unrecogniz ed section and content) Reason Comments Consult Specialty Diagnoses / Procedures Referred By Contac t Referred To Contact Radiation Oncology Diagnoses Oropharnyx cancer (HCC) Procedures RAD/ONC CONSULT OFFICE/OUTPATIENT [facility] 60 MINUTES Elizabeth Borjas MD [address] [place] [address] Referral ID Status Reason Start Date Expiration Date V isits Requested Visits Authorized [id number] Closed PCP Requested Referral 05/08/2024 05/08/2025 1 1 Reason Comments Head and Neck Cancer Specialty Diagnoses / Procedures Referred By Contac t Referred To Contact Radiation Oncology / RADIATION ONCOLOGY Diagnoses 1 Week Post XRT Last TX 01/06 Procedures EST POST 90 DAY RAD TX Nino Ivy MD [address] [place] [address] [place] [address] Nino Ivy MD [address] [place] [address] [place] [address] Referral ID Status Reason Start Date Expiration Date V isits Requested Visits Authorized [id number] Authorized 01/12/2023 10/08/2023 99 99 Reason Comments Post Radiation Treatment Follow Up Reason Comments oropharnyx cancer Specialty Diagnoses / Procedures Referred By Contac t Referred To Contact Diagnoses Oropharnyx cancer (HCC) Procedures CISPLATIN 10 MG INJECTION FOSAPREPITANT INJECTION Elizabeth Borjas MD [address] [place] [address] Hilario Treat [address] [place] [address] Referral ID Status Reason Start Date Expiration Date Visits Re quested Visits Authorized [id number] Closed 11/16/2022 12/29/2022 7 7 Reason Comments Patient Education Reason Comments Consult Reason Comments Patient Update Reason Comments Oropharnyx cancer New patient consult Specialty Diagnoses / Procedures Referred By Contac t Referred To Contact Oncology Diagnoses Oropharnyx cancer (HCC) Procedures CONSULT TO ONCOLOGY OFFICE/OUTPATIENT NEW HIGH MDM 60-74 MINUTES Nino Ivy MD [address] [place] [address] [place] [address] Referral ID Status Reason Start Date Expiration Date V isits Requested Visits Authorized [id number] Closed PCP Requested Referral 10/27/2022 10/27/2023 1 [...] MG INJECTION FOSAPREPITANT INJECTION Elizabeth Borjas MD [address] [place] [address] Hilario Treat [address] [place] [address] Referral ID Status Reason Start Date Expiration Date V isits Requested Visits Authorized [id number] Authorized 11/16/2022 12/29/2022 7 7 Reason Comments [...] WO IVCON DIAGNOSTIC COMPUTED TOMOGRAPHY THORAX W/O Elke Cruz MD [address] [place] [address] [place] [address] Referral ID Status Reason Start Date Expiration Date V isits Requested Visits Authorized [id number] Closed Auto-Generate d Referral 08/03/2023 09/01/2024 1 1 Specialty Diagnoses / Procedures Referred By Contac t Referred To Contact ADMITTING Diagnoses Bronchiolar disease Procedures BRNCC INCL FLUOR GDNCE DX W/CELL WASHG SPX BRONCHOSCOPY [facility] [address] Referral ID Status Reason Start Date Expiration Date Visits Re quested Visits Authorized [id number] 1 1 Reason Comments Head and Neck Cancer Follow up Reason Comments New Reason Comments Oropharnyx cancer OTV Reason Comments Cancer 1 month check Reason Comments Oropharnyx cancer OTV Reason Comments Care Coordination Thyroid medication Specialty Diagnoses / Procedures Referred By Contac t Referred To Contact Diagnoses Oropharnyx cancer (HCC) Procedures INJ PEMBROLIZUMAB Elizabeth Borjas MD [address] [place] [phone] Hilario Treat [address] [place] [address] Referral ID Status Reason Start Date Expiration Date V isits Requested Visits Authorized [id number] Authorized 12/14/2023 06/14/2024 99 99 Specialty Diagnoses / Procedures Referred By Contac t Referred To Contact Diagnoses Oropharnyx cancer (HCC) Procedures INJ. [id number] 10 MCG CARBOPLATIN INJECTION PALONOSETRON HCL INJ PEMBROLIZUMAB FOSAPREPITANT INJECTION Elizabeth Borjas MD [address] [place] [address] Hilario Treat [address] [place] [address] Referral ID Status Reason Start Date Expiration Date V isits Requested Visits Authorized [id number] Closed Patient Cleared - Admin/Chairm an/Director advise to proceed or did not respond 09/12/2023 04/16/2024 99 99 Reason Comments Oropharnyx cancer Reason Comments Orders Reason Comments oropharynx cancer Treatment visit Specialty Diagnoses / Procedures Referred By Contac t Referred To Contact Endocrinology Diagnoses Adrenal insufficiency (HCC) Procedures CONSULT TO ENDOCRINOLOGY OFFICE/OUTPATIENT NEW HIGH MDM 60 MINUTES Tremaine Gomez, NICANOR [address] [place] [address] [place] [address] Referral ID Status Reason Start Date Expiration Date V isits Requested Visits Authorized [id number] Closed PCP Requested Referral 03/28/2024 03/28/2025 1 1 Reason Comments Bronchoscopy Scheduling Reason Comments Pre-Op Visit Reason Comments Nodule Reason Comments Future Appointment Reason Comments Radiology CT Specialty Diagnoses / Procedures Referred By Contac t Referred To Contact CT IMAGING Diagnoses Oropharnyx cancer (HCC) Malaise and fatigue Thunderclap headache Procedures CT CHEST W IVCON DIAGNOSTIC COMPUTED TOMOGRAPHY THORAX W/CONTRAST Tremaine Gomez PA-C [address] [place], [place] [id number] Ct [facility] Referral ID Status Reason Start Date Expiration Date V isits Requested Visits Authorized [id number] Closed Auto-Generate d Referral 05/03/2024 10/08/2024 1 1 Reason Onset Date Comments Simulation Request Form 06/13/2024 Referral ID Status Reason Start Date Expiration Date V isits Requested Visits Authorized [id number] Authorized 12/14/2023 12/12/2024 99 99 Specialty Diagnoses / Procedures Referred By Contac t Referred To Contact CT IMAGING Diagnoses Oropharnyx cancer (HCC) Procedures CT CHEST W IVCON DIAGNOSTIC COMPUTED TOMOGRAPHY THORAX W/CONTRAST Elizabeth Borjas MD [address] [place] [address] [address] [address] [facility] Referral ID Status Reason Start Date Expiration Date V isits Requested Visits Authorized [id number] Closed Auto-Generate d Referral 12/05/2023 12/13/2024 1 1 Reason Comments Radiology NM Specialty Diagnoses / Procedures Referred By Contac t Referred To Contact MOLECULAR & FUNCTIONAL IMAGING Diagnoses Neoplasm of lung Procedures NM PET/CT SKULL-THIGH INITIAL PET IMAGING CT ATTENUATION SKULL BASE MID-THIGH Elizabeth Borjas MD [address] [place] [address] Molecular & Functional Imaging [address] [place] [address] Referral ID Status Reason Start Date Expiration Date V isits Requested Visits Authorized [id number] Closed Auto-Generate d Referral 09/07/2023 10/06/2023 1 1 Specialty Diagnoses / Procedures Referred By Contac t Referred To Contact CT IMAGING Diagnoses Oropharnyx cancer (HCC) Procedures CT CHEST WO IVCON DIAGNOSTIC COMPUTED TOMOGRAPHY THORAX W/O CNTRST Elizabeth Borjas MD [address] [place] [address] [address] [facility] Referral ID Status Reason Start Date Expiration Date V isits Requested Visits Authorized [id number] Closed Auto-Generate d Referral 07/19/2023 05/17/2024 1 1 Specialty Diagnoses / Procedures Referred By Contac t Referred To Contact MOLECULAR & FUNCTIONAL IMAGING Diagnoses Oropharnyx cancer (HCC) Procedures NM PET/CT SKULL-THIGH SUBSEQUENT PET IMAGING CT ATTENUATION SKULL BASE MID-THIGH Tremaine Gomez, NICANOR [address] [place] [address] Molecular & Functional Imaging [address] [place], [place] [id number] Referral ID Status Reason Start Date Expiration Date V isits Requested Visits Authorized [id number] Closed Auto-Generate d Referral 03/31/2023 04/29/2023 1 1 Reason Comments Spirometry Specialty Diagnoses / Procedures Referred By Contac t Referred To Contact [facility] Diagnoses 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) Procedures SPIROMETRY BASELINE ONLY SPMTRY W/VC EXPIRATORY MARCUS W/[place] [address] [place] [address] [facility] [address] [place] [address] Referral ID Status Reason Start Date Expiration Date V isits Requested Visits Authorized [id number] Closed Auto-Generate d Referral 06/11/2024 07/11/2025 1 1 Specialty Diagnoses / Procedures Referred By Contac t Referred To Contact [facility] Diagnoses 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) Procedures LUNG DIFFUSION CAPACITY (DLCO) [place] [address] [place] [address] [facility] [address] [place] [address] Referral ID Status Reason Start Date Expiration Date V isits Requested Visits Authorized [id number] Closed Auto-Generate d Referral 06/11/2024 07/11/2025 1 1 Specialty Diagnoses / Procedures Referred By Contac t Referred To Contact MOLECULAR & FUNCTIONAL IMAGING Diagnoses Oropharnyx cancer (HCC) Procedures NM PET/CT SKULL-THIGH INITIAL PET IMAGING CT ATTENUATION SKULL BASE MID-THIGH Nino Ivy MD [address] [place] [address] Molecular & Functional Imaging [address] [place] [address] Referral ID Status Reason Start Date Expiration Date V isits Requested Visits Authorized [id number] Closed Auto-Generate d Referral 10/28/2022 11/26/2022 1 1 Specialty Diagnoses / Procedures Referred By Contac t Referred To Contact Radiation Oncology / RADIATION ONCOLOGY Diagnoses Malignant neoplasm of base of tongue SIM/LEROY/ Head & Neck Procedures INTENSITY MODULATED RADIATION TX DLVR COMPLEX SIMULATION SERVANDO IMRT 35 fractions Nino Ivy MD [address] [place] [address] Nino Ivy MD [address] [place] [place] [address] Referral ID Status Reason Start Date Expiration Date Visits Re quested Visits Authorized [id number] Closed 11/14/2022 02/18/2023 36 36 Reason Comments Cancer 1 month check up Squ amous cell cancer of tongue Reason Comments Cancer 1 month check Squamo us cell cancer of tongue Reason Comments Oropharynx cancer OTV Reason Comments Cancer 1 mo check Specialty Diagnoses / Procedures Referred By Contac t Referred To Contact CT IMAGING Diagnoses Neoplasm of lung Procedures CT CHEST WO IVCON DIAGNOSTIC COMPUTED TOMOGRAPHY THORAX W/[place] [address] [place] [address] [place] [address] Referral ID Status Reason Start Date Expiration Date V isits Requested Visits Authorized [id number] Closed Auto-Generate d Referral 07/05/2024 08/04/2025 1 1 Reason Comments Cancer 1 month check Reason Comments Established Patient Referral ID Status Reason Start Date Expiration Date V isits Requested Visits Authorized [id number] Authorized 12/14/2023 10/08/2025 99 99 Reason Comments Established Patient Radiotherapy Follow-up Reason Comments Follow Up Reason Comments Thyroid Problem Reason Comments Med Change Request Reason Comments Cancer 3 month check Specialty Diagnoses / Procedures Referred By Contac t Referred To Contact CT IMAGING 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) Procedures CT ABDOMEN W IVCON CT ABDOMEN W/[place] [address] [place] [address] Phone: tel: fax: [place] [address] Referral ID Status Reason Start Date Expiration Date V isits Requested Visits Authorized [id number] Closed Auto-Generate d Referral 02/20/2025 04/06/2025 2 2 Reason Comments Forms/letter Reason Comments Malignant neoplasm of base of tongue Ishan atment visit Reason Comments Radiology CT Specialty Diagnoses / Procedures Referred By Contac t Referred To Contact CT IMAGING Diagnoses Malignant neoplasm of unspecified part of unspecified bronchus or lung (HCC) Procedures CT CHEST W IVCON DIAGNOSTIC COMPUTED TOMOGRAPHY THORAX W/CONTRAST Tayla Ellsworth MD [address] [place] [address] Phone: tel: fax: CT IMAGING [facility] Referral ID Status Reason Start Date Expiration Date V isits Requested Visits Authorized [id number] Closed Auto-Generate d Referral 02/20/2025 03/22/2026 1 1 Reason Comments Results (unrecognized sect ion and content) No Status Records FoundNo Status Records FoundNo Status Records FoundNo Status Records FoundNo Status Records FoundNo Status Records Found INFORMATION SOURCE (unrecogn ized section and content) DATE CREATED AUTHOR 12/17/2022 [facility] DATE CREATED AUTHOR AUTHOR'S ORGANIZ ATION 04/25/2024 [facility] DATE CREATED AUTHOR AUTHOR'S ORGANIZ ATION 05/28/2024 [facility] DATE CREATED AUTHOR AUTHOR'S ORGANIZ ATION 07/01/2024 [facility] DATE CREATED AUTHOR AUTHOR'S ORGANIZ ATION 05/03/2025 [facility] DATE CREATED AUTHOR AUTHOR'S ORGANIZ ATION 06/07/2025 [facility] Goals (unrecognized section and content) Goals may [...] BE BASED ON THE PRIMARY CLINICAL RECORDS. [employer] provides no warranty or guarantee of the accuracy or completeness of information in this document.
[2025-06-21 08:09] LABS: PSA, Free 0.84 ng/mL
== END 2025-06-19 16:35 | disposition home or self-care (01) ==
PROVIDERS: PCP Family Medicine; Visit Provider Urology
DX: N40.1 Benign prostatic hyperplasia with lower urinary tract symptoms (principal); R97.20 Elevated prostate specific antigen [PSA]; Z80.42 Family history of malignant neoplasm of prostate
CPT/HCPCS: 36415; 84153; 84154

== ENCOUNTER 2025-09-01 09:14 | Emergency (ER) | payer OTHER, SELFPAY ==
--- OUTSIDE RECORDS SUMMARY | 2025-08-29 13:30 | XMS_ITS | Encounter Summary ---
Author Organization [facility] Address [address] [place], [place] [address] Care Team Providers Care Transition Mgr Name Role Phone Julian Mcgraw MD Primary Care Provider + Yadi Rosenthal RD Unavailable [phone] Chiqui Modi RN Unavailable [phone] Vanesa Hahn PA-C Unavailable [phone] July Wiley Unavailable Unavailable Lucas Caicedo MD Unavailable [phone] Source Comments In the event this information is protected by the Federal Confidentiality of Alcohol and Drug AbusePatient Records regulations: The Federal rules restrict any use of the information to criminally investigate or prosecute any alcohol or drug abuse patient.[facility] Reason for Visit * ReasonCommentsChemotherapy Treatment Encounter Details DateTypeDepartmentCare Team (Latest Contact Info)Diqzzzniqki49/21/2025 1:30 PM ESTVisit (SP) Office Hematology/Oncology [address] [place] [address] [place] [address] Whitney Beckwith APRN.GEOPHYSICAL PROSPECTING SURVEYOR [address] [address] 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); Oropharnyx cancer (HCC); Adrenal insufficiency (HCC); Adrenal hypofunction (HCC); Malaise and fatigue Social History Tobacco UseTypesPacks/DayYears UsedDateSmoking Tobacco: GcewchGsbrulocag692 10/13/1987 - 3Passive Smoke Exposure: PastSmokeless Tobacco: Former Alcohol UseStandard Drinks/WeekCommentsYes0 (1 standard drink = 0.6 oz pure alcohol)occPHQ-2AnswerDate RecordedPHQ-2 txhfq7634Area Deprivation Index AnswerDate RecordedNational Score (1-100), lower number is lower risk63 03/02/2023State Score (1-10), lower number is lower hlhy0373Data from: https://www.neighborhoodatlas.[facility]/. Last address used for erh[address]av772 CR [address]88703/02/2023Sex and Gender InformationValueDate RecordedSex Assigned at WvudeIxii39/18/2023 3:51 PM ESTLegal FfgEcrx03/02/2012 8:04 AM EST Gender JskhfmnxRdru91/18/2023 3:51 PM ESTSexual PsykmrchjsnHvypsuiv86/18/2023 3:51 PM ESTTravel HistoryTravel StartTravel LalUdxhwd44 documented as of this encounter Last Filed Vital Signs Vital SignReadingTime TakenCommentsBlood Stwsumfp899/7711 1:05 PM EST Icebd348308/29/2025 1:05 PM ICKEbaudantlkd11.4 ??C (97.6 ??F)08/29/2025 1:05 PM ESTRespiratory Bwhl622710/29/2024 1:05 PM ESTOxygen Ckwjifczcj20%08/29/2025 1:05 PM ESTInhaled Oxygen Concentration--Ggtots08.3 kg (201 lb 4.5 oz)08/29/2025 1:05 PM ESTHeight--Body Mass Index28.4608 8:47 AM EDTdocumented in this encounter Progress Notes * Whitney Beckwith, SENIOR J2EE DEVELOPER.GEOPHYSICAL PROSPECTING SURVEYOR - 08/29/2025 1:27 PM EST Images from the original note were not included. NAME: Kashif Sow [facility] NO.: [id number] DATE OF SERVICE: August 29, 2025 (Tang) [...] and received a total of200 mg/m2 of [place] as well. PET with response 04/2023. CT [...] tissue or granuloma is demonstrated. GMS and AFB/Meilssa stains will be performed and results will [...] HPV-associated squamous cell carcinoma (see comment). KRAS p.Rqf50Njw NM_033360.2:c.35G>A 51.2% VAF, Depth 4267x, Ex2 PIK3CA p.Xjx271Isk NM_006218.2:c.1633G>A 21.7% VAF, Depth 5015x, Ex10 PDL-1 [...] + radiation - Cisplatin completed: 12/21/2021 (total [place] dose: 200mg/m2), radiation completed: 01/06/2022 HPI: Updated [...] and recently returned from a trip to [facility] and [place]. Updated Visit, May 29, 2025: On 10/15/2021, [...] family activities, such as annual trips to [place]. (Today) - Imaging study: Results pending. - [...] is stable. Had a recent trip to [facility] in [place] with his family and getting ready to [...] a family trip next month to the [facility]. Updated Visit, August 02, 2024: Doing [...] children - ages 30-19. CLARICE is from [place], Clarissa is from [place]. May 08, 2024: Kashif Sow is a [...] which included preparing to see the patient, ccdu-uj-cecu patient care, completing clinical documentation, performing a medically appropriate examination, counseling and educating the patient/family/caregiver, ordering medications, tests, or procedures, independently interpreting results (not separately reported), communicating results to the patient/family/caregiver, and care coordination (not separately reported). Whitney Beckwith APRN.GEOPHYSICAL PROSPECTING SURVEYOR Hematology and Oncology Services Provided at: [place], [place] CC: MD Salvador Clarke documented in this encounter Plan of Treatment DateTypeDepartmentCare Team (Latest Contact Info)Yfjyearisjo31/02/2026 10:45 AM [facility] Hematology/Oncology [address] [place] [address] [place] [address] chemotx Emeosfim45/13/2026 1:15 PM ESTOffice Visit [facility] [address] [place] [address] [place] [address] 12 week follow up lab chemotx Gcutxjfm57/13/2026 1:30 PM ESTVisit (SP) Office Hematology/Oncology [address] [place] [address] [place] [address] Whitney Beckwith APRN.GEOPHYSICAL PROSPECTING SURVEYOR [address] [place] [address] [place] [address] 12 week follow up lab chemotx Cvavthcn95/13/2026 2:00 PM [facility] Hematology/Oncology [address] [place] [address] [place] [address] 12 week follow up lab chemotx KeytrudaNameTypePriorityAssociated [...] this encounter Care Teams Team MemberRelationshipSpecialtyStart DateEnd Julian Mcgraw MD PCP - GeneralFamily Medicine10/26/[address] [place] [address] [place] [address] Registered DietitianNutrition11/04/22 Chiqui Modi, RN [address] [place] [address] [place] [address] Specialty Care CoordinatorHematology/Oncology11/15/22 Vanesa Hahn PA-C [address] [place] [address] [place] [address] Physician AssistantHematology/Oncology11/15/22 July Wiley, ROB Social Worker11/21/22 Lucas Caicedo MD [address] [place] [address] [place] [address] PhysicianHematology/Oncology06/24/24documented as of this encounter
--- OUTSIDE RECORDS SUMMARY | 2025-08-29 14:00 | XMS_ITS | Encounter Summary ---
Author Organization [facility] Address [address] [place] [address] Care Team Providers Care Maintenance Mechanic Supervisor Name Role Phone Julian Mcgraw MD Primary Care Provider + Yadi Rosenthal RD Unavailable [phone] Chiqui Modi RN Unavailable [phone] Vanesa HahnC Unavailable [phone] July Wiley Unavailable Unavailable Lucas Caicedo MD Unavailable [phone] Source Comments In the event this information is protected by the Federal Confidentiality of Alcohol and Drug AbusePatient Records regulations: The Federal rules restrict any use of the information to criminally investigate or prosecute any alcohol or drug abuse patient.[facility] Reason for Visit * [place] Prior Authorization (Routine) - AuthorizedSpecialtyDiagnoses / ProceduresReferred By ContactReferred To Contact Diagnoses Oropharnyx cancer (HCC) Procedures INJ PEMBROLIZUMAB Feliciano Borjas MD [address] [place] [address] Phone: tel: fax: Hematology/Oncology [address] [place] [address] [place] [address] Phone: tel: fax: Referral IDStatGerhard DateExpiration DateVisits RequestedVisits [id number]/7/202412/[id number] Encounter Details DateTypeDepartmentCare Team (Latest Contact Info)Gqrwmxicpqj39/21/2025 2:00 PM ESTInfusion Center Hematology/Oncology [address] [place] [address] [place] [address] Oropharnyx cancer (HCC) (Primary Dx) Social History Tobacco UseTypesPacks/DayYears UsedDateSmoking Tobacco: UmwhbxSrvkiisflk943 10/13/1987 - 10/13/2022assive Smoke Exposure: PastSmokeless Tobacco: Former Alcohol UseStandard Drinks/WeekCommentsYes0 (1 standard drink = 0.6 oz pure alcohol)occPHQ-2AnswerDate RecordedPHQ-2 fybcf3524Area Deprivation Index AnswerDate RecordedNational Score (1-100), lower number is lower risk63 03/02/2023State Score (1-10), lower number is lower bbqv947ata from: https://www.neighborhoodatlas.medicine.[facility].edu/. Last address used for upwxnzzshmj352 7660803/02/2023Sex and Gender InformationValueDate RecordedSex Assigned at GusskNvcd67/18/2023 3:51 PM ESTLegal GylTbrd40/02/2012 8:04 AM EST Gender UwojebcqVniu29/18/2023 3:51 PM ESTSexual ScgsfznmrwmBnzhnrxm09/18/2023 3:51 PM ESTTravel HistoryTravel StartTravel HplTrpsnv22/ documented as of this encounter Plan of Treatment DateTypeDepartmentCare Team (Latest Contact Info)Ntnpnihvzvt04/02/2026 10:45 AM ESTInfusion Center Hematology/Oncology [address] [place] [address] [place] [address] chemotx Nsstrvtg74/13/2026 1:15 PM ESTOffice Visit [facility] [address] [place] [address] [place] [address] 12 week follow up lab chemotx Wjukengt97/13/2026 1:30 PM ESTVisit (SP) Office Hematology/Oncology [address] [place] [address] [place] [address] Whitney Beckwith APRN.CRYPTOLOGIC LINGUIST [address] [place] [address] [place] [address] 12 week follow up lab chemotx Fibayrre31/13/2026 2:00 PM ESTInfusion Center Hematology/Oncology [address] [place] [address] [place] [address] 12 week follow up lab chemotx Keytrudadocumented as of this encounter Visit Diagnoses Diagnosis Oropharnyx cancer (HCC)- Primary documented in this encounter Administered Medications Medication OrderMAR ActionAction DateDoseRateSite pembrolizumab 400 mg in NaCl 0.9% 74 mL (KEYTRUDA) 400 mg, INTRAVENOUS, Administer over 30 Minutes, ONCE, 1 dose, On Mon08/29/25 at 1400, EXP: 09/02/2025 1410 Refrigerated Administer with 0.2 micron filter. Indications:Oropharnyx cancer (HCC)New Bag/Syringe/Ahsigv2608/29/2025 2:28 PM EST 400 mgdocumented in this encounter Care Teams Team MemberRelationshipSpecialtyStart Julian Mcgraw MD PCP - GeneralFamily Medicine10/26/[address] [place] [address] [place] [address] Registered DietitianNutrition11/04/22 Chiqui Modi, RN [address] [place] [address] [place] [address] Specialty Care CoordinatorHematology/Oncology11/15/22 Vanesa Hahn PA-C [address] [place] [address] [place] [address] Physician AssistantHematology/Oncology11/15/22 July Wiley LSW Social Worker11/21/22 Lucas Caicedo MD [address] [place] [address] [place] [address] PhysicianHematology/Oncology06/24/24documented as of this encounter
[2025-09-01] VITALS (23 sets, daily range): BP systolic 125–150; BP diastolic 72–85; PULSE 84–103; TEMP 36.4; O2SAT 95–100; BMI 27.2
--- NOTE | 2025-09-01 09:50 | XR_ITS ---
The [place] [id number] Patient Name: CAITLIN ELMORE MRN: [id number] date: 1965 Sex: M Assigned Patient Location: ER Current Patient Location: ER Accession/Order Number: [id number] Exam Date: 09/01/2025 10:10 Report Date: 09/01/2025 10:36 At the request of: YODIT SILVEIRA MD Procedure: XR chest 1V PORTABLE AP ERECT CHEST 0955 hours CLINICAL HISTORY: Possible seizure COMPARISON: None The heart is within normal limits. There is no vascular congestion. There is a rounded masslike opacity in the right perihilar region measuring almost 6 cm in size. There is some extension toward the pleural surface laterally. Although infectious and inflammatory processes are possible, neoplasm is also in the differential. There is also question of a 7 - 8 mm nodule at the right upper lobe. The left lung is clear. There is no sizable effusion or pneumothorax. The osseous structures are intact. Mild endplate spurring is present. XR/XR chest 1V IMPRESSION: MASSLIKE OPACITY AND POTENTIAL SMALLER NODULAR ASYMMETRY ON THE RIGHT. NEOPLASM IS NOT EXCLUDED AND FOLLOW-UP WITH CT IS THEREFORE SUGGESTED. Impression dictated by: Fior Gómez M.D. 09/01/2025 10:36 AM Dictation Location: [place] [address] Electronically authenticated by: [id number] Y Date: 09/01/2025 10:36
--- NOTE | 2025-09-01 09:50 | ECG_ITS ---
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 Measurements Intervals [place] Rate: 91 P: 47 TX: 156 QRS: 29 QRSD: 84 T: 90 QT: 358 QTc: 407 Interpretive Statements 1100 Sinus rhythm 3113 Cannot rule out anterior myocardial infarction, probably old 9150 abnormal ECG Compared to ECG 06/19/2023 10:52:12 Myocardial infarct finding now present Sinus bradycardia no longer present T-wave abnormality no longer present Electronically Signed On 09-01-2025 19:35:53 EST by BARRY GAYTAN M.D.
--- NOTE | 2025-09-01 09:50 | CT_ITS ---
The [address] [address] Patient Name: CAITLIN ELMORE MRN: [id number] date: 1965 Sex: M Assigned Patient Location: ER Current Patient Location: Accession/Order Number: [id number] Exam Date: 09/01/2025 10:13 Report Date: 09/01/2025 10:46 At the request of: YODIT SILVEIRA MD Procedure: CT head/brain wo con CT BRAIN WITHOUT CONTRAST: CLINICAL HISTORY: Possible seizure, remote history of head and neck cancer COMPARISON: None TECHNIQUE: Contiguous axial unenhanced images were obtained through the brain. This CT exam was performed using one or more following dose reduction techniques: Automated exposure control, adjustment of the mA and/or kV according to patient size, or use of iterative reconstruction technique. FINDINGS: There is mild cortical atrophy. The ventricles are normal in size and position. Vasogenic edema is seen in the right posterior frontal lobe where an underlying mass is suspected. There is no suspected large vessel infarct. There is no hemorrhage, mass effect or extra-axial collections. There are borderline low-lying cerebellar tonsils. There is a small amount of fluid within the right maxillary sinus and mucosal thickening involving some of the left ethmoid air cells. 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 There is mastoidectomy on the right and a few opacified mastoid air cells on the left. CT/CT head/brain wo con IMPRESSION: SUSPECTED MASS WITH ASSOCIATED VASOGENIC EDEMA IN THE RIGHT FRONTAL LOBE. THIS MAY BE METASTATIC DISEASE GIVEN THE HISTORY OF PREVIOUS HEAD AND NECK CANCER WELL A RIGHT PERIHILAR MASS ON TODAY'S CHEST X-RAY. MRI FOLLOW-UP COULD BE OBTAINED FOR COMPLETE EVALUATION. Impression dictated by: Fior Gómez M.D. 09/01/2025 10:46 AM Dictation Location: [place] [address] Electronically authenticated by: [id number] Y Date: 09/01/2025 10:46
--- NOTE | 2025-09-01 09:52 | ED.GENADUL1 ---
HPI HPI - General Adult General Chief complaint: Seizure Stated complaint: POSSIBLE SEIZURE Time Seen by Provider: 09/01/25 09:34 Source: patient Mode of arrival: walk-in Limitations: no limitations History of Present Illness HPI narrative: 60-year-old male presented to the emergency department for possible seizure. He had just gotten off of work and was sitting at home talking to somebody on the phone when his left eye started twitching and then opening and closing and he could not control it and then his speech became difficult. He remembers the entire event. Nothing like this has ever happened to him previously. His brought him here. Now he has no symptoms. Related Data Home Medications ?Medication ?Instructions ?Recorded ?Confirmed amlodipine 10 mg tablet 10 mg PO DAILY 06/19/23 09/01/25 lisinopril 40 mg tablet 40 mg PO DAILY 06/19/23 09/01/25 pravastatin 20 mg tablet 20 mg PO DAILY 06/19/23 09/01/25 tamsulosin 0.4 mg capsule (Flomax) 0.4 mg PO DAILY 06/19/23 09/01/25 famotidine 20 mg tablet 20 mg PO DAILY 09/01/25 09/01/25 levothyroxine 100 mcg tablet 100 mcg PO DAILY 09/01/25 09/01/25 tadalafil 20 mg tablet 20 mg PO DAILY PRN sexual activity 09/01/25 09/01/25 Previous Rx's ?Medication ?Instructions ?Recorded levetiracetam 500 mg tablet 500 mg PO BID #60 tabs 09/01/25 (Keppra) Allergies Allergy/AdvReac Type Severity Reaction Status Date / Time No Known Drug Allergies Allergy Verified 09/01/25 09:24 Opioid HPI Opioid Management Most Recent Opioid Data: Ur Phencyclidine Scrn, (NEGATIVE) Negative Today, 10:03 Review of Systems ROS Narrative A ten point review of systems is negative except as noted above. [facility] Medical History (Updated 09/01/25 @ 11:45 by Robel Worley MD) Elevated cholesterol ?E78.00 - Pure hypercholesterolemia, unspecified (ICD-10) Hypertension ?I10 - Essential (primary) hypertension (ICD-10) Tongue cancer ?C02.9 - Malignant neoplasm of tongue, unspecified (ICD-10) HPV (human papilloma virus) infection ?B97.7 - Papillomavirus as the cause of diseases classified elsewhere (ICD-10) Elevated PSA ?R97.20 - Elevated prostate specific antigen [PSA] (ICD-10) Surgical History (Updated 06/19/23 @ 10:38 by Amee Lu NP) H/O mastoidectomy ?Z90.89 - Acquired absence of other organs (ICD-10) History of tonsillectomy ?Z90.89 - Acquired absence of other organs (ICD-10) History of colonoscopy ?Z98.890 - Other specified postprocedural states (ICD-10) Hx of prostate biopsy ?Z98.890 - Other specified postprocedural states (ICD-10) Family History (Updated 06/19/23 @ 10:38 by Amee Lu NP) Other Family history of hypertension Family history of prostate cancer Social History (Updated 06/28/23 @ 11:51 by Julia Hernandez) Within the past year, how often did you have a drink containing alcohol: 2-4 times a month Smoking status: Former smoker Non-prescribed substance use: denies use 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 Skin:Warm, dry, no pallor noted.There is no rash noted. Head:Normocephalic, atraumatic Eye: Normal conjunctiva, no drainage Ears, Nose, Mouth, and Throat: oral mucosa is moist. Nares patent. Cardiovascular:Regular Rate and Rhythm Respiratory:Patient is in no distress, no accessory muscle use, lungs are clear to auscultation, no wheezing, rales or rhonchi Back:non-tender GI: Soft and nontender Musculoskeletal: The patient has no evidence of calf tenderness, no pitting edema, symmetrical pulses noted bilaterally Neurological:A&O x4, normal speech; upper and lower extremity strength 5 out of 5 and symmetric Psychiatric:Cooperative Constitutional Vital Signs, click to edit/add: Last Vital Signs Temp 97.6 F 09/01/25 09:24 Pulse 103 H 09/01/25 10:40 Resp 21 H 09/01/25 10:02 BP 135/81 11/24/25 10:30 Pulse Ox 99 09/01/25 10:30 O2 Del Method Room Air 09/01/25 09:50 Course Vital Signs Vital signs: Vital Signs Temperature 97.6 F 09/01/25 09:24 Pulse Rate 91 H 09/01/25 09:24 Respiratory Rate 18 09/01/25 09:24 Blood Pressure 136/79 09/01/25 09:24 Pulse Oximetry 98 09/01/25 09:24 Oxygen Delivery Method Room Air 09/01/25 09:24 Temperature 97.6 F 09/01/25 09:24 Pulse Rate 103 H 09/01/25 10:40 Respiratory Rate 21 H 09/01/25 10:02 Blood Pressure 135/81 09/01/25 10:30 Pulse Oximetry 99 09/01/25 10:30 Oxygen Delivery Method Room Air 09/01/25 09:50 Medical Decision Making MDM Narrative Medical decision making narrative: CT scan shows a brain lesion, likely metastasis, with vasogenic edema. Chest x-ray also shows a mass but the patient had a CAT scan of his chest about 3 months ago. I have spoken to his oncologist partner and at his request I spoke to neurology. Neurologist recommends discharge home with a prescription for Keppra and he was given his first dose here. The neurologist does not recommend steroids at this time. The importance of follow-up and the need for outpatient testing was explained to the patient and his , including MRI. Treatment diagnosis and follow-up were discussed thoroughly. Differential Diagnosis Differential Diagnosis: Focal seizure, generalized seizure, metastasis Lab Data Lab results reviewed: Yes I reviewed the patient's lab results Labs: Lab Results 09/01/25 09/01/25 Range/Units 09:43 10:03 WBC 7.3 (4.0-11.0) 10^3/uL RBC 4.85 (4.70-6.10) 10^6/uL Hgb 13.2 L (14.0-18.0) g/dL Hct 40.2 L (42.0-54.0) % MCV 82.9 (80.0-94.0) fL MCH 27.2 (25.9-34.0) pg MCHC 32.8 (29.9-35.2) g/dL RDW 13.4 (11.0-15.0) % Plt Count 220 (150-450) 10^3/uL MPV 8.4 L (9.5-13.5) fL Neut % (Auto) 67.4 (43.0-75.0) % Lymph % (Auto) 17.4 L (20.5-60.0) % [place] % (Auto) 6.7 (1.7-12.0) % Eos % (Auto) 7.5 H (0.9-7.0) % Baso % (Auto) 0.7 (0.2-2.0) % Neut # (Auto) 4.9 (1.4-6.5) 10^3/uL Lymph # (Auto) 1.3 (1.2-3.8) 10^3/uL [place] # (Auto) 0.5 (0.3-0.8) 10^3/uL Eos # (Auto) 0.6 (0.0-0.7) 10^3/uL Baso # (Auto) 0.1 (0.0-0.1) 10^3/uL Abs Immat Gran (auto) 0.02 (0.00-0.03) 10^3/uL Imm/Tot Granulo (auto) 0.3 (0.0-0.5) % Sodium 139 (136-145) mmol/L Potassium 3.6 (3.5-5.1) mmol/L Chloride 102 (98-107) mmol/L Carbon Dioxide 28.6 (21.0-32.0) mmol/L Anion Gap 12.0 BUN 16.0 (7.0-18.0) mg/dL Creatinine 1.36 H (0.70-1.30) mg/dL Est GFR ( Amer) >60 (>=60 mL/min/1.73m^2) Est GFR (Non-Af Amer) 54 L (>=60 mL/min/1.73m^2) BUN/Creatinine Ratio 11.8 Glucose 139 H (74-106) mg/dL Calcium 9.2 (8.5-10.1) mg/dL Urine Color Lt. yellow (YELLOW) Urine Clarity Clear (CLEAR) Urine pH 7.0 (5.0-9.0) Ur Specific [place] 1.020 (1.005-1.025) Urine Protein 100 A (NEG/TRACE) mg/dL Urine Glucose (UA) Negative (NEGATIVE) mg/dL Urine Ketones Trace A (NEGATIVE) mg/dL Urine Occult Blood Trace-i (NEGATIVE) Urine Nitrite Negative (NEGATIVE) Urine Bilirubin Negative (NEGATIVE) Urine Urobilinogen 0.2 (0.2-1.0) EU/dL Ur Leukocyte Esterase Negative (NEGATIVE) Urine RBC 0-2 (0-2) #/HPF Urine WBC None seen (NONE SEEN) #/HPF Ur Squamous Epith Cells None seen (NONE/RARE) #/LPF Urine Crystals None seen (None Seen) #/HPF Urine Bacteria Trace A (NONE SEEN) #/HPF Urine Casts None seen (NONE SEEN) #/LPF Urine Mucus None seen (NONE SEEN) Ur Culture Indicated? No Urine Opiates Screen Negative (NEGATIVE) Ur Buprenorphine Scrn Negative (NEGATIVE) Ur Oxycodone Screen Negative (NEGATIVE) Urine Methadone Screen Negative (NEGATIVE) Ur Barbiturates Screen Negative (NEGATIVE) U Tricyclic Antidepress Negative (NEGATIVE) Ur Phencyclidine Scrn Negative (NEGATIVE) Ur Amphetamines Screen Negative (NEGATIVE) U Methamphetamines Scrn Negative (NEGATIVE) U Benzodiazepines Scrn Negative (NEGATIVE) Urine Cocaine Screen Negative (NEGATIVE) U Cannabinoids Screen Negative (NEGATIVE) Imaging Data Chest x-ray: Radiologist's impression: ITS Impressions Chest X-Ray 09/01/25 09:50 IMPRESSION: MASSLIKE OPACITY AND POTENTIAL SMALLER NODULAR ASYMMETRY ON THE RIGHT. NEOPLASM IS NOT EXCLUDED AND FOLLOW-UP WITH CT IS THEREFORE SUGGESTED. Impression dictated by: Fior Gómez M.D. 09/01/2025 10:36 AM Dictation Location: [facility] [place] Electronically authenticated by: [id number] Y Date: 09/01/2025 10:[address] 09/01/25 09:50 IMPRESSION: SUSPECTED MASS WITH ASSOCIATED VASOGENIC EDEMA IN THE RIGHT FRONTAL LOBE. THIS MAY BE METASTATIC DISEASE GIVEN THE HISTORY OF PREVIOUS HEAD AND NECK CANCER WELL A RIGHT PERIHILAR MASS ON TODAY'S CHEST X-RAY. MRI FOLLOW-UP COULD BE OBTAINED FOR COMPLETE EVALUATION. Impression dictated by: Fior Gómez M.D. 09/01/2025 10:46 AM Dictation Location: [place] Electronically authenticated by: [id number] Y Date: 09/01/2025 10:46 ECG Data Attestation: I personally reviewed and interpreted this ECG as follows: (EKG my interpretation shows sinus rhythm with rate of 91 and no acute change) Discharge Plan Discharge Chief Complaint: Seizure Clinical Impression: Focal seizure, Metastasis to brain Patient Disposition: Home, Self-Care Time of Disposition Decision: 11:45 Condition: Good Mode of Transportation: Private Vehicle Prescriptions / Home Meds: New levetiracetam [Keppra] 500 mg tablet 500 mg PO BID Qty: 60 0RF No Action lisinopril 40 mg tablet 40 mg PO DAILY amlodipine 10 mg tablet 10 mg PO DAILY pravastatin 20 mg tablet 20 mg PO DAILY tamsulosin [Flomax] 0.4 mg capsule 0.4 mg PO DAILY famotidine 20 mg tablet 20 mg PO DAILY levothyroxine 100 mcg tablet 100 mcg PO DAILY tadalafil 20 mg tablet 20 mg PO DAILY PRN (Reason: sexual activity) Print Language: Kinyarwanda Instructions: Brain Metastasis (DC), New-Onset Seizure in Adults (ED) Referrals: Julian Mcgraw MD [Primary Care Provider, Family Practice] - 1 week
[2025-09-01 10:01] LABS: Hematocrit 40.2 % (42.0-54.0); Hemoglobin 13.2 g/dL (14.0-18.0); Immature Granulocytes Abs Auto 0.02 10^3/uL (0.00-0.03); Immature Granulocytes Pct Auto 0.3 % (0.0-0.5); Lymphocytes Absolute Auto 1.3 10^3/uL (1.2-3.8); Mean Corpuscular HGB Conc 32.8 g/dL (29.9-35.2); Mean Corpuscular Hemoglobin 27.2 pg (25.9-34.0); Mean Corpuscular Volume 82.9 fL (80.0-94.0); Platelet Count 220 10^3/uL (150-450); Red Blood Count 4.85 10^6/uL (4.70-6.10); White Blood Count 7.3 10^3/uL (4.0-11.0)
[2025-09-01 10:05] LABS: Anion Gap 12.0; Blood Urea Nitrogen 16.0 mg/dL (7.0-18.0); Calcium 9.2 mg/dL (8.5-10.1); Carbon Dioxide 28.6 mmol/L (21.0-32.0); Chloride 102 mmol/L (98-107); Estimated GFR (African America >60 (>=60 mL/min/1.73m^2); Estimated GFR (Non-African Ame 54 (>=60 mL/min/1.73m^2); Glucose 139 mg/dL (74-106); Potassium 3.6 mmol/L (3.5-5.1); Sodium 139 mmol/L (136-145)
--- OUTSIDE RECORDS SUMMARY | 2025-09-01 10:13 | XMS_ITS ---
Author Organization [facility] Address [address] [place], [place] [address] Care Team Providers Care Reference Services Head Name Role Phone Julian Mcgraw MD Primary Care Provider [phone] Unavailable [phone] Chiqui Modi RN Unavailable [phone] Vanesa Hahn PA-C Unavailable [phone] July Wiley Unavailable Unavailable Lucas Caicedo MD Unavailable [phone] Active Problems ProblemNoted DateDiagnosed DateAdrenal qkoczzzwzsoh85/04/2025Former smoker 05/14/2024 Assessment & Plan (05/14/2024 2:37 PM EDT): Quit smoking in 10/2022. ~ 35 pack years. Denies CP or SOB. Reports a chronic cough. Foxdzligaosyfb65/06/2024 Assessment & Plan (05/14/2024 2:44 PM EDT): Takes Synthroid. Seen by endocrinology on 05/10/24. TSH Date Value Ref Range Status 05/08/2024 5.160 (H) 0.270 - 4.200 mIU/L Final Adrenal lubcbibbujvqk22/06/2024 Assessment & Plan (05/14/2024 2:45 PM EDT): Takes hydrocortisone. Seen by endocrinology on 05/10/24. HTN (hypertension)05/14/2024 Assessment & Plan (05/14/2024 2:45 PM EDT): Takes amlodipine and lisinopril. Denies CP, SOB, or palpitations. HLD (hyperlipidemia)05/14/2024 Assessment & Plan (05/14/2024 2:46 PM EDT): Takes pravastatin. Denies CP. CKD (chronic kidney disease)05/14/2024 Assessment & Plan (05/14/2024 2:50 PM EDT): Stable. Severe protein-calorie drhcmyqtuzcc56/13/2023Malignant neoplasm of base of iilnjn0111/02/2022 Cancer Staging: Clinical stage from 11/02/2022:Stage III(cT3, cN1, cM0) - Signed by Feliciano Borjas MD on 11/02/2022 Assessment & Plan (05/14/2024 2:47 PM EDT): S/p chemo and RT. Takes Keytruda. Follows with heme/onc, last seen in 05/08/24. 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 Past Treatment and Therapy Plans Plan NameStart DateDiscontinue DateTreatment MedicationsDiscontinue ReasonPlan ProviderCyclesAMB HYDRATION - NS 1000ML IV - ONCE/05/2023No medications scheduled.Nino Osorio MD5 of 5 cycles startedPlan NameStart Date Discontinue DateTreatment MedicationsDiscontinue ReasonPlan ProviderCyclesAMB PEMBROLIZUMAB 200 PACLITAXEL 200 CARBOPLATIN 6 D1 - Q21D THEN PEMBROLIZUMAB 200 D1 - Q21D09/26//04/2024* CARBOplatin iv piggyback (PARAPLATIN) * fosaprepitant (EMEND) * PACLitaxel iv piggyback (TAXOL) * palonosetron (ALOXI) * pembrolizumab IV infusion (KEYTRUDA) OtherFeliciano Borjas MD5 of 35 cycles startedAMB CISPLATIN 40 D1,8,15,22,29,36,43 - ONCE2///02/2023* CISplatin iv piggyback or iv infusion * fosaprepitant (EMEND) Treatment CompleteFeliciano Borjas MD1 of 1 cycle started
[2025-09-01 10:14] LABS: Glucose Urine UA NEGATIVE (NEGATIVE)
--- OUTSIDE RECORDS SUMMARY | 2025-09-01 10:14 | XMS_ITS | Clinical Summary ---
Author Organization [facility] Address [address] [place] [address] Care Team Providers Care Superintendent Cemetery Name Role Phone Julian Mcgraw MD Primary Care Provider [phone] Allergies No known active allergies Medications MedicationSigDispense QuantityRefillsLast FilledStart DateEnd DateStatus amLODIPine (Norvasc) 10 MG tablet Take 10 mg by mouth DailyActive pravastatin (Pravachol) 20 MG tablet Take 20 mg by mouth DailyActive lisinopril 40 MG tablet Take 40 mg by mouth DailyActive tamsulosin (Flomax) 0.4 MG 24 hr capsule Take 0.4 mg by mouth DailyActive levothyroxine (Synthroid, Levoxyl) 50 MCG tablet Take 50 mcg by mouth in the morning. Take before meals.Active ibuprofen 200 MG tablet Take by mouthActive tadalafil (Cialis) 10 MG tablet Take 10 mg by mouth Daily as needed for erectile dysfunctionActive famotidine (Pepcid) 20 MG tablet Take 20 mg by mouth in the morning and 20 mg before bedtime.5Active Active Problems ProblemNoted DateDiagnosed DateErectile ldrltuujfmi20/24/2025Malignant tumor of edecizhsbm01/21/2025Metastatic malignant atybyhjk37/21/2025Lung qhdwio6111/01/2024 Adrenal hfhkamiztcxay48/06/2024CKD (chronic kidney disease)05/14/2024Former tmtcox0105/14/2024hronic otorrhea of right ear04/19/20247056Mifdmpzex41/08/2024oor urinary mupeif7002/14/2024symptomatic microscopic cxkynnkle78/08/2024Benign prostatic hyperplasia with urinary dezwklaopra57/08/9422Efaflqwqbwvupt28/08/2024 Adenomatous polyp of colon02/14/2024Hx of malignant neoplasm of prostate 02/14/2024High prostate specific antigen (PSA)02/14/2024Severe protein-calorie malnutrition (HHS-HCC)02/14/2024olon polyp02/14/2024Ear ngtltdig06/08/2024Mass in neck02/14/20241412Wczuwnwfeup34/08/2024cute swimmer's ear of right side 05/12/2023Hearing loss04/09/2023Metastasis to head and neck lymph node02/24/2023 Squamous cell cancer of bqpjyp06 Overview (04/09/2023): Diagnosed 10/18/22. 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 Completed chemo/radiation 01/06/23. Monthly followup initiated 01/2023. Gqdskwnfptbr72/19/2023 Resolved Problems ProblemNoted DateDiagnosed DateResolved DateAdenomatous polyp of colon04/09/2023 04/09/20231037Zgllfrznh66symptomatic microscopic hematuria enign prostatic hyperplasia with urinary obstruction Family history of malignant neoplasm of uzebciuq56/02/2023 04/09/2023High prostate specific antigen (PSA)Hyperlipidemia oor urinary racwyz65Mass of neck Severe protein-calorie malnutrition (HHS-HCC)12/19/2022 04/09/2023 Encounters DateTypeDepartmentCare HhcyYtkpjpwgfei27/24/2025 1:00 PM EDTOffice Visit [facility] [address] [place] [id number] Poonam Brennan MD 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)08/01/2025amboo flowsheet [facility] [address] [place] [address] Poonam Brennan MD 08/01/2025Travelfrom Last 3 Months Immunizations ImmunizationAdministration DatesNext DueInfluenza, injectable, quadrivalent, preservative free11/17/2022 Family History Medical HistoryRelationNameCommentsCancerFatherJim LottHyperlipidemiaFatherJim LottHypertensionFatherJim LottHyperlipidemiaMotherCarol LottCancerSisterSister Thyroid cancerSisterSisterRelationNameStatusCommentsFatherJim LottMotherCarol LottSisterSister Social History Tobacco UseTypesPacks/DayYears UsedDateSmoking Tobacco: HexjpeRudfndrafp958 10/09/2007 - 10/09/2022Smokeless Tobacco: FormerSnuffQuit: 10/09/1987 Tobacco Cessation:Counseling Given: Not Answered Alcohol UseStandard Drinks/GxnsMamptncsUlc50 (1 standard drink = 0.6 oz pure alcohol)caffeine intake: 3-4 cups per dayAUDIT-CAnswerDate RecordedFrequency of Alcohol ConsumptionNot on file11/16/2023Q2: How many drinks containing alcohol do you have on a typical day when you are drinking?1 or Q3: How often do you have six or more drinks on one occasion?Less than nxxkmmm7911/16/2023Sex and Gender InformationValueDate RecordedSex Assigned at JqtsjSrit67/29/2023 5:19 PM EDTLegal TetGvit0512/21/2022 7:06 PM EDTGender XlligharNfoa69/29/2023 5:19 PM EDTSexual ZthcmtdrhjqIggkgijx43/29/2023 5:19 PM EDT Last Filed Vital Signs Vital SignReadingTime TakenCommentsBlood Uhjxcsxb701/8510 1:02 PM EDT Ggnww969608/01/2025 1:02 PM EDTTemperature--Respiratory Rate--Oxygen Saturation-- Inhaled Oxygen Concentration--Ydqadj57.7 kg (200 lb)08/01/2025 1:02 PM EDTHeight 180.3 cm (5' 11 )08/01/2025 1:02 PM EDTBody Mass Index27.8908/01/2025 1:02 PM EDT Plan of Treatment DateTypeDepartmentCare Team (Latest Contact Info)Gmlipifmrco55/23/2026 1:30 PM ESTOffice Visit [facility] [address] [facility] [address] [place] [address] Poonam Brennan MD [address] [facility] [address] [place] [address] Insurance * Guarantor: Kashif Sow TypeRelation to PatientDate of BirthPhone Billing AddressPersonal/OllphtVlvl[address] [address] Care Teams Team MemberRelationshipSpecialtyStart Date Julian Mcgraw MD [address] [facility] [place] [phone] PCP - GeneralFamily Medicine04/28/25
--- OUTSIDE RECORDS SUMMARY | 2025-09-01 10:14 | XMS_ITS | Encounter Summary ---
Author Organization [facility] Address [address] [place], [place] [address] Care Team Providers Care Cash Register Operator Name Role Phone Julian Mcgraw MD Primary Care Provider [phone] Unavailable [phone] Chiqui Modi RN Unavailable [phone] Vanesa Hahn PA-C Unavailable [phone] July Wiley Unavailable Unavailable Lucas Caicedo MD Unavailable [phone] Source Comments In the event this information is protected by the Federal Confidentiality of Alcohol and Drug AbusePatient Records regulations: The Federal rules restrict any use of the information to criminally investigate or prosecute any alcohol or drug abuse patient.[facility] Reason for Visit * ReasonCommentsLab Orders Encounter Details DateTypeDepartmentCare Team (Latest Contact Info)Kqjqhouplmw77/10/2025Telephone Hematology/Oncology [address] [place] [address] [place] [address] Poly Doran, legal transcriptionist Orders Social History Tobacco UseTypesPacks/DayYears UsedDateSmoking Tobacco: EjonafInffjtjrud521 10/13/1987 - 3Passive Smoke Exposure: PastSmokeless Tobacco: Former Alcohol UseStandard Drinks/WeekCommentsYes0 (1 standard drink = 0.6 oz pure alcohol)occPHQ-2AnswerDate RecordedPHQ-2 ejvro300rea Deprivation Index AnswerDate RecordedNational Score (1-100), lower number is lower risk63 03/02/2023State Score (1-10), lower number is lower wryv959ata from: https://www.neighborhoodatlas.[facility]/. Last address used for [address] [place] [address]/02/2023Sex and Gender InformationValueDate RecordedSex Assigned at ViuykLsvy92/18/2023 3:51 PM ESTLegal IvgIgpy84/02/2012 8:04 AM EST Gender AyqjumnjGzvq75/18/2023 3:51 PM ESTSexual VimnjrmvereAuolushq59/18/2023 3:51 PM ESTTravel HistoryTravel StartTravel EbbXimjhj01 documented as of this encounter Miscellaneous Notes * Telephone Encounter - Poly Doran RN - 08/18/2025 11:[address] lab orders for [facility] Poly Doran RN documented in this encounter Plan of Treatment DateTypeDepartmentCare Team (Latest Contact Info)Skkxfgfnmhr98/02/2026 10:45 AM ESTInfusion Center Hematology/Oncology [address] [place] [address] [place] [address] chemotx Cszyraei25/13/2026 1:15 PM ESTOffice Visit [facility] [place] [facility] [address] [place] [address] [place] [address] 12 week follow up lab chemotx Qaivusqu70/13/2026 1:30 PM ESTVisit (SP) Office Hematology/Oncology [address] [place] [address] [place] [address] Whitney Beckwith APRN.ASP NET C DEVELOPER [address] [place] [address] [place] [address] 12 week follow up lab chemotx Hfawznqe95/13/2026 2:00 PM [facility] Hematology/Oncology [address] [place] [address] [address] [place], [place] [address] 12 week follow up lab chemotx Keytrudadocumented as of this encounter Results * HEMOGLOBIN A1C (08/29/2025 12:44 PM EST)ComponentValueRef RangeTest Method Analysis TimePerformed AtPathologist SignatureHemoglobin A1C5.34.3 - 5.6 % 08/30/2025 5:25 PM [facility] LABComment:[place] Diabetes Association guidelines indicate that patients with HgbA1c in the range 5.7- 6.4% are at increased risk for development of diabetes, and intervention by lifestyle modification may be beneficial. HgbA1c greater or equal to 6.5% is considered diagnostic of diabetes.Estimated Average Wxqfxoi759bg/dL08/30/2025 5:25 PM [facility] LABComment:eAG: (Estimated average glucose) is a calculated value from HgbA1c and is factory representative of the average blood glucose level in the last 2-3 month period.Specimen (Source)Anatomical Location / LateralityCollection Method / VolumeCollection TimeReceived Time BloodBLOOD SPECIMEN / UnknownVenipuncture / Oabvkcf5008/29/2025 12:44 PM EST 08/29/2025 12:44 PM EST Narrative Authorizing ProviderResult TypeResult StatusJorgeimemarietta Lerma APRN.CNPLABORATORYFinal ResultPerforming OrganizationAddressCity/State/ZIP CodePhone Number [facility] [address] [place] [address] * CORTISOL, SERUM (08/29/2025 12:44 PM EST)ComponentValueRef RangeTest Method Analysis TimePerformed AtPathologist SignatureCortisol4.84.8 - 19.5 ug/dL 08/30/2025 5:25 PM [facility] LABComment: Provided reference range is from 6-10 AM sample collection time. Cortisol Reference Range: 6-10 AM = 4.8-19.5 ug/dL, 4-8 PM = 2.5-11.9 ug/dL Specimen (Source)Anatomical Location / LateralityCollection Method / Volume Collection TimeReceived TimeBloodBLOOD SPECIMEN / UnknownVenipuncture / Unknown 08/29/2025 12:44 PM EST08/29/2025 12:44 PM EST Narrative Authorizing ProviderResult TypeResult StatusBarb Lerma APRN.CNPLABORATORYFinal ResultPerforming OrganizationAddressCity/State/ZIP CodePhone Number [facility] [address] [place] [address], * (ABNORMAL) COMPLETE BLOOD COUNT AND DIFFERENTIAL (08/29/2025 12:44 PM EST) ComponentValueRef RangeTest MethodAnalysis TimePerformed AtPathologist SignatureWBC9.423.70 - 11.00 k/uL08/29/2025 12:47 PM ESTNOR[facility]ARBOR [facility]ACH [facility] LABRBC4.854.20 - 6.00 m/uL08/29/2025 12:47 PM [facility] DRBWbwsrtkbhh30.113.0 - 17.0 g/dL08/29/2025 12:47 PM [facility] DYGCsdnjtxcjt07.339.0 - 51.0 %08/29/2025 12:47 PM ESTNOR[facility]ARBOR [facility]ACH [facility] VJKUPO43.180.0 - 100.0 fL 08/29/2025 12:47 PM ESTNOR[facility]ARBOR [facility]ACH [facility] UDAPAJ75.026.0 - 34.0 pg08/29/2025 12:47 PM [facility] FYSJBGG35.530.5 - 36.0 g/dL08/29/2025 12:47 PM ESTNOR[facility]ARBOR [facility]ACH [facility] LABRDW-CV 13.711.5 - 15.0 %08/29/2025 12:47 PM [facility] LAB Platelet Qkwaj212246 - 400 k/uL08/29/2025 12:47 PM [facility] LABMPV8.0(L)9.0 - 12.7 fL08/29/2025 12:47 PM [facility] LABNeutrophils %61.6%08/29/2025 12:47 PM [facility] LABAbs Neut5.801.45 - 7.50 k/uL08/29/2025 12:47 PM [facility] LABLymphocytes %18.6%08/29/2025 12:47 PM [facility] LABAbs Lymph1.751.00 - 4.00 k/uL08/29/2025 12:47 PM [facility] LABMonocytes %8.4%08/29/2025 12:47 PM [facility] LABAbs Mono0.79<0.87 k/uL 08/29/2025 12:47 PM [facility] LABEosinophils %10.6% 08/29/2025 12:47 PM [facility] LABAbs Eosin1.00(H) <0.46 k/uL08/29/2025 12:47 PM [facility] LAB Basophils %0.6%08/29/2025 12:47 PM [facility] LABAbs Baso0.06<0.11 k/uL08/29/2025 12:47 PM [facility] LAB Immature Granulocytes %0.2%08/29/2025 12:47 PM [facility] LABAbs Immature Gran<0.03<0.10 k/uL08/29/2025 12:47 PM [facility] LABNRBC0.0/100 WBC08/29/2025 12:47 PM [facility] LABAbsolute nRBC<0.01<0.01 k/uL08/29/2025 12:47 PM [facility] LABDiff KrtnXvvo90/21/2025 12:47 PM [facility] LABSpecimen (Source)Anatomical Location / LateralityCollection Method / VolumeCollection TimeReceived TimeBloodBLOOD SPECIMEN / UnknownVenipuncture / Ebvmkuw0808/29/2025 12:44 PM EST08/29/2025 12:44 PM EST Narrative Authorizing ProviderResult TypeResult StatusRobmarietta Maria Guadalupe OCHOACNPLABORATORYFinal ResultPerforming OrganizationAddressCity/State/ZIP CodePhone Number [facility] [address] [place] [address] * (ABNORMAL) COMPREHENSIVE METABOLIC PANEL (08/29/2025 12:44 PM EST)Component ValueRef RangeTest MethodAnalysis TimePerformed AtPathologist Signature Protein, Total6.96.3 - 8.0 g/dL08/29/2025 1:08 PM ESTNOR[facility]ARBOR [facility]ACH [facility] LABAlbumin4.23.9 - 4.9 g/dL08/29/2025 1:08 PM [facility] LABCalcium, Total9.98.5 - 10.2 mg/dL08/29/2025 1:08 PM [facility] LABBilirubin, Total0.20.2 - 1.3 mg/dL 08/29/2025 1:08 PM [facility] LABAlkaline Odelaxbphhy1353 - 113 U/L110/29/2024 1:08 PM [facility] EPUUAF1215 - 40 U/L110/29/2024 1:08 PM [facility] IHLARW3669 - 54 U/L110/29/2024 1:08 PM [facility] RQFDdtozeu850(H)74 - 99 mg/dL08/29/2025 1:08 PM [facility] LABComment: The [place] Diabetes Association (ADA) provides guidance for cutoff values for fasting glucose andrandom glucose. The ADA defines fasting as no [...] Standards of Medical Care in Diabetes 2016, [place] Diabetes Association. Diabetes Care. 2016.39(Suppl 1). OXN205 - 24 mg/dL08/29/2025 1:08 PM [facility] Creatinine1.160.73 - 1.22 mg/dL08/29/2025 1:08 PM [facility] LFOEndzjb516294 - 144 mmol/L110/29/2024 1:08 PM [facility] LABPotassium4.23.7 - 5.1 mmol/L110/29/2024 1:08 PM [facility] DKSDrqzrhku22577 - 107 mmol/L110/29/2024 1:08 PM EST [facility] RJDTI62328 - 30 mmol/L110/29/2024 1:08 PM EST [facility] LABAnion Gap98 - 15 mmol/L110/29/2024 1:08 PM [facility] LABEstimated Glomerular Filtration Rate73 >=60 mL/min/1.73m 08/29/2025 1:08 PM [facility] LABComment:Estimated Glomerular Filtration Rate (eGFR) is calculated using the 2020 CKD-EPI creatinine equation. This equation utilizes serum creatinine, sex, and age as parameters. The creatinine assay has traceable calibration to isotope dilution- mass spectrometry. Refer to KDIGO guidelines for clinical interpretation. In patients with unstable renal function, e.g. those with acute kidney injury, the eGFRmay not accurately reflect actual GFR.Specimen (Source)Anatomical Location / LateralityCollection Method / VolumeCollection TimeReceived TimeBloodBLOOD SPECIMEN / UnknownVenipuncture / Nrknvpt1808/29/2025 12:44 PM EST08/29/2025 12:44 PM EST Narrative Authorizing ProviderResult TypeResult StatusJaimee Maria Guadalupe HEAD WAITER/WAITRESS BANQUET.CNPLABORATORYFinal ResultPerforming OrganizationAddressCity/State/ZIP CodePhone Number [facility] [address] [place] [address] * THYROID STIMULATING HORMONE (08/29/2025 12:44 PM EST)ComponentValueRef Range Test MethodAnalysis TimePerformed AtPathologist SignatureTSH3.3800.270 - 4.200 mIU/L110/30/2024 5:25 PM ESTNORWALK [facility] LABSpecimen (Source) Anatomical Location / LateralityCollection Method / VolumeCollection Time Received TimeBloodBLOOD SPECIMEN / UnknownVenipuncture / Hyqdqci0808/29/2025 12:44 PM EST08/29/2025 12:44 PM EST Narrative Authorizing ProviderResult TypeResult StatusJaimee Maria Guadalupe HEAD WAITER/WAITRESS BANQUET.CNPLABORATORYFinal ResultPerforming OrganizationAddressCity/State/ZIP CodePhone Number [facility] [address] [place], [place] [address] documented in this encounter Visit Diagnoses Diagnosis 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 Malaise and fatigue Other malaise and fatigue documented in this encounter Care Teams Team MemberRelationshipSpecialtyStart DateEnd Date Julian Mcgraw MD PCP - GeneralFamily Medicine10/26/[address] [place] [address] Registered DietitianNutrition11/04/22 Chiqui Modi RN [address] [place] [address] Specialty Care CoordinatorHematology/Oncology11/15/22 Vanesa Hahn PA-C [address] [facility] [place] [address] Physician AssistantHematology/Oncology11/15/22 July Wiley LSW Social Worker11/21/22 Lucas Caicedo MD [address] [place] [address] PhysicianHematology/Oncology06/24/24documented as of this encounter
--- OUTSIDE RECORDS SUMMARY | 2025-09-01 10:14 | XMS_ITS | Clinical Summary ---
Author Organization [facility] Address [address] [place], [place] [address] Care Team Providers Care Medical Office Receptionist Name Role Phone Julian Mcgraw MD Primary Care Provider + Yadi Rosenthal RD Unavailable [phone] Chiqui Modi RN Unavailable [phone] Vanesa Hahn PA-C Unavailable [phone] July Wiley Unavailable Unavailable Lucas Caicedo MD Unavailable [phone] Allergies No known active allergies Medications MedicationSigDispense QuantityRefillsLast FilledStart DateEnd DateStatus lisinopril (ZESTRIL, PRINIVIL) 40 mg tablet Take 40 mg by mouth once daily.12/17/2020ctive pravastatin (PRAVACHOL) 20 mg tablet Take 20 mg by mouth once daily.12/17/2020ctive ibuprofen (MOTRIN) 200 mg tablet Take 200 mg by mouth every 6 hours as needed.Active amLODIPine (NORVASC) 10 mg tablet Take 10 mg by mouth once daily.11/27/2022ctive tamsulosin (FLOMAX) 0.4 mg Take 0.4 mg by mouth.03/17/2023ctive ondansetron (ZOFRAN) 8 mg tablet Take 1 tablet by mouth every 8 hours as needed for nausea/vomiting. 90 tablet 9:21 AM EST09/29/2023ctive prochlorperazine (COMPAZINE) 10 mg tablet Take 1 tablet by mouth every 6 hours as needed. 100 tablet 9:21 AM EST12/22/2023Active pembrolizumab (KEYTRUDA INTRAVENOUS) Inject intravenously.4Active levothyroxine (SYNTHROID) 100 mcg tablet Indications:Acquired hypothyroidismTake 1 tablet by mouth once daily. 90 tablet 5Active famotidine (PEPCID) 20 mg tablet Indications:Gastroesophageal reflux disease, unspecified whether esophagitis presentTAKE 1 TABLET BY MOUTH TWICE A DAY 180 tablet 1105Active Active Problems ProblemNoted DateDiagnosed DateAdrenal /04/2025Former smoker 05/14/2024 Assessment & Plan (05/14/2024 2:37 PM EDT): Quit smoking in 10/2022. ~ 35 pack years. Denies CP or SOB. Reports a chronic cough. Ajsfqhjxuutjqq12/06/2024 Assessment & Plan (05/14/2024 2:44 PM EDT): Takes Synthroid. Seen by endocrinology on 05/10/24. TSH Date Value Ref Range Status 05/08/2024 5.160 (H) 0.270 - 4.200 mIU/L Final Adrenal gkhwgoesdbhbo48/06/2024 Assessment & Plan (05/14/2024 2:45 PM EDT): Takes hydrocortisone. Seen by endocrinology on 05/10/24. HTN (hypertension)05/14/2024 Assessment & Plan (05/14/2024 2:45 PM EDT): Takes amlodipine and lisinopril. Denies CP, SOB, or palpitations. HLD (hyperlipidemia)05/14/2024 Assessment & Plan (05/14/2024 2:46 PM EDT): Takes pravastatin. Denies CP. CKD (chronic kidney disease)05/14/2024 Assessment & Plan (05/14/2024 2:50 PM EDT): Stable. Severe protein-calorie londtdgxttrj06/13/2023Malignant neoplasm of base of rbumte2911/02/2022 Cancer Staging: Clinical stage from 11/02/2022:Stage III(cT3, cN1, cM0) - Signed by Feliciano Borjas MD on 11/02/2022 Assessment & Plan (05/14/2024 2:47 PM EDT): S/p chemo and RT. Takes Keytruda. Follows with heme/onc, last seen in 05/08/24. 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); Oropharnyx cancer (HCC); Adrenal insufficiency (HCC); Adrenal hypofunction (HCC); Malaise and sdbnoqm7908/29/20258733Xslezr73/10/2025Telephone Hematology/Oncology [address] [place] [address] [place] [address] Poly Doran RN Lab Xpmcwo3207/24/2025Refill Endocrinology [address] [place] [address] Tom Medina MD Refill Gabsmok0807/11/2025 1:30 PM EDTInfusion Center Hematology/Oncology [address] [place] [address] [place] [address] Oropharyngeal cancer (HCC) (Primary Dx); Oropharnyx cancer (HCC)07/11/20252791Npdall56/28/2025 11:30 AM EDTOffice Visit Radiation Oncology [address] [place] [address] Salvador Ercikson MD Malignant neoplasm of unspecified part of unspecified bronchus or lung (HCC) (Primary Dx)06/05/2025Travelfrom Last 3 Months Immunizations ImmunizationAdministration DatesNext Dueinfluenza (IIV4) vaccine, age 6 mo - 64 yr, quadrivalent, PF (AFLURIA, FLUARIX, FLULAVAL, FLUZONE)11/17/2022influenza (LAIV) vaccine, nasal, unspecified /09/2023influenza vaccine, unspecified cidhqbwcoef07/09/2023 Family History Medical HistoryRelationCommentsProstate CancerFatherThyroid CancerSister Anesthesia ProblemsNo Family HistoryMalig HyperthermiaNo Family HistoryRelation StatusCommentsFatherDeceasedSisterAlive Social History Tobacco UseTypesPacks/DayYears UsedDateSmoking Tobacco: GtzuvtOvmiuauvtz964 10/13/1987 - 10/13/2022assive Smoke Exposure: PastSmokeless Tobacco: Former Tobacco Cessation:Counseling Given: Not Answered Alcohol UseStandard Drinks/WeekCommentsYes0 (1 standard drink = 0.6 oz pure alcohol)occPHQ-2AnswerDate RecordedPHQ-2 vmbva105rea Deprivation Index AnswerDate RecordedNational Score (1-100), lower number is lower risk63 03/02/2023State Score (1-10), lower number is lower fsdu517ata from: https://www.neighborhoodatlas.[facility] [place].edu/. Last address used for yddtdkrucek579 [address]2403/02/2023Sex and Gender InformationValueDate RecordedSex Assigned at GfhhaFjqw77/18/2023 3:51 PM ESTLegal DuuKqxh03/02/2012 8:04 AM EST Gender RlwdkrztAilj69/18/2023 3:51 PM ESTSexual RgdzclpxgleKzgqwmlf74/18/2023 3:51 PM ESTTravel HistoryTravel StartTravel CwiWlqilt00 Last Filed Vital Signs Vital SignReadingTime TakenCommentsBlood Spujvish228/7708/29/2025 1:05 PM EST Cbqrh909708/29/2025 1:05 PM PSCItcsdaghuay97.4 ??C (97.6 ??F)08/29/2025 1:05 PM ESTRespiratory Yxrw119510/29/2024 1:05 PM ESTOxygen Ecxjceqkpr64%08/29/2025 1:05 PM ESTInhaled Oxygen Concentration--Fxawqx16.3 kg (201 lb 4.5 oz)08/29/2025 1:05 PM TLNRexsaj940.1 cm (5' 10.51 )05/29/2025 8:47 AM EDTBody Mass Index28.46 05/29/2025 8:47 AM EDT Plan of Treatment DateTypeDepartmentCare Team (Latest Contact Info)Nouxqmxijqw36/02/2026 10:45 AM ESTInfusion Center Hematology/Oncology [address] [place] [address] [place] [address] chemotx Yonbzsbd58/13/2026 1:15 PM ESTOffice Visit [facility] [address] [place] [address] [place] [address] 12 week follow up lab chemotx Gzozuusj76/13/2026 1:30 PM ESTVisit (SP) Office Hematology/Oncology [address] [place] [address] [place] [address] Whitney Beckwith, ARIANNA.EXERCISE MANAGER [address] [place] [address] [place] [address] 12 week follow up lab chemotx Xalszhce39/13/2026 2:00 PM ESTInfusion Center Hematology/Oncology [address] [place] [address] [place] [address] 12 week follow up lab chemotx KeytrudaHealth MaintenanceDue DateLast Done CommentsAnnual PCP Team Chronic Disease Visit1984Anxiety Screening 1984Depression Bliqsyxlb67/06/1984HIV Vqfgvqjjd29/06/1984Hepatitis C Paotlpzer23/06/1984DTaP,Tdap,Td Vaccine (1 - Tdap)1985Pneumococcal Vaccine: 50+ (1 of 2 - PCV)1985Shingrix Vaccine (1 of 2)1985Lipid Igmrngmxm12/06/2001CT Wdldoodpjuhp46/06/2011Cologuard (FIT-DNA)2011 Qiplgvgjsoi78/06/2011Colorectal Cancer Ekumuaqgt49/06/2011Fecal Occult Blood 04/13/20111129Ucvaudanhjmao68/06/2011Covid-19 Vaccine (3 - Pfizer risk series) /, 08/06/2021Influenza Vaccine (#1)502/06/2023, 11/17/2022, 11/17/2022Serum Httozyhiyv03/21/670834/, 07/11/2025, 05/29/2025, Additional history existsProstate Cancer Screening Discussion 803Diabetes Hfslnrzsh07, 08/29/2025, 07/11/2025, Additional history exists Procedures Procedure NamePriorityDate/TimeAssociated DiagnosisCommentsHEMOGLOBIN U0MWnmvdqs 08/29/2025 12:44 PM EST 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) CORTISOL WDHDjvghkf89/21/2025 12:44 PM EST 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) CBC + CDCVQwmnuxb11/21/2025 12:44 PM EST 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) COMPREHENSIVE METABOLIC CZNSCBfmtnmc23/21/2025 12:44 PM EST 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) TSH AOLQcohaue11/21/2025 12:44 PM EST 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) TSH VUXAmcauko72/03/2025 1:23 PM EDT Oropharnyx cancer (HCC) COMPREHENSIVE METABOLIC ZOWTEIaybiwv16/03/2025 1:23 PM EDT Oropharnyx cancer (HCC) PSA VUXHBNDMBPIolcqok89/01/2023 10:07 AM EST Benign prostatic hyperplasia, unspecified whether lower urinary tract symptoms present from Last 3 Months or Most Recently Relevant to Health Maintenance Results * THYROID STIMULATING HORMONE (08/29/2025 12:44 PM EST) Only the most recent of2 resultswithin the time period is included. ComponentValueRef RangeTest MethodAnalysis TimePerformed AtPathologist Signature TSH3.3800.270 - 4.200 mIU/L110/30/2024 5:25 PM [facility] Specimen (Source)Anatomical Location / LateralityCollection Method / Volume Collection TimeReceived TimeBloodBLOOD SPECIMEN / UnknownVenipuncture / Unknown 08/29/2025 12:44 PM EST08/29/2025 12:44 PM EST Narrative Authorizing ProviderResult TypeResult StatusBarb Lerma APRN.CNPLABORATORYFinal ResultPerforming OrganizationAddressCity/State/ZIP CodePhone Number [facility] [address] [place] [address], [place] * HEMOGLOBIN A1C (08/29/2025 12:44 PM EST)ComponentValueRef RangeTest Method Analysis TimePerformed AtPathologist SignatureHemoglobin A1C5.34.3 - 5.6 % 08/30/2025 5:25 PM [facility] LABComment:[place] Diabetes Association guidelines indicate that patients with HgbA1c in the range 5.7- 6.4% are at increased risk for development of diabetes, and intervention by lifestyle modification may be beneficial. HgbA1c greater or equal to 6.5% is considered diagnostic of diabetes.Estimated Average Dexsoyz180dx/dL08/30/2025 5:25 PM [facility] LABComment:eAG: (Estimated average glucose) is a calculated value from HgbA1c and is field support representative of the average blood glucose level in the last 2-3 month period.Specimen (Source)Anatomical Location / LateralityCollection Method / VolumeCollection TimeReceived Time BloodBLOOD SPECIMEN / UnknownVenipuncture / Tjvdyzo3508/29/2025 12:44 PM EST 08/29/2025 12:44 PM EST Narrative Authorizing ProviderResult TypeResult Megan Lerma APRN.CNPLABORATORYFinal ResultPerforming OrganizationAddressCity/State/ZIP CodePhone Number [facility] [address] [place] [address], * CORTISOL, SERUM (08/29/2025 12:44 PM EST)ComponentValueRef RangeTest Method Analysis TimePerformed AtPathologist SignatureCortisol4.84.8 - 19.5 ug/dL 08/30/2025 5:25 PM [facility] LABComment: Provided reference range is from 6-10 AM sample collection time. Cortisol Reference Range: 6-10 AM = 4.8-19.5 ug/dL, 4-8 PM = 2.5-11.9 ug/dL Specimen (Source)Anatomical Location / LateralityCollection Method / Volume Collection TimeReceived TimeBloodBLOOD SPECIMEN / UnknownVenipuncture / Unknown 08/29/2025 12:44 PM EST08/29/2025 12:44 PM EST Narrative Authorizing ProviderResult TypeResult StatusJaimee Maria Guadalupe SPLITTING MACHINE TENDER.CNPLABORATORYFinal ResultPerforming OrganizationAddressCity/State/ZIP CodePhone Number [facility] [address] * (ABNORMAL) COMPREHENSIVE METABOLIC PANEL (08/29/2025 12:44 PM EST) Only the most recent of2 resultswithin the time period is included. ComponentValueRef RangeTest MethodAnalysis TimePerformed AtPathologist Signature Protein, Total6.96.3 - 8.0 g/dL08/29/2025 1:08 PM ESTNORTHCSELECT [facility] LABAlbumin4.23.9 - 4.9 g/dL08/29/2025 1:08 PM [facility] LABCalcium, Total9.98.5 - 10.2 mg/dL08/29/2025 1:08 PM EST [facility] LABBilirubin, Total0.20.2 - 1.3 mg/dL 08/29/2025 1:08 PM ESTNORTDUANE L. [facility]AT[facility] LABAlkaline Phosphatase 9738 - 113 U/L110/29/2024 1:08 PM ESTNORTDUANE L. WAT[facility] POBDTY2211 - 40 U/L110/29/2024 1:08 PM ESTNORTDUANE [facility]. [facility]AT[facility] JEJTAI4681 - 54 U/L110/29/2024 1:08 PM [facility] WFVTspjkhj388(H)74 - 99 mg/dL08/29/2025 1:08 PM [facility] LABComment: The [place] Diabetes Association (ADA) provides guidance for cutoff [...] Standards of Medical Care in Diabetes 2016, [place] Diabetes Association. Diabetes Care. 2016.39(Suppl 1). BMK593 - 24 mg/dL08/29/2025 1:08 PM [facility] Creatinine1.160.73 - 1.22 mg/dL08/29/2025 1:08 PM [facility] VXKFqajjc400151 - 144 mmol/L110/29/2024 1:08 PM [facility] LABPotassium4.23.7 - 5.1 mmol/L110/29/2024 1:08 PM [facility] LLGXpxirevq53519 - 107 mmol/L110/29/2024 1:08 PM [facility] QLBOK51957 - 30 mmol/L110/29/2024 1:08 PM [facility] LABAnion Gap98 - 15 mmol/L110/29/2024 1:08 PM [facility] LABEstimated Glomerular Filtration Rate73 >=60 mL/min/1.73m 08/29/2025 1:08 PM [facility] LABComment:Estimated Glomerular Filtration Rate (eGFR) is calculated [...] VolumeCollection TimeReceived TimeBloodBLOOD SPECIMEN / UnknownVenipuncture / Lbqeixb3108/29/2025 12:44 PM EST08/29/2025 12:44 PM EST Narrative Authorizing ProviderResult TypeResult StatusBarb Lerma APRN.CNPLABORATORYFinal ResultPerforming OrganizationAddressCity/State/ZIP CodePhone Number [facility] [address] [place] [address] * (ABNORMAL) COMPLETE BLOOD COUNT AND DIFFERENTIAL (08/29/2025 12:44 PM EST) ComponentValueRef RangeTest MethodAnalysis TimePerformed AtPathologist SignatureWBC9.423.70 - 11.00 k/uL08/29/2025 12:47 PM ESTNORTDUANE L. WAT[facility] LABRBC4.854.20 - 6.00 m/uL08/29/2025 12:47 PM [facility] QCOZqrxjghwpr47.113.0 - 17.0 g/dL08/29/2025 12:47 PM [facility] TPKAdfnjdzmuz63.339.0 - 51.0 %08/29/2025 12:47 PM [facility] AIOVRM14.180.0 - 100.0 fL 08/29/2025 12:47 PM [facility] ZJRULJ97.026.0 - 34.0 pg08/29/2025 12:47 PM [facility] JVQSQMV66.530.5 - 36.0 g/dL08/29/2025 12:47 PM ESTNOMARMET H[facility]ITAL FOR [facility] LABRDW-CV 13.711.5 - 15.0 %08/29/2025 12:47 PM [facility] Platelet Retxd600743 - 400 k/uL08/29/2025 12:47 PM [facility] LABMPV8.0(L)9.0 - 12.7 fL08/29/2025 12:47 PM [facility] LABNeutrophils %61.6%08/29/2025 12:47 PM [facility] LABAbs Neut5.801.45 - 7.50 k/uL08/29/2025 12:47 PM [facility] LABLymphocytes %18.6%08/29/2025 12:47 PM [facility] LABAbs Lymph1.751.00 - 4.00 k/uL08/29/2025 12:47 PM [facility] LABMonocytes %8.4%08/29/2025 12:47 PM [facility] LABAbs Mono0.79<0.87 k/uL 08/29/2025 12:47 PM [facility] LABEosinophils %10.6% 08/29/2025 12:47 PM [facility] LABAbs Eosin1.00(H) <0.46 k/uL08/29/2025 12:47 PM [facility] Basophils %0.6%08/29/2025 12:47 PM [facility] LABAbs Baso0.06<0.11 k/uL08/29/2025 12:47 PM [facility] LAB Immature Granulocytes %0.2%08/29/2025 12:47 PM [facility] LABAbs Immature Gran<0.03<0.10 k/uL08/29/2025 12:47 PM [facility] LABNRBC0.0/100 WBC08/29/2025 12:47 PM [facility] LABAbsolute nRBC<0.01<0.01 k/uL08/29/2025 12:47 PM [facility] LABDiff QaocTlub24/21/2025 12:47 PM [facility] LABSpecimen (Source)Anatomical Location / LateralityCollection Method / VolumeCollection TimeReceived TimeBloodBLOOD SPECIMEN / UnknownVenipuncture / Agehhbf8208/29/2025 12:44 PM EST08/29/2025 12:44 PM EST Narrative Authorizing ProviderResult TypeResult StatusRobmarietta Maria Guadalupe OCHOACNPLABORATORYFinal ResultPerforming OrganizationAddressCity/State/ZIP CodePhone Number [facility] [address] [place] [address] * (ABNORMAL) PSA/PROSTSPECAG DIAG (12/07/2022 10:07 AM EST)ComponentValueRef RangeTest MethodAnalysis TimePerformed AtPathologist SignaturePSA3.16(H)<2.60 ng/mL12/08/2022 6:19 AM ESTCLEVELAND CLINIC [facility]OR [facility] LABComment: Total PSA test methodology used is the Electrochemiluminescence Immunoassay by [employer]. Total PSA values by differing methodologies cannot be interchanged. For an individual patient, the significance of a PSA level should be interpreted in a broad clinical context, including age, race, family history, digital rectal exam, prostate size, results of priortesting (prostate biopsy, free PSA, PCA3), and use of 5-alpha reductase inhibitors. Considering thehigh incidence of asymptomatic cancer in the general population that may not pose an ultimate risk to a patient, the decision to recommend urological evaluation or prostate biopsy should be individualized after consideration of all these factors. REFERENCE: Sean Sanchez M.D., M.P.H., Suman Roque M.D., Ph.D., Kvng Rivas M.D., Nicky Jonas, M.P.H., Fior López Sc.D. ??Effect of Verification Bias on Screening for Prostate Cancer by Measurement of Prostatic Specific Antigen. N Engl J Med 2003,349:335-42. Specimen (Source)Anatomical Location / LateralityCollection Method / Volume Collection TimeReceived TimeBloodBLOOD SPECIMEN / UnknownVenipuncture / Unknown 12/07/2022 10:07 AM EST12/07/2022 10:07 AM EST Narrative Authorizing ProviderResult TypeResult StatusFeliciano Borjas MDLABORATORYFinal ResultPerforming OrganizationAddressCity/State/ZIP CodePhone Number [facility] [address] [facility] [address] [place] [address], from Last 3 Months or Most Recently Relevant to Health Maintenance Insurance * Guarantor: Elzbieta Sow TypeRelation to PatientDate of BirthPhoneBilling AddressSelf [id number] 1965 [address] [place] [address] Care Teams Team MemberRelationshipSpecialtyStart Date Julian Mcgraw MD PCP - GeneralFamily Medicine10/26/[address] [place] [address] Registered DietitianNutrition11/04/22 Chiqui Modi RN [address] [facility] [place] [address] Specialty Care CoordinatorHematology/Oncology11/15/22 Vanesa Hahn, PA-C [facility] [address] Physician AssistantHematology/Oncology11/15/22 July Wiley, INTERMEDIATE SCHOOL TEACHER Social Worker11/21/22 Lucas Caicedo MD [address] [place] [address] PhysicianHematology/Oncology06/24/24
--- OUTSIDE RECORDS SUMMARY | 2025-09-01 10:14 | XMS_ITS | Encounter Summary ---
Author Organization [facility] Address [address] [place], [place] [address] Care Team Providers Care Inspector Repairer Sandstone Name Role Phone Julian Mcgraw MD Primary Care Provider [phone] Unavailable [phone] Chiqui Modi RN Unavailable [phone] Vanesa HahnC Unavailable [phone] July Wiley Unavailable Unavailable Lucas Caicedo MD Unavailable [phone] Source Comments In the event this information is protected by the Federal Confidentiality of Alcohol and Drug AbusePatient Records regulations: The Federal rules restrict any use of the information to criminally investigate or prosecute any alcohol or drug abuse patient.[facility] Encounter Details DateTypeDepartmentCare Team (Latest Contact Info)Objarglajon18/21/2025Travel Social History Tobacco UseTypesPacks/DayYears UsedDateSmoking Tobacco: XxmvryGuiycnmgbv494 10/13/1987 - 3Passive Smoke Exposure: PastSmokeless Tobacco: Former Alcohol UseStandard Drinks/WeekCommentsYes0 (1 standard drink = 0.6 oz pure alcohol)occPHQ-2AnswerDate RecordedPHQ-2 cvogk532/20/2024Area Deprivation Index AnswerDate RecordedNational Score (1-100), lower number is lower risk63 03/02/2023State Score (1-10), lower number is lower tfjf5973Data from: https://www.neighborhoodatlas.[facility]/. Last address used for gbnkmyaevod[address] [place] 8[address]403/02/2023Sex and Gender InformationValueDate RecordedSex Assigned at HrmrcLhgh72/18/2023 3:51 PM ESTLegal XdsHmyk24/02/2012 8:04 AM EST Gender FhabkpyvVros80/18/2023 3:51 PM ESTSexual HoosqckvjmwFldvlisw01/18/2023 3:51 PM ESTTravel HistoryTravel StartTravel KhaDdkaqc50 documented as of this encounter Plan of Treatment DateTypeDepartmentCare Team (Latest Contact Info)Satfscagmne96/02/2026 10:45 AM [facility]STM[facility]ematology[facility]Oncology [address] [place] [address] [place] [address] chemotx Kjrtnbss95/13/2026 1:15 PM ESTOffice Visit [facility] [address] [place] [address] [place] [address] 12 week follow up lab chemotx Kpmrxotn46/13/2026 1:30 PM ESTVisit (SP) Office Hematology/Oncology [address] [place] [address] [place] [address] Whitney Beckwith, ARIANNA.TALENT SPECIALIST [address] [place] [address] [place] [address] 12 week follow up lab chemotx Nmgzgayb82/13/2026 2:00 PM ESTInfusion Center Hematology/Oncology [address] [place] [address] [place] [address] 12 week follow up lab chemotx Keytrudadocumented as of this encounter Visit Diagnoses Not on filedocumented in this encounter Care Teams Team MemberRelationshipSpecialtyStart DateEnd Date Julian Mcgraw MD PCP - GeneralFamily Medicine10/26/[address] [facility] [address] Registered DietitianNutrition11/04/22 Chiqui Modi, RN [address] [facility] [address] Specialty Care CoordinatorHematology/Oncology11/15/22 Vanesa Hahn PA-C [address] [place] [address] [place] [address] Physician AssistantHematology/Oncology11/15/22 July Wiley LSW Social Worker11/21/22 Lucas Caicedo MD [address] [place] [address] [place] [address] PhysicianHematology/Oncology06/24/24documented as of this encounter
[2025-09-01 10:34] LABS: Cannabinoid Screen Urine NEGATIVE (NEGATIVE); Methamphetamines Screen Urine NEGATIVE (NEGATIVE); Tricyclic Antidepressant Urine NEGATIVE (NEGATIVE)
[2025-09-01 10:36] LABS: Cast Seen? NONE SEEN #/LPF (NONE SEEN); Crystals Seen? None Seen #/HPF (None Seen); Urine Culture Indicated NO
[2025-09-01] MEDS: LEVETIRACETAM 500 MG TABLET PO (11:53)
== END 2025-09-01 12:02 | disposition home or self-care (01) ==
PROVIDERS: Emergency Provider Emergency Medicine; PCP Family Medicine
DX: G40.89 Other seizures (principal); C79.31 Secondary malignant neoplasm of brain; Z87.891 Personal history of nicotine dependence
CPT/HCPCS: 36415; 70450; 71045; 80048; 80307; 81001; 85025; 93005; 99285

== ENCOUNTER 2025-09-02 16:00 | Outpatient (OUT) | payer OTHER, SELFPAY ==
--- OUTSIDE RECORDS SUMMARY | 2025-08-29 13:30 | XMS_ITS | Encounter Summary ---
Author Organization [facility] Address [address] [place], [place] [address] Care Team Providers Care Acting Teacher Name Role Phone Julian Mcgraw MD Primary Care Provider + Yadi Rosenthal RD Unavailable [phone] Chiqui Modi RN Unavailable [phone] Vanesa Hahn PA-C Unavailable [phone] July Wiley Unavailable Unavailable Lucas Caicedo MD Unavailable [phone] Source Comments In the event this information is protected by the Federal Confidentiality of Alcohol and Drug AbusePatient Records regulations: The Federal rules restrict any use of the information to criminally investigate or prosecute any alcohol or drug abuse patient.[facility] Reason for Visit * ReasonCommentsChemotherapy Treatment Encounter Details DateTypeDepartmentCare Team (Latest Contact Info)Oxfhslyssuo82/21/2025 1:30 PM ESTVisit (SP) Office Hematology/Oncology [address] [place] [address] [place] [address] Whitney Beckwith APRN.NEW ACCOUNTS BANKING REPRESENTATIVE [address] [place] [address] 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); Oropharnyx cancer (HCC); Adrenal insufficiency (HCC); Adrenal hypofunction (HCC); Malaise and fatigue Social History Tobacco UseTypesPacks/DayYears UsedDateSmoking Tobacco: CljouzPqftjlxmuc012 10/13/1987 - 3Passive Smoke Exposure: PastSmokeless Tobacco: Former Alcohol UseStandard Drinks/WeekCommentsYes0 (1 standard drink = 0.6 oz pure alcohol)occPHQ-2AnswerDate RecordedPHQ-2 mybic3944Area Deprivation Index AnswerDate RecordedNational Score (1-100), lower number is lower risk63 03/02/2023State Score (1-10), lower number is lower fjvs7363Data from: https://www.neighborhoodatlas.[facility]/. Last address used for ns[address]kk030 [place] [address]803/02/2023Sex and Gender InformationValueDate RecordedSex Assigned at AauvyDmir34/18/2023 3:51 PM ESTLegal EvwMwvf01/02/2012 8:04 AM EST Gender VawwxlshApac45/18/2023 3:51 PM ESTSexual RhxvfljfamcUwondyzh94/18/2023 3:51 PM ESTTravel HistoryTravel StartTravel KjwUehivn32 documented as of this encounter Last Filed Vital Signs Vital SignReadingTime TakenCommentsBlood Wkphhzpo472/7711 1:05 PM EST Fnxqm290608/29/2025 1:05 PM GFKXoxzrrucyuk56.4 ??C (97.6 ??F)08/29/2025 1:05 PM ESTRespiratory Momw844010/29/2024 1:05 PM ESTOxygen Ggsrgbgqxo01%08/29/2025 1:05 PM ESTInhaled Oxygen Concentration--Heclag70.3 kg (201 lb 4.5 oz)08/29/2025 1:05 PM ESTHeight--Body Mass Index28.4608 8:47 AM EDTdocumented in this encounter Progress Notes * Whitney Beckwith, FURNACE LINER.NEW ACCOUNTS BANKING REPRESENTATIVE - 08/29/2025 1:27 PM EST Images from the original note were not included. NAME: Kashif Sow [facility] NO.: [id number] DATE OF SERVICE: August 29, 2025 (Tang) Some elements in this clinic note that are critical to medical decision making have been carefully reviewed and included from a prior clinic note dated: May 29, 2025 (Sascha) Referring Provider: Feliciano Borjas MD Additional Clinicians involved in Kashif Sow's care: Salvador Erickson DIAGNOSIS: HPV positive BOT SCC CASE SUMMARY / ASSESSMENT: 60 year old male here for follow up and treatment. 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 PET with response 04/2023. CT [...] 2 nodulesgrowing and case discussed at TB. EBUS of hilar node was negative and so completed SBRT to the 2 pulmonary lesions end of June 2024. PET positive in the prostate and he follows urology CRI- Stable SUMMARIZED PLAN OF CARE: Proceed with Pembrolizumab today and q 6 weeks (prefer Monday's) No clinician in 6 weeks Labs and treatment only Next scans planned for 6 months RTC in 12 weeks for continued treatment Labs same day AI Assisted A/P: CASE HISTORY: Reverse Chronological Order 05/29/2025 - CT Chest: IMPRESSION: Slight decrease in size and increase of architectural distortion associated with the central right upper lobe mass and decrease in size of right apical nodule. Considerations as detailed in the body of the report. Slight decrease in size of small to borderline mediastinal hilar nodes. No other significant interval change. 02/20/2025 - CT CAP: Chest: New right [...] intra-abdominal/pelvic metastases. No interval change since 12/08/23. Nonspecificsubcentimeter hepatic foci, stable 01/02/2024-Current - Pembro monotherapy [...] HPV-associated squamous cell carcinoma (see comment). KRAS p.Suq32Agf NM_[id number]:c.35G>A 51.2% VAF, Depth 4267x, Ex2 PIK3CA p.Oyj497Lfa NM_006218.2:c.1633G>A 21.7% VAF, Depth 5015x, Ex10 PDL-1 Insufficient 07/2023 - CT Chest: Since 04/14/2023, multiple enlarging right lung nodules, suspicious for metastases. No progressive lymphadenopathy. 04/2023 - PET/CT: NECK: Interval resolution of intense uptake in the right tongue base. Resolution of FDG avid cervical lymphadenopathy. CHEST: New subcentimeter right upper lobe pulmonary nodules, too small to accurately assess for FDGuptake. Differential includes infection/inflammation or metastasis. Attention on [...] + radiation - Cisplatin completed: 12/21/2021 (total [place] dose: 200mg/m2), radiation completed: 01/06/2022 HPI: Updated Visit, August 29, 2025: The patient is a 60-year-old male with a history of tongue cancer presenting for follow-up. The patient is receiving pembrolizumab every [address] scan in May showed no evidence of active cancer, and the next scan is planned for 6 months from the last. Since the last visit, he reports no new problems. He notes a chronic cough that has been present since starting pembrolizumab, but states it has not changed. He denies shortness of breath, skin rashes, pruritus, abdominal pain, nausea, vomiting, diarrhea, dysphagia, or new lumps or bumps. He reports normal appetite and swallowing, and states he is able to do what he wants, when he wants. He reports he is working and traveling, and recently returned from a trip to [facility] and [place]. Updated Visit, May 29, 2025: On 10/15/2021, patient was diagnosed with head and neck cancer, specifically base of tongue cancer,and is currently undergoing treatment with Keytruda. Recent imaging revealed a new upper lobe mass obscuring previously treated pulmonary nodules and obstructing the right anterior segmental bronchus. This was interpreted by Dr. Erickson as likely treatment effect rather than disease progression. A follow-up scan was performed today, and the patient is scheduled to see Dr. Erickson next week to discuss the results. Patient reports frequent coughing triggered by temperature changes, such as entering a vehicle withair conditioning or going outside in the heat. [...] has no issues with vision aside from age-relatedchanges. He recently celebrated his birthday and continues to engage in family activities, such as annual trips to [place]. (Today) - Imaging study: Results pending. - [...] Chest is scheduled for 06/05/[address] Erickson, consider obtaining 1 week prior while he is here for treatment. He is in agreement to continue single agent Keytruda, due for C10 today. Labs are stable, anemia is improving compared to last month. Email from Dr. Erickson: Scottie Zavala, I wanted to touch base [...] PET because it will be overly sensitive forthe inflammation that is going on in there. [...] complaints today. Updated Visit, November 01, 2023: Kashif returns today for consideration of maintenance Keytruda. He remains on pembrolizumab every 6 weeks with no complaints. He has had no significant medical changes. He denies any shortness of breath, rashes, diarrhea, nausea, vomiting, abdominal pain. Recent imaging is stable. Had a recent trip to [facility] in [place] with his family and getting ready to go on a cruise with his in December. Updated Visit, September 13, 2024: Kashif Sow returns for follow-up and continued treatment. He remains on pembrolizumab every 6 weeksand is tolerating it well. Since his last [...] appetite is good. He denies any difficulty swallowing.Overall he is doing well and wishes to proceed with treatment as planned. He is going on a family trip next month to the [facility]. Updated Visit, August 02, 2024: Doing well and tolerated RT well. Scans scheduled for October next year. Kidney function off a little due to decreased water intake. Encouraged him to improve on this. Initial Visit, June 20, 2024: Transition of Care Kashif Sow presents today to transition his care following Dr. Borjas's relocation. He is joined by his , Clarissa. Recent lymph node biopsy was negative for malignancy, positive for necrotic tissue. He will undergo one radiation treatment to lung nodules in about [address] Erickson. Continue pembrolizumab today and q 6 weeks. They have 5 children - ages 30-19. CLARICE is from [place], Clarissa is from [place]. May 08, 2024: Kashif Sow is a 59 year old year old male here for follow up. Doing well outside of mild arthralgia. Denies any nausea and or abdominal pain and or diarrhea. Denies any skin rash and or cough REVIEW OF SYSTEMS Per HPI and otherwise negative by full review of organ systems. ECOG PERFORMANCE STATUS: 1 PHYSICAL EXAMINATION: Vitals: BP 130/77 Pulse 81 Temp (Src) 97.6 (Temporal) Resp 16 Wt 201 lb 4.5 oz (91.3kg) SpO2 98% Body surface area is 2.13 meters squared. Exam limited to gross visualization where appropriate. Gen.: This is an age-appropriate patient in no acute distress. Head: Appears atraumatic with no visible lesions. Eyes: Pupils equally round and reactive to light, extraocular muscles are intact. Neck: Supple. Respiratory: Appears to be respiring comfortably. Neurologic: Nonfocal to gross visualization. Alert and oriented ??3. Psychiatric: No evidence of inappropriate anxiety or depression. Skin: Visible areas of skin without rash, lesions, wounds or petechiae. ALLERGIES: No Known Allergies MEDICATIONS: famotidine (PEPCID) 20 mg tablet TAKE 1 TABLET BY MOUTH TWICE A DAY levothyroxine (SYNTHROID) 100 mcg tablet Take 1 tablet by mouth once daily. pembrolizumab (KEYTRUDA INTRAVENOUS) Inject intravenously. ondansetron (ZOFRAN) [...] needed. LABORATORY VALUES: WBC (k/uL) Date Value 08/29/2025 9.42 RBC (m/uL) Date Value 08/29/2025 4.85 Hemoglobin (g/dL) Date Value 08/29/2025 13.1 Hematocrit (%) Date Value 08/29/2025 40.3 MCV (fL) Date Value 08/29/2025 83.1 MCH (pg) Date Value 08/29/2025 27.0 MCHC (g/dL) Date Value 08/29/2025 32.5 RDW-CV (%) Date Value 08/29/2025 13.7 Platelet Count (k/uL) Date Value 08/29/2025 210 MPV (fL) Date Value 08/29/2025 8.0 (L) Glucose (mg/dL) Date Value 08/29/2025 117 (H) BUN (mg/dL) Date Value 08/29/2025 17 Creatinine (mg/dL) Date Value 08/29/2025 1.16 Sodium (mmol/L) Date Value 08/29/2025 137 Potassium (mmol/L) Date Value 08/29/2025 4.2 Chloride (mmol/L) Date Value 08/29/2025 100 CO2 (mmol/L) Date Value 08/29/2025 28 Protein, Total (g/dL) Date Value 08/29/2025 6.9 Albumin (g/dL) Date Value 08/29/2025 4.2 Calcium, Total (mg/dL) Date Value 08/29/2025 9.9 Alkaline Phosphatase (U/L) Date Value 08/29/2025 97 Bilirubin, Total (mg/dL) Date Value 08/29/2025 0.2 AST (U/L) Date Value 08/29/2025 14 ALT (U/L) Date Value 08/29/2025 13 DIAGNOSIS: No diagnosis found. PAST MEDICAL HISTORY Diagnosis Date Hard of [...] which included preparing to see the patient, nlio-xi-ncce patient care, completing clinical documentation, performing a medically appropriate examination, counseling and educating the patient/family/caregiver, ordering medications, tests, or procedures, independently interpreting results (not separately reported), communicating results to the patient/family/caregiver, and care coordination (not separately reported). Whitney Beckwith APRN.CNP Hematology and Oncology Services Provided at: [place], [place] CC: MD Salvador Clarke documented in this encounter Plan of Treatment DateTypeDepartmentCare Team (Latest Contact Info)Gtwyuqftcrv38/26/2025 9:[address] Scan 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]10/10/2025 10:45 AM ESTInfusion Center Hematology/Oncology [address] [place] [address] [place] [address] chemotx Zdoeqyyb35/13/2026 1:15 PM ESTOffice Visit [facility] [address] [place] [address] [place] [address] 12 week follow up lab chemotx Mjsxbhzk30/13/2026 1:30 PM ESTVisit (SP) Office Hematology/Oncology [address] [place] [address] [place] [address] Whitney Beckwith APRN.NEW ACCOUNTS BANKING REPRESENTATIVE [address] [place] [address] 12 week follow up lab chemotx Vlyybhek85/13/2026 2:00 PM [facility] Hematology/Oncology [address] [address] 12 week follow up lab chemotx KeytrudaNameTypePriorityAssociated DiagnosesOrder ScheduleCOMPLETE BLOOD COUNT AND DIFFERENTIALLabRoutine 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) Adrenal insufficiency (HCC) Adrenal hypofunction (HCC) Malaise and fatigue Every 6 weeks for 2 Occurrences starting 08/31/2025 until 08/31/2026 COMPREHENSIVE METABOLIC PANELLabRoutine 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) Adrenal insufficiency (HCC) Adrenal hypofunction (HCC) Malaise and fatigue Every 6 weeks for 2 Occurrences starting 08/31/2025 until 08/31/2026ORTISOL, SERUMLabRoutine 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) Adrenal insufficiency (HCC) Adrenal hypofunction (HCC) Malaise and fatigue Every 6 weeks for 2 Occurrences starting 08/31/2025 until 08/31/2026THYROID STIMULATING HORMONELabRoutine 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) Adrenal insufficiency (HCC) Adrenal hypofunction (HCC) Malaise and fatigue Every 6 weeks for 2 Occurrences starting 08/31/2025 until 08/31/2026documented as of this encounter Visit Diagnoses Diagnosis 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 Oropharnyx cancer (HCC) Adrenal insufficiency (HCC) Glucocorticoid deficiency Adrenal hypofunction (HCC) Glucocorticoid deficiency Malaise and fatigue Other malaise and fatigue documented in this encounter Care Teams Team MemberRelationshipSpecialtyStart DateEnd Date Julian Mcgraw MD PCP - GeneralFamily Medicine10/26/[address] [address] Registered DietitianNutrition11/04/22 Chiqui Modi, RN [address] [place] [address] [place] [address] Specialty Care CoordinatorHematology/Oncology11/15/22 Vanesa Hahn PA-C [address] [place] [address] [place] [address] Physician AssistantHematology/Oncology11/15/22 July Wiley LSW Social Worker11/21/22 Lucas Caicedo MD [address] [place] [address] [place] [address] PhysicianHematology/Oncology06/24/24documented as of this encounter
--- OUTSIDE RECORDS SUMMARY | 2025-08-29 14:00 | XMS_ITS | Encounter Summary ---
Author Organization [facility] Address [address] [place] [address] Care Team Providers Care Kitchen Hand Name Role Phone Julian Mcgraw MD Primary Care Provider + Yadi Rosenthal RD Unavailable [phone] Chiqui Modi RN Unavailable [phone] Vanesa HahnC Unavailable [phone] July Wiley Unavailable Unavailable Lucas Caicedo MD Unavailable [phone] Source Comments In the event this information is protected by the Federal Confidentiality of Alcohol and Drug AbusePatient Records regulations: The Federal rules restrict any use of the information to criminally investigate or prosecute any alcohol or drug abuse patient.[facility] Reason for Visit * [place] Prior Authorization (Routine) - AuthorizedSpecialtyDiagnoses / ProceduresReferred By ContactReferred To Contact Diagnoses Oropharnyx cancer (HCC) Procedures INJ PEMBROLIZUMAB Feliciano Borjas MD [address] [place] [address] Phone: tel: fax: Hematology/Oncology [address] [place] [address] [place] [address] Phone: tel: fax: Referral IDStatusReasonStart DateExpiration DateVisits RequestedVisits [id number]/7/202412/[id number] Encounter Details DateTypeDepartmentCare Team (Latest Contact Info)Bqqfmgncoji83/21/2025 2:00 PM ESTInfusion Center Hematology/Oncology [address] [place] [address] [place] [address] Oropharnyx cancer (HCC) (Primary Dx) Social History Tobacco UseTypesPacks/DayYears UsedDateSmoking Tobacco: HeqbxvKtjejebbzr695 10/13/1987 - 10/13/2022assive Smoke Exposure: PastSmokeless Tobacco: Former Alcohol UseStandard Drinks/WeekCommentsYes0 (1 standard drink = 0.6 oz pure alcohol)occPHQ-2AnswerDate RecordedPHQ-2 udtay8104Area Deprivation Index AnswerDate RecordedNational Score (1-100), lower number is lower risk63 03/02/2023State Score (1-10), lower number is lower hvku1573Data from: https://www.neighborhoodatlas.medicine.[facility].edu/. 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]09/03/2025 10:[address] Scan [address] [facility] [place] [address] 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) [C01]; 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]10/10/2025 10:45 AM [facility] Hematology/Oncology [address] [place] [address] [place] [address] chemotx Rjqlkvyy45/13/2026 1:15 PM ESTOffice Visit [facility] [address] [place] [address] [place] [address] 12 week follow up lab chemotx Sqeshthi13/13/2026 1:30 PM ESTVisit (SP) Office Hematology/Oncology [address] [place] [address] [place] [address] Whitney Beckwith APRN.SCOUT [address] [place] [address] [place] [address] 12 week follow up lab chemotx Guclvspf07/13/2026 2:00 PM [facility] Hematology/Oncology [address] [place] [address] [place] [address] 12 week follow up lab chemotx Keytrudadocumented as of this encounter Visit Diagnoses Diagnosis Oropharnyx cancer (HCC)- Primary documented in this encounter Administered Medications Medication OrderMAR ActionAction DateDoseRateSite pembrolizumab 400 mg in NaCl 0.9% 74 mL (KEYTRUDA) 400 mg, INTRAVENOUS, Administer over 30 Minutes, ONCE, 1 dose, On Mon08/29/25 at 1400, EXP: 09/02/2025 1410 Refrigerated Administer with 0.2 micron filter. Indications:Oropharnyx cancer (HCC)New Bag/Syringe/Ccxycx4808/29/2025 2:28 PM EST 400 mgdocumented in this encounter Care Teams Team MemberRelationshipSpecialtyStart DateEnd Julian Mcgraw MD PCP - GeneralFamily Medicine10/26/[address] [place] [address] [place] [address] Registered DietitianNutrition11/04/22 Chiqui Modi, RN [address] [place] [address] [place] [address] Specialty Care CoordinatorHematology/Oncology11/15/22 Vanesa Hahn PA-C [address] [place] [address] [place] [address] Physician AssistantHematology/Oncology11/15/22 July Wiley LSW Social Worker11/21/22 Lucas Caicedo MD [address] [place] [address] [place] [address] PhysicianHematology/Oncology06/24/24documented as of this encounter
--- OUTSIDE RECORDS SUMMARY | 2025-09-02 11:40 | XMS_ITS | Encounter Summary ---
Author Organization [facility] Address [address] [place] [address] Care Team Providers Care Marketing Representative Name Role Phone Julian Mcgraw MD Primary Care Provider + Yadi Rosenthal RD Unavailable [phone] Chiqui Modi RN Unavailable [phone] Vanesa HahnC Unavailable [phone] July Wiley OPTOMETRIC AIDE Unavailable Unavailable Lucas Caicedo MD Unavailable [phone] Source Comments In the event this information is protected by the Federal Confidentiality of Alcohol and Drug AbusePatient Records regulations: The Federal rules restrict any use of the information to criminally investigate or prosecute any alcohol or drug abuse patient.[facility] Reason for Referral * MRI/CT (Routine) - AuthorizedSpecialtyDiagnoses / ProceduresReferred By ContactReferred To ContactCT IMAGING Diagnoses 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) Metastasis to brain (HCC) Procedures CT CHEST W IVCON DIAGNOSTIC COMPUTED TOMOGRAPHY THORAX W/CONTRAST Lucas Caicedo MD [address] [place] [address] [place] [address] Phone: tel: fax: [place] [phone] Referral IDStatusReasonStcolumbiana DateExpiration DateVisits RequestedVisits [id number] Auto-Generated Referral * MRI/CT (Routine) - AuthorizedSpecialtyDiagnoses / ProceduresReferred By ContactReferred To ContactCT IMAGING Diagnoses 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) Metastasis to brain (HCC) Procedures CT ABD/PEL W IVCON CT ABD & PELVIS W/CONTRAST Lucas Caicedo MD [address] [place] [address] [place] [id number] Phone: tel: fax: [place] [address] Referral IDStatusReasonStart DateExpiration DateVisits RequestedVisits [id number] Auto-Generated Referral * Consult, Test, Treat (Urgent) - New RequestSpecialtyDiagnoses / Procedures Referred By ContactReferred To ContactRadiation Oncology Diagnoses 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) Metastasis to brain (HCC) Procedures OFFICE/OUTPATIENT NEW HIGH MDM 60 MINUTES Lucas Caicedo MD [address] [place] [address] [place] [address] Phone: tel: fax: Referral IDStatusReasonStart DateExpiration DateVisits RequestedVisits [id number] Request PCP Requested Referral * MRI/CT (Urgent) - New RequestSpecialtyDiagnoses / ProceduresReferred By ContactReferred To ContactMR IMAGING Diagnoses 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) Metastasis to brain (HCC) Procedures MRI BRAIN WO/W IVCON MRI BRAIN BRAIN STEM W/O W/CONTRAST MATERIAL Lucas Caicedo MD [address] [place] [address] [place] [address] Phone: tel: fax: [place] [address] Referral IDStatusReasonStart DateExpiration DateVisits RequestedVisits [id number] Request Auto-Generated Referral 51 Reason for Visit * ReasonCommentsUrgentBellevue ER Encounter Details DateTypeDepartmentCare Team (Latest Contact Info)Reniblqzsrk58/25/2025 11:40 AM ESTVisit (SP) Office Hematology/Oncology [address] [place] [address] [place] [address] Lucas Caicedo MD [address] [place] [address] [place] [address] 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); Metastasis to brain (HCC); Oropharnyx cancer (HCC); Personal history of irradiation; Malignant neoplasm of upper lobe, right bronchus or lung (HCC); Encounter for antineoplastic immunotherapy Social History Tobacco UseTypesPacks/DayYears UsedDateSmoking Tobacco: FqkqeoNgawivxqet529 10/13/1987 - 3Passive Smoke Exposure: PastSmokeless Tobacco: Former Alcohol UseStandard Drinks/WeekCommentsYes0 (1 standard drink = 0.6 oz pure alcohol)occPHQ-2AnswerDate RecordedPHQ-2 fstls2854Area Deprivation Index AnswerDate RecordedNational Score (1-100), lower number is lower risk63 03/02/2023State Score (1-10), lower number is lower wmfv5833Data from: https://www.neighborhoodatlas.medicine.[facility].edu/. Last address used for ycrdtyfastv910 2413503/02/2023Sex and Gender InformationValueDate RecordedSex Assigned at SxoqhHjux29/18/2023 3:51 PM ESTLegal SfyWxvp06/02/2012 8:04 AM EST Gender VprjwmnrMlyv65/18/2023 3:51 PM ESTSexual HjmboqqptmvProldgrw40/18/2023 3:51 PM ESTTravel HistoryTravel StartTravel RaoYbrxuw22 documented as of this encounter Last Filed Vital Signs Vital SignReadingTime TakenCommentsBlood Udvnztxd182/8209/02/2025 11:52 AM EST Sspvv460109/02/2025 11:52 AM PSCZmgpwmjnvdw15.3 ??C (97.3 ??F)09/02/2025 11:52 AM ESTRespiratory Lfvy798811/02/2024 11:52 AM ESTOxygen Ymdhownuas66%09/02/2025 11:52 AM ESTInhaled Oxygen Concentration--Qknare98.7 kg (197 lb 12.8 oz)09/02/2025 11:52 AM ESTHeight--Body Mass Index27.9708 8:47 AM EDTdocumented in this encounter Patient Instructions * Patient Instructions* Lucas Caicedo MD - 09/02/2025 12:24 PM EST STAT MRI Brain - CT CAP JOE - labs same time Referral STAT to Radiation Dexamethasone 8 mg twice Continue Keppra 500 mg BID We discussed your recent seizure and findings of a brain mass: - You experienced a seizure yesterday, and imaging has shown a mass in the right frontal lobe of your brain, measuring about 2.6 centimeters. This may be related to your known cancer. - I am starting you on dexamethasone 8 mg twice daily, using 4 mg tablets, to help decrease swelling around the tumor and reduce your risk of another seizure. This is a temporary medication, and we will plan to wean you off as soon as possible. - Continue taking Keppra 500 mg twice daily to help prevent further seizures. - I have ordered an MRI of your brain to get more detailed imaging. - I have referred you to the radiation oncology team to discuss possible radiation treatment for the brain mass. If there is only one spot, you may be considered for Gamma Knife surgery, which is a specialized form of radiation. The team may also consider surgery to remove the mass, which would help us learn more about it. - Please do not drive, especially not a truck, at this time due to your recent seizure. - I have messaged the radiation team to try to get you seen as soon as possible. We discussed your lung mass: - Your chest imaging shows a mass in the right upper lobe of your lung, which appears to have increased in size compared to previous scans. - I have ordered a CT scan of your chest, abdomen, and pelvis to further evaluate the lung mass andcheck for any changes. We discussed your cancer treatment: - We are holding your Keytruda treatment for now while we evaluate the new findings in your brain. Follow-up: - I have referred you to the radiation oncology team for evaluation and possible treatment of the brain mass. - I have ordered an MRI of your brain and a CT scan of your chest, abdomen, and pelvis. - We will coordinate with the radiation team and may refer you downtown if Gamma Knife treatment isneeded. documented in this encounter Plan of Treatment DateTypeDepartmentCare Team (Latest Contact Info)Liyauzwyllj18/26/2025 9:[address] [place], [place] [id number] 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) [C01]; 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]09/03/2025 10:[address] Scan [address] [place], [place] [id number] 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) [C01]; 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]10/10/2025 10:45 AM ESTInfusion Center Hematology/Oncology [address] [place] [address] [place] [address] chemotx Fnbkwyjq26/13/2026 1:15 PM ESTOffice Visit [facility] [address] [place] [address] [place] [address] 12 week follow up lab chemotx Jmzpiaen40/13/2026 1:30 PM ESTVisit (SP) Office Hematology/Oncology [address] [place] [address] [place] [address] Whitney Beckwith APRN.[employer] [address] [facility] [place] [address] 12 week follow up lab chemotx Dmemrcnb15/13/2026 2:00 PM [facility] Hematology/Oncology [address] [facility] [place] [address] 12 week follow up lab chemotx KeytrudaNameTypePriorityAssociated DiagnosesOrder ScheduleMRI BRAIN WO/W IVCONRadiologySTAT 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) Metastasis to brain (HCC) 1 Occurrences starting 09/02/2025 until 10/02/2026T ABD/PEL W IVCONRadiology Routine 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) Metastasis to brain (HCC) 1 Occurrences starting 09/02/2025 until 10/02/2026T CHEST W IVCONRadiology Routine 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) Metastasis to brain (HCC) 1 Occurrences starting 09/02/2025 until 10/02/2026OMPLETE BLOOD COUNT AND DIFFERENTIALLabRoutine 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) Metastasis to brain (HCC) Expected: 09/05/2025 (Approximate), Expires: 09/02/2026OMPREHENSIVE METABOLIC PANELLabRoutine 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) Metastasis to brain (HCC) Expected: 09/05/2025 (Approximate), Expires: 09/02/2026NameTypePriority Associated DiagnosesOrder ScheduleRAD/ONC CONSULTReferralSTAT 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) Metastasis to brain (HCC) 1 Occurrences starting 09/02/2025 until 09/02/2026documented as of this encounter Visit Diagnoses Diagnosis 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 Metastasis to brain (HCC) 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) Personal history of irradiation Personal history of irradiation, presenting hazards to health Malignant neoplasm of upper lobe, right bronchus or lung (HCC) Encounter for antineoplastic immunotherapy documented in this encounter Care Teams Team MemberRelationshipSpecialtyStart DateEnd Date Julian Mcgraw MD PCP - GeneralFamily Medicine10/26/[address] [place] [address] Registered DietitianNutrition11/04/22 Chiqui Modi, RN [address] [place] [address] Specialty Care CoordinatorHematology/Oncology11/15/22 Vanesa Hahn PA-C [address] [place] [address] [place] [address] Physician AssistantHematology/Oncology11/15/22 July Wiley LSW Social Worker11/21/22 Lucas Caicedo MD [address] [place] [address] [place] [address] PhysicianHematology/Oncology06/24/24documented as of this encounter
--- OUTSIDE RECORDS SUMMARY | 2025-09-02 16:02 | XMS_ITS | Encounter Summary ---
Author Organization [facility] Address [address] [place], [place] [address] Care Team Providers Care Fern Picker Name Role Phone Julian Mcgraw MD Primary Care Provider + Yadi Rosenthal RD Unavailable [phone] Chiqui Modi RN Unavailable [phone] Vanesa Hahn PA-C Unavailable [phone] July Wiley Unavailable Unavailable Lucas Caicedo MD Unavailable [phone] Source Comments In the event this information is protected by the Federal Confidentiality of Alcohol and Drug AbusePatient Records regulations: The Federal rules restrict any use of the information to criminally investigate or prosecute any alcohol or drug abuse patient.[facility] Reason for Visit * ReasonCommentsOrdersOrders and referral to Rad Encounter Details DateTypeDepartmentCare Team (Latest Contact Info)Xeyzygxlrzq04/25/2025Telephone Cancer Appts [facility] [place] [address] Lucas Caicedo MD [employer] [place] [address] Orders (Orders and referral to Rad) Social History Tobacco UseTypesPacks/DayYears UsedDateSmoking Tobacco: PdgcabPkgvopuicr181 10/13/1987 - 3Passive Smoke Exposure: PastSmokeless Tobacco: Former Alcohol UseStandard Drinks/WeekCommentsYes0 (1 standard drink = 0.6 oz pure alcohol)occPHQ-2AnswerDate RecordedPHQ-2 rdvup6024Area Deprivation Index AnswerDate RecordedNational Score (1-100), lower number is lower risk63 03/02/2023State Score (1-10), lower number is lower azqf523ata from: https://www.neighborhoodatlas.medicine.[facility].edu/. Last address used for pwxeusmedzr793 [place] [address]603/02/2023Sex and Gender InformationValueDate RecordedSex Assigned at XivyoMasx22/18/2023 3:51 PM ESTLegal YfcIipn75/02/2012 8:04 AM EST Gender DcvffuokEutu49/18/2023 3:51 PM ESTSexual CvtqalnxwehFvaxuhly32/18/2023 3:51 PM ESTTravel HistoryTravel StartTravel ZcdJumnta74/21/ documented as of this encounter Miscellaneous Notes * Telephone Encounter - Amee Correa RN - 09/02/2025 1:[address] Ruff sent secure chat to Rad Onc Providers. Pt will likely get Gamma Knife. MRI scheduled at [facility]. Will need report and images in am first thing for Dr Ivy to review. If he has multiple areas, we will see him here. If not, he will need referred to Gamma knife team downtown. Amee Correa RN * Telephone Encounter - Gladys Paul - 09/02/2025 12:49 PM EST Images from the original note were not included. MRI approved (Clarissa) and scheduled with [facility] today at 5:00pm [place]: please watch for results. CT scan scheduled for 09/10/25 in [place] (first available opening. Time approved by Bety Head) Rad Nursing: Please advise on when he can get in with Dr. Ivy. Thank you, Gladys Paul documented in this encounter Plan of Treatment DateTypeDepartmentCare Team (Latest Contact Info)Kkwtcfhzvdg53/26/2025 9:[address] Scan [address] [place], [place] [id number] 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) [C01]; 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]09/03/2025 10:[address] Scan [address] [facility] [address] [place], [place] [id number] 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) [C01]; 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]10/10/2025 10:45 AM ESTInfusion Center Hematology/Oncology [address] [place] [address] [place] [address] chemotx Szihjhii34/13/2026 1:15 PM ESTOffice Visit [facility] [address] [place] [address] [place] [address] 12 week follow up lab chemotx Jrgousve86/13/2026 1:30 PM ESTVisit (SP) Office Hematology/Oncology [address] [place] [address] [place] [address] Whitney Beckwith, CUTTING SUPERVISOR.SCHOOL OFFICE MANAGER [address] [place] [address] [place] [address] 12 week follow up lab chemotx Vjyxrifp55/13/2026 2:00 PM ESTInfusion Center Hematology/Oncology [address] [place] [address] [place] [address] 12 week follow up lab chemotx Keytrudadocumented as of this encounter Visit Diagnoses Not on filedocumented in this encounter Care Teams Team MemberRelationshipSpecialtyStart DateEnd Date Julian Mcgraw MD PCP - GeneralFamily Medicine1/18/[address] [facility] [place] [address] Registered DietitianNutrition11/04/22 Chiqui Modi, RN [address] [facility] [place] [address] Specialty Care CoordinatorHematology/Oncology11/15/22 Vanesa Hahn PAMaguiC [address] [place] [address] [place] [address] Physician AssistantHematology/Oncology11/15/22 July Wiley LSW Social Worker11/21/22 Lucas Caicedo MD [address] [place] [address] [place] [address] PhysicianHematology/Oncology06/24/24documented as of this encounter
--- OUTSIDE RECORDS SUMMARY | 2025-09-02 16:03 | XMS_ITS ---
Author Organization [facility] Address [address] [place], [place] [address] Care Team Providers Care Chief Revenue Officer Name Role Phone Julian Mcgraw MD Primary Care Provider [phone] Unavailable [phone] Chiqui Modi RN Unavailable [phone] Vanesa Hahn PA-C Unavailable [phone] July Wiley Unavailable Unavailable Lucas Caicedo MD Unavailable [phone] Active Problems ProblemNoted DateDiagnosed DateAdrenal qedpqkktqjdw37/04/2025Former smoker 05/14/2024 Assessment & Plan (05/14/2024 2:37 PM EDT): Quit smoking in 10/2022. ~ 35 pack years. Denies CP or SOB. Reports a chronic cough. Lejkcqmdhddsjo57/06/2024 Assessment & Plan (05/14/2024 2:44 PM EDT): Takes Synthroid. Seen by endocrinology on 05/10/24. TSH Date Value Ref Range Status 05/08/2024 5.160 (H) 0.270 - 4.200 mIU/L Final Adrenal xjmafjrmhtogw10/06/2024 Assessment & Plan (05/14/2024 2:45 PM EDT): Takes hydrocortisone. Seen by endocrinology on 05/10/24. HTN (hypertension)05/14/2024 Assessment & Plan (05/14/2024 2:45 PM EDT): Takes amlodipine and lisinopril. Denies CP, SOB, or palpitations. HLD (hyperlipidemia)05/14/2024 Assessment & Plan (05/14/2024 2:46 PM EDT): Takes pravastatin. Denies CP. CKD (chronic kidney disease)05/14/2024 Assessment & Plan (05/14/2024 2:50 PM EDT): Stable. Severe protein-calorie qzurtzfvqmdv95/13/2023Malignant neoplasm of base of uampjo2211/02/2022 Cancer Staging: Clinical stage from 11/02/2022:Stage III(cT3, cN1, cM0) - Signed by Feliciano Borjas MD on 11/02/2022 Assessment & Plan (05/14/2024 2:47 PM EDT): S/p chemo and RT. Takes Keytruda. Follows with heme/onc, last seen in 05/08/24. Oropharnyx lkwnfm4111/02/2022 Current Treatment and Therapy Plans AMB PEMBROLIZUMAB [...]
--- OUTSIDE RECORDS SUMMARY | 2025-09-02 16:03 | XMS_ITS | Encounter Summary ---
Author Organization [facility] Address [address] [place], [place] [address] Care Team Providers Care Raisin Washer Name Role Phone Julian Mcgraw MD Primary Care Provider [phone] Unavailable [phone] Chiqui Modi RN Unavailable [phone] Vanesa HahnC Unavailable [phone] July Wiley Unavailable Unavailable Lucas Caicedo MD Unavailable [phone] Source Comments In the event this information is protected by the Federal Confidentiality of Alcohol and Drug AbusePatient Records regulations: The Federal rules restrict any use of the information to criminally investigate or prosecute any alcohol or drug abuse patient.[facility] Encounter Details DateTypeDepartmentCare Team (Latest Contact Info)Rkqxxzfcohh88/21/2025Travel Social History Tobacco UseTypesPacks/DayYears UsedDateSmoking Tobacco: IomejvSneessedal358 10/13/1987 - 3Passive Smoke Exposure: PastSmokeless Tobacco: Former Alcohol UseStandard Drinks/WeekCommentsYes0 (1 standard drink = 0.6 oz pure alcohol)occPHQ-2AnswerDate RecordedPHQ-2 ksbyz583/20/2024Area Deprivation Index AnswerDate RecordedNational Score (1-100), lower number is lower risk63 03/02/2023State Score (1-10), lower number is lower udwf9733Data from: https://www.neighborhoodatlas.[facility]/. Last address used for shaflryxtcc071 CR 0949803/02/2023Sex and Gender InformationValueDate RecordedSex Assigned at HeinkKcgq97/18/2023 3:51 PM ESTLegal OfeTgii39/02/2012 8:04 AM EST Gender IrptygrzNzux36/18/2023 3:51 PM ESTSexual RexgknzmkdsJdjcaecc21/18/2023 3:51 PM ESTTravel HistoryTravel StartTravel BjsPcsiyd20 documented as of this encounter Plan of Treatment DateTypeDepartmentCare Team (Latest Contact Info)Anixeppitve66/26/2025 9:[address] Scan [address] [facility] [place] [address] 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) [C01]; 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]09/03/2025 10:[address] Scan [address] [facility] [place] [address] 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) [C01]; 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]10/10/2025 10:45 AM ESTInfusion Center Hematology/Oncology [address] [place] [address] [place] [address] chemotx Nvktrkgc29/13/2026 1:15 PM ESTOffice Visit [facility] [address] [place] [address] [place] [address] 12 week follow up lab chemotx Kfsjpgxc94/13/2026 1:30 PM ESTVisit (SP) Office Hematology/Oncology [address] [place] [address] [place] [address] Whitney Beckwith APRN.[address] [place] [address] 12 week follow up lab chemotx Uegwktap82/13/2026 2:00 PM [facility] Hematology/Oncology [address] [facility] [place] [address] 12 week follow up lab chemotx Keytrudadocumented as of this encounter Visit Diagnoses Not on filedocumented in this encounter Care Teams Team MemberRelationshipSpecialtyStart DateEnd Date Julian Mcgraw MD PCP - GeneralFamily Medicine10/26/[address] [facility] [place] [address] Registered DietitianNutrition11/04/22 Chiqui Modi, RN [address] [facility] [place] [address] Specialty Care CoordinatorHematology/Oncology11/15/22 Vanesa Hahn PAMaguiC [address] [place] [address] [place] [address] Physician AssistantHematology/Oncology11/15/22 July Wiley LSW Social Worker11/21/22 Lucas Caicedo MD [address] [place] [address] [place] [address] PhysicianHematology/Oncology06/24/24documented as of this encounter
--- OUTSIDE RECORDS SUMMARY | 2025-09-02 16:03 | XMS_ITS | Clinical Summary ---
Author Organization [facility] Healthcare Address [address] [place] [address] Care Team Providers Care Avionics Engineer Name Role Phone Julian Mcgraw MD Primary Care Provider [phone] Allergies No known active allergies Medications MedicationSigDispense [...] before bedtime.5Active Active Problems ProblemNoted DateDiagnosed DateErectile /24/2025Malignant tumor of ntosoydhwu49/21/2025Metastatic malignant nfyosnmy40/21/2025Lung qslusj6511/01/2024 Adrenal knhxnphadnlre38/06/2024CKD (chronic kidney disease)05/14/2024Former wkmnlk6705/14/2024hronic otorrhea of right ear04/19/20246805Xndwwocdq86/08/2024oor urinary yxidoq9802/14/2024symptomatic microscopic qrluzcmxc04/08/2024Benign prostatic hyperplasia with urinary girssywyunt87/08/9060Pjtzpbjwqxuiuc92/08/2024 Adenomatous polyp of colon02/14/2024Hx of malignant neoplasm of prostate 02/14/2024High prostate specific antigen (PSA)02/14/2024Severe protein-calorie malnutrition (HHS-HCC)02/14/2024olon polyp02/14/2024Ear /08/2024Mass in neck02/14/20245486Fohpdzyrtcd11/08/2024cute swimmer's ear of right side 05/12/2023Hearing loss04/09/2023Metastasis to head and neck lymph node02/24/2023 Squamous cell cancer of drumbh02 Overview (04/09/2023): Diagnosed 10/18/22. 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 Completed chemo/radiation 01/06/23. Monthly followup initiated 01/2023. Hlcemlzrjlmu62/19/2023 Resolved Problems ProblemNoted DateDiagnosed DateResolved DateAdenomatous polyp of colon04/09/2023 04/09/20239324Gtmaihfvf69symptomatic microscopic hematuria enign prostatic hyperplasia with urinary obstruction Family history of malignant neoplasm of thsqeajp00/02/2023 04/09/2023High prostate specific antigen (PSA)Hyperlipidemia oor urinary kgtzcq42Mass of neck Severe protein-calorie malnutrition (HHS-HCC)12/19/2022 04/09/2023 Encounters DateTypeDepartmentCare DrvsJjunnwuktcm30/24/2025 1:00 PM EDTOffice Visit [facility] [address] [place] [id number] Poonam Brennan MD 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)08/01/2025amboo flowsheet [facility] [address] [place] [address] Poonam Brennan MD 08/01/2025Travelfrom Last 3 Months Immunizations ImmunizationAdministration DatesNext DueInfluenza, injectable, quadrivalent, preservative free11/17/2022 Family History Medical HistoryRelationNameCommentsCancerFatherJim LottHyperlipidemiaFatherJim LottHypertensionFatherJim LottHyperlipidemiaMotherCarol LottCancerSisterSister Thyroid cancerSisterSisterRelationNameStatusCommentsFatherJim LottMotherCarol LottSisterSister Social History Tobacco UseTypesPacks/DayYears UsedDateSmoking Tobacco: AamponTvgnzhkhdo799 10/09/2007 - 10/09/2022Smokeless Tobacco: FormerSnuffQuit: 10/09/1987 Tobacco Cessation:Counseling Given: Not Answered Alcohol UseStandard Drinks/DhsnTqkqevxbOrz14 (1 standard drink = 0.6 oz pure alcohol)caffeine intake: 3-4 cups per dayAUDIT-CAnswerDate RecordedFrequency of Alcohol ConsumptionNot on file11/16/2023Q2: How many drinks containing alcohol do you have on a typical day when you are drinking?1 or Q3: How often do you have six or more drinks on one occasion?Less than katpcqf0611/16/2023Sex and Gender InformationValueDate RecordedSex Assigned at RqelqYdzp01/29/2023 5:19 PM EDTLegal HrxFnxu3012/21/2022 7:06 PM EDTGender HewpenfnSrot34/29/2023 5:19 PM EDTSexual NebqmechziyEywttavd65/29/2023 5:19 PM EDT Last Filed Vital Signs Vital SignReadingTime TakenCommentsBlood Lmrgiyhi875/8510 1:02 PM EDT Vyyli159108/01/2025 1:02 PM EDTTemperature--Respiratory Rate--Oxygen Saturation-- Inhaled Oxygen Concentration--Muzzke91.7 kg (200 lb)08/01/2025 1:02 PM EDTHeight 180.3 cm (5' 11 )08/01/2025 1:02 PM EDTBody Mass Index27.8908/01/2025 1:02 PM EDT Plan of Treatment DateTypeDepartmentCare Team (Latest Contact Info)Ybocfaodyxz65/23/2026 1:30 PM ESTOffice Visit [facility] [address] [facility] [address] [place] [address] Poonam Brennan MD [address] [facility] [address] [place] [address] Insurance * Guarantor: Kashif Sow TypeRelation to PatientDate of BirthPhone Billing AddressPersonal/OdssgfAzhi1965 [address] [address] Care Teams Team MemberRelationshipSpecialtyStart Date Julian Mcgraw MD [address] [place] [phone] PCP - GeneralFamily Medicine04/28/25
--- OUTSIDE RECORDS SUMMARY | 2025-09-02 16:03 | XMS_ITS | Clinical Summary ---
Author Organization [facility] Address [address] [place], [place] [address] Care Team Providers Care Scrap Piler Name Role Phone Julian Mcgraw MD Primary Care Provider + Yadi Rosenthal RD Unavailable [phone] Chiqui Modi RN Unavailable [phone] Vanesa Hahn PA-C Unavailable [phone] July Wiley Unavailable Unavailable Lucas Caicedo MD Unavailable [phone] Allergies No known active allergies Medications [...] BY MOUTH TWICE A DAY 180 tablet 5Active levETIRAcetam (KEPPRA) 500 mg tablet Take 500 mg by mouth two times a day.5Active dexAMETHasone (DECADRON) 4 mg tablet Take 2 tablets by mouth two times a day with meals. 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 Discontinue saline lock post exam. IfPt. has a central line or IVAD, may access for administration according to line specific nursing protocol. Once exam is complete flush line and de-access according to line specific nursing protocol in the CT contrast administration guidelines link. 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 ~ 35 pack years. Denies CP or SOB. Reports a chronic cough. Rpryenoutugrlf03/06/2024 Assessment & Plan (05/14/2024 2:44 PM EDT): Takes Synthroid. Seen by endocrinology on 05/10/24. TSH Date Value Ref Range Status 05/08/2024 5.160 (H) 0.270 - 4.200 mIU/L Final Adrenal yviwhqztpbxim33/06/2024 Assessment & Plan (05/14/2024 2:45 PM EDT): Takes hydrocortisone. Seen by endocrinology on 05/10/24. HTN (hypertension)05/14/2024 Assessment & Plan (05/14/2024 2:45 PM EDT): Takes amlodipine and lisinopril. Denies CP, SOB, or palpitations. HLD (hyperlipidemia)05/14/2024 Assessment & Plan (05/14/2024 2:46 PM EDT): Takes pravastatin. Denies CP. CKD (chronic kidney disease)05/14/2024 Assessment & Plan (05/14/2024 2:50 PM EDT): Stable. Severe protein-calorie izzzyvgoumxq28/13/2023Malignant neoplasm of base of zkyvnx4811/02/2022 Cancer Staging: Clinical stage from 11/02/2022:Stage III(cT3, cN1, cM0) - Signed by Feliciano Borjas MD on 11/02/2022 Assessment & Plan (05/14/2024 2:47 PM EDT): S/p chemo and RT. Takes Keytruda. Follows with heme/onc, last seen in 05/08/24. 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); Metastasis to brain (HCC); Oropharnyx cancer (HCC); Personal history of irradiation; Malignant neoplasm of upper lobe, right bronchus or lung (HCC); Encounter for antineoplastic ztzmhohflequa56/25/2025Telephone Cancer Appts [address] [place] [address] Lucas Caicedo MD Orders (Orders and referral to Rad)09/01/2025Telephone Hematology/Oncology [address] [place] [address] [place] [address] Yordan Retana MD 08/29/2025 2:00 PM ESTGeorg[facility]usion [facility]ematology[facility]Oncology [address] [place] [address] [place] [address] Oropharnyx cancer (HCC) (Primary Dx)08/29/2025 1:30 PM ESTVisit (SP) Office Hematology/Oncology [address] [place] [address] [place] [address] Whitney Beckwith, 3D MODELER.[employer] 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); Oropharnyx cancer (HCC); Adrenal insufficiency (HCC); Adrenal hypofunction (HCC); Malaise and poebnxk3808/29/20254305Cyxesf29/10/2025Telephone Hematology/Oncology [address] [place] [address] [place] [address] Poly Doran RN Lab Ezetjd2407/24/2025Refill Endocrinology [address] [place] [address] Tom Medina MD Refill Odneidz1507/11/2025 1:30 PM EDTInfusion Center Hematology/Oncology [address] [place] [address] [place] [address] Oropharyngeal cancer (HCC) (Primary Dx); Oropharnyx cancer (HCC)07/11/20254493Yocifi62/28/2025 11:30 AM EDTOffice Visit Radiation Oncology [address] [place] [address] Salvador Erickson MD Malignant neoplasm of unspecified part of unspecified bronchus or lung (HCC) (Primary Dx)06/05/2025Travelfrom Last 3 Months Immunizations ImmunizationAdministration DatesNext Dueinfluenza (IIV4) vaccine, age 6 mo - 64 yr, quadrivalent, PF (AFLURIA, FLUARIX, FLULAVAL, FLUZONE)11/17/2022influenza (LAIV) vaccine, nasal, unspecified mxkvrrfifhz98/09/2023influenza vaccine, unspecified xoelsuyddwd05/09/2023 Family History Medical HistoryRelationCommentsProstate CancerFatherThyroid CancerSister Anesthesia ProblemsNo Family HistoryMalig HyperthermiaNo Family HistoryRelation StatusCommentsFatherDeceasedSisterAlive Social History Tobacco UseTypesPacks/DayYears UsedDateSmoking Tobacco: WzdkuwDrbgnyhhat917 10/13/1987 - 10/13/2022assive Smoke Exposure: PastSmokeless Tobacco: Former Tobacco Cessation:Counseling Given: Not Answered Alcohol UseStandard Drinks/WeekCommentsYes0 (1 standard drink = 0.6 oz pure alcohol)occPHQ-2AnswerDate RecordedPHQ-2 clelr9164Area Deprivation Index AnswerDate RecordedNational Score (1-100), lower number is lower risk63 03/02/2023State Score (1-10), lower number is lower awoy477ata from: https://www.neighborhoodatlas.medicine.[facility].edu/. Last address used for eqaspewjhfy[address] [place] [address]/02/2023Sex and Gender InformationValueDate RecordedSex Assigned at OzjkzClsq99/18/2023 3:51 PM ESTLegal LaqOuuq80/02/2012 8:04 AM EST Gender ZkoepcmxGglu13/18/2023 3:51 PM ESTSexual JfbyqcgpflaWggpoxru63/18/2023 3:51 PM ESTTravel HistoryTravel StartTravel CmrOsanos86 Last Filed Vital Signs Vital SignReadingTime TakenCommentsBlood Wxsreoyd836/8209/02/2025 11:52 AM EST Chjvc715409/02/2025 11:52 AM NVULdwrtqbdvky33.3 ??C (97.3 ??F)09/02/2025 11:52 AM ESTRespiratory Lnqo003311/02/2024 11:52 AM ESTOxygen Dtbyueydoo30%09/02/2025 11:52 AM ESTInhaled Oxygen Concentration--Fbxnzv73.7 kg (197 lb 12.8 oz)09/02/2025 11:52 AM QYBHvppqe098.1 cm (5' 10.51 )05/29/2025 8:47 AM EDTBody Mass Index27.97 05/29/2025 8:47 AM EDT Plan of Treatment DateTypeDepartmentCare Team (Latest Contact Info)Zrsoqhnhhca80/26/2025 9:[address] Scan [address] [facility] [address] [place], [place] [id number] 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) [C01]; 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]09/03/2025 10:[address] [facility] [address] [place], [place] [id number] 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) [C01]; 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]10/10/2025 10:45 AM ESTInfusion Center Hematology/Oncology [address] [place] [address] [place] [address] chemotx Ydjgjvej38/13/2026 1:15 PM ESTOffice Visit [facility] [address] [place] [address] [place] [address] 12 week follow up lab chemotx Wdtokjeh52/13/2026 1:30 PM ESTVisit (SP) Office Hematology/Oncology [address] [place] [address] [place] [address] Whitney Beckwith, ARIANNA.[employer] [address] [place] [address] [place] [address] 12 week follow up lab chemotx Upswzwoz11/13/2026 2:00 PM ESTInfusion Center Hematology/Oncology [address] [place] [address] [place] [address] 12 week follow up lab chemotx KeytrudaHealth MaintenanceDue DateLast Done CommentsAnnual PCP Team Chronic Disease Visit1984Anxiety Screening 1984Depression Zdqsgscss08/06/1984HIV Oasnscmxv57/06/1984Hepatitis C Sgwrfmngd14/06/1984DTaP,Tdap,Td Vaccine (1 - Tdap)1985Pneumococcal Vaccine: 50+ (1 of 2 - PCV)1985Shingrix Vaccine (1 of 2)1985Lipid Meycgqyea14/06/2001CT Gqtgcszktrwy78/06/2011Cologuard (FIT-DNA)2011 Rurddkpfmxq31/06/2011Colorectal Cancer Rkkizlvgq81/06/2011Fecal Occult Blood 04/13/20119541Rkssxtqsfcnvr04/06/2011Covid-19 Vaccine (3 - Pfizer risk series) /, 08/06/2021Influenza Vaccine (#1)502/06/2023, 11/17/2022, 11/17/2022Serum Qsxjioyepw39/21/128448/, 07/11/2025, 05/29/2025, Additional history existsProstate Cancer Screening Discussion 803/3Diabetes Apljaotpo98/, 08/29/2025, 07/11/2025, Additional history exists Procedures Procedure NamePriorityDate/TimeAssociated DiagnosisCommentsEXTERNAL IMAGING 09/01/2025 12:55 PM EST EXTERNAL UGCUNWX8109/01/2025 12:55 PM EST EXTERNAL LAB09/01/2025 12:55 PM EST EXTERNAL LAB09/01/2025 12:55 PM EST EXTERNAL LAB09/01/2025 12:55 PM EST XR OUTSIDE CD DICOM KSGIPQ8409/01/2025 CT OUTSIDE CD DICOM PXYEXN7209/01/2025 HEMOGLOBIN G0RIdkspfg60/21/2025 12:44 PM EST 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) CORTISOL HEFPrubuht78/21/2025 12:44 PM EST 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) CBC + AWHRHatsgqf95/21/2025 12:44 PM EST 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) COMPREHENSIVE METABOLIC ODXHRInyqjrz55/21/2025 12:44 PM EST 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) TSH LZYDgqlhzj54/21/2025 12:44 PM EST 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) TSH QXAWxkclmj57/03/2025 1:23 PM EDT Oropharnyx cancer (HCC) COMPREHENSIVE METABOLIC RKLWJNxscaqj45/03/2025 1:23 PM EDT Oropharnyx cancer (HCC) PSA XKUQXWMKYVBjpciuc96/01/2023 10:07 AM EST Benign prostatic hyperplasia, unspecified whether lower urinary tract symptoms present from Last 3 Months or Most Recently Relevant to Health Maintenance Results * EXTERNAL IMAGING (09/01/2025 12:55 PM EST)Anatomical RegionLateralityModality Other Narrative Authorizing ProviderResult TypeResult StatusExternal Provider PA-CRADIOLOGYFinal Result * EXTERNAL IMAGING (09/01/2025 12:55 PM EST)Anatomical RegionLateralityModality Other Narrative Authorizing ProviderResult TypeResult StatusExternal Provider PA-CRADIOLOGYFinal Result * EXTERNAL LAB (09/01/2025 12:55 PM EST) Only the most recent of3 resultswithin the time period is included. Narrative Authorizing ProviderResult TypeResult StatusExternal Provider PA-CLABORATORY Final Result * OT-XR CHEST 1V IMPORT (09/01/2025)Anatomical RegionLateralityModalityOther Specimen (Source)Anatomical Location / LateralityCollection Method / Volume Collection TimeReceived Time09/01/2025 Narrative 09/01/2025 4:38 PM EST Images were obtained outside of [facility] Procedure Note Provider, [facility] [place] - 09/01/2025 Images were obtained outside of [facility] Authorizing ProviderResult TypeResult StatusCcf ProviderRADIOLOGYFinal Result * CT-CT HEAD/BRAIN WO CON IMPORT (09/01/2025)Anatomical RegionLateralityModality OtherSpecimen (Source)Anatomical Location / LateralityCollection Method / VolumeCollection TimeReceived Time09/01/2025 Narrative 09/01/2025 4:38 PM EST Images were obtained outside of [facility] Procedure Note Provider, [facility] [place] - 09/01/2025 Images were obtained outside of [facility] Authorizing ProviderResult TypeResult StatusCcf ProviderRADIOLOGYFinal Result * THYROID STIMULATING HORMONE (08/29/2025 12:44 PM EST) Only the most recent of2 resultswithin the time period is included. ComponentValueRef RangeTest MethodAnalysis TimePerformed AtPathologist Signature TSH3.3800.270 - 4.200 mIU/L110/30/2024 5:25 PM [facility] Specimen (Source)Anatomical Location / LateralityCollection Method / Volume Collection TimeReceived TimeBloodBLOOD SPECIMEN / UnknownVenipuncture / Unknown 08/29/2025 12:44 PM EST08/29/2025 12:44 PM EST Narrative Authorizing ProviderResult TypeResult StatusoJrgeimee Maria Guadalupe OCHOACNPLABORATORYFinal ResultPerforming OrganizationAddressCity/State/ZIP CodePhone Number [facility] [address] * HEMOGLOBIN A1C (08/29/2025 12:44 PM EST)ComponentValueRef RangeTest Method Analysis TimePerformed AtPathologist SignatureHemoglobin A1C5.34.3 - 5.6 % 08/30/2025 5:[address] [facility] LABComment:[place] Diabetes Association guidelines indicate that patients with HgbA1c in the range 5.7- 6.4% are at increased risk for development of diabetes, and intervention by lifestyle modification may be beneficial. HgbA1c greater or equal to 6.5% is considered diagnostic of diabetes.Estimated Average Aslyihx740uy/dL08/30/2025 5:[address] [facility] LABComment:eAG: (Estimated average glucose) is a calculated value from HgbA1c and is hostess party sales representative of the average blood glucose level in the last 2-3 month period.Specimen (Source)Anatomical Location / LateralityCollection Method / VolumeCollection TimeReceived Time BloodBLOOD SPECIMEN / UnknownVenipuncture / Jwnmzev5008/29/2025 12:44 PM EST 08/29/2025 12:44 PM EST Narrative Authorizing ProviderResult TypeResult StatusBarb Lerma APRN.CNPLABORATORYFinal ResultPerforming OrganizationAddressCity/State/ZIP CodePhone Number [facility] [address] [place] [address], * CORTISOL, SERUM (08/29/2025 12:44 PM EST)ComponentValueRef RangeTest Method Analysis TimePerformed AtPathologist SignatureCortisol4.84.8 - 19.5 ug/dL 08/30/2025 5:[address] [facility] LABComment: Provided reference range is from 6-10 AM sample collection time. Cortisol Reference Range: 6-10 AM = 4.8-19.5 ug/dL, 4-8 PM = 2.5-11.9 ug/dL Specimen (Source)Anatomical Location / LateralityCollection Method / Volume Collection TimeReceived TimeBloodBLOOD SPECIMEN / UnknownVenipuncture / Unknown 08/29/2025 12:44 PM EST08/29/2025 12:44 PM EST Narrative Authorizing ProviderResult TypeResult StatusBarb Lerma 3D MODELER.CNPLABORATORYFinal ResultPerforming OrganizationAddressCity/State/ZIP CodePhone Number [facility] [address] [place] [address], [place] * (ABNORMAL) COMPREHENSIVE METABOLIC PANEL (08/29/2025 12:44 PM EST) Only the most recent of2 resultswithin the time period is included. ComponentValueRef RangeTest MethodAnalysis TimePerformed AtPathologist Signature Protein, Total6.96.3 - 8.0 g/dL08/29/2025 1:08 PM ESTNORTHCTHREE RIVERS [facility] LABAlbumin4.23.9 - 4.9 g/dL08/29/2025 1:08 PM ESTNORTSAINT [facility]ADST [facility] LABCalcium, Total9.98.5 - 10.2 mg/dL08/29/2025 1:08 PM EST [facility] LABBilirubin, Total0.20.2 - 1.3 mg/dL 08/29/2025 1:08 PM [facility] LABAlkaline Phosphatase 9738 - 113 U/L110/29/2024 1:08 PM [facility] IBLUOE4228 - 40 U/L110/29/2024 1:08 PM [facility]RTFOR[facility] QPPKPD6602 - 54 U/L110/29/2024 1:08 PM [facility] UCPKhropxu452(H)74 - 99 mg/dL08/29/2025 1:08 PM [facility] LABComment: The [place] Diabetes Association (ADA) provides guidance for cutoff [...] Standards of Medical Care in Diabetes 2016, [place] Diabetes Association. Diabetes Care. 2016.39(Suppl 1). GGG685 - 24 mg/dL08/29/2025 1:08 PM [facility] Creatinine1.160.73 - 1.22 mg/dL08/29/2025 1:08 PM [facility] HCAGjuaqk202905 - 144 mmol/L110/29/2024 1:08 PM [facility] LABPotassium4.23.7 - 5.1 mmol/L110/29/2024 1:08 PM [facility] ABYCyfcivvz02066 - 107 mmol/L110/29/2024 1:08 PM EST [facility] QVHDT75513 - 30 mmol/L110/29/2024 1:08 PM EST [facility] LABAnion Gap98 - 15 mmol/L110/29/2024 1:08 PM [facility] LABEstimated Glomerular Filtration Rate73 >=60 mL/min/1.73m 08/29/2025 1:08 PM [facility] LABComment:Estimated Glomerular Filtration Rate (eGFR) is [...] VolumeCollection TimeReceived TimeBloodBLOOD SPECIMEN / UnknownVenipuncture / Fwcfglb5208/29/2025 12:44 PM EST08/29/2025 12:44 PM EST Narrative Authorizing ProviderResult TypeResult StatusJaimee Maria Guadalupe 3D MODELER.CNPLABORATORYFinal ResultPerforming OrganizationAddressCity/State/ZIP CodePhone Number [facility] [address] [place] [address] * (ABNORMAL) COMPLETE BLOOD COUNT AND DIFFERENTIAL (08/29/2025 12:44 PM EST) ComponentValueRef RangeTest MethodAnalysis TimePerformed AtPathologist SignatureWBC9.423.70 - 11.00 k/uL08/29/2025 12:47 PM [facility] LABRBC4.854.20 - 6.00 m/uL08/29/2025 12:47 PM [facility] QNSGusmrjhmia40.113.0 - 17.0 g/dL08/29/2025 12:47 PM [facility] CEUQbtbpxpjwk82.339.0 - 51.0 %08/29/2025 12:47 PM [facility] CMVWKV71.180.0 - 100.0 fL 08/29/2025 12:47 PM [facility] ODVPYR36.026.0 - 34.0 pg08/29/2025 12:47 PM [facility] BHDRWWA43.530.5 - 36.0 g/dL08/29/2025 12:47 PM [facility] LABRDW-CV 13.711.5 - 15.0 %08/29/2025 12:47 PM [facility] LAB Platelet Phnbs658251 - 400 k/uL08/29/2025 12:47 PM [facility] LABMPV8.0(L)9.0 - 12.7 fL08/29/2025 12:47 PM [facility] LABNeutrophils %61.6%08/29/2025 12:47 PM [facility] LABAbs Neut5.801.45 - 7.50 k/uL08/29/2025 12:47 PM [facility] LABLymphocytes %18.6%08/29/2025 12:47 PM [facility] LABAbs Lymph1.751.00 - 4.00 k/uL08/29/2025 12:47 PM [facility] LABMonocytes %8.4%08/29/2025 12:47 PM [facility] LABAbs Mono0.79<0.87 k/uL 08/29/2025 12:47 PM [facility] LABEosinophils %10.6% 08/29/2025 12:47 PM [facility] LABAbs Eosin1.00(H) <0.46 k/uL08/29/2025 12:47 PM [facility] Basophils %0.6%08/29/2025 12:47 PM [facility] LABAbs Baso0.06<0.11 k/uL08/29/2025 12:47 PM [facility] LABImmature Granulocytes %0.2%08/29/2025 12:47 PM [facility] LABAbs Immature Gran<0.03<0.10 k/uL08/29/2025 12:47 PM EST [facility] LABNRBC0.0/100 WBC08/29/2025 12:47 PM EST [facility] LABAbsolute nRBC<0.01<0.01 k/uL08/29/2025 12:47 PM [facility] LABDiff LkgeDciv45/21/2025 12:47 PM [facility] LABSpecimen (Source)Anatomical Location / LateralityCollection Method / VolumeCollection TimeReceived Time BloodBLOOD SPECIMEN / UnknownVenipuncture / Qsehffk1208/29/2025 12:44 PM EST 08/29/2025 12:44 PM EST Narrative Authorizing ProviderResult TypeResult StatusJaimee Maria Guadalupe 3D MODELER.CNPLABORATORYFinal ResultPerforming OrganizationAddressCity/State/ZIP CodePhone Number [facility] [address] [place] [address] * (ABNORMAL) PSA/PROSTSPECAG DIAG (12/07/2022 10:07 AM EST)ComponentValueRef RangeTest MethodAnalysis TimePerformed AtPathologist SignaturePSA3.16(H)<2.60 ng/mL12/08/2022 6:[address] [facility] LABComment: Total PSA test methodology used is the Electrochemiluminescence Immunoassay by [employer]. Total PSA values by differing methodologies [...] Kvng Rivas M.D., Nicky Jonas, M.P.H., Fior López, ScNuria. ??Effect of Verification Bias on Screening for Prostate Cancer by Measurement of Prostatic Specific Antigen. N Engl J Med 2003,349:335-42. Specimen (Source)Anatomical Location / LateralityCollection Method / Volume Collection TimeReceived TimeBloodBLOOD SPECIMEN / UnknownVenipuncture / Unknown 12/07/2022 10:07 AM EST12/07/2022 10:07 AM EST Narrative Authorizing ProviderResult TypeResult StatusFeliciano Borjas MDLABORATORYFinal ResultPerforming OrganizationAddressCity/State/ZIP CodePhone Number [facility] [address] [address], from Last 3 Months or Most Recently Relevant to Health Maintenance Insurance * Guarantor: Elzbieta Sow TypeRelation to PatientDate of BirthPhoneBilling AddressSelf AgmBxst08 1965 [address] [place] [address] Care Teams Team MemberRelationshipSpecialtyStart DateEnd Julian Mcgraw MD PCP - GeneralFamily Medicine10/26/[address] [facility] [place] [place] [address] Registered DietitianNutrition11/04/22 Chiqui Modi, RN [address] [facility] [place] [place] [address] Specialty Care CoordinatorHematology/Oncology11/15/22 Vanesa Hahn, PA-C [address] [place] [address] [place] [address] Physician AssistantHematology/Oncology11/15/22 July Wiley, WEB OPERATIONS SPECIALIST Social Worker11/21/22 Lucas Caicedo MD [address] [facility] [place] [address] PhysicianHematology/Oncology06/24/24
--- OUTSIDE RECORDS SUMMARY | 2025-09-02 16:03 | XMS_ITS | Encounter Summary ---
Author Organization [facility] Address [address] [place], [place] [address] Care Team Providers Care Model Maker Scale Name Role Phone Julian Mcgraw MD Primary Care Provider + Yadi Rosenthal RD Unavailable [phone] Chiqui Modi RN Unavailable [phone] Vanesa Hahn PA-C Unavailable [phone] July Wiley Unavailable Unavailable Lucas Caicedo MD Unavailable [phone] Source Comments In the event this information is protected by the Federal Confidentiality of Alcohol and Drug AbusePatient Records regulations: The Federal rules restrict any use of the information to criminally investigate or prosecute any alcohol or drug abuse patient.[facility] Encounter Details DateTypeDepartmentCare Team (Latest Contact Info)Xogjqijdcgx99/24/2025Telephone Hematology/Oncology [address] [place] [address] [place] [address] Yordan Retana MD [address] [place] [address] [place] [address] Social History Tobacco UseTypesPacks/DayYears UsedDateSmoking Tobacco: VxclovPedxgkcajc155 10/13/1987 - 10/13/2022assive Smoke Exposure: PastSmokeless Tobacco: Former Alcohol UseStandard Drinks/WeekCommentsYes0 (1 standard drink = 0.6 oz pure alcohol)occPHQ-2AnswerDate RecordedPHQ-2 ndmyk0434Area Deprivation Index AnswerDate RecordedNational Score (1-100), lower number is lower risk63 03/02/2023State Score (1-10), lower number is lower rjov6233Data from: https://www.neighborhoodatlas.[facility]/. Last address used for [address] [place] [address]/02/2023Sex and Gender InformationValueDate RecordedSex Assigned at HvrrkThyv97/18/2023 3:51 PM ESTLegal CrsSbvj59/02/2012 8:04 AM EST Gender VspkygtwVaqw71/18/2023 3:51 PM ESTSexual UzjljmkiwdvWwctpvxm51/18/2023 3:51 PM ESTTravel HistoryTravel StartTravel RjtLghvhj10 documented as of this encounter Miscellaneous Notes * Telephone Encounter - Ellyn Mullins - 09/01/2025 2:40 PM EST Patient has been scheduled with Dr. Ruff tomorrow - Patient's , Ximena notified. Thanks! Ellyn Mullins * Telephone Encounter - Gabriella Cox - 09/01/2025 1:20 PM EST Records scanned. Requested images be pushed over. * Telephone Encounter - Ellyn Mullins - 09/01/2025 11:54 AM EST Per Alli Modi, patient needs to be seen tomorrow by Dr. RUFF. I told Ximena, patient's spouse, I will call her back with a time tomorrow - Dr RUFF has a full schedule and I will work on getting patient seen. Ellyn Mullins * Telephone Encounter - Chiqui Modi RN - 09/01/2025 11:51 AM EST [place]: can you get records please. called now stating she needs to get pt scheduled with Dr Ruff as soon as possible to come up with a new plan of care since he now has brain mets. ER physician will be prescribing anti seizure medication for pt before discharge today. Thanks Chiqui Modi RN * Telephone Encounter - Yordan Retana MD - 09/01/2025 11:20 AM EST Went to ER with seizures and brain met. Please schedule f/u with or CORNELIO this week in clinic. 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) [C01]; 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]10/10/2025 10:45 AM ESTInfusion Center Hematology/Oncology [address] [place] [address] [place] [address] chemotx Kagepxuy87/13/2026 1:15 PM ESTOffice Visit [facility] [address] [place] [address] [place] [address] 12 week follow up lab chemotx Jrotgcqg13/13/2026 1:30 PM ESTVisit (SP) Office Hematology/Oncology [address] [place] [address] Whitney Beckwith APRN.[facility] [address] [place] [address] 12 week follow up lab chemotx Osjcggjk75/13/2026 2:00 PM ESTInfusion Center Hematology/Oncology [address] [place] [address] [place] [address] 12 week follow up lab chemotx Keytrudadocumented as of this encounter Visit Diagnoses Not on filedocumented in this encounter Care Teams Team MemberRelationshipSpecialtyStart DateEnd Julian Mcgraw MD PCP - GeneralFamily Medicine10/26/[address] [place] [address] [place] [address] Registered DietitianNutrition11/04/22 Chiqui Modi, RN [address] [place] [address] [place] [address] Specialty Care CoordinatorHematology/Oncology11/15/22 Vanesa Hahn, PA-C [address] [place] [address] [place] [address] Physician AssistantHematology/Oncology11/15/22 July Wiley LSW Social Worker11/21/22 Lucas Caicedo MD [address] [place] [address] [place] [address] PhysicianHematology/Oncology06/24/24documented as of this encounter
--- OUTSIDE RECORDS SUMMARY | 2025-09-02 16:03 | XMS_ITS | Patient Health Record ---
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 According to the [employer], Serum PSA should decrease and [...] the presence or absence of malignant disease. PSA, Free 0.84 N/A ng/mL Arnaud ECLIA met hodology. % Free PSA 17.9 . % The table below lists the probability of prostate cancer for men with non-suspicious CHRISTIANNE results and total PSA between 4 and 10 ng/mL, by patient age (Saundra et al, KIT 1998, 279:1542). % Free PSA 50-64 yr 65-75 yr 0.00-10.00% 56% 55% 10.01-15.00% 24% 35% 15.01-20.00% 17% 23% 20.01-25.00% 10% 20% >25.00% 5% 9% Please note: Catalona et al did not make specific recommendations regarding the use of percent free PSA for any other population of men. Performed at: - [facility] [address] [id number] Produce Assistant: Octaviano Dalal PhD, Phone: [phone] Performing Lab: see note - [facility] LBCBC AUTO DIFF Reviewed date:09/01/2025 06:34:29 PM Interpretation: Performing Lab: Notes/Report: [facility] ,White Blood Count7.34.0-11.0 10 3/uLRed Blood Count4.854.70-6.10 10 6/uL Ssyhaldgmg95.214.0-18.0 g/vYEhsmrryqtq14.242.0-54.0 %Mean Corpuscular Fmmter45.9 80.0-94.0 fLMean Corpuscular Fjqiteegqa32.225.9-34.0 pgMean Corpuscular HGB Conc 32.829.9-35.2 g/dLRed Cell Distribution Width13.411.0-15.0 %Platelet Myopu562 150-450 10 3/uLMean Platelet Volume8.49.5-13.5 fLNeutrophils Percent Auto67.4 43.0-75.0 %Lymphocytes Percent Auto17.420.5-60.0 %Monocytes Percent Auto6.71.7- 12.0 %Eosinophils Percent Auto7.50.9-7.0 %Basophils Percent Auto0.70.2-2.0 % Immature Granulocytes Pct Auto0.30.0-0.5 %Neutrophils Absolute Auto4.91.4-6.5 10 3/uLLymphocytes Absolute Auto1.31.2-3.8 10 3/uLMonocytes Absolute Auto0.50.3-0.8 10 3/uLEosinophils Absolute Auto0.60.0-0.7 10 3/uLBasophils Absolute Auto0.10.0- 0.1 10 3/uLImmature Granulocytes Abs Auto0.020.00-0.03 10 3/uLPerforming Lab:see noteML - [facility] LBDRUG SCREEN RAPID (URINE) Reviewed date:09/01/2025 06:34:29 PM Interpretation: Performing Lab: Notes/Report: [facility] ,Cannabinoid Screen UrineNEGATIVENEGATIVEPhencyclidine Screen UrineNEGATIVE NEGATIVECocaine Screen UrineNEGATIVENEGATIVEMethamphetamines Screen Urine NEGATIVENEGATIVEOpiate Screen UrineNEGATIVENEGATIVEAmphetamine Screen Urine NEGATIVENEGATIVEBenzodiazepines Screen UrineNEGATIVENEGATIVETricyclic Antidepressant UrineNEGATIVENEGATIVEMethadone Screen UrineNEGATIVENEGATIVE Barbiturates Screen UrineNEGATIVENEGATIVEOxycodone Screen UrineNEGATIVENEGATIVE Buprenorphine Screen UrineNEGATIVENEGATIVE DRUG CLASS TEST SYSTEM CUT-OFF CONCENTRATIONS ARE FOLLOWS: AMP (Amphetamine): 500 ng/mL BAR (Barbiturates): 200 ng/mL BZO (Benzodiazepines): 150 ng/mL BUP (Buprenorphine): 10 ng/mL BIRAN (Cocaine): 150 ng/mL mAMP (Methamphetamine): 500 ng/mL MTD (Methadone): 200 ng/mL OPI (Opiates): 100 ng/mL OXY (Oxycodone): 100 ng/mL PCP (Phencyclidine): 25 ng/mL THC (Cannabinoids): 50 ng/mL TCA (Trycyclic Antidepressants): 300 ng/mL Performing Lab:see note - [facility] LBPROF CHEM 8 (BAS METB) Reviewed date:09/01/2025 06:34:29 PM Interpretation: Performing Lab: Notes/Report: [facility] ,Rplcfo605977-632 mmol/LPotassium3.63.5-5.1 mmol/JEncdxzfu06470-646 mmol/LCarbon Ypdlmeg84.621.0-32.0 mmol/LAnion Gap12.1Mryetod32019-492 mg/dLBlood Urea Famonfoq99.07.0-18.0 mg/dLCreatinine1.360.70-1.30 mg/dLEstimated GFR ( Liat>60>=60 mL/min/1.73m 2Estimated GFR (Non- Ame54>=60 mL/min/1.73m 2 BUN Creatinine Ratio11.5Vzoqcvr4.28.5-10.1 mg/dLPerforming Lab:see note - [facility] LBUA RANDOM W or MICROSCOPIC Reviewed date:09/01/2025 06:34:29 PM Interpretation: Performing Lab: Notes/Report: [facility] ,Color UrineLT. YELLOWYELLOWClarity UrineCLEARCLEARSpecific Argenta Urine1.020 1.005-1.025pH Urine7.05.0-9.0Protein Klpfx605TTX/TRACE mg/dLGlucose Urine UA NEGATIVENEGATIVE mg/dLBilirubin UrineNEGATIVENEGATIVEKetones UrineTRACENEGATIVE mg/dLBlood UrineTRACE-INEGATIVENitrite UrineNEGATIVENEGATIVEUrobilinogen Urine 0.20.2-1.0 EU/dLLeukocyte Esterase UrineNEGATIVENEGATIVEWBC UrineNONE SEENNONE SEEN #/HPFRBC Urine0-20-2 #/HPFBacteria UrineTRACENONE SEEN #/HPFMucus UrineNONE SEENNONE SEENSquamous Epithelial Cell UrineNONE SEENNONE/RARE #/LPFCrystals Seen?None SeenNone Seen #/HPFCast Seen?NONE SEENNONE SEEN #/LPFUrine Culture IndicatedNOPerforming Lab:see noteML - [facility] LBECG 12 lead Reviewed date:09/01/2025 08:00:04 PM Interpretation: Performing Lab: Notes/Report: Source Facility: [place] [address] Electrocardiograph Report Signed Patient: CAITLIN SOW MR#: [id number] : 1965 Acct:[id number] Age/Sex: 60 / M ADM Date: 09/01/25 Loc: ER Attending Dr: Ordering Physician: Yodit Silveira M.D. 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 Measurements Intervals [place] Rate: 91 P: 47 CO: 156 QRS: 29 QRSD: 84 T: 90 QT: 358 QTc: 407 Interpretive Statements 1100 Sinus rhythm 3113 Cannot rule out anterior myocardial infarction, probably old 9150 abnormal ECG Compared to ECG 06/19/2023 10:52:12 Myocardial infarct finding now present Sinus bradycardia no longer present T-wave abnormality no longer present Electronically Signed On 09-01-2025 19:35:53 EST by BARRY GAYTAN M.D. 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 Date of Service: 09/01/25 Procedure(s): CT head/brain wo con Accession Number(s): [id number] cc: Julian Mcgraw M.D. [facility] [place] [address] Patient Name: CAITLIN SOW MRN: [id number] date: 1965 Sex: M Assigned Patient Location: ER Current Patient Location: ER Accession/Order Number: [id number] Exam Date: 09/01/2025 10:13 Report Date: 09/01/2025 10:46 At the request of: YODIT SILVEIRA MD Procedure: CT head/brain wo con CT BRAIN WITHOUT CONTRAST: CLINICAL HISTORY: Possible seizure, remote history of head and neck cancer COMPARISON: None TECHNIQUE: Contiguous axial unenhanced images were obtained through the brain. This CT exam was performed using one or more following dose reduction techniques: Automated exposure control, adjustment of the mA and/or kV according to patient size, or use of iterative reconstruction technique. FINDINGS: There is mild cortical atrophy. The ventricles are normal in size and position. Vasogenic edema is seen in the right posterior frontal lobe where an underlying mass is suspected. There is no suspected large vessel infarct. There is no hemorrhage, mass effect or extra-axial collections. There are borderline low-lying cerebellar tonsils. There is a small amount of fluid within the right maxillary sinus and mucosal thickening involving some of the left ethmoid air cells. 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 There is mastoidectomy on the right and a few opacified mastoid air cells on the left. CT/CT head/brain wo con IMPRESSION: SUSPECTED MASS WITH ASSOCIATED VASOGENIC EDEMA IN THE RIGHT FRONTAL LOBE. THIS MAY BE METASTATIC DISEASE GIVEN THE HISTORY OF PREVIOUS HEAD AND NECK CANCER WELL A RIGHT PERIHILAR MASS ON TODAY'S CHEST X-RAY. MRI FOLLOW-UP COULD BE OBTAINED FOR COMPLETE EVALUATION. Impression dictated by: Fior Gómez M.D. 09/01/2025 10:46 AM Dictation Location: [place] [address] Electronically authenticated by: [id number] Y Date: 09/01/2025 10:46 Dictated By: Fior Gómez M.D. 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 Date of Service: 09/01/25 Procedure(s): XR chest 1V Accession Number(s): [id number] cc: Julian Mcgraw M.D.; Yodit Silveira M.D. [place] [address] Patient Name: CAITLIN SOW MRN: [id number] date: 1965 Sex: M Assigned Patient Location: ER Current Patient Location: ER Accession/Order Number: [id number] Exam Date: 09/01/2025 10:10 Report Date: 09/01/2025 10:36 At the request of: YODIT SILVEIRA MD Procedure: XR chest 1V PORTABLE AP ERECT CHEST 0955 hours CLINICAL HISTORY: Possible seizure COMPARISON: None The heart is within normal limits. There is no vascular congestion. There is a rounded masslike opacity in the right perihilar region measuring almost 6 cm in size. There is some extension toward the pleural surface laterally. Although infectious and inflammatory processes are possible, neoplasm is also in the differential. There is also question of a 7 - 8 mm nodule at the right upper lobe. The left lung is clear. There is no sizable effusion or pneumothorax. The osseous structures are intact. Mild endplate spurring is present. XR/XR chest 1V IMPRESSION: MASSLIKE OPACITY AND POTENTIAL SMALLER NODULAR ASYMMETRY ON THE RIGHT. NEOPLASM IS NOT EXCLUDED AND FOLLOW-UP WITH CT IS THEREFORE SUGGESTED. Impression dictated by: Fior Gómez M.D. 09/01/2025 10:36 AM Dictation Location: [place] [address] Electronically authenticated by: [id number] Y Date: 09/01/2025 10:36 Dictated By: Fior Gómez M.D. 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: Reason For Referral No Information Medications Medication SIG (Take, Route, Frequency, Duration) Notes Start Date End Date Status Tadalafil ActiveamLODIPine Besylate 10 MGTAKE 1 TABLET BY MOUTH EVERY DAY; Duration: 90 daysActiveAzithromycin 250 MG2 tabs today then 1 tab Orally daily; Duration: 5 days5ActivePravastatin Sodium 20 MGTAKE 1 TABLET BY MOUTH EVERY DAY; Duration: 90ActiveProchlorperazine Maleate 10 MG1 tablet Orally every 6 hrsPRN ActiveTamsulosin HCl 0.4 MG1 capsule Orally Once a dayActiveOndansetron 8 MG1 tablet on the tongue and allow to dissolve as needed Orally every 8 hrs for nausea and voitingPRNActiveBenzonatate 200 MG1 capsule Orally Three times a day; Duration: 7 days5ActiveLisinopril 40 MGTAKE 1 TABLET BY MOUTH EVERY DAY; Duration: 90 daysActiveIbuprofen 200 MG1 tablet with food or milk as needed Orally every 6 hrs s neededPRNActiveLevothyroxine Sodium 88 MCG1 tablet in the morning on an empty stomach Orally Once a day; Duration: 90 daysActive Social History Tobacco Use: Social History Observation Description Date Details (start date - stop date) Former Smoker 05/09/1978 - 05/18/2022 Tobacco Control (Standard) Question Answer Notes Tobacco use: Former smoker When did you start smoking?05/09/1978When did you stop smoking?05/18/2022UDIT-C (Standard) Question Answer Notes Did you have a drink containing alcohol in the p ast year? 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)ActiveconfirmedProblemHyperlipidaemia (56875541) Hyperlipidemia, unspecified hyperlipidemia type (E78.5)ActiveconfirmedProblem Metastatic malignant neoplasm (disorder) (753044955)Metastatic disease (C80.1) ActiveconfirmedProblemEssential hypertension (50278981)Hypertension, unspecified type (I10)Activeconfirmed Vital Signs Temperature 102.9 degrees Fahrenheit 01/02/2025 Blood pressure xjpiqenym49 mm Hg01/02/20258383Rsuruk63 in01/02/2025lood pressure iwftseag272 mm Hg01/02/20251175Nqbzra466.6 lbs01/02/2025BMI29.51 kg/m201/02/2025 Encounters Encounter Location Date Provider Diagnosis [facility] [address] [place] [address] 01/02/2025 Adolfo Hoy Acute bronchitis, unspecified organism J20.9 [facility] [address] [place] [facility] [place] [address] 11/18/2024 Adolfo Hoy [facility] [place] [place] [address] 01/08/2025Doug [facility]oyAcute bronchitis, unspecified organism [facility] [place] [place] [address]/14/2025Doug Hoy [facility] [place] [facility] [place] [address] 08/07/2025Doug HoyWellness examination Z00.00 ; Screening for prostate cancer Z12.5 and Screening for colon cancer [facility]12.[facility] [place] [address]/Doug Hoy Assessments Encounter Date Diagnosis (ICD Code) Assessment Notes Treatment Notes Treatment Clinical Notes Section Notes 01/02/2025 Acute bronchitis, unspecified or ganism (ICD-10 - J20.9) Rest and drink more liquids, especially water. You may use a humidifier or vaporizer to help keep the drainage moist. Kbhq-zjk-ngnobov Nasal Saline may help the stuffy and runny nose. Use Ibuprofen and or Tylenol as needed for fever, chills, body aches or pain. Children 5 years old should not be given hvcp-lkj-exkgmns cough and cold medications such as guaifenesin and dextromethorphan. If you're over age 5, you may try lriw-tgg-bpwdpng cold medications such as guaifenesin and dextromethorphan, or multi-symptom cold reliever such as Dayquil to help reduce the symptoms. Antibiotics have been pre scribed. You should take these until completed and follow the directions. Antibiotics can sometimescause upset stomach, and in rare cases, serious allergic reactions or serious gastrointestinal problems. If you start having severe abdominal pain, severe vomiting, or bloody diarrhea, you should be r eevaluated by your physician or urgent care immediately. Follow up with your Primary Care Provider or return to clinic if symptoms do not improve within 3-5 days. If you develop severe symptoms such as shortness of breath, repeated vomiting, coughing up blood, or chest pain you should go to the emergency room or call [phone]/5Acute bronchitis, unspecified organism (ICD-10 - J20.9) 08/07/2025Wellness examination (ICD-10 - Z00.00)08/07/2025Screening for prostate cancer (ICD-10 - Z12.5)08/07/2025Screening for colon cancer (ICD-10 - Z12.11) Plan Of Treatment Pending Test Test Name Order Date PSA, PROSTATE-SPECIFIC ANTIGEN CBC 08/07/2025 FECAL OCCULT BLOOD 08/07/2025 CMP - Comprehensive Metabolic Panel 07/11 GLYCOHEMOGLOBIN A1C 05/24/2024 GLYCOHEMOGLOBIN A1C 08/07/2025 LIPID PROFILE 05/24/2024 LIPID PROFILE 08/07/2025 THYROID PANEL (T4/TSH/FREE T3) PSA, SCREENING 08/07/2025 PSA, SCREENING 05/24/2024 Next Appt Details Provider Name:Adolfo Josey Mcgraw, 02:15:00 PM, [address] [place], [address], Insurance Providers Payer Name Payer Address Payer Phone Subscriber Number Group Number Insured Name Patient Relationship to Insured Coverage Start Date Coverage End Date MMO [address] [facility], [place] [id number] Jenn Sow - patient is the insured Medical (General) History Medical History History ICD Code Lymphadenopathy 785.6 Metastatic Lymphadenopathy HPV positive BOT SCCSurgical History Surgery Date(Month/Year) Colonoscopy MastoidectomyTonsillectomymultiple biopsies
--- NOTE | 2025-09-02 16:14 | MR_ITS ---
[facility] [place] [id number] Patient Name: CAITLIN ELMORE MRN: [id number] date: 1965 Sex: M Assigned Patient Location: MRI Current Patient Location: MRI Accession/Order Number: [id number] Exam Date: 09/02/2025 16:45 Report Date: 09/02/2025 17:52 At the request of: LAKIA MEDINA Procedure: MR head/brain wo/w con MRI BRAIN WITHOUT AND WITH INTRAVENOUS CONTRAST CLINICAL DATA: Metastases to brain COMPARISON: CT head 09/01/2025 No restricted diffusion to suggest acute territorial infarct. Ventricles and sulci normal size and comparison for the patient's age. Within the right posterior frontal lobe, there is abnormal vasogenic edema identified. There is a rim-enhancing mass noted 2.4 x 2.8 in size, this is favored be intraparenchymal as on the T2 images. Evidence of intrinsic intermediate T2 signal identified within this region.. No additional evidence of abnormal metastatic disease elsewhere. . Major intracranial intravascular flow voids are preserved.. Grvn-ld-puyamoyz paranasal sinus mucosal thickening. MR/MR head/brain wo/w con IMPRESSION: Right posterior frontal intraparenchymal mass 2.8 x 2.4 cm in size with rim enhancement and vasogenic edema suspicious for solitary metastases. No additional metastases identified elsewhere. Impression dictated by: Stanley Archer M.D. 09/02/2025 5:52 PM Dictation Location: [place] [address] Electronically authenticated by: [id number] Y Date: 09/02/2025 17:52
--- NOTE | 2025-09-02 16:16 | XR_ITS ---
[address] [address] Patient Name: CAITLIN ELMORE MRN: [id number] date: 1965 Sex: M Assigned Patient Location: MRI Current Patient Location: MRI Accession/Order Number: [id number] Exam Date: 09/02/2025 16:20 Report Date: 09/02/2025 16:36 At the request of: LAKIA MEDINA Procedure: XR foreign body eye NAA Orbits one view. Reason for exam: Pre-MRI. FINDINGS: No radiopaque foreign body or acute bony process. XR/XR foreign body eye NAA IMPRESSION: No radiopaque foreign body. Impression dictated by: Ras Goddard Jr., DVonOVon 09/02/2025 4:36 PM Dictation Location: [place] [address] Electronically authenticated by: [id number] Y Date: 09/02/2025 16:36
--- OUTSIDE RECORDS SUMMARY | 2025-09-02 16:20 | XMS_ITS | CCD ---
Author Organization [facility] Care Team Providers Care Union Laborer Name Role Phone Julian Burton Primary Care Physician Josephine KELLEY, Julian Dowling Primary Care Provider [phone] Demi CHEN, Yadi Unavailable Rian ROUSSEAU, Chiqui Oneill Unavailable [phone] [place]io KELLEY, Elizabeth Unavailable Selma VICK, Tremaine Dowling Unavailable Saurabh RIVAS, July Unavailable Unavailable HOY ., DR ALFONSO Attending Unavailable HOY ., DR ALFONSO Admitting Unavailable HOY ., DR ALFONSO Primary Care Unavailable HOY ., DR ALFONSO Consulting Unavailable WEST, DR FRANCINE Moran Consulting Unavailable HOY ., DR ALFONSO Consulting Unavailable HOY ., DR ALFONSO Attending Unavailable HOY ., DR ALFONSO Admkenneth Unavailable HOY ., DR ALFONSO Primary Care Unavailable MARCO ANTONIO Longoria, DR NICOLA Tran Attending Unavaila ble ZARAGOZA JR Longoria, DR NICOLA Tran Admitting Unavaila ble ZARAGOZA ., DR NICOLA Tran Consulting Unavaila ble HOEdgar ., DR ALFONSO Primary Care Unavailable TIMMIS, DR KENDALL Admitting Unavailable TIMMIS, DR KENDALL Consulting Unavailable TIMMIS, DR KENDALL Attending Unavailable HOY ., DR ALFONSO Primary Care Unavailable ZIEBER, DR JULIO Gay Consulting Unavailable HOY ., [...] Julian Burton MD Primary Care Provider [phone] Galo CHEN, Yadi Unavailable MD Lee Ivy Attending Provider MD Julian Burton Primary Care Provider [phone] Galo CHEN, Yadi Unavailable Rian ROUSSEAU, Chiqui Oneill Unavailable Julian Burton MD Primary Care Provider [phone] Julian Burton MD Primary Care Provider [phone] MD Julian Burton Primary Care Provider [phone] NICANOR Gomez Attending Provider [phone] Tremaine Gomez Admitting Unavailable Tremaine Gomez Attending Unavailable Josephine, Julian M Primary Care Unavailable Lee Ivy Admitting Unavailable Lee Ivy Attending Unavailable Hoy, Julian M Primary Care Unavailable JOSEPHINE, JULIAN M Primary Care Unavailable KAROLINA CATALAN Attending Unavailable RAS STARR Admitting Unavailable RAS STARR Attending Unavailable JOSEPHINE, JULIAN M Primary Care Unavailable Elizabeth Borjas MD Unavailable [phone] Lakia Medina MD Unavailable [phone] Julian Burton MD Primary Care Provider [phone] Norma Craig Attending Unavailable Julian Burton MD Primary Care Provider [phone] TIMMIS, ENOCH H Attending Unavailable TIMMIS, ENOCH H Attending Unavailable TIMMIS, ENOCH H Attending Unavailable TIMMIS, ENOCH H Attending Unavailable TIMMIS, ENOCH H Attending Unavailable TIMMIS, ENOCH H Attending Unavailable JOSEPHINE, JULIAN M Primary Care Unavailable ELIZABETH BORJAS Referring Unavailable JOSEPHINE, JULIAN M Primary Care Unavailable LAKIA MEDINA Referring Unavailable TAYLA ELLSWORTH Referring Unavailable HOY, JULIAN M Primary Care Unavailable HOY, JULIAN M Primary Care Unavailable VIDETIC, TAYLA M Attending Unavailable VIDETIC, TAYLA M Referring Unavailable HOY, JULIAN M Primary Care Unavailable ABHYANKAR, LAKIA Attending Unavailable KARAMLOU, ELIZABETH Referring Unavailable HOY, JULIAN M Primary Care Unavailable KARAMLOU, ELIZABETH Referring Unavailable HOY, JULIAN M Primary Care Unavailable VIDETIC, TAYLA M Attending Unavailable VIDETIC, TAYLA M Referring Unavailable HOY, JULIAN M Primary Care Unavailable HOY, JULIAN M Primary Care Unavailable VIDETIC, TAYLA M Attending Unavailable HOY, JULIAN M Primary Care Unavailable ABHYANKAR, LAKIA Referring Unavailable ABHYANKAR, LAKIA Attending Unavailable HOY, JULIAN M Primary Care Unavailable KARAMLOU, ELIZABETH Referring Unavailable HOY, JULIAN M Primary Care Unavailable KARAMLOU, ELIZABETH Referring Unavailable CHUCK JONES Attending Belen savage HOY, JULIAN M Primary Care Unavailable HOY, [...] Unavailable KARAMLOU, ELIZABETH Referring Unavailable ABHYANKAR, LAKIA Referring Unavailable HOY, JULIAN M Primary Care Unavailable CHUCK JONES Attending Belen savage HOY, JULIAN M Primary Care Unavailable HOY, JULIAN M Primary Care Unavailable ABHYANKAR, LAKIA Attending Unavailable KARAMLOU, ELIZABETH Referring Unavailable HOY, JULIAN M Primary Care Unavailable VICKY MAGUIRE Attending Unavailable KARAMLOU, ELIZABETH Referring Unavailable HOY, JULIAN M Primary Care Unavailable KARAMLOU, ELIZABETH Referring Unavailable ABHYANKAR, LAKIA Referring Unavailable HOY, JULIAN M Primary Care Unavailable Allergies Allergy ClassificationReported Allergen(s)Allergy TypeDate of OnsetReaction(s) Facility (1 source)No Known Medication Allergies; Translations: [No Known Medication Allergies]Propensity to adverse reactions (disorder)[facility] Repository Medications Current Medications MedicationDrug Class(es)DatesSig (Normalized)Sig (Original)amLODIPine 10 mg oral tablet (20 sources)Dihydropyridine Calcium Channel BlockerStart: 11-59-3382jnqw 1 mg by mouth once dailyamLODIPine 10 mg Tab mg tab(s), Oral, Daily Start Date: 03/17/23 Status: Ordered Repeat number: 1Start: 11-04-2022 End: 83-25-0165bfwq 2 tablets by mouth once dailyamLODIPine (NORVASC) 5 mg tablet Take 10 mg by mouth once daily. 0 11/04/2022 12/21/2022 Discontinued Comment on above:Take 10 mg by mouth once daily.ciprofloxacin 3 mg/ml / dexamethasone 1 mg/ml otic suspension (2 sources)Corticosteroid, Quinolone AntimicrobialStart: 07-12-2024 End: 19-14-6986czbkxyjkaxqei-dexAMETHasone (CiproDEX) otic suspension Indications: Chronic myringitis of right earAdminister 4 drops into affected ear(s) in the morning and 4 drops before bedtime. Do all this for 7 days. 7.5 mL 07/12/2024 07/19/2024 Activeenteric contrast (will be provided with radiology test) (5 sources)Start: 10-31-2024 End: 29-95-2873opurqmu contrast (will be provided with radiology test) For CT Chest Abdomen W IVCON order Administer, As Directed One Time Only, via Oral, Rectal, both Oral and Rectal, Enteric Tube, Stoma or Indwelling Catheter, Enteric Contrast as designated per enteric contrast guidelines 1 Each 10/31/2024 11/01/2024 ActiveStart: 03-26-2024 End: 23-35-6624qdsryol contrast (will be provided with radiology test) For CT CHESTABD/PEL W IVCON Routine order Administer, As Directed One Time Only, via Oral, Rectal, both Oral and Rectal, Enteric Tube, Stoma orIndwelling Catheter, Enteric Contrast as designated per enteric contrast guidelines 1 Each 0 03/26/2 024 03/27/2024 Activefamotidine 20 mg oral tablet (20 sources)Histamine-2 Receptor AntagonistStart: 14-68-6802gxws 1 tablet by mouth in the morningfamotidine (Pepcid) 20 MG tablet Take 20 mg by mouth in the morning and 20 mg before bedtime. 04/17/2025 ActiveStart: 01-10-2025 End: 81-56-9766aint 1 tablet by mouth twice dailyfamotidine (PEPCID) 20 mg tablet Indications: Gastroesophageal reflux disease, unspecified whether e sophagitis present TAKE 1 TABLET BY MOUTH TWICE A DAY 180 tablet 1 01/19/2025 Activeibuprofen 200 mg oral tablet (20 sources)Nonsteroidal Anti-inflammatory Drugibuprofen 200 MG tablet Take by mouth ActiveComment on above:Take 200 mg by mouth every 6 hours as needed.iv contrast (will be provided with radiology test) (11 sources)Start: 02-20-2025 End: 31-24-4496db contrast (will be provided with radiology test) CT Chest W - Inject, intravenously, once for 1 dose.No IV access, insert saline lock prior to the beginning of sedation, infusion, injection of imaging exam. Discontinue saline lock post exam. If Pt. has a central line or IVAD, may access for adminis tration according to line specific nursing protocol. Once exam is complete flush line and de-accessaccording to line specific nursing protocol in the CT contrast administration guidelines link. 1 each 02/20/2025 02/21/2025 ActiveStart: 10-31-2024 End: 61-84-5848vc contrast (will be provided with radiology test) CT Chest Abdomen-Inject, intravenously, once for1 dose.No IV access, insert saline lock prior to the beginning of sedation, infusion, injection of imaging exam. Discontinue saline lock post exam. If Pt. has a central line or IVAD, may access for administration according to line specific nursing protocol. Once exam is complete flush line and de-access according to line specific nursing protocol in the CT contrast administration guidelines link.1 Each 10/31/2024 11/01/2024 ActiveStart: 03-26-2024 End: 47-46-6556iymmxv 1 dose intravenously onceiv contrast (will be provided with radiology test) [...] guidelines link 1 Each 0 03/26/2024 03/27/2024 ActiveStart: 03-26-2024 End: 67-86-5889hb contrast (will be provided with radiology test) CT Chest ABD/PEL-Inject, intravenously, once for1 dose.No IV access, insert saline lock prior to the beginning of sedation, infusion, injection of imaging exam. Discontinue saline lock post exam. If Pt. has a central line or IVAD, may access for administration according to line specific nursing protocol. Once exam is complete flush line and de-access according to line specific nursing protocol in the CT contrast administration guidelines link.1 Each 0 03/26/2024 03/27/2024 ActiveStart: 11-14-2023 End: 17-62-3596wg contrast (will be provided with radiology test) CT Chest W - Inject, intravenously, once for 1 dose.No IV access, insert saline lock prior to the beginning of sedation, infusion, injection of imaging exam. Discontinue saline lock post exam. If Pt. has a central line or IVAD, may access for adminis tration according to line specific nursing protocol. Once exam is complete flush line and de-accessaccording to line specific nursing protocol in the CT contrast administration guidelines link. 1 Each 0 11/14/2023 11/15/2023 ActiveStart: 04-18-2023 End: 38-55-7885qa contrast (will be provided with radiology test) MRI Prostate Inject, intravenously, once for 1 dose. No IV access, insert saline lock prior to the beginning of sedation, infusion, injection of imaging exam. Discontinue saline lock post exam. If Pt. has a central line or IVAD, may access for admin istration according to line specific nursing protocol. Once exam is complete flush line and de-access according to line specific nursing protocol in the MR contrast administration guidelines link. 1 Each 0 04/18/2023 04/19/2023 Comment on above:MRI Prostate Inject, intravenously, once for 1 dose. [...] protocol in the MR contrast administration guidelines link.CT Chest W -Inject, intravenously, once for 1 dose.No IV access, insert saline lock prior to the beginning of sedation, infusion, injection of imaging exam. Discontinue saline lock post exam. If Pt. has a central line or IVAD, may access for administration according to line specific nursing protocol. Once exam is complete flush line and de-access according to line specific nursing protocol in theCT contrast administration guidelines link.levothyroxine sodium 0.1 mg oral tablet (20 sources)l-ThyroxineStart: 01-10-2025 End: 71-54-5667panb 1 tablet by mouth once dailylevothyroxine (SYNTHROID) 100 mcg tablet Indications: Acquired hypothyroidism Take 1 tablet by mouth once daily. 90 tablet 3 05/28/2025 ActiveStart: 08-09-2024 End: 21-15-8475lpan 1 tablet by mouth once dailylevothyroxine (SYNTHROID) 88 mcg tablet Indications: Acquired hypothyroidism Take 1 tablet by mouthonce daily. 90 tablet 1 08/09/2024 05/28/2025 Discontinued (Dosage adjustment)Start: 07-08-2024 End: 83-12-4702drvh 1 tablet by mouth once dailylevothyroxine (SYNTHROID) 50 mcg tablet take 1 tablet by mouth every day 90 tablet 1 07/09/2024 08/09/2024 Discontinued (Dosage adjustment)Start: 19-58-6224icje 1 tablet by mouth once dailylevothyroxine 50 mcg (0.05 mg) Tab 50 mcg = 1 tab(s), Oral, Daily, Refills(s) 0 Start Date: 06/28/24Status: Ordered Repeat number: 1Start: 12-13-2023 End: 90-84-3082ttoe 1 tablet by mouth once dailylevothyroxine (SYNTHROID) 50 mcg tablet TAKE 1 TABLET BY MOUTH EVERY DAY 90 tablet 1 01/04/2024 07/06/2024 DiscontinuedComment on above:Take 1 tablet by mouth once daily.lisinopril 40 mg oral tablet (20 sources)Angiotensin Converting Enzyme InhibitorStart: 98-05-7718ppuz 1 tablet by mouth once dailylisinopril 40 mg Tab 40 mg = 1 tab(s), Oral, Daily, Refills(s) 0 Start Date: 12/17/20 Status: Ordered Repeat number: 1Comment on above:Take by mouth.Take 40 mg by mouth once daily.Ondansetron (20 sources)Serotonin-3 Receptor AntagonistStart: 08-33-6354uewtartmool Refills(s) 0 Start Date: 06/28/24 Status: Ordered Repeat number: 1Start: 74-84-4798ajiijsiiqmc Refills(s) 0 Start Date: 06/28/24 Status: OrderedStart: 81-90-5140lkfk 1 tablet by mouth every eight hours as neededondansetron (ZOFRAN) 8 mg tablet Take 1 tablet by mouth every 8 hours as needed for nausea/vomiting. 90 tablet 2 09/29/2023 9:21 AM EST 09/29/2023 ActiveStart: 11-03-2022 End: 74-49-5012unxb 1 tablet by mouth every eight hours as neededondansetron (ZOFRAN) 8 mg tablet Take 1 tablet by mouth every 8 hours as needed for nausea/vomiting. 90 tablet 2 11/03/2022 01/27/2023 Discontinued (Discontinued by Patient)Comment on above:Take 1 tablet by mouth every 8 hours as needed for nausea/vomiting.Keytruda (20 sources)Programmed Receptor-1 Blocking AntibodyStart: 06-28-2024 Keytruda mg, IV, q3wk, Refills(s) 0 Start Date: 06/28/24 Status: Ordered Repeat number: 1Start: 61-02-1274Gjeijnhe mg, IV, q3wk, Refills(s) 0 Start Date: 06/28/24 Status: OrderedStart: 59-01-4020oykienbkhdnxy (KEYTRUDA INTRAVENOUS) Inject intravenously. 06/28/2024 Activepravastatin sodium 20 mg oral tablet (20 sources)HMG-CoA Reductase InhibitorStart: 04-86-1906dqry 1 tablet by mouth once dailypravastatin 20 mg Tab 20 mg = 1 tab(s), Oral, Daily, Refills(s) 0 Start Date: 12/17/20 Status: Ordered Repeat number: 1Comment on above:Take by mouth.Take 20 mg by mouth once daily.prochlorperazine 10 mg oral tablet (20 sources)PhenothiazineStart: 19-12-4486giku 1 mg by mouth three times daily prochlorperazine 10 mg Tab mg tab(s), Oral, TID, Refills(s) 0 Start Date: 06/28/24 Status: OrderedStart: 49-75-8447ioyp 1 tablet by mouth every six hours as neededprochlorperazine (COMPAZINE) 10 mg tablet Take 1 tablet by mouth every 6 hours as needed. 100 tablet 2 09/29/2023 9:21 AM EST 09/29/2023 ActiveStart: 11-03-2022 End: 52-85-3209nhyp 1 tablet by mouth every six hours as neededprochlorperazine (COMPAZINE) 10 mg tablet Take 1 tablet by mouth every 6 hours as needed. 100 tablet 2 11/03/2022 01/27/2023 Discontinued (Discontinued by Patient)Comment on above:Take 1 tablet by mouth every 6 hours as needed.tadalafil 20 mg oral tablet (20 sources)Phosphodiesterase 5 InhibitorStart: 66-95-4467Ztjhwp 20 mg Tab 20 mg = 1 tab(s), Oral, As Directed, Take one to two hours prior to sexual activity. Do NOT exceed 20 mg (1 tab) in 24 hours., # 30 tab(s), Refills(s) 3, Pharmacy: [facility]/pharmacy #[id number], 182, cm, 06/27/25 8:23:00 EDT, Height/Length Dosing, 89.7, kg, 06/27/25 8:23:00 EDT, Weight DosingStart Date: 06/27/25 Status: Ordered Quantity: 30.0 Unit: tab(s) Repeat number: 4Start: 06-28-2024 End: 14-27-6300migc 1 tablet by mouth once dailyCialis 5 mg oral tablet 5 mg = 1 tab(s), Oral, Daily, X 30 day(s), # 30 tab(s), Refills(s) 11, Pharmacy: [facility]/pharmacy #[id number], 182, cm, 06/28/24 15:07:00 EDT, Height/Length Dosing, 96, kg, 06/28/24 15:07:00 EDT, Weight Dosing Start Date: 06/28/24 Stop Date: 06/23/25 Status: Orderedtake 1 tablet by mouth every twenty-four hours as neededtadalafil (Cialis) 10 MG tablet Take 10 mg by mouth Daily as needed for erectile dysfunction Activetamsulosin hydrochloride 0.4 mg oral capsule (20 sources)alpha-Adrenergic BlockerStart: 06-28-2024 End: 27-83-7902egor 2 capsules by mouth once dailytamsulosin 0.4 mg Cap 0.8 mg = 2 cap(s), Oral, Daily, X 30 day(s), # 60 cap(s), Refills(s) 11, Pharmacy: [facility]/pharmacy #[id number], 182, cm, 06/28/24 15:07:00 EDT, Height/Length Dosing, 96, kg, 06/28/24 15:07:00 EDT, Weight Dosing Start Date: 06/28/24 Stop Date: 06/23/25 Status: OrderedStart: 61-51-1053nynx 1 capsule by mouth once dailytamsulosin 0.4 mg Cap 0.4 mg = 1 cap(s), Oral, Daily, TAKE 2 CAPSULES BY MOUTH EVERY DAY Start Date: 06/27/25 Status: Ordered Repeat number: 1take 1 capsule by mouth every twenty-four hours in the morningtamsulosin (Flomax) 0.4 MG 24 hr capsule Take 0.4 mg by mouth in the morning. ActiveComment on above:Take 0.4 mg by mouth. Completed/Discontinued Medications MedicationDrug Class(es)DatesSig (Normalized)Sig (Original)acetaminophen 500 mg oral tablet (8 sources) End: 40-29-6597xqoa 2 tablets by mouth every six hours as neededacetaminophen (TYLENOL) 500 mg tablet Take 1,000 mg by mouth every 6 hours as needed. 0 11/03/2022 DiscontinuedComment on above:Take 1,000 mg by mouth every 6 hours as needed.acetaminophen 21.7 mg/ml / HYDROcodone bitartrate 0.5 mg/ml oral solution (20 sources)Opioid AgonistStart: 01-02-2023 End: 23-25-1571yava 10 mL by mouth every six hours as needed for pain HYDROcodone-acetaminophen (HYCET) 7.5-325 mg/15 mL oral liquid Indications: Oropharnyx cancer (HCC), Cancer related pain Take 10 mL by mouth every 6 hours as needed for pain. Take with stool softener. 300 mL 0 01/02/2023 01/27/2023 Discontinued (Discontinued by another Health Care Provider)Start: 11-14-2022 End: 04-37-1894lfgq 1 tablet by mouth every eight hours as needed for pain HYDROcodone-acetaminophen (NORCO) 5-325 mg per tablet Indications: Oropharnyx cancer (HCC) Take 1 tablet by mouth every 8 hours as needed for pain. 16 tablet 0 11/14/2022 01/13/2023 DiscontinuedComment on above:Take 1 tablet by mouth every 8 hours as needed for pain.Take 10 mL by mouth every 6 hours as needed for pain. Take with stool softener.diphenhydrAMINE 12.5 mg/5 mL lidocaine visc 2% MAALOX 200-200-20 mg/5 mL nystatin prednisoLONE 15 mg/5 mL oral liquid 1:1:1:1:1 (CPD) (20 sources)Start: 01-09-2023 End: 29-45-0036ossb 10 mL by mouth every six hours as neededdiphenhydrAMINE 12.5 mg/5 mL lidocaine visc 2% MAALOX 200-200-20 mg/5 mL nystatin prednisoLONE 15 mg /5 mL oral liquid 1:1:1:1:1 (CPD) Swish and swallow 10 mL by mouth every 6 hours as needed. 300 mL 1 01/09/2023 01/27/2023 Discontinued (Discontinued by Patient) Start: 02-47-8932qwfj 10 mL by mouth every six hours as neededdiphenhydrAMINE 12.5 mg/5 mL lidocaine visc 2% MAALOX 200-200-20 mg/5 mL nystatin prednisoLONE 15 mg/5 mL oral liquid 1:1:1:1:1 (CPD) Swish and swallow 10 mL by mouth every 6 hours as needed. 300 mL 1 01/09/2023 ActiveStart: 12-21-2022 End: 64-53-6777dnia 10 mL by mouth every six hours as neededdiphenhydrAMINE 12.5 mg/5 mL lidocaine visc 2% MAALOX 200-200-20 mg/5 mL nystatin prednisoLONE 15 mg /5 mL oral liquid 1:1:1:1:1 (CPD) Take 10 mL by mouth every 6 hours as needed. Swish and swallow 300 mL 1 12/21/2022 01/07/2023 DiscontinuedStart: 12-21-2022 take 10 mL by mouth every six hours as neededdiphenhydrAMINE 12.5 mg/5 mL lidocaine visc 2% MAALOX 200-200-20 mg/5 mL nystatin prednisoLONE 15 mg/5 mL oral liquid 1:1:1:1:1 (CPD) Take 10 mL by mouth every 6 hours as needed. Swish and swallow 300 mL 1 12/21/2022 ActiveStart: 12-07-2022 End: 72-59-4499fugt 10 mL by mouth every six hours as neededdiphenhydrAMINE 12.5 mg/5 mL lidocaine visc 2% MAALOX 200-200-20 mg/5 mL nystatin prednisoLONE 15 mg /5 mL oral liquid 1:1:1:1:1 (CPD) Take 10 mL by mouth every 6 hours as needed. Swish and swallow 300 mL 1 12/07/2022 12/21/2022 DiscontinuedStart: 12-07-2022 take 10 mL by mouth every six hours as neededdiphenhydrAMINE 12.5 mg/5 mL lidocaine visc 2% MAALOX 200-200-20 mg/5 mL nystatin prednisoLONE 15 mg/5 mL oral liquid 1:1:1:1:1 (CPD) Take 10 mL by mouth every 6 hours as needed. Swish and swallow 300 mL 1 12/07/2022 ActiveComment on above:Take 10 mL by mouth every 6 hours as needed. Swish and swallowSwish and swallow 10 mL by mouth every 6 hours as needed.doxazosin 4 mg oral tablet (20 sources)alpha-Adrenergic BlockerStart: 08-30-2022 End: 65-30-7698trbc 1 tablet by mouth once dailydoxazosin (CARDURA) 4 mg tablet Take 4 mg by mouth once daily. 08/30/2022 04/18/2023 Discontinued (Changing Therapy/Dosage Form)Start: 73-91-4740uaimzmacl 4 mg Tab 4 mg = 1 tab(s), Refills(s) 0 Start Date: 08/24/21 Status: OrderedComment on above:Take 4 mg by mouth once daily.hydrocortisone 5 mg oral tablet (20 sources)CorticosteroidStart: 03-28-2024 End: 13-29-6577dqyfrhjmhrljqr (CORTEF) 5 mg tablet Take 10 mg upon waking in the morning and 5 mg at night (4-6 hours before bed) 90 tablet 2 03/28/2024 06/11/2024 Discontinued (Discontinued by another Health Care Provider) End: 78-07-8694qijb 1 tablet by mouth once daily in the eveninghydrocortisone (Cortef) 5 MG tablet Take 5 mg by mouth Daily 2 tabs in AM, 1 tab PM 05/02/2025 Discontinued (Therapy completed)NaCl 0.9% 500 mL (1 source)Start: 03-26-2024 End: 93-25-4003OjQi 0.9% 500 mLpembrolizumab 400 mg in NaCl 0.9% 74 mL (KEYTRUDA) (12 sources)Start: 05-29-2025 End: 52-42-7218708 mg, INTRAVENOUS, Administer over 30 Minutes, ONCE, 1 dose, On Mon05/29/25 at 1000, EXP: 06/02/2025 0950 Refrigerated Administer with 0.2 micron filter.Start: 04-18-2025 End: 03-56-5405435 mg, INTRAVENOUS, Administer over 30 Minutes, ONCE, 1 dose, On Mon04/18/25 at 1400, EXP: 04/18/25@ 1815 RT Administer with 0.2 micron filter. Start: 03-07-2025 End: 66-39-8971994 mg, INTRAVENOUS, Administer over 30 Minutes, ONCE, 1 dose, On Mon03/07/25 at 1430, EXP: 03/11/2025 1435 Refrigerated Administer with 0.2 micron filter.Start: 01-24-2025 End: 90-34-8075132 mg, INTRAVENOUS, Administer over 30 Minutes, ONCE, 1 dose, On Mon01/24/25 at 1400, EXP: 01/28/2025 1350 Refrigerated Administer with 0.2 micron filter.Start: 12-13-2024 End: 71-96-6589082 mg, INTRAVENOUS, Administer over 30 Minutes, ONCE, 1 dose, On Mon12/13/24 at 1430, EXP: 12/17/2024 1415 Refrigerated Administer with 0.2 micron filter.Start: 11-01-2024 End: 21-86-6521287 mg, INTRAVENOUS, Administer over 30 Minutes, ONCE, 1 dose, On Mon11/01/24 at 1400, EXP: 11/05/2024 1400 RT Administer with 0.2 micron filter. Start: 09-13-2024 End: 49-33-4557954 mg, INTRAVENOUS, Administer over 30 Minutes, ONCE, 1 dose, On Mon09/13/24 at 1400, EXP: 09/17/2024 1350 RT Administer with 0.2 micron filter. Start: 08-02-2024 End: 54-40-8419105 mg, INTRAVENOUS, Administer over 30 Minutes, ONCE, 1 dose, On Mon08/02/24 at 1330, EXP 191908/02/24 Administer with 0.2 micron filter.Start: 06-20-2024 End: 14-82-8425259 mg, INTRAVENOUS, Administer over 30 Minutes, ONCE, 1 dose, On Mon06/20/24 at 1430, EXP: 06/24/2024 1430 RT Administer with 0.2 micron filter. Start: 05-08-2024 End: 21-25-4668ejwljwxtldmtq 400 mg in NaCl 0.9% 74 mL (KEYTRUDA)Start: 03-26-2024 End: 24-25-0111cstqafoguaeda 400 mg in NaCl 0.9% 74 mL (KEYTRUDA)Start: 02-13-2024 End: 40-44-1689zampiennlpjxy 400 mg in NaCl 0.9% 74 mL (KEYTRUDA)125 ml sodium chloride 9 mg/ml prefilled syringe (2 sources)Start: 12-13-2024 End: -20 mL, INTRAVENOUS, DIRECTED NEEDED, Starting on Mon12/13/24 at 1409, Until Mon12/13/24 at 1708, See Administration Instructions, IVADS not in use should be accessed and flushed once every 4 to 6 weeks with 10 mL of 0.9% NaCl. Upon IVAD de-access or post blood draw the IVAD should be flushedwith 20 mL of 0.9% NaCl using push/pause method. Normal saline flush every 12 weeks when not being used.Start: 09-13-2024 End: 78-82-1304721-999 mL/hr, INTRAVENOUS, NEEDED, 1 dose, Starting on Mon09/13/24 at 1340, Until Mon09/13/24 at 1443, Hypotension (titrate to maintain SBP greater than 100), Administer per hypersensitivity/anaphylaxis grading in nursing communication Problems Active Problems Problem ClassificationProblemDateDocumented DateEpisodic/ChronicCancer of bronchus; lung (17 sources)Malignant tumor of lung; Translations: [Malignant neoplasm of unspecified part of unspecified bronchus or lung]Onset: [id number] ChronicCancer of head and neck (20 sources)Malignant tumor of oropharynx; Translations: [Malignant neoplasm of oropharynx, unspecified]Onset: 79-42-8322OmpyxpmGpedmk; other respiratory and intrathoracic (2 sources)Malignant neoplasm of lower respiratory ybsyt91-09-1076ExjzwweJsqziao kidney disease (20 sources)Chronic kidney disease stage 3; Translations: [Stage 3 chronic kidney disease, unspecified whether stage 3a or 3b CKD (HCC)]Onset: 05-14-2024 32-22-9395IbkbdqjUebkvrpwx of lipid metabolism (20 sources)Hyperlipidemia; Translations: [Hyperlipidemia, unspecified]Onset: 04-09-2023 Resolved: 533020-60-4516ItgofnlAidmruzypc disorders (2 sources)Gastroesophageal reflux disease; Translations: [Gastro-esophageal reflux disease without esophagitis]75-17-2141NvjtxydGdnvvvuasc disorders (2 sources)Esophagitis; Translations: [Esophagitis]EpisodicEssential hypertension (20 sources)Hypertensive disorder; Translations: [Essential (primary) hypertension]Onset: 543818-09-6958LuoncsmXxmbvqvk; including migraine (4 sources)Thunderclap headache; Translations: [Primary thunderclap headache] Onset: 549084-35-6905FvvynhsrNfdjvknwfyu of prostate (20 sources)Benign prostatic hypertrophy with outflow obstruction; Translations: [Benign prostatic hyperplasia with lower urinary tract symptoms]Onset: 04-21-2022 Resolved: 26-43-3441MhydjseWgbqoswtaajro (3 sources)Lymphadenopathy; Translations: [Enlarged lymph nodes, unspecified] Onset: 062623-68-3891LtbtzpsfOzveyovvhyp deficiencies (20 sources)Deficiency of macronutrients; Translations: [Unspecified severe protein-calorie malnutrition]Onset: 12-19-2022 Resolved: 10-61-8396UzdcdqqTrsyumqumvvwhx (20 sources)Arthritis; Translations: [Unspecified osteoarthritis, unspecified site]Onset: 04-09-2023 Resolved: 190816-36-5154LyvbagqSxtkf diseases of kidney and ureters (1 source)Urinary tract obstruction; Translations: [Other obstructive and reflux uropathy]Onset: 68-88-3916AtydmvjgOthqi ear and sense organ disorders (20 sources)Hearing loss; Translations: [Unspecified hearing loss, unspecified ear]Onset: 853899-10-9332EihmiprYgvtr ear and sense organ disorders (2 sources)Chronic right myringitis; Translations: [Chronic myringitis, right ear]40-67-8439GmipzjtUxrmy endocrine disorders (20 sources)Hypoadrenalism; Translations: [Unspecified adrenocortical insufficiency]Onset: 428151-67-5765NtjfkykSookr endocrine disorders (1 source)Unspecified adrenocortical insufficiency; Translations: [Adrenal insufficiency (HCC)]Onset: 10-71-1138EthihfuSedim gastrointestinal disorders (1 source)Oral phase dysphagia; Translations: [Dysphagia, oral phase]05-29-2025 EpisodicOther gastrointestinal disorders (1 source)Dysphagia, oral phase; Translations: [Oral phase dysphagia]Onset: 79-74-9196TrktayunDipnm lower respiratory disease (5 sources)Nodule of lung; Translations: [Solitary pulmonary nodule]08-03-2023 EpisodicOther lower respiratory disease (1 source)Cough; Translations: [Subacute cough]87-30-8630MuvqvzipEdxdo male genital disorders (4 sources)Male erectile dysfunction, unspecified; Translations: [Erectile dysfunction]Onset: 26-54-6005DculzpwFnwll nervous system disorders (1 source)Pain due to neoplastic disease; Translations: [Neoplasm related pain (acute) (chronic)]ChronicOther screening for suspected conditions (not mental disorders or infectious disease) (20 sources)Raised prostate specific antigen; Translations: [Elevated prostate specific antigen [PSA]]Onset: 04-20-2022 Resolved: 83-93-4908UspufelaBcfnq skin disorders (4 sources)Localized swelling, mass and lump, neck; Translations: [LOCALIZED SWELLING MASS AND LUMP NECK]Onset: 51-76-9032MtspcmkdTxrtzvbq codes; unclassified (5 sources)Family history of cancer; Translations: [Family history of malignant neoplasm of prostate]Onset: 40-22-3412QygrqnrzTstfvknm codes; unclassified (2 sources)Patient encounter status; Translations: [Encounter for immunotherapy] 06-51-4692SsbxwsfyUbtzmgob codes; unclassified (1 source)H/O: radiation exposure; Translations: [Personal history of irradiation]22-12-5629TjsidgfaJraudsxa codes; unclassified (1 source)Personal history of irradiation; Translations: [Personal history of irradiation]Onset: 63-81-5285HbwdqqtdKzgmvmelu malignancies (1 source)Secondary and unspecified malignant neoplasm of lymph nodes of head, face and neck; Translations: [SEC AND UNS MAL MARIA DE JESUS NODES HEAD AND NCK]Onset: 53-04-5124OpqqxlnHspwrayyc malignancies (20 sources)Metastasis to head and neck lymph node; Translations: [Secondary and unspecified malignant neoplasmof lymph nodes of head, face and neck]Onset: 136333-93-1320HdigozvVzueliqoy malignancies (10 sources)Secondary malignant neoplasm of right lung; Translations: [Secondary malignant neoplasm of right lung]45-51-5878TrgbxblTlsctkysc malignancies (4 sources)Secondary malignant neoplasm of chest wall; Translations: [Secondary malignant neoplasm of other specified sites]80-95-6642GvvbsaxCalkdgoes malignancies (3 sources)Secondary malignant neoplastic disease; Translations: [Secondary malignant neoplasm of unspecified site]Onset: 864544-73-0703Eiodyon Secondary malignancies (1 source)Secondary malignant neoplasm of right lung; Translations: [Secondary malignant neoplasm of right lung (HCC)]Onset: 21-91-2269KxppsfzTsfbklbar malignancies (1 source)Secondary malignant neoplasm of other specified sites; Translations: [Secondary malignant neoplasm of chest wall (HCC)]Onset: 29-51-9318Prpzukx Substance-related disorders (1 source)Nicotine dependence, cigarettes, uncomplicated; Translations: [NICOTINE DEPEND CIGARETTES UNCOMP]Onset: 20-52-1117WqgcdgyMlzsfof disorders (20 sources)Acquired hypothyroidism; Translations: [Hypothyroidism, unspecified] Onset: 608517-45-9197SmqzhfwSkuiepemwget (6 sources)Asymptomatic microscopic jxthazgzz37-56-5959Qqnfcoqcqnnh (1 source)CONTACT W/AND (SUSP) EXPOS COVID-19; Translations: [CONTACT W/AND (SUSP) EXPOS COVID-19]Onset: 04-32-1787Basefkzmyikc (1 source)Encounter for observation for other suspected diseases and conditions ruled out; Translations: [Encounter for observation for other suspected diseases and conditions ruled out]Onset: 76-75-2426Bgyzvcfmshsf (1 source)Subacute cough; Translations: [Subacute cough]Onset: 05-29-2025 Unclassified (1 source)Encounter for immunotherapy; Translations: [Encounter for immunotherapy]Onset: 03-07-2025 Past or Other Problems Problem ClassificationProblemDateDocumented DateEpisodic/ChronicCancer of prostate (20 sources)History of malignant neoplasm of prostate; Translations: [Personal history of malignant neoplasm ofprostate]Onset: 526503-83-8927Vmxbaonu Genitourinary symptoms and ill-defined conditions (20 sources)Nocturia; Translations: [Poor stream of urine]Onset: 04-09-2023 Resolved: 784369-68-9251DydvshloVgzqrlu and fatigue (12 sources)Malaise and fatigue; Translations: [Other malaise]Onset: 03-07-2025 45-50-6545BbechjevXctksgvtv of unspecified nature or uncertain behavior (5 sources)Neoplasm of lung ; Translations: [Neoplasm of unspecified behavior of respiratory system]Onset: 970247-68-4895IkzguaimSktop and unspecified benign neoplasm (20 sources)Adenomatous polyp of colon ; Translations: [Benign neoplasm of colon, unspecified]Onset: 04-09-2023 Resolved: 297765-78-6067XcjcckrwMrmtk and unspecified benign neoplasm (20 sources)Polyp of colon; Translations: [Polyp of colon]Onset: 02-14-2024 13-87-3654TvlzvwdqChprc ear and sense organ disorders (20 sources)Acute otitis externa; Translations: [Swimmer's ear, right ear]Onset: 959823-35-8304RulzfjmwUhiiy ear and sense organ disorders (20 sources)Ear problem; Translations: [Unspecified disorder of ear, unspecified ear]Onset: 484423-08-3666OyoarbniBtdtp ear and sense organ disorders (20 sources)Otorrhea; Translations: [Otorrhea, right ear]Onset: 04-19-2024 99-58-9622VpskqjvuKxfaf skin disorders (20 sources)Mass of neck; Translations: [Localized swelling, mass and lump, neck]Onset: 02-24-2023 Resolved: 403452-12-5152OvbcbbhzTnhqwtkn codes; unclassified (20 sources)Family history of prostate cancer; Translations: [Family history of malignant neoplasm of prostate]Onset: 04-09-2023 Resolved: 950832-72-5069TcewyhqrPefznqqt codes; unclassified (1 source)Family history of malignant neoplasm of prostate; Translations: [FAMILY HX MALIG NEOPLASM PROSTATE]Onset: 58-78-0376BceugeynEehcjqhvg and history of mental health and substance abuse codes (20 sources)Ex-smoker; Translations: [Personal history of nicotine dependence] Onset: 119983-49-4905Kmgbsrfg Results Test NameValueInterpretationReference RangeFacilityCNPNon 08-20-7138BOAZ Telephone (HEMASA) CAITLIN ELMORE ([id number]) 1965 M Date Time Provider Department 08/18/25 POLY DORAN During your visit today, we recorded the following information about you: Poly Doran RN 08/18/2025 11:[address] lab orders for OTV Poly Doran RN Allergies As of Date: 08/18/2025 (No Known Allergies) Date Reviewed: 06/05/2025 Reviewed by: Maddy Quach LPN - Fully Assessed Reason for Visit: Lab Orders [1688] Primary Visit Diagnosis: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 - pembrolizumab (KEYTRUDA INTRAVENOUS) Inject intravenously. - ondansetron (ZOFRAN) 8 mg tablet Take 1 tablet by mouth every 8 hours as needed for nausea/vomiting. - prochlorperazine (COMPAZINE) 10 mg tablet Take 1 tablet by mouth every 6 hours as needed. - tamsulosin (FLOMAX) 0.4 mg Take 0.4 mg by mouth. - amLODIPine (NORVASC) 10 mg tablet Take 10 mg by mouth once daily. - lisinopril (ZESTRIL, PRINIVIL) 40 mg tablet Take 40 mg by mouth once daily. - pravastatin (PRAVACHOL) 20 mg tablet Take 20 mg by mouth once daily. - ibuprofen (MOTRIN) 200 mg tablet Take 200 mg by mouth every 6 hours as needed. 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] 11/02/2022 Severe protein-calorie malnutrition (HCC) [E43] 12/19/2022 Former smoker [Z87.891] 05/14/2024 Hypothyroidism [E03.9] 05/14/2024 Adrenal insufficiency (HCC) [E27.40] 05/14/2024 HTN (hypertension) [I10] 05/14/2024 HLD (hyperlipidemia) [E78.5] 05/14/2024 CKD (chronic kidney disease) [N18.9] 05/14/2024 Adrenal hypofunction (HCC) [E27.40] 01/10/2025 Encounter Status:Closed by VICKY MAGUIRE on 08/18/25NormalCGrand Lake Joint Township District Memorial Hospitalprehensive metabolic 2000 panelon 21-13-5974Wfxasqi [Mass/Vol]4.2 g/dLNormal3.9-4.9CPremier Health Upper [facility] on above:Order Comment: Specimen Type: BLOOD SPECIMENOrdering Facility: [facility] Address:[address] [place], [place] [address]Performed By: #### 28184-4 ####[facility] LABCLIA [id number] [place], [place] [address]VLB [Catalytic activity/Vol]86 U/HAxtwcd75-559CchyqpgdxCleveland Clinic on above:Order Comment: Specimen Type: BLOOD SPECIMENOrdering Facility: [facility] Address:[address] [place], [place] [address]Performed By: #### 16063-4 ####[facility] LABCLIA [id number] [place], [place] [address]HGU [Catalytic activity/Vol]9 U/YZmu28-49QghxcdeghCleveland Clinic on above:Order Comment: Specimen Type: BLOOD SPECIMENOrdering Facility: [facility] Address:[address] [place], [place] [address]Performed By: #### 36343- 8 ####[facility] LABCLIA [id number] [place], [place] [address]Uccuj gap [Moles/Vol]12 mmol/LNormal8-15[facility] on above:Order Comment: Specimen Type: BLOOD SPECIMENOrdering Facility: [facility] Address:[address] [place], [place] [address]Performed By: #### 22212-4 ####[facility] LABCLIA [id number] [place], [place] [address]KYJ [Catalytic activity/Vol]10 U/UJve08-12McfvjvdtjCleveland Clinic on above:Order Comment: Specimen Type: BLOOD SPECIMENOrdering Facility: [facility] Address:[address] [place], [place] [address]Performed By: #### 23708-8 ####[facility] LABCLIA [id number] [place] [address] Bilirubin [Mass/Vol]0.4 mg/dLNormal0.2-1.3CPremier Health Upper [facility] on above:Order Comment: Specimen Type: BLOOD SPECIMENOrdering Facility: [facility] Address:[address] [place], [place] [address]Performed By: #### 44320-8 ####[facility] LABCLIA [id number] [place], [place] [address]Knsqxnl [Mass/Vol]9.7 mg/dLNormal8.5-10.2CPremier Health Upper Valley [facility] on above:Order Comment: Specimen Type: BLOOD SPECIMENOrdering Facility: [facility] Address:[address] [place], [place] [address]Performed By: #### 36396-3 ####[facility] LABCLIA [id number] [place], [place] [address]Ildvlxnf [Moles/Vol]101 mmol/AZhhjef06-708FjjiqhoumCleveland Clinic on above: Order Comment: Specimen Type: BLOOD SPECIMENOrdering Facility: [facility] Address:[address] [place], [place] [address]Performed By: #### 14323- 8 ####[facility] LABCLIA [id number] [place], [place] [address]ZJ1 [Moles/Vol]22 mmol/PGkguba29-88EtuycwftmCleveland Clinic on above:Order Comment: Specimen Type: BLOOD SPECIMENOrdering Facility: [facility] Address:[address] [place] [address]Hrgjurdfg By: #### 49403-3 ####[facility] LABCLIA [id number] [place], [place] [address]Zqcuoyghgo [Mass/Vol]1.30 mg/dL High0.73-1.22[facility] on above:Order Comment: Specimen Type: BLOOD SPECIMENOrdering Facility: [facility] Address:[address] [place], [place] [address]Performed By: #### 38926-1 ####[facility] LABCLIA [id number] [place] [address] eGFRcr SerPlBld CKD-EPI 239722 mL/min/1.73m???Normal>=60[facility] on above:Order Comment: Specimen Type: BLOOD SPECIMENOrdering Facility: [facility] Address:[address] [place], [place] [address]Result Comment: Estimated Glomerular Filtration Rate (eGFR) is [...] accurately reflect actual GFR. Performed By: #### 87791-7 ####[facility] LABCLIA [id number] [place], [place] [address]Sbtsiey [Mass/Vol]99 mg/dL Fjsbor02-75ShvhislbvCleveland Clinic on above:Order Comment: Specimen Type: BLOOD SPECIMENOrdering Facility: [facility] Address:[address] [place] [address]Marfbl Comment: The [place] [employer] (ADA) provides guidance for cutoff values for fasting glucose and random glucose. The ADA defines fasting as no caloric intake for at least 8 hours. F asting plasma glucose results between 100 to 125 [...] Standards of Medical Care in Diabetes 2016, [place] [employer]. Diabetes Care. 2016.39(Suppl 1).Performed By: #### 55810-2 ####[facility] LABCLIA [id number] [place], [place] [address]Kfmfctfdx [Moles/Vol]3.6 mmol/LLow3.7-5.1CPremier Health Upper Valley [facility] on above:Order Comment: Specimen Type: BLOOD SPECIMENOrdering Facility: [facility] Address:[address] [place], [place] [address]Performed By: #### 60517-5 ####[facility] LABCLIA [id number] [place], [place] [address]Hetqkfy [Mass/Vol]6.7 g/dL Normal6.3-8.0[facility] on above:Order Comment: Specimen Type: BLOOD SPECIMENOrdering Facility: [facility] Address:[address] [place], [place] [address]Performed By: #### 57695-7 ####[facility] LABCLIA [id number] [place] [address] Sodium [Moles/Vol]135 mmol/FIti820-953NhymtmoznCleveland Clinic on above:Order Comment: Specimen Type: BLOOD SPECIMENOrdering Facility: [facility] Address:[address] [place], [place] [address]Performed By: #### 63778-5 ####[facility] LABCLIA [id number] [place], [place] [address]Rwdy nitrogen [Mass/Vol]20 mg/dLNormal07-02[facility] on above:Order Comment: Specimen Type: BLOOD SPECIMENOrdering Facility: [facility] Address:[address] [place], [place] [address]Performed By: #### 18541-7 ####[facility] LABCLIA [id number] [place], [place] [address]HVV SerPl-aCncon 45-80-4758OAG Qn2.500 m[IU]/LNormal0.270-4.200[facility] on above:Order Comment: Specimen Type: BLOOD SPECIMENOrdering Facility: [facility] Address:[address] [place] [address] Performed By: #### 3016-3 ####[facility] LABCLIA [id number] [address] [facility] Urology Office/Clinic Noteon 37-01-9959Guwmkyo Office/Clinic NoteUrology Office/Clinic Note Chief Complaint 1 year with PSA HPI Staff 1 year follow up w/PSA FT Previous Dx: elevated PSA, BPH with obstruction, fam hx of prostate ca in father. S/p MRI fusion TP biopsy 06/28/23. MRI prostate 05/16/23. TRUS/bx by Dr. Zaragoza 09/16/21. *Flomax 0.4 mg qPM. Pt needs refill sent to [facility] Previous PSA 06/26/24 - 3.79 Current PSA 4.7 & 17.9% 06/19/25 IPSS: 22 Denies abdominal/flank pain, denies dysuria and denies visible blood PVR: 19 ml History of Present Illness Tests reviewed: UA, PSA, PVR I have reviewed the previous health record [...] & Measurements HR: 64(Peripheral) RR: 16 BP: 130/82 HT: 72 in HT: 182 cm WT: 89.7 kg WT: 197.754 lb BMI: 27.08 General Appearance: alert, no distress, well nourished, well developed adult. Assessment/Plan 60 year old male with history of throat cancer here follow up of elevated PSA. Hx of abnormal PET scan and MRI s/p biopsy. No hx of heart attack or stroke. Not taking anticoagulation. 1. Elevated PSA (R97.20: Elevated prostate specific antigen [PSA]) PSA: 05/2020 - 2.7 & 17% 11/21/20 - 3.7 & 15% 06/21/21 - 3.6 & 13% 04/20/22 - 3.8 & 17% 03/11/23 - 3.0 & 27% 06/26/24 - 3.8 06/19/25 - 4.7 & 17.9% TRUS/bx by Dr. Zaragoza 09/16/[address] León ordered PET scan due to throat cancer, prostate abnormality found so that's why MRI was ordered even though PSA improved [1]. MRI prostate 05/16/23 - lateral aspect left peripheral zone, mid gland measuring 12 x 5 mm. PI-RADS4. No evidence of lymphadenopathy. 53 ml vol. S/P MRI fusion TP biopsy 06/28/23 - All cores benign. No inflammation noted. Confirm MDx - 24% likelihood of prostate ca on repeat bx. 19% of /=G7. PSA did increase. Could have increased d/t worsening urination. Reviewed 5% risk of high grade cancer based on PCPT and history. Discussed management options including closer PSA monitoring vs prostate MRI which could lead to fusion bx if lesion was found. May proceed with prostate bx regardless given prostate MRIs can miss prostate cancer in 12-16% of patients. R/Bs of options discussed. Pt elects to cont PSA monitoring. Follow up 3 mos with PSA F&T or sooner if needed. If continues to rise, will obtain repeat MRI.Pt understands and agrees with plan. 2. BPH with urinary obstruction (N40.1: Benign prostatic hyperplasia with lower urinary tract symptoms) UA shows small leuks. Asx. PVR 19 cc, emptying well. IPSS 22 (20). Taking Flomax 0.4 mg qPM. Refill sent to [facility]. Started Cialis 5 mg qd at prior OV, tried for a yr wo improvement so he stopped med. No SEs however. Has not noticed a difference wo med. Some morning frequency but otherwise daytime urination fine. Nocturia is the issue. Denies JOSE J. Does not drink fluids before bed. Voids q2-3hr during the day. We discussed male prostatic anatomy and how this is likely contributing to his urinary symptoms. We discussed how potential prostate obstruction affects long- term bladder health and compliance. In order to assess degree of bladder outlet obstruction and bladder health, discussed further evaluation with cystoscopy/TRUS for prostate sizing. Pt agrees to proceed. -Cont Flomax -Will schedule cysto and TRUS for prostate sizing. The risks and benefits for cystoscopy have been discussed. The risks include bleeding, infection, and irritation of the bladder and urinary channel,among others. The patient, after being informed of procedural details and after questions have beenanswered, wishes to proceed. Full informed consent has been obtained. Will order Local anesthesia. 3. Erectile dysfunction (N52.9: Male erectile dysfunction, unspecified) SILVIANO 1 (1). No improvement with ED on Cialis 5 mg qd for BPH. Discussed sildenafil (faster acting, shorter half life) vs tadalafil (slower acting, longer half life). Pt elects Cialis. -Start Cialis 20 mg prn. SEs, proper use, contraindications, priapism discussed. Sent to [facility]. 4. Family history of prostate cancer in father (Z80.42: Family history of malignant neoplasm of prostate) Increased risk given direct family history. Cont PSA monitoring above. Follow-up With When Contact Information Norma Craig MD, URL, URO Additional Instructions: 3 mos with PSA F&T schedule cysto and TRUS (more content not included)...[facility] HospitalComment on above:Result Comment: Electronically Signed By: Norma Craig MD\.br\Date and Time Signed: 06/27/25 09:13EDT\.br\Electronically Co-Signed By: Pascale Koch\.br\Date and Time Co-Signed: 06/27/25 08:59 EDTCLynne 80-09-6728HQPAArbcel Visit (RTMNCA) CAITLIN ELMORE ([id number]) 1965 M Date Time Provider Department 06/05/25 11:30 AM TAYLA ELLSWORTH RTMNCA During your visit today, we recorded the following information about you: Temperature Pulse Respiration Blood pressure 98.1 degrees 62/minute 20/minute 129/71 Weight 89.6 kg Maddy Quach LPN 06/05/2025 2:36 PM Signed Additional intake questions: Has the patient had fever, nausea, vomiting, diarrhea, constipation, fatigue for > 1 week? No Does the patient have a decreased appetite? No Does patient want to see a Market Investigator? No (yes to any of above refer patient to schedulers for dietitian appointment) ) Does patient have any new or increased numbness or tingling of extremities? No Is patient interested in fertility information? No Does patient need any prescription refills? No Does patient have an advanced directive in place? No, Patient referred to Resource Center Electronically Signed By: ANGELES De Jesus Gregory M, MD 06/05/2025 2:36 PM Signed Radiation Oncology - Follow Up Note PATIENT NAME: Caitlin Elmore PATIENT DIAGNOSIS: Oligoprogressive 2 RUL lung metastases, from previously treated HANDN cancer. S/p lung SBRT 07/05/2024 Single isocenter for 2 lung lesions: 3400 cGy in 1 fx ONCOLOGIC HX: 1. HPV positive BOT SCC Treatment History: 1. Concurrent Cisplatin and XRT 11/21/2021- XRTY completed 01/06/2023 and last dose of chemo 12/21/2022 (Total [place] dose= 200 mg/m2) 2. 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 Planning on taking trip to [facility] over the summer. May visit [facility] later this month as his daughter is [...] VS: BP 129/71 Pulse 62 Temp 36.7 ?C (98.1 ?F) (Temporal) Resp 20 Wt 89.6 kg (197 lb 8.5 oz) SpO2 100% BMI 27.93 kg/m? KPS: 100 General Appearance: Alert and oriented. No acute distress. HEENT: NCAT. Sclera anicteric. PERRL. EOMI. Neck: Normal ROM. No palpable cervical or supraclavicular adenopathy. (more content not included)...NormalPremier Health [facility] W Auto Differential panel (Bld)on 92-65-1188Rtwlnsmos (Bld) [#/Vol]0.08 10*3/uLNINF [facility] HospitalBasophils/100 WBC (Bld)0.8 %[facility] HospitalDifferential cell count method Nom (Bld)AutoCleveland ClinicEosinophils (Bld) [#/Vol]1.65 10*3/uL HighNINFWvumedicine Barnesville HospitalEosinophils/100 WBC (Bld)17.1 %[facility] Erythrocyte distribution width (RBC) [Ratio]13.2 %11.5 - 15.0 %[facility] Hematocrit (Bld) [Volume fraction]39.9 %39.0 - 51.0 %[facility] HospitalHemoglobin (Bld) [Mass/Vol]13.1 g/dL13.0 - 17.0 g/dLWvumedicine Barnesville HospitalImmature granulocytes (Bld) [#/Vol]0.07 10*3/uLNINFWvumedicine Barnesville HospitalImmature granulocytes/100 WBC (Bld) 0.7 %[facility] HospitalInterpretation and review of laboratory resultsAbnormal [facility] HospitalLymphocytes (Bld) [#/Vol]1.29 10*3/uLWvumedicine Barnesville Hospital Lymphocytes/100 WBC (Bld)13.4 %[facility] CenterH (RBC) [Entitic mass]26.7 pg 26.0 - 34.0 pgCAshtabula General HospitalHC (RBC) [Mass/Vol]32.8 g/dL30.5 - 36.0 g/dL [facility] CenterV (RBC) [Entitic vol]81.4 fL80.0 - 100.0 fLCOhioHealth O'Bleness Hospital Monocytes (Bld) [#/Vol]0.74 10*3/[facility] HospitalMonocytes/100 WBC (Bld) 7.7 %[facility]vumedicine [facility] HospitalNeutrophils (Bld) [#/Vol]5.82 10*3/[facility] Neutrophils/100 WBC (Bld)60.3 %[facility] HospitalNucleated RBC (Bld) [#/Vol]NINF [facility] HospitalNucleated RBC/100 WBC (Bld) [Ratio]0.0 %/100 WBCWvumedicine [facility] Hospital Platelet mean volume (Bld) [Entitic vol]8.3 fLLow9.0 - 12.7 fLCOhioHealth O'Bleness Hospital Platelets (Bld) [#/Vol]226 10*3/uLWvumedicine Barnesville HospitalRBC (Bld) [#/Vol]4.90 10*6/uL 4.20 - 6.00 m/[facility] HospitalWBC (Bld) [#/Vol]9.65 10*3/[facility] ClinicBasophils (Bld) [#/Vol]0.08 10*3/Normal<0.11CMartins Ferry HospitalComment on above:Order Comment: Specimen Type: BLOOD SPECIMENOrdering Facility: [facility] Address:[address] [place], [place] [address]Ilojiqmdq By: #### 38657-7 ####[facility] LABCLIA [id number] [place], [place] [address]Cljndvadw/100 WBC (Bld)0.8 % NormalCleveland Clinic on above:Order Comment: Specimen Type: BLOOD SPECIMENOrdering Facility: [facility] Address:[address] [place], [place] [address]Performed By: #### 84536-7 ####[facility] LABCLIA [id number] [place] [address] Differential cell count method Nom (Bld)AutoNormalClevelCape Fear Valley Medical Center Comment on above:Order Comment: Specimen Type: BLOOD SPECIMENOrdering Facility: [facility] Address:[address] [place] [address] Performed By: #### 54724-1 ####[facility] LABCLIA [id number] [place], [place] [address]Uglupijdxzt (Bld) [#/Vol]1.65 10*3/uLHigh<0.46[facility] on above:Order Comment: Specimen Type: BLOOD SPECIMENOrdering Facility: [facility] Address:[address] [place], [place] [address]Performed By: #### 51730-1 ####[facility] LABCLIA [id number] [place], [place] [address]Svogxdcsbkd/100 WBC (Bld)17.1 %NormalCleveland Clinic on above:Order Comment: Specimen Type: BLOOD SPECIMENOrdering Facility: [facility] Address:[address] [place], [place] [address]Performed By: #### 92952-7 ####[facility] LABCLIA [id number] [place], [place] [address]Qhsrxxwtkhv distribution width (RBC) [Ratio]13.2 %Apzdej21.5-15.0[facility] on above: Order Comment: Specimen Type: BLOOD SPECIMENOrdering Facility: [facility] Address:[address] [place], [place] [address]Performed By: #### 32644- 8 ####[facility] LABCLIA [id number] [place], [place] [address]Xggsjacqek (Bld) [Volume fraction]39.9 %Sxpgyr83.0-51.0 [facility] on above:Order Comment: Specimen Type: BLOOD SPECIMENOrdering Facility: [facility] Address:[address] [place], [place] [address]Performed By: #### 35707-0 ####[facility] LABIA [id number] [place], [place] [address]Aafidqenlb (Bld) [Mass/Vol]13.1 g/qQHnowau73.0-17.0[facility] on above: Order Comment: Specimen Type: BLOOD SPECIMENOrdering Facility: [facility] Address:[address] [place], [place] [address]Performed By: #### 29627- 8 ####[facility] LABIA [id number] [place], [place] [address]Crbcgxnq granulocytes (Bld) [#/Vol]0.07 10*3/uLNormal <0.10[facility] on above:Order Comment: Specimen Type: BLOOD SPECIMENOrdering Facility: [facility] Address:[address] [place], [place] [address]Performed By: #### 26544-4 ####[facility] LABIA [id number] [place], [place] [address]Zkxsxpxo granulocytes/100 WBC (Bld)0.7 %NormalCleveland Clinic on above: Order Comment: Specimen Type: BLOOD SPECIMENOrdering Facility: [facility] Address:[address] [place], [place] [address]Performed By: #### 92117- 8 ####[facility] LABIA [id number] [place], [place] [address]Vsijfjvducf (Bld) [#/Vol]1.29 10*3/uLNormal1.00-4.00 [facility] on above:Order Comment: Specimen Type: BLOOD SPECIMENOrdering Facility: [facility] Address:[address] [place], [place] [address]Performed By: #### 36863-6 ####[facility] LABCLIA [id number] [place], [place] [address]Htbqgsozvyy/100 WBC (Bld)13.4 %NormalCleveland Clinic on above:Order Comment: Specimen Type: BLOOD SPECIMENOrdering Facility: [facility] Address:[address] [place], [place] [address]Performed By: #### 46714-9 ####[facility] LABCLIA [id number] [place], [place] [address]QTD (RBC) [Entitic mass]26.7 izGqpvup03.0-34.0[facility] on above:Order Comment: Specimen Type: BLOOD SPECIMENOrdering Facility: [facility] Address:[address] [place], [place] [address]Performed By: #### 76504-4 ####[facility] LABCLIA [id number] [place], [place] [address]NXUO (RBC) [Mass/Vol]32.8 g/eRVvylyh91.5-36.0[facility] on above: Order Comment: Specimen Type: BLOOD SPECIMENOrdering Facility: [facility] Address:[address] [place], [place] [address]Performed By: #### 33101- 8 ####[facility] LABCLIA [id number] [place], [place] [address]BKY (RBC) [Entitic vol]81.4 uFWalpwc95.0-100.0[facility] on above:Order Comment: Specimen Type: BLOOD SPECIMENOrdering Facility: [facility] Address:[address] [place], [place] [address]Performed By: #### 77050-7 ####[facility] LABCLIA [id number] [place], [place] [address]Rrbhncfin (Bld) [#/Vol]0.74 10*3/uLNormal<0.87[facility] on above:Order Comment: Specimen Type: BLOOD SPECIMENOrdering Facility: [facility] Address:[address] [place], [place] [address]Performed By: #### 23257- 8 ####[facility] LABCLIA [id number] [place], [place] [address]Sunlompoj/100 WBC (Bld)7.7 %NormalCleveland Clinic on above:Order Comment: Specimen Type: BLOOD SPECIMENOrdering Facility: [facility] Address:[address] [place], [place] [address]Performed By: #### 32630-4 ####[facility] LABIA [id number] [place], [place] [address]Nkopeyxdhfa (Bld) [#/Vol]5.82 10*3/uLNormal1.45-7.50[facility] on above:Order Comment: Specimen Type: BLOOD SPECIMENOrdering Facility: [facility] Address:[address] [place], [place] [address]Performed By: #### 63026-6 ####[facility] LABCLIA [id number] [place], [place] [address]Inojukastoq/100 WBC (Bld)60.3 %NormalCleveland Clinic on above:Order Comment: Specimen Type: BLOOD SPECIMENOrdering Facility: [facility] Address:[address] [place], [place] [address]Performed By: #### 75259-8 ####[facility] LABIA [id number] [place], [place] [address]Tglbuqygi RBC (Bld) [#/Vol] 10*3/uLNormal<0.01[facility] on above:Order Comment: Specimen Type: BLOOD SPECIMENOrdering Facility: [facility] Address:[address] [place], [place] [address]Performed By: #### 41746-9 ####[facility] LABCLIA [id number] [place], [place] [address]Wzdsrfwtu RBC/100 WBC (Bld) [Ratio]0.0 /100 WBCNormal [facility] on above:Order Comment: Specimen Type: BLOOD SPECIMENOrdering Facility: [facility] Address:[address] [place], [place] [address]Performed By: #### 72661-5 ####[facility] LABCLIA [id number] [place], [place] [address]Wjkatidb mean volume (Bld) [Entitic vol]8.3 fLLow9.0-12.7CPremier Health [facility] on above:Order Comment: Specimen Type: BLOOD SPECIMENOrdering Facility: [facility] Address:[address] [place], [place] [address]Performed By: #### 68848-6 ####[facility] LABCLIA [id number] [place], [place] [address]Xozievurm (Bld) [#/Vol]226 10*3/qOZskoks052-383JlcjzdnmyCleveland Clinic on above:Order Comment: Specimen Type: BLOOD SPECIMENOrdering Facility: [facility] Address:[address] [place], [place] [address]Performed By: #### 33707-1 ####[facility] LABCLIA [id number] [place], [place] [address]VUU (Bld) [#/Vol]4.90 10*6/uLNormal4.20-6.00[facility] on above: Order Comment: Specimen Type: BLOOD SPECIMENOrdering Facility: [facility] Address:[address] [place], [place] [address]Performed By: #### 53804- 8 ####[facility] LABCLIA [id number] [place], [place] [address]MDE (Bld) [#/Vol]9.65 10*3/uLNormal3.70-11.00[facility] on above:Order Comment: Specimen Type: BLOOD SPECIMENOrdering Facility: [facility] Address:[address] [place], [place] [address]Performed By: #### 18503-9 ####[facility] LABCLIA [id number] [place], [place] [address]QBMKXZjz 01-69-3316LTZVAXPhsez (SP) Office (HEMAS[place]) CAITLIN ELMORE ([id number]) 1965 M Date Time Provider Department 05/29/25 9:20 AM LAKIA MEDINA During your visit today, we recorded the following information about you: Temperature Pulse Respiration Blood pressure 97.1 degrees 68/minute 16/minute 128/78 Weight Height 89.5 kg 1.791 m Lakia Medina MD 05/29/2025 9:23 AM Signed NAME: Juanjose Caitlin CLINIC NO.: [id number] DATE OF SERVICE: May 29, 2025 (Sascha) [...] received a total of 200 mg/m2 of [place] as well. PET with response 04/2023. CT [...] prior radiation therapy. - Continue current management. - CASE HISTORY: Reverse Chronological Order 05/29/2025 - [...] but are slightly larger compared to 05/03/2024 ex (more content not included)...NormalTrihealth [facility] 84-90-1836AFGHAfatwjvms ([facility]) CAITLIN ELMORE ([id number]) 1965 M Date Time Provider Department 05/29/25 LAKIA MEDINA During your visit today, we recorded the following information about you: Ellyn Mullins 05/29/2025 9:25 AM Signed Chiqui Modi RN 06/03/2025 9:41 AM Signed Pt notified that CT is stable Chiqui Modi RN Allergies As of Date: 05/29/2025 (No Known Allergies) Date Reviewed: 05/29/2025 Reviewed by: Danette Busch RN - Fully Assessed Reason for Visit: Results [95] Prescriptions as of 06/03/2025 - levothyroxine (SYNTHROID) 100 mcg tablet Take 1 tablet by mouth once daily. - famotidine (PEPCID) 20 mg tablet TAKE 1 TABLET BY MOUTH TWICE A DAY - pembrolizumab (KEYTRUDA INTRAVENOUS) Inject intravenously. - ondansetron (ZOFRAN) 8 mg tablet Take 1 tablet by mouth every 8 hours as needed for nausea/vomiting. - prochlorperazine (COMPAZINE) 10 mg tablet Take 1 tablet by mouth every 6 hours as needed. - tamsulosin (FLOMAX) 0.4 mg Take 0.4 mg by mouth. - amLODIPine (NORVASC) 10 mg tablet Take 10 mg by mouth once daily. - lisinopril (ZESTRIL, PRINIVIL) 40 mg tablet Take 40 mg by mouth once daily. - pravastatin (PRAVACHOL) 20 mg tablet Take 20 mg by mouth once daily. - ibuprofen (MOTRIN) 200 mg tablet Take 200 mg by mouth every 6 hours as needed. 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 Severe protein-calorie malnutrition (HCC) [E43] 12/19/2022 Former smoker [Z87.891] 05/14/2024 Hypothyroidism [E03.9] 05/14/2024 Adrenal insufficiency (HCC) [E27.40] 05/14/2024 HTN (hypertension) [I10] 05/14/2024 HLD (hyperlipidemia) [E78.5] 05/14/2024 CKD (chronic kidney disease) [N18.9] 05/14/2024 Adrenal hypofunction (HCC) [E27.40] 01/10/2025 Encounter Status:Closed by CHIQUI MODI on 06/03/25NoWyandot Memorial HospitalCORTISOL, SERUMon [id number] [Mass/Vol]13.1 ug/dL4.8 - 19.5 ug/dLWvumedicine Barnesville HospitalComment on above:Provided reference range is from 6-10 AM sample collection time. Cortisol Reference Range: 6-10 AM = 4.8-19.5 ug/dL, 4-8 PM = 2.5-11.9 ug/dL CT CHEST W IVCONon 54-01-3355HP CHEST W IVCON* * *Final Report* * * DATE OF EXAM: May 29 2025 8:27AM [facility] 0539 - CT CHEST W IVCON / PROCEDURE REASON: Malignant neoplasm of unspecified part of unspecified bronchus or lung (HCC) * * * * Physician Interpretation * * * * RESULT: EXAMINATION: CHEST CT WITH CONTRAST CLINICAL HISTORY: Malignant neoplasm of unspecified part of unspecified bronchus or lung (HCC) Technique: Spiral CT acquisition of the chest from the thoracic inlet to the upper abdomen following IV contrast. MQ: CTCW_6 Contrast: 100 mL Omnipaque [address] Radiation dose: Integrated Dose-length product (DLP) for this visit = 294 mGy*cm CT Dose Reduction Employed: Automated exposure control (AEC) Comparison: 02/20/2025 RESULT: Limitations: Mild breathing motion artifacts. Lines, tubes, and devices: None. Lung parenchyma and airways: Central right upper lobe mass has slightly decreased in size from 6 x 5 cm to 6 x 4.5 cm with increase of surrounding spiculations and architectural distortion/volume loss. The lesion was by 1.5 cm from the pleural surface, currently 2 cm, suggesting shrinking toward the right hilum. The underlying bronchial occlusion is stable. Lobulated right apical nodule has decreased in size from 15 mm to 10 mm. The findings likely represent the patient's known neoplasm with treatment effects and possible mild improvement. Inflammatory airway thickening is again seen bilaterally with associated patchy air trapping. Minimal upper lobe predominant emphysematous changes are seen. Few scattered pulmonary nodules are stable. Pleural space: Pleural thickening is seen bilaterally with no significant pleural effusion or pneumothorax. Lower neck, lymph nodes, and mediastinum: Obstruction of some of the bronchial branches in the right upper lobe, mildly increased. Central airways are otherwise patent. Thyroid is atrophic with no focal lesion. Slight decrease in size of small to borderline mediastinal and hilar nodes, likely reactive. Esophagus is grossly unremarkable except for mild nonspecific thickening. Heart, pericardium, and thoracic vessels: Normal sized heart with no pericardial effusion. Atherosclerotic calcifications are in the coronary arteries and aorta. [ ] Thoracic aorta, main pulmonary arteries and SVC are within normal in diameter. Bones and soft tissues: No mass, fluid collection or axillary adenopathy. Mild gynecomastia. Degenerative changes in the spine. No focal lytic or sclerotic osseous lesion. Upper abdomen: Reported separately. Localizer images: No additional information. IMPRESSION: Slight decrease in size and increase of architectural distortion associated with the central right upper lobe mass and decrease in size of right apical nodule. Considerations as detailed in the body of the report. Slight decrease in size of small to borderline mediastinal hilar nodes. No other significant interval change. Transcribe Date/Time: Jun 02 2025 1:11A Dictated by: SUSHNAT LEBLANC MD This examination was interpreted and the report reviewed and electronically signed by: SUSHANT LEBLANC MD on Jun 02 2025 1:29AM EST Thank you for allowing us to participate in the care of your patient. Should there be any questions regarding this interpretation, please call [phone]. If you are unable to reach us at the number above, please feel free to contact [facility] eRadiology at [phone]. [id number]hensive metabolic 2000 panelOrdered By: Boo Nava on 06-91-8417Gzlfjsp [Mass/Vol]4.1 g/dL3.9 - 4.9 g/dLWinston Salem ClinicALP [Catalytic activity/Vol]110 U/L38 - 113 U/LCleveland ClinicALT [Catalytic activity/Vol]9 U/LLow10 - 54 U/LCleveland ClinicAnion gap [Moles/Vol]10 mmol/L8 - 15 mmol/LCleveland ClinicAST [Catalytic activity/Vol]12 U/LLow14 - 40 U/LCleveland ClinicBilirubin [Mass/Vol]0.2 mg/dL0.2 - 1.3 mg/dL [place] ClinicCalcium [Mass/Vol]9.9 mg/dL8.5 - 10.2 mg/dLWinston Salem Clinic Chloride [Moles/Vol]105 mmol/L98 - 107 mmol/LCleveland ClinicCO2 [Moles/Vol]24 mmol/L22 - 30 mmol/LCleveland ClinicCreatinine [Mass/Vol]1.38 mg/dLHigh0.73 - 1.22 mg/dLCletrinity health system ClinicGFR/1.73 sq M.predicted among non-blacks MDRD (S/P/Bld) [Vol rate/Area]59 mL/min/{1.73_m2}Low- PINFCleveland ClinicComment on above:Estimated Glomerular Filtration Rate (eGFR) is calculated using the 2020 CKD-EPI creatinine equation. This equation utilizes serum creatinine, sex, and age as parameters. The creatinine assay has traceable calibration to isotope dilution-mass spectrometry. Refer to KDIGO guidelines for clinical inte rpretation. In patients with unstable renal function, e.g. those with acute kidney injury, the eGFRmay not accurately reflect actual GFR.Glucose [Mass/Vol] 110 mg/qEIgbx52 - 99 mg/dLWvumedicine Barnesville HospitalComment on above:The [place] Diabetes Association (ADA) provides guidance for cutoff [...] Standards of Medical Care in Diabetes 2016, [place] [employer]. Diabetes Care. 2016.39(Suppl 1). Interpretation and review of laboratory resultsAbnormalCleveland ClinicPotassium [Moles/Vol]4.1 mmol/L3.7 - 5.1 mmol/LCleveland ClinicProtein [Mass/Vol]6.7 g/dL 6.3 - 8.0 g/dLCleveland ClinicSodium [Moles/Vol]139 mmol/L136 - 144 mmol/L [place] ClinicUrea nitrogen [Mass/Vol]19 mg/dL9 - 24 mg/dLOhio State Health SystemComprehensive metabolic 2000 panelon 82-15-7341Gtddzho [Mass/Vol]4.1 g/dLNormal3.9-4.9CPremier Health Upper [facility] on above:Order Comment: Specimen Type: BLOOD SPECIMENOrdering Facility: [facility] Address:[address] [place], [place] [address]Performed By: #### 52779- 8 ####[facility] LABCLIA [id number] [place], [place] [address]ICD [Catalytic activity/Vol]110 U/DHqvawl13-771AcyuqssswCleveland Clinic on above:Order Comment: Specimen Type: BLOOD SPECIMENOrdering Facility: [facility] Address:[address] [place], [place] [address]Performed By: #### 07255-2 ####[facility] LABCLIA [id number] [place], [place] [address]QDK [Catalytic activity/Vol]9 U/YEsk44-69NpllihdfiCleveland Clinic on above:Order Comment: Specimen Type: BLOOD SPECIMENOrdering Facility: [facility] Address:[address] [place], [place] [address]Performed By: #### 90816- 8 ####[facility] LABCLIA [id number] [place], [place] [address]Mdhoa gap [Moles/Vol]10 mmol/LNormal8-15[facility] on above:Order Comment: Specimen Type: BLOOD SPECIMENOrdering Facility: [facility] Address:[address] [place], [place] [address]Performed By: #### 67997-7 ####[facility] LABIA [id number] [place], [place] [address]AFA [Catalytic activity/Vol]12 U/JTso24-17WmnhxxmlvCleveland Clinic on above:Order Comment: Specimen Type: BLOOD SPECIMENOrdering Facility: [facility] Address:[address] [place], [place] [address]Performed By: #### 86855-3 ####[facility] LABCLIA [id number] [place] [address] Bilirubin [Mass/Vol]0.2 mg/dLNormal0.2-1.3CPremier Health Upper Valley [facility] Center on above:Order Comment: Specimen Type: BLOOD SPECIMENOrdering Facility: [facility] Address:[address] [place], [place] [address]Performed By: #### 34480-4 ####[facility] LABCLIA [id number] [place], [place] [address]Gztrpif [Mass/Vol]9.9 mg/dLNormal8.5-10.2CPremier Health Upper Valley [facility] Center on above:Order Comment: Specimen Type: BLOOD SPECIMENOrdering Facility: [facility] Address:[address] [place], [place] [address]Performed By: #### 90687-3 ####[facility] LABCLIA [id number] [place], [place] [address]Coparxxt [Moles/Vol]105 mmol/BVwcwpo23-367SkmflvjdyCleveland Clinic on above: Order Comment: Specimen Type: BLOOD SPECIMENOrdering Facility: [facility] Address:[address] [place], [place] [address]Performed By: #### 29848- 8 ####[facility] LABCLIA [id number] [facility] [place], [place] [address]XZ1 [Moles/Vol]24 mmol/BSujnga92-89FyfzeywpxCleveland Clinic on above:Order Comment: Specimen Type: BLOOD SPECIMENOrdering Facility: [facility] Address:[address] [place], [place] [address]Performed By: #### 92974-7 ####[facility] LABCLIA [id number] [place], [place] [address]Oiybilpweq [Mass/Vol]1.38 mg/dL High0.73-1.22[facility] on above:Order Comment: Specimen Type: BLOOD SPECIMENOrdering Facility: [facility] Address:[address] [place], [place] [address]Performed By: #### 16593-7 ####[facility] LABCLIA [id number] [place] [address] eGFRcr SerPlBld CKD-EPI 693495 mL/min/1.73m???Low>=60[facility] Comment on above:Order Comment: Specimen Type: BLOOD SPECIMENOrdering Facility: [facility] Address:[address] [place] [address]Ukyoiu Comment: Estimated Glomerular Filtration Rate (eGFR) is calculated using the 2020 CKD-EPI creatinine equation. This equation utilizes serum creatinine, sex, and age as parameters. The creatinine assay has traceable calibration to isotope dilution-mass spectrometry. Refer to KDIGO guidelines for clinical interpretation. In patients with unstable renal function, e.g. those with acute kidney injury, the eGFR may not accurately reflect actual GFR.Performed By: #### 17218-6 ####[facility] LABCLIA [id number] [place], [place] [address]Qtiqvvv [Mass/Vol]110 mg/lBGjlm51-17BotjsxcxkCleveland Clinic on above:Order Comment: Specimen Type: BLOOD SPECIMENOrdering Facility: [facility] Address:[address] [place], [place] [address]Result Comment: The [place] Diabetes Association (ADA) provides guidance for cutoff values for fasting glucose and random glucose. The ADA defines fasting as no caloric intake for at least 8 hours. Fasting plasma glucose results between 100 to 125 mg/dL indicate increased risk for diabetes (prediab etes). Fasting plasma glucose results greater than or [...] Standards of Medical Care in Diabetes 2016, [place] [employer] Association. Diabetes Care. 2016.39(Suppl 1).Performed By: #### 76414-1 ####[facility] LABCLIA [id number] [place], [place] [address]Gkewuviwx [Moles/Vol]4.1 mmol/LNormal3.7-5.1CPremier Health Upper [facility] on above:Order Comment: Specimen Type: BLOOD SPECIMENOrdering Facility: [facility] Address:[address] [place], [place] [address]Performed By: #### 07293-9 ####[facility] LABCLIA [id number] [place], [place] [address]Bpiumxk [Mass/Vol]6.7 g/dLNormal6.3-8.0[facility] on above:Order Comment: Specimen Type: BLOOD SPECIMENOrdering Facility: [facility] Address:[address] [place], [place] [address]Performed By: #### 05643- 8 ####[facility] LABCLIA [id number] [place], [place] [address]Cavdae [Moles/Vol]139 mmol/RYpbdbo753-712HruljdnpnCleveland Clinic on above:Order Comment: Specimen Type: BLOOD SPECIMENOrdering Facility: [facility] Address:[address] [place], [place] [address]Performed By: #### 73504-2 ####[facility] LABCLIA [id number] [place], [place] [address]Agyg nitrogen [Mass/Vol]19 mg/dLNormal9-24[facility] on above:Order Comment: Specimen Type: BLOOD SPECIMENOrdering Facility: [facility] Address:[address] [place], [place] [address]Performed By: #### 58137-8 ####[facility] LABCLIA [id number] [place], [place] [address]Xxmikr [place] 50-19-0154Lmlqklcq [Mass/Vol]13.1 ug/dLNormal4.8-19.5CPremier Health Upper Valley [facility] on above:Order Comment: Specimen Type: BLOOD SPECIMENOrdering Facility: [facility] Address:[address] [place] [address]Dlvbfh Comment: Provided reference range is from 6-10 AM sample collection time. Cortisol Reference Range: 6-10 AM = 4.8-19.5 ug/dL, 4-8 PM = 2.5-11.9 ug/dL Performed By: #### 3016-3, 2143-6 ####[facility] LABCLIA [id number] [address] [facility] HbA1c (Bld)on 10-16-4147Sfxznbo glucose Estimated from glycated hemoglobin (Bld) [Mass/Vol]114 mg/dLUniversity Hospitals Elyria Medical Center on above:eAG: (Estimated average glucose) is a calculated value from HgbA1c and is market survey representative of the average blood glucose level in the last 2-3 month period.HbA1c (Bld) [Mass fraction]5.6 %4.3 - 5.6 %[facility] on above:[place] Diabetes Association guidelines indicate that patients with HgbA1c in the range 5.7-6.4% are at increased risk for development of diabetes, and intervention by lifestyle modification may be beneficial. HgbA1c greater or equal to 6.5% is considered diagnostic of diabetes.[facility] glucose Estimated from glycated hemoglobin (Bld) [Mass/Vol]114 mg/dLNormalCPremier Health [facility] on above:Order Comment: Specimen Type: BLOOD SPECIMENOrdering Facility: [facility] Address:[address] [place], [place] [address]Lrmtar Comment: eAG: (Estimated average glucose) is a calculated value from HgbA1c and is market survey representative of the average blood glucose level in the last 2-3 month period. Performed By: #### 17030-0 ####[facility] LABCLIA [id number] [place] [id number] [place] [place] HbA1c (Bld) [Mass fraction]5.6 %Normal4.3-5.6CPremier [facility] on above:Order Comment: Specimen Type: BLOOD SPECIMENOrdering Facility: [facility] Address:[address] [address]Result Comment: [place] [employer] Association guidelines indicate that patients with HgbA1c in the range 5.7-6.4% are at increased risk for development of diabetes, and intervention by lifestyle modification may be beneficial. HgbA1c greater or equal to 6.5% is considered diagnostic of diabetes.Performed By: #### 64559-9 ####[facility] LABCLIA [id number] [address] Panel Informationon 05-29-2025 Interpretation and review of laboratory resultsNormalCUniversity Hospitals Samaritan Medical CenterTHYROID STIMULATING HORMONEon 72-21-6630ORZ Qn2.890 m[IU]/LClevelJackson Medical Center SerPl-aCncon 64-78-6110SYR Qn2.890 m[IU]/LNormal0.270-4.200[facility] on above:Order Comment: Specimen Type: BLOOD SPECIMENOrdering Facility: [facility] Address:[address] HEALTHJAZMIN [place], [place] [address]Performed By: #### 3016-3, 2143-6 ####[facility] LABCLIA [id number] [address]CNPNon [id number] (HEMASA) CAITLIN ELMORE ([id number]) 1965 M Date Time Provider Department 05/06/25 LAKIA MEDINA During your visit today, we recorded the following information about you: Norm Richards MA 05/06/2025 4:10 PM Signed Linda Lu APRN-[facility] is requesting a Statement from Physician to be sent 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 Also stating that his condition is stable with treatment. The form to fax back with letter is at [place] station. Thanks, ABHINAV Rojas Tiffany G, RN 05/07/2025 9:14 AM Signed Speedy: please dictate letter. Thanks ONELIA Maddox Vivek, MD 05/08/2025 8:33 AM Signed Letter sent to you Norm Richards MA 05/09/2025 8:38 AM Signed Faxed to [facility] at [phone]. Allergies As of Date: 05/06/2025 (No Known Allergies) Date Reviewed: 04/18/2025 Reviewed by: Gabriella Chapin RN - Fully Assessed Reason for Visit: Forms/letter [4545] Prescriptions as of 05/09/2025 - famotidine (PEPCID) 20 mg tablet TAKE 1 TABLET BY MOUTH TWICE A DAY - levothyroxine (SYNTHROID) 100 mcg tablet Take 1 tablet by mouth once daily. - pembrolizumab (KEYTRUDA INTRAVENOUS) Inject intravenously. - levothyroxine (SYNTHROID) 88 mcg tablet Take 1 tablet by mouth once daily. - ondansetron (ZOFRAN) 8 mg tablet Take 1 tablet by mouth every 8 hours as needed for nausea/vomiting. - prochlorperazine (COMPAZINE) 10 mg tablet Take 1 tablet by mouth every 6 hours as needed. - tamsulosin (FLOMAX) 0.4 mg Take 0.4 mg by mouth. - amLODIPine (NORVASC) 10 mg tablet Take 10 mg by mouth once daily. - lisinopril (ZESTRIL, PRINIVIL) 40 mg tablet Take 40 mg by mouth once daily. - pravastatin (PRAVACHOL) 20 mg tablet Take 20 mg by mouth once daily. - ibuprofen (MOTRIN) 200 mg tablet Take 200 mg by mouth every 6 hours as needed. 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 Severe protein-calorie malnutrition (HCC) [E43] 12/19/2022 Former smoker [Z87.891] 05/14/2024 Hypothyroidism [E03.9] 05/14/2024 Adrenal insufficiency (HCC) [E27.40] 05/14/2024 HTN (hypertension) [I10] 05/14/2024 HLD (hyperlipidemia) [E78.5] 05/14/2024 CKD (chronic kidney disease) [N18.9] 05/14/2024 Adrenal hypofunction (HCC) [E27.40] 01/10/2025 Encounter Status:Closed by NORM RICHARDS on 05/09/25NormalCLima [facility] W Auto Differential panel (Bld)on 75-48-1065Hewxfcidm (Bld) [#/Vol] 0.04 10*3/uLNINFWvumedicine Barnesville HospitalBasophils/100 WBC (Bld)0.4 %[facility] Differential cell count method Nom (Bld)AutoCleveland ClinicEosinophils (Bld) [#/Vol]2.18 10*3/uLHighNINFWvumedicine Barnesville HospitalEosinophils/100 WBC (Bld)24.2 % [facility] HospitalErythrocyte distribution width (RBC) [Ratio]13.8 %11.5 - 15.0 % [facility] HospitalHematocrit (Bld) [Volume fraction]36.4 %Low39.0 - 51.0 % [facility] HospitalHemoglobin (Bld) [Mass/Vol]12 g/dLLow13.0 - 17.0 g/dLWvumedicine Barnesville HospitalImmature granulocytes (Bld) [#/Vol]NINFCleveland Elbow Lake Medical CenterImmature granulocytes/100 WBC (Bld)0.2 %[facility] HospitalInterpretation and review of laboratory resultsAbnormalCleveland ClinicLymphocytes (Bld) [#/Vol]1.14 10*3/uL [facility] HospitalLymphocytes/100 WBC (Bld)12.7 %[facility] CenterH (RBC) [Entitic mass]27 pg26.0 - 34.0 pgClevelFederal Medical Center, RochesterHC (RBC) [Mass/Vol]33 g/dL 30.5 - 36.0 g/dLWvumedicine Barnesville HospitalMCV (RBC) [Entitic vol]81.8 fL80.0 - 100.0 fL [facility] HospitalMonocytes (Bld) [#/Vol]0.63 10*3/uLNINFWvumedicine Barnesville Hospital Monocytes/100 WBC (Bld)7 %[facility] HospitalNeutrophils (Bld) [#/Vol]5 10*3/uL [facility] HospitalNeutrophils/100 WBC (Bld)55.5 %[facility] HospitalNucleated RBC (Bld) [#/Vol]NINFCOhioHealth O'Bleness HospitalNucleated RBC/100 WBC (Bld) [Ratio]0 %/100 WBC [facility] HospitalPlatelet mean volume (Bld) [Entitic vol]8.4 fLLow9.0 - 12.7 fL [facility] HospitalPlatelets (Bld) [#/Vol]192 10*3/uLWvumedicine Barnesville HospitalRBC (Bld) [#/Vol]4.45 10*6/uL4.20 - 6.00 m/[facility] Anthony's HospitalWBC (Bld) [#/Vol]9.01 10*3/uL [facility] ClinicBasophils (Bld) [#/Vol]0.04 10*3/uLNormal<0.11 [facility] on above:Order Comment: Specimen Type: BLOOD SPECIMENOrdering Facility: [facility] Address:[address] [place], [place] [address]Performed By: #### 15983-1 ####[facility] LABIA [id number] [place], [place] [address]Ceewopwxc/100 WBC (Bld)0.4 %NormalCleveland Clinic on above:Order Comment: Specimen Type: BLOOD SPECIMENOrdering Facility: [facility] Address:[address] [place], [place] [address]Performed By: #### 82274-1 ####[facility] LABCLIA [id number] [place], [place] [address]Zojfmcgqzrsa cell count method Nom (Bld)AutoNormal [facility] on above:Order Comment: Specimen Type: BLOOD SPECIMENOrdering Facility: [facility] Address:[address] [place], [place] [address]Performed By: #### 28989-2 ####[facility] LABIA [id number] [place], [place] [address]Loiedylibrs (Bld) [#/Vol]2.18 10*3/uLHigh<0.46[facility] on above: Order Comment: Specimen Type: BLOOD SPECIMENOrdering Facility: [facility] Address:[address] [place], [place] [address]Performed By: #### 14685- 8 ####[facility] LABIA [id number] [place], [place] [address]Sajzjkcydie/100 WBC (Bld)24.2 %NormalCleveland Clinic on above:Order Comment: Specimen Type: BLOOD SPECIMENOrdering Facility: [facility] Address:[address] [place], [place] [address]Performed By: #### 60733-2 ####[facility] LABIA [id number] [place], [place] [address]Qfksultpugc distribution width (RBC) [Ratio]13.8 %Dnogmw43.5-15.0[facility] on above: Order Comment: Specimen Type: BLOOD SPECIMENOrdering Facility: [facility] Address:[address] [place], [place] [address]Performed By: #### 08366- 8 ####[facility] LABCLIA [id number] [place], [place] [address]Fcqjipqyvs (Bld) [Volume fraction]36.4 %Low39.0-51.0 [facility] on above:Order Comment: Specimen Type: BLOOD SPECIMENOrdering Facility: [facility] Address:[address] [place], [place] [address]Performed By: #### 18350-9 ####[facility] LABCLIA [id number] [place], [place] [address]Emoafdwgms (Bld) [Mass/Vol]12.0 g/dLLow13.0-17.0[facility] on above:Order Comment: Specimen Type: BLOOD SPECIMENOrdering Facility: [facility] Address:[address] [place], [place] [address]Performed By: #### 07264- 8 ####[facility] LABCLIA [id number] [place], [place] [address]Kxpcmbmy granulocytes (Bld) [#/Vol]10*3/uLNormal<0.10 [facility] on above:Order Comment: Specimen Type: BLOOD SPECIMENOrdering Facility: [facility] Address:[address] [place], [place] [address]Performed By: #### 85119-2 ####[facility] LABIA [id number] [place], [place] [address]Uuphvxnv granulocytes/100 WBC (Bld)0.2 %NormalCleveland Clinic on above: Order Comment: Specimen Type: BLOOD SPECIMENOrdering Facility: [facility] Address:[address] [place], [place] [address]Performed By: #### 10173- 8 ####[facility] LABCLIA [id number] [place], [place] [address]Twnpfyzghfy (Bld) [#/Vol]1.14 10*3/uLNormal1.00-4.00 [facility] on above:Order Comment: Specimen Type: BLOOD SPECIMENOrdering Facility: [facility] Address:[address] [place], [place] [address]Performed By: #### 19620-4 ####[facility] LABIA [id number] [place], [place] [address]Zqgeatzpztr/100 WBC (Bld)12.7 %NormalCleveland Clinic on above:Order Comment: Specimen Type: BLOOD SPECIMENOrdering Facility: [facility] Address:[address] [place], [place] [address]Performed By: #### 56052-2 ####[facility] LABCLIA [id number] [place], [place] [address]GWC (RBC) [Entitic mass]27.0 xbOupqdt78.0-34.0[facility] on above:Order Comment: Specimen Type: BLOOD SPECIMENOrdering Facility: [facility] Address:[address] [place], [place] [address]Performed By: #### 11685-0 ####[facility] LABCLIA [id number] [place], [place] [address]ECBB (RBC) [Mass/Vol]33.0 g/yDIfaskl25.5-36.0[facility] on above: Order Comment: Specimen Type: BLOOD SPECIMENOrdering Facility: [facility] Address:[address] [place], [place] [address]Performed By: #### 17058- 8 ####[facility] LABCLIA [id number] [place], [place] [address]ZAI (RBC) [Entitic vol]81.8 gBDtefgr69.0-100.0[facility] on above:Order Comment: Specimen Type: BLOOD SPECIMENOrdering Facility: [facility] Address:[address] [place], [place] [address]Performed By: #### 12368-5 ####[facility] LABCLIA [id number] [place], [place] [address]Pcgrrecye (Bld) [#/Vol]0.63 10*3/uLNormal<0.87[facility] on above:Order Comment: Specimen Type: BLOOD SPECIMENOrdering Facility: [facility] Address:[address] [place], [place] [address]Performed By: #### 89737- 8 ####[facility] LABCLIA [id number] [place], [place] [address]Mtewjbqcv/100 WBC (Bld)7.0 %NormalCleveland Clinic on above:Order Comment: Specimen Type: BLOOD SPECIMENOrdering Facility: [facility] Address:[address] [place], [place] [address]Performed By: #### 90976-9 ####[facility] LABCLIA [id number] [place], [place] [address]Zpujviqvwte (Bld) [#/Vol]5.00 10*3/uLNormal1.45-7.50[facility] on above:Order Comment: Specimen Type: BLOOD SPECIMENOrdering Facility: [facility] Address:[address] [place], [place] [address]Performed By: #### 84197-9 ####[facility] LABCLIA [id number] [place], [place] [address]Acbierjogaf/100 WBC (Bld)55.5 %NormalCleveland Clinic on above:Order Comment: Specimen Type: BLOOD SPECIMENOrdering Facility: [facility] Address:[address] [place], [place] [address]Performed By: #### 92551-2 ####[facility] LABCLIA [id number] [place], [place] [address]Wbfjckygs RBC (Bld) [#/Vol] 10*3/uLNormal<0.01[facility] on above:Order Comment: Specimen Type: BLOOD SPECIMENOrdering Facility: [facility] Address:[address] [place], [place] [address]Performed By: #### 32069-7 ####[facility] LABIA [id number] [place], [place] [address]Zfrglnjco RBC/100 WBC (Bld) [Ratio]0.0 /100 WBCNormal [facility] on above:Order Comment: Specimen Type: BLOOD SPECIMENOrdering Facility: [facility] Address:[address] [place], [place] [address]Performed By: #### 74363-5 ####[facility] LABCLIA [id number] [place], [place] [address]Cfvdnegp mean volume (Bld) [Entitic vol]8.4 fLLow9.0-12.7CPremier [facility] on above:Order Comment: Specimen Type: BLOOD SPECIMENOrdering Facility: [facility] Address:[address] [place], [place] [address]Performed By: #### 80138-6 ####[facility] LABCLIA [id number] [place], [place] [address]Nasrdvszh (Bld) [#/Vol]192 10*3/iWMuzaqz884-883SatujdntdCleveland Clinic on above:Order Comment: Specimen Type: BLOOD SPECIMENOrdering Facility: [facility] Address:[address] [place], [place] [address]Performed By: #### 85238-2 ####[facility] LABCLIA [id number] [place], [place] [address]LWX (Bld) [#/Vol]4.45 10*6/uLNormal4.20-6.00[facility] on above: Order Comment: Specimen Type: BLOOD SPECIMENOrdering Facility: [facility] Address:[address] [place], [place] [address]Performed By: #### 35247- 8 ####[facility] LABCLIA [id number] [place], [place] [address]GQV (Bld) [#/Vol]9.01 10*3/uLNormal3.70-11.00[facility] on above:Order Comment: Specimen Type: BLOOD SPECIMENOrdering Facility: [facility] Address:[address] [place], [place] [address]Performed By: #### 29848-5 ####[facility] LABCLIA [id number] [place], [place] [address]Wnqnfsdssnoai metabolic 2000 panelOrdered By: Boo Nava on 11-93-5113[place] [Mass/Vol]4.1 g/dL3.9 - 4.9 g/dLCletrinity health system ClinicALP [Catalytic activity/Vol]99 U/L38 - 113 U/L [facility] ClinicALT [Catalytic activity/Vol]9 U/LLow10 - 54 U/LC[facility] Anion gap [Moles/Vol]10 mmol/L8 - 15 mmol/LCleveland ClinicAST [Catalytic activity/Vol]11 U/LLow14 - 40 U/LCleveland ClinicBilirubin [Mass/Vol]0.3 mg/dL 0.2 - 1.3 mg/dLCletrinity health system ClinicCalcium [Mass/Vol]9.6 mg/dL8.5 - 10.2 mg/dL [facility] ClinicChloride [Moles/Vol]104 mmol/L98 - 107 mmol/LCleveland ClinicCO2 [Moles/Vol]24 mmol/L22 - 30 mmol/LCleveland ClinicCreatinine [Mass/Vol]1.61 mg/dLHigh0.73 - 1.22 mg/dLCletrinity health system ClinicGFR/1.73 sq M.predicted among non- blacks MDRD (S/P/Bld) [Vol rate/Area]49 mL/min/{1.73_m2}Low- PINFCleveland ClinicComment on above:Estimated Glomerular Filtration Rate (eGFR) is calculated using the 2020 CKD-EPI creatinine equation. This equation utilizes serum creatinine, sex, and age as parameters. The creatinine assay has traceable calibration to isotope dilution-mass spectrometry. Refer to KDIGO guidelines for clinical interpretation. In patients with unstable renal function, e.g. those with acute kidney injury, the eGFRmay not accurately reflect actual GFR.Glucose [Mass/Vol]114 mg/wHWnkv00 - 99 mg/dLWvumedicine Barnesville HospitalComment on above:The [place] Diabetes Association (ADA) provides guidance for cutoff [...] Standards of Medical Care in Diabetes 2016, [place] [employer] Association. Diabetes Care. 2016.39(Suppl 1). Interpretation and review of laboratory resultsAbnormalCleveland ClinicPotassium [Moles/Vol]3.9 mmol/L3.7 - 5.1 mmol/LClevelcritical access hospital ClinicProtein [Mass/Vol]6.6 g/dL 6.3 - 8.0 g/dLWinston Salem ClinicSodium [Moles/Vol]138 mmol/L136 - 144 mmol/L [facility] HospitalUrea nitrogen [Mass/Vol]19 mg/dL9 - 24 mg/dLOhio State Health SystemComprehensive metabolic 2000 panelon 97-81-5490Akzqbxa [Mass/Vol]4.1 g/dLNormal3.9-4.9CPremier [facility] on above:Order Comment: Specimen Type: BLOOD SPECIMENOrdering Facility: [facility] Address:[address] [place], [place] [address]Performed By: #### 57085- 8 ####[facility] LABCLIA [id number] [place], [place] [address]MTO [Catalytic activity/Vol]99 U/XMdeyyx73-541EspmrkvfnCleveland Clinic on above:Order Comment: Specimen Type: BLOOD SPECIMENOrdering Facility: [facility] Address:[address] [place], [place] [address]Performed By: #### 69127-4 ####[facility] LABCLIA [id number] [place], [place] [address]YLK [Catalytic activity/Vol]9 U/BCzz35-01GekicxridCleveland Clinic on above:Order Comment: Specimen Type: BLOOD SPECIMENOrdering Facility: [facility] Address:[address] [place], [place] [address]Performed By: #### 19895- 8 ####[facility] LABCLIA [id number] [facility] CENTERSTEPHANIE BONNERBANNER CARDON CHILDREN'S MEDICAL CENTERJILLIANSTRONG, [place] [address]Jtxzg gap [Moles/Vol]10 mmol/LNormal8-15[facility] on above:Order Comment: Specimen Type: BLOOD SPECIMENOrdering Facility: [facility] Address:[address] [place], [place] [address]Performed By: #### 94317-5 ####[facility] LABCLIA [id number] EDY ASHRAFBANNER CARDON CHILDREN'S MEDICAL CENTERJILLIANSTRONG, [place] [address]IPH [Catalytic activity/Vol]11 U/KMol73-65UzypjqrwcCleveland Clinic on above:Order Comment: Specimen Type: BLOOD SPECIMENOrdering Facility: [facility] Address:[address] [place], [place] [address]Performed By: #### 79655-7 ####[facility] LABCLIA [id number] [facility] [place] [address] Bilirubin [Mass/Vol]0.3 mg/dLNormal0.2-1.3CPremier Health [facility] on above:Order Comment: Specimen Type: BLOOD SPECIMENOrdering Facility: [facility] Address:[address] [place], [place] [address]Performed By: #### 53242-2 ####[facility] LABCLIA [id number] [facility] [place], [place] [address]Xnzvgfd [Mass/Vol]9.6 mg/dLNormal8.5-10.2CPrem[facility] on above:Order Comment: Specimen Type: BLOOD SPECIMENOrdering Facility: [facility] Address:[address] [place], [place] [address]Performed By: #### 68286-4 ####[facility] LABIA [id number] [facility] DARYLNITISHBANNER CARDON CHILDREN'S MEDICAL CENTERRYANTOWNER, [place] [address]Aapciboo [Moles/Vol]104 mmol/AYazvdn21-372DugwqsrtvCleveland Clinic on above: Order Comment: Specimen Type: BLOOD SPECIMENOrdering Facility: [facility] Address:[address] [place], [place] [address]Performed By: #### 14270- 8 ####[facility] LABCLIA [id number] [place], [place] [address]XV3 [Moles/Vol]24 mmol/BLorfcf72-78TnlmvxwimCleveland Clinic on above:Order Comment: Specimen Type: BLOOD SPECIMENOrdering Facility: [facility] Address:[address] [place], [place] [address]Performed By: #### 51577-2 ####[facility] LABCLIA [id number] [place], [place] [address]Tyoxjskunn [Mass/Vol]1.61 mg/dL High0.73-1.22[facility] on above:Order Comment: Specimen Type: BLOOD SPECIMENOrdering Facility: [facility] Address:[address] [place], [place] [address]Performed By: #### 94676-7 ####[facility] LABIA [id number] [place] [address] Creatinine and Glomerular filtration rate.predicted panel (S/P/Bld)49 mL/min/1.73m???Low>=60[facility] on above:Order Comment: Specimen Type: BLOOD SPECIMENOrdering Facility: [facility] Address:[address] [place], [place] [address]Result Comment: Estimated Glomerular Filtration Rate (eGFR) is calculated using the 2020 CKD-EPI creatinine equation. This equation utilizes serum creatinine, sex, and age as parameters. The creatinine assay has traceable calibration to isotope dilution-mass spectrometry. Refer to KDIGO guidelines for clinical interpretation. In patients with unstable renal function, e.g. those with acute kidney injury, the eGFR may not accurately reflect actual GFR.Performed By: #### 03211-3 ####[facility] LABIA [id number] [place] [address] Glucose [Mass/Vol]114 mg/nNStpc60-26AqhbyolrjCleveland Clinic on above: Order Comment: Specimen Type: BLOOD SPECIMENOrdering Facility: [facility] Address:[address] [place], [place] [address]Result Comment: The [place] Diabetes Association (ADA) provides guidance for cutoff values for fast ing glucose and random glucose. The ADA defines [...] Standards of Medical Care in Diabetes 2016, [place] [employer]. Diabetes Care. 2016.39(Suppl 1).Performed By: #### 91731-8 ####[facility] LABCLIA [id number] [place], [place] [address]Dpvvjiejr [Moles/Vol]3.9 mmol/LNormal3.7-5.1CPremier Health [facility] on above:Order Comment: Specimen Type: BLOOD SPECIMENOrdering Facility: [facility] Address:[address] [place], [place] [address]Performed By: #### 14221-3 ####[facility] LABCLIA [id number] [place], [place] [address]Zvjzabt [Mass/Vol]6.6 g/dLNormal6.3-8.0[facility] on above:Order Comment: Specimen Type: BLOOD SPECIMENOrdering Facility: [facility] Address:[address] [place], [place] [address]Performed By: #### 06666- 8 ####[facility] LABCLIA [id number] [place], [place] [address]Cylbqe [Moles/Vol]138 mmol/BWzwkac627-939YyyietavpCleveland Clinic on above:Order Comment: Specimen Type: BLOOD SPECIMENOrdering Facility: [facility] Address:[address] [place], [place] [address]Performed By: #### 72366-1 ####[facility] LABCLIA [id number] [place], [place] [address]Hihc nitrogen [Mass/Vol]19 mg/dLNormal9-24[facility] on above:Order Comment: Specimen Type: BLOOD SPECIMENOrdering Facility: [facility] Address:[address] [place], [place] [address]Performed By: #### 96950-1 ####[facility] LABCLIA [id number] [place], [place] [address]Lfqith SerPl-mCncon 75-51-6256Oumzivkx [Mass/Vol]8.9 ug/dLNormal4.8-19.5CPremier Health [facility] on above:Order Comment: Specimen Type: BLOOD SPECIMENOrdering Facility: [facility] Address:[address] [place], [place] [address]Result Comment: Provided reference range is from 6-10 AM sample collection time. Cortisol Reference Range: 6-10 AM = 4.8-19.5 ug/dL, 4-8 PM = 2.5-11.9 ug/dL Performed By: #### 3016-3, 2143-6 ####[facility] LABIA [id number] [address] [facility] HbA1c (Bld)on 64-36-6948Wwvnbog glucose Estimated from glycated hemoglobin (Bld) [Mass/Vol]97 mg/dLNormalCPremier Health [facility] on above:Order Comment: Specimen Type: BLOOD SPECIMENOrdering Facility: [facility] Address:[address] [place], [place] [address]Result Comment: eAG: (Estimated average glucose) is a calculated value from HgbA1c and is representa tive of the average blood glucose level in the last 2-3 month period.Performed By: #### 23024-0 ####[facility] LABIA [id number] [address] STATES [place] TIXWMKCCxH4e (Bld) [Mass fraction]5.0 %Normal4.3-5.6CPremier Health [facility] on above:Order Comment: Specimen Type: BLOOD SPECIMENOrdering Facility: [facility] Address:[address] [place], [place] [address]Result Comment: [place] Diabetes Association guidelines indicate that patients with HgbA1c in the range 5.7-6.4% are at increased risk for development of diabetes, and intervention by lifestyle modification may be beneficial. HgbA1c greater or equal to 6.5% is considered diagnostic of diabetes.Performed By: #### 13082-9 ####[facility] LABCLIA [id number] [address] SerPl-aCncon 32-14-7110JYT Qn2.470 m[IU]/L Normal0.270-4.200[facility] on above:Order Comment: Specimen Type: BLOOD SPECIMENOrdering Facility: [facility] Address:[address] [place], [place] [address]Performed By: #### 3016-3, 2143-6 ####[facility] LABCLIA [id number] [address] Auto Differential panel (Bld)on [id number] (Bld) [#/Vol]0.04 10*3/uLNormal<0.11CPremier [facility] on above:Order Comment: Specimen Type: BLOOD SPECIMENOrdering Facility: [facility] Address:[address] [place], [place] [address]Performed By: #### 38916-0 ####[facility] LABCLIA [id number] [place], [place] [address]Uazpporvy/100 WBC (Bld)0.4 % NormalCleveland Clinic on above:Order Comment: Specimen Type: BLOOD SPECIMENOrdering Facility: [facility] Address:[address] [place], [place] [address]Performed By: #### 97317-9 ####[facility] LABCLIA [id number] [place] [address] Differential cell count method Nom (Bld)AutoNormalClevelCape Fear Valley Medical Center Comment on above:Order Comment: Specimen Type: BLOOD SPECIMENOrdering Facility: [facility] Address:[address] [place] [address] Performed By: #### 79482-4 ####[facility] LABCLIA [id number] [place], [place] [address]Swtneduczib (Bld) [#/Vol]0.68 10*3/uLHigh<0.46[facility] on above:Order Comment: Specimen Type: BLOOD SPECIMENOrdering Facility: [facility] Address:[address] [place], [place] [address]Performed By: #### 10626-1 ####[facility] LABIA [id number] [place], [place] [address]Mkxgydiksno/100 WBC (Bld)7.4 %NormalMercer County Community Hospitalment on above:Order Comment: Specimen Type: BLOOD SPECIMENOrdering Facility: [facility] Address:[address] [place], [place] [address]Performed By: #### 16196-7 ####[facility] LABIA [id number] [place], [place] [address]Rnhmfegdboe distribution width (RBC) [Ratio]13.3 %Jrqddm59.5-15.0[facility] on above: Order Comment: Specimen Type: BLOOD SPECIMENOrdering Facility: [facility] Address:[address] [place], [place] [address]Performed By: #### 73636- 8 ####[facility] LABIA [id number] [place], [place] [address]Skkmclilro (Bld) [Volume fraction]40.1 %Uyaekl12.0-51.0 [facility] on above:Order Comment: Specimen Type: BLOOD SPECIMENOrdering Facility: [facility] Address:[address] [place], [place] [address]Performed By: #### 26528-9 ####[facility] LABIA [id number] [place], [place] [address]Ngieyoysuo (Bld) [Mass/Vol]12.9 g/dLLow13.0-17.0[facility] on above:Order Comment: Specimen Type: BLOOD SPECIMENOrdering Facility: [facility] Address:[address] [place], [place] [address]Performed By: #### 15664- 8 ####[facility] LABIA [id number] [place], [place] [address]Emhpffce granulocytes (Bld) [#/Vol]0.03 10*3/uLNormal <0.10[facility] on above:Order Comment: Specimen Type: BLOOD SPECIMENOrdering Facility: [facility] Address:[address] [place], [place] [address]Performed By: #### 36142-6 ####[facility] LABIA [id number] [place], [place] [address]Pqstzauw granulocytes/100 WBC (Bld)0.3 %NormalCleveland Clinic on above: Order Comment: Specimen Type: BLOOD SPECIMENOrdering Facility: [facility] Address:[address] [place], [place] [address]Performed By: #### 64725- 8 ####[facility] LABIA [id number] [place], [place] [address]Ylobgsfdwtw (Bld) [#/Vol]1.45 10*3/uLNormal1.00-4.00 [facility] on above:Order Comment: Specimen Type: BLOOD SPECIMENOrdering Facility: [facility] Address:[address] [place], [place] [address]Performed By: #### 91239-4 ####[facility] LABCLIA [id number] [place], [place] [address]Ebyzlmrfcdb/100 WBC (Bld)15.9 %NormalCleveland Clinic on above:Order Comment: Specimen Type: BLOOD SPECIMENOrdering Facility: [facility] Address:[address] [place], [place] [address]Performed By: #### 12270-1 ####[facility] LABCLIA [id number] [place], [place] [address]OQH (RBC) [Entitic mass]26.9 buHhojxc80.0-34.0[facility] on above:Order Comment: Specimen Type: BLOOD SPECIMENOrdering Facility: [facility] Address:[address] [place], [place] [address]Performed By: #### 27180-1 ####[facility] LABIA [id number] [place], [place] [address]WUUE (RBC) [Mass/Vol]32.2 g/yHAcfldt56.5-36.0[facility] on above: Order Comment: Specimen Type: BLOOD SPECIMENOrdering Facility: [facility] Address:[address] [place], [place] [address]Performed By: #### 69970- 8 ####[facility] LABCLIA [id number] [place], [place] [address]WRM (RBC) [Entitic vol]83.7 zMKwucia88.0-100.0[facility] on above:Order Comment: Specimen Type: BLOOD SPECIMENOrdering Facility: [facility] Address:[address] [place], [place] [address]Performed By: #### 41165-7 ####[facility] LABIA [id number] [place], [place] [address]Uvkzgjlzj (Bld) [#/Vol]0.68 10*3/uLNormal<0.87[facility] on above:Order Comment: Specimen Type: BLOOD SPECIMENOrdering Facility: [facility] Address:[address] [place], [place] [address]Performed By: #### 46476- 8 ####[facility] LABCLIA [id number] [place], [place] [address]Djgffxxyp/100 WBC (Bld)7.4 %NormalCleveland Clinic on above:Order Comment: Specimen Type: BLOOD SPECIMENOrdering Facility: [facility] Address:[address] [place], [place] [address]Performed By: #### 55762-3 ####[facility] LABCLIA [id number] [place], [place] [address]Zhkvkucqbjv (Bld) [#/Vol]6.26 10*3/uLNormal1.45-7.50[facility] on above:Order Comment: Specimen Type: BLOOD SPECIMENOrdering Facility: [facility] Address:[address] [place], [place] [address]Performed By: #### 21611-4 ####[facility] LABCLIA [id number] [place], [place] [address]Rrumrajkggi/100 WBC (Bld)68.6 %NormalCleveland Clinic on above:Order Comment: Specimen Type: BLOOD SPECIMENOrdering Facility: [facility] Address:[address] [place], [place] [address]Performed By: #### 53099-8 ####[facility] LABCLIA [id number] [place], [place] [address]Abgbhfzbl RBC (Bld) [#/Vol] 10*3/uLNormal<0.01[facility] on above:Order Comment: Specimen Type: BLOOD SPECIMENOrdering Facility: [facility] Address:[address] [place], [place] [address]Performed By: #### 86929-4 ####[facility] LABCLIA [id number] [place], [place] [address]Csaonizaq RBC/100 WBC (Bld) [Ratio]0.0 /100 WBCNormal [facility] on above:Order Comment: Specimen Type: BLOOD SPECIMENOrdering Facility: [facility] Address:[address] [place], [place] [address]Performed By: #### 57110-9 ####[facility] LABCLIA [id number] [place], [place] [address]Xwuadlkt mean volume (Bld) [Entitic vol]8.2 fLLow9.0-12.7CPremier Health [facility] on above:Order Comment: Specimen Type: BLOOD SPECIMENOrdering Facility: [facility] Address:[address] [place], [place] [address]Performed By: #### 61965-6 ####[facility] LABCLIA [id number] [place], [place] [address]Umpotwvom (Bld) [#/Vol]225 10*3/jFYibczr221-498BvhfahwfiCleveland Clinic on above:Order Comment: Specimen Type: BLOOD SPECIMENOrdering Facility: [facility] Address:[address] [place], [place] [address]Performed By: #### 93652-9 ####[facility] LABCLIA [id number] [place], [place] [address]LSZ (Bld) [#/Vol]4.79 10*6/uLNormal4.20-6.00[facility] on above: Order Comment: Specimen Type: BLOOD SPECIMENOrdering Facility: [facility] Address:[address] [place], [place] [address]Performed By: #### 26617- 8 ####[facility] LABCLIA [id number] [place], [place] [address]INF (Bld) [#/Vol]9.14 10*3/uLNormal3.70-11.00[facility] on above:Order Comment: Specimen Type: BLOOD SPECIMENOrdering Facility: [facility] Address:[address] [place], [place] [address]Kizddyvst By: #### 98520-8 ####[facility]O [facility] LABCLIA [id number] [facility], [place] [address]HIAZCNzb 03-79-0974GJNHCKZwfsc (SP) Office (HEMASA) ELMORECAITLIN Uriostegui ([id number]) 1965 M Date Time Provider Department 03/07/25 2:00 PM LAKIA MEDINA During your visit today, we recorded the following information about you: Temperature Pulse Respiration Blood pressure 97.2 degrees 79/minute 16/minute 124/79 Weight 89.8 kg Lakia Medina MD 03/07/2025 3:27 PM Signed NAME: Caitlin Elmore CLINIC NO.: [id number] DATE OF SERVICE: March 07, 2025 (Sascha) Some elements in this clinic [...] received a total of 200 mg/m2 of [place] as well. PET with response 04/2023. CT [...] ordered by Dr. Ellsworth - 06/05/2025 at [facility] Consider rescheduling for 05/30/2025 to coordinate with RTC with me AND treatment RTC in 12 weeks for continued treatment Labs same day - HPI: CASE HISTORY: Reverse Chronological Order 02/20/2025 [...] PET/CT. Comparison to the prior studies is (more content not included)...NormalTrihealth Comprehensive metabolic 2000 panelon 95-65-6264Zhbfsoe [Mass/Vol]4.4 g/dLNormal 3.9-4.9CPremier [facility] on above:Order Comment: Specimen Type: BLOOD SPECIMENOrdering Facility: [facility] Address:[address] [address]JAZMIN [place]Z [place], [place] [address]Kizcknpgq By: #### 72723-3 ####JHON [facility] LABCLIA [id number] [place], [place] [address]QNW [Catalytic activity/Vol]97 U/IYhuwkt45-692EssdydlwuCleveland Clinic on above:Order Comment: Specimen Type: BLOOD SPECIMENOrdering Facility: [facility] Address:[address] [place], [place] [address]Performed By: #### 53828-7 ####[facility] LABCLIA [id number] [facility] BONNERBAN[facility] C[facility] [address]MKJ [Catalytic activity/Vol]10 U/KUwjtqg99-36LdowxjudfC[facility] Clinic on above:Order Comment: Specimen Type: BLOOD SPECIMENOrdering Facility: [facility] Address:[address] [place], [place] [address]Performed By: #### 57285-3 ####[facility] LABCLIA [id number] [place], [place] [address]Tkgye gap [Moles/Vol]9 mmol/LNormal8-15[facility] on above:Order Comment: Specimen Type: BLOOD SPECIMENOrdering Facility: [facility] Address:[address] [place], [place] [address]Performed By: #### 77683- 8 ####[facility] LABCLIA [id number] [facility] [place] [place], [place] [address]OTP [Catalytic activity/Vol]11 U/AZxe22-78RgydwzaojCleveland Clinic on above:Order Comment: Specimen Type: BLOOD SPECIMENOrdering Facility: [facility] Address:[address] [place], [place] [address]Performed By: #### 80348-1 ####[facility] LABCLIA [id number] [place], [place] [address]Bhpsonyny [Mass/Vol]0.3 mg/dLNormal0.2-1.3CPremier [facility] on above:Order Comment: Specimen Type: BLOOD SPECIMENOrdering Facility: [facility] Address:[address] [place], [place] [address]Performed By: #### 73294- 8 ####[facility] LABCLIA [id number] [facility] [place] [place], [place] [address]Gozuicc [Mass/Vol]10.2 mg/dLNormal8.5-10.2CPremier Health [facility] on above:Order Comment: Specimen Type: BLOOD SPECIMENOrdering Facility: [facility] Address:[address] [place], [place] [address]Performed By: #### 75431-9 ####[facility] LABCLIA [id number] [place], [place] [address]Qgeillyy [Moles/Vol]100 mmol/PJlpxlx59-237GvryxmhikCleveland Clinic on above: Order Comment: Specimen Type: BLOOD SPECIMENOrdering Facility: [facility] Address:[address] [place], [place] [address]Performed By: #### 08711- 8 ####[facility] LABCLIA [id number] [place], [place] [address]JO4 [Moles/Vol]26 mmol/VWnrhuy90-12IjkzlbhybCleveland Clinic on above:Order Comment: Specimen Type: BLOOD SPECIMENOrdering Facility: [facility] Address:[address] [place], [place] [address]Performed By: #### 25454-1 ####[facility] LABCLIA [id number] [place], [place] [address]Omwmnwrgpj [Mass/Vol]1.27 mg/dL High0.73-1.22[facility] on above:Order Comment: Specimen Type: BLOOD SPECIMENOrdering Facility: [facility] Address:[address] [place], [place] [address]Performed By: #### 48851-7 ####[facility] LABCLIA [id number] [place] [address] Creatinine and Glomerular filtration rate.predicted panel (S/P/Bld)65 mL/min/1.73m???Normal>=60[facility] on above:Order Comment: Specimen Type: BLOOD SPECIMENOrdering Facility: [facility] Address:[address] [place], [place] [address]Result Comment: Estimated Glomerular Filtration Rate (eGFR) is calculated using the 2020 CKD-EPI cre atinine equation. This equation utilizes serum creatinine, sex, and age as parameters. The creatinine assay has traceable calibration to isotope dilution- mass spectrometry. Refer to KDIGO guidelines for clinical interpretation. In patients with unstable renal function, e.g. those with acute kidney injury, the eGFR may not accurately reflect actual GFR.Performed By: #### 34500-3 ####[facility] LABCLIA [id number] [place], [place] [address]Gnpetdx [Mass/Vol]100 mg/aJZcnj40-95QuhkujwngCleveland Clinic on above:Order Comment: Specimen Type: BLOOD SPECIMENOrdering Facility: [facility] Address:[address] [place] [address]Jrtjdf Comment: The [place] Diabetes Association (ADA) provides guidance for cutoff values for fasting glucose and random glucose. The ADA defines fasting as no caloric intake for at least 8 hours. Fasting plasma glucose results between 100 to 125 mg/dL indicate increased risk for diabetes (prediab etes). Fasting plasma glucose results greater than or [...] Standards of Medical Care in Diabetes 2016, [place] [employer]. Diabetes Care. 2016.39(Suppl 1).Performed By: #### 83650-5 ####[facility] LABCLIA [id number] [place], [place] [address]Dzntmhmwd [Moles/Vol]4.8 mmol/LNormal3.7-5.1CPremier Health Upper [facility] on above:Order Comment: Specimen Type: BLOOD SPECIMENOrdering Facility: [facility] Address:[address] [place], [place] [address]Bfujhrupl By: #### 96025-9 ####[facility] LABCLIA [id number] [place], [place] [address]Kmdjujm [Mass/Vol]7.0 g/dLNormal6.3-8.0[facility] on above:Order Comment: Specimen Type: BLOOD SPECIMENOrdering Facility: [facility] Address:[address] [place], [place] [address]Performed By: #### 65242- 8 ####[facility] LABCLIA [id number] [place], [place] [address]Fhqidu [Moles/Vol]135 mmol/JFnq759-569OfwgacweoCleveland Clinic on above:Order Comment: Specimen Type: BLOOD SPECIMENOrdering Facility: [facility] Address:[address] [place], [place] [address]Performed By: #### 87100-7 ####[facility] LABCLIA [id number] [place], [place] [address]Szzb nitrogen [Mass/Vol]23 mg/dLNormal9-24[facility] on above:Order Comment: Specimen Type: BLOOD SPECIMENOrdering Facility: [facility] Address:[address] [place], [place] [address]Performed By: #### 45521-1 ####[facility] LABCLIA [id number] [place], [place] [address]Fivgzl SerPl-mCncon 26-03-0399Ffuaqjmx [Mass/Vol]6.8 ug/dLNormal4.8-19.5CPremier Health [facility] on above:Order Comment: Specimen Type: BLOOD SPECIMENOrdering Facility: [facility] Address:[address] [place], [place] [address]Result Comment: Provided reference range is from 6-10 AM sample collection time. Cortisol Reference Range: 6-10 AM = 4.8-19.5 ug/dL, 4-8 PM = 2.5-11.9 ug/dL Performed By: #### 2143-6, 3016-3 ####[facility] LABCLIA [id number] [address] [facility] HbA1c (Bld)on 56-03-3030Sxcadkb glucose Estimated from glycated hemoglobin (Bld) [Mass/Vol]100 mg/dLNormalCPremier Health Upper [facility] on above:Order Comment: Specimen Type: BLOOD SPECIMENOrdering Facility: [facility] Address:[address] [place], [place] [address]Result Comment: eAG: (Estimated average glucose) is a calculated value from HgbA1c and is representa tive of the average blood glucose level in the last 2-3 month period.Performed By: #### 61845-2 ####[facility]PITALIA [id number] [address] ST[address]ETHbA1c (Bld) [Mass fraction]5.1 %Normal4.3-5.6CPremier Health [facility] on above:Order Comment: Specimen Type: BLOOD SPECIMENOrdering Facility: [facility] Address:[address] [place], [place] [address]Result Comment: [place] Diabetes Association guidelines indicate that patients with HgbA1c in the range 5.7-6.4% are at increased risk for development of diabetes, and intervention by lifestyle modification may be beneficial. HgbA1c greater or equal to 6.5% is considered diagnostic of diabetes.Performed By: #### 21710-7 ####[facility] [id number] [place] [id number] [facility] SerPl-aCncon 32-13-2468EDA Qn4.570 m[IU]/LHigh 0.270-4.200[facility] on above:Order Comment: Specimen Type: BLOOD SPECIMENOrdering Facility: [facility] Address:[address] [place], [place] [address]Performed By: #### 2143-6, 3016-3 ####[facility] [id number] [place] [id number] [facility] CENTERCNOVon 73-46-3139SPLDLpprjv Visit (RTMNCA) CAITLIN ELMORE ([id number]) 1965 M Date Time Provider Department 02/20/25 10:30 AM TAYLA ELLSWORTH RTMNCA During your visit today, we recorded the following information about you: Temperature Pulse Respiration Blood pressure 97.7 degrees 84/minute 20/minute 126/71 Weight 89.5 kg Maddy Quach LPN 02/20/2025 4:09 PM Signed Additional intake questions: Has the patient had fever, nausea, vomiting, diarrhea, constipation, fatigue for > 1 week? No Does the patient have a decreased appetite? No Does patient want to see a Market Investigator? No (yes to any of above refer [...] By: Maddy Quach LPN Additional intake questions: Tayla Ellsworth MD 02/20/2025 4:09 PM Signed Radiation Oncology - Follow Up Note PATIENT NAME: Caitlin Elmore PATIENT DIAGNOSIS: Oligoprogressive 2 RUL lung metastases, from previously treated HANDN cancer. S/p lung SBRT 07/05/2024 Single isocenter for 2 lung lesions: 3400 cGy in 1 fx ONCOLOGIC HX: 1. HPV positive BOT SCC Treatment History: 1. Concurrent Cisplatin and XRT 11/21/2021- XRTY completed 01/06/2023 and last dose of chemo 12/21/2022 (Total [place] dose= 200 mg/m2) 2. Recurrence in the [...] SOB or chest pain. 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 Planning on taking trip to [facility] over the summer. May visit [facility] later this month as his daughter is [...] Negative for dizziness, headache, weakness or numbness. HEMATOLOGIC (more content not included)...NormalC[facility] Clinic [facility] ABDOMEN W IVCONon 97-23-2998EX ABDOMEN W IVCON* * *Final Report* * * DATE OF [...] reported separately. Localizer images: No additional findings. IMPRESSION: No significant change from prior exam. No metastasis in the abdomen. Wool Broker: JALEN Transcribe Date/Time: Feb 20 2025 9:17A Dictated by : JING ERNST MD This examination was interpreted and the report reviewed and electronically signed by: JING ERNST MD on Feb 20 2025 9:25AM EST [id number] Clinic Lutheran Hospital Abdomen W contrast Marcie 42-18-2840NGUUAGMBQS: No significant change from prior exam. No metastasis in the abdomen. Wool Broker: [facility] Transcribe Date/Time: Feb 20 2025 9:17A Dictated by : JING ERNST MD This examination was interpreted and the report reviewed and electronically signed by: JING ERNST MD on Feb 20 2025 9:25AM EST DIVISION OF RADIOLOGY* * *Final Report* * * DATE OF [...] Localizer images: No additional findings. DIVISION OF RADIOLOGYProvider, [facility] [place] - 02/20/2025 * * *Final Report* * [...] prior exam. No metastasis in the abdomen. Wool Broker: [facility] Transcribe Date/Time: Feb 20 2025 9:17A Dictated by : JING ERNST MD This examination was interpreted and the report reviewed and electronically signed by: JING ERNST MD on Feb 20 2025 9:25AM EST [facility] CHEST W IVCONon [id number] CHEST W IVCON* * *Final Report* * * DATE OF EXAM: Feb 20 2025 8:58AM [facility] 0539 - CT CHEST W IVCON / PROCEDURE REASON: Secondary malignant neoplasm of chest wall (HCC) * * * * Physician Interpretation * * * * EXAMINATION: CHEST CT WITH CONTRAST CLINICAL HISTORY: Oligoprogressive 2 RUL lung metastases, from previously treated HandN cancer. S/p lung SBRT 07/05/2024 Single isocenter for 2 lung lesions: 3400 cGy in 1 fx ? Concurrent Cisplatin and XRT 11/21/2021- XRTY completed 01/06/2023 and last dose of chemo 12/21/2022 (Total [place] dose= 200 mg/m2) 2. Recurrence in the [...] upper abdomen. Localizer images: No additional findings. IMPRESSION: 1. New right upper lobe mass [...] be communicated with the ordering provider via edenes staff message or phone message by [facility] within 2 business days of report finalization. --END OF FINDING-- Wool Broker: JALEN Transcribe Date/Time: Feb 20 2025 9:25A Dictated by : TIERRA PARK MD This examination was interpreted and the report reviewed and electronically signed by: TIERRA PARK MD on Feb 20 2025 9:49AM EST [id number] ACTIONABLEInvalid Interpretation CodeCleThe Christ Hospital Chest W contrast IVOrdered By: [facility] Provider on 36-74-2483Bzolxoazlqjcru and review of laboratory resultsAbnormalCuniversity hospitals tripoint medical centerand ClinicRadiology ResultACTIONABLEAbnormal [facility] HospitalComment on above:This report contains an incidental or actionable finding. [...] contact your provider for the next steps. [facility] HospitalCT Chest W contrast Marcie 75-95-3622FOVFMAOJIT: 1. New right upper lobe mass obscuring [...] be communicated with the ordering provider via edenes staff message or phone message by [facility] within 2 business days of report finalization. --END OF FINDING-- Wool Broker: JALEN Transcribe Date/Time: Feb 20 2025 9:25A Dictated by : TIERRA PARK MD This examination was interpreted and the report reviewed and electronically signed by: TIERRA PARK MD on Feb 20 2025 9:49AM [facility] DIVISION OF RADIOLOGY* * *Final Report* * * DATE OF [...] and last dose of chemo 12/21/2022 (Total [place] dose= 200 mg/m2) 2. Recurrence in the [...] Localizer images: No additional findings. DIVISION OF RADIOLOGYProvider, [facility] [place] - 02/20/2025 * * *Final Report* * * DATE OF EXAM: Feb 20 2025 8:58AM [facility] 0539 - CT CHEST W IVCON [...] and last dose of chemo 12/21/2022 (Total [place] dose= 200 mg/m2) 2. Recurrence in the [...] be communicated with the ordering provider via edenes staff message or phone message by [facility] within 2 business days of report finalization. --END OF FINDING-- Wool Broker: JALEN Transcribe Date/Time: Feb 20 2025 9:25A Dictated by : TIERRA PARK MD This examination was interpreted and the report reviewed and electronically signed by: TIERRA PARK MD on Feb 20 2025 9:49AM EST [facility] Panel Informationon 38-96-6230Nhtbiulct Study observation (narrative)[facility] Plas-mCncon 10-15-5497Rxeemvwzymjti (P) [Mass/Vol]5.8 pg/mLLow7.2-63.3CMartins Ferry HospitalCommymichigan medical center gladwin on above:Order Comment: Specimen Type: BLOOD SPECIMENOrdering Facility: [facility] Address:[address] [place], [place] [address]Result Comment: ACTH Reference Range: 7-10 am: 7.2 - 63.3 pg/mLPerformed By: #### 2141-0 ####[facility] LABCLIA [id number] [place] [address] [place] AMERICACortann Ramírezjose eAnn Marie 02-03-2025 Cortisol [Mass/Vol]25.4 ug/dLHigh4.8-19.5CPremier Health [facility] on above:Order Comment: Specimen Type: BLOOD SPECIMENOrdering Facility: [facility] Address:[address] [place], [place] [address]Result Comment: Provided reference range is from 6-10 AM sample collection time. Cortisol Reference Range: 6-10 AM = 4.8-19.5 ug/dL, 4-8 PM = 2.5-11.9 ug/dL Performed By: #### 2143-6 ####[facility] LABCLIA [id number] [place] [address] [place] Cortisol [Mass/Vol]22.5 ug/dLHigh4.8-19.5CPremier Health [facility] on above:Order Comment: Specimen Type: BLOOD SPECIMENOrdering Facility: [facility] Address:[address] [place], [place] [address]Result Comment: Provided reference range is from 6-10 AM sample collection time. Cortisol Reference Range: 6-10 AM = 4.8-19.5 ug/dL, 4-8 PM = 2.5-11.9 ug/dL Performed By: #### 2143-6 ####[facility] LABCLIA [id number] [place] [address] [place] Cortisol [Mass/Vol]12.0 ug/dLNormal4.8-19.5CPremier Health [facility] on above:Order Comment: Specimen Type: BLOOD SPECIMENOrdering Facility: [facility] Address:[address] [place], [place] [address]Result Comment: Provided reference range is from 6-10 AM sample collection time. Cortisol Reference Range: 6-10 AM = 4.8-19.5 ug/dL, 4-8 PM = 2.5-11.9 ug/dL Performed By: #### 2143-6 ####[facility] LABCLIA [id number] [place] [id number] [place] CBC W Auto Differential panel (Bld)on 65-24-9207Ujjnmgqnc (Bld) [#/Vol]0.04 10*3/uLNINFWvumedicine Barnesville HospitalBasophils/100 WBC (Bld)0.6 %[facility] Differential cell count method Nom (Bld)AutoCleveland ClinicEosinophils (Bld) [#/Vol]0.4 10*3/uLNINFWvumedicine Barnesville HospitalEosinophils/100 WBC (Bld)5.6 %[facility] HospitalErythrocyte distribution width (RBC) [Ratio]12.2 %11.5 - 15.0 %[facility] HospitalHematocrit (Bld) [Volume fraction]35.9 %Low39.0 - 51.0 %[facility] Hemoglobin (Bld) [Mass/Vol]11.9 g/dLLow13.0 - 17.0 g/dLWvumedicine Barnesville HospitalImmature granulocytes (Bld) [#/Vol]NINFClevelMercy Health Perrysburg HospitalImmature granulocytes/100 WBC (Bld)0.3 %[facility] HospitalInterpretation and review of laboratory results AbnormalWvumedicine Barnesville HospitalLymphocytes (Bld) [#/Vol]0.98 10*3/uLLowWvumedicine Barnesville Hospital Lymphocytes/100 WBC (Bld)13.7 %[facility] CenterH (RBC) [Entitic mass]27.8 pg 26.0 - 34.0 pgCAshtabula General HospitalHC (RBC) [Mass/Vol]33.1 g/dL30.5 - 36.0 g/dL [facility] Medical CenterV (RBC) [Entitic vol]83.9 fL80.0 - 100.0 fLCOhioHealth O'Bleness Hospital Monocytes (Bld) [#/Vol]0.47 10*3/uLNINFWvumedicine Barnesville HospitalMonocytes/100 WBC (Bld) 6.6 %[facility] HospitalNeutrophils (Bld) [#/Vol]5.25 10*3/uLWvumedicine Barnesville Hospital Neutrophils/100 WBC (Bld)73.2 %[facility] HospitalNucleated RBC (Bld) [#/Vol]NINF [facility] HospitalNucleated RBC/100 WBC (Bld) [Ratio]0 %/100 WBCWvumedicine Barnesville Hospital Platelet mean volume (Bld) [Entitic vol]7.8 fLLow9.0 - 12.7 fLCOhioHealth O'Bleness Hospital Platelets (Bld) [#/Vol]225 10*3/uLWvumedicine Barnesville HospitalRBC (Bld) [#/Vol]4.28 10*6/uL 4.20 - 6.00 m/[facility] HospitalWBC (Bld) [#/Vol]7.16 10*3/uLTrihealth ClinicBasophils (Bld) [#/Vol]0.04 10*3/uLNormal<0.11CPremier Health [facility] on above:Order Comment: Specimen Type: BLOOD SPECIMENOrdering Facility: [facility] Address:[address] [place], [place] [address]Performed By: #### 24085-4 ####[facility] LABCLIA [id number] [place], [place] [address]Ekpsoptdm/100 WBC (Bld)0.6 % NormalCleveland Clinic on above:Order Comment: Specimen Type: BLOOD SPECIMENOrdering Facility: [facility] Address:[address] [place], [place] [address]Performed By: #### 14321-0 ####[facility] LABCLIA [id number] [place] [address] Differential cell count method Nom (Bld)AutoNormalCMartins Ferry Hospital Comment on above:Order Comment: Specimen Type: BLOOD SPECIMENOrdering Facility: [facility] Address:[address] [place] [address] Performed By: #### 08145-2 ####[facility] LABIA [id number] [place], [place] [address]Pvgkidluvgc (Bld) [#/Vol]0.40 10*3/uLNormal<0.46[facility] on above:Order Comment: Specimen Type: BLOOD SPECIMENOrdering Facility: [facility] Address:[address] [place], [place] [address]Performed By: #### 42636-3 ####[facility] LABCLIA [id number] [place], [place] [address]Neqnimatino/100 WBC (Bld)5.6 %NormalCleveland Clinic on above:Order Comment: Specimen Type: BLOOD SPECIMENOrdering Facility: [facility] Address:[address] [place], [place] [address]Performed By: #### 21419-7 ####[facility] LABCLIA [id number] [place], [place] [address]Okfadoiuyom distribution width (RBC) [Ratio]12.2 %Cerric10.5-15.0[facility] on above: Order Comment: Specimen Type: BLOOD SPECIMENOrdering Facility: [facility] Address:[address] [place], [place] [address]Performed By: #### 46019- 8 ####[facility] LABCLIA [id number] [place], [place] [address]Kunotpwuoo (Bld) [Volume fraction]35.9 %Low39.0-51.0 [facility] on above:Order Comment: Specimen Type: BLOOD SPECIMENOrdering Facility: [facility] Address:[address] [place], [place] [address]Performed By: #### 72030-1 ####[facility] LABCLIA [id number] [place], [place] [address]Mfjephvjni (Bld) [Mass/Vol]11.9 g/dLLow13.0-17.0[facility] on above:Order Comment: Specimen Type: BLOOD SPECIMENOrdering Facility: [facility] Address:[address] [place], [place] [address]Performed By: #### 41137- 8 ####[facility] LABCLIA [id number] [place], [place] [address]Qentyomk granulocytes (Bld) [#/Vol]10*3/uLNormal<0.10 [facility] on above:Order Comment: Specimen Type: BLOOD SPECIMENOrdering Facility: [facility] Address:[address] [place], [place] [address]Performed By: #### 98453-8 ####[facility] LABCLIA [id number] [place], [place] [address]Nfggbmuv granulocytes/100 WBC (Bld)0.3 %NormalCleveland Clinic on above: Order Comment: Specimen Type: BLOOD SPECIMENOrdering Facility: [facility] Address:[address] [place], [place] [address]Performed By: #### 34840- 8 ####[facility] LABCLIA [id number] [place], [place] [address]Bpiifaghgdz (Bld) [#/Vol]0.98 10*3/uLLow1.00-4.00 [facility] on above:Order Comment: Specimen Type: BLOOD SPECIMENOrdering Facility: [facility] Address:[address] [place], [place] [address]Performed By: #### 13206-6 ####[facility] LABIA [id number] [place], [place] [address]Gkriulnjgma/100 WBC (Bld)13.7 %NormalCleveland Clinic on above:Order Comment: Specimen Type: BLOOD SPECIMENOrdering Facility: [facility] Address:[address] [place], [place] [address]Performed By: #### 72728-8 ####[facility] LABIA [id number] [place], [place] [address]OJP (RBC) [Entitic mass]27.8 kqAoknhp90.0-34.0[facility] on above:Order Comment: Specimen Type: BLOOD SPECIMENOrdering Facility: [facility] Address:[address] [place], [place] [address]Performed By: #### 09452-8 ####[facility] LABIA [id number] [place], [place] [address]CGZK (RBC) [Mass/Vol]33.1 g/rIXmoekm13.5-36.0[facility] on above: Order Comment: Specimen Type: BLOOD SPECIMENOrdering Facility: [facility] Address:[address] [place], [place] [address]Performed By: #### 49304- 8 ####[facility] LABIA [id number] [place], [place] [address]MTD (RBC) [Entitic vol]83.9 mLFlfjsx26.0-100.0[facility] on above:Order Comment: Specimen Type: BLOOD SPECIMENOrdering Facility: [facility] Address:[address] [place], [place] [address]Performed By: #### 86324-1 ####[facility] LABIA [id number] [place], [place] [address]Eljhvupfn (Bld) [#/Vol]0.47 10*3/uLNormal<0.87[facility] on above:Order Comment: Specimen Type: BLOOD SPECIMENOrdering Facility: [facility] Address:[address] [place], [place] [address]Performed By: #### 81968- 8 ####[facility] LABIA [id number] [place], [place] [address]Xfzbnobyf/100 WBC (Bld)6.6 %NormalCleveland Clinic on above:Order Comment: Specimen Type: BLOOD SPECIMENOrdering Facility: [facility] Address:[address] [place], [place] [address]Performed By: #### 25310-9 ####[facility] LABIA [id number] [place], [place] [address]Jvezhgmiyyj (Bld) [#/Vol]5.25 10*3/uLNormal1.45-7.50[facility] on above:Order Comment: Specimen Type: BLOOD SPECIMENOrdering Facility: [facility] Address:[address] [place], [place] [address]Performed By: #### 69960-1 ####[facility] LABCLIA [id number] [place], [place] [address]Itrozfgeiat/100 WBC (Bld)73.2 %NormalCleveland Clinic on above:Order Comment: Specimen Type: BLOOD SPECIMENOrdering Facility: [facility] Address:[address] [place], [place] [address]Performed By: #### 04743-7 ####[facility] LABCLIA [id number] [place], [place] [address]Dcqubvnur RBC (Bld) [#/Vol] 10*3/uLNormal<0.01[facility] on above:Order Comment: Specimen Type: BLOOD SPECIMENOrdering Facility: [facility] Address:[address] [place], [place] [address]Performed By: #### 73352-0 ####[facility] LABCLIA [id number] [place], [place] [address]Gwrawjzwz RBC/100 WBC (Bld) [Ratio]0.0 /100 WBCNormal [facility] on above:Order Comment: Specimen Type: BLOOD SPECIMENOrdering Facility: [facility] Address:[address] [place], [place] [address]Performed By: #### 70675-5 ####[facility] LABIA [id number] [place], [place] [address]Utkalhrf mean volume (Bld) [Entitic vol]7.8 fLLow9.0-12.7CPremier Health Upper [facility] on above:Order Comment: Specimen Type: BLOOD SPECIMENOrdering Facility: [facility] Address:[address] [id number] By: #### 13012-2 ####[facility] LABCLIA [id number] [place], [place] [address]Abazcxvcq (Bld) [#/Vol]225 10*3/fTKwljmp777-623PcnfngzvdCleveland Clinic on above:Order Comment: Specimen Type: BLOOD SPECIMENOrdering Facility: [facility] Address:[address] [place], [place] [address]Performed By: #### 40018-6 ####[facility] LABCLIA [id number] [place], [place] [address]VHA (d) [#/Vol]4.28 10*6/uLNormal4.20-6.00[facility] on above: Order Comment: Specimen Type: BLOOD SPECIMENOrdering Facility: [facility] Address:[address] [place], [place] [address]Performed By: #### 60368- 8 ####[facility] LABCLIA [id number] [place], [place] [address]JGK (d) [#/Vol]7.16 10*3/uLNormal3.70-11.00[facility] on above:Order Comment: Specimen Type: BLOOD SPECIMENOrdering Facility: [facility] Address:[address] [place], [place] [address]Performed By: #### 62404-0 ####[facility] LABIA [id number] [place], [place] [address]Ghrwcnmvqfhto metabolic 2000 panelOrdered By: Rosemarie Douglas on 37-70-6682Ovlinhp [Mass/Vol]3.8 g/dLLow3.9 - 4.9 g/dLWinston Salem ClinicALP [Catalytic activity/Vol]112 U/L38 - 113 U/LCleveland ClinicALT [Catalytic activity/Vol]15 U/L10 - 54 U/LCleveland ClinicAnion gap [Moles/Vol]10 mmol/L8 - 15 mmol/LCleveland ClinicAST [Catalytic activity/Vol]13 U/LLow14 - 40 U/LCleveland ClinicBilirubin [Mass/Vol]0.2 mg/dL 0.2 - 1.3 mg/dLCleveland ClinicCalcium [Mass/Vol]9.9 mg/dL8.5 - 10.2 mg/dL [facility] ClinicChloride [Moles/Vol]100 mmol/L98 - 107 mmol/LCleveland ClinicCO2 [Moles/Vol]24 mmol/L22 - 30 mmol/LCleveland ClinicCreatinine [Mass/Vol]1.38 mg/dLHigh0.73 - 1.22 mg/dLCleveland ClinicGFR/1.73 sq M.predicted among non- blacks MDRD (S/P/Bld) [Vol rate/Area]59 mL/min/{1.73_m2}Low- PINFCleveland ClinicComment on above:Estimated Glomerular Filtration Rate (eGFR) is calculated using the 2020 CKD-EPI creatinine equation. This equation utilizes serum creatinine, sex, and age as parameters. The creatinine assay has traceable calibration to isotope dilution-mass spectrometry. Refer to KDIGO guidelines for clinical interpretation. In patients with unstable renal function, e.g. those with acute kidney injury, the eGFRmay not accurately reflect actual GFR.Glucose [Mass/Vol]173 mg/yWCkec21 - 99 mg/dLWvumedicine Barnesville HospitalComment on above:The [place] Diabetes Association (ADA) provides guidance for cutoff [...] Standards of Medical Care in Diabetes 2016, [place] [employer]. Diabetes Care. 2016.39(Suppl 1). Interpretation and review of laboratory resultsAbnormalCleveland ClinicPotassium [Moles/Vol]3.7 mmol/L3.7 - 5.1 mmol/LCleveland ClinicProtein [Mass/Vol]7 g/dL 6.3 - 8.0 g/dLParkwood Hospitalodium [Moles/Vol]134 mmol/UFcc736 - 144 mmol/L [facility]icine Barnesville HospitalUrea nitrogen [Mass/Vol]22 mg/dL9 - 24 mg/dLUniversity Hospitals TriPoint Medical Centerprehensive metabolic 2000 panelon 77-10-8588Fjjfdgh [Mass/Vol]3.8 g/dLLow3.9-4.9CPremier Health Upper Valley [facility] on above:Order Comment: Specimen Type: BLOOD SPECIMENOrdering Facility: [facility] Address:[address] [place], [place] [address]Performed By: #### 08220- 8 ####[facility] LABCLIA [id number] [place], [place] [address]QPM [Catalytic activity/Vol]112 U/CCharvf15-159MpsgkqceyCleveland Clinic on above:Order Comment: Specimen Type: BLOOD SPECIMENOrdering Facility: [facility] Address:[address] [place], [place] [address]Performed By: #### 49308-2 ####[facility] LABCLIA [id number] [place], [place] [address]IFI [Catalytic activity/Vol]15 U/BAohecf03-17IclserkdzCleveland Clinic on above:Order Comment: Specimen Type: BLOOD SPECIMENOrdering Facility: [facility] Address:[address] [place], [place] [address]Performed By: #### 99180- 8 ####[facility] LABCLIA [id number] [place], [place] [address]Drcki gap [Moles/Vol]10 mmol/LNormal8-15[facility] on above:Order Comment: Specimen Type: BLOOD SPECIMENOrdering Facility: [facility] Address:[address] [place], [place] [address]Performed By: #### 98621-5 ####[facility] LABCLIA [id number] [place], [place] [address]XLF [Catalytic activity/Vol]13 U/BItw62-70IwabwwafpCleveland Clinic on above:Order Comment: Specimen Type: BLOOD SPECIMENOrdering Facility: [facility] Address:[address] [place], [place] [address]Performed By: #### 86070-4 ####PROMISEWVTEO [facility] LABCLIA [id number] [facility] [place] [address] Bilirubin [Mass/Vol]0.2 mg/dLNormal0.2-1.3CPremier Health Upper [facility] on above:Order Comment: Specimen Type: BLOOD SPECIMENOrdering Facility: [facility] Address:[address] [place], [place] [address]Performed By: #### 78495-9 ####[facility] LABCLIA [id number] [facility], [place] [address]Qwnrcsk [Mass/Vol]9.9 mg/dLNormal8.5-10.2CPremier Health Upper [facility] on above:Order Comment: Specimen Type: BLOOD SPECIMENOrdering Facility: [facility] Address:[address] [place], [place] [address]Performed By: #### 69015-4 ####JHON [facility] LABCLIA [id number] [facility]ENTERNITISHBANNER CARD[facility] CHIL[facility] [place] [place], [place] [address]Wolxlzfm [Moles/Vol]100 mmol/EBznuww79-198XdkzchswjCleveland Clinic on above: Order Comment: Specimen Type: BLOOD SPECIMENOrdering Facility: [facility] Address:[address] [place], [place] [address]Performed By: #### 38576- 8 ####[facility] LABCLIA [id number] [facility] [place], [place] [address]JD5 [Moles/Vol]24 mmol/CGjtmlf85-54VvlnicxbaCleveland Clinic on above:Order Comment: Specimen Type: BLOOD SPECIMENOrdering Facility: [facility] Address:[address] [place], [place] [address]Performed By: #### 80836-4 ####[facility] LABCLIA [id number] [place], [place] [address]Xgwsbkxpav [Mass/Vol]1.38 mg/dL High0.73-1.22[facility] on above:Order Comment: Specimen Type: BLOOD SPECIMENOrdering Facility: [facility] Address:[address] [place], [place] [address]Performed By: #### 11345-8 ####[facility] LABIA [id number] [place] [address] Creatinine and Glomerular filtration rate.predicted panel (S/P/Bld)59 mL/min/1.73m???Low>=60[facility] on above:Order Comment: Specimen Type: BLOOD SPECIMENOrdering Facility: [facility] Address:[address] [place], [place] [address]Result Comment: Estimated Glomerular Filtration Rate (eGFR) is calculated using the 2020 CKD-EPI creatinine equation. This equation utilizes serum creatinine, sex, and age as parameters. The creatinine assay has traceable calibration to isotope dilution-mass spectrometry. Refer to KDIGO guidelines for clinical interpretation. In patients with unstable renal function, e.g. those with acute kidney injury, the eGFR may not accurately reflect actual GFR.Performed By: #### 17951-4 ####[facility] LABCLIA [id number] [place] [address] Glucose [Mass/Vol]173 mg/pBTmah45-65MjkevdhalCleveland Clinic on above: Order Comment: Specimen Type: BLOOD SPECIMENOrdering Facility: [facility] Address:[address] [place], [place] [address]Result Comment: The [place] Diabetes Association (ADA) provides guidance for cutoff values for fast ing glucose and random glucose. The ADA defines [...] Standards of Medical Care in Diabetes 2016, [place] [employer]. Diabetes Care. 2016.39(Suppl 1).Performed By: #### 67540-9 ####[facility] LABCLIA [id number] [place], [place] [address]Twfdstjzx [Moles/Vol]3.7 mmol/LNormal3.7-5.1CPremier Health Upper Valley [facility] on above:Order Comment: Specimen Type: BLOOD SPECIMENOrdering Facility: [facility] Address:[address] [place], [place] [address]Performed By: #### 48220-3 ####[facility] LABCLIA [id number] [place], [place] [address]Ahwojsn [Mass/Vol]7.0 g/dLNormal6.3-8.0[facility] on above:Order Comment: Specimen Type: BLOOD SPECIMENOrdering Facility: [facility] Address:[address] [place], [place] [address]Performed By: #### 84055- 8 ####[facility] LABCLIA [id number] [place], [place] [address]Ztndkf [Moles/Vol]134 mmol/YSfg426-228EbivlwuwiCleveland Clinic on above:Order Comment: Specimen Type: BLOOD SPECIMENOrdering Facility: [facility] Address:[address] [place], [place] [address]Performed By: #### 40003-6 ####[facility] LABIA [id number] [place], [place] [address]Akjo nitrogen [Mass/Vol]22 mg/dLNormal9-24[facility] on above:Order Comment: Specimen Type: BLOOD SPECIMENOrdering Facility: [facility] Address:[address] [place], [place] [address]Performed By: #### 40274-2 ####[facility] LABCLIA [id number] [place], [place] [address]Zgetbx SerPl-mCncon 51-93-2596Hxzpotgv [Mass/Vol]8.1 ug/dLNormal4.8-19.5CPremier Health Upper [facility] on above:Order Comment: Specimen Type: BLOOD SPECIMENOrdering Facility: [facility] Address:[address] [id number] Comment: Provided reference range is from 6-10 AM sample collection time. Cortisol Reference Range: 6-10 AM = 4.8-19.5 ug/dL, 4-8 PM = 2.5-11.9 ug/dL Performed By: #### 3016-3, 2143-6 ####[facility] LABCLIA [id number] [address] [id number] [place] HbA1c (Bld)on 49-01-3665Zppsxmo glucose Estimated from glycated hemoglobin (Bld) [Mass/Vol]111 mg/dLNormalCPremier Health Upper [facility] Center on above:Order Comment: Specimen Type: BLOOD SPECIMENOrdering Facility: [facility] Address:[address] [id number] Comment: eAG: (Estimated average glucose) is a calculated value from HgbA1c and is representa tive of the average blood glucose level in the last 2-3 month period.Performed By: #### 22992-1 ####[facility] LABCLIA [id number] [place] [address] [place] UVDCZIRStB0f (Bld) [Mass fraction]5.5 %Normal4.3-5.6CPremier Health [facility] on above:Order Comment: Specimen Type: BLOOD SPECIMENOrdering Facility: [facility] Address:[address] [place], [place] [address]Fmgoav Comment: [place] Diabetes Association guidelines indicate that patients with HgbA1c in the range 5.7-6.4% are at increased risk for development of diabetes, and intervention by lifestyle modification may be beneficial. HgbA1c greater or equal to 6.5% is considered diagnostic of diabetes.Performed By: #### 61880-3 ####[facility] LABCLIA [id number] [address]TS SerPl-aCncon 85-07-2999ERR Qn3.820 m[IU]/L Normal0.270-4.200TrihealthComment on above:Order Comment: Specimen Type: BLOOD SPECIMENOrdering Facility: [facility] Address:[address] [place], [place] [address]Performed By: #### 3016-3, 2143-6 ####[facility] LABCLIA [id number] [address]ETCNPNon [id number] (ENDOLN) CAITLIN EL[place] ([id number]) 1965 M Date Time Provider Department 01/15/25 CHUCK JONES ENDOLN During your visit today, we recorded the following information about you: Shirlene Oro LPN 01/15/2025 3:27 PM Signed Patient will need assistance in scheduling Stim Test. Thank You Amee Thornton 01/16/2025 3:02 PM Signed Patient has been scheduled for his STIM Test Allergies As of Date: 01/15/2025 (No Known Allergies) Date Reviewed: 01/10/2025 Reviewed by: Pepe Doran MA - Fully Assessed Prescriptions as of 01/16/2025 - famotidine (PEPCID AC) 20 mg tablet Take 1 tablet by mouth two times a day. - levothyroxine (SYNTHROID) 100 mcg tablet Take 1 tablet by mouth once daily. - pembrolizumab (KEYTRUDA INTRAVENOUS) Inject intravenously. - levothyroxine (SYNTHROID) 88 mcg tablet Take 1 tablet by mouth once daily. - ondansetron (ZOFRAN) 8 mg tablet Take 1 tablet by mouth every 8 hours as needed for nausea/vomiting. - prochlorperazine (COMPAZINE) 10 mg tablet Take 1 tablet by mouth every 6 hours as needed. - tamsulosin (FLOMAX) 0.4 mg Take 0.4 mg by mouth. - amLODIPine (NORVASC) 10 mg tablet Take 10 mg by mouth once daily. - lisinopril (ZESTRIL, PRINIVIL) 40 mg tablet Take 40 mg by mouth once daily. - pravastatin (PRAVACHOL) 20 mg tablet Take 20 mg by mouth once daily. - ibuprofen (MOTRIN) 200 mg tablet Take 200 mg by mouth every 6 hours as needed. 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 Severe protein-calorie malnutrition (HCC) [E43] 12/19/2022 Former smoker [Z87.891] 05/14/2024 Hypothyroidism [E03.9] 05/14/2024 Adrenal insufficiency (HCC) [E27.40] 05/14/2024 HTN (hypertension) [I10] 05/14/2024 HLD (hyperlipidemia) [E78.5] 05/14/2024 CKD (chronic kidney disease) [N18.9] 05/14/2024 Adrenal hypofunction (HCC) [E27.40] 01/10/2025 Encounter Status:Closed by AMEE THORNTON on 01/16/25[facility] [id number] Visit (ENDOLN) CAITLIN ELMORE ([id number]) 1965 M Date Time Provider Department 01/10/25 11:20 AM CHUCK JONES ENDOLN During your visit today, we recorded the following information about you: Pulse Blood pressure Weight 89/minute 98/56 93.5 kg Chuck Jones MD 01/12/2025 3:53 PM Signed ENDOCRINOLOGY The patient was referred by Tremaine oGmez. HISTORY HPI: Caitlin Elmore is a 59 [...] and last dose of chemo 12/21/2022 (Total [place] dose= 200 mg/m2). Recurrence in the Lung [...] OF Right mastoidectomy and incus repair TONSILLECTOMY AND ADENOIDECTOMY Social History Tobacco Use [...] kg (206 lb 2.1 oz) BMI 29.15 kg/m? Body mass index is 29.15 kg/m?. Appearance: Well appearing, in no acute distress. HEENT: Anicteric sclerae. Non-injected conjunctivae. Heart: RRR. No detectable murmur, gallop, or rub. Extremities: No deformities. No edema. Neuro: Alert, speaking coherently. No involuntary motions. Good proximal strength. Skin: Normal temperature. No rash. LABS RESULTS: Latest Ref Rng 05/17/2024 06/20/2024 08/02/2024 09/13/2024 11/01/2024 12/13/2024 (more content not included)...NormalPremier Health [facility] W Auto Differential panel (Bld)on 90-45-6608Ibuaqmxok (Bld) [#/Vol]0.04 10*3/uLNormal <0.11CPremier Health [facility] on above:Order Comment: Specimen Type: BLOOD SPECIMEN [facility] Address: [address] [place], [place] [address]Performed By: #### 17531-4 #### [facility] CLIA [id number] [address] [place] [address]Lzoxnfrju/100 WBC (Bld)0.6 %[facility] Comment on above:Order Comment: Specimen Type: BLOOD SPECIMEN [facility] Address: [address] [place], [place] [address]Performed By: #### 68388-4 #### [facility] CLIA [id number] [address] [place] [address]Gzuadedqhcaa cell count method Nom (Bld)AutoNormalCMartins Ferry HospitalCommymichigan medical center gladwin on above:Order Comment: Specimen Type: BLOOD SPECIMEN Ordering Facility: [facility] Address: [address] [place], [place] [address]Performed By: #### [id number] #### [facility] CLIA [id number] [address] [place] [address]Nbjmtnwjpiw (Bld) [#/Vol]0.46 10*3/uLHigh<0.46[facility] on above:Order Comment: Specimen Type: BLOOD SPECIMEN Ordering Facility: [facility] Address: [address] [place], [place] [address]Performed By: #### [id number] #### [facility] CLIA [id number] [address] [place], [place] [address]Htvyelkddct/100 WBC (Bld)7.3 %NormalTrihealth Comment on above:Order Comment: Specimen Type: BLOOD SPECIMEN Ordering Facility: [facility] Address: [address] [place], [place] [address]Performed By: #### [id number] #### [facility] CLIA [id number] [address] [place], [place] [address]Xvyhbsnmpqv distribution width (RBC) [Ratio]13.0 %Normal 11.5-15.0[facility] on above:Order Comment: Specimen Type: BLOOD SPECIMEN Ordering Facility: [facility] Address: [address] [place], [place] [address]Performed By: #### 81996-2 #### [facility] CLIA [id number] [address] [place] [address] 42184Vhrqbamevq (Bld) [Volume fraction]41.3 %Xqcmeu18.0-51.0 [facility] on above:Order Comment: Specimen Type: BLOOD SPECIMEN Ordering Facility: [facility] Address: [address] [place], [place] [address]Performed By: #### 34205-8 #### [facility] CLIA [id number] [address] [place] [address] 21728Hpbdsuncbl (Bld) [Mass/Vol]14.1 g/yWToohpe71.0-17.0[facility] on above:Order Comment: Specimen Type: BLOOD SPECIMEN Ordering Facility: [facility] Address: [address] [place], [place] [address]Performed By: #### 42115-1 #### [facility] CLIA [id number] [address] [place], [place] [address]Sechvfbg granulocytes (Bld) [#/Vol]10*3/uLNormal<0.10[facility] on above:Order Comment: Specimen Type: BLOOD SPECIMEN Ordering Facility[facility] Address: [address] [place], [place] [address]Performed By: #### 61744-2 #### [facility] CLIA [id number] [address] [place], [place] [address]Bivetwfi granulocytes/100 WBC (Bld)0.2 %NormalCleveland Clinic on above:Order Comment: Specimen Type: BLOOD SPECIMEN Ordering Facility: [facility] Address: [address] [place], [place] [address]Performed By: #### 70312-1 #### [facility] CLIA [id number] [address] [place] [address] 15412Qcgqvqosdke (Bld) [#/Vol]1.21 10*3/uLNormal1.00-4.00[facility] on above:Order Comment: Specimen Type: BLOOD SPECIMEN Ordering Facility: [facility] Address: [address] [place], [place] [address]Performed By: #### 99716-5 #### [facility] CLIA [id number] [address] [place] [address] 17263Usngszhuakm/100 WBC (Bld)19.3 %NormalCleveland Clinic on above:Order Comment: Specimen Type: BLOOD SPECIMEN Ordering Facility: [facility] Address: [address] [place], [place] [address]Performed By: #### 01153-6 #### [facility] CLIA [id number] [address] [place] [address] 61826MQT (RBC) [Entitic mass]29.0 ijInsfas23.0-34.0[facility] on above:Order Comment: Specimen Type: BLOOD SPECIMEN Ordering Facility: [facility] Address: [address] [place], [place] [address]Performed By: #### 89169-9 #### [facility] CLIA [id number] [address] [place], [place] [address]OQAQ (RBC) [Mass/Vol]34.1 g/cCXtrrxt20.5-36.0[facility] on above:Order Comment: Specimen Type: BLOOD SPECIMEN Ordering Facility: [facility] Address: [address] [place], [place] [address]Performed By: #### 45618-2 #### [facility] CLIA [id number] [address] [place] [address] 57283OBF (RBC) [Entitic vol]84.8 jEWuyngl88.0-100.0TrihealthComment on above:Order Comment: Specimen Type: BLOOD SPECIMEN Ordering Facility[facility] Address: [address] [place], [place] [address]Performed By: #### 28348-9 #### [facility] CLIA [id number] [address] [place] [address] 44330Bkftjphcl (Bld) [#/Vol]0.68 10*3/uLNormal<0.87[facility] on above:Order Comment: Specimen Type: BLOOD SPECIMEN Ordering Facility: [facility] Address: [address] [place], [place] [address]Performed By: #### 64433-7 #### [facility] CLIA [id number] [address] [place] [address] 45602Fczkrxprp/100 WBC (Bld)10.8 %NormalTrihealth Comment on above:Order Comment: Specimen Type: BLOOD SPECIMEN Ordering Facility: [facility] Address: [address] [place], [place] [address]Performed By: #### 92238-4 #### [facility] CLIA [id number] [address] [place] [address] 39276Irfnoyfzvos (Bld) [#/Vol]3.87 10*3/uLNormal1.45-7.50[facility] on above:Order Comment: Specimen Type: BLOOD SPECIMEN Ordering Facility: [facility] Address: [facility] [place], [place] [address]Performed By: #### 86101-6 #### [facility] CLIA [id number] [address] [place] [address] 42716Mljovbvcdjv/100 WBC (Bld)61.8 %NormalCleveland Clinic on above:Order Comment: Specimen Type: BLOOD SPECIMEN Ordering Facility[facility] Address: [address] [place], [place] [address]Performed By: #### 03913-1 #### [facility] CLIA [id number] [address] [place] [address] 70550Gmguslimr RBC (Bld) [#/Vol]10*3/uLNormal<0.01[facility] on above:Order Comment: Specimen Type: BLOOD SPECIMEN Ordering Facility[facility] Address: [address] [place], [place] [address]Performed By: #### 78276-5 #### [facility] CLIA [id number] [address] [place] [address] 09784Mimurtrjf RBC/100 WBC (Bld) [Ratio]0.0 /100 WBCNormalCPremier Health [facility] on above:Order Comment: Specimen Type: BLOOD SPECIMEN Ordering Facility[facility] Address: [address] [place], [place] [address]Performed By: #### 80979-5 #### [facility] CLIA [id number] [address] [place] [address] 28191Giznddpi mean volume (Bld) [Entitic vol]7.7 fLLow9.0-12.7 [facility] on above:Order Comment: Specimen Type: BLOOD SPECIMEN Ordering [facility] Address: [address] [place], [place] [address]Performed By: #### 54679-2 #### [facility] CLIA [id number] [address] [place], [place] [address]Dcktfdplf (Bld) [#/Vol]176 10*3/sWVemylg830-422ItewtqcexCleveland Clinic on above:Order Comment: Specimen Type: BLOOD SPECIMEN Ordering [facility] Address: [address] [place], [place] [address]Performed By: #### 34620-3 #### [facility] CLIA [id number] [address] [place] [address] 84574UFN (Bld) [#/Vol]4.87 10*6/uLNormal4.20-6.00[facility] on above:Order Comment: Specimen Type: BLOOD SPECIMEN Ordering [facility] Address: [address] [place], [place] [address]Performed By: #### 53705-1 #### [facility] CLIA [id number] [address] [place] [address] 50344SBO (Bld) [#/Vol]6.27 10*3/uLNormal3.70-11.00[facility] on above:Order Comment: Specimen Type: BLOOD SPECIMEN Ordering Facility[facility] Address: [address] [place], [place] [address]Performed By: #### 33732-6 #### [facility] IA [id number] [address] [place] [address] 63331TUBTDYro 47-36-4414VJRDFEDmtdp (SP) Office ([place]) CAITLIN ELMORE ([id number]) 1965 Date Time Provider Department 12/13/24 1:40 PM LAKIA MEDINA During your visit today, we recorded the following information about you: Temperature Pulse Respiration Blood pressure 97 degrees 66/minute 16/minute 127/81 Weight 98.7 kg Lakia Medina MD 12/13/2024 6:13 PM Signed NAME: Caitlin Elmore [facility] NO.: [id number] DATE OF SERVICE: December 13, 2024 (Sascha) [...] received a total of 200 mg/m2 of [place] as well. PET with response 04/2023. CT [...] 12 weeks for treatment Labs same day - HPI: CASE HISTORY: Reverse Chronological Order 10/31/2024 [...] mild uptake are also seen. HEAD/NECK, ABDOMEN/PELVIS, AND EXTREMITIES/SKELETON: No evidence of focal uptake to suggest FDG avid neoplastic process. 08/2023 - RUL biopsy: Lung, right upper lobe, nodule, biopsy: - HPV-associated squamo (more content not included)...NormalMercer County Community Hospitalprehensive metabolic 2000 panelon 54-07-3002Iwevqih [Mass/Vol]4.3 g/dLNormal3.9-4.9CPremier Health [facility] on above:Order Comment: Specimen Type: BLOOD SPECIMENOrdering Facility: [facility] Address:[address] [place], [place] [address]Performed By: #### 31743-9 ####[facility]IA [id number] [place], [place] [address]GIO [Catalytic activity/Vol]80 U/EHendsi09-764CoffnweqeCleveland Clinic on above:Order Comment: Specimen Type: BLOOD SPECIMENOrdering Facility: [facility] Address:[address] [place], [place] [address]Performed By: #### 42180-1 ####[facility] [id number] [place], [place] [address]HXC [Catalytic activity/Vol]12 U/XOwwxak07-31GmilhgzdaCleveland Clinic on above:Order Comment: Specimen Type: BLOOD SPECIMENOrdering Facility: [facility] Address:[address] [place], [place] [address]Performed By: #### 11545- 8 ####[facility]IA [id number] [place], [place] [address]Yqtrq gap [Moles/Vol]9 mmol/LNormal8-15[facility] on above:Order Comment: Specimen Type: BLOOD SPECIMENOrdering Facility: [facility] Address:[address] [place], [place] [address]Performed By: #### 92541-0 ####[facility]IA [id number] [facility] [address]ZYY [Catalytic activity/Vol]11 U/RKif37-09LfudhtxlhCleveland Clinic on above:Order Comment: Specimen Type: BLOOD SPECIMENOrdering Facility: [facility] Address:[address] [place], [place] [address]Performed By: #### 17303-8 ####[facility]IA [id number] [facility] [place] [address] Bilirubin [Mass/Vol]0.3 mg/dLNormal0.2-1.3CPremier Health [facility] on above:Order Comment: Specimen Type: BLOOD SPECIMENOrdering Facility: [facility] Address:[address] [place], [place] [address]Performed By: #### 99574-5 ####[facility]IA [id number] [facility] [place], [place] [address]Dokrwqt [Mass/Vol]9.1 mg/dLNormal8.5-10.2CPremier Health [facility] on above:Order Comment: Specimen Type: BLOOD SPECIMENOrdering Facility: [facility] Address:[address] [place], [place] [address]Performed By: #### 61042-5 ####[facility]IA [id number] [place], [place] [address]Wbmpzbne [Moles/Vol]101 mmol/VOtyyxt12-272NwwztiwxgCleveland Clinic on above: Order Comment: Specimen Type: BLOOD SPECIMENOrdering Facility: [facility] Address:[address] [place], [place] [address]Performed By: #### 08716- 8 ####[facility]IA [id number] [place], [place] [address]CX2 [Moles/Vol]25 mmol/JCjbtiy17-50JczdebtzbCleveland Clinic on above:Order Comment: Specimen Type: BLOOD SPECIMENOrdering Facility: [facility] Address:[address] [place], [place] [address]Performed By: #### 47511-1 ####[facility]IA [id number] [facility] [place], [place] [address]Twsuekrzwg [Mass/Vol]1.37 mg/dL High0.73-1.22[facility] on above:Order Comment: Specimen Type: BLOOD SPECIMENOrdering Facility: [facility] Address:[address] [place], [place] [address]Performed By: #### 04232-6 ####[facility] [id number] [place] [address] Creatinine and Glomerular filtration rate.predicted panel (S/P/Bld)60 mL/min/1.73m???Normal>=60[facility] on above:Order Comment: Specimen Type: BLOOD SPECIMENOrdering Facility: [facility] Address:[address] [place], [place] [address]Result Comment: Estimated Glomerular Filtration Rate (eGFR) is calculated using the 2020 CKD-EPI cre atinine equation. This equation utilizes serum creatinine, sex, and age as parameters. The creatinine assay has traceable calibration to isotope dilution- mass spectrometry. Refer to KDIGO guidelines for clinical interpretation. In patients with unstable renal function, e.g. those with acute kidney injury, the eGFR may not accurately reflect actual GFR.Performed By: #### 06971-6 ####[facility]IA [id number] [facility] [place], [place] [address]Dpkztxw [Mass/Vol]93 mg/nPMrrgkd90-20KzebegsljCleveland Clinic on above:Order Comment: Specimen Type: BLOOD SPECIMENOrdering Facility: [facility] Address:[address] [place], [place] [address]Result Comment: The [place] [employer] (ADA) provides guidance for cutoff values for fasting glucose and random glucose. The ADA defines fasting as no caloric intake for at least 8 hours. Fasting plasma glucose results between 100 to 125 mg/dL indicate increased risk for diabetes (prediab etes). Fasting plasma glucose results greater than or [...] Standards of Medical Care in Diabetes 2016, [place] [employer]. Diabetes Care. 2016.39(Suppl 1).Performed By: #### 52235-5 ####[facility]IA [id number] [place], [place] [address]Hjtaiscex [Moles/Vol]4.1 mmol/LNormal3.7-5.1CPremier Health [facility] on above:Order Comment: Specimen Type: BLOOD SPECIMENOrdering Facility: [facility] Address:[address] [place], [place] [address]Performed By: #### 42800-7 ####[facility] LABCLIA [id number] [place], [place] [address]Ltiehpt [Mass/Vol]6.6 g/dLNormal6.3-8.0[facility] on above:Order Comment: Specimen Type: BLOOD SPECIMENOrdering Facility: [facility] Address:[address] [place], [place] [address]Performed By: #### 27902- 8 ####[facility] LABCLIA [id number] [place], [place] [address]Phcfku [Moles/Vol]135 mmol/JUhu375-819DmtwnpylfCleveland Clinic on above:Order Comment: Specimen Type: BLOOD SPECIMENOrdering Facility: [facility] Address:[address] [place], [place] [address]Performed By: #### 92197-1 ####[facility] LABCLIA [id number] [place], [place] [address]Lbbd nitrogen [Mass/Vol]21 mg/dLNormal9-24[facility] on above:Order Comment: Specimen Type: BLOOD SPECIMENOrdering Facility: [facility] Address:[address] [place], [place] [address]Performed By: #### 00797-5 ####[facility] LABCLIA [id number] [place], [place] [address]Qzbzfc SerPl-mCncon 33-46-2431Abjgjaqq [Mass/Vol]5.8 ug/dLNormal4.8-19.5ClevelSuburban Community Hospital & [facility] on above:Order Comment: Specimen Type: BLOOD SPECIMENOrdering Facility: [facility] Address:[address] [place], [place] [address]Result Comment: Provided reference range is from 6-10 AM sample collection time. Cortisol Reference Range: 6-10 AM = 4.8-19.5 ug/dL, 4-8 PM = 2.5-11.9 ug/dL Performed By: #### 3016-3, 2143-6 ####[facility]IA [id number] [address] [place] HbA1c (Bld)on 22-79-5922Lxxglnk glucose Estimated from glycated hemoglobin (Bld) [Mass/Vol]103 mg/dLNormalCPremier Health [facility] on above:Order Comment: Specimen Type: BLOOD SPECIMENOrdering Facility: [facility] Address:[address] [place], [place] [address]Result Comment: eAG: (Estimated average glucose) is a calculated value from HgbA1c and is representa tive of the average blood glucose level in the last 2-3 month period.Performed By: #### 84690-4 ####[facility]IA [id number] [place] [address] [place] IUMRFMFXdY6p (Bld) [Mass fraction]5.2 %Normal4.3-5.6CPremier Health [facility] on above:Order Comment: Specimen Type: BLOOD SPECIMENOrdering Facility: [facility] Address:[address] [place], [place] [address]Result Comment: [place] [employer] guidelines indicate that patients with HgbA1c in the range 5.7-6.4% are at increased risk for development of diabetes, and intervention by lifestyle modification may be beneficial. HgbA1c greater or equal to 6.5% is considered diagnostic of diabetes.Performed By: #### 38133-1 ####[facility] LABCLIA [id number] [place] [address] [place] [facility]ITALTS SerPl-aCncon 19-49-2344RHZ Qn4.070 m[IU]/L Normal0.270-4.200[facility] on above:Order Comment: Specimen Type: BLOOD SPECIMENOrdering Facility: [facility] Address:[address] [place], [place] [address]Performed By: #### 3016-3, 2143-6 ####[facility] LABCLIA [id number] [place] [address] [place] AMERICABIOAVAILABLE TESTOSTERONE, ADULT MALEon 55-32-0885Nwxblnn [Mass/Vol]4.8 g/dLNormal3.9-4.9CPremier [facility] on above:Order Comment: Specimen Type: BLOOD SPECIMEN [facility] Address: [address] [place], [place] [address]Performed By: #### SQBTESTM #### [facility] CLIA [id number] [address] [place] [address] [place] AMERICASex hormone binding globulin [Moles/Vol]54 nmol/KQogfah31-21AfsyqozihCleveland Clinic on above:Order Comment: Specimen Type: BLOOD SPECIMEN [facility] Address: [address] [place], [place] [address]Performed By: #### SQBTESTM #### [facility] CLIA [id number] [address] [place] [address] [place] AMERICATestosterone [Mass/Vol]594 ng/rQFtxgjv389-280SwapoonjlPremier Health [facility] Center on above:Order Comment: Specimen Type: BLOOD SPECIMEN [facility] Address: [address] [place], [place] [address]Result Comment: A testosterone level in the 193-320 ng/dL range with associated clinical symptoms is considered low and may indicate hypogonadism (from [facility] 2010 363:123-135). Results >320 ng/dL are considered normal.Performed By: #### SQBTESTM #### [facility] CLIA [id number] [address] [place] [address] [place] ITDXGWXBSCFHD065.4 ng/dLNormal 105.0-324.0[facility] on above:Order Comment: Specimen Type: BLOOD SPECIMEN [facility] Address: [address] [place], [place] [address]Performed By: #### SQBTESTM #### [facility] CLIA [id number] [address] [place] [address] [place] TOYRDNACASVNU04.5 pg/mLNormal 38.0-120.0[facility] on above:Order Comment: Specimen Type: BLOOD SPECIMEN [facility] Address: [address] [place], [place] [address]Performed By: #### SQBTESTM #### [facility] CLIA [id number] [address] [place] [address] [place] AMERICATSTFRP1.4 %Normal1.1-2.6 [facility] on above:Order Comment: Specimen Type: BLOOD SPECIMEN [facility] Address: [address] [place], [place] [address]Performed By: #### SQBTESTM #### [facility] CLIA [id number] [address] [place] [address] [place] AMERICACBC W Auto Differential panel (Bld)on 38-85-8694Qcdnwcvgy (Bld) [#/Vol]0.05 10*3/uLNormal<0.11CPremier Health [facility] on above:Order Comment: Specimen Type: BLOOD SPECIMENOrdering Facility: [facility] Address:[address] [place], [place] [address]Performed By: #### 41757-6 ####[facility] LABCLIA [id number] [place], [place] [address]Uqwerhdcv/100 WBC (Bld)0.7 %NormalCleveland Clinic on above:Order Comment: Specimen Type: BLOOD SPECIMENOrdering Facility: [facility] Address:[address] [place], [place] [address]Performed By: #### 98156-4 ####[facility] LABCLIA [id number] [place], [place] [address]Tebgxsbmvbjd cell count method Nom (Bld)AutoNormal [facility] on above:Order Comment: Specimen Type: BLOOD SPECIMENOrdering Facility: [facility] Address:[address] [place], [place] [address]Performed By: #### 01822-6 ####[facility] LABCLIA [id number] [place], [place] [address]Evgygfesbjp (Bld) [#/Vol]0.48 10*3/uLHigh<0.46[facility] on above: Order Comment: Specimen Type: BLOOD SPECIMENOrdering Facility: [facility] Address:[address] [place], [place] [address]Performed By: #### 78434- 8 ####[facility] LABCLIA [id number] [place], [place] [address]Ngbkuxxdtbr/100 WBC (Bld)6.5 %NormalCleveland Clinic on above:Order Comment: Specimen Type: BLOOD SPECIMENOrdering Facility: [facility] Address:[address] [place], [place] [address]Performed By: #### 07434-9 ####[facility] LABIA [id number] [place], [place] [address]Ftnznnunjbb distribution width (RBC) [Ratio]12.6 %Hskali89.5-15.0[facility] on above: Order Comment: Specimen Type: BLOOD SPECIMENOrdering Facility: [facility] Address:[address] [place], [place] [address]Performed By: #### 79952- 8 ####[facility] LABIA [id number] [place], [place] [address]Ehtzmzhalm (Bld) [Volume fraction]44.2 %Zxzvav77.0-51.0 [facility] on above:Order Comment: Specimen Type: BLOOD SPECIMENOrdering Facility: [facility] Address:[address] [place], [place] [address]Performed By: #### 09152-1 ####[facility] LABIA [id number] [place], [place] [address]Ofldtyiozu (Bld) [Mass/Vol]15.1 g/lNYtcgbq77.0-17.0[facility] on above: Order Comment: Specimen Type: BLOOD SPECIMENOrdering Facility: [facility] Address:[address] [place], [place] [address]Performed By: #### 59225- 8 ####[facility] LABIA [id number] [place], [place] [address]Gkrvrlfb granulocytes (Bld) [#/Vol]10*3/uLNormal<0.10 [facility] on above:Order Comment: Specimen Type: BLOOD SPECIMENOrdering Facility: [facility] Address:[address] [place], [place] [address]Performed By: #### 99832-5 ####[facility] LABIA [id number] [place], [place] [address]Hglifpvf granulocytes/100 WBC (Bld)0.3 %NormalCleveland Clinic on above: Order Comment: Specimen Type: BLOOD SPECIMENOrdering Facility: [facility] Address:[address] [place], [place] [address]Performed By: #### 20349- 8 ####[facility] LABCLIA [id number] [place], [place] [address]Nacozgfljmo (Bld) [#/Vol]1.29 10*3/uLNormal1.00-4.00 [facility] on above:Order Comment: Specimen Type: BLOOD SPECIMENOrdering Facility: [facility] Address:[address] [place], [place] [address]Performed By: #### 54571-8 ####[facility] LABCLIA [id number] [place], [place] [address]Bvedyguxzwq/100 WBC (Bld)17.5 %NormalCleveland Clinic on above:Order Comment: Specimen Type: BLOOD SPECIMENOrdering Facility: [facility] Address:[address] [place], [place] [address]Performed By: #### 89903-4 ####[facility] LABCLIA [id number] [place], [place] [address]JKB (RBC) [Entitic mass]29.3 xtPkslqc03.0-34.0[facility] on above:Order Comment: Specimen Type: BLOOD SPECIMENOrdering Facility: [facility] Address:[address] [place], [place] [address]Performed By: #### 87796-5 ####[facility] LABCLIA [id number] [place], [place] [address]TEEZ (RBC) [Mass/Vol]34.2 g/zOSrfvan33.5-36.0[facility] on above: Order Comment: Specimen Type: BLOOD SPECIMENOrdering Facility: [facility] Address:[address] [place], [place] [address]Performed By: #### 33738- 8 ####[facility] LABCLIA [id number] [place], [place] [address]MHK (RBC) [Entitic vol]85.8 yXFtsaqi57.0-100.0[facility] on above:Order Comment: Specimen Type: BLOOD SPECIMENOrdering Facility: [facility] Address:[address] [place], [place] [address]Performed By: #### 26081-3 ####[facility] LABCLIA [id number] [place], [place] [address]Hkiijiadu (Bld) [#/Vol]0.68 10*3/uLNormal<0.87[facility] on above:Order Comment: Specimen Type: BLOOD SPECIMENOrdering Facility: [facility] Address:[address] [place], [place] [address]Performed By: #### 81707- 8 ####[facility] LABCLIA [id number] [place], [place] [address]Vegsuhxfa/100 WBC (Bld)9.2 %NormalCleveland Clinic on above:Order Comment: Specimen Type: BLOOD SPECIMENOrdering Facility: [facility] Address:[address] [place], [place] [address]Performed By: #### 74290-5 ####[facility] LABCLIA [id number] [place], [place] [address]Ecmqsijwgog (Bld) [#/Vol]4.84 10*3/uLNormal1.45-7.50[facility] on above:Order Comment: Specimen Type: BLOOD SPECIMENOrdering Facility: [facility] Address:[address] [place], [place] [address]Performed By: #### 94864-9 ####[facility] LABCLIA [id number] [place], [place] [address]Rtkdegvjvjt/100 WBC (Bld)65.8 %NormalCleveland Clinic on above:Order Comment: Specimen Type: BLOOD SPECIMENOrdering Facility: [facility] Address:[address] [place], [place] [address]Performed By: #### 84755-6 ####[facility] LABCLIA [id number] [place], [place] [address]Ifwstgpxy RBC (Bld) [#/Vol] 10*3/uLNormal<0.01[facility] on above:Order Comment: Specimen Type: BLOOD SPECIMENOrdering Facility: [facility] Address:[address] [place], [place] [address]Performed By: #### 20530-1 ####[facility] LABCLIA [id number] [place], [place] [address]Peftipwbo RBC/100 WBC (Bld) [Ratio]0.0 /100 WBCNormal [facility] on above:Order Comment: Specimen Type: BLOOD SPECIMENOrdering Facility: [facility] Address:[address] [place], [place] [address]Performed By: #### 07656-8 ####[facility] LABCLIA [id number] [place], [place] [address]Mpionfaz mean volume (Bld) [Entitic vol]8.4 fLLow9.0-12.7CPremier [facility] on above:Order Comment: Specimen Type: BLOOD SPECIMENOrdering Facility: [facility] Address:[address] [place], [place] [address]Performed By: #### 61527-4 ####[facility] LABCLIA [id number] [place], [place] [address]Bwtodyeam (Bld) [#/Vol]172 10*3/iSImmnlw958-080QbbsrforjCleveland Clinic on above:Order Comment: Specimen Type: BLOOD SPECIMENOrdering Facility: [facility] Address:[address] [place], [place] [address]Performed By: #### 06468-3 ####[facility] LABCLIA [id number] [place], [place] [address]MHQ (Bld) [#/Vol]5.15 10*6/uLNormal4.20-6.00[facility] on above: Order Comment: Specimen Type: BLOOD SPECIMENOrdering Facility: [facility] Address:[address] [place] [address]Vnnpevuzq By: #### 45906- 8 ####[facility] LABCLIA [id number] [place], [place] [address]WAI (Bld) [#/Vol]7.36 10*3/uLNormal3.70-11.00[facility] on above:Order Comment: Specimen Type: BLOOD SPECIMENOrdering Facility: [facility] Address:[address] [place] [address]Ptubukjvd By: #### 36161-4 ####[facility] LABCLIA [id number] [place], [place] [address]YLLYJBcq 27-95-5441WHMMGDSrzbq (SP) Office ([place]) CAITLIN ELMORE ([id number]) 1965 M Date Time Provider Department 11/01/24 1:30 PM VICKY MAGUIRE During your visit today, we recorded the following information about you: Temperature Pulse Respiration Blood pressure 97.8 degrees 59/minute 16/minute 113/70 Weight Height 93.9 kg 1.791 m Vicky Maguire APRN.CNP 11/01/2024 1:38 PM Signed NAME: Caitlin Elmore [facility] NO.: [id number] DATE OF SERVICE: November 01, 2024 (Maria [...] received a total of 200 mg/m2 of [place] as well. PET with response 04/2023. CT [...] 6 weeks for treatment Labs same day - HPI: CASE HISTORY: Reverse Chronological Order CT [...] mild uptake are also seen. HEAD/NECK, ABDOMEN/PELVIS, AND EXTREMITIES/SKELETON: No evidence of focal uptake to suggest FDG avid neoplastic process. 08/2023 - RUL biopsy: Lung, right upper lobe, nodule, biopsy: - HPV-associated squamous cell carcino (more content not included)...Normal [facility] Hospitalpreausten [facility] centerve [facility] 2000 panelon 32-96-9170Znrdbam [Mass/Vol]4.8 g/dLNormal3.9-4.9CPrem[facility] on above:Order Comment: Specimen Type: BLOOD SPECIMENOrdering Facility: [facility] Address:[address] [place], [place] [address]Performed By: #### 64492- 8 ####[facility] LABCLIA [id number] [place], [place] [address]PIK [Catalytic activity/Vol]86 U/HQfimrn46-344RdxedlfdeCleveland Clinic on above:Order Comment: Specimen Type: BLOOD SPECIMENOrdering Facility: [facility] Address:[address] [place], [place] [address]Performed By: #### 39887-2 ####[facility] LABCLIA [id number] [place], [place] [address]ACM [Catalytic activity/Vol]19 U/MGesryo35-78IzlydbpyqCleveland Clinic on above:Order Comment: Specimen Type: BLOOD SPECIMENOrdering Facility: [facility] Address:[address] [place], [place] [address]Performed By: #### 97087- 8 ####[facility] LABCLIA [id number] [place], [place] [address]Vkyqq gap [Moles/Vol]8 mmol/LNormal8-15[facility] on above:Order Comment: Specimen Type: BLOOD SPECIMENOrdering Facility: [facility] Address:[address] [place], [place] [address]Performed By: #### 36760-2 ####[facility] LABCLIA [id number] [place], [place] [address]IBV [Catalytic activity/Vol]12 U/ZRlx16-35TsnmpykgsCleveland Clinic on above:Order Comment: Specimen Type: BLOOD SPECIMENOrdering Facility: [facility] Address:[address] [place], [place] [address]Performed By: #### 23228-1 ####[facility] LABCLIA [id number] [facility] PASCALEBANNER CARDON [place] [address] Bilirubin [Mass/Vol]0.4 mg/dLNormal0.2-1.3CPrem[facility] on above:Order Comment: Specimen Type: BLOOD SPECIMENOrdering Facility: [facility] Address:[address] [place], [place] [address]Performed By: #### 40107-0 ####[facility] LABCLIA [id number] [facility] [place], [place] [address]Zzqgidq [Mass/Vol]10.0 mg/dLNormal8.5-10.2CPrem[facility] on above:Order Comment: Specimen Type: BLOOD SPECIMENOrdering Facility: [facility] Address:[address] [place], [place] [address]Performed By: #### 76317-2 ####[facility] LABCLIA [id number] [facility] [place], [place] [address]Efigdzxm [Moles/Vol]101 mmol/LBmbipa43-223VrngitafjCleveland Clinic on above: Order Comment: Specimen Type: BLOOD SPECIMENOrdering Facility: [facility] Address:[address] [place], [place] [address]Performed By: #### 40260- 8 ####[facility] LABCLIA [id number] [facility] DARYL BONNERBANNER CARDON CHILDREN'S MED[facility] [place], [place] [address]MJ6 [Moles/Vol]28 mmol/DRfctzr39-72KxbiltcobCleveland Clinic on above:Order Comment: Specimen Type: BLOOD SPECIMENOrdering Facility: [facility] Address:[address] [place], [place] [address]Performed By: #### 28893-9 ####[facility] LABCLIA [id number] [place], [place] [address]Sefrzeqrxv [Mass/Vol]1.48 mg/dL High0.73-1.22[facility] on above:Order Comment: Specimen Type: BLOOD SPECIMENOrdering Facility: [facility] Address:[address] [place] [address]Mtswzxqka By: #### 86992-2 ####[facility] LABIA [id number] [place] [address] Creatinine and Glomerular filtration rate.predicted panel (S/P/Bld)55 mL/min/1.73m???Low>=60[facility] on above:Order Comment: Specimen Type: BLOOD SPECIMENOrdering Facility: [facility] Address:[address] [place], [place] [address]Result Comment: Estimated Glomerular Filtration Rate (eGFR) is calculated using the 2020 CKD-EPI creatinine equation. This equation utilizes serum creatinine, sex, and age as parameters. The creatinine assay has traceable calibration to isotope dilution-mass spectrometry. Refer to KDIGO guidelines for clinical interpretation. In patients with unstable renal function, e.g. those with acute kidney injury, the eGFR may not accurately reflect actual GFR.Performed By: #### 46527-2 ####[facility] LABIA [id number] [place] [address] Glucose [Mass/Vol]99 mg/uINktjni20-45BnmhoowbxCleveland Clinic on above: Order Comment: Specimen Type: BLOOD SPECIMENOrdering Facility: [facility] Address:[address] [place] [address]Frjzej Comment: The [place] Diabetes Association (ADA) provides guidance for cutoff values for fast ing glucose and random glucose. The ADA defines [...] Standards of Medical Care in Diabetes 2016, [place] [employer]. Diabetes Care. 2016.39(Suppl 1).Performed By: #### 11780-1 ####[facility] LABCLIA [id number] [facility] [place], [place] [address]Ankqooexi [Moles/Vol]4.0 mmol/LNormal3.7-5.1CPrem[facility] on above:Order Comment: Specimen Type: BLOOD SPECIMENOrdering Facility: [facility] Address:[address] [place], [place] [address]Performed By: #### 89757-4 ####[facility] LABCLIA [id number] [place], [place] [address]Ktjqvwv [Mass/Vol]7.2 g/dLNormal6.3-8.0[facility] on above:Order Comment: Specimen Type: BLOOD SPECIMENOrdering Facility: [facility] Address:[address] [place], [place] [address]Performed By: #### 71098- 8 ####[facility] LABCLIA [id number] [place], [place] [address]Iunhuk [Moles/Vol]137 mmol/XHdnzgh785-288FanubagbvCleveland Clinic on above:Order Comment: Specimen Type: BLOOD SPECIMENOrdering Facility: [facility] Address:[address] [place], [place] [address]Performed By: #### 14023-6 ####[facility] LABCLIA [id number] [place], [place] [address]Qxor nitrogen [Mass/Vol]22 mg/dLNormal9-24[facility] on above:Order Comment: Specimen Type: BLOOD SPECIMENOrdering Facility: [facility] Address:[address] [place], [place] [address]Performed By: #### 09031-6 ####[facility] LABCLIA [id number] [place], [place] [address]Bkpeer SerPl-mCncon 89-33-6919Jvdyzcgm [Mass/Vol]6.7 ug/dLNormal4.8-19.5CPrem[facility] on above:Order Comment: Specimen Type: BLOOD SPECIMENOrdering Facility: [facility] Address:[address] [place], [place] [address]Result Comment: Provided reference range is from 6-10 AM sample collection time. Cortisol Reference Range: 6-10 AM = 4.8-19.5 ug/dL, 4-8 PM = 2.5-11.9 ug/dL Performed By: #### 2143-6, 3016-3 ####[facility] LABIA [id number] [address] [place] FSH SerPl-aCncon 02-14-1820Sxxblwxorbn Qn20.1 m[IU]/mLHigh1.5-12.4ClevelSuburban Community Hospital [facility] on above:Order Comment: Specimen Type: BLOOD SPECIMENOrdering Facility: [facility] Address:[address] [place], [place] [address]Performed By: #### 05401-5, 3024-7, 2842-3, 19591-2 ####[facility] LABIA [id number] [place] [address] [place] FCZPKKUTqD4y (Bld)on 37-35-1713Zydruhq glucose Estimated from glycated hemoglobin (Bld) [Mass/Vol]103 mg/dLNormal [facility] on above:Order Comment: Specimen Type: BLOOD SPECIMENOrdering Facility: [facility] Address:[address] [place], [place] [address]Result Comment: eAG: (Estimated average glucose) is a calculated value from HgbA1c and is market survey representative of the average blood glucose level in the last 2-3 month period.Performed By: #### 04509-3 ####[facility] LABCLIA [id number] [address] OF DKGOEOVQxB3y (Bld) [Mass fraction]5.2 %Normal4.3-5.6 [facility] on above:Order Comment: Specimen Type: BLOOD SPECIMENOrdering Facility: [facility] Address:[address] [place], [place] [address]Result Comment: [place] Diabetes Association guidelines indicate that patients with HgbA1c in the range 5.7-6.4% are at increased risk for development of diabetes, and intervention by lifestyle modification may be beneficial. HgbA1c greater or equal to 6.5% is considered diagnostic of diabetes.Performed By: #### 93797-7 ####[facility] LABCLIA [id number] [address] [place] LH SerPl-aCncon 53-20-8062Xzzqgzzs Qn12.7 m[IU]/mLHigh1.8-10.8CPrem[facility] on above:Order Comment: Specimen Type: BLOOD SPECIMENOrdering Facility: [facility] Address:[address] [place], [place] [address]Performed By: #### 01716-5, 3024-7, 2842-3, 57495-1 ####[facility] LABCLIA [id number] [place] [address] [place] AMERICAProlactin SerPl-mCncon 31-61-3367Oincvhwqa [Mass/Vol]9.0 ng/mLNormal4.1-25.1CPremier [facility] on above:Order Comment: Specimen Type: BLOOD SPECIMENOrdering Facility: [facility] Address:[address] [place], [place] [address]Result Comment: Prolactin test is performed using the [employer] Electrochemiluminescence Immunoassay method. Results obtained with different methods or kits cannot be used interchangeably.Performed By: #### 95968-4, 3024-7, 2842-3, 43301-2 ####[facility] LABCLIA [id number] [place] [address] [place] AMERICAT4 Free SerPl-mCncon 11-01-2024 Free T4 [Mass/Vol]1.5 ng/dLNormal0.9-1.7CPrem[facility] on above:Order Comment: Specimen Type: BLOOD SPECIMENOrdering Facility: [facility] Address:[address] [place], [place] [address]Performed By: #### 18613-8, 3024-7, 2842-3, 12697-2 ####[facility] LABCLIA [id number] [address] OF [place] TSH SerPl-aCncon 78-72-4695FGT Qn4.700 m[IU]/LHigh0.270-4.200[facility] on above:Order Comment: Specimen Type: BLOOD SPECIMENOrdering Facility: [facility] Address:[address] [place], [place] [address]Performed By: #### 2143-6, 3016-3 ####[facility] LABCLIA [id number] [address] OF [place] CNOVon 44-82-4030XHEVGosmly Visit (RTMNCA) CAITLIN ELMORE ([id number]) 1965 M Date Time Provider Department 10/31/24 11:30 AM TAYLA ELLSWORTH RTMNCA During your visit today, we recorded the following information about you: Temperature Pulse Respiration Blood pressure 97.9 degrees 73/minute 18/minute 125/70 Weight 94.7 kg Tayla Ellsworth MD 11/03/2024 4:58 PM Signed Radiation Oncology - Follow Up Note PATIENT NAME: Caitlin Elmore PATIENT DIAGNOSIS: Oligoprogressive 2 RUL lung metastases, from previously treated HANDN cancer. S/p lung SBRT 07/05/2024 Single isocenter for 2 lung lesions: 3400 cGy in 1 fx ONCOLOGIC HX: 1. HPV positive BOT SCC Treatment History: 1. Concurrent Cisplatin and XRT 11/21/2021- XRTY completed 01/06/2023 and last dose of chemo 12/21/2022 (Total [place] dose= 200 mg/m2) 2. Recurrence in the [...] therapy perspective. Results CT CHEST WO IVCON (Acc#[id number]) (Order [id number]) Patient Info Patient Name Sex Caitlin Jorgensen ([id number]) Male 1965 10/31/2024 11:24 AM - Radiology, [...] on follow-up recommended. Presumed prior granulomatous infection. Wool Broker: PSCB Transcribe Date/Time: Oct 31 2024 10:58A Dictated [...] VS: BP 125/70 Pulse 73 Temp 36.6 ?C (97.9 ?F) (Temporal) Resp 18 Wt 94.7 kg (208 lb 12.4 oz) SpO2 96% BMI 29.96 kg/m? KPS: 100 General Appearance: Alert and oriented. [...] demonstrates excellent partial response in the treated tumors (more content not included)...NormalC[facility] CHEST WO IVCONon 91-17-7030PR CHEST WO IVCON* * *Final Report* * * DATE OF [...] 2 RUL lung metastases, from previously treated HandN cancer. Treatment History: - 1. Concurrent Cisplatin and XRT 11/21/2021- XRTY completed 01/06/2023 and last dose of chemo 12/21/2022 (Total [place] dose= 200 mg/m2) - 2 . Recurrence [...] Limitations: Minimal cardiac pulsation related motion noted. Food Manager (topogram) images: No additional findings. Lines, tubes, [...] noted. Otherwise stable unenhanced upper abdominal structures. IMPRESSION: 1. Interval decrease in size of [...] on follow-up recommended. Presumed prior granulomatous infection. Wool Broker: JALEN Transcribe Date/Time: Oct 31 2024 1 (more content not included)...Normal [facility] Chest WO contraston 11-43-7146LPKZQUMLVY: 1. Interval decrease in size of treated [...] on follow-up recommended. Presumed prior granulomatous infection. Wool Broker: JALEN Transcribe Date/Time: Oct 31 2024 10:58A Dictated by : ELISEO DORSEY MD This examination was interpreted and the report reviewed and electronically signed by: ELISEO DORSEY MD on Oct 31 2024 11:22AM [facility] DIVISION OF RADIOLOGY* * *Final Report* * * DATE OF EXAM: Oct 31 2024 10:31AM [facility] 0541 - CT CHEST WO IVCON / [...] and last dose of chemo 12/21/2022 (Total [place] dose= 200 mg/m2) - 2 . Recurrence [...] Limitations: Minimal cardiac pulsation related motion noted. Food Manager (topogram) images: No additional findings. Lines, tubes, [...] stable unenhanced upper abdominal structures. DIVISION OF RADIOLOGYProvider, [facility] [place] - 10/31/2024 * * *Final Report* * [...] and last dose of chemo 12/21/2022 (Total [place] dose= 200 mg/m2) - 2 . Recurrence [...] Limitations: Minimal cardiac pulsation related motion noted. Food Manager (topogram) images: No additional findings. Lines, tubes, [...] to 05/03/2024 exa (more content not included)... [facility] HospitalRadiology Study observation (narrative)[facility] Chest WO contrastOrdered By: Ccf Provider on 87-25-1585Xpzydzcvb [facility] W Auto Differential panel (Bld)on 00-82-4673Ikmxabtvv (Bld) [#/Vol]0.04 10*3/uLNormal <0.11CMartins Ferry HospitalComment on above:Order Comment: Specimen Type: BLOOD SPECIMENOrdering Facility: [facility] Address:[address] [place], [place] [address]Performed By: #### 07898-6 ####[facility] LABCLIA [id number] [place] [address] Basophils/100 WBC (Bld)0.7 %NormalCleveland Clinic on above: Order Comment: Specimen Type: BLOOD SPECIMENOrdering Facility: [facility] Address:[address] [place], [place] [address]Performed By: #### 26084- 8 ####[facility] LABCLIA [id number] [place], [place] [address]Xdmjxellvluf cell count method Nom (Bld)AutoNormal [facility] on above:Order Comment: Specimen Type: BLOOD SPECIMENOrdering Facility: [facility] Address:[address] [place], [place] [address]Performed By: #### 03557-9 ####[facility] LABIA [id number] [place], [place] [address]Bdpsdfyczxk (Bld) [#/Vol]0.39 10*3/uLNormal<0.46[facility] on above: Order Comment: Specimen Type: BLOOD SPECIMENOrdering Facility: [facility] Address:[address] [place], [place] [address]Performed By: #### 64956- 8 ####[facility] LABIA [id number] [place], [place] [address]Xiyqjpddffv/100 WBC (Bld)6.5 %NormalCleveland Clinic on above:Order Comment: Specimen Type: BLOOD SPECIMENOrdering Facility: [facility] Address:[address] [place], [place] [address]Performed By: #### 66699-7 ####[facility] LABIA [id number] [place], [place] [address]Dztfjgqcpaq distribution width (RBC) [Ratio]12.6 %Sgauga98.5-15.0[facility] on above: Order Comment: Specimen Type: BLOOD SPECIMENOrdering Facility: [facility] Address:[address] [place], [place] [address]Performed By: #### 47488- 8 ####[facility] LABCLIA [id number] [place], [place] [address]Pnynxxgzti (Bld) [Volume fraction]44.6 %Pjgetp04.0-51.0 [facility] on above:Order Comment: Specimen Type: BLOOD SPECIMENOrdering Facility: [facility] Address:[address] [place], [place] [address]Performed By: #### 22851-6 ####[facility] LABIA [id number] [place], [place] [address]Rfvedvddty (Bld) [Mass/Vol]15.3 g/zZNgntqw30.0-17.0[facility] on above: Order Comment: Specimen Type: BLOOD SPECIMENOrdering Facility: [facility] Address:[address] [place], [place] [address]Performed By: #### 17206- 8 ####[facility] LABIA [id number] [place], [place] [address]Dmiplzpt granulocytes (Bld) [#/Vol]10*3/uLNormal<0.10 [facility] on above:Order Comment: Specimen Type: BLOOD SPECIMENOrdering Facility: [facility] Address:[address] [place], [place] [address]Performed By: #### 03337-4 ####[facility] LABCLIA [id number] [place], [place] [address]Ywfptkti granulocytes/100 WBC (Bld)0.3 %NormalCleveland Clinic on above: Order Comment: Specimen Type: BLOOD SPECIMENOrdering Facility: [facility] Address:[address] [place], [place] [address]Performed By: #### 12175- 8 ####[facility] LABCLIA [id number] [place], [place] [address]Ehnbzrgwscl (Bld) [#/Vol]1.07 10*3/uLNormal1.00-4.00 [facility] on above:Order Comment: Specimen Type: BLOOD SPECIMENOrdering Facility: [facility] Address:[address] [place], [place] [address]Performed By: #### 07569-9 ####[facility] LABCLIA [id number] [place], [place] [address]Xjduurpwdve/100 WBC (Bld)17.9 %NormalCleveland Clinic on above:Order Comment: Specimen Type: BLOOD SPECIMENOrdering Facility: [facility] Address:[address] [place], [place] [address]Performed By: #### 92235-7 ####[facility] LABCLIA [id number] [place], [place] [address]BZC (RBC) [Entitic mass]29.3 osEhrhaw67.0-34.0[facility] on above:Order Comment: Specimen Type: BLOOD SPECIMENOrdering Facility: [facility] Address:[address] [place], [place] [address]Performed By: #### 82964-7 ####[facility] LABCLIA [id number] [place], [place] [address]FCNZ (RBC) [Mass/Vol]34.3 g/bCHprrhu82.5-36.0[facility] on above: Order Comment: Specimen Type: BLOOD SPECIMENOrdering Facility: [facility] Address:[address] [place], [place] [address]Performed By: #### 11184- 8 ####[facility] LABCLIA [id number] [place], [place] [address]JHN (RBC) [Entitic vol]85.3 yKHavdex49.0-100.0[facility] on above:Order Comment: Specimen Type: BLOOD SPECIMENOrdering Facility: [facility] Address:[address] [place], [place] [address]Performed By: #### 91172-2 ####[facility] LABCLIA [id number] [place], [place] [address]Riuycwqwp (Bld) [#/Vol]0.60 10*3/uLNormal<0.87[facility] on above:Order Comment: Specimen Type: BLOOD SPECIMENOrdering Facility: [facility] Address:[address] [place], [place] [address]Performed By: #### 29000- 8 ####[facility] LABCLIA [id number] [place], [place] [address]Lplrrvbmj/100 WBC (Bld)10.0 %NormalCleveland Clinic on above:Order Comment: Specimen Type: BLOOD SPECIMENOrdering Facility: [facility] Address:[address] [place], [place] [address]Performed By: #### 96625-4 ####[facility] LABCLIA [id number] [place], [place] [address]Zlpbmxhqjfe (Bld) [#/Vol]3.86 10*3/uLNormal1.45-7.50[facility] on above:Order Comment: Specimen Type: BLOOD SPECIMENOrdering Facility: [facility] Address:[address] [place], [place] [address]Performed By: #### 56201-6 ####[facility] LABCLIA [id number] [place], [place] [address]Yhzjmclizdq/100 WBC (Bld)64.6 %NormalCleveland Clinic on above:Order Comment: Specimen Type: BLOOD SPECIMENOrdering Facility: [facility] Address:[address] [place], [place] [address]Performed By: #### 96982-7 ####[facility] LABIA [id number] [place], [place] [address]Zzkmlaxjx RBC (Bld) [#/Vol] 10*3/uLNormal<0.01[facility] on above:Order Comment: Specimen Type: BLOOD SPECIMENOrdering Facility: [facility] Address:[address] [place], [place] [address]Performed By: #### 50910-8 ####[facility] LABCLIA [id number] [place], [place] [address]Dspeayopi RBC/100 WBC (Bld) [Ratio]0.0 /100 WBCNormal [facility] on above:Order Comment: Specimen Type: BLOOD SPECIMENOrdering Facility: [facility] Address:[address] [place], [place] [address]Performed By: #### 58066-3 ####[facility] LABCLIA [id number] [place], [place] [address]Svuiezfu mean volume (Bld) [Entitic vol]8.2 fLLow9.0-12.7CPremier Health [facility] on above:Order Comment: Specimen Type: BLOOD SPECIMENOrdering Facility: [facility] Address:[address] [place], [place] [address]Performed By: #### 85491-2 ####[facility] LABCLIA [id number] [place], [place] [address]Qblmhfema (Bld) [#/Vol]172 10*3/oHZjtqfn110-000TzzyyshuzCleveland Clinic on above:Order Comment: Specimen Type: BLOOD SPECIMENOrdering Facility: [facility] Address:[address] [place], [place] [address]Performed By: #### 44029-8 ####[facility] LABCLIA [id number] [place], [place] [address]TQK (Bld) [#/Vol]5.23 10*6/uLNormal4.20-6.00[facility] on above: Order Comment: Specimen Type: BLOOD SPECIMENOrdering Facility: [facility] Address:[address] [place], [place] [address]D [place], [place] [address]Votmrcvrc By: #### 49174- 8 ####[facility] LABCLIA [id number] [place], [place] [address]LIA (Bld) [#/Vol]5.98 10*3/uLNormal3.70-11.00TrihealthComment on above:Order Comment: Specimen Type: BLOOD SPECIMENOrdering Facility: [facility] Address:[address] [place], [place] [address]Yqjuhfkoo By: #### [id number] ####[facility] LABCLIA [id number] [place], [place] [address]YMNFEWib [id number] (SP) Office (HEMAS[place]) CAITLIN ELMORE ([id number]) 1965 M Date Time Provider Department 09/13/24 1:00 PM WHITNEY HALLMAN During your visit today, we recorded the following information about you: Temperature Pulse Respiration Blood pressure 97.3 degrees 66/minute 16/minute 123/75 Weight Height 95 kg 1.778 m Whitney Hallman APRN.CNP 09/13/2024 1:56 PM Signed NAME: Caitlin Elmore CLINIC NO.: [id number] DATE OF SERVICE: September 13, 2024 (Tang) [...] received a total of 200 mg/m2 of [place] as well. PET with response 04/2023. CT [...] 7 weeks for treatment Labs same day - HPI: CASE HISTORY: Reverse Chronological Order 06/28/2024-07/05/2024 [...] mild uptake are also seen. HEAD/NECK, ABDOMEN/PELVIS, AND EXTREMITIES/SKELETON: No evidence of focal uptake to suggest FDG avid neoplastic process. 08/2023 - RUL biopsy: Lung, right upper lobe, nodule, biopsy: - HPV-associated squamous cell carcinoma (see comment). KRAS p.Zvf72Ykk NM_033360.2:c.35G>A 51.2% VAF, Depth 4267x, Ex2 PIK3CA p.Hwc387Enm NM_006218.2:c.1633G>A 21.7% VAF, Depth 5015x, Ex10 PDL-1 [...] gland. This is concerning for primary prostatic maligna (more content not included)...NormalMercer County Community Hospitalprekensington hospitalsive metabolic 2000 panelon 78-01-5963Lxmqoyl [Mass/Vol]4.6 g/dLNormal3.9-4.9CMartins Ferry Hospital Comment on above:Order Comment: Specimen Type: BLOOD SPECIMENOrdering Facility: [facility] Address:[address] [place] [address] Performed By: #### 21370-7 ####[facility] LABCLIA [id number] [place], [place] [address]CPH [Catalytic activity/Vol]89 U/YLesytt35-446HknrteofqCleveland Clinic on above:Order Comment: Specimen Type: BLOOD SPECIMENOrdering Facility: [facility] Address:[address] [place], [place] [address]Performed By: #### 67772-8 ####[facility] LABCLIA [id number] [place], [place] [address]BWS [Catalytic activity/Vol]19 U/SWfdexn37-93RodowedguCleveland Clinic on above:Order Comment: Specimen Type: BLOOD SPECIMENOrdering Facility: [facility] Address:[address] [place], [place] [address]Performed By: #### 87487-8 ####[facility] LABCLIA [id number] [place], [place] [address]Ehlui gap [Moles/Vol]10 mmol/LNormal8-15[facility] on above:Order Comment: Specimen Type: BLOOD SPECIMENOrdering Facility: [facility] Address:[address] [place], [place] [address]Performed By: #### 88114- 8 ####[facility] LABCLIA [id number] [place], [place] [address]YPN [Catalytic activity/Vol]18 U/PTvjwmk42-19MulpklmysCleveland Clinic on above:Order Comment: Specimen Type: BLOOD SPECIMENOrdering Facility: [facility] Address:[address] [place], [place] [address]Performed By: #### 54465-6 ####[facility] LABCLIA [id number] [place], [place] [address]Kuznyjlid [Mass/Vol]0.4 mg/dLNormal0.2-1.3CPremier Health Upper [facility] on above:Order Comment: Specimen Type: BLOOD SPECIMENOrdering Facility: [facility] Address:[address] [place], [place] [address]Performed By: #### 11431- 8 ####[facility] LABCLIA [id number] [place], [place] [address]Rxdcroi [Mass/Vol]9.4 mg/dLNormal8.5-10.2CPremier Health Upper Valley [facility] on above:Order Comment: Specimen Type: BLOOD SPECIMENOrdering Facility: [facility] Address:[address] [place], [place] [address]Performed By: #### 16256-8 ####[facility] LABCLIA [id number] [place], [place] [address]Jslbpffh [Moles/Vol]106 mmol/L Uextjz09-675QeviooolvCleveland Clinic on above:Order Comment: Specimen Type: BLOOD SPECIMENOrdering Facility: [facility] Address:[address] [place], [place] [address]Performed By: #### 37286-4 ####[facility] LABCLIA [id number] [place] [address] CO2 [Moles/Vol]24 mmol/OFfqjzu92-50DiuopwjcyCleveland Clinic on above: Order Comment: Specimen Type: BLOOD SPECIMENOrdering Facility: [facility] Address:[address] [place], [place] [address]Performed By: #### 99001- 8 ####[facility] LABIA [id number] [place], [place] [address]Mdakxnkzgo [Mass/Vol]1.21 mg/dLNormal0.73-1.22[facility] on above:Order Comment: Specimen Type: BLOOD SPECIMENOrdering Facility: [facility] Address:[address] [place] [address]Wgpqzbave By: #### 77262-7 ####[facility] LABCLIA [id number] [place], [place] [address]Dfgeppwlrg and Glomerular filtration rate.predicted panel (S/P/Bld)69 mL/min/1.73m???Normal>=60 [facility] on above:Order Comment: Specimen Type: BLOOD SPECIMENOrdering Facility: [facility] Address:[address] [place], [place] [address]Result Comment: Estimated Glomerular Filtration Rate (eGFR) is calculated using the 2020 CKD-EPI creatinine equation. This equation utilizes serum creatinine, sex, and age as parameters. The creatinine assay has traceable calibration to isotope dilution-mass spectrometry. Refer to KDIGO guidelines for clinical interpretation. In patients with unstable renal function, e.g. those with acute kidney injury, the eGFR may not accurately reflect actual GFR.Performed By: #### 17937-6 ####[facility] LABCLIA [id number] [place], [place] [address]Bpvvqiw [Mass/Vol]101 mg/fKHlik17-93FhnaaswtsCleveland Clinic on above:Order Comment: Specimen Type: BLOOD SPECIMENOrdering Facility: [facility] Address:[address] [place] [address]Sixesv Comment: The [place] Diabetes Association (ADA) provides guidance for cutoff values for fast ing glucose and random glucose. The ADA defines [...] Standards of Medical Care in Diabetes 2016, [place] [employer] Association. Diabetes Care. 2016.39(Suppl 1).Performed By: #### 71604-2 ####[facility] LABCLIA [id number] [place], [place] [address]Xmzwawahi [Moles/Vol]4.0 mmol/LNormal3.7-5.1CPremier Health Upper [facility] on above:Order Comment: Specimen Type: BLOOD SPECIMENOrdering Facility: [facility] Address:[address] [place], [place] [address]Performed By: #### 62722-0 ####[facility] LABCLIA [id number] [place], [place] [address]Srkmdwy [Mass/Vol]7.0 g/dLNormal6.3-8.0[facility] on above:Order Comment: Specimen Type: BLOOD SPECIMENOrdering Facility: [facility] Address:[address] [place], [place] [address]Performed By: #### 31266- 8 ####[facility] LABCLIA [id number] [place], [place] [address]Yuzbbt [Moles/Vol]140 mmol/UXnzmrh341-068NdozgelcoCleveland Clinic on above:Order Comment: Specimen Type: BLOOD SPECIMENOrdering Facility: [facility] Address:[address] [place], [place] [address]Performed By: #### 11130-5 ####[facility] LABIA [id number] [place], [place] [address]Rliw nitrogen [Mass/Vol]15 mg/dLNormal9-24[facility] on above:Order Comment: Specimen Type: BLOOD SPECIMENOrdering Facility: [facility] Address:[address] [place], [place] [address]Performed By: #### 18860-5 ####[facility] LABIA [id number] [place], [place] [address]Afqmax SerPl-mCncon 84-69-9691Rreqklgc [Mass/Vol]6.9 ug/dLNormal4.8-19.5CPremier Health Upper [facility] on above:Order Comment: Specimen Type: BLOOD SPECIMENOrdering Facility: [facility] Address:[address] [place], [place] [address]Result Comment: Provided reference range is from 6-10 AM sample collection time. Cortisol Reference Range: 6-10 AM = 4.8-19.5 ug/dL, 4-8 PM = 2.5-11.9 ug/dL Performed By: #### 3016-3, 2143-6 ####[facility] LABCLIA [id number] [place] [address] [place] HbA1c (Bld)on 93-39-5075Rhjoqdu glucose Estimated from glycated hemoglobin (Bld) [Mass/Vol]97 mg/dLNormalClevelSuburban Community Hospital & [facility] on above:Order Comment: Specimen Type: BLOOD SPECIMENOrdering Facility: [facility] Address:[address] [place], [place] [address]Result Comment: eAG: (Estimated average glucose) is a calculated value from HgbA1c and is representa tive of the average blood glucose level in the last 2-3 month period.Performed By: #### 89949-2 ####[facility] LABCLIA [id number] [place] [address] [place] LTYZXMRTeD1r (Bld) [Mass fraction]5.0 %Normal4.3-5.6CPremier Health Upper [facility] on above:Order Comment: Specimen Type: BLOOD SPECIMENOrdering Facility: [facility] Address:[address] [place], [place] [address]Result Comment: [place] Diabetes Association guidelines indicate that patients with HgbA1c in the range 5.7-6.4% are at increased risk for development of diabetes, and intervention by lifestyle modification may be beneficial. HgbA1c greater or equal to 6.5% is considered diagnostic of diabetes.Performed By: #### 15278-8 ####[facility] LABCLIA [id number] [place] [address] [place] OF AMERICATSH SerPl-aCncon 12-06-8650OBU Qn3.930 m[IU]/L Normal0.270-4.200TrihealthComment on above:Order Comment: Specimen Type: BLOOD SPECIMENOrdering Facility: [facility] Address:[address] [facility] [address] [place] [address]Performed By: #### 3016-3, 2143-6 ####[facility] LABCLIA [id number] [place] [address]ISSOMDESK [id number] AMERICAANES POSTPROC EVALon 05-21-2024 ANES POSTPROC EVALHNO ID: [id number] Author: SHAUN SCHWAB MD Service: ? Author Type: Physician Type: Anesthesia Postprocedure Evaluation Filed: 05/21/2024 15:20 Note Text: POST ANESTHESIA EVALUATION NOTE : 1965 Procedure Summary Date: 05/21/24 Room / Location: [place] [address] / [facility] Anesthesia Start: 1041 Anesthesia Stop: 1141 Procedure: BRONCHOSCOPY,RIGID/FLEXIBLE W/ FLUORO,W/ENDOBRONCHIAL ULTRASOUND (EBUS) GUIDED TRANSTRACHEAL/ [...] May 21, 2024 TIME: 3:19 PM CSN: [id number] HospitalANES PRE-OPon 12-22-4448RXKN PRE-OPHNO ID: [id number] Author: SHAUN SCHWAB MD Service: ? Author Type: Physician Type: Anesthesia Preprocedure Evaluation Filed: 05/21/2024 09:55 Note Text: ANESTHESIOLOGY DAY OF SURGERY NOTE : 1965 Procedure Information Date/Time: 05/21/24 1030 Procedure: BRONCHOSCOPY,RIGID/FLEXIBLE W/ FLUORO,W/ENDOBRONCHIAL ULTRASOUND (EBUS) GUIDED TRANSTRACHEAL/ [...] and consent discussed: yes. Patient / Responsible [employer] agrees to proceed: yes Patient / [...] intubation. Vitals Value Taken Time BP 160/94 05/21/2446 Pulse 46 05/21/2446 Resp 17 05/21/24945 Temp 36.1 ?C (97 ?F) 05/21/24945 SpO2 100 % 05/21/24945 No current facility-administered medications on file as [...] May 21, 2024 TIME: 9:53 AM CSN: [id number] HospitalCYTOLOGY NON-GYNon 05-21-2024 ADEQUACY INTERPRETATIONNoBeth Israel Deaconess Medical CenterComment on above:Order Comment: Specimen Type: SPECIMEN OBTAINED BY ASPIRATION [facility] Address: [address] [place], [place] [address]Result Comment: A: #1,2,3,4 Necrosis B: #1,2,3 Non-diagnostic C: #1 Limited lymphoid sample #[address] Dean French / Adin Guevara Each letter in the above intra-procedural assessment refers to a unique site. The specific site is indicated in the final diagnosis portion of the report. Each number in this assessment references a discrete evaluation episode. Intra-procedural assessment performed at [facility], [address] [place], [place] [address]Performed By: #### CYTONON #### [facility] CLIA [id number] [address] [place] [address] OF AMERICACASE REPORTNoBeth Israel Deaconess Medical Center Comment on above:Order Comment: Specimen Type: SPECIMEN OBTAINED BY ASPIRATION [facility] Address: [address] [place] [address] Comment: Medical Cytology Report Case: [id number] Authorizing Provider: Ras Starr MD Collected: 05/21/2024 10:22 AM Ordering Location: [facility] Received: 05/21/2024 11:32 AM Endoscopy - ENDO Pathologist: Jason French MD Specimens: A) - Lymph Node, Transbronchial, 10R B) - Lymph Node, Transbronchial, 4L C) - Lymph Node, Transbronchial, Station 7Performed By: #### CYTONON #### [facility] CLIA [id number] [address] [place] [address] STATES OF AMERICACLINICAL HISTORYNoForsyth Dental Infirmary for Children HospitalComment on above:Order Comment: Specimen Type: SPECIMEN OBTAINED BY ASPIRATION [facility] Address: [address] [place], [place] [address]Result Comment: Pre-op diagnosis: Adenopathy [R59.9] 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 Histochemical stains with appropriate controls for AFB and GMS performed on cellblock A are negative for mycobacterial and fungal organisms, respectively. B. The limited benign lymphoid sample is present on the ThinPrep slide and in the cell block only, which explains the discrepancy between the GIULIA and final diagnoses for part B.Performed By: #### CYTONON #### [facility] CLIA [id number] [address] [place] [address] DIAGNOSISMelroseWakefield HospitalComment on above:Order Comment: Specimen Type: SPECIMEN OBTAINED BY ASPIRATION [facility] Address: [address] [place], [place] [address]Result Comment: A - Lymph Node, Transbronchial, Aspirate/Fine [...] Cell Block, Alcohol Fixed Performed By: #### CYTONON #### [facility] CLIA [id number] [address] [place] [address] PERFORMING LABNoBeth Israel Deaconess Medical CenterComment on above:Order Comment: Specimen Type: SPECIMEN OBTAINED BY ASPIRATION [facility] Address: [address] [place], [place] [address]Result Comment: Technical component, ladies attendant screening performed at [facility], [address] [place] [address] CLIA# [id number] Diagnostic interpretation performed at [facility], [address] [place] [address] CLIA# [id number] Gta: Jason French M.D.Performed By: #### CYTONON #### [facility] CLIA [id number] [address] [place], [place] [address]GROSS Medfield State HospitalComment on above:Order Comment: Specimen Type: SPECIMEN OBTAINED BY ASPIRATION [facility] Address: [address] [place], [place] [address]Result Comment: A. Lymph Node, Transbronchial 35 cc hazy red CytoLyt [...] 4 smears (2 air dried and 2 fixed).Performed By: #### CYTONON #### [facility] CLIA [id number] [address] [place] [address] Comment on above:Order Comment: Specimen Type: SPECIMEN OBTAINED BY ASPIRATION [facility] Address: [address] [place] [address] Comment: Pre-op diagnosis: Adenopathy [R59.9]Performed By: #### CYTONON #### [facility] CLIA [id number] [address] [place], [place] [address] PROGon 86-47-6373XMAQQSA PRONO ID: [id number] Author: YUE WILSON RN Service: ? Author [...] REFERRAL (RECOMMENDATION): None Electronically Signed By: YUE WILSONJewish Healthcare Center TIGRE ID: [id number] Author: SUJIT CLIFFORD, RN Service: Nursing Author Type: Registered Nurse [...] REFERRAL (RECOMMENDATION): None Electronically Signed By: Sujit CliffordHouse of the Good Samaritan PATHOLOGYon 13-84-3610CXVCHXPC 1:MelroseWakefield HospitalCommymichigan medical center gladwin on above:Order Comment: Specimen Type: TISSUE SPECIMENOrdering Facility: [facility] Address: [address] [place], [place] [address]Result Comment: GMS and AFB/Melissa stains were performed on the biopsy; no fungal or mycobacterial org anisms were identified. Addendum electronically signed by Ricki Canales MD on 05/27/2024 at 2:05 PM Performed By: #### S ####[facility] LABCLIA [id number] [place] [address] [place] OF AMERICACASE REPORT [facility] on above:Order Comment: Specimen Type: TISSUE SPECIMENOrdering Facility: [facility] Address: [address] [place], [place] [address]Result Comment: Surgical Pathology Report Case: [id number] Authorizing Provider: Ras Starr MD Collected: 05/21/2024 11:20 AM Ordering Location: [facility] Received: 05/21/2024 11:46 AM Endoscopy - ENDO Pathologist: Ricki Canales MD Specimen: Lymph Node, Biopsy, 10RPerformed By: #### S ####[facility] LABCLIA [id number] [address] STATES OF AMERICACLINICAL HISTORYNormalSymmes HospitalComment on above:Order Comment: Specimen Type: TISSUE SPECIMENOrdering Facility: [facility] Address: [address] [place] [address] Comment: Pre-op diagnosis: Adenopathy [R59.9] Nodular opacities in right lung measuring up to 1.6 cm worrisome for metastases, increased in size since 12/08/23 2. Mild right hilar lymphadenopathy, either stable or slightly smaller.Performed By: #### S ####[facility] LABCLIA [id number] [address] OF AMERICADIAGNOSIS COMMENT NormalSymmes HospitalComment on above:Order Comment: Specimen Type: TISSUE SPECIMENOrdering Facility: [facility] Address: [address] [place], [place] [address]Result Comment: A minute cluster of epithelial cells is noted, without prominent atypia, favored torepresent bronchial cells. No definite malignancy is identified. No definite lymph node tissue or granuloma is demonstrated. GMS and AFB/Melissa stains will be performed and results will be reported in an addendum. Laboratory Developed Test (LDT) Disclaimer: Performance characteristics of immunohistochemical, immunofluorescent and chromogenic in-situ hybridization tests have been determined by the performing laboratory within [facility]???s Bayron Rodriguez Pathology and Laboratory Medicine Department ([facility], [facility], [facility], [facility], [facility], [facility], or [facility]) in a manner consistent with CLIA requirements. One or more of these tests havenot been cleared or approved by the FDA. [facility] is regulated under CLIA as qualified to perform high-complexity testing. These tests are used for clinical purposes. They should not be regarded as investigational or for research. Positive and negative controls stain appropriately.Performed By: #### S ####[facility] LABCLIA [id number] [address] FINAL DIAGNOSISMelroseWakefield HospitalComment on above:Order Comment: Specimen Type: TISSUE SPECIMENOrdering Facility: [facility] Address: [address] [place], [place] [address]Result Comment: Lymph node, 10R, biopsy: -Necrotic material and minute cluster of bland epithelial cells (see comment). Performed By: #### S ####[facility]ITALIA [id number] [address]ETFINAL PERFORMING LAB MelroseWakefield HospitalComment on above:Order Comment: Specimen Type: TISSUE SPECIMENOrdering Facility: [facility] Address: [address] [place], [place] [address]Result Comment: Diagnostic interpretation performed at [facility], [address] [place], [place] [address]IA# [id number] Gta: Yasir Woods M.D.Performed By: #### S ####[facility]ITALIA [id number] [address]GROSS DESCRIPTIONMelroseWakefield HospitalCommymichigan medical center gladwin on above:Order Comment: Specimen Type: TISSUE SPECIMENOrdering Facility: [facility] Address: [address] [place], [place] [address]Result Comment: A. Lymph Node, Biopsy Received in formalin, labeled 10R TB BX, are multiple melara-red, soft and friable cylindrical tissue segments aggregating to 2.8 x 0.2 x <0.1 cm. Totally submitted in one cassette. CL May 21, 2024 3:16 PM. Gross examination performed at [facility], [address] [place] [id number] By: #### S ####[facility] LABCLIA [id number] [address] AVENUEDESK [id number] STATES OF AMERICACT Abdomen and Pelvis W contrast Marcie 05-03-2024 IMPRESSION: 1. No evidence of [...] any questions regarding this interpretation, please call [phone]. If you are unable to reach us at the number above, please feel free to contact [facility] eRadiology at [phone].DIVISION OF RADIOLOGY* * *Final Report* * * DATE OF EXAM: May 03 2024 8:40AM [facility] 0530 - CT ABD/PEL W IVCON / [...] Localizer images: No additional findings. DIVISION OF RADIOLOGYProvider, [facility] [place] - 05/03/2024 * * *Final Report* * * DATE OF EXAM: May 03 2024 8:40AM [facility] 0530 - CT ABD/PEL W IVCON / [...] any questions regarding this interpretation, please call [phone]. If you are unable to reach us at the number above, please feel free to contact [facility] eRadiology at [phone]. [facility] Abdomen and Pelvis W contrast IVOrdered By: Ccf Provider on 11-90-8241Laxndsbbh ClinicCT Chest W contrast Marcie 50-73-6410MTDNFAQCUQ: 1. Nodular opacities in right lung measuring [...] any questions regarding this interpretation, please call [phone]. If you are unable to reach us at the number above, please feel free to contact [facility] Hospitaliology at [phone].DIVISION OF RADIOLOGY* * *Final Report* * * DATE OF EXAM: May 03 2024 8:40AM [facility] 0539 - CT CHEST W IVCON / [...] Localizer images: No additional findings. DIVISION OF RADIOLOGYProvider, [facility] [place] - 05/03/2024 * * *Final Report* * * DATE OF EXAM: May 03 2024 8:40AM [facility] 0539 - CT CHEST W IVCON / [...] report reviewed and electronically signed by: DAVID LYE MD on May 03 2024 6:23PM EST Thank you for allowing us to participate in the care of your patient. Should there be any questions regarding this interpretation, please call [phone]. If you are unable to reach us at the number above, please feel free to contact [facility] eRadiology at [phone]. [facility] Panel Informationon 28-17-9226Oohobkojj Study observation (narrative)[facility] head/brain wo/w conon 92-63-1668SC head/brain wo/w [facility] [address] [place] [address] MRI Report Signed Patient: Caitlin Elmore MR#: [id number] : 1965 Acct:[id number] Age/Sex: 58 / M ADM Date: 04/12/24 Loc: MR Room: Type: [facility] Attending Dr: Tremaine Gomez PA-C Copies to: [...] Fior Gómez M.D.04/12/2024 10:29 AM Dictation Location: [place] [address] Transcribed By: [facility] 04/12/24 1029 Dictated By: Fior Gómez MD 04/12/24 1019 Signed By: 04/12/24 1029[facility] Physician GroupCorticotropin (P) [Mass/Vol]on 53-84-7339Xsqvnnylnadsmi and review of laboratory resultsNoSelect Medical Specialty Hospital - CantonLaboratory - Chemistry and Chemistry - challengeon 03-27-2024 Corticotropin (P) [Mass/Vol]10.6 pg/mL7.2 - 63.3 pg/mLCleveland ClinicComment on above:ACTH Reference Range: 7-10 am: 7.2 - 63.3 pg/mLCBC W Auto Differential panel (Bld)on 91-32-2280Icjsbxskv (Bld) [#/Vol]0.04 10*3/uLNINFWvumedicine Barnesville Hospital Basophils/100 WBC (Bld)0.8 %[facility] HospitalDifferential cell count method Nom (Bld)AutoCleveland ClinicEosinophils (Bld) [#/Vol]0.56 10*3/uLHighNINFWvumedicine Barnesville HospitalEosinophils/100 WBC (Bld)10.6 %[facility] HospitalErythrocyte distribution width (RBC) [Ratio]12.9 %11.5 - 15.0 %[facility] HospitalHematocrit (Bld) [Volume fraction]41.1 %39.0 - 51.0 %[facility] HospitalHemoglobin (Bld) [Mass/Vol]14.1 g/dL 13.0 - 17.0 g/dLWvumedicine Barnesville HospitalImmature granulocytes (Bld) [#/Vol]NINFCleveland Elbow Lake Medical CenterImmature granulocytes/100 WBC (Bld)0.4 %[facility] HospitalInterpretation and review of laboratory resultsAbnormalCleveland ClinicLymphocytes (Bld) [#/Vol]1.02 10*3/uLWvumedicine Barnesville HospitalLymphocytes/100 WBC (Bld)19.3 %[facility] Medical CenterH (RBC) [Entitic mass]29.6 pg26.0 - 34.0 pgClevelFederal Medical Center, RochesterHC (RBC) [Mass/Vol]34.3 g/dL30.5 - 36.0 g/dLTrumbull Regional Medical CenterV (RBC) [Entitic vol]86.3 fL80.0 - 100.0 fLCleveland ClinicMonocytes (Bld) [#/Vol]0.52 10*3/uLNINF [facility] HospitalMonocytes/100 WBC (Bld)9.8 %[facility] HospitalNeutrophils (Bld) [#/Vol]3.12 10*3/uLWvumedicine Barnesville HospitalNeutrophils/100 WBC (Bld)59.1 %[facility] HospitalNucleated RBC (Bld) [#/Vol]NINFCleveland ClinicNucleated RBC/100 WBC (Bld) [Ratio]0.0 %/100 WBCWvumedicine Barnesville HospitalPlatelet mean volume (Bld) [Entitic vol]8.8 fLLow9.0 - 12.7 fLCleveland ClinicPlatelets (Bld) [#/Vol]165 10*3/[facility] HospitalRBC (Bld) [#/Vol]4.76 10*6/uL4.20 - 6.00 m/[facility] HospitalWBC (Bld) [#/Vol]5.28 10*3/[facility] CenterComprehensive metabolic 2000 panelOrdered By: Rosemarie Douglas on 69-73-5009Evifdpf [Mass/Vol]4.7 g/dL3.9 - 4.9 g/dLWinston Salem ClinicALP [Catalytic activity/Vol]82 U/L38 - 113 U/LCleveland ClinicALT [Catalytic activity/Vol]14 U/L10 - 54 U/LCleveland ClinicAnion gap [Moles/Vol]10 mmol/L9 - 18 mmol/LCleveland ClinicAST [Catalytic activity/Vol]14 U/L14 - 40 U/LCleveland ClinicBilirubin [Mass/Vol]0.4 mg/dL0.2 - 1.3 mg/dL [facility] ClinicCalcium [Mass/Vol]9.9 mg/dL8.5 - 10.2 mg/dLWvumedicine Barnesville Hospital Chloride [Moles/Vol]103 mmol/L97 - 105 mmol/LCleveland ClinicCO2 [Moles/Vol]25 mmol/L22 - 30 mmol/LCleveland ClinicCreatinine [Mass/Vol]1.26 mg/dLHigh0.73 - 1.22 mg/dLWinston Salem ClinicGFR/1.73 sq M.predicted among non-blacks MDRD (S/P/Bld) [Vol rate/Area]67 mL/min/{1.73_m2}- PINFCleveland ClinicComment on above:Estimated Glomerular Filtration Rate (eGFR) is calculated using the 2020 CKD-EPI creatinine equation. This equation utilizes serum creatinine, sex, and age as parameters. The creatinine assay has traceable calibration to isotope dilution-mass spectrometry. Refer to KDIGO guidelines for clinical inte rpretation. In patients with unstable renal function, e.g. those with acute kidney injury, the eGFRmay not accurately reflect actual GFR.Glucose [Mass/Vol] 105 mg/cBDuqi43 - 99 mg/dLWvumedicine Barnesville HospitalComment on above:The [place] Diabetes Association (ADA) provides guidance for cutoff [...] Standards of Medical Care in Diabetes 2016, [place] [employer]. Diabetes Care. 2016.39(Suppl 1). Interpretation and review of laboratory resultsAbnormalCleveland ClinicPotassium [Moles/Vol]4.3 mmol/L3.7 - 5.1 mmol/LCpromedica toledo hospital ClinicProtein [Mass/Vol]7.1 g/dL 6.3 - 8.0 g/dLParkwood Hospitalodium [Moles/Vol]138 mmol/L136 - 144 mmol/L [facility] HospitalUrea nitrogen [Mass/Vol]19 mg/dL9 - 24 mg/dLTrumbull Memorial Hospital BLDon 36-47-5611IBM Qn4.720 m[IU]/LHighSelect Medical [facility] Qnon 89-50-4525Qtdiaeqsovzywn and review of laboratory resultsAbnormalCuniversity hospitals tripoint medical centerand [facility] GlenbeighCT Abdomen and Pelvis W contrast Marcie 12-08-2023 IMPRESSION: 1. No evidence of [...] any questions regarding this interpretation, please call [phone]. If you are unable to reach us at the number above, please feel free to contact [facility] at [phone].DIVISION OF RADIOLOGY* * *Final Report* * * DATE OF EXAM: Dec 08 2023 9:16AM [facility] 0530 - CT ABD/PEL W IVCON / [...] chest CT performed will be reported separately. Food Manager (topogram) images: No additional findings. DIVISION OF RADIOLOGYProvider, [facility] [place] - 12/08/2023 * * *Final Report* * * DATE OF EXAM: Dec 08 2023 9:16AM [facility] 0530 - CT ABD/PEL W IVCON / [...] chest CT performed will be reported separately. Food Manager (topogram) images: No additional findings. IMPRESSION IMPRESSION: [...] any questions regarding this interpretation, please call [phone]. If you are unable to reach us at the number above, please feel free to contact [facility] eRadiology at [phone]. [facility] SpringfieldCT Chest W contrast Marcie 41-64-2552QNKHDHPUED: 1. Improvement in the previously seen pulmonary [...] any questions regarding this interpretation, please call [phone]. If you are unable to reach us at the number above, please feel free to contact [facility] eRadiology at [phone].DIVISION OF RADIOLOGY* * *Final Report* * * DATE OF EXAM: Dec 08 2023 9:16AM [facility] 0539 - CT CHEST W IVCON / [...] was performed and will be reported separately. Food Manager (topogram) images: No additional findings. DIVISION OF RADIOLOGYProvider, [facility] [place] - 12/08/2023 * * *Final Report* * * DATE OF EXAM: Dec 08 2023 9:16AM [facility] 0539 - CT CHEST W IVCON / [...] was performed and will be reported separately. Food Manager (topogram) images: No additional findings. IMPRESSION IMPRESSION: [...] any questions regarding this interpretation, please call [phone]. If you are unable to reach us at the number above, please feel free to contact [facility] eRadiology at [phone]. [facility] HospitalCT Chest W contrast IVOrdered By: Ccf Provider on 12-08-2023 [facility] HospitalLaboratory - Chemistry and Chemistry - challengeOrdered By: Boo Nava on 97-02-1040Sgxzasjhvv [Mass/Vol]1.31 mg/dLHigh0.73 - 1.22 mg/dL [facility] HospitalGFR/1.73 sq M.predicted among non-blacks MDRD (S/P/Bld) [Vol rate/Area]63 mL/min/{1.73_m2}- PINFCleveland ClinicComment on above:Estimated Glomerular Filtration Rate (eGFR) is calculated using the 2020 CKD-EPI creatinine equation. This equation utilizes serum creatinine, sex, and age as parameters. The creatinine assay has traceable calibration to isotope dilution- mass spectrometry. Refer to KDIGO guidelines for clinical interpretation. In patients with unstable renal function, e.g. those with acute kidney injury, the eGFRmay not accurately reflect actual GFR.No Panel InformationOrdered By: Boo Nava on 70-64-3845Srexjbnownycls and review of laboratory resultsAbnormal [facility] SpringfieldNo Panel Informationon 71-61-5215Spillfzin Study observation (narrative)[facility] W Auto Differential panel (Bld)on 57-43-3698Isdljviuv (Bld) [#/Vol]0.04 10*3/uL<0.11 k/uLWvumedicine Barnesville Hospital Basophils/100 WBC (Bld)0.8 %[facility] HospitalDifferential cell count method Nom (Bld)AutoCleveland ClinicEosinophils (Bld) [#/Vol]0.21 10*3/uL<0.46 k/uL [facility] HospitalEosinophils/100 WBC (Bld)4.1 %[facility] HospitalErythrocyte distribution width (RBC) [Ratio]12.4 %11.5 - 15.0 %[facility] HospitalHematocrit (Bld) [Volume fraction]42.3 %39.0 - 51.0 %[facility] HospitalHemoglobin (Bld) [Mass/Vol]14.7 g/dL13.0 - 17.0 g/dLWvumedicine Barnesville HospitalImmature granulocytes (Bld) [#/Vol]<0.10 k/uLWvumedicine Barnesville HospitalImmature granulocytes/100 WBC (Bld)0.2 % [facility] HospitalLymphocytes (Bld) [#/Vol]0.97 10*3/uLLow1.00 - 4.00 k/uL [facility] HospitalLymphocytes/100 WBC (Bld)18.9 %[facility] Medical CenterH (RBC) [Entitic mass]28.7 pg26.0 - 34.0 pgCAshtabula General HospitalHC (RBC) [Mass/Vol]34.8 g/dL30.5 - 36.0 g/dLTrumbull Regional Medical CenterV (RBC) [Entitic vol]82.6 fL80.0 - 100.0 fLCleveland ClinicMonocytes (Bld) [#/Vol]0.53 10*3/uL<0.87 k/uLWvumedicine Barnesville Hospital Monocytes/100 WBC (Bld)10.3 %[facility] HospitalNeutrophils (Bld) [#/Vol]3.37 10*3/uL1.45 - 7.50 k/uLWvumedicine Barnesville HospitalNeutrophils/100 WBC (Bld)65.7 %[facility] HospitalNucleated RBC (Bld) [#/Vol]<0.01 k/uLWvumedicine Barnesville HospitalNucleated RBC/100 WBC (Bld) [Ratio]0.0 /100 WBCWvumedicine Barnesville HospitalPlatelet mean volume (Bld) [Entitic vol]8.3 fLLow9.0 - 12.7 fLCleveland ClinicPlatelets (Bld) [#/Vol]185 10*3/uL150 - 400 k/uLWvumedicine Barnesville HospitalRBC (Bld) [#/Vol]5.12 10*6/uL4.20 - 6.00 m/uLWvumedicine Barnesville HospitalWBC (Bld) [#/Vol]5.13 10*3/uL3.70 - 11.00 k/uLWvumedicine Barnesville Hospital Comprehensive metabolic 2000 panelon 44-83-2926Tdobmkp [Mass/Vol]4.7 g/dL3.9 - 4.9 g/dLWinston Salem ClinicALP [Catalytic activity/Vol]86 U/L38 - 113 U/LCleveland ClinicALT [Catalytic activity/Vol]15 U/L10 - 54 U/LCleveland ClinicAnion gap [Moles/Vol]10 mmol/L9 - 18 mmol/LCleveland ClinicAST [Catalytic activity/Vol]16 U/L14 - 40 U/LCleveland ClinicBilirubin [Mass/Vol]0.4 mg/dL0.2 - 1.3 mg/dL [facility] HospitalCalcium [Mass/Vol]10.6 mg/dLHigh8.5 - 10.2 mg/dLWvumedicine Barnesville Hospital Chloride [Moles/Vol]104 mmol/L97 - 105 mmol/LCleveland ClinicCO2 [Moles/Vol]28 mmol/L22 - 30 mmol/LCleveland [facility] CenterCreatinine [Mass/Vol]1.39 mg/dLHigh0.73 - 1.22 mg/dLWvumedicine Barnesville HospitalEstimated Glomerular Filtration Rate59 mL/min/1.73mLow >=60 mL/min/1.73mCleveland [facility] CenterGlucose [Mass/Vol]94 mg/dL74 - 99 mg/dL [facility] HospitalPotassium [Moles/Vol]4.4 mmol/L3.7 - 5.1 mmol/LCleveland [facility] Protein [Mass/Vol]7.2 g/dL6.3 - 8.0 g/dLParkwood Hospitalodium [Moles/Vol]142 mmol/L136 - 144 mmol/LCleveland [facility] CenterUrea nitrogen [Mass/Vol]16 mg/dL9 - 24 mg/dLWvumedicine Barnesville HospitalTSH BLDon 77-53-7283DHT Qn3.160 m[IU]/L0.270 - 4.200 mIU/L [facility] HospitalPET+CT Guidance for localization of tumor of Skull base to mid-thigh-- W 18F-FDG Marcie 74-17-8729JHKYJXCLXC: 1. HEAD and NECK: No evidence of [...] any questions regarding this interpretation, please call [phone]. If you are unable to reach us at the number above, please feel free to contact [facility] at [phone].DIVISION OF RADIOLOGY* * *Final Report* * * DATE OF [...] low dose noncontrast CT scan. DIVISION OF RADIOLOGYProvider, [facility] [place] - 09/25/2023 * * *Final Report* * [...] any questions regarding this interpretation, please call [phone]. If you are unable to reach us at the number above, please feel free to contact [facility] eRadiology at [phone]. [facility] CenterT+CT Guidance for localization of tumor of Skull base to mid-thigh-- W 18F-FDG IVOrdered By: Ccf Provider on 83-45-4565Wcqqiknjd [facility] GLUCOSE, BLOOD (POC)on 46-70-5667Grscrzj [Mass/Vol]92 mg/dL74 - 99 mg/dL [facility] HospitalComment on above:Location:[facility], [address] [place] [address] Dr[place], [place], [address] The Accu-Chek Inform II glucose meter has [...] blood gas instrument) in the above situations. [facility] HospitalPET+CT Guidance for localization of tumor of Skull base to mid-thigh-- W 18F-FDG Marcie 99-15-7926Rwsldrvsh Study observation (narrative) [facility] HospitalBRONCHOSCOPYon 54-14-3228Ptzsubnlv ClinicCT CHEST WO IVCONon 09-25-8845Gupvwelct ClinicCT Chest WO contraston 06-96-5136PYVJWBCZTB: 1. Since 04/14/2023, multiple enlarging right lung [...] any questions regarding this interpretation, please call [phone]. If you are unable to reach us at the number above, please feel free to contact [facility] eRadiology at [phone].DIVISION OF RADIOLOGY* * *Final Report* * * DATE OF EXAM: Jul 18 2023 1:36PM [facility] 0541 - CT CHEST WO IVCON / [...] No abnormality in the imaged upper abdomen. Food Manager (topogram) images: No additional findings. DIVISION OF RADIOLOGYProvider, [facility] [place] - 07/18/2023 * * *Final Report* * * DATE OF EXAM: Jul 18 2023 1:36PM [facility] 0541 - CT CHEST WO IVCON / [...] No abnormality in the imaged upper abdomen. Food Manager (topogram) images: No additional findings. IMPRESSION IMPRESSION: [...] any questions regarding this interpretation, please call [phone]. If you are unable to reach us at the number above, please feel free to contact [facility] eRadiology at [phone]. [facility] HospitalRadiology Study observation (narrative)[facility] Chest WO contrastOrdered By: Ccf Provider on [id number] ClinicMR prostate wo/w conon [id number] prostate wo/w [facility] [address] [place] [address] MRI Report Signed Patient: Caitlin Elmore MR#: [id number] : 1965 Acct:[id number] Age/Sex: 58 / M ADM Date: 05/16/23 Loc: MR Room: Type: [facility] Attending Dr: Lee Ivy MD Copies [...] suggested. Impression dictated by: Ras Goddard Jr., Edgar05/17/2023 4:06 PM Dictation Location: [facility]- Transcribed By: OLIMPIA 05/17/23 1606 Dictated By: Ras Goddard Jr, DO 05/17/23 1022 Signed By: 05/17/23 1606[facility] CenterCB W Auto Differential panel (Bld)on 62-10-3284Zfdnoueix (Bld) [#/Vol]0.04 10*3/uLNINFWvumedicine Barnesville Hospital Basophils/100 WBC (Bld)0.8 %[facility] HospitalDifferential cell count method Nom (Bld)AutoCleveland ClinicEosinophils (Bld) [#/Vol]0.48 10*3/uLHighNINFWvumedicine Barnesville HospitalEosinophils/100 WBC (Bld)10.0 %[facility] HospitalErythrocyte distribution width (RBC) [Ratio]11.9 %11.5 - 15.0 %[facility] HospitalHematocrit (Bld) [Volume fraction]36.3 %Low39.0 - 51.0 %[facility] HospitalHemoglobin (Bld) [Mass/Vol]12.5 g/dLLow13.0 - 17.0 g/dLWvumedicine Barnesville HospitalImmature granulocytes (Bld) [#/Vol]NINF [facility] HospitalImmature granulocytes/100 WBC (Bld)0.2 %[facility] Interpretation and review of laboratory resultsAbnormalCOhioHealth O'Bleness Hospital Lymphocytes (Bld) [#/Vol]0.79 10*3/uLLowWvumedicine Barnesville HospitalLymphocytes/100 WBC (Bld)16.5 %[facility] CenterH (RBC) [Entitic mass]29.4 pg26.0 - 34.0 pg [facility] CenterHC (RBC) [Mass/Vol]34.4 g/dL30.5 - 36.0 g/dLWvumedicine Barnesville Hospital MCV (RBC) [Entitic vol]85.4 fL80.0 - 100.0 fLCleveland ClinicMonocytes (Bld) [#/Vol]0.44 10*3/uLNINFWvumedicine Barnesville HospitalMonocytes/100 WBC (Bld)9.2 %[facility] ClinicNeutrophils (Bld) [#/Vol]3.03 10*3/uLWvumedicine Barnesville HospitalNeutrophils/100 WBC (Bld)63.3 %[facility] HospitalNucleated RBC (Bld) [#/Vol]NINFClevelMercy Health Perrysburg Hospital Nucleated RBC/100 WBC (Bld) [Ratio]0.0 %/100 WBCWinston Salem ClinicPlatelet mean volume (Bld) [Entitic vol]8.8 fLLow9.0 - 12.7 fLClevelcritical access hospital ClinicPlatelets (Bld) [#/Vol]169 10*3/uLWinston Salem ClinicRBC (Bld) [#/Vol]4.25 10*6/uL4.20 - 6.00 m/uL [facility] HospitalWBC (Bld) [#/Vol]4.79 10*3/uLKettering Health Springfield Comprehensive metabolic 2000 panelOrdered By: Boo Nava on 59-52-0008Hahowtc [Mass/Vol]4.3 g/dL3.9 - 4.9 g/dLWinston Salem ClinicALP [Catalytic activity/Vol]86 U/L38 - 113 U/LCleveland ClinicALT [Catalytic activity/Vol]16 U/L10 - 54 U/L [place] ClinicAnion gap [Moles/Vol]7 mmol/LLow9 - 18 mmol/LCleveland ClinicAST [Catalytic activity/Vol]15 U/L14 - 40 U/LCleveland ClinicBilirubin [Mass/Vol] 0.3 mg/dL0.2 - 1.3 mg/dLWinston Salem ClinicCalcium [Mass/Vol]9.8 mg/dL8.5 - 10.2 mg/dLWinston Salem ClinicChloride [Moles/Vol]105 mmol/L97 - 105 mmol/LCleveland ClinicCO2 [Moles/Vol]27 mmol/L22 - 30 mmol/LCleveland ClinicCreatinine [Mass/Vol]1.25 mg/dLHigh0.73 - 1.22 mg/dLWinston Salem ClinicGFR/1.73 sq M.predicted among non-blacks MDRD (S/P/Bld) [Vol rate/Area]67 mL/min/{1.73_m2}- PINF [facility] on above:Estimated Glomerular Filtration Rate (eGFR) is calculated using the 2020 CKD-EPI creatinine equation. This equation utilizes serum creatinine, sex, and age as parameters. The creatinine assay has traceable calibration to isotope dilution-mass spectrometry. Refer to KDIGO guidelines for clinical interpretation. In patients with unstable renal function, e.g. those with acute kidney injury, the eGFRmay not accurately reflect actual GFR.Glucose [Mass/Vol]102 mg/cZXsks62 - 99 mg/dLUniversity Hospitals Elyria Medical Center on above:The [place] Diabetes Association (ADA) provides guidance for cutoff [...] Standards of Medical Care in Diabetes 2016, [place] [employer]. Diabetes Care. 2016.39(Suppl 1). Interpretation and review of laboratory resultsAbnormalCleveland ClinicPotassium [Moles/Vol]4.3 mmol/L3.7 - 5.1 mmol/LCleveland ClinicProtein [Mass/Vol]6.6 g/dL 6.3 - 8.0 g/dLWinston Salem ClinicSodium [Moles/Vol]139 mmol/L136 - 144 mmol/L [facility] HospitalUrea nitrogen [Mass/Vol]17 mg/dL9 - 24 mg/dLTrihealth ClinicGLUCOSE, BLOOD (POC)on 98-71-6444Pgmbxsa [Mass/Vol]94 mg/dL74 - 99 mg/dLUniversity Hospitals Ely[facility] Center on above:Location:[facility], [address] [place] [address] Dr. [place], [place], [facility] The Accu-Chek Inform II glucose meter has [...] blood gas instrument) in the above situations. [facility] HospitalPET+CT Guidance for localization of tumor of Skull base to mid-thigh-- W 18F-FDG Marcie 88-10-3797SSWZYMKTWG: 1. NECK: * Interval resolution of intense [...] any questions regarding this interpretation, please call [phone]. If you are unable to reach us at the number above, please feel free to contact [facility] eRadiology at [phone].DIVISION OF RADIOLOGY* * *Final Report* * * DATE OF [...] or destructive osseous lesion. Degenerative osseous changes. Food Manager (topogram) images: No additional findings. DIVISION OF RADIOLOGYProvider, [facility] [place] - 04/14/[facility]23 * * *Final Report* * [...] or destructive osseous lesion. Degenerative osseous changes. Food Manager (topogram) images: No additional findings. IMPRESSION IMPRESSION: [...] 14 2023 10:35A Dictated by: ELOY BRUNNER, This examination was interpreted and the report reviewed and electronically signed by: GREGORY HERNANDEZ MD on Apr 14 2023 12:00PM EST Thank you for allowing us to participate in the care of your patient. Should there be any questions regarding this interpretation, please call [phone]. If you are unable to reach us at the number above, please feel free to contact [facility] eRadiology at [phone]. [facility] HospitalRadiology Study observation (narrative)[facility] ClinicPET+CT Guidance for localization of tumor of Skull base to mid-thigh-- W 18F-FDG IV Ordered By: Ccf Provider on 60-78-5976Iwxbmzklq ClinicBasic metabolic panel (Bld)on 76-81-7657Mkhqt gap (Bld) [Moles/Vol]13 mmol/L0 - 15 mmol/LCleveland ClinicCalcium.ionized (Bld) [Moles/Vol]1.28 mmol/L1.12 - 1.32 mmol/LCleveland ClinicChloride [Moles/Vol]97 mmol/LLow98 - 109 mmol/LCleveland ClinicCO2 [Moles/Vol]28 mmol/L24 - 29 mmol/LCleveland ClinicCreatinine [Mass/Vol]1.30 mg/dL0.60 - 1.30 mg/dLWvumedicine Barnesville HospitalGFR/1.73 sq M.predicted among non-blacks MDRD (S/P/Bld) [Vol rate/Area]64 mL/min/1.73m>=60 mL/min/1.73mCleveland Clinic Glucose [Mass/Vol]98 mg/dL70 - 105 mg/dLWvumedicine Barnesville HospitalPotassium [Moles/Vol]3.9 mmol/L3.5 - 4.9 mmol/LCleveland ClinicSodium [Moles/Vol]138 mmol/L138 - 146 mmol/LCleveland ClinicUrea nitrogen [Mass/Vol]22 mg/dL8 - 26 mg/dLRegency Hospital [facility] W Auto Differential panel (Bld)on 93-70-3348Kagncfrfv (Bld) [#/Vol] 0.05 10*3/uL<0.11 k/uLWvumedicine Barnesville HospitalBasophils/100 WBC (Bld)0.7 %[facility] HospitalDifferential cell count method Nom (Bld)AutoCleveland ClinicEosinophils (Bld) [#/Vol]0.73 10*3/uLHigh<0.46 k/uLWvumedicine Barnesville HospitalEosinophils/100 WBC (Bld) 10.2 %[facility] HospitalErythrocyte distribution width (RBC) [Ratio]12.2 %11.5 - 15.0 %[facility] HospitalHematocrit (Bld) [Volume fraction]41.6 %39.0 - 51.0 % [facility] HospitalHemoglobin (Bld) [Mass/Vol]13.9 g/dL13.0 - 17.0 g/dLWvumedicine Barnesville HospitalImmature granulocytes (Bld) [#/Vol]<0.10 k/uLWvumedicine Barnesville HospitalImmature granulocytes/100 WBC (Bld)0.3 %[facility] HospitalLymphocytes (Bld) [#/Vol]1.47 10*3/uL1.00 - 4.00 k/uLWvumedicine Barnesville HospitalLymphocytes/100 WBC (Bld)20.6 %[facility] Medical CenterH (RBC) [Entitic mass]28.1 pg26.0 - 34.0 pgClevelFederal Medical Center, RochesterHC (RBC) [Mass/Vol]33.4 g/dL30.5 - 36.0 g/dLTrumbull Regional Medical CenterV (RBC) [Entitic vol]84.0 fL80.0 - 100.0 fLClevelcritical access hospital ClinicMonocytes (Bld) [#/Vol]0.57 10*3/uL<0.87 k/uL [place] ClinicMonocytes/100 WBC (Bld)8.0 %[facility] HospitalNeutrophils (Bld) [#/Vol]4.29 10*3/uL1.45 - 7.50 k/uLWvumedicine Barnesville HospitalNeutrophils/100 WBC (Bld)60.2 %[facility] HospitalNucleated RBC (Bld) [#/Vol]<0.01 k/uLWvumedicine Barnesville HospitalNucleated RBC/100 WBC (Bld) [Ratio]0.0 /100 WBCWvumedicine Barnesville HospitalPlatelet mean volume (Bld) [Entitic vol]8.7 fLLow9.0 - 12.7 fLClevelcritical access hospital ClinicPlatelets (Bld) [#/Vol]192 10*3/uL150 - 400 k/uLWvumedicine Barnesville HospitalRBC (Bld) [#/Vol]4.95 10*6/uL4.20 - 6.00 m/uLWvumedicine Barnesville HospitalWBC (Bld) [#/Vol]7.13 10*3/uL3.70 - 11.00 k/uLWvumedicine Barnesville HospitalComprehensive metabolic 2000 panelon 98-60-7358Zflqvnh [Mass/Vol]4.7 g/dL 3.9 - 4.9 g/dLWinston Salem ClinicALP [Catalytic activity/Vol]94 U/L38 - 113 U/L [place] ClinicALT [Catalytic activity/Vol]20 U/L10 - 54 U/LCOhioHealth O'Bleness Hospital Anion gap [Moles/Vol]10 mmol/L9 - 18 mmol/LCleveland ClinicAST [Catalytic activity/Vol]15 U/L14 - 40 U/LCleveland [facility] Medical CenterBilirubin [Mass/Vol]0.3 mg/dL0.2 - 1.3 mg/dLWvumedicine Barnesville HospitalCalcium [Mass/Vol]10.1 mg/dL8.5 - 10.2 mg/dLWvumedicine Barnesville HospitalChloride [Moles/Vol]102 mmol/L97 - 105 mmol/LCleveland ClinicCO2 [Moles/Vol]26 mmol/L22 - 30 mmol/LCleveland [facility] Medical CenterCreatinine [Mass/Vol]1.15 mg/dL0.73 - 1.22 mg/dLWvumedicine Barnesville HospitalEstimated Glomerular Filtration Rate75 mL/min/1.73m>=60 mL/min/1.73mCOhioHealth O'Bleness HospitalGlucose [Mass/Vol]91 mg/dL74 - 99 mg/dLWvumedicine Barnesville HospitalPotassium [Moles/Vol]3.9 mmol/L3.7 - 5.1 mmol/LCleveland ClinicProtein [Mass/Vol]7.2 g/dL6.3 - 8.0 g/dLWinston Salem ClinicSodium [Moles/Vol] 138 mmol/L136 - 144 mmol/LCleveland [facility] Medical CenterUrea nitrogen [Mass/Vol]24 mg/dL9 - 24 mg/dLWvumedicine Barnesville HospitalLaboratory - Chemistry and Chemistry - challengeon [id number] [Mass/Vol]2.3 mg/dL1.7 - 2.3 mg/dLWvumedicine Barnesville HospitalPET+CT Guidance for localization of tumor of Skull base to mid-thigh-- W 18F-FDG Marcie 44-74-5336NXOPZDFEKG: 1. Neck: Intensely hypermetabolic right oropharyngeal region [...] any questions regarding this interpretation, please call [phone]. If you are unable to reach us at the number above, please feel free to contact [facility] at [phone].DIVISION OF RADIOLOGY* * *Final Report* * * DATE OF [...] SKELETON: There are no hypermetabolic osseous lesions. Food Manager (topogram) images:No additional findings. DIVISION OF RADIOLOGYProvipremier health mi[facility], [facility] [place] - 11/12/2022 * * *Final Report* * [...] SKELETON: There are no hypermetabolic osseous lesions. Food Manager (topogram) images:No additional findings. IMPRESSION IMPRESSION: 1. [...] any questions regarding this interpretation, please call [phone]. If you are unable to reach us at the number above, please feel free to contact [facility] eRadiology at [phone]. [facility] HospitalPET+CT Guidance for localization of tumor of Skull base to mid-thigh-- W 18F-FDG IVOrdered By: Ccf Provider on 64-61-2860Tzkttkfml Clinic GLUCOSE, BLOOD (POC)on 52-93-0432Thhjegb [Mass/Vol]74 mg/dL74 - 99 mg/dL [facility] HospitalComment on above:Location:[facility], [address] [place] [address] , [place], [place], [address] The Accu-Chek Inform II glucose meter has [...] blood gas instrument) in the above situations. [facility] HospitalPET+CT Guidance for localization of tumor of Skull base to mid-thigh-- W 18F-FDG Marcie 16-63-0384Sscwwidec Study observation (narrative) [facility] AUTO DIFFon 50-52-2186EPAX #0.0 103/ulNormal0.0-0.1The [facility]icking Memorial HospitalComment on above:Performed By: #### CBC #### [facility] [address] [address] [address] Nima OrtizBasophils/100 WBC (Bld)0.5 %Normal0.2-2.0The [facility] Comment on above:Performed By: #### CBC #### [facility] [address] [place] [address] Dr. Nima Grace #0.7 103/ulNormal0.0-0.7The [facility] HospitalComment on above: Performed By: #### CBC #### [facility] [address] [address] [address] Nima Trimbleosinophils/100 WBC (Bld)9.0 %Critically high0.9-7.0The [facility] HospitalComment on above:Performed By: #### CBC #### [facility] [address] [place] [address] Dr. Nima Trimblerythrocyte distribution width (RBC) [Ratio]12.6 %Exekhl45.0-15.0 The [facility] HospitalComment on above:Performed By: #### CBC #### [facility] [address] [place] [address] Dr. Nima OrtizHematocrit (Bld) [Volume fraction]38.7 %Critically low42.0-54.0 The [facility] HospitalComment on above:Performed By: #### CBC #### [facility] [address] [place] [address] Dr. Nima OrtizHemoglobin (Bld) [Mass/Vol]12.7 g/dLCritically low14.0-18.0The [facility] HospitalComment on above:Performed By: #### CBC #### [facility] [address] [place] [address] Dr. Nima Rich #0.02 10e3/ulNormal0.00-0.03The [facility] on above:Performed By: #### CBC #### [facility] [address] [place] [address] Dr. Nima Rich %0.2 %Normal0.0-0.5The [facility] HospitalComment on above: Performed By: #### CBC #### [facility] [address] [place] [address] Dr. Nima Bernstein #1.7 103/ulNormal1.2-3.8The [facility] HospitalComment on above:Performed By: #### CBC #### [facility] [address] [place] [address] Dr. Nima Smallshocytes/100 WBC (Bld)21.4 %Ukzbld54.5-60.0The [facility] on above:Performed By: #### CBC #### [facility] [address] [place] [address] Dr. Nima TilleyUAL DIFF REQNONormalThe [facility] HospitalCommymichigan medical center gladwin on above: Performed By: #### CBC #### [facility] [address] [place] [address] Dr. Nima Roque (RBC) [Entitic mass]28.5 kuOzvlpi35.9-34.0The [facility] on above:Performed By: #### CBC #### [facility] [address] [place] [address] Dr. Nima Roque (RBC) [Mass/Vol]32.8 g/wMPlbbyd97.9-35.2The [facility] on above:Performed By: #### CBC #### [facility] [address] [place] [address] Dr. Nima Roque (RBC) [Entitic vol]87.0 mHJyotwl05.0-94.0The [facility] HospitalComment on above:Performed By: #### CBC #### [facility] [address] [address] [address] Nima Foy #0.6 103/ulNormal0.3-0.8The [facility] HospitalComment on above:Performed By: #### CBC #### [facility] [address] [address] [address] Nima Duranocytes/100 WBC (Bld)7.2 %Normal1.7-12.0The [facility] Comment on above:Performed By: #### CBC #### [facility] [address] [address] [address] Nima Phelan #5.0 103/ulNormal1.4-6.5The [facility] HospitalComment on above:Performed By: #### CBC #### [facility] [address] [place] [address] Dr. Nima Vazquezutrophils/100 WBC (Bld)61.7 %Xsyvxs00.0-75.0The [facility] HospitalComment on above:Performed By: #### CBC #### [facility] [address] [place] [address] Dr. Nima Clarke mean volume (Bld) [Entitic vol]8.7 fLCritically low 9.5-13.5The [facility] HospitalComment on above:Performed By: #### CBC #### [facility] [address] [place] [address] Dr. Nima OrtizPLT189 103/ynMlucwc275-571Xyx [facility] HospitalComment on above: Performed By: #### CBC #### [facility] [address] [place] [address] Dr. Nima OrtizRBC4.45 106/ulCritically low4.70-6.10The [facility] HospitalComment on above:Performed By: #### CBC #### [facility] [address] [place] [address] Dr. Nima OrtizWBC8.1 103/ulNormal4.0-11.0The [facility] HospitalComment on above: Performed By: #### CBC #### [facility] [id number] Nima OrtizCT NECK ST W CONon [id number] NECK ST W CONEXAMINATION: CT NECK ST W CON HISTORY: Primary [...] Electronically authenticated by: JULIO RALPH Date: 2022-10-13 11:19NoMemorial HospitalCovid-19 PCR (CVDTBH)on 63-79-6997CNTZ-CoV-2 (COVID-19) RNA SARAH+probe Ql (Unsp spec)Not detectedNormalNOT DETECTEDThe [facility] Comment on above:Result Comment: This test is not yet approved or cleared by the [place] FDA. When there are no FDA-approved or cleared tests available, and other criteria are met, FDA can make tests available under an emergency access mechanism called an Emergency Use Authorization (EUA). The EUA for this test is supported by the [place] of Health and Human Service's (HHS's) declaration that circumstances exist to justify the emergency use of in vitro diagnostics for the detection and/or diagnosis of the virus that causes COVID- 19. This EUA will remain in effect (meaning [...] of clinical signs and symptoms consistent with SARS-CoV-2.Performed By: #### CVDTBH #### [facility] [address] [place] [address] Dr. Nima OrtizPROTSteven 33-45-7886TCL Coag (PPP) [Relative time]0.95 {INR} NormalHolmes County Joel Pomerene Memorial HospitalComment on above:Performed By: #### PT, PTT #### [facility] [address] [place] [address] Dr. Nima Ruth [facility] NorthComment on above:Result Comment: DESIRED INR: 2.0 - 3.0 CONDITIONS NOT LISTED BELOW 2.5 - 3.5 FOR PROSTHETIC HEART VALVE REPLACEMENT 2.5 - 3.5 RECURRENT THROMBOSIS Performed By: #### PT, PTT #### [facility] [address] [place] [address] Dr. Nima OrtizPT Coag (PPP) [Time]10.3 sNormal9.0-11.6The [facility] Comment on above:Performed By: #### PT, PTT #### [facility] [address] [place] [address] Dr. Nima Prince 78-30-1824bEHO Coag (Bld) [Time]27.5 hEmjrcz83.3-36.2[facility]ome[facility] Memorial HospitalComment on above:Performed By: #### PT, PTT #### [facility] [address] [place] [address] Dr. 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 Result Name Results FLOW INTERPRETATION Comment No monoclonal B-cells and no atypical T-cell population detected, see comment. 09/22/[address] Burton (). Verified with office nurse that report was [...] needle aspiration (FNA). 2. Pathology results are pending.NormalThe [facility] HospitalLEUKEMIA/LYMPHOMA PROFILEon 81-70-1538VPMJRQRD AND GATING STRATEGYComSalem Regional Medical Center on above:Result Comment: 8 color analysis with 7-AAD, CD45/SSC gating Performed at: -YPerformed By: #### FLOWL #### [facility] [address] [place] [id number] Nima Cope OF LEUKOCYTESDelaware County Hospital on above:Result Comment: No monoclonal B cell population is detected. kappa:lambda ratio 1.6 CD4:CD8 ratio 4.2 Enrichment procedure is performed. Performed at: -YPerformed By: #### FLOWL #### [facility] [address] [place] [address] [facility] on above:Result Comment: Each antibody in this assay was utilized to assess for potential abnormalities of studied cell populations or to characterize identified abnormalities. . This test was developed and its performance characteristics determined by [employer]. It has not been cleared or approved by the [place]. Food and Drug Administration. . The FDA has determined that such clearance or approval is not necessary. This test is used for clinical purposes. It should not be regarded as investigational or for research. Performed at: [facility] Hospitalformed By: #### FLOWL #### [facility] [address] [place] [address] Dr. Nima Schumacher COMMENTDelaware County Hospital on above: Result Comment: There is no immunophenotypic evidence of a B-cell clone or aberrant T-cell population. Certain large cell lymphoma, CD30 positive lymphoproliferative disorder/lymphoma and non-hematopoietic neoplasm cannot be excluded by flow cytometry analysis alone. In addition, the flow cytometry finding should be interpreted with caution due to decreased specimen viability. Correlation with morphologic finding is recommended for complete evaluation. Performed at: -YPerformed By: #### FLOWL [address] [address] [address] Nima Schumacher INTERPRETATIONComBethesda North HospitalCommymichigan medical center gladwin on above:Result Comment: No monoclonal B-cells and no atypical T-cell population detected, see comment Performed at: -YPerformed By: #### FLOWL #### [facility] [address] [place] [address] Dr. Nima OrtizPHENOTYPE CHARTDelaware County Hospital on above:Result Comment: CD3 Normal CD4 Normal CD5 Normal CD8 Normal CD10 Normal CD19 Normal CD20 Normal CD38 Normal CD45 Normal CD57 Normal KAPPA Normal LAMBDA Normal Performed at: -YPerformed By: #### FLOWL #### [facility] [address] [place] [address] Dr. Nima OrtizRESULTING PATH NAMEComBethesda North HospitalCommymichigan medical center gladwin on above:Result Comment: Irma Germain M.D. Ph.D Performed at: -YPerformed By: #### FLOWL #### [address] [address] [address] Nima OrtizSpecimeconnie type Nom (Spec)CommentMedina Hospital on above:Result Comment: Right Cervical (*includes neck) mass Performed at: -YPerformed By: #### FLOWL #### [facility] [address] [place] [address] Dr. Nima GeorgeLake County Memorial Hospital - WestComment on above: Result Comment: 42% This sample is less than 50% viable, which does not meet the standard for routine analysis. Its analysis is being reported because it is an irreplaceable sample. Because of the diminished certainty for the validity of these results, they must be interpreted in the context of morphological and all other test results. Performed at: -YPerformed By: #### FLOWL #### [facility] [address] [place] [address] HEAD_NECKon [id number] ST HEAD_NECKEXAM: US ST HEAD_NECK HISTORY: Mass of neck COMPARISON: None. TECHNIQUE: [...] Electronically authenticated by: FRANCINE STARR Date: 2022-09-12 07:15NormalHolmes County Joel Pomerene Memorial HospitalINSULINon 53-09-0019Gsqnher0.5 uIU/mLNormal2.6-24.9[facility] HospitalComment on above:Performed By: #### INSULIN #### [facility] [address] [place] [address] Dr. Nima Gonzalez AUTO DIFFon [id number] #0.1 103/ulNormal0.0-0.1[facility] Memorial HospitalComment on above:Performed By: #### CBC ####[facility] Mi[address]qc[address] [place], [place] [address]Dr.Yilan OrtizBasophils/100 WBC (Bld)0.6 %Normal0.2-2.0[facility]ome[facility] Memorial HospitalComment on above:Performed By: #### CBC ####[facility] [address] [place], [place] [address]Dr.Yilan ChangEO #0.8 103/ulCritically high0.0-0.7The [facility] Comment on above:Performed By: #### CBC ####[facility] Y[address] [place], [place] [address]Dr.Yilan ChangEosinophils/100 WBC (Bld)7.9 % Critically high0.9-7.0The [facility] HospitalComment on above:Performed By: #### CBC ####[facility] [address] [place], [place] [address]Dr. Yilan ChangErythrocyte distribution width (RBC) [Ratio]12.7 %Pgtgna35.0-15.0The [facility] HospitalComment on above:Performed By: #### CBC ####[facility] [address]fulv[address]ak[address] [place], [place] [address]Dr.Yilan ChangHematocrit (Bld) [Volume fraction]45.2 %Phkvih78.0-54.0The [facility] HospitalComment on above:Performed By: #### CBC ####[facility] Twobrvgzni[address] [place], [place] [address]Dr.Damarislan ChangHemoglobin (Bld) [Mass/Vol]15.5 g/dL Ygtret87.0-18.0The [facility] HospitalComment on above:Performed By: #### CBC ####[facility] R[address]kbywc[address] [place], [place] [address]Dr. Yilan ChangIG #0.02 10e3/ulNormal0.00-0.03The [facility] HospitalComment on above: Performed By: #### CBC ####[facility] Dis[address]zd[address] [place], [place] [address]Dr.Yilan ChangIG %0.2 %Normal0.0-0.5The [facility] HospitalComment on above:Performed By: #### CBC ####[facility] K[address] [place], [place] [address]Dr.Yilan ChangLYMPH #2.1 103/ulNormal1.2-3.8The [facility] HospitalComment on above:Performed By: #### CBC ####[facility] [address] [address]Dr. Nima OrtizLymphocytes/100 WBC (Bld)22.0 %Dhrlbj58.5-60.0The [facility] Comment on above:Performed By: #### CBC ####[facility] V[address]gs[address] [place], [place] [address]Dr.Nima OrtizMANUAL DIFF REQNONormalThe [facility] HospitalComment on above:Performed By: #### CBC ####[facility] Uufiuvuzcf[address] [place], [place] [address]Dr.Nima OrtizH (RBC) [Entitic mass]29.6 xbKjpirh72.9-34.0The [facility] HospitalComment on above: Performed By: #### CBC ####[facility] Z[address]rgrkniw[address] [place], [place] [address]Dr.Nima OrtizMCHC (RBC) [Mass/Vol]34.3 g/dLNormal 29.9-35.2The [facility] HospitalComment on above:Performed By: #### CBC ####[facility] [address]cvmhlvuyl[address] [place], [place] [address]Dr. Nima OrtizMCV (RBC) [Entitic vol]86.4 zMMozjxk55.0-94.0The [facility] Comment on above:Performed By: #### CBC ####[facility] Gqefzxrvrp[address] [place], [place] [address]Dr.Nima OrtizMONO #0.6 103/ulNormal0.3-0.8 The [facility] HospitalComment on above:Performed By: #### CBC ####[facility] [address] [place], [place] [address]Dr.Nima Ortiz Monocytes/100 WBC (Bld)6.7 %Normal1.7-12.0The [facility] HospitalComment on above: Performed By: #### CBC ####[facility] [address]tbutphkis[address] [place], [place] [address]Dr.Nima OrtizNEUT #5.9 103/ulNormal1.4-6.5The [facility] HospitalComment on above:Performed By: #### CBC ####[facility] [address] [address]Dr.Nima OrtizNeutrophils/100 WBC (Bld)62.6 %Foorxo77.0-75.0The [facility] Shawment on above:Performed By: #### CBC ####[facility] Qggglstaci[address] [place], [place] [address]Dr.Nima OrtizPlatelet mean volume (Bld) [Entitic vol]8.8 fLCritically low 9.5-13.5The [facility] HospitalComment on above:Performed By: #### CBC ####[facility] Yfvmsnvtpu[address] [place], [place] [address]Dr. Yilan BwwewROV076 103/xvJgfzof918-827Zgj [facility] HospitalComment on above: Performed By: #### CBC ####[facility] Grxjgrmoug[address] [place], [place] [address]Dr.Damarislan ChangRBC5.23 106/ulNormal4.70-6.10The [facility] HospitalComment on above:Performed By: #### CBC ####[facility] [address]vuwisalk[address] [place], [place] [address]Dr.Nima ChangWBC9.5 103/ul Normal4.0-11.0The [facility] HospitalComment on above:Performed By: #### CBC ####[facility] Ypetwohyti[address] [place], [place] [address]Dr. Nima ChangFREE THYROXINE INDEX T7on 70-57-5068UWZ1.74Szndyn5.30-4.50The [facility] HospitalComment on above:Performed By: #### URIC, CMP, LIPID, T7, TSH ####[facility] Th[address]xsmujz[address] [place], [place] [address]Dr. Damarislan JigoqL2X76.0 %Xkhcbs51.0-40.0The [facility] HospitalComment on above: Performed By: #### URIC, CMP, LIPID, T7, TSH ####[facility] Bdzqnbizug[address] [place], [place] [address]Dr. Damarislan ChangT4 [Mass/Vol] 8.10 ug/dLNormal4.50-12.10The [facility] HospitalComment on above:Performed By: #### URIC, CMP, LIPID, T7, TSH ####[facility] [address] [address]Dr. Nima OrtizGLYCOHEMOGLOBIN A1Con 56-76-5783FAO RECOMMENDATIONSEE [facility] NorthComment on above:Result Comment: ADA RECOMMENDED LIMIT 4.0 - 6.0 ADA THERAPEUTIC TARGET < 7.0 ACTION SUGGESTED > 7.0Performed By: #### A1C ####[facility] [address] [address]Dr.Nima OrtizGlucose [Mass/Vol]100 mg/dL NormalThe [facility] HospitalCommymichigan medical center gladwin on above:Performed By: #### A1C ####[facility] [address]xywf[address] [place], [place] [address]Dr.Nima OrtizHbA1c (Bld) [Mass fraction]5.1 %Normal4.5-6.2The [facility] HospitalComment on above: Performed By: #### A1C ####[facility] T[address]qi[address]ls[address] [place], [place] [address]Dr.Nima OrtizIRONon 44-65-4750Jepl [Mass/Vol]79.0 ug/fHEluypp51.0-175.0The [facility] HospitalCommymichigan medical center gladwin on above:Performed By: #### IRON #### [facility] [address] [address] [address] Nima OrtizLIPID PROFILEon [id number]-HDL RATIO NORMSEE BELOWThe Surgical Hospital at SouthwoodsComment on above:Result Comment: 3.3 - 4.4 LOW RISK 4.4 - 7.1 AVERAGE RISK 7.1 - 11.0 MODERATE RISK >11.0 HIGH RISKPerformed By: #### URIC, CMP, LIPID, T7, TSH ####[facility] [address] [address]Dr. Nima OrtizCholesterol [Mass/Vol]164 mg/dLNormal<=200The [facility] on above:Performed By: #### URIC, CMP, LIPID, T7, TSH ####[facility] [address] [id number]. Nima OrtizCholesterol in HDL [Mass/Vol]49 mg/pJGnsriz45-70Psh [facility] Comment on above:Performed By: #### URIC, CMP, LIPID, T7, TSH ####[facility] [address] [id number]. Nima Ortiz Cholesterol in LDL [Mass/Vol]106.0 mg/dLNoMemorial HospitalComment on above:Performed By: #### URIC, CMP, LIPID, T7, TSH ####[facility] [address] [id number]. Nima Angel Cholesterol.total/Cholesterol in HDL [Mass ratio]3.3 {ratio}NormalThe [facility] HospitalComment on above:Performed By: #### URIC, CMP, LIPID, T7, TSH ####[facility] [address] [address]Dr. Nima OrtizHDL NORMAL> or = 60 mg/dl - LOW CARDIOVASCULAR RISK <40 mg/dl - HIGH CARDIOVASCULAR RISKNoMemorial HospitalComment on above:Performed By: #### URIC, CMP, LIPID, T7, TSH ####[facility] [address] [address]Dr. Yilore ChangLDL CALC NORMALSEE BELOWThe [facility] Hospital at SouthwoodsComment on above:Result Comment: <100 mg/dl OPTIMAL 100 - 129 mg/dl NEAR OR ABOVE OPTIMAL 130 - 159 mg/dl BORDERLINE HIGH 160 - 189 mg/dl HIGH >190 mg/dl VERY HIGHPerformed By: #### URIC, CMP, LIPID, T7, TSH ####[facility] [address] [id number]. Nima Ortiz Triglyceride [Mass/Vol]45 mg/dLNormal<=150The [facility] HospitalComment on above: Performed By: #### URIC, CMP, LIPID, T7, TSH ####[facility] [address] [id number]. Nima ChangVLDL CALC9.0 mg/dLNoKettering Health Greene Memorialment on above:Performed By: #### URIC, CMP, LIPID, T7, TSH ####[facility] [address] [address]Dr. Yilan ChangPROF 14(COMP METB)on 99-66-0370Ivwhdoa [Mass/Vol]4.0 g/dLNormal3.4-5.0The [facility] Shawment on above:Performed By: #### URIC, CMP, LIPID, T7, TSH ####[facility] [address] [address]Dr. Yilan ChangAlbumin/Globulin [Mass ratio]1.1 {ratio}Normal The [facility] on above:Performed By: #### URIC, CMP, LIPID, T7, TSH ####[facility] [address] [place], [place] [address]Dr. Damarislan ChangALP [Catalytic activity/Vol]85 U/XMxfjiy69-247Mbt [facility] Comment on above:Performed By: #### URIC, CMP, LIPID, T7, TSH ####[facility] [address] [place], [place] [address]Dr. Yilan ChangALT [Catalytic activity/Vol]26 U/ZDmjuyo51-78Xzz [facility] on above: Performed By: #### URIC, CMP, LIPID, T7, TSH ####[facility] [address] [address]Dr. Damarislan ChangAnion gap [Moles/Vol]10.8 mmol/LNormalThe [facility] on above:Performed By: #### URIC, CMP, LIPID, T7, TSH ####[facility] [address]auifwpac[address] [place], [place] [address]Dr. Yilan ChangAST [Catalytic activity/Vol]10 U/L Critically ovn38-57Grv [facility] on above:Performed By: #### URIC, CMP, LIPID, T7, TSH ####[facility] [address]jfzzvxg[address] [place], [place] [address]Dr. Damarislan ChangBilirubin [Mass/Vol]0.5 mg/dLNormal 0.2-1.0The [facility] Shawment on above:Performed By: #### URIC, CMP, LIPID, T7, TSH ####[facility] [address] [address]Dr. Yilan ChangCalcium [Mass/Vol]9.3 mg/dLNormal8.5-10.1The [facility] HospitalComment on above:Performed By: #### URIC, CMP, LIPID, T7, TSH ####[facility] [address]jkx[address] [place], [place] [address]Dr. Yilan ChangChloride [Moles/Vol]101 mmol/TKqpqal76-014Cpt [facility] Comment on above:Performed By: #### URIC, CMP, LIPID, T7, TSH ####[facility] Ug[address]lwmlzw[address] [place], [place] [address]Dr. Yilan ChangCO2 [Moles/Vol]30.4 mmol/OUeqwov72.0-32.0The [facility] Shawment on above: Performed By: #### URIC, CMP, LIPID, T7, TSH ####[facility] [address]rnosbhi[address] [place], [place] [address]Dr. Yilan ChangCreatinine [Mass/Vol]1.15 mg/dLNormal0.70-1.30The [facility] on above: Performed By: #### URIC, CMP, LIPID, T7, TSH ####[facility] [address]ong[address]rbwn[address] [place], [place] [address]Dr. Yilan ChangEGFR-AF URUGUAYAN>60Normal>=60The [facility] Shawment on above:Performed By: #### URIC, CMP, LIPID, T7, TSH ####[facility] [address]frx[address] [place], [place] [address]Dr. Yilan ChangEGFR-NON AF URUGUAYAN>60Normal>=60The [facility] on above:Performed By: #### URIC, CMP, LIPID, T7, TSH ####[facility] [address]ymhblyo[address] [place], [place] [address]Dr. Yilan ChangGlobulin (S) [Mass/Vol]3.8 g/dLNormalThe Onward HospitalComment on above:Performed By: #### URIC, CMP, LIPID, T7, TSH ####[facility] [address] [address]Dr. Yilan ChangGlucose [Mass/Vol]109 mg/dLCritically qklu96-777Ifw [facility] HospitalCommymichigan medical center gladwin on above: Performed By: #### URIC, CMP, LIPID, T7, TSH ####[facility] [address] [address]Dr. Yilan ChangPotassium [Moles/Vol]4.2 mmol/LNormal3.5-5.1The [facility] HospitalComment on above: Performed By: #### URIC, CMP, LIPID, T7, TSH ####[facility] [address] [place], [place] [address]Dr. Yilan ChangProtein [Mass/Vol]7.8 g/dLNormal6.4-8.2The [facility] HospitalComment on above:Performed By: #### URIC, CMP, LIPID, T7, TSH ####[facility] [address] [place], [place] [address]Dr. Yilan ChangSodium [Moles/Vol]138 mmol/LNormal 136-145The [facility] on above:Performed By: #### URIC, CMP, LIPID, T7, TSH ####[facility] [address] [address]Dr. Yilan ChangUrea nitrogen [Mass/Vol]17.0 mg/dLNormal7.0-18.0The [facility] on above:Performed By: #### URIC, CMP, LIPID, T7, TSH ####[facility] [address] [address]Dr. Yilan ChangUrea nitrogen/Creatinine [Mass ratio]14.8 mg/mgNormalThe [facility] on above:Performed By: #### URIC, CMP, LIPID, T7, TSH ####[facility] Nooz[address] [place], [place] [address]Dr. Yilan ChangTSHon 65-25-8627SMP7.748 uIU/mLNormal0.358-3.740The [facility] Comment on above:Performed By: #### URIC, CMP, LIPID, T7, TSH ####[facility] [address] [place], [place] [address]Nd. Damarislore OrtizURIC ACID SERUMon 40-47-8571Rfaym [Mass/Vol]5.1 mg/dLNormal3.5-7.2The [facility] HospitalComment on above:Performed By: #### URIC, CMP, LIPID, T7, TSH ####[facility] [address] [place], [place] [address]Bt. Nima OrtizPSA, FREE AND TOTAL RATIOon 04-21-2022% Free PSA16.6 %NormalThe [facility] HospitalComment on above:Result Comment: The table below lists the probability [...] free PSA for any other population of men.Performed By: #### PSAFREE #### [facility] [address] [address] [address] Nima OrtizProstate specific Ag [Mass/Vol]3.8 ng/mLNormal0.0-4.0The [facility] HospitalComment on above:Result Comment: Arnaud ECLIA methodology. . According to the [employer], Serum PSA should decrease and [...] of the presence or absence of malignant disease.Performed By: #### PSAFREE #### [facility] [id number] Nima OrtizPSMurphy, Free0.63 ng/mLNormalN/AThe [facility] HospitalComment on above:Result Comment: Arnaud ECLIA methodology.Performed By: #### PSAFREE #### [facility] [address] [address] [address] Nima Ortiz Vital Signs Date TimeVital SignValuePerforming WzocljcsqTezsxsqd37-71-2764 13:02-0400Body zosaar684.3 cmEnoch Brennan MD Work Phone: [phone] HospitalVatcviutwu65-60-3441 13:02-0400Body mass index (BMI) [Ratio]27.89 kg/s5SjxntvEnoch Brennan MD Work Phone: [phone] HospitalMplwnoquqt18-83-6352 13:02-0400Body aaosgs34.72 kgEnoch Brennan MD Work Phone: [phone] [place], [place] [address] HospitalInwnpaqiwb00-71-7197 13:02-0400Diastolic blood yxplcpxm30 mm[Hg]Enoch Brennan MD Work Phone: [facility] HospitalQxogglmdui19-29-4396 13:02-0400Heart rate67 /min Enoch Brennan MD Work Phone: [facility] HospitalIdfttmjilz36-36-3434 13:02-0400Systolic blood irdayhhx889 mm[Hg]Enoch Brennan MD Work Phone: [phone] HospitalQpxipeajug97-65-8990 11:22-0400Body mass index (BMI) [Ratio]27.93 kg/z9AlqvxzaTayla Ellsworth MD Work Phone: [facility]08-28-2025 11:22-0400Body temperature 98.1 [degF]Tayla Ellsworth MD Work Phone: [facility]08-28-2025 11:22-0400Body evifpk57.6 kgTayla Ellsworth MD Work Phone: [facility]08-28-2025 11:22-0400Diastolic blood kbyimsty17 mm[Hg]Tayla Ellsworth MD Work Phone: [facility]08-28-2025 11:22-0400Heart rate62 /min Tayla Ellsworth MD Work Phone: [place] [address]-28-2025 11:22-0400Respiratory rate 20 /minTayla Ellsworth MD Work Phone: [facility]08-28-2025 11:22-9838OjQ3% (BldA) [Mass fraction]100 %Tayla Ellsworth MD Work Phone: [place] [address]-28-2025 11:22-0400Systolic blood vszvvgxi459 mm[Hg]Tayla Ellsworth MD Work Phone: [facility]08-21-2025 08:47-0400Body .1 Jac Medina MD Work Phone: [facility]08-21-2025 08:47-0400Body mass index (BMI) [Ratio]27.9 kg/m2IvspxLakia Medina MD Work Phone: [facility]08-21-2025 08:47-0400Body temperature 97.11 [degF]Lakia Medina MD Work Phone: [facility]08-21-2025 08:47-0400Body geqwsm56.5 kgLakia Medina MD Work Phone: [facility]08-21-2025 08:47-0400Diastolic blood bsovlhee63 mm[Hg]Lakia Medina MD Work Phone: [facility]08-21-2025 08:47-0400Heart rate68 /min Lakia Medina MD Work Phone: [place] [address]-21-2025 08:47-0400Respiratory rate 16 /minLakia Medina MD Work Phone: [place] [address]-21-2025 08:47-3114SaH4% (BldA) [Mass fraction]99 %Lakia Medina MD Work Phone: [facility]08-21-2025 08:47-0400Systolic blood xrljtjpy647 mm[Hg]Lakia Medina MD Work Phone: [facility]07-25-2025 13:01-0400Body uvzokz460.3 cmEnoch Brennan MD Work Phone: [facility] HospitalVblgonrwnw24-47-3786 13:01-0400Body mass index (BMI) [Ratio]27.89 kg/c2FmisrwEnoch Brennan MD Work Phone: [facility] HospitalSdigfjissf21-10-3189 13:01-0400Body eqsnep54.72 kgEnoch Brennan MD Work Phone: [facility] HospitalFqsyeozljp96-80-7771 13:01-0400Diastolic blood omhlzsis60 mm[Hg]Enoch Brennan MD Work Phone: [facility] HospitalUacdzzfvdu56-04-3775 13:01-0400Heart rate65 /min Enoch Brennan MD Work Phone: [facility] HospitalLtyohimkom57-01-8551 13:01-0400Systolic blood lxezpzdx148 mm[Hg]Enoch Brennan MD Work Phone: [facility] HospitalDognpoctuq79-98-7843 13:06-0400Body temperature 98.71 [degF]Chair Servando Work Phone: [facility]07-11-2025 13:06-0400Diastolic blood icxjyzsm28 mm[Hg]Chair Servando Work Phone: [facility]07-11-2025 13:06-0400Heart rate77 /min Chair [place] Work Phone: [facility]07-11-2025 13:06-0400Respiratory rate 16 /minChair [place] Work Phone: [facility]07-11-2025 13:06-0988VqR9% (BldA) [Mass fraction]98 %Chair Servando Work Phone: [place] [address]-11-2025 13:06-0400Systolic blood pimjxrrk037 mm[Hg]Chair Harvey Work Phone: [facility]05-30-2025 13:46-0400Body mass index (BMI) [Ratio]28 kg/a5FanzvLakia Medina MD Work Phone: [facility]05-30-2025 13:46-0400Body temperature 97.2 [degF]Lakia Medina MD Work Phone: [facility]05-30-2025 13:46-0400Body tykgiy98.8 kgLakia Medina MD Work Phone: [facility]05-30-2025 13:46-0400Diastolic blood uspcxcxr80 mm[Hg]Lakia Medina MD Work Phone: [facility]05-30-2025 13:46-0400Heart rate79 /min Lakia Medina MD Work Phone: [facility]05-30-2025 13:46-0400Respiratory rate 16 /minLakia Medina MD Work Phone: [facility]05-30-2025 13:46-6325CnL9% (BldA) [Mass fraction]97 %Lakia Medina MD Work Phone: [facility]05-30-2025 13:46-0400Systolic blood cfroiott055 mm[Hg]Lakia Medina MD Work Phone: [facility]05-15-2025 10:13-0400Body mass index (BMI) [Ratio]27.9 kg/e4QcbpazxTayla Ellsworth MD Work Phone: [facility]05-15-2025 10:13-0400Body temperature 97.7 [degF]Tayla Ellsworth MD Work Phone: [facility]05-15-2025 10:13-0400Body dbhbha57.5 kgTayla Ellsworth MD Work Phone: [facility]05-15-2025 10:13-0400Diastolic blood ffeobwqv50 mm[Hg]Tayla Ellsworth MD Work Phone: [facility]05-15-2025 10:13-0400Heart rate84 /min Tayla Ellsworth MD Work Phone: [facility]05-15-2025 10:13-0400Respiratory rate 20 /minTayla Ellsworth MD Work Phone: [facility]05-15-2025 10:13-5820OoI4% (BldA) [Mass fraction]100 %Tayla Ellsworth MD Work Phone: [facility]05-15-2025 10:13-0400Systolic blood tkvrygfn124 mm[Hg]Tayla Ellsworth MD Work Phone: [facility]04-25-2025 13:08-0400Body iwdxfx132.3 cmEnoch Brennan MD Work Phone: [facility] HospitalMzenteazqo14-40-0877 13:08-0400Body mass index (BMI) [Ratio]27.75 kg/a8UfkiydEnoch Brennan MD Work Phone: [facility] HospitalHrkbozftru22-91-0726 13:08-0400Body naiyaf44.27 kgEnoch Brennan MD Work Phone: [facility] HospitalMqifneclbz64-95-0057 13:08-0400Diastolic blood tqmrpnyf99 mm[Hg]Enoch Brennan MD Work Phone: [facility] HospitalTmzjgahpwn69-90-4238 13:08-0400Heart rate73 /min Enoch Brennan MD Work Phone: [place] [address]Irnixyguom80-57-6943 13:08-0400Systolic blood ukimgmfp634 mm[Hg]Enoch Brennan MD Work Phone: [place] [address]Qetzuxneax27-37-1917 13:16-0400Body temperature 97.3 [degF]Chair Harvey Work Phone: [facility]04-18-2025 13:16-0400Diastolic blood lijjxoio42 mm[Hg]Chair [place] Work Phone: [facility]04-18-2025 13:16-0400Heart rate75 /min Chair [place] Work Phone: [facility]04-18-2025 13:16-0400Respiratory rate 16 /minChair [place] Work Phone: [facility]04-18-2025 13:16-5074QiW4% (BldA) [Mass fraction]96 %Chair [place] Work Phone: [facility]04-18-2025 13:16-0400Systolic blood mm[Hg]Chair Servando Work Phone: [facility]04-04-2025 11:20-0400Body mass index (BMI) [Ratio]29.15 kg/m2Jujayson Jones MD Work Phone: [phone]04-04-2025 11:20-0400Body .5 kgJujayson Jones MD Work Phone: [phone]04-04-2025 11:20-0400Diastolic blood ouamsdwd36 mm[Hg]Chuck Jones MD Work Phone: [phone] HospitalComment on above:manual, checked with dinemap : 11:20-0400Heart rate89 /minJujayson Joens MD Work Phone: [phone]04-04-2025 11:20-0400Systolic blood lhdnbpse74 mm[Hg]Chuck Jones MD Work Phone: [phone] HospitalComment on above:manual, checked with dinemap : 13:26-0500Diastolic blood mekmcwwy81 mm[Hg]Lakia Medina MD Work Phone: [facility]03-07-2025 13:26-0500Systolic blood srwsuszc841 mm[Hg]Lakia Medina MD Work Phone: [facility]03-07-2025 13:25-0500Body mass index (BMI) [Ratio]30.77 kg/g9EptphLakia Medina MD Work Phone: [facility]03-07-2025 13:25-0500Body temperature 97 [degF]Lakia Medina MD Work Phone: [facility]03-07-2025 13:25-0500Body .7 kgLakia Medina MD Work Phone: [facility]03-07-2025 13:25-0500Heart rate66 /min Lakia Medina MD Work Phone: [facility]03-07-2025 13:25-0500Respiratory rate 16 /minLakia Medina MD Work Phone: [facility]03-07-2025 13:25-0200XeH8% (BldA) [Mass fraction]97 %Lakia Medina MD Work Phone: [facility]01-24-2025 13:04-0500Body nlyixc317.1 cmVicky Maguire ELECTRIC MOTOR REPAIR SUPERVISOR.DIESEL LOCOMOTIVE ENGINEER Work Phone: [facility] HospitalComment on above:verified with 2 caregivers.11-01-2024 13:04-0500Body mass index (BMI) [Ratio]29.27 kg/l6SunxusVicky Maguire ELECTRIC MOTOR REPAIR SUPERVISOR.DIESEL LOCOMOTIVE ENGINEER Work Phone: [facility]01-24-2025 13:04-0500Body temperature 97.81 [degF]Vicky Maguire ELECTRIC MOTOR REPAIR SUPERVISOR.DIESEL LOCOMOTIVE ENGINEER Work Phone: [facility]01-24-2025 13:04-0500Body qhpkfu07.9 kgVicky Maguire ELECTRIC MOTOR REPAIR SUPERVISOR.DIESEL LOCOMOTIVE ENGINEER Work Phone: [facility]01-24-2025 13:04-0500Diastolic blood ytnevpsr48 mm[Hg]Vicky Maria Guadalupe ELECTRIC MOTOR REPAIR SUPERVISOR.DIESEL LOCOMOTIVE ENGINEER Work Phone: [facility]01-24-2025 13:04-0500Heart rate59 /min Vicky Maria Guadalupe ELECTRIC MOTOR REPAIR SUPERVISOR.DIESEL LOCOMOTIVE ENGINEER Work Phone: [facility]01-24-2025 13:04-0500Respiratory rate 16 /minJaimee Maria Guadalupe ELECTRIC MOTOR REPAIR SUPERVISOR.DIESEL LOCOMOTIVE ENGINEER Work Phone: [facility]01-24-2025 13:04-8182IoJ0% (BldA) [Mass fraction]99 %Vicky Maria Guadalupe ELECTRIC MOTOR REPAIR SUPERVISOR.DIESEL LOCOMOTIVE ENGINEER Work Phone: [facility]01-24-2025 13:04-0500Systolic blood bqgmemwy292 mm[Hg]Vicky Maria Guadalupe ELECTRIC MOTOR REPAIR SUPERVISOR.DIESEL LOCOMOTIVE ENGINEER Work Phone: [facility]01-24-2025 09:30-0500Body .3 cmEnoch Brennan MD Work Phone: [facility] HospitalZthkrbjouu52-26-6380 09:30-0500Body mass index (BMI) [Ratio]29.01 kg/o0TejyqwEnoch Brennan MD Work Phone: [facility] HospitalJfxkfuvnil10-10-2694 09:30-0500Body krzhve01.35 kgEnoch Brennan MD Work Phone: [facility] HospitalUffewglzoe15-60-9142 09:30-0500Diastolic blood iuwdfava03 mm[Hg]Enoch Brennan MD Work Phone: [facility] HospitalBfkmmcbvuw67-16-0144 09:30-0500Heart rate64 /min Enoch Brennan MD Work Phone: [facility] HospitalAngfaclmbq40-94-3437 09:30-0500Systolic blood cinllrqh809 mm[Hg]Enoch Brennan MD Work Phone: [facility] HospitalMglucotdod70-52-8870 11:13-0500Body mass index (BMI) [Ratio]29.96 kg/z7HmdurcoTayla Ellsworth MD Work Phone: [facility]01-23-2025 11:13-0500Body temperature 97.9 [degF]Tayla Ellsworth MD Work Phone: [facility]01-23-2025 11:13-0500Body ryepmp77.7 kgTayla Ellsworth MD Work Phone: [facility]01-23-2025 11:13-0500Diastolic blood econurkl42 mm[Hg]Tayla Ellsworth MD Work Phone: [facility]01-23-2025 11:13-0500Heart rate73 /min Tayla Ellsworth MD Work Phone: [facility]01-23-2025 11:13-0500Respiratory rate 18 /minTayla Ellsworth MD Work Phone: [facility]01-23-2025 11:13-8874AuH4% (BldA) [Mass fraction]96 %Tayla Ellsworth MD Work Phone: [facility]01-23-2025 11:13-0500Systolic blood nbevpzxm899 mm[Hg]Tayla Ellsworth MD Work Phone: [facility]12-13-2024 12:58-0500Body oynoef336.9 cmEnoch Brennan MD Work Phone: [facility] HospitalFyeskhwtoj94-77-4101 12:58-0500Body mass index (BMI) [Ratio]28.21 kg/a2CelbvrEnoch Brennan MD Work Phone: [facility] HospitalJcvxonvuxe52-76-0290 12:58-0500Body rldbit47.35 kgEnoch Brennan MD Work Phone: [facility] HospitalHjhziucwmi53-56-0212 12:58-0500Diastolic blood mupcxkma29 mm[Hg]Enoch Brennan MD Work Phone: [facility] HospitalXfdtocbkdu09-77-1433 12:58-0500Systolic blood sofdkypf415 mm[Hg]Enoch Brennan MD Work Phone: [facility] HospitalQhcclyumgp10-74-3483 13:30-0500Body temperature 97.5 [degF]Chair Servando Work Phone: [facility]12-06-2024 13:30-0500Diastolic blood mm[Hg]Chair Servando Work Phone: [facility]12-06-2024 13:30-0500Heart rate58 /min Chair [place] Work Phone: [facility]12-06-2024 13:30-0500Respiratory rate 16 /minChair Servando Work Phone: [facility]12-06-2024 13:30-0500Systolic blood pqepqlfw122 mm[Hg]Chair Servando Work Phone: [facility]12-06-2024 12:56-0500Body iffkcw743.8 cmWhitney Hallman APRN.DIESEL LOCOMOTIVE ENGINEER Work Phone: [phone] [place], [place] [address]12-06-2024 12:56-0500Body mass index (BMI) [Ratio]30.05 kg/g8VefrzWhitney Hallman APRN.DIESEL LOCOMOTIVE ENGINEER Work Phone: [facility]12-06-2024 12:56-0500Body temperature 97.3 [degF]Whitney Hallman APRN.DIESEL LOCOMOTIVE ENGINEER Work Phone: [place] [address]-06-2024 12:56-0500Body xynkwq24 kg Whitney Hallman APRN.DIESEL LOCOMOTIVE ENGINEER Work Phone: [place] [address]-06-2024 12:56-0500Diastolic blood efjwlaln98 mm[Hg]Whitney Hallman APRN.DIESEL LOCOMOTIVE ENGINEER Work Phone: [place] [address]-06-2024 12:56-0500Heart rate66 /min Whitney Hallman APRN.DIESEL LOCOMOTIVE ENGINEER Work Phone: [place] [address]-06-2024 12:56-0500Respiratory rate 16 /minWhitney Hallman APRN.DIESEL LOCOMOTIVE ENGINEER Work Phone: [phone] [address]-06-2024 12:56-1397ClE4% (BldA) [Mass fraction]99 %Whitney Hallman ELECTRIC MOTOR REPAIR SUPERVISOR.DIESEL LOCOMOTIVE ENGINEER Work Phone: [facility]12-06-2024 12:56-0500Systolic blood nwfyjjdc364 mm[Hg]Whitney Hallman ELECTRIC MOTOR REPAIR SUPERVISOR.DIESEL LOCOMOTIVE ENGINEER Work Phone: [facility]11-12-2024 13:06-0500Body dcayia777.3 cmEnoch Brennan MD Work Phone: [place] [address]Kwfrcfwlps36-85-3693 13:06-0500Body mass index (BMI) [Ratio]29.15 kg/r2EdxoeeEnoch Brennan MD Work Phone: [place] [address]Ijqshzqzcu12-58-1754 13:06-0500Body zdcyxz17.8 kg Enoch Brennan MD Work Phone: [place] [address]Yzrasfertz99-23-4534 13:06-0500Diastolic blood xbhseptc01 mm[Hg]Enoch Brennan MD Work Phone: [place] [address]Yoqpphflip82-86-9028 13:06-0500Systolic blood jzstfajj965 mm[Hg]Enoch Brennan MD Work Phone: [facility] HospitalWfxrpyhqls25-95-0548 14:25-0400Body .8 cmJujayson Jones MD Work Phone: [facility]11-01-2024 14:25-0400Body mass index (BMI) [Ratio]30.11 kg/m2Chuck Jones MD Work Phone: [facility]11-01-2024 14:25-0400Body wzppex86.2 kgChuck Jnoes MD Work Phone: [phone]11-01-2024 14:25-0400Diastolic blood mm[Hg]Chuck Jones MD Work Phone: [facility]11-01-2024 14:25-0400Heart rate56 /min Chuck Jones MD Work Phone: [facility]11-01-2024 14:25-8856YuV3% (BldA) [Mass fraction]98 %Chuck Jones MD Work Phone: [facility]11-01-2024 14:25-0400Systolic blood hpjolpjs451 mm[Hg]Chuck Jones MD Work Phone: [facility]10-25-2024 12:45-0400Body jysrin585.3 cmVamari Medina MD Work Phone: [facility]10-25-2024 12:45-0400Body mass index (BMI) [Ratio]29.13 kg/y4ZgyngLakia Medina MD Work Phone: [facility]10-25-2024 12:45-0400Body temperature 97.7 [degF]Lakia Medina MD Work Phone: [facility]10-25-2024 12:45-0400Body aqsjck46.7 kgLakia Medina MD Work Phone: [facility]10-25-2024 12:45-0400Diastolic blood cnsejpis03 mm[Hg]Lakia Medina MD Work Phone: [facility]10-25-2024 12:45-0400Heart rate66 /min Lakia Medina MD Work Phone: [facility]10-25-2024 12:45-0400Respiratory rate 16 /minLakia Medina MD Work Phone: [facility]10-25-2024 12:45-3903PwZ0% (BldA) [Mass fraction]99 %Lakia Medina MD Work Phone: [facility]10-25-2024 12:45-0400Systolic blood mm[Hg]Lakia Medina MD Work Phone: [facility]10-04-2024 13:19-0400Body sojycx844.3 cmEnoch Brennan MD Work Phone: [facility] HospitalUyopqeozmc80-15-8790 13:19-0400Body mass index (BMI) [Ratio]29.57 kg/o5QraghhEnoch Brennan MD Work Phone: [facility] HospitalZqnhublrxe25-87-9001 13:19-0400Body isfeoe25.16 kgEnoch Brennan MD Work Phone: [facility] HospitalPgdulpoijw74-45-0401 13:19-0400Diastolic blood ulhurbje10 mm[Hg]Enoch Brennan MD Work Phone: [facility] HospitalRnjnbohndq80-44-9754 13:19-0400Systolic blood mm[Hg]Enoch Brennan MD Work Phone: [facility] HospitalSqdoygocwr11-68-7238 14:25-0400Body mass index (BMI) [Ratio]29 kg/l1BykhkraTayla Ellsworth MD Work Phone: [facility]09-27-2024 14:25-0400Body temperature 97.59 [degF]Tayla Ellsworth MD Work Phone: [facility]09-27-2024 14:25-0400Body bxukvz13.26 kgTayla Ellsworth MD Work Phone: [facility] HospitalComment on above:shoes pz06-73-7977 14:25-0400Diastolic blood mm[Hg]Tayla Ellsworth MD Work Phone: [facility]09-27-2024 14:25-0400Heart rate58 /min Tayla Ellsworth MD Work Phone: [facility]09-27-2024 14:25-0400Respiratory rate 16 /minTayla Ellsworth MD Work Phone: [facility]09-27-2024 14:25-0422DqA7% (BldA) [Mass fraction]100 %Tayla Ellsworth MD Work Phone: [facility] HospitalComment on above:[id number] 14:25-0400Systolic blood ndxjinpj867 mm[Hg]Tayla Ellsworth MD Work Phone: [facility]09-20-2024 15:03-0400Blood Pressure LocationKathy Lue [facility]09-20-2024 15:03-0400Diastolic blood ijfkowir03 mm[Hg]Norma Lue [facility]09-20-2024 15:03-0400Heart rate64 /minKathy Lue [facility]09-20-2024 15:03-0400Respiratory rate16 /minKathy Lue [facility]09-20-2024 15:03-0400Systolic blood mm[Hg]Norma Lue [facility]09-20-2024 09:11-0400Body mass index (BMI) [Ratio]28.97 kg/m0Amhha Main Work Phone: [phone] O'[facility]len[facility] HospitalOveptx50-82-9205 09:11-0400Body temperature 97.5 [degF]Nurse Main Work Phone: [phone] O'Bleness HospitalSjlnmd71-86-2423 09:11-0400Body caqyia61.17 kgNurse Main Work Phone: [facility] ClinicComment on above:Shoes xz04-53-2100 09:11-0400Diastolic blood shjdzdyo64 mm[Hg]Nurse Main Work Phone: [phone] O'Bleness HospitalChgqvv79-64-0951 09:11-0400Heart rate53 /min Nurse Main Work Phone: [phone] hospitals [facility] centerand Nufzer91-21-8237 09:11-0400Respiratory rate 18 /minNurse Main Work Phone: cOhio[facility]len[facility] HospitalWuyxql08-87-0628 09:11-6006DxY6% (BldA) [Mass fraction]99 %Nurse Main Work Phone: cprom[facility] ClinicComment on above:JK45-75-4283 09:11-0400Systolic blood xaxddiia838 mm[Hg]Nurse Main Work Phone: cOhio[facility]len[facility] HospitalWmoenm35-60-0460 13:36-0400Body fetbxl610.3 cmVamari Medina MD Work Phone: [facility]09-12-2024 13:36-0400Body mass index (BMI) [Ratio]29.47 kg/m9IkepkLakia Medina MD Work Phone: [facility]09-12-2024 13:36-0400Body temperature 97.7 [degF]Lakia Medina MD Work Phone: [facility]09-12-2024 13:36-0400Body oedgoz88.8 kgLakia Medina MD Work Phone: [facility]09-12-2024 13:36-0400Diastolic blood cojrqwpj30 mm[Hg]Lakia Medina MD Work Phone: [facility]09-12-2024 13:36-0400Heart rate64 /min Lakia Medina MD Work Phone: [facility]09-12-2024 13:36-0400Respiratory rate 16 /minLakia Medina MD Work Phone: [facility]09-12-2024 13:36-5108KzW4% (BldA) [Mass fraction]99 %Lakai Medina MD Work Phone: [place] [address]-12-2024 13:36-0400Systolic blood jdyczcut578 mm[Hg]Lakia Medina MD Work Phone: [facility]09-03-2024 14:11-0400Body mass index (BMI) [Ratio]29.01 kg/o4EboalyfTayla Ellsworth MD Work Phone: [facility]09-03-2024 14:11-0400Body temperature 98.01 [degF]Tayla Ellsworth MD Work Phone: [facility]09-03-2024 14:11-0400Body csgybn74.35 kgTayla Ellsworth MD Work Phone: [facility]09-03-2024 14:11-0400Diastolic blood htqiqthp70 mm[Hg]Tayla Ellsworth MD Work Phone: [facility]09-03-2024 14:11-0400Heart rate68 /min Tayla Ellsworth MD Work Phone: [facility]09-03-2024 14:11-0400Respiratory rate 18 /minTayla Ellsworth MD Work Phone: [facility]09-03-2024 14:11-7925IlA5% (BldA) [Mass fraction]100 %Tayla Ellsworth MD Work Phone: [facility]09-03-2024 14:11-0400Systolic blood pwiaqmvc752 mm[Hg]Tayla Ellsworth MD Work Phone: [facility]08-06-2024 14:28-0400Body mttqew476.3 cmPacc [facility]08-06-2024 14:28-0400Body mass index (BMI) [Ratio] 29.01 kg/m2Pacc [facility]08-06-2024 14:28-0400Body epnuqe92.35 kg Pacc [facility]08-02-2024 09:43-0400Body axaysl189.8 cmJujayson Jones MD Work Phone: [facility]08-02-2024 09:43-0400Body mass index (BMI) [Ratio]30.4 kg/m2Chuck Jones MD Work Phone: [facility]08-02-2024 09:43-0400Body dvvdza74.1 kgChuck Jones MD Work Phone: [phone]08-02-2024 09:43-0400Diastolic blood vzerhjiw91 mm[Hg]Chuck Jones MD Work Phone: [phone]08-02-2024 09:43-0400Heart rate56 /min Chuck Jones MD Work Phone: [phone]08-02-2024 09:43-0601MnB9% (BldA) [Mass fraction]98 %Chuck Jones MD Work Phone: [phone]08-02-2024 09:43-0400Systolic blood zfzxdzes332 mm[Hg]Chuck Jones MD Work Phone: [phone]07-31-2024 13:28-0400Body breqfu349 cm Elizabeth Borjas MD Work Phone: [facility]07-31-2024 13:28-0400Body mass index (BMI) [Ratio]29.51 kg/o6NugwqElizabeth Borjas MD Work Phone: [facility]07-31-2024 13:28-0400Body temperature 97.81 [degF]Elizabeth Borjas MD Work Phone: [facility]07-31-2024 13:28-0400Body sxwowh32.6 kgElizabeth Borjas MD Work Phone: [facility]07-31-2024 13:28-0400Diastolic blood mm[Hg]Elizabeth Borjas MD Work Phone: [facility]07-31-2024 13:28-0400Heart rate74 /min Elizabeth Borjas MD Work Phone: [facility]07-31-2024 13:28-0400Respiratory rate 18 /minElizabeth Borjas MD Work Phone: [facility]07-31-2024 13:28-5057BkN3% (BldA) [Mass fraction]100 %Elizabeth Borjas MD Work Phone: [facility]07-31-2024 13:28-0400Systolic blood hpiuxubd015 mm[Hg]Elizabeth Borjas MD Work Phone: [facility]06-18-2024 13:33-0400Body frcizx207 cm Tremaine Selma PA-C Work Phone: [facility]06-18-2024 13:33-0400Body mass index (BMI) [Ratio]29.32 kg/e6Xwhmw Selma PA-C Work Phone: [facility]06-18-2024 13:33-0400Body temperature 97.7 [degF]Tremaine Selma PA-C Work Phone: [facility]06-18-2024 13:33-0400Body dnusop02 kg Tremaine Selma PA-C Work Phone: [facility]06-18-2024 13:33-0400Diastolic blood rptiklad00 mm[Hg]Tremaine Selma PA-C Work Phone: [facility]06-18-2024 13:33-0400Heart rate87 /min Tremaine Selma PA-C Work Phone: [facility]06-18-2024 13:33-0400Respiratory rate 16 /minMindy Selma PA-C Work Phone: [facility]06-18-2024 13:33-2179KlL9% (BldA) [Mass fraction]97 %Tremaine Selma PA-C Work Phone: [facility]06-18-2024 13:33-0400Systolic blood wbwfuxkb088 mm[Hg]Tremaine Selma PA-C Work Phone: [facility]05-07-2024 09:33-0400Body mass index (BMI) [Ratio]28.64 kg/b3Xzuiq Servando Work Phone: [facility]05-07-2024 09:33-0400Body temperature 97.5 [degF]Chair Servando Work Phone: [facility]05-07-2024 09:33-0400Body ywutqb88.8 kgChair Servando Work Phone: [facility]05-07-2024 09:33-0400Diastolic blood mm[Hg]Chair Servando Work Phone: [facility]05-07-2024 09:33-0400Heart rate53 /min Chair Servando Work Phone: [facility]05-07-2024 09:33-0400Respiratory rate 18 /minChair Servando Work Phone: [facility]05-07-2024 09:33-3827RsW2% (BldA) [Mass fraction]100 %Chair Servando Work Phone: [facility]05-07-2024 09:33-0400Systolic blood umxivjas810 mm[Hg]Chair Servando Work Phone: [facility]03-26-2024 09:14-0400Body ocktsw301 cm Whitney Hallman APRN.DIESEL LOCOMOTIVE ENGINEER Work Phone: [facility]03-26-2024 09:14-0400Body temperature 97.2 [degF]Whitney Hallman APRN.DIESEL LOCOMOTIVE ENGINEER Work Phone: [facility]03-26-2024 09:14-0400Body bfuthc74.53 kgWhitney Hallman APRN.DIESEL LOCOMOTIVE ENGINEER Work Phone: [place] [address]-26-2024 09:14-0400Diastolic blood upcrimey57 mm[Hg]Whitney Hallman APRN.DIESEL LOCOMOTIVE ENGINEER Work Phone: [place] [address]-26-2024 09:14-0400Heart rate70 /min Whitney Hallman APRN.DIESEL LOCOMOTIVE ENGINEER Work Phone: [facility]03-26-2024 09:14-0400Respiratory rate 18 /minWhitney Hallman ELECTRIC MOTOR REPAIR SUPERVISOR.DIESEL LOCOMOTIVE ENGINEER Work Phone: [facility]03-26-2024 09:14-7327RoH8% (BldA) [Mass fraction]98 %Whitney Hallman ELECTRIC MOTOR REPAIR SUPERVISOR.DIESEL LOCOMOTIVE ENGINEER Work Phone: [facility]03-26-2024 09:14-0400Systolic blood qmnjjown151 mm[Hg]Whitney Hallman ELECTRIC MOTOR REPAIR SUPERVISOR.DIESEL LOCOMOTIVE ENGINEER Work Phone: [facility]03-05-2024 09:53-0500Body ichytj506 cm Elizabeth Borjas MD Work Phone: [facility]03-05-2024 09:53-0500Body temperature 98.1 [degF]Elizabeth Borjas MD Work Phone: [facility]03-05-2024 09:53-0500Body vjxwis27.8 kgElizabeth Borjas MD Work Phone: [facility]03-05-2024 09:53-0500Diastolic blood wkmczbcy86 mm[Hg]Elizabeth Borjas MD Work Phone: [facility]03-05-2024 09:53-0500Heart rate66 /min Elizabeth Borjas MD Work Phone: [facility]03-05-2024 09:53-0500Respiratory rate 16 /minElizabeth Borjas MD Work Phone: [facility]03-05-2024 09:53-6213ZwV1% (BldA) [Mass fraction]99 %Elizabeth Borjas MD Work Phone: [facility]03-05-2024 09:53-0500Systolic blood lwcmsgyh919 mm[Hg]Elizabeth Borjas MD Work Phone: [facility]02-09-2024 13:18-0500Body ovqrek576.9 cmEnoch Brennan MD [facility] 13:18-0500Body mass index (BMI) [Ratio]27.8 kg/x4JselrjEnoch Brennan MD Work Phone: [place] [address]Pkpuolywtl82-70-4190 13:18-0500Body mhuthx19.99 kgEnoch Brennan MD Work Phone: [facility]nnn[facility]ur21-14-5925 13:18-0500Diastolic blood abcxcect48 mm[Hg]Enoch Brennan MD Work Phone: [facility]kkpalmajw17-73-1889 13:18-0500Systolic blood eyyxhnkd065 mm[Hg]Enoch Brennan MD Work Phone: [facility]07-81-5464 09:10-0500Body yidvqx902 cm Elizabeth Borjas MD Work Phone: [facility]02-06-2024 09:10-0500Body temperature 98.29 [degF]Elizabeth Borjas MD Work Phone: [facility]02-06-2024 09:10-0500Body gcinln07.1 kgElizabeth Borjas MD Work Phone: [facility]02-06-2024 09:10-0500Diastolic blood mm[Hg]Elizabeth Borjas MD Work Phone: [facility]02-06-2024 09:10-0500Heart rate66 /min Elizabeth Borjas MD Work Phone: [facility]02-06-2024 09:10-0500Respiratory rate 16 /minElizabeth Borjas MD Work Phone: [facility]02-06-2024 09:10-1739YgP6% (BldA) [Mass fraction]97 %Elizabeth Borjas MD Work Phone: [facility]02-06-2024 09:10-0500Systolic blood yscypruv541 mm[Hg]Elizabeth Borjas MD Work Phone: [place] [address]-19-2023 09:40-0500Body cm Elizabeth Borjas MD Work Phone: [place] [address]-19-2023 09:40-0500Body temperature 97.81 [degF]Elizabeth Borjas MD Work Phone: [place] [address]-19-2023 09:40-0500Body mewczp06.1 kgElizabeth Borjas MD Work Phone: [place] [address]-19-2023 09:40-0500Diastolic blood mm[Hg]Elizabeth Borjas MD Work Phone: [place] [address]-19-2023 09:40-0500Heart rate60 /min Elizabeth Borjas MD Work Phone: [place] [address]-19-2023 09:40-0500Respiratory rate 16 /minElizabeth Borjas MD Work Phone: [place] [address]-19-2023 09:40-8785AmZ3% (BldA) [Mass fraction]98 %Elizabeth Borjas MD Work Phone: [facility]12-19-2023 09:40-0500Systolic blood bvanywto578 mm[Hg]Elizabeth Borjas MD Work Phone: [facility]11-29-2023 15:00-0500Body nemvfc746.6 cmElizabeth Borjas MD Work Phone: [place] [address]-29-2023 15:00-0500Body temperature 98.4 [degF]Elizabeth Borjas MD Work Phone: [place] [address]-29-2023 15:00-0500Body bplyfo53.72 kgElizabeth Borjas MD Work Phone: [place] [address]-29-2023 15:00-0500Diastolic blood jkshgfah27 mm[Hg]Elizabeth Borjas MD Work Phone: [place] [address]-29-2023 15:00-0500Heart rate63 /min Elizabeth Borjas MD Work Phone: [place] [address]-29-2023 15:00-0500Respiratory rate 18 /minElizabeth Borjas MD Work Phone: [place] [address]-29-2023 15:00-2548ZqD6% (BldA) [Mass fraction]97 %Elizabeth Borjas MD Work Phone: [place] [address]-29-2023 15:00-0500Systolic blood oyqbhjdu072 mm[Hg]Elizabeth Borjas MD Work Phone: [place] [address]-22-2023 11:15-0500Diastolic blood doqzppiz64 mm[Hg]Elke Alexander MD Work Phone: [facility]11-22-2023 11:15-0500Heart rate64 /min Elke Alexander MD Work Phone: [place] [address]-22-2023 11:15-0500Respiratory rate 18 /minSJulita Alexander MD Work Phone: [place] [address]-22-2023 11:15-7800IsB0% (BldA) [Mass fraction]100 %Elke Alexander MD Work Phone: [place] [address]-22-2023 11:15-0500Systolic blood ofufkkro779 mm[Hg]Elke Alexander MD Work Phone: [place] [address]-22-2023 10:49-0500Body temperature 96.8 [degF]Elke Aleaxnder MD Work Phone: [place] [address]-16-2023 09:49-0500Body temperature 97.7 [degF]Carissa Alvarez MD Work Phone: [place] [address]-16-2023 09:49-0500Body oupaoa53.73 kgCarissa Alvarez MD Work Phone: [facility]11-16-2023 09:49-0500Diastolic blood izljiyff13 mm[Hg]Carissa Alvarez MD Work Phone: [facility]11-16-2023 09:49-0500Heart rate54 /min Carissa Alvarez MD Work Phone: [facility]11-16-2023 09:49-0500Respiratory rate 16 /minSjessica Alvarez MD Work Phone: [facility]11-16-2023 09:49-7698CaM7% (BldA) [Mass fraction]99 %Carissa Alvarez MD Work Phone: [facility]11-16-2023 09:49-0500Systolic blood xddgiuyy595 mm[Hg]Carissa Alvarez MD Work Phone: [facility]10-17-2023 14:40-0400Body nawffq168.6 cmElizabeth Borjas MD Work Phone: [facility]10-17-2023 14:40-0400Body temperature 97.81 [degF]Elizabeth Borjas MD Work Phone: [facility]10-17-2023 14:40-0400Body jypxpv15.82 kgElizabeth Borjas MD Work Phone: [facility]10-17-2023 14:40-0400Diastolic blood mm[Hg]Elizabeth Borjas MD Work Phone: [facility]10-17-2023 14:40-0400Heart rate64 /min Elizabeth Borjas MD Work Phone: [facility]10-17-2023 14:40-0400Respiratory rate 16 /minElizabeth Borjas MD Work Phone: [facility]10-17-2023 14:40-8632XnW9% (BldA) [Mass fraction]99 %Elizabeth Borjas MD Work Phone: [facility]10-17-2023 14:40-0400Systolic blood cevtbvwd789 mm[Hg]Elizabeth Borjas MD Work Phone: [facility]09-29-2023 10:09-0400Blood Pressure LocationKathy Lue [facility]29-2023 10:09-0400Diastolic blood bbtqxgry67 mm[Hg]Norma Lue [facility]09-29-2023 10:09-0400Heart rate62 /minKathy Lue [facility]09-29-2023 10:09-0400Systolic blood zbcaknpn012 mm[Hg]Norma Lue [facility]08-31-2023 09:56-0400Blood Pressure LocationKathy Lue [facility]08-31-2023 09:56-0400Diastolic blood mm[Hg]Norma Lue [facility]08-31-2023 09:56-0400Heart rate54 /minKathy Lue [facility]08-31-2023 09:56-0400Systolic blood nojepdql609 mm[Hg]Norma Lue [facility]07-11-2023 15:10-0400Body fzargqhzbun58.01 [degF]SHELLIE Ivy MD Work Phone: 1(372) 807-[address]11-2023 15:10-0400Body eeapme76.01 Matthew Ivy MD Work Phone: [facility]07-11-2023 15:10-0400Diastolic blood kttbgvev84 mm[Hg]SHELLIE Ivy MD Work Phone: [facility]07-11-2023 15:10-0400Heart rate51 /min SHELLIE Ivy MD Work Phone: [facility]07-11-2023 15:10-0400Respiratory rate 16 /DanielSHELLIE Ivy MD Work Phone: [place] [address]-11-2023 15:10-0400Systolic blood ipltibkc197 mm[Hg]SHELLIE Ivy MD Work Phone: [facility]07-11-2023 14:09-0400Body ekadip335.6 cmElizabeth Borjas MD Work Phone: [facility]07-11-2023 14:09-0400Body temperature 98.01 [degF]Elizabeth Borjas MD Work Phone: [facility]07-11-2023 14:09-0400Body sjgsui90.37 kgElizabeth Borjas MD Work Phone: [facility]07-11-2023 14:09-0400Diastolic blood vjnpiyuw85 mm[Hg]Elizabeth Borjas MD Work Phone: [facility]07-11-2023 14:09-0400Heart rate51 /min Elizabeth Borjas MD Work Phone: [place] [address]-11-2023 14:09-0400Respiratory rate 16 /minElizabeth Borjas MD Work Phone: [place] [address]-11-2023 14:09-3413QcZ0% (BldA) [Mass fraction]99 %Elizabeth Borjas MD Work Phone: [place] [address]-11-2023 14:09-0400Systolic blood qytahxbu634 mm[Hg]Elizabeth Borjas MD Work Phone: [facility]05-25-2023 12:52-0400Body temperature 97.5 [degF]SHELLIE Ivy MD Work Phone: [facility]05-25-2023 12:52-0400Body .37 kgSHELLIE Ivy MD Work Phone: [facility]05-25-2023 12:52-0400Diastolic blood ljgixjvr66 mm[Hg]SHELLIE Ivy MD Work Phone: [facility]05-25-2023 12:52-0400Heart rate56 /min SHELLIE Ivy MD Work Phone: [facility]05-25-2023 12:52-0400Respiratory rate 18 /DanielSHELLIE Ivy MD Work Phone: [facility]05-25-2023 12:52-9992CdQ3% (BldA) [Mass fraction]99 %SHELLIE Ivy MD Work Phone: [facility]05-25-2023 12:52-0400Systolic blood mm[Hg]SHELLIE Ivy MD Work Phone: [facility]04-21-2023 08:37-0400Body temperature 97.3 [degF]SHELLIE Ivy MD Work Phone: [facility]04-21-2023 08:37-0400Body vifuwj46.01 kgSHELLIE Ivy MD Work Phone: [facility]04-21-2023 08:37-0400Diastolic blood okfupshq63 mm[Hg]SHELLIE Ivy MD Work Phone: [facility]04-21-2023 08:37-0400Heart rate55 /min SHELLIE Ivy MD Work Phone: [facility]04-21-2023 08:37-0400Respiratory rate 16 /DanielSHELLIE Ivy MD Work Phone: [facility]04-21-2023 08:37-2756PgO3% (BldA) [Mass fraction]99 %NA Biju KELLEY Work Phone: [place] [address]-21-2023 08:37-0400Systolic blood byxipgmp568 mm[Hg]NA Biju KELLEY Work Phone: [facility]04-14-2023 13:19-0400Body hpsubh995.6 cmMindy Selma PA-C Work Phone: [place] [address]-14-2023 13:19-0400Body temperature 97.59 [degF]Tremaine Selma PA-C Work Phone: [place] [address]-14-2023 13:19-0400Body tiegau72.92 kgMindy Selma PA-C Work Phone: [place] [address]-14-2023 13:19-0400Diastolic blood mnyvsmmi49 mm[Hg]Tremaine Selma PA-C Work Phone: [place] [address]-14-2023 13:19-0400Heart rate71 /min Tremaine Selma PA-C Work Phone: [place] [address]-14-2023 13:19-0400Respiratory rate 16 /minMindy Selma PA-C Work Phone: [place] [address]-14-2023 13:19-8943QoY2% (BldA) [Mass fraction]99 %Tremaine Selma PA-C Work Phone: [place] [address]-14-2023 13:19-0400Systolic blood tfsjtlyp352 mm[Hg]Tremaine Selma PA-C Work Phone: [place] [address]-07-2023 11:43-0400Body .6 cmMindy Selma PA-C Work Phone: [place] [address]-07-2023 11:43-0400Body temperature 97.9 [degF]Tremaine Mckinneyer PA-C Work Phone: [facility]04-07-2023 11:43-0400Body qlzgga92.01 kgMindalia Mckinneyer PA-C Work Phone: [place] [address]-07-2023 11:43-0400Diastolic blood fglawydv95 mm[Hg]Tremaine Mckinneyer PA-C Work Phone: [facility]04-07-2023 11:43-0400Heart rate70 /min Tremaine Mckinneyer PA-C Work Phone: [place] [address]-07-2023 11:43-0400Respiratory rate 16 /minMindalia Selma PA-C Work Phone: [place] [address]-07-2023 11:43-9169DuX9% (BldA) [Mass fraction]95 %Tremaine Mckinneyer PA-C Work Phone: [facility]04-07-2023 11:43-0400Systolic blood ykotyxrm806 mm[Hg]Tremaine Mckinneyer PA-C Work Phone: [facility]04-06-2023 13:23-0400Body temperature 98.4 [degF]SHELLIE Ivy MD Work Phone: [facility]04-06-2023 13:23-0400Body mswsuj36.38 kgSHELLIE Ivy MD Work Phone: [facility]04-06-2023 13:23-0400Diastolic blood kxzmivmb68 mm[Hg]SHELLIE Ivy MD Work Phone: [place] [address]-06-2023 13:23-0400Heart rate81 /min SHELLIE Ivy MD Work Phone: [place] [address]-06-2023 13:23-0400Respiratory rate 18 /DanielSHELLIE Ivy MD Work Phone: [place] [address]-06-2023 13:23-2901FoD5% (BldA) [Mass fraction]99 %SHELLIE Ivy MD Work Phone: [facility]04-06-2023 13:23-0400Systolic blood xktcatvc893 mm[Hg]SHELLIE Ivy MD Work Phone: [facility]04-05-2023 09:14-0400Body .6 cmElizabeth Borjas MD Work Phone: [facility]04-05-2023 09:14-0400Body temperature 97.5 [degF]Elizabeth Borjas MD Work Phone: [facility]04-05-2023 09:14-0400Body ezhvbe30.92 kgElizabeth Borjas MD Work Phone: [facility]04-05-2023 09:14-0400Diastolic blood mm[Hg]Elizabeth Borjas MD Work Phone: [facility]04-05-2023 09:14-0400Heart rate90 /min Elizabeth Borjas MD Work Phone: [facility]04-05-2023 09:14-0400Respiratory rate 16 /minElizabeth Borjas MD Work Phone: [facility]04-05-2023 09:14-4037AqG9% (BldA) [Mass fraction]93 %Elizabeth Borjas MD Work Phone: [facility]04-05-2023 09:14-0400Systolic blood mmotgvxj779 mm[Hg]Elziabeth Borjas MD Work Phone: [facility]03-27-2023 13:55-0400Body temperature 97.9 [degF]SHELLIE Ivy MD Work Phone: [facility]03-27-2023 13:55-0400Body eofzot50.01 kgSHELLIE Ivy MD Work Phone: [facility]03-27-2023 13:55-0400Diastolic blood dwjsgpyh11 mm[Hg]SHELLIE Ivy MD Work Phone: [place] [address]-27-2023 13:55-0400Heart rate80 /min SHELLIE Ivy MD Work Phone: [place] [address]-27-2023 13:55-0400Respiratory rate 16 /DanielSHELLIE Ivy MD Work Phone: [place] [address]-27-2023 13:55-3921SeK9% (BldA) [Mass fraction]99 %SHELLIE Ivy MD Work Phone: [place] [address]-27-2023 13:55-0400Systolic blood xqletfek024 mm[Hg]SHELLIE Ivy MD Work Phone: [place] [address]-24-2023 14:00-0400Body temperature 99.1 [degF]Chair [place] Work Phone: [place] [address]-24-2023 14:00-0400Diastolic blood wuhcnfcu61 mm[Hg]Chair [place] Work Phone: [place] [address]-24-2023 14:00-0400Heart rate80 /min Chair Servando Work Phone: [place] [address]-24-2023 14:00-0400Respiratory rate 16 /minChair [place] Work Phone: [place] [address]-24-2023 14:00-9038AyV2% (BldA) [Mass fraction]100 %Chair Servando Work Phone: [place] [address]-24-2023 14:00-0400Systolic blood fpgujoly356 mm[Hg]Chair [place] Work Phone: [place] [address]-20-2023 13:28-0400Body temperature 97.81 [degF]SHELLIE Ivy MD Work Phone: [place] [address]-20-2023 13:28-0400Body chybub52.83 kgSHELLIE Ivy MD Work Phone: [place] [address]-20-2023 13:28-0400Diastolic blood jcblzuwa84 mm[Hg]NA Biju KELLEY Work Phone: [place] [address]-20-2023 13:28-0400Heart rate78 /min SHELLIE Ivy MD Work Phone: [place] [address]-20-2023 13:28-0400Respiratory rate 18 /DanielSHELLIE Ivy MD Work Phone: [place] [address]-20-2023 13:28-6080AqD9% (BldA) [Mass fraction]97 %SHELLIE Ivy MD Work Phone: [place] [address]-20-2023 13:28-0400Systolic blood rzfbiujd670 mm[Hg]NA Biju KELLEY Work Phone: [place] [address]-20-2023 13:15-0400Body ubbunb45.[address] Work Phone: [facility]40 09:58-0400Body .6 cmElizabeth Borjas MD Work Phone: [place] [address]-15-2023 09:58-0400Body temperature 97.5 [degF]Elizabeth Borjas MD Work Phone: [place] [address]-15-2023 09:58-0400Body ivvjyv95.28 kgElizabeth Borjas MD Work Phone: [place] [address]-15-2023 09:58-0400Diastolic blood cfdqtalg20 mm[Hg]Elizabeth Borjas MD Work Phone: [place] [address]-15-2023 09:58-0400Heart rate69 /min Elizabeth Borjas MD Work Phone: [place] [address]-15-2023 09:58-0400Respiratory rate 18 /minElizabeth Borjas MD Work Phone: [facility]03-15-2023 09:58-7843CcP4% (BldA) [Mass fraction]97 %Elizabeth Borjas MD Work Phone: [facility]03-15-2023 09:58-0400Systolic blood nvjmdzol372 mm[Hg]Elizabeth Borjas MD Work Phone: [facility]03-09-2023 14:20-0500Body temperature 97.59 [degF]Chair Harvey Work Phone: [facility]03-09-2023 14:20-0500Diastolic blood rejvdoep18 mm[Hg]Chair Servando Work Phone: [facility]03-09-2023 14:20-0500Heart rate59 /min Chair Servando Work Phone: [facility]03-09-2023 14:20-8366DiF9% (BldA) [Mass fraction]97 %Chair Servando Work Phone: [facility]03-09-2023 14:20-0500Systolic blood grlxjunb778 mm[Hg]Chair Servando Work Phone: [facility]03-08-2023 08:38-0500Body bnauxb610.6 cmMindy Selma PA-C Work Phone: [facility]03-08-2023 08:38-0500Body temperature 97.3 [degF]Tremaine Selma PA-C Work Phone: [facility]03-08-2023 08:38-0500Body uxomoh75.36 kgMindy Selma PA-C Work Phone: [place] [address]-08-2023 08:38-0500Diastolic blood elybzdpz08 mm[Hg]Tremaine Selma PA-C Work Phone: [facility]03-08-2023 08:38-0500Heart rate93 /min Tremaine Selma PA-C Work Phone: [facility]03-08-2023 08:38-0500Respiratory rate 16 /minMindy Selma PA-C Work Phone: [facility]03-08-2023 08:38-1326CqM6% (BldA) [Mass fraction]99 %Tremaine Selma PA-C Work Phone: [facility]03-08-2023 08:38-0500Systolic blood mm[Hg]Tremaine Selma PA-C Work Phone: [facility]03-06-2023 14:32-0500Body temperature 97.7 [degF]SHELLIE Ivy MD Work Phone: [facility]03-06-2023 14:32-0500Body dcfuzr93.36 kgSHELLIE Ivy MD Work Phone: [facility]03-06-2023 14:32-0500Heart rate70 /min SHELLIE Ivy MD Work Phone: [facility]03-06-2023 14:32-0500Respiratory rate 18 /DanielSHELLIE Ivy MD Work Phone: [facility]03-01-2023 10:12-0500Body temperature 97.81 [degF]Tremaine Selma PA-C Work Phone: [facility]03-01-2023 10:12-0500Body upwhtt51.91 kgMindy Selma PA-C Work Phone: [facility]03-01-2023 10:12-0500Diastolic blood kmtcoxit45 mm[Hg]Tremaine Selma PA-C Work Phone: [place] [address]-01-2023 10:12-0500Heart rate71 /min Tremaine Selma PA-C Work Phone: [facility]03-01-2023 10:12-0500Respiratory rate 16 /minMindy Selma PA-C Work Phone: [place] [address]-01-2023 10:12-7148WqZ1% (BldA) [Mass fraction]99 %Tremaine Gomez PA-C Work Phone: [facility]03-01-2023 10:12-0500Systolic blood ilxsgwlt960 mm[Hg]Tremaine Gomez PA-C Work Phone: [facility]02-27-2023 13:39-0500Body temperature 96.21 [degF]SHELLIE Ivy MD Work Phone: [facility]02-27-2023 13:39-0500Body tjelzp11.36 kgSHELLIE Ivy MD Work Phone: [facility]02-27-2023 13:39-0500Diastolic blood hydtcvim84 mm[Hg]SHELLIE Ivy MD Work Phone: [facility]02-27-2023 13:39-0500Heart rate67 /min SHELLIE Ivy MD Work Phone: [facility]02-27-2023 13:39-0500Respiratory rate 18 /DanielSHELLIE Ivy MD Work Phone: [facility]02-27-2023 13:39-7968AyO5% (BldA) [Mass fraction]98 %SEHLLIE Ivy MD Work Phone: [facility]02-27-2023 13:39-0500Systolic blood sklygxcl173 mm[Hg]SHELLIE Ivy MD Work Phone: [facility]02-20-2023 11:52-0500Body temperature 96.69 [degF]SHELLIE Ivy MD Work Phone: [facility]02-20-2023 11:52-0500Body kedrri35.91 kgSHELLIE Ivy MD Work Phone: [facility]02-20-2023 11:52-0500Diastolic blood gyamfgqg12 mm[Hg]SHELLIE Ivy MD Work Phone: [place] [address]-20-2023 11:52-0500Heart rate66 /min SHELLIE Ivy MD Work Phone: [place] [address]-20-2023 11:52-0500Respiratory rate 18 /DanielSHELLIE Ivy MD Work Phone: [place] [address]-20-2023 11:52-9373KjR2% (BldA) [Mass fraction]98 %SHELLIE Ivy MD Work Phone: [place] [address]-20-2023 11:52-0500Systolic blood eihlfeif403 mm[Hg]SHELLIE Ivy MD Work Phone: [place] [address]-13-2023 09:58-0500Body gfiqii531.6 Steven Harvey Work Phone: [place] [address]-13-2023 09:14-0500Body oqgnxx869.3 cmMindy Selma PA-C Work Phone: [place] [address]-13-2023 09:14-0500Body temperature 97.39 [degF]Tremaine Selma PA-C Work Phone: [place] [address]-13-2023 09:14-0500Body cyxerl23.08 kgMindy Selma PA-C Work Phone: [place] [address]-13-2023 09:14-0500Diastolic blood xlagfswv95 mm[Hg]Tremaine Selma PA-C Work Phone: [place] [address]-13-2023 09:14-0500Heart rate67 /min Tremaine Selma PA-C Work Phone: [place] [address]-13-2023 09:14-0500Respiratory rate 16 /minMindy Selma PA-C Work Phone: 1(634) [phone]13-2023 09:14-3077WnW8% (BldA) [Mass fraction]99 %Tremaine Selma PA-C Work Phone: [place] [address]-13-2023 09:14-0500Systolic blood ewnuvsfo292 mm[Hg]Tremaine Gomez PA-C Work Phone: [facility]01-25-2023 10:54-0500Body aifexh152.3 cmElizabeth Borjas MD Work Phone: [facility]01-25-2023 10:54-0500Body temperature 97.59 [degF]Elizabeth Borjas MD Work Phone: [facility]01-25-2023 10:54-0500Body eaovan97.63 kgElizabeth Borjas MD Work Phone: [facility]01-25-2023 10:54-0500Diastolic blood wviarcqg78 mm[Hg]Elizabeth Borjas MD Work Phone: [facility]01-25-2023 10:54-0500Heart rate70 /min Elizabeth Borjas MD Work Phone: [facility]01-25-2023 10:54-0500Respiratory rate 16 /minElizabeth Borjas MD Work Phone: [facility]01-25-2023 10:54-8241HhN2% (BldA) [Mass fraction]97 %Elizabeth Borjas MD Work Phone: [facility]01-25-2023 10:54-0500Systolic blood unikocdx722 mm[Hg]Elizabeth Borjas MD Work Phone: [facility]01-19-2023 09:07-0500Body vclwne617.3 Shawn Ivy MD Work Phone: [facility]01-19-2023 09:07-0500Body temperature 97.7 [degF]SHELLIE Ivy MD Work Phone: [facility]01-19-2023 09:07-0500Body ooexgi42.08 kgSHELLIE Ivy MD Work Phone: [facility]01-19-2023 09:07-0500Diastolic blood ouqaelvp715 mm[Hg]SHELLIE Ivy MD Work Phone: [facility]01-19-2023 09:07-0500Heart rate60 /min SHELLIE Ivy MD Work Phone: [facility]01-19-2023 09:07-0349OfU8% (BldA) [Mass fraction]98 %SHELLIE Ivy MD Work Phone: [facility]01-19-2023 09:07-0500Systolic blood wrdwyhwl137 mm[Hg]SHELLIE Ivy MD Work Phone: [facility]09-02-2022 08:20-0400Blood Pressure LocationLanrobi Velez [facility]09-02-2022 08:20-0400Diastolic blood kssorjmo31 mm[Hg]Shelly Velez [facility]09-02-2022 08:20-0400Heart rate88 /minLanrobi Velez [facility]09-02-2022 08:20-0400Systolic blood krxbxzys544 mm[Hg]Shelly Velez [facility] Encounters Encounter DateEncounter TypeCare ProviderFacilityStart: 08-01-2025 End: 95-58-5341Ppyokn flowsheetEnoch Brennan MD Work Phone: noMS [facility] OtolaryngologyStart: 08-01-2025 End: 35-78-5445Dpiaxp flowsheetEnoch Brennan MD Work Phone: [facility] OtolaryngologyStart: 08-01-2025 End: 50-69-6881Pdtxth outpatient visit 15 minutesHilary Judah Timmis MD Work Phone: [facility] [place] OtolaryngologyComment on above: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 LueFacility: [place]Start: 06-27-2025 End: 12-31-2582Zqcrlzl encounter procedureNorma Craig [facility] Servando Start: 06-05-2025 End: 43-33-1576Ihxijwg encounter procedureTayla Ellsworth MD Work Phone: Radiation OncologyComment on above:Malignant neoplasm of unspecified part of unspecified bronchus or lung (HCC) (Primary Dx)Start: 06-05-2025 End: 81-49-2972uuuldtwravYEFSXST M HOYFacility:[facility] Hospitaltart: 05-29-2025 End: 83-39-5491Tsxsrcbvh encounterLakia Medina MD Work Phone: Cancer Appts MCComment on above:ResultsStart: 05-29-2025 End: 84-13-3212ctmegccxhcUocqk [address] Work Phone: Hematology/OncologyComment on above:Oropharnyx cancer (HCC) (Primary Dx)Start: 05-29-2025 End: 31-06-2538Qjyeup outpatient visit 25 minutesLakia Medina MD Work Phone: Hematology/OncologyComment on above: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); Personal history of irradiation; Subacute cough; Oral phase dysphagiaStart: 05-29-2025 End: 71-61-2511qtgllgqxajKBJWEZW M HOYFacility:[facility] Hospitaltart: 05-29-2025 End: 43-31-5619Ppirmynvqg hospital visit by physicianArrival Time Radiology Work Phone: Radiology Pet CTComment on above:Malignant neoplasm of unspecified part of unspecified bronchus or lung (HCC) [C34.90]Start: 05-28-2025 End: 32-17-9548Fqozat outpatient visit 25 minutesChuck Jones MD Work Phone: EndocrinologyComment on above:Acquired hypothyroidism (Primary Dx); Abnormal FSH level; Abnormal LH levelStart: 05-28-2025 End: 78-98-0966zpatibihlsRFVVNaveen JONESFacility:[facility] Hospitaltart: 05-06-2025 End: 34-52-7832Kitwwuaqo encounterVivecb Medina MD Work Phone: Hematology/OncologyComment on above:Forms/letterStart: 05-02-2025 End: 22-08-4974Abpibr Joel Brennan MD Work Phone: [facility]EE HOSPITALLIUtart: 05-02-2025 End: 57-63-5618Dmjwfznoah Brennan MD Work Phone: n[facility] E[facility] YUSEFtart: 05-02-2025 End: 97-99-7183Epdnml outpatient visit 15 minutesEnoch Brennan MD Work Phone: n[facility] E[facility] BACKUS HOSPITALomment on above: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)Start: 05-02-2025 End: 87-89-1739acldegdcgtIHQJKZJus Fajardo AvailableStart: 04-18-2025 End: 07-47-6315dwduapwoprSshgu Dean Harvey Work Phone: Hematology/OncologyComment on above:Oropharnyx cancer (HCC) (Primary Dx); 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); Adrenal insufficiency (HCC); Malaise and fatigueStart: 03-07-2025 End: 77-00-3947Gqatvx outpatient visit 40 minutesLakia Medina MD Work Phone: Hematology/OncologyComment on above: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); Encounter for immunotherapy; Adrenal insufficiency (HCC); Oropharnyx cancer (HCC)Start: 03-07-2025 End: 13-08-7403cyfpkgmqjsWokop Lisa Harvey Work Phone: Hematology/OncologyComment on above:Oropharnyx cancer (HCC) (Primary Dx)Start: 02-20-2025 End: 15-21-0490Pmbtzf OnlyTayla Ellsworth MD Work Phone: Radiation OncologyComment on above:Malignant neoplasm of unspecified part of unspecified bronchus or lung (HCC) (Primary Dx)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); 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] Start: 02-04-2025 End: 74-86-0453Qqdvpx-up encounterJuan Farhad Jones MD Work Phone: EndocrinologyStart: 02-03-2025 End: 79-86-1301mjtqubwcumYMMSXID M HOYFacility:[facility] Hospitaltart: 01-31-2025 End: 02-72-1144Wfdyoa flowsheetHidiamond Brennan MD Work Phone: NOJM ENT NORSTEPHIEKStart: 01-31-2025 End: 65-50-6234Cmsoqz flowsheetHidiamond Brennan MD Work Phone: noms ENT NORMICHOACANOtart: 01-31-2025 End: 75-12-3724yukisqmpnqHOMZBL H TIMMISNot AvailableStart: 01-31-2025 End: 27-75-6286Hggmdm outpatient visit 15 minutesHidiamond Brennan MD Work Phone: [facility] GENESEE HOSPITALKComment on above: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)Start: 01-24-2025 End: 34-01-6524iiopahicflWkgnt [address] Work Phone: Hematology/OncologyComment on above:Oropharnyx cancer (HCC) (Primary Dx); 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); Adrenal insufficiency (HCC); Malaise and fatigueStart: 01-17-2025 End: 20-26-9557JkmhrvHbeyChuck Jones MD Work Phone: EndocrinologyComment on above:Med Change RequestStart: 01-15-2025 End: 41-44-6185Nlpjjoqoo encounterChuck Jones MD Work Phone: EndocrinologyStart: 01-10-2025 End: 80-71-1447kutldlremcGGGONaveen JONESFacility:[facility] Hospitaltart: 01-10-2025 End: 69-98-9751Nudlwr outpatient visit 25 minutesChuck Jones MD Work Phone: EndocrinologyComment on above:Adrenal insufficiency (HCC) (Primary Dx); Acquired hypothyroidism; Gastroesophageal reflux disease, unspecified whether esophagitis presentStart: 12-13-2024 End: 11-59-4724Hoglvj outpatient visit 15 minutesLakia Medina MD Work Phone: Hematology/OncologyComment on above: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)Start: 12-13-2024 End: 85-52-7774ldlvgqjrawNvsdn [address] Work Phone: Hematology/OncologyComment on above:Oropharnyx cancer (HCC) (Primary Dx)Start: 11-01-2024 End: 73-49-1267Xnvtvv outpatient visit 25 minutesVicky Maguire APRN.CNP Work Phone: Hematology/OncologyComment on above: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); Encounter for immunotherapyStart: 11-01-2024 End: 61-64-4416kqxfnriwbgXfmmp [address] Work Phone: Hematology/OncologyComment on above:Oropharnyx cancer (HCC) (Primary Dx)Start: 11-01-2024 End: 70-35-1917Tykliq outpatient visit 15 minutesEnoch Brennan MD Work Phone: [facility] ENT NORWALKComment on above: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)Start: 11-01-2024 End: 29-64-7246jwpnncacnaVMVDRA H TIMMISNot AvailableStart: 10-31-2024 End: 39-89-0883Pxmwtg Jose J Ellsworth MD Work Phone: Radiation OncologyComment on above: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); Oropharnyx cancer (HCC); Secondary malignant neoplasm of right lung (HCC)Neoplasm of lung [D49.1] 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); Oropharnyx cancer (HCC)Start: 09-20-2024 End: 88-74-5125Fhurtb flowsheetEnoch Brennan MD Work Phone: [facility] NORWALKStart: 09-20-2024 End: 49-85-5247Wzbjdbnoah Brennan MD Work Phone: [facility] NORWALKStart: 09-20-2024 End: 44-61-3132Xkcedv outpatient visit 15 minutesEnoch Brennan MD Work Phone: [facility] NOR[facility]EN[facility] PSYCHIATRIC CENTERKComment on above: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)Start: 09-20-2024 End: 06-75-4713dlzdckxxpbVBXBFV H TIMMISNot AvailableStart: 09-13-2024 End: 50-22-0876Veudvup encounter procedureWhitney Hallman APRN.CNP Work Phone: Hematology/OncologyStart: 09-13-2024 End: 56-03-7783slstkcinykLmcic Martinez APRN.CNP Work Phone: Hematology/OncologyComment on above: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)Start: 08-20-2024 End: 36-30-6830Vampdr Joel Brennan MD Work Phone: noms CI ENTStart: 08-20-2024 End: 16-39-9073Wwnwob Joel Brennan MD Work Phone: noms CI ENTStart: 08-20-2024 End: 55-59-7582mmgobiuuilVAURTW H TIMMISNot AvailableStart: 08-20-2024 End: 34-71-0359Mpidhb outpatient visit 25 minutesEnoch Brennan MD Work Phone: noms CI ENTComment on above:Chronic otorrhea of right ear (Primary Dx); Squamous cell cancer of tongue (CMS/HCC)Start: 08-09-2024 End: 41-74-0134Ythneb outpatient visit 25 minutesChuck Jones MD Work Phone: EndocrinologyComment on above:Acquired hypothyroidism (Primary Dx); Abnormal FSH level; Abnormal LH levelStart: 08-02-2024 End: 43-66-1466wacxzfdwsoTmlct [address] Work Phone: Hematology/OncologyComment on above:Oropharnyx cancer (HCC) (Primary Dx)Start: 08-02-2024 End: 98-39-5996Ryzmie outpatient visit 25 minutesLakia Medina MD Work Phone: Hematology/OncologyComment on above: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); Adrenal insufficiency (HCC); Malaise and fatigueStart: 07-12-2024 End: 01-10-3786Snlojw Joel Brennan MD Work Phone: [facility] NORWALKStart: 07-12-2024 End: 82-32-1631Nevzfr Joel Brennan MD Work Phone: [facility] GEN[facility] HOSPITALKStart: 07-12-2024 End: 42-51-0137Hfnmxb outpatient visit 25 minutesHilastephanie Brennan MD Work Phone: n[facility] E[facility] BACKUS HOSPITALomment on above: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); Chronic myringitis of right earStart: 07-06-2024 End: 79-50-8184Tijmtiy encounter procedureTayla Ellsworth MD Work Phone: Radiation OncologyStart: 07-06-2024 End: 24-36-1953Uxjldmpzl Oncology NoteTayla Ellsworth MD Work Phone: Radiation OncologyComment on above:Completion Note Start: 07-05-2024 End: 13-24-0040Xxyjtn OnlyTayla Ellsworth MD Work Phone: Radiation OncologyComment on above:Neoplasm of lung (Primary Dx)Oropharnyx cancer (HCC) (Primary Dx); Secondary malignant neoplasm of right lung (HCC)Start: 07-05-2024 End: 67-43-9754ZsfjkfIyekcElva Borjas MD Work Phone: Hematology/OncologyComment on above:Refill Request Start: 06-28-2024 End: 70-13-1203Vyafetfpf Oncology NoteTayla Ellsworth MD Work Phone: Radiation OncologyComment on above:Simulation Note Treatment PlanningStart: 06-28-2024 End: 00-85-7429Lhhohmc encounter procedurePulm Fct Lab Main 5 Work Phone: Pulmonary MedicineComment on above:SpirometryStart: 06-28-2024 End: 72-67-2687Fnwlail evaluation of patient and reportNurse Radt Main Work Phone: Radiation OncologyComment on above:Encounter for observation for other suspected diseases and conditions ruled out (Primary Dx) Start: 06-20-2024 End: 25-00-1557onmoqwuaitAilql [address] Work Phone: Hematology/OncologyComment on above:Oropharnyx cancer (HCC) (Primary Dx)Start: 06-20-2024 End: 07-66-1541Ulkdwi outpatient visit 25 minutesLakia Medina MD Work Phone: Hematology/OncologyComment on above: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); Oropharnyx cancer (HCC); Adrenal insufficiency (HCC)Start: 06-17-2024 End: 91-99-6561Wigfhlvon encounterLakia Medina MD Work Phone: Hematology/OncologyComment on above:Lab OrdersStart: 06-13-2024 End: 26-83-7756Ulepvt Jose J Ellsworth MD Work Phone: Radiation OncologyComment on above: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); Oropharnyx cancer (HCC)Start: 06-11-2024 End: 47-01-1974Mfvulj Jose J Ellsworth MD Work Phone: Radiation OncologyComment on above:Oropharnyx cancer (HCC) (Primary Dx); 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)Start: 05-31-2024 End: 28-98-7304pilscnsnajMutgdTiana Borjas MD Work Phone: Hematology/OncologyComment on above:RadiationStart: 05-21-2024 End: 86-43-8497npexujnydtPQSMGH C CICENIAFacility:[facility] HospitalStart: 05-17-2024 End: 23-27-2735Mrmwomzrdxxuf examination doneKarolina Catalan MD Work Phone: [facility]Start: 05-17-2024 End: 89-88-7443Uzsvexajbcau consultation with Maisha Catalan MD Work Phone: PulmonologyStart: 05-17-2024 End: 35-06-0990nqyhiaxhpkUozzk Marty MD Work Phone: PulmonologyComment on above:Lung nodule (Primary Dx); Preoperative examinationStart: 05-16-2024 End: 68-24-8989Qntgugv evaluation of patient and reportMa Nurse Hilario Tafoya Work Phone: Hematology/OncologyComment on above:AdenopathyStart: 05-14-2024 End: 21-64-1090Urjpzvcmm to [facility] AnesthesiaStart: 05-14-2024 End: 46-90-4229Spwyapmopvouk examination [facility] Work Phone: Start: 05-14-2024 End: 07-85-3760Lamyaynwsx consultationNegrita SINGH Work Phone: Pre AnesthesiaComment on above:Pre-op evaluation (Primary Dx); 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); Former smoker; Hypothyroidism, unspecified type; Adrenal insufficiency (HCC); Primary hypertension; Hyperlipidemia, unspecified hyperlipidemia type; Stage 3 chronic kidney disease, unspecified whether stage 3a or 3b CKD (HCC)Lab resultsStart: 71-65-9080L-mail encounter from caregiverNegrita SINGH Work Phone: pre AnesthesiaStart: 31-47-8867hlamhbbywfHxsnst C Cicenia MD Work Phone: PulmonologyComment on above:Bronchoscopy Scheduling Start: 05-10-2024 End: 11-97-7961Xrdmoa consultation new/estab patient 60 Issac Jones MD Work Phone: EndocrinologyComment on above:Acquired hypothyroidism (Primary Dx); Adrenal insufficiency (HCC)Start: 05-08-2024 End: 62-48-0218Maughnzll encounterElizabeth Borjas MD Work Phone: Cancer Appts MCComment on above:Future Appointment Start: 05-08-2024 End: 00-44-0038hzsoezhxknDgdahTiana Borjas MD Work Phone: Hematology/OncologyComment on above:Oropharnyx cancer (HCC) (Primary Dx)Start: 05-08-2024 End: 29-71-0779Pxrwlwo encounter procedureElizabeth Borjas MD Work Phone: Hematology/OncologyStart: 05-03-2024 End: 55-42-2731Hbnqfxlgdf hospital visit by physicianArrival Time Radiology Work Phone: Radiology Pet CTComment on above: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]Start: 04-12-2024 End: 32-81-8502Pidqelu encounter procedureMD Julian Burton Work Phone: [facility] [place] Work Phone: Start: 04-12-2024 End: 93-87-5860sueyoljtjaBM Julian Burton Work Phone: [facility] Work Phone: Start: 98-60-1415exkbeuobyzSwdtf Karamlou MD Work Phone: Hematology/OncologyComment on above:Entry Engineer Start: 03-26-2024 End: 92-62-8455setgrspjdhWogfe [address] Work Phone: Hematology/OncologyComment on above:Oropharnyx cancer (HCC) (Primary Dx); Malaise and fatigue; Thunderclap headacheStart: 03-26-2024 End: 54-43-8505Jgkhsz outpatient visit 25 minutesTremaine Gomez PA-C Work Phone: Hematology/OncologyComment on above:Oropharnyx cancer (HCC) (Primary Dx); Malaise and fatigue; Thunderclap headacheStart: 00-18-6776Idfnlncaw encounterTremaine Gomez PA-C Work Phone: Hematology/OncologyComment on above:Lab OrdersStart: 02-13-2024 End: 42-51-9540rgmtpbiehkIdjxb [address] Work Phone: Hematology/OncologyComment on above:Oropharnyx cancer (HCC) (Primary Dx); 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)Start: 01-02-2024 End: 45-63-1336lptxlnsnveRimyt [address] Work Phone: Hematology/OncologyComment on above: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); 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)Start: 01-02-2024 End: 20-19-4685Flnzamq encounter procedureWhiteny Hallman APRN.CNP Work Phone: SANDUSKYStart: 74-90-8290Uktxzbnjc encounterChiqui Modi RN Work Phone: Hematology/OncologyComment on above:Care Coordination (Thyroid medication)Start: 12-12-2023 End: 18-23-4968pljoorgauaVdfug Karamlou MD Work Phone: Hematology/OncologyComment on above:Oropharnyx cancer (HCC) (Primary Dx)Start: 12-12-2023 End: 82-15-2896Kyrdfqm encounter procedureElizabeth Borjas MD Work Phone: SANDUSKYStart: 12-08-2023 End: 43-79-7074Dqgyzhzsja hospital visit by physicianArrival Time Radiology Work Phone: Radiology Pet CTComment on above: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]Start: 04-84-9325Hkomwa flowsheetEnoch Brennan MD Work Phone: [facility] NORWALKStart: 18-92-5730Tilkwi flowsheet Enoch Brennan MD Work Phone: noms ENT NORWALKStart: 11-17-2023 End: 26-09-3014Nzwujj outpatient visit 15 minutesHidiamond Brennan MD Work Phone: noms ENT NORWALKComment on above: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); 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)Start: 97-86-2868Aneuglqls encounterElizabeth Borjas MD Work Phone: Hematology/OncologyComment on above:OrdersStart: 11-14-2023 End: 18-20-5652bajbsesoeyJrwraTiana oBrjas MD Work Phone: Hematology/OncologyComment on above:Oropharnyx cancer (HCC) (Primary Dx)Start: 11-14-2023 End: 63-94-7954Bgjuqfy encounter Brody Borjas MD Work Phone: SANDUSKYStart: 09-26-2023 End: 01-47-1491Iyhgros evaluation of patient and reportChiqui Modi RN Work Phone: Hematology/OncologyComment on above:Oropharnyx cancer (HCC) (Primary Dx)Start: 09-26-2023 End: 78-43-2773fghhofhznlZgxfnTiana Borjas MD Work Phone: Hematology/OncologyComment on above:Oropharnyx cancer (HCC) (Primary Dx)Start: 09-26-2023 End: 02-38-2694Gednrzw encounter Brody Borjas MD Work Phone: SANDUSKYStart: 09-22-2023 End: 07-81-4162Pzxpeumhzj hospital visit by physicianArrival Time Radiology Work Phone: Radiology Pet CTComment on above:Neoplasm of lung [D49.1]Start: 17-26-3050Evapmylst encounterElizabeth Borjas MD Work Phone: Hematology/OncologyComment on above:Lab OrdersStart: 09-21-2023 End: 58-62-0210Igdklvx encounter Marni Craig [facility] Start: 84-62-2320Htmnesbnm encounterPoly Doran RN Hematology/OncologyComment on above:AppointmentStart: 67-34-6541oajmbwvgwmHazmbTiana Borjas MD Work Phone: Hematology/OncologyComment on above:Caitlin Lisstart: 09-06-2023 End: 18-17-4897yvxdjslofqBicgmTiana Borjas MD Work Phone: Hematology/OncologyComment on above:Oropharnyx cancer (HCC) (Primary Dx); Neoplasm of lungStart: 09-06-2023 End: 34-56-8210Pnmrjtg encounter procedureElizabeth Borjas MD Work Phone: SANDUSKYStart: 08-30-2023 End: 30-40-2863Niyofdmplo hospital visit by Zina Alexander MD Work Phone: AdmittingComment on above:Bronchiolar disease [J98.09] Start: 08-24-2023 End: 56-28-0091Aszjygd encounter Maximo Alvarez MD Work Phone: Pulmonary MedicineComment on above:Pulmonary nodule (Primary Dx); Oropharnyx cancer (HCC); 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); Preoperative examinationStart: 08-24-2023 End: 35-42-7925Scesyxocrmslx examination Aram Alvarez MD Work Phone: [facility] 08-24-2023 End: 92-51-0615Fywfipuroo hospital visit by Mayela Teran Work Phone: RadiologyComment on above:Pulmonary nodule [R91.1] Start: 36-24-0214Hvelgbtyi encounterElizabeth Borjas MD Work Phone: Cancer Appts MCComment on above:Bronchoscopy SchedulingStart: 45-49-3137caztosefazLld-Wei Low MD Work Phone: pulmonary MedicineComment on above:Bronchoscopy Scheduling (Initial Bronch Request )Nodules in my lungStart: 08-03-2023 Preprocedural examination Db Alexander MD Work Phone: [facility] Work Phone: Start: 07-25-2023 End: 04-66-0740zbvctqxvwmVakydTiana Borjas MD Work Phone: Hematology/OncologyComment on above:Oropharnyx cancer (HCC) (Primary Dx)Start: 07-25-2023 End: 74-01-1799Kztyzlk encounter procedureElizabeth Borjas MD Work Phone: SANDUSKYStart: 07-18-2023 End: 23-91-3949Jqpfjdorxw hospital visit by physicianArrival Time Radiology Work Phone: Radiology Pet CTComment on above: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]Start: 07-07-2023 End: 45-15-8537Vfuxamt encounter procedureNorma Craig [facility] Start: 06-08-2023 End: 62-31-5086Dnwbypz encounter procedureNorma Craig [facility] Start: 05-16-2023 End: 28-24-6512Buythmk encounter procedureMD Julian Burton Work Phone: [facility] [place] Work Phone: Start: 05-16-2023 End: 08-44-5468wuummpikeoSL Douglas M Hoy Work Phone: [facility] Work Phone: Start: 04-18-2023 End: 10-58-6100stwxsixyleVtzabTiana Borjas MD Work Phone: Hematology/OncologyComment on above:Oropharnyx cancer (HCC) (Primary Dx)Start: 04-18-2023 End: 36-89-9934Wuiiujd encounter procedureElizabeth Borjas MD Work Phone: SANDUSKYComment on above:Encounter for observation for other suspected diseases and conditions ruled out (Primary Dx)Start: 04-14-2023 End: 65-64-9840Igpkrhhhrw hospital visit by physicianArrival Time Radiology Work Phone: Radiology Pet CTComment on above: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]Start: 03-02-2023 End: 45-58-0607Bughhot encounter procedureG Alex Ivy MD Work Phone: Radiation OncologyComment on above:Oropharnyx cancer (HCC) (Primary Dx)Start: 01-27-2023 End: 78-46-2817Mctkgao encounter procedureG Alex Ivy MD Work Phone: Radiation OncologyComment on above:Oropharnyx cancer (HCC) (Primary Dx)Start: 61-13-9591Cjhoosozw encounterTremaine Gomez PA-C Work Phone: Hematology/OncologyComment on above:ResultsStart: 01-20-2023 End: 65-69-6965hizhnmzlauOoeqi M Musser PA-C Work Phone: Hematology/OncologyComment on above:Oropharnyx cancer (HCC) (Primary Dx)Start: 01-20-2023 End: 75-29-2531Niahafl encounter procedureMindalia Gomez PA-C Work Phone: SANDUSKYStart: 01-13-2023 End: 92-53-1890qwqcbkejpcDceks M Musser PA-C Work Phone: Hematology/OncologyComment on above: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)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); Oropharnyx cancer (HCC)Start: 01-13-2023 End: 26-67-2386Uwjyueu encounter procedureTremaine Gomez PA-C Work Phone: SANDUSKYStart: 01-12-2023 End: 41-74-8760Ytdcpsi encounter procedureG Alex Ivy MD Work Phone: Radiation OncologyComment on above:Oropharnyx cancer (HCC) (Primary Dx)Start: 01-11-2023 End: 21-71-5864sarxiwoiepMmpxzTiana Borjas MD Work Phone: Hematology/OncologyComment on above: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)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); Oropharnyx cancer (HCC)Start: 01-11-2023 End: 30-60-8834Hughqwd encounter procedureElizabeth Borjas MD Work Phone: SANDUSKYStart: 22-22-8480OzybftSbdpu Karamlou MD Work Phone: Hematology/OncologyComment on above:Refill Request Start: 01-06-2023 End: 98-32-2303mjmqcwcebyEamqnydonh Demi CHEN Work Phone: sANDUSKYStart: 01-06-2023 End: 79-83-9890Cycxfnqhg therapyJacqueline Demi CHEN Work Phone: Nutrition TherapyComment on above:Nutrition Counseling Start: 48-94-6391Xcvilfg encounter procedureG Alex Ivy MD Work Phone: SANDUSKYStart: 34-26-6062Mfpmolkwd Oncology NoteG Alex Ivy MD Work Phone: Radiation OncologyComment on above:Completion Note Start: 01-02-2023 End: 70-67-1864Nvmvvwq encounter procedureG Alex Ivy MD Work Phone: Radiation OncologyComment on above:Oropharnyx cancer (HCC) (Primary Dx); Cancer related painStart: 28-28-7476Vkvafvhvx Oncology NoteG Alex Ivy MD Work Phone: Radiation OncologyComment on above:Treatment Planning Start: 12-30-2022 End: 84-34-9776aafcmhsqxfGkrnw 21 [address] Work Phone: Hematology/OncologyComment on above: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); Oropharnyx cancer (HCC)Start: 97-12-6079Ypbgbqbvp encounterElizabeth Borjas MD Work Phone: Radiation OncologyComment on above:FatigueStart: 79-38-1698Efapfhllm encounterChiqui Modi RN Work Phone: Hematology/OncologyComment on above:Care Coordination (Toxicity check)Start: 12-26-2022 End: 45-79-6442oywchwnjnkVfxnppbwed Kaetzel RD Work Phone: sANDUSKYStart: 12-26-2022 End: 84-46-4366Ketttlvir therapyJacgisel Simms RD Work Phone: Nutrition TherapyComment on above:Nutrition Counseling Start: 12-26-2022 End: 70-16-6395Cahinok encounter procedureG Alex Ivy MD Work Phone: Radiation OncologyComment on above:Oropharnyx cancer (HCC) (Primary Dx)Start: 44-28-4195Qjxqyfhqa Oncology NoteG Alex Ivy MD Work Phone: Radiation OncologyComment on above:Simulation Note Treatment PlanningStart: 12-26-2022 End: 73-57-2775Amvqylparg hospital visit by physicianNino Ivy MD Work Phone: Radiology Pet CTStart: 12-21-2022 End: 61-39-9516mvbmbirrluKzyia Karamlou MD Work Phone: Hematology/OncologyComment on above:Oropharnyx cancer (HCC) (Primary Dx)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); Oropharnyx cancer (HCC)Start: 12-21-2022 End: 26-32-5603Avuansv encounter procedureElizabeth Borjas MD Work Phone: SANDUSKYStart: 89-42-2132Mnelurcgu encounterChiqui oMdi RN Work Phone: Hematology/OncologyComment on above:Care Coordination (Toxicity check)Start: 12-19-2022 End: 27-19-7065ntgpzxhcwkWjvzmvqryn Demi RD Work Phone: sANDUSKYComment on above: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); Oropharnyx cancer (HCC)Start: 12-19-2022 End: 56-67-5325Dyfcjqcvt therapyJacdeloresline Demi RD Work Phone: Nutrition TherapyComment on above:Nutrition Assessment Start: 12-15-2022 End: 28-90-0836Rrqlqw OnlyG Alex Ivy MD Work Phone: Radiation OncologyComment on above: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); Oropharnyx cancer (HCC)Start: 12-14-2022 End: 49-37-5778Oqispzccf therapyJacqueline Demi RD Work Phone: Nutrition TherapyComment on above:Nutrition Counseling Start: 12-14-2022 End: 00-81-3125uazarpqoxbHspkd M Musser PA-C Work Phone: Hematology/OncologyComment on above:Oropharnyx cancer (HCC) (Primary Dx); Esophagitis; Elevated prostate specific antigen (PSA)Oropharnyx cancer (HCC) (Primary Dx) Start: 12-14-2022 End: 59-23-6576Bkfxwwq encounter procedureTremaine Gomez PA-C Work Phone: SANDUSKYStart: 12-12-2022 End: 88-97-8772gzsgslsvziRmrdtirbzh Kaetzel RD Work Phone: sANDUSKYStart: 12-12-2022 End: 09-54-4432Pobmuucgz therapyJacqueline Karonn RD Work Phone: Nutrition TherapyComment on above:Nutrition Counseling Start: 12-12-2022 End: 27-60-2187Eoqolhj encounter procedureG Alex Ivy MD Work Phone: Radiation OncologyComment on above:Oropharnyx cancer (HCC) (Primary Dx)Start: 12-07-2022 End: 40-13-6797qweuotntgxFletk M Musser PA-C Work Phone: Hematology/OncologyComment on above:Oropharnyx cancer (HCC) (Primary Dx); EsophagitisOropharnyx cancer (HCC) (Primary Dx)Start: 12-07-2022 End: 41-59-2244Ewihdfq encounter procedureTremaine SINGH-C Work Phone: SANDUSKYStart: 12-06-2022 End: 33-00-1714eaoxdjcoffRatfbbywmp Paulineel RD Work Phone: sANDUSKYStart: 12-06-2022 End: 85-49-8234Qcgmqcdzs therapyJacqueline Kasomel RD Work Phone: Nutrition TherapyComment on above:Nutrition Counseling Start: 48-30-2334Xabjrojpf encounterChiqui Modi RN Work Phone: Hematology/OncologyComment on above:Care Coordination (Toxicity check)Start: 12-05-2022 End: 09-24-8026tssnyflbpyItsihbdjcz Kaetzel RD Work Phone: sANDUSKYStart: 12-05-2022 End: 16-86-5025Zjjgdwfue therapyJacqueline Kaetzel RD Work Phone: Nutrition TherapyComment on above:Nutrition Assessment Start: 12-05-2022 End: 94-20-5756Mqvawtr encounter procedureG Alex Ivy MD Work Phone: Radiation OncologyComment on above:Oropharnyx cancer (HCC) (Primary Dx)Start: 11-29-2022 End: 52-96-4976dupxbnqgagVvcdxroxon Kaetzel RD Work Phone: sANDUSKYStart: 11-29-2022 End: 55-64-5856Aftjjiqds therapyJacgisel Simms RD Work Phone: Nutrition TherapyComment on above:Nutrition Counseling Start: 11-29-2022 End: 97-69-8482eeahwzgdjeKxbsp Landon [place]af[place] Work Phone: Hematology/OncologyComment on above:Oropharnyx cancer (HCC) (Primary Dx)Start: 11-28-2022 End: 30-06-1817Slwgzrq encounter procedureG Alex Ivy MD Work Phone: Radiation OncologyComment on above:Oropharnyx cancer (HCC) (Primary Dx)Start: 48-06-0505Wzmnbdhvr encounterTifgeorge Modi RN Work Phone: Hematology/OncologyComment on above:Care Coordination (C1D1 treatment follow up call)Start: 93-38-4742Ngxnuhfaf encounterFinancial Navigator Hilario Work Phone: Hematology/OncologyComment on above:Benefits InvestigationStart: 11-21-2022 End: 76-95-0126qvilynfquqZkicg M Musser PA-C Work Phone: Hematology/OncologyComment on above:Oropharnyx cancer (HCC) (Primary Dx)Start: 11-21-2022 End: 58-26-1097fuunlsfxlaRgcwekuuut Kaetzel RD Work Phone: sANDUSKYStart: 11-21-2022 End: 99-85-5120Wqrvcmvmf therapyJaestefani Simms RD Work Phone: Nutrition TherapyComment on above:Nutrition Counseling Start: 11-21-2022 End: 02-14-0616Ivggkuq encounter procedureTremaine Gomez PA-C Work Phone: SANDUSKYStart: 13-46-3343Wmaryfd encounter procedure Ccf ProviderWvumedicine [facility] DepartmentStart: 25-16-0915Svqcwiryi encounterG Alex Ivy MD Work Phone: Radiation OncologyComment on above:Patient UpdateCare Coordination (Change in treatment date)Lab OrdersStart: 11-14-2022 End: 32-51-7792Vsnmngm encounter procedureG Alex Ivy MD Work Phone: Radiation OncologyComment on above:Oropharnyx cancer (HCC) (Primary Dx)Start: 56-58-7912Ywtsiuqps Oncology NoteG Alex Ivy MD Work Phone: Radiation OncologyComment on above:Simulation Note Treatment PlanningStart: 11-14-2022 End: 45-61-9998Koqpisedtq hospital visit by physicianNino Ivy MD Work Phone: Radiology Pet CTStart: 11-11-2022 End: 87-68-4132Xhiypdrvlv hospital visit by physicianArrival Time Radiology Work Phone: Radiology Pet CTComment on above: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]Start: 11-04-2022 End: 84-62-3797hzlzrmswvqJfpekdwizj Kaetzel RD Work Phone: sANDUSKYStart: 11-04-2022 End: 63-31-6769Gzwhtunpr therapyJacgisel Simms RD Work Phone: Nutrition TherapyComment on above:Nutrition Assessment Start: 03-29-5651Xtfkpcfoq encounterBridgenewton Oro [facility] Work Phone: HOSPITAL PHARMACY HB-3Comment on above:Medication Authorization (Ondansetron )AppointmentStart: 11-03-2022 End: 49-84-5684Phcimat encounter procedureNino Ivy MD Work Phone: Radiation OncologyComment on above:Oropharnyx cancer (HCC) (Primary Dx)Start: 11-03-2022 End: 16-55-7833Ddeimiu evaluation of patient and reportChiqui Modi RN Work Phone: Hematology/OncologyComment on above:Oropharnyx cancer (HCC) (Primary Dx)Start: 11-02-2022 End: 02-74-9499ynseabzytyMjwpl Karamlou MD Work Phone: Hematology/OncologyComment on above:Oropharnyx cancer (HCC); 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)Start: 11-02-2022 End: 21-79-2697Hqpnagl encounter procedureElizabeth Borjas MD Work Phone: SANDUSKYStart: 31-47-9782Ujbipgt encounter procedure Ccf ProviderWvumedicine [facility] DepartmentStart: 27-78-6020Xkjoieqfr encounterG Alex Ivy MD Work Phone: Radiation OncologyComment on above:Patient Update Start: 03-80-4083fwrpaenrtiWztlya Graves LPNRadiation OncologyComment on above: Patient EducationStart: 10-27-2022 End: 59-05-2400Usboosh encounter procedureG Alex Ivy MD Work Phone: Radiation OncologyComment on above:Oropharnyx cancer (HCC) (Primary Dx)Start: 00-95-1414Wbeaykzcs encounterG Alex Ivy MD Work Phone: Cancer Appts MCComment on above:AppointmentStart: 10-18-2022 End: 45-82-4263lqqtkwbaytVD ENOCH TIMMISFacility:X5Klbyl: 98-88-2225Fqtypbcwc for preprocedural cardiovascular examinationDR [facility] HospitalStart: 00-40-2205Zepclsmxm for preprocedural laboratory examinationDR ENOCH [facility] HospitalStart: 10-13-2022 End: 01-64-6326coevntitniEA ENOCH TIMMISFacility:G1Ghenm: 10-13-2022 End: 57-08-1187Sccywrjds for preprocedural laboratory examinationDR ENOCH TIMMISFacility:J7Cejqz: 09-19-2022 End: 42-14-0752amcufnosmmJZ JULIAN BURTON .Facility:M7Cmcou: 09-09-2022 End: 76-52-3851tnsnfipdmrCH JULIAN HOY .Facility:R4Stiqk: 39-66-0821Ctzptujin for general adult medical examination without abnormal findingsDR JULIAN HOY . [facility] HospitalStart: 08-06-2022 End: 71-24-0219xkvgtdkzqcAN JULIAN HOY .Facility:I7Ntewd: 08-06-2022 End: 59-72-0187Pkpgkfvly for general adult medical examination without abnormal findingsDR JULIAN HOY .Facility:F5Srqzi: 06-10-2022 End: 86-10-8728Zxzcpca encounter procedureLanrobi Velez [facility] Start: 04-20-2022 End: 56-30-4484clrqpaxjmxID NICOLA LongoriaFacility: Procedures DateProcedureProcedure DetailPerforming ClinicianStart: 22-04-6546Endas count complete auto&auto difrntl wbcLakia Medina MD Work Phone: Start: 05-60-7769Slpzr count complete auto&auto difrntl wbcLakia Medina MD Work Phone: Start: 18-84-0562Nt abdomen w/contrast materialTayla Ellsworth MD Work Phone: Start: 44-35-6453Rq thorax w/contrast materialTayla Ellsworth MD Work Phone: Start: 69-75-1057Yyiru count complete auto&auto difrntl wbcLakia Medina MD Work Phone: Start: 94-42-0523Hd thorax w/o contrast material Tayla Ellsworth MD Work Phone: Start: 94-66-3889Mzlonu w/vc expiratory marcus w/wo mxml vol vntjTayla Ellsworth MD Work Phone: Start: 27-30-4084Du abdomen & pelvis w/contrast materialMindy M Selma PA-C Work Phone: Start: 97-53-1942Yo thorax w/contrast Anamaria Dowling Selma PA-C Work Phone: Start: 08-98-7225JKH of headMD Julian Burton Work Phone: Start: 56-00-1660Lxtrblwrryrjzskqcpe hormone acthTremaine Dowling Selma PA-C Work Phone: Start: 05-25-7560Btzrn count complete auto&auto difrntl wbcHolly Tang ELECTRIC MOTOR REPAIR SUPERVISOR.DIESEL LOCOMOTIVE ENGINEER Work Phone: Start: 58-13-6191Zj abdomen & pelvis w/contrast Re Borjas MD Work Phone: Start: 10-22-7045St thorax w/contrast Re Borjas MD Work Phone: Start: 72-79-0566SOIWCCZHYX Mary Borjas MD Work Phone: Start: 56-77-7103Fzt imaging ct attenuation skull base mid-thighElizabeth Borjas MD Work Phone: Start: 99-68-9165Mhba bld gluc mntr dev cleared fda spec home useCcf ProviderStart: 55-85-2926Fwgymiq incl fluor gdnce dx w/cell washg spxCcf ProviderStart: 11-36-9319Ww thorax w/o contrast Denice Alexander MD Work Phone: Start: 76-52-7360Pb thorax w/o contrast Re Borjas MD Work Phone: Start: 14-61-4018YZP-US fusion guided prostate biopsy Nroma Craig Start: 11-85-3145Uyv imaging ct attenuation skull base mid-thighTremaine Dowling Selma SINGH-C Work Phone: Start: 04-14-2023 End: 32-38-4890Gzdpi count complete auto&auto difrntl wbcMindalia Dowling Selma VICK Work Phone: Start: 03-19-7547Yaqfr count complete auto&auto difrntl wbcMindalia Dowling Selma VICK Work Phone: Start: 36-09-4301Xqx imaging ct attenuation skull base mid-thighG Alex Ivy MD Work Phone: Start: 46-45-6345Czta bld gluc mntr dev cleared fda spec home useCcf ProviderStart: 24-83-9614Lchyqhuyrme biopsy of prostate using ultrasound guidanceShelly Monkimun ColonoscopyLanMagnitude Software TonsillectomyTerahertz Photonics Plan of Treatment DateCare ActivityDetailAuthorStart: 04-89-1364Hhkrgcrk ScreeningDiabetes ScreeningParkwood Hospitaltart: 56-23-8846Wavxdcrp ScreeningDiabetes Screening [facility]: 22-54-0472Jrniydms ScreeningDiabetes ScreeningParkwood Hospitaltart: 26-37-5134Rskitgpa ScreeningDiabetes ScreeningWvumedicine [facility] Start: 19-71-2585Krbyjrut ScreeningDiabetes ScreeningParkwood Hospitaltart: 69-96-8641JYCRTRCG CANCER SCREENING DISCUSSIONPROSTATE CANCER SCREENING DISCUSSIONParkwood Hospitaltart: 22-64-8529Uliwkzvv specific antigen measurement Prostate Cancer Screening DiscussionParkwood Hospitaltart: 30-57-1822Fijumlcj ScreeningDiabetes ScreeningParkwood Hospitaltart: 21-89-0972Equvcgdr Screening Diabetes ScreeningParkwood Hospitaltart: 28-49-9938Npcvpoia ScreeningDiabetes ScreeningParkwood Hospitaltart: 77-99-7563Bviiujxx ScreeningDiabetes Screening [facility]: 33-41-5797Avvzbqku ScreeningDiabetes ScreeningParkwood Hospitaltart: 98-23-5434Emgabffa ScreeningDiabetes ScreeningWvumedicine [facility] Start: 47-63-1811Xqpcedoc ScreeningDiabetes ScreeningParkwood Hospitaltart: 09-55-3897Yictmasr ScreeningDiabetes ScreeningParkwood Hospitaltart: 12-11-2026 Diabetes ScreeningDiabetes ScreeningParkwood Hospitaltart: 60-42-7585Hjdwefra ScreeningDiabetes ScreeningParkwood Hospitaltart: 67-57-6418Jcgvvags Screening Diabetes ScreeningParkwood Hospitaltart: 14-16-9608Ilqicqvf ScreeningDiabetes ScreeningParkwood Hospitaltart: 50-66-3933Jfpydogx blood count Hemoglobin/HematocritParkwood Hospitaltart: 26-71-7091Srowyomqqg measurement Serum CreatinineParkwood Hospitaltart: 06-04-4762Ntdilors blood count Hemoglobin/HematocritParkwood Hospitaltart: 79-53-2432Zefjtbfljq measurement Serum CreatinineParkwood Hospitaltart: 63-84-7620TJMOMDWM SCREENDIABETES SCREEN [facility]: 29-56-9104SC Controlled (<130/80)BP Controlled (<130/80) [facility]: 24-65-5533Gykdhtsose measurementSerum CreatinineParkwood Hospitaltart: 58-72-0447VU Controlled (<130/80)BP Controlled (<130/80)[facility]: 76-28-4427Ogfokyyi blood countHemoglobin/HematocritWvumedicine [facility] Start: 08-14-0888Mmsbqczgvm measurementSerum CreatinineParkwood Hospitaltart: 08-87-4059XENMUXJS SCREENDIABETES [facility]: 01-16-2026 End: 41-39-6587YHWUTINZWHTU TESTOSTERONE, ADULT MALEBIOAVAILABLE TESTOSTERONE, ADULT MALE Lab Routine Abnormal FSH level Expected: 01/16/2026, Expires: 05/28/2026[facility] HospitalComment on above:Expected: 01/16/2026, Expires: 05/28/2026Start: 01-16-2026 End: 59-89-9829Deagaaozkvl [Units/volume] in Serum or PlasmaFOLLICLE STIMULATING HORMONE Lab Routine Abnormal FSH level Expected: 01/16/2026, Expires: [facility] Work Phone: Comment on above:Expected: 01/16/2026, Expires: 05/28/2026Start: 01-16-2026 End: 36-45-9505Swrfgsmt [Units/volume] in Serum or PlasmaLUTEINIZING HORMONE Lab Routine Abnormal FSH level Expected: 01/16/2026, Expires: 05/28/2026leveland ClinicComment on above:Expected: 01/16/2026, Expires: 05/28/2026Start: 01-16-2026 End: 06-47-8702Gelfmmgoxhy [Units/volume] in Serum or PlasmaTHYROID STIMULATING HORMONE Lab Routine Acquired hypothyroidism Expected: 01/16/2026, Expires: 05/28leveland ClinicComment on above:Expected: 01/16/2026, Expires: 05/28/2026 Start: 88-73-2921SXPZSFXA SCREENDIABETES SCREENParkwood Hospitaltart: 01-11-2026 DIABETES SCREENDIABETES SCREENParkwood Hospitaltart: 66-24-4588YW Controlled (<130/80)BP Controlled (<130/80)[facility]: 10-97-9843JGUEGDOE SCREEN DIABETES SCREENParkwood Hospitaltart: 20-47-9996VHEGZMNH SCREENDIABETES SCREEN [facility]: 08-82-7140LGJYSFPY SCREENDIABETES SCREENWvumedicine Barnesville Hospital Start: 80-25-6327Rywmhwateu measurementSerum CreatinineParkwood Hospitaltart: 49-25-6621ISHLMNER SCREENDIABETES SCREENParkwood Hospitaltart: 11-29-2025 DIABETES SCREENDIABETES SCREENParkwood Hospitaltart: 50-40-2667UPBQQJWN SCREEN DIABETES SCREENParkwood Hospitaltart: 35-14-7201VJ Controlled (<130/80)BP Controlled (<130/80)[facility]: 26-30-6871Qplgnvew blood count Hemoglobin/HematocritParkwood Hospitaltart: 00-73-4301Flmioszatf measurement Serum CreatinineParkwood Hospitaltart: 21-65-8547FY Controlled (<130/80)BP Controlled (<130/80)[facility]: 21-77-0939Rqkubnypo for malignant neoplasm of lungLung Cancer ScreeningParkwood Hospitaltart: 43-01-8635PZ Controlled (<130/80)BP Controlled (<130/80)[facility]: 09-13-2025 Creatinine measurementSerum CreatinineParkwood Hospitaltart: 08-22-2025 End: 38-29-4749Urwdib-up encounterHematology/OncologyComment on above:12 week follow up lab chemotx KeytrudaStart: 08-22-2025 End: 24-66-9735Vicbskj encounter /14/2025 1:15 PM EST Office Visit [facility] [address] [place] [address] labNortSturgis Hospital LaboratoryComment on above:labStart: 76-05-2617AF Controlled (<130/80)BP Controlled (<130/80) [facility]: 58-20-8968Wossgpcg blood countHemoglobin/Hematocrit [facility]: 97-64-3514Dribpxmpda measurementSerum CreatinineParkwood Hospitaltart: 08-01-2025 End: 46-70-3413Uyxxbhv encounter procedureNOMS ENT NORWALKComment on above: ArrivedStart: 07-11-2025 End: 95-00-2218cpoeazvxbg20/03/2025 1:30 PM EDT Infusion Center Hematology/Oncology [address] [place] [address] [place] [address] chemotx KeytrudaHematology/OncologyComment on above:chemotx KeytrudaStart: 06-20-2025 Complete blood countHemoglobin/HematocritParkwood Hospitaltart: 06-20-2025 Creatinine measurementSerum CreatinineParkwood Hospitaltart: 10-09-4238Urzdocdgb vaccinationMCKAY-[facility] HealthcareStart: 06-05-2025 End: 67-32-0917Odrjybo encounter procedureRadiologyComment on above:C79.89Start: 05-30-2025 End: 17-89-5679Grravb-up encounterHematology/OncologyComment on above:12 week follow up lab chemotx KeytrudaStart: 05-30-2025 End: 73-08-8114Gvznzvu encounter czwzsqohs41/22/2025 1:00 PM EDT Office Visit [facility] [address] [place] [address] 12 week follow up lab chemotx KeytrudaNorth [facility] LaboratoryComment on above:12 week follow up lab chemotx Keytruda Start: 05-29-2025 End: 15-89-2315Czoqwz-up encounterHematology/OncologyComment on above:12 week follow up lab chemotx KeytrudaStart: 05-29-2025 End: 78-69-8781Lsyppsj encounter /21/2025 8:15 AM EDT Appointment Radiology [facility] [address] [place] [address] 12 week follow up lab chemotx KeytrudaRadiology Pet CTComment on above:12 week follow up lab chemotx KeytrudaStart: 05-28-2025 End: 73-19-0040etbwpgndql07/20/2025 1:00 PM EDT [facility] Endocrinology [address] [place] [address] Chuck Jones MD [address] [address] Return in about 3 months (around 04/11/2025).Endocrinology Comment on above:Return in about 3 months (around 04/11/2025).Start: 05-09-2025 End: 76-11-0174Ntjaeaj encounter mmhlwegxl34/01/2025 11:40 AM EDT Office Visit [facility]inology [address] [facility] [place] [address] Chuck Jones MD [address] [address] Return in about 3 months (around 04/11/2025).EndocrinologyComment on above:Return in about 3 months (around 04/11/2025).Start: 35-81-1300Hpungzca blood countHemoglobin/HematocritParkwood Hospitaltart: 12-17-1040Golgxwimsy measurementSerum CreatinineWvumedicine Barnesville Hospital Start: 55-58-6639Yegsvhmll for malignant neoplasm of lungLung Cancer Screening [facility]: 05-02-2025 End: 43-29-6725Xcdnmtu encounter uwqsbrybk70/25/2025 1:00 PM EDT [facility] [address] [facility] [address] [facility] [place] [address] Enoch Brennan MD [address] [facility] [address] [place] [address] ArrivedNOMS ENT JESSICAomment on above:ArrivedStart: 04-18-2025 End: 13-93-9956kqgiyalktk93/11/2025 1:30 PM EDT [facility] Center Hematology/Oncology [address] [place] [address] 6 week lab chemotx KeytrudaHematology/OncologyComment on above:6 week lab chemotx KeytrudaStart: 04-08-2025 End: 01-33-3824Hmzdgtzioan [Units/volume] in Serum or PlasmaTHYROID STIMULATING HORMONE Lab Routine Acquired hypothyroidism Expected: 04/08/2025, Expires: 04/11[facility] Work Phone: Comment on above:Expected: 04/08/2025, Expires: 04/11/2025Start: 03-07-2025 End: 42-71-3095Zwxkzb-up encounterHematology/OncologyComment on above:12 week follow up lab chemotx KeytrudaStart: 03-07-2025 End: 87-52-9227Qjsxrjb encounter yaabevjrj83/30/2025 1:45 PM EDT Office Visit [facility] [address] [place] [address] 12 week follow up lab chemotx KeytrudaNortSturgis Hospital LaboratoryComment on above:12 week follow up lab chemotx Keytruda Start: 02-20-2025 End: 44-17-0032Fmwjmev encounter bgfypmaus77/15/2025 10:30 AM EDT Office Visit Radiation Oncology [address] [place] [address] [place] [address] [place] [address] C79.89Radiation OncologyComment on above:C79.89Start: 02-20-2025 End: 04-45-3718Gjrozcc encounter procedureRadiologyComment on above:C79.89Start: 02-03-2025 End: 97-11-9762dqetsiyjkz05/28/2025 8:00 AM EDT Infusion Center Infusion [address] [facility] [place] [address] STIM TESTInfusionComment on above:STIM TESTStart: 01-24-2025 End: 44-53-5390Ixlapf-up ryzkginso30/18/2025 1:30 PM EDT Infusion Center Hematology/Oncology [address] [place] [address] 12 week follow up lab chemotx KeytrudaHematology/OncologyComment on above:12 week follow up lab chemotx KeytrudaStart: 01-03-2025 End: 81-40-9551Xuiyqtr encounter ctcrozoal88/28/2025 4:40 PM EDT Office Visit Endocrinology [address] [facility] [place] [address] Chuck Jones MD [address] [facility] [address] [place] [address] Follow upEndocrinologyComment on above: Follow upStart: 12-13-2024 End: 70-90-6899inwphjoenkVcqtrhvpmh/OncologyComment on above:6 week lab chemotx KeytrudaStart: 12-13-2024 End: 40-38-8959Bnvsrbq encounter dkeglhjib06/07/2025 1:15 PM EST Office Visit [facility] [address] [place] [address] 6 week lab chemotx KeytrudaNortSturgis Hospital LaboratoryComment on above:6 week lab chemotx KeytrudaStart: 12-07-2024 Screening for malignant neoplasm of lungLung Cancer ScreeningWvumedicine Barnesville Hospital Start: 12-06-2024 End: 96-11-2399Holbsko encounter /28/2025 2:40 PM EST Office Visit Endocrinology [address] [facility] [place] [address] Chuck Jones MD [address] [facility] [address] [place] [address] Follow upEndocrinologyComment on above: Follow upStart: 11-01-2024 End: 04-63-0208vzxkmdrjixGbntpjjwji/OncologyComment on above:7 week lab chemotx KeytrudaStart: 11-01-2024 End: 72-09-5613Emeppjh encounter procedureNOMS ENT NORWALKComment on above:7 week lab chemotx KeytrudaMultiple providersStart: 10-31-2024 End: 63-59-0202Ingkzyy encounter procedureRadiologyComment on above:Neoplasm of lung [D49.1]F/UStart: 10-14-2024 End: 23-60-8813SCGCEYBYMLNW TESTOSTERONE, ADULT MALEBIOAVAILABLE TESTOSTERONE, ADULT MALE Lab Routine Abnormal FSH level Abnormal LH level Expected: 03/2025, Expires: 08/09/2025[facility] Work Phone: Comment on above:Expected: 10/14/2024, Expires: 08/09/2025Start: 10-14-2024 End: 25-62-1504Hajzehju [Mass/volume] in Serum or PlasmaCORTISOL, SERUM Lab Routine Abnormal FSH level Abnormal LH level Expected: 10/14/2024, Expires: leveland ClinicComment on above:Expected: 10/14/2024, Expires: 08/09/2025 Start: 10-14-2024 End: 84-24-0900Hddozblleek [Units/volume] in Serum or PlasmaFOLLICLE STIMULATING HORMONE Lab Routine Abnormal FSH level Abnormal LH level Expected: 10/14/2024, Expires: 08/09/2025[facility] ClinicComment on above:Expected: 10/14/2024, Expires: 08/09/2025Start: 10-14-2024 End: 42-83-9082Hpjqrxah [Units/volume] in Serum or PlasmaLUTEINIZING HORMONE Lab Routine Abnormal FSH level Abnormal LH level Expected: 10/14/2024, Expires: 08/09/2025[facility] ClinicComment on above:Expected: 10/14/2024, Expires: 08/09/2025Start: 10-14-2024 End: [id number] [Mass/volume] in Serum or PlasmaPROLACTIN Lab Routine Abnormal FSH level Abnormal LH level Expected: 10/14/2024, Expires: 08/09/2025 [facility]:Expected: 10/14/2024, Expires: 08/09/2025Start: 10-14-2024 End: [id number] [Units/volume] in Serum or PlasmaTHYROID STIMULATING HORMONE Lab Routine Acquired hypothyroidism Abnormal FSH level Abnormal LH level Expected: 10/14/2024, Expires: 08/09/2025[facility] ClinicComment on above: Expected: 10/14/2024, Expires: 08/09/2025Start: 10-14-2024 End: 94-04-0059Sorecvhby (T4) free [Mass/volume] in Serum or PlasmaT4 FREE/FREE THYROXINE Lab Routine Acquired hypothyroidism Abnormal FSH level Abnormal LH level Expected: 10/14/2024, Expires: 08/09/2025leveland ClinicComment on above: Expected: 10/14/2024, Expires: 08/09/2025Start: 09-20-2024 End: 61-96-9076Ehhqgaa encounter procedureNOMS ENT BACKUS HOSPITALomment on above: ArrivedStart: 09-13-2024 End: 87-67-7948wbqxfsybzaDtobvtbkai/OncologyComment on above:6wk f/u chemo and labsper patient wants fridays6 week lab chemotx KeytrudaStart: 09-13-2024 End: 05-04-5310Plxcotj encounter fgfiswmgu38/06/2024 12:45 PM EST Office Visit [facility] [address] [place] [address] [place] [address] 6 week lab chemotx KeytrudaNortSturgis Hospital LaboratoryComment on above:6 week lab chemotx KeytrudaStart: 09-10-2024 End: 38-00-0427Nqlkhpe encounter mgbkcjiht80/03/2024 9:20 AM EST Office Visit Endocrinology [address] [facility] [address] Chuck Jones MD [address] [facility] [address] [place] [address] Return in about 1 month (around 06/10/2024).EndocrinologyComment on above:Return in about 1 month (around 06/10/2024).Start: 66-03-4351Ipuxqomff vaccinationLung Cancer ScreeningParkwood Hospitaltart: 08-20-2024 End: 93-24-3314Uxbdpoj encounter oianenuvv67/12/2024 1:00 PM EST Office Visit [facility] CI ENT [address] [place] [address] Enoch Brennan MD [address] [place] [address] NOMS CI ENTStart: 08-16-2024 End: 85-38-2216Myhhoyf encounter vehjnxjjw28/08/2024 1:30 PM EST Office Visit [facility] ENT MICHAEL [address] [place] [address] Enoch Brennan MD [address] [place] [address] NOMS ENT JESSICANJtart: 08-09-2024 End: 18-78-2796Asaycnr encounter ncobosngt01/01/2024 2:20 PM EDT Office Visit Endocrinology [address] [facility] [place] [address] Chuck Jones MD [address] [facility] [address] [place] [address] Return in about 1 month (around 06/10/2024).EndocrinologyComment on above:Return in about 1 month (around 06/10/2024).Start: 08-02-2024 End: 46-14-2063Hpvejqp encounter nhjmteazt92/25/2024 2:40 PM EDT Office Visit Endocrinology [address] [place] [address] Chuck Jones MD [address] [facility] [address] [place] [address] Return in about 1 month (around 06/10/2024).EndocrinologyComment on above:Return in about 1 month (around 06/10/2024).Start: 08-02-2024 End: 85-55-0445etybzmvfbvFvarppmwys/OncologyComment on above:6wk f/u chemo and labsper patient wants fridays6 week lab ANNY chemotx KeytrudaStart: 08-02-2024 End: 48-21-1114Uujkfqy encounter lflpzoxnt48/25/2024 12:45 PM EDT Office Visit [facility] [address] [place] [address] [place] [address] 6 week lab ANNY chemotx KeytrudaNortSturgis Hospital LaboratoryComment on above:6 week lab ANNY chemotx KeytrudaStart: 28-64-4458Attdejtys vaccinationLung Cancer ScreeningParkwood Hospitaltart: 07-12-2024 End: 78-85-8105Uiomlaa encounter procedureEndocrinologyComment on above:Return in about 1 month (around 06/10/2024).ArrivedStart: 07-05-2024 End: 47-66-6751Hldcvmg encounter procedureRadiation OncologyComment on above:2 ISO RUL ABC#2 TIME OK EFVMagi1SY3-K 2 ISO RUL ABC#2 TIME OK DLMTB1-J 1 ISO--2 LESIONS RUL ABC#2 TIME OK DLMStart: 06-28-2024 End: 12-45-3588Uiyyfso encounter elmlznpgc41/20/2024 11:30 AM EDT Procedure Pulmonary Medicine [address] [address] 2, Pulm Fct Lab [facility] [address] [place] [address] 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 Comment on above: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]Start: 06-28-2024 End: 35-45-0559Eirfvnr encounter procedureRadiation OncologyComment on above: Location: SIMULATOR CT-1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]SBRT RT LUNG *BODYFIX* consent done n/sStart: 06-28-2024 End: 28-69-9210Xprpvnw evaluation of patient and ujbbdx8806/28/2024 9:00 AM EDT Nurse Visit Radiation Oncology [address] [place] [address] [phone] Main, Nurse Radt [address] [place] [address] Location: NURSING CA-LLRadiation OncologyComment on above:Location: NURSING CA-LLStart: 06-20-2024 End: 51-10-7841ahwlfqbkynHfbxqyzsga/OncologyComment on above:6 week lab ANNY chemotx KeytrudaStart: 06-20-2024 End: 04-61-0671Tkkowaj encounter /12/2024 1:30 PM EDT Office Visit [facility] [address] [place] [address] 6 week lab ANNY chemotx KeytrudaNortSturgis Hospital LaboratoryComment on above:6 week lab ANNY chemotx KeytrudaStart: 06-11-2024 End: 33-05-5175Oehpdzc encounter rzmdujrdw87/03/2024 2:30 PM EDT Office Visit Radiation Oncology [address] [place] [address] [place] [address] [place] [address] 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]Radiation OncologyComment on above: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]Start: 48-04-8322Bcmoc-19 Vaccine ( season)Covid-19 Vaccine ( season)[facility] Hospitaltart: 85-52-4909Ecpgegjvv vaccinationParkwood Hospitaltart: 06-07-2024 End: 60-68-5704Dgaxtef encounter ekiamthrw44/30/2024 1:40 PM EDT Office Visit Endocrinology [address] [place] [address] Chuck Jones MD [address] [facility] [address] [place] [address] New Referral for Adrenal Insufficiency EndocrinologyComment on above:New Referral for Adrenal InsufficiencyStart: 05-21-2024 End: 55-57-4684Atdhcdvqg to same day surgery gpuyxr2805/21/2024 10:30 AM EDT - 05/21/2024 12:00 PM EDT Surgery [facility] - ENDO [address] [place] [address] Ras Starr MD [address] [place], [place] [id number] BRONCHOSCOPY,RIGID/FLEXIBLE W/ FLUORO,W/ENDOBRONCHIAL ULTRASOUND (EBUS) GUIDED TRANSTRACHEAL/ TRANSBRONCHIAL ASPIRATION/BIOPSY,1 OR 2 MEDIASTINAL AND/OR HILAR LYMPH NODE STATIONS/STRUCTURESSymmes Hospital Endoscopy - ENDOComment on above:BRONCHOSCOPY,RIGID/FLEXIBLE W/ FLUORO,W/ENDOBRONCHIAL ULTRASOUND (EBUS) GUIDED TRANSTRACHEAL/ TRANSBRONCHIAL ASPIRATION/BIOPSY,1 OR 2 MEDIASTINAL AND/OR HILAR LYMPH NODE STATIONS/STRUCTURESStart: 05-21-2024 End: 34-15-2412Lgolynx ebus guided sampl 1/2 node station/strux BRONCHOSCOPY,RIGID/FLEXIBLE W/ FLUORO,W/ENDOBRONCHIAL ULTRASOUND (EBUS) GUIDED TRANSTRACHEAL/ TRANSBRONCHIAL ASPIRATION/BIOPSY,1 OR 2 MEDIASTINAL AND/OR HILAR LYMPH NODE STATIONS/STRUCTURES Adenopathy 05/21/2024 10:30 AM EDTFV GIStart: 04-64-2117Chjxcaongl hospital visit by physicianSym[facility] Hospital Endoscopy - ENDOComment on above:Adenopathy [R59.9]Start: 05-17-2024 End: 25-32-4798nspbkeahph71/09/2024 9:30 AM EDT [facility] Pulmonology [address] [place] [address] [place] [address] [place] [address] H/P BRONCH 05/21PulmonologyComment on above:H/P BRONCH 05/21Start: 05-17-2024 End: 45-47-3121Ffwdwiq encounter pafqgomxd85/09/2024 8:30 AM EDT Office Visit [facility] [address] [place] [address] labIberia Medical Center LaboratoryComment on above:labStart: 05-17-2024 End: 43-66-1876vvmnqnlfsr31/09/2024 8:15 AM EDT Results Only [facility] [address] [place], [place] [address] [address] VgbeoSturgis Hospital LaboratoryStart: 05-16-2024 End: 02-07-8144Xhjyqcm evaluation of patient and yatmsr4005/16/2024 3:00 PM EDT Nurse Visit Hematology/Oncology [address] [place] [address] [phone] Abhinav Tafoya Nurse Hilario [address] [place] [address] ekgHematology/OncologyComment on above:ekgStart: 05-16-2024 End: 87-16-4927Izjkknm encounter mujefenvd48/08/2024 2:45 PM EDT Office Visit [facility] [address] [facility] [place] [address] [facility] LaboratoryComment on above:labStart: 05-11-2024 End: 91-84-7860PYCRTGBIAOFO TESTOSTERONE, ADULT MALEBIOAVAILABLE TESTOSTERONE, ADULT MALE Lab Routine Adrenal insufficiency (HCC) Acquired hypothyroidism Expected: 05/11/2024, Expires: 06/10/2024[facility] Work Phone: Comment on above:Expected: 05/11/2024, Expires: 06/10/2024Start: 05-11-2024 End: 21-41-7079Cdmkkkqp [Mass/volume] in Serum or PlasmaCORTISOL, SERUM Lab Routine Adrenal insufficiency (HCC) Acquired hypothyroidism Expected: 05/11/2024 , Expires: 06/10/2024leveland ClinicComment on above:Expected: 05/11/2024, Expires: 06/10/2024Start: 05-11-2024 End: 83-76-4173Ehrovkmemjf [Units/volume] in Serum or PlasmaFOLLICLE STIMULATING HORMONE Lab Routine Adrenal insufficiency (HCC) Acquired hypothyroidism Expecte d: 05/11/2024, Expires: 06/10/2024leveland ClinicComment on above:Expected: 05/11/2024, Expires: 06/10/2024Start: 05-11-2024 End: 45-92-4716CPZWGUG LIK GR FAC IINSULIN LIK GR FAC I Lab Routine Adrenal insufficiency (HCC) Acquired hypothyroidism Expected: 05/11/2024, Expires: 06/10/2024[facility] ClinicComment on above:Expected: 05/11/2024, Expires: 06/10/2024Start: 05-11-2024 End: 74-52-4680Tnieatdz [Units/volume] in Serum or PlasmaLUTEINIZING HORMONE Lab Routine Adrenal insufficiency (HCC) Acquired hypothyroidism Expected: 2023, Expires: 06/10/2024leveland ClinicComment on above:Expected: 05/11/2024, Expires: 06/10/2024Start: 05-11-2024 End: 35-79-5940Wbmpzlthy [Mass/volume] in Serum or PlasmaPROLACTIN Lab Routine Adrenal insufficiency (HCC) Acquired hypothyroidism Expected: 05/11/2024, Expi res: 06/10/2024[facility] ClinicComment on above:Expected: 05/11/2024, Expires: 06/10/2024Start: 05-11-2024 End: 99-40-7338Wxxludapy (T4) free [Mass/volume] in Serum or PlasmaT4 FREE/FREE THYROXINE Lab Routine Adrenal insufficiency (HCC) Acquired hypothyroidism Expected: 05/11/2024, Expires: 06/10/2024leveland ClinicComment on above: Expected: 05/11/2024, Expires: 06/10/2024Start: 05-10-2024 End: 84-87-6765KOXVJRF PEROXIDASE ANTIBODYTHYROID PEROXIDASE ANTIBODY Lab Routine Acquired hypothyroidism Expected: 05/10/2024, Expires: 08/09/2024 [facility] HospitalComment on above:Expected: 05/10/2024, Expires: 08/09/2024Start: 05-10-2024 End: 31-00-7617Txqrzvt encounter oemyewzgj53/02/2024 10:00 AM EDT Office Visit Endocrinology [address] [place] [address] Chuck Jones MD [address] [facility] [address] [place] [address] New Referral for Adrenal Insufficiency EndocrinologyComment on above:New Referral for Adrenal InsufficiencyStart: 05-08-2024 End: 61-35-8524Tsphsa-up encounterHematology/OncologyComment on above:6 week lab follow up and chemotx KeytrudaStart: 05-08-2024 End: 01-11-5101Ydcafio encounter kvlesixac08/31/2024 1:15 PM EDT Office Visit [facility] [address] [place] [address] 6 week lab follow up and chemotx KeytrudaNortSturgis Hospital LaboratoryComment on above:6 week lab follow up and chemotx KeytrudaStart: 05-07-2024 End: 06-55-3681RQV W Auto Differential panel - BloodCOMPLETE BLOOD COUNT AND DIFFERENTIAL Lab 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 Expected: 05/07/2024 (Approximate), Expires: 08/06/2024[facility] ClinicComment on above: Expected: 05/07/2024 (Approximate), Expires: 08/06/2024Start: 05-07-2024 End: 38-02-3096Sihrupbmnwliv metabolic 2000 panel - Serum or PlasmaCOMPREHENSIVE METABOLIC PANEL Lab 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 Expected: 05/07/2024 (Approximate), Expires: 08/06/2024[facility] Work Phone: Comment on above:Expected: 05/07/2024 (Approximate), Expires: 08/06/2024Start: 05-07-2024 End: 82-36-5400Zowfpuuljwn [Units/volume] in Serum or PlasmaTHYROID STIMULATING HORMONE Lab 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 Expected: 2023 (Approximate), Expires: 08/06/2024[facility] ClinicComment on above: Expected: 05/07/2024 (Approximate), Expires: 08/06/2024Start: 05-03-2024 End: 07-75-5492Uwjapiy encounter scvphbciw37/26/2024 7:45 AM EDT Appointment Radiology Pet CT [address] [facility] [place] [address] CT CAP W IV Radiology Pet CTComment on above:CT CAP W IVStart: 03-26-2024 End: 45-17-1106Jhhakipn [Mass/volume] in Serum or PlasmaWvumedicine Barnesville HospitalComment on above:Expected: 03/26/2024, Expires: 06/25/2024Start: 03-26-2024 End: 54-05-6688Lejizi-up encounterHematology/OncologyComment on above:6 week lab follow up and chemotx KeytrudaStart: 03-26-2024 End: 34-81-7290Msbchtj encounter khnenytpz84/18/2024 1:15 PM EDT Office Visit [facility] [address] [place] [address] 6 week lab follow up and chemotx KeytrudaNortSturgis Hospital LaboratoryComment on above:6 week lab follow up and chemotx KeytrudaStart: 03-12-2024 End: 01-55-8468GSX W Auto Differential panel - BloodCOMPLETE BLOOD COUNT AND DIFFERENTIAL Lab 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 Expected: 03/12/2024, Expires: 06/11/2024[facility] ClinicComment on above:Expected: 03/12/2024, Expires: 06/11/2024Start: 03-12-2024 End: 01-66-1256Rhfabhbbvbgye metabolic 2000 panel - Serum or PlasmaCOMPREHENSIVE METABOLIC PANEL Lab 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 Expected: 03/12/2024, Expires: 06/11/2024[facility] Work Phone: Comment on above:Expected: 03/12/2024, Expires: 06/11/2024Start: 03-12-2024 End: 09-18-5505Pmysosjazsf [Units/volume] in Serum or PlasmaTHYROID STIMULATING HORMONE Lab 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 Expected: 2023, Expires: 06/11/2024[facility] ClinicComment on above:Expected: 03/12/2024, Expires: 06/11/2024Start: 01-19-2024 End: 34-64-0598Ywghuwk encounter /12/2024 1:30 PM EDT [facility] [address] [facility] [address] [place] [address] Enoch Brennan MD [address] [facility] [address] [place] [address] NOMS JAVIER HOLBROOKtart: 01-02-2024 End: 46-55-4750RPJ W Auto Differential panel - BloodSalem [facility] Medical [facility] Work Phone: Comment on above:Expected: 01/02/2024 (Approximate), Expires: 04/02/2024Expected: 01/02/2024, Expires: 04/02/2024Start: 01-02-2024 End: 32-08-9318Rgyiwzpurmhlt metabolic 2000 panel - Serum or PlasmaSalem Regional Medical Center Work Phone: Comment on above:Expected: 01/02/2024 (Approximate), Expires: 04/02/2024Expected: 01/02/2024, Expires: 04/02/2024Start: 01-02-2024 End: 91-34-7445Exgabjkmqqt [Units/volume] in Serum or PlasmaSalem Regional Medical Center Work Phone: Comment on above:Expected: 01/02/2024 (Approximate), Expires: 04/02/2024Expected: 01/02/2024, Expires: 04/02/2024Start: 12-15-2023 End: 68-19-9466Gjfvnbj encounter grjokkuhs29/08/2024 2:20 PM EST Office Visit [facility] [place] [address] [facility] [address] [place] [address] Enoch Brennan MD [address] [facility] [address] [place] [address] [facility] ENT KINDRED HOSPITALSTEPHIENJtart: 12-05-2023 End: 26-73-5336VDX W Auto Differential panel - BloodCBC + DIFF Lab Routine Oropharnyx cancer (HCC) Expected: 12/05/2023 (Approximate), Expires: 03/05/2024 [facility] Work Phone: Comment on above:Expected: 12/05/2023 (Approximate), Expires: 03/05/2024Start: 12-05-2023 End: 83-27-7982Kzisvsltwrybc metabolic 2000 panel - Serum or PlasmaCOMP METABOLIC PANEL Lab Routine Oropharnyx cancer (HCC) Expected: 12/05/2023 (Approximate), Expires: 03/05/2024[facility] Work Phone: Comment on above:Expected: 12/05/2023 (Approximate), Expires: 03/05/2024Start: 12-05-2023 End: 88-52-8829Cv abdomen & pelvis w/contrast materialCT ABD/PEL W IVCON Radiology Routine Oropharnyx cancer (HCC) Expected: 12/05/2023 (Approximate), Expires: 12/13/2024[facility] Work Phone: Comment on above:Expected: 12/05/2023 (Approximate), Expires: 12/13/2024Start: 12-05-2023 End: 75-06-1955BX CHEST W IVCONCT CHEST W IVCON Radiology Routine Oropharnyx cancer (HCC) Expected: 12/05/2023 (Approximate), Expires: 12/13/2024[facility] Work Phone: Comment on above:Expected: 12/05/2023 (Approximate), Expires: 12/13/2024Start: 12-05-2023 End: 03-38-8164Bbxfngvyeui [Units/volume] in Serum or PlasmaTSH BLD Lab Routine Oropharnyx cancer (HCC) Expected: 12/05/2023 (Approximate), Expires: 03/05/2024 [facility] Work Phone: Comment on above:Expected: 12/05/2023 (Approximate), Expires: 03/05/2024Start: 11-17-2023 End: 58-13-0108Exjcioy encounter /09/2024 1:30 PM EST Office Visit [facility] [place] [address] [facility] [address] [place] [address] Enoch Brennan MD [address] [facility] [address] [place] [address] ArrivedNOMS ENT BACKUS HOSPITALomment on above:ArrivedStart: 10-17-2023 End: 97-00-0435NON W Auto Differential panel - BloodCBC + DIFF Lab Routine Oropharnyx cancer (HCC) Expected: 10/17/2023 (Approximate), Expires: 01/16/2024 [facility] Work Phone: Comment on above:Expected: 10/17/2023 (Approximate), Expires: 01/16/2024Start: 10-17-2023 End: 90-28-8295Kclkjnykzlfdj metabolic 2000 panel - Serum or PlasmaCOMP METABOLIC PANEL Lab Routine Oropharnyx cancer (HCC) Expected: 10/17/2023 (Approximate), Expires: 01/16/2024[facility] Work Phone: Comment on above:Expected: 10/17/2023 (Approximate), Expires: 01/16/2024Start: 10-17-2023 End: 82-14-0852Cnscqwdanwd [Units/volume] in Serum or PlasmaTSH BLD Lab Routine Oropharnyx cancer (HCC) Expected: 10/17/2023 (Approximate), Expires: 01/16/2024 [facility] Work Phone: Comment on above:Expected: 10/17/2023 (Approximate), Expires: 01/16/2024Start: 93-58-2033Awmkjujifp Health ScreeningBehavioral Health ScreeningParkwood Hospitaltart: 56-41-6632Tologimnuu AssessmentDepression AssessmentParkwood Hospitaltart: 08-03-2023 End: 08-96-8698Kh thorax w/o contrast materialCT CHEST WO IVCON Radiology Routine Pulmonary nodule Preoperative examination Expected: 08/03/2023,Expires: 09/01/2024[facility] Work Phone: Comment on above:Expected: 08/03/2023, Expires: 09/01/2024Start: 07-19-2023 End: 83-12-3045HWW W Auto Differential panel - BloodCBC + DIFF Lab Routine Oropharnyx cancer (HCC) Expected: 07/19/2023 (Approximate), Expires: 09/18/2023 [facility] Work Phone: Comment on above:Expected: 07/19/2023 (Approximate), Expires: 09/18/2023Start: 07-19-2023 End: 93-53-6325Haqhiwhdqvibi metabolic 2000 panel - Serum or PlasmaCOMP METABOLIC PANEL Lab Routine Oropharnyx cancer (HCC) Expected: 07/19/2023 (Approximate), Expires: 09/18/2023[facility] Work Phone: Comment on above:Expected: 07/19/2023 (Approximate), Expires: 09/18/2023Start: 07-19-2023 End: 22-53-9883Aa thorax w/o contrast materialCT CHEST WO IVCON Radiology Routine Oropharnyx cancer (HCC) Expected: 07/19/2023 (Approximate), Expires: 05/17/2024[facility] Work Phone: Comment on above:Expected: 07/19/2023 (Approximate), Expires: 05/17/2024Start: 56-15-2566Vhmizddvp vaccinationParkwood Hospitaltart: 58-30-0104RH Prostate WO and W contrast [facility] Start: 19-46-6171MM prostate wo/w conMR prostate wo/w [facility]: 03-31-2023 End: 53-22-7359CIK W Auto Differential panel - BloodCBC + DIFF Lab Routine Oropharnyx cancer (HCC) Expected: 03/31/2023 (Approximate), Expires: 05/31/2023 [facility] Work Phone: Comment on above:Expected: 03/31/2023 (Approximate), Expires: 05/31/2023Start: 03-31-2023 End: 07-52-5110Bknvjqxeektxb metabolic 2000 panel - Serum or PlasmaCOMP METABOLIC PANEL Lab Routine Oropharnyx cancer (HCC) Expected: 03/31/2023 (Approximate), Expires: 05/31/2023[facility] Work Phone: Comment on above:Expected: 03/31/2023 (Approximate), Expires: 05/31/2023Start: 03-31-2023 End: 64-14-8091IU PET/CT SKULL-THIGH SUBSEQUENTNM PET/CT SKULL-THIGH SUBSEQUENT Radiology Routine Oropharnyx cancer (HCC) Expected: 03/31/2023 (Approximate), Expires: 02/19/2024[facility] Work Phone: Comment on above:Expected: 03/31/2023 (Approximate), Expires: 02/19/2024Start: 01-13-2023 End: 82-94-1557Gmqpy metabolic 2000 panel - Serum or PlasmaBASIC METABOLIC PNL Lab Routine 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) Expected: 01/13/2023, Exp ires: 03/15/2023[facility] Work Phone: Comment on above:Expected: 01/13/2023, Expires: 03/15/2023Start: 01-13-2023 End: 60-78-1300XAY W Auto Differential panel - BloodCBC + DIFF Lab Routine 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) Expected: 01/13/2023, Expires: [facility] Work Phone: Comment on above:Expected: 01/13/2023, Expires: 03/15/2023Start: 01-13-2023 End: 07-18-1561Lzvklkfovijqf metabolic 2000 panel - Serum or PlasmaCOMP METABOLIC PANEL Lab Routine 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) Expected: 01/13/2023, Expires: 03/15/2023[facility] Work Phone: Comment on above:Expected: 01/13/2023, Expires: 03/15/2023Start: 01-13-2023 End: 62-76-1381Vtfdmdkce [Mass/volume] in Serum or PlasmaMAGNESIUM BLD Lab Routine 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) Expected: 01/13/2023, Expires:03/15/2023[facility] Work Phone: Comment on above:Expected: 01/13/2023, Expires: 03/15/2023Start: 12-28-2022 End: 74-35-3599MWK W Auto Differential panel - BloodCBC + DIFF Lab Routine Oropharnyx cancer (HCC) Expected: 12/28/2022 (Approximate), Expires: 02/27/2023 [facility] Work Phone: Comment on above:Expected: 12/28/2022 (Approximate), Expires: 02/27/2023Start: 12-28-2022 End: 12-07-8379Upiqolgnjfzbb metabolic 2000 panel - Serum or PlasmaCOMP METABOLIC PANEL Lab Routine Oropharnyx cancer (HCC) Expected: 12/28/2022 (Approximate), Expires: 02/27/2023[facility] Work Phone: Comment on above:Expected: 12/28/2022 (Approximate), Expires: 02/27/2023Start: 12-28-2022 End: 97-03-1011Fufigbklx [Mass/volume] in Serum or PlasmaMAGNESIUM BLD Lab Routine Oropharnyx cancer (HCC) Expected: 12/28/2022 (Approximate), Expires: 02/27/2023[facility] Work Phone: Comment on above:Expected: 12/28/2022 (Approximate), Expires: 02/27/2023Start: 12-14-2022 End: 35-06-8685XYS W Auto Differential panel - BloodCBC + DIFF Lab Routine Oropharnyx cancer (HCC) Esophagitis Expected: 12/14/2022, Expires: 02/13/2023 [facility] Work Phone: Comment on above:Expected: 12/14/2022, Expires: 02/13/2023Start: 12-14-2022 End: 39-91-0527Nfwwwskzahfic metabolic 2000 panel - Serum or PlasmaCOMP METABOLIC PANEL Lab Routine Oropharnyx cancer (HCC) Esophagitis Expected: 12/14/2022, Expires:02/13/2023[facility] Work Phone: Comment on above:Expected: 12/14/2022, Expires: 02/13/2023Start: 12-14-2022 End: 52-33-1162Nackhcdyr [Mass/volume] in Serum or PlasmaMAGNESIUM BLD Lab Routine Oropharnyx cancer (HCC) Esophagitis Expected: 12/14/2022, Expires: 02/13/2023[facility] Work Phone: Comment on above:Expected: 12/14/2022, Expires: 02/13/2023Start: 12-07-2022 End: 85-41-9382ZDD W Auto Differential panel - BloodCBC + DIFF Lab Routine Oropharnyx cancer (HCC) Expected: 12/07/2022, Expires: 02/06/2023[facility] Work Phone: Comment on above:Expected: 12/07/2022, Expires: 02/06/2023Start: 12-07-2022 End: 47-76-6678Wgucphvayacal metabolic 2000 panel - Serum or PlasmaCOMP METABOLIC PANEL Lab Routine Oropharnyx cancer (HCC) Expected: 12/07/2022, Expires: 02/06/2023[facility] Work Phone: Comment on above:Expected: 12/07/2022, Expires: 02/06/2023Start: 12-07-2022 End: 90-22-3990Zvidtodpw [Mass/volume] in Serum or PlasmaMAGNESIUM BLD Lab Routine Oropharnyx cancer (HCC) Expected: 12/07/2022, Expires: 02/06/2023 [facility] Work Phone: Comment on above:Expected: 12/07/2022, Expires: 02/06/2023Start: 11-15-2022 End: 47-80-6030MRT W Auto Differential panel - BloodCBC + DIFF Lab Routine Oropharnyx cancer (HCC) Expected: 11/15/2022, Expires: 01/15/2023[facility] Work Phone: Comment on above:Expected: 11/15/2022, Expires: 01/15/2023Start: 11-15-2022 End: 68-46-9268Yedpawavqlyaa metabolic 2000 panel - Serum or PlasmaCOMP METABOLIC PANEL Lab Routine Oropharnyx cancer (HCC) Expected: 11/15/2022, Expires: 01/15/2023[facility] Work Phone: Comment on above:Expected: 11/15/2022, Expires: 01/15/2023Start: 11-15-2022 End: 50-34-2305Dqratdeuf [Mass/volume] in Serum or PlasmaMAGNESIUM BLD Lab Routine Oropharnyx cancer (HCC) Expected: 11/15/2022, Expires: 01/15/2023 [facility] Work Phone: Comment on above:Expected: 11/15/2022, Expires: 01/15/2023Start: 34-93-0521JYRZFXCTIP ASSESSMENTDEPRESSION ASSESSMENTParkwood Hospitaltart: 69-29-7779Ztkdmmjti vaccinationINFLUENZA (#1)[facility]: 08-73-6405XTXGD-19 VACCINE (3 - Booster for Pfizer series)COVID-19 VACCINE (3 - Booster for Pfizer series)[facility]: 04-41-1342OJGRQ-19 VACCINE (3 - Pfizer risk series)COVID-19 VACCINE (3 - Pfizer risk series)[facility] Start: 63-33-7555LLSZPLXZ CANCER SCREENING DISCUSSIONPROSTATE CANCER SCREENING DISCUSSIONParkwood Hospitaltart: 90-05-5329Fnfbpsbdv vaccinationLUNG CANCER SCREENINGParkwood Hospitaltart: 49-70-0516FZMGACTT VACCINE (1 of 2)SHINGRIX VACCINE (1 of 2)[facility]: 60-49-5069PQQYFHSSY (FIT-DNA)COLOGUARD (FIT-DNA)[facility]: 17-79-0610VordnmoairbWFQVTRWWFULSpqlzthze Clinic Start: 47-65-1247JMDAXGMHFM CANCER SCREENINGCOLORECTAL CANCER SCREENINGParkwood Hospitaltart: 23-70-8754ST COLONOGRAPHYCT COLONOGRAPHYParkwood Hospitaltart: 58-90-8276VQRWBGTE SCREENDIABETES SCREENParkwood Hospitaltart: 46-19-5343OGNNI OCCULT BLOODFECAL OCCULT BLOODParkwood Hospitaltart: 41-12-6759Raroesfoq for malignant neoplasm of colonParkwood Hospitaltart: 49-46-7506MMFGVSUMHJTOF SIGMOIDOSCOPYParkwood Hospitaltart: 06-08-8044Seslr 1996 panel - Serum or Plasma Lipid ScreeningParkwood Hospitaltart: 14-98-9227Lsvxf panelLipid Screening [facility]: 20-78-5220ZJFBP SCREENLIPID SCREENParkwood Hospitaltart: 71-25-9192Zkssbmfur B Vaccine (1 of 3 - 19+ 3-dose series)Hepatitis B Vaccine (1 of 3 - 19+ 3-dose series)[facility]: 98-54-3538Xhsqzpohnpxz Vaccine: 50+ (1 of 2 - PCV)Pneumococcal Vaccine: 50+ (1 of 2 - PCV)[facility] Start: 49-24-8079IHOLHPDD VACCINE (1 of 2)SHINGRIX VACCINE (1 of 2)[facility]: 01-41-7237Wblnb microalbumin profileParkwood Hospitaltart: 91-71-0905Mxlnef PCP Team Chronic Disease VisitAnnual PCP Team Chronic Disease VisitCleSelect Medical Special[facility]art: 48-49-2511Xhsvbrk ScreeningAnxiety Screening [facility]: 42-52-1201VC Controlled (<130/80)BP Controlled (<130/80) [facility]: 07-83-1636Rmotobjspv ScreeningDepression Screening [facility]: 26-91-7401RUOCHUQSZ C SCREENINGHEPATITIS C SCREENING [facility]: 97-47-2578Iramthkvy C screeningHepatitis C Screening [facility]: 26-30-9572TTZ SCREENINGHIV SCREENINGWvumedicine [facility] Start: 27-04-3148MMU screeningHIV ScreeningParkwood Hospitaltart: 1971 PNEUMOCOCCAL (1 - PCV)PNEUMOCOCCAL (1 - PCV)[facility]: 1971 Pneumococcal vaccinationParkwood Hospitaltart: 73-45-3838HSFEAOSLC B (1 of 3 - 3-dose series)HEPATITIS B (1 of 3 - 3-dose series)[facility]: 93-71-5145Bjfbaejes B Vaccine (1 of 3 - 3-dose series)Hepatitis B Vaccine (1 of 3 - 3-dose series)[facility]: 02-39-4604Plzkqqbpf for malignant neoplasm of colonNOMS [facility] ebus guided sampl 1/2 node station/strux BRONCHOSCOPY,RIGID/FLEXIBLE W/ FLUORO,W/ENDOBRONCHIAL ULTRASOUND (EBUS) GUIDED TRANSTRACHEAL/ TRANSBRONCHIAL ASPIRATION/BIOPSY,1 OR 2 MEDIASTINAL AND/OR HILAR LYMPH NODE STATIONS/STRUCTURES [facility] End: 29-58-0370WKQ W Auto Differential panel - BloodCOMPLETE BLOOD COUNT AND DIFFERENTIAL Lab Routine 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) Every 6 weeks for 9 Occurrences starting 06/17/2024 until 5[facility] Comment on above:Every 6 weeks for 9 Occurrences starting 06/17/2024 until 06/17/2025 End: 04-90-1566Csgiockinitqa metabolic 2000 panel - Serum or PlasmaCOMPREHENSIVE METABOLIC PANEL Lab Routine 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) Every 6 weeks for 9 Occurrences starting 06/17/2024 until 5[facility] Work Phone: Comment on above:Every 6 weeks for 9 Occurrences starting 06/17/2024 until 06/17/2025 End: 30-38-3192Pswzyqox [Mass/volume] in Serum or PlasmaCORTISOL, SERUM Lab Routine Adrenal insufficiency (HCC) 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) E very 6 weeks for 9 Occurrences starting 06/17/2024 until 5[facility]Comment [facility]:Every 6 weeks for 9 Occurrences starting 06/17/2024 until 5Cortisol [Mass/volume] in Serum or PlasmaCORTISOL, SERUM Lab Routine Adrenal insufficiency (HCC) 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) 0 01/24/2025 1:03 PM EDTCleveland ClinicCortisol [Mass/volume] in Serum or Plasma CORTISOL, SERUM Lab Routine Adrenal insufficiency (HCC) 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) 04/18/2025 1:06 PM EDTCleveland Clinic End: 79-94-1588ZZ Abdomen and Pelvis W contrast IVCT ABD/PEL W IVCON Radiology 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 Thunderclap headache 1 Occurrences starting 03/26/2024 until 5[facility] ClinicComment on above:1 Occurrences starting 03/26/2024 until 04/25/2025 End: 93-97-8817OD Abdomen W contrast IVCT ABDOMEN W IVCON Radiology 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) 1 Occurrences starting 10/31/2024 until 6[facility] ClinicComment on above:1 Occurrences starting 10/31/2024 until 11/30/2025 End: 64-35-2789WA Chest W contrast IVCT CHEST W IVCON Radiology 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 Thunderclap headache1 Occurrences starting 03/26/2024 until 04/25/2025[facility] HospitalComment on above:1 Occurrences starting 03/26/2024 until 04/25/2025 End: 02-95-0303XJ Chest W contrast IVCT CHEST W IVCON Radiology 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) 1 Occurrences starting 10/31/[address] [place] [address] Work Phone: Comment on above:1 Occurrences starting 10/31/2024 until 11/30/2025 End: 00-49-2429TT Chest W contrast IVCT CHEST W IVCON Radiology Routine Malignant neoplasm of unspecified part of unspecified bronchus or lung (HCC) 1 Occurrences starting 02/20/[address] [place] [address] Work Phone: Comment on above:1 Occurrences starting 02/20/2025 until 6CT Chest W contrast IVCT CHEST W IVCON Radiology Routine Malignant neoplasm of unspecified part of unspecified bronchus or lung (HCC) 05/29/2025 8:27 AM [facility] Work Phone: End: 72-10-7668WV Chest WO contrastCT CHEST WO IVCON Radiology Routine Neoplasm of lung 1 Occurrences starting 07/05/[address] [place] [address] Work Phone: Comment on above:1 Occurrences starting 07/05/2024 until 08/04/2025 End: 27-26-2054JI Chest WO contrastCT CHEST WO IVCON Radiology Routine Malignant neoplasm of unspecified part of unspecified bronchus or lung (HCC) 1 Occurrences starting 06/05/[address] [place] [address] Work Phone: Comment on above:1 Occurrences starting 06/05/2025 until 07/05/2026 Guidance for radiation treatment of Unspecified body regionCT SIM PLANNING RADIATION ONCOLOGY Radiology Routine 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) Ordered: [address] [place] [address] Work Phone: Comment on above:Ordered: 06/14/2024T SIM PLANNING RADIATION ONCOLOGYCT SIM PLANNING RADIATION ONCOLOGY Radiology Routine Oropharnyx cancer (HCC) Ordered: 11/09/2022[facility] Work Phone: Comment on above:Ordered: 11/09/2022T SIM PLANNING RADIATION ONCOLOGYCT SIM PLANNING RADIATION ONCOLOGY Radiology Routine Oropharnyx cancer (HCC) Ordered: 11/14/2022[facility] Work Phone: Comment on above:Ordered: 11/14/2022YTOLOGY NON-DIESEL INSTRUCTOR [facility] Work Phone: Comment on above:Release Upon Ordering for 1 Occurrences starting 08/30/2023, 1 completed End: 51-51-0010EHY COMPLETEECG COMPLETE ECG STAT Preoperative examination 1 Occurrences starting 08/03/2023 until 08/03/2024[facility] Work Phone: Comment on above:1 Occurrences starting 08/03/2023 until 08/03/2024 End: 08-04-2163KNZ COMPLETEECG COMPLETE ECG Routine Adenopathy 1 Occurrences starting 05/13/[address] [place] [address] Work Phone: Comment on above:1 Occurrences starting 05/13/2024 until 05/13/2025 End: 51-70-2048Ksmpwzhqsh A1c in BloodHEMOGLOBIN A1C Lab Routine Adrenal insufficiency (HCC) Malaise and fatigue 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) Every 6 weeks for 9 Occurrences starting 06/17/2024 until 06/17/2025 [facility] HospitalComment [facility] above:Every 6 weeks for 9 Occurrences starting 06/17/2024 until 06/17/2025Hemoglobin A1c in BloodHEMOGLOBIN A1C Lab Routine Adrenal insufficiency (HCC) Malaise and fatigue 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) 01/24/2025 1:03 PM [facility] Work Phone: Hemoglobin A1c in BloodHEMOGLOBIN A1C Lab Routine Adrenal insufficiency (HCC) Malaise and fatigue 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) 04/18/2025 1:06 PM EDTCMiddletown Hospital Work Phone: End: 53-39-0302NCCD DIFFUSION CAPACITY (DLCO)LUNG DIFFUSION CAPACITY (DLCO) PFT 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) 1 Occurrences starting 06/11/2024 until 5COhio[facility] O'[facility]leness HospitalComment on above:1 Occurrences starting 06/11/2024 until 07/11/2025LUNG DIFFUSION CAPACITY (DLCO)LUNG DIFFUSION CAPACITY (DLCO) PFT 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) 06/28/2024 11:59 AM EDT [facility] Work Phone: End: 15-79-9847IP Brain WO and W contrast IVMRI BRAIN WO/W IVCON Radiology Routine Thunderclap headache 1 Occurrences starting 03/26/2024 until04/25/2025 [facility] HospitalComment on above:1 Occurrences starting 03/26/2024 until 04/25/2025 End: 46-79-6516AMP PROSTATE WO/W IVCONMRI PROSTATE WO/W IVCON Radiology Routine Encounter for observation for other suspected diseases and conditions ruled out 1 Occurrences starting 04/18/[address] [place] [address] Work Phone: Comment on above:1 Occurrences starting 04/18/2023 until 05/17/2024 End: 71-72-8397Umm imaging ct attenuation skull base mid-thighNM PET/CT SKULL- THIGH INITIAL Radiology Routine Oropharnyx cancer (HCC) 1 Occurrences starting 10/27/[address] [place] [address] Work Phone: Comment on above:1 Occurrences starting 10/27/2022 until 11/26/2023 End: 86-11-6868Hyq imaging ct attenuation skull base mid-thighNM PET/CT SKULL- THIGH INITIAL Radiology Routine Neoplasm of lung 1 Occurrences starting 09/06/[address] [place] [address] Work Phone: Comment on above:1 Occurrences starting 09/06/2023 until 10/05/2024 End: 64-25-9877RPIASSKQQA BASELINE ONLYSPIROMETRY BASELINE ONLY PFT 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) 1 Occurrences starting 06/11/2024 until 07/11/2025[facility] Work Phone: Comment on above:1 Occurrences starting 06/11/2024 until 07/11/2025SPIROMETRY BASELINE ONLYSPIROMETRY BASELINE ONLY PFT 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) 06/28/2024 11:59 AM EDTCMiddletown Hospital Work Phone: [facility] Work Phone: Comment on above:Release Upon Ordering for 1 Occurrences starting 08/30/2023, 1 completed End: 98-27-3885Cxyaxatridx [Units/volume] in Serum or PlasmaTHYROID STIMULATING HORMONE Lab Routine Malaise and fatigue Malignant neoplasm of base of tongue (HC C) Every 6 weeks for 9 Occurrences starting 06/17/2024 until 06/17/2025[facility] HospitalComment on above:Every 6 weeks for 9 Occurrences starting 06/17/2024 until 06/17/2025Thyrotropin [Units/volume] in Serum or PlasmaTHYROID STIMULATING HORMONE Lab Routine Malaise and fatigue 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) 01/24/2025 1:03 PM EDTCprom[facility] ClinicThyrotropin [Units/volume] in Serum or PlasmaTHYROID STIMULATING HORMONE Lab Routine Malaise and fatigue 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 on above:Result Comment: 3 bnwcnanv63-14-4127VCCC-YrR-5 (COVID- 19) mRNA BNT-162b2 vaxKathy Lue [facility] Hospitaly10-29-2021SARS-CoV-2 (COVID-19) mRNA BNT-162b2 vaxKathy Lue [facility] on above:Result Comment: 2023-03-17: [id number] Payers DatePayer CategoryPayerPolicy [id number] Care HMO (unspecified)[id number] Health [id number] Health [id number]-ytx [id number] 1.2.840.714853.1.13.159.2.7.3.843[id number] 2.16.840.1.444667.3.57[id number] 2.16.840.1.794026.3.57[id number] 2.16840.1.383319.3.57[id number] 2.0.1.391387.3.57[id number] 2.840.1.243758.3.57[id number] 2.0.1.440554.3.57[id number] 2..1.674543.3.57[id number] 2..1.804028.3.579.[id number] 2.840.1.551460.3.57[id number] 2.0.1.346852.3.57[id number] 2.0.1.960286.3.57[id number] 2.840.1.014828.3.57[id number] 2.840.1.053881.3.579.2.347962-65-9313IiqnxoaSTI412E84237ZyrbbywNxdyluazk CHAPARRO [id number] [id number] .16.840.1.73[id number] .16.840.1.148203.3.579.2.531 Social History DateTypeDetailFacilityStart: 56-35-9569Ldfxdgr smoking statusNever smoked tobacco (finding)[facility]: 09-09-2012 End: 87-53-2900Jcpgvol smoking statusNeverExec[facility] of [facility]: 04-18-2023 End: 83-32-8340Efa Assigned At [facility] Start: 10-27-2022 End: 26-44-8194Oydszae smoking status NHISEx-smokerParkwood Hospitaltart: 10-13-1987 End: 76-38-8059Epjlgca of tobacco useCurrent smokerParkwood Hospitaltart: 10-13-1987 End: 37-74-7257Khaikjb of tobacco useCigarette SmokerParkwood Hospitaltart: 10-27-2022 End: 33-32-1095Ivrqhvuvwj smoked current (pack per day) - Ubbnhixo0Nlxndrqav ClinicStart: 10-27-2022 End: 22-82-5852Myhtjos use and exposureFormer smokeless tobacco userParkwood Hospitaltart: 10-27-2022 End: 65-93-9449Befczhq intakeCurrent drinker of alcohol (finding)[facility]: 41-04-7714Zwswzxh CommentoccParkwood Hospitaltart: 18-00-1999Fxs Assigned At [facility] ClinicHistory of tobacco usePassive smoker [facility]: 35-58-9954Nmqfxd identityIdentifies as male gender (finding)[facility]: 04-82-5163Qdfgjm orientationHeterosexual (finding)[facility] End: 59-28-7090Zuxncxe of tobacco useSnuff UserNOMS HealthcareHow many standard drinks containing alcohol do you have on a typical day?1 or 2NOMS HealthcareHow often do you have 6 or more drinks on 1 occasion?Less than monthlyNOMS HealthcareStart: 17-78-3794Aaghrbd Commentcaffeine intake: 3-4 cups per dayNOMS HealthcareSexual OrientationExec[facility] Start: 94-71-7254HofNchb (finding)[facility] Functional Status EiqzVjxfuaiogsLfftpnOiqognqi34-40-2702Pobekwhdin StatusN/AExec[facility]09-29-2023Functional StatusYesExec[facility]08-31-2023Functional StatusN/A [facility]09-02-2022Functional StatusN/AExec[facility] Clinical Notes 06-10-2022 to 08-01-2025 Note Date & FjawQhezCxjfcfos19-46-5208 History of Present illness Narrative* Enoch Brennan MD - 08/01/2025 1:00 PM EDT Subjective Patient ID: Caitlin Elmore is a 60 y.o. 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 Metastatic malignant neoplasm (HCC) 07/29/2025 Erectile dysfunction 08/01/2025 Resolved Ambulatory Problems Diagnosis Date Noted Mass [...] loss) 1973 Nocturia Personal history of irradiation [id number] Tongue cancer (HCC) Surgical History[2] Allergies[3] Medications Ordered Prior to Encounter[4] Objective Last Recorded Vitals Vitals: 08/01/25 1302 BP: 151/85 Pulse: 67 ENT Physical Exam Constitutional Appearance: patient appears well-developed and well-nourished, Oral Cavity/Oropharynx OC/OP comments: OC/OP/IDL - no mass or ulcer Neck Neck comments: Supple, FROM, No LAD Assessment/Plan Diagnoses and all orders for this visit: Squamous cell cancer of tongue (HCC) MEGHNA today. Continue quarterly appts till 10/2026 [1] Family History Problem Relation Name Age of Onset Hyperlipidemia Mother Alanis Elmore Hyperlipidemia Father Jonnathan Elmore Hypertension Father Jonnathan Elmore Cancer Father Jonnathan Elmore Thyroid cancer Sister Sister Cancer Sister Sister [2] Past Surgical History: Procedure Laterality Date ADENOIDECTOMY 1974 LARYNGOSCOPY 10/18/2022 w/ biopsy, Timmis MASTOID SURGERY TONSILLECTOMY 1973 TYMPANOSTOMY TUBE PLACEMENT 1973 [3] No Known Allergies [4] Current Outpatient Medications on File Prior to [...] facility-administered medications on file prior to visit. documented in this encounterKindred HospitalGtwygriyyh77-41-2681 NoteHNO ID: [id number] Author: GABRIELLA METCALF RN Service: ? Author Type: Registered Nurse Type: Progress Notes Filed: 07/11/2025 15:33 Note Text: No CBC ordered today. Ok to proceed without CBC per Dr. Medina. Will draw with next treatment. Nurse notified. Gabriella [facility]calf [facility]2025 Hospital Discharge instructions Patient Education 06/27/2025 08:58:19 Cystoscopy Cystoscopy Cystoscopy is a procedure that is used to help diagnose and sometimes treat conditions that affect the lower urinary tract. The lower urinary tract includes the bladder and the urethra. The urethra is the tube that drains urine from the bladder. Cystoscopy is done using a thin, tube-shaped instrument with a light and camera at the end (cystoscope). The cystoscope may be hard or flexible, depending on the goal of the procedure. The cystoscope is inserted through the urethra, into the bladder. Cystoscopy may be recommended if you have: Urinary tract infections that keep coming back. Blood in the urine (hematuria). An inability to control when you urinate (urinary incontinence) or an overactive bladder. Unusual cells found in a urine sample. A blockage in the urethra, such as a urinary stone. Painful urination. An abnormality in the bladder found during an intravenous pyelogram (IVP) or CT scan. Cystoscopy may also be done to remove a sample of tissue to be examined under a microscope (biopsy). Tell a health care provider about: Any allergies you have. All medicines you are taking, including vitamins, herbs, eye drops, creams, and bnzx-len-iebjbfj medicines. Any problems you or family members have had with anesthetic medicines. Any blood disorders you have. Any surgeries you have had. Any medical conditions you have. Whether you are or may be . What are the risks? Generally, this is a safe procedure. However, problems may occur, including: Infection. Bleeding. Allergic reactions to medicines. Damage to other structures or organs. What happens before the procedure? Medicines Ask your health care provider about: Changing or stopping your regular medicines. This is especially important if you are taking diabetes medicines or blood thinners. Taking medicines such as aspirin and ibuprofen. These medicines can thin your blood. Do not take these medicines unless your health care provider tells you to take them. Taking atlo-fit-ponkxhr medicines, vitamins, herbs, and supplements. Tests You may have an exam or testing, such as: X-rays of the bladder, urethra, or kidneys. CT scan of the abdomen or pelvis. Urine tests to check for signs of infection. General instructions Follow instructions from your health care provider about eating or drinking restrictions. Ask your health care provider what steps will be taken to help prevent infection. These steps may include: ?Washing skin with a germ-killing soap. ?Taking antibiotic medicine. Plan to have a responsible adult take you home from the hospital or clinic. What happens during the procedure? You will be given one or more of the following: ?A medicine to help you relax (sedative). ?A medicine to numb the area (local anesthetic). The area around the opening of your urethra will be cleaned. The cystoscope will be passed through your urethra into your bladder. Germ-free (sterile) fluid will flow through the cystoscope to fill your bladder. The fluid will stretch your bladder so that your health care provider can clearly examine your bladder pettit. Your doctor will look at the urethra and bladder. Your doctor may take a biopsy or remove stones. The cystoscope will be removed, and your bladder will be emptied. The procedure may vary among health care providers and hospitals. What can I expect after the procedure? After the procedure, it is common to have: Some soreness or pain in your abdomen and urethra. Urinary symptoms. These include: ?Mild pain or burning when you urinate. Pain should stop within a few minutes after you urinate. This may last for up to 1 week. ?A small amount of blood in your urine for several days. ?Feeling like you need to urinate but producing only a small amount of urine. Follow these instructions at home: Medicines Take egqq-kig-lefbnaa and prescription medicines only as told by your health care provider. If you were prescribed an antibiotic medicine, take it as told by your health care provider. Do notstop taking the antibiotic even if you start to feel better. General instructions Return to your normal activities as told by your health care provider. Ask your health care provider what activities are safe for you. If you were given a sedative during the procedure, it can affect you for several hours. Do not drive or operate machinery until your health care provider says that it is safe. Watch for any blood in your urine. If the amount of blood in your urine increases, call your healthcare provider. Follow instructions from your health care provider about eating or drinking restrictions. If a tissue sample was removed for testing (biopsy) during your procedure, it is up to you to get your test results. Ask your health care provider, or the department that is doing the test, when yourresults will be ready. Drink enough fluid to keep your urine pale yellow. Keep all follow-up visits. This is important. Contact a health care provider if: You have pain that gets worse or does not get better with medicine, especially pain when you urinate. You have trouble urinating. You have more blood in your urine. Get help right away if: You have blood clots in your urine. You have abdominal pain. You have a fever or chills. You are unable to urinate. Summary Cystoscopy is a procedure that is used to help diagnose and sometimes treat conditions that affect the lower urinary tract. Cystoscopy is done using a thin, tube-shaped instrument with a light and camera at the end. After the procedure, it is common to have some soreness or pain in your abdomen and urethra. Watch for any blood in your urine. If the amount of blood in your urine increases, call your healthcare provider. If you were prescribed an antibiotic medicine, take it as told by your health care provider. Do notstop taking the antibiotic even if you start to feel better. This information is not intended to replace advice given to you by your health care provider. Make sure you discuss any questions you have with your health care provider. Document Revised: 06/08/2022 Document Reviewed: 05/07/2021 [employer] Patient Education 2023 [employer]. Follow Up Care 06/28/2024 15:33:20 With:Rafa KELLEY, RENU Ibarra, URO Address: When: Unknown [facility] Servando 09-19-2025 NotePatient Education Urology Cystoscopy Cystoscopy is a procedure that is used to help diagnose and sometimes treat conditions that affect the lower urinary tract. The lower urinary tract includes the bladder and the urethra. The urethra is the tube that drains urine from the bladder. Cystoscopy is done using a thin, tube-shaped instrument with a light and camera at the end (cystoscope). The cystoscope may be hard or flexible, depending on the goal of the procedure. The cystoscope is inserted through the urethra, into the bladder. Cystoscopy may be recommended if you have: ??? Urinary tract infections that keep coming back. ??? Blood in the urine (hematuria). ??? An inability to control when you urinate (urinary incontinence) or an overactive bladder. ??? Unusual cells found in a urine sample. ??? A blockage in the urethra, such as a urinary stone. ??? Painful urination. ??? An abnormality in the bladder found during an intravenous pyelogram (IVP) or CT scan. Cystoscopy may also be done to remove a sample of tissue to be examined under a microscope (biopsy). Tell a health care provider about: ??? Any allergies you have. ??? All medicines you are taking, including vitamins, herbs, eye drops, creams, and znnt-vkr-biiwyru medicines. ??? Any problems you or family members have had with anesthetic medicines. ??? Any blood disorders you have. ??? Any surgeries you have had. ??? Any medical conditions you have. ??? Whether you are or may be . What are the risks? Generally, this is a safe procedure. However, problems may occur, including: ??? Infection. ??? Bleeding. ??? Allergic reactions to medicines. ??? Damage to other structures or organs. What happens before the procedure? Medicines Ask your health care provider about: ??? Changing or stopping your regular medicines. This is especially important if you are taking diabetes medicines or blood thinners. ??? Taking medicines such as aspirin and ibuprofen. These medicines can thin your blood. Do not take these medicines unless your health care provider tells you to take them. ??? Taking dagd-bji-kwonuja medicines, vitamins, herbs, and supplements. Tests You may have an exam or testing, such as: ??? X-rays of the bladder, urethra, or kidneys. ??? CT scan of the abdomen or pelvis. ??? Urine tests to check for signs of infection. General instructions ??? Follow instructions from your health care provider about eating or drinking restrictions. ??? Ask your health care provider what steps will be taken to help prevent infection. These steps may include: ? Washing skin with a germ-killing soap. ? Taking antibiotic medicine. ??? Plan to have a responsible adult take you home from the hospital or clinic. What happens during the procedure? You will be given one or more of the following: ? A medicine to help you relax (sedative). ? A medicine to numb the area (local anesthetic). ??? The area around the opening of your urethra will be cleaned. ??? The cystoscope will be passed through your urethra into your bladder. ??? Germ-free (sterile) fluid will flow through the cystoscope to fill your bladder. The fluid willstretch your bladder so that your health care provider can clearly examine your bladder pettit. ??? Your doctor will look at the urethra and bladder. Your doctor may take a biopsy or remove stones. ??? The cystoscope will be removed, and your bladder will be emptied. The procedure may vary among health care providers and hospitals. What can I expect after the procedure? After the procedure, it is common to have: ??? Some soreness or pain in your abdomen and urethra. ??? Urinary symptoms. These include: ? Mild pain or burning when you urinate. Pain should stop within a few minutes after you urinate. This may last for up to 1 week. ? A small amount of blood in your urine for several days. ? Feeling like you need to urinate but producing only a small amount of urine. Follow these instructions at home: Medicines ??? Take tnef-lna-stquysk and prescription medicines only as told by your health care provider. ??? If you were prescribed an antibiotic medicine, take it as told by your health care provider. Donot stop taking the antibiotic even if you start to feel better. General instructions ??? Return to your normal activities as told by your health care provider. Ask your health care provider what activities are safe for you. ??? If you were given a sedative during the procedure, it can affect you for several hours. Do not drive or operate machinery until your health care provider says that it is safe. ??? Watch for any blood in your urine. If the amount of blood in your urine increases, call your health care provider. ??? Follow instructions from your health care provider about eating or drinking restrictions. ??? If a tissue sample was removed for testing (biopsy) during your (more content not included)...[facility]08-28-2025 History of Present illness Narrative* Tayla Ellsworth MD - 06/05/2025 11:30 AM EDT Radiation Oncology - Follow Up Note PATIENT NAME: Caitlin Elmore PATIENT DIAGNOSIS: Oligoprogressive 2 RUL lung metastases, from previously treated H&N cancer. S/p lungSBRT 07/05/2024 Single isocenter for 2 lung lesions: 3400 cGy in 1 fx ONCOLOGIC HX: 1. HPV positive BOT SCC Treatment History: 1. Concurrent Cisplatin and XRT 11/21/2021- XRTY completed 01/06/2023 and last dose of chemo 12/21/2022 (Total [place] dose= 200 mg/m2) 2. Recurrence in the Lung Biopsy proven 08/2023: PDL-1 insufficient and KRAS G12A, PIK3CA (TargetedOncology only due to sample) 3. 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 Planning on taking trip to [facility] over the summer. May visit [facility] later this month as his daughter is [...] findings Tayla Ellsworth MD cc: Julian Burton [address] [place] [address] Lakia Medina MD Hematology/Oncology * Maddy Quach LPN - 06/05/2025 11:19 AM EDT Additional intake questions: Has the patient had fever, nausea, vomiting, diarrhea, constipation, fatigue for > 1 week? No Does the patient have a decreased appetite? No Does patient want to see a Market Investigator? No (yes to any of above refer patient to schedulers for dietitian appointment) ) Does patient have any new or increased numbness or tingling of extremities? No Is patient interested in fertility information? No Does patient need any prescription refills? No Does patient have an advanced directive in place? No, Patient referred to [facility] documented in this encounterW[facility]-28-[facility]25 NoteHNO ID: [id number] Author: TAYLA ELLSWORTH MD Service: ? Author Type: Physician Type: Progress Notes Filed: 06/05/2025 14:36 Note Text: Radiation Oncology - Follow Up Note PATIENT NAME: Caitlin Elmore PATIENT DIAGNOSIS: Oligoprogressive 2 RUL lung metastases, from previously treated HANDN cancer. S/p lung SBRT 07/05/2024 Single isocenter for 2 lung lesions: 3400 cGy in 1 fx ONCOLOGIC HX: 1. HPV positive BOT SCC Treatment History: 1. Concurrent Cisplatin and XRT 11/21/2021- XRTY completed 01/06/2023 and last dose of chemo 12/21/2022 (Total [place] dose= 200 mg/m2) 2. 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 Planning on taking trip to [facility] over the summer. May visit [place] later [...] VS: BP 129/71 Pulse 62 Temp 36.7 ?C (98.1 ?F) (Temporal) Resp 20 Wt 89.6 kg (197 lb 8.5 oz) SpO2 100% BMI 27.93 kg/m? KPS: 100 General Appearance: Alert and oriented. [...] scans with Dr. Medina. Joshua Guaman, MS4 [facility] STAFF PHYSICAN NOTE OF PERSONAL INVOLVEMENT IN CARE I have personally participated in the bassett components of the case including a review of imaging and agree wit (more content not included)...[facility]08-28-2025 NoteHNO ID: [id number] Author: MADDY QUACH LPN Service: ? Author Type: Licensed Nurse Type: Progress Notes Filed: 06/05/2025 14:36 Note Text: Additional intake questions: Has the patient had fever, nausea, vomiting, diarrhea, constipation, fatigue for > 1 week? No Does the patient have a decreased appetite? No Does patient want to see a Market Investigator? No (yes to any of above refer patient to schedulers for dietitian appointment) ) Does patient have any new or increased numbness or tingling of extremities? No Is patient interested in fertility information? No Does patient need any prescription refills? No Does patient have an advanced directive in place? No, Patient referred to [facility] Electronically [facility] Telephone encounter Note* Telephone Encounter - Chiqui Modi RN - 06/03/2025 9:41 AM EDT Pt notified that CT is stable Chiqui Modi RN [facility] Work Phone: [phone] Miscellaneous Notes* Telephone Encounter - Chiqui Modi RN - 06/03/2025 9:41 AM EDT Pt notified that CT is stable Chiqui Modi RN * Telephone Encounter - Ellyn Mullins - 05/29/2025 9:24 AM EDT Images from the original note were not included. documented in this encounterWvumed[facility]08-21-2025 Telephone encounter Note * Telephone Encounter - Ellyn Mullins - 05/29/2025 9:24 AM EDT Images from the original note were not included. [facility]08-21-2025 Instructions* Patient Instructions* Lakia Medina MD - 05/29/2025 9:21 AM [...] mass obscuring previously treated pulmonary nodules in theright anterior segment. Dr. Ellsworth believes this is likely a treatment effect rather than disease progression. - A CT scan was performed today, and we will compare it to your prior imaging. Chiqui, your care transitions manager, will call you with the results before your next appointment with Dr. Ellsworth next week. We discussed your ongoing treatment with Keytruda: - You are tolerating Keytruda well without significant side effects such as itching or shortness ofbreath. - I have signed off on cycle 12 of your treatment today. Your next treatment appointment is scheduled for July 11. Please confirm this date with the front end software engineer before leaving. We discussed your follow-up schedule: [...] your diet to accommodate changes in swallowing, suchas avoiding dry foods like bread. Your lab results today were reviewed: - Kidney function has improved since your last visit. - Liver function and CBC results are normal. Please let us know if you experience any new or worsening symptoms, such as shortness of breath, persistent itching, or other concerns. We will continue to monitor your progress closely. documented in this encounterWvumedicine [facility]08-21-2025 History of Present illness Narrative* Lakia Medina MD - 05/29/2025 9:20 AM EDT Images from the original note were not included. NAME: Caitlin Elmore [facility] NO.: [id number] DATE OF SERVICE: May 29, 2025 (Sascha) [...] and received a total of200 mg/m2 of [place] as well. PET with response 04/2023. CT [...] same 2 nodulesgrowing and case discussed at . EBUS of [...] HPV-associated squamous cell carcinoma (see comment). KRAS p.[id number]:c.35G>A 51.2% VAF, Depth 4267x, Ex2 PIK3CA p.[id number]:c.1633G>A 21.7% VAF, Depth 5015x, Ex10 PDL-1 [...] + radiation - Cisplatin completed: 12/21/2021 (total [place] dose: 200mg/m2), radiation completed: 01/06/2022 HPI: Updated [...] family activities, such as annual trips to [place]. (Today) - Imaging study: Results pending. - [...] is stable. Had a recent trip to [facility] in [place] with his family and getting ready to [...] a family trip next month to the [facility]. Updated Visit, August 02, 2024: [...] children - ages 30-19. CLARICE is from [place], Clarissa is from [place]. May 08, 2024: Caitlin Elmore is a [...] which included preparing to see the patient, esqr-gf-lycz patient care, completing clinical documentation, performing a medically appropriate examination, counseling and educating the patient/family/caregiver, ordering medications, tests, or procedures, independently interpreting results (not separately reported), communicating results to the patient/family/caregiver, and care coordination (not separately reported). Lakia Medina MD, CPE Hematology and Oncology Services Provided at: [place], [place] CC: MD Tayla Clarke documented in this encounterWvumedicine [facility]08-21-2025 NoteHNO ID: [id number] Author: LAKIA MEDINA MD Service: ? Author Type: Physician Type: Progress Notes Filed: 05/29/2025 09:23 Note Text: NAME: Caitlin Elmore [facility] NO.: [id number] DATE OF SERVICE: May 29, 2025 (Sascha) [...] received a total of 200 mg/m2 of [place] as well. PET with response 04/2023. CT [...] minute cluster of epithelial cells is noted, withou (more content not included)...[facility]08-21-2025 History of Present illness Narrative* Kayy Kwon, RT(R) - 05/29/2025 8:15 AM EDT Radiology Service Progress Note PATIENT [...] PATIENT PRESENTS WITH 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 RADIOLOGY DEPARTMENT: CT; Exam(s) Completed: Chest PERIPHERAL IV DATA: Site assessment: Clean,Dry and Intact, Site disposition Discontinued SIGNED BY: RT Ramila(R) May 29, 2025 8:11 AM * Ariana Saldana RN - 05/29/2025 8:15 AM EDT Radiology Service Progress Note DATE [...] IV SITE APPEARANCE: Clean,Dry and Intact SIGNATURE: Ariana Saldana RN PATIENT NAME: Caitlin Elmore DATE: May 29, 2025 TIME: 8:14 AM documented in this encounterWvumed[facility]08-21-2025 NoteHNO ID: [id number] Author: ARIANA SALDANA RN Service: ? Author Type: Registered Nurse Type: Progress Notes Filed: 05/29/2025 08:15 Note Text: Radiology Service Progress Note DATE OF SERVICE: [...] Ref Range Status 04/18/2025 49 (L) >=60 mL/min/1.73m? Final Comment: Estimated Glomerular Filtration Rate (eGFR) [...] IV SITE APPEARANCE: Clean,Dry and Intact SIGNATURE: Ariana Saldana RN PATIENT NAME: Caitlin Elmore DATE: May 29, 2025 TIME: 8:14 [facility]08-21-2025 NoteHNO ID: [id number] Author: KAYY KWON RT(R) Service: ? Author Type: Technologist Type: Progress Notes Filed: 05/29/2025 08:11 Note Text: Radiology Service Progress Note PATIENT NAME: Caitlin [...] PATIENT PRESENTS WITH 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 RADIOLOGY DEPARTMENT: CT; Exam(s) Completed: Chest PERIPHERAL IV DATA: Site assessment: Clean,Dry and Intact, Site disposition Discontinued SIGNED BY: RT Ramila(R) May 29, 2025 8:11 [facility]08-20-2025 History of Present illness Narrative* Chuck Jones MD - 05/28/2025 1:00 PM EDT ENDOCRINOLOGY This is a virtual visit using [facility]. It required patient-provider interaction for the medical decision making as documented below. I have communicated my name and active licensure. The patient s identity and physical location wereverified at the time of this visit. Either the patient or their legal market survey representative has been informed of the risks and benefits of -- and alternatives to -- treatment through a remote evaluation andconsents to proceed with the evaluation remotely. The [...] and last dose of chemo 12/21/2022 (Total [place] dose= 200 mg/m2). Recurrence in the Lung Biopsy proven 08/2023: PDL-1 insufficient and KRAS G12A, PIK3CA ( Targeted Oncology only due to sample). Carbo/Taxol ad Pembro 09/26/2023-12/11/2023 ( Cycle 4) With response. Pembro monotherapy. - TSH elevation was initially detected on 11/14/23 and was confirmed over time. Pt was started on LT450 mcg on 01/04/24. - Cortisol was checked [...] better after the increase in the dose ofLT4. - Now on LT4 100 mcg. -Sister [...] months Chuck Jones MD documented in this encounterWvumedicine [facility]08-20-2025 NoteHNO ID: [id number] Author: CHUCK JONES MD Service: ? Author Type: Physician Type: Progress Notes Filed: 05/28/2025 13:14 Note Text: ENDOCRINOLOGY This is a virtual visit using [employer]. It required patient-provider interaction for the medical decision making as documented below. I have communicated my name and active licensure. The patient?s identity and physical location were verified at the time of this visit. Either the patient or their legal market survey representative has been informed of the risks [...] and last dose of chemo 12/21/2022 (Total [place] dose= 200 mg/m2). Recurrence in the Lung [...] OF Right mastoidectomy and incus repair TONSILLECTOMY AND ADENOIDECTOMY Social History Tobacco Use [...] 82 nmol/L 54 Testosterone 193 - 824 ng (more content not included)...[facility]08-01-2025 Telephone encounter Note* Telephone Encounter - Norm Richards MA - 05/09/2025 8:29 AM EDT Faxed to [employer] at [phone]. [facility]08-01-2025 Miscellaneous Notes* Telephone Encounter - Norm Richards MA - 05/09/2025 8:29 AM EDT Faxed to [facility] at [phone]. * Telephone Encounter - Lakia Medina MD - 05/08/2025 8:33 AM EDT Letter sent to you * Telephone Encounter - Chiqui Modi RN - 05/07/2025 9:14 AM EDT Speedy: please dictate letter. 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 Also stating that his condition is stable with treatment. The form to fax back with letter is at [facility]. Thanks, Norm Richards MA documented in this encounterWvumedicine [facility]07-31-2025 Telephone encounter Note * Telephone Encounter - Lakia Medina MD - 05/08/2025 8:33 AM EDT Letter sent to you [facility] Work Phone: 1(474) 504-262107-30-2025 Telephone encounter Note* Telephone Encounter - Chiqui Modi RN - 05/07/2025 9:14 AM EDT Speedy: please dictate letter. 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 Also stating that his condition is stable with treatment. The form to fax back with letter is at [place]. Thanks, Norm Richards MA [facility]07-25-2025 History of Present illness Narrative* Enoch Brennan MD - 05/02/2025 1:00 PM EDT Subjective Patient ID: Caitlin Elmore is a [...] loss) 1973 Nocturia Personal history of irradiation [id number] Tongue cancer (HCC) Past Surgical History: Procedure Laterality Date ADENOIDECTOMY 1974 LARYNGOSCOPY 10/18/2022 w/ Anu pruett MASTOID SURGERY TONSILLECTOMY 1972 TYMPANOSTOMY TUBE PLACEMENT [...] Quarterly appts till 10/2026 documented in this encounterKindred [id number] Instructions* Patient Instructions* Jackie Hoff - 03/07/2025 2:19 PM EDT Pembrolizumab today and q 6 weeks CTs as ordered by Dr. Ellsworth - 06/05/2025 at [facility] Consider rescheduling for 05/30/2025 to coordinate with RTC with me & treatment RTC in 12 weeks for continued treatment Labs same day documented in this encounterWvumedicine [facility]05-30-2025 History of Present illness Narrative* Lakia Medina MD - 03/07/2025 2:00 PM EDT Images from the original note were not included. NAME: Caitlin Elmore [facility] NO.: [id number] DATE OF SERVICE: March 07, 2025 (Sascha) Some elements in this clinic [...] and received a total of200 mg/m2 of [place] as well. PET with response 04/2023. CT [...] same 2 nodulesgrowing and case discussed at . EBUS of hilar node was negative and so completed SBRT to the 2 pulmonary lesions end of June 2024. PET positive in the prostate and he follows urology CRI- Stable PLAN: Pembrolizumab today and q 6 weeks CTs as ordered by Dr. Ellsworth - 06/05/2025 at [facility] Consider rescheduling for 05/30/2025 to coordinate with [...] HPV-associated squamous cell carcinoma (see comment). KRAS p.[id number] NM_[id number]:c.35G>A 51.2% VAF, Depth 4267x, Ex2 PIK3CA p.[id number] NM_[id number]:c.1633G>A 21.7% VAF, Depth 5015x, Ex10 PDL-1 [...] + radiation - Cisplatin completed: 12/21/2021 (total [place] dose: 200mg/m2), radiation completed: 01/06/2022 Updated Visit, [...] is stable. Had a recent trip to [facility] in [place] with his family and getting ready to [...] a family trip next month to the [facility]. Updated Visit, August 02, 2024: [...] children - ages 30-19. CLARICE is from [place], Clarissa is from [place]. May 08, 2024: Caitlin Elmore is a [...] by mouth every 6 hours as needed.^Disp: 100tablet^Rfl: 2 tamsulosin (FLOMAX) 0.4 mg^Take 0.4 mg [...] which included preparing to see the patient, gnab-py-buyw patient care, completing clinical documentation, performing a medically appropriate examination, counseling and educating the patient/family/caregiver, ordering medications, tests, or procedures, independently interpreting results (not separately reported), communicating results to the patient/family/caregiver, and care coordination (not separately reported). aLkia Medina MD, CPE Hematology and Oncology Services Provided at: [place], [place] Scribe Attestation: This note was scribed [...] CC: MD Tayla Clarke documented in this encounterWvumedicine [facility]05-30-2025 NoteHNO ID: [id number] Author: LAKIA MEDINA MD Service: ? Author Type: Physician Type: Progress Notes Filed: 03/07/2025 15:27 Note Text: NAME: Caitlin Elmore [facility] NO.: [id number] DATE OF SERVICE: March 07, 2025 (anjelgissellnishi) Some elements in this clinic note that [...] received a total of 200 mg/m2 of [place] as well. PET with response 04/2023. CT [...] ordered by Dr. Ellsworth - 06/05/2025 at [facility] Consider rescheduling for 05/30/2025 to coordinate with RTC with me AND treatment RTC in 12 weeks for continued [...] or pelvis. Enlargement of the prostate gland 09/26/2023- (more content not included)...[facility] 02-20-2025 History of Present illness Narrative* Tayla Ellsworth MD - 02/20/2025 10:47 AM EDT Radiation Oncology - Follow Up Note PATIENT NAME: Caitlin Elmore PATIENT DIAGNOSIS: Oligoprogressive 2 RUL lung metastases, from previously treated H&N cancer. S/p lungSBRT 07/05/2024 Single isocenter for 2 lung lesions: 3400 cGy in 1 fx ONCOLOGIC HX: 1. HPV positive BOT SCC Treatment History: 1. Concurrent Cisplatin and XRT 11/21/2021- XRTY completed 01/06/2023 and last dose of chemo 12/21/2022 (Total [place] dose= 200 mg/m2) 2. Recurrence in the Lung Biopsy proven 08/2023: PDL-1 insufficient and KRAS G12A, PIK3CA (TargetedOncology only due to sample) 3. Carbo/Taxol ad [...] SOB or chest pain. 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 Planning on taking trip to [facility] over the summer. May visit [place] later [...] CT will be with IV contrast. Jada Ventura) [employer] Medical Student February 20, 2025 [facility] STAFF PHYSICAN NOTE OF PERSONAL INVOLVEMENT IN [...] Ellsworth MD cc: Julian Burton [address] [place] [address] Lakia Medina MD Hematology/Oncology * Maddy Quach LPN - 02/20/2025 10:11 AM EDT Additional intake questions: Has the patient had fever, nausea, vomiting, diarrhea, constipation, fatigue for > 1 week? No Does the patient have a decreased appetite? No Does patient want to see a Market Investigator? No (yes to any of above refer [...] LPN Additional intake questions: documented in this encounterWvumed[facility]05-15-2025 NoteHNO ID: [id number] Author: TAYLA ELLSWORTH MD Service: ? Author Type: Physician Type: Progress Notes Filed: 02/20/2025 16:09 Note Text: Radiation Oncology - Follow Up Note PATIENT NAME: Caitlin Elmore PATIENT DIAGNOSIS: Oligoprogressive 2 RUL lung metastases, from previously treated HANDN cancer. S/p lung SBRT 07/05/2024 Single isocenter for 2 lung lesions: 3400 cGy in 1 fx ONCOLOGIC HX: 1. HPV positive BOT SCC Treatment History: 1. Concurrent Cisplatin and XRT 11/21/2021- XRTY completed 01/06/2023 and last dose of chemo 12/21/2022 (Total [place] dose= 200 mg/m2) 2. Recurrence in the [...] SOB or chest pain. 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 Planning on taking trip to [facility] over the summer. May visit [facility] later this month as his daughter is [...] VS: BP 126/71 Pulse 84 Temp 36.5 ?C (97.7 ?F) (Temporal) Resp 20 Wt 89.5 kg (197 lb 5 oz) SpO2 100% BMI 27.90 kg/m? KPS: 100 General Appearance: Alert and oriented. [...] how it is more likely scar/treatment effect (more content not included)...[facility]05-15-2025 Note HNO ID: [id number] Author: MADDY QUACH LPN Service: ? Author Type: LICENSED NURSE Type: Progress Notes Filed: 02/20/2025 16:09 Note Text: Additional intake questions: Has the patient had fever, nausea, vomiting, diarrhea, constipation, fatigue for > 1 week? No Does the patient have a decreased appetite? No Does patient want to see a Market Investigator? No (yes to any of above refer [...] By: Maddy Quach LPN Additional intake questions: [facility]05-15-2025 History of Present illness Narrative* Cole Villagomez RN - 02/20/2025 8:45 AM EDT Radiology Service Progress Note DATE [...] IV SITE APPEARANCE: Clean,Dry and Intact SIGNATURE: Cole Villagomez RN PATIENT NAME: Caitlin Elmore DATE: February 20, 2025 TIME: 7:54 AM * Racquel Mazariegos RT(R) - 02/20/2025 8:45 AM EDT Radiology Service Progress Note PATIENT [...] PATIENT PRESENTS WITH 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 RADIOLOGY DEPARTMENT: CT; Exam(s) Completed: Abdomen and Chest PERIPHERAL IV DATA: Site assessment: Clean,Dry and Intact, Site disposition Discontinued SIGNED BY: AMARILIS Serrano RT(R) February 20, 2025 8:47 AM documented in this encounterWvumedicine [facility]05-15-2025 NoteHNO ID: [id number] Author: RACQUEL MAZARIEGOS RT(R) Service: Radiology Author Type: Technologist Type: Progress Notes Filed: 02/20/2025 08:57 Note Text: Radiology Service Progress Note PATIENT NAME: Caitlin [...] PATIENT PRESENTS WITH 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 RADIOLOGY DEPARTMENT: CT; Exam(s) Completed: Abdomen and Chest PERIPHERAL IV DATA: Site assessment: Clean,Dry and Intact, Site disposition Discontinued SIGNED BY: AMARILIS Serrano, RT(R) February 20, 2025 8:47 [facility]05-15-2025 NoteHNO ID: [id number] Author: COLE VILLAGOMEZ RN Service: Nursing Author Type: Registered Nurse Type: Progress Notes Filed: 02/20/2025 07:58 Note Text: Radiology Service Progress Note DATE OF SERVICE: [...] Ref Range Status 01/24/2025 59 (L) >=60 mL/min/1.73m? Final Comment: Estimated Glomerular Filtration Rate (eGFR) [...] IV SITE APPEARANCE: Clean,Dry and Intact SIGNATURE: Cole Villagomez RN PATIENT NAME: Caitlin Elmore DATE: February 20, 2025 TIME: 7:54 [facility]04-28-2025 NoteHNO ID: [id number] Author: DAWOOD GRISSOM RN Service: ? Author Type: Registered Nurse Type: Progress Notes Filed: 02/03/2025 09:34 Note Text: Summary: Traditional ACTH Cortisol Stimulation Test Pt presented for Traditional ACTH Cortisol Stimulation Test IV placed in right AC 1st draw obtained 0825 Cosyntropin given via IV push 0830 1st post draw obtained 0900 2nd post draw obtained 0930 Pt did not experience any side effects from medication.[facility]04-25-2025 History of Present illness Narrative* Enoch Brennan MD - 01/31/2025 1:00 PM EDT Subjective Patient ID: Caitlin Elmore is a [...] loss) 1974 Nocturia Personal history of irradiation [id number] Tongue cancer (CMS/[facility]) Past Surgical History: Procedure Laterality Date ADENOIDECTOMY 1975 LARYNGOSCOPY 10/18/2022 w/ biopsy, Timmis MASTOID SURGERY TONSILLECTOMY 1973 TYMPANOSTOMY TUBE PLACEMENT 1974 No Known Allergies Current Outpatient Medications on [...] Quarterly appts till 10/2026 documented in this encounterDanielle [place] [id number] Telephone encounter Note* Telephone Encounter - Kaci Alcala MA - 01/17/2025 5:06 PM EDT Images from the original note were not included. Pharmacy comment: REQUEST FOR 90 DAYS PRESCRIPTION. Most recent Endocrinology visit: Last encounter Visit on 01/10/2025 (with Chuck Jones) 05/10/2024 in [facility] with CHUCK JONES for Acquired hypothyroidism 08/09[facility]20[facility] for [facility]quired hypothyroidism 01/10/2025 [facility] with CHUCK JONES for Adrenal insufficiency (HCC) Upcoming Endocrinology Appointments - Next 365 Days Visit Type Date Time Department EST LILIYA PATIENT 05/09/2025 11:40 AM [facility] Requested Prescriptions Pending Prescriptions Disp Refills [...] Prolactin 4.1 - 25.1 ng/mL 9.0 14.4 [facility]04-11-[facility]25 Miscellaneous Notes* Telephone Encounter - Kaci Alcala MA - 01/17/2025 5:06 PM EDT Images from the original note were not included. Pharmacy comment: REQUEST FOR 90 DAYS PRESCRIPTION. Most recent Endocrinology visit: Last encounter Visit on 01/10/2025 (with Chuck Jones) 05/10/2024 in [facility] with CHUCK JONES for Acquired hypothyroidism 08/09/2024 in [facility] with CHUCK JONES for Acquired hypothyroidism 01/10/2025 in [facility] with HCUCK JONES for Adrenal insufficiency (HCC) Upcoming Endocrinology Appointments - Next 365 Days Visit Type Date Time Department EST LILIYA PATIENT 05/09/2025 11:40 AM [facility] Requested Prescriptions Pending Prescriptions Disp Refills [...] 25.1 ng/mL 9.0 14.4 documented in this encounterWvumedicine [facility]04-10-2025 Telephone encounter Note * Telephone Encounter - Amee Thornton - 01/16/2025 3:02 PM EDT Patient has been scheduled for his STIM Test [facility]04-10-2025 Miscellaneous Notes* Telephone Encounter - Amee Thornton - 01/16/2025 3:02 PM EDT Patient has been scheduled for his STIM Test * Telephone Encounter - Shirlene Oro LPN - 01/15/2025 3:26 PM EDT Patient will need assistance in scheduling Stim Test. Thank You documented in this encounterWvumedicine [facility]04-09-2025 Telephone encounter Note * Telephone Encounter - Shirlene Oro LPN - 01/15/2025 3:26 PM EDT Patient will need assistance in scheduling Stim Test. Thank You [facility]04-04-2025 Instructions* Patient Instructions* Chuck Jones MD - 01/10/2025 11:55 AM [...] in the day (2 hour after a mealor half an hour or more before the next meal) or on the following morning. Use a pill box and make sure you take your full weekly dose. You will be called for the test to stimulate your adrenal glands and check the cortisol response. Famotidine 20 mg daily in the morning, at least 1 hour after levothyroxine. documented in this encounterWvumedicine [facility]ville Hospital04-04-2025 NoteHNO ID: [id number] Author: CHUCK JONES MD Service: ? Author Type: Physician Type: Progress Notes Filed: 01/12/2025 15:53 Note Text: ENDOCRINOLOGY The patient was referred by Tremaine [...] and last dose of chemo 12/21/2022 (Total [place] dose= 200 mg/m2). Recurrence in the Lung [...] OF Right mastoidectomy and incus repair TONSILLECTOMY AND ADENOIDECTOMY Social History Tobacco Use [...] kg (206 lb 2.1 oz) BMI 29.15 kg/m? Body mass index is 29.15 kg/m?. Appearance: Well appearing, in no acute distress. [...] - 2.6 % 1.6 1.4 Testosterone, Bioavailable 1 (more content not included)...[facility]04-04-2025 History of Present illness Narrative* Chuck Jones MD - 01/10/2025 11:31 AM EDT ENDOCRINOLOGY The patient was referred by Tremaine [...] and last dose of chemo 12/21/2022 (Total [place] dose= 200 mg/m2). Recurrence in the Lung [...] daily. TSH on upper normal level. Pt feelstired. Will aim for a mid normal TSH. [...] months Chuck Jones MD documented in this encounterWvumedicine [facility] Hospital03-07-2025 Instructions* Patient Instructions* Jackie Hoff - 12/13/2024 1:47 PM EST Pembrolizumab today and every 6 weeks CTs as ordered by Dr. Ellsworth [facility] in 12 weeks for treatment Labs same day documented in this encounterWvumedicine [facility]03-07-2025 History of Present illness Narrative* Lakia Medina MD - 12/13/2024 1:40 PM EST Images from the original note were not included. NAME: Caitlin Elmore [facility] NO.: [id number] DATE OF SERVICE: December 13, 2024 (Sascha) [...] and received a total of200 mg/m2 of [place] as well. PET with response 04/2023. CT [...] 2 nodulesgrowing and case discussed at TB. EBUSof hilar [...] HPV-associated squamous cell carcinoma (see comment). KRAS p.Plb91Ovt NM_033360.2:c.35G>A 51.2% VAF, Depth 4267x, Ex2 PIK3CA p.Tic100Iln NM_006218.2:c.1633G>A 21.7% VAF, Depth 5015x, Ex10 PDL-1 [...] + radiation - Cisplatin completed: 12/21/2021 (total [place] dose: 200mg/m2), radiation completed: 01/06/2022 Updated Visit, [...] is stable. Had a recent trip to [facility] in [place] with his family and getting ready to [...] a family trip next month to the [facility]. Updated Visit, August 02, 2024: [...] children - ages 30-19. CLARICE is from [place], Clarissa is from [place]. May 08, 2024: Caitlin Elmore is a [...] which included preparing to see the patient, [id number] patient care, completing clinical documentation, performing a medically appropriate examination, counseling and educating the patient/family/caregiver, ordering medications, tests, or procedures, independently interpreting results (not separately reported), communicating results to the patient/family/caregiver, and care coordination (not separately reported). Lakia Medina MD, CPE Hematology and Oncology Services Provided at: [place], [place] Scribe Attestation: This note was scribed [...] my direction. CC: Julian Burton MD [address] [facility] [address] documented in this encounterWvumedicine [facility]03-07-2025 NoteHNO ID: [id number] Author: LAKIA MEDINA MD Service: ? Author Type: Physician Type: Progress Notes Filed: 12/13/2024 18:13 Note Text: NAME: Caitlin Elmore [facility] NO.: [id number] DATE OF SERVICE: December 13, 2024 (Sascha) [...] received a total of 200 mg/m2 of [place] as well. PET with response 04/2023. CT [...] mild uptake are also seen. HEAD/NECK, ABDOMEN/PELVIS, AND EXTREMITIES/SKELETON: No evidence of focal uptake to suggest FDG avid neoplastic process. 08/2023 - RUL biopsy: Lung, right upper lobe, nodule, biopsy: - HPV-associated squamous cell carcinoma (see comment). KRAS p.Yix39Piw NM_033360.2:c.35G>A 51.2% VAF, Depth 4267x, Ex2 PIK3CA p.Etj196Gdx NM_006218.2:c.1633G>A 21.7% VAF, Depth 5015x, Ex10 PDL-1 Insufficient 07/2023 - CT Chest: Since 04/14/2023, multiple enlarging right lung nodules, suspicious for m (more content not included)...[facility]01-24-2025 History of Present illness Narrative* Vicky Maguire APRN.DIESEL LOCOMOTIVE ENGINEER - 11/01/2024 1:30 PM EST Images from the original note were not included. NAME: Elmore [facility] NO.: [id number] DATE OF SERVICE: November 01, 2024 (Maria [...] and received a total of200 mg/m2 of [place] as well. PET with response 04/2023. CT [...] 2 nodulesgrowing and case discussed at TB. EBUSof hilar [...] HPV-associated squamous cell carcinoma (see comment). KRAS p.Gic66Ftz NM_033360.2:c.35G>A 51.2% VAF, Depth 4267x, Ex2 PIK3CA p.Roa210Zmr NM_006218.2:c.1633G>A 21.7% VAF, Depth 5015x, Ex10 PDL-1 [...] + radiation - Cisplatin completed: 12/21/2021 (total [place] dose: 200mg/m2), radiation completed: 01/06/2022 Updated Visit, November 01, 2023: Caitlin returns today for consideration of maintenance Keytruda. He remains on pembrolizumab every 6 weeks with no complaints. He has had no significant medical changes. He denies any shortness of breath, rashes, diarrhea, nausea, vomiting, abdominal pain. Recent imaging is stable. Had a recent trip to [facility] in [place] with his family and getting ready to [...] a family trip next month to the [facility]. Updated Visit, August 02, 2024: [...] children - ages 30-19. CLARICE is from [place], Clarissa is from [place]. May 08, 2024: Caitlin Elmore is a [...] radiology test) CT Chest Abdomen-Inject, intravenously, once for1 dose.No IV access, insert saline lock prior [...] No Family History . Vicky Maguire APRN, SHELL SHOP SUPERVISOR-C, [facility] Hematology and Oncology Services Provided at: [place], [place] CC: Julian Burton MD [address] [facility] [address] documented in this encounterWvumedicine Barnesville Hospital01-24-2025 NoteHNO ID: [id number] Author: VICKY MAGUIRE APRN.DIESEL LOCOMOTIVE ENGINEER Service: ? Author Type: Nurse Practitioner Type: Progress Notes Filed: 11/01/2024 13:38 Note Text: NAME: Caitlin Elmore [facility] NO.: [id number] DATE OF SERVICE: November 01, 2024 (Maria [...] received a total of 200 mg/m2 of [place] as well. PET with response 04/2023. CT [...] mild uptake are also seen. HEAD/NECK, ABDOMEN/PELVIS, AND EXTREMITIES/SKELETON: No evidence of focal uptake to suggest FDG avid neoplastic process. 08/2023 - RUL biopsy: Lung, right upper lobe, nodule, biopsy: - HPV-associated squamous cell carcinoma (see comment). KRAS p.Wbv28Gnf NM_033360.2:c.35G>A 51.2% VAF, Depth 4267x, Ex2 PIK3CA p.Aiq333Qxt NM_006218.2:c.1633G>A 21.7% VAF, Depth 5015x, Ex10 PDL-1 Insufficient 07/2023 - CT Chest: Since 04/14/2023, multiple enlarging right lung nodules, suspicious for metastases. No progr (more content not included)...[facility]01-24-2025 History of Present illness Narrative* Enoch Brennan MD - 11/01/2024 9:40 AM EST Subjective Patient ID: Caitlin Elmore is a [...] loss) 1973 Nocturia Personal history of irradiation [id number] Tongue cancer (CMS/HCC) Past Surgical History: Procedure Laterality Date ADENOIDECTOMY 1975 LARYNGOSCOPY 10/18/2022 w/ biopsy, Timmis MASTOID SURGERY TONSILLECTOMY 1973 TYMPANOSTOMY TUBE PLACEMENT 1974 No Known Allergies Current Outpatient Medications on [...] today. Start quarterly appts documented in this encounterKindred [id number] NoteHNO ID: [id number] Author: TAYLA ELLSWORTH MD Service: ? Author Type: Physician Type: Progress Notes Filed: 11/03/2024 16:58 Note Text: Radiation Oncology - Follow Up Note PATIENT NAME: Caitlin Elmore PATIENT DIAGNOSIS: Oligoprogressive 2 RUL lung metastases, from previously treated HANDN cancer. S/p lung SBRT 07/05/2024 Single isocenter for 2 lung lesions: 3400 cGy in 1 fx ONCOLOGIC HX: 1. HPV positive BOT SCC Treatment History: 1. Concurrent Cisplatin and XRT 11/21/2021- XRTY completed 01/06/2023 and last dose of chemo 12/21/2022 (Total [place] dose= 200 mg/m2) 2. Recurrence in the [...] therapy perspective. Results CT CHEST WO IVCON (Acc#[id number]) (Order [id number]) Patient Info Patient Name Sex Caitlin Jorgensen ([id number]) Male 1965 10/31/2024 11:24 AM - Radiology, [...] on follow-up recommended. Presumed prior granulomatous infection. Wool Broker: JALEN Transcribe Date/Time: Oct 31 2024 10:58A [...] VS: BP 125/70 Pulse 73 Temp 36.6 ?C (97.9 ?F) (Temporal) Resp 18 Wt 94.7 kg (208 lb 12.4 oz) SpO2 96% BMI 29.96 kg/m? KPS: 100 General Appearance: Alert and oriented. [...] Ellsworth MD cc: Julian Burton [address] [place] [id number] Additional intake questions: Has the patient had fever, nausea, vomiting, diarrhea, constipation, (more content not included)...[facility]01-23-2025 History of Present illness Narrative* Tayla Ellsworth MD - 10/31/2024 11:13 AM EST Radiation Oncology - Follow Up Note PATIENT NAME: Caitlin Elmore PATIENT DIAGNOSIS: Oligoprogressive 2 RUL lung metastases, from previously treated H&N cancer. S/p lungSBRT 07/05/2024 Single isocenter for 2 lung lesions: 3400 cGy in 1 fx ONCOLOGIC HX: 1. HPV positive BOT SCC Treatment History: 1. Concurrent Cisplatin and XRT 11/21/2021- XRTY completed 01/06/2023 and last dose of chemo 12/21/2022 (Total [place] dose= 200 mg/m2) 2. Recurrence in the [...] systemic therapy perspective. [facility] (Acc#[id number]) (Order [id number]) Patient Info Patient Name Sex Caitlin Jorgensen ([id number]) Male 1965 10/31/2024 11:24 AM - Radiology, [...] on follow-up recommended. Presumed prior granulomatous infection. Wool Broker: JALEN Transcribe Date/Time: Oct 31 2024 10:58A [...] by: Tayla Ellsworth MD cc: Julian Burton [address] [place] [address] Additional intake questions: Has the patient had fever, nausea, vomiting, diarrhea, constipation, fatigue for > 1 week? No Does the patient have a decreased appetite? No Does patient want to see a Market Investigator? No (yes to any of above refer patient to schedulers for dietitian appointment) ) Does patient have any new or increased numbness or tingling of extremities? No Is patient interested in fertility information? NA Does patient need any prescription refills? No Does patient have an advanced directive in place? No Electronically Signed By: Winnie Newman LPN documented in this encounterWvumedicine [facility]ville Hospital01-23-2025 History of Present illness Narrative* Farida Garcia, RT(R) - 10/31/2024 10:45 AM EST Radiology Service Progress Note PATIENT [...] PATIENT PRESENTS WITH 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 RADIOLOGY DEPARTMENT: CT; Exam(s) Completed: Chest PERIPHERAL IV DATA: Not applicable SIGNED BY: RT Cullen(R) October 31, 2024 10:28 AM documented in this encounterWvumedicine Barnesville Hospital01-23-2025 NoteHNO ID: [id number] Author: FARIDA GARCIA RT(R) Service: Radiology Author Type: Technologist Type: Progress Notes Filed: 10/31/2024 10:28 Note Text: Radiology Service Progress Note PATIENT NAME: Caitlin [...] PATIENT PRESENTS WITH 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 RADIOLOGY DEPARTMENT: CT; Exam(s) Completed: Chest PERIPHERAL IV DATA: Not applicable SIGNED BY: RT Cullen(R) October 31, 2024 10:28 [facility]12-13-2024 History of Present illness Narrative* Enoch Brennan MD - 09/20/2024 1:00 PM EST Subjective Patient ID: Caitlin Elmore is a [...] loss) 1973 Nocturia Personal history of irradiation [id number] Tongue cancer (CMS/HCC) Past Surgical History: Procedure Laterality Date ADENOIDECTOMY 1975 LARYNGOSCOPY 10/18/2022 w/ biopsy, Timmis MASTOID SURGERY TONSILLECTOMY 1973 TYMPANOSTOMY TUBE PLACEMENT 1973 No Known Allergies [...] quarterly visits next week documented in this encounterKindred [id number] NoteHNO ID: [id number] Author: WHITNEY HALLMAN APRN.DIESEL LOCOMOTIVE ENGINEER Service: ? Author Type: Nurse Practitioner Type: Progress Notes Filed: 09/13/2024 13:56 Note Text: NAME: Caitlin Elmore [facility] NO.: [id number] DATE OF SERVICE: September 13, 2024 (Tang) [...] received a total of 200 mg/m2 of [place] as well. PET with response 04/2023. CT [...] mild uptake are also seen. HEAD/NECK, ABDOMEN/PELVIS, AND EXTREMITIES/SKELETON: No evidence of focal uptake to suggest FDG avid neoplastic process. 08/2023 - RUL biopsy: Lung, right upper lobe, nodule, biopsy: - HPV-associated squamous cell carcinoma (see comment). KRAS p.Hrx94Xpi NM_033360.2:c.35G>A 51.2% VAF, Depth 4267x, Ex2 PIK3CA p.Kal488Wis NM_006218.2:c.1633G>A 21.7% VAF, Depth 5015x, Ex10 PDL-1 [...] right oropharyngeal region mass compatible with neoplastic proce (more content not included)...[facility] 09-13-2024 History of Present illness Narrative* Whitney Hallman APRN.DIESEL LOCOMOTIVE ENGINEER - 09/13/2024 12:43 PM EST Images from the original note were not included. NAME: Juanjose [facility] NO.: [id number] DATE OF SERVICE: September 13, 2024 (Tang) [...] and received a total of200 mg/m2 of [place] as well. PET with response 04/2023. CT [...] 2 nodulesgrowing and case discussed at TB. EBUSof hilar [...] HPV-associated squamous cell carcinoma (see comment). KRAS p.Ehv26Uwc NM_033360.2:c.35G>A 51.2% VAF, Depth 4267x, Ex2 PIK3CA p.Gow316Biv NM_006218.2:c.1633G>A 21.7% VAF, Depth 5015x, Ex10 PDL-1 [...] + radiation - Cisplatin completed: 12/21/2021 (total [place] dose: 200mg/m2), radiation completed: 01/06/2022 Updated Visit, [...] a family trip next month to the [facility]. Updated Visit, August 02, 2024: [...] children - ages 30-19. CLARICE is from [place], Clarissa is from [place]. May 08, 2024: Caitlin Elmore is a [...] 16 Ht 5' 10 (1.78m) Wt 209 lb7 oz (95.0kg) SpO2 99% BMI 30.05 kg/(m^2). [...] which included preparing to see the patient, [id number] patient care, completing clinical documentation, obtaining and/or reviewing separately obtained history, performing a medically appropriate examination, counseling and educating the pat ient/family/caregiver, ordering medications, tests, or procedures, independently interpreting results (not separately reported), and communicating results to the patient/family/caregiver. Whitney Hallman APRN.CNP Hematology and Oncology Services Provided at: [place], [place] CC: Julian Burton MD [address] [facility] [id number] documented in this encounterWvumedicine [facility]ville [facility]11-12-2024 History of Present illness Narrative* Enoch Brennan MD - 08/20/2024 1:00 PM EST Subjective Patient ID: Caitlin Elmore is a [...] Metastasis to head and neck lymph node ([facility]/HCC) 02/24/2023 Squamous cell cancer of tongue ([facility]/HCC) 02/24/2023 Hypertension ([facility]) 02/24/2023 Hearing loss 04/09/2023 Acute swimmer's ear [...] loss) 1974 Nocturia Personal history of irradiation [id number] Tongue cancer (CMS/HCC) Past Surgical History: Procedure Laterality Date ADENOIDECTOMY 1975 LARYNGOSCOPY 10/18/2022 w/ biopsy, Anu MASTOID SURGERY TONSILLECTOMY 1973 TYMPANOSTOMY TUBE PLACEMENT 1974 No Known Allergies Current Outpatient Medications on [...] Monthly appts till 10/2024 documented in this encounterKindred [id number] Instructions* Patient Instructions* Chuck Jones MD - 08/09/2024 2:49 PM EDT Levothyroxine 88 mcg daily. Come to lab in October, before your appointment, before 8:00 AM. documented in this encounterWvumedicine [facility]ville [facility]11-01-2024 History of Present illness Narrative* Chuck Jones MD - 08/09/2024 2:28 PM EDT ENDOCRINOLOGY The patient was referred by Tremaine [...] and last dose of chemo 12/21/2022 (Total [place] dose= 200 mg/m2). Recurrence in the Lung [...] BMI 30.11 kg/m Body mass index is 30.11kg/m . Appearance: Well appearing, in no acute [...] months Chuck Jones MD documented in this encounterWvumedicine [facility]ville Hospital10-25-2024 History of Present illness Narrative* Mireya Bates RN - 08/02/2024 1:50 PM EDT [facility] creatinine [facility] 1.67. Pt is going to increase oral fluid intake. Mireya Bates RN documented in this encounterWvumedicine Barnesville Hospital10-25-2024 Instructions* Patient Instructions* Lakia Medina MD - 08/02/2024 1:10 PM EDT Pembrolizumab today Keep CT's in October [address] Ellsworth RTC in 6 weeks for treatment (APPs ok) Labs same day documented in this encounterWvumedicine Barnesville Hospital10-25-2024 History of Present illness Narrative* Lakia Medina MD - 08/02/2024 1:00 PM EDT Images from the original note were not included. NAME: Juanjose Caitlin [facility] NO.: [id number] DATE OF SERVICE: August 02, 2024 (Sascha) [...] and received a total of200 mg/m2 of [place] as well. PET with response 04/2023. CT [...] 2 nodulesgrowing and case discussed at TB. EBUSof hilar [...] HPV-associated squamous cell carcinoma (see comment). KRAS p.Apo41Vrc [id number]:c.35G>A 51.2% VAF, Depth 4267x, Ex2 PIK3CA p.Bpx294Mwi [id number]:c.1633G>A 21.7% VAF, Depth 5015x, Ex10 PDL-1 [...] + radiation - Cisplatin completed: 12/21/2021 (total [place] dose: 200mg/m2), radiation completed: 01/06/2022 Updated Visit, [...] children - ages 30-19. CLARICE is from [place], Clarissa is from [place]. May 08, 2024: Caitlin Elmore is a [...] which included preparing to see the patient, nvcs-hh-bqqq patient care, completing clinical documentation, obtaining and/or reviewing separately obtained history, performing a medically appropriate examination, counseling and educating the pat ient/family/caregiver, ordering medications, tests, or procedures, independently interpreting results (not separately reported), communicating results to the patient/family/caregiver, and care coordination (not separately reported). Lakia Medina MD, CPE Hematology and Oncology Services Provided at: [place], [place] CC: Julian Burton MD [address] [facility] [address] documented in this encounterWvumedicine [facility]10-04-2024 History of Present illness Narrative* Enoch Brennan MD - 07/12/2024 1:30 PM EDT Subjective Patient ID: Caitlin Elmore is a [...] loss) 1972 Nocturia Personal history of irradiation [id number] Tongue cancer (CMS/HCC) Past Surgical History: Procedure [...] before appt and F/U in [place] to debride documented in this encounterKindred HospitalMswdailrmo27-53-5340 History of Present illness Narrative* Tayla Ellsworth MD - 07/06/2024 12:00 AM EDT CAITLIN ELMORE [id number] 07/06/2024 [facility] Department of Radiation Oncology [facility] RADIATION ONCOLOGY: COMPLETION NOTE DATE OF SIMULATION: 06/28/24 DATES OF TREATMENT: 07/05/24 UNIT: [employer] AREA TREATED: RUL lung DIAGNOSIS: Oligoprogressive 2 RUL lung metastases, from previously treated H&N cancer. ONCOLOGIC HX: 1. HPV positive BOT SCC Treatment History: 1. Concurrent Cisplatin and XRT 11/21/2021- XRTY completed 01/06/2023 and last dose of chemo 12/21/2022 (Total [place] dose= 200 mg/m2) 2. Recurrence in the Lung Biopsy proven 08/2023: PDL-1 insufficient and KRAS G12A, PIK3CA (Targeted Oncology only due to sample) 3. Carbo/Taxol ad Pembro 09/26/2023-12/11/2023 (Cycle 4) with response, Pembro monotherapy CONCURRENT THERAPY: none DELIVERED DOSE: Single isocenter for 2 lung lesions: 3400 cGy in 1 fx of 3400 cGy/fx were deliveredwith 6 FFF MV photons via SBRT coplanar [...] 42:51 PM Electronically Signed cc: Julian Burton [address] [place] [id number] Elizabeth Durham [facility] [id number] documented in this encounterWvumedicine [facility]09-27-2024 History of Present illness Narrative* Tayla Ellsworth MD - 07/05/2024 2:40 PM EDT Radiation Oncology - On Treatment [...] by: Tayla Ellsworth MD documented in this encounterWvumedicine [facility] Hospital09-20-2024 Hospital Discharge instructions Patient Education 06/28/2024 13:59:30 [...] treatment? Where to find more information The [employer]: www.cancer.org [employer]: www.auanet.org Contact a health care [...] provider. Document Revised: 03/21/2022 Document Reviewed: 03/21/2022 [employer] Patient Education 2023 Dot VN Follow Up Care 07/07/2023 11:12:59 With:Rafa KELLEY, ZANDRA IbarraL, URO Address: When: Unknown [facility] [id number] History of Present illness Narrative* Donna Bowie RRT - 06/28/2024 12:07 PM EDT PULM FUNCTION: Provider: Tayla Ellsworth MD Spirometry: 1 DLCO: 1 System: MC9 - [id number] documented in this encounterWvumedicine Barnesville Hospital09-20-2024 History of Present illness Narrative* Lizett Garner RN - 06/28/2024 9:58 AM EDT Radiation Therapy - Patient Education Note PATIENT NAME: Caitlin Elmore PATIENT June 28, 2024 [facility] FACILITY/LOCATION: [facility] [place] READINESS TO LEARN Cognitive Ability: Alert and [...] 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 Was PED reviewed? Yes Patient has an Onbody or Implanted device: No Signed by: Lizett Garner RN documented in this encounterWvumedicine Barnesville Hospital09-20-2024 History of Present illness Narrative* Tayla Ellsworth MD - 06/28/2024 12:00 AM EDT CAITLIN ELMORE [id number] 06/28/2024 [facility] Department of Radiation Oncology [facility] RADIATION ONCOLOGY SIMULATION NOTE DATE OF SIMULATION: 06/28/2024 MACHINE: CT Simulator DIAGNOSIS: Oligoprogressive 2 RUL lung metastases, from previously treated H&N cancer. ONCOLOGIC HX: 1.HPV positive BOT SCC Treatment History: 1.Concurrent Cisplatin and XRT 11/21/2021- XRTY completed 01/06/2023 and last dose of chemo 12/21/2022( Total [place] dose= 200 mg/m2) 2.Recurrence in the Lung [...] ELLSWORTH M.D. 0:57 AM documented in this encounterWvumedicine [facility]ville Hospital09-20-2024 History of Present illness Narrative* Tayla Ellsworth MD - 06/28/2024 12:00 AM EDT CAITLIN ELMORE [id number] 06/28/2024 [facility] Department of Radiation Oncology Treatment Planning Note [...] a breath hold device. Multiple CT image setswere acquired and reviewed to assess respiratory reproducibility, [...] Ellsworth M.D. 1:33 AM documented in this encounterWvumedicine Barnesville Hospital09-12-2024 Instructions* Patient Instructions* Jackie Hoff - 06/20/2024 2:11 PM EDT Pembrolizumab today Proceed with radiation per Dr. Ellsworth RTC with me in 6 weeks for treatment Labs same day documented in this encounterWvumedicine Barnesville Hospital09-12-2024 History of Present illness Narrative* Lakia Medina MD - 06/20/2024 1:45 PM EDT Images from the original note were not included. NAME: Caitlin Elmore [facility] NO.: [id number] DATE OF SERVICE: June 20, 2024 (Sascha) [...] and received a total of200 mg/m2 of [place] as well. PET with response 04/2023. CT [...] HPV-associated squamous cell carcinoma (see comment). KRAS p.Eda93Npf NM_[id number]:c.35G>A 51.2% VAF, Depth 4267x, Ex2 PIK3CA p.Nag182Eql NM_[id number]:c.1633G>A 21.7% VAF, Depth 5015x, Ex10 PDL-1 [...] + radiation - Cisplatin completed: 12/21/2021 (total [place] dose: 200mg/m2), radiation completed: 01/06/2022 Initial Visit, [...] children - ages 30-19. CLARICE is from [place], Clarissa is from [place]. May 08, 2024: Caitlin Elmore is a [...] which included preparing to see the patient, itge-gc-byhn patient care, completing clinical documentation, obtaining and/or reviewing separately obtained history, performing a medically appropriate examination, counseling and educating the pat ient/family/caregiver, ordering medications, tests, or procedures, independently interpreting results (not separately reported), communicating results to the patient/family/caregiver, and care coordination (not separately reported). Lakia Medina MD, CPE Hematology and Oncology Services Provided at: [place], [place] Scribe Attestation: This note was scribed [...] my direction. CC: Julian Burton MD [address] [facility] [address] documented in this encounterWvumedicine Barnesville Hospital09-09-2024 Telephone encounter Note * Telephone Encounter - Tayler Silva MA - 06/17/2024 10:01 AM EDT ANNY patient scheduled 06/20 needs lab orders. Tayler Silva MA [facility]09-09-2024 Miscellaneous Notes* Telephone Encounter - Tayler Silva MA - 06/17/2024 10:01 AM EDT ANNY patient scheduled 06/20 needs lab orders. Tayler Silva MA documented in this encounterWvumedicine Barnesville Hospital09-05-2024 Evaluation note* Diagnosis Oropharnyx cancer (HCC) Malaise and fatigue [...] 3b CKD (HCC) documented in this encounter [facility]09-04-2024 History of Present illness Narrative* Tayla [...] and last dose of chemo 12/21/2022 (Total [place] dose= 200 mg/m2) Recurrence in the Lung [...] known hx of H&N cancer treated in [place] in 2021. Unfortunately he then developed a [...] swallowing or oral issues. 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 He is able-bodied [...] 1965 Admit Type: Ambulatory Age: 59 Room: [facility] Room 2 Gender: Male Attending MD: Ras Starr MD, [id number] Procedure: Bronchoscopy Indications: Mediastinal adenopathy Providers: Ras [...] Recommendation: - Await test results. SURGICAL PATHOLOGY: [id number] Order: [id number] Collected 05/21/2024 11:20 AM Status: Edited Result [...] will be reported in an addendum. CYTOLOGY NON-DIESEL INSTRUCTOR: [id number] Order: [id number] Collected 05/21/2024 10:22 AM Status: Final result [...] part B. Results CT CHEST W IVCON (Acc#[id number]) (Order [id number]) Patient Info Patient Name Sex Caitlin Jorgensen ([id number]) Male 1965 05/03/2024 6:25 PM - Radiology, [...] any questions regarding this interpretation, please call [phone]. If you are unable to reach us at the number above, please feel free to contact [facility] at [phone]. Results-Findings * * *Final Report* * * DATE OF EXAM: May 03 2024 8:40AM [facility] 0539 - CT CHEST W IVCON / [...] literature provided. He wishes his care at [facility]. We also reviewed the fact that biopsy [...] by: Tayla Ellsworth MD cc: Julian Burton [address] [place] [address] Elizabeth Indio [address] [place] [id number] documented in this encounterWvumedicine [facility] Hospital08-26-2024 Telephone encounter Note * Telephone Encounter - Disha Salgado - 06/03/2024 1:04 PM EDT Caitlin you have been scheduled at [facility] Radiation [facility] 06-11-24. 2:15pm. Dr. Ellsworth does not see for your diagnosis. Thank you for your patience. [facility]08-26-2024 Miscellaneous Notes* Telephone Encounter - Disha Salgado - 06/03/2024 1:04 PM EDT Caitlin you have been scheduled at [facility] 06-11-24. 2:15pm. Dr. Ellsworth does not see for your diagnosis. Thank you for your patience. 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 SIGNATURE: Jing Howell APRN.INCOME TAX ADMINISTRATOR PATIENT NAME: Caitlin Elmore DATE: May 21, 2024 TIME: 10:54 AM CSN: [id number] [facility] Patient Name: Caitlin Elmore Procedure Date: 05/21/2024 10:41 AM Date of : 1965 Admit Type: Ambulatory Age: 59 Room: [facility] Room 2 Gender: Male Attending MD: Ras Starr MD, [id number] Procedure: Bronchoscopy Indications: Mediastinal adenopathy Providers: Ras Starr MD (Doctor), Donna Raines, RN (Assisting Nurse), Ana Wolf RN (Assisting [...] preliminary cytology was non- (more content not included)...[facility]Rfxfhjwz[facility] History of Present illness Narrative* Karolina Catalan MD - 05/17/2024 9:30 AM EDT Pre-Bronchoscopy H&P CONSULTATION PCP: Julian Burton MD No ref. provider found Chief Complaint: Pre-bronchoscopy evaluation I have communicated my name and active licensure. The patient's identity and physical location wereverified at the time of this visit. Either the patient or their legal market survey representative has been informed of the risks and benefits of -- and alternatives to -- treatment through a remote evaluation andconsents to proceed with the evaluation remotely. HPI: Caitlin Elmore is a 59 year old who presents today for the evaluation of past medical history prior to proceeding with bronchoscopy. 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 ECOG PERFORMANCE STATUS: 0- Fully active, able [...] 426 QTC Calculation (Bazett) 446 Calculated P Erbacon 61 Calculated R Erbacon -5 Calculated T Erbacon 45 Impression NORMAL SINUS RHYTHM NORMAL ECG ROS-negative for chest pain, dyspnea, cough, wheezing or use of inhalers/nebulizers. Immunization History Administered Date(s) Administered COVID-19 original vaccine, age 12+ yr, monovalent ([employer] Keiretsu - PURPLE TOP) 08/06/2021 09/03/2021 influenza (IIV4) [...] prior to undergoing EBUS next week. #1 Edte-vv-ytlzbk SCC s/p chemotherapy + XRT with metastatic [...] which included preparing to see the patient, cbyl-zw-hvdi patient care, and completing clinical documentation. documented in this encounterWvumedicine [facility]ville Hospital08-09-2024 NoteHNO ID: [id number] Author: KAROLINA CATALAN MD Service: ? Author Type: Physician Type: Progress Notes Filed: 05/17/2024 10:00 Note Text: Pre-Bronchoscopy HANDP CONSULTATION PCP: Julian Burton MD No ref. provider found Chief Complaint: Pre-bronchoscopy evaluation I have communicated my name and active licensure. The patient's identity and physical location were verified at the time of this visit. Either the patient or their legal market survey representative has been informed of the risks and benefits of -- and alternatives to -- treatment through a remote evaluation and consents to proceed with the evaluation remotely. HPI: Caitlin Elmore is a 59 year old who presents today for the evaluation of past medical history prior to proceeding with bronchoscopy. Briefly, he has a past medical history significant for udvb-pq-ubzhze SCC s/p cisplatin and XRT 6225-1667 with recurrent in lung s/p robotic bronchoscopic [...] to look up and rotate head from nmur-fy-prsk. ECOG PERFORMANCE STATUS: 0- Fully active, able [...] mouth every 6 ho (more content not included)...[facility] HospitalVfmzrftz88-26-1750 Nurse Note* Dorys Dutton MA - 05/16/2024 2:58 PM EDT EKG performed as ordered, [facility] to [facility] main. Dorys Dixon MA [facility]08-08-2024 Nurse Note* Dorys Dutton MA - 05/16/2024 2:58 PM EDT EKG performed as ordered, transmitted electronically to [facility] main. Dorys Dixon MA documented in this encounterWvumedicine Barnesville Hospital08-06-2024 Instructions* Patient Instructions* Negrita Gaffney PA - 05/14/2024 2:38 PM EDT Images from the original note were not included. [facility]est[facility] PATIENT PREOPERATIVE INSTRUCTIONS Ras Starr MD has scheduled you for your procedure at this surgery center: [facility]: [phone] -[phone] [place] [address]. Please check in on the1st floor at registration desk 6. Please read [...] Procedures: - YOU MUST HAVE A RESPONSIBLE GREASE MAN TAKE YOU HOME. A ALL SOURCE ANALYST OR STATISTICAL ANALYST CANNOT BE MADE A RESPONSIBLE GREASE MAN. - We recommend that a responsible person [...] Advance Directive, please fax a copy to [phone] or email to for it to be [...] that day. FRANCISCO Burnett documented in this encounterWvumedicine [facility]ville Hospital08-06-2024 History and physical note * Negrita Gaffney PA - 05/14/2024 2:30 PM EDT Images from the original note were not included. [facility] Pre-Anesthesia Consultation Clinic HISTORY [...] have a large neck STOP-Bang Score: 4 [id number] Score: Hypertension history: Yes [id number] Score: ANESTHESIA FINDINGS: Intubation History: No history [...] encounter. This is a virtual visit using Ill[employer]io video visit. It required patient-provider interaction for [...] virtual visit. The visit was conducted using [employer] video visit. It required patient-provider interaction for the medical decision making as documented below. I have communicated my name and active licensure. The patient's identity and physical location wereverified at the time of this visit. Either the patient or their legal market survey representative has been informed of the risks and benefits of and alternatives to treatment through a remote evaluation and consents to proceed with the evaluation remotely. REVIEW OF SYSTEMS: General: No weight loss, malaise or fevers. Neurological: No history of TIA's, stroke, YARD COORDINATOR tumor, impaired sensorium, hemiplegia, paraplegia orquadraplegia. No [...] 452 QTC Calculation (Bazett) 420 Calculated P Erbacon 64 Calculated R Erbacon 23 Calculated T Erbacon 43 Impression SINUS BRADYCARDIA OTHERWISE NORMAL ECG Confirmed by SAHARA GARCIA M.D. ([id number]) on 08/29/2023 2:56:05 PM No results found for this or any previous visit (from the past 11584 hour(s)). Instructions Given to Patient: Instructions located in the after visit summary. Patient given verbal and written preop instructions and voices comprehension and compliance. SIGNATURE: FRANCISCO Burnett PATIENT NAME: Caitlin Elmore DATE: May 14, 2024 TIME: 11:09 AM PAGER/CONTACT #: [facility]-06-[facility] History and physical note* Negrita Gaffney PA [...] have a large neck STOP-Bang Score: 4 [id number]-HEPh Score: Hypertension history: Yes [id number] Score: ANESTHESIA FINDINGS: Intubation History: No history [...] encounter. This is a virtual visit using [employer] video visit. It required patient-provider interaction for [...] virtual visit. The visit was conducted using [employer] video visit. It required patient-provider interaction for the medical decision making as documented below. I have communicated my name and active licensure. The patient's identity and physical location wereverified at the time of this visit. Either the patient or their legal market survey representative has been informed of the risks and benefits of and alternatives to treatment through a remote evaluation and consents to proceed with the evaluation remotely. REVIEW OF SYSTEMS: General: No weight loss, malaise or fevers. Neurological: No history of TIA's, stroke, YARD COORDINATOR tumor, impaired sensorium, hemiplegia, paraplegia orquadraplegia. No [...] 452 QTC Calculation (Bazett) 420 Calculated P Erbacon 64 Calculated R Erbacon 23 Calculated T Erbacon 43 Impression SINUS BRADYCARDIA OTHERWISE NORMAL ECG Confirmed by SAHARA GARCIA M.D. ([id number]) on 08/29/2023 2:56:05 PM No results found for this or any previous visit (from the past 91018 hour(s)). Instructions Given to Patient: Instructions located in the after visit summary. Patient given verbal and written preop instructions and voices comprehension and compliance. SIGNATURE: FRANCISCO Burnett PATIENT NAME: Caitlin Elmore DATE: May 14, 2024 TIME: 11:09 AM PAGER/CONTACT #: documented in this encounterWvumedicine Barnesville Hospital08-06-2024 NoteHNO ID: [id number] Author: ?, ?, ? Service: ? Author Type: ? 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 Author [...] CLARICE Starr MD May 13, 2024 6:37 [facility]08-05-2024 History of Present illness Narrative* Ras [...] of nodes) Referred by: [place] Reviewed by: CLARCIE Starr MD May 13, 2024 6:37 PM documented in this encounterWvumedicine [facility] Hospital08-02-2024 Instructions* Patient Instructions* Chuck Jones MD - 05/10/2024 10:36 AM EDT Skip afternoon dose of hydrocortisone and come to the lab around 7:30 AM for a cortisol test. Take the hydrocortisone morning dose after blood draw. documented in this encounterWvumedicine [facility] Hospital08-02-2024 History of Present illness Narrative* Chuck Jones [...] last dose of chemo 12/21/2022 ( Total [place] dose= 200 mg/m2). Recurrence in the Lung [...] temperature. No rash. LABS RESULTS: Latest Ref Rn 09/26/2023 9:34 AM 10/20/2023 8:20 AM 11/14/2023 [...] months MD vidya Flores documented in this encounterWvumedicine [facility] Hospital07-31-2024 Telephone encounter Note * Telephone Encounter - Disha Salgado - 05/08/2024 2:[address] Elizabeth Borjas is referring CLARICE to Dr. Starr for EBUS. Thank you! [facility]07-31-2024 Miscellaneous Notes* Telephone Encounter - Disha Salgado - 05/08/2024 2:[address] Elizabeth Borjas is referring CLARICE to Dr. Starr for EBUS. Thank you! documented in this encounterWvumedicine [facility] Hospital07-31-2024 History of Present illness Narrative* Elizabeth Borjas MD - 05/08/2024 1:44 PM EDT Images from the original note were not included. Antonio PATIENT NAME: Caitlin [facility] NO.: [id number] ATTENDING PHYSICIAN: Elizabeth Borjas MD DATE OF [...] and last dose of chemo 12/21/2022 (Total [place] dose= 200 mg/m2) Recurrence in the Lung [...] Range Status 05/08/2024 7.5 % Final Abs Oliver Date Value Ref Range Status 05/08/2024 0.53 [...] -HPV-associated squamous cell carcinoma (see comment). KRAS p.Qes75Phc [id number]:c.35G>A 51.2% VAF, Depth 4267x, Ex2 PIK3CA p.Mno406Nzs NM_006218.2:c.1633G>A 21.7% VAF, Depth 5015x, Ex10 PDL-1 [...] and received a total of200 mg/m2 of [place] as well. PET with response 04/2023. CT [...] hilar node negative SBRT, refer to at [facility] as discussed in the TB Thank you for the kind referral. If there are any questions and or concerns please do not hesitate to contact me at [phone]. Elizabeth Borjas MD Hematology/Medical Oncology [facility] Servando Ramirez spent a total of 30 minutes on the date of the service which included preparing to see the patient, ttct-yj-pnme patient care, completing clinical documentation, obtaining and/or reviewing separately obtained history, performing a medically appropriate examination, counseling and educating the pat ient/family/caregiver, and ordering medications, tests, or procedures. CC: Julian Burton MD documented in this encounterWvumedicine [facility] Hospital07-26-2024 History of Present illness Narrative* Ariana Saldana RN - 05/03/2024 7:45 AM EDT Radiology [...] IV SITE APPEARANCE: Clean,Dry and Intact SIGNATURE: Ariana Saldana RN PATIENT NAME: Caitlin Elmore DATE: May [...] PATIENT PRESENTS WITH 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 RADIOLOGY DEPARTMENT: CT; Exam(s) Completed: Chest Abdomen Pelvis PERIPHERAL IV DATA: Site assessment: Clean,Dry and Intact, Site disposition Discontinued SIGNED BY: RT Ramila(R) May 03, 2024 7:36 AM documented in this encounterWvumedicine Barnesville Hospital06-20-2024 Telephone encounter Note * Telephone Encounter - Gabriella Metcalf RN - 03/28/2024 1:49 PM EDT Tiff- I see you have been working on this with AMISH patient. Wanted to keep you in the loop. I will also forward to front end software engineer to schedule. PSS: Can we now refer him to [facility] endocrinology? Gabriella Metcalf RN [facility] [facility] Miscellaneous Notes* Telephone Encounter - Gabriella Metcalf RN - 03/28/2024 1:49 PM EDT Tiff- I see you have been working on this with AMISH patient. Wanted to keep you in the loop. I will also forward to front end software engineer to schedule. PSS: Can we now refer him to [facility] end[facility]inology? Gabriella Metcalf RN documented in this encounterW[facility]06-18-[facility]24 History of Present illness Narrative* Lorena Scott RN - 03/26/2024 2:14 PM EDT Dean Gomez, PAC made aware of increased BUN/assistant store director. 500 ml NS IV orders given. Lorena Scott RN documented in this encounterWvumedicine [facility]06-18-2024 Nurse Note* Dorys Matt MA - 03/26/2024 1:35 PM EDT Patient is getting completely exhausted when he works x3-4 weeks. Patient is getting headaches in back of head has happened 3-4x it is a sharp pain lasting for about 5 seconds. Dorys Dutton MA [facility]06-18-2024 Nurse Note* Dorys Dutton MA - 03/26/2024 1:35 PM EDT Patient is getting completely exhausted when he works x3-4 weeks. Patient is getting headaches in back of head has happened 3-4x it is a sharp pain lasting for about 5 seconds. Dorys Dutton MA documented in this encounterWvumedicine [facility]06-18-2024 History of Present illness Narrative* Tremaine Gomez PA-C - 03/26/2024 1:29 PM EDT Images from the original note were not included. Racic PATIENT NAME: [facility] NO.: [id number] ATTENDING PHYSICIAN: Elizabeth Borjas MD DATE OF [...] and last dose of chemo 12/21/2022 (Total [place] dose= 200 mg/m2). Recurrence in the Lung [...] Range Status 03/26/2024 10.1 % Final Abs Oliver Date Value Ref Range Status 03/26/2024 0.78 [...] -HPV-associated squamous cell carcinoma (see comment). KRAS p.[id number] NM_[id number]:c.35G>A 51.2% VAF, Depth 4267x, Ex2 PIK3CA p.[id number] NM_006218.2:c.1633G>A 21.7% VAF, Depth 5015x, Ex10 PDL-1 [...] and received a total of200 mg/m2 of [place] as well. PET with response 04/2023. CT [...] which included preparing to see the patient, fxlh-yx-wehc patient care, completing clinical documentation, performing a medically appropriate examination, counseling and educating the patient/family/caregiver, ordering medications, tests, or p rocedures, independently interpreting results (not separately reported), and communicating results to the patient/family/caregiver. documented in this encounterWvumedicine [facility]06-04-2024 Telephone encounter Note * Telephone Encounter - Dorys Dutton MA - 03/12/2024 12:51 PM EDT Patient has an appt on 03/26/24. Would you like labs, if so place orders. Dorys Dutton MA [facility]06-04-2024 Miscellaneous Notes* Telephone Encounter - Dorys Matt MA - 03/12/2024 12:51 PM EDT Patient has an appt on 03/26/24. Would you like labs, if so place orders. Dorys Dutton MA documented in this encounterWvumedicine [facility]03-26-2024 History of Present illness Narrative* Whitney Hallman APRN.SHERRIE - 01/02/2024 9:29 AM EDT Images from the original note were not included. Antonio PATIENT NAME: Caitlin Elmore [facility] NO.: [id number] ATTENDING PHYSICIAN: Elizabeth Borjas MD DATE OF [...] and last dose of chemo 12/21/2022 (Total [place] dose= 200 mg/m2). Recurrence in the Lung [...] Range Status 01/02/2024 15.8 % Final Abs Oliver Date Value Ref Range Status 01/02/2024 0.71 [...] -HPV-associated squamous cell carcinoma (see comment). KRAS p.Ojk75Lit NM_033360.2:c.35G>A 51.2% VAF, Depth 4267x, Ex2 PIK3CA p.[id number] NM_006218.2:c.1633G>A 21.7% VAF, Depth 5015x, Ex10 PDL-1 [...] and received a total of200 mg/m2 of [place] as well. PET with response 04/2023. CT [...] do not hesitate to contact Elizabeth Borjas [facility] [phone]. Whitney Hallman APRN.SHERRIE Hematology/Medical Oncology [facility] CC: Julian Burton MD I spent a total of 30 minutes on the date of the service which included preparing to see the patient, ymhf-qr-yyzt patient care, completing clinical documentation, obtaining and/or reviewing separately obtained history, performing a medically appropriate examination, counseling and educating the pat ient/family/caregiver, ordering medications, tests, or procedures, independently interpreting results (not separately reported), and communicating results to the patient/family/caregiver. documented in this encounterWvumedicine [facility]03-06-2024 Miscellaneous Notes* Telephone Encounter - Chiqui Modi RN - 12/13/2023 8:18 AM EST Pt notified and would like the script to go to [facility] in [place]. Please sign pending script Chiqui Modi RN * Telephone Encounter - Chiqui Modi RN - 12/13/2023 8:12 AM EST ----- Message from Elizabeth Borjas MD sent at 12/12/2023 8:11 PM EST ----- Please have patientstart synthroid at 50 mcg/day documented in this encounterWvumedicine [facility]03-05-2024 History of Present illness Narrative* Elizabeth Borjas MD - 12/12/2023 10:01 AM EST Images from the original note were not included. Racic PATIENT NAME: Caitlin Elmore CLINIC NO.: [id number] ATTENDING PHYSICIAN: Elizabeth Borjas MD DATE OF [...] and last dose of chemo 12/21/2022 (Total [place] dose= 200 mg/m2) Recurrence in the Lung [...] Range Status 12/12/2023 10.7 % Final Abs Oliver Date Value Ref Range Status 12/12/2023 0.50 [...] -HPV-associated squamous cell carcinoma (see comment). KRAS p.Gdy10Xay NM_033360.2:c.35G>A 51.2% VAF, Depth 4267x, Ex2 PIK3CA p.[id number] NM_006218.2:c.1633G>A 21.7% VAF, Depth 5015x, Ex10 PDL-1 [...] and received a total of200 mg/m2 of [place] as well. PET with response 04/2023. CT [...] do not hesitate to contact me at [phone]. Elizabeth Borjas MD Hematology/Medical Oncology [facility] spent a total of 30 minutes on the date of the service which included preparing to see the patient, etua-xn-mldc patient care, completing clinical documentation, obtaining and/or reviewing separately obtained history, performing a medically appropriate examination, counseling and educating the pat ient/family/caregiver, and ordering medications, tests, or procedures. CC: Julian Burton MD documented in this encounterWvumedicine [facility]03-01-2024 History of Present illness Narrative* Kayy Kwon, RT(R) - 12/08/2023 7:45 AM EST Radiology [...] PATIENT PRESENTS WITH 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 RADIOLOGY DEPARTMENT: CT; Exam(s) Completed: Chest Abdomen Pelvis With IV and Oral contrast PERIPHERAL IV DATA: Site assessment: Clean,Dry and Intact, Site disposition Discontinued SIGNED BY: RT Ramila(R) December 08, 2023 8:27 AM * Ariana Saldana RN - 12/08/2023 7:45 AM EST Radiology [...] IV SITE APPEARANCE: Clean,Dry and Intact SIGNATURE: Ariana Saldana RN PATIENT NAME: Caitlin Elmore DATE: December 08, 2023 TIME: 8:34 AM documented in this encounterWvumedicine [facility]02-09-2024 History of Present illness Narrative* Enoch Brennan MD - 11/17/2023 1:30 PM EST Subjective [...] in neck Nocturia Personal history of irradiation [id number] Tongue cancer (CMS/HCC) Past Surgical History: Procedure Laterality Date ADENOIDECTOMY 1975 LARYNGOSCOPY 10/18/2022 w/ Anu pruett MASTOID SURGERY TONSILLECTOMY 1973 TYMPANOSTOMY TUBE PLACEMENT 1973 No Known Allergies [...] Monthly appts till 10/2024 documented in this encounterKindred [id number] Telephone encounter Note* Telephone Encounter - Ariana Saldana RN - 11/15/2023 2:16 PM EST Please sign pended Cre for upcoming CT-pt on nephrotoxic chemo. Thank You! Ariana Saladna RN [facility]02-07-2024 Miscellaneous Notes* Telephone Encounter - Ariana Saldana RN - 11/15/2023 2:16 PM EST Please sign pended Cre for upcoming CT-pt on nephrotoxic chemo. Thank You! Ariana Saldana RN documented in this encounterWvumedicine [facility]02-06-2024 History of Present illness Narrative* Elizabeth Borjas MD - 11/14/2023 9:26 AM EST Images from the original note were not included. Racic PATIENT NAME: [facility] NO.: [id number] ATTENDING PHYSICIAN: Elizabeth Borjas MD DATE OF [...] and last dose of chemo 12/21/2022 (Total [place] dose= 200 mg/m2) Recurrence in the Lung [...] any neuropathy as well. Going to a [facility] next week, PAST MEDICAL HISTORY Diagnosis Date [...] Range Status 11/14/2023 12.3 % Final Abs Oliver Date Value Ref Range Status 11/14/2023 0.63 [...] -HPV-associated squamous cell carcinoma (see comment). KRAS p.Kmn84Yea NM_033360.2:c.35G>A 51.2% VAF, Depth 4267x, Ex2 PIK3CA p.Jgs477Pyw NM_006218.2:c.1633G>A 21.7% VAF, Depth 5015x, Ex10 PDL-1 [...] and received a total of200 mg/m2 of [place] as well. PET with response 04/2023. CT [...] do not hesitate to contact me at [phone]. Elizabeth Borjas MD Hematology/Medical Oncology [facility] spent a total of 30 minutes on the date of the service which included preparing to see the patient, zhch-nk-kzmw patient care, completing clinical documentation, obtaining and/or reviewing separately obtained history, performing a medically appropriate examination, counseling and educating the pat ient/family/caregiver, and ordering medications, tests, or procedures. CC: Julian Burton MD documented in this encounterWvumedicine [facility]12-19-2023 History of Present illness Narrative* Chiqui Modi [...] Spent: 20 minutes REFERRAL (RECOMMENDATION): N/A Chiqui G Rian, RN documented in this encounterWvumedicine [facility]12-19-2023 History of Present illness Narrative* Elizabeth Borjas MD - 09/26/2023 9:48 AM EST Images from the original note were not included. Racic PATIENT NAME: Caitlin Elmroe [facility] NO.: [id number] ATTENDING PHYSICIAN: Elizabeth Borjas MD DATE OF [...] and last dose of chemo 12/21/2022 (Total [place] dose= 200 mg/m2) Recurrence in the Lung [...] Range Status 09/26/2023 10.3 % Final Abs Oliver Date Value Ref Range Status 09/26/2023 0.53 [...] -HPV-associated squamous cell carcinoma (see comment). KRAS p.Svz19Ima NM_033360.2:c.35G>A 51.2% VAF, Depth 4267x, Ex2 PIK3CA p.[id number] NM_006218.2:c.1633G>A 21.7% VAF, Depth 5015x, Ex10 PDL-1 [...] and received a total of200 mg/m2 of [place] as well. PET with response 04/2023. CT [...] do not hesitate to contact me at [phone]. Elizabeth Borjas MD Hematology/Medical Oncology [facility] spent a total of 30 minutes on the date of the service which included preparing to see the patient, crsc-th-vvpe patient care, completing clinical documentation, obtaining and/or reviewing separately obtained history, performing a medically appropriate examination, counseling and educating the pat ient/family/caregiver, and ordering medications, tests, or procedures. CC: Julian Burton MD documented in this encounterWvumedicine [facility]12-15-2023 History of Present illness Narrative* Ariana Saldana RN - 09/22/2023 9:00 AM EST Radiology [...] IV SITE APPEARANCE: Clean,Dry and Intact SIGNATURE: Ariana Saldana RN PATIENT NAME: Caitlin Elmore DATE: September [...] 920 PATIENT DISCHARGED TO: Ambulatory patient, left [place] department area. A Diagnostic radioactive procedure has taken place, with no further precautions necessary other than routine body substance precautions. More information regarding radiation safety can be found usingthis link: [email or web address] 20Diagnostic%20Nuclear%20Medicine%20Procedures.pdf SIGNATURE: RT Ramila(R) PATIENT NAME: Caitlin Elmore DATE: September 22, 2023 TIME: 9:27 AM PAGER/CONTACT #: documented in this encounterWvumedicine [facility] Hospital12-14-2023 Miscellaneous Notes* Telephone Encounter - Norm Richards - 09/21/2023 1:40 PM EST Pt is a New Start for 09/26. No labs are ordered. Norm Richards documented in this encounterWvumedicine [facility] Hospital12-06-2023 Miscellaneous Notes* Telephone Encounter - Ellyn Mullins - 09/13/2023 8:47 AM EST Patient has been scheduled and will receive these appointments on his [facility]. Thanks! Ellyn Mullins * Telephone Encounter - Poly Doran RN - 09/13/2023 8:16 AM EST Elizabeth Borjas MD I spoke to them tonight and will need education for chemo and start chemo right after his PET PSS: Please call pt to schedule per Amish note above. Thank you, Poly Doran RN documented in this encounterWvumedicine [facility]11-29-2023 History of Present illness Narrative* Elizabeth Borjas MD - 09/06/2023 3:01 PM EST Images from the original note were not included. Antonio PATIENT NAME: Caitlin Elmore [facility] NO.: [id number] ATTENDING PHYSICIAN: Elizabeth Borjas MD DATE OF [...] and last dose of chemo 12/21/2022 (Total [place] dose= 200 mg/m2) HPI: Caitlin Elmore is [...] Range Status 07/25/2023 7.7 % Final Abs Oliver Date Value Ref Range Status 07/25/2023 0.62 [...] and received a total of200 mg/m2 of [place] as well. PET with response 04/2023. CTY [...] do not hesitate to contact me at [phone]. Elizabeth Borjas MD Hematology/Medical Oncology [facility] spent a total of 30 minutes on the date of the service which included preparing to see the patient, slxv-jv-ijhg patient care, completing clinical documentation, obtaining and/or reviewing separately obtained history, performing a medically appropriate examination, counseling and educating the pat ient/family/caregiver, and ordering medications, tests, or procedures. CC: Julian Burton MD documented in this encounterWvumedicine [facility]11-22-2023 Nurse Note* Dinesh Velez RN - 08/30/2023 [...] (RECOMMENDATION): None Electronically Signed By: CHRIS Aguilar CRN In department: Bronchoscopy * Holly Delacruz RN [...] None REFERRAL (RECOMMENDATION): None documented in this encounterWvumedicine [facility] Hospital11-16-2023 History of Present illness Narrative* Carissa Alvarez [...] change in bowel habits GENITOURINARY: Not reviewed DIESEL INSTRUCTOR: NA MUSCULOSKELETAL: Negative for joint pain or [...] 09, 2023 12:59 PM documented in this encounterWvumedicine [facility]11-16-2023 History of Present illness Narrative* Nikko Doulgas RT(R) - 08/24/2023 9:15 AM EST Radiology [...] IV DATA: Not applicable SIGNED BY: RT Biju(Deidra) August 24, 2023 9:03 AM documented in this encounterWvumedicine [facility]11-10-2023 Miscellaneous Notes* Telephone Encounter - Alondra Pang [...] Thank you! Ellyn Mullins documented in this encounterWvumedicine [facility]11-07-2023 Miscellaneous Notes* Telephone Encounter - Ellyn Mullins - 08/15/2023 1:08 PM EST Images from the original note were not included. Per note from other encounter: Benjamin, See-MD Ra You; Pulm Bronch Scheduling Pool; Nay Maguire RN 16 minutes ago (12:49 PM) SL Mt, thanks for following up. 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 PATIENT NAME: Caitlin Elmore CLINIC NO.: [id number] ATTENDING PHYSICIAN: Elizabeth Borjas MD DATE OF [...] and last dose of chemo 12/21/2022 (Total [place] dose= 200 mg/m2) HPI: Caitlin Elmore is [...] Range Status 07/25/2023 7.7 % Final Abs Oliver Date Value Ref Range Status 07/25/2023 0.62 [...] and received a total of200 mg/m2 of [place] as well. PET with response 04/2023 2. PET positive in the prostate and he follows urology 3. CRI- Stable 4. Pulmonary nodule-growth on CT 07/2023, present at [facility] next week and assess next best plan, difficult to biopsy and we may need to repeat the imaging studies but the nodule are concverning Await TB recs and will determine follow up Thank you for the kind referral. If there are any questions and or concerns please do not hesitate to contact me at [phone]. Elizabeth Borjas MD Hematology/Medical Oncology [facility] spent a total of 30 minutes on the date of the service which included preparing to see the patient, enkr-ke-gdwm patient care, completing clinical documentation, obtaining and/or reviewing separately obtained history, performing a medically appropriate examination, counseling and educating the pat ient/family/caregiver, and ordering medications, tests, or procedures. CC: Julian Burton MD documented in this encounterWvumedicine [facility]10-10-2023 History of Present illness Narrative* Kayy Kwon RT(R) - 07/18/2023 1:15 PM EDT Radiology [...] IV DATA: Not applicable SIGNED BY: RT Ramila(Deidra) July 18, 2023 1:34 PM documented in this encounterWvumedicine [facility] Hospital09-29-2023 Hospital Discharge instructions Patient Education 07/07/2023 11:02:41 [...] treatment? Where to find more information The [place] [employer]: www.cancer.org [place] [employer]: www.auanet.org Contact a health care [...] provider. Document Revised: 03/21/2022 Document Reviewed: 03/21/2022 [employer]vier Patient Education 2022 [employer]. Follow Up Care 06/08/2023 10:56:53 With:Rafa KELLEY, RENU Ibarra, URO Address: When: Unknown [facility] 08-31-2023 Hospital Discharge instructions Patient Education 06/08/2023 [...] treatment? Where to find more information The [place] [employer]: www.cancer.org [place] [employer]: www.auanet.org Contact a health care [...] provider. Document Revised: 03/21/2022 Document Reviewed: 03/21/2022 [employer] Patient Education 2022 Dot VN Follow Up Care 05/31/2023 09:50:01 With:Rafa KELLEY, RENU Ibarra, URO Address: When: Unknown [facility] 07-11-2023 History of Present illness Narrative* Nino [...] disease. He continues close surveillance with Dr. Brennan. I will plan to see patient back in 3 months for further follow-up. Signed by: Nino Ivy MD cc: Julian Dowling [facility] [place] [phone] documented in this encounterWvumedicine Barnesville Hospital07-11-2023 History of Present illness Narrative* Elizabeth Borjas MD - 04/18/2023 2:22 PM EDT Images from the original note were not included. PATIENT NAME: Caitlin Elmore [facility] NO.: [id number] ATTENDING PHYSICIAN: Elizabeth Borjas MD DATE OF [...] and last dose of chemo 12/21/2022 (Total [place] dose= 200 mg/m2) HPI: Caitlin Elmore is [...] Range Status 04/14/2023 9.2 % Final Abs Oliver Date Value Ref Range Status 04/14/2023 0.44 [...] and received a total of200 mg/m2 of [place] as well. PET with response 04/2023 2. [...] do not hesitate to contact me at [phone]. Elizabeth Borjas MD Hematology/Medical Oncology [facility] spent a total of 30 minutes on the date of the service which included preparing to see the patient, enxo-nh-zrby patient care, completing clinical documentation, obtaining and/or reviewing separately obtained history, performing a medically appropriate examination, counseling and educating the pat ient/family/caregiver, and ordering medications, tests, or procedures. CC: Julian Burton MD documented in this encounterWvumedicine [facility]07-07-2023 History of Present illness Narrative* Ariana Saldana RN - 04/14/2023 8:00 AM EDT Radiology [...] IV SITE APPEARANCE: Clean,Dry and Intact SIGNATURE: Ariana Saldana RN PATIENT NAME: Caitlin Elmore DATE: April [...] 818 PATIENT DISCHARGED TO: Ambulatory patient, left [place] department area. A Diagnostic radioactive procedure has taken place, with no further precautions necessary other than routine body substance precautions. More information regarding radiation safety can be found usingthis link: [email or web address]%20Nuclear%20Medicine%20Procedures.[email or web address] SIGNATURE: RT Ramila(Deidra) PATIENT NAME: Caitlin Elmore DATE: April 14, 2023 TIME: 8:32 AM PAGER/CONTACT #: documented in this encounterWvumedicine [facility]ville Hospital05-25-2023 History of Present illness Narrative* Nino Ivy [...] this. He continues close surveillance with Dr. Brennan. Signed by: Nino Ivy MD cc: Julian Burton [address] [place] [phone] documented in this encounterWvumedicine [facility] Hospital04-21-2023 History of Present illness Narrative* Nino Ivy [...] Wt 83 kg (183 lb) SpO2 99% BMI24.36 kg/m KPS: 100 General Appearance: Alert and [...] from completion of treatment.Close surveillance with Dr. Brennan. Signed by: Nino Ivy MD cc: Julian Burton [address] [place] [phone] Nino Ivy [address] [place] [address] [place] [id number] documented in this encounterWvumedicine Barnesville Hospital04-14-2023 Miscellaneous Notes* Telephone Encounter - Chiqui Modi [...] schedule. Tremaine Gomez PA-C documented in this encounterWvumedicine Barnesville Hospital04-14-2023 History of Present illness Narrative* Tremaine Gomez PA-C - 01/20/2023 1:30 PM EDT Images from the original note were not included. PATIENT NAME: Caitlin Elmore [facility] NO.: [id number] ATTENDING PHYSICIAN: Elizabeth Borjas MD DATE OF [...] last dose of chemo 12/21/2022 ( Total [place] dose= 200 mg/m2) HPI: Mr. Elmore returns for follow up. Tongue pain is down to a 2-3 out of 10. Eating better. Drinking well. Taste is still off at times. Seeing Dr. Brennan next week. PAST MEDICAL HISTORY Diagnosis Date [...] Range Status 01/20/2023 14.5 % Final Abs Oliver Date Value Ref Range Status 01/20/2023 0.57 [...] and received a total of200 mg/m2 of [place] as well. 2. PET positive in the prostate area and will get PSA and will address after completion of therapy and will arrange for a referral 3. Arrange for PET scan in 10-12 weeks with a follow up 4. Follow up on patient's CMP from today 5. Anemia-likely chemo induced, monitor for now Tremaine Gomez PA-C CC: Julian Burton MD documented in this encounterWvumedicine Barnesville Hospital04-07-2023 History of Present illness Narrative* Gabriella Metcalf RN - 01/13/2023 12:05 PM EDT Tremaine Gomez would like to notify patient that his creat is better. Would like to see him in 1 weekwith labs and IVF. Encourage patient to take 60oz of water daily. Treatment nurse notified and willmake patient aware. documented in this encounterWvumedicine [facility]04-07-2023 History of Present illness Narrative* Tremaine Gomez PA-C - 01/13/2023 12:00 PM EDT Images from the original note were not included. PATIENT NAME: Caitlin Elmore [facility] NO.: [id number] ATTENDING PHYSICIAN: Elizabeth Borjas MD DATE OF [...] and last dose of chemo 12/21/2022 (Total [place] dose= 200 mg/m2) HPI: Mr. Elmore returns [...] Range Status 01/13/2023 11.8 % Final Abs Oliver Date Value Ref Range Status 01/13/2023 0.38 [...] and received a total of200 mg/m2 of [place] as well. 2. PET positive in the prostate area and will get PSA and will address after completion of therapy and will need referral 3. Follow nutrition and monitor weight 4. IV Hydration today, creatinine improved, encouraged oral hydration at home, see him next week for labs and follow up Tremaine Gomez PA-C CC: Julian Burton MD documented in this encounterWvumedicine [facility]04-06-2023 History of Present illness Narrative* G Alex [...] Patient will have continued follow-up with Dr. Brennan Signed by: Nino Ivy MD cc: Julian Burton [address] [place] [phone] Nino Ivy [address] [place] [address] [place] [id number] documented in this encounterWvumedicine [facility]ville Hospital04-05-2023 History of Present illness Narrative* Elizabeth Borjas MD - 01/11/2023 9:50 AM EDT Images from the original note were not included. PATIENT NAME: Caitlin Elmore [facility] NO.: [id number] ATTENDING PHYSICIAN: Elizabeth Borjas MD DATE OF [...] and last dose of chemo 12/21/2022 (Total [place] dose= 200 mg/m2) HPI: Caitlin Elmore is [...] Range Status 01/04/2023 13.0 % Final Abs Oliver Date Value Ref Range Status 01/04/2023 0.25 [...] and received a total of200 mg/m2 of [place] as well. 2. PET positive in the prostate area and will get PSA and will addres after completion of therapy and will need referral 3. Follow nutrition and monitor weight 4. IV Hydration today and also on Monday monitor creat Thank you for the kind referral. If there are any questions and or concerns please do not hesitate to contact me at [phone]. Elizabeth Borjas MD Hematology/Medical Oncology [facility] I spent a total of 30 minutes on the date of the service which included preparing to see the patient, haat-ev-swis patient care, completing clinical documentation, obtaining and/or reviewing separately obtained history, performing a medically appropriate examination, counseling and educating the pat ient/family/caregiver, and ordering medications, tests, or procedures. CC: Julian Burton MD documented in this encounterWvumedicine [facility]04-03-2023 Miscellaneous Notes* Telephone Encounter - Sang Cisneros RPh - 01/09/2023 8:52 AM EDT Pharmacist Refill [...] found Next appointment in this department: 01/11/2023 Eliazbeth Borjas MD The medication(s) fall under the [...] 0 Sang Cisneros RPh documented in this encounterWvumedicine [facility]ville Hospital03-31-2023 History of Present illness Narrative* Yadi Simms [...] Simms MS, RDN, LD documented in this encounterWvumedicine Barnesville Hospital03-31-2023 History of Present illness Narrative* G Alex Ivy MD - 01/06/2023 12:00 AM EDT [facility] Radiation Oncology Department RADIATION ONCOLOGY - COMPLETION [...] Staff Physician Alex Ivy M.D. / MARGIE 32:38 PM Electronically Signed cc: Dr. Josephine Borjas documented in this encounterWvumedicine Barnesville Hospital03-27-2023 History of Present illness Narrative* Nino Ivy [...] planned. Nino Ivy MD documented in this encounterWvumedicine [facility]ville Hospital03-27-2023 History of Present illness Narrative* Nino Ivy MD - 01/02/2023 12:00 AM EDT CAITLIN ELMORE [id number] 01/02/2023 [facility] Department of Radiation Oncology Treatment Planning Note Choose an item. Choose an item. Addendum to the 12/26/2022 treatment planning. Patient has lost weight sponsors had changed and doseanalysis showed a replan as necessary. Repeat CT was done and treatment planning position. Patient was recontoured every plan. Please see 12/26/2022 treatment planning. ]] Electronically Signed Alex Ivy M.D. :24 PM Addendum to the 12/26/2022 treatment planning. Patient has lost weight sponsors had changed and doseanalysis showed a replan as necessary. Repeat CT was done and treatment planning position. Patient was recontoured every plan. Please see 12/26/2022 treatment planning. documented in this encounterWvumedicine Barnesville Hospital03-24-2023 Miscellaneous Notes* Telephone Encounter - Tremaine Goemz PA-C - 12/30/2022 1:34 PM EDT Hydration [...] Thanks Janene Miller LPN documented in this encounterWvumedicine [facility]ville Hospital03-23-2023 Miscellaneous Notes* Telephone Encounter - Chiqui Modi [...] protocol. Chiqui Modi RN documented in this encounterWvumedicine [facility]ville Hospital03-20-2023 History of Present illness Narrative* Nino Ivy [...] planned. Nino Ivy MD documented in this encounterWvumedicine [facility]ville Hospital03-20-2023 History of Present illness Narrative* Yadi Simms [...] Simms MS, RDN, LD documented in this encounterWvumedicine [facility]ville Hospital03-20-2023 History of Present illness Narrative* Nino Ivy MD - 12/26/2022 12:00 AM EDT ELMORE CAITLIN [id number] 12/26/2022 [facility] Radiation Oncology Department SIMULATION NOTE DATE OF SIMULATION: 12/26/2022 THERAPIST: Chani Cerna MACHINE: DigitalAdvisor DIAGNOSIS: Malignant neoplasm of base of [id number] AREA: H&N CONTRAST: None Consent in Epic: [...] nursing. Electronically Signed Alex Ivy M.D. / NRS 33:42 PM documented in this encounterWvumedicine Barnesville Hospital03-20-2023 History of Present illness Narrative* Nino Ivy MD - 12/26/2022 12:00 AM EDT CAITLIN ELMORE [id number] 12/26/2022 [facility] Department of Radiation Oncology Treatment Planning Note [...] and/or ports and DVH. documented in this encounterWvumedicine Barnesville Hospital03-15-2023 History of Present illness Narrative* Elizabeth Borjas MD - 12/21/2022 10:23 AM EDT Images from the original note were not included. PATIENT NAME: Caitlin [facility] NO.: [id number] ATTENDING PHYSICIAN: Elizabeth Borjas MD DATE OF SERVICE: December 21, 2022 Some of the elements of this note have been copied from my previous progress note dated 11/29/2022. All the information has been reviewed carefully. Dear No referring provider defined for this encounter. here is an update on a follow up visit on male Cailtin Elmore at the clinic December 21, 2022 [...] Range Status 12/21/2022 9.4 % Final Abs Oliver Date Value Ref Range Status 12/21/2022 0.59 [...] do not hesitate to contact me at [phone]. Elizabeth Borjas MD Hematology/Medical Oncology [facility] spent a total of 30 minutes on the date of the service which included preparing to see the patient, cchn-bo-qtrm patient care, completing clinical documentation, obtaining and/or reviewing separately obtained history, performing a medically appropriate examination, counseling and educating the pat ient/family/caregiver, and ordering medications, tests, or procedures. CC: Julian Burton MD documented in this encounterWvumedicine [facility]ville Hospital03-14-2023 Miscellaneous Notes* Telephone Encounter - Chiqui Modi [...] No. 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 Chiqui Modi RN documented in this encounterWvumedicine [facility]ville Hospital03-13-2023 History of Present illness Narrative* Yadi Simms RD - 12/19/2022 2:22 PM EDT Oncology [...] Simms MS, RDN, LD documented in this encounterWvumedicine [facility]ville Hospital03-08-2023 History of Present illness Narrative* Lorena Scott RN - 12/14/2022 2:15 PM EST Pt requests to return on Tuesday 12/19 for IVF, GINETTE Mays gives ok to add to schedule for Mondayand IVF orders. Request sent to PSS to add to schedule. Lorena Scott RN documented in this encounterWvumedicine Barnesville Hospital03-08-2023 History of Present illness Narrative* Tremaine Gomze PA-C - 12/14/2022 9:00 AM EST Images from the original note were not included. PATIENT NAME: Caitlin Elmore [facility] NO.: [id number] ATTENDING PHYSICIAN: Elizabeth Borjas MD DATE OF [...] Range Status 12/14/2022 9.2 % Final Abs Oliver Date Value Ref Range Status 12/14/2022 0.43 [...] CC: Julian Burton MD documented in this encounterWvumedicine [facility] Hospital03-08-2023 History of Present illness Narrative* Yadi Simms RD - 12/14/2022 8:48 AM EST Oncology [...] Simms MS, RDN, LD documented in this encounterWvumedicine [facility] Hospital03-06-2023 History of Present illness Narrative* Yadi Simms RD - 12/12/2022 2:49 PM EST Oncology Nutrition Therapy Progress Note Attempted to see patient for scheduled follow up. Unable to see as patient had already left after radiation appointments. Will attempt to follow up with patient on Thursday 12/14 during chemotherapy. Signed by: Yadi Simms MS, RDN, LD documented in this encounterWvumedicine Barnesville Hospital03-06-2023 History of Present illness Narrative* Nino Ivy [...] planned. Nino Ivy MD documented in this encounterWvumedicine [facility]ville Hospital03-01-2023 History of Present illness Narrative* Tremaine Gomez PA-C - 12/07/2022 10:00 AM EST Images from the original note were not included. PATIENT NAME: [facility] NO.: [id number] ATTENDING PHYSICIAN: Elizabeth Borjas MD DATE OF [...] 0.60 (L) 1.00 - 4.00 k/uL Final Oliver% Date Value Ref Range Status 12/07/2022 11.1 % Final Abs Oliver Date Value Ref Range Status 12/07/2022 0.80 [...] CC: Julian Burton MD documented in this encounterWvumedicine [facility] Hospital02-28-2023 History of Present illness Narrative* Yadi Simms [...] Simms MS, TYSHAWN, RAYSA documented in this encounterWvumedicine [facility] Hospital02-28-2023 Miscellaneous Notes* Telephone Encounter - Chiqui Modi [...] protocol. Chiqui Modi RN documented in this encounterWvumedicine Barnesville Hospital02-27-2023 History of Present illness Narrative* Yadi Simms RD - 12/05/2022 2:15 PM EST Oncology Nutrition Therapy Reassessment Attempted to see patient for scheduled follow up. However, patient had already left after radiationappointments. Will have PSS team attempt to reach out to patient to schedule for another day this week. Signed by: Yadi Simms, MS, RDN, LD documented in this encounterWvumedicine Barnesville Hospital02-27-2023 History of Present illness Narrative* Nnio Ivy MD - 12/05/2022 2:10 PM EST [...] planned. Nino Ivy MD documented in this encounterWvumedicine [facility] Hospital02-21-2023 History of Present illness Narrative* Yadi Simms [...] Simms MS, TYSHAWN, RAYSA documented in this encounterWvumedicine [facility] Hospital02-20-2023 History of Present illness Narrative* Nino Ivy [...] planned. Nino Ivy MD documented in this encounterWvumedicine Barnes[facility] Hospital02-16-2023 Miscellaneous Notes* Telephone Encounter - Chiqui Modi [...] protocol. Chiqui Modi RN documented in this encounterWvumedicine Barnesville Hospital02-14-2023 Miscellaneous Notes* Telephone Encounter - Ariana Alvarado [facility] - 11/22/2022 4:59 PM EST 1st report of treatment-Benefit investigation complete. Spoke with patient's spouse Clarissa today. Patient is active with [employer], LOC 80%, $1500 deductible has $0 remaining, [...] they also have a cancer policy with [employer] to help with expenses. I sent her my contact info as well as phone [facility] ([facility]) that can help set payments up for them. She was appreciative of the information given. Est Reference #[id number] documented in this encounterWvumedicine Barnesville Hospital02-13-2023 History of Present illness Narrative* ROB Pritchard [...] as appropriate. KETURAH Pritchard documented in this encounterWvumedicine Barnesville Hospital02-13-2023 History of Present illness Narrative* Yadi Simms [...] Simms MS, RDN, LD documented in this encounterWvumedicine [facility] Hospital02-13-2023 History of Present illness Narrative* Tremaine Gomez PA-C - 11/21/2022 9:12 AM EST Images from the original note were not included. PATIENT NAME: Caitlin [facility] NO.: [id number] ATTENDING PHYSICIAN: Elizabeth Borjas MD DATE OF [...] 11/21/2022 1.47 1.00 - 4.00 k/uL Final Oliver% Date Value Ref Range Status 11/21/2022 8.0 % Final Abs Oliver Date Value Ref Range Status 11/21/2022 0.57 [...] to continue treatment. Tremaine Gomez PA-C CC: DO Alex Brice MD Douglas M Hoy, MD documented in this encounterWvumedicine Barnesville Hospital02-07-2023 Miscellaneous Notes* Telephone Encounter - Janene Miller [...] Update (Newest Message First) Nino Ivy MD [facility]; Chiqui Modi, RN; Elizabeth Borjas MD 23 minutesago (8:55 AM) Would like to start next week due to significant growth in saul disease over past 3 * Telephone Encounter - Janene Miller LPN - 11/15/2022 9:22 AM EST I notified RT Fiona that Dr. Ivy would like to start [...] Monday. Nino Ivy MD documented in this encounterWvumedicine [facility]ville Hospital02-07-2023 Miscellaneous Notes* Telephone Encounter - Suri Zaragoza - 11/15/2022 11:19 AM EST Patient coming in on Monday11/21/22 for treatment visit [facility]. Do you want labs? documented in this encounterWvumedicine Barnesville Hospital02-07-2023 Miscellaneous Notes* Telephone Encounter - Ellyn Mullins [...] him this morning as well. Thanks Chiqui Modi, ONELIA documented in this encounterWvumedicine Barnesville Hospital02-06-2023 Miscellaneous Notes* Telephone Encounter - Ellyn Mullins - 11/14/2022 12:22 PM EST Patient to begin XRT on 12/07. Per radiation, his chemo needs be scheduled after. Patient has been scheduled for RV and treatment same day. Ellyn Mullins * Telephone Encounter - Ellyn Mullins - 11/03/2022 11:07 AM EST ----- [...] SIM appt. Thanks Karina documented in this encounterWvumedicine [facility] Hospital02-06-2023 History of Present illness Narrative* Nino Ivy MD - 11/14/2022 12:00 AM EST CAITLIN ELMORE [id number] 11/14/2022 [facility] Radiation Oncology Department SIMULATION NOTE DATE OF SIMULATION: 11/14/2022 THERAPIST: Nicole Amin MACHINE: DigitalAdvisor DIAGNOSIS: Malignant neoplasm of base of [id number] AREA: H &N CONTRAST: IV 100CC omni [...] / CDT 34:53 PM documented in this encounterWvumedicine [facility]ville Hospital02-06-2023 History of Present illness Narrative* Zach Bryan MD - 11/14/2022 12:00 AM EST CAITLIN ELMORE [id number] 11/14/2022 [facility] Department of Radiation Oncology Treatment Planning Note [...] Bryan M.D. 38:55 AM documented in this encounterWvumedicine Barnesville Hospital02-03-2023 History of Present illness Narrative* Rehana Pulliam [...] 1348 PATIENT DISCHARGED TO: Ambulatory patient, left [place] department area. A Diagnostic radioactive procedure has taken place, with no further precautions necessary other than routine body substance precautions. More information regarding radiation safety can be found usingthis link: [email or web address] SIGNATURE: RADHA Mcgrath) PATIENT NAME: Caitlin Elmore DATE: November 11, 2022 TIME: 2:04 PM PAGER/CONTACT #: documented in this encounterWvumedicine Barnesville Hospital02-01-2023 History of Present illness Narrative* G Alex Ivy MD - 11/09/2022 3:26 PM EST Radiation Oncology - New Patient/Consult Note PATIENT NAME: Caitlin Elmore PATIENT : 1965 REQUESTING PROVIDER: Dr. Brennan Primary Site: Oropharynx/base of tongue Date of [...] Nino Ivy MD cc: Julian Burton MD [address] [place] [address] Enoch Brennan MD [address] [place] [id number] documented in this encounterWvumedicine Barnesville Hospital01-27-2023 History of Present illness Narrative* Yadi Simms, RD - 11/04/2022 8:50 AM EST Oncology [...] per day. 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 Reviewed with pt importance of adequate calorie/protein [...] Dosing Weight: 92.6 kg Estimated kilocalorie needs: 3618-4040 kilocalories determined by 25-30 kcal/kg Estimated protein needs: 93-111 grams determined by 1.0-1.2 g/kg Dosing weight Estimated fluid needs: ~5548-9368 milliliters based on 1 mL per kcal [...] with Patient: 15 minutes Signed by: Yadi Simms, , RDN, LD documented in this encounterWvumedicine Barnesville Hospital01-26-2023 History of Present illness Narrative* Chiqui Modi [...] here at our office. Chiqui Modi RN Flying Teacher Pre Chemo Patient identified by name and date of . YES Confirmed date and time for chemotherapy ? YES TBD Other appointments (labs, imaging) discussed? 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 Chiqui Modi RN * Melissa Santoyo [facility] - 11/03/2022 10:00 AM EST Images from the original note were not included. [facility] Department of Pharmacy Oncology Pharmacy Medication Education [...] accordingly. Allergies: Patient confirmed allergies documented in [facility] are correct: Yes Was medication education provided?: [...] Evon Santoyo RPh Pager: documented in this encounterWvumedicine Barnesville Hospital01-26-2023 Miscellaneous Notes* Telephone Encounter - Nancie Oro RPh - 11/03/2022 10:27 AM EST Ambulatory Pharmacy Prior Authorization Note Provider Intervention Required?: No- Pharmacy completed on your behalf. Rx Plan: Other: [facility]: Ondansetron HCl 8MG tablets Cover My Meds [place]: [id number] Determination: Approved Prior Authorization/Case #: [id number] Prior Authorization Expiration: 11/03/2023 Time to PA Submission in CMM: 15 min Time to PA Determination in CMM: Same day Additional Information: For questions relating to this submission, please contact [facility] at [phone] documented in this encounterWvumedicine Barnesville Hospital01-25-2023 History of Present illness Narrative* Elizabeth Borjas MD - 11/02/2022 10:54 AM EST Images from the original note were not included. PATIENT NAME: Caitlin Elmore [facility] NO.: [id number] ATTENDING PHYSICIAN: Elizabeth Borjas MD DATE OF SERVICE: November 02, [address] Nino Ivy thank you for referring Mr. Caitlin Elmoer for an opinion regarding BOT SCC,P16 positive . CHIEF COMPLAINT: I have throat cancer HPI: Caitlin Elmore is a 57 year old year old male with PMH sig for BPH and HTN, who is an active smoker who noticed a R sided neck node about 4 months ago and more recently developed sore throat. He was seen by Dr. Brennan and noted to have a R BOT [...] below. Elizabeth Borjas M.D. Hematology/Medical Oncology [facility] [phone] CC: DO Alex Brice MD Douglas M Hoy, MD documented in this encounterWvumedicine Barnesville Hospital01-24-2023 Miscellaneous Notes* Telephone Encounter - Janene Miller LPN - 11/01/2022 9:23 AM EST Information faxed as requested. Janene Miller LPN * Telephone Encounter - Janene Miller LPN - 10/31/2022 4:14 PM EST Please fax requested information to [phone]. Janene Miller LPN * Telephone Encounter - Janene Miller LPN - 10/31/2022 3:56 PM EST [facility] called back stating the dentist is requesting patient's diagnosis, recommended treatment, and field of radiation prior to signing off for radiation clearance. Please advise. Janene Miller LPN * Telephone Encounter - Janene Miller LPN - 10/31/2022 2:23 PM EST [facility] left a message requesting patient information including diagnosis and treatment abarca for CLARICE. I called back and left a message for someone to call back to get specific details of what they are looking for. Janene Miller LPN documented in this encounterWvumedicine Barnesville Hospital01-19-2023 Miscellaneous Notes* Telephone Encounter - Abbie Knowles - 10/27/2022 10:59 AM EST Patient scheduled for dental evaluation at [facility] on 10/31 @ 1:30. Called patient to inform of appointment date & time. Dental evaluation form also faxed to office. Abbie Knowles documented in this encounterWvumedicine Barnesville Hospital01-19-2023 Nurse Note* Janene Miller LPN - 10/27/2022 10:11 AM EST Radiation Therapy - Patient Education Note PATIENT NAME: Caitlin Elmore PATIENT October 27, 2022 [facility] FACILITY/LOCATION: [facility] READINESS TO LEARN Cognitive Ability: Alert and [...] by: Janene Miller LPN documented in this encounterWvumedicine Barnesville Hospital01-19-2023 History of Present illness Narrative* Nino Ivy MD - 10/27/2022 9:00 AM EST Radiation Oncology - New Patient/Consult Note PATIENT NAME: Caitlin Elmore PATIENT : 1965 REQUESTING PROVIDER: Dr. Brennan Primary Site: Oropharynx/base of tongue Date of [...] atypical cells. He was seen by Dr. Brennan.. Found to have a right base of [...] also may be a candidate for current [facility] head and neck study randomizing between weekly and every 3 week [place] during radiation. That he should Signed by: Nino Ivy MD cc: Julian Burton MD [address] [place] [id number] Enoch Brennan MD [address] [place] [id number] documented in this encounterWvumedicine Barnesville Hospital01-10-2023 NoteOPERATIVE NOTE OPERATION DATE: 10/18/2022 PRIMARY CARE PHYSICIAN: Julian Burton M.D. SURGEON: Enoch Brennan M.D. PREOPERATIVE DIAGNOSIS: Right neck mass and [...] room in good condition. CC: Alex Ivy M.D.[facility] [id number] Hospital Discharge instructions Patient Education 06/10/2022 08:42:02 [...] have oneof these risk factors: ?Being of -[place] descent. ?Having a family history of prostate [...] you: Are older than age 55. Are -[place]ani. Have a father, brother, or uncle who [...] 07/06/2018 Document Revised: 09/07/2018 Document Reviewed: 07/06/2018 [employer] Patient Education 2020 [employer]. Follow Up Care 05/30/2022 13:32:45 With:Shelly Cook, URL Address: When:Within 8 Month(s) Comments:F/U PSA (free and total), BPH, elevated PSA [facility] Evaluation + Plan note Future Appointments Appointment Date:02/10/2023 09:00:00 AM Scheduled Provider:Shelly Cook Location:[facility] Appointment Type:URO Office Visit Diagnostic Tests Pending * PSA Free & Total 06/10/22 [facility] Evaluation + Plan note Future Appointments Appointment Date:07/07/2023 10:00:00 AM Scheduled Provider:Norma Craig MD Location:[facility] Appointment Type:URO Office Visit Appointment Date:09/21/2023 09:00:00 AM Scheduled Provider:Norma Craig MD Location:[facility] Appointment Type:URO Office Visit [facility] Evaluation + Plan note Future Appointments Appointment Date:09/21/2023 09:00:00 AM Scheduled Provider:Norma Craig MD Location:[facility] Appointment Type:URO Office Visit Appointment Date:07/05/2024 10:00:00 AM Scheduled Provider:Norma Craig MD Location:[facility] Appointment Type:URO Office Visit Diagnostic Tests Pending * PSA Free & Total 07/07/23 [facility] Evaluation + Plan note Future Appointments Appointment Date:06/27/2025 03:00:00 PM Scheduled Provider:Norma Craig MD Location:[facility] Appointment Type:URO Office Visit Diagnostic Tests Pending * PSA Free & Total 06/28/24 [facility] Evaluation + Plan note Future Appointments Appointment Date:07/05/2024 10:00:00 AM Scheduled Provider:Norma Craig MD Location:[facility] Appointment Type:URO Office Visit [facility] Evaluation + Plan note Future Appointments Appointment Date:07/11/2025 10:30:00 AM Scheduled Provider: Location:[facility] Appointment Type:Urology CALL PAT FT Appointment Date:07/14/2025 09:30:00 AM Scheduled Provider: Location:[facility] Appointment Type:Urology FT Appointment Date:07/14/2025 09:30:00 AM Scheduled Provider: Location:.UROLOGY Appointment Type:US Prostate Urology (FT) Diagnostic Tests Pending * PSA Free & Total 06/27/25 Future Scheduled Tests Radiology* US Prostate, [facility] 07/14/25 [facility] Evaluation note* Diagnosis Oropharnyx cancer (HCC)- Primary [facility] 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 [facility] Diagnosis Oropharnyx cancer (HCC)- Primary [facility] Diagnosis Oropharnyx cancer (HCC)- Primary [facility]* Diagnosis Oropharnyx cancer (HCC)- Primary [facility]* Diagnosis Oropharnyx cancer (HCC)- Primary [facility]* Diagnosis Oropharnyx cancer (HCC)- Primary [facility] ClinicEvaluation note* Diagnosis Oropharnyx cancer (HCC)- Primary [facility] Diagnosis Oropharnyx cancer (HCC)- Primary [facility] Diagnosis Oropharnyx cancer (HCC)- Primary [facility] Diagnosis Oropharnyx cancer (HCC)- Primary [facility] Diagnosis Oropharnyx cancer (HCC)- Primary [facility] Diagnosis Oropharnyx cancer (HCC)- Primary [facility] Diagnosis Oropharnyx cancer (HCC)- Primary [facility] Diagnosis Oropharnyx cancer (HCC)- Primary [facility] Diagnosis Oropharnyx cancer (HCC)- Primary Esophagitis Esophagitis, unspecified [facility]* Diagnosis Oropharnyx cancer (HCC)- Primary [facility]* Diagnosis Oropharnyx cancer (HCC)- Primary [facility]* Diagnosis Oropharnyx cancer (HCC)- Primary Esophagitis Esophagitis, unspecified Elevated prostate specific antigen (PSA) [facility]* [...] cancer (HCC) documented in this encounter [facility] note* Diagnosis Oropharnyx cancer (HCC)- Primary documented in this encounter [facility]* Diagnosis Elevated prostate specific antigen (PSA)- Primary documented in this encounter [facility] note* Diagnosis Oropharnyx cancer (HCC)- Primary documented in this encounter [facility] note* Diagnosis Oropharnyx cancer (HCC)- Primary documented in this encounter [facility] note* Diagnosis Encounter for observation for other suspected diseases and conditions ruled out- Primary documented in this encounter [facility] noteNo assessment information availableK[facility] Work Phone: Evaluation note* Diagnosis Oropharnyx cancer (HCC)- Primary documented in this encounter [facility] note* Diagnosis Pulmonary nodule- Primary Solitary pulmonary nodule Preoperative examination Preoperative examination, unspecified documented in this encounter [facility] note* Diagnosis Pulmonary nodule Solitary pulmonary nodule Preoperative examination Preoperative examination, unspecified Bronchiolar disease Other diseases of trachea and bronchus documented in this encounter [facility] note* Diagnosis Lung nodule Solitary pulmonary nodule documented in this encounter [facility] note* 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 Neoplasm of unspecified nature of respiratory system documented in this encounter [facility] note* Diagnosis Pulmonary nodule- Primary Solitary pulmonary nodule 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 Preoperative examination Preoperative examination, unspecified documented in this encounter [facility] note* Diagnosis Oropharnyx cancer (HCC)- Primary [facility] Diagnosis Oropharnyx cancer (HCC)- Primary documented in this encounter [facility] note* Diagnosis Oropharnyx cancer (HCC)- Primary Malaise and fatigue Other malaise and fatigue documented in this encounter [facility] note* Diagnosis Oropharnyx cancer (HCC)- Primary documented [facility] this encounter [facility]* Diagnosis 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 documented in this encounter [facility] note* Diagnosis Oropharnyx cancer (HCC)- Primary Malaise and fatigue Other malaise and fatigue documented in this encounter [facility]* Diagnosis Oropharnyx cancer (HCC)- Primary Malaise and fatigue Other malaise and fatigue Thunderclap headache Headache documented in this encounter [facility] note* Diagnosis Oropharnyx cancer (HCC)- Primary Malaise and fatigue Other malaise and fatigue Thundercl[place] headache Headache documented in this encounter [facility] note* Diagnosis Oropharnyx cancer (HCC)- Primary documented in this encounter [facility] note* Diagnosis Oropharnyx cancer (HCC)- Primary documented in this encounter [facility] note* Diagnosis Acquired hypothyroidism- Primary Unspecified hypothyroidism Adrenal insufficiency (HCC) Glucocorticoid deficiency documented in this encounter [facility] note* Diagnosis Adenopathy- Primary Enlargement of lymph nodes documented in this encounter [facility] note* Diagnosis Pre-op evaluation- Primary Preoperative [...] seen in 05/08/24. documented in this encounter [facility]* Diagnosis Adenopathy Enlargement of lymph nodes Adenopathy Enlargement of lymph nodes [facility] Diagnosis Lung nodule- Primary Solitary pulmonary nodule Preoperative examination Preoperative examination, unspecified Adenopathy Enlargement of lymph nodes documented in this encounter [facility]* Diagnosis Pre-op evaluation- Primary Preoperative examination, [...] neoplasm of lung [facility] Diagnosis Pre-op evaluation- Primary Preoperative examination, [...] Oropharnyx cancer (HCC) [facility] Diagnosis Pre-op evaluation- Primary Preoperative examination, [...] Oropharnyx cancer (HCC) [facility] Diagnosis Pre-op evaluation- Primary Preoperative examination, [...] base of tongue documented [facility] this encounter [facility]* Diagnosis Pre-op evaluation- Primary Preoperative examination, [...] (HCC)- Primary documented in this encounter [facility] note* Diagnosis Oropharnyx cancer (HCC) Pre-op [...] CKD (HCC) documented in this encounter [facility] note* Diagnosis Pre-op evaluation- Primary Preoperative [...] Glucocorticoid deficiency documented in this encounter [facility] note* Diagnosis Neoplasm of lung Neoplasm [...] 3b CKD (HCC) documented [facility] this encounter [facility]* Diagnosis Oropharnyx cancer (HCC) Pre-op evaluation- [...] 3b CKD (HCC) documented in this encounter [facility]* Diagnosis Oropharnyx cancer (HCC) Pre-op evaluation- [...] 3b CKD (HCC) documented in this encounter [facility]* Diagnosis Pre-op evaluation- Primary Preoperative examination, [...] out- Primary documented in this encounter [facility] note* Diagnosis Pre-op evaluation- Primary Preoperative [...] Oropharnyx cancer (HCC) documented in this encounter [facility]* Diagnosis Pre-op evaluation- Primary Preoperative examination, [...] Oropharnyx cancer (HCC) documented in this encounter [facility]* Diagnosis Oropharnyx cancer (HCC) Pre-op evaluation- [...] CKD (HCC) documented in this encounter [facility] note* Diagnosis Pre-op evaluation- Primary Preoperative [...] respiratory system documented in this encounter [facility] note* Diagnosis Pre-op evaluation- Primary Preoperative [...] neoplasm of lung documented in this encounter [facility]* Diagnosis 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 [facility] Diagnosis Pre-op evaluation- Primary Preoperative examination, [...] cancer (HCC)- Primary documented in this encounter [facility]* Diagnosis Pre-op evaluation- Primary Preoperative examination, [...] malaise and fatigue documented in this encounter [facility]* Diagnosis Pre-op evaluation- Primary Preoperative examination, [...] Unspecified endocrine disorder documented in this encounter [facility]* Diagnosis 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) [facility]op evaluation- Primary Preoperative [...] base of tongue [facility] Diagnosis Pre-op evaluation- Primary Preoperative examination, [...] cancer (HCC)- Primary [facility]* Diagnosis 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 [facility] Pre-op evaluation- Primary Preoperative [...] neoplasm of lung [facility] Diagnosis Pre-op evaluation- Primary Preoperative examination, [...] of respiratory system [facility]* Diagnosis 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 documented in this encounter [facility]* Diagnosis Pre-op evaluation- Primary Preoperative examination, [...] Encounter for immunotherapy [facility] Diagnosis Pre-op evaluation- Primary Preoperative examination, [...] (HCC)- Primary documented in this encounter [facility] note* Diagnosis Pre-op evaluation- Primary Preoperative [...] cancer (HCC) documented in this encounter [facility] note* Diagnosis Pre-op evaluation- Primary Preoperative [...] (HCC)- Primary documented in this encounter [facility] note* Diagnosis Pre-op evaluation- Primary Preoperative [...] of tongue documented in this encounter [facility] note* Diagnosis Pre-op evaluation- Primary Preoperative [...] whether esophagitis present documented in this encounter [facility] note* Diagnosis Pre-op evaluation- Primary Preoperative [...] whether esophagitis present documented [facility] this [facility]* Diagnosis Pre-op evaluation- Primary Preoperative examination, [...] and fatigue documented in this encounter [facility] note* Diagnosis Pre-op evaluation- Primary Preoperative [...] lung (HCC)- Primary [facility] Diagnosis Pre-op evaluation- Primary Preoperative examination, [...] cancer (HCC) documented in this encounter [facility] note* Diagnosis Pre-op evaluation- Primary Preoperative [...] neoplasm of lung documented [facility] this [facility]* Diagnosis Pre-op evaluation- Primary Preoperative examination, [...] Oropharnyx cancer (HCC) documented [facility] this [facility]* Diagnosis Pre-op evaluation- Primary Preoperative examination, [...] cancer (HCC)- Primary documented [facility] this [facility]* Diagnosis Pre-op evaluation- Primary Preoperative examination, [...] malaise and fatigue [facility]* Diagnosis 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 [facility]-op evaluation- Primary Preoperative [...] Unspecified endocrine disorder documented [facility]* Diagnosis Pre-op evaluation- Primary Preoperative examination, [...] Dysphagia, oral phase [facility] Diagnosis Pre-op evaluation- Primary Preoperative examination, [...] cancer (HCC)- Primary [facility]* Diagnosis Pre-op evaluation- Primary Preoperative examination, [...] (HCC) Glucocorticoid deficiency [facility]* Diagnosis Pre-op evaluation- Primary Preoperative examination, [...] lung (HCC)- Primary [facility]* Diagnosis 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 [facility] Narrative No data available for this section [facility] Discharge instructions No data available for this section [facility] Progress note No data available for this section [facility] [employer] Reason for referral (narrative)* Diagnostic Procedure Only (Routine) - Pending ReviewSpecialtyDiagnoses / ProceduresReferred By ContactReferred To ContactMOLECULAR & FUNCTIONAL IMAGING Diagnoses Oropharnyx cancer (HCC) Procedures NM PET/CT SKULL-THIGH SUBSEQUENT PET IMAGING CT ATTENUATION SKULL BASE MID-THIGH Tremaine Gomez PA-C [address] [place] [address] Molecular & Functional Imaging [address] [place], [place] [id number] Referral IDStatusReasonStart DateExpiration DateVisits RequestedVisits [id number] Review Auto-Generated Referral / [facility] for referral (narrative)* Diagnostic Procedure Only (Routine) - Additional Clinical Info NeededSpecialtyDiagnoses / Procedures Referred By ContactReferred To ContactMOLECULAR & FUNCTIONAL IMAGING Diagnoses Neoplasm of lung Procedures NM PET/CT SKULL-THIGH INITIAL PET IMAGING CT ATTENUATION SKULL BASE MID-THIGH Elizabeth Borjas MD [address] [place] [id number] Molecular & Functional Imaging [address] [place], [place] [id number] Referral IDStatusReasonCicero DateExpiration DateVisits RequestedVisits [id number] Clinical Info Needed Auto-Generated Referral / [facility] for referral (narrative)* Outpatient Procedure (Routine) - New RequestSpecialtyDiagnoses / ProceduresReferred By ContactReferred To [facility] VASCULAR FLUSHING Diagnoses Adenopathy Procedures ECG COMPLETE ECG ROUTINE ECG W/LEAST 12 LDS W/I&R Ras Starr MD [address] [place] [address] [facility] [address] [place] [address] Ref[facility] DateExpiration DateVisits RequestedVisits [id number] Request Auto-Generated Referral / [facility] for referral (narrative)* Outpatient Procedure (Routine) - New RequestSpecialtyDiagnoses / ProceduresReferred By ContactReferred To 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) Procedures SPIROMETRY BASELINE ONLY SPMTRY W/VC EXPIRATORY MARCUS W/[place] MXML [place] [address] [place] [phone] [facility] [place] [address] [place] [address] Referral IDStatusReasonStart DateExpiration DateVisits RequestedVisits [id number] Request Auto-Generated Referral / [facility] for referral (narrative)* Diagnostic Procedure Only (Routine) - ClosedSpecialtyDiagnoses / ProceduresReferred By ContactReferred To ContactMOLECULAR & FUNCTIONAL IMAGING Diagnoses Neoplasm of lung Procedures NM PET/CT SKULL-THIGH INITIAL PET IMAGING CT ATTENUATION SKULL BASE MID-THIGH Elizabeth Borjas MD [address] [place] [phone] Molecular & Functional Imaging [address] [place] [address] Referral IDStatusReasonStart DateExpiration DateVisits RequestedVisits [id number] Auto-Generated Referral / [facility] for referral (narrative)* Diagnostic Procedure Only (Routine) - ClosedSpecialtyDiagnoses / ProceduresReferred By ContactReferred To ContactMOLECULAR & FUNCTIONAL IMAGING Diagnoses Oropharnyx cancer (HCC) Procedures NM PET/CT SKULL-THIGH SUBSEQUENT PET IMAGING CT ATTENUATION SKULL BASE MID-THIGH Tremaine Gomez PA-C [address] [place] [address] Molecular & Functional Imaging [address] [place] [address] Referral IDStatusReasonStart DateExpiration DateVisits RequestedVisits [id number] Auto-Generated Referral / [facility] for referral (narrative)* Diagnostic Procedure Only (Routine) - ClosedSpecialtyDiagnoses / ProceduresReferred By ContactReferred To ContactMOLECULAR & FUNCTIONAL IMAGING Diagnoses Oropharnyx cancer (HCC) Procedures NM PET/CT SKULL-THIGH INITIAL PET IMAGING CT ATTENUATION SKULL BASE MID-THIGH Nino Ivy MD [address] [place] [address] Molecular & Functional Imaging [address] [place] [address] Referral IDStatusReasonStart DateExpiration DateVisits RequestedVisits [id number] Auto-Generated Referral / [facility] for visit Narrative* Outpatient Procedure (Routine) - ClosedSpecialtyDiagnoses / ProceduresReferred By ContactReferred To Contact [facility] Diagnoses Adenopathy Procedures ECG COMPLETE ECG ROUTINE ECG W/LEAST 12 LDS W/I&R Ras Starr MD [address] [place] [address] [facility] [address] [place] [address] [place] [address] Referral IDStatusReasonCicero DateExpiration DateVisits RequestedVisits [id number] Auto-Generated Referral / [facility] for visit Narrative* [place] Prior Authorization (Routine) - AuthorizedSpecialtyDiagnoses / ProceduresReferred By ContactReferred To Contact Diagnoses Oropharnyx cancer (HCC) Procedures INJ PEMBROLIZUMAB Elizabeth Borjas MD [address] [facility] [place] [address] Phone: tel: fax: Hematology/Oncology 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) Procedures CT ABDOMEN W IVCON CT ABDOMEN W/CONTRAST Tayla Ellsworth MD [address] [place] [address] Phone: tel: fax: [facility] [place] [address] Referral IDStatusReasonStbattery park DateExpiration DateVisits RequestedVisits [id number] Auto-Generated Referral [facility] Reason for Referral SpecialtyDiagnoses / ProceduresReferred By ContactReferred To ContactCT IMAGING 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) Procedures CT ABDOMEN W IVCON CT ABDOMEN W/CONTRAST Tayla Ellsworth MD [address] [place] [address] [facility] [place] [address] Referral IDStatusReasonStart DateExpiration DateVisits RequestedVisits [id number] Review Auto-Generated Referral [id number] / ProceduresReferred By ContactReferred To ContactCT IMAGING Diagnoses Secondary malignant neoplasm of chest wall (HCC) Procedures CT CHEST W IVCON DIAGNOSTIC COMPUTED TOMOGRAPHY THORAX W/CONTRAST Tayla Ellsworth MD [address] [place] [address] [facility] [place] [address] Referral IDStatusReasonStart DateExpiration DateVisits RequestedVisits [id number] Auto-Generated Referral [id number] / ProceduresReferred By ContactReferred To ContactCT IMAGING Diagnoses Neoplasm of lung Procedures CT CHEST WO IVCON DIAGNOSTIC COMPUTED TOMOGRAPHY THORAX W/[place] [address] [place] [address] [address] [facility] [place] [address] Referral IDStatusReasonStart DateExpiration DateVisits RequestedVisits [id number] Auto-Generated Referral /[id number] / ProceduresReferred By ContactReferred To Contact Diagnoses 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) Procedures CT SIM PLANNING RADIATION ONCOLOGY THER RAD SIMULAJ-AIDED [place]ELD [place] [address] [place] [address] Referral IDStatusReasonStart DateExpiration DateVisits RequestedVisits [id number] Request PCP Requested Referral /[id number] / ProceduresReferred By ContactReferred To ContactRadiation Oncology Diagnoses Oropharnyx cancer (HCC) Procedures RAD/ONC CONSULT OFFICE/OUTPATIENT [facility] 60 MINUTES Elizabeth Borjas MD [address] [place] [address] Referral IDStatusReasonStart DateExpiration DateVisits RequestedVisits [id number] PCP Requested Referral /[id number] / ProceduresReferred By ContactReferred To ContactCT IMAGING Diagnoses Pulmonary nodule Preoperative examination Procedures CT CHEST WO IVCON DIAGNOSTIC COMPUTED TOMOGRAPHY THORAX W/O CNTElke Kern MD [address] [place] [address] Ct Imaging [place] [address] Referral IDStatusReasonStart DateExpiration DateVisits RequestedVisits [id number] Review Auto-Generated Referral /[id number] / ProceduresReferred By ContactReferred To [facility] Diagnoses Preoperative examination Procedures ECG COMPLETE ECG ROUTINE ECG W/LEAST 12 LDS W/I&R Elke Alexander MD [address] [place] [address] Heart [facility] [place] [address] Referral IDStatusReasonStart DateExpiration DateVisits RequestedVisits [id number] Review Auto-Generated Referral [id number] / ProceduresReferred By ContactReferred To ContactMR IMAGING Diagnoses Encounter for observation for other suspected diseases and conditions ruled out Procedures MRI PROSTATE WO/W IVCON MRI PELVIS W/O & W/CONTRAST MATERIAL Nino Ivy MD [address] [place] [address] [place] [address] Mr Imaging Referral IDStatusReasonStart DateExpiration DateVisits RequestedVisits [id number] Review Auto-Generated Referral /[id number] / ProceduresReferred By ContactReferred To ContactCT IMAGING Diagnoses Oropharnyx cancer (HCC) Procedures CT CHEST WO IVCON DIAGNOSTIC COMPUTED TOMOGRAPHY THORAX W/O Elizabeth Miller MD [address] [place] [address] [address] Referral IDStatusReasonStart DateExpiration DateVisits RequestedVisits [id number] Auto-Generated Referral [id number] / ProceduresReferred By ContactReferred To ContactUrology Diagnoses Elevated prostate specific antigen (PSA) Procedures CONSULT TO UROLOGY OFFICE/OUTPATIENT NEW HIGH MDM 60-74 MINUTES Tremaine Gomez PA-C [address] [place] [address] [place] [address] Referral IDStatusReasonStart DateExpiration DateVisits RequestedVisits [id number] PCP Requested Referral /[id number] / ProceduresReferred By ContactReferred To Contact Diagnoses Oropharnyx cancer (HCC) Procedures CT SIM PLANNING RADIATION ONCOLOGY THER RAD SIMULAJ-AIDED FIELD SETTING COMPLEX Nino Ivy MD [address] [place] [address] [place] [address] Referral IDStatusReasonStart DateExpiration DateVisits RequestedVisits [id number] Review PCP Requested Referral /[id number] / ProceduresReferred By ContactReferred To ContactOncology Diagnoses Oropharnyx cancer (HCC) Procedures CONSULT TO ONCOLOGY OFFICE/OUTPATIENT [facility] 60-74 MINUTES Nino Ivy MD [address] [place] [address] [place] [address] Referral IDStatusReasonCicero DateExpiration DateVisits RequestedVisits [id number] PCP Requested Referral [id number] / ProceduresReferred By ContactReferred To ContactMOLECULAR & FUNCTIONAL IMAGING Diagnoses Oropharnyx cancer (HCC) Procedures NM PET/CT SKULL-THIGH INITIAL PET IMAGING CT ATTENUATION SKULL BASE MID-THIGH Nino Ivy MD [address] [place] [address] [place] [address] Molecular & Functional Imaging [address] [place] [address] Ref[facility]Status[facility] DateExpiration DateVisits RequestedVisits [id number] Clinical Info Needed Auto-Generated Referral Medications Administered Section Medication OrderMAR ActionAction DateDoseRateSite CISplatin 86 mg in NaCl 0.9% 1,136 [...] than 0.4 mg/mL. Protect from Light. New Bag/Syringe/Viqjxz0611/21/2022 11:58 AM EST86 mg dexAMETHasone 10 mg/NS 50 mL (PYXIS) 10 mg ivpb (DECADRON) 10 mg, INTRAVENOUS, ONCE, 1 dose, On Mon11/21/22 at 1100, Refrigerate. New Bag/Syringe/Gqaahn1511/21/2022 11:03 AM EST10 mg fosaprepitant 150 mg in NaCl 0.9% 250 mL (EMEND) 150 mg, INTRAVENOUS, Administer over 30 Minutes, ONCE, 1 dose, On Mon11/21/22 at 1100, Approximate Total Volume = 280 mL New Bag/Syringe/Etvajr0811/21/2022 11:23 AM EJS215 mg NaCl 0.9% 500 mL INTRAVENOUS, at 500 mL/hr, Administer over 1 Hours, ONCE, 1 dose, On Mon11/21/22 at 1100 New Bag/Syringe/Xwraps1211/21/2022 1:02 PM BIJ537 mL/hr NaCl 0.9% iv bolus 1,000 mL 1,000 mL, INTRAVENOUS, at 500 mL/hr, Administer over 2 Hours, ONCE, 1 dose, On Mon11/21/22 at 1100 New Bag/Syringe/Gtclci3711/21/2022 10:10 AM EST1,000 mL500 mL/hr ondansetron (PF) 8 mg injection (ZOFRAN) 8 mg, INTRAVENOUS, ONCE, 1 dose, On Mon11/21/22 at 1100 Given11/21/2022 11:03 AM EST8 mgMedication OrderMAR ActionAction DateDoseRate Site CISplatin 86 mg in NaCl 0.9% [...] than 0.4 mg/mL. Protect from Light. New Bag/Syringe/Fxddfq3511/29/2022 1:46 PM EST86 mg dexAMETHasone 10 mg/NS 50 mL (PYXIS) 10 mg ivpb (DECADRON) 10 mg, INTRAVENOUS, ONCE, 1 dose, On Mon11/29/22 at 1200, Refrigerate. New Bag/Syringe/Bhjccu8811/29/2022 12:05 PM EST10 mg fosaprepitant 150 mg in NaCl 0.9% 250 mL (EMEND) 150 mg, INTRAVENOUS, Administer over 30 Minutes, ONCE, 1 dose, On Mon11/29/22 at 1200, Approximate Total Volume = 280 mL New Bag/Syringe/Ihgcjj8211/29/2022 12:24 PM JON046 mg NaCl 0.9% 500 mL INTRAVENOUS, at 500 mL/hr, Administer over 1 Hours, ONCE, 1 dose, On Mon11/29/22 at 1200 New Bag/Syringe/Lvanfl1411/29/2022 3:04 PM RYM655 mL/hr NaCl 0.9% iv bolus 1,000 mL 1,000 mL, INTRAVENOUS, at 500 mL/hr, Administer over 2 Hours, ONCE, 1 dose, On Mon11/29/22 at 1200 New Bag/Syringe/Ydbrvf4611/29/2022 11:55 AM EST1,000 mL500 mL/hr ondansetron (PF) 8 mg injection (ZOFRAN) 8 mg, INTRAVENOUS, ONCE, 1 dose, On Mon11/29/22 at 1200 Given11/29/2022 12:05 PM EST8 mgMedication OrderMAR ActionAction DateDoseRate Site CISplatin 86 mg in NaCl 0.9% [...] than 0.4 mg/mL. Protect from Light. New Bag/Syringe/Waxnxq4812/07/2022 12:51 PM EST86 mg dexAMETHasone 10 mg/NS 50 mL (PYXIS) 10 mg ivpb (DECADRON) 10 mg, INTRAVENOUS, ONCE, 1 dose, On Mon12/07/22 at 1130, Refrigerate. New Bag/Syringe/Pqnfie4012/07/2022 11:32 AM EST10 mg fosaprepitant 150 mg in NaCl 0.9% 250 mL (EMEND) 150 mg, INTRAVENOUS, Administer over 30 Minutes, ONCE, 1 dose, On Mon12/07/22 at 1130, Approximate Total Volume = 280 mL New Bag/Syringe/Gquyne5312/07/2022 12:16 PM FTJ419 mg NaCl 0.9% 500 mL INTRAVENOUS, at 500 mL/hr, Administer over 1 Hours, ONCE, 1 dose, On Mon12/07/22 at 1130 New Bag/Syringe/Kzcqey8912/07/2022 2:00 PM NVL560 mL/hr NaCl 0.9% iv bolus 1,000 mL 1,000 mL, INTRAVENOUS, at 999 mL/hr, Administer over 1 Hours, ONCE, 1 dose, On Mon12/07/22 at 1130 New Bag/Syringe/Xyojnn9812/07/2022 11:00 AM EST1,000 mL999 mL/hr ondansetron (PF) 8 mg injection (ZOFRAN) 8 mg, INTRAVENOUS, ONCE, 1 dose, On Mon12/07/22 at 1130 Given12/07/2022 11:30 AM EST8 mgMedication OrderMAR ActionAction DateDoseRate Site CISplatin 86 mg in NaCl 0.9% [...] than 0.4 mg/mL. Protect from Light. New Bag/Syringe/Lejest4812/14/2022 11:33 AM EST86 mg dexAMETHasone 10 mg/NS 50 mL (PYXIS) 10 mg ivpb (DECADRON) 10 mg, INTRAVENOUS, ONCE, 1 dose, On Mon12/14/22 at 0930, Refrigerate. New Bag/Syringe/Ztyqqj4312/14/2022 10:24 AM EST10 mg fosaprepitant 150 mg in NaCl 0.9% 250 mL (EMEND) 150 mg, INTRAVENOUS, Administer over 30 Minutes, ONCE, 1 dose, On Mon12/14/22 at 0930, Approximate Total Volume = 280 mL New Bag/Syringe/Zfrmrz3312/14/2022 10:45 AM IQK964 mg NaCl 0.9% 500 mL INTRAVENOUS, at 500 mL/hr, Administer over 1 Hours, ONCE, 1 dose, On Mon12/14/22 at 0930 New Bag/Syringe/Jkudyw9712/14/2022 12:53 PM LJI675 mL/hr NaCl 0.9% iv bolus 1,000 mL 1,000 mL, INTRAVENOUS, at 500 mL/hr, Administer over 2 Hours, ONCE, 1 dose, On Mon12/14/22 at 0930 New Bag/Syringe/Wwzcir2412/14/2022 9:39 AM EST1,000 mL500 mL/hr ondansetron (PF) 8 mg injection (ZOFRAN) 8 mg, INTRAVENOUS, ONCE, 1 dose, On Mon12/14/22 at 0930 Given12/14/2022 10:24 AM EST8 mgMedication OrderMAR ActionAction DateDoseRate Site NaCl 0.9% 1,000 mL INTRAVENOUS, at 999 mL/hr, Administer over 1 Hours, ONCE, 1 dose, On Mon12/15/22 at 1430 New Bag/Syringe/Acxrep2312/15/2022 2:20 PM UCN290 mL/hrMedication OrderMAR Action Action DateDoseRateSite NaCl 0.9% 1,000 mL INTRAVENOUS, at 999 mL/hr, Administer over 1 Hours, ONCE, 1 dose, On Mon12/19/22 at 1430 New Bag/Syringe/Lzxatp3312/19/2022 2:31 PM HEV117 mL/hr ondansetron (PF) 8 mg injection (ZOFRAN) 8 mg, INTRAVENOUS, ONCE, 1 dose, On Mon12/19/22 at 1430, Administer 30 minutes prior to infusion. Given12/19/2022 2:53 PM EDT8 mgMedication OrderMAR ActionAction DateDoseRateSite CISplatin 86 mg in NaCl 0.9% 1,136 mL (PLATINOL) 86 mg (40 mg/m2 2.15 m2 Treatment Plan BSA from Recorded weight), INTRAVENOUS, Administer over 1 Hours, ONCE, 1 dose, On Mon12/21/22 at 1100, EXP:12/22/2022@1715 Hazardous Chemotherapy Drug: Use appropriate PPE. Antineoplastic Vesicant for concentrations greater than 0.4 mg/mL - Antineoplastic Irritant for concentrations less than 0.4 mg/mL. Protect from Light. New Bag/Syringe/Teqzvk9012/21/2022 12:24 PM EDT86 mg dexAMETHasone 10 mg/NS 50 mL (PYXIS) 10 mg ivpb (DECADRON) 10 mg, INTRAVENOUS, ONCE, 1 dose, On Mon12/21/22 at 1100, Refrigerate. New Bag/Syringe/Jxbhsb6012/21/2022 11:51 AM EDT10 mg fosaprepitant 150 mg in NaCl 0.9% 250 mL (EMEND) 150 mg, INTRAVENOUS, Administer over 30 Minutes, ONCE, 1 dose, On Mon12/21/22 at 1100, Approximate Total Volume = 280 mL New Bag/Syringe/Eqhxpa2912/21/2022 11:20 AM BMX369 mg NaCl 0.9% 500 mL INTRAVENOUS, at 500 mL/hr, Administer over 1 Hours, ONCE, 1 dose, On Mon12/21/22 at 1100 New Bag/Syringe/Punozq7412/21/2022 1:40 PM JLN219 mL/hr NaCl 0.9% iv bolus 1,000 mL 1,000 mL, INTRAVENOUS, at 500 mL/hr, Administer over 2 Hours, ONCE, 1 dose, On Mon12/21/22 at 1100 New Bag/Syringe/Qukyza5812/21/2022 10:40 AM EDT1,000 mL500 mL/hr ondansetron (PF) 8 mg injection (ZOFRAN) 8 mg, INTRAVENOUS, ONCE, 1 dose, On Mon12/21/22 at 1100 12/21/2022 11:13 AM EDT8 mgMedication OrderMAR ActionAction DateDoseRate Site NaCl 0.9% 1,000 mL INTRAVENOUS, at 999 mL/hr, Administer over 1 Hours, ONCE, 1 dose, On Mon12/30/22 at 1500 New Bag/Syringe/Epjmai2912/30/2022 2:01 PM KRG432 mL/hr ondansetron (PF) 8 mg injection (ZOFRAN) 8 mg, INTRAVENOUS, ONCE, 1 dose, On Mon12/30/22 at 1500, Administer 30 minutes prior to infusion. Given12/30/2022 2:48 PM EDT8 mgMedication OrderMAR ActionAction DateDoseRateSite NaCl 0.9% 1,000 mL INTRAVENOUS, at 999 mL/hr, Administer over 1 Hours, ONCE, 1 dose, On Mon01/11/23 at 1030 New Bag/Syringe/Vagzcr0201/11/2023 10:37 AM CGV108 mL/hrMedication OrderMAR Action Action DateDoseRateSite NaCl 0.9% 1,000 mL INTRAVENOUS, at 999 mL/hr, Administer over 1 Hours, ONCE, 1 dose, On Mon01/13/23 at 1230 New Bag/Syringe/Rgbfmu4201/13/2023 12:32 PM IDR062 mL/hr Summary Purpose Family History No Family History Records Found No data available for this section No Family History Records FoundNo Family History Records Found No data available for this section No data available for this section No data available for this section No Family History Records FoundNo Family History Records FoundNo Family History Records Found Advance Directives No Advanced Directives Records Found Advance Directive Response Recorded Date/ Time Advance Directives No May 25, 2020 8:06am Chief Complaint and Reason for Visit Chief Complaint Z03.89 Chief Complaint G44.53 Additional Source Comments Care Team (unrecognized sect ion and content) Team MemberRelationshipSpecialtyStart DateEnd Date Julian Burton MD [address] [place] [id number] PCP - Generalmily Medicine10/26/22Team MemberRelationshipSpecialtyStart DateEnd Date Julian Burton MD [address] [place] [address] PCP - Generalmily Medicine10/26/22Team MemberRelationshipSpecialtyStart DateEnd Date Julian Burton MD [address] [place] [address] PCP - GeneralFamily Medicine10/26/22Team MemberRelationshipSpecialtyStart DateEnd Date Julian Burton MD [address] [place] [address] PCP - GeneralFamily Medicine10/26/22Team MemberRelationshipSpecialtyStart DateEnd Date Julian Burton MD [address] [facility] [place] [address] PCP - GeneralFamily Medicine10/26/22Team MemberRelationshipSpecialtyStart DateEnd Date Julian Burton MD [address] [place] [address] PCP - GeneralFamily Medicine10/26/22Team MemberRelationshipSpecialtyStart DateEnd Date Julian Burton MD [address] [facility] [place] [address] PCP - Generalmily Medicine10/26/22Team MemberRelationshipSpecialtyStart DateEnd Date Julian Burton MD [address] [place] [address] PCP - GeneralFamily Medicine10/26/22 Yadi Simms, RD [address] [place] [address] Registered DietitianNutrition11/04/22Team MemberRelationshipSpecialtyStart Date End Date Julian Burton MD [address] [facility] [place] [address] PCP - GeneralFamily Medicine10/26/22 Yadi Simms, RD [address] [facility] [place] [place] [address] Registered DietitianNutrition11/04/22Te MemberRelationshipSpecialtyStart Date End Date Julian Burton MD [address] [facility] [place] [address] PCP - GeneralFamily Medicine10/26/22 Yadi Simms, RD [address] [place] [address] Registered DietitianNutrition11/04/22Team MemberRelationshipSpecialtyStart Date End Date Julian Burton MD [address] [place] [address] PCP - GeneralFamily Medicine10/26/22 Yadi Simms, APRIL [address] [facility] [place] [place] [address] Registered DietitianNutrition11/04/22Te MemberRelationshipSpecialtyStart Date End Date Julian Burton MD [address] [place] [address] PCP - GeneralFamily Medicine10/26/22 Yadi Simms, RD [address] [facility] [facility] [place] [place] [address] Registered DietitianNutrition11/04/22 Chiqui Modi, RN [address] [facility] [facility] [place] [place] [address] Specialty Care CoordinatorHematology/Oncology11/15/22 Elizabeth Borjas MD [address] [place] [address] PhysicianHematology/Oncology11/15/22 Tremaine Gomez, PA-C [address] [facility] [facility] [place] [place] [address] Physician AssistantHematology/Oncology11/15/22Te MemberRelationshipSpecialty Start DateEnd Date Julian Burton MD [address] [place] [address] PCP - GeneralFamily Medicine10/26/22 Yadi Simms, APRIL [address] [facility] [place] [place] [address] Registered DietitianNutrition11/04/22 Chiqui Modi, RN [address] [facility] [place] [place] [address] Specialty Care CoordinatorHematology/Oncology11/15/22 Elizabeth Borjas MD [address] [facility] [place] [address] PhysicianHematology/Oncology11/15/22 Tremaine Gomez PA-C [address] [facility] [place] [place] [address] Physician AssistantHematology/Oncology11/15/22Team MemberRelationshipSpecialty Start DateEnd Date Julian Burton MD [address] [place] [address] PCP - GeneralFamily Medicine10/26/22 Yadi Simms, APRIL [address] [facility] [facility] [place] [place] [address] Registered DietitianNutrition11/04/22 Chiqui Modi, RN [address] [facility] [place] [place] [address] Specialty Care CoordinatorHematology/Oncology11/15/22 Elizabeth Borjas MD [address] [facility] [place] [address] PhysicianHematology/Oncology11/15/22 Tremaine Gomez PA-C [address] [facility] [place] [place] [address] Physician AssistantHematology/Oncology11/15/22Team MemberRelationshipSpecialty Start DateEnd Date Julian Burton MD [address] [place] [address] PCP - GeneralFamily Medicine10/26/22 Yadi Simms, RD [address] [place] [address] Registered DietitianNutrition11/04/22 Chiqui Modi, RN [address] [facility] [place] [place] [address] Specialty Care CoordinatorHematology/Oncology11/15/22 Elizabeth Borjas MD [address] [place] [address] PhysicianHematology/Oncology11/15/22 Tremaine Gomez, PAMaguiC [address] [facility] [place] [place] [address] Physician AssistantHematology/Oncology11/15/22 July Wiley LSW Social Worker11/21/22Team MemberRelationshipSpecialtyStart DateEnd Date Julian Burton MD [address] [facility] [place] [address] PCP - GeneralFamily Medicine10/26/22 Yadi Simms, RD [address] [place] [address] Registered DietitianNutrition11/04/22 Chiqui Modi RN [address] [facility] [place] [place] [address] Specialty Care CoordinatorHematology/Oncology11/15/22 Elizabeth Borjas MD [address] [facility] [place] [address] PhysicianHematology/Oncology11/15/22 Tremaine Gomez, PAMaguiC [address] [facility] [place] [place] [address] Physician AssistantHematology/Oncology11/15/22 July Wiley, [facility] Social Worker11/21/22Team MemberRelationshipSpecialtyStart DateEnd Date Julian Burton MD [address] [facility] [place] [address] PCP - GeneralFamily Medicine10/26/22 Yadi Simms, RD [address] [facility] [place] [place] [address] Registered DietitianNutrition11/04/22 Chiqui Modi, RN [address] [facility] [place] [place] [address] Specialty Care CoordinatorHematology/Oncology11/15/22 Elizabeth Borjas MD [address] [facility] [place] [address] PhysicianHematology/Oncology11/15/22 Tremaine Gomez, PA-C [address] [facility] [place] [place] [address] Physician AssistantHematology/Oncology11/15/22 July Wiley, [facility] Social Worker11/21/22Team MemberRelationshipSpecialtyStart DateEnd Date Julian Burton MD [address] [facility] [place] [address] PCP - GeneralFamily Medicine10/26/22 Yadi Simms, RD [address] [facility] [facility] [place] [place] [address] Registered DietitianNutrition11/04/22 Chiqui Modi, RN [address] [facility] [facility] [place] [place] [address] Specialty Care CoordinatorHematology/Oncology11/15/22 Elizabeth Borjas MD [address] [facility] [place] [address] PhysicianHematology/Oncology11/15/22 Tremaine Gomez, PA-C [address] [facility] [place] [place] [address] Physician AssistantHematology/Oncology11/15/22 July Wiley, [facility] Social Worker11/21/22Team MemberRelationshipSpecialtyStart Date[facility] Date Julian Burton MD [address] [facility] [place] [address] PCP - GeneralFamily Medicine10/26/22 Yadi Simms, RD [address] [facility] [place] [place] [address] Registered DietitianNutrition11/04/22 Chiqui Modi, RN [address] [facility] [place] [place] [address] Specialty Care CoordinatorHematology/Oncology11/15/22 Elizabeth Borjas MD [address] [facility] [place] [address] PhysicianHematology/Oncology11/15/22 Tremaine Gomez, PAMaguiC [address] [facility] [place] [place] [address] Physician AssistantHematology/Oncology11/15/22 July Wiley, [facility] Social Worker11/21/22Team MemberRelationshipSpecialtyStart [facility] Julian Burton MD [address] [facility] [place] [address] PCP - GeneralFamily Medicine10/26/22 Yadi Simms, RD [address] [facility] [place] [place] [address] Registered DietitianNutrition11/04/22 Chiqui Modi, RN [address] [facility] [place] [place] [address] Specialty Care CoordinatorHematology/Oncology11/15/22 Elizabeth Borjas MD [address] [facility] [place] [address] PhysicianHematology/Oncology11/15/22 Tremaine Gomez PA-C [address] [facility] [place] [place] [address] Physician AssistantHematology/Oncology11/15/22 July Wiley, [facility] Social Worker11/21/22Team MemberRelationshipSpecialtyStart End Date Julian Burton MD [address] [place] [address] PCP - GeneralFamily Medicine10/26/22 Yadi Simms, APRIL [address] [facility] [place] [place] [address] Registered DietitianNutrition11/04/22 Chiqui Modi, RN [address] [facility] [place] [place] [address] Specialty Care CoordinatorHematology/Oncology11/15/22 Elizabeth Borjas MD [address] [place] [address] PhysicianHematology/Oncology11/15/22 Tremaine Gomze PA-C [address] [facility] [place] [place] [address] Physician AssistantHematology/Oncology11/15/22 July Wiley, [facility] Social Worker11/21/22Team MemberRelationshipSpecialtyStart End Julian Burton MD [address] [facility] [place] [address] PCP - Generalmily Medicine10/26/22 Yadi Simms, APRIL [address] [facility] [place] [place] [address] Registered DietitianNutrition11/04/22 Chiqui Modi, RN [address] [facility] [place] [place] [address] Specialty Care CoordinatorHematology/Oncology11/15/22 Elizabeth Borjas MD [address] [place] [address] PhysicianHematology/Oncology11/15/22 Tremaine Gomez, PAMaguiC [address] [place] [address] Physician AssistantHematology/Oncology11/15/22 July Wiley, [facility] Social Worker11/21/22Team MemberRelationshipSpecialtyStart DateEnd Date Julian Burton MD [address] [place] [address] PCP - GeneralFamily Medicine10/26/22 Yadi Simms, RD [address] [facility] [place] [place] [address] Registered DietitianNutrition11/04/22 Chiqui Modi RN [address] [facility] [place] [place] [address] Specialty Care CoordinatorHematology/Oncology11/15/22 Elizabeth Borjas MD [address] [facility] [place] [address] PhysicianHematology/Oncology11/15/22 Tremaine Gomez, PA-C [address] [facility] [place] [place] [address] Physician AssistantHematology/Oncology11/15/22 July Wiley, [facility] Social Worker11/21/22Team MemberRelationshipSpecialtyStart DateEnd Date Julian Burton MD [address] [place] [address] PCP - GeneralBel[facility] Medicine10/26/22 Yadi Simms, RD [address] [facility] [place] [place] [address] Registered DietitianNutrition11/04/22 Chiqui Modi, RN [address] [place] [address] Specialty Care CoordinatorHematology/Oncology11/15/22 Elizabeth Borjas MD [address] [place] [address] PhysicianHematology/Oncology11/15/22 Tremaine Gomez, PAMaguiC [address] [place] [address] Physician AssistantHematology/Oncology11/15/22 July Wiley, [employer] Social Worker11/21/22Team MemberRelationshipSpecialtyStart DateEnd Date Julian Burton MD [address] [place] [address] PCP - GeneralFamily Medicine10/26/22 Yadi Simms, RD [address] [place] [address] Registered DietitianNutrition11/04/22 Chiqui Modi RN [address] [place] [address] Specialty Care CoordinatorHematology/Oncology11/15/22 Elizabeth Borjas MD [address] [place] [address] PhysicianHematology/Oncology11/15/22 Tremaine Gomez, PAMaguiC [address] [place] [address] Physician AssistantHematology/Oncology11/15/22 July Wiley, [employer] Social Worker11/21/22Team MemberRelationshipSpecialtyStart DateEnd Julian Burton MD [address] [place] [address] PCP - GeneralFamily Medicine10/26/22 Yadi Simms, RD [address] [place] [address] Registered DietitianNutrition11/04/22 Chiqui Modi, RN [address] [place] [address] Specialty Care CoordinatorHematology/Oncology11/15/22 Elizabeth Borjas MD [address] [place] [address] PhysicianHematology/Oncology11/15/22 Tremaine Gomez, PA-C [address] [place] [address] Physician AssistantHematology/Oncology11/15/22 July Wiley, [employer] Social Worker11/21/22Team MemberRelationshipSpecialtyStart DateEnd Date Julian Burton MD [address] [place] [address] PCP - GeneralFamily Medicine10/26/22 aYdi Simms, APRIL [address] [place] [address] Registered DietitianNutrition11/04/22 Chiqui Modi RN [address] [place] [address] Specialty Care CoordinatorHematology/Oncology11/15/22 Elizabeth Borjas MD [address] [place] [address] PhysicianHematology/Oncology11/15/22 Tremaine Gomez, PA-C [address] [place] [address] Physician AssistantHematology/Oncology11/15/22 July Wiley, [employer] Social Worker11/21/22Team MemberRelationshipSpecialtyStart DateEnd Date Julian Burton MD [address] [facility] [place] [address] PCP - GeneralFamily Medicine10/26/22 Yadi Simms, RD [address] [place] [address] Registered DietitianNutrition11/04/22 Chiqui Modi, ONELIA [address] [place] [address] Specialty Care CoordinatorHematology/Oncology11/15/22 Elizabeth Borjas MD [address] [place] [address] PhysicianHematology/Oncology11/15/22 Tremaine Gomez, PA-C [address] [facility] [place] [place] [address] Physician AssistantHematology/Oncology11/15/22 July Wiley LSW Social Worker11/21/22Team MemberRelationshipSpecialtyStart DateEnd Date Julian Burton MD [address] [facility] [place] [address] PCP - GeneralFamily Medicine10/26/22 Yadi Simms, RD [address] [place] [address] Registered DietitianNutrition11/04/22 Chiqui Modi RN [address] [facility] [place] [place] [address] Specialty Care CoordinatorHematology/Oncology11/15/22 Elizabeth Borjas MD [address] [place] [address] PhysicianHematology/Oncology11/15/22 Tremaine Gomez, PA-C [address] [place] [address] Physician AssistantHematology/Oncology11/15/22 July Wiley, [facility] Social Worker11/21/22Team MemberRelationshipSpecialtyStart DateEnd Date Julian Burton MD [address] [facility] [place] [address] PCP - GeneralFamily Medicine10/26/22 Yadi Simms, RD [address] [facility] [place] [place] [address] Registered DietitianNutrition11/04/22 Chiqui Modi, RN [address] [facility] [place] [place] [address] Specialty Care CoordinatorHematology/Oncology11/15/22 Elizabeth Borjas MD [address] [place] [address] PhysicianHematology/Oncology11/15/22 Tremaine Gomez, PA-C [address] [facility] [place] [place] [address] Physician AssistantHematology/Oncology11/15/22 July Wiley, [facility] Social Worker11/21/22Team MemberRelationshipSpecialtyStart DateEnd Date Julian Burton MD [address] [facility] [place] [address] PCP - GeneralFamily Medicine10/26/22 Yadi Simms, APRIL [address] [facility] [place] [place] [address] Registered DietitianNutrition11/04/22 Chiqui Modi, RN [address] [facility] [place] [place] [address] Specialty Care CoordinatorHematology/Oncology11/15/22 Elizabeth Borjas MD [address] [facility] [place] [address] PhysicianHematology/Oncology11/15/22 Tremaine Gomez, PA-C [address] [facility] [place] [place] [address] Physician AssistantHematology/Oncology11/15/22 July Wiley, [facility] Social Worker11/21/22Team MemberRelationshipSpecialtyStart DateEnd Date Julian Burton MD [address] [facility] [place] [address] PCP - GeneralFamily Medicine10/26/22 Yadi Simms, RD [address] [facility] [place] [place] [address] Registered DietitianNutrition11/04/22 Chiqui Modi, RN [address] [facility] [place] [place] [address] Specialty Care CoordinatorHematology/Oncology11/15/22 Elizabeth Borjas MD [address] [place] [address] PhysicianHematology/Oncology11/15/22 Tremaine Gomez, NICANOR [address] [facility] [place] [place] [address] Physician AssistantHematology/Oncology11/15/22 July Wiley, [facility] Social Worker11/21/22Team MemberRelationshipSpecialtyStart DateEnd Julian Burton MD [address] [facility] [place] [address] PCP - GeneralFamily Medicine10/26/22 Yadi Simms, RD [address] [facility] [place] [place] [address] Registered DietitianNutrition11/04/22 Chiqui Modi, RN [address] [facility] [place] [place] [address] Specialty Care CoordinatorHematology/Oncology11/15/22 Elizabeth Borjas MD [address] [facility] [place] [address] PhysicianHematology/Oncology11/15/22 Tremaine Gomez, PAMaguiC [address] [place] [address] Physician AssistantHematology/Oncology11/15/22 July Wiley, [facility] Social Worker11/21/22Team MemberRelationshipSpecialtyStart DateEnd Date Julian Burton MD [address] [facility] [place] [address] PCP - GeneralFamily Medicine10/26/22 Yadi Simms, RD [address] [place] [address] Registered DietitianNutrition11/04/22 Chiqui Modi, RN [address] [place] [address] Specialty Care CoordinatorHematology/Oncology11/15/22 Elizabeth Borjas MD [address] [place] [address] PhysicianHematology/Oncology11/15/22 Tremaine Gomez, PAAutumn [address] [place] [address] Physician AssistantHematology/Oncology11/15/22 July Wiley, [facility] Social Worker11/21/22Te MemberRelationshipSpecialtyStart DateEnd Julian Burton MD PCP - GeneralFamily Medicine10/26/22 Yadi Simms, APRIL [address] [place] [address] Registered DietitianNutrition11/04/22 Chiqui Modi, RN [address] [place] [address] Specialty Care CoordinatorHematology/Oncology11/15/22 Elizabeth Borjas MD [address] [facility] [place] [address] PhysicianHematology/Oncology11/15/22 Tremaine Gomez PA-C [address] [facility] [place] [place] [address] Physician AssistantHematology/Oncology11/15/22 July Wiley, [facility] Social Worker11/21/22Team MemberRelationshipSpecialtyStart DateEnd Date Julian Burton MD PCP - GeneralFamily Medicine10/26/22 Yadi Simms, APRIL [address] [facility] [place] [place] [address] Registered DietitianNutrition11/04/22 Chiqui Modi, RN [address] [facility] [place] [place] [address] Specialty Care CoordinatorHematology/Oncology11/15/22 Elizabeth Borjas MD [address] [facility] [place] [address] PhysicianHematology/Oncology11/15/22 Tremaine Gomez PA-C [address] [facility] [place] [place] [address] Physician AssistantHematology/Oncology11/15/22 July Wiley, [facility] Social Worker11/21/22Team MemberRelationshipSpecialtyStart DateEnd Julian Burton MD PCP - Generalmily Medicine10/26/22 Yadi Simms, APRIL [address] [facility] [place] [place] [address] Registered DietitianNutrition11/04/22 Chiqui Modi, RN [address] [facility] [place] [place] [address] Specialty Care CoordinatorHematology/Oncology11/15/22 Elizabeth Borjas MD [address] [facility] [place] [address] PhysicianHematology/Oncology11/15/22 Tremaine Gomez PA-C [address] [facility] [place] [place] [address] Physician AssistantHematology/Oncology11/15/22 July Wiley, [facility] Social Worker11/21/22Team MemberRelationshipSpecialtyStart DateEnd Date Julian Burton MD PCP - GeneralFamily Medicine10/26/[address] [facility] [place] [place] [address] Registered DietitianNutrition11/04/22 Chiqui Modi, RN [address] [facility] [place] [place] [address] Specialty Care CoordinatorHematology/Oncology11/15/22 Elizabeth Borjas MD [address] [facility] [place] [facility] [place] [address] PhysicianHematology/Oncology11/15/22 Tremaine Gomez PA-C [address] [facility] [place] [place] [address] Physician AssistantHematology/Oncology11/15/22 July Wiley, [facility] Social Worker11/21/22Te MemberRelationshipSpecialtyStbattery park End Date Julian Burton MD PCP - GeneralFamily Medicine10/26/[address] [facility] [place] [place] [address] Registered DietitianNutrition11/04/22 Chiqui Modi RN [address] [facility] [place] [place] [address] Specialty Care CoordinatorHematology/Oncology11/15/22 Elizabeth Borjas MD [address] [facility] [place] [address] PhysicianHematology/Oncology11/15/22 Tremaine Gomez, PAMaguiC [address] [facility] [place] [place] [address] Physician AssistantHematology/Oncology11/15/22 July Wiley, [facility] Social Worker11/21/22Team MemberRelationshipSpecialtyStart DateEnd Date Julian Burton MD PCP - GeneralFamily Medicine10/26/[address] [facility] [place] [place] [address] Registered DietitianNutrition11/04/22 Chiqui Modi, RN [address] [facility] [place] [place] [address] Specialty Care CoordinatorHematology/Oncology11/15/22 Elizabeth Borjas MD [address] [facility] [place] [address] PhysicianHematology/Oncology11/15/22 Tremaine Gomez, PAMaguiC [address] [facility] [place] [place] [address] Physician AssistantHematology/Oncology11/15/22 July Wiley, [facility] Social Worker11/21/22Te MemberRelationshipSpecialtyStart DateEnd Julian Burton MD PCP - Generalmily Medicine10/26/[address] [facility] [place] [place] [address] Registered DietitianNutrition11/04/22 Chiqui Modi RN [address] [facility] [place] [place] [address] Specialty Care CoordinatorHematology/Oncology2/7/23 Elizabeth Borjas MD [address] [place] [address] PhysicianHematology/Oncology11/15/22 Tremaine Gomez, PA-C [address] [place] [address] Physician AssistantHematology/Oncology11/15/22 July Wiley, [facility] Social Worker11/21/22Te MemberRelationshipSpecialtyStart DateEnd Date Julian Burton MD PCP - Generalmily Medicine10/26/22 Yadi Simms, RD [address] [place] [address] Registered DietitianNutrition11/04/22 Chiqui Modi RN [address] [place] [address] Specialty Care CoordinatorHematology/Oncology11/15/22 Elizabeth Borjas MD [address] [place] [address] PhysicianHematology/Oncology11/15/22 Tremaine Gomez, PA-C [address] [place] [address] Physician AssistantHematology/Oncology11/15/22 July Wiley, [facility] Social Worker11/21/22Te MemberRelationshipSpecialtyStart DateEnd Date Julian Burton MD PCP - Generalmily Medicine10/26/22 Yadi Simms, RD [address] [place] [address] Registered DietitianNutrition11/04/22 Chiqui Modi RN [address] [place] [address] Specialty Care CoordinatorHematology/Oncology11/15/22 Elizabeth Borjas MD [address] [facility] [place] [place] [address] PhysicianHematology/Oncology11/15/22 Tremaine Gomez, PA-C [address] [place] [address] Physician AssistantHematology/Oncology11/15/22 July Wiley, [facility] Social Worker11/21/22Team MemberRelationshipSpecialtyStart DateEnd Date Julian Burton MD PCP - [facility] Medicine10/26/22 Yadi Simms, APRIL [address] [facility] [place] [place] [address] Registered DietitianNutrition11/04/22 Chiqui Modi, RN [address] [place] [address] Specialty Care CoordinatorHematology/Oncology11/15/22 Elizabeth Borjas MD [address] [facility] [place] [place] [address] PhysicianHematology/Oncology11/15/22 Tremaine Gomez, PA-C [address] [place] [address] Physician AssistantHematology/Oncology11/15/22 July Wiley, [facility] Social Worker11/21/22Team MemberRelationshipSpecialtyStart DateEnd Date Julian Burton MD PCP - [facility] Medicine10/26/22 Yadi Simms, RD [address] [facility] [place] [place] [address] Registered DietitianNutrition11/04/22 Chiqui Modi, RN [address] [place] [address] Specialty Care CoordinatorHematology/Oncology11/15/22 Elizabeth Borjas MD [address] [facility] [place] [address] PhysicianHematology/Oncology11/15/22 Tremaine Gomez, PA-C [address] [place] [address] Physician AssistantHematology/Oncology11/15/22 July Wiley, [facility] Social Worker11/21/22Team MemberRelationshipSpecialtyStart DateEnd Julian Burton MD PCP - GeneralFamily Medicine10/26/22 Yadi Simms, APRIL [address] [place] [address] Registered DietitianNutrition11/04/22 Chiqui Modi RN [address] [place] [address] Specialty Care CoordinatorHematology/Oncology11/15/22 Elizabeth Borjas MD [address] [facility] [place] [address] PhysicianHematology/Oncology11/15/22 Tremaine Gomez, PA-C [address] [place] [address] Physician AssistantHematology/Oncology11/15/22 July Wiley, [facility] Social Worker11/21/22Team MemberRelationshipSpecialtyStart End Julian Burton MD PCP - GeneralFamily Medicine10/26/22 Yadi Simms, APRIL [address] [place] [address] Registered DietitianNutrition11/04/22 Chiqui Modi, RN [address] [place] [address] Specialty Care CoordinatorHematology/Oncology11/15/22 Elizabeth Borjas MD [address] [facility] [place] [address] PhysicianHematology/Oncology11/15/22 Tremaine Gomez, PAMaguiC [address] [place] [address] Physician AssistantHematology/Oncology11/15/22 July Wiley, [employer] Social Worker11/21/22Team MemberRelationshipSpecialtyStart DateEnd Date Julian Burton MD PCP - GeneralFamily Medicine10/26/[address] [place] [address] Registered DietitianNutrition11/04/22 Chiqui Modi RN [address] [place] [address] Specialty Care CoordinatorHematology/Oncology11/15/22 Elizabeth Borjas MD [address] [facility] [place] [address] PhysicianHematology/Oncology11/15/22 Tremaine Gomez, PAMaguiC [address] [place] [address] Physician AssistantHematology/Oncology11/15/22 July Wiley, [facility] Social Worker11/21/22Team MemberRelationshipSpecialtyStart DateEnd Julian Burton MD PCP - GeneralFamily Medicine10/26/[address] [place] [address] Registered DietitianNutrition11/04/22 Chiqui Modi RN [address] [facility] [place] [place] [address] Specialty Care CoordinatorHematology/Oncology11/15/22 Elizabeth Borjas MD [address] [facility] [place] [address] PhysicianHematology/Oncology11/15/22 Tremaine Gomez, PA-C [address] [facility] [place] [place] [address] Physician AssistantHematology/Oncology11/15/22 July Wiley, [facility] Social Worker11/21/22Team MemberRelationshipSpecialtyStart DateEnd Date Julian Burton MD PCP - GeneralFamily Medicine10/26/22 Yadi Simms, APRIL [address] [facility] [place] [place] [address] Registered DietitianNutrition11/04/22 Chiqui Modi RN [address] [facility] [place] [place] [address] Specialty Care CoordinatorHematology/Oncology11/15/22 Elizabeth Borjas MD [address] [facility] [place] [address] PhysicianHematology/Oncology11/15/22 Tremaine Gomez, PA-C [address] [facility] [place] [place] [address] Physician AssistantHematology/Oncology11/15/22 July Wiley, [facility] Social Worker11/21/22Team MemberRelationshipSpecialtyStart DateEnd Date Julian Burton MD PCP - GeneralFamily Medicine10/26/22 Yadi Simms, APRIL [address] [facility] [place] [place] [address] Registered DietitianNutrition11/04/22 Chiqui Modi, RN [address] [place] [address] Specialty Care CoordinatorHematology/Oncology11/15/22 Elizabeth Borjas MD [address] [facility] [place] [address] PhysicianHematology/Oncology11/15/22 Tremaine Gomez, PA-C [address] [place] [address] Physician AssistantHematology/Oncology11/15/22 July Wiley, [facility] Social Worker11/21/22Team MemberRelationshipSpecialtyStart DateEnd Date Julian Burton MD PCP - GeneralFamily Medicine10/26/[address] [place] [address] Registered DietitianNutrition11/04/22 Chiqui Modi, RN [address] [place] [address] Specialty Care CoordinatorHematology/Oncology11/15/22 Elizabeth Borjas MD [address] [facility] [place] [address] PhysicianHematology/Oncology11/15/22 Tremaine Gomez, PA-C [address] [place] [address] Physician AssistantHematology/Oncology11/15/22 July Wiley, [facility] Social Worker11/21/22Team MemberRelationshipSpecialtyStart DateEnd Date Julian Burton MD PCP - GeneralFamily Medicine10/26/[address] [facility] [place] [place] [address] Registered DietitianNutrition11/04/22 Chiqui Modi, RN [address] [facility] [place] [place] [address] Specialty Care CoordinatorHematology/Oncology11/15/22 Elizabeth Borjas MD [address] [facility] [place] [place] [address] PhysicianHematology/Oncology11/15/22 Tremaine Gomez, PA-C [address] [facility] [place] [place] [address] Physician AssistantHematology/Oncology11/15/22 July Wiley, [facility] Social Worker11/21/22Team MemberRelationshipSpecialtyStart DateEnd Date Julian Burton MD PCP - GeneralFamily Medicine10/26/22 Yadi Simms, RD [address] [facility] [place] [place] [address] Registered DietitianNutrition11/04/22 Chiqui Modi RN [address] [facility] [place] [place] [address] Specialty Care CoordinatorHematology/Oncology11/15/22 Elizabeth Borjas MD [address] [facility] [place] [place] [address] PhysicianHematology/Oncology11/15/22 Tremaine Gomez, PA-C [address] [facility] [place] [place] [address] Physician AssistantHematology/Oncology11/15/22 July Wiley, [facility] Social Worker11/21/22Team MemberRelationshipSpecialtyStart DateEnd Date Julian Burton MD PCP - GeneralFamily Medicine10/26/[address] [facility] [facility] [facility] [address] [place], [place] [address] Registered DietitianNutrition11/04/22 Chiqui Modi, RN [address] [place] [address] Specialty Care CoordinatorHematology/Oncology11/15/22 Elizabeth Borjas MD [address] [facility] [place] [address] PhysicianHematology/Oncology11/15/22 Tremaine Gomez, PAMaguiC [address] [place] [address] Physician AssistantHematology/Oncology11/15/22 July Wiley, [employer] Social Worker11/21/22Team MemberRelationshipSpecialtyStart DateEnd Julian Burton MD PCP - GeneralFamily Medicine10/26/[address] [place] [address] [place] [address] Registered DietitianNutrition11/04/22 Chiqui Modi, RN [address] [place] [address] Specialty Care CoordinatorHematology/Oncology11/15/22 Elizabeth Borjas MD [address] [place] [address] [place] [address] PhysicianHematology/Oncology11/15/22 Tremaine Gomez, PAAutumn [address] [place] [address] [place] [address] Physician AssistantHematology/Oncology11/15/22 July Wiley, [facility] Social Worker11/21/22Team MemberRelationshipSpecialtyStart DateEnd Julian Burton MD PCP - GeneralFamily Medicine10/26/[address] [facility] [place] [place] [address] Registered DietitianNutrition11/04/22 Chiqui Modi, RN [address] [facility] [place] [place] [address] Specialty Care CoordinatorHematology/Oncology11/15/22 Elizabeth Borjas MD 417 [facility] [place] [place] [address] PhysicianHematology/Oncology11/15/22 Tremaine Gomez PA-C [address] [place] [address] Physician AssistantHematology/Oncology11/15/22 July Wiley LSW Social Worker11/21/22 Team Status: Active Member Role Status Alin Burton MD Primary Care Provider Active Team Status: Inactive Member Role Status Alin Ivy MD Attending Provider Active Kassandra Clarke Care ProviderActiveTeam MemberRelationshipSpecialty Start DateEnd Julian Burton MD PCP - GeneralFamily Medicine10/26/[address] [facility] [place] [address] Registered DietitianNutrition11/04/22 Chiqui Modi, RN [address] [facility] [place] [place] [address] Specialty Care CoordinatorHematology/Oncology11/15/22 Elizabeth Borjas MD [address] [place] [address] PhysicianHematology/Oncology11/15/22 Tremaine Gomez PA-C [address] [place] [address] [place] [address] Physician AssistantHematology/Oncology11/15/22 July Wiley, [facility] Social Worker11/21/22Team MemberRelationshipSpecialtyStart DateEnd Date Julian Burton MD PCP - GeneralFamily Medicine10/26/[address] [place] [address] Registered DietitianNutrition11/04/22 Chiqui Modi RN [address] [place] [address] Specialty Care CoordinatorHematology/Oncology11/15/22 Elizabeth Borjas MD [address] [facility] [place] [address] PhysicianHematology/Oncology11/15/22 Tremaine Gomez PA-C [address] [place] [address] [place] [address] Physician AssistantHematology/Oncology11/15/22 July Wiley, [facility] Social Worker11/21/22Team MemberRelationshipSpecialtyStart End Julian Burton MD PCP - GeneralFamily Medicine10/26/[address] [place] [address] Registered DietitianNutrition11/04/22 Chiqui Modi RN [address] [place] [address] Specialty Care CoordinatorHematology/Oncology11/15/22 Elizabeth Borjas MD [address] [place] [address] PhysicianHematology/Oncology11/15/22 Tremaine Gomez PA-C [address] [place] [address] Physician AssistantHematology/Oncology11/15/22 July Wiley, [employer] Social Worker11/21/22Team MemberRelationshipSpecialtyStart DateEnd Julian Burton MD PCP - GeneralFamily Medicine10/26/[address] [place] [address] Registered DietitianNutrition11/04/22 Chiqui Modi RN [address] [place] [address] Specialty Care CoordinatorHematology/Oncology11/15/22 Elizabeth Borjas MD [address] [place] [address] PhysicianHematology/Oncology11/15/22 Tremaine Gomez PA-C [address] [place] [address] Physician AssistantHematology/Oncology11/15/22 July Wiley, [employer] Social Worker11/21/22Team MemberRelationshipSpecialtyStart DateEnd Julian Burton MD PCP - GeneralFamily Medicine10/26/[address] [place] [address] Registered DietitianNutrition11/04/22 Chiqui Modi, RN [address] [place] [address] Specialty Care CoordinatorHematology/Oncology11/15/22 Elizabeth Borjas MD [address] [place] [address] PhysicianHematology/Oncology11/15/22 Tremaine Gomez PA-C [address] [place] [address] Physician AssistantHematology/Oncology11/15/22 July Wilye LSW Social Worker11/21/22Team MemberRelationshipSpecialtyStart DateEnd Julian Burton MD PCP - GeneralFamily Medicine10/26/[address] [place] [address] Registered DietitianNutrition11/04/22 Chiqui Modi RN [address] [place] [address] Specialty Care CoordinatorHematology/Oncology11/15/22 Elizabeth Borjas MD [address] [place] [address] PhysicianHematology/Oncology11/15/22 Tremaine Gomez PA-C [address] [place] [address] Physician AssistantHematology/Oncology11/15/22 July Wiley, [facility] Social Worker11/21/22Team MemberRelationshipSpecialtyStart End Julian Burton MD PCP - GeneralFamily Medicine10/26/[address] [place] [address] Registered DietitianNutrition11/04/22 Chiqui Modi, RN [address] [place] [address] Specialty Care CoordinatorHematology/Oncology11/15/22 Elizabeth Borjas MD [address] [place] [address] PhysicianHematology/Oncology11/15/22 Tremaine Gomez, NICANOR [address] [place] [address] Physician AssistantHematology/Oncology11/15/22 July Wiley, [facility] Social Worker11/21/22Te MemberRelationshipSpecialtyStart DateEnd Julian Burton MD PCP - GeneralFamily Medicine10/26/[address] [place] [address] Registered DietitianNutrition11/04/22 Chiqui Modi, RN [address] [place] [address] Specialty Care CoordinatorHematology/Oncology11/15/22 Elizabeth Borjas MD [address] [place] [address] PhysicianHematology/Oncology2 Tremaine Gomez PA-C [address] [place] [address] Physician AssistantHematology/Oncology11/15/22 July Wiley, [facility] Social Worker11/21/22Team MemberRelationshipSpecialtyStart DateEnd Date Julian Burton MD PCP - GeneralFamily Medicine10/26/[address] [place] [address] Registered DietitianNutrition11/04/22 Chiqui Modi RN [address] [place] [address] Specialty Care CoordinatorHematology/Oncology11/15/22 Elizabeth Borjas MD [address] [place] [address] PhysicianHematology/Oncology11/15/22 Tremaine Gomez PA-C [address] [place] [address] Physician AssistantHematology/Oncology11/15/22 July Wiley, [facility] Social Worker11/21/22Team MemberRelationshipSpecialtyStart DateEnd Julian Burton MD PCP - GeneralFamily Medicine10/26/[address] [place] [address] Registered DietitianNutrition11/04/22 Chiqui Modi RN [address] [place], [id number] Specialty Care CoordinatorHematology/Oncology11/15/22 Elizabeth Borjas MD [address] [facility] [place] [address] PhysicianHematology/Oncology11/15/22 Tremaine Gomez PA-C [address] [facility] [place], [id number] Physician AssistantHematology/Oncology11/15/22 July Wiley LSW Social Worker11/21/22Team MemberRelationshipSpecialtyStart DateEnd Date Julian Burton MD [address] [place] [address] PCP - GeneralFamily Medicine03/09/23Team MemberRelationshipSpecialtyStart DateEnd Date Julian Burton MD [address] [place] [address] PCP - GeneralFamily Medicine03/09/23Team MemberRelationshipSpecialtyStart DateEnd Date Julian Burton MD PCP - GeneralFamily Medicine10/26/[address] [place] [address] Registered DietitianNutrition11/04/22 Chiqui Modi, RN [address] [facility] [place] [address] Specialty Care CoordinatorHematology/Oncology11/15/22 Elizabeth Borjas MD [address] [facility] [place] [address] PhysicianHematology/Oncology2 rTemaine Gomez PA-C [address] [place] [address] Physician AssistantHematology/Oncology11/15/22 July Wiley, [facility] Social Worker11/21/22Team MemberRelationshipSpecialtyStart DateEnd Julian Burton MD PCP - GeneralFamily Medicine10/26/[address] [place] [address] Registered DietitianNutrition11/04/22 Chiqui Modi RN [address] [place] [address] Specialty Care CoordinatorHematology/Oncology11/15/22 Elizabeth Borjas MD [address] [place] [address] PhysicianHematology/Oncology11/15/22 Tremaine Gomez PA-C [address] [place] [address] Physician AssistantHematology/Oncology11/15/22 July Wiley, [facility] Social Worker11/21/22Team MemberRelationshipSpecialtyStart DateEnd Julian Burton MD PCP - GeneralFamily Medicine10/26/[address] [place] [address] Registered DietitianNutrition11/04/22 Chiqui Modi RN [address] [place], [id number] Specialty Care CoordinatorHematology/Oncology11/15/22 Elizabeth Borjas MD [address] [facility] [address] [place] [id number] PhysicianHematology/Oncology11/15/22 Tremaine Gomez PA-C [address] [place] [address] [place], [id number] Physician AssistantHematology/Oncology11/15/22 July Wiley, [employer] Social Worker11/21/22Team MemberRelationshipSpecialtyStart End Julian Burton MD PCP - GeneralFamily Medicine10/26/[address] [facility] [address] [address] [place], [id number] Registered DietitianNutrition11/04/22 Chiqui Modi RN [address] [facility] [place], [id number] Specialty Care CoordinatorHematology/Oncology11/15/22 Elizabeth Borjas MD [address] [place] [address] PhysicianHematology/Oncology11/15/22 Tremaine Gomez PA-C [address] [place] [address] Physician AssistantHematology/Oncology11/15/22 July Wiley, [facility] Social Worker11/21/22Team MemberRelationshipSpecialtyStart End Julian Burton MD PCP - GeneralFamily Medicine10/26/[address] [facility] [place] [place] [address] Registered DietitianNutrition11/04/22 Chiqui Modi RN [address] [place] [address] Specialty Care CoordinatorHematology/Oncology11/15/22 Elizabeth Borjas MD [address] [place] [address] PhysicianHematology/Oncology11/15/22 Tremaine Gomez PA-C [address] [place] [address] Physician AssistantHematology/Oncology11/15/22 July Wiley LSW Social Worker11/21/22Team MemberRelationshipSpecialtyStart DateEnd Date Julian Burton MD PCP - GeneralFamily Medicine10/26/[address] [facility] [place] [place] [address] Registered DietitianNutrition11/04/22 Chiqui Modi RN [address] [facility] [place] [place] [address] Specialty Care CoordinatorHematology/Oncology11/15/22 Elizabeth Borjas MD [address] [place] [address] PhysicianHematology/Oncology11/15/22 Tremaine Gomez PA-C [address] [place] [address] Physician AssistantHematology/Oncology11/15/22 July Wiley LSW Social Worker11/21/22 Team Status: Inactive Member Role Status Dates Julian Burton MD Primary Care Provider Active Start: April 12, 2024 End: April 12, 2024FRANCISCO [facility] ProviderActiveStart: April 12, 2024 End: April 12, 2024Team MemberRelationshipSpecialtyStart DateEnd Julian Burton MD PCP - GeneralFamily Medicine10/26/[address] [place] [address] Registered DietitianNutrition11/04/22 Chiqui Modi, RN [address] [place] [address] Specialty Care CoordinatorHematology/Oncology11/15/22 Elizabeth Borjas MD [address] [place] [address] PhysicianHematology/Oncology11/15/22 Tremaine Gomez PA-C [address] [place] [address] Physician AssistantHematology/Oncology11/15/22 July Wiley LSW Social Worker11/21/22Team MemberRelationshipSpecialtyStart DateEnd Julian Burton MD PCP - GeneralFamily Medicine10/26/[address] [place] [address] Registered DietitianNutrition11/04/22 Chiqui Modi, RN [address] [place] [address] Specialty Care CoordinatorHematology/Oncology11/15/22 Elizabeth Borjas MD [address] [place] [address] PhysicianHematology/Oncology11/15/22 Tremaine Gomez PA-C [address] [place] [address] Physician AssistantHematology/Oncology11/15/22 July Wiley, [facility] Social Worker11/21/22Team MemberRelationshipSpecialtyStart DateEnd Date Julian Burton MD PCP - GeneralFamily Medicine10/26/[address] [place] [address] Registered DietitianNutrition11/04/22 Chiqui Modi RN [address] [place] [address] Specialty Care CoordinatorHematology/Oncology11/15/22 Elizabeth Borjas MD [address] [place] [address] PhysicianHematology/Oncology11/15/22 Tremaine Gomez PA-C [address] [place] [address] Physician AssistantHematology/Oncology11/15/22 July Wiley, [facility] Social Worker11/21/22Team MemberRelationshipSpecialtyStart End Julian Burton MD PCP - GeneralFamily Medicine10/26/[address] [facility] [place] [place] [address] Registered DietitianNutrition11/04/22 Chiqui Modi RN [address] [facility] [place] [place] [address] Specialty Care CoordinatorHematology/Oncology11/15/22 Elizabeth Borjas MD [address] [facility] [place] [address] PhysicianHematology/Oncology11/15/22 Tremaine Gomez PA-C [address] [facility] [place] [place] [address] Physician AssistantHematology/Oncology11/15/22 July Wiley, [employer] Social Worker11/21/22Team MemberRelationshipSpecialtyStart DateEnd Julian Burton MD PCP - Generalmily Medicine10/26/[address] [facility] [place] [place] [address] Registered DietitianNutrition11/04/22 Chiqui Modi RN [address] [facility] [place] [place] [address] Specialty Care CoordinatorHematology/Oncology11/15/22 Elizabeth Borjas MD [address] [facility] [place] [address] PhysicianHematology/Oncology11/15/22 Tremaine Gomez PA-C [address] [facility] [place] [place] [address] Physician AssistantHematology/Oncology11/15/22 July Wiley, [employer] Social Worker11/21/22Team MemberRelationshipSpecialtyStart DateEnd Julian Burton MD PCP - GeneralFamily Medicine10/26/[address] [place] [address] Registered DietitianNutrition11/04/22 Chiqui Modi RN [address] [place] [address] Specialty Care CoordinatorHematology/Oncology11/15/22 Elizabeth Borjas MD [address] [place] [address] PhysicianHematology/Oncology11/15/22 Tremaine Gomez PA-C [address] [place] [address] Physician AssistantHematology/Oncology11/15/22 July Wiley LSW Social Worker11/21/22Team MemberRelationshipSpecialtyStart DateEnd Date Julian Burton MD PCP - GeneralFamily Medicine10/26/[address] [place] [address] Registered DietitianNutrition11/04/22 Chiqui Modi RN [address] [place] [address] Specialty Care CoordinatorHematology/Oncology11/15/22 Elizabeth Borjas MD [address] [place] [address] PhysicianHematology/Oncology11/15/22 Tremaine Gomez PA-C [address] [place] [address] Physician AssistantHematology/Oncology11/15/22 July Wiley, [facility] Social Worker11/21/22Team MemberRelationshipSpecialtyStart End Julian Burton MD PCP - GeneralFamily Medicine10/26/[address] [place] [address] Registered DietitianNutrition11/04/22 Chiqui Modi, RN [address] [place] [address] Specialty Care CoordinatorHematology/Oncology11/15/22 Elizabeth Borjas MD [address] [place] [address] PhysicianHematology/Oncology11/15/22 Tremaine Gomez, NICANOR [address] [place] [address] Physician AssistantHematology/Oncology11/15/22 July Wiley, [facility] Social Worker11/21/22Te MemberRelationshipSpecialtyStart End Julian Burton MD PCP - GeneralFamily Medicine10/26/[address] [place] [address] Registered DietitianNutrition11/04/22 Chiqui Modi, RN [address] [place] [address] Specialty Care CoordinatorHematology/Oncology11/15/22 Elizabeth Borjas MD [address] [place] [address] PhysicianHematology/Oncology11/15/22 Tremaine Gomez PA-C [address] [place] [address] Physician AssistantHematology/Oncology11/15/22 July Wiley, [facility] Social Worker11/21/22Team MemberRelationshipSpecialtyStart DateEnd Date Julian Burton MD PCP - GeneralFamily Medicine10/26/[address] [place] [address] Registered DietitianNutrition11/04/22 Chiqui Modi RN [address] [place] [address] Specialty Care CoordinatorHematology/Oncology11/15/22 Elizabeth Borjas MD [address] [facility] [place] [address] PhysicianHematology/Oncology11/15/22 Tremaine Gomez PA-C [address] [place] [address] [place] [address] Physician AssistantHematology/Oncology11/15/22 July Wiley, [facility] Social Worker11/21/22Team MemberRelationshipSpecialtyStart DateEnd Julian Burton MD PCP - GeneralFamily Medicine10/26/[address] [place] [address] Registered DietitianNutrition11/04/22 Chiqui Modi RN [address] [facility] [place] [place] [address] Specialty Care CoordinatorHematology/Oncology11/15/22 Elizabeth Borjas MD [address] [place] [address] PhysicianHematology/Oncology11/15/22 Tremaine Gomez PA-C [address] [place] [address] Physician AssistantHematology/Oncology11/15/22 July Wiley, [employer] Social Worker11/21/22Team MemberRelationshipSpecialtyStart DateEnd Julian Burton MD PCP - Generalmily Medicine10/26/[address] [facility] [address] Registered DietitianNutrition11/04/22 Chiqui Modi RN [address] [place] [address] Specialty Care CoordinatorHematology/Oncology11/15/22 Elizabeth Borjas MD [address] [place] [address] PhysicianHematology/Oncology11/15/22 Tremaine Gomez PA-C [address] [place] [address] Physician AssistantHematology/Oncology11/15/22 July Wiley, [facility] Social Worker11/21/22Team MemberRelationshipSpecialtyStart DateEnd Julian Burton MD PCP - GeneralFamily Medicine10/26/[address] [place] [address] Registered DietitianNutrition11/04/22 Chiqui Modi, RN [address] [place] [address] Specialty Care CoordinatorHematology/Oncology11/15/22 Elizabeth Borjas MD [address] [place] [address] PhysicianHematology/Oncology11/15/22 Tremaine Gomez PA-C [address] [place] [address] Physician AssistantHematology/Oncology11/15/22 July Wiley LSW Social Worker11/21/22Team MemberRelationshipSpecialtyStart DateEnd Julian Burton MD PCP - GeneralFamily Medicine10/26/[address] [place] [address] Registered DietitianNutrition11/04/22 Chiqui Modi RN [address] [place] [address] Specialty Care CoordinatorHematology/Oncology11/15/22 Elizabeth Borjas MD [address] [place] [address] PhysicianHematology/Oncology11/15/22 Tremaine Gomez PA-C [address] [place] [address] Physician AssistantHematology/Oncology11/15/22 July Wiley, [facility] Social Worker11/21/22Team MemberRelationshipSpecialtyStart DateEnd Julian Burton MD PCP - GeneralFamily Medicine10/26/[address] [place] [address] Registered DietitianNutrition11/04/22 Chiqui Modi, RN [address] [place] [address] Specialty Care CoordinatorHematology/Oncology11/15/22 Elizabeth Borjas MD [address] [place] [address] PhysicianHematology/Oncology11/15/22 Tremaine Gomez, NICANOR [address] [place] [address] Physician AssistantHematology/Oncology11/15/22 July Wiley, [facility] Social Worker11/21/22Te MemberRelationshipSpecialtyStart DateEnd Julian Burton MD PCP - GeneralFamily Medicine10/26/[address] [place] [address] Registered DietitianNutrition11/04/22 Chiqui Modi, RN [address] [place] [address] Specialty Care CoordinatorHematology/Oncology11/15/22 Elizabeth Borjas MD [address] [place] [address] PhysicianHematology/Oncology11/15/22 Tremaine Gomez PA-C [address] [facility] [place] [place] [address] Physician AssistantHematology/Oncology11/15/22 July Wiley, [facility] Social Worker11/21/22Team MemberRelationshipSpecialtyStart DateEnd Julian Burton MD PCP - GeneralFamily Medicine10/26/[address] [facility] [place] [place] [address] Registered DietitianNutrition11/04/22 Chiqui Modi RN [address] [place] [address] Specialty Care CoordinatorHematology/Oncology11/15/22 Elizabeth Borjas MD [address] [place] [address] PhysicianHematology/Oncology/ Tremaine Gomez PA-C [address] [place] [address] Physician AssistantHematology/Oncology11/15/22 July Wiley, [facility] Social Worker11/21/22Team MemberRelationshipSpecialtyStart End Julian Burton MD PCP - GeneralFamily Medicine10/26/[address] [place] [address] Registered DietitianNutrition11/04/22 Chiqui Modi RN [address] [place] [address] Specialty Care CoordinatorHematology/Oncology11/15/22 Elizabeth Borjas MD [address] [place] [address] PhysicianHematology/Oncology2 Tremaine Gomez PA-C [address] [place] [address] Physician AssistantHematology/Oncology11/15/22 July Wiley, [employer] Social Worker11/21/22Team MemberRelationshipSpecialtyStart End Julian Burton MD PCP - GeneralFamily Medicine10/26/[address] [place] [address] Registered DietitianNutrition11/04/22 Chiqui Modi RN [address] [facility] [place] [address] Specialty Care CoordinatorHematology/Oncology11/15/22 Elizabeth Borjas MD [address] [place] [address] PhysicianHematology/Oncology2 Tremaine Gomez PA-C [address] [facility] [place] [address] Physician AssistantHematology/Oncology11/15/22 July Wiley, [employer] Social Worker11/21/22Team MemberRelationshipSpecialtyStart End Julian Burton MD PCP - GeneralFamily Medicine10/26/[address] [place] [address] Registered DietitianNutrition11/04/22 Chiqui Modi, ONELIA [address] [place] [address] Specialty Care CoordinatorHematology/Oncology11/15/22 Tremaine Gomez, OLIMPIAC [address] [place] [address] Physician AssistantHematology/Oncology11/15/22 July Wiley, [facility] Social Worker11/21/22 Lakia Medina MD [address] [place] [address] PhysicianHematology/Oncology06/24/24Team MemberRelationshipSpecialtyStart DateEnd Julian Burton MD PCP - GeneralFamily Medicine10/26/[address] [place] [address] Registered DietitianNutrition11/04/22 Chiqui Modi RN [address] [place] [address] Specialty Care CoordinatorHematology/Oncology11/15/22 Tremaine Gomez PA-C [address] [place] [address] Physician AssistantHematology/Oncology11/15/22 July Wiley, [facility] Social Worker11/21/22 Lakia Medina MD [address] [place] [address] PhysicianHematology/Oncology06/24/24Team MemberRelationshipSpecialtyStart DateEnd Julian Burton MD PCP - GeneralFamily Medicine10/26/[address] [place] [address] Registered DietitianNutrition11/04/22 Chiqui Modi, RN [address] [place] [address] Specialty Care CoordinatorHematology/Oncology11/15/22 Tremaine Gomez, PA-C [address] [place] [address] Physician AssistantHematology/Oncology11/15/22 July Wiley, [facility] Social Worker11/21/22 Lakia Medina MD [address] [place] [address] PhysicianHematology/Oncology06/24/24Team MemberRelationshipSpecialtyStart DateEnd Julian Burton MD PCP - GeneralFamily Medicine10/26/[address] [place] [address] Registered DietitianNutrition11/04/22 Chiqui Modi, RN [address] [place] [address] Specialty Care CoordinatorHematology/Oncology11/15/22 Tremaine Gomez, PA-C [address] [place] [address] Physician AssistantHematology/Oncology11/15/22 July Wiley, [employer] Social Worker11/21/22 Lakia Medina MD [address] [place] [address] PhysicianHematology/Oncology06/24/24Team MemberRelationshipSpecialtyStart DateEnd Date Julian Burton MD PCP - GeneralFamily Medicine10/26/[address] [place] [address] Registered DietitianNutrition11/04/22Team MemberRelationshipSpecialtyStart Date End Julian Burton MD PCP - GeneralFamily Medicine10/26/[address] [facility] [place] [place] [address] Registered DietitianNutrition11/04/22 Chiqui Modi, RN [address] [place] [address] Specialty Care CoordinatorHematology/Oncology11/15/22 Elizabeth Borjas MD [address] [place] [address] PhysicianHematology/Oncology Tremaine Gomez, PAMaguiC [address] [place] [address] Physician AssistantHematology/Oncology11/15/22 July Wiley, [employer] Social Worker11/21/22Team MemberRelationshipSpecialtyStart DateEnd Date Julian Burton MD PCP - GeneralFamily Medicine10/26/[address] [place] [address] Registered DietitianNutrition11/04/22Team MemberRelationshipSpecialtyStart Date End Julian Burton MD PCP - GeneralFamily Medicine10/26/[address] [place] [address] Registered DietitianNutrition11/04/22 Chiqui Modi RN [address] [place] [address] Specialty Care CoordinatorHematology/Oncology11/15/22 Tremaine Gomez, PAMaguiC [address] [place] [address] Physician AssistantHematology/Oncology11/15/22 July Wiley, [facility] Social Worker11/21/22 Lakia Medina MD [address] [place] [address] PhysicianHematology/Oncology06/24/24Team MemberRelationshipSpecialtyStart DateEnd Date Julian Burton MD PCP - GeneralFamily Medicine10/26/[address] [place] [address] Registered DietitianNutrition11/04/22 Chiqui Modi RN [address] [place] [address] Specialty Care CoordinatorHematology/Oncology11/15/22 Tremaine Gomez PA-C [address] [place] [address] Physician AssistantHematology/Oncology11/15/22 July iWley, [facility] Social Worker11/21/22 Lakia Medina MD [address] [place] [address] PhysicianHematology/Oncology06/24/24Team MemberRelationshipSpecialtyStart DateEnd Date Julian Burton MD PCP - GeneralFamily Medicine10/26/[address] [place], [id number] Registered DietitianNutrition11/04/22 Chiqui Modi RN [address] [place], [id number] Specialty Care CoordinatorHematology/Oncology11/15/22 Tremaine Gomez PA-C [address] [place] [address] [place] [address] Physician AssistantHematology/Oncology11/15/22 July Wiley, [facility] Social Worker11/21/22 Lakia Medina MD [address] [place] [address] PhysicianHematology/Oncology06/24/24Team MemberRelationshipSpecialtyStart DateEnd Julian Burton MD [address] [place] [address] PCP - GeneralFamily Medicine03/09/23Team MemberRelationshipSpecialtyStart DateEnd Date Julian Burton MD [address] [place] [address], [place] [address] PCP - GeneralFamily Medicine03/09/23Team MemberRelationshipSpecialtyStart DateEnd Date Julian Burton MD PCP - GeneralFamily Medicine10/26/[address] [place] [address] Registered DietitianNutrition11/04/22 Chiqui Modi RN [address] [place] [address] Specialty Care CoordinatorHematology/Oncology11/15/22 Tremaine Gomez PA-C [address] [place] [address] Physician AssistantHematology/Oncology11/15/22 July Wiley, [facility] Social Worker11/21/22 Lakia Medina MD [address] [place] [address] PhysicianHematology/Oncology06/24/24Team MemberRelationshipSpecialtyStart DateEnd Date Julian Burton MD PCP - GeneralFamily Medicine10/26/[address] [place] [address] Registered DietitianNutrition11/04/22 Chiqui Modi RN [address] [place] [address] Specialty Care CoordinatorHematology/Oncology11/15/22 Tremaine Gomez PA-C [address] [place] [address] [place], [id number] Physician AssistantHematology/Oncology11/15/22 July Wiley, [facility] Social Worker11/21/22 Lakia Medina MD [address] [place] [address] [place], [id number] PhysicianHematology/Oncology06/24/24Team MemberRelationshipSpecialtyStart DateEnd [facility] Julian Burton MD [address] [place] [address] PCP - GeneralFamily Medicine03/09/23Team MemberRelationshipSpecialtyStart DateEnd [facility] Julian Burton MD [address] [place] [address] PCP - GeneralFamily Medicine03/09/23Team MemberRelationshipSpecialtyStart [facility] Julian Burton MD PCP - GeneralFamily Medicine10/26/[address] [place], [id number] Registered DietitianNutrition11/04/22 Chiqui Modi, RN [address] [place] [address] Specialty Care CoordinatorHematology/Oncology11/15/22 Tremaine Gomez PA-C [address] [place] [address] [place] [address] Physician AssistantHematology/Oncology11/15/22 July Wiley, [facility] [facility] Social Worker11/21/22 Lakia Medina MD [address] [place] [address] [place] [address] PhysicianHematology/Oncology06/24/24Team MemberRelationshipSpecialtyStart End Date Julian Burton MD [address] [place] [address], [place] [address] PCP - GeneralFamily Medicine03/09/23Te MemberRelationshipSpecialtyStart End Julian Burton MD PCP - GeneralFamily Medicine10/26/[address] [place] [address] [address] [place], [id number] Registered DietitianNutrition11/04/22 Chiqui Modi RN [address] [place], [id number] Specialty Care CoordinatorHematology/Oncology11/15/22 Tremaine Gomez, PAMaguiC [address] [place] [address] [place] [address] Physician AssistantHematology/Oncology11/15/22 July Wiley, [facility] Social Worker11/21/22 Lakia Medina MD [address] [place] [address] [place] [address] PhysicianHematology/Oncology06/24/24Te MemberRelationshipSpecialtyStart End Julian Burton MD PCP - GeneralFamily Medicine10/26/[address] [place] [address] Registered DietitianNutrition11/04/22 Chiqui Modi, ONELIA [address] [place] [address] Specialty Care CoordinatorHematology/Oncology11/15/22 Tremaine Gomez, PA-C [address] [place] [address] Physician AssistantHematology/Oncology11/15/22 July Wiley, [facility] Social Worker11/21/22 Lakia Medina MD [address] [place] [address] PhysicianHematology/Oncology06/24/24Team MemberRelationshipSpecialtyStart DateEnd Date Julian Burton MD PCP - GeneralFamily Medicine10/26/[address] [place] [address] Registered DietitianNutrition11/04/22 Chiqui Modi RN [address] [place] [address] Specialty Care CoordinatorHematology/Oncology11/15/22 Tremaine Gomez, FRANCISCO-Zack [address] [place] [address] Physician AssistantHematology/Oncology11/15/22 July Wiley, [facility] Social Worker11/21/22 Lakia Medina MD [address] [place] [address] PhysicianHematology/Oncology06/24/24Team MemberRelationshipSpecialtyStart DateEnd Julian Burton MD PCP - GeneralFamily Medicine10/26/[address] [place] [address] Registered DietitianNutrition11/04/22 Chiqui Modi, RN [address] [place] [address] Specialty Care CoordinatorHematology/Oncology11/15/22 Tremaine Gomez PA-C [address] [place] [address] Physician AssistantHematology/Oncology11/15/22 July Wiley, [facility] Social Worker11/21/22 Lakia Medina MD [address] [place] [address] PhysicianHematology/Oncology06/24/24Team MemberRelationshipSpecialtyStart DateEnd Julian Burton MD PCP - GeneralFamily Medicine10/26/[address] [place] [address] Registered DietitianNutrition11/04/22 Chiqui Modi, RN [address] [place] [address] Specialty Care CoordinatorHematology/Oncology11/15/22 Tremaine Gomez PA-Zack [address] [place] [address] Physician AssistantHematology/Oncology11/15/22 July Wiley, [facility] [facility] [employer] Social Worker11/21/22 Lakia Medina MD [address] [place] [address] PhysicianHematology/Oncology06/24/24Team MemberRelationshipSpecialtyStart DateEnd Date Julian Burton MD [address] [place] [phone] PCP - GeneralFamily Medicine03/09/23Team MemberRelationshipSpecialtyStart DateEnd Date Julian Burton MD PCP - GeneralFamily Medicine10/26/[address] [place], [id number] Registered DietitianNutrition11/04/22 Chiqui Modi RN [address] [place], [id number] Specialty Care CoordinatorHematology/Oncology11/15/22 Tremaine Gomez, PAMaguiC [address] [facility] [address] [place], [id number] Physician AssistantHematology/Oncology11/15/22 July Wiley, [facility] Social Worker11/21/22 Lakia Medina MD [address] [place] [address] PhysicianHematology/Oncology06/24/24Team MemberRelationshipSpecialtyStart End Julian Burton MD PCP - GeneralFamily Medicine10/26/[address] [facility] [place] [place] [address] Registered DietitianNutrition11/04/22 Chiqui Modi, RN [address] [place] [address] Specialty Care CoordinatorHematology/Oncology11/15/22 Tremaine Gomez, OLIMPIAC [address] [facility] [place] [place] [address] Physician AssistantHematology/Oncology11/15/22 July Wiley, [facility] Social Worker11/21/22 Lakia Medina MD [address] [facility] [place] [place] [address] PhysicianHematology/Oncology06/24/24Team MemberRelationshipSpecialtyStart DateEnd Julian Burton MD PCP - GeneralFamily Medicine10/26/[address] [facility] [place] [place] [address] Registered DietitianNutrition11/04/22 Chiqui Modi RN [address] [facility] [place] [place] [address] Specialty Care CoordinatorHematology/Oncology11/15/22 Tremaine Gomez, FRANCISCO-Zack [address] [place] [address] Physician AssistantHematology/Oncology11/15/22 July Wiley, [facility] Social Worker11/21/22 aLkia Medina MD [address] [place] [address] PhysicianHematology/Oncology06/24/24Team MemberRelationshipSpecialtyStart DateEnd Date Julian Burton MD PCP - GeneralFamily Medicine10/26/[address] [place] [address] Registered DietitianNutrition11/04/22 Chiqui Modi, RN [address] [place] [address] Specialty Care CoordinatorHematology/Oncology11/15/22 Tremaine Gomez PA-C [address] [place] [address] Physician AssistantHematology/Oncology11/15/22 July Wiley, [facility] Social Worker11/21/22 Lakia Medina MD [address] [place] [address] PhysicianHematology/Oncology06/24/24Team MemberRelationshipSpecialtyStart DateEnd Date Julian Burton MD PCP - GeneralFamily Medicine10/26/[address] [place] [address] Registered DietitianNutrition11/04/22 Chiqui Modi, RN [address] [place] [address] Specialty Care CoordinatorHematology/Oncology11/15/22 Tremaine Gomez PAAutumn [address] [place] [address] Physician AssistantHematology/Oncology11/15/22 uJly Wiley, [employer] Social Worker11/21/22 Lakia Medina MD [address] [place] [address] PhysicianHematology/Oncology06/24/24Team MemberRelationshipSpecialtyStart DateEnd Date Julian Burton MD [address] [place] [place] [address] PCP - GeneralFamily Medicine04/28/25Team MemberRelationshipSpecialtyStart DateEnd Julian Burton MD [address] [place] [place] [address] PCP - GeneralFamily Medicine04/28/25Team MemberRelationshipSpecialtyStart DateEnd Date Julian Burton MD PCP - GeneralFamily Medicine10/26/[address] [place], [id number] Registered DietitianNutrition11/04/22 Chiqui Modi RN [address] [place], [id number] Specialty Care CoordinatorHematology/Oncology11/15/22 Tremaine Gomez PAMaguiC [address] [place] [address] Physician AssistantHematology/Oncology11/15/22 July Wiley, [facility] Social Worker11/21/22 Lakia Medina MD [address] [place], [id number] PhysicianHematology/Oncology06/24/24Team MemberRelationshipSpecialtyStart DateEnd Date Julian Burton MD PCP - GeneralFamily Medicine10/26/[address] [place] [address] Registered DietitianNutrition11/04/22 Chiqui Modi, RN [address] [place] [address] Specialty Care CoordinatorHematology/Oncology11/15/22 Tremaine Gomez, PAAutumn [address] [place] [address] Physician AssistantHematology/Oncology11/15/22 July Wiley, [facility] Social Worker11/21/22 Lakia Medina MD [address] [place] [address] PhysicianHematology/Oncology06/24/24Team MemberRelationshipSpecialtyStart DateEnd Date Julian Burton MD PCP - GeneralFamily Medicine10/26/[address] [place] [address] Registered DietitianNutrition11/04/22 Chiqui Modi, RN [address] [place] [address] Specialty Care CoordinatorHematology/Oncology11/15/22 Tremaine Gomez PA-C [address] [place] [address] Physician AssistantHematology/Oncology11/15/22 July Wiley, [facility] Social Worker11/21/22 Lakia Medina MD [address] [place] [address] PhysicianHematology/Oncology06/24/24Team MemberRelationshipSpecialtyStart DateEnd Date Julian Burton MD PCP - GeneralFamily Medicine10/26/[address] [place] [address] Registered DietitianNutrition11/04/22 Chiqui Modi, RN [address] [facility] [place] [place] [address] Specialty Care CoordinatorHematology/Oncology11/15/22 Tremaine Gomez, PAMaguiC [address] [facility] [place] [place] [address] Physician AssistantHematology/Oncology11/15/22 July Wiley, [facility] Social Worker11/21/22 Lakia Medina MD [address] [facility] [place] [place] [address] PhysicianHematology/Oncology06/24/24Team MemberRelationshipSpecialtyStart DateEnd Date Julian Burton MD [address] [place] [place] [address] PCP - [facility] Medicine04/28/25Team MemberRelationshipSpecialtyStart DateEnd Date Julian Burton MD [address] [place] [address] [facility]04/28/25 Source Comments (unrecognize d section and content) In the event this informatio n is protected by the Federal Confidentiality of Alcohol and Drug Abuse Patient Records regulations: The Federal rules restrict any use of the information to criminally investigate or prosecute any alcohol or drug abuse patient.[facility] HospitalIn the event this information is protected by the Federal Confidentiality of Alcohol and Drug Abuse Patient Records regulations: The Federal rules restrict any use of the information to criminally investigate or prosecute any alcohol or drug abuse patient.[facility] HospitalIn the event this information is protected by the Federal Confidentiality of Alcohol and Drug Abuse Patient Records regulations: The Federal rules restrict any use of the information to criminally investigate or prosecute any alcohol or drug abuse patient.[facility] HospitalIn the event this information is protected by the Federal Confidentiality of Alcohol and Drug Abuse Patient Records regulations: The Federal rules restrict any use of the information to criminally investigate or prosecute any alcohol or drug abuse patient.[facility] HospitalIn the event this information is protected by the Federal Confidentiality of Alcohol and Drug Abuse Patient Records regulations: The Federal rules restrict any use of the information to criminally investigate or prosecute any alcohol or drug abuse patient.[facility] HospitalIn the event this information is protected by the Federal Confidentiality of Alcohol and Drug Abuse Patient Records regulations: The Federal rules restrict any use of the information to criminally investigate or prosecute any alcohol or drug abuse patient.[facility] HospitalIn the event this information is protected by the Federal Confidentiality of Alcohol and Drug Abuse Patient Records regulations: The Federal rules restrict any use of the information to criminally investigate or prosecute any alcohol or drug abuse patient.[facility] HospitalIn the event this information is protected by the Federal Confidentiality of Alcohol and Drug Abuse Patient Records regulations: The Federal rules restrict any use of the information to criminally investigate or prosecute any alcohol or drug abuse patient.[facility] HospitalIn the event this information is protected by the Federal Confidentiality of Alcohol and Drug Abuse Patient Records regulations: The Federal rules restrict any use of the information to criminally investigate or prosecute any alcohol or drug abuse patient.[facility] HospitalIn the event this information is protected by the Federal Confidentiality of Alcohol and Drug Abuse Patient Records regulations: The Federal rules restrict any use of the information to criminally investigate or prosecute any alcohol or drug abuse patient.[facility] HospitalIn the event this information is protected by the Federal Confidentiality of Alcohol and Drug Abuse Patient Records regulations: The Federal rules restrict any use of the information to criminally investigate or prosecute any alcohol or drug abuse patient.[facility] HospitalIn the event this information is protected by the Federal Confidentiality of Alcohol and Drug Abuse Patient Records regulations: The Federal rules restrict any use of the information to criminally investigate or prosecute any alcohol or drug abuse patient.[facility] HospitalIn the event this information is protected by the Federal Confidentiality of Alcohol and Drug Abuse Patient Records regulations: The Federal rules restrict any use of the information to criminally investigate or prosecute any alcohol or drug abuse patient.[facility] HospitalIn the event this information is protected by the Federal Confidentiality of Alcohol and Drug Abuse Patient Records regulations: The Federal rules restrict any use of the information to criminally investigate or prosecute any alcohol or drug abuse patient.[facility] HospitalIn the event this information is protected by the Federal Confidentiality of Alcohol and Drug Abuse Patient Records regulations: The Federal rules restrict any use of the information to criminally investigate or prosecute any alcohol or drug abuse patient.[facility] HospitalIn the event this information is protected by the Federal Confidentiality of Alcohol and Drug Abuse Patient Records regulations: The Federal rules restrict any use of the information to criminally investigate or prosecute any alcohol or drug abuse patient.[facility] HospitalIn the event this information is protected by the Federal Confidentiality of Alcohol and Drug Abuse Patient Records regulations: The Federal rules restrict any use of the information to criminally investigate or prosecute any alcohol or drug abuse patient.[facility] HospitalIn the event this information is protected by the Federal Confidentiality of Alcohol and Drug Abuse Patient Records regulations: The Federal rules restrict any use of the information to criminally investigate or prosecute any alcohol or drug abuse patient.[facility] HospitalIn the event this information is protected by the Federal Confidentiality of Alcohol and Drug Abuse Patient Records regulations: The Federal rules restrict any use of the information to criminally investigate or prosecute any alcohol or drug abuse patient.[facility]In the event this information is protected by the Federal Confidentiality of Alcohol and Drug Abuse Patient Records regulations: The Federal rules restrict any use of the information to criminally investigate or prosecute any alcohol or drug abuse patient.[facility] HospitalIn the event this information is protected by the Federal Confidentiality of Alcohol and Drug Abuse Patient Records regulations: The Federal rules restrict any use of the information to criminally investigate or prosecute any alcohol or drug abuse patient.[facility] HospitalIn the event this information is protected by the Federal Confidentiality of Alcohol and Drug Abuse Patient Records regulations: The Federal rules restrict any use of the information to criminally investigate or prosecute any alcohol or drug abuse patient.[facility] HospitalIn the event this information is protected by the Federal Confidentiality of Alcohol and Drug Abuse Patient Records regulations: The Federal rules restrict any use of the information to criminally investigate or prosecute any alcohol or drug abuse patient.[facility] HospitalIn the event this information is protected by the Federal Confidentiality of Alcohol and Drug Abuse Patient Records regulations: The Federal rules restrict any use of the information to criminally investigate or prosecute any alcohol or drug abuse patient.[facility] HospitalIn the event this information is protected by the Federal Confidentiality of Alcohol and Drug Abuse Patient Records regulations: The Federal rules restrict any use of the information to criminally investigate or prosecute any alcohol or drug abuse patient.[facility] HospitalIn the event this information is protected by the Federal Confidentiality of Alcohol and Drug Abuse Patient Records regulations: The Federal rules restrict any use of the information to criminally investigate or prosecute any alcohol or drug abuse patient.[facility] HospitalIn the event this information is protected by the Federal Confidentiality of Alcohol and Drug Abuse Patient Records regulations: The Federal rules restrict any use of the information to criminally investigate or prosecute any alcohol or drug abuse patient.[facility] HospitalIn the event this information is protected by the Federal Confidentiality of Alcohol and Drug Abuse Patient Records regulations: The Federal rules restrict any use of the information to criminally investigate or prosecute any alcohol or drug abuse patient.[facility] HospitalIn the event this information is protected by the Federal Confidentiality of Alcohol and Drug Abuse Patient Records regulations: The Federal rules restrict any use of the information to criminally investigate or prosecute any alcohol or drug abuse patient.[facility] HospitalIn the event this information is protected by the Federal Confidentiality of Alcohol and Drug Abuse Patient Records regulations: The Federal rules restrict any use of the information to criminally investigate or prosecute any alcohol or drug abuse patient.[facility] HospitalIn the event this information is protected by the Federal Confidentiality of Alcohol and Drug Abuse Patient Records regulations: The Federal rules restrict any use of the information to criminally investigate or prosecute any alcohol or drug abuse patient.[facility] HospitalIn the event this information is protected by the Federal Confidentiality of Alcohol and Drug Abuse Patient Records regulations: The Federal rules restrict any use of the information to criminally investigate or prosecute any alcohol or drug abuse patient.[facility] HospitalIn the event this information is protected by the Federal Confidentiality of Alcohol and Drug Abuse Patient Records regulations: The Federal rules restrict any use of the information to criminally investigate or prosecute any alcohol or drug abuse patient.[facility] HospitalIn the event this information is protected by the Federal Confidentiality of Alcohol and Drug Abuse Patient Records regulations: The Federal rules restrict any use of the information to criminally investigate or prosecute any alcohol or drug abuse patient.[facility] HospitalIn the event this information is protected by the Federal Confidentiality of Alcohol and Drug Abuse Patient Records regulations: The Federal rules restrict any use of the information to criminally investigate or prosecute any alcohol or drug abuse patient.[facility] HospitalIn the event this information is protected by the Federal Confidentiality of Alcohol and Drug Abuse Patient Records regulations: The Federal rules restrict any use of the information to criminally investigate or prosecute any alcohol or drug abuse patient.[facility] HospitalIn the event this information is protected by the Federal Confidentiality of Alcohol and Drug Abuse Patient Records regulations: The Federal rules restrict any use of the information to criminally investigate or prosecute any alcohol or drug abuse patient.[facility] HospitalIn the event this information is protected by the Federal Confidentiality of Alcohol and Drug Abuse Patient Records regulations: The Federal rules restrict any use of the information to criminally investigate or prosecute any alcohol or drug abuse patient.[facility] HospitalIn the event this information is protected by the Federal Confidentiality of Alcohol and Drug Abuse Patient Records regulations: The Federal rules restrict any use of the information to criminally investigate or prosecute any alcohol or drug abuse patient.[facility] HospitalIn the event this information is protected by the Federal Confidentiality of Alcohol and Drug Abuse Patient Records regulations: The Federal rules restrict any use of the information to criminally investigate or prosecute any alcohol or drug abuse patient.[facility] HospitalIn the event this information is protected by the Federal Confidentiality of Alcohol and Drug Abuse Patient Records regulations: The Federal rules restrict any use of the information to criminally investigate or prosecute any alcohol or drug abuse patient.[facility] HospitalIn the event this information is protected by the Federal Confidentiality of Alcohol and Drug Abuse Patient Records regulations: The Federal rules restrict any use of the information to criminally investigate or prosecute any alcohol or drug abuse patient.[facility] HospitalIn the event this information is protected by the Federal Confidentiality of Alcohol and Drug Abuse Patient Records regulations: The Federal rules restrict any use of the information to criminally investigate or prosecute any alcohol or drug abuse patient.[facility] HospitalIn the event this information is protected by the Federal Confidentiality of Alcohol and Drug Abuse Patient Records regulations: The Federal rules restrict any use of the information to criminally investigate or prosecute any alcohol or drug abuse patient.[facility] HospitalIn the event this information is protected by the Federal Confidentiality of Alcohol and Drug Abuse Patient Records regulations: The Federal rules restrict any use of the information to criminally investigate or prosecute any alcohol or drug abuse patient.[facility] HospitalIn the event this information is protected by the Federal Confidentiality of Alcohol and Drug Abuse Patient Records regulations: The Federal rules restrict any use of the information to criminally investigate or prosecute any alcohol or drug abuse patient.[facility] HospitalIn the event this information is protected by the Federal Confidentiality of Alcohol and Drug Abuse Patient Records regulations: The Federal rules restrict any use of the information to criminally investigate or prosecute any alcohol or drug abuse patient.[facility] HospitalIn the event this information is protected by the Federal Confidentiality of Alcohol and Drug Abuse Patient Records regulations: The Federal rules restrict any use of the information to criminally investigate or prosecute any alcohol or drug abuse patient.[facility] HospitalIn the event this information is protected by the Federal Confidentiality of Alcohol and Drug Abuse Patient Records regulations: The Federal rules restrict any use of the information to criminally investigate or prosecute any alcohol or drug abuse patient.[facility] HospitalIn the event this information is protected by the Federal Confidentiality of Alcohol and Drug Abuse Patient Records regulations: The Federal rules restrict any use of the information to criminally investigate or prosecute any alcohol or drug abuse patient.[facility] HospitalIn the event this information is protected by the Federal Confidentiality of Alcohol and Drug Abuse Patient Records regulations: The Federal rules restrict any use of the information to criminally investigate or prosecute any alcohol or drug abuse patient.[facility] HospitalIn the event this information is protected by the Federal Confidentiality of Alcohol and Drug Abuse Patient Records regulations: The Federal rules restrict any use of the information to criminally investigate or prosecute any alcohol or drug abuse patient.[facility] HospitalIn the event this information is protected by the Federal Confidentiality of Alcohol and Drug Abuse Patient Records regulations: The Federal rules restrict any use of the information to criminally investigate or prosecute any alcohol or drug abuse patient.[facility] HospitalIn the event this information is protected by the Federal Confidentiality of Alcohol and Drug Abuse Patient Records regulations: The Federal rules restrict any use of the information to criminally investigate or prosecute any alcohol or drug abuse patient.[facility] HospitalIn the event this information is protected by the Federal Confidentiality of Alcohol and Drug Abuse Patient Records regulations: The Federal rules restrict any use of the information to criminally investigate or prosecute any alcohol or drug abuse patient.[facility] HospitalIn the event this information is protected by the Federal Confidentiality of Alcohol and Drug Abuse Patient Records regulations: The Federal rules restrict any use of the information to criminally investigate or prosecute any alcohol or drug abuse patient.[facility] HospitalIn the event this information is protected by the Federal Confidentiality of Alcohol and Drug Abuse Patient Records regulations: The Federal rules restrict any use of the information to criminally investigate or prosecute any alcohol or drug abuse patient.[facility] HospitalIn the event this information is protected by the Federal Confidentiality of Alcohol and Drug Abuse Patient Records regulations: The Federal rules restrict any use of the information to criminally investigate or prosecute any alcohol or drug abuse patient.[facility] HospitalIn the event this information is protected by the Federal Confidentiality of Alcohol and Drug Abuse Patient Records regulations: The Federal rules restrict any use of the information to criminally investigate or prosecute any alcohol or drug abuse patient.[facility] HospitalIn the event this information is protected by the Federal Confidentiality of Alcohol and Drug Abuse Patient Records regulations: The Federal rules restrict any use of the information to criminally investigate or prosecute any alcohol or drug abuse patient.[facility] HospitalIn the event this information is protected by the Federal Confidentiality of Alcohol and Drug Abuse Patient Records regulations: The Federal rules restrict any use of the information to criminally investigate or prosecute any alcohol or drug abuse patient.[facility] HospitalIn the event this information is protected by the Federal Confidentiality of Alcohol and Drug Abuse Patient Records regulations: The Federal rules restrict any use of the information to criminally investigate or prosecute any alcohol or drug abuse patient.[facility] HospitalIn the event this information is protected by the Federal Confidentiality of Alcohol and Drug Abuse Patient Records regulations: The Federal rules restrict any use of the information to criminally investigate or prosecute any alcohol or drug abuse patient.[facility] HospitalIn the event this information is protected by the Federal Confidentiality of Alcohol and Drug Abuse Patient Records regulations: The Federal rules restrict any use of the information to criminally investigate or prosecute any alcohol or drug abuse patient.[facility] HospitalIn the event this information is protected by the Federal Confidentiality of Alcohol and Drug Abuse Patient Records regulations: The Federal rules restrict any use of the information to criminally investigate or prosecute any alcohol or drug abuse patient.[facility] HospitalIn the event this information is protected by the Federal Confidentiality of Alcohol and Drug Abuse Patient Records regulations: The Federal rules restrict any use of the information to criminally investigate or prosecute any alcohol or drug abuse patient.[facility] HospitalIn the event this information is protected by the Federal Confidentiality of Alcohol and Drug Abuse Patient Records regulations: The Federal rules restrict any use of the information to criminally investigate or prosecute any alcohol or drug abuse patient.[facility] HospitalIn the event this information is protected by the Federal Confidentiality of Alcohol and Drug Abuse Patient Records regulations: The Federal rules restrict any use of the information to criminally investigate or prosecute any alcohol or drug abuse patient.[facility] HospitalIn the event this information is protected by the Federal Confidentiality of Alcohol and Drug Abuse Patient Records regulations: The Federal rules restrict any use of the information to criminally investigate or prosecute any alcohol or drug abuse patient.[facility]In the event this information is protected by the Federal Confidentiality of Alcohol and Drug Abuse Patient Records regulations: The Federal rules restrict any use of the information to criminally investigate or prosecute any alcohol or drug abuse patient.[facility] HospitalIn the event this information is protected by the Federal Confidentiality of Alcohol and Drug Abuse Patient Records regulations: The Federal rules restrict any use of the information to criminally investigate or prosecute any alcohol or drug abuse patient.[facility] HospitalIn the event this information is protected by the Federal Confidentiality of Alcohol and Drug Abuse Patient Records regulations: The Federal rules restrict any use of the information to criminally investigate or prosecute any alcohol or drug abuse patient.[facility] HospitalIn the event this information is protected by the Federal Confidentiality of Alcohol and Drug Abuse Patient Records regulations: The Federal rules restrict any use of the information to criminally investigate or prosecute any alcohol or drug abuse patient.[facility] HospitalIn the event this information is protected by the Federal Confidentiality of Alcohol and Drug Abuse Patient Records regulations: The Federal rules restrict any use of the information to criminally investigate or prosecute any alcohol or drug abuse patient.[facility] HospitalIn the event this information is protected by the Federal Confidentiality of Alcohol and Drug Abuse Patient Records regulations: The Federal rules restrict any use of the information to criminally investigate or prosecute any alcohol or drug abuse patient.[facility] HospitalIn the event this information is protected by the Federal Confidentiality of Alcohol and Drug Abuse Patient Records regulations: The Federal rules restrict any use of the information to criminally investigate or prosecute any alcohol or drug abuse patient.[facility] HospitalIn the event this information is protected by the Federal Confidentiality of Alcohol and Drug Abuse Patient Records regulations: The Federal rules restrict any use of the information to criminally investigate or prosecute any alcohol or drug abuse patient.[facility] HospitalIn the event this information is protected by the Federal Confidentiality of Alcohol and Drug Abuse Patient Records regulations: The Federal rules restrict any use of the information to criminally investigate or prosecute any alcohol or drug abuse patient.[facility] HospitalIn the event this information is protected by the Federal Confidentiality of Alcohol and Drug Abuse Patient Records regulations: The Federal rules restrict any use of the information to criminally investigate or prosecute any alcohol or drug abuse patient.[facility] HospitalIn the event this information is protected by the Federal Confidentiality of Alcohol and Drug Abuse Patient Records regulations: The Federal rules restrict any use of the information to criminally investigate or prosecute any alcohol or drug abuse patient.[facility] HospitalIn the event this information is protected by the Federal Confidentiality of Alcohol and Drug Abuse Patient Records regulations: The Federal rules restrict any use of the information to criminally investigate or prosecute any alcohol or drug abuse patient.[facility] HospitalIn the event this information is protected by the Federal Confidentiality of Alcohol and Drug Abuse Patient Records regulations: The Federal rules restrict any use of the information to criminally investigate or prosecute any alcohol or drug abuse patient.[facility] HospitalIn the event this information is protected by the Federal Confidentiality of Alcohol and Drug Abuse Patient Records regulations: The Federal rules restrict any use of the information to criminally investigate or prosecute any alcohol or drug abuse patient.[facility] HospitalIn the event this information is protected by the Federal Confidentiality of Alcohol and Drug Abuse Patient Records regulations: The Federal rules restrict any use of the information to criminally investigate or prosecute any alcohol or drug abuse patient.[facility] HospitalIn the event this information is protected by the Federal Confidentiality of Alcohol and Drug Abuse Patient Records regulations: The Federal rules restrict any use of the information to criminally investigate or prosecute any alcohol or drug abuse patient.[facility] HospitalIn the event this information is protected by the Federal Confidentiality of Alcohol and Drug Abuse Patient Records regulations: The Federal rules restrict any use of the information to criminally investigate or prosecute any alcohol or drug abuse patient.[facility] HospitalIn the event this information is protected by the Federal Confidentiality of Alcohol and Drug Abuse Patient Records regulations: The Federal rules restrict any use of the information to criminally investigate or prosecute any alcohol or drug abuse patient.[facility] HospitalIn the event this information is protected by the Federal Confidentiality of Alcohol and Drug Abuse Patient Records regulations: The Federal rules restrict any use of the information to criminally investigate or prosecute any alcohol or drug abuse patient.[facility] HospitalIn the event this information is protected by the Federal Confidentiality of Alcohol and Drug Abuse Patient Records regulations: The Federal rules restrict any use of the information to criminally investigate or prosecute any alcohol or drug abuse patient.[facility] HospitalIn the event this information is protected by the Federal Confidentiality of Alcohol and Drug Abuse Patient Records regulations: The Federal rules restrict any use of the information to criminally investigate or prosecute any alcohol or drug abuse patient.[facility] HospitalIn the event this information is protected by the Federal Confidentiality of Alcohol and Drug Abuse Patient Records regulations: The Federal rules restrict any use of the information to criminally investigate or prosecute any alcohol or drug abuse patient.[facility] HospitalIn the event this information is protected by the Federal Confidentiality of Alcohol and Drug Abuse Patient Records regulations: The Federal rules restrict any use of the information to criminally investigate or prosecute any alcohol or drug abuse patient.[facility] HospitalIn the event this information is protected by the Federal Confidentiality of Alcohol and Drug Abuse Patient Records regulations: The Federal rules restrict any use of the information to criminally investigate or prosecute any alcohol or drug abuse patient.[facility] HospitalIn the event this information is protected by the Federal Confidentiality of Alcohol and Drug Abuse Patient Records regulations: The Federal rules restrict any use of the information to criminally investigate or prosecute any alcohol or drug abuse patient.[facility] HospitalIn the event this information is protected by the Federal Confidentiality of Alcohol and Drug Abuse Patient Records regulations: The Federal rules restrict any use of the information to criminally investigate or prosecute any alcohol or drug abuse patient.[facility] HospitalIn the event this information is protected by the Federal Confidentiality of Alcohol and Drug Abuse Patient Records regulations: The Federal rules restrict any use of the information to criminally investigate or prosecute any alcohol or drug abuse patient.[facility] HospitalIn the event this information is protected by the Federal Confidentiality of Alcohol and Drug Abuse Patient Records regulations: The Federal rules restrict any use of the information to criminally investigate or prosecute any alcohol or drug abuse patient.[facility] HospitalIn the event this information is protected by the Federal Confidentiality of Alcohol and Drug Abuse Patient Records regulations: The Federal rules restrict any use of the information to criminally investigate or prosecute any alcohol or drug abuse patient.[facility] HospitalIn the event this information is protected by the Federal Confidentiality of Alcohol and Drug Abuse Patient Records regulations: The Federal rules restrict any use of the information to criminally investigate or prosecute any alcohol or drug abuse patient.[facility] HospitalIn the event this information is protected by the Federal Confidentiality of Alcohol and Drug Abuse Patient Records regulations: The Federal rules restrict any use of the information to criminally investigate or prosecute any alcohol or drug abuse patient.[facility] HospitalIn the event this information is protected by the Federal Confidentiality of Alcohol and Drug Abuse Patient Records regulations: The Federal rules restrict any use of the information to criminally investigate or prosecute any alcohol or drug abuse patient.[facility] HospitalIn the event this information is protected by the Federal Confidentiality of Alcohol and Drug Abuse Patient Records regulations: The Federal rules restrict any use of the information to criminally investigate or prosecute any alcohol or drug abuse patient.[facility] HospitalIn the event this information is protected by the Federal Confidentiality of Alcohol and Drug Abuse Patient Records regulations: The Federal rules restrict any use of the information to criminally investigate or prosecute any alcohol or drug abuse patient.[facility] HospitalIn the event this information is protected by the Federal Confidentiality of Alcohol and Drug Abuse Patient Records regulations: The Federal rules restrict any use of the information to criminally investigate or prosecute any alcohol or drug abuse patient.[facility] HospitalIn the event this information is protected by the Federal Confidentiality of Alcohol and Drug Abuse Patient Records regulations: The Federal rules restrict any use of the information to criminally investigate or prosecute any alcohol or drug abuse patient.[facility] HospitalIn the event this information is protected by the Federal Confidentiality of Alcohol and Drug Abuse Patient Records regulations: The Federal rules restrict any use of the information to criminally investigate or prosecute any alcohol or drug abuse patient.[facility] HospitalIn the event this information is protected by the Federal Confidentiality of Alcohol and Drug Abuse Patient Records regulations: The Federal rules restrict any use of the information to criminally investigate or prosecute any alcohol or drug abuse patient.[facility] HospitalIn the event this information is protected by the Federal Confidentiality of Alcohol and Drug Abuse Patient Records regulations: The Federal rules restrict any use of the information to criminally investigate or prosecute any alcohol or drug abuse patient.[facility] HospitalIn the event this information is protected by the Federal Confidentiality of Alcohol and Drug Abuse Patient Records regulations: The Federal rules restrict any use of the information to criminally investigate or prosecute any alcohol or drug abuse patient.[facility] HospitalIn the event this information is protected by the Federal Confidentiality of Alcohol and Drug Abuse Patient Records regulations: The Federal rules restrict any use of the information to criminally investigate or prosecute any alcohol or drug abuse patient.[facility] HospitalIn the event this information is protected by the Federal Confidentiality of Alcohol and Drug Abuse Patient Records regulations: The Federal rules restrict any use of the information to criminally investigate or prosecute any alcohol or drug abuse patient.[facility] HospitalIn the event this information is protected by the Federal Confidentiality of Alcohol and Drug Abuse Patient Records regulations: The Federal rules restrict any use of the information to criminally investigate or prosecute any alcohol or drug abuse patient.[facility] HospitalIn the event this information is protected by the Federal Confidentiality of Alcohol and Drug Abuse Patient Records regulations: The Federal rules restrict any use of the information to criminally investigate or prosecute any alcohol or drug abuse patient.[facility] HospitalIn the event this information is protected by the Federal Confidentiality of Alcohol and Drug Abuse Patient Records regulations: The Federal rules restrict any use of the information to criminally investigate or prosecute any alcohol or drug abuse patient.[facility] HospitalIn the event this information is protected by the Federal Confidentiality of Alcohol and Drug Abuse Patient Records regulations: The Federal rules restrict any use of the information to criminally investigate or prosecute any alcohol or drug abuse patient.[facility] HospitalIn the event this information is protected by the Federal Confidentiality of Alcohol and Drug Abuse Patient Records regulations: The Federal rules restrict any use of the information to criminally investigate or prosecute any alcohol or drug abuse patient.[facility] HospitalIn the event this information is protected by the Federal Confidentiality of Alcohol and Drug Abuse Patient Records regulations: The Federal rules restrict any use of the information to criminally investigate or prosecute any alcohol or drug abuse patient.[facility] HospitalIn the event this information is protected by the Federal Confidentiality of Alcohol and Drug Abuse Patient Records regulations: The Federal rules restrict any use of the information to criminally investigate or prosecute any alcohol or drug abuse patient.[facility] HospitalIn the event this information is protected by the Federal Confidentiality of Alcohol and Drug Abuse Patient Records regulations: The Federal rules restrict any use of the information to criminally investigate or prosecute any alcohol or drug abuse patient.[facility]In the event this information is protected by the Federal Confidentiality of Alcohol and Drug Abuse Patient Records regulations: The Federal rules restrict any use of the information to criminally investigate or prosecute any alcohol or drug abuse patient.[facility] HospitalIn the event this information is protected by the Federal Confidentiality of Alcohol and Drug Abuse Patient Records regulations: The Federal rules restrict any use of the information to criminally investigate or prosecute any alcohol or drug abuse patient.[facility] HospitalIn the event this information is protected by the Federal Confidentiality of Alcohol and Drug Abuse Patient Records regulations: The Federal rules restrict any use of the information to criminally investigate or prosecute any alcohol or drug abuse patient.[facility] HospitalIn the event this information is protected by the Federal Confidentiality of Alcohol and Drug Abuse Patient Records regulations: The Federal rules restrict any use of the information to criminally investigate or prosecute any alcohol or drug abuse patient.[facility] HospitalIn the event this information is protected by the Federal Confidentiality of Alcohol and Drug Abuse Patient Records regulations: The Federal rules restrict any use of the information to criminally investigate or prosecute any alcohol or drug abuse patient.[facility] HospitalIn the event this information is protected by the Federal Confidentiality of Alcohol and Drug Abuse Patient Records regulations: The Federal rules restrict any use of the information to criminally investigate or prosecute any alcohol or drug abuse patient.[facility] HospitalIn the event this information is protected by the Federal Confidentiality of Alcohol and Drug Abuse Patient Records regulations: The Federal rules restrict any use of the information to criminally investigate or prosecute any alcohol or drug abuse patient.[facility] HospitalIn the event this information is protected by the Federal Confidentiality of Alcohol and Drug Abuse Patient Records regulations: The Federal rules restrict any use of the information to criminally investigate or prosecute any alcohol or drug abuse patient.[facility] HospitalIn the event this information is protected by the Federal Confidentiality of Alcohol and Drug Abuse Patient Records regulations: The Federal rules restrict any use of the information to criminally investigate or prosecute any alcohol or drug abuse patient.[facility] HospitalIn the event this information is protected by the Federal Confidentiality of Alcohol and Drug Abuse Patient Records regulations: The Federal rules restrict any use of the information to criminally investigate or prosecute any alcohol or drug abuse patient.[facility] HospitalIn the event this information is protected by the Federal Confidentiality of Alcohol and Drug Abuse Patient Records regulations: The Federal rules restrict any use of the information to criminally investigate or prosecute any alcohol or drug abuse patient.[facility] HospitalIn the event this information is protected by the Federal Confidentiality of Alcohol and Drug Abuse Patient Records regulations: The Federal rules restrict any use of the information to criminally investigate or prosecute any alcohol or drug abuse patient.[facility] HospitalIn the event this information is protected by the Federal Confidentiality of Alcohol and Drug Abuse Patient Records regulations: The Federal rules restrict any use of the information to criminally investigate or prosecute any alcohol or drug abuse patient.[facility] HospitalIn the event this information is protected by the Federal Confidentiality of Alcohol and Drug Abuse Patient Records regulations: The Federal rules restrict any use of the information to criminally investigate or prosecute any alcohol or drug abuse patient.[facility] HospitalIn the event this information is protected by the Federal Confidentiality of Alcohol and Drug Abuse Patient Records regulations: The Federal rules restrict any use of the information to criminally investigate or prosecute any alcohol or drug abuse patient.[facility] HospitalIn the event this information is protected by the Federal Confidentiality of Alcohol and Drug Abuse Patient Records regulations: The Federal rules restrict any use of the information to criminally investigate or prosecute any alcohol or drug abuse patient.[facility] HospitalIn the event this information is protected by the Federal Confidentiality of Alcohol and Drug Abuse Patient Records regulations: The Federal rules restrict any use of the information to criminally investigate or prosecute any alcohol or drug abuse patient.[facility] HospitalIn the event this information is protected by the Federal Confidentiality of Alcohol and Drug Abuse Patient Records regulations: The Federal rules restrict any use of the information to criminally investigate or prosecute any alcohol or drug abuse patient.[facility] HospitalIn the event this information is protected by the Federal Confidentiality of Alcohol and Drug Abuse Patient Records regulations: The Federal rules restrict any use of the information to criminally investigate or prosecute any alcohol or drug abuse patient.[facility] HospitalIn the event this information is protected by the Federal Confidentiality of Alcohol and Drug Abuse Patient Records regulations: The Federal rules restrict any use of the information to criminally investigate or prosecute any alcohol or drug abuse patient.[facility] HospitalIn the event this information is protected by the Federal Confidentiality of Alcohol and Drug Abuse Patient Records regulations: The Federal rules restrict any use of the information to criminally investigate or prosecute any alcohol or drug abuse patient.[facility] HospitalIn the event this information is protected by the Federal Confidentiality of Alcohol and Drug Abuse Patient Records regulations: The Federal rules restrict any use of the information to criminally investigate or prosecute any alcohol or drug abuse patient.[facility] HospitalIn the event this information is protected by the Federal Confidentiality of Alcohol and Drug Abuse Patient Records regulations: The Federal rules restrict any use of the information to criminally investigate or prosecute any alcohol or drug abuse patient.[facility] HospitalIn the event this information is protected by the Federal Confidentiality of Alcohol and Drug Abuse Patient Records regulations: The Federal rules restrict any use of the information to criminally investigate or prosecute any alcohol or drug abuse patient.[facility] HospitalIn the event this information is protected by the Federal Confidentiality of Alcohol and Drug Abuse Patient Records regulations: The Federal rules restrict any use of the information to criminally investigate or prosecute any alcohol or drug abuse patient.[facility] HospitalIn the event this information is protected by the Federal Confidentiality of Alcohol and Drug Abuse Patient Records regulations: The Federal rules restrict any use of the information to criminally investigate or prosecute any alcohol or drug abuse patient.[facility] HospitalIn the event this information is protected by the Federal Confidentiality of Alcohol and Drug Abuse Patient Records regulations: The Federal rules restrict any use of the information to criminally investigate or prosecute any alcohol or drug abuse patient.[facility] HospitalIn the event this information is protected by the Federal Confidentiality of Alcohol and Drug Abuse Patient Records regulations: The Federal rules restrict any use of the information to criminally investigate or prosecute any alcohol or drug abuse patient.[facility] HospitalIn the event this information is protected by the Federal Confidentiality of Alcohol and Drug Abuse Patient Records regulations: The Federal rules restrict any use of the information to criminally investigate or prosecute any alcohol or drug abuse patient.[facility] HospitalIn the event this information is protected by the Federal Confidentiality of Alcohol and Drug Abuse Patient Records regulations: The Federal rules restrict any use of the information to criminally investigate or prosecute any alcohol or drug abuse patient.[facility] HospitalIn the event this information is protected by the Federal Confidentiality of Alcohol and Drug Abuse Patient Records regulations: The Federal rules restrict any use of the information to criminally investigate or prosecute any alcohol or drug abuse patient.[facility] HospitalIn the event this information is protected by the Federal Confidentiality of Alcohol and Drug Abuse Patient Records regulations: The Federal rules restrict any use of the information to criminally investigate or prosecute any alcohol or drug abuse patient.[facility] HospitalIn the event this information is protected by the Federal Confidentiality of Alcohol and Drug Abuse Patient Records regulations: The Federal rules restrict any use of the information to criminally investigate or prosecute any alcohol or drug abuse patient.[facility] HospitalIn the event this information is protected by the Federal Confidentiality of Alcohol and Drug Abuse Patient Records regulations: The Federal rules restrict any use of the information to criminally investigate or prosecute any alcohol or drug abuse patient.[facility] HospitalIn the event this information is protected by the Federal Confidentiality of Alcohol and Drug Abuse Patient Records regulations: The Federal rules restrict any use of the information to criminally investigate or prosecute any alcohol or drug abuse patient.[facility] HospitalIn the event this information is protected by the Federal Confidentiality of Alcohol and Drug Abuse Patient Records regulations: The Federal rules restrict any use of the information to criminally investigate or prosecute any alcohol or drug abuse patient.[facility] HospitalIn the event this information is protected by the Federal Confidentiality of Alcohol and Drug Abuse Patient Records regulations: The Federal rules restrict any use of the information to criminally investigate or prosecute any alcohol or drug abuse patient.[facility] HospitalIn the event this information is protected by the Federal Confidentiality of Alcohol and Drug Abuse Patient Records regulations: The Federal rules restrict any use of the information to criminally investigate or prosecute any alcohol or drug abuse patient.[facility] Reason for Visit (unrecogniz ed section and content) ReasonCommentsConsultSpecialtyDiagnoses / ProceduresReferred By ContactReferred To ContactRadiation Oncology Diagnoses Oropharnyx cancer (HCC) Procedures RAD/ONC CONSULT OFFICE/OUTPATIENT NEW HIGH MDM 60 MINUTES Karamlou, Elizabeth, MD [address] [place], [place] [id number] Referral IDStatusReasonStart DateExpiration DateVisits RequestedVisits [id number] PCP Requested Referral /[id number] and Neck CancerSpecialtyDiagnoses / ProceduresReferred By ContactReferred To ContactRadiation Oncology / RADIATION ONCOLOGY Diagnoses 1 Week Post XRT Last TX 01/06 Procedures EST POST 90 DAY RAD TX Nino Ivy MD [address] [place] [address] [address] [place] [id number] Nino Ivy MD [address] [place] [address] [address] [place] [phone] Referral IDStatusReasonStart DateExpiration DateVisits RequestedVisits [id number]/6/202312/31/[id number] Radiation Treatment Follow UpReasonCommentsoropharnyx cancerSpecialtyDiagnoses / ProceduresReferred By ContactReferred To Contact Diagnoses Oropharnyx cancer (HCC) Procedures CISPLATIN 10 MG INJECTION FOSAPREPITANT INJECTION Elizabeth Borjas MD [address] [place] [address] [address] [place] [address] Referral IDStatusReasonStart DateExpiration DateVisits RequestedVisits [id number]/8/20233/23/[id number] EducationReason CommentsConsultReasonCommentsPatient UpdateReasonCommentsOropharnyx cancerNew patient consultSpecialtyDiagnoses / ProceduresReferred By ContactReferred To ContactOncology Diagnoses Oropharnyx cancer (HCC) Procedures CONSULT TO ONCOLOGY OFFICE/[facility]IENT [facility] MDM 60-74 MINUTES Nino Ivy MD [address] [place] [address] [place] [address] Referral IDStatusReasonStart DateExpiration DateVisits RequestedVisits [id number] PCP Requested Referral /[id number] AuthorizationOndansetronReason CommentsFirst Time Treatment EducationReasonCommentsNutrition AssessmentReason Onset DateCommentsSimulation Request Form11/03/2022ReasonCommentsAppointment ReasonOnset DateCommentsSimulation Request Form11/14/2022ReasonCommentsCare CoordinationChange in treatment dateReasonCommentsNutrition CounselingSpecialty Diagnoses / ProceduresReferred By ContactReferred To Contact Diagnoses Oropharnyx cancer (HCC) Procedures CISPLATIN 10 MG INJECTION FOSAPREPITANT INJECTION Elizabeth Borjas MD [address] [place] [address] [address] [place] [address] Referral IDStatusRefreeman orthopaedics & sports medicineStbattery park DateExpiration DateVisits RequestedVisits [id number]/8/20233/[id number] InvestigationReasonCommentsLab OrdersReasonCommentsCare HzfyqoehotrrA2W0 treatment follow up callReasonCommentsRadiotherapy On-treatment VisitReason CommentsCare CoordinationToxicity checkReasonCommentsOropharnyx cancer (HCC) ReasonCommentsOropharnyx cancer1 week follow upReasonCommentsoropharynx cancer ReasonCommentsFatigueReasonCommentsRefill RequestReasonCommentsoropharnyx cancer Brain TumorTreatment visitReasonCommentsOropharnyx cancerOTV 1 weekReason CommentsResultsReasonCommentsHead and Neck CancerReasonCommentsOropharnyx cancer 3 month follow upReasonOnset DateCommentsBronchoscopy Envzwxdxxg47/26/2023 Initial Bronch RequestReasonCommentsBronchoscopy SchedulingReasonComments Radiology CTSpecialtyDiagnoses / ProceduresReferred By ContactReferred To ContactCT IMAGING Diagnoses Pulmonary nodule Preoperative examination Procedures CT CHEST WO IVCON DIAGNOSTIC COMPUTED TOMOGRAPHY THORAX W/O Elke Cruz MD [address] [place] [address] [facility] [place] [address] Referral IDStatusReasonStart DateExpiration DateVisits RequestedVisits [id number] Auto-Generated Referral /[id number] / ProceduresReferred By ContactReferred To ContactADMITTING Diagnoses Bronchiolar disease Procedures [facility] INCL FLUOR GDNCE DX W/CELL WASHG SPX BRONCHOSCOPY [facility] [address] [place] [address] Referral IDStatusReasonStart DateExpiration DateVisits RequestedVisits [id number] and Neck CancerFollow upReasonCommentsNew ReasonCommentsOropharnyx cancerOTVReasonCommentsCancer1 month checkReason CommentsOropharnyx cancerOTVReasonCommentsCare CoordinationThyroid medication SpecialtyDiagnoses / ProceduresReferred By ContactReferred To Contact Diagnoses Oropharnyx cancer (HCC) Procedures INJ PEMBROLIZUMAB Elizabeth Borjas MD [address] [place] [address] [address]ilario Treat [address] [place] [address] Referral IDStatusReasonStbattery park DateExpiration DateVisits RequestedVisits [id number]/7/20249/[id number] / Procedures Referred By ContactReferred To Contact Diagnoses Oropharnyx cancer (HCC) Procedures INJ. TAGRAXOFUSP-ERZS 10 MCG CARBOPLATIN INJECTION PALONOSETRON HCL INJ PEMBROLIZUMAB FOSAPREPITANT INJECTION Elizabeth Borjas MD [address] [place] [address] Hilario Treat [employer] [address] [place] [address] Referral IDStatusReasonStart DateExpiration DateVisits RequestedVisits [id number] Patient Cleared - Admin/Identity Management Developer/Director advise to proceed or did not respond /[id number] cancerReasonCommentsOrdersReason Commentsoropharynx cancerTreatment visitSpecialtyDiagnoses / ProceduresReferred By ContactReferred To ContactEndocrinology Diagnoses Adrenal insufficiency (HCC) Procedures CONSULT TO ENDOCRINOLOGY OFFICE/OUTPATIENT [facility] 60 MINUTES Tremaine Gomez PA-C [address] [place] [address] [place] [address] Referral IDStatusReasonStart DateExpiration DateVisits RequestedVisits [id number] PCP Requested Referral /[id number]cc SchedulingReasonCommentsPre-Op VisitReasonCommentsNoduleReasonCommentsFuture AppointmentReasonCommentsRadiology CTSpecialtyDiagnoses / ProceduresReferred By ContactReferred To ContactCT IMAGING Diagnoses Oropharnyx cancer (HCC) Malaise and fatigue Thunderclap headache Procedures CT CHEST W IVCON DIAGNOSTIC COMPUTED TOMOGRAPHY THORAX W/CONTRAST Tremaine Gomez PA-C [address] [place] [address] [place] [address] [place] [address] Referral IDStatusReasonStart DateExpiration DateVisits RequestedVisits [id number] Auto-Generated Referral /[id number] DateCommentsSimulation Request Form06/13/2024 Referral IDStatusReasonStart DateExpiration DateVisits RequestedVisits [id number]/7/20243/[id number] / Procedures Referred By ContactReferred To ContactCT IMAGING Diagnoses Oropharnyx cancer (HCC) Procedures CT CHEST W IVCON DIAGNOSTIC COMPUTED TOMOGRAPHY THORAX W/CONTRAST Elizabeth Borjas MD [address] [place], [place] [address] [facility] [place] [address] Referral IDStatusReasonStart DateExpiration DateVisits RequestedVisits [id number] Auto-Generated Referral /[id number] NMSpecialtyDiagnoses / Procedures Referred By ContactReferred To ContactMOLECULAR & FUNCTIONAL IMAGING Diagnoses Neoplasm of lung Procedures NM PET/CT SKULL-THIGH INITIAL PET IMAGING CT ATTENUATION SKULL BASE MID-THIGH Elizabeth Borjas MD [address] [place], [place] [address] Molecular & Functional Imaging [address] [place] [address] Referral IDStatusReasonStart DateExpiration DateVisits RequestedVisits [id number] Auto-Generated Referral /[id number] / ProceduresReferred By ContactReferred To ContactCT IMAGING Diagnoses Oropharnyx cancer (HCC) Procedures CT CHEST WO IVCON DIAGNOSTIC COMPUTED TOMOGRAPHY THORAX W/O CNTRST Elizabeth Borjas MD [address] [place], [place] [address] [facility] [place] [address] Referral IDStatusReasonStart DateExpiration DateVisits RequestedVisits [id number] Auto-Generated Referral /[id number] / ProceduresReferred By ContactReferred To ContactMOLECULAR & FUNCTIONAL IMAGING Diagnoses Oropharnyx cancer (HCC) Procedures NM PET/CT SKULL-THIGH SUBSEQUENT PET IMAGING CT ATTENUATION SKULL BASE MID-THIGH Tremaine Gomez PA-C [address] [place] [address] [facility] [address] [place] [address] Referral IDStatusReasonStart DateExpiration DateVisits RequestedVisits [id number] Auto-Generated Referral /[id number]UnogcbonfOdxafzktd / Procedures Referred By ContactReferred To 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) Procedures LUNG DIFFUSION CAPACITY (DLCO) DIFFUSING CAPACITY Tayla Ellsworth MD [address] [place] [address] [place] [address] Referral IDStatusReasonCicero DateExpiration DateVisits RequestedVisits [id number] Auto-Generated Referral [id number] / ProceduresReferred By ContactReferred To [facility] Diagnoses Oropharnyx cancer (HCC) Procedures NM PET/CT SKULL-THIGH INITIAL PET IMAGING CT ATTENUATION SKULL BASE MID-THIGH Nino Ivy MD [address] [place] [address] [place] [address] Molecular & Functional Imaging [address] [place] [address] Referral IDStatusReasonStart DateExpiration DateVisits RequestedVisits [id number] Auto-Generated Referral /[id number] / ProceduresReferred By ContactReferred To ContactRadiation Oncology / RADIATION ONCOLOGY Diagnoses Malignant neoplasm of base of tongue SIM/LEROY/ Head & Neck Procedures INTENSITY MODULATED RADIATION TX DLVR COMPLEX SIMULATION SERVANDO IMRT 35 fractions Nino Ivy MD [address] [place] [place] [address] Nino Ivy MD [address] [place] [address] [place] [address] Referral IDStatusReasonStart DateExpiration DateVisits RequestedVisits [id number]/6/20235/[id number] month check up Squamous cell cancer of tongueReasonCommentsCancer1 month check Squamous cell cancer of tongueReasonCommentsOropharynx cancerOTVReasonCommentsCancer1 mo check SpecialtyDiagnoses / ProceduresReferred By ContactReferred To ContactCT IMAGING Diagnoses Neoplasm of lung Procedures CT CHEST WO IVCON DIAGNOSTIC COMPUTED TOMOGRAPHY THORAX W/[place] [address] [place] [address] [place] [address] Referral IDStatusReasonStart DateExpiration DateVisits RequestedVisits [id number] Auto-Generated Referral /[id number] month checkReasonCommentsEstablished PatientReferral IDStatusReasonStart DateExpiration DateVisits RequestedVisits [id number]/7/202412/[id number]v PatientRadiotherapy Follow-upReasonCommentsFollow UpReasonCommentsThyroid ProblemReasonCommentsMed Change RequestReasonCommentsCancer3 month check SpecialtyDiagnoses / ProceduresReferred By ContactReferred To ContactCT IMAGING 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) Procedures CT ABDOMEN W IVCON [place] ABDOMEN [place] [address] [place] [address] Phone: tel: fax: [facility] [place] [address] Referral IDStatusReasonStart DateExpiration DateVisits RequestedVisits [id number] Auto-Generated Referral /[id number]/letterReasonCommentsMalignant neoplasm of base of tongueTreatment visitReasonCommentsRadiology CTSpecialtyDiagnoses / ProceduresReferred By ContactReferred To ContactCT IMAGING Diagnoses Malignant neoplasm of unspecified part of unspecified bronchus or lung (HCC) Procedures CT CHEST W IVCON DIAGNOSTIC COMPUTED TOMOGRAPHY THORAX W/CONTRAST Tayla Ellsworth MD [address] [place] [address] Phone: tel: fax: [facility] [place] [address] Referral IDStatusReasonStart DateExpiration DateVisits RequestedVisits [id number] Auto-Generated Referral [id number] (unrecognized sect ion and content) No Status Records FoundNo Status Records FoundNo Status Records FoundNo Status Records FoundNo Status Records FoundNo Status Records Found INFORMATION SOURCE (unrecogn ized section and content) DATE CREATED AUTHOR 12/17/2022 [facility] DATE CREATED AUTHOR AUTHOR'S ORGANIZ ATION 04/25/2024 [facility] DATE CREATED AUTHOR AUTHOR'S ORGANIZ ATION 05/28/2024 [facility] DATE CREATED AUTHOR AUTHOR'S ORGANIZ ATION 06/29/2025 [facility] DATE CREATED AUTHOR AUTHOR'S ORGANIZ ATION 08/03/2025 [facility] DATE CREATED AUTHOR AUTHOR'S ORGANIZ ATION 08/19/2025 [facility] Goals (unrecognized section and content) Goals may be documented in a n alternate section Inactive Administered Medications - up to 3 most recent administrations Administered Medications (un recognized section and content) Medication OrderMAR ActionAction DateDoseRateSite pembrolizumab 200 mg in NaCl 0.9% 66 mL (KEYTRUDA) 200 mg, INTRAVENOUS, Administer over 30 Minutes, ONCE, 1 dose, On Mon01/02/24 at 1030, Approx TotalVolume: 66 mL EXP: 01/02/2024 1615 RT Administer with 0.2 micron filter. New Bag/Syringe/Prstxa2001/02/2024 10:47 AM [id number] mg FOR RECORDS PERTAINING TO PATIENTS WHO [...] BE BASED ON THE PRIMARY CLINICAL RECORDS. [facility]. provides no warranty or guarantee of the accuracy or completeness of information in this document.
== END 2025-09-02 16:01 | disposition home or self-care (01) ==
LOC: MRI 16:00
PROVIDERS: PCP Family Medicine; Visit Provider Internal Medicine Hematology & Oncology
DX: C79.31 Secondary malignant neoplasm of brain (principal)
CPT/HCPCS: 70030; 70553; A9575